=== PATIENT | male | born 1960 | race Two or more races ===

== ENCOUNTER 2024-12-30 14:53 | Outpatient (REF) | payer OTHER, SELFPAY ==
[2024-12-30 16:25] LABS: MANUAL DIFF FLAG NO
[2024-12-30 17:13] LABS: Basophils Absolute Auto 0.1 X10*3/uL (0.0-0.2); Basophils Percent Auto 1.2 % (0-2); Eosinophils Absolute Auto 0.1 X10*3/uL (0.0-0.4); Eosinophils Percent Auto 1.9 % (0-4); Hematocrit 25.7 % (42.0-52.0); Hemoglobin 8.2 g/dl (14.0-18.0); Imm Gran Abs Auto 0.02 X10*3/uL (0.00-0.03); Imm Gran Pct Auto 0.3 % (0.0-0.4); Lymphocytes Absolute Auto 1.4 X10*3/uL (1.2-4.9); Lymphocytes Percent Auto 19.9 % (20-40); Mean Corpuscular HGB Conc 31.9 g/dl (31.0-36.0); Mean Corpuscular Volume 90.8 fL (80.0-98.0); Mean Platelet Volume 10.1 fL (9.4-12.4); Monocytes Absolute Auto 0.4 X10*3/uL (0.1-1.2); Monocytes Percent Auto 5.9 % (2-11); Neutrophils Absolute Auto 5.1 x10*3/uL (2.0-8.3); Neutrophils Percent Auto 70.8 % (45-73); Platelet Count 202 X10*3/uL (160-400); Red Blood Count 2.83 X10*6/uL (4.60-5.80); Red Cell Distribution Width 14.7 % (11.0-16.0); White Blood Count 7.2 X10*3/uL (4.8-10.8)
[2024-12-30 18:19] LABS: Anion Gap 11 (12-20); Blood Urea Nitrogen 33 mg/dL (9-16); Calcium 8.4 mg/dL (8.4-10.2); Carbon Dioxide 24 mmol/L (22-29); Chloride 107 mmol/L (96-108); Estimated Glomerular Filt Rate 23; Iron 49 mcg/dL (45-160); Percent Iron Saturation 29 % (15-50); Phosphorus 3.3 mg/dL (2.7-4.5); Potassium 3.6 mmol/L (3.3-5.1); Sodium 138 mmol/L (135-145); Total Iron Binding Capacity 167 mcg/dL (228-428); Unsaturated Iron Binding 118 ug/dL
[2024-12-30 18:33] LABS: Ferritin 91 ng/mL (20-250)
[2024-12-30 20:21] LABS: Parathyroid Hormone Intact 345.1 pg/mL (8.7-77.1)
[2024-12-31 03:52] LABS: HBc Num1 0.08 S/CO (0.00-0.79); HBsAGNum1 0.31 S/CO (0.00-0.99); Hepatitis B Core Antibody Nonreactive (Nonreactive); Hepatitis B Surface Antigen Negative (Negative)
== END 2024-12-30 14:54 | disposition home or self-care (01) ==
LOC: HO.LAB 14:53
PROVIDERS: PCP Internal Medicine; Visit Provider Internal Medicine Nephrology
DX: N18.4 Chronic kidney disease, stage 4 (severe) (principal); N25.81 Secondary hyperparathyroidism of renal origin; I15.0 Renovascular hypertension; D63.1 Anemia in chronic kidney disease
CPT/HCPCS: 36415; 80051; 82306; 82310; 82565; 82728; 83540; 83970; 84100; 84520; 85025; 86704; 87340; 99202

== ENCOUNTER 2024-12-30 14:53 | Outpatient (AMB) | payer MEDICARE, SELFPAY ==
--- NOTE | 2024-12-30 15:15 | HO.NEPHOV ---
Vital Signs 12/30/24 15:22 Height 6 ft Weight 178 lb BMI 24.1 BP 130/60 Blood Pressure Location Lt brachial Position Sitting Pulse 54 Pulse Source Pulse Oximeter Pulse Oximetry (%) 97 Oxygen Delivery Method Room Air Intake Visit Reasons: CARLI- Okay per -Zia Mathematics Technician Required: No Accompanied by: Significant Other Allergies morphine Allergy (Verified 12/30/24 15:19) Hallucinations bupropion Adverse Reaction (Verified 12/30/24 15:19) Hallucinations HPI Comments Details: I had the pleasure of seeing Mr. Hinson in consultation and transfer of his renal care to me. He has extensive vascular disease healing multiple vascular surgeries as well as right BKA. He has longstanding diabetes with complications including neuropathy, diabetic retinopathy. He has history of hepatitis C secondary to tattoos. He has longstanding hypertension and is on multiple antihypertensive medications. He denies any chest pain, shortness of breath, paroxysmal nocturnal dyspnea, orthopnea, orthostatic symptoms, microscopic hematuria, history of malignancy, recurrent sinusitis, sore throat, hematemesis, melena, urinary symptoms. His serum creatinine has been progressively getting worse and lately it has been close to 3.2. He is tolerating Farxiga well. He tries to maintain good hydration and avoid nonsteroidal anti-inflammatories. He claims to be compliant with his medications [facility] Medical History (Updated 01/16/25 @ 21:48 by Donell Ruiz MD) Urinary urgency Urinary tract infection Urinary hesitancy Tubular adenoma of colon Smoker Seborrheic keratoses SND (sensorineural deafness) Right BKA infection Peripheral vascular disease WENDY (obstructive sleep apnea) Microalbuminuria Lung nodule seen on imaging study Lightheadedness Latent tuberculosis LVH (left ventricular hypertrophy) Abnormal PFTs Hyponatremia Hypertensive retinopathy of both eyes Hyperkalemia Hepatitis C Hearing loss of both ears Hypertension Erectile dysfunction Cataract CKD (chronic kidney disease) Bladder wall thickening BPH (benign prostatic hyperplasia) Anticoagulated Anemia Peripheral neuropathy Diabetes mellitus, type II CVA (cerebral vascular accident) Adrenal nodule Kidney cysts Surgical History Hx of right BKA Family History (Updated 12/30/24 @ 15:17 by Isabel Song MA) Brother Diabetes Mother Diabetes Father Diabetes Social History (Updated 12/30/24 @ 15:16 by Isabel Song MA) Alcohol intake: never Patient Tobacco Use Status: Current someday Tobacco user Review of Systems Const All systems reviewed & are unremarkable except as noted in HPI and below Physical Exam Vital Signs: Last Vital Signs Pulse 54 12/30/24 15:22 BP 130/60 12/30/24 15:22 Pulse Ox 97 12/30/24 15:22 Oxygen Delivery Method Room Air 12/30/24 15:22 BMI result Body Mass Index 24.1 Const General: comfortable and no acute distress Orientation/consciousness: patient oriented x3 HEENT Head: Yes normocephalic Mouth: Normal oral and palatal mucosa present Eyes EOM: EOMs intact bilaterally Neck Neck: Yes supple Resp Auscultation: clear to auscultation bilaterally Cardio Jugular venous distension: no JVD Rate: regular rate GI Palpation (GI): Soft to palpation Auscultation: normal bowel sounds General: Yes no CVA tenderness Back/Spine/Pelvis Back: no CVA tenderness Skin General skin exam: no rashes or lesions noted Neuro General: patient oriented x3 and moves all extremities Extrem Other: R BKA Results Reviewed Nephrology Results: Hgb 8.2 g/dl (14.0-18.0) L 12/30/24 WBC 7.2 X10*3/uL (4.8-10.8) 12/30/24 Plt Count 202 X10*3/uL (160-400) 12/30/24 Sodium 138 mmol/L (135-145) 12/30/24 Potassium 3.6 mmol/L (3.3-5.1) 12/30/24 Chloride 107 mmol/L (96-108) 12/30/24 Carbon Dioxide 24 mmol/L (22-29) 12/30/24 BUN 33 mg/dL (9-16) H 12/30/24 Creatinine 2.83 mg/dL (0.5-1.4) H 12/30/24 Calcium 8.4 mg/dL (8.4-10.2) 12/30/24 Phosphorus 3.3 mg/dL (2.7-4.5) 12/30/24 PTH Intact 345.1 pg/mL (8.7-77.1) H 12/30/24 Assessment & Plan Assessment & Plan (1) CKD (chronic kidney disease) stage 4, GFR 15-29 ml/min: Code(s): N18.4 - Chronic kidney disease, stage 4 (severe) Category: Medical (2) Secondary hyperparathyroidism (of renal origin): Code(s): N25.81 - Secondary hyperparathyroidism of renal origin Category: Medical (3) Hypertension: Code(s): I10 - Essential (primary) hypertension Category: Medical Qualifiers: Hypertension type: renovascular hypertension Qualified Code(s): I15.0 - Renovascular hypertension (4) Anemia in chronic kidney disease (CKD): Code(s): N18.9 - Chronic kidney disease, unspecified; D63.1 - Anemia in chronic kidney disease Category: Medical Qualifiers: Chronic kidney disease stage: stage 4 (GFR 15-29) Qualified Code(s): N18.4 - Chronic kidney disease, stage 4 (severe); D63.1 - Anemia in chronic kidney disease Plan Mr Hinson has advanced chronic kidney disease from diabetes, hypertension as well as vascular disease. His renal disease has been progressive and has a GFR close to 20 mL/minute. He is aware that he needs to go on dialysis when GFR gets close to 10 mL/minute. He is tolerating Farxiga well. His blood pressure is at goal. His volume status is optimal. He is tolerating his sodium bicarbonate. He is on potassium lowering agents. He should remain on low potassium diet. I shall initiate him on activated vitamin-D after replacing vitamin-D. He is a candidate for Procrit which I plan to arrange through my office. His serum creatinine is fairly stable. I shall arrange to have a dialysis access put in , when his GFR is consistently under 20 mL/minute. Currently he does not have any uremic symptoms. He is also closely followed up by [facility] vascular service. Further management is pending evolving data. All his and his 's questions were answered. Follow-up appointment given Orders: Orders Complete Blood Count Auto Diff 12/30/24 N18.4 - Chronic kidney disease, stage 4 (severe) Phosphorus 12/30/24 N18.4 - Chronic kidney disease, stage 4 (severe) Calcium 12/30/24 N18.4 - Chronic kidney disease, stage 4 (severe) Electrolytes 12/30/24 N18.4 - Chronic kidney disease, stage 4 (severe) Blood Urea Nitrogen 12/30/24 N18.4 - Chronic kidney disease, stage 4 (severe) Creatinine 12/30/24 N18.4 - Chronic kidney disease, stage 4 (severe) IRON PROFILE 12/30/24 N18.4 - Chronic kidney disease, stage 4 (severe) Vitamin D 25-OH Total 12/30/24 N18.4 - Chronic kidney disease, stage 4 (severe) Hepatitis B Surface Antigen 12/30/24 N18.4 - Chronic kidney disease, stage 4 (severe) Hepatitis B Core Antibody 12/30/24 N18.4 - Chronic kidney disease, stage 4 (severe) Parathyroid Hormone Intact 12/30/24 N18.4 - Chronic kidney disease, stage 4 (severe) Ferritin 12/30/24 N18.4 - Chronic kidney disease, stage 4 (severe) Coding Level of Care Code New Pt Level 4 (41607) Diagnoses CKD (chronic kidney disease) stage 4, GFR 15-29 ml/min N18.4 Secondary hyperparathyroidism (of renal origin) N25.81 Renovascular hypertension I15.0 Hypertension type: renovascular hypertension Anemia in stage 4 chronic kidney disease N18.4; D63.1 Chronic kidney disease stage: stage 4 (GFR 15-29)
[2024-12-30 15:22] VITALS: BP 130/60; PULSE 54; O2SAT 97; BMI 24.1
== END 2024-12-30 15:42 | disposition home or self-care (01) ==
LOC: HO.HKA 14:53
PROVIDERS: PCP Internal Medicine; Visit Provider Internal Medicine Nephrology
DX: E11.22 Type 2 diabetes mellitus with diabetic chronic kidney disease (principal); N18.4 Chronic kidney disease, stage 4 (severe); N25.81 Secondary hyperparathyroidism of renal origin; D63.1 Anemia in chronic kidney disease; I15.0 Renovascular hypertension
CPT/HCPCS: 99204

== ENCOUNTER 2025-02-01 14:03 | Outpatient (AMB) | payer MEDICARE, SELFPAY ==
[2025-02-01 14:08] VITALS: BP 140/60; PULSE 58; O2SAT 98; BMI 24.1
--- NOTE | 2025-02-01 14:08 | HO.NEPHOV ---
Vital Signs 02/01/25 14:08 Height 6 ft Weight 178 lb BMI 24.1 BP 140/60 H Blood Pressure Location Rt brachial Position Sitting Pulse 58 Pulse Source Pulse Oximeter Pulse Oximetry (%) 98 Oxygen Delivery Method Room Air Intake Visit Reasons: R/S 01/27/2025-Conf Spinning Bath Patroller Required: No Accompanied by: Self / Same As Patient Allergies morphine Allergy (Verified 02/01/25 14:08) Hallucinations bupropion Adverse Reaction (Verified 02/01/25 14:08) Hallucinations HPI Comments Details: I had the pleasure of seeing Mr. Hinson in follow up of his CKD. He has extensive vascular disease healing multiple vascular surgeries as well as right BKA. He has longstanding diabetes with complications including neuropathy, diabetic retinopathy. He has history of hepatitis C secondary to tattoos. He has longstanding hypertension and is on multiple antihypertensive medications. He denies any chest pain, shortness of breath, paroxysmal nocturnal dyspnea, orthopnea, orthostatic symptoms, microscopic hematuria, history of malignancy, recurrent sinusitis, sore throat, hematemesis, melena, urinary symptoms. His serum creatinine has been progressively getting worse and lately it has been stable at 2.83. He is tolerating Farxiga well. He tries to maintain good hydration and avoid nonsteroidal anti-inflammatories. He claims to be compliant with his medications [facility] Medical History (Updated 02/01/25 @ 14:20 by Donell Ruiz MD) Urinary urgency Urinary tract infection Urinary hesitancy Tubular adenoma of colon Smoker Seborrheic keratoses SND (sensorineural deafness) Right BKA infection Peripheral vascular disease WENDY (obstructive sleep apnea) Microalbuminuria Lung nodule seen on imaging study Lightheadedness Latent tuberculosis LVH (left ventricular hypertrophy) Abnormal PFTs Hyponatremia Hypertensive retinopathy of both eyes Hyperkalemia Hepatitis C Hearing loss of both ears Hypertension Erectile dysfunction Cataract CKD (chronic kidney disease) Bladder wall thickening BPH (benign prostatic hyperplasia) Anticoagulated Anemia Peripheral neuropathy Diabetes mellitus, type II CVA (cerebral vascular accident) Adrenal nodule Kidney cysts Surgical History Hx of right BKA Family History Brother Diabetes Mother Diabetes Father Diabetes Social History (Reviewed 02/01/25 @ 14:08 by KWADWO Salgado Alcohol intake: never Patient Tobacco Use Status: Current someday Tobacco user Review of Systems Const All systems reviewed & are unremarkable except as noted in HPI and below Physical Exam Vital Signs: Last Vital Signs Pulse 58 02/01/25 14:08 BP 140/60 H 02/01/25 14:08 Pulse Ox 98 02/01/25 14:08 Oxygen Delivery Method Room Air 02/01/25 14:08 BMI result Body Mass Index 24.1 Const General: comfortable and no acute distress Orientation/consciousness: patient oriented x3 HEENT Head: Yes normocephalic Mouth: Normal oral and palatal mucosa present Eyes EOM: EOMs intact bilaterally Neck Neck: Yes supple Resp Auscultation: clear to auscultation bilaterally Cardio Jugular venous distension: no JVD Rate: regular rate GI Palpation (GI): Soft to palpation Auscultation: normal bowel sounds General: Yes no CVA tenderness Back/Spine/Pelvis Back: no CVA tenderness Skin General skin exam: no rashes or lesions noted Neuro General: patient oriented x3 and moves all extremities Office Meds epoetin delbert-epbx 10,000 unit/mL injection solution Performing Provider: Donell Ruiz MD Performing Location: [facility] [place] [facility] Administered by: Donell Ruiz MD on 02/01/25 14:21 Dose Route Admin Location Dispensed Lot Number Expiration Date [facility] Public [employer] Dietitian 20,000 unit subcut LUE 2 mL [id number] 04/04/26 6975-6223-58 [employer] Results Reviewed Nephrology Results: Hgb 8.2 g/dl (14.0-18.0) L 12/30/24 WBC 7.2 X10*3/uL (4.8-10.8) 12/30/24 Plt Count 202 X10*3/uL (160-400) 12/30/24 Sodium 138 mmol/L (135-145) 12/30/24 Potassium 3.6 mmol/L (3.3-5.1) 12/30/24 Chloride 107 mmol/L (96-108) 12/30/24 Carbon Dioxide 24 mmol/L (22-29) 12/30/24 BUN 33 mg/dL (9-16) H 12/30/24 Creatinine 2.83 mg/dL (0.5-1.4) H 12/30/24 Calcium 8.4 mg/dL (8.4-10.2) 12/30/24 Phosphorus 3.3 mg/dL (2.7-4.5) 12/30/24 PTH Intact 345.1 pg/mL (8.7-77.1) H 12/30/24 Assessment & Plan Assessment & Plan (1) Secondary hyperparathyroidism (of renal origin): Code(s): N25.81 - Secondary hyperparathyroidism of renal origin Category: Medical (2) CKD (chronic kidney disease) stage 4, GFR 15-29 ml/min: Code(s): N18.4 - Chronic kidney disease, stage 4 (severe) Category: Medical (3) Hypertension: Code(s): I10 - Essential (primary) hypertension Category: Medical Qualifiers: Hypertension type: renovascular hypertension Qualified Code(s): I15.0 - Renovascular hypertension (4) Anemia in chronic kidney disease (CKD): Code(s): N18.9 - Chronic kidney disease, unspecified; D63.1 - Anemia in chronic kidney disease Category: Medical Qualifiers: Chronic kidney disease stage: stage 4 (GFR 15-29) Qualified Code(s): N18.4 - Chronic kidney disease, stage 4 (severe); D63.1 - Anemia in chronic kidney disease (5) Vitamin D deficiency: Code(s): E55.9 - Vitamin D deficiency, unspecified Category: Medical Plan Mr Hinson has advanced chronic kidney disease from diabetes, hypertension as well as vascular disease. His renal disease has been progressive and has a GFR close to 20 mL/minute. He is aware that he needs to go on dialysis when GFR gets close to 10 mL/minute. He is tolerating Farxiga well. His blood pressure is at goal. His volume status is optimal. He is tolerating his sodium bicarbonate. He is on potassium lowering agents. He should remain on low potassium diet. I started him on Vitamin D 16826 U once a week. I shall initiate him on activated vitamin-D after replacing vitamin-D. He gave him 00952 U Procrit today my office. His serum creatinine is fairly stable. I shall arrange to have a dialysis access put in , when his GFR is consistently under 20 mL/minute. Currently he does not have any uremic symptoms. He is also closely followed up by [facility] vascular service. Further management is pending evolving data. All his and his 's questions were answered. Follow-up appointment given Orders: Orders AMB Epoetin Injection Practice Supplied Today D63.1 - Anemia in chronic kidney disease, N18.4 - Chronic kidney disease, stage 4 (severe) Blood Urea Nitrogen 4 Weeks D63.1 - Anemia in chronic kidney disease, E55.9 - Vitamin D deficiency, unspecified, I15.0 - Renovascular hypertension, N18.4 - Chronic kidney disease, stage 4 (severe), N25.81 - Secondary hyperparathyroidism of renal origin Complete Blood Count Auto Diff 4 Weeks D63.1 - Anemia in chronic kidney disease, E55.9 - Vitamin D deficiency, unspecified, I15.0 - Renovascular hypertension, N18.4 - Chronic kidney disease, stage 4 (severe), N25.81 - Secondary hyperparathyroidism of renal origin Creatinine 4 Weeks D63.1 - Anemia in chronic kidney disease, E55.9 - Vitamin D deficiency, unspecified, I15.0 - Renovascular hypertension, N18.4 - Chronic kidney disease, stage 4 (severe), N25.81 - Secondary hyperparathyroidism of renal origin Electrolytes 4 Weeks D63.1 - Anemia in chronic kidney disease, E55.9 - Vitamin D deficiency, unspecified, I15.0 - Renovascular hypertension, N18.4 - Chronic kidney disease, stage 4 (severe), N25.81 - Secondary hyperparathyroidism of renal origin Coding Level of Care Code Est Pt Level 4 (13131) Diagnoses Secondary hyperparathyroidism (of renal origin) N25.81 CKD (chronic kidney disease) stage 4, GFR 15-29 ml/min N18.4 Renovascular hypertension I15.0 Hypertension type: renovascular hypertension Anemia in stage 4 chronic kidney disease N18.4; D63.1 Chronic kidney disease stage: stage 4 (GFR 15-29) Vitamin D deficiency E55.9
--- OUTSIDE RECORDS SUMMARY | 2025-02-01 15:16 | XMS_ITS | Encounter Summary ---
Author Organization [facility] [address] Address [address] [place] [address] Care Team Providers Care Conflict Resolution Professional Name Role Phone Travis Au MD Primary Care Provider [phone] Encounter Details Date Type Department Care Team (Late st Contact Info) Description 09/13/2024 Lab Requisition [facility] - Main Lab [address] [facility] [place] [address] Travis Au MD [address] [place] [address] [address] [facility] [phone] Chronic kidney disease, unspecified Social History Tobacco Use Types Packs/Day Years Used Date Smoking Tobacco: Never Assessed Sex and Gender Information Value Date Recorded Sex Assigned at Not on file Legal Sex Male 9:08 PM EST Gender Identity Not on file Sexual Orientation Not on file documented as of this encounter Plan of Treatment Not on file documented as of this encounter Visit Diagnoses Diagnosis Chronic kidney disease, unspecified documented in this encounter Care Teams Conflict Resolution Professional Relationship Specialty Start Date End Date Travis Au MD [address] [facility] [address] [facility] [phone] PCP - General Family Medicine 08/22/24 documented as of this encounter
--- OUTSIDE RECORDS SUMMARY | 2025-02-01 15:16 | XMS_ITS | Encounter Summary ---
Author Organization [facility] Address [address] [place] [address] Care Team Providers Care Eastern Philosophy Professor Name Role Phone Travis Au MD Primary Care Provider [phone] Encounter Details Date Type Department Care Team (Latest Contact Info) Description 10/25/2024 Lab Requisition [facility] - Main Lab [address] [facility] [place] [address] Brandon Mckeon MD [address] [place] [address] Type 2 diabetes mellitus without complications (CMS/HCC V24, CMS/HCC V28) Social History Tobacco Use Types Packs/Day Years Used Date Smoking Tobacco: Never Assessed Sex and Gender Information Value Date Recorded Sex Assigned at Not on file Legal Sex Male 9:08 PM EST Gender Identity Not on file Sexual Orientation Not on file documented as of this encounter Plan of Treatment Not on file documented as of this encounter Visit Diagnoses Diagnosis Type 2 diabetes mellitus without complications (CMS/HCC V24, CMS/HCC V28) documented in this encounter Care Teams Eastern Philosophy Professor Relationship Specialty Start Date End Date Travis Au MD [address] [facility] [address] [place], [phone] PCP - General Family Medicine 08/22/24 documented as of this encounter
--- OUTSIDE RECORDS SUMMARY | 2025-02-01 15:16 | XMS_ITS | Encounter Summary ---
Author Organization [facility], Address [address] [place] [address] Phone Care Team Providers Care Shop Repairer Name Role Phone Michelle Long MD Primary Care Provider [phone] Reason for Visit * Reason Comments Med Refill Encounter Details Date Type Department Care Team (Late st Contact Info) Description 01/01/2025 Refill [facility], [address] [place] [address] Phill Mc MD [address] [facility] [place] [id number] Social History Tobacco Use Types Packs/Day Years Used Date Smoking Tobacco: Former Smokeless Tobacco: Never Sex and Gender Information Value Date Recorded Sex Assigned at Not on file Legal Sex Male 2:06 PM EST Gender Identity Not on file Sexual Orientation Not on file documented as of this encounter Plan of Treatment Not on file documented as of this encounter Visit Diagnoses Not on filedocumented in this encounter Care Teams Shop Repairer Relationship Specialty Start Date End Date Michelle Long MD [address] [place] [address] PCP - General Internal Medicine 10/06/23 documented as of this encounter
--- OUTSIDE RECORDS SUMMARY | 2025-02-01 15:16 | XMS_ITS | Encounter Summary ---
Author Organization [facility] Address [address] [place] [address] Care Team Providers Care Surveillance Investigator Name Role Phone Travis Au MD Primary Care Provider [phone] Encounter Details Date Type Department Care Team (Late st Contact Info) Description 08/22/2024 Lab Requisition [facility] - Main Lab [address] [facility] [place] [address] Travis Au MD [address] [place] [address] [address] [facility] [phone] Type 2 diabetes mellitus without complications (CMS/HCC V24, CMS/HCC V28); Unspecified atrial fibrillation (CMS/HCC V24, CMS/HCC V28) Social History Tobacco Use Types Packs/Day Years Used Date Smoking Tobacco: Never Assessed Sex and Gender Information Value Date Recorded Sex Assigned at Not on file Legal Sex Male 9:08 PM EST Gender Identity Not on file Sexual Orientation Not on file documented as of this encounter Plan of Treatment Not on file documented as of this encounter Procedures Procedure Name Priority Date/Time Associated Diagnosis Comments CBC WITH AUTO DIFFERENTIAL Routine 08/22/2024 5:16 AM EST Type 2 diabetes mellitus without complications (CMS/HCC) Unspecified atrial fibrillation (CMS/HCC) CBC AND DIFFERENTIAL Routine 08/22/2024 5:16 AM EST Type 2 diabetes mellitus without complications (CMS/HCC) Unspecified atrial fibrillation (CMS/HCC) HEMOGLOBIN A1C Routine 08/22/2024 5:16 AM EST Type 2 diabetes mellitus without complications (CMS/HCC) Unspecified atrial fibrillation (CMS/HCC) COMPREHENSIVE METABOLIC PANEL Routine 08/22/2024 5:16 AM EST Type 2 diabetes mellitus without complications (CMS/HCC) Unspecified atrial fibrillation (CMS/HCC) documented in this encounter Results * Hemoglobin A1c (08/22/2024 5:16 AM EST) [facility] Hemoglobin A1C 6.4 <6.5 % LAB CHEMISTRY METHOD 08/23/2024 7:38 PM EST [facility] Mean Bld Glu Estim. 137 mg/dL LAB CHEMISTRY METHOD 08/23/2024 7:38 PM EST [facility] Blood Venous blood specimen / Unknown 08/22/2024 5:16 AM EST 08/22/2024 7:59 AM EST us Travis Au MD LAB BLOOD ORDERABLES Final Resul t [facility] [address] [place] [address], [place] [phone] * (ABNORMAL) CBC auto differential (08/22/2024 5:16 AM EST) [facility] WBC 7.0 4.8 - 10.8 K/mcL LAB HEMETOLOGY METHOD 08/22/2024 8:13 AM [facility] LAB RBC 3.30(L) 4.50 - 5.50 M/[facility] LAB HEMETOLOGY METHOD 08/22/2024 8:13 AM [facility] Hemoglobin 9.8(L) 13.5 - 17.5 g/dL LAB HEMETOLOGY METHOD 08/22/2024 8:13 AM [facility] Hematocrit 31.2(L) 42.0 - 54.0 % LAB HEMETOLOGY METHOD 08/22/2024 8:13 AM [facility] MCV 94.8 79.0 - 98.0 FL LAB HEMETOLOGY METHOD 08/22/2024 8:13 AM [facility] MCH 29.8 27.0 - 32.0 pcg LAB HEMETOLOGY METHOD 08/22/2024 8:13 AM [facility] LAB MCHC 31.4(L) 32.0 - 37.0 g/dL LAB HEMETOLOGY METHOD 08/22/2024 8:13 AM [facility] RDW 13.2 11.0 - 15.0 % LAB HEMETOLOGY METHOD 08/22/2024 8:13 AM [facility] Platelets 232 130 - 400 K/mcL LAB HEMETOLOGY METHOD 08/22/2024 8:13 AM [facility] MPV 10.9 7.0 - 11.0 FL LAB HEMETOLOGY METHOD 08/22/2024 8:13 AM [facility] NRBC 0.0 <1.0 % LAB HEMETOLOGY METHOD 08/22/2024 8:13 AM [facility] NRBC Absolute 0.00 <0.10 K/mcL LAB HEMETOLOGY METHOD 08/22/2024 8:13 AM [facility] Neutrophils Relative 61.3 % LAB HEMETOLOGY METHOD 08/22/2024 8:13 AM [facility] Lymphocytes Relative 24.5 % LAB HEMETOLOGY METHOD 08/22/2024 8:13 AM [facility] Monocytes Relative 5.9 % LAB HEMETOLOGY METHOD 08/22/2024 8:13 AM [facility] Eosinophils Relative 6.6 % LAB HEMETOLOGY METHOD 08/22/2024 8:13 AM [facility] Basophils Relative 1.3 % LAB HEMETOLOGY METHOD 08/22/2024 8:13 AM [facility] Immature Granulocytes Relative 0.4 % LAB HEMETOLOGY METHOD 08/22/2024 8:13 AM [facility] Neutrophils Absolute 4.29 1.50 - 7.00 K/mcL LAB HEMETOLOGY METHOD 08/22/2024 8:13 AM EST [facility] Lymphocytes Absolute 1.71 1.00 - 5.00 K/[facility] LAB HEMETOLOGY METHOD 08/22/2024 8:13 AM [facility] Monocytes Absolute 0.41 0.20 - 1.00 K/mcL LAB HEMETOLOGY METHOD 08/22/2024 8:13 AM EST [facility] Eosinophils Absolute 0.46 0.00 - 0.50 K/[facility] LAB HEMETOLOGY METHOD 08/22/2024 8:13 AM [facility] Basophils Absolute 0.09 0.00 - 0.20 K/[facility] LAB HEMETOLOGY METHOD 08/22/2024 8:13 AM [facility] Immature Granulocytes Absolute 0.03 0.00 - 0.03 K/[facility] LAB HEMETOLOGY METHOD 08/22/2024 8:13 AM [facility] Blood Venous blood specimen / Unknown Venipuncture / Unknown 08/22/2024 5:16 AM EST 08/22/2024 7:22 AM EST us Travis Au MD LAB BLOOD ORDERABLES Final Resul t [facility] [address] [place] [address], * (ABNORMAL) Comprehensive metabolic panel (08/22/2024 5:16 AM EST) Sodium 139 133 - 145 mmol/L LAB CHEMISTRY METHOD 08/22/2024 9:02 AM [facility] Potassium 4.2 3.5 - 5.5 mmol/L LAB CHEMISTRY METHOD 08/22/2024 9:02 AM [facility] Chloride 108 96 - 110 mmol/L LAB CHEMISTRY METHOD 08/22/2024 9:02 AM [facility] CO2 23 21 - 32 mmol/L LAB CHEMISTRY METHOD 08/22/2024 9:02 AM [facility] Anion Gap 8 3 - 11 LAB CHEMISTRY METHOD 08/22/2024 9:02 AM [facility] Glucose 116(H) 70 - 100 mg/dL LAB CHEMISTRY METHOD 08/22/2024 9:02 AM [facility] BUN 47(H) 5 - 25 mg/dL LAB CHEMISTRY METHOD 08/22/2024 9:02 AM [facility] Creatinine 3.05(H) 0.70 - 1.30 mg/dL LAB CHEMISTRY METHOD 08/22/2024 9:02 AM [facility] eGFR 22(L) >=60 mL/min/1. 73m2 LAB CHEMISTRY METHOD 08/22/2024 9:02 AM [facility] Comment:Calculation based on the??Chronic Kidney Disease Epidemiology Collaboration (CKD-EPI) equation refit??without adjustment for race. BUN/Creatinine Ratio 15.4 LAB CHEMISTRY METHOD 08/22/2024 9:02 AM [facility] Calcium 8.8 8.5 - 10.5 mg/dL LAB CHEMISTRY METHOD 08/22/2024 9:02 AM [facility] AST (SGOT) 13 10 - 42 unit/L LAB CHEMISTRY METHOD 08/22/2024 9:02 AM [facility] ALT (SGPT) 19 10 - 60 unit/L LAB CHEMISTRY METHOD 08/22/2024 9:02 AM [facility] Alkaline Phosphatase 80 42 - 121 unit/L LAB CHEMISTRY METHOD 08/22/2024 9:02 AM [facility] Total Protein 6.4 6.0 - 8.0 g/dL LAB CHEMISTRY METHOD 08/22/2024 9:02 AM [facility] Albumin 3.1(L) 3.2 - 5.0 g/dL LAB CHEMISTRY METHOD 08/22/2024 9:02 AM EST [facility] Total Bilirubin 0.4 0.0 - 1.4 mg/dL LAB CHEMISTRY METHOD 08/22/2024 9:02 AM EST [facility] Blood Venous blood specimen / Unknown Venipuncture / Unknown 08/22/2024 5:16 AM EST 08/22/2024 7:22 AM EST us Travis Au MD LAB BLOOD ORDERABLES Final Resul t [facility] [address] [place] [address], documented in this encounter Visit Diagnoses Diagnosis Type 2 diabetes mellitus without complications (CMS/HCC V24, CMS/HCC V28) Unspecified atrial fibrillation (CMS/HCC V24, CMS/HCC V28) documented in this encounter Care Teams Surveillance Investigator Relationship Specialty Start Date End Date Travis Au MD [address] [place] [address], [phone] PCP - General Family Medicine 08/22/24 documented as of this encounter
--- OUTSIDE RECORDS SUMMARY | 2025-02-01 15:16 | XMS_ITS | Encounter Summary ---
Author Organization [facility] Address [address] [place] [address] Care Team Providers Care Flatwork Supervisor Name Role Phone Travis Au MD Primary Care Provider [phone] Encounter Details Date Type Department Care Team (Late st Contact Info) Description 09/14/2024 Lab Requisition [facility] - Main Lab [address] [facility] [place] [address] Brandon Mckeon MD [address] [place] [address] Chronic kidney disease, unspecified Social History Tobacco [...] Procedure Name Priority Date/Time Associated Diagnosis Comments COMPLETE BLOOD COUNT Routine 09/15/2024 4:53 AM EST Chronic kidney disease, unspecified BASIC METABOLIC PANEL Routine 09/15/2024 4:53 AM EST Chronic kidney disease, unspecified documented in this encounter Results * (ABNORMAL) Basic metabolic panel (09/15/2024 4:53 AM EST) Sodium 138 133 - 145 mmol/L LAB CHEMISTRY METHOD 09/15/2024 9:37 AM EST [facility] Potassium 5.3 3.5 - 5.5 mmol/L LAB CHEMISTRY METHOD 09/15/2024 9:37 AM EST [facility] Chloride 110 96 - 110 mmol/L LAB CHEMISTRY METHOD 09/15/2024 9:37 AM [facility] CO2 19(L) 21 - 32 mmol/L LAB CHEMISTRY METHOD 09/15/2024 9:37 AM [facility] Anion Gap 9 3 - 11 LAB CHEMISTRY METHOD 09/15/2024 9:37 AM [facility] Glucose 98 70 - 100 mg/dL LAB CHEMISTRY METHOD 09/15/2024 9:37 AM [facility] BUN 46(H) 5 - 25 mg/dL LAB CHEMISTRY METHOD 09/15/2024 9:37 AM [facility] Creatinine 3.02(H) 0.70 - 1.30 mg/dL LAB CHEMISTRY METHOD 09/15/2024 9:37 AM [facility] eGFR 22(L) >=60 mL/min/1. 73m2 LAB CHEMISTRY METHOD 09/15/2024 9:37 AM [facility] Comment:Calculation based on the??Chronic Kidney Disease Epidemiology Collaboration (CKD-EPI) equation refit??without adjustment for race. BUN/Creatinine Ratio 15.2 LAB CHEMISTRY METHOD 09/15/2024 9:37 AM [facility] Calcium 8.8 8.5 - 10.5 mg/dL LAB CHEMISTRY METHOD 09/15/2024 9:37 AM [facility] Blood Venous blood specimen / Unknown Venipuncture / Unknown 09/15/2024 4:53 AM EST 09/15/2024 9:01 AM EST us Brandon Mckeon MD LAB BLOOD ORDERABLES Final Resu lt [facility] [address] [place] [address], [place] [phone] * (ABNORMAL) Complete blood count (09/15/2024 4:53 AM EST) WBC 9.2 4.8 - 10.8 K/mcL LAB HEMETOLOGY METHOD 09/15/2024 9:10 AM [facility] RBC 3.00(L) 4.50 - 5.50 M/mcL LAB HEMETOLOGY METHOD 09/15/2024 9:10 AM [facility] Hemoglobin 8.9(L) 13.5 - 17.5 g/dL LAB HEMETOLOGY METHOD 09/15/2024 9:10 AM [facility] Hematocrit 28.5(L) 42.0 - 54.0 % LAB HEMETOLOGY METHOD 09/15/2024 9:10 AM [facility] MCV 95.6 79.0 - 98.0 FL LAB HEMETOLOGY METHOD 09/15/2024 9:10 AM [facility] MCH 29.9 27.0 - 32.0 pcg LAB HEMETOLOGY METHOD 09/15/2024 9:10 AM [facility] MCHC 31.2(L) 32.0 - 37.0 g/dL LAB HEMETOLOGY METHOD 09/15/2024 9:10 AM [facility] RDW 13.8 11.0 - 15.0 % LAB HEMETOLOGY METHOD 09/15/2024 9:10 AM [facility] Platelets 217 130 - 400 K/mcL LAB HEMETOLOGY METHOD 09/15/2024 9:10 AM [facility] MPV 11.0 7.0 - 11.0 FL LAB HEMETOLOGY METHOD 09/15/2024 9:10 AM [facility] NRBC 0.0 <1.0 % LAB HEMETOLOGY METHOD 09/15/2024 9:10 AM [facility] NRBC Absolute 0.00 <0.10 K/mcL LAB HEMETOLOGY METHOD 09/15/2024 9:10 AM [facility] Blood Venous blood specimen / Unknown Venipuncture / Unknown 09/15/2024 4:53 AM EST 09/15/2024 9:01 AM EST us Brandon Mckeon MD LAB BLOOD ORDERABLES Final Resu lt [facility] [address] [place] [address], documented in this encounter Visit Diagnoses Diagnosis Chronic kidney disease, unspecified documented in this encounter Care Teams Flatwork Supervisor Relationship Specialty Start Date End Date Travis Au MD [address] [place] [address], [phone] PCP - General Family Medicine 08/22/24 documented as of this encounter
--- OUTSIDE RECORDS SUMMARY | 2025-02-01 15:16 | XMS_ITS | Encounter Summary ---
Author Organization [facility] Address [address] [place] [address] Care Team Providers Care Frit Mixer Name Role Phone Travis Au MD Primary Care Provider [phone] Encounter Details Date Type Department Care Team (Latest Contact Info) Description 10/26/2024 Lab Requisition [facility] - Main Lab [address] [facility] [place] [address] Brandon Mckeon MD [address] [place] [address] Chronic kidney disease, unspecified; Type 2 diabetes mellitus without complications (CMS/HCC [...] Associated Diagnosis Comments COMPLETE BLOOD COUNT Routine 10/27/2024 6:57 AM EST Chronic kidney disease, unspecified Type 2 diabetes mellitus without complications (CMS/HCC) BASIC METABOLIC PANEL Routine 10/27/2024 6:57 AM EST Chronic kidney disease, unspecified Type 2 diabetes mellitus without complications (CMS/HCC) documented in this encounter Results * (ABNORMAL) Basic metabolic panel (10/27/2024 6:57 AM EST) Sodium 137 133 - 145 mmol/L LAB CHEMISTRY METHOD 10/27/2024 9:41 AM EST [facility] Potassium 5.6(H) 3.5 - 5.5 mmol/L LAB CHEMISTRY METHOD 10/27/2024 9:41 AM EST [facility] Chloride 110 96 - 110 mmol/L LAB CHEMISTRY METHOD 10/27/2024 9:41 AM [facility] CO2 19(L) 21 - 32 mmol/L LAB CHEMISTRY METHOD 10/27/2024 9:41 AM EST [facility] Anion Gap 8 3 - 11 LAB CHEMISTRY METHOD 10/27/2024 9:41 AM [facility] Glucose 92 70 - 100 mg/dL LAB CHEMISTRY METHOD 10/27/2024 9:41 AM [facility] BUN 55(H) 5 - 25 mg/dL LAB CHEMISTRY METHOD 10/27/2024 9:41 AM [facility] Creatinine 3.72(H) 0.70 - 1.30 mg/dL LAB CHEMISTRY METHOD 10/27/2024 9:41 AM EST [facility] eGFR 17(L) >=60 mL/min/1. 73m2 LAB CHEMISTRY METHOD 10/27/2024 9:41 AM EST [facility] Comment:Calculation based on the??Chronic Kidney Disease Epidemiology Collaboration (CKD-EPI) equation refit??without adjustment for race. BUN/Creatinine Ratio 14.8 LAB CHEMISTRY METHOD 10/27/2024 9:41 AM EST [facility] Calcium 8.2(L) 8.5 - 10.5 mg/dL LAB CHEMISTRY METHOD 10/27/2024 9:41 AM [facility] Blood Venous blood specimen / Unknown Venipuncture / Unknown 10/27/2024 6:57 AM EST 10/27/2024 8:20 AM EST us Branodn Mckeon MD LAB BLOOD ORDERABLES Final Resu lt [facility] [address] [place] [address], * (ABNORMAL) Complete blood count (10/27/2024 6:57 AM EST) [facility] WBC 10.0 4.8 - 10.8 K/mcL LAB HEMETOLOGY METHOD 10/27/2024 9:21 AM [facility] RBC 2.90(L) 4.50 - 5.50 M/mcL LAB HEMETOLOGY METHOD 10/27/2024 9:21 AM [facility] Hemoglobin 8.6(L) 13.5 - 17.5 g/dL LAB HEMETOLOGY METHOD 10/27/2024 9:21 AM [facility] Hematocrit 28.1(L) 42.0 - 54.0 % LAB HEMETOLOGY METHOD 10/27/2024 9:21 AM [facility] MCV 95.6 79.0 - 98.0 FL LAB HEMETOLOGY METHOD 10/27/2024 9:21 AM [facility] MCH 29.3 27.0 - 32.0 pcg LAB HEMETOLOGY METHOD 10/27/2024 9:21 AM [facility] MCHC 30.6(L) 32.0 - 37.0 g/dL LAB HEMETOLOGY METHOD 10/27/2024 9:21 AM [facility] RDW 13.9 11.0 - 15.0 % LAB HEMETOLOGY METHOD 10/27/2024 9:21 AM [facility] Platelets 354 130 - 400 K/mcL LAB HEMETOLOGY METHOD 10/27/2024 9:21 AM [facility] MPV 10.1 7.0 - 11.0 FL LAB HEMETOLOGY METHOD 10/27/2024 9:21 AM [facility] NRBC 0.0 <1.0 % LAB HEMETOLOGY METHOD 10/27/2024 9:21 AM EST [facility] NRBC Absolute 0.00 <0.10 K/mcL LAB HEMETOLOGY METHOD 10/27/2024 9:21 AM EST [facility] Blood Venous blood specimen / Unknown Venipuncture / Unknown 10/27/2024 6:57 AM EST 10/27/2024 8:20 AM EST us Brandon Mckeon MD LAB BLOOD ORDERABLES Final Resu lt [facility] [address] [place] [address], [place] [phone] documented in this encounter Visit Diagnoses Diagnosis Chronic kidney disease, unspecified Type 2 diabetes mellitus without complications (CMS/HCC V24, CMS/HCC V28) documented in this encounter Care Teams Frit Mixer Relationship Specialty Start Date End Date Travis Au MD [address] [place] [address], [phone] PCP - General Family Medicine 08/22/24 documented as of this encounter
--- OUTSIDE RECORDS SUMMARY | 2025-02-01 15:16 | XMS_ITS | Encounter Summary ---
Author Organization [facility] Address [address] [place] [address] Care Team Providers Care Art Specialist Name Role Phone Travis Au MD Primary Care Provider [phone] Encounter Details Date Type Department Care Team (Late st Contact Info) Description 10/03/2024 Lab Requisition [facility] - Main Lab [address] [facility] [place] [address] Brandon Mckeon MD [address] [place] [address] Hyperkalemia; Hypertensive urgency Social History Tobacco Use Types Packs/Day Years [...] Associated Diagnosis Comments COMPLETE BLOOD COUNT Routine 10/03/2024 5:32 AM EST Hyperkalemia Hypertensive urgency COMPREHENSIVE METABOLIC PANEL Routine 10/03/2024 5:32 AM EST Hyperkalemia Hypertensive urgency documented in this encounter Results * (ABNORMAL) Comprehensive metabolic panel (10/03/2024 5:32 AM EST) Sodium 135 133 - 145 mmol/L LAB CHEMISTRY METHOD 10/03/2024 9:47 AM EST [facility] Potassium 5.6(H) 3.5 - 5.5 mmol/L LAB CHEMISTRY METHOD 10/03/2024 9:47 AM [facility] Chloride 109 96 - 110 mmol/L LAB CHEMISTRY METHOD 10/03/2024 9:47 AM [facility] CO2 20(L) 21 - 32 mmol/L LAB CHEMISTRY METHOD 10/03/2024 9:47 AM [facility] Anion Gap 6 3 - 11 LAB CHEMISTRY METHOD 10/03/2024 9:47 AM [facility] Glucose 111(H) 70 - 100 mg/dL LAB CHEMISTRY METHOD 10/03/2024 9:47 AM [facility] BUN 58(H) 5 - 25 mg/dL LAB CHEMISTRY METHOD 10/03/2024 9:47 AM [facility] Creatinine 2.91(H) 0.70 - 1.30 mg/dL LAB CHEMISTRY METHOD 10/03/2024 9:47 AM [facility] eGFR 23(L) >=60 mL/min/1. 73m2 LAB CHEMISTRY METHOD 10/03/2024 9:47 AM [facility] Comment:Calculation based on the??Chronic Kidney Disease Epidemiology Collaboration (CKD-EPI) equation refit??without adjustment for race. BUN/Creatinine Ratio 19.9 LAB CHEMISTRY METHOD 10/03/2024 9:47 AM [facility] Calcium 8.5 8.5 - 10.5 mg/dL LAB CHEMISTRY METHOD 10/03/2024 9:47 AM [facility] AST (SGOT) 14 10 - 42 unit/L LAB CHEMISTRY METHOD 10/03/2024 9:47 AM [facility] ALT (SGPT) 20 10 - 60 unit/L LAB CHEMISTRY METHOD 10/03/2024 9:47 AM [facility] Alkaline Phosphatase 57 42 - 121 unit/L LAB CHEMISTRY METHOD 10/03/2024 9:47 AM [facility] Total Protein 6.5 6.0 - 8.0 g/dL LAB CHEMISTRY METHOD 10/03/2024 9:47 AM [facility] Albumin 3.0(L) 3.2 - 5.0 g/dL LAB CHEMISTRY METHOD 10/03/2024 9:47 AM [facility] Total Bilirubin 0.2 0.0 - 1.4 mg/dL LAB CHEMISTRY METHOD 10/03/2024 9:47 AM [facility] Blood Venous blood specimen / Unknown Venipuncture / Unknown 10/03/2024 5:32 AM EST 10/03/2024 8:56 AM EST us Brandon Mckeon MD LAB BLOOD ORDERABLES Final Resu lt [facility] [address] [place] [address], [place] [phone] * (ABNORMAL) Complete blood count (10/03/2024 5:32 AM EST) WBC 10.1 4.8 - 10.8 K/mcL LAB HEMETOLOGY METHOD 10/03/2024 9:20 AM [facility] RBC 3.10(L) 4.50 - 5.50 M/mcL LAB HEMETOLOGY METHOD 10/03/2024 9:20 AM [facility] Hemoglobin 9.3(L) 13.5 - 17.5 g/dL LAB HEMETOLOGY METHOD 10/03/2024 9:20 AM [facility] Hematocrit 29.4(L) 42.0 - 54.0 % LAB HEMETOLOGY METHOD 10/03/2024 9:20 AM [facility] MCV 95.8 79.0 - 98.0 FL LAB HEMETOLOGY METHOD 10/03/2024 9:20 AM [facility] MCH 30.3 27.0 - 32.0 pcg LAB HEMETOLOGY METHOD 10/03/2024 9:20 AM [facility] MCHC 31.6(L) 32.0 - 37.0 g/dL LAB HEMETOLOGY METHOD 10/03/2024 9:20 AM EST [facility] RDW 13.7 11.0 - 15.0 % LAB HEMETOLOGY METHOD 10/03/2024 9:20 AM [facility] Platelets 281 130 - 400 K/mcL LAB HEMETOLOGY METHOD 10/03/2024 9:20 AM EST [facility] MPV 10.4 7.0 - 11.0 FL LAB HEMETOLOGY METHOD 10/03/2024 9:20 AM EST [facility] NRBC 0.0 <1.0 % LAB HEMETOLOGY METHOD 10/03/2024 9:20 AM [facility] NRBC Absolute 0.00 <0.10 K/mcL LAB HEMETOLOGY METHOD 10/03/2024 9:20 AM EST [facility] Blood Venous blood specimen / Unknown Venipuncture / Unknown 10/03/2024 5:32 AM EST 10/03/2024 8:56 AM EST us Brandon Mckeon MD LAB BLOOD ORDERABLES Final Resu lt [facility] [address] [place] [address], documented in this encounter Visit Diagnoses Diagnosis Hyperkalemia Hyperpotassemia Hypertensive urgency documented in this encounter Care Teams Art Specialist Relationship Specialty Start Date End Date Travis Au MD [address] [place] [address], [phone] PCP - General Family Medicine 08/22/24 documented as of this encounter
--- OUTSIDE RECORDS SUMMARY | 2025-02-01 15:16 | XMS_ITS | Encounter Summary ---
Author Organization [facility], Address [address] [place] [address] Phone Care Team Providers Care Lpn Or Medical Assistant Name Role Phone Michelle Long MD Primary Care Provider [phone] Encounter Details Date Type Department Care Team (Late st Contact Info) Description 11/23/2024 Documentation Only [facility], [address] [place] [address] [place] [address] [place] [address] Social History Tobacco Use Types Packs/Day Years [...] on filedocumented in this encounter Care Teams Lpn Or Medical Assistant Relationship Specialty Start Date End Date Michelle Long MD [address] [place], [place] PCP - General Internal Medicine 10/06/23 documented as of this encounter
--- OUTSIDE RECORDS SUMMARY | 2025-02-01 15:16 | XMS_ITS | Clinical Summary ---
Author Organization [facility] Address [address] [facility] [address] [place] [address] Phone Care Team Providers Care Windows Technical Specialist Name Role Phone Michelle Long MD Primary Care Provider [phone] Allergies Active Allergy Reactions Criticality Noted Date Comments Morphine And Codeine 05/08/2021 Medications amLODIPine (NORVASC) 10 MG tablet Take 10 mg by mouth 1 (one) time each day 1 Active clopidogrel (PLAVIX) 75 MG tablet Take 75 mg by mouth 1 (one) time each day 1 Active cyclobenzaprine (FLEXERIL) 5 MG tablet Take 10 mg by mouth every 8 (eight) hours if needed 1 Active doxazosin (CARDURA) 2 MG tablet Take 4 mg by mouth 2 (two) times a day 1 Active enalapril (VASOTEC) 20 MG tablet Take 20 mg by mouth 1 (one) time each day 1 Active hydrALAZINE 25 MG tablet Take 50 mg by mouth every 6 (six) hours if needed 1 Active aspirin (ST ABEL) 81 MG EC tablet Take 81 mg by mouth 1 (one) time each day Active atorvastatin (LIPITOR) 80 MG tablet Take 80 mg by mouth 1 (one) time each day Active gabapentin (NEURONTIN) 300 MG capsule Take 300 mg by mouth 3 (three) times a day Active glimepiride (AMARYL) 2 MG tablet Take 2 mg by mouth 1 (one) time each day before breakfast Active nortriptyline (Pamelor) 25 MG capsule Take 1 capsule (25 mg total) by mouth every night 30 capsule 11 4 Active Active Problems Problem Noted Date Diagnosed Date Stage 3b chronic kidney disease 11/01/2023 Acute nontraumatic kidney injury 05/08/2021 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 01/2021 Diabetes mellitus without me ntion of complication, type II or unspecified type, not stated as uncontrolled 05/08/2021 Essential (primary) hypertension 05/08/2021 Resolved Problems Problem Noted Date Diagnosed Date Resolved Date Hyperlipidemia 05/08/2021 05/08/2021 Myoclonic disorder 05/08/2021 Peripheral vascular disease 05/08/2021 05/08/2021 Latent tuberculosis 05/08/2021 05/08/20 21 Encounters Date Type Department Care Team Description 01/01/2025 Refill [facility] [address] [place] [address] Phill Mc MD 11/23/2024 Documentation Only [facility] [address] [place] [address] Gaby Will MA from Last 3 Months Family History Medical History Relation Comments Diabetes Brother Hypertension Brother Diabetes Father Heart disease Father Diabetes Mother Heart disease Mother Relation Status Comments Brother Father Mother Social History Tobacco Use Types Packs/Day Years Used Date Smoking Tobacco: Former Smokeless Tobacco: Never Sex and Gender Information Value Date Recorded Sex Assigned at Not on file Legal Sex Male 2:06 PM EST Gender Identity Not on file Sexual Orientation Not on file Plan of Treatment Health Maintenance Due Date Last Done Comments Colorectal Cancer Screening: Annual FOBT 2008 Colorectal Cancer Screening: Colonoscopy 2008 Colorectal Cancer Screening: Sigmoidoscopy 2008 Pneumococcal Vaccine: 50+ Ye ars (2 of 2 - PCV) 07/01/2011 07/01/2010 Hepatitis B Vaccine (1 of 3 - Risk 3-dose series) 2019 08/10/2017, 03/09/2017, 02/06/2017 Diabetes: Ophthalmology Exam 10/12/2023 Diabetes: Pedal Pulse Checked 10/12/2023 Diabetes: Sensory Foot Exam 10/12/2023 Diabetes: Visual Foot Exam 10/12/2023 Diabetes: Hemoglobin A1C 11/22/2024 08/22/2024 Influenza Vaccine (Season Ended) 2025 09/04/2023, 06/26/2023, 06/27/2022, Additional history exists Pneumococcal Vaccine: Peds ( 0 to 5 Years) and At-Risk Patients (6 to 49 Years) Discontinued 07/01/2010 Insurance [facility] ([id number]) [address] [place] [id number] [facility] ([id number]) Care Teams Windows Technical Specialist Relationship Specialty Start Date End Date Michelle Long MD [address] [place], [place] PCP - General Internal Medicine 10/06/23
--- OUTSIDE RECORDS SUMMARY | 2025-02-01 15:16 | XMS_ITS | Encounter Summary ---
Author Organization [facility] Address [address] [place] [address] Care Team Providers Care Park Maintainer Name Role Phone Travis Au MD Primary Care Provider [phone] Encounter Details Date Type Department Care Team (Latest Contact Info) Description 11/29/[address] [facility] - Main Lab [address] [facility] [place] [address] Brandon Mckeon MD [address] [place] [address] Type 2 diabetes mellitus without [...] V28) documented in this encounter Care Teams Park Maintainer Relationship Specialty Start Date End Date Travis Au MD [address] [facility] [address] [place], [address] PCP - General Family Medicine 08/22/24 documented as of this encounter
--- OUTSIDE RECORDS SUMMARY | 2025-02-01 15:16 | XMS_ITS | Encounter Summary ---
Author Organization [facility], Address [address] [place] [address] Phone Care Team Providers Care Manager Part Name Role Phone Michelle Long MD Primary Care Provider [phone] Encounter Details Date Type Department Care Team (Late st Contact Info) Description 11/10/2023 Documentation Only [facility], [address] [place] [address] [place]y [place], [place] [address] [place] [address] Social History Tobacco Use Types [...] on filedocumented in this encounter Care Teams Manager Part Relationship Specialty Start Date End Date Michelle Long MD [address] [place], [place] PCP - General Internal Medicine 10/06/23 documented as of this encounter
--- OUTSIDE RECORDS SUMMARY | 2025-02-01 15:16 | XMS_ITS | Clinical Summary ---
Author Organization [address] Address [address] [place] [address] Phone Care Team Providers Care Ammonia Solution Preparer Name Role Phone Travis Au MD Primary Care Provider [phone] Encounters Date Type Department Care Team Description 11/29/[address] [facility] - Main Lab [address] [facility] [place] [address] Brandon Mckeon MD Type 2 diabetes mellitus without complications (CMS/HCC V24, CMS/HCC V28) from Last 3 Months Social History Tobacco Use Types Packs/Day Years Used Date Smoking Tobacco: Never Assessed Sex and Gender Information Value Date Recorded Sex Assigned at Not on file Legal Sex Male 9:08 PM EST Gender Identity Not on file Sexual Orientation Not on file Plan of Treatment Health Maintenance Due Date Last Done Comments Diabetes: Annual Foot Exam 1969 Diabetes: Annual Retina Eye Exam 1969 Hepatitis A Vaccines (1 of 2 - Risk 2-dose series) 1978 Zoster Vaccines (1 of 2) 1978 Pneumococcal Vaccine: 50+ Years (2 of 2 - PCV) 07/01/2011 07/01/2010 Pneumococcal Vaccine: Pediatrics (0 to 5 Years) and At-Risk Patients (6 to 64 Years) (2 of 2 - PCV) 07/01/2011 07/01/2010 RSV Immunization Adult Patients (1 - Risk 60-74 years 1-dose series) 2019 Abdominal Aortic Aneurysm (AAA) Screen 10/30/2023 Cholesterol Screening (Lipid Panel) 10/30/2023 Colorectal Cancer Screening: Colonoscopy 10/30/2023 Depression Screening 10/30/2023 Hepatitis C Screening 10/30/2023 Medicare Annual Wellness Visit 10/30/2023 Social Influencers of Health Screening 10/30/2023 Falls Risk Assessment 2024 COVID-19 Vaccine ( season) 2024 06/26/2023, 06/02/2021, 11/06/2020, Additional history exists Diabetes: Annual Urine Albumin-Creatinine Ratio (uACR) 08/22/2024 Diabetes: Blood Sugar Control Test (HGBA1C) 02/19/2025 08/22/2024 Influenza Vaccine (Season Ended) 2025 09/04/2023, 06/27/2022, 10/11/2021, Additional history exists Diabetes: Annual GFR (Glomerular Filtration Rate) 11/02/2025 11/02/2024, 10/27/2024, 10/19/2024, Additional history exists Hypertension/CHF/CAD Annual BMP Blood Test 11/02/2025 11/02/2024, 10/27/2024, 10/19/2024, Additional history exists DTaP,Tdap,and Td Vaccines (3 - Td or Tdap) 09/04/2033 09/04/2023, 07/29/2010 Hepatitis B Vaccines Completed 08/10/2017, 03/09/2017, 02/06/2017 HIB Vaccines Aged Out No longer eligi ble based on patient's age to complete this topic HPV Vaccines Aged Out No longer eligi ble based on patient's age to complete this topic IPV Vaccines Aged Out No longer eligi ble based on patient's age to complete this topic MMR Vaccines Aged Out No longer eligi ble based on patient's age to complete this topic Meningococcal ACWY Vaccine Aged Out N o longer eligible based on patient's age to complete this topic Meningococcal B Vaccine Aged Out No l onger eligible based on patient's age to complete this topic RSV Immunization Patients Under 20 months Aged Out No longer eligible based on patient's age to complete this topic Varicella Vaccines Aged Out No longer eligible based on patient's age to complete this topic Procedures Procedure Name Priority Date/Time Associated Diagnosis Comments BASIC METABOLIC PANEL Routine 11/02/2024 7:04 AM EST Type 2 diabetes mellitus without complications ([facility]/HCC) HEMOGLOBIN A1C Routine 08/22/2024 5:16 AM EST Type 2 diabetes mellitus without complications (CMS/HCC) Unspecified atrial fibrillation (CMS/HCC) from Last 3 Months or Most Recently Relevant to Health Maintenance Results * (ABNORMAL) Basic metabolic panel (11/02/2024 7:04 AM EST) Sodium 134 133 - 145 mmol/L LAB CHEMISTRY METHOD 11/02/2024 12:37 PM [facility] Potassium 5.1 3.5 - 5.5 mmol/L LAB CHEMISTRY METHOD 11/02/2024 12:37 PM [facility] Chloride 107 96 - 110 mmol/L LAB CHEMISTRY METHOD 11/02/2024 12:37 PM [facility] CO2 21 21 - 32 mmol/L LAB CHEMISTRY METHOD 11/02/2024 12:37 PM [facility] Anion Gap 6 3 - 11 LAB CHEMISTRY METHOD 11/02/2024 12:37 PM [facility] Glucose 93 70 - 100 mg/dL LAB CHEMISTRY METHOD 11/02/2024 12:37 PM [facility] BUN 54(H) 5 - 25 mg/dL LAB CHEMISTRY METHOD 11/02/2024 12:37 PM [facility] Creatinine 3.63(H) 0.70 - 1.30 mg/dL LAB CHEMISTRY METHOD 11/02/2024 12:37 PM [facility] eGFR 18(L) >=60 mL/min/1. 73m2 LAB CHEMISTRY METHOD 11/02/2024 12:37 PM [facility] Comment:Calculation based on the??Chronic Kidney Disease Epidemiology Collaboration (CKD-EPI) equation refit??without adjustment for race. BUN/Creatinine Ratio 14.9 LAB CHEMISTRY METHOD 11/02/2024 12:37 PM [facility] Calcium 8.5 8.5 - 10.5 mg/dL LAB CHEMISTRY METHOD 11/02/2024 12:37 PM [facility] Blood Venous blood specimen / Unknown Venipuncture / Unknown 11/02/2024 7:04 AM EST 11/02/2024 11:13 AM EST Brandon Mckeon MD LAB BLOOD ORDERABLES Final Resu lt [facility] [address] [place] [address], [place] [phone] * Hemoglobin A1c (08/22/2024 5:16 AM EST) [facility] [address] Hemoglobin A1C 6.4 <6.5 % LAB CHEMISTRY METHOD 08/23/2024 7:38 PM EST [facility] Mean Bld Glu Estim. 137 mg/dL LAB CHEMISTRY METHOD 08/23/2024 7:38 PM EST [facility] Blood Venous blood specimen / Unknown 08/22/2024 5:16 AM EST 08/22/2024 7:59 AM EST Travis Au MD LAB BLOOD ORDERABLES Final Resul t Performing Organization Address City/[facility]/ZIP Co de Phone Number [facility] [address] [place] [address], [place] [phone] from Last 3 Months or Most Recently Relevant to Health Maintenance Insurance [facility] MEDIC[facility] Member Subscriber Plan / Payer (Ef fective 2024-Present) Name:Renato Hinson Relation to Subscriber:Self Name:Renato Hinson Payer ID:[id number] Group ID:[id number] Type:Not on file Address: [place] [address] [address] [address] Care Teams Ammonia Solution Preparer Relationship Specialty Start Date End Date Travis Au MD [address] [place] [address] [address] [place], [phone] PCP - General Family Medicine 08/22/24
--- OUTSIDE RECORDS SUMMARY | 2025-02-01 15:16 | XMS_ITS | Encounter Summary ---
Author Organization [facility] Address [address] [place] [address] Care Team Providers Care Garbage Collector Supervisor Name Role Phone Travis Au MD Primary Care Provider [phone] Encounter Details Date Type Department Care Team (Late st Contact Info) Description 09/24/2024 Lab Requisition [facility] - Main Lab [address] [place] [address] Travis Au MD [address] [place] [address] [address] [place], [address] Chronic kidney disease, unspecified Social History Tobacco [...] Associated Diagnosis Comments COMPLETE BLOOD COUNT Routine 09/26/2024 5:22 AM EST Chronic kidney disease, unspecified BASIC METABOLIC PANEL Routine 09/26/2024 5:22 AM EST Chronic kidney disease, unspecified documented in this encounter Results * (ABNORMAL) Basic metabolic panel (09/26/2024 5:22 AM EST) Sodium 135 133 - 145 mmol/L LAB CHEMISTRY METHOD 09/26/2024 10:13 AM EST [facility] Potassium 5.0 3.5 - 5.5 mmol/L LAB CHEMISTRY METHOD 09/26/2024 10:13 AM EST [facility] Chloride 107 96 - 110 mmol/L LAB CHEMISTRY METHOD 09/26/2024 10:13 AM [facility] CO2 20(L) 21 - 32 mmol/L LAB CHEMISTRY METHOD 09/26/2024 10:13 AM [facility] Anion Gap 8 3 - 11 LAB CHEMISTRY METHOD 09/26/2024 10:13 AM [facility] Glucose 169(H) 70 - 100 mg/dL LAB CHEMISTRY METHOD 09/26/2024 10:13 AM [facility] BUN 74(H) 5 - 25 mg/dL LAB CHEMISTRY METHOD 09/26/2024 10:13 AM [facility] Creatinine 3.72(H) 0.70 - 1.30 mg/dL LAB CHEMISTRY METHOD 09/26/2024 10:13 AM [facility] eGFR 17(L) >=60 mL/min/1. 73m2 LAB CHEMISTRY METHOD 09/26/2024 10:13 AM [facility] Comment:Calculation based on the??Chronic Kidney Disease Epidemiology Collaboration (CKD-EPI) equation refit??without adjustment for race. BUN/Creatinine Ratio 19.9 LAB CHEMISTRY METHOD 09/26/2024 10:13 AM [facility] Calcium 8.4(L) 8.5 - 10.5 mg/dL LAB CHEMISTRY METHOD 09/26/2024 10:13 AM [facility] Blood Venous blood specimen / Unknown Venipuncture / Unknown 09/26/2024 5:22 AM EST 09/26/2024 9:31 AM EST us Travis Au MD LAB BLOOD ORDERABLES Final Resul t [facility] [address] [place] [address], * (ABNORMAL) Complete blood count (09/26/2024 5:22 AM EST) [facility] WBC 12.6(H) 4.8 - 10.8 K/mcL LAB HEMETOLOGY METHOD 09/26/2024 9:44 AM [facility] RBC 2.90(L) 4.50 - 5.50 M/mcL LAB HEMETOLOGY METHOD 09/26/2024 9:44 AM [facility] Hemoglobin 8.6(L) 13.5 - 17.5 g/dL LAB HEMETOLOGY METHOD 09/26/2024 9:44 AM [facility] Hematocrit 26.7(L) 42.0 - 54.0 % LAB HEMETOLOGY METHOD 09/26/2024 9:44 AM [facility] MCV 93.0 79.0 - 98.0 FL LAB HEMETOLOGY METHOD 09/26/2024 9:44 AM [facility] MCH 30.0 27.0 - 32.0 pcg LAB HEMETOLOGY METHOD 09/26/2024 9:44 AM [facility] MCHC 32.2 32.0 - 37.0 g/dL LAB HEMETOLOGY METHOD 09/26/2024 9:44 AM [facility] RDW 12.9 11.0 - 15.0 % LAB HEMETOLOGY METHOD 09/26/2024 9:44 AM [facility] Platelets 289 130 - 400 K/mcL LAB HEMETOLOGY METHOD 09/26/2024 9:44 AM [facility] MPV 10.6 7.0 - 11.0 FL LAB HEMETOLOGY METHOD 09/26/2024 9:44 AM [facility] NRBC 0.0 <1.0 % LAB HEMETOLOGY METHOD 09/26/2024 9:44 AM [facility] NRBC Absolute 0.00 <0.10 K/mcL LAB HEMETOLOGY METHOD 09/26/2024 9:44 AM [facility] Blood Venous blood specimen / Unknown Venipuncture / Unknown 09/26/2024 5:22 AM EST 09/26/2024 9:31 AM EST us Travis Au MD LAB BLOOD ORDERABLES Final Resul t [facility] [address] [place] [address], documented in this encounter Visit Diagnoses Diagnosis Chronic kidney disease, unspecified documented in this encounter Care Teams Garbage Collector Supervisor Relationship Specialty Start Date End Date Travis Au MD [address] [place] [address], [phone] PCP - General Family Medicine 08/22/24 documented as of this encounter
--- OUTSIDE RECORDS SUMMARY | 2025-02-01 15:16 | XMS_ITS | Encounter Summary ---
Author Organization [facility] Address [address] [place] [address] Care Team Providers Care Transferrer Name Role Phone Travis Au MD Primary Care Provider Encounter Details Date Type Department Care Team (Late st Contact Info) Description 10/18/2024 Lab Requisition [facility] - Main Lab [address] [place] [address] Travis Au MD [address] [place] [address] [address] [place], [address] Type 2 diabetes mellitus without complications [...] Associated Diagnosis Comments COMPLETE BLOOD COUNT Routine 10/19/2024 5:45 AM EST Type 2 diabetes mellitus without complications (CMS/HCC) BASIC METABOLIC PANEL Routine 10/19/2024 5:45 AM EST Type 2 diabetes mellitus without complications (CMS/HCC) documented in this encounter Results * (ABNORMAL) Basic metabolic panel (10/19/2024 5:45 AM EST) Sodium 139 133 - 145 mmol/L LAB CHEMISTRY METHOD 10/19/2024 8:44 AM EST [facility] Potassium 4.6 3.5 - 5.5 mmol/L LAB CHEMISTRY METHOD 10/19/2024 8:44 AM [facility] Chloride 109 96 - 110 mmol/L LAB CHEMISTRY METHOD 10/19/2024 8:44 AM [facility] CO2 21 21 - 32 mmol/L LAB CHEMISTRY METHOD 10/19/2024 8:44 AM [facility] Anion Gap 9 3 - 11 LAB CHEMISTRY METHOD 10/19/2024 8:44 AM [facility] Glucose 167(H) 70 - 100 mg/dL LAB CHEMISTRY METHOD 10/19/2024 8:44 AM [facility] BUN 61(H) 5 - 25 mg/dL LAB CHEMISTRY METHOD 10/19/2024 8:44 AM [facility] Creatinine 3.42(H) 0.70 - 1.30 mg/dL LAB CHEMISTRY METHOD 10/19/2024 8:44 AM [facility] eGFR 19(L) >=60 mL/min/1. 73m2 LAB CHEMISTRY METHOD 10/19/2024 8:44 AM [facility] Comment:Calculation based on the??Chronic Kidney Disease Epidemiology Collaboration (CKD-EPI) equation refit??without adjustment for race. BUN/Creatinine Ratio 17.8 LAB CHEMISTRY METHOD 10/19/2024 8:44 AM [facility] Calcium 8.3(L) 8.5 - 10.5 mg/dL LAB CHEMISTRY METHOD 10/19/2024 8:44 AM [facility] Blood Venous blood specimen / Unknown Venipuncture / Unknown 10/19/2024 5:45 AM EST 10/19/2024 8:08 AM EST us Travis Au MD LAB BLOOD ORDERABLES Final Resul t [facility] [address] [place] [address], * (ABNORMAL) Complete blood count (10/19/2024 5:45 AM EST) [facility] WBC 10.6 4.8 - 10.8 K/mcL LAB HEMETOLOGY METHOD 10/19/2024 8:25 AM [facility] RBC 3.10(L) 4.50 - 5.50 M/mcL LAB HEMETOLOGY METHOD 10/19/2024 8:25 AM [facility] Hemoglobin 9.2(L) 13.5 - 17.5 g/dL LAB HEMETOLOGY METHOD 10/19/2024 8:25 AM [facility] Hematocrit 28.5(L) 42.0 - 54.0 % LAB HEMETOLOGY METHOD 10/19/2024 8:25 AM [facility] MCV 92.2 79.0 - 98.0 FL LAB HEMETOLOGY METHOD 10/19/2024 8:25 AM [facility] MCH 29.8 27.0 - 32.0 pcg LAB HEMETOLOGY METHOD 10/19/2024 8:25 AM [facility] MCHC 32.3 32.0 - 37.0 g/dL LAB HEMETOLOGY METHOD 10/19/2024 8:25 AM [facility] RDW 13.7 11.0 - 15.0 % LAB HEMETOLOGY METHOD 10/19/2024 8:25 AM [facility] Platelets 221 130 - 400 K/mcL LAB HEMETOLOGY METHOD 10/19/2024 8:25 AM [facility] MPV 10.8 7.0 - 11.0 FL LAB HEMETOLOGY METHOD 10/19/2024 8:25 AM [facility] NRBC 0.0 <1.0 % LAB HEMETOLOGY METHOD 10/19/2024 8:25 AM [facility] NRBC Absolute 0.00 <0.10 K/mcL LAB HEMETOLOGY METHOD 10/19/2024 8:25 AM EST [facility] Blood Venous blood specimen / Unknown Venipuncture / Unknown 10/19/2024 5:45 AM EST 10/19/2024 8:08 AM EST us Travis Au MD LAB BLOOD ORDERABLES Final Resul t [facility] [address] [place] [address], documented in this encounter Visit Diagnoses Diagnosis Type 2 diabetes mellitus without complications (CMS/HCC V24, CMS/HCC V28) documented in this encounter Care Teams Transferrer Relationship Specialty Start Date End Date Travis Au MD [address] [place] [address], [phone] PCP - General Family Medicine 08/22/24 documented as of this encounter
--- OUTSIDE RECORDS SUMMARY | 2025-02-01 15:16 | XMS_ITS | Encounter Summary ---
Author Organization [facility] Address [address] [place] [address] Care Team Providers Care Charge Account Authorizer Name Role Phone Travis Au MD Primary Care Provider [phone] Encounter Details Date Type Department Care Team (Latest Contact Info) Description 11/01/2024 Lab Requisition [facility] - Main Lab [address] [place] [address] Brandon Mckeon MD [address] [place] [address] Type 2 diabetes mellitus without [...] Associated Diagnosis Comments COMPLETE BLOOD COUNT Routine 11/02/2024 7:04 AM EST Type 2 diabetes mellitus without complications (CMS/HCC) BASIC METABOLIC PANEL Routine 11/02/2024 7:04 AM EST Type 2 diabetes mellitus without complications (CMS/HCC) documented in this encounter Results * (ABNORMAL) Basic metabolic panel (11/02/2024 7:04 AM EST) Sodium 134 133 - 145 mmol/L LAB CHEMISTRY METHOD 11/02/2024 12:37 PM EST [facility] Potassium 5.1 3.5 - 5.5 mmol/L LAB CHEMISTRY METHOD 11/02/2024 12:37 PM [facility] Chloride 107 96 - 110 mmol/L LAB CHEMISTRY METHOD 11/02/2024 12:37 PM [facility] CO2 21 21 - 32 mmol/L LAB CHEMISTRY METHOD 11/02/2024 12:37 PM [facility] Anion Gap 6 3 - 11 LAB CHEMISTRY METHOD 11/02/2024 12:37 PM [facility] Glucose 93 70 - 100 mg/dL LAB CHEMISTRY METHOD 11/02/2024 12:37 PM [facility] BUN 54(H) 5 - 25 mg/dL LAB CHEMISTRY METHOD 11/02/2024 12:37 PM [facility] Creatinine 3.63(H) 0.70 - 1.30 mg/dL LAB CHEMISTRY METHOD 11/02/2024 12:37 PM [facility] eGFR 18(L) >=60 mL/min/1. 73m2 LAB CHEMISTRY METHOD 11/02/2024 12:37 PM [facility] Comment:Calculation based on the??Chronic Kidney Disease Epidemiology Collaboration (CKD-EPI) equation refit??without adjustment for race. BUN/Creatinine Ratio 14.9 LAB CHEMISTRY METHOD 11/02/2024 12:37 PM [facility] Calcium 8.5 8.5 - 10.5 mg/dL LAB CHEMISTRY METHOD 11/02/2024 12:37 PM [facility] Blood Venous blood specimen / Unknown Venipuncture / Unknown 11/02/2024 7:04 AM EST 11/02/2024 11:13 AM EST us Brandon Mckeon MD LAB BLOOD ORDERABLES Final Resu lt [facility] [address] [place] [address], [place] [phone] * (ABNORMAL) Complete blood count (11/02/2024 7:04 AM EST) [facility] WBC 8.5 4.8 - 10.8 K/mcL LAB HEMETOLOGY METHOD 11/02/2024 12:23 PM [facility] RBC 3.10(L) 4.50 - 5.50 M/mcL LAB HEMETOLOGY METHOD 11/02/2024 12:23 PM [facility] Hemoglobin 8.8(L) 13.5 - 17.5 g/dL LAB HEMETOLOGY METHOD 11/02/2024 12:23 PM [facility] Hematocrit 28.2(L) 42.0 - 54.0 % LAB HEMETOLOGY METHOD 11/02/2024 12:23 PM [facility] MCV 91.9 79.0 - 98.0 FL LAB HEMETOLOGY METHOD 11/02/2024 12:23 PM [facility] MCH 28.7 27.0 - 32.0 pcg LAB HEMETOLOGY METHOD 11/02/2024 12:23 PM [facility] MCHC 31.2(L) 32.0 - 37.0 g/dL LAB HEMETOLOGY METHOD 11/02/2024 12:23 PM [facility] RDW 13.6 11.0 - 15.0 % LAB HEMETOLOGY METHOD 11/02/2024 12:23 PM [facility] Platelets 382 130 - 400 K/mcL LAB HEMETOLOGY METHOD 11/02/2024 12:23 PM [facility] MPV 10.3 7.0 - 11.0 FL LAB HEMETOLOGY METHOD 11/02/2024 12:23 PM [facility] NRBC 0.0 <1.0 % LAB HEMETOLOGY METHOD 11/02/2024 12:23 PM [facility] NRBC Absolute 0.00 <0.10 K/mcL LAB HEMETOLOGY METHOD 11/02/2024 12:23 PM EST [facility] Blood Venous blood specimen / Unknown Venipuncture / Unknown 11/02/2024 7:04 AM EST 11/02/2024 11:13 AM EST us Brandon Mckeon MD LAB BLOOD ORDERABLES Final Resu lt [facility] [address] [place] [address], documented in this encounter Visit Diagnoses Diagnosis Type 2 diabetes mellitus without complications (CMS/HCC V24, CMS/HCC V28) documented in this encounter Care Teams Charge Account Authorizer Relationship Specialty Start Date End Date Travis Au MD [address] [place] [address], [id number] PCP - General Family Medicine 08/22/24 documented as of this encounter
== END 2025-02-01 14:28 | disposition home or self-care (01) ==
LOC: HO.HKA 14:03
PROVIDERS: PCP Internal Medicine; Visit Provider Internal Medicine Nephrology
DX: N25.81 Secondary hyperparathyroidism of renal origin (principal); I12.9 Hypertensive chronic kidney disease with stage 1 through stage 4 chronic kidney disease, or unspecified chronic kidney disease; N18.4 Chronic kidney disease, stage 4 (severe); D63.1 Anemia in chronic kidney disease; E55.9 Vitamin D deficiency, unspecified
CPT/HCPCS: 99214

== ENCOUNTER → 2025-02-01 14:03 | Outpatient (BNVA) | payer OTHER, SELFPAY | PROVIDERS: PCP Internal Medicine; Visit Provider Internal Medicine Nephrology | DX: I15.0 Renovascular hypertension (principal); N25.81 Secondary hyperparathyroidism of renal origin; N18.4 Chronic kidney disease, stage 4 (severe); D63.1 Anemia in chronic kidney disease; E55.9 Vitamin D deficiency, unspecified; Z89.511 Acquired absence of right leg below knee | CPT/HCPCS: 96372; 99212; Q5106 ==

== ENCOUNTER 2025-02-20 01:02 | Inpatient (IN) | payer OTHER, SELFPAY ==
[2025-02-20] VITALS (16 sets, daily range): BP systolic 120–179; BP diastolic 60–85; PULSE 71–140; RESP 11–26; TEMP 36.3–38.8; O2SAT 77–99; BMI 24.3; BMI 24.7
--- NOTE | ~2025-02-20 | XR_ITS ---
CLINICAL HISTORY: s p toe amputation, infected, question osteo 2 view left foot Comparison: None Findings: There is soft tissue edema. There is amputation at the base of the proximal phalanx of the big toe. There are osteolytic changes of the distal 1st metatarsal. There is also mild subchondral sclerosis. There are diffuse vascular calcifications. There are no acute fractures. There are small ossific densities adjacent to the distal phalanx of the 5th digit and adjacent to the middle phalanx of the 5th digit secondary to likely old trauma and/or benign soft tissue ossification. There is [id number] calcaneal spur. There is a small osteophyte at the Achilles tendon insertion. No radiopaque foreign body. IMPRESSION: Amputation of the base of the proximal phalanx of the big toe Lytic changes highly suspicious for osteomyelitis of the distal 1st metatarsal and septic arthritis of the 1st metatarsal phalangeal joint This document has been electronically signed by: Philippe Reynaga MD on 02/20/2025 03:54:20
--- NOTE | ~2025-02-20 | IR_ITS ---
CLINICAL HISTORY: Need for long-term central venous access. PROCEDURES: 1. Real-time ultrasound-guided access into the right internal jugular vein after documentation of selected vessel patency, and permanent imaging storing in the patient record. 2. Placement of a single-lumen tunneled, central venous catheter. MEDICATIONS: -Fentanyl, Lidocaine 1% SQ. -For additional details, please see nursing flowsheet. COMPLICATIONS: None. ESTIMATED BLOOD LOSS: <5 ml SPECIMENS: None FLUOROSCOPY TIME: 0.1 min PROCEDURE NOTE: The procedure, risks, benefits, and alternatives were carefully explained to patient, and written informed consent was obtained. The patient was placed supine on the fluoroscopy table. A timeout was performed. The right neck and chest was prepped and draped in usual sterile fashion. Local anesthesia was administered to the access site with lidocaine. Under ultrasound guidance, the right internal jugular vein was accessed with a 5 Fr micropuncture set. A 0.018 in wire was advanced to the IVC to maintain access during the tunneling process. Next, subcutaneous lidocaine was administered to the chest. Using blunt dissection, a subcutaneous tunnel was created that connects from the upper chest to the venotomy site. The Marcelo catheter was pulled through the tunnel. The tract in the vein was dilated and a peel-away sheath was advanced over the wire. The catheter was advanced through the sheath, which was subsequently peeled away. The catheter was tested, flushed, and sutured to the skin with its tip at the cavoatrial junction. A permanent fluoroscopic image of the chest was saved to PACS. The catheter port was packed with heparin per routine protocol. The patient was stable after the procedure and was transferred to the floor. This procedure was performed under IV sedation with a dedicated nurse and continuous monitoring of vital signs. FINDINGS: 1. Patent right internal jugular vein. 2. Placement of a tunneled, single-lumen central venous catheter as above. 3. Catheter flushes and aspirates very well with a 10 mL syringe. No pneumothorax. IR/IR cvc insert central tunnel IMPRESSION: Placement of a tunneled central venous catheter (Marcelo) in the right internal jugular vein. PLAN: -The catheter may be used immediately. Electronically signed by: Eliu Barnes MD 03/02/2025 02:17 PM EDT
--- NOTE | ~2025-02-20 | CT_ITS ---
CLINICAL HISTORY: edema vs pna CT chest without contrast Comparison: None Findings: The heart size is normal. The visualized thyroid and mediastinum are unremarkable. There is interstitial consolidation and bilateral lower lobe airspace consolidation with large bilateral pleural effusions. Differential considerations would include pulmonary edema, pneumonia, or subsegmental atelectasis. The upper abdomen is unremarkable. The bones are intact. IMPRESSION: 1. Interstitial and airspace consolidation with bilateral pleural effusions, differential considerations noted This document has been electronically signed by: Angel Dale MD on 02/20/2025 05:33:26
--- NOTE | ~2025-02-20 | XR_ITS ---
CLINICAL HISTORY: sob, hypoxic, copd 1 view chest x-ray Comparison: None Findings: There is cardiomegaly. There are patchy bilateral pulmonary opacities. There is prominence of the pulmonary vascularity. No consolidation. No acute fracture. IMPRESSION: Cardiomegaly Bilateral pulmonary opacities secondary to pulmonary venous congestion can not exclude and/or pneumonia This document has been electronically signed by: Philippe Reynaga MD on 02/20/2025 03:13:51
--- NOTE | ~2025-02-20 | US_ITS ---
EXAMINATION: US KIDNEY BILATERAL HISTORY: cr 7.30 TECHNIQUE: Real-time grayscale ultrasound imaging of the kidneys was performed and images were reviewed. COMPARISON: There are no prior studies for comparison. FINDINGS: The examination is somewhat limited due to difficulty in patient positioning. There may be a small right pleural effusion. Right kidney: The right kidney measures 8.6 x 6.6 x 4.8 cm. Renal parenchymal echotexture and thickness are normal. There is a lower pole cyst measuring 1.9 x 2.3 x 2.5 cm which appears septated. There is no hydronephrosis or renal calculi. Left Kidney: The left kidney measures 12.7 x 5.9 x 5.5 cm. Renal parenchymal echotexture and thickness are normal. There is a 2.8 x 2.9 x 2.7 cm cyst in the interpolar region with possible wall calcification. There is no hydronephrosis or renal calculi. US/US renal BI IMPRESSION: 1. Mildly complex bilateral renal cysts as described. Follow-up is recommended. 2. Possible small right pleural effusion. This could be confirmed with chest x-ray. Electronically signed by: Philippe Ly MD 02/20/2025 08:58 AM EDT
--- NOTE | 2025-02-20 01:16 | ECG_ITS ---
Test Reason : TACHY Blood Pressure : */* mmHG Vent. Rate : 123 BPM Atrial Rate : * BPM P-R Int : * ms QRS Dur : 110 ms QT Int : 330 ms P-R-T Axes : * 40 76 degrees QTcB Int : 472 ms Sinus tachycardia with PACs Nonspecific ST abnormality Abnormal ECG No previous ECGs available Referred By: Generic ED Physician Electronically Signed By: Familia Howell
--- NOTE | 2025-02-20 01:30 | ED.GENADULT ---
HPI - General Adult General Chief complaint: Extremity Problem Stated complaint: L big toe Amputated 3 wks,Low O2 Tachy warm Sepsis Time Seen by Provider: 02/20/25 01:19 Source: patient and EMS Mode of arrival: EMS Limitations: no limitations History of Present Illness ED Provider: Dr. Penny Torres HPI narrative: Patient comes to the emergency room via ambulance from home. According to EMS, patient has been complaining of cough, subjective fever, shortness of breath for couple of days, oxygen saturation was 83% on room air. Patient has history of COPD at home, oxygen dependent per patient. Does not know how many L. also, 3 weeks ago, patient had a left great toe amputation done. Patient states that the amputation site is extremely painful to touch, warm and swollen. Patient denies abdominal pain or urinary symptoms. Related Data Home Medications ?Medication ?Instructions ?Recorded ?Confirmed amlodipine 10 mg tablet 10 mg PO DAILY 12/19/24 aspirin 81 mg chewable tablet 1 tab PO DAILY 12/19/24 atorvastatin 80 mg tablet 80 mg PO DAILY 12/19/24 dapagliflozin propanediol 10 mg 10 mg PO DAILY 12/19/24 tablet (Farxiga) doxycycline monohydrate 100 mg 100 mg PO BID 12/19/24 capsule finasteride 5 mg tablet 5 mg PO DAILY 12/19/24 metoprolol succinate 100 mg 100 mg PO DAILY 12/19/24 tablet,extended release 24 hr nicotine 10 mg/mL nasal spray intranasal 12/19/24 (Nicotrol NS) sodium zirconium cyclosilicate 10 10 g PO DAILY 12/19/24 gram oral powder packet (Lokelma) tamsulosin 0.4 mg capsule mg PO 12/19/24 umeclidinium 62.5 mcg/actuation inhalation DAILY 12/19/24 blister powder for inhalation (Incruse Ellipta) hydralazine 25 mg tablet 50 mg PO TID 12/30/24 rivaroxaban 2.5 mg tablet (Xarelto) mg PO DAILY 12/30/24 sodium bicarbonate 650 mg tablet 650 mg PO TID 12/30/24 Previous Rx's ?Medication ?Instructions ?Recorded cholecalciferol (vitamin D3) 1,250 1,250 mcg PO QWEEK #14 caps 02/01/25 mcg (50,000 unit) capsule Allergies Allergy/AdvReac Type Severity Reaction Status Date / Time morphine Allergy Hallucinati Verified 02/20/25 01:11 ons bupropion AdvReac Hallucinati Verified 02/20/25 01:11 ons Review of Systems Review of Systems: Constitutional : No Weight loss, No Fever, No Chills, No Night Sweats, No Fatigue, No Malaise ENT/Mouth : Dry sticky oral mucous membranes No Hearing loss, No Ear Pain, No Nasal Congestion, No Sinus Pain, No Hoarseness, No sore throat, No Rhinorrhea, No Swallowing Difficulty Eyes: No Eye Pain, No Swelling, No Redness, No Foreign Body, No Discharge, No Vision Changes Cardiovascular : No Chest Pain, No SOB, No Dyspnea on Exertion, No Orthopnea, No Edema, No Palpitations Respiratory : Complaining of cough, wheezing and shortness of breath Gastrointestinal : No Nausea, No Vomiting, No Diarrhea, No Constipation, No abdominal Pain, No Hematochezia, No Melena Genitourinary : no irregular bleeding, No Dysuria, No Urinary Frequency, No Hematuria, No Urinary Incontinence, No Urgency, No Flank Pain, No Urinary Flow Changes, No Hesitancy Musculoskeletal : No joint pain, No Myalgias, No Joint Swelling Skin : Complaining of infection at the surgical site on the left foot Neuro : No Weakness, No Numbness, No Paresthesias, No Loss of Consciousness, No Dizziness, No Headache Psych : No Anxiety/Panic, No Depression, No SI/HI/AH/VH, No Social Issues, Heme/Lymph: No Bruising, No Bleeding,No Lymphadenopathy Endocrine : No Polyuria, No Polydipsia, No Temperature Intolerance PMFSH Past Medical History Medical History Urinary urgency Urinary tract infection Urinary hesitancy Tubular adenoma of colon Smoker Seborrheic keratoses SND (sensorineural deafness) Right BKA infection Peripheral vascular disease WENDY (obstructive sleep apnea) Microalbuminuria Lung nodule seen on imaging study Lightheadedness Latent tuberculosis LVH (left ventricular hypertrophy) Abnormal PFTs Hyponatremia Hypertensive retinopathy of both eyes Hyperkalemia Hepatitis C Hearing loss of both ears Hypertension Erectile dysfunction Cataract CKD (chronic kidney disease) Bladder wall thickening BPH (benign prostatic hyperplasia) Anticoagulated Anemia Peripheral neuropathy Diabetes mellitus, type II CVA (cerebral vascular accident) Adrenal nodule Kidney cysts Surgical History Hx of right BKA Family History Family History Brother Diabetes Mother Diabetes Father Diabetes Social History Social History Alcohol intake: never Patient Tobacco Use Status: Current someday Tobacco user Smoked in Last 30 Days: No Use of substances other than those prescribed or required for medical reasons: No Advance Directives: No Advance Directives Information Provided: Yes Do you have a plan to hurt others: No Plan Physical Exam ED Vital Signs: Vital Signs - 24 hr 02/20/25 01:05 02/20/25 01:45 02/20/25 02:55 Temperature 99.8 F 101.9 F H Pulse Rate 123 H 113 H Respiratory Rate 26 H 14 Blood Pressure 179/85 H 137/68 Pulse Oximetry 96 98 Oxygen Delivery Method Nasal Cannula Nasal Cannula Oxygen Flow Rate 3 02/20/25 03:54 Temperature 100 F Pulse Rate 94 Respiratory Rate 17 Blood Pressure 142/70 H Pulse Oximetry 98 Oxygen Delivery Method Nasal Cannula Oxygen Flow Rate 2 BMI result Body Mass Index 24.3 Const Other: Appearance: Alert. Oriented X3. No acute distress. Eyes: Pupils equal, round and reactive to light. ENT: Pharynx normal. Neck: Normal inspection. Neck supple. No lymph nodes noted. No crepitus CVS: Normal heart rate and rhythm. Pulses normal. Normal S1 and S2 Respiratory: No respiratory distress. Breath sounds normal. No Wheezing. No rales Abdomen: Soft and nontender. No rigidity. No distention. Skin: Skin warm and dry. Normal skin color. Normal skin turgor. Extremities: No lower extremity edema. BKA on the right sutures look intact. The stump looks infected, erythematous, very tender to touch, warm, pus draining Neuro: Oriented X 3. No motor deficit. No sensory deficit. Moving all extremities. No slurred speech. CN 2 through 12 grossly intact Psych: calm, cooperative, normal affect Course Course Course Narrative: Patient's vitals stable, patient receiving Solu-Medrol, vanco and Zosyn, nebulization treatments and magnesium. Also, patient empirically being treated with Zosyn All of patient's labs and imaging pending Blood pressure 179/85, heart rate 123, respirations 26, temperature 99.8 degrees, oxygen saturation 96% on nasal cannula Medications Administered Discontinued Medications Generic Name Dose Route Start Last Admin Trade Name Austinq PRN Reason Stop Dose Admin Acetaminophen 975 mg 02/20/25 02:05 02/20/25 02:29 Acetaminophen 325 Mg Tablet PO 02/20/25 02:06 975 mg ONCE ONE Administration Albuterol Sulfate 2.5 mg/ 0 mg 02/20/25 01:39 02/20/25 01:40 Albuterol/Ipratropium 3 ml INHALE 02/20/25 01:40 1 dose ONCE ONE Administration Sodium Chloride 2,500 mls @ 999 mls/hr 02/20/25 01:19 02/20/25 02:36 Ns IVCONT 02/20/25 03:49 Infused .Q2H31M ONE Infusion Piperacillin Sod/Tazobactam 50 mls @ 100 mls/hr 02/20/25 01:19 02/20/25 02:19 Sod 3.375 gm/ Sodium Chloride IV 02/20/25 01:48 Infused ONCE ONE Infusion Vancomycin HCl 1,000 mg/ 270 mls @ 270 mls/hr 02/20/25 01:25 02/20/25 02:19 Sodium Chloride IV 02/20/25 02:24 270 mls/hr ONCE ONE Administration Magnesium Sulfate 2 gm in 50 mls @ 25 mls/hr 02/20/25 01:37 02/20/25 01:52 Magnesium Sulfate/H2o IV 02/20/25 03:36 25 mls/hr ONCE ONE Administration Methylprednisolone Sodium Succinate 125 mg 02/20/25 01:37 02/20/25 01:49 Methylprednisolone Sod Succ 125 Mg Vial IVPUSH 02/20/25 01:38 125 mg ONCE ONE Administration Metoprolol Tartrate 5 mg 02/20/25 02:48 02/20/25 02:55 Metoprolol Tartrate 5 Mg/5 Ml Vial IVPUSH 02/20/25 02:49 5 mg ONCE ONE Administration Protocol Medical Decision Making Medical Decision Making MDM Narrative: My interpretation of labs: Patient's white blood cell count 14.3 my chronically anemic and at baseline, no significant abnormality in patient's venous blood gases. Patient's chemistry show an elevated creatinine of 7.3, 3 months ago it was 2.8. Also, patient has BNP is 3183. This is new for the patient, patient states that he has never been told that he has atrial fibrillation or CHF My interpretation of EKG: Atrial fibrillation with RVR, heart rate 123, nonspecific changes in ST segments in the lateral leads, QTC 472 Foot x-ray shows osteomyelitis, patient received vancomycin and Zosyn X-ray of the chest shows bilateral opacities, pulmonary congestion, pneumonia can not be excluded. Patient already got covered for antibiotics Patient has new onset atrial fibrillation. Patient came in AFib with RVR, patient's heart rate now in the 90s after a dose of 5 mg IV metoprolol Patient has CHF. Initially, patient empirically received IV fluids, it was unknown that patient had CHF. Patient received a proximally 1 L of fluids before we stopped them. However, patient also has UMAIR on chronic which is significant. I discussed the above-mentioned with our hospitalist, patient being admitted Differential Diagnosis Differential Diagnoses: The differential diagnosis associated with the presentation includes (As above) Admission/Observation Consideration of admission/observation: Escalation of care including admission/observation considered Consult Healthcare Provider Management of the patient was discussed with: Hospitalist Lab Data MDM Lab Attestation statement: I reviewed the patient's lab results. 02/20/25 01:37 02/20/25 01:37 Labs: Lab Results 02/20/25 02/20/25 02/20/25 Range/Units 01:36 01:37 01:42 WBC 14.3 H (4.8-10.8) X10*3/uL RBC 3.18 L (4.60-5.80) X10*6/uL Hgb 9.4 L (14.0-18.0) g/dl Hct 28.1 L (42.0-52.0) % MCV 88.4 (80.0-98.0) fL MCH 29.6 (27.0-33.0) pg MCHC 33.5 (31.0-36.0) g/dl RDW 14.1 (11.0-16.0) % Plt Count 293 D (160-400) X10*3/uL MPV 9.8 (9.4-12.4) fL Immature Gran % (Auto) 0.8 H (0.0-0.4) % Neut % (Auto) 89.3 H (45-73) % Lymph % (Auto) 3.1 L (20-40) % [place] % (Auto) 6.2 (2-11) % Eos % (Auto) 0.1 (0-4) % Baso % (Auto) 0.5 (0-2) % Lymph # (Auto) 0.4 L (1.2-4.9) X10*3/uL [place] # (Auto) 0.9 (0.1-1.2) X10*3/uL Eos # (Auto) 0.0 (0.0-0.4) X10*3/uL Baso # (Auto) 0.1 (0.0-0.2) X10*3/uL Abs Immat Gran (auto) 0.12 H (0.00-0.03) X10*3/uL Absolute Neuts (auto) 12.8 H (2.0-8.3) x10*3/uL Absolute Nucleated RBC 0.000 (0.0-0.012) X10*3/uL Nucleated RBC % (auto) 0.0 (0.0-0.2) /100WBC Hold Blue Top SEE NOTE VBG pH 7.49 H (7.32-7.43) VBG pCO2 21 mmHg VBG pO2 69 mmHg VBG HCO3 16 L (22-26) mmol/L VBG O2 Saturation 95.0 % VBG Base Excess -5.0 mmol/L Sodium 138 (135-145) mmol/L Potassium 3.8 (3.3-5.1) mmol/L Chloride 106 (96-108) mmol/L Carbon Dioxide 14 L (22-29) mmol/L Anion Gap 22 H (12-20) BUN 65 H (9-16) mg/dL Creatinine 7.30 H* (0.5-1.4) mg/dL Estim Creat Clear Calc 11.0 Estimated GFR 8 Random Glucose 146 H (60-115) mg/dL Lactic Acid 1.5 (0.5-2.0) mmol/L Calcium 8.6 (8.4-10.2) mg/dL Total Bilirubin 0.3 (0.0-1.0) mg/dL Direct Bilirubin 0.1 (0.0-0.5) mg/dL AST 29 (5-37) U/L ALT < 6 (0-40) U/L Alkaline Phosphatase 80 (39-117) U/L B-Natriuretic Peptide 3183 H (<100) pg/mL Total Protein 7.3 (6.5-8.0) g/dL Albumin 3.0 L (3.5-5.0) g/dL Influenza Type A (PCR) NEGATIVE (Negative) Influenza Type B (PCR) NEGATIVE (Negative) RSV RNA Qual (PCR) NEGATIVE (Negative) SARS-CoV-2 RNA (RT-PCR) NEGATIVE (Negative) Independent Interpretation I performed an independent interpretation of an: CT Scan (My interpretation of CT scan: Pleural effusions bilaterally small, possible superimposed pneumonia) Radiology Impression Discussion of test interpretation with radiology: I have reviewed the radiologist's reading. Radiologist Impression: There is cardiomegaly. There are patchy bilateral pulmonary opacities. There is prominence of the pulmonary vascularity. No consolidation. No acute fracture. There is soft tissue edema. There is amputation at the base of the proximal phalanx of the big toe. There are osteolytic changes of the distal 1st metatarsal. There is also mild subchondral sclerosis. There are diffuse vascular calcifications. There are no acute fractures. There are small ossific densities adjacent to the distal phalanx of the 5th digit and adjacent to the middle phalanx of the 5th digit secondary to likely old trauma and/or benign soft tissue ossification. There is [id number] calcaneal spur. There is a small osteophyte at the Achilles tendon insertion. No radiopaque foreign body. Critical Care Time Critical Care Time Critical Care Time: Yes Total Critical Care Time: 90 Attestation: I have personally provided critical care time. Time includes review of lab data, radiology results, discussion with consultants, and monitoring for potential decompensation. Intervention performed as documented. Discharge Plan Discharge Clinical Impression: Acute osteomyelitis of foot, Pneumonia, New onset of congestive heart failure, Atrial fibrillation with RVR, Acute kidney injury superimposed on CKD, Acute dehydration Prescriptions: No Action doxycycline monohydrate 100 mg capsule 100 mg PO BID Nicotrol NS 10 mg/mL spray,non-aerosol intranasal Lokelma 10 gram powder in packet 10 g PO DAILY dapagliflozin propanediol [Farxiga] 10 mg tablet 10 mg PO DAILY finasteride 5 mg tablet 5 mg PO DAILY amlodipine 10 mg tablet 10 mg PO DAILY tamsulosin 0.4 mg capsule PO metoprolol succinate 100 mg tablet extended release 24 hr 100 mg PO DAILY aspirin 81 mg tablet,chewable 1 tab PO DAILY Incruse Ellipta 62.5 mcg/actuation blister with device inhalation DAILY atorvastatin 80 mg tablet 80 mg PO DAILY Xarelto 2.5 mg tablet PO DAILY hydralazine 25 mg tablet 50 mg PO TID sodium bicarbonate 650 mg tablet 650 mg PO TID cholecalciferol (vitamin D3) 1,250 mcg (50,000 unit) capsule 1,250 mcg PO QWEEK Qty: 14 1RF Print Language: Tamazight
[2025-02-20] MEDS: 0.9 % Sodium Chloride 2,500 ML 999 ML IVCONT (01:32)
[2025-02-20] MEDS: Albuterol Sulfate 2.5 MG, Albuterol/Iprat 2.5/0.5MG 3 ML 3 ML INHALE (01:40)
[2025-02-20 01:42] LABS: MANUAL DIFF FLAG NO
[2025-02-20] MEDS: Piperacillin Sodium/Tazobactam 3.375 GM in 0.9 % Sodium Chloride 50 ML IV (01:42)
[2025-02-20 01:44] LABS: Basophils Absolute Auto 0.1 X10*3/uL (0.0-0.2); Basophils Percent Auto 0.5 % (0-2); Eosinophils Percent Auto 0.1 % (0-4); Hematocrit 28.1 % (42.0-52.0); Hemoglobin 9.4 g/dl (14.0-18.0); Imm Gran Abs Auto 0.12 X10*3/uL (0.00-0.03); Imm Gran Pct Auto 0.8 % (0.0-0.4); Lymphocytes Absolute Auto 0.4 X10*3/uL (1.2-4.9); Lymphocytes Percent Auto 3.1 % (20-40); Mean Corpuscular HGB Conc 33.5 g/dl (31.0-36.0); Mean Corpuscular Hemoglobin 29.6 pg (27.0-33.0); Mean Corpuscular Volume 88.4 fL (80.0-98.0); Mean Platelet Volume 9.8 fL (9.4-12.4); Monocytes Absolute Auto 0.9 X10*3/uL (0.1-1.2); Monocytes Percent Auto 6.2 % (2-11); Neutrophils Absolute Auto 12.8 x10*3/uL (2.0-8.3); Neutrophils Percent Auto 89.3 % (45-73); Platelet Count 293 X10*3/uL (160-400); Red Blood Count 3.18 X10*6/uL (4.60-5.80); Red Cell Distribution Width 14.1 % (11.0-16.0); White Blood Count 14.3 X10*3/uL (4.8-10.8)
[2025-02-20 01:44] LABS: Venous Blood Gas Refer to POC result
[2025-02-20 01:48] LABS: VBG HCO3 16 mmol/L (22-26); VBG pCO2 21 mmHg; VBG pH 7.49 (7.32-7.43); VBG pO2 69 mmHg
[2025-02-20] MEDS: Magnesium Sulfate/H2O 2 GM/50 ML PIGGYBACK IV (01:52)
[2025-02-20 01:58] LABS: Lactic Acid 1.5 mmol/L (0.5-2.0)
[2025-02-20 02:04] LABS: B Type Natriuretic Peptide 3183 pg/mL (<100)
[2025-02-20 02:07] LABS: Alanine Aminotransferase < 6 U/L (0-40); Anion Gap 22 (12-20); Aspartate Amino Transferase 29 U/L (5-37); Bilirubin Direct 0.1 mg/dL (0.0-0.5); Bilirubin Total 0.3 mg/dL (0.0-1.0); Blood Urea Nitrogen 65 mg/dL (9-16); Calcium 8.6 mg/dL (8.4-10.2); Carbon Dioxide 14 mmol/L (22-29); Chloride 106 mmol/L (96-108); Glucose Random 146 mg/dL (60-115); Potassium 3.8 mmol/L (3.3-5.1); Sodium 138 mmol/L (135-145); Total Protein 7.3 g/dL (6.5-8.0)
[2025-02-20 02:08] LABS: Alkaline Phosphatase 80 U/L (39-117); Estimated Glomerular Filt Rate 8
[2025-02-20] MEDS: vancomycin HCL 1,000 MG in 0.9 % Sodium Chloride 250 ML 270 MG IV (02:19)
[2025-02-20 02:20] LABS: Influenza A PCR NEGATIVE (Negative); Influenza B PCR NEGATIVE (Negative); Resp Syncy Virus RNA Qual PCR NEGATIVE (Negative); SARS COV2 PCR INHOUSE NEGATIVE (Negative)
[2025-02-20] MEDS: Acetaminophen 325 MG TABLET 975 MG PO (02:29)
--- NOTE | 2025-02-20 02:36 | PC.NURSE ---
ivf canceled per dr hampton charted accordingly in mar
[2025-02-20] MEDS: Metoprolol Tartrate 5 MG/5 ML VIAL IVPUSH (02:55)
--- NOTE | 2025-02-20 04:41 | PC.NURSE ---
Took over care from RN Ranulfo, pt changed into hospital attire, pt reposition for comfort.
--- NOTE | 2025-02-20 05:13 | PC.NURSE ---
positive pulses to left foot, area marked and dated. pt repositioned for comfort call kennedy at the bedside.
--- NOTE | 2025-02-20 06:06 | PM.IMHP ---
History of Present Illness Date of Service: 02/20/25 <Monik Crockett PA-C - Last Filed: 02/20/25 06:28> Attending physician on admission: Leticia Mc <Monik Crockett PA-C - Last Filed: 02/20/25 06:28> Chief Complaint: Weakness, chills <Monik Crockett PA-C - Last Filed: 02/20/25 06:28> Patient is 64 year male with a past medical history significant for stage I COPD, chronic respiratory failure on O2, WENDY s/p right BKA, HTN, a AFib on Xarelto, type 2 diabetes, just recently s/p left great toe amputation 3 weeks ago, who presented to the ED due to increased redness, swelling, pain at the amputation site as well as weakness, chills, body aches, cough, fever and shortness of breath for the past few days. The patient arrived at 83% on room air with improvement to 98% via NRb by EMS. The patient is very drowsy and unable to give a history at this time. History was obtained from the ED provider. Per ED note Patient comes to the emergency room via ambulance from home. According to EMS, patient has been complaining of cough, subjective fever, shortness of breath for couple of days, oxygen saturation was 83% on room air. Patient has history of COPD at home, oxygen dependent per patient. Does not know how many L. also, 3 weeks ago, patient had a left great toe amputation done. Patient states that the amputation site is extremely painful to touch, warm and swollen. Patient denies abdominal pain or urinary symptoms. <Monik Crockett PA-C - Last Filed: 02/20/25 06:28> Review of Systems Review of Systems: Yes Unobtainable due to mental status <Monik Crockett PA-C - Last Filed: 02/20/25 06:28> [facility] Medical History: Medical History Urinary urgency Urinary tract infection Urinary hesitancy Tubular adenoma of colon Smoker Seborrheic keratoses SND (sensorineural deafness) Right BKA infection Peripheral vascular disease WENDY (obstructive sleep apnea) Microalbuminuria Lung nodule seen on imaging study Lightheadedness Latent tuberculosis LVH (left ventricular hypertrophy) Abnormal PFTs Hyponatremia Hypertensive retinopathy of both eyes Hyperkalemia Hepatitis C Hearing loss of both ears Hypertension Erectile dysfunction Cataract CKD (chronic kidney disease) Bladder wall thickening BPH (benign prostatic hyperplasia) Anticoagulated Anemia Peripheral neuropathy Diabetes mellitus, type II CVA (cerebral vascular accident) Adrenal nodule Kidney cysts <VIOLETTE Mireles Last Filed: 02/20/25 06:28> Family History: Family History Brother Diabetes Mother Diabetes Father Diabetes <VIOLETTE Mireles Last Filed: 02/20/25 06:28> Surgical History: Surgical History Hx of right BKA <VIOLETTE Mireles Last Filed: 02/20/25 06:28> Social History: Social History Alcohol intake: never Patient Tobacco Use Status: Current someday Tobacco user Smoked in Last 30 Days: No Use of substances other than those prescribed or required for medical reasons: No Advance Directives: No Advance Directives Information Provided: Yes Do you have a plan to hurt others: No Plan <VIOLETTE Mireles Last Filed: 02/20/25 06:28> Meds Allergies/Adverse reactions: Allergies Allergy/AdvReac Type Severity Reaction Status Date / Time morphine Allergy Hallucinati Verified 02/20/25 01:11 ons bupropion AdvReac Hallucinati Verified 02/20/25 01:11 ons <VIOLETTE Mireles Last Filed: 02/20/25 06:28> Active Medications: Current Medications Acetaminophen (Acetaminophen 325 Mg Tablet) 975 mg PO Q6H PRN PRN Reason: Pain, Mild 1-3,fever,headache Albuterol/Ipratropium (Albuterol/Iprat 2.5/0.5mg 3 Ml Ampul.Neb) 3 ml INHALE Q4H PRN PRN Reason: Shortness of Breath/Wheezing Calcium Carbonate (Calcium Carbonate 750 Mg Tab.Chew) 750 mg PO Q4H PRN PRN Reason: Heartburn Heparin Sodium (Porcine) (Heparin Sodium,Porcine 5,000 Unit/Ml Vial) 5,000 unit SUBCUT Q8H [facility] Magnesium Hydroxide (Milk Of Magnesia 30 Ml Oral.Susp) 30 ml PO DAILY PRN PRN Reason: Constipation Melatonin (Melatonin 3 Mg Tablet) 6 mg PO BEDTIME PRN PRN Reason: Insomnia Ondansetron HCl (Ondansetron Hcl 4 Mg/2 Ml Vial) 4 mg IVPUSH Q8H PRN PRN Reason: Nausea and Vomiting Sodium Chloride (0.9 % Sodium Chloride Flush 3 Ml Syringe) 3 ml IVFLUSH QSHIFT [facility] <Monik Crockett PA-C - Last Filed: 02/20/25 06:28> Home medications: Home Medications ?Medication ?Instructions ?Recorded ?Confirmed ?Last Taken ?Type amlodipine 10 mg tablet 10 mg PO DAILY 12/19/24 Unknown History aspirin 81 mg chewable tablet 1 tab PO DAILY 12/19/24 Unknown History atorvastatin 80 mg tablet 80 mg PO DAILY 12/19/24 Unknown History dapagliflozin propanediol 10 mg 10 mg PO DAILY 12/19/24 Unknown History tablet (Farxiga) doxycycline monohydrate 100 mg 100 mg PO BID 12/19/24 Unknown History capsule finasteride 5 mg tablet 5 mg PO DAILY 12/19/24 Unknown History metoprolol succinate 100 mg 100 mg PO DAILY 12/19/24 Unknown History tablet,extended release 24 hr nicotine 10 mg/mL nasal spray intranasal 12/19/24 Unknown History (Nicotrol NS) sodium zirconium cyclosilicate 10 10 g PO DAILY 12/19/24 Unknown History gram oral powder packet (Lokelma) tamsulosin 0.4 mg capsule mg PO 12/19/24 Unknown History umeclidinium 62.5 mcg/actuation inhalation DAILY 12/19/24 Unknown History blister powder for inhalation (Incruse Ellipta) hydralazine 25 mg tablet 50 mg PO TID 12/30/24 Unknown History rivaroxaban 2.5 mg tablet (Xarelto) mg PO DAILY 12/30/24 Unknown History sodium bicarbonate 650 mg tablet 650 mg PO TID 12/30/24 Unknown History <Monik Crockett PA-C - Last Filed: 02/20/25 06:28> Physical Exam Vital Signs and Narrative: Vital Signs: Last Vital Signs Temp 98.2 F 02/20/25 05:55 Pulse 86 02/20/25 05:55 Resp 15 02/20/25 05:55 BP 132/65 02/20/25 05:55 Pulse Ox 96 02/20/25 05:55 O2 Del Method Nasal Cannula 02/20/25 05:55 O2 Flow Rate 2 02/20/25 05:55 Oxygen Flow Rate 2 02/20/25 01:05 BMI result Body Mass Index 24.3 <Monik Crockett PA-C - Last Filed: 02/20/25 06:28> General: Arousable but drowsy, unable to stay awake for conversation, no acute distress Resp: Crackles bilateral lower lungs, no wheezing CVS: S1, S2, RRR GI: +BS, NT, no distention Skin: Warm, dry. erythema L foot, increased warmth, erythema does not spread beyond marked area. no foul odor. Neuro: Cranial nerves II-XII grossly intact bilaterally. Motor grossly intact bilaterally Extremities: No LE edema, s/p R BKA Psych: Appropriate affect <Monik Crockett PA-C - Last Filed: 02/20/25 06:28> Results Labs CBC and Chem 7: 02/20/25 01:37 02/20/25 01:37 <VIOLETTE Mireles Last Filed: 02/20/25 06:28> Labs: Laboratory Results - last 24 hr 02/20/25 02/20/25 02/20/25 01:36 01:37 01:42 MCV 88.4 MCH 29.6 MCHC 33.5 RDW 14.1 Plt Count 293 D MPV 9.8 Immature Gran % (Auto) 0.8 H Neut % (Auto) 89.3 H Lymph % (Auto) 3.1 L Kaufman % (Auto) 6.2 Eos % (Auto) 0.1 Baso % (Auto) 0.5 Lymph # (Auto) 0.4 L [place] # (Auto) 0.9 Eos # (Auto) 0.0 Baso # (Auto) 0.1 Abs Immat Gran (auto) 0.12 H Absolute Neuts (auto) 12.8 H Absolute Nucleated RBC 0.000 Nucleated RBC % (auto) 0.0 Hold Blue Top SEE NOTE VBG pH 7.49 H VBG pCO2 21 VBG pO2 69 VBG HCO3 16 L VBG O2 Saturation 95.0 VBG Base Excess -5.0 Anion Gap 22 H Estim Creat Clear Calc 11.0 Estimated GFR 8 Random Glucose 146 H Lactic Acid 1.5 Calcium 8.6 Total Bilirubin 0.3 Direct Bilirubin 0.1 AST 29 ALT < 6 Alkaline Phosphatase 80 B-Natriuretic Peptide 3183 H Total Protein 7.3 Albumin 3.0 L Influenza Type A (PCR) NEGATIVE Influenza Type B (PCR) NEGATIVE RSV RNA Qual (PCR) NEGATIVE SARS-CoV-2 RNA (RT-PCR) NEGATIVE <Monik MAHESH Crockett-C - Last Filed: 02/20/25 06:28> Assessment and Plan (1) Sepsis: Status: Acute <ISIDRO MirelesC - Last Filed: 02/20/25 06:28> (2) Acute osteomyelitis of foot: Status: Acute <ISIDRO MirelesC - Last Filed: 02/20/25 06:28> (3) Septic arthritis: Status: Acute <ISIDRO MirelesC - Last Filed: 02/20/25 06:28> (4) Acute and chronic respiratory failure: Status: Acute <ISIDRO MirelesC - Last Filed: 02/20/25 06:28> (5) New onset of congestive heart failure: Status: Acute <ISIDRO MirelesC - Last Filed: 02/20/25 06:28> (6) Atrial fibrillation with RVR: Status: Acute <ISIDRO MirelesC - Last Filed: 02/20/25 06:28> (7) Acute kidney injury superimposed on CKD: Status: Acute <ISIDRO MirelesC - Last Filed: 02/20/25 06:28> (8) Anemia in chronic kidney disease (CKD): Qualifiers: Chronic kidney disease stage: stage 4 (GFR 15-29) Qualified Code(s): N18.4 - Chronic kidney disease, stage 4 (severe); D63.1 - Anemia in chronic kidney disease <ISIDRO MirelesC - Last Filed: 02/20/25 06:28> Status: Acute <Monik Crockett PA-C - Last Filed: 02/20/25 06:28> Patient is 64 year male with a past medical history significant for stage I COPD, chronic respiratory failure on O2, WENDY, s/p right BKA, HTN, a AFib on Xarelto, type 2 diabetes, just recently s/p left great toe amputation 3 weeks ago, who presented to the ED due to increased redness, swelling, pain at the amputation site as well as weakness, chills, body aches, cough, fever and shortness of breath for the past few days. Sepsis secondary to acute osteomyelitis/septic arthritis L foot - WBC 14.3, tachycardic and tachypneic, fever of 101.9, lactic acid normal, blood cultures x2 pending, not severe sepsis - left foot x-ray: Amputation of the base of proximal phalanx of the big toe. Lytic changes highly suspicious for osteomyelitis of the distal 1st metatarsal and septic arthritis of the 1st metatarsophalangeal joint. - started on vancomycin and Zosyn, continue - ortho and ID consult - follow CBC and BMP Acute on chronic hypoxic respiratory failure [place] to new onset CHF - hypoxia worsened with IVF - patient is on chronic oxygen at home, liters unknown - BNP 3183 - CXR with cardiomegaly. Bilateral pulmonary opacity secondary to pulmonary venous congestion, can not exclude and/or pneumonia - chest CT with interstitial and airspace consolidation with bilateral pleural effusions, differential considerations would include pulmonary edema, pneumonia or subsegmental atelectasis - patient on vancomycin and Zosyn - Lasix 80 mg x 1 dose, appreciate Nephrology/cardiology input regarding further diuretics - echo - monitor CBC and BMP New onset AFib with RVR - patient denied previous diagnosis of AFib however does take metoprolol and Xarelto - rate 123 initially, given 5 mg IV metoprolol with good response - check TSH - cardiology consult as above - monitor on tele UMAIR on CKD - creatinine 7.3 from 2.83 2 months ago - renal ultrasound ordered - nephrology consult Stage I COPD, no acute exacerbation - no wheezing on exam - patient given DuoNeb, Solu-Medrol 125 mg and IV Mag in ED - duo nebs as needed - no need for further steroids at this time Anemia secondary to CKD - hemoglobin 9.4, no need for blood transfusion at this time - monitor CBC HTN - continue home meds Type 2 diabetes - sliding scale insulin - diabetic diet - hold p.o. diabetes meds - check A1c Presumed full code, patient to drowsy to respond, reassess when more awake VTE prophylaxis: Heparin, switched from Xarelto due to creatinine clearance Patient with sepsis secondary to osteomyelitis and septic arthritis complicated by new onset CHF and AFib with UMAIR on CKD, requiring admission for at least 2 midnight stay for IV antibiotics, specialty consultations and monitoring. <Monik Crockett PA-C - Last Filed: 02/20/25 06:28> Patient is 64 year male with a past medical history significant for stage I COPD, chronic respiratory failure on O2, WENDY, s/p right BKA, HTN, a AFib on Xarelto, type 2 diabetes, just recently s/p left great toe amputation 3 weeks ago, who presented to the ED due to increased redness, swelling, pain at the amputation site as well as weakness, chills, body aches, cough, fever and shortness of breath for the past few days. Sepsis secondary to acute osteomyelitis/septic arthritis L foot - WBC 14.3, tachycardic and tachypneic, fever of 101.9, lactic acid normal, blood cultures x2 pending, not severe sepsis - left foot x-ray: Amputation of the base of proximal phalanx of the big toe. Lytic changes highly suspicious for osteomyelitis of the distal 1st metatarsal and septic arthritis of the 1st metatarsophalangeal joint. - started on vancomycin and Zosyn, continue - ID consult - follow CBC and BMP Acute on chronic hypoxic respiratory failure [place] to new onset CHF - hypoxia worsened with IVF - patient is on chronic oxygen at home, liters unknown - BNP 3183 - CXR with cardiomegaly. Bilateral pulmonary opacity secondary to pulmonary venous congestion, can not exclude and/or pneumonia - chest CT with interstitial and airspace consolidation with bilateral pleural effusions, differential considerations would include pulmonary edema, pneumonia or subsegmental atelectasis - patient on vancomycin and Zosyn - Lasix 80 mg x 1 dose, appreciate Nephrology/cardiology input regarding further diuretics - echo - monitor CBC and BMP New onset AFib with RVR - patient denied previous diagnosis of AFib however does take metoprolol and Xarelto - rate 123 initially, given 5 mg IV metoprolol with good response - check TSH - cardiology consult as above - monitor on tele UMAIR on CKD - creatinine 7.3 from 2.83 2 months ago - renal ultrasound ordered - nephrology consult Stage I COPD, no acute exacerbation - no wheezing on exam - patient given DuoNeb, Solu-Medrol 125 mg and IV Mag in ED - duo nebs as needed - no need for further steroids at this time Anemia secondary to CKD - hemoglobin 9.4, no need for blood transfusion at this time - monitor CBC HTN - continue home meds Type 2 diabetes - sliding scale insulin - diabetic diet - hold p.o. diabetes meds - check A1c Presumed full code, patient to drowsy to respond, reassess when more awake VTE prophylaxis: Heparin, switched from Xarelto due to creatinine clearance Patient with sepsis secondary to osteomyelitis and septic arthritis complicated by new onset CHF and AFib with UMAIR on CKD, requiring admission for at least 2 midnight stay for IV antibiotics, specialty consultations and monitoring. <Leticia Mc MD - Last Filed: 02/20/25 06:28> Quality Stroke Does the patient have a stroke diagnosis?: No <Monik Crockett PA-C - Last Filed: 02/20/25 06:28> VTE Prior VTE?: No <Monik Crockett PA-C - Last Filed: 02/20/25 06:28> VTE Risk Level:: Medical - moderate - high <Monik Crockett PA-C - Last Filed: 02/20/25 06:28> VTE Device Contraindication: Treatment Not Indicated <VIOLETTE Mireles Last Filed: 02/20/25 06:28> VTE Drug Contraindication: N/A - Med Ordered <Monik Crockett PA-C - Last Filed: 02/20/25 06:28>
[2025-02-20] MEDS: Furosemide 100 MG/10 ML VIAL 80 MG IVPUSH (06:14)
--- NOTE | 2025-02-20 06:19 | PC.NURSE ---
when falling into a deep sleep patient oxygen on 2L NC dropped to 77, placed on oxymask at this time on 2L
[2025-02-20] MEDS: Heparin Sodium,Porcine 5,000 UNIT/ML VIAL 5000 UNIT SUBCUT (06:21)
--- NOTE | 2025-02-20 06:44 | PC.NURSE ---
reposition by for comfort and medicated.
--- NOTE | 2025-02-20 06:54 | PHA.PROG ---
Admission Date/Time: February 20, 2025 04:57 Indication: BONE AND JOINT Weight in k.193 kg Adjusted body weight in Kg: [place] body weight in Kg: Obesity Dosing Indication % IBW: Serum Creatinine - Last 168 Hours 02/20/25 01:37 Creatinine 7.30 H* Estimated CrCl and GFR - Last 168 Hours 02/20/25 01:37 Estim Creat Clear Calc 11.0 Estimated GFR 8 Vancomycin Loading Dose: 1000 MG Current Vancomycin Dosing Regimen: PENDING POST TROUGH LEVEL ON 02/21/25 @0600 Vancomycin Monitoring using AUC goal of 400 - 600 range with trough as surrogate marker: Date and Time for next Vancomycin Level to be drawn: 02/21/25 @0600 Pharmacist Comments on Vancomycin Plan: Vancomycin dosing will take advantage of [employer] as a clinical decision support tool that uses Bayesian modeling to calculate individual patient's pharmacokinetic parameters and forecast the patient's drug concentration time course with the target goal AUC 24 range of 400 - 600 mg/L/hr.
--- NOTE | 2025-02-20 07:00 | CA_ITS ---
Transthoracic Echocardiogram Patient (Last, First, Middle): Renato Hinson, Gender: Male Date of : 1960 Age: 64 Procedure Date: 02/20/2025 Procedure Type: Transthoracic [place]ogram [place] [facility] [place]: 182.88 cm Weight: 81.19 kg BSA: 2.03 m2 Heart Rate: 81 bpm BP: 135 / 66 mmHg C D Stripper: MARY Referring MD: Monik Crockett PA-C Symptoms: ?new onset CHF Study Quality: Fair w/Contrast ECG Rhythm: Sinus Conclusions: - Normal left ventricular cavity size. There is moderately increased left ventricular wall thickness. The left ventricular systolic function is mildly decreased. The visually estimated ejection fraction is between 40-45%. - Spectral Doppler is indicative of a pseudonormal filling pattern. - Elevated filling pressures. - Normal right ventricular cavity size and systolic function. - Moderately elevated right atrial pressure. Findings Procedure Information Contrast agent, definity, is being given per protocol without apparent complications. The study quality is limited by an uncooperative patient. Left Ventricle Normal left ventricular cavity size. There is moderately increased left ventricular wall thickness. The left ventricular systolic function is mildly decreased. The visually estimated ejection fraction is between 40-45%. There is mild global hypokinesis. Abnormal diastolic function is noted. Spectral Doppler is indicative of a pseudonormal filling pattern. Elevated filling pressures. Right Ventricle Normal right ventricular cavity size and systolic function. Atria The left atrium is mildly dilated. The right atrium is normal in size. Aortic Valve There is a normal trileaflet aortic valve. There is mild calcification of the aortic valve. There is no aortic valve stenosis. There is no aortic valve regurgitation. Mitral Valve The mitral valve appears normal. There is trace mitral valve regurgitation. There is no mitral valve stenosis. Pulmonic Valve The pulmonic valve is normal. There is trace pulmonic valve regurgitation. Tricuspid Valve Normal tricuspid valve structure. There is no tricuspid valve regurgitation. Tricuspid regurgitation envelope is inadequate for calculation of right ventricular systolic pressure. Moderately elevated right atrial pressure. Great Vessels All visible segments of the aorta are normal in size. The visualized portions of the pulmonary artery and branches are normal. Venous The inferior vena cava is dilated and collapses greater than 50% with inspiration. Pericardium/Pleural There is no evidence of pericardial effusion. Prior Study Comparison No prior study available for comparison. Measurements 2D Linear Measurements IVSd: 1.39 0.6-0.9/0.6-1.0 cm LVIDd: 5.70 3.9-5.3/4.2-5.9 cm LVIDd Index: 2.81 2.4-3.2/2.2-3.1 cm/m2 LVIDs: 4.82 2.0-3.6 cm LVPWd: 1.46 0.7-1.1 cm LA Diam: 4.70 2.7-3.8/3.0-4.0 cm LAIDs Index: 2.32 1.5-2.3 cm/m2 LV Mass: 457.43 67-162/88-224 g LV Mass Index: 225.33 43-95/49-115 g/m2 LVOT Diam: 2.40 3.0+(-)1.3 cm 2D Systolic Function EF 4C: 33.90 >55% EF 2C: 45.80 >55% EF BiP: 40.90 >55% Mitral Valve MV Pk E: 1.09 MV PK A: 1.02 MV Decel Time: 195.00 E/A: 1.10 E'Lateral: 5.03 E'Medial: 3.81 E/E' Med: 28.60 E/E' Lat: 21.70 PHT: 57.00 MVA PHT: 3.86 Decel [place]: 5.59 Aortic Valve AoV Pk Job: 1.48 AoV Mn Job: 1.05 AoV VTI: 0.30 AoV Pk Grad: 9.00 Aov Mn Grad: 5.00 MELANY Cont.VTI: 3.18 LVOT LVOT Pk Job: 1.02 LVOT Mn Job: 0.68 LVOT VTI: 0.21 LVOT Pk Grad: 4.00 LVOT Mn Grad: 2.00 LVOT Diam: 2.40 LVOT Area: 4.52 Diastolic Function MV Pk E: 1.09 MV Pk A: 1.02 E/A: 1.10 E'Medial: 3.81 E/E' Med: 28.60 E' Laterial: 5.03 E/E' Lat: 21.70 Right Ventricle TAPSE (mm): 30.10 TVS' Job: 11.90 Tricuspid Valve RA Press: 8.00 Great Vessels Aorta Sinus of Valsalva: 3.70 2.0-3.5 cm Ao Asc: 3.70 2.1-3.4 cm Ao Arch: 4.10 Pulmonary Valve PV Pk Job: 0.88 Peak PV Grad: 3.00 Updated in Other Vendor System with Status of Final Familia Howell MD electronically signed on 02/21/2025 3:02:03 PM with status of Final
[2025-02-20 07:01] LABS: Basophils Percent Auto 0.3 % (0-2); Hematocrit 27.2 % (42.0-52.0); Hemoglobin 8.7 g/dl (14.0-18.0); Imm Gran Abs Auto 0.19 X10*3/uL (0.00-0.03); Imm Gran Pct Auto 1.4 % (0.0-0.4); Lymphocytes Absolute Auto 0.2 X10*3/uL (1.2-4.9); Lymphocytes Percent Auto 1.4 % (20-40); MANUAL DIFF FLAG SCAN; Mean Corpuscular Volume 90.7 fL (80.0-98.0); Mean Platelet Volume 9.9 fL (9.4-12.4); Monocytes Absolute Auto 0.3 X10*3/uL (0.1-1.2); Monocytes Percent Auto 2.3 % (2-11); Neutrophils Absolute Auto 13.3 x10*3/uL (2.0-8.3); Neutrophils Percent Auto 94.6 % (45-73); Platelet Count 266 X10*3/uL (160-400); Red Cell Distribution Width 14.1 % (11.0-16.0); SCAN SMEAR FLAG 1; White Blood Count 14.1 X10*3/uL (4.8-10.8)
[2025-02-20 07:13] LABS: Thyroid Stimulating Hormone 1.35 uIU/mL (0.32-4.0)
[2025-02-20 07:29] LABS: Anion Gap 16 (12-20); Blood Urea Nitrogen 64 mg/dL (9-16); Calcium 8.2 mg/dL (8.4-10.2); Carbon Dioxide 16 mmol/L (22-29); Chloride 108 mmol/L (96-108); Creatinine Clr Calc Pharmacy 11.2; Estimated Glomerular Filt Rate 8; Glucose Random 230 mg/dL (60-115); Potassium 3.7 mmol/L (3.3-5.1); Sodium 136 mmol/L (135-145)
[2025-02-20 07:32] LABS: Glucose, Whole Blood 193 mg/dL (60-115)
[2025-02-20] MEDS: Insulin Lispro 100 UNIT/ML 3 ML VIAL SUBCUT ×4 (07:44→21:32)
[2025-02-20] MEDS: 0.9 % Sodium Chloride Flush 3 ML SYRINGE IVFLUSH ×3 (07:45→21:33)
--- NOTE | 2025-02-20 07:49 | PC.NURSE ---
This RN assumed care of patient @ 0700. POC 193 no s/sx of hypo/hyperglycemia. Medicated per DEC. IV lines patent. Patient currently on oxygen 2 L face mask 99%.
[2025-02-20 08:00] LABS: Estimated Average Glucose 117 mg/dL; Hemoglobin A1C 87.6077 umol/L; Hemoglobin A1c % 5.7 % (<6.0); Total Hemoglobin (HGBA1C) 2287.3379 umol/L
[2025-02-20] MEDS: Piperacillin Sodium/Tazobactam 2.25 GM in 0.9 % Sodium Chloride 50 ML IV ×2 (08:26→17:07)
--- NOTE | 2025-02-20 08:35 | PM.CNNEP ---
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 Presented 02/20 with redness, swelling at site of recent toe amputation, fevers, chills and shortness of breath. being treated for osteoyelitis. nephrology consulted for UMAIR creatinine increased from baseline 2.83 to 7/3 on presentation. patient reports he voided urine a few hours ago a little bit, unmeasured. reports some nausea, no vomiting or diarrhea no rash states he is short of breath (on non-rebreather). denies pain, difficulty urinating, swelling states he had been eating and drinking normally before he came to the hospital states he has not been on any new OTC or prescribed medications patient received 80mg IVP lasix this a.m. Review of Systems Constitutional: Reports chills, Reports fatigue, Reports fever(s) and Reports malaise Cardiovascular: Denies chest pain, Denies leg edema and Reports dyspnea Respiratory: Denies cough and Reports dyspnea Gastrointestinal: Denies abdominal pain, Denies diarrhea, Reports nausea and Denies vomiting Genitourinary: Denies hematuria, Denies oliguria, Denies dysuria and Denies flank pain Musculoskeletal: Denies back pain, Denies arthralgias and Denies muscle cramps Skin/Breast: Denies rash Denies tremor(s) Endocrine: Reports fatigue PMFSH Past Medical History Medical History Urinary urgency Urinary tract infection Urinary hesitancy Tubular adenoma of colon Smoker Seborrheic keratoses SND (sensorineural deafness) Right BKA infection Peripheral vascular disease WENDY (obstructive sleep apnea) Microalbuminuria Lung nodule seen on imaging study Lightheadedness Latent tuberculosis LVH (left ventricular hypertrophy) Abnormal PFTs Hyponatremia Hypertensive retinopathy of both eyes Hyperkalemia Hepatitis C Hearing loss of both ears Hypertension Erectile dysfunction Cataract CKD (chronic kidney disease) Bladder wall thickening BPH (benign prostatic hyperplasia) Anticoagulated Anemia Peripheral neuropathy Diabetes mellitus, type II CVA (cerebral vascular accident) Adrenal nodule Kidney cysts Family History Family History Brother Diabetes Mother Diabetes Father Diabetes Surgical History Surgical History Hx of right BKA Social History Social History Alcohol intake: never Patient Tobacco Use Status: Never used Tobacco Smoked in Last 30 Days: No Use of substances other than those prescribed or required for medical reasons: No Advance Directives: No Advance Directives Information Provided: Yes Do you have a plan to hurt others: No Plan Nutrition Risks: No Nutritional Risk Meds Allergies Allergy/AdvReac Type Severity Reaction Status Date / Time morphine Allergy Hallucinati Verified 02/20/25 01:11 ons bupropion AdvReac Hallucinati Verified 02/20/25 01:11 ons Active Medications: Current Medications Acetaminophen (Acetaminophen 325 Mg Tablet) 975 mg PO Q6H PRN PRN Reason: Pain, Mild 1-3,fever,headache Albuterol/Ipratropium (Albuterol/Iprat 2.5/0.5mg 3 Ml Ampul.Neb) 3 ml INHALE Q4H PRN PRN Reason: Shortness of Breath/Wheezing Amlodipine Besylate (Amlodipine Besylate 10 Mg Tablet) 10 mg PO DAILY [facility]; Protocol Aspirin (Aspirin 81 Mg Tab.Chew) 81 mg PO DAILY [facility] Atorvastatin Calcium (Atorvastatin Calcium 80 Mg Tablet) 80 mg PO DAILY [facility] Calcium Carbonate (Calcium Carbonate 750 Mg Tab.Chew) 750 mg PO Q4H PRN PRN Reason: Heartburn Dextrose (Dextrose 50 % 25 Gm/50 Ml Syringe) 25 gm IVPUSH Q15M PRN; Protocol PRN Reason: per Hypoglycemia Standing Ord. Finasteride (Finasteride 5 Mg Tablet) 5 mg PO DAILY [facility] Glucose (Glucose Gel 15 Gm Gel..Gram.) 15 gm PO Q15M PRN; Protocol PRN Reason: per Hypoglycemia Standing Ord. Hydralazine HCl (Hydralazine Hcl 50 Mg Tablet) 50 mg PO TID [facility]; Protocol Piperacillin Sod/Tazobactam (Sod 2.25 gm/ Sodium Chloride) 50 mls @ 100 mls/hr IV Q8H [facility] Last Infusion: 02/20/25 08:57 Dose: Infused Vancomycin HCl 500 mg/ Sodium (Chloride) 110 mls @ 110 mls/hr IV ONCE ONE Stop: 02/21/25 08:59 Insulin Human Lispro (Insulin Lispro 100 Unit/Ml 3 Ml Vial) 0 unit SUBCUT QIDACHS [facility]; Protocol Last Admin: 02/20/25 07:44 Dose: 2 unit Magnesium Hydroxide (Milk Of Magnesia 30 Ml Oral.Susp) 30 ml PO DAILY PRN PRN Reason: Constipation Melatonin (Melatonin 3 Mg Tablet) 6 mg PO BEDTIME PRN PRN Reason: Insomnia Metoprolol Succinate (Metoprolol Succinate Er 100 Mg Tab.Er.24h) 100 mg PO DAILY [facility]; Protocol Ondansetron HCl (Ondansetron Hcl 4 Mg/2 Ml Vial) 4 mg IVPUSH Q8H PRN PRN Reason: Nausea and Vomiting Pharmacy Consult (Consult Rx Vancomycin Dosing) 1 each MISCELLANE DAILY PRN PRN Reason: Consult order Rivaroxaban (Rivaroxaban 2.5 Mg Tablet) 2.5 mg PO BID [facility] Sodium Bicarbonate (Sodium Bicarbonate 650 Mg Tablet) 650 mg PO TID [facility] Sodium Chloride (0.9 % Sodium Chloride Flush 3 Ml Syringe) 3 ml IVFLUSH QSHIFT [facility] Last Admin: 02/20/25 07:45 Dose: 3 ml Tamsulosin HCl (Tamsulosin Hcl 0.4 Mg Capsule) 0.4 mg PO DAILY [facility] Tiotropium Clark (Tiotropium Clark 2.5 Mcg 1 Puff/2.5 Mcg Mist.Inhal) 2 puff INHALE DAILY [facility] Vitamin D (Cholecalciferol (Vitamin D3) 25 Mcg Tablet) 25 mcg PO DAILY [facility] Home Medications ?Medication ?Instructions ?Recorded ?Confirmed ?Last Taken ?Type amlodipine 10 mg tablet 10 mg PO DAILY 12/19/24 02/20/25 02/19/25 09:00 History aspirin 81 mg chewable tablet 1 tab PO DAILY 12/19/24 02/20/25 02/19/25 09:00 History atorvastatin 80 mg tablet 80 mg PO DAILY 12/19/24 02/20/25 02/19/25 09:00 History dapagliflozin propanediol 10 mg 10 mg PO DAILY 12/19/24 02/20/25 02/19/25 09:00 History tablet (Farxiga) finasteride 5 mg tablet 5 mg PO DAILY 12/19/24 02/20/25 02/19/25 09:00 History metoprolol succinate 100 mg 100 mg PO DAILY 12/19/24 02/20/25 02/19/25 09:00 History tablet,extended release 24 hr sodium zirconium cyclosilicate 10 10 g PO DAILY 12/19/24 02/20/25 02/19/25 09:00 History gram oral powder packet (Lokelma) tamsulosin 0.4 mg capsule 0.4 mg PO DAILY 12/19/24 02/20/25 02/19/25 09:00 History umeclidinium 62.5 mcg/actuation 1 inh inhalation DAILY 12/19/24 02/20/25 02/19/25 09:00 History blister powder for inhalation (Incruse Ellipta) hydralazine 25 mg tablet 50 mg PO TID 12/30/24 02/20/25 02/19/25 09:00 History rivaroxaban 2.5 mg tablet (Xarelto) 2.5 mg PO BID 12/30/24 02/20/25 02/19/25 History sodium bicarbonate 650 mg tablet 650 mg PO TID 12/30/24 02/20/25 02/19/25 09:00 History Physical Exam Vital Signs: Last Vital Signs Temp 97.5 F 02/20/25 10:13 Pulse 85 02/20/25 10:13 Resp 11 L 02/20/25 10:13 BP 143/79 H 02/20/25 10:13 Pulse Ox 99 02/20/25 10:13 O2 Del Method Oxymask 02/20/25 10:13 O2 Flow Rate 4 02/20/25 10:13 Oxygen Flow Rate 2 02/20/25 01:05 BMI result Body Mass Index 24.3 Const General: no acute distress, alert and awake Resp Effort & Inspection: able to speak in complete sentences Auscultation: crackles Cardio Rate: regular rate Rhythm: regular rhythm Heart sounds: S1 normal heart sound present and S2 normal heart sound present GI Palpation (GI): Soft to palpation and nontender General: Yes no CVA tenderness Back/Spine/Pelvis Back: no CVA tenderness Skin Rashes: no rashes Neuro Other: no tremor, no asterixis Extrem General: Yes no pedal edema and No edema Results Lab Results 02/20/25 06:14 02/20/25 06:14 Lab results: Chemistry 02/20/25 02/20/25 01:37 06:14 Sodium 138 136 Potassium 3.8 3.7 Carbon Dioxide 14 L 16 L BUN 65 H 64 H Creatinine 7.30 H* 7.21 H* Calcium 8.6 8.2 L Hematology 02/20/25 02/20/25 01:37 06:14 WBC 14.3 H 14.1 H Hgb 9.4 L 8.7 L Plt Count 293 D 266 Assessment and Plan (1) Acute kidney injury superimposed on CKD: Status: Acute (2) Sepsis: Qualifiers: Sepsis type: sepsis due to unspecified organism Sepsis acute organ dysfunction status: unspecified Qualified Code(s): A41.9 - Sepsis, unspecified organism Status: Acute Plan UMAIR on CKD4, likely ATN from osteomyelitis patient is hypervolemic, recommend diuresis- patient already received 80mg IVP lasix this a.m.- recommend assessing response- if urine output is 300mL or greater by this afternoon, recommend second dose of 80mg IVP lasix this evening if urine output is less than 300mL by this afternoon, recommend starting lasix drip unclear if nausea related to infection or renal failure at this time hold off on HD for now, trial of diuresis first and assess clinical response follow up with BMP in the morning recommend daily electrolyte and renal function studies recommend close blood pressure and I&O monitoring recommend avoid nephrotoxins continue supportive care, will continue to follow Discussed with Dr Kuhn Procedures Date of Service Date of Service: 02/20/25
[2025-02-20 08:46] LABS: SLIDE REVIEW VERIFIED
--- NOTE | 2025-02-20 10:09 | PC.NURSE ---
attempted to wean patient off of oxymask and place him back on NC - pt noted to desat to 80% on 2L via NC while asleep. patient woken up - SPO2 ranged between 83%-87%. pt transitioned back to oxymask at this time. SPO2 @ 97% on 4L via oxymask. otherwise vss and up to date. nsr on the residential monitor. pt currently denies pain at this time. has no complaints. no apparent respiratory distress. no sob/wob noted. respirations even/unlabored. plan of care ongoing. call kennedy placed within reach.
--- NOTE | 2025-02-20 10:51 | P.EN_ITS ---
Event Note Date of Service: 02/20/25 Event Note: seen and examined this morning, labs, meds, and vitals reviewed 64 year male with a past medical history significant for stage I COPD, chronic respiratory failure on O2, WENDY, s/p right BKA, HTN, a AFib on Xarelto, type 2 diabetes, just recently s/p left great toe amputation 3 weeks ago on February 03 at [facility] [place] by Dr. Gomez, here with infection at amputation site and found to have new AFIB with RVR, Heart failure Sepsis secondary to acute osteomyelitis/septic arthritis L foot, lytic changes at the area suggestive of OM, temp of 101, and wbc 14 continue iv vanco, zosyn started 02/20 cultures pending ID consult pending Acute on chronic hypoxic respiratory failure Hayden to new onset CHF, cardiorenal syndorome IV Lasix 80 and monitor renal ouptuat if > 300, give additional 80 in evening if not then start IV Lasix drip per nephro echo cardiology consultation. New onset AFib with RVR, now rate controlled continue home metoprolol change xarelto to eliquis, was on xarelto for PVD Metabolic acidosis d/t renal failure, bicab replacement UMAIR on CKD creatinine 7.3 from 2.83 2 months ago, but 5.3 [place] [facility] [place], further testing in progress Stage I COPD, no acute exacerbation, no acute exacerbatiobn, given steroid in ED, no indication for further steroid bronchodilators PRN Anemia secondary to CKD, Hgb 9, stable HTN,continue norvasc, hydralzine, metoprolo Type 2 diabetes, A1C 6.6 sliding scale insulin diabetic diet Presumed full code, patient to drowsy to respond, reassess when more awake VTE prophylaxis: Heparin, switched from Xarelto due to creatinine clearance Time Spent With Patient Time: Total time managing care of this patient today ____ minutes.
--- NOTE | 2025-02-20 11:25 | P.CONCA_ITS ---
History of Present Illness History of Present Illness Date of Service: 02/20/25 Requesting physician: Ron Walker Chief complaint: leg infection, CHF Narrative: [age] year gentleman who had left great toe amputation at [facility] recently now presenting with worsening kidney function and hypoxia. He is in congestive heart failure by examination. Serum creatinine is more than 7. EKG showed irregularity and was read by the machine as atrial fibrillation but in fact has sinus tachycardia with premature atrial complexes. Nonspecific ST changes are noted 2. He is denying any chest pain or shortness of breath. He is on supplemental oxygen currently. He was given 80 of Lasix. He has not received in his recent antibiotics especially no bacteremia vancomycin was given to him as per [facility] chart review. [facility] Past Medical History Medical History Urinary urgency Urinary tract infection Urinary hesitancy Tubular adenoma of colon Smoker Seborrheic keratoses SND (sensorineural deafness) Right BKA infection Peripheral vascular disease WENDY (obstructive sleep apnea) Microalbuminuria Lung nodule seen on imaging study Lightheadedness Latent tuberculosis LVH (left ventricular hypertrophy) Abnormal PFTs Hyponatremia Hypertensive retinopathy of both eyes Hyperkalemia Hepatitis C Hearing loss of both ears Hypertension Erectile dysfunction Cataract CKD (chronic kidney disease) Bladder wall thickening BPH (benign prostatic hyperplasia) Anticoagulated Anemia Peripheral neuropathy Diabetes mellitus, type II CVA (cerebral vascular accident) Adrenal nodule Kidney cysts Family History Family History Brother Diabetes Mother Diabetes Father Diabetes Surgical History Surgical History Hx of right BKA Social History Social History Alcohol intake: never Patient Tobacco Use Status: Never used Tobacco Smoked in Last 30 Days: No Use of substances other than those prescribed or required for medical reasons: No Advance Directives: No Advance Directives Information Provided: Yes Do you have a plan to hurt others: No Plan Nutrition Risks: No Nutritional Risk Meds Allergies Allergy/AdvReac Type Severity Reaction Status Date / Time morphine Allergy Hallucinati Verified 02/20/25 01:11 ons bupropion AdvReac Hallucinati Verified 02/20/25 01:11 ons Active Medications: Current Medications Acetaminophen (Acetaminophen 325 Mg Tablet) 975 mg PO Q6H PRN PRN Reason: Pain, Mild 1-3,fever,headache Albuterol/Ipratropium (Albuterol/Iprat 2.5/0.5mg 3 Ml Ampul.Neb) 3 ml INHALE Q4H PRN PRN Reason: Shortness of Breath/Wheezing Amlodipine Besylate (Amlodipine Besylate 10 Mg Tablet) 10 mg PO DAILY [facility]; Protocol Aspirin (Aspirin 81 Mg Tab.Chew) 81 mg PO DAILY [facility] Atorvastatin Calcium (Atorvastatin Calcium 80 Mg Tablet) 80 mg PO DAILY [facility] Calcium Carbonate (Calcium Carbonate 750 Mg Tab.Chew) 750 mg PO Q4H PRN PRN Reason: Heartburn Dextrose (Dextrose 50 % 25 Gm/50 Ml Syringe) 25 gm IVPUSH Q15M PRN; Protocol PRN Reason: per Hypoglycemia Standing Ord. Finasteride (Finasteride 5 Mg Tablet) 5 mg PO DAILY [facility] Glucose (Glucose Gel 15 Gm Gel..Gram.) 15 gm PO Q15M PRN; Protocol PRN Reason: per Hypoglycemia Standing Ord. Hydralazine HCl (Hydralazine Hcl 50 Mg Tablet) 50 mg PO TID [facility]; Protocol Piperacillin Sod/Tazobactam (Sod 2.25 gm/ Sodium Chloride) 50 mls @ 100 mls/hr IV Q8H [facility] Last Infusion: 02/20/25 08:57 Dose: Infused Vancomycin HCl 500 mg/ Sodium (Chloride) 110 mls @ 110 mls/hr IV ONCE ONE Stop: 02/21/25 08:59 Insulin Human Lispro (Insulin Lispro 100 Unit/Ml 3 Ml Vial) 0 unit SUBCUT QIDACHS [facility]; Protocol Last Admin: 02/20/25 07:44 Dose: 2 unit Magnesium Hydroxide (Milk Of Magnesia 30 Ml Oral.Susp) 30 ml PO DAILY PRN PRN Reason: Constipation Melatonin (Melatonin 3 Mg Tablet) 6 mg PO BEDTIME PRN PRN Reason: Insomnia Metoprolol Succinate (Metoprolol Succinate Er 100 Mg Tab.Er.24h) 100 mg PO DAILY [facility]; Protocol Ondansetron HCl (Ondansetron Hcl 4 Mg/2 Ml Vial) 4 mg IVPUSH Q8H PRN PRN Reason: Nausea and Vomiting Pharmacy Consult (Consult Rx Vancomycin Dosing) 1 each MISCELLANE DAILY PRN PRN Reason: Consult order Rivaroxaban (Rivaroxaban 2.5 Mg Tablet) 2.5 mg PO BID [facility] Sodium Bicarbonate (Sodium Bicarbonate 650 Mg Tablet) 650 mg PO TID [facility] Sodium Chloride (0.9 % Sodium Chloride Flush 3 Ml Syringe) 3 ml IVFLUSH QSHIFT [facility] Last Admin: 02/20/25 07:45 Dose: 3 ml Tamsulosin HCl (Tamsulosin Hcl 0.4 Mg Capsule) 0.4 mg PO DAILY [facility] Tiotropium Martinez (Tiotropium Martinez 2.5 Mcg 1 Puff/2.5 Mcg Mist.Inhal) 2 puff INHALE DAILY [facility] Vitamin D (Cholecalciferol (Vitamin D3) 25 Mcg Tablet) 25 mcg PO DAILY [facility] Home Medications ?Medication ?Instructions ?Recorded ?Confirmed ?Last Taken ?Type amlodipine 10 mg tablet 10 mg PO DAILY 12/19/24 02/20/25 02/19/25 09:00 History aspirin 81 mg chewable tablet 1 tab PO DAILY 12/19/24 02/20/25 02/19/25 09:00 History atorvastatin 80 mg tablet 80 mg PO DAILY 12/19/24 02/20/25 02/19/25 09:00 History dapagliflozin propanediol 10 mg 10 mg PO DAILY 12/19/24 02/20/25 02/19/25 09:00 History tablet (Farxiga) finasteride 5 mg tablet 5 mg PO DAILY 12/19/24 02/20/25 02/19/25 09:00 History metoprolol succinate 100 mg 100 mg PO DAILY 12/19/24 02/20/25 02/19/25 09:00 History tablet,extended release 24 hr sodium zirconium cyclosilicate 10 10 g PO DAILY 12/19/24 02/20/25 02/19/25 09:00 History gram oral powder packet (Lokelma) tamsulosin 0.4 mg capsule 0.4 mg PO DAILY 12/19/24 02/20/25 02/19/25 09:00 History umeclidinium 62.5 mcg/actuation 1 inh inhalation DAILY 12/19/24 02/20/25 02/19/25 09:00 History blister powder for inhalation (Incruse Ellipta) hydralazine 25 mg tablet 50 mg PO TID 12/30/24 02/20/25 02/19/25 09:00 History rivaroxaban 2.5 mg tablet (Xarelto) 2.5 mg PO BID 12/30/24 02/20/25 02/19/25 History sodium bicarbonate 650 mg tablet 650 mg PO TID 12/30/24 02/20/25 02/19/25 09:00 History Physical Exam 2 Vital Signs: Vital Signs: Last Vital Signs Temp 97.5 F 02/20/25 10:13 Pulse 85 02/20/25 10:13 Resp 11 L 02/20/25 10:13 BP 143/79 H 02/20/25 10:13 Pulse Ox 99 02/20/25 10:13 O2 Del Method Oxymask 02/20/25 10:13 O2 Flow Rate 4 02/20/25 10:13 Oxygen Flow Rate 2 02/20/25 01:05 BMI result Body Mass Index 24.3 GENERAL APPEARANCE: in no acute distress, pleasant. On supplemental oxygen. NECK: no carotid bruit, ++ jugular venous distention. SKIN: no suspicious lesions, warm and dry. HEART: no murmurs, regular rate and rhythm. LUNGS: Crackles both bases. ABDOMEN: soft, nontender. EXTREMITIES: no edema. Left great toe amputated. No discharge or erythema. PERIPHERAL PULSES: equal. NEUROLOGIC: No gross deficits, AAO X 3 Objective Labs and Meds 02/20/25 06:14 02/20/25 06:14 Lab results: Laboratory Results - last 24 hr 02/20/25 02/20/25 02/20/25 01:36 01:37 01:42 WBC 14.3 H RBC 3.18 L Hgb 9.4 L Hct 28.1 L MCV 88.4 MCH 29.6 MCHC 33.5 RDW 14.1 Plt Count 293 D MPV 9.8 Immature Gran % (Auto) 0.8 H Neut % (Auto) 89.3 H Lymph % (Auto) 3.1 L [place] % (Auto) 6.2 Eos % (Auto) 0.1 Baso % (Auto) 0.5 Lymph # (Auto) 0.4 L [place] # (Auto) 0.9 Eos # (Auto) 0.0 Baso # (Auto) 0.1 Abs Immat Gran (auto) 0.12 H Absolute Neuts (auto) 12.8 H Absolute Nucleated RBC 0.000 Nucleated RBC % (auto) 0.0 Smear Tech's Comments Hold Blue Top SEE NOTE VBG pH 7.49 H VBG pCO2 21 VBG pO2 69 VBG HCO3 16 L VBG O2 Saturation 95.0 VBG Base Excess -5.0 Sodium 138 Potassium 3.8 Chloride 106 Carbon Dioxide 14 L Anion Gap 22 H BUN 65 H Creatinine 7.30 H* Estim Creat Clear Calc 11.0 Estimated GFR 8 POC Glucose Random Glucose 146 H Estimat Average Glucose Hemoglobin A1c % Lactic Acid 1.5 Calcium 8.6 Total Bilirubin 0.3 Direct Bilirubin 0.1 AST 29 ALT < 6 Alkaline Phosphatase 80 B-Natriuretic Peptide 3183 H Total Protein 7.3 Albumin 3.0 L TSH Influenza Type A (PCR) NEGATIVE Influenza Type B (PCR) NEGATIVE RSV RNA Qual (PCR) NEGATIVE SARS-CoV-2 RNA (RT-PCR) NEGATIVE 02/20/25 02/20/25 06:14 07:28 WBC 14.1 H RBC 3.00 L Hgb 8.7 L Hct 27.2 L MCV 90.7 MCH 29.0 MCHC 32.0 RDW 14.1 Plt Count 266 MPV 9.9 Immature Gran % (Auto) 1.4 H Neut % (Auto) 94.6 H Lymph % (Auto) 1.4 L [place] % (Auto) 2.3 Eos % (Auto) 0.0 Baso % (Auto) 0.3 Lymph # (Auto) 0.2 L [place] # (Auto) 0.3 Eos # (Auto) 0.0 Baso # (Auto) 0.0 Abs Immat Gran (auto) 0.19 H Absolute Neuts (auto) 13.3 H Absolute Nucleated RBC 0.000 Nucleated RBC % (auto) 0.0 Smear Tech's Comments VERIFIED Hold Blue Top VBG pH VBG pCO2 VBG pO2 VBG HCO3 VBG O2 Saturation VBG Base Excess Sodium 136 Potassium 3.7 Chloride 108 Carbon Dioxide 16 L Anion Gap 16 BUN 64 H Creatinine 7.21 H* Estim Creat Clear Calc 11.2 Estimated GFR 8 POC Glucose 193 H Random Glucose 230 H Estimat Average Glucose 117 Hemoglobin A1c % 5.7 Lactic Acid Calcium 8.2 L Total Bilirubin Direct Bilirubin AST ALT Alkaline Phosphatase B-Natriuretic Peptide Total Protein Albumin TSH 1.35 Influenza Type A (PCR) Influenza Type B (PCR) RSV RNA Qual (PCR) SARS-CoV-2 RNA (RT-PCR) Imaging Radiologist's impression: Impressions Renal Ultrasound 02/20/25 08:26 IMPRESSION: 1. Mildly complex bilateral renal cysts as described. Follow-up is recommended. 2. Possible small right pleural effusion. This could be confirmed with chest x-ray. Electronically signed by: Philippe Ly MD 02/20/2025 08:58 AM EDT RP Assessment and Plan (1) Acute kidney injury superimposed on CKD: Status: Acute (2) New onset of congestive heart failure: Status: Acute Plan [age] year gentleman presenting with acute renal failure and heart failure. Recently had toe amputation at [facility]. His EKG was read as AFib by the machine but in fact he has sinus tachycardia with premature atrial complexes. I will review the telemetry to see if there is any atrial fibrillation there. He is on rivaroxaban 2.5 mg twice a day likely for peripheral vascular disease. Continue home medications. IV diuretics to see if he is making urine. Nephrology is on board. Echocardiography to assess LV function. We will follow along with you. Thank you for allowing me to participate in the care of your patient. Please feel free to contact me if you have any questions. Procedures Date of Service Date of Service: 02/20/25
[2025-02-20 12:49] LABS: Phosphorus 6.6 mg/dL (2.7-4.5)
--- NOTE | 2025-02-20 14:23 | PHA.MEDREC ---
Pharmacy Consult ? Medication Reconciliation Pharmacy has completed the medication reconciliation. Spoke to patient at bedside to confirm meds. He was unsure and needed prompting. He said he took Xarelto 2.5mg Daily but was filling it BID. Spoke to provider about this dosing.
[2025-02-20 14:38] LABS: Glucose, Whole Blood 306 mg/dL (60-115)
[2025-02-20] MEDS: Sodium Bicarbonate 650 MG TABLET PO ×2 (14:48→21:32)
[2025-02-20] MEDS: hydrALAZINE HCl 50 MG TABLET PO ×2 (14:49→21:32)
[2025-02-20 14:59] LABS: Appearance Urine Clear; Color Urine Yellow; Glucose Urine UA 500 mg/dL (Negative); Leukocyte Esterase Urine Negative (Negative); Nitrite Urine Negative (Negative); Specific Gravity - Urine 1.015 (1.005-1.025); UMIC TRIGGER UA YES; Urine Blood Trace (Negative); Urine Ketones Negative (Negative); Urine Protein >=1000 (4+) mg/dL (Neg-Trace)
[2025-02-20 15:04] LABS: Bacteria Urine None Seen (None Seen); Hyaline Casts Urine 0-2 /LPF (0-2); RBC Urine 0-2 /HPF (0-2); Squamous Epithelial Cell Urine 0-2 /HPF (0-2); WBC Urine 0-5 /HPF (0-5)
--- NOTE | 2025-02-20 16:24 | MHC.CM.PN ---
CM ATTEMPTED TO MEET WITH PT, BEDSIDE IMAGING IN PROGRESS CM TO REVISIT
[2025-02-20 16:53] LABS: Glucose, Whole Blood 267 mg/dL (60-115)
[2025-02-20] MEDS: Furosemide 40 MG/4 ML VIAL IVPUSH (17:06)
[2025-02-20] MEDS: oxyCODONE HCl Immed Release 5 MG TABLET PO ×2 (18:17→22:15)
[2025-02-20 20:29] LABS: Glucose, Whole Blood 194 mg/dL (60-115)
[2025-02-20] MEDS: Apixaban 5 MG TABLET PO (21:32)
[2025-02-21] VITALS (10 sets, daily range): BP systolic 134–168; BP diastolic 60–79; PULSE 68–92; RESP 16–18; TEMP 36.2–36.9; O2SAT 95–98
[2025-02-21] MEDS: Piperacillin Sodium/Tazobactam 2.25 GM in 0.9 % Sodium Chloride 50 ML IV ×2 (00:56→10:16)
[2025-02-21 06:42] LABS: MANUAL DIFF FLAG NO
[2025-02-21 06:52] LABS: Basophils Percent Auto 0.1 % (0-2); Hemoglobin 7.7 g/dl (14.0-18.0); Imm Gran Abs Auto 0.21 X10*3/uL (0.00-0.03); Imm Gran Pct Auto 1.2 % (0.0-0.4); Lymphocytes Absolute Auto 0.7 X10*3/uL (1.2-4.9); Lymphocytes Percent Auto 3.9 % (20-40); Mean Corpuscular HGB Conc 33.5 g/dl (31.0-36.0); Mean Corpuscular Hemoglobin 29.2 pg (27.0-33.0); Mean Corpuscular Volume 87.1 fL (80.0-98.0); Mean Platelet Volume 9.8 fL (9.4-12.4); Monocytes Absolute Auto 0.8 X10*3/uL (0.1-1.2); Monocytes Percent Auto 4.8 % (2-11); Neutrophils Absolute Auto 15.4 x10*3/uL (2.0-8.3); Platelet Count 263 X10*3/uL (160-400); Red Blood Count 2.64 X10*6/uL (4.60-5.80); Red Cell Distribution Width 13.8 % (11.0-16.0); White Blood Count 17.1 X10*3/uL (4.8-10.8)
[2025-02-21 06:58] LABS: Anion Gap 18 (12-20); Blood Urea Nitrogen 82 mg/dL (9-16); Calcium 8.1 mg/dL (8.4-10.2); Carbon Dioxide 17 mmol/L (22-29); Chloride 103 mmol/L (96-108); Creatinine Clr Calc Pharmacy 10.8; Estimated Glomerular Filt Rate 7; Glucose Random 165 mg/dL (60-115); Potassium 4.1 mmol/L (3.3-5.1); Sodium 134 mmol/L (135-145)
[2025-02-21 07:01] LABS: Vancomycin Random 8.4 mcg/mL (15-20)
[2025-02-21 07:18] LABS: Glucose, Whole Blood 149 mg/dL (60-115)
[2025-02-21] MEDS: vancomycin HCL 500 MG in 0.9 % Sodium Chloride 100 ML 110 MG IV (08:22)
[2025-02-21] MEDS: Furosemide 40 MG/4 ML VIAL IVPUSH ×2 (08:22→17:06)
[2025-02-21] MEDS: amLODIPine Besylate 10 MG TABLET PO (08:23)
[2025-02-21] MEDS: Finasteride 5 MG TABLET PO (08:23)
[2025-02-21] MEDS: Aspirin 81 MG TAB.CHEW PO (08:23)
[2025-02-21] MEDS: Tamsulosin HCL 0.4 MG CAPSULE PO (08:23)
[2025-02-21] MEDS: oxyCODONE HCl Immed Release 5 MG TABLET PO ×3 (08:23→21:18)
[2025-02-21] MEDS: Cholecalciferol (Vitamin D3) 25 MCG TABLET PO (08:23)
[2025-02-21] MEDS: Sodium Bicarbonate 650 MG TABLET PO ×3 (08:23→21:17)
[2025-02-21] MEDS: Apixaban 5 MG TABLET PO (08:23)
[2025-02-21] MEDS: Atorvastatin Calcium 80 MG TABLET PO (08:23)
[2025-02-21] MEDS: Metoprolol Succinate ER 100 MG TAB.ER.24H PO (08:23)
[2025-02-21] MEDS: hydrALAZINE HCl 50 MG TABLET PO ×3 (08:23→21:17)
[2025-02-21] MEDS: 0.9 % Sodium Chloride Flush 3 ML SYRINGE IVFLUSH ×2 (08:24→15:36)
--- NOTE | 2025-02-21 08:30 | PM.PNNEP ---
Subjective Subjective Date of Service: 02/21/25 Interval history: 64 y/o male with a medical history of CKD4 from HTN, DMII, vascular disease following for UMAIR on CKD creatinine increased from baseline 2.83 to 7.3 on presentation, creatinine 7.46 today patient receiving 40mg IVP lasix BID, produced 1.5L urine output over last 24 hours UA with large amount of protein, no blood/other cells states his breathing has improved and feels comfortable, he now on nasal cannula (on nonrebreather yesterday) reports his nausea has resolved states he feels good and does not have any new symptoms/concerns Physical Exam Vital Signs: Vital Signs: Last Vital Signs Temp 97.6 F 02/21/25 11:11 Pulse 77 02/21/25 11:26 Resp 16 02/21/25 11:26 BP 155/76 H 02/21/25 11:11 Pulse Ox 98 02/21/25 11:11 O2 Del Method Nasal Cannula 02/21/25 11:11 O2 Flow Rate 1 02/21/25 11:11 Oxygen Flow Rate 2 02/20/25 01:05 BMI result Body Mass Index 24.7 Const: General: no acute distress, alert and awake Neck: Neck: Yes no JVD Resp: Effort & Inspection: normal respiratory effort and able to speak in complete sentences Auscultation: crackles (RLL mild crackles) Cardio: Rate: regular rate Rhythm: regular rhythm Heart sounds: S1 normal heart sound present and S2 normal heart sound present GI: Palpation (GI): Soft to palpation and nontender : General: Yes no CVA tenderness Back/Spine/Pelvis: Back: no CVA tenderness Skin: Rashes: no rashes Extrem: General: No edema Objective Data Labs 02/21/25 06:28 02/21/25 06:28 Labs: Laboratory Results - last 24 hr 02/20/25 02/20/25 02/20/25 12:25 13:55 14:51 WBC RBC Hgb Hct MCV MCH MCHC RDW Plt Count MPV Immature Gran % (Auto) Neut % (Auto) Lymph % (Auto) [place] % (Auto) Eos % (Auto) Baso % (Auto) Lymph # (Auto) [place] # (Auto) Eos # (Auto) Baso # (Auto) Abs Immat Gran (auto) Absolute Neuts (auto) Absolute Nucleated RBC Nucleated RBC % (auto) Sodium Potassium Chloride Carbon Dioxide Anion Gap BUN Creatinine Estim Creat Clear Calc Estimated GFR POC Glucose 306 H Random Glucose Calcium Phosphorus 6.6 H Urine Color Yellow Urine Appearance Clear Urine pH 6.0 Ur Specific [place] 1.015 Urine Protein >=1000 (4+) H Urine Glucose (UA) 500 H Urine Ketones Negative Urine Blood Trace H Urine Nitrite Negative Ur Leukocyte Esterase Negative Urine RBC 0-2 Urine WBC 0-5 Ur Squamous Epith Cells 0-2 Urine Bacteria None Seen Hyaline Casts 0-2 Random Vancomycin 02/20/25 02/20/25 02/21/25 16:48 20:22 06:28 WBC 17.1 H RBC 2.64 L Hgb 7.7 L Hct 23.0 L MCV 87.1 MCH 29.2 MCHC 33.5 RDW 13.8 Plt Count 263 MPV 9.8 Immature Gran % (Auto) 1.2 H Neut % (Auto) 90.0 H Lymph % (Auto) 3.9 L [place] % (Auto) 4.8 Eos % (Auto) 0.0 Baso % (Auto) 0.1 Lymph # (Auto) 0.7 L [place] # (Auto) 0.8 Eos # (Auto) 0.0 Baso # (Auto) 0.0 Abs Immat Gran (auto) 0.21 H Absolute Neuts (auto) 15.4 H Absolute Nucleated RBC 0.000 Nucleated RBC % (auto) 0.0 Sodium 134 L Potassium 4.1 Chloride 103 Carbon Dioxide 17 L Anion Gap 18 BUN 82 H Creatinine 7.46 H* Estim Creat Clear Calc 10.8 Estimated GFR 7 POC Glucose 267 H 194 H Random Glucose 165 H Calcium 8.1 L Phosphorus Urine Color Urine Appearance Urine pH Ur Specific [place] Urine Protein Urine Glucose (UA) Urine Ketones Urine Blood Urine Nitrite Ur Leukocyte Esterase Urine RBC Urine WBC Ur Squamous Epith Cells Urine Bacteria Hyaline Casts Random Vancomycin 8.4 L 02/21/25 02/21/25 07:13 11:12 WBC RBC Hgb Hct MCV MCH MCHC RDW Plt Count MPV Immature Gran % (Auto) Neut % (Auto) Lymph % (Auto) [place] % (Auto) Eos % (Auto) Baso % (Auto) Lymph # (Auto) [place] # (Auto) Eos # (Auto) Baso # (Auto) Abs Immat Gran (auto) Absolute Neuts (auto) Absolute Nucleated RBC Nucleated RBC % (auto) Sodium Potassium Chloride Carbon Dioxide Anion Gap BUN Creatinine Estim Creat Clear Calc Estimated GFR POC Glucose 149 H 199 H Random Glucose Calcium Phosphorus Urine Color Urine Appearance Urine pH Ur Specific [place] Urine Protein Urine Glucose (UA) Urine Ketones Urine Blood Urine Nitrite Ur Leukocyte Esterase Urine RBC Urine WBC Ur Squamous Epith Cells Urine Bacteria Hyaline Casts Random Vancomycin Microbiology Microbiology Results: Microbiology 02/20/25 01:41 Blood - Venous Blood Culture - Preliminary Staphylococcus aureus 02/20/25 01:36 Blood - Venous Blood Culture - Preliminary Staphylococcus aureus Procedures Date of Service Date of Service: 02/21/25 Assessment & Plan Assessment and plan (1) Acute kidney injury superimposed on CKD: Status: Acute (2) Fluid overload: Status: Acute (3) Hypertension: Status: Acute Plan UMAIR on CKD, osteomyelitis likely contributory; fluid overload may also be contributing pulmonary edema likely from kidney disease, though recommend echocardiogram for further evaluation patient remains clinically fluid overloaded, recommend continuing lasix 40mg IVP BID, will add 5mg PO BID metolazone to aid in blood pressure control *needs outpatient follow up for complex renal cysts on renal US. Avoid nephrotoxins, including NSAIDs regular blood pressure and I&O monitoring recommend daily electrolyte and renal function studies Continue supportive care, will continue to follow Discussed with Dr Kuhn. Time Spent With Patient Time: Total time managing care of this patient today ____ minutes. Progress Note: Quality Stroke Does the patient have a stroke diagnosis?: No
--- NOTE | 2025-02-21 10:32 | MHC.CM.PN ---
IMM 02/21/25, Pt lives with his , she is his RIVETER. PCP confirmed: Michelle Long. HCP discussed, pt. said it is his , he wants her to fill out the form, CM will check back when is here to discuss. Pt. has home O2, a nurse from [facility] visits periodically. transport home at [place] will be via his . DCP: home with services, CM to follow for DC needs.
[2025-02-21] MEDS: Tiotropium Bromide 2.5 mcg 1 PUFF/2.5 MCG MIST.INHAL 2 PUFF INHALE (11:25)
[2025-02-21 11:36] LABS: Glucose, Whole Blood 199 mg/dL (60-115)
[2025-02-21] MEDS: Insulin Lispro 100 UNIT/ML 3 ML VIAL SUBCUT ×2 (12:23→17:06)
--- NOTE | 2025-02-21 12:36 | HO.PM.IMPN ---
Subjective Subjective Date of Service: 02/21/25 Interval History: blood cultures positive for staph aur, probably MRS WBC still high, no confusion today Physical Exam Vital Signs: Vital Signs: Last Vital Signs Temp 97.6 F 02/21/25 11:11 Pulse 77 02/21/25 11:26 Resp 16 02/21/25 11:26 BP 155/76 H 02/21/25 11:11 Pulse Ox 98 02/21/25 11:11 O2 Del Method Nasal Cannula 02/21/25 11:11 O2 Flow Rate 1 02/21/25 11:11 Oxygen Flow Rate 2 02/20/25 01:05 BMI result Body Mass Index 24.7 Const: Other: General: AO X 3, no acute distress Resp: CTA bilateral CVS: S1,S2,RRR GI: +BS, NT, no distention Skin: Neuro: motor grossly intact Psych: appropriate affect Objective Data Active Medications Acetaminophen (Acetaminophen 325 Mg Tablet) 975 mg PO Q6H PRN PRN Reason: Pain, Mild 1-3,fever,headache Albuterol/Ipratropium (Albuterol/Iprat 2.5/0.5mg 3 Ml Ampul.Neb) 3 ml INHALE Q4H PRN PRN Reason: Shortness of Breath/Wheezing Amlodipine Besylate (Amlodipine Besylate 10 Mg Tablet) 10 mg PO DAILY [facility]; Protocol Last Admin: 02/21/25 08:23 Dose: 10 mg Documented By: ALIDA Apixaban (Apixaban 5 Mg Tablet) 5 mg PO BID [facility] Last Admin: 02/21/25 08:23 Dose: 5 mg Documented By: ALIDA Aspirin (Aspirin 81 Mg Tab.Chew) 81 mg PO DAILY [facility] Last Admin: 02/21/25 08:23 Dose: 81 mg Documented By: ALIDA Atorvastatin Calcium (Atorvastatin Calcium 80 Mg Tablet) 80 mg PO DAILY [facility] Last Admin: 02/21/25 08:23 Dose: 80 mg Documented By: ALIDA Calcium Carbonate (Calcium Carbonate 750 Mg Tab.Chew) 750 mg PO Q4H PRN PRN Reason: Heartburn Dextrose (Dextrose 50 % 25 Gm/50 Ml Syringe) 25 gm IVPUSH Q15M PRN; Protocol PRN Reason: per Hypoglycemia Standing Ord. Finasteride (Finasteride 5 Mg Tablet) 5 mg PO DAILY [facility] Last Admin: 02/21/25 08:23 Dose: 5 mg Documented By: ALIDA Furosemide (Furosemide 40 Mg/4 Ml Vial) 40 mg IVPUSH BID@0900,1800 [facility]; Protocol Last Admin: 02/21/25 08:22 Dose: 40 mg Documented By: ALIDA Glucose (Glucose Gel 15 Gm Gel..Gram.) 15 gm PO Q15M PRN; Protocol PRN Reason: per Hypoglycemia Standing Ord. Hydralazine HCl (Hydralazine Hcl 50 Mg Tablet) 50 mg PO TID [facility]; Protocol Last Admin: 02/21/25 08:23 Dose: 50 mg Documented By: ALIDA Piperacillin Sod/Tazobactam (Sod 2.25 gm/ Sodium Chloride) 50 mls @ 100 mls/hr IV Q8H [facility] Last Infusion: 02/21/25 10:59 Dose: Infused Documented By: ALIDA Vancomycin HCl 500 mg/ Sodium (Chloride) 110 mls @ 110 mls/hr IV ONCE ONE Stop: 02/21/25 08:59 Insulin Human Lispro (Insulin Lispro 100 Unit/Ml 3 Ml Vial) 0 unit SUBCUT QIDACHS [facility]; Protocol Last Admin: 02/21/25 12:23 Dose: 2 unit Documented By: ALIDA Magnesium Hydroxide (Milk Of Magnesia 30 Ml Oral.Susp) 30 ml PO DAILY PRN PRN Reason: Constipation Melatonin (Melatonin 3 Mg Tablet) 6 mg PO BEDTIME PRN PRN Reason: Insomnia Metolazone (Metolazone 5 Mg Tablet) 5 mg PO BID [facility] Metoprolol Succinate (Metoprolol Succinate Er 100 Mg Tab.Er.24h) 100 mg PO DAILY [facility]; Protocol Last Admin: 02/21/25 08:23 Dose: 100 mg Documented By: ALIDA Ondansetron HCl (Ondansetron Hcl 4 Mg/2 Ml Vial) 4 mg IVPUSH Q8H PRN PRN Reason: Nausea and Vomiting Oxycodone HCl (Oxycodone Hcl Immed Release 5 Mg Tablet) 5 mg PO Q4H PRN PRN Reason: Pain, Severe (Pain Scale 7-10) Last Admin: 02/21/25 08:23 Dose: 5 mg Documented By: ALIDA Pharmacy Consult (Consult Rx Vancomycin Dosing) 1 each MISCELLANE DAILY PRN PRN Reason: Consult order Sodium Bicarbonate (Sodium Bicarbonate 650 Mg Tablet) 650 mg PO TID [facility] Last Admin: 02/21/25 08:23 Dose: 650 mg Documented By: ALIDA Sodium Chloride (0.9 % Sodium Chloride Flush 3 Ml Syringe) 3 ml IVFLUSH QSHIFT [facility] Last Admin: 02/21/25 08:24 Dose: 3 ml Documented By: ALIDA Tamsulosin HCl (Tamsulosin Hcl 0.4 Mg Capsule) 0.4 mg PO DAILY [facility] Last Admin: 02/21/25 08:23 Dose: 0.4 mg Documented By: ALIDA Tiotropium [place] (Tiotropium [place] 2.5 Mcg 1 Puff/2.5 Mcg Mist.Inhal) 2 puff INHALE RDAILY [facility] Last Admin: 02/21/25 11:25 Dose: 2 puff Documented By: ALETA Vitamin D (Cholecalciferol (Vitamin D3) 25 Mcg Tablet) 25 mcg PO DAILY [facility] Last Admin: 02/21/25 08:23 Dose: 25 mcg Documented By: ALIDA Labs 02/21/25 06:28 02/21/25 06:28 Labs: Laboratory Results - last 24 hr 02/20/25 02/20/25 02/20/25 12:25 13:55 14:51 MCV MCH MCHC RDW Plt Count MPV Immature Gran % (Auto) Neut % (Auto) Lymph % (Auto) [place] % (Auto) Eos % (Auto) Baso % (Auto) Lymph # (Auto) [place] # (Auto) Eos # (Auto) Baso # (Auto) Abs Immat Gran (auto) Absolute Neuts (auto) Absolute Nucleated RBC Nucleated RBC % (auto) Anion Gap Estim Creat Clear Calc Estimated GFR POC Glucose 306 H Random Glucose Calcium Phosphorus 6.6 H Urine Color Yellow Urine Appearance Clear Urine pH 6.0 Ur Specific [place] 1.015 Urine Protein >=1000 (4+) H Urine Glucose (UA) 500 H Urine Ketones Negative Urine Blood Trace H Urine Nitrite Negative Ur Leukocyte Esterase Negative Urine RBC 0-2 Urine WBC 0-5 Ur Squamous Epith Cells 0-2 Urine Bacteria None Seen Hyaline Casts 0-2 Random Vancomycin 02/20/25 02/20/2502/21/25 16:48 20:22 06:28 MCV 87.1 MCH 29.2 MCHC 33.5 RDW 13.8 Plt Count 263 MPV 9.8 Immature Gran % (Auto) 1.2 H Neut % (Auto) 90.0 H Lymph % (Auto) 3.9 L [place] % (Auto) 4.8 Eos % (Auto) 0.0 Baso % (Auto) 0.1 Lymph # (Auto) 0.7 L [place] # (Auto) 0.8 Eos # (Auto) 0.0 Baso # (Auto) 0.0 Abs Immat Gran (auto) 0.21 H Absolute Neuts (auto) 15.4 H Absolute Nucleated RBC 0.000 Nucleated RBC % (auto) 0.0 Anion Gap 18 Estim Creat Clear Calc 10.8 Estimated GFR 7 POC Glucose 267 H 194 H Random Glucose 165 H Calcium 8.1 L Phosphorus Urine Color Urine Appearance Urine pH Ur Specific [place] Urine Protein Urine Glucose (UA) Urine Ketones Urine Blood Urine Nitrite Ur Leukocyte Esterase Urine RBC Urine WBC Ur Squamous Epith Cells Urine Bacteria Hyaline Casts Random Vancomycin 8.4 L 02/21/25 02/21/25 07:13 11:12 MCV MCH MCHC RDW Plt Count MPV Immature Gran % (Auto) Neut % (Auto) Lymph % (Auto) [place] % (Auto) Eos % (Auto) Baso % (Auto) Lymph # (Auto) [place] # (Auto) Eos # (Auto) Baso # (Auto) Abs Immat Gran (auto) Absolute Neuts (auto) Absolute Nucleated RBC Nucleated RBC % (auto) Anion Gap Estim Creat Clear Calc Estimated GFR POC Glucose 149 H 199 H Random Glucose Calcium Phosphorus Urine Color Urine Appearance Urine pH Ur Specific [place] Urine Protein Urine Glucose (UA) Urine Ketones Urine Blood Urine Nitrite Ur Leukocyte Esterase Urine RBC Urine WBC Ur Squamous Epith Cells Urine Bacteria Hyaline Casts Random Vancomycin Microbiology Microbiology Results: Microbiology 02/20/25 01:41 Blood Culture - Preliminary Blood - Venous Staphylococcus aureus 02/20/25 01:36 Blood Culture - Preliminary Blood - Venous Staphylococcus aureus Assessment and Plan (1) Staphylococcus aureus bacteremia: Status: Acute (2) CKD (chronic kidney disease) stage 4, GFR 15-29 ml/min: Status: Acute (3) Acute kidney injury superimposed on CKD: Status: Acute (4) Sepsis: Status: Acute Plan 64 year male with a past medical history significant for stage I COPD, chronic respiratory failure on O2, WENDY, s/p right BKA, HTN, a AFib on Xarelto, type 2 diabetes, just recently s/p left great toe amputation 3 weeks ago on February 03 at [facility] by Dr. Gomez, here with infection at amputation site and found to have new AFIB with RVR, Heart failure Sepsis secondary to acute osteomyelitis/septic arthritis L foot, lytic changes at the area suggestive of OM, temp of 101, and wbc 14 continue iv vanco, zosyn started 02/20..Stop Zosyn, add kefzol for synerg cultures positive for S. Aureus ID consult following echo result pending repeat blood culture Acute on chronic hypoxic respiratory failure [place] to new onset CHF, cardiorenal syndorome IV Lasix and monitor echo cardiology consultation. New onset AFib with RVR, now rate controlled continue home metoprolol hold anticoagulation d/t anemia Metabolic acidosis d/t renal failure, better bicab replacement UMAIR on CKD creatinine 7.3 from 2.83 2 months ago, but 5.3 on february 03 at [facility] [place] Nephrology following, further testing in progress Stage I COPD, no acute exacerbation, no acute exacerbatiobn, given steroid in ED, no indication for further steroid bronchodilators PRN Anemia secondary to CKD, Hgb 9, stable dropped todaym, monitor, stop eliquis HTN,continue norvasc, hydralzine, metoprolo Type 2 diabetes, A1C 6.6 sliding scale insulin diabetic diet Presumed full code,full code VTE prophylaxis: Heparin, switched from Xarelto due to creatinine clearance Quality Stroke Does the patient have a stroke diagnosis?: No VTE Prior VTE?: No VTE Risk Level:: Medical - moderate - high VTE Device Contraindication: Treatment Not Indicated VTE Drug Contraindication: N/A - Med Ordered
--- NOTE | 2025-02-21 12:57 | PM.PNCARD ---
Subjective Subjective Date of Service: 02/21/25 Interval history: Seen examined at bedside. He is growing MRSA in his blood. Anemic with hemoglobin 7.7. Creatinine is 7.46 BUN of 82. Physical Exam Vital Signs: Last Vital Signs Temp 97.6 F 02/21/25 11:11 Pulse 77 02/21/25 11:26 Resp 16 02/21/25 11:26 BP 155/76 H 02/21/25 11:11 Pulse Ox 98 02/21/25 11:11 O2 Del Method Nasal Cannula 02/21/25 11:11 O2 Flow Rate 1 02/21/25 11:11 Oxygen Flow Rate 2 02/20/25 01:05 BMI result Body Mass Index 24.7 GENERAL APPEARANCE: in no acute distress, pleasant. On supplemental oxygen. NECK: no carotid bruit, mild jugular venous distention. SKIN: no suspicious lesions, warm and dry. HEART: no murmurs, regular rate and rhythm. LUNGS: Clear to auscultation. ABDOMEN: soft, nontender. PERIPHERAL PULSES: equal. NEUROLOGIC: No gross deficits, AAO X 3 Objective Labs and Meds 02/21/25 06:28 02/21/25 06:28 Lab results: Laboratory Results - last 24 hr 02/20/25 02/20/25 02/20/25 13:55 14:51 16:48 WBC RBC Hgb Hct MCV MCH MCHC RDW Plt Count MPV Immature Gran % (Auto) Neut % (Auto) Lymph % (Auto) [place] % (Auto) Eos % (Auto) Baso % (Auto) Lymph # (Auto) [place] # (Auto) Eos # (Auto) Baso # (Auto) Abs Immat Gran (auto) Absolute Neuts (auto) Absolute Nucleated RBC Nucleated RBC % (auto) Sodium Potassium Chloride Carbon Dioxide Anion Gap BUN Creatinine Estim Creat Clear Calc Estimated GFR POC Glucose 306 H 267 H Random Glucose Calcium Urine Color Yellow Urine Appearance Clear Urine pH 6.0 Ur Specific [place] 1.015 Urine Protein >=1000 (4+) H Urine Glucose (UA) 500 H Urine Ketones Negative Urine Blood Trace H Urine Nitrite Negative Ur Leukocyte Esterase Negative Urine RBC 0-2 Urine WBC 0-5 Ur Squamous Epith Cells 0-2 Urine Bacteria None Seen Hyaline Casts 0-2 Random Vancomycin 02/20/25 02/21/25 02/21/25 20:22 06:28 07:13 WBC 17.1 H RBC 2.64 L Hgb 7.7 L Hct 23.0 L MCV 87.1 MCH 29.2 MCHC 33.5 RDW 13.8 Plt Count 263 MPV 9.8 Immature Gran % (Auto) 1.2 H Neut % (Auto) 90.0 H Lymph % (Auto) 3.9 L [place] % (Auto) 4.8 Eos % (Auto) 0.0 Baso % (Auto) 0.1 Lymph # (Auto) 0.7 L [place] # (Auto) 0.8 Eos # (Auto) 0.0 Baso # (Auto) 0.0 Abs Immat Gran (auto) 0.21 H Absolute Neuts (auto) 15.4 H Absolute Nucleated RBC 0.000 Nucleated RBC % (auto) 0.0 Sodium 134 L Potassium 4.1 Chloride 103 Carbon Dioxide 17 L Anion Gap 18 BUN 82 H Creatinine 7.46 H* Estim Creat Clear Calc 10.8 Estimated GFR 7 POC Glucose 194 H 149 H Random Glucose 165 H Calcium 8.1 L Urine Color Urine Appearance Urine pH Ur Specific [place] Urine Protein Urine Glucose (UA) Urine Ketones Urine Blood Urine Nitrite Ur Leukocyte Esterase Urine RBC Urine WBC Ur Squamous Epith Cells Urine Bacteria Hyaline Casts Random Vancomycin 8.4 L 02/21/25 11:12 WBC RBC Hgb Hct MCV MCH MCHC RDW Plt Count MPV Immature Gran % (Auto) Neut % (Auto) Lymph % (Auto) [place] % (Auto) Eos % (Auto) Baso % (Auto) Lymph # (Auto) [place] # (Auto) Eos # (Auto) Baso # (Auto) Abs Immat Gran (auto) Absolute Neuts (auto) Absolute Nucleated RBC Nucleated RBC % (auto) Sodium Potassium Chloride Carbon Dioxide Anion Gap BUN Creatinine Estim Creat Clear Calc Estimated GFR POC Glucose 199 H Random Glucose Calcium Urine Color Urine Appearance Urine pH Ur Specific [place] Urine Protein Urine Glucose (UA) Urine Ketones Urine Blood Urine Nitrite Ur Leukocyte Esterase Urine RBC Urine WBC Ur Squamous Epith Cells Urine Bacteria Hyaline Casts Random Vancomycin Progress Note: A&P Assessment and plan (1) Staphylococcus aureus bacteremia: Status: Acute (2) New onset of congestive heart failure: Status: Acute Plan Pleasant 64 year gentleman who underwent amputation of great toe early February at [facility] now presenting with shortness of breath and concern for wound infection. He is noted to have significant kidney injury with creatinine of 7.46 and BUN of 82. Preop his creatinine was 5 and in November his creatinine was 2. He was noted to be in congestive heart failure on admission and was diuresed. Overall he has done well with diuresis and clinically he has improved. Continues to have significant kidney injury and dysfunction at this point. He is not encephalopathy and does not have asterixis on examination. Nephrology is following him closely. He has MRSA bacteremia currently. We will review the echocardiogram for any vegetation. Thank you for allowing me to participate in the care of your patient. Please feel free to contact me if you have any questions. Time Spent With Patient Time: Total time managing care of this patient today ____ minutes. Progress Note: Quality Stroke Does the patient have a stroke diagnosis?: No Procedures Date of Service Date of Service: 02/21/25
[2025-02-21] MEDS: ceFAZolin Sodium/Dextrose,Iso 2 GM/50 ML PIGGYBACK IV ×2 (13:07→21:17)
[2025-02-21 16:47] LABS: Glucose, Whole Blood 159 mg/dL (60-115)
[2025-02-21 21:09] LABS: Glucose, Whole Blood 132 mg/dL (60-115)
[2025-02-21] MEDS: metOLazone 5 MG TABLET PO (21:17)
[2025-02-22] VITALS (8 sets, daily range): BP systolic 116–169; BP diastolic 59–82; PULSE 65–94; RESP 14–20; TEMP 36.2–36.9; O2SAT 94–98
[2025-02-22] MEDS: oxyCODONE HCl Immed Release 5 MG TABLET PO ×4 (05:52→20:33)
[2025-02-22] MEDS: ceFAZolin Sodium/Dextrose,Iso 2 GM/50 ML PIGGYBACK IV ×3 (05:52→20:35)
[2025-02-22 07:26] LABS: Glucose, Whole Blood 127 mg/dL (60-115)
[2025-02-22] MEDS: Tiotropium Bromide 2.5 mcg 1 PUFF/2.5 MCG MIST.INHAL 2 PUFF INHALE (07:43)
[2025-02-22] MEDS: Atorvastatin Calcium 80 MG TABLET PO (08:08)
[2025-02-22] MEDS: amLODIPine Besylate 10 MG TABLET PO (08:08)
[2025-02-22] MEDS: Finasteride 5 MG TABLET PO (08:08)
[2025-02-22] MEDS: Furosemide 40 MG/4 ML VIAL IVPUSH (08:08)
[2025-02-22] MEDS: Cholecalciferol (Vitamin D3) 25 MCG TABLET PO (08:08)
[2025-02-22] MEDS: Aspirin 81 MG TAB.CHEW PO (08:08)
[2025-02-22] MEDS: Tamsulosin HCL 0.4 MG CAPSULE PO (08:09)
[2025-02-22] MEDS: 0.9 % Sodium Chloride Flush 3 ML SYRINGE IVFLUSH ×3 (08:09→20:35)
[2025-02-22] MEDS: hydrALAZINE HCl 50 MG TABLET PO ×2 (08:09→16:48)
[2025-02-22] MEDS: Metoprolol Succinate ER 100 MG TAB.ER.24H PO (08:09)
[2025-02-22] MEDS: Sodium Bicarbonate 650 MG TABLET PO ×3 (08:09→20:33)
[2025-02-22] MEDS: metOLazone 5 MG TABLET PO (08:09)
[2025-02-22 08:33] LABS: MANUAL DIFF FLAG NO
--- NOTE | 2025-02-22 08:45 | PM.PNNEP ---
Subjective Subjective Date of Service: 02/22/25 Interval history: 64 y/o male with a medical history of CKD4 from HTN, DMII, vascular disease following for UMAIR on CKD creatinine increased from baseline 2.83 to 7.3 on presentation, creatinine 7.57 today patient receiving 40mg IVP lasix BID, produced 1.8L urine output over last 24 hours UA with large amount of protein, no blood/other cells states his breathing has improved and feels comfortable on room air denies nausea, vomiting, chest pain, abdominal pain, shortness of breath states he feels good and does not have any new symptoms/concerns Physical Exam Vital Signs: Vital Signs: Last Vital Signs Temp 98.4 F 02/22/25 07:52 Pulse 82 02/22/25 07:52 Resp 20 02/22/25 07:52 BP 162/82 H 02/22/25 07:52 Pulse Ox 97 02/22/25 07:52 O2 Del Method Room Air 02/22/25 07:52 O2 Flow Rate 1 02/21/25 11:11 Oxygen Flow Rate 2 02/20/25 01:05 BMI result Body Mass Index 24.7 Const: General: no acute distress, alert and awake Neck: Neck: Yes no JVD Resp: Effort & Inspection: normal respiratory effort and able to speak in complete sentences Auscultation: clear to auscultation bilaterally Cardio: Rate: regular rate Rhythm: regular rhythm Heart sounds: S1 normal heart sound present and S2 normal heart sound present GI: Palpation (GI): Soft to palpation and nontender : General: Yes no CVA tenderness Back/Spine/Pelvis: Back: no CVA tenderness Skin: Rashes: no rashes Extrem: General: No edema Objective Data Labs 02/22/25 08:27 02/22/25 08:24 Labs: Laboratory Results - last 24 hr 02/21/25 02/21/25 02/21/25 11:12 16:22 21:05 WBC RBC Hgb Hct MCV MCH MCHC RDW Plt Count MPV Immature Gran % (Auto) Neut % (Auto) Lymph % (Auto) [place] % (Auto) Eos % (Auto) Baso % (Auto) Lymph # (Auto) [place] # (Auto) Eos # (Auto) Baso # (Auto) Abs Immat Gran (auto) Absolute Neuts (auto) Absolute Nucleated RBC Nucleated RBC % (auto) Sodium Potassium Chloride Carbon Dioxide Anion Gap BUN Creatinine Estim Creat Clear Calc Estimated GFR POC Glucose 199 H 159 H 132 H Random Glucose Calcium Iron TIBC % Saturation Unsat Iron Binding Random Vancomycin 02/22/25 02/22/25 02/22/25 07:22 08:24 08:24 WBC RBC Hgb Hct MCV MCH MCHC RDW Plt Count MPV Immature Gran % (Auto) Neut % (Auto) Lymph % (Auto) [place] % (Auto) Eos % (Auto) Baso % (Auto) Lymph # (Auto) [place] # (Auto) Eos # (Auto) Baso # (Auto) Abs Immat Gran (auto) Absolute Neuts (auto) Absolute Nucleated RBC Nucleated RBC % (auto) Sodium 134 L 134 L Potassium 3.6 Chloride Carbon Dioxide Anion Gap BUN Creatinine Estim Creat Clear Calc Estimated GFR POC Glucose 127 H Random Glucose Calcium Iron TIBC % Saturation Unsat Iron Binding Random Vancomycin 02/22/25 02/22/25 02/22/25 08:24 08:24 08:24 WBC RBC Hgb Hct MCV MCH MCHC RDW Plt Count MPV Immature Gran % (Auto) Neut % (Auto) Lymph % (Auto) [place] % (Auto) Eos % (Auto) Baso % (Auto) Lymph # (Auto) [place] # (Auto) Eos # (Auto) Baso # (Auto) Abs Immat Gran (auto) Absolute Neuts (auto) Absolute Nucleated RBC Nucleated RBC % (auto) Sodium Potassium 3.7 Chloride 102 102 Carbon Dioxide 18 L 17 L Anion Gap 18 BUN Creatinine Estim Creat Clear Calc Estimated GFR POC Glucose Random Glucose Calcium Iron TIBC % Saturation Unsat Iron Binding Random Vancomycin 02/22/25 02/22/25 02/22/25 08:24 08:24 08:24 WBC RBC Hgb Hct MCV MCH MCHC RDW Plt Count MPV Immature Gran % (Auto) Neut % (Auto) Lymph % (Auto) [place] % (Auto) Eos % (Auto) Baso % (Auto) Lymph # (Auto) [place] # (Auto) Eos # (Auto) Baso # (Auto) Abs Immat Gran (auto) Absolute Neuts (auto) Absolute Nucleated RBC Nucleated RBC % (auto) Sodium Potassium Chloride Carbon Dioxide Anion Gap 19 BUN 92 H 91 H Creatinine 7.52 H* 7.57 H* Estim Creat Clear Calc 10.7 Estimated GFR POC Glucose Random Glucose Calcium Iron TIBC % Saturation Unsat Iron Binding Random Vancomycin 02/22/25 02/22/25 02/22/25 08:24 08:24 08:24 WBC RBC Hgb Hct MCV MCH MCHC RDW Plt Count MPV Immature Gran % (Auto) Neut % (Auto) Lymph % (Auto) [place] % (Auto) Eos % (Auto) Baso % (Auto) Lymph # (Auto) [place] # (Auto) Eos # (Auto) Baso # (Auto) Abs Immat Gran (auto) Absolute Neuts (auto) Absolute Nucleated RBC Nucleated RBC % (auto) Sodium Potassium Chloride Carbon Dioxide Anion Gap BUN Creatinine Estim Creat Clear Calc 10.6 Estimated GFR 7 7 POC Glucose Random Glucose 127 H 127 H Calcium 7.9 L Iron TIBC % Saturation Unsat Iron Binding Random Vancomycin 02/22/25 02/22/25 08:24 08:27 WBC 12.5 H RBC 2.88 L Hgb 8.6 L Hct 25.4 L MCV 88.2 MCH 29.9 MCHC 33.9 RDW 13.9 Plt Count 315 MPV 10.1 Immature Gran % (Auto) 1.4 H Neut % (Auto) 77.4 H Lymph % (Auto) 10.9 L [place] % (Auto) 8.0 Eos % (Auto) 1.9 Baso % (Auto) 0.4 Lymph # (Auto) 1.4 [place] # (Auto) 1.0 Eos # (Auto) 0.2 Baso # (Auto) 0.1 Abs Immat Gran (auto) 0.17 H Absolute Neuts (auto) 9.6 H Absolute Nucleated RBC 0.000 Nucleated RBC % (auto) 0.0 Sodium Potassium Chloride Carbon Dioxide Anion Gap BUN Creatinine Estim Creat Clear Calc Estimated GFR POC Glucose Random Glucose Calcium 7.8 L Iron 43 L TIBC 133 L % Saturation 32 Unsat Iron Binding 90 Random Vancomycin 11.5 L Microbiology Microbiology Results: Microbiology 02/20/25 01:36 Blood - Venous Blood Culture - Final Methicillin Res Staph Aureus 02/20/25 01:41 Blood - Venous Blood Culture - Final Methicillin Res Staph Aureus Procedures Date of Service Date of Service: 02/22/25 Assessment & Plan Assessment and plan (1) Acute kidney injury superimposed on CKD: Status: Acute (2) Fluid overload: Status: Acute (3) Hypertension: Status: Acute Plan UMAIR on CKD, osteomyelitis likely contributory; fluid overload may also be contributing renal function has remained stable, patient continues to make urine pulmonary edema likely from kidney disease, echo shows EF of 40-45%, which may also be contributing patient appears euvolemic, will discontinue IV lasix and start 40mg lasix PO BID blood pressures subotpimal, will add imdur 30mg PO daily for additional blood pressure control *needs outpatient follow up for complex renal cysts on renal US. ok to discharge home from renal standpoint with plan for close follow up in the office Discussed with Dr Ruiz. Time Spent With Patient Time: Total time managing care of this patient today ____ minutes. Progress Note: Quality Stroke Does the patient have a stroke diagnosis?: No
[2025-02-22 08:49] LABS: Basophils Absolute Auto 0.1 X10*3/uL (0.0-0.2); Basophils Percent Auto 0.4 % (0-2); Eosinophils Absolute Auto 0.2 X10*3/uL (0.0-0.4); Eosinophils Percent Auto 1.9 % (0-4); Hematocrit 25.4 % (42.0-52.0); Hemoglobin 8.6 g/dl (14.0-18.0); Imm Gran Abs Auto 0.17 X10*3/uL (0.00-0.03); Imm Gran Pct Auto 1.4 % (0.0-0.4); Lymphocytes Absolute Auto 1.4 X10*3/uL (1.2-4.9); Lymphocytes Percent Auto 10.9 % (20-40); Mean Corpuscular HGB Conc 33.9 g/dl (31.0-36.0); Mean Corpuscular Hemoglobin 29.9 pg (27.0-33.0); Mean Corpuscular Volume 88.2 fL (80.0-98.0); Mean Platelet Volume 10.1 fL (9.4-12.4); Neutrophils Absolute Auto 9.6 x10*3/uL (2.0-8.3); Neutrophils Percent Auto 77.4 % (45-73); Platelet Count 315 X10*3/uL (160-400); Red Blood Count 2.88 X10*6/uL (4.60-5.80); Red Cell Distribution Width 13.9 % (11.0-16.0); White Blood Count 12.5 X10*3/uL (4.8-10.8)
[2025-02-22 09:01] LABS: Vancomycin Random 11.5 mcg/mL (15-20)
[2025-02-22 09:18] LABS: Creatinine Clr Calc Pharmacy 10.7; Estimated Glomerular Filt Rate 7
[2025-02-22 09:20] LABS: Anion Gap 19 (12-20); Blood Urea Nitrogen 91 mg/dL (9-16); Calcium 7.8 mg/dL (8.4-10.2); Carbon Dioxide 17 mmol/L (22-29); Chloride 102 mmol/L (96-108); Creatinine Clr Calc Pharmacy 10.6; Estimated Glomerular Filt Rate 7; Glucose Random 127 mg/dL (60-115); Potassium 3.7 mmol/L (3.3-5.1); Sodium 134 mmol/L (135-145)
[2025-02-22 09:22] LABS: Anion Gap 18 (12-20); Blood Urea Nitrogen 92 mg/dL (9-16); Calcium 7.9 mg/dL (8.4-10.2); Carbon Dioxide 18 mmol/L (22-29); Chloride 102 mmol/L (96-108); Glucose Random 127 mg/dL (60-115); Iron 43 mcg/dL (45-160); Percent Iron Saturation 32 % (15-50); Potassium 3.6 mmol/L (3.3-5.1); Sodium 134 mmol/L (135-145); Total Iron Binding Capacity 133 mcg/dL (228-428); Unsaturated Iron Binding 90 ug/dL
--- NOTE | 2025-02-22 09:34 | HE.PHANOTE ---
RE: VANCO DOSING Trough came back as 11.5 mg/L and renal function is still declining. One time order of 500 mg was put in for today 02/22 @1000. Next trough was put in for 02/23/25@0800.
--- NOTE | 2025-02-22 09:47 | HO.PM.IMPN ---
Subjective Subjective Date of Service: 02/22/25 Interval History: blood cultures positive for staph aur, probably MRS WBC down, no confusion Physical Exam Vital Signs: Vital Signs: Last Vital Signs Temp 98.4 F 02/22/25 07:52 Pulse 82 02/22/25 07:52 Resp 20 02/22/25 07:52 BP 162/82 H 02/22/25 07:52 Pulse Ox 97 02/22/25 07:52 O2 Del Method Room Air 02/22/25 07:52 O2 Flow Rate 1 02/21/25 11:11 Oxygen Flow Rate 2 02/20/25 01:05 BMI result Body Mass Index 24.7 Const: Other: General: AO X 3, no acute distress Resp: CTA bilateral CVS: S1,S2,RRR GI: +BS, NT, no distention Skin: see pic Neuro: motor grossly intact Psych: appropriate affect Objective Data Active Medications Acetaminophen (Acetaminophen 325 Mg Tablet) 975 mg PO Q6H PRN PRN Reason: Pain, Mild 1-3,fever,headache Albuterol/Ipratropium (Albuterol/Iprat 2.5/0.5mg 3 Ml Ampul.Neb) 3 ml INHALE Q4H PRN PRN Reason: Shortness of Breath/Wheezing Amlodipine Besylate (Amlodipine Besylate 10 Mg Tablet) 10 mg PO DAILY [facility]; Protocol Last Admin: 02/22/25 08:08 Dose: 10 mg Documented By: ALIDA Aspirin (Aspirin 81 Mg Tab.Chew) 81 mg PO DAILY [facility] Last Admin: 02/22/25 08:08 Dose: 81 mg Documented By: ALIDA Atorvastatin Calcium (Atorvastatin Calcium 80 Mg Tablet) 80 mg PO DAILY [facility] Last Admin: 02/22/25 08:08 Dose: 80 mg Documented By: ALIDA Calcium Carbonate (Calcium Carbonate 750 Mg Tab.Chew) 750 mg PO Q4H PRN PRN Reason: Heartburn Dextrose (Dextrose 50 % 25 Gm/50 Ml Syringe) 25 gm IVPUSH Q15M PRN; Protocol PRN Reason: per Hypoglycemia Standing Ord. Finasteride (Finasteride 5 Mg Tablet) 5 mg PO DAILY [facility] Last Admin: 02/22/25 08:08 Dose: 5 mg Documented By: ALIDA Furosemide (Furosemide 40 Mg/4 Ml Vial) 40 mg IVPUSH BID@0900,1800 [facility]; Protocol Last Admin: 02/22/25 08:08 Dose: 40 mg Documented By: ALIDA Glucose (Glucose Gel 15 Gm Gel..Gram.) 15 gm PO Q15M PRN; Protocol PRN Reason: per Hypoglycemia Standing Ord. Hydralazine HCl (Hydralazine Hcl 50 Mg Tablet) 50 mg PO TID [facility]; Protocol Last Admin: 02/22/25 08:09 Dose: 50 mg Documented By: ALIDA Vancomycin HCl 500 mg/ Sodium (Chloride) 110 mls @ 110 mls/hr IV ONCE ONE Stop: 02/21/25 08:59 Cefazolin Sodium/Dextrose (Ancef) 2 gm in 50 mls @ 100 mls/hr IV Q8H [facility] Last Infusion: 02/22/25 08:14 Dose: Infused Documented By: ALIDA Vancomycin HCl 500 mg/ Sodium (Chloride) 110 mls @ 110 mls/hr IV ONCE ONE Stop: 02/22/25 10:59 Insulin Human Lispro (Insulin Lispro 100 Unit/Ml 3 Ml Vial) 0 unit SUBCUT QIDACHS [facility]; Protocol Last Admin: 02/22/25 07:26 Dose: Not Given Documented By: ALIDA Non-Admin Reason: No Insulin Coverage Magnesium Hydroxide (Milk Of Magnesia 30 Ml Oral.Susp) 30 ml PO DAILY PRN PRN Reason: Constipation Melatonin (Melatonin 3 Mg Tablet) 6 mg PO BEDTIME PRN PRN Reason: Insomnia Metolazone (Metolazone 5 Mg Tablet) 5 mg PO BID [facility] Last Admin: 02/22/25 08:09 Dose: 5 mg Documented By: ALIDA Metoprolol Succinate (Metoprolol Succinate Er 100 Mg Tab.Er.24h) 100 mg PO DAILY [facility]; Protocol Last Admin: 02/22/25 08:09 Dose: 100 mg Documented By: ALIDA Ondansetron HCl (Ondansetron Hcl 4 Mg/2 Ml Vial) 4 mg IVPUSH Q8H PRN PRN Reason: Nausea and Vomiting Oxycodone HCl (Oxycodone Hcl Immed Release 5 Mg Tablet) 5 mg PO Q4H PRN PRN Reason: Pain, Severe (Pain Scale 7-10) Last Admin: 02/22/25 05:52 Dose: 5 mg Documented By: VIVIANE Pharmacy Consult (Consult Rx Vancomycin Dosing) 1 each MISCELLANE DAILY PRN PRN Reason: Consult order Sodium Bicarbonate (Sodium Bicarbonate 650 Mg Tablet) 650 mg PO TID [facility] Last Admin: 02/22/25 08:09 Dose: 650 mg Documented By: ALIDA Sodium Chloride (0.9 % Sodium Chloride Flush 3 Ml Syringe) 3 ml IVFLUSH QSHIFT [facility] Last Admin: 02/22/25 08:09 Dose: 3 ml Documented By: ALIDA Tamsulosin HCl (Tamsulosin Hcl 0.4 Mg Capsule) 0.4 mg PO DAILY [facility] Last Admin: 02/22/25 08:09 Dose: 0.4 mg Documented By: ALIDA Tiotropium [place] (Tiotropium [place] 2.5 Mcg 1 Puff/2.5 Mcg Mist.Inhal) 2 puff INHALE RDAILY [facility] Last Admin: 02/22/25 07:43 Dose: 2 puff Documented By: ELLIS Vitamin D (Cholecalciferol (Vitamin D3) 25 Mcg Tablet) 25 mcg PO DAILY [facility] Last Admin: 02/22/25 08:08 Dose: 25 mcg Documented By: ALIDA Labs 02/22/25 08:27 02/22/25 08:24 Labs: Laboratory Results - last 24 hr 02/21/25 02/21/25 02/21/25 11:12 16:22 21:05 MCV MCH MCHC RDW Plt Count MPV Immature Gran % (Auto) Neut % (Auto) Lymph % (Auto) [place] % (Auto) Eos % (Auto) Baso % (Auto) Lymph # (Auto) [place] # (Auto) Eos # (Auto) Baso # (Auto) Abs Immat Gran (auto) Absolute Neuts (auto) Absolute Nucleated RBC Nucleated RBC % (auto) Anion Gap Estim Creat Clear Calc Estimated GFR POC Glucose 199 H 159 H 132 H Random Glucose Calcium Iron TIBC % Saturation Unsat Iron Binding Random Vancomycin 02/22/25 02/22/25 02/22/25 07:22 08:24 08:24 MCV MCH MCHC RDW Plt Count MPV Immature Gran % (Auto) Neut % (Auto) Lymph % (Auto) [place] % (Auto) Eos % (Auto) Baso % (Auto) Lymph # (Auto) [place] # (Auto) Eos # (Auto) Baso # (Auto) Abs Immat Gran (auto) Absolute Neuts (auto) Absolute Nucleated RBC Nucleated RBC % (auto) Anion Gap 18 19 Estim Creat Clear Calc 10.7 Estimated GFR POC Glucose 127 H Random Glucose Calcium Iron TIBC % Saturation Unsat Iron Binding Random Vancomycin 02/22/25 02/22/25 02/22/25 08:24 08:24 08:24 MCV MCH MCHC RDW Plt Count MPV Immature Gran % (Auto) Neut % (Auto) Lymph % (Auto) [place] % (Auto) Eos % (Auto) Baso % (Auto) Lymph # (Auto) [place] # (Auto) Eos # (Auto) Baso # (Auto) Abs Immat Gran (auto) Absolute Neuts (auto) Absolute Nucleated RBC Nucleated RBC % (auto) Anion Gap Estim Creat Clear Calc 10.6 Estimated GFR 7 7 POC Glucose Random Glucose 127 H 127 H Calcium 7.9 L Iron TIBC % Saturation Unsat Iron Binding Random Vancomycin 02/22/25 02/22/25 08:24 08:27 MCV 88.2 MCH 29.9 MCHC 33.9 RDW 13.9 Plt Count 315 MPV 10.1 Immature Gran % (Auto) 1.4 H Neut % (Auto) 77.4 H Lymph % (Auto) 10.9 L [place] % (Auto) 8.0 Eos % (Auto) 1.9 Baso % (Auto) 0.4 Lymph # (Auto) 1.4 [place] # (Auto) 1.0 Eos # (Auto) 0.2 Baso # (Auto) 0.1 Abs Immat Gran (auto) 0.17 H Absolute Neuts (auto) 9.6 H Absolute Nucleated RBC 0.000 Nucleated RBC % (auto) 0.0 Anion Gap Estim Creat Clear Calc Estimated GFR POC Glucose Random Glucose Calcium 7.8 L Iron 43 L TIBC 133 L % Saturation 32 Unsat Iron Binding 90 Random Vancomycin 11.5 L Microbiology Microbiology Results: Microbiology 02/20/25 01:36 Blood Culture - Final Blood - Venous Methicillin Res Staph Aureus 02/20/25 01:41 Blood Culture - Final Blood - Venous Methicillin Res Staph Aureus Assessment and Plan (1) Staphylococcus aureus bacteremia: Status: Acute (2) CKD (chronic kidney disease) stage 4, GFR 15-29 ml/min: Status: Acute (3) Acute kidney injury superimposed on CKD: Status: Acute (4) Sepsis: Status: Acute Plan 64 year male with a past medical history significant for stage I COPD, chronic respiratory failure on O2, WENDY, s/p right BKA, HTN, a AFib on Xarelto, type 2 diabetes, just recently s/p left great toe amputation 3 weeks ago on February 03 [place] [facility] [place], here with infection at amputation site and found to have new AFIB with RVR, Heart failure Sepsis secondary to acute osteomyelitis/septic arthritis L foot, lytic changes at the area suggestive of OM, temp of 101, and wbc 14 continue iv vanco, zosyn started 02/20..Stopped Zosyn on 02/21, added kefzol for synerg on 02/21 cultures positive for MRSA ID following echo no vegetations repeat blood culture 02/21, pending Acute on chronic hypoxic respiratory failure [place] to new onset CHF, cardiorenal syndorome IV Lasix and monitor echo EF 40 to 45% cardiology consultation. New onset AFib with RVR, resolved presently in sinus continue home metoprolol hold anticoagulation d/t anemia and will reassess Metabolic acidosis d/t renal failure, better bicab replacement UMAIR on CKD creatinine 7.3 from 2.83 2 months ago, but 5.3 on february 03 at [facility] [place]--Cr now stable at 7.5, no oligouria Nephrology following, further testing in progress Stage I COPD, no acute exacerbation, no acute exacerbatiobn, given steroid in ED, no indication for further steroid bronchodilators PRN Anemia secondary to CKD, Hgb 9, stable dropped todaym, monitor, stop eliquis HTN,continue norvasc, hydralzine, metoprolo Type 2 diabetes, A1C 6.6 sliding scale insulin diabetic diet Full code VTE prophylaxis: Heparin, Quality Stroke Does the patient have a stroke diagnosis?: No VTE Prior VTE?: No VTE Risk Level:: Medical - moderate - high VTE Device Contraindication: Treatment Not Indicated VTE Drug Contraindication: N/A - Med Ordered
[2025-02-22] MEDS: Heparin Sodium,Porcine 5,000 UNIT/ML VIAL 5000 UNIT SUBCUT ×2 (10:35→20:34)
[2025-02-22] MEDS: Isosorbide Mononitrate 30 MG TAB.ER.24H PO (10:35)
[2025-02-22] MEDS: vancomycin HCL 500 MG in 0.9 % Sodium Chloride 100 ML 110 MG IV (10:36)
[2025-02-22 11:05] LABS: Complement C3 141 mg/dL (82-185)
[2025-02-22 11:25] LABS: Glucose, Whole Blood 122 mg/dL (60-115)
--- NOTE | 2025-02-22 14:43 | HO.WOUND ---
Wound Consult: Initial 64yr old? male admitted to [facility] on 02/20/25- See progress notes and H&P for detailed history.? Wound consult placed for Left Foot Surgical site.? Patient agreeable to assessment and photo documentation.? Patient and family at bedside - patient reports he has follow up with his surgeon on Thursday and Thursday of next week. Encourage patient and family to keep appointment as he should have the surgeon who performed the surgery assess the incision as well as the benefits of knowing the patient what has previously transpired with his foot, they report understanding. The incision itself has no observable dehiscence however the area in the previous webspace does appear to have some serosang drainage noted - crusting dried drainage noted along suture line. No flutuance noted on foot and no induraiton. Mild erythema noted. Recommendations: 1. Turn and Reposition every 2 hours and as needed for patient comfort.? Use pillows or wedges to support off loading positions. 2. Off Load all bony prominences with use of pillows and heel boots if needed.? Apply Preventative foams where needed. ? 3. Monitor for incontinence and moisture control, use barrier creams when needed for prevention and treatment. 4. Provide adequate and supplemental nutrition.? 5. When applicable maintain blood glucose levels per Providers order. Left Foot - Cleanse with Betadine, cover with small piece of Durafiber to prior webspace cover with dry gauze ad wrap. Change every other day. Re-consult wound care Nurse for wound deterioration or wound changes.
[2025-02-22 16:17] LABS: Glucose, Whole Blood 151 mg/dL (60-115)
--- NOTE | 2025-02-22 17:33 | P.CNID_ITS ---
History of Present Illness Data of Consult Service Date: 02/20/25 Requesting physician: Ron Urias Primary Care Provider: Michelle Long MD HPI Reason for consult: MRSA bacteremia,left foot infection He presents with left foot erythema and chills. He has had left great toe amputation at [facility] on 02/03/2025. He also has had redo left femoral peroneal bypass 12/2024. He also has had right BKA. He has MRSA bacteremia. He also has latent TB treated,WENDY,DM and CKD. Review of Systems 2 Review of Systems: Yes all other systems are reviewed and are negative [facility] Past Medical History Medical History Urinary urgency Urinary tract infection Urinary hesitancy Tubular adenoma of colon Smoker Seborrheic keratoses SND (sensorineural deafness) Right BKA infection Peripheral vascular disease WENDY (obstructive sleep apnea) Microalbuminuria Lung nodule seen on imaging study Lightheadedness Latent tuberculosis LVH (left ventricular hypertrophy) Abnormal PFTs Hyponatremia Hypertensive retinopathy of both eyes Hyperkalemia Hepatitis C Hearing loss of both ears Hypertension Erectile dysfunction Cataract CKD (chronic kidney disease) Bladder wall thickening BPH (benign prostatic hyperplasia) Anticoagulated Anemia Peripheral neuropathy Diabetes mellitus, type II CVA (cerebral vascular accident) Adrenal nodule Kidney cysts Family History Family History Brother Diabetes Mother Diabetes Father Diabetes Family history: reviewed and not pertinent Surgical History Surgical History Hx of right BKA Social History Social History Household Members: Spouse Housing: Apartment Do you presently have visiting nurse or other home services: Yes Alcohol intake: never Patient Tobacco Use Status: Never used Tobacco service: No Meds Allergies Allergy/AdvReac Type Severity Reaction Status Date / Time morphine Allergy Hallucinati Verified 02/20/25 01:11 ons bupropion AdvReac Hallucinati Verified 02/20/25 01:11 ons Active Medications: Current Medications Acetaminophen (Acetaminophen 325 Mg Tablet) 975 mg PO Q6H PRN PRN Reason: Pain, Mild 1-3,fever,headache Albuterol/Ipratropium (Albuterol/Iprat 2.5/0.5mg 3 Ml Ampul.Neb) 3 ml INHALE Q4H PRN PRN Reason: Shortness of Breath/Wheezing Amlodipine Besylate (Amlodipine Besylate 10 Mg Tablet) 10 mg PO DAILY [facility]; Protocol Last Admin: 02/22/25 08:08 Dose: 10 mg Aspirin (Aspirin 81 Mg Tab.Chew) 81 mg PO DAILY [facility] Last Admin: 02/22/25 08:08 Dose: 81 mg Atorvastatin Calcium (Atorvastatin Calcium 80 Mg Tablet) 80 mg PO DAILY [facility] Last Admin: 02/22/25 08:08 Dose: 80 mg Calcium Carbonate (Calcium Carbonate 750 Mg Tab.Chew) 750 mg PO Q4H PRN PRN Reason: Heartburn Dextrose (Dextrose 50 % 25 Gm/50 Ml Syringe) 25 gm IVPUSH Q15M PRN; Protocol PRN Reason: per Hypoglycemia Standing Ord. Finasteride (Finasteride 5 Mg Tablet) 5 mg PO DAILY [facility] Last Admin: 02/22/25 08:08 Dose: 5 mg Furosemide (Furosemide 40 Mg Tablet) 40 mg PO BID@0900,1800 [facility]; Protocol Glucose (Glucose Gel 15 Gm Gel..Gram.) 15 gm PO Q15M PRN; Protocol PRN Reason: per Hypoglycemia Standing Ord. Heparin Sodium (Porcine) (Heparin Sodium,Porcine 5,000 Unit/Ml Vial) 5,000 unit SUBCUT Q12H [facility] Last Admin: 02/22/25 10:35 Dose: 5,000 unit Hydralazine HCl (Hydralazine Hcl 50 Mg Tablet) 50 mg PO TID [facility]; Protocol Last Admin: 02/22/25 16:48 Dose: 50 mg Vancomycin HCl 500 mg/ Sodium (Chloride) 110 mls @ 110 mls/hr IV ONCE ONE Stop: 02/21/25 08:59 Cefazolin Sodium/Dextrose (Ancef) 2 gm in 50 mls @ 100 mls/hr IV Q8H [facility] Last Infusion: 02/22/25 16:11 Dose: Infused Insulin Human Lispro (Insulin Lispro 100 Unit/Ml 3 Ml Vial) 0 unit SUBCUT QIDACHS [facility]; Protocol Last Admin: 02/22/25 16:12 Dose: Not Given Isosorbide Mononitrate (Isosorbide Mononitrate 30 Mg Tab.Er.24h) 30 mg PO DAILY [facility]; Protocol Last Admin: 02/22/25 10:35 Dose: 30 mg Magnesium Hydroxide (Milk Of Magnesia 30 Ml Oral.Susp) 30 ml PO DAILY PRN PRN Reason: Constipation Melatonin (Melatonin 3 Mg Tablet) 6 mg PO BEDTIME PRN PRN Reason: Insomnia Metoprolol Succinate (Metoprolol Succinate Er 100 Mg Tab.Er.24h) 100 mg PO DAILY [facility]; Protocol Last Admin: 02/22/25 08:09 Dose: 100 mg Ondansetron HCl (Ondansetron Hcl 4 Mg/2 Ml Vial) 4 mg IVPUSH Q8H PRN PRN Reason: Nausea and Vomiting Oxycodone HCl (Oxycodone Hcl Immed Release 5 Mg Tablet) 5 mg PO Q4H PRN PRN Reason: Pain, Severe (Pain Scale 7-10) Last Admin: 02/22/25 14:35 Dose: 5 mg Pharmacy Consult (Consult Rx Vancomycin Dosing) 1 each MISCELLANE DAILY PRN PRN Reason: Consult order Sodium Bicarbonate (Sodium Bicarbonate 650 Mg Tablet) 650 mg PO TID [facility] Last Admin: 02/22/25 16:49 Dose: 650 mg Sodium Chloride (0.9 % Sodium Chloride Flush 3 Ml Syringe) 3 ml IVFLUSH QSHIFT [facility] Last Admin: 02/22/25 08:09 Dose: 3 ml Tamsulosin HCl (Tamsulosin Hcl 0.4 Mg Capsule) 0.4 mg PO DAILY [facility] Last Admin: 02/22/25 08:09 Dose: 0.4 mg Tiotropium [place] (Tiotropium [place] 2.5 Mcg 1 Puff/2.5 Mcg Mist.Inhal) 2 puff INHALE RDAILY [facility] Last Admin: 02/22/25 07:43 Dose: 2 puff Vitamin D (Cholecalciferol (Vitamin D3) 25 Mcg Tablet) 25 mcg PO DAILY [facility] Last Admin: 02/22/25 08:08 Dose: 25 mcg Home Medications ?Medication ?Instructions ?Recorded ?Confirmed ?Last Taken ?Type amlodipine 10 mg tablet 10 mg PO DAILY 12/19/24 02/20/25 02/19/25 09:00 History aspirin 81 mg chewable tablet 1 tab PO DAILY 12/19/24 02/20/25 02/19/25 09:00 History atorvastatin 80 mg tablet 80 mg PO DAILY 12/19/24 02/20/25 02/19/25 09:00 History dapagliflozin propanediol 10 mg 10 mg PO DAILY 12/19/24 02/20/25 02/19/25 09:00 History tablet (Farxiga) finasteride 5 mg tablet 5 mg PO DAILY 12/19/24 02/20/25 02/19/25 09:00 History metoprolol succinate 100 mg 100 mg PO DAILY 12/19/24 02/20/25 02/19/25 09:00 History tablet,extended release 24 hr sodium zirconium cyclosilicate 10 10 g PO DAILY 12/19/24 02/20/25 02/19/25 09:00 History gram oral powder packet (Lokelma) tamsulosin 0.4 mg capsule 0.4 mg PO DAILY 12/19/24 02/20/25 02/19/25 09:00 History umeclidinium 62.5 mcg/actuation 1 inh inhalation DAILY 12/19/24 02/20/25 02/19/25 09:00 History blister powder for inhalation (Incruse Ellipta) hydralazine 25 mg tablet 50 mg PO TID 12/30/24 02/20/25 02/19/25 09:00 History rivaroxaban 2.5 mg tablet (Xarelto) 2.5 mg PO BID 12/30/24 02/20/25 02/19/25 History sodium bicarbonate 650 mg tablet 650 mg PO TID 12/30/24 02/20/25 02/19/25 09:00 History Physical Exam 2 Vital Signs: Vital Signs: Last Vital Signs Temp 98.3 F 02/22/25 15:33 Pulse 67 02/22/25 15:33 Resp 20 02/22/25 15:33 BP 134/61 02/22/25 15:33 Pulse Ox 98 02/22/25 15:33 O2 Del Method Room Air 02/22/25 15:33 O2 Flow Rate 1 02/21/25 11:11 Oxygen Flow Rate 2 02/20/25 01:05 BMI result Body Mass Index 24.7 Const: General: cooperative HEENT: Head: Yes normal to inspection Face and sinus: Yes normal facial exam Mouth: Normal oral and palatal mucosa present Teeth and gingiva: d entition normal Eyes: General: appearance normal, both eyes and all related structures P upils: Equal, round and reactive pupils present Resp: Effort & Inspection: normal respiratory effort Cardio: Rate: regular rate Rhythm: regular rhythm GI: Palpation (GI): Soft to palpation and nontender : General: Yes no CVA tenderness Back/Spine/Pelvis: Back: no CVA tenderness Skin: General skin exam: no rashes or lesions noted Neuro: General: moves all extremities Cranial nerves: Yes Equal, round and reactive pupils present Extrem: Other: left erythema General: Yes normal to inspection Psych: Appearance: grossly normal Results Labs 02/22/25 08:27 02/22/25 08:24 Labs: Short CBC 02/22/25 Range/Units 08:27 WBC 12.5 H (4.8-10.8) X10*3/uL Hgb 8.6 L (14.0-18.0) g/dl Hct 25.4 L (42.0-52.0) % Plt Count 315 (160-400) X10*3/uL BMP 02/22/25 02/22/25 02/22/25 08:24 08:24 08:24 Sodium 134 L 134 L Potassium 3.6 3.7 Chloride 102 Carbon Dioxide BUN Creatinine Calcium 02/22/25 02/22/25 02/22/25 08:24 08:24 08:24 Sodium Potassium Chloride 102 Carbon Dioxide 18 L 17 L BUN 92 H 91 H Creatinine 7.52 H* Calcium 02/22/25 02/22/25 08:24 08:24 Sodium Potassium Chloride Carbon Dioxide BUN Creatinine 7.57 H* Calcium 7.9 L 7.8 L Microbiology Microbiology Results: Microbiology 02/21/25 11:58 Blood - Venous Blood Culture - Preliminary Prelim: GPC Gram Stain only 02/21/25 11:58 Blood - Venous Blood Culture - Preliminary No growth after 24 hours. 02/20/25 01:36 Blood - Venous Blood Culture - Final Methicillin Res Staph Aureus 02/20/25 01:41 Blood - Venous Blood Culture - Final Methicillin Res Staph Aureus Assessment and Plan (1) Staphylococcus aureus bacteremia: Status: Acute (2) Sepsis: Qualifiers: Sepsis type: sepsis due to unspecified organism Sepsis acute organ dysfunction status: unspecified Qualified Code(s): A41.9 - Sepsis, unspecified organism Status: Acute (3) Septic arthritis: Status: Acute Plan Kefzol for five days. Vancomycin or Daptomycin for six weeks with weekly creat and Vancomycin levels treat foot Follow Surgery [facility]. TTE if not done
[2025-02-22] MEDS: Furosemide 40 MG TABLET PO (18:26)
[2025-02-22] MEDS: Insulin Lispro 100 UNIT/ML 3 ML VIAL SUBCUT (20:34)
[2025-02-22 20:38] LABS: Glucose, Whole Blood 157 mg/dL (60-115)
[2025-02-23] VITALS (8 sets, daily range): BP systolic 121–157; BP diastolic 58–66; PULSE 62–97; RESP 18–20; TEMP 36.2–37; O2SAT 96–100
[2025-02-23] MEDS: hydrALAZINE HCl 50 MG TABLET PO ×4 (00:15→21:46)
[2025-02-23] MEDS: ceFAZolin Sodium/Dextrose,Iso 2 GM/50 ML PIGGYBACK IV ×3 (04:59→21:45)
[2025-02-23 07:49] LABS: Glucose, Whole Blood 117 mg/dL (60-115)
[2025-02-23] MEDS: Tiotropium Bromide 2.5 mcg 1 PUFF/2.5 MCG MIST.INHAL 2 PUFF INHALE (07:53)
[2025-02-23] MEDS: amLODIPine Besylate 10 MG TABLET PO (08:11)
[2025-02-23] MEDS: Isosorbide Mononitrate 30 MG TAB.ER.24H PO (08:11)
[2025-02-23] MEDS: Furosemide 40 MG TABLET PO ×2 (08:11→17:34)
[2025-02-23] MEDS: Cholecalciferol (Vitamin D3) 25 MCG TABLET PO (08:11)
[2025-02-23] MEDS: Tamsulosin HCL 0.4 MG CAPSULE PO (08:11)
[2025-02-23] MEDS: Finasteride 5 MG TABLET PO (08:11)
[2025-02-23] MEDS: Metoprolol Succinate ER 100 MG TAB.ER.24H PO (08:11)
[2025-02-23] MEDS: Atorvastatin Calcium 80 MG TABLET PO (08:11)
[2025-02-23] MEDS: Aspirin 81 MG TAB.CHEW PO (08:11)
[2025-02-23] MEDS: 0.9 % Sodium Chloride Flush 3 ML SYRINGE IVFLUSH ×2 (08:12→16:01)
[2025-02-23] MEDS: Sodium Bicarbonate 650 MG TABLET PO ×3 (08:12→21:46)
[2025-02-23] MEDS: oxyCODONE HCl Immed Release 5 MG TABLET PO ×2 (08:14→21:48)
[2025-02-23 08:30] LABS: Creatinine Clr Calc Pharmacy 9.4; Estimated Glomerular Filt Rate 6
--- NOTE | 2025-02-23 09:44 | HE.PHANOTE ---
VANCO DOSE ADJUSTMENT BASED ON SCR AND TROUGH OF 15 DOSE CONTINUED AT 500 Q 24H. ONLY 1 DOSE ENTERED BASED ON PATIENT RENAL FUNCTION. FOLLOWING DAILY
--- NOTE | 2025-02-23 09:55 | P.PNNP_ITS ---
Subjective Subjective Date of Service: 02/23/25 Interval history: 64 y/o male with a medical history of CKD4 from HTN, DMII, vascular disease following for UMAIR on CKD creatinine increased from baseline 2.83 to 7.3 on presentation, creatinine 8.51 today (up from 7.57 yesterday) patient receiving 40mg PO lasix BID, produced 2.6L urine output over last 24 hours UA with large amount of protein, no blood/other cells states his breathing has improved and feels comfortable on room air denies nausea, vomiting, chest pain, abdominal pain, shortness of breath states he feels good and does not have any new symptoms/concerns Physical Exam 2 Vital Signs: Vital Signs: Last Vital Signs Temp 98.6 F 02/23/25 07:58 Pulse 97 02/23/25 07:58 Resp 20 02/23/25 07:58 BP 157/66 H 02/23/25 07:58 Pulse Ox 100 02/23/25 07:58 O2 Del Method Room Air 02/23/25 07:58 O2 Flow Rate 1 02/21/25 11:11 Oxygen Flow Rate 2 02/20/25 01:05 BMI result Body Mass Index 24.7 Const: General: no acute distress, alert and awake Neck: Neck: Yes no JVD Resp: Effort & Inspection: normal respiratory effort and able to speak in complete sentences Auscultation: clear to auscultation bilaterally Cardio: Rate: regular rate Rhythm: regular rhythm Heart sounds: S1 normal heart sound present and S2 normal heart sound present GI: Palpation (GI): Soft to palpation and nontender : General: Yes no CVA tenderness Back/Spine/Pelvis: Back: no CVA tenderness Skin: Rashes: no rashes Extrem: General: No edema Objective Data Labs 02/22/25 08:27 02/23/25 08:09 Labs: Laboratory Results - last 24 hr 02/21/25 02/22/25 02/22/25 06:28 11:21 16:11 Creatinine Estim Creat Clear Calc Estimated GFR POC Glucose 122 H 151 H Random Vancomycin Complement C3 141 Complement C4 31 02/22/25 02/23/25 02/23/25 20:27 07:46 08:09 Creatinine 8.51 H* Estim Creat Clear Calc 9.4 Estimated GFR 6 POC Glucose 157 H 117 H Random Vancomycin 15.0 Complement C3 Complement C4 Microbiology Microbiology Results: Microbiology 02/21/25 11:58 Blood - Venous Blood Culture - Preliminary Prelim: GPC Gram Stain only 02/21/25 11:58 Blood - Venous Blood Culture - Preliminary No growth after 24 hours. 02/20/25 01:36 Blood - Venous Blood Culture - Final Methicillin Res Staph Aureus 02/20/25 01:41 Blood - Venous Blood Culture - Final Methicillin Res Staph Aureus Procedures Date of Service Date of Service: 02/23/25 Assessment & Plan Assessment and plan (1) Acute kidney injury superimposed on CKD: Status: Acute (2) Fluid overload: Status: Acute (3) Hypertension: Status: Acute Plan UMAIR on CKD, osteomyelitis likely contributory; fluid overload may also be contributing renal function has remained fairly stable, patient continues to make urine pulmonary edema likely from kidney disease, echo shows EF of 40-45%, which may also be contributing patient appears euvolemic, will continue 40mg lasix PO BID blood pressures improving, will continue current regimen and adjust as outpatient if needed *needs outpatient follow up for complex renal cysts on renal US. Discussed with Dr Kuhn Time Spent With Patient Time: Total time managing care of this patient today ____ minutes. Progress Note: Quality Stroke Does the patient have a stroke diagnosis?: No
--- NOTE | 2025-02-23 10:17 | P.PNIM_ITS ---
Subjective Subjective Date of Service: 02/23/25 Interval History: blood cultures positive for staph aur, probably MRS WBC down, no confusion, repeat blood culture from 02/21 1 positiv Physical Exam 2 Vital Signs: Vital Signs: Last Vital Signs Temp 98.6 F 02/23/25 07:58 Pulse 97 02/23/25 07:58 Resp 20 02/23/25 07:58 BP 157/66 H 02/23/25 07:58 Pulse Ox 100 02/23/25 07:58 O2 Del Method Room Air 02/23/25 07:58 O2 Flow Rate 1 02/21/25 11:11 Oxygen Flow Rate 2 02/20/25 01:05 BMI result Body Mass Index 24.7 Const: Other: General: AO X 3, no acute distress Resp: CTA bilateral CVS: S1,S2,RRR GI: +BS, NT, no distention Skin: see pic Neuro: motor grossly intact Psych: appropriate affect Objective Data Active Medications Acetaminophen (Acetaminophen 325 Mg Tablet) 975 mg PO Q6H PRN PRN Reason: Pain, Mild 1-3,fever,headache Albuterol/Ipratropium (Albuterol/Iprat 2.5/0.5mg 3 Ml Ampul.Neb) 3 ml INHALE Q4H PRN PRN Reason: Shortness of Breath/Wheezing Amlodipine Besylate (Amlodipine Besylate 10 Mg Tablet) 10 mg PO DAILY [facility]; Protocol Last Admin: 02/23/25 08:11 Dose: 10 mg Documented By: MONTEZ Aspirin (Aspirin 81 Mg Tab.Chew) 81 mg PO DAILY [facility] Last Admin: 02/23/25 08:11 Dose: 81 mg Documented By: MONTEZ Atorvastatin Calcium (Atorvastatin Calcium 80 Mg Tablet) 80 mg PO DAILY [facility] Last Admin: 02/23/25 08:11 Dose: 80 mg Documented By: MONTEZ Calcium Carbonate (Calcium Carbonate 750 Mg Tab.Chew) 750 mg PO Q4H PRN PRN Reason: Heartburn Dextrose (Dextrose 50 % 25 Gm/50 Ml Syringe) 25 gm IVPUSH Q15M PRN; Protocol PRN Reason: per Hypoglycemia Standing Ord. Finasteride (Finasteride 5 Mg Tablet) 5 mg PO DAILY [facility] Last Admin: 02/23/25 08:11 Dose: 5 mg Documented By: MONTEZ Furosemide (Furosemide 40 Mg Tablet) 40 mg PO BID@0900,1800 [facility]; Protocol Last Admin: 02/23/25 08:11 Dose: 40 mg Documented By: MONTEZ Glucose (Glucose Gel 15 Gm Gel..Gram.) 15 gm PO Q15M PRN; Protocol PRN Reason: per Hypoglycemia Standing Ord. Heparin Sodium (Porcine) (Heparin Sodium,Porcine 5,000 Unit/Ml Vial) 5,000 unit SUBCUT Q12H [facility] Last Admin: 02/22/25 20:34 Dose: 5,000 unit Documented By: MONIKA Hydralazine HCl (Hydralazine Hcl 50 Mg Tablet) 50 mg PO TID [facility]; Protocol Last Admin: 02/23/25 08:11 Dose: 50 mg Documented By: MONTEZ Vancomycin HCl 500 mg/ Sodium (Chloride) 110 mls @ 110 mls/hr IV ONCE ONE Stop: 02/21/25 08:59 Cefazolin Sodium/Dextrose (Ancef) 2 gm in 50 mls @ 100 mls/hr IV Q8H [facility] Last Infusion: 02/23/25 05:29 Dose: Infused Documented By: MONIKA Vancomycin HCl 500 mg/ Sodium (Chloride) 110 mls @ 110 mls/hr IV ONCE ONE Stop: 02/23/25 10:59 Insulin Human Lispro (Insulin Lispro 100 Unit/Ml 3 Ml Vial) 0 unit SUBCUT QIDACHS [facility]; Protocol Last Admin: 02/23/25 07:58 Dose: Not Given Documented By: MONTEZ Non-Admin Reason: No Insulin Coverage Isosorbide Mononitrate (Isosorbide Mononitrate 30 Mg Tab.Er.24h) 30 mg PO DAILY [facility]; Protocol Last Admin: 02/23/25 08:11 Dose: 30 mg Documented By: MONTEZ Magnesium Hydroxide (Milk Of Magnesia 30 Ml Oral.Susp) 30 ml PO DAILY PRN PRN Reason: Constipation Melatonin (Melatonin 3 Mg Tablet) 6 mg PO BEDTIME PRN PRN Reason: Insomnia Metoprolol Succinate (Metoprolol Succinate Er 100 Mg Tab.Er.24h) 100 mg PO DAILY [facility]; Protocol Last Admin: 02/23/25 08:11 Dose: 100 mg Documented By: MONTEZ Ondansetron HCl (Ondansetron Hcl 4 Mg/2 Ml Vial) 4 mg IVPUSH Q8H PRN PRN Reason: Nausea and Vomiting Oxycodone HCl (Oxycodone Hcl Immed Release 5 Mg Tablet) 5 mg PO Q4H PRN PRN Reason: Pain, Severe (Pain Scale 7-10) Last Admin: 02/23/25 08:14 Dose: 5 mg Documented By: MONTEZ Pharmacy Consult (Consult Rx Vancomycin Dosing) 1 each MISCELLANE DAILY PRN PRN Reason: Consult order Sodium Bicarbonate (Sodium Bicarbonate 650 Mg Tablet) 650 mg PO TID [facility] Last Admin: 02/23/25 08:12 Dose: 650 mg Documented By: MONTEZ Sodium Chloride (0.9 % Sodium Chloride Flush 3 Ml Syringe) 3 ml IVFLUSH QSHIFT [facility] Last Admin: 02/23/25 08:12 Dose: 3 ml Documented By: MONTEZ Tamsulosin HCl (Tamsulosin Hcl 0.4 Mg Capsule) 0.4 mg PO DAILY [facility] Last Admin: 02/23/25 08:11 Dose: 0.4 mg Documented By: MONTEZ Tiotropium [place] (Tiotropium [place] 2.5 Mcg 1 Puff/2.5 Mcg Mist.Inhal) 2 puff INHALE RDAILY [facility] Last Admin: 02/23/25 07:53 Dose: 2 puff Documented By: ELLIS Vitamin D (Cholecalciferol (Vitamin D3) 25 Mcg Tablet) 25 mcg PO DAILY [facility] Last Admin: 02/23/25 08:11 Dose: 25 mcg Documented By: MONTEZ Labs 02/22/25 08:27 02/23/25 08:09 Labs: Laboratory Results - last 24 hr 02/21/25 02/22/25 02/22/25 06:28 11:21 16:11 Estim Creat Clear Calc Estimated GFR POC Glucose 122 H 151 H Random Vancomycin Complement C3 141 Complement C4 31 02/22/25 02/23/25 02/23/25 20:27 07:46 08:09 Estim Creat Clear Calc 9.4 Estimated GFR 6 POC Glucose 157 H 117 H Random Vancomycin 15.0 Complement C3 Complement C4 Microbiology Microbiology Results: Microbiology 02/21/25 11:58 Blood Culture - Final Blood - Venous Methicillin Res Staph Aureus 02/21/25 11:58 Blood Culture - Preliminary Blood - Venous No growth after 24 hours. 02/20/25 01:36 Blood Culture - Final Blood - Venous Methicillin Res Staph Aureus 02/20/25 01:41 Blood Culture - Final Blood - Venous Methicillin Res Staph Aureus Assessment and Plan (1) Staphylococcus aureus bacteremia: Status: Acute (2) CKD (chronic kidney disease) stage 4, GFR 15-29 ml/min: Status: Acute (3) Acute kidney injury superimposed on CKD: Status: Acute (4) Sepsis: Status: Acute Plan 64 year male with a past medical history significant for stage I COPD, chronic respiratory failure on O2, WENDY, s/p right BKA, HTN, a AFib on Xarelto, type 2 diabetes, just recently s/p left great [place] 3 [place] [facility] [place], here with infection at amputation site and found to have new AFIB with RVR, Heart failure Sepsis secondary to acute osteomyelitis/septic arthritis L foot, lytic changes at the area suggestive of OM, temp of 101, and wbc 14 continue iv vanco, zosyn started 02/20..Stopped Zosyn on 02/21, added kefzol for synerg on 02/21 cultures positive for MRSA ID following echo no vegetations repeat blood culture 02/21 1/2 +, repeat blood cultures today Acute on chronic hypoxic respiratory failure [place] to new onset CHF, cardiorenal syndorome IV Lasix to PO lasix echo EF 40 to 45% cardiology consultation. New onset AFib with RVR, resolved presently in sinus continue home metoprolol hold anticoagulation d/t anemia and will reassess in near future Metabolic acidosis d/t renal failure, better bicab replacement UMAIR on CKD creatinine 7.3 from 2.83 2 months ago, but 5.3 on february 03 [place] [facility] [place] now stable at 7.5 to 8, no oligouria Nephrology following, further testing in progress Stage I COPD, no acute exacerbation, no acute exacerbatiobn, given steroid in ED, no indication for further steroid bronchodilators PRN Anemia secondary to CKD, Hgb 9, stable dropped todaym, monitor, stop eliquis HTN,continue norvasc, hydralzine, metoprolo Type 2 diabetes, A1C 6.6 sliding scale insulin diabetic diet Full code VTE prophylaxis: Heparin, Quality Stroke Does the patient have a stroke diagnosis?: No VTE Prior VTE?: No VTE Risk Level:: Medical - moderate - high VTE Device Contraindication: Treatment Not Indicated VTE Drug Contraindication: N/A - Med Ordered
[2025-02-23] MEDS: vancomycin HCL 500 MG in 0.9 % Sodium Chloride 100 ML 110 MG IV (10:30)
[2025-02-23] MEDS: Heparin Sodium,Porcine 5,000 UNIT/ML VIAL 5000 UNIT SUBCUT ×2 (10:33→21:46)
[2025-02-23 11:08] LABS: Glucose, Whole Blood 121 mg/dL (60-115)
[2025-02-23 11:31] LABS: Anion Gap 21 (12-20); Blood Urea Nitrogen 90 mg/dL (9-16); Calcium 7.8 mg/dL (8.4-10.2); Carbon Dioxide 18 mmol/L (22-29); Chloride 105 mmol/L (96-108); Glucose Random 109 mg/dL (60-115); Potassium 3.8 mmol/L (3.3-5.1); Sodium 137 mmol/L (135-145)
--- NOTE | 2025-02-23 12:35 | P.CDIM_ITS ---
PROVIDER RESPONSE TEXT: To clarify, the appropriate diagnosis supported by the clinical indicators: Systolic: acute QUERY TEXT: PHYSICIAN'S DOCUMENTATION REQUEST Date of Query: 02/23/2025 11:06 AM EDT Patient Name: Renato Hinson Admit Date: 02/20/2025 Dear Ron Walker MD, A review of the medical record indicates additional documentation may be needed. Please review below and update the documentation accordingly. Clinical Indicators: Cardiology consultation 02/21/25 - New onset Congestive heart failure. BNP 3183 H Lasix Nephrology consultation note 02/23/25 - Noted to be in CHF on admission and was diuresed. Overall he h as done well with diuresis and improved. Pulmonary edema likely from kidney disease, echo shows EF of 40-45% which may also be contributing. Progress note 02/22/25 - Patient here with infection at amputation site and found to have new AFIB wit h RVR, Heart failure. IV Lasix and monitor. Echocardiogram 02/20/25 Please provide further specificity regarding the most likely type and acuity of CHF you are evaluatin g, treating, or monitoring. Systolic Please specify if Acute, Chronic, or Acute on chronic, or Unable to determine Diastolic Please specify if Acute, Chronic, or Acute on chronic, or Unable to determine Combined Systolic/Diastolic Please specify if Acute, Chronic, or Acute on chronic, or Unable to determine Other (explain) Clinically unable to determine (explain) Thank you, Radha Noland, CCS, CDIS Use of terms such as suspected, likely, concern for, or probable (associated with a specific diagnosi s that is being evaluated, monitored, or treated as if it exists) are acceptable and can be coded in the inpatient se tting, when documented at the time of discharge. Please use your independent medical judgment in providing your response. THIS QUERY IS PART OF THE PERMANENT MEDICAL RECORD
--- NOTE | 2025-02-23 12:35 | P.CDIM_ITS ---
PROVIDER RESPONSE TEXT: To clarify, the appropriate diagnosis supported by the clinical indicators: Acute QUERY TEXT: PHYSICIAN'S DOCUMENTATION REQUEST Date of Query: 02/22/2025 07:50 AM EDT Patient Name: Renato Hinson Admit Date: 02/20/2025 Dear Ron Walker MD, A review of the medical record indicates additional documentation may be needed. Please review below and update the documentation accordingly. Clinical Indicators: Progress note dated 02/21/25 - Metabolic acidosis d/t renal failure. Bicarb replacement. Clarify which of the following accurately represents the acuity of the Metabolic acidosis: Possible options might include: Acute Chronic Other specified Other (explain) Clinically unable to determine (explain) Thank you, Radha Noland, CCS, CDIS Use of terms such as suspected, likely, concern for, or probable (associated with a specific diagnosi s that is being evaluated, monitored, or treated as if it exists) are acceptable and can be coded in the inpatient se tting, when documented at the time of discharge. Please use your independent medical judgment in providing your response. THIS QUERY IS PART OF THE PERMANENT MEDICAL RECORD
--- NOTE | 2025-02-23 13:57 | PM.PNCARD ---
Subjective Subjective Date of Service: 02/23/25 Interval history: Denying any shortness of breath. Physical Exam Vital Signs: Last Vital Signs Temp 97.2 F 02/23/25 12:00 Pulse 87 02/23/25 12:00 Resp 18 02/23/25 12:00 BP 134/63 02/23/25 12:00 Pulse Ox 97 02/23/25 12:00 O2 Del Method Room Air 02/23/25 12:00 O2 Flow Rate 1 02/21/25 11:11 Oxygen Flow Rate 2 02/20/25 01:05 BMI result Body Mass Index 24.7 GENERAL APPEARANCE: in no acute distress, pleasant. NECK: no carotid bruit, no jugular venous distention. SKIN: no suspicious lesions, warm and dry. HEART: no murmurs, regular rate and rhythm. LUNGS: Clear to auscultation. ABDOMEN: soft, nontender. PERIPHERAL PULSES: equal. NEUROLOGIC: No gross deficits, AAO X 3 Objective Labs and Meds 02/22/25 08:27 02/23/25 08:09 Lab results: Laboratory Results - last 24 hr 02/22/25 02/22/25 02/23/25 16:11 20:27 07:46 Sodium Potassium Chloride Carbon Dioxide Anion Gap BUN Creatinine Estim Creat Clear Calc Estimated GFR POC Glucose 151 H 157 H 117 H Random Glucose Calcium Random Vancomycin 02/23/25 02/23/25 08:09 11:03 Sodium 137 Potassium 3.8 Chloride 105 Carbon Dioxide 18 L Anion Gap 21 H BUN 90 H Creatinine 8.51 H* Estim Creat Clear Calc 9.4 Estimated GFR 6 POC Glucose 121 H Random Glucose 109 Calcium 7.8 L Random Vancomycin 15.0 Progress Note: A&P Assessment and plan (1) Staphylococcus aureus bacteremia: Status: Acute (2) New onset of congestive heart failure: Status: Acute Plan Pleasant 64 year gentleman who underwent amputation of great toe in early February at [facility] now presenting with shortness of breath and concern for wound infection. He is noted to have significant kidney injury. Preop his creatinine was 5 and in November his creatinine was 2. He was noted to be in congestive heart failure on admission and was diuresed. Overall he has done well with diuresis and clinically he has improved. Continues to have significant kidney injury and dysfunction at this point. He is not encephalopathy and does not have asterixis on examination. Nephrology is following him closely. He has MRSA bacteremia currently. Echocardiography has not shown any vegetation. Thank you for allowing me to participate in the care of your patient. Please feel free to contact me if you have any questions. Time Spent With Patient Time: Total time managing care of this patient today ____ minutes. Progress Note: Quality Stroke Does the patient have a stroke diagnosis?: No Procedures Date of Service Date of Service: 02/23/25
[2025-02-23 16:28] LABS: Glucose, Whole Blood 115 mg/dL (60-115)
[2025-02-23 20:43] LABS: Glucose, Whole Blood 130 mg/dL (60-115)
[2025-02-24] VITALS (9 sets, daily range): BP systolic 123–151; BP diastolic 51–69; PULSE 58–80; RESP 15–20; TEMP 36.6–37.3; O2SAT 95–97
[2025-02-24] MEDS: ceFAZolin Sodium/Dextrose,Iso 2 GM/50 ML PIGGYBACK IV (05:46)
[2025-02-24] MEDS: 0.9 % Sodium Chloride Flush 3 ML SYRINGE IVFLUSH ×3 (05:46→17:56)
[2025-02-24 07:34] LABS: Glucose, Whole Blood 97 mg/dL (60-115)
[2025-02-24] MEDS: Tiotropium Bromide 2.5 mcg 1 PUFF/2.5 MCG MIST.INHAL 2 PUFF INHALE (07:37)
--- NOTE | 2025-02-24 08:52 | P.PNNP_ITS ---
Subjective Subjective Date of Service: 02/24/25 Interval history: 64 y/o male with a medical history of CKD4 from HTN, DMII, vascular disease following for UMAIR on CKD creatinine increased from baseline 2.83 to to mid 7-8s, GFR has remained stable here. patient receiving 40mg PO lasix BID, produced 1.1L urine output over last 24 hours UA with large amount of protein, no blood/other cells reports breathing is comfortable on room air denies nausea, vomiting, chest pain, abdominal pain, shortness of breath states he feels good and does not have any new symptoms/concerns blood cultures remain positive for mrsa (osteomyelitis). Physical Exam 2 Vital Signs: Vital Signs: Last Vital Signs Temp 97.9 F 02/24/25 07:10 Pulse 80 02/24/25 07:38 Resp 16 02/24/25 07:38 BP 151/69 H 02/24/25 07:10 Pulse Ox 97 02/24/25 07:10 O2 Del Method Room Air 02/24/25 07:10 O2 Flow Rate 1 02/21/25 11:11 Oxygen Flow Rate 2 02/20/25 01:05 BMI result Body Mass Index 24.7 Const: General: no acute distress, alert and awake Neck: Neck: Yes no JVD Resp: Effort & Inspection: normal respiratory effort and able to speak in complete sentences Auscultation: clear to auscultation bilaterally Cardio: Rate: regular rate Rhythm: regular rhythm Heart sounds: S1 normal heart sound present and S2 normal heart sound present GI: Palpation (GI): Soft to palpation and nontender : General: Yes no CVA tenderness Back/Spine/Pelvis: Back: no CVA tenderness Skin: Rashes: no rashes Extrem: General: No edema Objective Data Labs 02/22/25 08:27 02/24/25 09:05 Labs: Laboratory Results - last 24 hr 02/23/25 02/23/25 02/23/25 08:09 11:03 15:55 Sodium 137 Potassium 3.8 Chloride 105 Carbon Dioxide 18 L Anion Gap 21 H BUN 90 H Creatinine 8.51 H* Estim Creat Clear Calc 9.4 Estimated GFR 6 POC Glucose 121 H 115 Random Glucose 109 Calcium 7.8 L 02/23/25 02/24/25 20:39 07:30 Sodium Potassium Chloride Carbon Dioxide Anion Gap BUN Creatinine Estim Creat Clear Calc Estimated GFR POC Glucose 130 H 97 Random Glucose Calcium Microbiology Microbiology Results: Microbiology 02/21/25 11:58 Blood - Venous Blood Culture - Preliminary No growth after 48 hours. 02/21/25 11:58 Blood - Venous Blood Culture - Final Methicillin Res Staph Aureus 02/20/25 01:36 Blood - Venous Blood Culture - Final Methicillin Res Staph Aureus 02/20/25 01:41 Blood - Venous Blood Culture - Final Methicillin Res Staph Aureus Procedures Date of Service Date of Service: 02/24/25 Assessment & Plan Assessment and plan (1) Acute kidney injury superimposed on CKD: Status: Acute (2) Fluid overload: Status: Acute (3) Hypertension: Status: Acute Plan UMAIR liekly tubular injury on CKD, osteomyelitis likely contributory; fluid overload may also be contributing renal function has remained fairly stable, patient continues to make urine pulmonary edema likely from kidney disease, echo shows EF of 40-45%, which may also be contributing patient appears euvolemic, will continue 40mg lasix PO BID blood pressures improving, will continue current regimen and adjust as outpatient if needed *needs outpatient follow up for complex renal cysts on renal US. Discussed with Dr Kuhn. Time Spent With Patient Time: Total time managing care of this patient today ____ minutes. Progress Note: Quality Stroke Does the patient have a stroke diagnosis?: No
[2025-02-24] MEDS: Isosorbide Mononitrate 30 MG TAB.ER.24H PO (09:08)
[2025-02-24] MEDS: Heparin Sodium,Porcine 5,000 UNIT/ML VIAL 5000 UNIT SUBCUT ×2 (09:08→21:11)
[2025-02-24] MEDS: amLODIPine Besylate 10 MG TABLET PO (09:08)
[2025-02-24] MEDS: Tamsulosin HCL 0.4 MG CAPSULE PO (09:08)
[2025-02-24] MEDS: Metoprolol Succinate ER 100 MG TAB.ER.24H PO (09:08)
[2025-02-24] MEDS: Sodium Bicarbonate 650 MG TABLET PO ×3 (09:09→21:11)
[2025-02-24] MEDS: Aspirin 81 MG TAB.CHEW PO (09:09)
[2025-02-24] MEDS: hydrALAZINE HCl 50 MG TABLET PO ×3 (09:09→21:11)
[2025-02-24] MEDS: Furosemide 40 MG TABLET PO ×2 (09:09→17:55)
[2025-02-24] MEDS: Cholecalciferol (Vitamin D3) 25 MCG TABLET PO (09:09)
[2025-02-24] MEDS: Atorvastatin Calcium 80 MG TABLET PO (09:09)
[2025-02-24] MEDS: Finasteride 5 MG TABLET PO (09:09)
[2025-02-24] MEDS: oxyCODONE HCl Immed Release 5 MG TABLET PO ×2 (09:16→21:13)
[2025-02-24 09:29] LABS: Anion Gap 21 (12-20); Blood Urea Nitrogen 101 mg/dL (9-16); Carbon Dioxide 18 mmol/L (22-29); Chloride 104 mmol/L (96-108); Creatinine Clr Calc Pharmacy 9.1; Estimated Glomerular Filt Rate 6; Glucose Random 105 mg/dL (60-115); Potassium 3.8 mmol/L (3.3-5.1); Sodium 139 mmol/L (135-145)
[2025-02-24 09:30] LABS: Vancomycin Random 18.4 mcg/mL (15-20)
[2025-02-24 09:33] LABS: Estimated Glomerular Filt Rate 6
--- NOTE | 2025-02-24 10:37 | HO.PM.IMPN ---
Subjective Subjective Date of Service: 02/24/25 Interval History: blood cultures positive for staph aur, probably MRS WBC down, no confusion, repeat blood culture from 02/21 1 positiv Physical Exam Vital Signs: Vital Signs: Last Vital Signs Temp 97.9 F 02/24/25 07:10 Pulse 80 02/24/25 07:38 Resp 16 02/24/25 07:38 BP 151/69 H 02/24/25 07:10 Pulse Ox 97 02/24/25 07:10 O2 Del Method Room Air 02/24/25 07:10 O2 Flow Rate 1 02/21/25 11:11 Oxygen Flow Rate 2 02/20/25 01:05 BMI result Body Mass Index 24.7 Const: Other: General: AO X 3, no acute distress Resp: CTA bilateral CVS: S1,S2,RRR GI: +BS, NT, no distention Skin: see pic 02/24 Neuro: motor grossly intact Psych: appropriate affect Objective Data Active Medications Acetaminophen (Acetaminophen 325 Mg Tablet) 975 mg PO Q6H PRN PRN Reason: Pain, Mild 1-3,fever,headache Albuterol/Ipratropium (Albuterol/Iprat 2.5/0.5mg 3 Ml Ampul.Neb) 3 ml INHALE Q4H PRN PRN Reason: Shortness of Breath/Wheezing Amlodipine Besylate (Amlodipine Besylate 10 Mg Tablet) 10 mg PO DAILY [facility]; Protocol Last Admin: 02/24/25 09:08 Dose: 10 mg Documented By: GWENDOLYN Aspirin (Aspirin 81 Mg Tab.Chew) 81 mg PO DAILY [facility] Last Admin: 02/24/25 09:09 Dose: 81 mg Documented By: GWENDOLYN Atorvastatin Calcium (Atorvastatin Calcium 80 Mg Tablet) 80 mg PO DAILY [facility] Last Admin: 02/24/25 09:09 Dose: 80 mg Documented By: GWENDOLYN Calcium Carbonate (Calcium Carbonate 750 Mg Tab.Chew) 750 mg PO Q4H PRN PRN Reason: Heartburn Cefazolin Sodium (Cefazolin Sodium 1 Gm Vial) 1 gm IVPUSH Q24H [facility] Dextrose (Dextrose 50 % 25 Gm/50 Ml Syringe) 25 gm IVPUSH Q15M PRN; Protocol PRN Reason: per Hypoglycemia Standing Ord. Finasteride (Finasteride 5 Mg Tablet) 5 mg PO DAILY [facility] Last Admin: 02/24/25 09:09 Dose: 5 mg Documented By: GWENDOLYN Furosemide (Furosemide 40 Mg Tablet) 40 mg PO BID@0900,1800 [facility]; Protocol Last Admin: 02/24/25 09:09 Dose: 40 mg Documented By: GWENDOLYN Glucose (Glucose Gel 15 Gm Gel..Gram.) 15 gm PO Q15M PRN; Protocol PRN Reason: per Hypoglycemia Standing Ord. Heparin Sodium (Porcine) (Heparin Sodium,Porcine 5,000 Unit/Ml Vial) 5,000 unit SUBCUT Q12H [facility] Last Admin: 02/24/25 09:08 Dose: 5,000 unit Documented By: GWENDLOYN Hydralazine HCl (Hydralazine Hcl 50 Mg Tablet) 50 mg PO TID [facility]; Protocol Last Admin: 02/24/25 09:09 Dose: 50 mg Documented By: GWENDOLYN Vancomycin HCl 500 mg/ Sodium (Chloride) 110 mls @ 110 mls/hr IV ONCE ONE Stop: 02/21/25 08:59 Insulin Human Lispro (Insulin Lispro 100 Unit/Ml 3 Ml Vial) 0 unit SUBCUT QIDACHS [facility]; Protocol Last Admin: 02/24/25 09:10 Dose: Not Given Documented By: GWENDOLYN Non-Admin Reason: No Insulin Coverage Isosorbide Mononitrate (Isosorbide Mononitrate 30 Mg Tab.Er.24h) 30 mg PO DAILY [facility]; Protocol Last Admin: 02/24/25 09:08 Dose: 30 mg Documented By: GWENDOLYN Magnesium Hydroxide (Milk Of Magnesia 30 Ml Oral.Susp) 30 ml PO DAILY PRN PRN Reason: Constipation Melatonin (Melatonin 3 Mg Tablet) 6 mg PO BEDTIME PRN PRN Reason: Insomnia Metoprolol Succinate (Metoprolol Succinate Er 100 Mg Tab.Er.24h) 100 mg PO DAILY [facility]; Protocol Last Admin: 02/24/25 09:08 Dose: 100 mg Documented By: GWENDOLYN Ondansetron HCl (Ondansetron Hcl 4 Mg/2 Ml Vial) 4 mg IVPUSH Q8H PRN PRN Reason: Nausea and Vomiting Oxycodone HCl (Oxycodone Hcl Immed Release 5 Mg Tablet) 5 mg PO Q4H PRN PRN Reason: Pain, Severe (Pain Scale 7-10) Last Admin: 02/24/25 09:16 Dose: 5 mg Documented By: GWENDOLYN Pharmacy Consult (Consult Rx Vancomycin Dosing) 1 each MISCELLANE DAILY PRN PRN Reason: Consult order Sodium Bicarbonate (Sodium Bicarbonate 650 Mg Tablet) 650 mg PO TID [facility] Last Admin: 02/24/25 09:09 Dose: 650 mg Documented By: GWENDOLYN Sodium Chloride (0.9 % Sodium Chloride Flush 3 Ml Syringe) 3 ml IVFLUSH QSHIFT [facility] Last Admin: 02/24/25 09:09 Dose: 3 ml Documented By: GWENDOLYN Tamsulosin HCl (Tamsulosin Hcl 0.4 Mg Capsule) 0.4 mg PO DAILY [facility] Last Admin: 02/24/25 09:08 Dose: 0.4 mg Documented By: GWENDOLYN Tiotropium [place] (Tiotropium [place] 2.5 Mcg 1 Puff/2.5 Mcg Mist.Inhal) 2 puff INHALE RDAILY [facility] Last Admin: 02/24/25 07:37 Dose: 2 puff Documented By: ELLIS Vitamin D (Cholecalciferol (Vitamin D3) 25 Mcg Tablet) 25 mcg PO DAILY [facility] Last Admin: 02/24/25 09:09 Dose: 25 mcg Documented By: GWENDOLYN Labs 02/22/25 08:27 02/24/25 09:05 Labs: Laboratory Results - last 24 hr 02/23/25 02/23/25 02/23/25 08:09 11:03 15:55 Anion Gap 21 H Estim Creat Clear Calc 9.4 Estimated GFR 6 POC Glucose 121 H 115 Random Glucose 109 Calcium 7.8 L Random Vancomycin 02/23/25 02/24/25 02/24/25 20:39 07:30 09:05 Anion Gap 21 H Estim Creat Clear Calc 9.0 Estimated GFR POC Glucose 130 H 97 Random Glucose Calcium Random Vancomycin 02/24/25 02/24/25 09:05 09:05 Anion Gap Estim Creat Clear Calc 9.1 Estimated GFR 6 6 POC Glucose Random Glucose 105 Calcium 8.0 L Random Vancomycin 18.4 Microbiology Microbiology Results: Microbiology 02/21/25 11:58 Blood Culture - Preliminary Blood - Venous No growth after 48 hours. 02/21/25 11:58 Blood Culture - Final Blood - Venous Methicillin Res Staph Aureus Assessment and Plan (1) Staphylococcus aureus bacteremia: Status: Acute (2) CKD (chronic kidney disease) stage 4, GFR 15-29 ml/min: Status: Acute (3) Acute kidney injury superimposed on CKD: Status: Acute (4) Sepsis: Status: Acute Plan 64 year male with a past medical history significant for stage I COPD, chronic respiratory failure on O2, WENDY, s/p right BKA, HTN, a AFib on Xarelto, type 2 diabetes, just recently s/p left great toe amputation 3 weeks ago on February 03 at [facility] by Dr. Gomez, here with infection at amputation site and found to have new AFIB with RVR, Heart failure Sepsis secondary to acute osteomyelitis/septic arthritis L foot, lytic changes at the area suggestive of OM, temp of 101, and wbc 14 continue iv vanco, zosyn started 02/20..Stopped Zosyn on 02/21, added kefzol for synerg on 02/21 cultures positive for MRSA ID following echo no vegetations repeat blood culture 02/21 1/2 +, repeat blood cultures 02/23 pending vascular consult Acute on chronic hypoxic respiratory failure Hayden to new onset CHF, cardiorenal syndorome IV Lasix to PO lasix echo EF 40 to 45% cardiology consultation. New onset AFib with RVR, resolved presently in sinus continue home metoprolol hold anticoagulation d/t anemia and will reassess in near future Metabolic acidosis d/t renal failure, better bicab replacement UMAIR on CKD creatinine 7.3 from 2.83 2 months ago, but 5.3 on [place] 03 [place] [facility] [place] now stable at 7.5 to 8, no oligouria Nephrology following, further testing in progress may ultimately need [employer] Stage I COPD, no acute exacerbation, no acute exacerbatiobn, given steroid in ED, no indication for further steroid bronchodilators PRN Anemia secondary to CKD, Hgb 9, stable dropped todaym, monitor, stop eliquis HTN,continue norvasc, hydralzine, metoprolo Type 2 diabetes, A1C 6.6 sliding scale insulin diabetic diet Full code VTE prophylaxis: Heparin, Quality Stroke Does the patient have a stroke diagnosis?: No VTE Prior VTE?: No VTE Risk Level:: Medical - moderate - high VTE Device Contraindication: Treatment Not Indicated VTE Drug Contraindication: N/A - Med Ordered
--- NOTE | 2025-02-24 10:44 | MHC.CM.PN ---
Per rounds, pt. requiring ongoing care for sepsis secondary to osteomyelitis. DCP will be home with [facility] and [facility] care [place]. Referrals have been updated.
[2025-02-24 11:05] LABS: Glucose, Whole Blood 124 mg/dL (60-115)
--- NOTE | 2025-02-24 12:15 | P.CONGS_ITS ---
History of Present Illness Consult details Consult date: 02/24/25 Reason for consult: wound care Narrative: 64-year-old gentleman status post left great toe amputation a proximally 3 weeks ago done at [facility] by Dr. Gomez comes in to the emergency room on 02/20 with nonhealing left great toe amputation site. Of note he does have a prior history of right BKA. He is being maintained on Xarelto for AFib. His toe amputation site was extremely swollen and warm to touch. He was subsequently admitted and foot x-ray was concerning for underlying osteomyelitis along with septic arthritis. Was seen by infectious disease and they recommend vancomycin and daptomycin for 6 weeks. He now presents for vascular evaluation Review of Systems 2 Review of Systems: Yes all other systems are reviewed and are negative Constitutional: Constitutional: Reports no additional constitutional complaints ENT: Reports Normal hearing present Cardiovascular: Cardiovascular: Denies chest pain, Denies chest pain at rest, Denies chest pain with activity and Denies pedal edema Respiratory: Respiratory: Denies cough Gastrointestinal: Gastrointestinal: Denies abdominal pain Musculoskeletal: Musculoskeletal: Denies abnormal gait, Denies muscle cramps and Denies radiating pain into limb Integumentary/Breasts: Skin/Breast: Denies skin ulcer and Denies wounds Neurologic: Reports Normal hearing present and Denies abnormal gait Psychiatric: Psychiatric: Reports no additional psychiatric complaints PMFSH Past Medical History Medical History Urinary urgency Urinary tract infection Urinary hesitancy Tubular adenoma of colon Smoker Seborrheic keratoses SND (sensorineural deafness) Right BKA infection Peripheral vascular disease WENDY (obstructive sleep apnea) Microalbuminuria Lung nodule seen on imaging study Lightheadedness Latent tuberculosis LVH (left ventricular hypertrophy) Abnormal PFTs Hyponatremia Hypertensive retinopathy of both eyes Hyperkalemia Hepatitis C Hearing loss of both ears Hypertension Erectile dysfunction Cataract CKD (chronic kidney disease) Bladder wall thickening BPH (benign prostatic hyperplasia) Anticoagulated Anemia Peripheral neuropathy Diabetes mellitus, type II CVA (cerebral vascular accident) Adrenal nodule Kidney cysts Family History Family History Brother Diabetes Mother Diabetes Father Diabetes Family history: reviewed and not pertinent Surgical History Surgical History Hx of right BKA Social History Social History Household Members: Spouse Housing: Apartment Do you presently have visiting nurse or other home services: Yes Alcohol intake: never Patient Tobacco Use Status: Never used Tobacco service: No Meds Allergies Allergy/AdvReac Type Severity Reaction Status Date / Time morphine Allergy Hallucinati Verified 02/20/25 01:11 ons bupropion AdvReac Hallucinati Verified 02/20/25 01:11 ons Active Medications: Current Medications Acetaminophen (Acetaminophen 325 Mg Tablet) 975 mg PO Q6H PRN PRN Reason: Pain, Mild 1-3,fever,headache Albuterol/Ipratropium (Albuterol/Iprat 2.5/0.5mg 3 Ml Ampul.Neb) 3 ml INHALE Q4H PRN PRN Reason: Shortness of Breath/Wheezing Amlodipine Besylate (Amlodipine Besylate 10 Mg Tablet) 10 mg PO DAILY [facility]; Protocol Last Admin: 02/24/25 09:08 Dose: 10 mg Aspirin (Aspirin 81 Mg Tab.Chew) 81 mg PO DAILY [facility] Last Admin: 02/24/25 09:09 Dose: 81 mg Atorvastatin Calcium (Atorvastatin Calcium 80 Mg Tablet) 80 mg PO DAILY [facility] Last Admin: 02/24/25 09:09 Dose: 80 mg Calcium Carbonate (Calcium Carbonate 750 Mg Tab.Chew) 750 mg PO Q4H PRN PRN Reason: Heartburn Cefazolin Sodium (Cefazolin Sodium 1 Gm Vial) 1 gm IVPUSH Q24H ELIZA Dextrose (Dextrose 50 % 25 Gm/50 Ml Syringe) 25 gm IVPUSH Q15M PRN; Protocol PRN Reason: per Hypoglycemia Standing Ord. Finasteride (Finasteride 5 Mg Tablet) 5 mg PO DAILY [facility] Last Admin: 02/24/25 09:09 Dose: 5 mg Furosemide (Furosemide 40 Mg Tablet) 40 mg PO BID@0900,1800 [facility]; Protocol Last Admin: 02/24/25 09:09 Dose: 40 mg Glucose (Glucose Gel 15 Gm Gel..Gram.) 15 gm PO Q15M PRN; Protocol PRN Reason: per Hypoglycemia Standing Ord. Heparin Sodium (Porcine) (Heparin Sodium,Porcine 5,000 Unit/Ml Vial) 5,000 unit SUBCUT Q12H [facility] Last Admin: 02/24/25 09:08 Dose: 5,000 unit Hydralazine HCl (Hydralazine Hcl 50 Mg Tablet) 50 mg PO TID [facility]; Protocol Last Admin: 02/24/25 09:09 Dose: 50 mg Vancomycin HCl 500 mg/ Sodium (Chloride) 110 mls @ 110 mls/hr IV ONCE ONE Stop: 02/21/25 08:59 Insulin Human Lispro (Insulin Lispro 100 Unit/Ml 3 Ml Vial) 0 unit SUBCUT QIDACHS [facility]; Protocol Last Admin: 02/24/25 09:10 Dose: Not Given Isosorbide Mononitrate (Isosorbide Mononitrate 30 Mg Tab.Er.24h) 30 mg PO DAILY [facility]; Protocol Last Admin: 02/24/25 09:08 Dose: 30 mg Magnesium Hydroxide (Milk Of Magnesia 30 Ml Oral.Susp) 30 ml PO DAILY PRN PRN Reason: Constipation Melatonin (Melatonin 3 Mg Tablet) 6 mg PO BEDTIME PRN PRN Reason: Insomnia Metoprolol Succinate (Metoprolol Succinate Er 100 Mg Tab.Er.24h) 100 mg PO DAILY [facility]; Protocol Last Admin: 02/24/25 09:08 Dose: 100 mg Ondansetron HCl (Ondansetron Hcl 4 Mg/2 Ml Vial) 4 mg IVPUSH Q8H PRN PRN Reason: Nausea and Vomiting Oxycodone HCl (Oxycodone Hcl Immed Release 5 Mg Tablet) 5 mg PO Q4H PRN PRN Reason: Pain, Severe (Pain Scale 7-10) Last Admin: 02/24/25 09:16 Dose: 5 mg Pharmacy Consult (Consult Rx Vancomycin Dosing) 1 each MISCELLANE DAILY PRN PRN Reason: Consult order Sodium Bicarbonate (Sodium Bicarbonate 650 Mg Tablet) 650 mg PO TID [facility] Last Admin: 02/24/25 09:09 Dose: 650 mg Sodium Chloride (0.9 % Sodium Chloride Flush 3 Ml Syringe) [address] [facility] Last Admin: 02/24/25 09:09 Dose: 3 ml Tamsulosin HCl (Tamsulosin Hcl 0.4 Mg Capsule) 0.4 mg PO DAILY [facility] Last Admin: 02/24/25 09:08 Dose: 0.4 mg Tiotropium [place] (Tiotropium [place] 2.5 Mcg 1 Puff/2.5 Mcg Mist.Inhal) 2 puff INHALE RDAILY [facility] Last Admin: 02/24/25 07:37 Dose: 2 puff Vitamin D (Cholecalciferol (Vitamin D3) 25 Mcg Tablet) 25 mcg PO DAILY [facility] Last Admin: 02/24/25 09:09 Dose: 25 mcg Home Medications ?Medication ?Instructions ?Recorded ?Confirmed ?Last Taken ?Type amlodipine 10 mg tablet 10 mg PO DAILY 12/19/24 02/20/25 02/19/25 09:00 History aspirin 81 mg chewable tablet 1 tab PO DAILY 12/19/24 02/20/25 02/19/25 09:00 History atorvastatin 80 mg tablet 80 mg PO DAILY 12/19/24 02/20/25 02/19/25 09:00 History dapagliflozin propanediol 10 mg 10 mg PO DAILY 12/19/24 02/20/25 02/19/25 09:00 History tablet (Farxiga) finasteride 5 mg tablet 5 mg PO DAILY 12/19/24 02/20/25 02/19/25 09:00 History metoprolol succinate 100 mg 100 mg PO DAILY 12/19/24 02/20/25 02/19/25 09:00 History tablet,extended release 24 hr sodium zirconium cyclosilicate 10 10 g PO DAILY 12/19/24 02/20/25 02/19/25 09:00 History gram oral powder packet (Lokelma) tamsulosin 0.4 mg capsule 0.4 mg PO DAILY 12/19/24 02/20/25 02/19/25 09:00 History umeclidinium 62.5 mcg/actuation 1 inh inhalation DAILY 12/19/24 02/20/25 02/19/25 09:00 History blister powder for inhalation (Incruse Ellipta) hydralazine 25 mg tablet 50 mg PO TID 12/30/24 02/20/25 02/19/25 09:00 History rivaroxaban 2.5 mg tablet (Xarelto) 2.5 mg PO BID 12/30/24 02/20/25 02/19/25 History sodium bicarbonate 650 mg tablet 650 mg PO TID 12/30/24 02/20/25 02/19/25 09:00 History Physical Exam 2 Vital Signs: Vital Signs: Last Vital Signs Temp 98.6 F 02/24/25 11:36 Pulse 69 02/24/25 11:36 Resp 17 02/24/25 11:36 BP 123/60 02/24/25 11:36 Pulse Ox 96 02/24/25 11:36 O2 Del Method Room Air 02/24/25 11:36 O2 Flow Rate 1 02/21/25 11:11 Oxygen Flow Rate 2 02/20/25 01:05 BMI result Body Mass Index 24.7 Const: General: cooperative, healthy appearing and comfortable O rientation/consciousness: oriented to person, oriented to place and oriented to time HEENT: Head: Yes normal to inspection Neck: Neck: Yes normal visual inspection Carotids: no bruits Chest: Chest palpation & inspection: normal inspection of the chest Resp: Effort & Inspection: normal respiratory effort and able to speak in complete sentences Auscultation: clear to auscultation bilaterally, no crackles, no rales, no rhonchi and no wheezes Cardio: Other: Left leg DP and PT signals Rate: regular rate Rhythm: regular rhythm Heart sounds: S1 normal heart sound present and S2 normal heart sound present Bruits: no carotid bruits Peripheral pulses: Peripheral pulses 2+ throughout GI: Inspection: Yes normal to inspection Skin: Other: Left great toe amputation site + 1 edema erythema site receding from the previous marked line from 02/20. Coagulated blood at incision line. Wounds: no wounds Hair: normal Neuro: General: oriented to person, oriented to place and oriented to time Cranial nerves: Yes CN's II-XII intact bilaterally and Yes Normal hearing present Cognition (Neuro): normal cognition Motor exam (neuro): 5/5 motor strength present throughout Extrem: Other: venous exam: No significant superficial varicosities or spider telangiectasias, minimal edema General: No clubbing, No cyanosis and No edema Psych: Appearance: grossly normal Mental Status: mental status grossly normal Speech and movement: Normal speech and movement present Results Labs 02/22/25 08:27 02/24/25 09:05 Labs: Abnormal lab results 02/23/25 02/24/25 02/24/25 Range/Units 20:39 09:05 09:05 Carbon Dioxide 18 L (22-29) mmol/L Anion Gap 21 H (12-20) BUN 101 H (9-16) mg/dL Creatinine 8.89 H* 8.87 H* (0.5-1.4) mg/dL POC Glucose 130 H (60-115) mg/dL Calcium 8.0 L (8.4-10.2) mg/dL 02/24/25 Range/Units 11:01 Carbon Dioxide (22-29) mmol/L Anion Gap (12-20) BUN (9-16) mg/dL Creatinine (0.5-1.4) mg/dL POC Glucose 124 H (60-115) mg/dL Calcium (8.4-10.2) mg/dL BMP 02/24/25 02/24/25 09:05 09:05 Sodium 139 Potassium 3.8 Chloride 104 Carbon Dioxide 18 L BUN 101 H Creatinine 8.89 H* 8.87 H* Calcium 8.0 L Urine 02/20/25 Range/Units 14:51 Urine Color Yellow Urine Appearance Clear Urine pH 6.0 (5.0-9.0) Ur Specific [place] 1.015 (1.005-1.025) Urine Protein >=1000 (4+) H (Neg-Trace) mg/dL Urine Glucose (UA) 500 H (Negative) mg/dL All other labs normal. Assessment and Plan (1) Amputation of left great toe: Status: Acute Plan In short the left great toe amputation site does look stable. I did clean it up and there was just overlying dry coagulated blood. I do agree with 6 weeks of IV antibiotics. Would not recommend any intervention at the current time. Stable from my perspective. Can follow-up as an outpatient with [facility] under Dr. Gomez. Thank you for allowing us to assist in his care. If there are any questions or concerns please do not hesitate to contact us. Procedures Date of Service Date of Service: 02/24/25
[2025-02-24 16:42] LABS: Glucose, Whole Blood 120 mg/dL (60-115)
[2025-02-24 21:04] LABS: Glucose, Whole Blood 113 mg/dL (60-115)
[2025-02-24] MEDS: Melatonin 3 MG TABLET 6 MG PO (21:12)
--- NOTE | 2025-02-25 01:24 | PC.NURSE ---
Pt bladder scan of 675mls. Patient immediately stated he will not allow a straight cath. States he just needs time to pee everything out. Has been intermittently voiding between 00-300mls every few hours. MD Mc notified and aware.
[2025-02-25 04:00] VITALS: BP 148/65; PULSE 67; RESP 16; TEMP 36.9; O2SAT 98
[2025-02-25] MEDS: ceFAZolin Sodium 1 GM VIAL IVPUSH (05:55)
[2025-02-25 07:41] LABS: Vancomycin Random 16.2 mcg/mL (15-20)
[2025-02-25 07:51] LABS: Creatinine Clr Calc Pharmacy 8.7; Estimated Glomerular Filt Rate 6
[2025-02-25 08:00] VITALS: BP 142/63; PULSE 68; RESP 18; TEMP 37; O2SAT 100
[2025-02-25 08:01] LABS: Glucose, Whole Blood 84 mg/dL (60-115)
[2025-02-25 08:33] LABS: Anion Gap 22 (12-20); Carbon Dioxide 18 mmol/L (22-29); Chloride 104 mmol/L (96-108); Potassium 3.7 mmol/L (3.3-5.1); Sodium 140 mmol/L (135-145)
[2025-02-25] MEDS: Metoprolol Succinate ER 100 MG TAB.ER.24H PO (09:47)
[2025-02-25] MEDS: Aspirin 81 MG TAB.CHEW PO (09:47)
[2025-02-25] MEDS: Heparin Sodium,Porcine 5,000 UNIT/ML VIAL 5000 UNIT SUBCUT ×2 (09:47→21:21)
[2025-02-25] MEDS: hydrALAZINE HCl 50 MG TABLET PO ×3 (09:48→21:21)
[2025-02-25] MEDS: Atorvastatin Calcium 80 MG TABLET PO (09:48)
[2025-02-25] MEDS: Tamsulosin HCL 0.4 MG CAPSULE PO (09:48)
[2025-02-25] MEDS: amLODIPine Besylate 10 MG TABLET PO (09:48)
[2025-02-25] MEDS: Cholecalciferol (Vitamin D3) 25 MCG TABLET PO (09:48)
[2025-02-25] MEDS: Isosorbide Mononitrate 30 MG TAB.ER.24H PO (09:48)
[2025-02-25] MEDS: Sodium Bicarbonate 650 MG TABLET PO ×3 (09:48→21:22)
[2025-02-25] MEDS: Finasteride 5 MG TABLET PO (09:48)
[2025-02-25] MEDS: 0.9 % Sodium Chloride Flush 3 ML SYRINGE IVFLUSH ×2 (09:49→17:24)
[2025-02-25 11:19] VITALS: BP 115/58; PULSE 58; RESP 16; TEMP 36.7; O2SAT 96
--- NOTE | 2025-02-25 11:31 | HO.PM.IMPN ---
Subjective Subjective Date of Service: 02/25/25 Interval History: blood cultures positive for staph aur, probably MRS WBC down, no confusion, repeat blood culture from 02/21 1 positiv at 48 hrs 02/23 culture negative at 24 hrs Creatine is trending up to 9 now but no oligouria and no uremic symptoms Physical Exam Vital Signs: Vital Signs: Last Vital Signs Temp 98.1 F 02/25/25 11:19 Pulse 58 02/25/25 11:19 Resp 16 02/25/25 11:19 BP 115/58 L 02/25/25 11:19 Pulse Ox 96 02/25/25 11:19 O2 Del Method Room Air 02/25/25 11:19 O2 Flow Rate 1 02/21/25 11:11 Oxygen Flow Rate 2 02/20/25 01:05 BMI result Body Mass Index 24.7 Const: Other: General: AO X 3, no acute distress Resp: CTA bilateral CVS: S1,S2,RRR GI: +BS, NT, no distention Skin: see pic 02/24 Neuro: motor grossly intact Psych: appropriate affect Objective Data Active Medications Acetaminophen (Acetaminophen 325 Mg Tablet) 975 mg PO Q6H PRN PRN Reason: Pain, Mild 1-3,fever,headache Albuterol/Ipratropium (Albuterol/Iprat 2.5/0.5mg 3 Ml Ampul.Neb) 3 ml INHALE Q4H PRN PRN Reason: Shortness of Breath/Wheezing Amlodipine Besylate (Amlodipine Besylate 10 Mg Tablet) 10 mg PO DAILY [facility]; Protocol Last Admin: 02/25/25 09:48 Dose: 10 mg Documented By: GWENDOLYN Aspirin (Aspirin 81 Mg Tab.Chew) 81 mg PO DAILY [facility] Last Admin: 02/25/25 09:47 Dose: 81 mg Documented By: GWENDOLYN Atorvastatin Calcium (Atorvastatin Calcium 80 Mg Tablet) 80 mg PO DAILY [facility] Last Admin: 02/25/25 09:48 Dose: 80 mg Documented By: GWENDOLYN Calcium Carbonate (Calcium Carbonate 750 Mg Tab.Chew) 750 mg PO Q4H PRN PRN Reason: Heartburn Cefazolin Sodium (Cefazolin Sodium 1 Gm Vial) 1 gm IVPUSH Q24H [facility] Last Admin: 02/25/25 05:55 Dose: 1 gm Documented By: HEATHER Dextrose (Dextrose 50 % 25 Gm/50 Ml Syringe) 25 gm IVPUSH Q15M PRN; Protocol PRN Reason: per Hypoglycemia Standing Ord. Finasteride (Finasteride 5 Mg Tablet) 5 mg PO DAILY [facility] Last Admin: 02/25/25 09:48 Dose: 5 mg Documented By: GWENDOLYN Glucose (Glucose Gel 15 Gm Gel..Gram.) 15 gm PO Q15M PRN; Protocol PRN Reason: per Hypoglycemia Standing Ord. Heparin Sodium (Porcine) (Heparin Sodium,Porcine 5,000 Unit/Ml Vial) 5,000 unit SUBCUT Q12H [facility] Last Admin: 02/25/25 09:47 Dose: 5,000 unit Documented By: GWENDOLYN Hydralazine HCl (Hydralazine Hcl 50 Mg Tablet) 50 mg PO TID [facility]; Protocol Last Admin: 02/25/25 09:48 Dose: 50 mg Documented By: GWENDOLYN Vancomycin HCl 500 mg/ Sodium (Chloride) 110 mls @ 110 mls/hr IV ONCE ONE Stop: 02/21/25 08:59 Insulin Human Lispro (Insulin Lispro 100 Unit/Ml 3 Ml Vial) 0 unit SUBCUT QIDACHS [facility]; Protocol Last Admin: 02/25/25 09:49 Dose: Not Given Documented By: GWENDOLYN Non-Admin Reason: No Insulin Coverage Isosorbide Mononitrate (Isosorbide Mononitrate 30 Mg Tab.Er.24h) 30 mg PO DAILY [facility]; Protocol Last Admin: 02/25/25 09:48 Dose: 30 mg Documented By: GWENDOLYN Magnesium Hydroxide (Milk Of Magnesia 30 Ml Oral.Susp) 30 ml PO DAILY PRN PRN Reason: Constipation Melatonin (Melatonin 3 Mg Tablet) 6 mg PO BEDTIME PRN PRN Reason: Insomnia Last Admin: 02/24/25 21:12 Dose: 6 mg Documented By: CHASE Metoprolol Succinate (Metoprolol Succinate Er 100 Mg Tab.Er.24h) 100 mg PO DAILY [facility]; Protocol Last Admin: 02/25/25 09:47 Dose: 100 mg Documented By: GWENDOLYN Ondansetron HCl (Ondansetron Hcl 4 Mg/2 Ml Vial) 4 mg IVPUSH Q8H PRN PRN Reason: Nausea and Vomiting Oxycodone HCl (Oxycodone Hcl Immed Release 5 Mg Tablet) 5 mg PO Q4H PRN PRN Reason: Pain, Severe (Pain Scale 7-10) Last Admin: 02/24/25 21:13 Dose: 5 mg Documented By: CHASE Pharmacy Consult (Consult Rx Vancomycin Dosing) 1 each MISCELLANE DAILY PRN PRN Reason: Consult order Sodium Bicarbonate (Sodium Bicarbonate 650 Mg Tablet) 650 mg PO TID [facility] Last Admin: 02/25/25 09:48 Dose: 650 mg Documented By: GWENDOLYN Sodium Chloride (0.9 % Sodium Chloride Flush 3 Ml Syringe) 3 ml IVFLUSH QSHIFT [facility] Last Admin: 02/25/25 09:49 Dose: 3 ml Documented By: GWENDOLYN Tamsulosin HCl (Tamsulosin Hcl 0.4 Mg Capsule) 0.4 mg PO DAILY [facility] Last Admin: 02/25/25 09:48 Dose: 0.4 mg Documented By: GWENDOLYN Tiotropium [place] (Tiotropium [place] 2.5 Mcg 1 Puff/2.5 Mcg Mist.Inhal) 2 puff INHALE RDAILY [facility] Last Admin: 02/25/25 07:43 Dose: Not Given Documented By: YOUNG Non-Admin Reason: Patient Asleep Vitamin D (Cholecalciferol (Vitamin D3) 25 Mcg Tablet) 25 mcg PO DAILY [facility] Last Admin: 02/25/25 09:48 Dose: 25 mcg Documented By: GWENDOLYN Labs 02/22/25 08:27 02/25/25 06:21 Labs: Laboratory Results - last 24 hr 02/24/25 02/24/25 02/25/25 16:37 21:00 06:21 Hold Purple Top SEE NOTE Anion Gap 22 H Estim Creat Clear Calc 8.7 Estimated GFR 6 POC Glucose 120 H 113 Random Vancomycin 16.2 02/25/25 07:58 Hold Purple Top Anion Gap Estim Creat Clear Calc Estimated GFR POC Glucose 84 Random Vancomycin Microbiology Microbiology Results: Microbiology 02/23/25 12:03 Blood Culture - Preliminary Blood - Venous No growth after 24 hours. 02/23/25 12:03 Blood Culture - Preliminary Blood - Venous No growth after 24 hours. Assessment and Plan (1) Staphylococcus aureus bacteremia: Status: Acute (2) CKD (chronic kidney disease) stage 4, GFR 15-29 ml/min: Status: Acute (3) Acute kidney injury superimposed on CKD: Status: Acute (4) Sepsis: Status: Acute Plan 64 year male with a past medical history significant for stage I COPD, chronic respiratory failure on O2, WENDY, s/p right BKA, HTN, a AFib on Xarelto, type 2 diabetes, just recently s/p left great toe amputation 3 weeks ago on February 03 at [facility] by Dr. Gomez, here with infection at amputation site and found to have new AFIB with RVR, Heart failure Sepsis secondary to acute osteomyelitis/septic arthritis L foot, lytic changes at the area suggestive of OM, temp of 101, and wbc 14 continue iv vanco, zosyn started 02/20..Stopped Zosyn on 02/21, added kefzol for synerg on 02/21 cultures positive for MRSA ID following echo no vegetations repeat blood culture 02/21 1/2 +, repeat blood cultures 02/23 negative at 24 hrs vascular consult Acute on chronic hypoxic respiratory failure, new onset CHF, cardiorenal syndorome Was on IV Lasix and changed to PO and now stopped d/t rising Creatine echo EF 40 to 45% cardiology following New onset AFib with RVR, resolved presently in sinus continue home metoprolol hold anticoagulation d/t anemia and will reassess in near future Metabolic acidosis d/t renal failure, better bicab replacement UMAIR on CKD creatinine 7.3 from 2.83 2 months ago, but 5.3 on february 03 at [facility] [place]--Cr now stable at 7.5 to 8, no oligouria Nephrology following, further testing in progress may ultimately need WAIST FITTER, stopping Lasix for now Stage I COPD, no acute exacerbation, no acute exacerbatiobn, given steroid in ED, no indication for further steroid bronchodilators PRN Anemia secondary to CKD, Hgb 9, stable dropped todaym, monitor, stop eliquis HTN,continue norvasc, hydralzine, metoprolo Type 2 diabetes, A1C 6.6 sliding scale insulin diabetic diet Full code VTE prophylaxis: Heparin, Quality Stroke Does the patient have a stroke diagnosis?: No VTE Prior VTE?: No VTE Risk Level:: Medical - moderate - high VTE Device Contraindication: Treatment Not Indicated VTE Drug Contraindication: N/A - Med Ordered
[2025-02-25 11:34] LABS: Glucose, Whole Blood 104 mg/dL (60-115)
[2025-02-25 11:39] LABS: MANUAL DIFF FLAG NO
[2025-02-25 11:42] LABS: Basophils Absolute Auto 0.1 X10*3/uL (0.0-0.2); Basophils Percent Auto 0.9 % (0-2); Eosinophils Absolute Auto 0.4 X10*3/uL (0.0-0.4); Eosinophils Percent Auto 4.7 % (0-4); Hematocrit 22.6 % (42.0-52.0); Hemoglobin 7.4 g/dl (14.0-18.0); Imm Gran Pct Auto 1.1 % (0.0-0.4); Lymphocytes Absolute Auto 1.4 X10*3/uL (1.2-4.9); Lymphocytes Percent Auto 16.3 % (20-40); Mean Corpuscular HGB Conc 32.7 g/dl (31.0-36.0); Mean Corpuscular Hemoglobin 29.2 pg (27.0-33.0); Mean Corpuscular Volume 89.3 fL (80.0-98.0); Mean Platelet Volume 10.4 fL (9.4-12.4); Monocytes Absolute Auto 0.7 X10*3/uL (0.1-1.2); Monocytes Percent Auto 7.7 % (2-11); Neutrophils Absolute Auto 6.1 x10*3/uL (2.0-8.3); Neutrophils Percent Auto 69.3 % (45-73); Platelet Count 292 X10*3/uL (160-400); Red Blood Count 2.53 X10*6/uL (4.60-5.80); Red Cell Distribution Width 14.2 % (11.0-16.0); White Blood Count 8.8 X10*3/uL (4.8-10.8)
[2025-02-25] MEDS: oxyCODONE HCl Immed Release 5 MG TABLET PO ×2 (11:51→21:22)
[2025-02-25 15:07] VITALS: BP 149/67; PULSE 72; RESP 20; TEMP 37; O2SAT 94
[2025-02-25 16:38] LABS: Glucose, Whole Blood 180 mg/dL (60-115)
[2025-02-25] MEDS: Insulin Lispro 100 UNIT/ML 3 ML VIAL SUBCUT ×2 (17:23→21:21)
[2025-02-25 19:41] VITALS: BP 129/63; PULSE 60; RESP 20; TEMP 37.1; O2SAT 95
[2025-02-25 19:54] LABS: Glucose, Whole Blood 200 mg/dL (60-115)
[2025-02-25 21:21] VITALS: BP 122/65
[2025-02-26] VITALS (9 sets, daily range): BP systolic 118–147; BP diastolic 57–65; PULSE 54–66; RESP 16–20; TEMP 36.6–37.2; O2SAT 94–98
[2025-02-26] MEDS: ceFAZolin Sodium 1 GM VIAL IVPUSH (05:53)
[2025-02-26 07:24] LABS: Glucose, Whole Blood 95 mg/dL (60-115)
[2025-02-26] MEDS: Tiotropium Bromide 2.5 mcg 1 PUFF/2.5 MCG MIST.INHAL 2 PUFF INHALE (07:29)
[2025-02-26] MEDS: Sodium Bicarbonate 650 MG TABLET PO ×3 (07:55→20:49)
[2025-02-26] MEDS: hydrALAZINE HCl 50 MG TABLET PO ×3 (07:55→20:49)
[2025-02-26] MEDS: Tamsulosin HCL 0.4 MG CAPSULE PO (07:55)
[2025-02-26] MEDS: Aspirin 81 MG TAB.CHEW PO (07:55)
[2025-02-26 07:56] LABS: MANUAL DIFF FLAG NO
[2025-02-26] MEDS: Isosorbide Mononitrate 30 MG TAB.ER.24H PO (07:56)
[2025-02-26] MEDS: amLODIPine Besylate 10 MG TABLET PO (07:56)
[2025-02-26] MEDS: Cholecalciferol (Vitamin D3) 25 MCG TABLET PO (07:56)
[2025-02-26] MEDS: Finasteride 5 MG TABLET PO (07:56)
[2025-02-26] MEDS: Atorvastatin Calcium 80 MG TABLET PO (07:56)
[2025-02-26] MEDS: Metoprolol Succinate ER 100 MG TAB.ER.24H PO (07:56)
[2025-02-26 07:58] LABS: Basophils Absolute Auto 0.1 X10*3/uL (0.0-0.2); Basophils Percent Auto 0.9 % (0-2); Eosinophils Absolute Auto 0.5 X10*3/uL (0.0-0.4); Hematocrit 22.8 % (42.0-52.0); Hemoglobin 7.6 g/dl (14.0-18.0); Imm Gran Abs Auto 0.14 X10*3/uL (0.00-0.03); Imm Gran Pct Auto 1.4 % (0.0-0.4); Lymphocytes Absolute Auto 1.6 X10*3/uL (1.2-4.9); Lymphocytes Percent Auto 15.5 % (20-40); Mean Corpuscular HGB Conc 33.3 g/dl (31.0-36.0); Mean Corpuscular Hemoglobin 29.2 pg (27.0-33.0); Mean Corpuscular Volume 87.7 fL (80.0-98.0); Mean Platelet Volume 9.9 fL (9.4-12.4); Monocytes Percent Auto 9.5 % (2-11); Neutrophils Absolute Auto 6.9 x10*3/uL (2.0-8.3); Neutrophils Percent Auto 67.7 % (45-73); Platelet Count 304 X10*3/uL (160-400); Red Cell Distribution Width 14.4 % (11.0-16.0); White Blood Count 10.1 X10*3/uL (4.8-10.8)
[2025-02-26] MEDS: oxyCODONE HCl Immed Release 5 MG TABLET PO ×2 (07:58→16:09)
[2025-02-26] MEDS: 0.9 % Sodium Chloride Flush 3 ML SYRINGE IVFLUSH ×3 (08:03→20:56)
[2025-02-26 08:07] LABS: Anion Gap 23 (12-20); Carbon Dioxide 18 mmol/L (22-29); Chloride 103 mmol/L (96-108); Creatinine Clr Calc Pharmacy 8.3; Estimated Glomerular Filt Rate 5; Potassium 3.9 mmol/L (3.3-5.1); Sodium 140 mmol/L (135-145)
[2025-02-26] MEDS: Heparin Sodium,Porcine 5,000 UNIT/ML VIAL 5000 UNIT SUBCUT ×2 (10:19→20:55)
[2025-02-26 10:24] LABS: Vancomycin Random 14.5 mcg/mL (15-20)
[2025-02-26] MEDS: vancomycin HCL 500 MG in 0.9 % Sodium Chloride 100 ML 110 MG IV (11:00)
--- NOTE | 2025-02-26 11:29 | HO.PM.IMPN ---
Subjective Subjective Date of Service: 02/26/25 Interval History: blood cultures positive for staph aur, probably MRS WBC down, no confusion, repeat blood culture from 02/21 1 positiv at 48 hrs 02/23 culture negative at 48 hrs Creatine is plateauded at ~ 9, No uremia Physical Exam Vital Signs: Vital Signs: Last Vital Signs Temp 98.2 F 02/26/25 11:21 Pulse 59 02/26/25 11:21 Resp 20 02/26/25 11:21 BP 124/57 L 02/26/25 11:21 Pulse Ox 97 02/26/25 11:21 O2 Del Method Room Air 02/26/25 11:21 O2 Flow Rate 1 02/21/25 11:11 Oxygen Flow Rate 2 02/20/25 01:05 BMI result Body Mass Index 24.7 Const: Other: General: AO X 3, no acute distress Resp: CTA bilateral CVS: S1,S2,RRR GI: +BS, NT, no distention Skin: see pic 02/24--essentially no change Neuro: motor grossly intact Psych: appropriate affect Objective Data Active Medications Acetaminophen (Acetaminophen 325 Mg Tablet) 975 mg PO Q6H PRN PRN Reason: Pain, Mild 1-3,fever,headache Albuterol/Ipratropium (Albuterol/Iprat 2.5/0.5mg 3 Ml Ampul.Neb) 3 ml INHALE Q4H PRN PRN Reason: Shortness of Breath/Wheezing Amlodipine Besylate (Amlodipine Besylate 10 Mg Tablet) 10 mg PO DAILY [facility]; Protocol Last Admin: 02/26/25 07:56 Dose: 10 mg Documented By: BETSY Aspirin (Aspirin 81 Mg Tab.Chew) 81 mg PO DAILY [facility] Last Admin: 02/26/25 07:55 Dose: 81 mg Documented By: BETSY Atorvastatin Calcium (Atorvastatin Calcium 80 Mg Tablet) 80 mg PO DAILY [facility] Last Admin: 02/26/25 07:56 Dose: 80 mg Documented By: BETSY Calcium Carbonate (Calcium Carbonate 750 Mg Tab.Chew) 750 mg PO Q4H PRN PRN Reason: Heartburn Cefazolin Sodium (Cefazolin Sodium 1 Gm Vial) 1 gm IVPUSH Q24H [facility] Last Admin: 02/26/25 05:53 Dose: 1 gm Documented By: HEATHER Dextrose (Dextrose 50 % 25 Gm/50 Ml Syringe) 25 gm IVPUSH Q15M PRN; Protocol PRN Reason: per Hypoglycemia Standing Ord. Finasteride (Finasteride 5 Mg Tablet) 5 mg PO DAILY [facility] Last Admin: 02/26/25 07:56 Dose: 5 mg Documented By: BETSY Glucose (Glucose Gel 15 Gm Gel..Gram.) 15 gm PO Q15M PRN; Protocol PRN Reason: per Hypoglycemia Standing Ord. Heparin Sodium (Porcine) (Heparin Sodium,Porcine 5,000 Unit/Ml Vial) 5,000 unit SUBCUT Q12H [facility] Last Admin: 02/26/25 10:19 Dose: 5,000 unit Documented By: BETSY Hydralazine HCl (Hydralazine Hcl 50 Mg Tablet) 50 mg PO TID [facility]; Protocol Last Admin: 02/26/25 07:55 Dose: 50 mg Documented By: BETSY Vancomycin HCl 500 mg/ Sodium (Chloride) 110 mls @ 110 mls/hr IV ONCE ONE Stop: 02/21/25 08:59 Insulin Human Lispro (Insulin Lispro 100 Unit/Ml 3 Ml Vial) 0 unit SUBCUT QIDACHS [facility]; Protocol Last Admin: 02/26/25 07:44 Dose: Not Given Documented By: BETSY Non-Admin Reason: No Insulin Coverage Isosorbide Mononitrate (Isosorbide Mononitrate 30 Mg Tab.Er.24h) 30 mg PO DAILY [facility]; Protocol Last Admin: 02/26/25 07:56 Dose: 30 mg Documented By: BETSY Magnesium Hydroxide (Milk Of Magnesia 30 Ml Oral.Susp) 30 ml PO DAILY PRN PRN Reason: Constipation Melatonin (Melatonin 3 Mg Tablet) 6 mg PO BEDTIME PRN PRN Reason: Insomnia Last Admin: 02/24/25 21:12 Dose: 6 mg Documented By: CHASE Metoprolol Succinate (Metoprolol Succinate Er 100 Mg Tab.Er.24h) 100 mg PO DAILY [facility]; Protocol Last Admin: 02/26/25 07:56 Dose: 100 mg Documented By: BETSY Ondansetron HCl (Ondansetron Hcl 4 Mg/2 Ml Vial) 4 mg IVPUSH Q8H PRN PRN Reason: Nausea and Vomiting Oxycodone HCl (Oxycodone Hcl Immed Release 5 Mg Tablet) 5 mg PO Q6H PRN PRN Reason: Pain, Severe (Pain Scale 7-10) Last Admin: 02/26/25 07:58 Dose: 5 mg Documented By: BETSY Pharmacy Consult (Consult Rx Vancomycin Dosing) 1 each MISCELLANE DAILY PRN PRN Reason: Consult order Sodium Bicarbonate (Sodium Bicarbonate 650 Mg Tablet) 650 mg PO TID [facility] Last Admin: 02/26/25 07:55 Dose: 650 mg Documented By: BETSY Sodium Chloride (0.9 % Sodium Chloride Flush 3 Ml Syringe) 3 ml IVFLUSH QSHIFT [facility] Last Admin: 02/26/25 08:03 Dose: 3 ml Documented By: BETSY Tamsulosin HCl (Tamsulosin Hcl 0.4 Mg Capsule) 0.4 mg PO DAILY [facility] Last Admin: 02/26/25 07:55 Dose: 0.4 mg Documented By: BETSY Tiotropium [place] (Tiotropium [place] 2.5 Mcg 1 Puff/2.5 Mcg Mist.Inhal) 2 puff INHALE RDAILY [facility] Last Admin: 02/26/25 07:29 Dose: 2 puff Documented By: YOUNG Vitamin D (Cholecalciferol (Vitamin D3) 25 Mcg Tablet) 25 mcg PO DAILY [facility] Last Admin: 02/26/25 07:56 Dose: 25 mcg Documented By: BETSY Labs 02/26/25 07:04 02/26/25 07:04 Labs: Laboratory Results - last 24 hr 02/25/25 02/25/25 02/25/25 06:21 11:30 16:34 MCV 89.3 MCH 29.2 MCHC 32.7 RDW 14.2 Plt Count 292 MPV 10.4 Immature Gran % (Auto) 1.1 H Neut % (Auto) 69.3 Lymph % (Auto) 16.3 L [place] % (Auto) 7.7 Eos % (Auto) 4.7 H Baso % (Auto) 0.9 Lymph # (Auto) 1.4 [place] # (Auto) 0.7 Eos # (Auto) 0.4 Baso # (Auto) 0.1 Abs Immat Gran (auto) 0.10 H Absolute Neuts (auto) 6.1 Absolute Nucleated RBC 0.000 Nucleated RBC % (auto) 0.0 Hold Purple Top Anion Gap Estim Creat Clear Calc Estimated GFR POC Glucose 104 180 H Random Vancomycin 02/25/25 02/26/25 02/26/25 19:47 07:04 07:20 MCV 87.7 MCH 29.2 MCHC 33.3 RDW 14.4 Plt Count 304 MPV 9.9 Immature Gran % (Auto) 1.4 H Neut % (Auto) 67.7 Lymph % (Auto) 15.5 L [place] % (Auto) 9.5 Eos % (Auto) 5.0 H Baso % (Auto) 0.9 Lymph # (Auto) 1.6 [place] # (Auto) 1.0 Eos # (Auto) 0.5 H Baso # (Auto) 0.1 Abs Immat Gran (auto) 0.14 H Absolute Neuts (auto) 6.9 Absolute Nucleated RBC 0.000 Nucleated RBC % (auto) 0.0 Hold Purple Top SEE NOTE Anion Gap 23 H Estim Creat Clear Calc 8.3 Estimated GFR 5 POC Glucose 200 H 95 Random Vancomycin 02/26/25 09:22 MCV MCH MCHC RDW Plt Count MPV Immature Gran % (Auto) Neut % (Auto) Lymph % (Auto) [place] % (Auto) Eos % (Auto) Baso % (Auto) Lymph # (Auto) [place] # (Auto) Eos # (Auto) Baso # (Auto) Abs Immat Gran (auto) Absolute Neuts (auto) Absolute Nucleated RBC Nucleated RBC % (auto) Hold Purple Top Anion Gap Estim Creat Clear Calc Estimated GFR POC Glucose Random Vancomycin 14.5 L Microbiology Microbiology Results: Microbiology 02/23/25 12:03 Blood Culture - Preliminary Blood - Venous No growth after 48 hours. 02/23/25 12:03 Blood Culture - Preliminary Blood - Venous No growth after 48 hours. Assessment and Plan (1) Staphylococcus aureus bacteremia: Status: Acute (2) CKD (chronic kidney disease) stage 4, GFR 15-29 ml/min: Status: Acute (3) Acute kidney injury superimposed on CKD: Status: Acute (4) Sepsis: Status: Acute Plan 64 year male with a past medical history significant for stage I COPD, chronic respiratory failure on O2, WENDY, s/p right BKA, HTN, a AFib on Xarelto, type 2 diabetes, just recently s/p left great toe amputation 3 weeks ago on February 03 at [facility] [place] by Dr. Gomez, here with infection at amputation site and found to have new AFIB with RVR, Heart failure Sepsis secondary to acute osteomyelitis/septic arthritis L foot, lytic changes at the area suggestive of OM, temp of 101, and wbc 14 continue iv vanco, zosyn started 02/20..Stopped Zosyn on 02/21, added kefzol for synerg on 02/21 cultures positive for MRSA ID following echo no vegetations repeat blood culture 02/21 1/2 +, repeat blood cultures 02/23 negative at 48 hrs vascular consult --no intervention PICC line on 02/28 Acute on chronic hypoxic respiratory failure, new onset CHF, cardiorenal syndorome Was on IV Lasix and changed to PO and now stopped d/t rising Creatine echo EF 40 to 45% cardiology following New onset AFib with RVR, resolved presently in sinus continue home metoprolol holding anticoagulation d/t anemia and will reassess in near future, presently not in afib Metabolic acidosis d/t renal failure, better bicab replacement UMAIR on CKD creatinine 7.3 from 2.83 2 months ago, but 5.3 on february 03 at [facility] [place]--Cr now stable at 7.5 to 8, no oligouria Nephrology following, further testing in progress may ultimately need [employer], stopping Lasix for now Stage I COPD, no acute exacerbation, no acute exacerbatiobn, given steroid in ED, no indication for further steroid bronchodilators PRN Anemia secondary to CKD, Hgb 7.6, stable dropped todaym, monitor, stopped eliquis type and screen for possible transfusion tomorrow HTN,continue norvasc, hydralzine, metoprolo Type 2 diabetes, A1C 6.6 sliding scale insulin diabetic diet Full code VTE prophylaxis: Heparin, Quality Stroke Does the patient have a stroke diagnosis?: No VTE Prior VTE?: No VTE Risk Level:: Medical - moderate - high VTE Device Contraindication: Treatment Not Indicated VTE Drug Contraindication: N/A - Med Ordered
[2025-02-26 11:43] LABS: Glucose, Whole Blood 148 mg/dL (60-115)
[2025-02-26 16:36] LABS: Glucose, Whole Blood 129 mg/dL (60-115)
[2025-02-26 22:17] LABS: Glucose, Whole Blood 149 mg/dL (60-115)
[2025-02-27] VITALS (13 sets, daily range): BP systolic 115–159; BP diastolic 56–69; PULSE 60–79; RESP 15–18; TEMP 36–37.2; O2SAT 92–97
[2025-02-27] MEDS: ceFAZolin Sodium 1 GM VIAL IVPUSH (05:28)
[2025-02-27 07:25] LABS: Glucose, Whole Blood 96 mg/dL (60-115)
[2025-02-27] MEDS: Tiotropium Bromide 2.5 mcg 1 PUFF/2.5 MCG MIST.INHAL 2 PUFF INHALE (07:40)
[2025-02-27] MEDS: 0.9 % Sodium Chloride Flush 3 ML SYRINGE IVFLUSH ×3 (09:36→19:54)
[2025-02-27] MEDS: hydrALAZINE HCl 50 MG TABLET PO ×3 (09:36→19:54)
[2025-02-27] MEDS: Finasteride 5 MG TABLET PO (09:36)
[2025-02-27] MEDS: Metoprolol Succinate ER 100 MG TAB.ER.24H PO (09:37)
[2025-02-27] MEDS: Sodium Bicarbonate 650 MG TABLET PO ×3 (09:37→19:54)
[2025-02-27] MEDS: Cholecalciferol (Vitamin D3) 25 MCG TABLET PO (09:37)
[2025-02-27] MEDS: Atorvastatin Calcium 80 MG TABLET PO (09:37)
[2025-02-27] MEDS: amLODIPine Besylate 10 MG TABLET PO (09:37)
[2025-02-27] MEDS: Tamsulosin HCL 0.4 MG CAPSULE PO (09:37)
[2025-02-27] MEDS: Heparin Sodium,Porcine 5,000 UNIT/ML VIAL 5000 UNIT SUBCUT ×2 (09:37→21:41)
[2025-02-27] MEDS: Isosorbide Mononitrate 30 MG TAB.ER.24H PO (09:37)
[2025-02-27] MEDS: Aspirin 81 MG TAB.CHEW PO (09:38)
[2025-02-27] MEDS: oxyCODONE HCl Immed Release 5 MG TABLET PO ×2 (09:40→20:02)
[2025-02-27 10:29] LABS: Hematocrit 23.7 % (42.0-52.0); Hemoglobin 7.9 g/dl (14.0-18.0); Mean Corpuscular HGB Conc 33.3 g/dl (31.0-36.0); Mean Corpuscular Hemoglobin 29.5 pg (27.0-33.0); Mean Corpuscular Volume 88.4 fL (80.0-98.0); Platelet Count 321 X10*3/uL (160-400); Red Blood Count 2.68 X10*6/uL (4.60-5.80); Red Cell Distribution Width 14.3 % (11.0-16.0); White Blood Count 10.6 X10*3/uL (4.8-10.8)
[2025-02-27 10:43] LABS: Vancomycin Random 18.6 mcg/mL (15-20)
[2025-02-27 10:50] LABS: Creatinine Clr Calc Pharmacy 8.6; Estimated Glomerular Filt Rate 6
[2025-02-27 11:18] LABS: Glucose, Whole Blood 153 mg/dL (60-115)
[2025-02-27] MEDS: Insulin Lispro 100 UNIT/ML 3 ML VIAL SUBCUT (11:40)
--- NOTE | 2025-02-27 12:28 | HO.PM.IMPN ---
Subjective Subjective Date of Service: 02/27/25 Interval History: blood cultures positive for staph aur, probably MRS WBC down, no confusion, repeat blood culture from 02/21 10/06 positiv at 48 hrs 02/23 culture negative at 48 hrs Creatine is plateauded at ~ 9, No uremia Physical Exam Vital Signs: Vital Signs: Last Vital Signs Temp 98.3 F 02/27/25 11:18 Pulse 60 02/27/25 11:18 Resp 18 02/27/25 11:18 BP 125/58 L 02/27/25 11:18 Pulse Ox 97 02/27/25 11:18 O2 Del Method Room Air 02/27/25 11:18 O2 Flow Rate 1 02/21/25 11:11 Oxygen Flow Rate 2 02/20/25 01:05 BMI result Body Mass Index 24.7 Const: Other: General: AO X 3, no acute distress Resp: CTA bilateral CVS: S1,S2,RRR GI: +BS, NT, no distention Skin: see pic 02/24--essentially no change Neuro: motor grossly intact Psych: appropriate affect Objective Data Active Medications Acetaminophen (Acetaminophen 325 Mg Tablet) 975 mg PO Q6H PRN PRN Reason: Pain, Mild 1-3,fever,headache Albuterol/Ipratropium (Albuterol/Iprat 2.5/0.5mg 3 Ml Ampul.Neb) 3 ml INHALE Q4H PRN PRN Reason: Shortness of Breath/Wheezing Amlodipine Besylate (Amlodipine Besylate 10 Mg Tablet) 10 mg PO DAILY [facility]; Protocol Last Admin: 02/27/25 09:37 Dose: 10 mg Documented By: MAGALYS Aspirin (Aspirin 81 Mg Tab.Chew) 81 mg PO DAILY [facility] Last Admin: 02/27/25 09:38 Dose: 81 mg Documented By: MAGALYS Atorvastatin Calcium (Atorvastatin Calcium 80 Mg Tablet) 80 mg PO DAILY [facility] Last Admin: 02/27/25 09:37 Dose: 80 mg Documented By: MAGALYS Calcium Carbonate (Calcium Carbonate 750 Mg Tab.Chew) 750 mg PO Q4H PRN PRN Reason: Heartburn Cefazolin Sodium (Cefazolin Sodium 1 Gm Vial) 1 gm IVPUSH Q24H [facility] Last Admin: 02/27/25 05:28 Dose: 1 gm Documented By: HEATHER Dextrose (Dextrose 50 % 25 Gm/50 Ml Syringe) 25 gm IVPUSH Q15M PRN; Protocol PRN Reason: per Hypoglycemia Standing Ord. Finasteride (Finasteride 5 Mg Tablet) 5 mg PO DAILY [facility] Last Admin: 02/27/25 09:36 Dose: 5 mg Documented By: MAGALYS Glucose (Glucose Gel 15 Gm Gel..Gram.) 15 gm PO Q15M PRN; Protocol PRN Reason: per Hypoglycemia Standing Ord. Heparin Sodium (Porcine) (Heparin Sodium,Porcine 5,000 Unit/Ml Vial) 5,000 unit SUBCUT Q12H [facility] Last Admin: 02/27/25 09:37 Dose: 5,000 unit Documented By: MAGALYS Hydralazine HCl (Hydralazine Hcl 50 Mg Tablet) 50 mg PO TID [facility]; Protocol Last Admin: 02/27/25 09:36 Dose: 50 mg Documented By: MAGALYS Vancomycin HCl 500 mg/ Sodium (Chloride) 110 mls @ 110 mls/hr IV ONCE ONE Stop: 02/21/25 08:59 Insulin Human Lispro (Insulin Lispro 100 Unit/Ml 3 Ml Vial) 0 unit SUBCUT QIDACHS [facility]; Protocol Last Admin: 02/27/25 11:40 Dose: 2 unit Documented By: MAGALYS Isosorbide Mononitrate (Isosorbide Mononitrate 30 Mg Tab.Er.24h) 30 mg PO DAILY [facility]; Protocol Last Admin: 02/27/25 09:37 Dose: 30 mg Documented By: MAGALYS Magnesium Hydroxide (Milk Of Magnesia 30 Ml Oral.Susp) 30 ml PO DAILY PRN PRN Reason: Constipation Melatonin (Melatonin 3 Mg Tablet) 6 mg PO BEDTIME PRN PRN Reason: Insomnia Last Admin: 02/24/25 21:12 Dose: 6 mg Documented By: CHASE Metoprolol Succinate (Metoprolol Succinate Er 100 Mg Tab.Er.24h) 100 mg PO DAILY [facility]; Protocol Last Admin: 02/27/25 09:37 Dose: 100 mg Documented By: MAGALYS Ondansetron HCl (Ondansetron Hcl 4 Mg/2 Ml Vial) 4 mg IVPUSH Q8H PRN PRN Reason: Nausea and Vomiting Oxycodone HCl (Oxycodone Hcl Immed Release 5 Mg Tablet) 5 mg PO Q6H PRN PRN Reason: Pain, Severe (Pain Scale 7-10) Last Admin: 02/27/25 09:40 Dose: 5 mg Documented By: MAGALYS Pharmacy Consult (Consult Rx Vancomycin Dosing) 1 each MISCELLANE DAILY PRN PRN Reason: Consult order Sodium Bicarbonate (Sodium Bicarbonate 650 Mg Tablet) 650 mg PO TID [facility] Last Admin: 02/27/25 09:37 Dose: 650 mg Documented By: MAGALYS Sodium Chloride (0.9 % Sodium Chloride Flush 3 Ml Syringe) 3 ml IVFLUSH QSHIFT [facility] Last Admin: 02/27/25 09:36 Dose: 3 ml Documented By: MAGALYS Tamsulosin HCl (Tamsulosin Hcl 0.4 Mg Capsule) 0.4 mg PO DAILY [facility] Last Admin: 02/27/25 09:37 Dose: 0.4 mg Documented By: MAGALYS Tiotropium [place] (Tiotropium [place] 2.5 Mcg 1 Puff/2.5 Mcg Mist.Inhal) 2 puff INHALE RDAILY [facility] Last Admin: 02/27/25 07:40 Dose: 2 puff Documented By: SACHIN Vitamin D (Cholecalciferol (Vitamin D3) 25 Mcg Tablet) 25 mcg PO DAILY [facility] Last Admin: 02/27/25 09:37 Dose: 25 mcg Documented By: MAGALYS Labs 02/27/25 09:59 02/27/25 09:59 Labs: Laboratory Results - last 24 hr 02/26/25 02/26/25 02/27/25 16:32 20:11 07:22 MCV MCH MCHC RDW Plt Count MPV Absolute Nucleated RBC Nucleated RBC % (auto) Estim Creat Clear Calc Estimated GFR POC Glucose 129 H 149 H 96 Random Vancomycin Blood Type Antibody Screen 02/27/25 02/27/25 09:59 11:13 MCV 88.4 MCH 29.5 MCHC 33.3 RDW 14.3 Plt Count 321 MPV 10.0 Absolute Nucleated RBC 0.000 Nucleated RBC % (auto) 0.0 Estim Creat Clear Calc 8.6 Estimated GFR 6 POC Glucose 153 H Random Vancomycin 18.6 Blood Type A Negative Antibody Screen NEGATIVE Microbiology Microbiology Results: Microbiology 02/21/25 11:58 Blood Culture - Final Blood - Venous No growth after 5 days. Assessment and Plan (1) Staphylococcus aureus bacteremia: Status: Acute (2) CKD (chronic kidney disease) stage 4, GFR 15-29 ml/min: Status: Acute (3) Acute kidney injury superimposed on CKD: Status: Acute (4) Sepsis: Status: Acute Plan 64 year male with a past medical history significant for stage I COPD, chronic respiratory failure on O2, WENDY, s/p right BKA, HTN, a AFib on Xarelto, type 2 diabetes, just recently s/p left great toe amputation 3 weeks ago on February 03 at [facility] [place], here with infection at amputation site and found to have new AFIB with RVR, Heart failure Sepsis secondary to acute osteomyelitis/septic arthritis L foot, lytic changes at the area suggestive of OM, temp of 101, and wbc 14 continue iv vanco, zosyn started 02/20..Stopped Zosyn on 02/21, added kefzol for synerg on 02/21 cultures positive for MRSA ID following echo no vegetations repeat blood culture 02/21 1/ +, repeat blood cultures 02/23 negative at 48 hrs vascular consult --no intervention Will neeed a arguello cath not PICC line Acute on chronic hypoxic respiratory failure, new onset CHF, cardiorenal syndorome Was on IV Lasix and changed to PO and now stopped d/t rising Creatine echo EF 40 to 45% cardiology following New onset AFib with RVR, resolved presently in sinus continue home metoprolol holding anticoagulation d/t anemia and will reassess in near future, presently not in afib Metabolic acidosis d/t renal failure, better bicab replacement UMAIR on CKD creatinine 7.3 from 2.83 2 months ago, but 5.3 on february 03 at [facility] [place]--Cr now stable at 7.5 to 8, no oligouria Nephrology following, further testing in progress may ultimately need [employer]PER[employer], stopping Lasix for now Stage I COPD, no acute exacerbation, no acute exacerbatiobn, given steroid in ED, no indication for further steroid bronchodilators PRN Anemia secondary to CKD, Hgb 7.6, stable dropped todaym, monitor, stopped eliquis Type and screen 02/27, tranfusion if Hgb < 7, will benfit from epogen HTN,continue norvasc, hydralzine, metoprolo Type 2 diabetes, A1C 6.6 sliding scale insulin diabetic diet Full code VTE prophylaxis: Heparin, Plan discussed with Quality Stroke Does the patient have a stroke diagnosis?: No VTE Prior VTE?: No VTE Risk Level:: Medical - moderate - high VTE Device Contraindication: Treatment Not Indicated VTE Drug Contraindication: N/A - Med Ordered
[2025-02-27 15:47] LABS: Glucose, Whole Blood 91 mg/dL (60-115)
[2025-02-27 19:39] LABS: Glucose, Whole Blood 101 mg/dL (60-115)
--- NOTE | 2025-02-27 23:20 | PC.NURSE ---
Assumed care of this patient at 19:00. Pt placed on tele with q4HR VS per covering Dr. Haseeb Rodriugez orders. Remains NSR. Denies chest pain, palpitations, sob, or other acute complaints. Handoff report given to oncoming RN at 23:00. Please see shift assessment, tasks in worklist, and MAR for full details.
[2025-02-28] VITALS (7 sets, daily range): BP systolic 116–155; BP diastolic 57–69; PULSE 56–69; RESP 12–18; TEMP 36.5–37.2; O2SAT 93–96; BMI 24.6
[2025-02-28] MEDS: Magnesium Sulfate/H2O 2 GM/50 ML PIGGYBACK IV (03:32)
--- NOTE | 2025-02-28 03:41 | PC.NURSE ---
patient with 18 beat SVT reported from staff watching monitor in IMC. notified and Mag CARMEN wilkins as ordered.
[2025-02-28] MEDS: ceFAZolin Sodium 1 GM VIAL IVPUSH (05:28)
[2025-02-28 06:30] LABS: Creatinine Clr Calc Pharmacy 8.7; Estimated Glomerular Filt Rate 6
[2025-02-28 07:38] LABS: Glucose, Whole Blood 82 mg/dL (60-115)
--- NOTE | 2025-02-28 07:52 | HO.PM.IMPN ---
Subjective Subjective Date of Service: 03/01/25 Interval History: om,mrsa bacteremia Review of Systems no new c/o Review of Systems: Yes all other systems are reviewed and are negative Physical Exam Vital Signs: Vital Signs: Last Vital Signs Temp 98.9 F 02/28/25 03:28 Pulse 65 02/28/25 03:28 Resp 18 02/28/25 03:28 BP 154/67 H 02/28/25 03:28 Pulse Ox 95 02/28/25 03:28 O2 Del Method Room Air 02/28/25 03:28 O2 Flow Rate 1 02/21/25 11:11 Oxygen Flow Rate 2 02/20/25 01:05 BMI result Body Mass Index 24.6 General: AO X 3, no acute distress Resp: CTA bilateral CVS: S1,S2,RRR GI: +BS, NT, no distention Skin: see pic 02/24- similar. Objective Data Active Medications Acetaminophen (Acetaminophen 325 Mg Tablet) 975 mg PO Q6H PRN PRN Reason: Pain, Mild 1-3,fever,headache Albuterol/Ipratropium (Albuterol/Iprat 2.5/0.5mg 3 Ml Ampul.Neb) 3 ml INHALE Q4H PRN PRN Reason: Shortness of Breath/Wheezing Amlodipine Besylate (Amlodipine Besylate 10 Mg Tablet) 10 mg PO DAILY [facility]; Protocol Last Admin: 02/27/25 09:37 Dose: 10 mg Documented By: MAGALYS Aspirin (Aspirin 81 Mg Tab.Chew) 81 mg PO DAILY [facility] Last Admin: 02/27/25 09:38 Dose: 81 mg Documented By: MAGALYS Atorvastatin Calcium (Atorvastatin Calcium 80 Mg Tablet) 80 mg PO DAILY [facility] Last Admin: 02/27/25 09:37 Dose: 80 mg Documented By: MAGALYS Calcium Carbonate (Calcium Carbonate 750 Mg Tab.Chew) 750 mg PO Q4H PRN PRN Reason: Heartburn Cefazolin Sodium (Cefazolin Sodium 1 Gm Vial) 1 gm IVPUSH Q24H [facility] Last Admin: 02/28/25 05:28 Dose: 1 gm Documented By: HUSEYIN Dextrose (Dextrose 50 % 25 Gm/50 Ml Syringe) 25 gm IVPUSH Q15M PRN; Protocol PRN Reason: per Hypoglycemia Standing Ord. Finasteride (Finasteride 5 Mg Tablet) 5 mg PO DAILY [facility] Last Admin: 02/27/25 09:36 Dose: 5 mg Documented By: MAGALYS Glucose (Glucose Gel 15 Gm Gel..Gram.) 15 gm PO Q15M PRN; Protocol PRN Reason: per Hypoglycemia Standing Ord. Heparin Sodium (Porcine) (Heparin Sodium,Porcine 5,000 Unit/Ml Vial) 5,000 unit SUBCUT Q12H [facility] Last Admin: 02/27/25 21:41 Dose: 5,000 unit Documented By: MANUEL Hydralazine HCl (Hydralazine Hcl 50 Mg Tablet) 50 mg PO TID [facility]; Protocol Last Admin: 02/27/25 19:54 Dose: 50 mg Documented By: MANUEL Vancomycin HCl 500 mg/ Sodium (Chloride) 110 mls @ 110 mls/hr IV ONCE ONE Stop: 02/21/25 08:59 Insulin Human Lispro (Insulin Lispro 100 Unit/Ml 3 Ml Vial) 0 unit SUBCUT QIDACHS [facility]; Protocol Last Admin: 02/28/25 07:42 Dose: Not Given Documented By: PRINCESS Non-Admin Reason: No Insulin Coverage Isosorbide Mononitrate (Isosorbide Mononitrate 30 Mg Tab.Er.24h) 30 mg PO DAILY [facility]; Protocol Last Admin: 02/27/25 09:37 Dose: 30 mg Documented By: MAGALYS Magnesium Hydroxide (Milk Of Magnesia 30 Ml Oral.Susp) 30 ml PO DAILY PRN PRN Reason: Constipation Melatonin (Melatonin 3 Mg Tablet) 6 mg PO BEDTIME PRN PRN Reason: Insomnia Last Admin: 02/24/25 21:12 Dose: 6 mg Documented By: CHASE Metoprolol Succinate (Metoprolol Succinate Er 100 Mg Tab.Er.24h) 100 mg PO DAILY [facility]; Protocol Last Admin: 02/27/25 09:37 Dose: 100 mg Documented By: MAGALYS Ondansetron HCl (Ondansetron Hcl 4 Mg/2 Ml Vial) 4 mg IVPUSH Q8H PRN PRN Reason: Nausea and Vomiting Oxycodone HCl (Oxycodone Hcl Immed Release 5 Mg Tablet) 5 mg PO Q6H PRN PRN Reason: Pain, Severe (Pain Scale 7-10) Last Admin: 02/27/25 20:02 Dose: 5 mg Documented By: MANUEL Pharmacy Consult (Consult Rx Vancomycin Dosing) 1 each MISCELLANE DAILY PRN PRN Reason: Consult order Sodium Bicarbonate (Sodium Bicarbonate 650 Mg Tablet) 650 mg PO TID [facility] Last Admin: 02/27/25 19:54 Dose: 650 mg Documented By: MANUEL Sodium Chloride (0.9 % Sodium Chloride Flush 3 Ml Syringe) 3 ml IVFLUSH QSHIFT [facility] Last Admin: 02/27/25 19:54 Dose: 3 ml Documented By: MANUEL Tamsulosin HCl (Tamsulosin Hcl 0.4 Mg Capsule) 0.4 mg PO DAILY [facility] Last Admin: 02/27/25 09:37 Dose: 0.4 mg Documented By: MAGALYS Tiotropium [place] (Tiotropium [place] 2.5 Mcg 1 Puff/2.5 Mcg Mist.Inhal) 2 puff INHALE RDAILY [facility] Last Admin: 02/27/25 07:40 Dose: 2 puff Documented By: SACHIN Vitamin D (Cholecalciferol (Vitamin D3) 25 Mcg Tablet) 25 mcg PO DAILY [facility] Last Admin: 02/27/25 09:37 Dose: 25 mcg Documented By: MAGALYS Labs 02/27/25 09:59 02/28/25 06:01 Labs: Laboratory Results - last 24 hr 02/27/25 02/27/25 02/27/25 09:59 11:13 15:19 MCV 88.4 MCH 29.5 MCHC 33.3 RDW 14.3 Plt Count 321 MPV 10.0 Absolute Nucleated RBC 0.000 Nucleated RBC % (auto) 0.0 Hold Purple Top Estim Creat Clear Calc 8.6 Estimated GFR 6 POC Glucose 153 H 91 Random Vancomycin 18.6 Blood Type A Negative Antibody Screen NEGATIVE 02/27/25 02/28/25 02/28/25 19:30 06:01 07:32 MCV MCH MCHC RDW Plt Count MPV Absolute Nucleated RBC Nucleated RBC % (auto) Hold Purple Top SEE NOTE Estim Creat Clear Calc 8.7 Estimated GFR 6 POC Glucose 101 82 Random Vancomycin Blood Type Antibody Screen Assessment and Plan (1) Staphylococcus aureus bacteremia: Status: Acute (2) CKD (chronic kidney disease) stage 4, GFR 15-29 ml/min: Status: Acute (3) Acute kidney injury superimposed on CKD: Status: Acute (4) Sepsis: Status: Acute Plan 64 year male with a past medical history significant for stage I COPD, chronic respiratory failure on O2, WENDY, s/p right BKA, HTN, a AFib on Xarelto, type 2 diabetes, just recently s/p left great toe amputation 3 weeks ago on February 03 at [facility] [place], here with infection at amputation site and found to have new AFIB with RVR, Heart failure Sepsis secondary to acute osteomyelitis/septic arthritis L foot, lytic changes at the area suggestive of OM, temp of 101, and wbc 14 cultures positive for MRSA echo no vegetations repeat blood culture 02/21 1/ +, repeat blood cultures 02/23 negative at 48 hrs vascular consult --no intervention added arguello cath cpk :13 Id recomended to start daptomaycin,dc vanco Acute on chronic hypoxic respiratory failure, new onset CHF, cardiorenal syndorome Was on IV Lasix and changed to PO and now stopped d/t rising Creatine echo EF 40 to 45% nephrology recomended -hold lasix due to worsening renal function. 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 HTN,continue norvasc, hydralzine, metoprolo Type 2 diabetes, A1C 6.6 sliding scale insulin diabetic diet Full code VTE prophylaxis: Heparin plan: need arguello,id and nephro follow up. Quality Stroke Does the patient have a stroke diagnosis?: No VTE Prior VTE?: No VTE Risk Level:: Medical - moderate - high VTE Device Contraindication: Treatment Not Indicated VTE Drug Contraindication: N/A - Med Ordered
[2025-02-28] MEDS: Tamsulosin HCL 0.4 MG CAPSULE PO (08:25)
[2025-02-28] MEDS: Sodium Bicarbonate 650 MG TABLET PO ×3 (08:26→20:21)
[2025-02-28] MEDS: Isosorbide Mononitrate 30 MG TAB.ER.24H PO (08:26)
[2025-02-28] MEDS: hydrALAZINE HCl 50 MG TABLET PO ×3 (08:26→20:21)
[2025-02-28] MEDS: amLODIPine Besylate 10 MG TABLET PO (08:26)
[2025-02-28] MEDS: Cholecalciferol (Vitamin D3) 25 MCG TABLET PO (08:26)
[2025-02-28] MEDS: oxyCODONE HCl Immed Release 5 MG TABLET PO ×2 (08:26→20:26)
[2025-02-28 08:27] LABS: Anion Gap 20 (12-20); Blood Urea Nitrogen 105 mg/dL (9-16); Calcium 7.9 mg/dL (8.4-10.2); Carbon Dioxide 19 mmol/L (22-29); Chloride 103 mmol/L (96-108); Glucose Random 81 mg/dL (60-115); Potassium 3.9 mmol/L (3.3-5.1); Sodium 138 mmol/L (135-145)
[2025-02-28] MEDS: Atorvastatin Calcium 80 MG TABLET PO (08:28)
[2025-02-28] MEDS: Aspirin 81 MG TAB.CHEW PO (08:28)
[2025-02-28] MEDS: Finasteride 5 MG TABLET PO (08:28)
[2025-02-28] MEDS: Metoprolol Succinate ER 100 MG TAB.ER.24H PO (08:28)
[2025-02-28] MEDS: Heparin Sodium,Porcine 5,000 UNIT/ML VIAL 5000 UNIT SUBCUT ×2 (08:30→20:20)
[2025-02-28] MEDS: 0.9 % Sodium Chloride Flush 3 ML SYRINGE IVFLUSH ×3 (08:31→20:20)
--- NOTE | 2025-02-28 10:00 | P.PNNP_ITS ---
Subjective Subjective Date of Service: 02/28/25 Interval history: 64 y/o male with a medical history of CKD4 from HTN, DMII, vascular disease following for UMAIR on CKD creatinine increased from baseline 2.83 to 9's, remains persistent. GFR ~6. patient is making urine and denies uremic symptoms. UA with large amount of protein, no blood/other cells reports breathing is comfortable on room air denies nausea, vomiting, chest pain, abdominal pain, shortness of breath states he feels good and does not have any new symptoms/concerns blood cultures from 02/23 are negative. Physical Exam 2 Vital Signs: Vital Signs: Last Vital Signs Temp 98.6 F 02/28/25 07:55 Pulse 69 02/28/25 07:55 Resp 18 02/28/25 07:55 BP 155/69 H 02/28/25 07:55 Pulse Ox 95 02/28/25 07:55 O2 Del Method Room Air 02/28/25 07:55 O2 Flow Rate 1 02/21/25 11:11 Oxygen Flow Rate 2 02/20/25 01:05 BMI result Body Mass Index 24.6 Const: General: no acute distress, alert and awake Neck: Neck: Yes no JVD Resp: Effort & Inspection: normal respiratory effort and able to speak in complete sentences Auscultation: clear to auscultation bilaterally Cardio: Rate: regular rate Rhythm: regular rhythm Heart sounds: S1 normal heart sound present and S2 normal heart sound present GI: Palpation (GI): Soft to palpation and nontender : General: Yes no CVA tenderness Back/Spine/Pelvis: Back: no CVA tenderness Skin: Rashes: no rashes Extrem: General: No edema Objective Data Labs 02/27/25 09:59 02/28/25 06:01 Labs: Laboratory Results - last 24 hr 02/27/25 02/27/25 02/28/25 15:19 19:30 06:01 Hold Purple Top SEE NOTE Sodium 138 Potassium 3.9 Chloride 103 Carbon Dioxide 19 L Anion Gap 20 BUN 105 H Creatinine 9.24 H* Estim Creat Clear Calc 8.7 Estimated GFR 6 POC Glucose 91 101 Random Glucose 81 Calcium 7.9 L Random Vancomycin 02/28/25 02/28/25 02/28/25 07:32 10:14 11:15 Hold Purple Top Sodium Potassium Chloride Carbon Dioxide Anion Gap BUN Creatinine Estim Creat Clear Calc Estimated GFR POC Glucose 82 136 H Random Glucose Calcium Random Vancomycin 16.5 Microbiology Microbiology Results: Microbiology 02/21/25 11:58 Blood - Venous Blood Culture - Final No growth after 5 days. 02/23/25 12:03 Blood - Venous Blood Culture - Preliminary No growth after 48 hours. 02/23/25 12:03 Blood - Venous Blood Culture - Preliminary No growth after 48 hours. 02/21/25 11:58 Blood - Venous Blood Culture - Final Methicillin Res Staph Aureus 02/20/25 01:36 Blood - Venous Blood Culture - Final Methicillin Res Staph Aureus 02/20/25 01:41 Blood - Venous Blood Culture - Final Methicillin Res Staph Aureus Procedures Date of Service Date of Service: 02/28/25 Assessment & Plan Assessment and plan (1) Acute kidney injury superimposed on CKD: Status: Acute (2) Fluid overload: Status: Acute (3) Hypertension: Status: Acute Plan UMAIR liekly tubular injury on CKD, osteomyelitis likely contributory; fluid overload have contributed renal function has remained fairly stable, patient continues to make urine patient appears euvolemic, recommend continuing current regimen- recommend once discharged home, he be discharged on lasix 20mg PO daily blood pressures suboptimal, will increase imdur to 60mg daily and continue rest of antihypertensive regimen. *needs outpatient follow up for complex renal cysts on renal US. Will need close follow up in the office; ok for discharge from a renal standpoint, we will see him within one week of discharge in the office. Discussed with Dr Kuhn. Time Spent With Patient Time: Total time managing care of this patient today ____ minutes. Progress Note: Quality Stroke Does the patient have a stroke diagnosis?: No
[2025-02-28 11:11] LABS: Vancomycin Random 16.5 mcg/mL (15-20)
[2025-02-28 11:21] LABS: Glucose, Whole Blood 136 mg/dL (60-115)
--- NOTE | 2025-02-28 13:40 | MHC.CM.PN ---
CM MET WITH PT AND SPOUSE AT BEDSIDE TO DISCUSS DC PLAN. IS ABLE AND WILLING TO ASSIST WITH HOME IV RX AND PT WOULD PREFER TO GO HOME. [facility] NOTIFIED THAT PT'S SPOUSE WILL NEED A TEACH BEFORE DC AND [facility] HAS BEEN UPDATED. PT IS PENDING ID, NEPHRO AND LINE PLACEMENT (POSSIBLE [facility] CATH) CM WILL CONTINUE TO FOLLOW FOR ANY CHANGES TO DC PLAN.
[2025-02-28] MEDS: Potassium Chloride ER 10 MEQ TABLET.ER PO (14:44)
[2025-02-28] MEDS: DAPTOmycin 500 MG in 0.9 % Sodium Chloride 50 ML 100.19 MG IV (14:45)
[2025-02-28 15:11] LABS: Magnesium 2.8 mg/dL (1.6-2.6)
[2025-02-28 16:40] LABS: Glucose, Whole Blood 137 mg/dL (60-115)
[2025-02-28] MEDS: Epoetin Alfa-epbx 10,000 UNIT/ML VIAL 10000 UNIT SUBCUT (17:04)
[2025-02-28 19:42] LABS: Glucose, Whole Blood 157 mg/dL (60-115)
[2025-02-28] MEDS: Insulin Lispro 100 UNIT/ML 3 ML VIAL SUBCUT (20:20)
[2025-02-28 21:00] LABS: Glucose, Whole Blood 160 mg/dL (60-115)
[2025-03-01] VITALS (12 sets, daily range): BP systolic 109–155; BP diastolic 45–69; PULSE 56–64; RESP 14–24; TEMP 36.5–37; O2SAT 95–100
[2025-03-01] MEDS: ceFAZolin Sodium 1 GM VIAL IVPUSH (05:33)
[2025-03-01 07:24] LABS: Glucose, Whole Blood 83 mg/dL (60-115)
[2025-03-01] MEDS: 0.9 % Sodium Chloride Flush 3 ML SYRINGE IVFLUSH ×3 (09:13→20:12)
[2025-03-01] MEDS: Heparin Sodium,Porcine 5,000 UNIT/ML VIAL 5000 UNIT SUBCUT ×2 (09:15→20:10)
[2025-03-01] MEDS: Isosorbide Mononitrate 60 MG TAB.ER.24H PO (09:15)
[2025-03-01] MEDS: oxyCODONE HCl Immed Release 5 MG TABLET PO ×2 (09:15→15:58)
[2025-03-01] MEDS: Tamsulosin HCL 0.4 MG CAPSULE PO (09:15)
[2025-03-01] MEDS: Cholecalciferol (Vitamin D3) 25 MCG TABLET PO (09:16)
[2025-03-01] MEDS: Aspirin 81 MG TAB.CHEW PO (09:16)
[2025-03-01] MEDS: amLODIPine Besylate 10 MG TABLET PO (09:16)
[2025-03-01] MEDS: hydrALAZINE HCl 50 MG TABLET PO ×3 (09:16→20:10)
[2025-03-01] MEDS: Finasteride 5 MG TABLET PO (09:16)
[2025-03-01] MEDS: Metoprolol Succinate ER 100 MG TAB.ER.24H PO (09:16)
[2025-03-01] MEDS: Sodium Bicarbonate 650 MG TABLET PO ×3 (09:16→20:10)
[2025-03-01 11:02] LABS: Glucose, Whole Blood 96 mg/dL (60-115)
--- NOTE | 2025-03-01 13:55 | MHC.CM.PN ---
EM[facility] REVIEWED AND PER MD ROUNDS, PT IS NOT MEDICALLY CLEARED FOR DC. (AWAITING [facility] PLACEMENT, FINAL ID PLAN, NEPHRO MONITORING LABS) [facility] UPDATED AND WILL BE IN TO DO TEACH WITH /PT WHEN PLAN FINALIZED AND [facility] IN. [facility] UPDATED. CM WILL CONTINUE TO FOLLOW FOR ANY CHANGE TO DC PLAN.
[2025-03-01] MEDS: fentaNYL citrate/PF 100 MCG/2 ML VIAL 25 MCG IVPUSH (15:18)
[2025-03-01 16:05] LABS: Glucose, Whole Blood 105 mg/dL (60-115)
--- NOTE | 2025-03-01 17:23 | HO.PM.IMPN ---
Subjective Subjective Date of Service: 03/01/25 Interval History: om,mrsa bacteremia episode of nsvt yesterday? Review of Systems Patient asymptomatic Denies new complaints. Review of Systems: Yes all other systems are reviewed and are negative Physical Exam Vital Signs: Vital Signs: Last Vital Signs Temp 98.2 F 03/01/25 11:42 Pulse 58 03/01/25 15:30 Resp 14 03/01/25 15:30 BP 114/45 L 03/01/25 15:30 Pulse Ox 100 03/01/25 15:30 O2 Del Method Nasal Cannula 03/01/25 15:30 O2 Flow Rate 2 03/01/25 15:30 Oxygen Flow Rate 2 02/20/25 01:05 BMI result Body Mass Index 24.6 General: AO X 3, no acute distress Resp: CTA bilateral CVS: S1,S2,RRR GI: +BS, NT, no distention Skin: see pic 02/24- similar. Objective Data Active Medications Acetaminophen (Acetaminophen 325 Mg Tablet) 975 mg PO Q6H PRN PRN Reason: Pain, Mild 1-3,fever,headache Albuterol/Ipratropium (Albuterol/Iprat 2.5/0.5mg 3 Ml Ampul.Neb) 3 ml INHALE Q4H PRN PRN Reason: Shortness of Breath/Wheezing Amlodipine Besylate (Amlodipine Besylate 10 Mg Tablet) 10 mg PO DAILY [facility]; Protocol Last Admin: 03/01/25 09:16 Dose: 10 mg Documented By: ALBINO Aspirin (Aspirin 81 Mg Tab.Chew) 81 mg PO DAILY [facility] Last Admin: 03/01/25 09:16 Dose: 81 mg Documented By: ALBINO Atorvastatin Calcium (Atorvastatin Calcium 80 Mg Tablet) 80 mg PO DAILY [facility] Last Admin: 02/28/25 08:28 Dose: 80 mg Documented By: PRINCESS Calcium Carbonate (Calcium Carbonate 750 Mg Tab.Chew) 750 mg PO Q4H PRN PRN Reason: Heartburn Cefazolin Sodium (Cefazolin Sodium 1 Gm Vial) 1 gm IVPUSH Q24H [facility] Last Admin: 03/01/25 05:33 Dose: 1 gm Documented By: ADAM Dextrose (Dextrose 50 % 25 Gm/50 Ml Syringe) 25 gm IVPUSH Q15M PRN; Protocol PRN Reason: per Hypoglycemia Standing Ord. Finasteride (Finasteride 5 Mg Tablet) 5 mg PO DAILY [facility] Last Admin: 03/01/25 09:16 Dose: 5 mg Documented By: ALBINO Glucose (Glucose Gel 15 Gm Gel..Gram.) 15 gm PO Q15M PRN; Protocol PRN Reason: per Hypoglycemia Standing Ord. Heparin Sodium (Porcine) (Heparin Sodium,Porcine 5,000 Unit/Ml Vial) 5,000 unit SUBCUT Q12H [facility] Last Admin: 03/01/25 09:15 Dose: 5,000 unit Documented By: ALBINO Hydralazine HCl (Hydralazine Hcl 50 Mg Tablet) 50 mg PO TID [facility]; Protocol Last Admin: 03/01/25 15:58 Dose: 50 mg Documented By: ALBINO Daptomycin 660 mg/ Sodium (Chloride) 63.2 mls @ 100.186 mls/hr IV Q48H [facility] Insulin Human Lispro (Insulin Lispro 100 Unit/Ml 3 Ml Vial) 0 unit SUBCUT QIDACHS [facility]; Protocol Last Admin: 03/01/25 16:05 Dose: Not Given Documented By: ALBINO Non-Admin Reason: No Insulin Coverage Isosorbide Mononitrate (Isosorbide Mononitrate 60 Mg Tab.Er.24h) 60 mg PO DAILY [facility]; Protocol Last Admin: 03/01/25 09:15 Dose: 60 mg Documented By: ALBINO Magnesium Hydroxide (Milk Of Magnesia 30 Ml Oral.Susp) 30 ml PO DAILY PRN PRN Reason: Constipation Melatonin (Melatonin 3 Mg Tablet) 6 mg PO BEDTIME PRN PRN Reason: Insomnia Last Admin: 02/24/25 21:12 Dose: 6 mg Documented By: CHASE Metoprolol Succinate (Metoprolol Succinate Er 100 Mg Tab.Er.24h) 100 mg PO DAILY [facility]; Protocol Last Admin: 03/01/25 09:16 Dose: 100 mg Documented By: ALBINO Ondansetron HCl (Ondansetron Hcl 4 Mg/2 Ml Vial) 4 mg IVPUSH Q8H PRN PRN Reason: Nausea and Vomiting Oxycodone HCl (Oxycodone Hcl Immed Release 5 Mg Tablet) 5 mg PO Q6H PRN PRN Reason: Pain, Severe (Pain Scale 7-10) Last Admin: 03/01/25 15:58 Dose: 5 mg Documented By: ALBINO Sodium Bicarbonate (Sodium Bicarbonate 650 Mg Tablet) 650 mg PO TID [facility] Last Admin: 03/01/25 15:56 Dose: 650 mg Documented By: ALBINO Sodium Chloride (0.9 % Sodium Chloride Flush 3 Ml Syringe) 3 ml IVFLUSH QSHIFT [facility] Last Admin: 03/01/25 16:00 Dose: 3 ml Documented By: ALBINO Tamsulosin HCl (Tamsulosin Hcl 0.4 Mg Capsule) 0.4 mg PO DAILY [facility] Last Admin: 03/01/25 09:15 Dose: 0.4 mg Documented By: ALBINO Tiotropium [place] (Tiotropium [place] 2.5 Mcg 1 Puff/2.5 Mcg Mist.Inhal) 2 puff INHALE RDAILY [facility] Last Admin: 03/01/25 07:48 Dose: Not Given Documented By: ELLIS Non-Admin Reason: Patient Refused Vitamin D (Cholecalciferol (Vitamin D3) 25 Mcg Tablet) 25 mcg PO DAILY [facility] Last Admin: 03/01/25 09:16 Dose: 25 mcg Documented By: ALBINO Labs 02/27/25 09:59 02/28/25 06:01 Labs: Laboratory Results - last 24 hr 02/28/25 02/28/25 03/01/25 19:36 20:56 07:20 POC Glucose 157 H 160 H 83 03/01/25 03/01/25 10:59 15:58 POC Glucose 96 105 Microbiology Microbiology Results: Microbiology 02/23/25 12:03 Blood Culture - Final Blood - Venous No growth after 5 days. 02/23/25 12:03 Blood Culture - Final Blood - Venous No growth after 5 days. Assessment and Plan (1) Staphylococcus aureus bacteremia: Status: Acute (2) CKD (chronic kidney disease) stage 4, GFR 15-29 ml/min: Status: Acute (3) Acute kidney injury superimposed on CKD: Status: Acute (4) Sepsis: Status: Acute Plan 64 year male with a past medical history significant for stage I COPD, chronic respiratory failure on O2, WENDY, s/p right BKA, HTN, a AFib on Xarelto, type 2 diabetes, just recently s/p left great toe amputation 3 weeks ago on February 03 at [facility] [place] by Dr. Gomez, here with infection at amputation site and found to have new AFIB with RVR, Heart failure Sepsis secondary to acute osteomyelitis/septic arthritis L foot, lytic changes at the area suggestive of OM, temp of 101, and wbc 14 cultures positive for MRSA echo no vegetations repeat blood culture 02/21 1/ +, repeat blood cultures 02/23 negative at 48 hrs vascular consult --no intervention added arguello cath cpk :13 Id recomended to start daptomaycin,dc vanco Acute on chronic hypoxic respiratory failure, new onset CHF, cardiorenal syndorome Was on IV Lasix and changed to PO and now stopped d/t rising Creatine echo EF 40 to 45% nephrology recomended -hold lasix due to worsening renal function. 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 HTN,continue norvasc, hydralzine, metoprolo Type 2 diabetes, A1C 6.6 sliding scale insulin diabetic diet Full code VTE prophylaxis: Heparin plan: need arguello,id and nephro follow up. Quality Stroke Does the patient have a stroke diagnosis?: No VTE Prior VTE?: No VTE Risk Level:: Medical - moderate - high VTE Device Contraindication: Treatment Not Indicated VTE Drug Contraindication: N/A - Med Ordered
[2025-03-01 18:47] LABS: Anion Gap 19 (12-20); Blood Urea Nitrogen 99 mg/dL (9-16); Calcium 7.7 mg/dL (8.4-10.2); Carbon Dioxide 23 mmol/L (22-29); Chloride 101 mmol/L (96-108); Creatinine Clr Calc Pharmacy 8.6; Estimated Glomerular Filt Rate 6; Glucose Random 189 mg/dL (60-115); Magnesium 2.6 mg/dL (1.6-2.6); Potassium 4.2 mmol/L (3.3-5.1); Sodium 139 mmol/L (135-145)
[2025-03-01 19:07] LABS: Hematocrit 24.5 % (42.0-52.0); Hemoglobin 7.8 g/dl (14.0-18.0)
[2025-03-01 19:57] LABS: Glucose, Whole Blood 255 mg/dL (60-115)
[2025-03-01] MEDS: Insulin Lispro 100 UNIT/ML 3 ML VIAL SUBCUT (20:11)
[2025-03-02] VITALS (9 sets, daily range): BP systolic 124–141; BP diastolic 59–64; PULSE 62–75; RESP 14–18; TEMP 36.4–36.7; O2SAT 96–97; BMI 24.9
[2025-03-02] MEDS: oxyCODONE HCl Immed Release 5 MG TABLET PO ×3 (01:17→14:58)
[2025-03-02] MEDS: ceFAZolin Sodium 1 GM VIAL IVPUSH (06:10)
[2025-03-02 07:44] LABS: Glucose, Whole Blood 88 mg/dL (60-115)
[2025-03-02] MEDS: Tiotropium Bromide 2.5 mcg 1 PUFF/2.5 MCG MIST.INHAL 2 PUFF INHALE (07:56)
[2025-03-02] MEDS: Tamsulosin HCL 0.4 MG CAPSULE PO (08:15)
[2025-03-02] MEDS: Aspirin 81 MG TAB.CHEW PO (08:16)
[2025-03-02] MEDS: Cholecalciferol (Vitamin D3) 25 MCG TABLET PO (08:16)
[2025-03-02] MEDS: Metoprolol Succinate ER 100 MG TAB.ER.24H PO (08:16)
[2025-03-02] MEDS: amLODIPine Besylate 10 MG TABLET PO (08:16)
[2025-03-02] MEDS: Finasteride 5 MG TABLET PO (08:16)
[2025-03-02] MEDS: Sodium Bicarbonate 650 MG TABLET PO ×2 (08:16→14:55)
[2025-03-02] MEDS: Isosorbide Mononitrate 60 MG TAB.ER.24H PO (08:16)
[2025-03-02] MEDS: hydrALAZINE HCl 50 MG TABLET PO ×2 (08:16→14:55)
[2025-03-02] MEDS: 0.9 % Sodium Chloride Flush 3 ML SYRINGE IVFLUSH (08:17)
[2025-03-02 09:47] LABS: Anion Gap 18 (12-20); Blood Urea Nitrogen 104 mg/dL (9-16); Calcium 7.9 mg/dL (8.4-10.2); Carbon Dioxide 23 mmol/L (22-29); Chloride 103 mmol/L (96-108); Glucose Random 131 mg/dL (60-115); Potassium 4.3 mmol/L (3.3-5.1); Sodium 140 mmol/L (135-145)
[2025-03-02 09:50] LABS: Creatinine Clr Calc Pharmacy 9.1; Estimated Glomerular Filt Rate 6
[2025-03-02 11:02] LABS: Glucose, Whole Blood 197 mg/dL (60-115)
[2025-03-02] MEDS: Heparin Sodium,Porcine 5,000 UNIT/ML VIAL 5000 UNIT SUBCUT (11:22)
[2025-03-02] MEDS: Insulin Lispro 100 UNIT/ML 3 ML VIAL SUBCUT (11:22)
--- NOTE | 2025-03-02 12:21 | P.DS_ITS ---
DS: Providers Provider Date of Service: 03/02/25 Date of admission: 02/20/25 04:57 Date of discharge: 03/02/25 Primary care physician: Michelle Long MD Consults: 02/20/25 05:30 Consult to Nephrology Routine Consulting Provider: [facility] Reason for consultation: cr 7.30 02/20/25 05:59 Consult to Cardiology Routine Consulting Provider: [facility] Reason for consultation: New onset AFib and CHF Has provider been notified: No Consult to Infectious Diseases Routine Consulting Provider: [facility] Reason for consultation: Osteomyelitis, septic arthritis Has provider been notified: No 02/20/25 17:46 Consult to Wound Care Routine Reason for consultation: L great toe infection 02/24/25 10:34 Consult to Vascular Surgery Routine Consulting Provider: [facility] Reason for consultation: ampuated toe at an outside hospital Has provider been notified: No Attending physician on discharge: Anna Amaral Discharging clinician: Anna Amaral DS: Diagnosis Discharge Diagnosis (1) Staphylococcus aureus bacteremia: Status: Acute (2) CKD (chronic kidney disease) stage 4, GFR 15-29 ml/min: Status: Acute (3) Acute kidney injury superimposed on CKD: Status: Acute (4) Sepsis: Status: Acute DS: Summary Hospital Course Hospital Course: HPI:64 year male with a past medical history significant for stage I COPD, chronic respiratory failure on O2, WENDY s/p right BKA, HTN, a AFib on Xarelto, type 2 diabetes, just recently s/p left great toe amputation 3 weeks ago, who presented to the ED due to increased redness, swelling, pain at the amputation site as well as weakness, chills, body aches, cough, fever and shortness of breath for the past few days. The patient arrived at 83% on room air with improvement to 98% via NRb by EMS. The patient is very drowsy and unable to give a history at this time. History was obtained from the ED provider. Per ED note Patient comes to the emergency room via ambulance from home. According to EMS, patient has been complaining of cough, subjective fever, shortness of breath for couple of days, oxygen saturation was 83% on room air. Patient has history of COPD at home, oxygen dependent per patient. Does not know how many L. also, 3 weeks ago, patient had a left great toe amputation done. Patient states that the amputation site is extremely painful to touch, warm and swollen. Patient denies abdominal pain or urinary symptoms. Hospital course: 64 year male with a past medical history significant for stage I COPD, chronic respiratory failure on O2, WENDY, s/p right BKA, HTN, a AFib on Xarelto, type 2 diabetes, just recently s/p left great toe amputation 3 weeks ago on February 03 at [facility] by Dr. Gomez, here with infection at amputation site and found to have new AFIB with RVR, Heart failure Sepsis secondary to acute osteomyelitis/septic arthritis L foot, lytic changes at the area suggestive of OM, temp of 101, and wbc 14 cultures positive for MRSA,echo no vegetations repeat blood culture 02/21 1/ +, repeat blood cultures 02/23 negative at 48 hrs vascular consult --no intervention, discussed with nephrology in the light of advanced renal failure, recommended Marcelo catheter for long-term IV antibiotics, also discussed with infectious disease recommended for daptomycin for 6 weeks,cpk :13. Patient has his vascular appointment tomorrow, consider outpatient wound care. Acute on chronic hypoxic respiratory failure, new onset CHF, cardiorenal syndorome: chest imaging findings thought be likely due chf . Was on IV Lasix and changed to PO and now stopped d/t worsening renal function echo EF 40 to 45% nephrology recomended -hold lasix due to worsening renal function. Further Lasix use outpatient as per Nephro. Patient is still producing urine, not short of breath or any edema. Currently patient asymptomatic no shortness a breath cough or fever or leukocytosis case with this. Initially thought to question of AFib(based on EKG) but seen Cardiology EKG reviewed patient does not have afib on ekg , addition the [facility] notes does not show history of AFib. Confirm with patient and his denies any history of AFib either. Metabolic acidosis d/t renal failure, better bicab replacement UMAIR on CKD creatinine 7.3 from 2.83 2 months ago, but 5.3 on february 03 at [facility] now stable at 8-9 Nephrology following, currently recommended to Lasix, patient is still producing. Further management outpatient monitor BMP closely. Stage I COPD, no acute exacerbation, no acute exacerbatiobn, given steroid in ED, no indication for further steroid bronchodilators PRN Anemia secondary to CKD, Hgb 7.9: May benefit from outpatient Epogen, in addition Xarelto is hold further use of patiently as per patient vascular. Monitor CBC and further anemia workup outpatient HTN,continue norvasc, hydralzine, metoprolol. Type 2 diabetes, A15.7 dm-his fs mostly in 100-200 range : Discussed with the patient's , encouraged with sliding scale coverage .hold farxiga as per nephro.further use outpatient as per nephro. plan: Complete daptomycin end date will be April 07 2025. Hold atorvastatin until on daptomycin. Consider Monitor CBC, CMP, ESR, CRP, CPK Q weekly while on daptomycin. Patient is to follow out out patiently with PCP, Nephro, cardio, vascular and wound care also. dm-his fs mostly in 100-200 range : Discussed with the patient's , encouraged with sliding scale coverage .hold farxiga as per nephro.further use outpatient as per nephro. dm education given. Hba1c is 5.7 Further anemia workup outpatient, and Xarelto use as per vascular patient has appointment with her vascular doctor tomorrow.consider wound care follow up outpatient. Patient will be going home with [facility] PT. Assessment and plan discussed with the patient and his in detail length they both understand and in agreement with the above plan, time spent 40 minute, all question answered. Time Attestation Total time managing care of this patient today: 40 mintues. Discharge Coordination Time (in mins): 40 Quality: Safe Use of Opioids Does Pt have an Active Cancer Diagnosis on the Problem List?: No Quality: Stroke Does the patient have a stroke diagnosis?: No Physical Exam Vital Signs: Vital Signs: Last Vital Signs Temp 97.5 F 03/02/25 12:00 Pulse 64 03/02/25 12:00 Resp 14 03/02/25 12:00 BP 127/62 03/02/25 12:00 Pulse Ox 96 03/02/25 12:00 O2 Del Method Room Air 03/02/25 12:00 O2 Flow Rate 2 03/01/25 15:30 Oxygen Flow Rate 2 02/20/25 01:05 BMI result Body Mass Index 24.9 General: AO X 3, no acute distress Resp: CTA bilateral CVS: S1,S2,RRR GI: +BS, NT, no distention Skin: 02/24- similar. DS: Data Data Completed and Pending Labs on day of discharge: Laboratory Results - last 24 hr 03/01/25 03/01/25 03/01/25 15:58 18:06 19:50 Hgb 7.8 L Hct 24.5 L Hold Purple Top Sodium 139 Potassium 4.2 Chloride 101 Carbon Dioxide 23 Anion Gap 19 BUN 99 H Creatinine 9.32 H* Estim Creat Clear Calc 8.6 Estimated GFR 6 POC Glucose 105 255 H Random Glucose 189 H Calcium 7.7 L Magnesium 2.6 03/02/25 03/02/25 03/02/25 07:31 09:02 09:02 Hgb Hct Hold Purple Top SEE NOTE Sodium 140 Potassium 4.3 Chloride 103 Carbon Dioxide 23 Anion Gap 18 BUN 104 H Creatinine 8.81 H* Cancelled Estim Creat Clear Calc 9.1 Estimated GFR POC Glucose 88 Random Glucose Calcium Magnesium 03/02/25 03/02/25 03/02/25 09:02 09:02 10:57 Hgb Hct Hold Purple Top Sodium Potassium Chloride Carbon Dioxide Anion Gap BUN Creatinine Estim Creat Clear Calc Cancelled Estimated GFR 6 Cancelled POC Glucose 197 H Random Glucose 131 H Calcium 7.9 L Magnesium Imaging Chest x-ray: Radiologist's impression: ITS Impressions Renal Ultrasound 02/20/25 08:26 IMPRESSION: 1. Mildly complex bilateral renal cysts as described. Follow-up is recommended. 2. Possible small right pleural effusion. This could be confirmed with chest x-ray. chest ct: IMPRESSION: 1. Interstitial and airspace consolidation with bilateral pleural effusions, differential considerations noted Discharge Plan Discharge Anticipated Discharge Date/Time: 03/02/25 10:43 Patient Disposition: Home Health Service Discharge Diagnosis: Osteomyelitis of foot, MRSA bacteremia, advance renal disease Referrals: [facility] [Other] - 1 Week [facility] [Outside] - 1 Week Michelle Long MD [Primary Care Provider] - 1 Week Discharge Medications: New acetaminophen 325 mg Tablet 975 mg PO Q6H PRN (Reason: Pain, Mild 1-3,Fever,Headache) Qty: 20 0RF oxycodone 5 mg Tablet 5 mg PO Q6H PRN (Reason: Pain, Severe (Pain Scale 7-10)) Qty: 15 0RF Rx Instructions: Partial Fill upon patient request. daptomycin 500 mg Recon Soln 660 mg IV Q48H Qty: 1 0RF Rx Instructions: end date is 04/07/25 (DME) FreeStyle Lite Strips Strip Qty: 100 0RF Rx Instructions: Test four times a day or as directed. (DME) blood-glucose meter [FreeStyle Lite Meter] Kit Qty: 1 0RF Rx Instructions: As Directed alcohol swabs Pads, Medicated 1 pad TOPICAL QIDACHS Qty: 100 0RF Rx Instructions: Use four times a day or as directed. insulin lispro [Humalog KwikPen Insulin] 100 unit/mL insulin pen 0 sliding scale dose SUBCUT QIDACHS Qty: 15 0RF Rx Instructions: Blood Sugar: <150 - 0 units 151-200 - 2 units 201-250 - 4 units 251-300 - 6 units 301-350 - 8 units >350 - 10 units (DME) pen needle, diabetic 32 gauge x 1/4 needle Qty: 100 0RF Rx Instructions: Use four times a day or as directed. (DME) lancets [FreeStyle Lancets] 28 gauge misc Qty: 100 0RF Rx Instructions: Test four times a day or as directed. Continued Lokelma 10 gram powder in packet 10 g PO DAILY finasteride 5 mg tablet 5 mg PO DAILY amlodipine 10 mg tablet 10 mg PO DAILY tamsulosin 0.4 mg capsule 0.4 mg PO DAILY metoprolol succinate 100 mg tablet extended release 24 hr 100 mg PO DAILY aspirin 81 mg tablet,chewable 1 tab PO DAILY Incruse Ellipta 62.5 mcg/actuation blister with device 1 inh inhalation DAILY hydralazine 25 mg tablet 50 mg PO TID sodium bicarbonate 650 mg tablet 650 mg PO TID cholecalciferol (vitamin D3) 1,250 mcg (50,000 unit) capsule 1,250 mcg PO QWEEK Qty: 14 1RF Held dapagliflozin propanediol [Farxiga] 10 mg tablet 10 mg PO DAILY Hold Instructions: Resume on 03/09/25. atorvastatin 80 mg tablet 80 mg PO DAILY Hold Instructions: Resume on 04/07/25. Xarelto 2.5 mg tablet 2.5 mg PO BID Hold Instructions: Resume on 03/08/25. Discharge Orders: Discharge Order (Routine); Ordered 03/02/25 Ordered By: Anna Amaral Diet: Advance to usual diet Activity on Discharge: As tolerated Stand Alone Forms: Patient Portal Discharge page Print Language: Djiboutian Activity Restrictions/Additional Instructions: Topical Wound Care Recommendations: Turn and Reposition every 2 hours and as needed for patient comfort.? Use pillows or wedges to support off loading positions. Off Load all bony prominences with use of pillows and heel boots if needed.? Apply Preventative foams where needed. ? Monitor for incontinence and moisture control, use barrier creams when needed for prevention and treatment. Provide adequate and supplemental nutrition.? When applicable maintain blood glucose levels per Providers order. Left Foot - Cleanse with Betadine, cover with small piece of Durafiber to prior webspace cover with dry gauze ad wrap. Change every other day. Care Plan Goals: Complete daptomycin end date will be April 07 2025. Hold atorvastatin until on daptomycin. Consider Monitor CBC, CMP, ESR, CRP, CPK Q weekly while on daptomycin. Patient is to follow out out patiently with PCP, Nephro, cardio, vascular and wound care also. dm-his fs mostly in 100-200 range : Discussed with the patient's , enco uraged with sliding scale coverage .hold farxiga as per nephro.further use outpatient as per nephro. dm education given. Hba1c is 5.7 Further anemia workup outpatient, and Xarelto use as per vascular patient has appointment with her vascular doctor tomorrow.consider wound care follow up outpatient. Patient will be going home with [facility] PT. Health Concerns: As above. Plan of Treatment: As above. Assessment: As above.
--- NOTE | 2025-03-02 12:32 | W.MHC.F2F ---
Service Date Service Date: 03/02/25 Encounter Date of encounter: 03/02/25 Encounter: ckd , dm , osteomyelitis Reasons for Services Signs and symptoms assessed: Any discharge or fever or worsening foot pain Reason for senior care: wound care, diabetic teaching, monitoring of unstable blood sugar, medication management, medication treatment and teach disease management Reason for physical therapy: home safety and mobility, therapeutic exercises, restore joint function, gait/transfer training, assess need for DME, ADL training, energy conservation and other MD Overseeing Care: Michelle Long Homebound: Leaving the home is medically contraindicated at this time without the asist of a device and/or another person due th the listed conditions above and below. Reason homebound: weakness related to hospital stay Homebound supporting statement: Patient is generalised weak post hospitlisation and need help with going to appointments and labs draws, IV antibiotics, wound care, disease management as well as PT. Certification: Based on the above findings, I certify that this patient is confined to the home and needs intermittent senior care care, physical therapy and/or speech therapy, or continues to need occupational therapy. The patient is under my care, and I have initiated the establishment of the plan of care. The patient will be followed by a physician who will periodically review the plan of care. Time Spent With Patient Time: Total time managing care of this patient today ____ minutes.
--- NOTE | 2025-03-02 14:33 | MHC.CM.PN ---
IMM 03/02/25 Per MD rounds patient is ready to discharge today. PT recommendation is STR. Dr Amaral and T/W met with Patient+ Spouse to discuss the discharge plan. They refuse to discharge to a STR due to poor outcomes in the past. [facility] performed the teach with pts . She demonstrated competency to perform infusion therapy. [facility] has been notified of the discharge today. Patient transported via BLS after had difficulty getting pt into care.
[2025-03-02] MEDS: DAPTOMYCIN IV (14:55)
[2025-03-02] MEDS: SODIUM CHLORIDE 0.9% IV (14:55)
== END 2025-03-02 16:25 | disposition home health service (06) | DRG 564 ==
LOC: HO.ED 02:20 → HO.EDOVER 05:09 → HO.IMC 13:43 → HO.S3 02-27 15:40
PROVIDERS: Internal Medicine; Nurse Practitioner Family; Physician Assistant; Student in an Organized Health Care Education/Training Program; Admitting Provider Student in an Organized Health Care Education/Training Program; Emergency Provider Emergency Medicine; PCP Internal Medicine; Visit Provider Internal Medicine
PROC: 0JH63XZ Insertion of Tunneled Vascular Access Device into Chest Subcutaneous Tissue and Fascia, Percutaneous Approach (ICD-10-PCS; principal; 2025-03-01 14:00)
DX: T87.44 Infection of amputation stump, left lower extremity (principal); I50.21 Acute systolic (congestive) heart failure; J96.21 Acute and chronic respiratory failure with hypoxia; N17.0 Acute kidney failure with tubular necrosis; I13.0 Hypertensive heart and chronic kidney disease with heart failure and stage 1 through stage 4 chronic kidney disease, or unspecified chronic kidney disease; M86.172 Other acute osteomyelitis, left ankle and foot; N18.4 Chronic kidney disease, stage 4 (severe); E87.21 Acute metabolic acidosis; M00.072 Staphylococcal arthritis, left ankle and foot; B95.62 Methicillin resistant Staphylococcus aureus infection as the cause of diseases classified elsewhere; E11.22 Type 2 diabetes mellitus with diabetic chronic kidney disease; G47.33 Obstructive sleep apnea (adult) (pediatric); Z89.511 Acquired absence of right leg below knee; J44.9 Chronic obstructive pulmonary disease, unspecified; Z99.81 Dependence on supplemental oxygen; D63.1 Anemia in chronic kidney disease; Z20.822 Contact with and (suspected) exposure to COVID-19; Z79.4 Long term (current) use of insulin; Z79.82 Long term (current) use of aspirin; Z79.899 Other long term (current) drug therapy
CPT/HCPCS: 0241U; 36415; 36558; 71045; 71250; 73620; 76775; 80048; 80051; 80076; 80202; 81001; 82550; 82565; 82803; 82947; 83036; 83540; 83605; 83735; 83880; 84100; 84443; 85014; 85018; 85025; 85027; 86160; 86850; 86900; 86901; 87040; 87077; 87147; 87186; 87205; 93005; 93306; 97162; 97530; 99285; J0690; J0878; J1642; J1644; J1938; J2003; J2543; J2919; J3010; J3370; J3475; Q5106; Q9957

== ENCOUNTER → 2025-02-20 01:28 | Outpatient (BNV) | payer MEDICARE, SELFPAY | PROVIDERS: Emergency Provider Emergency Medicine; Visit Provider Radiology Diagnostic Radiology | DX: J90 Pleural effusion, not elsewhere classified (principal); N18.4 Chronic kidney disease, stage 4 (severe); N17.9 Acute kidney failure, unspecified; R91.8 Other nonspecific abnormal finding of lung field; M89.572 Osteolysis, left ankle and foot; Z89.412 Acquired absence of left great toe; T87.44 Infection of amputation stump, left lower extremity | CPT/HCPCS: 71045; 71250; 73620; 76775 ==

== ENCOUNTER 2025-02-20 04:57 | Outpatient (BNV) | payer OTHER, SELFPAY | END 2025-03-01 15:34 | PROVIDERS: Admitting Provider Student in an Organized Health Care Education/Training Program; Emergency Provider Emergency Medicine; PCP Internal Medicine; Visit Provider Student in an Organized Health Care Education/Training Program | DX: Z45.2 Encounter for adjustment and management of vascular access device (principal) | CPT/HCPCS: 36558; 76937; 77001 ==

== ENCOUNTER → 2025-02-20 04:57 | Outpatient (BNV) | payer MEDICARE, SELFPAY | PROVIDERS: Admitting Provider Student in an Organized Health Care Education/Training Program; Emergency Provider Emergency Medicine; Visit Provider Internal Medicine Cardiovascular Disease | DX: N17.9 Acute kidney failure, unspecified (principal); N18.9 Chronic kidney disease, unspecified; I50.9 Heart failure, unspecified | CPT/HCPCS: 99223 ==

== ENCOUNTER → 2025-02-20 04:57 | Outpatient (BNV) | payer OTHER, SELFPAY | PROVIDERS: Admitting Provider Student in an Organized Health Care Education/Training Program; Emergency Provider Emergency Medicine; PCP Internal Medicine; Visit Provider Internal Medicine | DX: N18.4 Chronic kidney disease, stage 4 (severe) (principal); N17.9 Acute kidney failure, unspecified; R78.81 Bacteremia; B95.62 Methicillin resistant Staphylococcus aureus infection as the cause of diseases classified elsewhere | CPT/HCPCS: 99232 ==

== ENCOUNTER → 2025-02-20 04:57 | Outpatient (BNV) | payer MEDICARE, SELFPAY | PROVIDERS: Admitting Provider Student in an Organized Health Care Education/Training Program; Emergency Provider Emergency Medicine; Visit Provider Nurse Practitioner Family | DX: N17.9 Acute kidney failure, unspecified (principal); N18.9 Chronic kidney disease, unspecified; A41.9 Sepsis, unspecified organism | CPT/HCPCS: 99222 ==

== ENCOUNTER → 2025-02-20 04:57 | Outpatient (BNV) | payer OTHER, SELFPAY | PROVIDERS: Admitting Provider Student in an Organized Health Care Education/Training Program; Emergency Provider Emergency Medicine; PCP Internal Medicine; Visit Provider Surgery Vascular Surgery | DX: T87.89 Other complications of amputation stump (principal) | CPT/HCPCS: 99222 ==

== ENCOUNTER → 2025-02-20 04:57 | Outpatient (BNV) | payer MEDICARE, SELFPAY | PROVIDERS: Admitting Provider Student in an Organized Health Care Education/Training Program; Emergency Provider Emergency Medicine; Visit Provider Physician Assistant | DX: R78.81 Bacteremia (principal); A41.9 Sepsis, unspecified organism; B95.61 Methicillin susceptible Staphylococcus aureus infection as the cause of diseases classified elsewhere; N18.4 Chronic kidney disease, stage 4 (severe); N17.9 Acute kidney failure, unspecified | CPT/HCPCS: 99223; 99231; 99232; 99499 ==

== ENCOUNTER 2025-03-03 14:58 | Outpatient (REF) | payer OTHER, SELFPAY ==
[2025-03-03 15:00] LABS: MANUAL DIFF FLAG NO
--- OUTSIDE RECORDS SUMMARY | 2025-03-03 15:00 | XMS_ITS | Encounter Summary ---
Author Organization [facility] Address [address] [place] [address] Care Team Providers Care Manager Council Name Role Phone Travis Au MD Primary Care Provider [phone] Encounter Details Date Type Department Care Team (Latest Contact Info) Description 11/01/2024 Lab Requisition [facility] - Main Lab [address] [place] [address] Brandon Mckeon MD [address] [place] [address] Type 2 diabetes mellitus without [...] LAB CHEMISTRY METHOD 11/02/2024 12:37 PM EST [facility] Potassium 5.1 3.5 - 5.5 mmol/L LAB CHEMISTRY METHOD 11/02/2024 12:37 PM [facility] Chloride 107 96 - 110 mmol/L LAB CHEMISTRY METHOD 11/02/2024 12:37 PM [facility] CO2 21 21 - 32 mmol/L LAB CHEMISTRY METHOD 11/02/2024 12:37 PM [facility] Anion Gap 6 3 - 11 LAB CHEMISTRY METHOD 11/02/2024 12:37 PM [facility] Glucose 93 70 - 100 mg/dL LAB CHEMISTRY METHOD 11/02/2024 12:37 PM [facility] BUN 54(H) 5 - 25 mg/dL LAB CHEMISTRY METHOD 11/02/2024 12:37 PM [facility] Creatinine 3.63(H) 0.70 - 1.30 mg/dL LAB CHEMISTRY METHOD 11/02/2024 12:37 PM [facility] eGFR 18(L) >=60 mL/min/1. 73m2 LAB CHEMISTRY METHOD 11/02/2024 12:37 PM [facility] Comment:Calculation based on the??Chronic Kidney Disease Epidemiology Collaboration (CKD-EPI) equation refit??without adjustment for race. BUN/Creatinine Ratio 14.9 LAB CHEMISTRY METHOD 11/02/2024 12:37 PM [facility] Calcium 8.5 8.5 - 10.5 mg/dL LAB CHEMISTRY METHOD 11/02/2024 12:37 PM [facility] Blood Venous blood specimen / Unknown Venipuncture / Unknown 11/02/2024 7:04 AM EST 11/02/2024 11:13 AM EST us Brandon Mckeon MD LAB BLOOD ORDERABLES Final Resu lt [facility] [address] [place] [address], [place] [phone] * (ABNORMAL) Complete blood count (11/02/2024 7:04 AM EST) [facility] WBC 8.5 4.8 - 10.8 K/mcL LAB HEMETOLOGY METHOD 11/02/2024 12:23 PM [facility] RBC 3.10(L) 4.50 - 5.50 M/mcL LAB HEMETOLOGY METHOD 11/02/2024 12:23 PM [facility] Hemoglobin 8.8(L) 13.5 - 17.5 g/dL LAB HEMETOLOGY METHOD 11/02/2024 12:23 PM [facility] Hematocrit 28.2(L) 42.0 - 54.0 % LAB HEMETOLOGY METHOD 11/02/2024 12:23 PM [facility] MCV 91.9 79.0 - 98.0 FL LAB HEMETOLOGY METHOD 11/02/2024 12:23 PM [facility] MCH 28.7 27.0 - 32.0 pcg LAB HEMETOLOGY METHOD 11/02/2024 12:23 PM [facility] MCHC 31.2(L) 32.0 - 37.0 g/dL LAB HEMETOLOGY METHOD 11/02/2024 12:23 PM [facility] RDW 13.6 11.0 - 15.0 % LAB HEMETOLOGY METHOD 11/02/2024 12:23 PM [facility] Platelets 382 130 - 400 K/mcL LAB HEMETOLOGY METHOD 11/02/2024 12:23 PM [facility] MPV 10.3 7.0 - 11.0 FL LAB HEMETOLOGY METHOD 11/02/2024 12:23 PM [facility] NRBC 0.0 <1.0 % LAB HEMETOLOGY METHOD 11/02/2024 12:23 PM [facility] NRBC Absolute 0.00 <0.10 K/mcL LAB HEMETOLOGY METHOD 11/02/2024 12:23 PM EST [facility] Blood Venous blood specimen / Unknown Venipuncture / Unknown 11/02/2024 7:04 AM EST 11/02/2024 11:13 AM EST us Brandon Mckeon MD LAB BLOOD ORDERABLES Final Resu lt [facility] [address] [place] [address], documented in this encounter Visit Diagnoses Diagnosis Type 2 diabetes mellitus without complications (CMS/HCC V24, CMS/HCC V28) documented in this encounter Care Teams Manager Council Relationship Specialty Start Date End Date Travis Au MD [address] [place] [address], [phone] PCP - General Family Medicine 08/22/24 documented as of this encounter
[2025-03-03 15:10] LABS: Basophils Absolute Auto 0.1 X10*3/uL (0.0-0.2); Basophils Percent Auto 0.8 % (0-2); Eosinophils Absolute Auto 0.4 X10*3/uL (0.0-0.4); Eosinophils Percent Auto 2.5 % (0-4); Hematocrit 23.6 % (42.0-52.0); Hemoglobin 7.6 g/dl (14.0-18.0); Imm Gran Abs Auto 0.26 X10*3/uL (0.00-0.03); Imm Gran Pct Auto 1.8 % (0.0-0.4); Lymphocytes Absolute Auto 1.8 X10*3/uL (1.2-4.9); Lymphocytes Percent Auto 12.5 % (20-40); Mean Corpuscular HGB Conc 32.2 g/dl (31.0-36.0); Mean Corpuscular Hemoglobin 29.3 pg (27.0-33.0); Mean Corpuscular Volume 91.1 fL (80.0-98.0); Mean Platelet Volume 10.5 fL (9.4-12.4); Monocytes Absolute Auto 0.8 X10*3/uL (0.1-1.2); Monocytes Percent Auto 5.8 % (2-11); Neutrophils Absolute Auto 10.8 x10*3/uL (2.0-8.3); Neutrophils Percent Auto 76.6 % (45-73); Platelet Count 303 X10*3/uL (160-400); Red Blood Count 2.59 X10*6/uL (4.60-5.80); Red Cell Distribution Width 14.3 % (11.0-16.0); White Blood Count 14.1 X10*3/uL (4.8-10.8)
[2025-03-03 16:09] LABS: Alanine Aminotransferase < 6 U/L (0-40); Albumin Level 2.6 g/dL (3.5-5.0); Anion Gap 16 (12-20); Aspartate Amino Transferase 16 U/L (5-37); Bilirubin Total 0.2 mg/dL (0.0-1.0); Blood Urea Nitrogen 97 mg/dL (9-16); C Reactive Protein 1.99 mg/dL (< or = 0.50); Calcium 8.2 mg/dL (8.4-10.2); Carbon Dioxide 23 mmol/L (22-29); Chloride 104 mmol/L (96-108); Estimated Glomerular Filt Rate 6; Glucose Random 94 mg/dL (60-115); Sodium 139 mmol/L (135-145); Total Protein 6.5 g/dL (6.5-8.0)
[2025-03-03 17:08] LABS: Alkaline Phosphatase 79 U/L (39-117)
== END 2025-03-03 14:59 | disposition home or self-care (01) ==
LOC: HO.HVNA 14:58
PROVIDERS: Visit Provider Internal Medicine
DX: M86.9 Osteomyelitis, unspecified (principal)
CPT/HCPCS: 36415; 80053; 82550; 85025; 86140

== ENCOUNTER 2025-03-09 07:51 | Outpatient (AMB) | payer OTHER, SELFPAY ==
--- OUTSIDE RECORDS SUMMARY | 2025-03-09 07:54 | XMS_ITS | Encounter Summary ---
Author Organization [facility] Address [address] [place] [address] Care Team Providers Care Course Instructor Name Role Phone Travis Au MD Primary Care Provider Encounter Details Date Type Department Care Team (Latest Contact Info) Description 11/01/2024 Lab Requisition [facility] - Main Lab [address] [place] [address] Brandon Mckeon MD [address] [place] [address] Type 2 diabetes mellitus without [...] LAB CHEMISTRY METHOD 11/02/2024 12:37 PM EST [facility] Potassium 5.1 3.5 - 5.5 mmol/L LAB CHEMISTRY METHOD 11/02/2024 12:37 PM [facility] Chloride 107 96 - 110 mmol/L LAB CHEMISTRY METHOD 11/02/2024 12:37 PM [facility] CO2 21 21 - 32 mmol/L LAB CHEMISTRY METHOD 11/02/2024 12:37 PM [facility] Anion Gap 6 3 - 11 LAB CHEMISTRY METHOD 11/02/2024 12:37 PM [facility] Glucose 93 70 - 100 mg/dL LAB CHEMISTRY METHOD 11/02/2024 12:37 PM [facility] BUN 54(H) 5 - 25 mg/dL LAB CHEMISTRY METHOD 11/02/2024 12:37 PM [facility] Creatinine 3.63(H) 0.70 - 1.30 mg/dL LAB CHEMISTRY METHOD 11/02/2024 12:37 PM [facility] eGFR 18(L) >=60 mL/min/1. 73m2 LAB CHEMISTRY METHOD 11/02/2024 12:37 PM [facility] Comment:Calculation based on the??Chronic Kidney Disease Epidemiology Collaboration (CKD-EPI) equation refit??without adjustment for race. BUN/Creatinine Ratio 14.9 LAB CHEMISTRY METHOD 11/02/2024 12:37 PM [facility] Calcium 8.5 8.5 - 10.5 mg/dL LAB CHEMISTRY METHOD 11/02/2024 12:37 PM [facility] Blood Venous blood specimen / Unknown Venipuncture / Unknown 11/02/2024 7:04 AM EST 11/02/2024 11:13 AM EST us Brandon Mckeon MD LAB BLOOD ORDERABLES Final Resu lt [facility] [address] [place] [address], [place] [phone] * (ABNORMAL) Complete blood count (11/02/2024 7:04 AM EST) [facility] WBC 8.5 4.8 - 10.8 K/mcL LAB HEMETOLOGY METHOD 11/02/2024 12:23 PM [facility] RBC 3.10(L) 4.50 - 5.50 M/mcL LAB HEMETOLOGY METHOD 11/02/2024 12:23 PM [facility] Hemoglobin 8.8(L) 13.5 - 17.5 g/dL LAB HEMETOLOGY METHOD 11/02/2024 12:23 PM [facility] Hematocrit 28.2(L) 42.0 - 54.0 % LAB HEMETOLOGY METHOD 11/02/2024 12:23 PM [facility] MCV 91.9 79.0 - 98.0 FL LAB HEMETOLOGY METHOD 11/02/2024 12:23 PM [facility] MCH 28.7 27.0 - 32.0 pcg LAB HEMETOLOGY METHOD 11/02/2024 12:23 PM [facility] MCHC 31.2(L) 32.0 - 37.0 g/dL LAB HEMETOLOGY METHOD 11/02/2024 12:23 PM [facility] RDW 13.6 11.0 - 15.0 % LAB HEMETOLOGY METHOD 11/02/2024 12:23 PM [facility] Platelets 382 130 - 400 K/mcL LAB HEMETOLOGY METHOD 11/02/2024 12:23 PM [facility] MPV 10.3 7.0 - 11.0 FL LAB HEMETOLOGY METHOD 11/02/2024 12:23 PM [facility] NRBC 0.0 <1.0 % LAB HEMETOLOGY METHOD 11/02/2024 12:23 PM [facility] NRBC Absolute 0.00 <0.10 K/mcL LAB HEMETOLOGY METHOD 11/02/2024 12:23 PM EST [facility] Blood Venous blood specimen / Unknown Venipuncture / Unknown 11/02/2024 7:04 AM EST 11/02/2024 11:13 AM EST us Brandon Mckeon MD LAB BLOOD ORDERABLES Final Resu lt [facility] [address] [place] [address], documented in this encounter Visit Diagnoses Diagnosis Type 2 diabetes mellitus without complications (CMS/HCC V24, CMS/HCC V28) documented in this encounter Care Teams Course Instructor Relationship Specialty Start Date End Date Travis Au MD [address] [place] [address], [phone] PCP - General Family Medicine 08/22/24 documented as of this encounter
[2025-03-09 08:24] VITALS: BP 128/60; PULSE 72
--- NOTE | 2025-03-09 08:24 | MHC.OFFVIS ---
Vital Signs 03/09/25 08:24 Height 6 ft BP 128/60 Blood Pressure Location Lt brachial Position Sitting Pulse 72 Pulse Source Monitor Intake Visit Reasons: f/up-per KM Sensitometrist Required: No Allergies morphine Allergy (Verified 03/09/25 08:27) Hallucinations bupropion Adverse Reaction (Verified 03/09/25 08:27) Hallucinations Medication List - Last Reconciled 03/09/25 by DANIEL Morin acetaminophen 975 mg (3 x 325 mg) PO Q6H PRN alcohol swabs 1 pad topical QIDACHS amlodipine 10 mg PO DAILY aspirin 1 tab PO DAILY atorvastatin 80 mg PO DAILY blood sugar diagnostic (FreeStyle Lite Strips) Test four times a day or as directed. blood-glucose meter (FreeStyle Lite Meter kit) As Directed dapagliflozin propanediol (Farxiga) 10 mg PO DAILY daptomycin 660 mg IV Q48H finasteride 5 mg PO DAILY hydralazine 50 mg PO TID insulin lispro (Humalog KwikPen (U-100) Insulin) Blood Sugar: <150 - 0 units 151-200 - 2 units 201-250 - 4 units 251-300 - 6 units 301-350 - 8 units >350 - 10 units lancets (FreeStyle Lancets) Test four times a day or as directed. metoprolol succinate ER 100 mg PO DAILY oxycodone 5 mg PO Q6H PRN pen needle, diabetic Use four times a day or as directed. rivaroxaban (Xarelto) 2.5 mg PO BID sodium bicarbonate 650 mg PO TID sodium zirconium cyclosilicate (Lokelma) 10 grams PO DAILY tamsulosin 0.4 mg PO DAILY umeclidinium 62.5 mcg/actuation (Incruse Ellipta) 1 inh inhalation DAILY HPI HPI f/up-per KM: Details: Renato is a 64-year-old male with past medical history of diabetes, hyperlipidemia, CKD, COPD, right BKA, who recently had left great toe amputated and was [place] [facility] [place] with increasing redness and swelling of his amputation site as well as fever chills and body aches. He was hypoxic on admission and treated for acute on chronic respiratory failure, new Congestive heart failure. His echocardiogram showed EF 40-45%. It was initially given diuretics then had acute on chronic kidney disease and further diuretics were held. He was initially thought to have atrial fibrillation but EKG showed sinus rhythm with frequent PACs. He had been on Xarelto which was held due to anemia, likely anemia of chronic disease. On discharge his hemoglobin was 7.6, creatinine 8.72. He was discharged with antibiotics and to follow with [place] [facility] [place] as well as Dr. Ruiz for Nephrology. Today he reports that he is having significant discomfort in his left foot. He is visibly uncomfortable during my examination. His daughter is present and assisting with Turkish translation at their request. She tells me that he is scheduled for debridement of his foot tomorrow to help remove further infection. He denies having chest discomfort, concerning shortness of breath, heart palpitations. No PND, orthopnea. No lightheadedness, presyncope, syncope. He has been doing only very light activities. He is currently in a wheelchair and not able to ambulate well on his left foot. He has a prosthetic on his right lower extremity. They report compliance with meds but not entirely clear on what meds he takes. No known cardiac history prior to his recent hospitalization. [facility] Medical History Urinary urgency Urinary tract infection Urinary hesitancy Tubular adenoma of colon Smoker Seborrheic keratoses SND (sensorineural deafness) Right BKA infection Peripheral vascular disease WENDY (obstructive sleep apnea) Microalbuminuria Lung nodule seen on imaging study Lightheadedness Latent tuberculosis LVH (left ventricular hypertrophy) Abnormal PFTs Hyponatremia Hypertensive retinopathy of both eyes Hyperkalemia Hepatitis C Hearing loss of both ears Hypertension Erectile dysfunction Cataract CKD (chronic kidney disease) Bladder wall thickening BPH (benign prostatic hyperplasia) Anticoagulated Anemia Peripheral neuropathy Diabetes mellitus, type II CVA (cerebral vascular accident) Adrenal nodule Kidney cysts Surgical History Hx of right BKA Family History Brother Diabetes Mother Diabetes Father Diabetes Social History Household Members: Spouse Housing: Apartment Do you presently have visiting nurse or other home services: Yes Alcohol intake: never Patient Tobacco Use Status: Never used Tobacco service: No Review of Systems Const All systems reviewed & are unremarkable except as noted in HPI and below ENT Denies dizziness Card Denies chest pain, Denies chest pain at rest, Denies chest pain with activity, Denies rapid heart rate, Denies pedal edema, Denies edema, Denies leg edema, Denies lightheadedness, Denies palpitations, Denies dyspnea, Denies dyspnea on exertion and Denies orthopnea Resp Denies cough, Denies dyspnea and Denies dyspnea on exertion GI Denies hematochezia and Denies change in stool character Musc Details: Pain left foot Reports abnormal gait, Denies limited range of motion, Denies muscle cramps, Denies muscle weakness, Denies numbness, Denies radiating pain into limb, Denies stiffness and Denies tingling Neuro Reports abnormal gait, Denies dizziness, Denies numbness and Denies tingling Endo Denies palpitations Physical Exam Vital Signs: Last Vital Signs Pulse 72 03/09/25 08:24 BP 128/60 03/09/25 08:24 Const Other: visably uncomfortable, sitting in wheelchair General: cooperative and no acute distress Orientation/consciousness: patient oriented x3 Neck Neck: Yes normal visual inspection Resp Effort & Inspection: normal respiratory effort Auscultation: clear to auscultation bilaterally, no rales, no rhonchi and no wheezes Cardio Rate: regular rate Rhythm: regular rhythm Heart sounds: S1 normal heart sound present, S2 normal heart sound present, no murmurs and no rubs Neuro General: patient oriented x3 Extrem Other: dressing on left foot. recent great toe amputation Psych Appearance: grossly normal Mental Status: mental status grossly normal Speech and movement: Normal speech and movement present Office Procedures EKG Details: Today, read by me, sinus rhythm, rate 72, Qtc 433ms [id number], Complete Assessment & Plan Assessment & Plan (1) New onset of congestive heart failure: Code(s): I50.9 - Heart failure, unspecified Category: Medical Plan: New onset Congestive heart failure noted during recent hospitalization with acute on chronic respiratory failure/COPD. He was initially given IV diuretics and had a worsening of his kidney function. His creatinine kennedy to as high as 9.63. It was down to 8.72 on discharge. Diuretics were held and he is following with Dr. Sampson for Nephrology. His echocardiogram did show EF 40-45%, moderate LVH, abnormal diastolic function, elevated filling pressures. At present unclear cause of his reduced EF. He will eventually need ischemic evaluation. He does not appear fluid overloaded on exam. Unable to use Cecilio/Arb due to CKD. He is on metoprolol XL and Farxiga for neurohormonal modulation. Signs and symptoms of heart failure reviewed with him. Continue to follow with Nephrology. (2) Cardiomyopathy: Code(s): I42.9 - Cardiomyopathy, unspecified Category: Medical Plan: Finding of cardiomyopathy EF 40-45%. He does have moderate LVH. It may be related to hypertension however ischemic eval will need to be done when appropriate. Will hold off at this time as he is being treated for bacteremia, osteomyelitis and has significant anemia with hematocrit 23.6. He has no anginal symptoms at this time but is sedentary. Continue metoprolol XL and Farxiga. Continue aspirin, hydralazine, amlodipine, atorvastatin. (3) Staphylococcus aureus bacteremia: Code(s): R78.81 - Bacteremia; B95.61 - Methicillin susceptible Staphylococcus aureus infection as the cause of diseases classified elsewhere Category: Medical Plan: Echo did not show evidence of vegetations. (4) Anemia in chronic kidney disease (CKD): Code(s): N18.9 - Chronic kidney disease, unspecified; D63.1 - Anemia in chronic kidney disease Category: Medical Qualifiers: Chronic kidney disease stage: stage 4 (GFR 15-29) Qualified Code(s): N18.4 - Chronic kidney disease, stage 4 (severe); D63.1 - Anemia in chronic kidney disease Plan: Significant anemia, no signs of bleeding. He was on Xarelto, likely due to PVD history which is now held. Anemia is likely related to chronic disease, CKD. Follows with Dr. Ruiz (5) CKD (chronic kidney disease) stage 4, GFR 15-29 ml/min: Code(s): N18.4 - Chronic kidney disease, stage 4 (severe) Category: Medical Plan: Following with Dr. Ruiz, nephrology (6) Acute osteomyelitis of foot: Code(s): M86.179 - Other acute osteomyelitis, unspecified ankle and foot Category: Medical Plan: Following with Dr. Gomez at [facility]. They tell me he is having further debridement tomorrow. (7) Hospital discharge follow-up: Code(s): Z09 - Encounter for follow-up examination after completed treatment for conditions other than malignant neoplasm Category: Medical Plan: Discharge summary reviewed, cardiology notes reviewed. Plan I discussed with the patient the implications of his irregular heartbeat, confirming no atrial fibrillation was identified. I explained the risk-benefit of using diuretics given existing renal conditions and emphasized consultation with Dr. Sampson on kidney function management. We discussed the findings of his echocardiogram which showed reduced pumping power and the use of Metoprolol Farxiga to help strenghten his heart. Going forward he will eventually need a nuclear stress test to evaluate for ischemia. It will be postponed at this time due to active infection, anemia of chonic disease. Patient Instructions: - Elevate the leg to reduce pain and swelling. - Continue prescribed medications: metoprolol, aspirin, amlodipine, hydralazine. - Monitor for signs of increased fluid retention or worsening infection. - Attend all scheduled follow-up appointments. - Seek immediate care for significant breathing issues or new onset of fever. Patient was informed and verbally consented to the use of an ambient scribe for clinic note documentation during this visit. Visit time spent on chart review, interview, assessment, orders, documentation. Coding Level of Care Code Est Pt Level 4 (18494) Complex EM visit Add On G2211 Diagnoses New onset of congestive heart failure I50.9 Cardiomyopathy I42.9 Staphylococcus aureus bacteremia R78.81; B95.61 Anemia in stage 4 chronic kidney disease N18.4; D63.1 Chronic kidney disease stage: stage 4 (GFR 15-29) CKD (chronic kidney disease) stage 4, GFR 15-29 ml/min N18.4 Acute osteomyelitis of foot M86.179 Hospital discharge follow-up Z09 CPT Codes EKG - CPT: [id number], Complete ([id number]) Time Spent (min) 36
== END 2025-03-09 09:03 | disposition home or self-care (01) ==
LOC: HO.HCS 07:51
PROVIDERS: PCP Internal Medicine; Visit Provider Nurse Practitioner Family
DX: I50.9 Heart failure, unspecified (principal); I42.9 Cardiomyopathy, unspecified; R78.81 Bacteremia; B95.61 Methicillin susceptible Staphylococcus aureus infection as the cause of diseases classified elsewhere; N18.4 Chronic kidney disease, stage 4 (severe); D63.1 Anemia in chronic kidney disease; M86.179 Other acute osteomyelitis, unspecified ankle and foot; Z09 Encounter for follow-up examination after completed treatment for conditions other than malignant neoplasm
CPT/HCPCS: 99214; G2211

== ENCOUNTER → 2025-03-09 07:51 | Outpatient (BNVA) | payer OTHER, SELFPAY | PROVIDERS: PCP Internal Medicine; Visit Provider Nurse Practitioner Family | DX: Z09 Encounter for follow-up examination after completed treatment for conditions other than malignant neoplasm (principal); I11.0 Hypertensive heart disease with heart failure; I50.9 Heart failure, unspecified; I42.9 Cardiomyopathy, unspecified; N18.4 Chronic kidney disease, stage 4 (severe); D63.1 Anemia in chronic kidney disease; M86.672 Other chronic osteomyelitis, left ankle and foot; R78.81 Bacteremia; B95.61 Methicillin susceptible Staphylococcus aureus infection as the cause of diseases classified elsewhere; Z89.511 Acquired absence of right leg below knee; Z99.3 Dependence on wheelchair | CPT/HCPCS: 93005; 99212 ==

== ENCOUNTER 2025-03-24 10:50 | Outpatient (AMB) | payer OTHER, SELFPAY ==
--- OUTSIDE RECORDS SUMMARY | 2025-03-24 11:16 | XMS_ITS | Encounter Summary ---
Author Organization [facility] Address [address] [place] [address] Care Team Providers Care Sinter Feeder Name Role Phone Travis Au MD Primary Care Provider [phone] Encounter Details Date Type Department Care Team (Latest Contact Info) Description 11/01/[address] [facility] - Main Lab [address] [place] [address] Brandon Mckeon MD [address] [place] [address] Type 2 diabetes mellitus without [...] LAB CHEMISTRY METHOD 11/02/2024 12:37 PM EST [facility] Potassium 5.1 3.5 - 5.5 mmol/L LAB CHEMISTRY METHOD 11/02/2024 12:37 PM [facility] Chloride 107 96 - 110 mmol/L LAB CHEMISTRY METHOD 11/02/2024 12:37 PM [facility] CO2 21 21 - 32 mmol/L LAB CHEMISTRY METHOD 11/02/2024 12:37 PM [facility] Anion Gap 6 3 - 11 LAB CHEMISTRY METHOD 11/02/2024 12:37 PM [facility] Glucose 93 70 - 100 mg/dL LAB CHEMISTRY METHOD 11/02/2024 12:37 PM [facility] BUN 54(H) 5 - 25 mg/dL LAB CHEMISTRY METHOD 11/02/2024 12:37 PM [facility] Creatinine 3.63(H) 0.70 - 1.30 mg/dL LAB CHEMISTRY METHOD 11/02/2024 12:37 PM [facility] eGFR 18(L) >=60 mL/min/1. 73m2 LAB CHEMISTRY METHOD 11/02/2024 12:37 PM [facility] Comment:Calculation based on the Chronic Kidney Disease Epidemiology Collaboration (CKD-EPI) equation refit without adjustment for race. BUN/Creatinine Ratio 14.9 LAB CHEMISTRY METHOD 11/02/2024 12:37 PM [facility] Calcium 8.5 8.5 - 10.5 mg/dL LAB CHEMISTRY METHOD 11/02/2024 12:37 PM [facility] Blood Venous blood specimen / Unknown Venipuncture / Unknown 11/02/2024 7:04 AM EST 11/02/2024 11:13 AM EST us Brandon Mckeon MD LAB BLOOD ORDERABLES Final Resu lt [facility] [address] [place] [address], [place] [phone] * (ABNORMAL) Complete blood count (11/02/2024 7:04 AM EST) [facility] WBC 8.5 4.8 - 10.8 K/mcL LAB HEMETOLOGY METHOD 11/02/2024 12:23 PM [facility] RBC 3.10(L) 4.50 - 5.50 M/mcL LAB HEMETOLOGY METHOD 11/02/2024 12:23 PM [facility] Hemoglobin 8.8(L) 13.5 - 17.5 g/dL LAB HEMETOLOGY METHOD 11/02/2024 12:23 PM [facility] Hematocrit 28.2(L) 42.0 - 54.0 % LAB HEMETOLOGY METHOD 11/02/2024 12:23 PM [facility] MCV 91.9 79.0 - 98.0 FL LAB HEMETOLOGY METHOD 11/02/2024 12:23 PM [facility] MCH 28.7 27.0 - 32.0 pcg LAB HEMETOLOGY METHOD 11/02/2024 12:23 PM [facility] MCHC 31.2(L) 32.0 - 37.0 g/dL LAB HEMETOLOGY METHOD 11/02/2024 12:23 PM [facility] RDW 13.6 11.0 - 15.0 % LAB HEMETOLOGY METHOD 11/02/2024 12:23 PM [facility] Platelets 382 130 - 400 K/mcL LAB HEMETOLOGY METHOD 11/02/2024 12:23 PM [facility] MPV 10.3 7.0 - 11.0 FL LAB HEMETOLOGY METHOD 11/02/2024 12:23 PM [facility] NRBC 0.0 <1.0 % LAB HEMETOLOGY METHOD 11/02/2024 12:23 PM [facility] NRBC Absolute 0.00 <0.10 K/mcL LAB HEMETOLOGY METHOD 11/02/2024 12:23 PM EST [facility] Blood Venous blood specimen / Unknown Venipuncture / Unknown 11/02/2024 7:04 AM EST 11/02/2024 11:13 AM EST us Brandon Mckeon MD LAB BLOOD ORDERABLES Final Resu lt [facility] [address] [place] [address], documented in this encounter Visit Diagnoses Diagnosis Type 2 diabetes mellitus without complications (CMS/HCC V24, CMS/HCC V28) documented in this encounter Care Teams Sinter Feeder Relationship Specialty Start Date End Date Travis Au MD [address] [place] [address], [phone] PCP - General Family Medicine 08/22/24 documented as of this encounter
--- NOTE | 2025-03-24 11:31 | HO.NEPHOV ---
Vital Signs 03/24/25 11:32 Height 6 ft Weight 180 lb BMI 24.4 BP 150/80 H Blood Pressure Location Lt brachial Position Sitting Pulse 69 Pulse Source Pulse Oximeter Pulse Oximetry (%) 97 Oxygen Delivery Method Room Air Intake Visit Reasons[place] [facility] HFU-Conf Shell Trim Tool Setter Required: No Accompanied by: Self / Same As Patient Allergies morphine Allergy (Verified 03/24/25 11:32) Hallucinations bupropion Adverse Reaction (Verified 03/24/25 11:32) Hallucinations HPI Comments Details: 64 year male with COPD, chronic respiratory failure on O2, WENDY s/p right BKA, HTN, a AFib on Xarelto, type 2 diabetes, just recently s/p left great toe amputation, recently presented to [place] [facility] [place] due to increased redness, swelling, pain at the amputation site as well as weakness, chills, body aches, cough, fever and shortness of breath for the past few days. He was found to have new AFIB with RVR as well as Heart failure . He also had sepsis secondary to acute osteomyelitis/septic arthritis L foot, lytic changes at the area suggestive of OM. cultures positive for MRSA,echo no vegetations; repeat blood culture 02/21 1/ +, repeat blood cultures 02/23 negative at 48 hrs. He was put on daptomycin but was readmitted in [facility]. He had ATN during his hospitalization but later in [facility] he was thought to have progression of his renal disease. He is here for follow up [facility] Medical History Urinary urgency Urinary tract infection Urinary hesitancy Tubular adenoma of colon Smoker Seborrheic keratoses SND (sensorineural deafness) Right BKA infection Peripheral vascular disease WENDY (obstructive sleep apnea) Microalbuminuria Lung nodule seen on imaging study Lightheadedness Latent tuberculosis LVH (left ventricular hypertrophy) Abnormal PFTs Hyponatremia Hypertensive retinopathy of both eyes Hyperkalemia Hepatitis C Hearing loss of both ears Hypertension Erectile dysfunction Cataract CKD (chronic kidney disease) Bladder wall thickening BPH (benign prostatic hyperplasia) Anticoagulated Anemia Peripheral neuropathy Diabetes mellitus, type II CVA (cerebral vascular accident) Adrenal nodule Kidney cysts Surgical History Hx of right BKA Family History Brother Diabetes Mother Diabetes Father Diabetes Social History Household Members: Spouse Housing: Apartment Do you presently have visiting nurse or other home services: Yes Alcohol intake: never Patient Tobacco Use Status: Never used Tobacco service: No Review of Systems Const All systems reviewed & are unremarkable except as noted in HPI and below Physical Exam Vital Signs: Last Vital Signs Pulse 69 03/24/25 11:32 BP 150/80 H 03/24/25 11:32 Pulse Ox 97 03/24/25 11:32 Oxygen Delivery Method Room Air 03/24/25 11:32 BMI result Body Mass Index 24.4 Const General: comfortable and no acute distress Orientation/consciousness: patient oriented x3 HEENT Head: Yes normocephalic Mouth: Normal oral and palatal mucosa present Eyes EOM: EOMs intact bilaterally Neck Neck: Yes supple Resp Auscultation: clear to auscultation bilaterally Cardio Jugular venous distension: no JVD Rate: regular rate GI Palpation (GI): Soft to palpation Auscultation: normal bowel sounds General: Yes no CVA tenderness Back/Spine/Pelvis Back: no CVA tenderness Skin General skin exam: no rashes or lesions noted Neuro General: patient oriented x3 and moves all extremities Results Reviewed Nephrology Results: Hgb, (14.0-18.0) 7.6 g/dl L 03/03/25 WBC, (4.8-10.8) 14.1 X10*3/uL H 03/03/25 Plt Count, (160-400) 303 X10*3/uL 03/03/25 Sodium, (135-145) 139 mmol/L 03/03/25 Potassium, (3.3-5.1) 4.0 mmol/L 03/03/25 Chloride, (96-108) 104 mmol/L 03/03/25 Carbon Dioxide, (22-29) 23 mmol/L 03/03/25 BUN, (9-16) 97 mg/dL H 03/03/25 Creatinine, (0.5-1.4) 8.72 mg/dL H* 03/03/25 Calcium, (8.4-10.2) 8.2 mg/dL L 03/03/25 Phosphorus, (2.7-4.5) 6.6 mg/dL H 02/20/25 Urine Protein, (Neg-Trace) >=1000 (4+) mg/dL H 02/20/25 Renal US 02/20/25 Assessment & Plan Assessment & Plan (1) Acute kidney injury superimposed on CKD: Code(s): N17.9 - Acute kidney failure, unspecified; N18.9 - Chronic kidney disease, unspecified Category: Medical Plan Mr Hinson has advanced chronic kidney disease from diabetes, hypertension as well as vascular disease. His renal disease has been progressive but recently developed UMAIR on CKD due to ATN with a component of renal disease progression. He is aware that he needs to go on dialysis when GFR gets close to 10 mL/minute. His blood pressure is at goal. His volume status is optimal. He is tolerating his current medications. He should remain on low potassium diet. I shall initiate him on activated vitamin-D after replacing vitamin-D. I shall arrange to have a dialysis access put in , when his GFR is consistently under 20 mL/minute after resolution of his recent UMAIR. Currently he does not have any uremic symptoms. He is also closely followed up by [facility] vascular service. Further management is pending evolving data. All his questions were answered. Follow-up appointment given Orders: Orders Creatinine 2 Weeks N17.9 - Acute kidney failure, unspecified, N18.9 - Chronic kidney disease, unspecified Blood Urea Nitrogen 2 Weeks N17.9 - Acute kidney failure, unspecified, N18.9 - Chronic kidney disease, unspecified Calcium 2 Weeks N17.9 - Acute kidney failure, unspecified, N18.9 - Chronic kidney disease, unspecified Phosphorus 2 Weeks N17.9 - Acute kidney failure, unspecified, N18.9 - Chronic kidney disease, unspecified Vitamin D 25-OH Total 2 Weeks N17.9 - Acute kidney failure, unspecified, N18.9 - Chronic kidney disease, unspecified Complete Blood Count Auto Diff 2 Weeks N17.9 - Acute kidney failure, unspecified, N18.9 - Chronic kidney disease, unspecified Electrolytes 2 Weeks N17.9 - Acute kidney failure, unspecified, N18.9 - Chronic kidney disease, unspecified Coding Level of Care Code Est Pt Level 4 (91647) Diagnoses Acute kidney injury superimposed on CKD N17.9; N18.9
[2025-03-24 11:32] VITALS: BP 150/80; PULSE 69; O2SAT 97; BMI 24.4
== END 2025-03-24 11:54 | disposition home or self-care (01) ==
LOC: HO.HKA 10:50
PROVIDERS: PCP Internal Medicine; Visit Provider Internal Medicine Nephrology
DX: N17.9 Acute kidney failure, unspecified (principal); N18.9 Chronic kidney disease, unspecified
CPT/HCPCS: 99214

== ENCOUNTER → 2025-03-24 10:50 | Outpatient (BNVA) | payer OTHER, SELFPAY | PROVIDERS: PCP Internal Medicine; Visit Provider Internal Medicine Nephrology | DX: I15.0 Renovascular hypertension (principal); N17.9 Acute kidney failure, unspecified; N18.9 Chronic kidney disease, unspecified; Z89.511 Acquired absence of right leg below knee; Z89.412 Acquired absence of left great toe | CPT/HCPCS: 99212 ==

== ENCOUNTER 2025-03-24 15:57 | Outpatient (REF) | payer OTHER, SELFPAY ==
[2025-03-24 16:00] LABS: MANUAL DIFF FLAG NO
[2025-03-24 16:16] LABS: Basophils Absolute Auto 0.1 X10*3/uL (0.0-0.2); Basophils Percent Auto 1.2 % (0-2); Eosinophils Absolute Auto 0.2 X10*3/uL (0.0-0.4); Hemoglobin 7.1 g/dl (14.0-18.0); Imm Gran Abs Auto 0.05 X10*3/uL (0.00-0.03); Imm Gran Pct Auto 0.6 % (0.0-0.4); Lymphocytes Absolute Auto 1.3 X10*3/uL (1.2-4.9); Lymphocytes Percent Auto 15.6 % (20-40); Mean Corpuscular HGB Conc 30.9 g/dl (31.0-36.0); Mean Corpuscular Hemoglobin 28.1 pg (27.0-33.0); Mean Corpuscular Volume 90.9 fL (80.0-98.0); Mean Platelet Volume 9.7 fL (9.4-12.4); Monocytes Absolute Auto 0.5 X10*3/uL (0.1-1.2); Monocytes Percent Auto 6.7 % (2-11); Neutrophils Percent Auto 73.9 % (45-73); Platelet Count 319 X10*3/uL (160-400); Red Blood Count 2.53 X10*6/uL (4.60-5.80); Red Cell Distribution Width 14.9 % (11.0-16.0); White Blood Count 8.1 X10*3/uL (4.8-10.8)
[2025-03-24 16:54] LABS: Alanine Aminotransferase < 6 U/L (0-40); Albumin Level 2.8 g/dL (3.5-5.0); Alkaline Phosphatase 66 U/L (39-117); Anion Gap 17 (12-20); Aspartate Amino Transferase 16 U/L (5-37); Bilirubin Total 0.3 mg/dL (0.0-1.0); Blood Urea Nitrogen 55 mg/dL (9-16); C Reactive Protein 0.49 mg/dL (< or = 0.50); Calcium 8.4 mg/dL (8.4-10.2); Carbon Dioxide 18 mmol/L (22-29); Chloride 109 mmol/L (96-108); Estimated Glomerular Filt Rate 7; Glucose Random 126 mg/dL (60-115); Potassium 5.5 mmol/L (3.3-5.1); Sodium 138 mmol/L (135-145); Total Protein 6.5 g/dL (6.5-8.0)
== END 2025-03-24 15:58 | disposition home or self-care (01) ==
LOC: HO.HVNA 15:57
PROVIDERS: Visit Provider Internal Medicine
DX: M86.9 Osteomyelitis, unspecified (principal)
CPT/HCPCS: 36415; 80053; 82550; 85025; 86140

== ENCOUNTER 2025-03-31 14:39 | Outpatient (REF) | payer OTHER, SELFPAY ==
--- OUTSIDE RECORDS SUMMARY | 2025-03-31 14:58 | XMS_ITS | Encounter Summary ---
Author Organization [facility] Address [address] [place] [address] Care Team Providers Care Residential Counselor Name Role Phone Travis Au MD Primary Care Provider [phone] Encounter Details Date Type Department Care Team (Latest Contact Info) Description 11/01/2024 Lab Requisition [facility] - Main Lab [address] [place] [address] Brandon Mckeon MD [address] [place] [address] Type 2 diabetes mellitus without [...] LAB CHEMISTRY METHOD 11/02/2024 12:37 PM EST [facility] Potassium 5.1 3.5 - 5.5 mmol/L LAB CHEMISTRY METHOD 11/02/2024 12:37 PM [facility] Chloride 107 96 - 110 mmol/L LAB CHEMISTRY METHOD 11/02/2024 12:37 PM [facility] CO2 21 21 - 32 mmol/L LAB CHEMISTRY METHOD 11/02/2024 12:37 PM [facility] Anion Gap 6 3 - 11 LAB CHEMISTRY METHOD 11/02/2024 12:37 PM [facility] Glucose 93 70 - 100 mg/dL LAB CHEMISTRY METHOD 11/02/2024 12:37 PM [facility] BUN 54(H) 5 - 25 mg/dL LAB CHEMISTRY METHOD 11/02/2024 12:37 PM [facility] Creatinine 3.63(H) 0.70 - 1.30 mg/dL LAB CHEMISTRY METHOD 11/02/2024 12:37 PM [facility] eGFR 18(L) >=60 mL/min/1. 73m2 LAB CHEMISTRY METHOD 11/02/2024 12:37 PM [facility] Comment:Calculation based on the Chronic Kidney Disease Epidemiology Collaboration (CKD-EPI) equation refit without adjustment for race. BUN/Creatinine Ratio 14.9 LAB CHEMISTRY METHOD 11/02/2024 12:37 PM [facility] Calcium 8.5 8.5 - 10.5 mg/dL LAB CHEMISTRY METHOD 11/02/2024 12:37 PM [facility] Blood Venous blood specimen / Unknown Venipuncture / Unknown 11/02/2024 7:04 AM EST 11/02/2024 11:13 AM EST us Brandon Mckeon MD LAB BLOOD ORDERABLES Final Resu lt [facility] [address] [place] [address], [place] [phone] * (ABNORMAL) Complete blood count (11/02/2024 7:04 AM EST) [facility] WBC 8.5 4.8 - 10.8 K/mcL LAB HEMETOLOGY METHOD 11/02/2024 12:23 PM [facility] RBC 3.10(L) 4.50 - 5.50 M/mcL LAB HEMETOLOGY METHOD 11/02/2024 12:23 PM [facility] Hemoglobin 8.8(L) 13.5 - 17.5 g/dL LAB HEMETOLOGY METHOD 11/02/2024 12:23 PM [facility] Hematocrit 28.2(L) 42.0 - 54.0 % LAB HEMETOLOGY METHOD 11/02/2024 12:23 PM [facility] MCV 91.9 79.0 - 98.0 FL LAB HEMETOLOGY METHOD 11/02/2024 12:23 PM [facility] MCH 28.7 27.0 - 32.0 pcg LAB HEMETOLOGY METHOD 11/02/2024 12:23 PM [facility] MCHC 31.2(L) 32.0 - 37.0 g/dL LAB HEMETOLOGY METHOD 11/02/2024 12:23 PM [facility] RDW 13.6 11.0 - 15.0 % LAB HEMETOLOGY METHOD 11/02/2024 12:23 PM [facility] Platelets 382 130 - 400 K/mcL LAB HEMETOLOGY METHOD 11/02/2024 12:23 PM [facility] MPV 10.3 7.0 - 11.0 FL LAB HEMETOLOGY METHOD 11/02/2024 12:23 PM [facility] NRBC 0.0 <1.0 % LAB HEMETOLOGY METHOD 11/02/2024 12:23 PM [facility] NRBC Absolute 0.00 <0.10 K/mcL LAB HEMETOLOGY METHOD 11/02/2024 12:23 PM EST [facility] Blood Venous blood specimen / Unknown Venipuncture / Unknown 11/02/2024 7:04 AM EST 11/02/2024 11:13 AM EST us Brandon Mckeon MD LAB BLOOD ORDERABLES Final Resu lt [facility] [address] [place] [address], documented in this encounter Visit Diagnoses Diagnosis Type 2 diabetes mellitus without complications (CMS/HCC V24, CMS/HCC V28) documented in this encounter Care Teams Residential Counselor Relationship Specialty Start Date End Date Travis Au MD [address] [place] [address], [phone] PCP - General Family Medicine 08/22/24 documented as of this encounter
[2025-03-31 15:31] LABS: Alanine Aminotransferase < 6 U/L (0-40); Albumin Level 2.7 g/dL (3.5-5.0); Alkaline Phosphatase 59 U/L (39-117); Anion Gap 14 (12-20); Aspartate Amino Transferase 13 U/L (5-37); Bilirubin Total 0.2 mg/dL (0.0-1.0); Blood Urea Nitrogen 58 mg/dL (9-16); Calcium 7.8 mg/dL (8.4-10.2); Carbon Dioxide 17 mmol/L (22-29); Chloride 110 mmol/L (96-108); Estimated Glomerular Filt Rate 7; Glucose Random 159 mg/dL (60-115); Potassium 5.1 mmol/L (3.3-5.1); Sodium 136 mmol/L (135-145)
== END 2025-03-31 14:40 | disposition home or self-care (01) ==
LOC: HO.HVNA 14:39
PROVIDERS: Visit Provider Internal Medicine
DX: B99.9 Unspecified infectious disease (principal)
CPT/HCPCS: 36415; 80053; 82550; 86140

== ENCOUNTER 2025-04-05 10:15 | Outpatient (REF) | payer OTHER, SELFPAY ==
[2025-04-05 10:46] LABS: MANUAL DIFF FLAG NO
--- OUTSIDE RECORDS SUMMARY | 2025-04-05 10:50 | XMS_ITS | Clinical Summary ---
Author Organization [facility] Address [address] 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 Role Phone Michelle Long MD Primary Care Provider [phone] Allergies Active Allergy Reactions Criticality Noted Date [...] Encounters Date Type Department Care Team Description 03/29/2025 Telephone [facility] [address] [place] [address] Sydney Rosales from Last 3 Months Family History Medical [...] Diabetes: Hemoglobin A1C 11/22/2024 08/22/2024 Influenza Vaccine (#1) 2025 3, 06/26/2023, 06/27/2022, Additional history exists Pneumococcal Vaccine: Peds ( 0 to 5 Years) and At-Risk Patients (6 to 49 Years) Discontinued 07/01/2010 Insurance [address] [place] [id number] [facility] ([id number]) MAHESH MACIAS [phone] [facility] Dual SNP ([id number]) Care Teams Carbon Furnace Operator Relationship Specialty Start Date End Date Michelle Long MD [address] [place], [place] PCP - General Internal Medicine 10/06/23
--- OUTSIDE RECORDS SUMMARY | 2025-04-05 10:50 | XMS_ITS | Data Portability ---
Author Organization [facility] [employer] [facility], Main Office Address [address], [address] [place] [address] Care Team Providers Care Life Sciences Instructor Name Role Phone CANDIS BECK - 2ND FLOOR OTHER KENIA BUITRAGO Primary Care Provider Assessment Encounter Date Assessment Date Assessment LastModified by Organization Details LastModified Time 09/29/2024 09/29/2024 Spent 30 reviewing records, seeing pt, consulting with staff and documenting Not available 09/29/2024 15:04:55 11/11/2024 11/11/2024 Greater than 30 minutes of assessment, education, applying 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 Not available 11/11/2024 08:43:24 Plan of Treatment Reminders Order Date Submit Date Provider Last Modified By Organization Details Last Modified Time Details Appointments None record ed. Lab None record ed. Referral None record ed. Procedures None record ed. Surgeries None record ed. Imaging None record ed. Medication Orders None record ed. Patient TargetsNo targets recorded. Patient InstructionsNo instructions recorded. Reason for Referral None Reported. Problems Name Problem SNOMED Code Status Onset Date Resolution Date Notes Provider Name and Address Organization Details Recorded Time Peripheral vascular disease 756372772 Active 2023 Oksana Lennon NP [address] , [address], [place], [address], [facility] 4 17:52:49 Adult failure to thrive syndrome 565184758 Active 2023 Oksana Lennon NP [address], [address], [place], [address], [facility] [place] [facility] 4 17:53:00 Type 2 diabetes mellitus 27197016 Active 2023 Oksana Lennon NP [address] , [address], [place], [address], [facility] 4 17:53:10 Hypertensive disorder 05949217 Active 2023 Oksana Lennon NP [address], [address], [place], [address], [facility] 4 17:53:15 Benign prostatic hyperplasia 334854953 Active 2023 Oksana Lennon NP [address], [address], [place], [address], [facility] 4 17:53:22 Hyperkalemia 67238773 Active 2023 Oksana Lennon NP [address] [facility], [address], [place], [address], [facility] 4 17:53:30 Chronic kidney disease stage 4 985570582 Active 2023 Oksana Lennon NP [address] [facility], [address], [place], [address], [facility] 4 17:54:21 Hyperlipidemia 58578886 Active 2023 Oksana Lennon NP [address] [facility] [facility], [address], [place], [address], [facility] 4 18:13:13 Smoker 34295846 Active 2023 Oksana Lennon NP [address] [facility], [address], [place], [address], [facility] 4 18:15:45 Problem Notes None recorded. Medical Equipment None Reported. Allergies Allergen ID Allergen Name Allergen Category Reaction Reaction Severity Criticality Documentation Date Start Date Code Code System Note Provider Name and Address Organization Details Recorded Time 02347 morphine medicatio n itching Not available low 08/22/2024 7052 RxNorm Janice Mitchell MD [address], [address], [place], [address], [facility] 4 20:23:08 45558 bupropion Not available confusion hallucina tions Not available Not available Not available 08/22/2024 47517 RxNorm tremo rs, aggre ssive , loss of appet ite Janice Mitchell MD [address] [facility], [address], [place], [address] , [facility] 4 20:23:00 Vitals Date Recorded Body height Body weight Body mass index (BMI) Heart rate Respiratory rate Body temperature Oxygen saturation Oxygen saturation in Arterial blood by Pulse oximetry Systolic blood pressure Diastolic blood pressure Provider Name and Address Organization Details Last Updated DateTime 5 179.83 cm 04499.8 1 g 25.5 kg/m2 62 /min 16 /min 98.2 [degF] 96 % 96 % 146 mm[Hg] 74 mm[Hg] Oksana Lennon NP [address] [facility], [address], [place], [address], [facility] 5 10:26:07 Date Recorded Body height Body weight Body mass index (BMI) Heart rate Respiratory rate Body temperature Oxygen saturation Oxygen saturation in Arterial blood by Pulse oximetry Systolic blood pressure Diastolic blood pressure Provider Name and Address Organization Details Last Updated DateTime 5 179.83 cm 12964.8 1 g 25.5 kg/m2 68 /min 18 /min 97.2 [degF] 96 % 96 % 158 mm[Hg] 65 mm[Hg] Oksana Lennon NP [address] [facility], [address], [place], [address], [facility] 5 16:59:12 Date Recorded Body height Body mass index (BMI) Body weight Heart rate Respiratory rate Body temperature Oxygen saturation Oxygen saturation in Arterial blood by Pulse oximetry Systolic blood pressure Diastolic blood pressure Provider Name and Address Organization Details Last Updated DateTime 5 179.83 cm 24.1 kg/m2 18125.8 9 g 71 /min 19 /min 97.9 [degF] 97 % 97 % 162 mm[Hg] 81 mm[Hg] Oksana Lennon NP [address] [facility], [address], [place], [address], [facility] 5 08:22:41 Date Recorded Body height Heart rate Respiratory rate Body temperature Oxygen saturation Oxygen saturation in Arterial blood by Pulse oximetry Systolic blood pressure Diastolic blood pressure Provider Name and Address Organization Details Last Updated DateTime 4 179.83 cm 70 /min 18 /min 98 [degF] 98 % 98 % 132 mm[Hg] 75 mm[Hg] ISABEL SAUNDERS NP [address] [facility], [address], [place], [address], [facility] 4 15:05:47 Date Recorded Body height Body mass index (BMI) Body weight Heart rate Respiratory rate Body temperature Oxygen saturation Oxygen saturation in Arterial blood by Pulse oximetry Systolic blood pressure Diastolic blood pressure Provider Name and Address Organization Details Last Updated DateTime 4 179.83 cm 28.2 kg/m2 97647.0 7 g 77 /min 18 /min 98 [degF] 98 % 98 % 132 mm[Hg] 75 mm[Hg] Janice Mitchell MD [address] [facility], [address], [place], [address], [facility] 4 15:06:09 Social History Question Answer Notes LastModified by Organizat ion Details LastModified Time Tobacco Smoking Status Current Every Day Smoker Oksana Lennon NP [address] [facility], [facility] [address], [place], [address], [facility] 08/22/2024 17:36:42 What Is Your Code Status? Full Code Information not available 08/22/2024 Where Do You Live? Apartment Information not available 08/22/2024 Do You Have A Medical Power Of Vessel Master? Yes Has HCP [email or web address] Information not available 08/23/2024 What Was The Date Of Your Most Recent Tobacco Screening? 08/22/2024 Information not available 08/22/2024 Do You Have An Out Of Hospital DNR? Yes [email or web address] Information not available 08/23/2024 What Is Your Relationship Status? Information not available 08/22/2024 How Much Tobacco Do You Smoke? 0.25 PPD 6 Cig/day Information not available 08/22/2024 Has Tobacco Cessation Counseling Been Provided? Yes Information not available 08/22/2024 On What Date Was Tobacco Cessation Counseling Provided? 08/22/2024 Information not available 08/22/2024 How Many Years Have You Smoked Tobacco? 43 Information not available 08/22/2024 Sex: Unknown Functional Status Question Answer Note LastModified by Organizat ion Details LastModified Time Do you use any illicit or recreational drugs? No Information not available 08/22/2024 Do you or have you ever used any other forms of tobacco or nicotine? No Information not available 08/22/2024 What is your level of alcohol consumption? None Information not available 08/22/2024 Mental Status None recorded. Family History Nothing Reported Notes:N/C Medical History No medical history recorded. Immunizations Vaccine Type Date Status Note Provider Nam e and Address Organization Details Recorded Time Tdap 09/04/2023 completed Bri Mccall [facility] 10/04/2024 14:59:23 influenza, unspecified formulation 06/27/2022 completed Bri Mccall [facility] 10/04/2024 14:59:38 influenza, unspecified formulation 06/26/2023 completed Bri Mccall [facility] 10/04/2024 14:59:46 SARS-COV-2 (COVID-19) vaccine, UNSPECIFIED 10/16/2020 completed Bri Mccall [facility] 10/04/2024 15:00:00 SARS-COV-2 (COVID-19) vaccine, UNSPECIFIED 11/06/2020 completed Bri Mccall [facility] 10/04/2024 15:00:07 SARS-COV-2 (COVID-19) vaccine, UNSPECIFIED 06/02/2021 completed Bri Mccall [facility] 10/04/2024 15:00:15 SARS-COV-2 (COVID-19) vaccine, UNSPECIFIED 06/27/2022 completed Bri Mccall [facility] 10/04/2024 15:00:22 SARS-COV-2 (COVID-19) vaccine, UNSPECIFIED 06/26/2023 completed Bri Mccall [facility] 10/04/2024 15:00:37 Past Encounters Encounter ID Performer Location Encounter Start Date Encounter Closed Date Diagnosis/Indication Diagnosis SNOMED-CT Code Diagnosis ICD10 Code Diagnosis Note [id number] Oksana Lennon NP [facility] [address] [place] [address] 08/22/2024 14:49:44 08/23/2024 10:31:07 Adult failure to thrive syndrome 320827854 R62.7 supportive carept /ot eval and treat for rom, mobility, strengthen ing, gait, balancemon itor for need to adjust careplan Hypertensive disorder 38 576456 I10 amlodipine 10 mg po qdmetoprol ol xl 100 mg po qdhydralaz ine 50 tidmonitor bp and need to adjust Hyperkalemia 37294539 E8 7.5 renal diet, low potassiuml okelma 10 g qdsodium bicarb 650 mg po bidcbc and bmp weekly x 3 weeks Chronic ki dney disease stage 4 873599916 N18.4 renal diet, low potassiumw as educated in hospital about diet, cont here with dieticainb aseline 2.5-3lokel ma 10 g qdsodium bicarb 650 mg po bidfu with nephrology Dr Perez ? Dr Mc 2 weeks Peripheral vascular disease 419189750 I73.9 with BKA Right and [address] and severe vascuopath yxarelto 2.5 mg po bidoxycodo ne 5 mg po q 8 hours prn paintyl prnPT/OT eval and treatfu plan:[facility] [address] [facility] 12/3 3pm and 330 pm and 09/08 1:30 pmwill leave open to air for nowmonitor for s/s of infection Type 2 kishor betes mellitus 53132535 E11.21 farxiga 10 mg po qdlispro tid ac SSImonitor BS and adjust as needed Benign pro static hyperplasia 633627512 N40.0 tamsulosin 0.4 mg po dailyfinas teride 5 mg po qdmonitor Hyperlipidemia 60859971 E78.5 atorvastat in 10 mg po qdaspirin 81 mg po qdmonitor Smoker 99599712 F17.200 pt is chronic smokereduc ated 3-10 minutes and refuses NRT or to quitplan is to continue smokingmon itor for readiness to quit with chronic disease [id number] Janice Mitchell MD [address] [place] [address] 08/23/2024 19:50:37 08/29/2024 13:25:12 Adult failure to thrive syndrome 923744857 R62.7 PT/OT as above.Astrid tor mood and po intake.Psy ch consult prn Hypertensive disorder 38 803344 I10 Some borderline SBPs since here, but diastolics all low normal or low.No change in meds for nowContinu e amlodipine 10 mg qd, metoprolol succinate 100 mg qd, and hydralazin e 50 mg TID.Monito r BP and labs Hyperkalemia 11339093 E8 7.5 In good control on current regimen.Co ntinue renal diet, Lokelma 10 g qd and sodium bicarb 650 mg BID.Monito r labs. Chronic ki dney disease stage 4 346327268 N18.4 At baseline.C ontinue to avoid nephrotoxi c meds as able.Monit or labs.Renal f/u as planned. 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 Type 2 kishor betes mellitus 34003805 E11.21 Sugars in good control since here.Last HgA1C was 7.4 in 03/2024, and 6.4 on 08/22/24.C ontinue Farxiga 10 mg qd and SSI.Monito r fingerstic ks TID and HgA1C q 3 months. Benign pro static hyperplasia 591664309 N40.0 No current sxs.Contin ue tamsulosin 0.4 mg qd and finasterid e 5 mg qdMonitor urinary function. Hyperlipidemia 57723506 E78.49 Continue atorvastat in 10 mg qd and ASA 81 mg qdMonitor labs as outpt. Smoker 82244084 F17.213 Earlier told someone he was jonesing for a cigarette , but tells me he is considerin g quitting.N ot interested in NRT, says he has had bad rxns.Sole nue to encourage cessation. 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, but having trouble with amp emotionall y and trouble caring for himself.co ntPT/OT for strengthen ing, balance, gait training, safety and function.a [facility] ontinue fall precaution s.Monitor for safety.Con tinueXarel to 2.5 mg BID for DVT prophylaxi s.oxycodon e 5 mg q 8 hrs prnAPAP 650 mg q 4 hrs prn.F/U with vascular as planned.Mo nitor incision, healed in today09/08 rehan ordered and faxed to [facility] with appt 09/15fu in spring for further testing of left leg Adult fail ure to thrive syndrome 039684325 R62.7 PT/OT as above.Astrid tor mood and po intake.Psy ch consult prn Hypertensive disorder 38 655896 I10 bp stableCont inueamlodi pine 10 mg qdmetoprol ol succinate 100 mg qd,hydrala zine 50 mg TID.Monito r BP and labs Hyperkalemia 47809169 E8 7.5 In good control on current regimen.Co ntinue renal diet (low k)Lokelma 10 g qdsodium bicarb 650 mg BID.Monito r labs. not done this week, will reorder Chronic ki dney disease stage 4 980535363 N18.4 At baseline.C ontinue to avoid nephrotoxi c meds as able.monit or bmp for increased kcont sodium bicarbonat e bidMonitor labs.Renal f/u as planned. Type 2 kishor betes mellitus 79808639 E11.21 BS stableLast HgA1C was 7.4 in 03/2024, and 6.4 on 08/22/24.C ontinueFar xiga 10 mg qd and SSI.Monito r fingerstic ks TID and HgA1C q 3 months. Benign pro static hyperplasia 104164006 N40.0 No current sxs.Contin uetamsulos in 0.4 mg qd and finasterid e 5 mg qdMonitor urinary function. Hyperlipidemia 76542797 E78.49 Continueat orvastatin 10 mg qd and ASA 81 mg qdMonitor labs as outpt. Smoker 05954597 F17.213 continues to smokeNot interested in NRT, says he has had bad rxns.educsilvestre tate on smoking cessationC ontinue to encourage cessation. 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, but having trouble with amp emotionall y and trouble caring for himself.ov erall doing much better and healing in, incision closedCont inue fall precaution s.Monitor for safety.Con tinueXarel to 2.5 mg BID for DVT prophylaxi s.dc oxycodone 5 mg q 8 hrs prn, has not used in AP 650 mg q 4 hrs prn.09/08 rehan ordered and faxed to [facility] with appt 09/15fu in spring for further testing of left leg with vascular outpt and prn Adult fail ure to thrive syndrome 525142634 R62.7 Monitor mood and intakePsyc h consult prn Hypertensive disorder 38 458902 I10 bp stable hereContin ueamlodipi ne 10 mg qdmetoprol ol succinate 100 mg qd,hydrala zine 50 mg TID.Monito r BP and labs outpt with pcplabs ordered but not done, will attempt tomorrow again Hyperkalemia 44792996 E8 7.5 In good control on current regimen.Co ntinue renal diet (low k)Lokelma 10 g qdsodium bicarb 650 mg BID.Monito r labs. not done this week, will reorder for ed am again before dc(unclear why labs aren't done, question difficult stick? )fu with pcp Chronic ki dney disease stage 4 049619908 N18.4 At baseline.C ontinue to avoid nephrotoxi c meds as able.conts odium bicarbonat e bidMonitor labs outpt with pcpRenal f/u as planned. Type 2 kishor efrain mellitus 02234961 E11.21 BS stableLast HgA1C was 7.4 in 03/2024, and 6.4 on 08/22/24.C ontinueFar xiga 10 mg qd and SSI.Monito r fingerstic ks TID and HgA1C q 3 months Benign pro static hyperplasia 044099260 N40.0 No current sxs.Contin uetamsulos in 0.4 mg qd and finasterid e 5 mg qdMonitor urinary function Hyperlipidemia 78396064 E78.49 Continueat orvastatin 10 mg qd and ASA 81 mg qdMonitor labs with pcp prn Smoker 96719163 F17.213 continues to smokeNot interested in NRT, says he has had bad rxns.educsilvestre tate on smoking cessationC ontinue to encourage cessation [id number] [facility]ksana Lennon, [facility] [address] 09/21/2024 13:09:13 09/22/2024 12:24:03 Peripheral vascular disease 879002339 I73.89 Z89.511 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, but having trouble with amp emotionall y and trouble caring for himself.ov erall doing much better and healing in, incision closedCont inue fall precaution s.Monitor for safety.Con tinueXarel to 2.5 mg BID for DVT prophylaxi s.APAP 650 mg q 4 hrs prn.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 on need to use it so he can get prothetic soon.will fu with [facility] prothetics fu in spring for further testing of left leg with vascular outpt and prn Adult fail ure to thrive syndrome 566202355 R62.7 Monitor mood and intakePsyc h consult prn Hypertensive disorder 38 821091 I10 bp stable 118/64Cont inueamlodi pine 10 mg qdmetoprol ol succinate 100 mg qd,hydrala zine 50 mg TID.Monito r BP and labs outpt with pcp Hyperkalemia 41893395 E8 7.5 In good control on current regimen.Co ntinue renal diet (low k)Lokelma 10 g qdsodium bicarb 650 mg BID.Monito r labs.fu with renal Chronic ki dney disease stage 4 256156215 N18.4 At baseline.C ontinue to avoid nephrotoxi c meds as able.conts odium bicarbonat e bidRenal f/u as planned. 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, but having trouble with amp emotionall y and trouble caring for himself.ov erall doing much better and healing in, incision closedCont inue fall precaution s.Monitor for safety.Con tinueXarel to 2.5 mg BID for DVT prophylaxi s.APAP 650 mg q 4 hrs prn.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 on need to use it so he can get prothetic soon.will fu with [facility] prosthetic sfu in spring for further testing of left leg with vascular outpt and prn Adult fail ure to thrive syndrome 730630173 R62.7 Monitor mood and intakePsyc h consult prn Hypertensive disorder 38 124261 I10 stableCont inueamlodi pine 10 mg qdmetoprol ol succinate 100 mg qd,hydrala zine 50 mg TID.Monito r BP and labs outpt with pcp Hyperkalemia 82896376 E8 7.5 In good control on current regimen.Co ntinue renal diet (low k)Lokelma 10 g qdsodium bicarb 650 mg BID.Monito r labs.fu with renalfu labs cbc and bmp 09/26 Chronic ki dney disease stage 4 172919739 N18.4 At baseline.C ontinue to avoid nephrotoxi c meds as able.conts odium bicarbonat e bidRenal f/u as planned. Type 2 kishor betes mellitus 18012937 E11.21 BS stableHgA1 C was 7.4 in 03/2024, and 6.4 on 08/22/24 improvedCo ntinueFarx iga 10 mg qd and SSI.Monito r fingerstic ks TID and HgA1C q 3 months Benign pro static hyperplasia 010434852 N40.0 No current sxs.Contin uetamsulos in 0.4 mg qd and finasterid e 5 mg qdMonitor urinary function Furuncle of buttock 1243 0003 L02.32 large abcess on posterior right upper buttock likely [id number] /19start cephalexin 500 mg po q 8 hours (will decrease from q6 hr dosing due to poor renal fx)x 7 days with probioticn s wash, pat dry, and apply foam dressing to areamonito r for s/s of infectionc bc and bmp on 09/26cons ider wound consult Angioedema of lip 914576 005 T78.3XXA pt with angioedema to only the lower lip without other difficulty breathing, swallowing , large tongue, or hivespt states no new food, meds, or cause09/22 unclear etiology without and sraita or arb mediations start benedryl 50 mg po now and 50 mg po qhs and monitor closelyclo sely monitor for irritiants , worseningt o er if any s/s of resp distress, diff swallowing , or increased swelling [id number] Oksana Lennon NP [facility] [address] [address] 09/23/2024 08:41:31 09/26/2024 14:26:31 Angioedema of lip 054804582 T78.3XXA pt with angioedema to only the lower lip without other difficulty breathing, swallowing , large tongue, or hivespt states no new food, meds, or insect bite cause 09/22 unclear etiology without and sarita or arb medication sstart benedryl 50 mg po now and 50 mg po qhs and monitor closelyclo sely monitor for irritiants , worsening 09/23 with improvemen t and decrease in size today, however still quite swollen start benedryl 25 mg op tid x 3 daysstart prednisone 40 mg po 2 days, 30mg po 2 days, 20 mg x s days, and 10 mg po x 2days then off to er if any s/s of resp distress, diff swallowing , or increased swellingmo nitor for need to adjust medication s if reoccurs Peripheral vascular disease 947003621 I73.89 Z89.511 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, but having trouble with amp emotionall y and trouble caring for himself.ov erall doing much better and healing in, incision closedCont inue fall precaution s.Monitor for safety.Con tinueXarel to 2.5 mg BID for DVT prophylaxi s.APAP 650 mg q 4 hrs prn.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 on need to use it so he can get prothetic soon.will fu with [facility] prosthetic sfu in spring for further testing of left leg with vascular outpt and prn Adult fail ure to thrive syndrome 408132835 R62.7 Monitor mood and intakePsyc h consult prn Hypertensive disorder 38 509907 I10 stableCont inueamlodi pine 10 mg qdmetoprol ol succinate 100 mg qd,hydrala zine 50 mg TID.Monito r BP and labs outpt with pcp Hyperkalemia 33768834 E8 7.5 In good control on current regimen.Co ntinue renal diet (low k)Lokelma 10 g qdsodium bicarb 650 mg BID.Monito r labs.fu with renalfu labs cbc and bmp 09/26 Chronic ki dney disease stage 4 877616535 N18.4 At baseline.C ontinue to avoid nephrotoxi c meds as able.conts odium bicarbonat e bidRenal f/u as planned. Type 2 kishor betes mellitus 59341999 E11.21 BS stableHgA1 C was 7.4 in 03/2024, and 6.4 on 08/22/24 improvedCo ntinueFarx iga 10 mg qd and SSI.Monito r fingerstic ks TID and HgA1C q 3 months Benign pro static hyperplasia 948387242 N40.0 No current sxs.Contin uetamsulos in 0.4 mg qd and finasterid e 5 mg qdMonitor urinary function Carbuncle of buttock 762 10890 L02.33 large golf ball size abcess on posterior right upper buttock likely infected noted on 09/22, pt states it was noted on 09/21 09/22start cephalexin 500 mg po q 8 hours (will decrease from q6 hr dosing due to poor renal fx)x 7 days with probioticn s wash, pat dry, and apply foam dressing to areamonito r for s/s of infection 09/23 area improved and draining today, with decrease in sizewound consult on thursday heremonito r closely for worsening infection, fever, or chillscbc and bmp on 09/26 to assess renal func and for infection [id number] Jan[facility] Mitchell [facility] [address] 09/26/2024 19:01:26 09/27/2024 08:53:46 Carbuncle of buttock 70361475 L02.33 Improving. Continue cephalexin 500 mg q 8 hrs until 09/29 with probiotic BID.Contin ue wound care as ordered.To be seen by wound care in AM before d/c.F/U with PCP as outpt. Angioedema of lip 683457 005 T78.3XXA ResolvedFi brandon prednisone taper.Astrid tor for recurrence . 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 Adult fail ure to thrive syndrome 955867088 R62.7 Much improved.F /U with PCP as outpt. Hypertensive disorder 38 556214 I10 In good control.Co ntinue amlodipine 10 mg qd, metoprolol succinate 100 mg qd, and hydralazin e 50 mg TID.F/U with PCP as outpt. Hyperkalemia 57900715 E8 7.5 Remains WNL, but sl. higher than 09/15, likely due to UMAIR.Contin ue renal diet (low k)Continue NaHCO3 as above and Lokelma 10 gms qdWill order repeat labs for 09/29 with VNA. Chronic ki dney disease stage 4 [id number] N18.4 With sig worsening today compared to 09/15Enc raged pt to drink more fluids.Con tinue to avoid nephrotoxi c meds as able.Sole nue sodium bicarbonat e 650 mg BID.Renal f/u as planned. Type 2 kishor betes mellitus 45253262 E11.21 BS mostly in ood control since here with occ high readingHgA 1C was 7.4 in 03/2024, and 6.4 on 08/22/24 improvedCo ntinue Farxiga 10 mg qd and SSI.F/U with PCP as outpt. Benign pro static hyperplasia 867171831 N40.0 No sxs. since here.Sole nue tamsulosin 0.4 mg qd and finasterid e 5 mg qdF/U with PCP as outpt. Hyperlipidemia 57390169 E78.49 Continue atorvastat in 10 mg qd and ASA 81 mg qdMonitor labs as outpt. Smoker 94692121 F17.213 Has been smoking since here.Refus ed NRT.Contin ue to encourage cessation. [id number] ISABEL SAUNDERS NP [address] [address] 09/29/2024 15:04:27 09/30/2024 12:02:02 Chronic kidney disease stage 4 837631295 N18.4 With sig worsening 09/26 compared to 09/15Enc rage fluids.Con tinue to avoid nephrotoxi c meds as able.Follo w up with Nephrology as sched.Cont inue sodium bicarbonat e 650 mg BID.CMP in am Hyperkalemia 63933243 E8 7.5 Remains WNL, but sl. higher than 09/15, likely due to UMAIR.Contin ue renal diet (low k)Continue NaHCO3 as above and Lokelma 10 gms qdWill order repeat labs for 09/30 Peripheral vascular disease 425038391 I73.89 Z89.511 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.Cont inue Xarelto 2.5 mg BID for DVT prophylaxi s (not sure how long he needs to be on this).Cont inue APAP 650 mg q 4 hrs prn.No longer needing Oxy.Contin ue television maintenance man and f/u with prosthetis t as planned.F/ U with vascular as planned. Carbuncle of buttock 762 61557 L02.33 Improving. Continue cephalexin 500 mg q 8 hrs until complete, as well as probiotic BID.Contin ue wound care as ordered.To be seen by wound care in AM before d/c.F/U with PCP as outpt. Angioedema of lip 914457 005 T78.3XXA ResolvedFi brandon prednisone taper.Astrid tor for recurrence . Adult fail ure to thrive syndrome 410217243 R62.7 Much improved.F /U with PCP as outpt. Hypertensive disorder 38 719747 I10 In good control.Co ntinue amlodipine 10 mg qd, metoprolol succinate 100 mg qd, and hydralazin e 50 mg TID.F/U with PCP as outpt. Type 2 kishor betes mellitus 03129993 E11.21 BS mostly in good control since here with occ. high readingHgA 1C was 7.4 in 03/2024, and 6.4 on 08/22/24 improvedCo ntinue Farxiga 10 mgBS bid once a week and prnF/U with PCP as outpt. Benign pro static hyperplasia 415600249 N40.0 No sxs. since here.Sole nue tamsulosin 0.4 mg qd and finasterid e 5 mg qdF/U with PCP as outpt. Hyperlipidemia 72128007 E78.49 Continue atorvastat in 10 mg qd and ASA 81 mg qdMonitor labs as outpt. Smoker 64753311 F17.213 Has been smoking since here.Refus ed NRT.Contin ue to encourage cessation. [id number] Janice Mitchell MD [address] [address] 09/30/2024 14:58:21 10/03/2024 12:45:37 Chronic kidney disease stage 4 073181719 N18.4 With sig worsening on 09/26 compared to t was going to drink more fluids at home and he says he did.Contin ue to avoid nephrotoxi c meds as able.Sole nue sodium bicarbonat e 650 mg BID.Renal f/u as planned.La bs were to be rechecked today, but pt refused.Pr omises he will allow lab draw on Wednesday 10/03. Hyperkalemia 93973005 E8 7.5 Remains WNL, but was sl. higher on 09/26 than 09/15, likely due to UMAIR.Contin ue renal diet (low k)Continue NaHCO3 as above and Lokelma 10 gms qdLabs on 10/03 as above. Peripheral vascular disease 189491605 I73.89 Z89.511 Has recovered well from BKA on 07/21.Cont inue Xarelto 2.5 mg BID for DVT prophylaxi s (not sure how long he needs to be on this).Cont inue APAP 650 mg q 4 hrs prn.Contin ue television maintenance man and f/u with prosthetis t as planned.F/ U with vascular as planned. Carbuncle of buttock 762 57911 L02.33 Improving per pt.Wound care note from 09/27 not scanned in to PCC yet.Contin ue cephalexin 500 mg q 8 hrs until 10/02 with probiotic BID.Contin ue wound care as ordered.F/ U with wound care weekly until healed. Angioedema of lip 105862 005 T78.3XXA ResolvedHa s completed prednisone taper.Astrid tor for recurrence . Adult fail ure to thrive syndrome 247437735 R62.7 Much improved.C ontinue liquid protein 30 mg qd to help with wound healing.En courage healthy eating. Hypertensive disorder 38 118333 I10 Remains in good control.Co ntinue amlodipine 10 mg qd, metoprolol succinate 100 mg qd, and hydralazin e 50 mg TID.Monito r BP and labs. Type 2 kishor betes mellitus 69553766 E11.21 Very good since return, all <150.HgA1C was 7.4 in 03/2024, and 6.4 on 08/22/24.C ontinue Farxiga 10 mg qd and SSI.If sugars remain <200 consistent ly can change TID fingerstic ks to qAM. Benign pro static hyperplasia 066188564 N40.0 No sxs. since here.Sole nue tamsulosin 0.4 mg qd and finasterid e 5 mg qdMonitor urinary function. Hyperlipidemia 13428597 E78.49 Continue atorvastat in 10 mg qd and ASA 81 mg qdMonitor labs yearly. Smoker 48694479 F17.213 Continues to smoke.Cont inues to refuse NRT.Contin ue to encourage cessation. [id number] Oksana Lennon NP [facility] [address] [place] [address] 10/13/2024 10:10:33 10/14/2024 10:47:39 Chronic kidney disease stage 4 554681130 N18.4 With sig worsening on 09/26 compared to t was going to drink more fluids at home and he says he did.Contin ueavoid nephrotoxi c meds as able.sodiu m bicarbonat e 650 mg BID.Renal f/u as planned.La bs ordered for bmp and cbc on 10/19 on thu x 2labs as above Hyperkalemia 13064896 E8 7.5 Remains WNL, but was sl. 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 Carbuncle of buttock 762 82582 L02.33 Improving per pt.mostly healedCont inuecomple lea cephalexin 500 mg q 8 hrs until 10/02 with probiotic BID.Contin ue wound care as ordered.F/ U with wound care weekly until healed.ratna l order zinc cream to right upper abcess buttock qd until healedmoni tor for s/s of infection Adult fail ure to thrive syndrome 896429538 R62.7 Much improved.E ncourage healthy eating. Hypertensive disorder 38 829032 I10 Remains in good control.Co ntinueamlo dipine 10 mg qd, metoprolol succinate 100 mg qd, and hydralazin e 50 mg TID.Monito r BP and labs. Type 2 kishor betes mellitus 92280126 E11.21 Very good since return, all <150.HgA1C was 7.4 in 03/2024, and 6.4 on 08/22/24.C ontinue Farxiga 10 mg qd and SSI.If sugars remain <200 consistent ly can change TID fingerstic ks to qAM. Benign pro static hyperplasia 851194506 N40.0 No sxs. since here.Sole nuetamsulo sin 0.4 mg qd and finasterid e 5 mg qdMonitor urinary function. Hyperlipidemia 14204049 E78.49 Continueat orvastatin 10 mg qd and ASA 81 mg qdMonitor labs yearly. Smoker 80098471 F17.213 Continues to smoke.spen t 3-10 min on education and NRT therapy, he is willing to try nicorette gumnicoret te gum 4 mg po q 3 hours prn cravingsCo ntinue to encourage cessation. [id number] Oksana Lennon, TANYA [address] [address] 10/21/2024 09:04:51 10/24/2024 16:33:36 Peripheral vascular disease 873552813 I73.89 Z89.511 Has recovered well from r BKA on 07/21.plan for prosthetic on 10/21 per pt.Continu eXarelto 2.5 mg BID for DVT prophylaxi s (not sure how long he needs to be on this).APAP 650 mg q 4 hrs prn.shrink er and f/u with prosthetis t as planned.F/ U with vascular as planned outpt in the spring Chronic dney disease stage 4 638476745 N18.4 With sig worsening on 09/26 compared to t was going to drink more fluids at home and he says he did.Contin ueavoid nephrotoxi c meds as able.sodiu m bicarbonat e 650 mg BID.Renal f/u as planned.la bs as above, and reordered Smoker 45122712 F17.213 Continues to smoke.jm rette gum 4 mg po q 3 hours prn cravingsCo ntinue to encourage cessation. Carbuncle of buttock 762 70275 L02.33 resolvedco mpleted cephalexin 500 mg q 8 hrs until 10/02 with probiotic BID..will order zinc cream to right upper abcess buttock qd until healedmoni tor for s/s of infection Hyperkalemia 34346772 E8 7.5 Remains WNL, but was sl. higher on 09/26 than 09/15, likely due to UMAIR.Contin uerenal diet (low k)NaHCO3 as aboveLokel ma 10 gms qdbmp and cbc weekly for one more lab Adult fail ure to thrive syndrome 175486282 R62.7 Much improved and seems to be doing better with plan for BKA soonEncour age healthy eating. Hypertensive disorder 38 620150 I10 Remains in good control.Co ntinueamlo dipine 10 mg qdmetoprol ol succinate 100 mg qdhydralaz ine 50 mg TID.Monito r BP and labs. Type 2 kishor betes mellitus 27163236 E11.21 Very good since return, all <150.HgA1C was 7.4 in 03/2024, and 6.4 on 08/22/24.C ontinue Farxiga 10 mg qd and SSI.If sugars remain <200 consistent ly can change TID fingerstic ks to qAM. Benign pro static hyperplasia 995528422 N40.0 No sxs. since here.Sole nuetamsulo sin 0.4 mg qd and finasterid e 5 mg qdMonitor urinary function. Hyperlipidemia 65286300 E78.49 Continueat orvastatin 10 mg qd and ASA 81 mg qdMonitor labs yearly. Angioedema of lip 930465 005 T78.3XXA ResolvedHa s completed prednisone taper.Astrid tor for recurrence . [id number] [facility] [place] [address] 11/11/2024 08:19:31 11/15/2024 13:47:34 Peripheral vascular disease 745121330 I73.89 Z89.511 Has recovered well from r BKA on 07/21/24.H e plans to discharge despite prosthetic not fitting well and fu with [employer] on Thursday.He does not want to stay here and have therapy help with prosthetic fittings and use of.Continu eXarelto 2.5 mg BID for DVT prophylaxi s (not sure how long he needs to be on this).APAP 650 mg q 4 hrs prn.shrink er use as much as possible and f/u with prosthetis t as planned.F/ U with vascular as planned outpt in the spring Chronic dney disease stage 4 532215257 N18.4 With CKD at baselineCo ntinueavoi d nephrotoxi c meds as able.sodiu m bicarbonat e 650 mg BID.Renal f/u as planned ouitptfu with pcp outpt and renal outpt Smoker 24467427 F17.213 Continues to smoke.jm rette gum 4 mg po q 3 hours prn cravingsCo ntinue to encourage cessation outpt Carbuncle of buttock 762 06881 L02.33 resolvedco mpleted cephalexin 500 mg q 8 hrs until 10/02 with probiotic BID..will order zinc cream to right upper abcess buttock qd until healedmoni tor for s/s of infection outpt with pcp Hyperkalemia 31494148 E8 7.5 Remains WNLContinu erenal diet (low k)NaHCO3 as aboveLokel ma 10 gms qdlabs outpt with pcp Adult fail ure to thrive syndrome 745617453 R62.7 Much improved and seems to be doing better with plan for BKA soonEncour age healthy eating outpt Hypertensive disorder 38 900922 I10 Remains in good control, bp high this am but has not got his bp meds yet todayConti nueamlodip ine 10 mg qdmetoprol ol succinate 100 mg qdhydralaz ine 50 mg TID.Monito r BP and labs outpt with pcp Type 2 kishor betes mellitus 24378195 E11.21 Very good since return, mostly <150.HgA1C was 7.4 in 03/2024, and 6.4 on 08/22/24.C ontinueFar xiga 10 mg qd and SSI.If sugars remain <200 consistent ly can change TID fingerstic ks to qAM.monito r outpt with pcp outpt Benign pro static hyperplasia 854593678 N40.0 No sxs. since here.Sole nuetamsulo sin 0.4 mg qdfinaster paula 5 mg qdMonitor urinary function outpt with pcp Hyperlipidemia 51553199 E78.49 Continueat orvastatin 10 mg qdASA 81 mg qdMonitor labs with pcp prn Angioedema of lip 501396 005 T78.3XXA Resolvedwa s never on sarita inhibitors , unclear originHas completed prednisone taper and bendrylMon itor for recurrence outpt with pcp Health Concerns Section Related Observation LastModified by Organization Detai ls LastModified Time None Recorded Concern Status LastModified by Organization Details LastModified Time None Recorded Advance Directives Directive None Recorded Payers Insurance Date Sequence Insurance Name Policy Number Policy Miles Covered Member ID Miles Member ID Guarantor Name 11/11/2024 1 [facility] - DOS ON OR AFTER 2023 - MEDICARE ADVANTAGE [place] (MEDICARE REPLACEMENT/ADV ANTAGE - PPO) Renato Hinson [id number] Renato Hinson Notes Date Note Type Note Provider Name and Address Organization Details Recorded Time 09/29/2024 text/html Renato is seen today for initial intake. He is a 64 yo man, just discharged from [facility] 09/27. returned him to the facility as she could not take care of him at home. Upon exam, Renato is in his bed, resting. He is sad to be back but has no complaints and is feeling good.VSS. He had been here since 08/20 after 2 hospitalizations initially for right BKA due to severe PVD and then for failed d/c from acute rehab with hyperkalemia and UMAIR on CKD.He had done well with rehab, and was to continue rehab at home.Upon discharge he had f/u set up with PCP/renal and fast food cook.He developed an abscess of his low back/upper buttock while here, was treated locally with dressings as well as oral keflex.Labs upon discharge revealed leukocytosis 12.6 and elevated Creat. 3.72. His PMH includes HTN, severe PVD s/p right BKA on 07/21/24, AODM with neuropathy, CKD stage 4, hx of Hep C from tattoo, latent Tb (txed in 2020), HLD, and cigarette smoker. ISABEL SAUNDERS NP [address], [address], [place], [address], [facility] 09/29/2024 15:14:57 09/30/2024 text/html This is a 64 yo man who was d/c to home on 09/27 after a stay here from 08/20-09/27 for rehab after a right BKA and then for rehospitalization after d/c from acute rehab due to complications of hyperkalemia and UMAIR on CKD.On 09/26 he was feeling good about going home and felt that he had learned to maneuver well since being here.He was to f/u with PCP about wound on back and worsening renal function.He was going to push fluids and VNA was going to recheck labs today. After return home on 09/27, apparently SO did not feel like she could care for him adequately. She reportedly said he was peeing all over the place and had bedbugs .She dropped him off here in the AM on 09/29.After consultation with [facility] we were able to admit him, unclear if to long-term care or continued rehab.He was supposed to have labs rechecked today, but he refused. He tells me I didn't feel like it . He didn't remember the conversation we had on 09/26 about needing labs checked today due to worsening renal function. He tells me he feels great and is happy to be back here. He likes it here.He says he and SO of 14 yrs are breaking up. Things have gotten bad since the amp.He plans on getting a 1 bedroom apt and increased services. His PMH includes HTN, severe PVD s/p right BKA on 07/21/24, AODM with neuropathy, CKD stage 4, hx of Hep C from tattoo, latent Tb (txed in 2020), HLD, and cigarette smoker. Janice Mitchell MD [address] [place] [address], [address], [place], [address], [facility] 09/30/2024 16:14:41 10/13/2024 text/html Pt is seen for a n acute rounding visit today. His PMH includes HTN, severe PVD s/p right BKA on 07/21/24, AODM with neuropathy, CKD stage 4, hx of Hep C from tattoo, latent Tb (txed in 2020), HLD, and cigarette smoker. This is a 64 yo man who was d/c to home on 09/27 after a stay here from 08/20-09/27 for rehab after a right BKA and then for rehospitalization after d/c from acute rehab due to complications of hyperkalemia and UMAIR on CKD. note; On 09/26 he was feeling good about going home and felt that he had learned to maneuver well since being here. He was to f/u with PCP about wound on back and worsening renal function.He was going to push fluids and VNA was going to recheck labs today. After return home on 09/27, apparently SO did not feel like she could care for him adequately. He plans on getting a 1 bedroom apt and increased services in near future when he is able to do more. Pt states he is willing to trial some nicorette gum and cut back on smoking today. will order. On exam, Renato is feeling well in general. He reports his abcess is healed, however on exam it is healing with pink area and drainage pinpoint hole closing, no drainage today. His BKA R is c/d/i and he states he is getting his prosthetic on 10/21/24 and excited to get his legs and life back . Last labs 10/03 with notable histoy of renal failure, will order labs. Seems he may have refused a few times. Oksana Lennon, TANYA [address], [address], [place], [address], [facility] 10/13/2024 10:38:23 10/21/2024 text/html Pt is seen for a 90 day routine rounding visit today. His PMH includes HTN, severe PVD s/p right BKA on 07/21/24, AODM with neuropathy, CKD stage 4, hx of Hep C from tattoo, latent Tb (txed in 2020), HLD, and cigarette smoker. Renato is 64 yo man here at [facility] for rehab who d/c'd to home on 09/27/24 after a stay here from 08/20-09/27 for rehab after a right BKA and then for rehospitalization. On 09/29 he returned here after not being able to care for himself at home. His was unable to care for him with his BKA. He also was noted to angioedema of his lip for a few days without clear cause. Resolved with a few days of benedryl. He was also noted to have a carbuncle to his right upper buttocks now resolved with abx. He has received his television maintenance man and site of BKA well healed. His prosthetic should be in this week. He is aware he should stay a few days to make should he has proper training and guidance to use the prosthetic here with therapy and then consider dc home. On exam, he is seen lying in bed in [facility]. He is excited to get his prosthetic this week and get back to his old life. He denies any new concerns. Unclear if weight is accurate at 182 lbs this week which would be down form 198 lbs on admission. Will have another weight done. Denies any vomiting or decreased eating today. Oksana Lennon, TANYA [address], [address], [place], [address], [facility] [employer] 10/21/2024 17:16:46 11/11/2024 text/html Pt is seen for a discharge summary. His PMH includes HTN, severe PVD s/p right BKA on 07/21/24, AODM with neuropathy, CKD stage 4, hx of Hep C from tattoo, latent Tb (txed in 2020), HLD, and cigarette smoker. Renato is 64 yo man here at [facility] for rehab who d/c'd to home on 09/27/24 after a stay here from 08/20-09/27 for rehab after a right BKA and then for rehospitalization. On 09/29 he returned here after not being able to care for himself at home. His was unable to care for him with his BKA. He also was noted to angioedema of his lip for a few days without clear cause. Resolved with a few days of benedryl and no reoccurance here. He was also noted to have a carbuncle to his right upper buttocks resolved with abx. He has received his television maintenance man and site of BKA well healed. He received his prosthetic this week. He is aware he should stay a few days to make should he has proper training and guidance to use the prosthetic here with therapy and then consider dc home, however wishes to leave tomorrow am. He does not have his prosthetic on as he states it is too tight. He reports he will fu with the prosthetic place on Thursday morning. His television maintenance man is applied at this visit and he is aware the television maintenance man is almaraz to wear to keep the swelling down. On exam, He states he is going home with , has walker and cane, and will be just fine . He denies any other complaints or concerns. Lung CTA in NAD. Oksana Lennon NP [address], [address], [place], [address], [facility] [employer] 11/11/2024 08:43:30
--- OUTSIDE RECORDS SUMMARY | 2025-04-05 10:50 | XMS_ITS | Encounter Summary ---
Author Organization [facility] Address [address] [place] [address] Care Team Providers Care Show Jumping Instructor Name Role Phone Travis Au MD Primary Care Provider [phone] Encounter Details Date Type Department Care Team (Latest Contact Info) Description 11/01/2024 Lab Requisition [facility] - Main Lab [address] [place] [address] Brandon Mckeon MD [address] [place] [address] Type 2 diabetes mellitus without [...] LAB CHEMISTRY METHOD 11/02/2024 12:37 PM EST [facility] ([facility] Potassium 5.1 3.5 - 5.5 [...] [facility] Comment:Calculation based on the [...] MD LAB BLOOD ORDERABLES Final Resu lt [facility] [address] [place] [address], [place] [phone] * (ABNORMAL) Complete blood count (11/02/2024 7:04 AM EST) [facility] WBC 8.5 4.8 - 10.8 K/mcL LAB [...] LAB HEMETOLOGY METHOD 11/02/2024 12:23 PM EST [facility] ([facility] Blood Venous blood specimen / Unknown Venipuncture / Unknown 11/02/2024 7:04 AM EST 11/02/2024 11:13 AM EST us Brandon Mckeon MD LAB BLOOD ORDERABLES Final Resu lt [facility] [address] [place] [address], documented in this encounter Visit Diagnoses Diagnosis Type 2 diabetes mellitus without complications (CMS/HCC V24, CMS/HCC V28) documented in this encounter Care Teams Show Jumping Instructor Relationship Specialty Start Date End Date Travis Au MD [address] [place] [address], [phone] PCP - General Family Medicine 08/22/24 documented as of this encounter
[2025-04-05 11:05] LABS: Hematocrit 27.3 % (42.0-52.0); Hemoglobin 8.5 g/dl (14.0-18.0); Imm Gran Abs Auto 0.06 X10*3/uL (0.00-0.03); Imm Gran Pct Auto 0.8 % (0.0-0.4); Lymphocytes Absolute Auto 1.7 X10*3/uL (1.2-4.9); Mean Corpuscular HGB Conc 31.1 g/dl (31.0-36.0); Mean Corpuscular Hemoglobin 27.9 pg (27.0-33.0); Mean Corpuscular Volume 89.5 fL (80.0-98.0); NRBC Abs Auto 0.000 X10*3/uL (0.0-0.012); NRBC Pct Auto 0.0 /100WBC (0.0-0.2); Platelet Count 219 X10*3/uL (160-400); Red Blood Count 3.05 X10*6/uL (4.60-5.80); White Blood Count 7.9 X10*3/uL (4.8-10.8)
[2025-04-05 11:47] LABS: Anion Gap 16 (12-20); Blood Urea Nitrogen 65 mg/dL (9-16); Calcium 8.1 mg/dL (8.4-10.2); Carbon Dioxide 18 mmol/L (22-29); Chloride 109 mmol/L (96-108); Estimated Glomerular Filt Rate 7; Potassium 4.4 mmol/L (3.3-5.1); Sodium 139 mmol/L (135-145)
== END 2025-04-05 10:16 | disposition home or self-care (01) ==
LOC: HO.LAB 10:15
PROVIDERS: PCP Internal Medicine; Visit Provider Internal Medicine Nephrology
DX: N18.4 Chronic kidney disease, stage 4 (severe) (principal); D63.1 Anemia in chronic kidney disease; I15.0 Renovascular hypertension; N25.81 Secondary hyperparathyroidism of renal origin; N17.9 Acute kidney failure, unspecified; E55.9 Vitamin D deficiency, unspecified
CPT/HCPCS: 36415; 80051; 82306; 82310; 82565; 84100; 84520; 85025

== ENCOUNTER 2025-04-06 14:45 | Outpatient (REF) | payer OTHER, SELFPAY ==
[2025-04-06 14:48] LABS: MANUAL DIFF FLAG NO
--- OUTSIDE RECORDS SUMMARY | 2025-04-06 14:48 | XMS_ITS | Clinical Summary ---
Author Organization [facility] Address [address] [facility] [address] [place] [address] Phone Care Team Providers Care Finish Carpenter Name Role Phone Michelle Long MD Primary Care Provider [phone] Allergies Active Allergy Reactions Criticality Noted Date [...] Telephone [facility] [address] [place] [address] Sydney Rosales from Last 3 Months Family [...] to 49 Years) Discontinued 07/01/2010 Insurance [address] [place] [id number] [facility] ([id number]) MAHESH MACIAS [id number] [facility] [employer] ([id number]) Care Teams Finish Carpenter Relationship Specialty Start Date End Date Michelle Long MD [address] [place], [place] PCP - General Internal Medicine 10/06/23
--- OUTSIDE RECORDS SUMMARY | 2025-04-06 14:48 | XMS_ITS | Data Portability ---
Author Organization [facility] [email or web address] [facility], Main Office Address [address] [place] [address] Care Team Providers Care Sales Contracts Analyst Name Role Phone CANDIS BECK - 2ND FLOOR OTHER KENIA BUITRAGO Primary Care Provider [phone] Assessment Encounter Date Assessment Date Assessment LastModified by Organization Details LastModified Time 09/29/2024 09/29/2024 Spent 30 reviewing records, seeing pt, consulting with staff and documenting [email or web address] Not available 09/29/2024 15:04:55 11/11/2024 11/11/2024 Greater than 30 minutes of assessment, education, applying online journalist, discharge planning and documentation today. Not available [...] Organization Details Recorded Time Peripheral vascular disease 596296029 Active 2023 Oksana Lennon NP [address] , [address], [place], [address], [facility] 4 17:52:49 Adult failure to thrive syndrome 346791688 Active 2023 Oksana Lennon NP [address], [address], [place], [address], [facility] 4 17:53:00 Type 2 diabetes mellitus 73620741 Active 2023 Oksana Lennon NP [address] , [address], [place], [address], [facility] 4 17:53:10 Hypertensive disorder 43569922 Active 2023 Oksana Lennon NP [address], [address], [place], [address], [facility] 4 17:53:15 Benign prostatic hyperplasia 344553102 Active 2023 Oksana Lennon NP [address], [address], [place], [address], [facility] 4 17:53:22 Hyperkalemia 04945735 Active 2023 Oksana Lennon NP [address] [facility], [address], [place], [address], [facility] 4 17:53:30 Chronic kidney disease stage 4 301255368 Active 2023 Oksana Lennon NP [address] [facility], [address], [place], [address], [facility] 4 17:54:21 Hyperlipidemia 98627334 Active 2023 Oksana Lennon NP [address] [facility], [address], [place], [address], [facility] 4 18:13:13 Smoker 56344630 Active 2023 Oksana Lennon NP [address] [facility], [address], [place], [address], [facility] 4 18:15:45 Problem Notes None recorded. Medical Equipment None Reported. Allergies Allergen ID Allergen Name Allergen Category Reaction Reaction Severity Criticality Documentation Date Start Date Code Code System Note Provider Name and Address Organization Details Recorded Time 01808 morphine medicatio n itching Not available low 08/22/2024 7052 RxNorm Janice Mitchell MD [address], [address], [place], [address], [facility] 4 20:23:08 93979 bupropion Not available confusion hallucina tions Not available Not available Not available 08/22/2024 15933 RxNorm tremo rs, aggre ssive , loss of appet ite Janice Mitchell MD [address] [facility], [address], [place], [address] , [facility] 4 20:23:00 Vitals Date Recorded Body height Body weight Body mass index (BMI) Heart rate Respiratory rate Body temperature Oxygen saturation Oxygen saturation in Arterial blood by Pulse oximetry Systolic And Diastolic Provider Name and Address Organization Details Last Updated DateTime 5 179.83 cm 88713.8 1 g 25.5 kg/m2 62 /min 16 /min 98.2 [degF] 96 % 96 % 146/74 mm[Hg] Oksana Lennon NP [address] [facility] [address], [place], [address], [facility] 5 10:26:07 Date Recorded Body height Body weight Body mass index (BMI) Heart rate Respiratory rate Body temperature Oxygen saturation Oxygen saturation in Arterial blood by Pulse oximetry Systolic And Diastolic Provider Name and Address Organization Details Last Updated DateTime 5 179.83 cm 38895.8 1 g 25.5 kg/m2 68 /min 18 /min 97.2 [degF] 96 % 96 % 158/65 mm[Hg] Oksana Lennon NP [address] [place] [address], [facility] [address], [place], [address], [facility] 5 16:59:12 Date Recorded Body height Body mass index (BMI) Body weight Heart rate Respiratory rate Body temperature Oxygen saturation Oxygen saturation in Arterial blood by Pulse oximetry Systolic And Diastolic Provider Name and Address Organization Details Last Updated DateTime 5 179.83 cm 24.1 kg/m2 34710.8 9 g 71 /min 19 /min 97.9 [degF] 97 % 97 % 162/81 mm[Hg] Oksana Lennon NP [address] [place] [address], [facility] [address], [place], [address], [facility] 5 08:22:41 Date Recorded Body height Heart rate Respiratory rate Body temperature Oxygen saturation Oxygen saturation in Arterial blood by Pulse oximetry Systolic And Diastolic Provider Name and Address Organization Details Last Updated DateTime 4 179.83 cm 70 /min 18 /min 98 [degF] 98 % 98 % 132/75 mm[Hg] ISABEL SAUNDERS NP [address] [facility], [address], [place], [address], [facility] 4 15:05:47 Date Recorded Body height Body mass index (BMI) Body weight Heart rate Respiratory rate Body temperature Oxygen saturation Oxygen saturation in Arterial blood by Pulse oximetry Systolic And Diastolic Provider Name and Address Organization Details Last Updated DateTime 4 179.83 cm 28.2 kg/m2 61033.0 7 g 77 /min 18 /min 98 [degF] 98 % 98 % 132/75 mm[Hg] Janice Mitchell MD [address] [facility], [facility] [address], [place], [address], [facility] 4 15:06:09 Social History Question Answer Notes LastModified by Organizat ion Details LastModified Time Tobacco Smoking Status Current Every Day Smoker Oksana Lennon NP [address] [facility], [address], [place], [address], [facility] 08/22/2024 17:36:42 What Is Your Code Status? Full Code Information not available 08/22/2024 Where Do You Live? 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 Yes Has HCP [email or web address] Information not available 08/23/2024 What Was The Date Of Your Most Recent Tobacco Screening? 08/22/2024 Information not available 08/22/2024 Do You Have An Out Of Hospital DNR? Yes Information not available 08/23/2024 What Is Your [...] Recorded Time Tdap 09/04/2023 completed [facility] 10/04/2024 14:59:23 influenza, unspecified formulation 06/27/2022 completed [facility] 10/04/2024 14:59:38 influenza, unspecified formulation 06/26/2023 completed Bri [facility] 10/04/2024 14:59:46 SARS-COV-2 (COVID-19) vaccine, UNSPECIFIED 10/16/2020 completed [facility] 10/04/2024 15:00:00 SARS-COV-2 (COVID-19) vaccine, UNSPECIFIED 11/06/2020 completed [facility] 10/04/2024 15:00:07 SARS-COV-2 (COVID-19) vaccine, UNSPECIFIED 06/02/2021 completed [facility] 10/04/2024 15:00:15 SARS-COV-2 (COVID-19) vaccine, UNSPECIFIED 06/27/2022 completed [facility] 10/04/2024 15:00:22 SARS-COV-2 (COVID-19) vaccine, UNSPECIFIED 06/26/2023 completed [facility] 10/04/2024 15:00:37 Past Encounters Encounter ID Performer Location Encounter Start Date Encounter Closed Date Diagnosis/Indication Diagnosis SNOMED-CT Code Diagnosis ICD10 Code Diagnosis Note [id number] Oksana Lennon NP [address] [address] 08/22/2024 14:49:44 08/23/2024 10:31:07 Adult failure to thrive syndrome 521154911 R62.7 supportive carept /ot eval and treat for rom, mobility, strengthen ing, gait, balancemon itor for need to adjust careplan Hypertensive disorder 38 906658 I10 amlodipine 10 mg po qdmetoprol ol xl 100 mg po qdhydralaz ine 50 tidmonitor bp and need to adjust Hyperkalemia 13962090 E8 7.5 renal diet, low potassiuml okelma 10 g qdsodium bicarb 650 mg po bidcbc and bmp weekly x 3 weeks Chronic ki dney disease stage 4 600663056 N18.4 renal diet, low potassiumw as educated in hospital about diet, cont here with dieticainb aseline 2.5-3lokel ma 10 g qdsodium bicarb 650 mg po bidfu with nephrology Dr Perez ? Dr Mc 2 weeks Peripheral vascular disease 328423693 I73.9 with BKA Right and [address] and severe vascuopath yxarelto 2.5 mg po bidoxycodo ne 5 mg po q 8 hours prn paintyl prnPT/OT eval and treatfu plan:[facility] [facility] 12/3 3pm and 330 pm and 09/08 1:30 pmwill leave open to air for nowmonitor for s/s of infection Type 2 kishor betes mellitus 43315351 E11.21 farxiga 10 mg po qdlispro tid ac SSImonitor BS and adjust as needed Benign pro static hyperplasia 820864238 N40.0 tamsulosin 0.4 mg po dailyfinas teride 5 mg po qdmonitor Hyperlipidemia 24109416 E78.5 atorvastat in 10 mg po qdaspirin 81 mg po qdmonitor Smoker 55452963 F17.200 pt is chronic smokereduc ated 3-10 minutes and refuses NRT or to quitplan is to continue smokingmon itor for readiness to quit with chronic disease [id number] Janice Mitchell MD [facility] [address] 08/23/2024 19:50:37 08/29/2024 13:25:12 Adult failure to thrive syndrome 014524125 R62.7 PT/OT as above.Astrid tor mood and po intake.Psy ch consult prn Hypertensive disorder 38 663901 I10 Some borderline SBPs since here, but diastolics all low normal or low.No change in meds for nowContinu e amlodipine 10 mg qd, metoprolol succinate 100 mg qd, and hydralazin e 50 mg TID.Monito r BP and labs Hyperkalemia 57698262 E8 7.5 In good control on current regimen.Co ntinue renal diet, Lokelma 10 g qd and sodium bicarb 650 mg BID.Monito r labs. Chronic ki dney disease stage 4 702649712 N18.4 At baseline.C ontinue to avoid nephrotoxi c meds as able.Monit or labs.Renal f/u as planned. Peripheral vascular disease 981408938 I73.89 Z89.511 Recovering well from BKA on [...] this week. Type 2 kishor betes mellitus 51025938 E11.21 Sugars in good control since here.Last HgA1C was 7.4 in 03/2024, and 6.4 on 08/22/24.C ontinue Farxiga 10 mg qd and SSI.Monito r fingerstic ks TID and HgA1C q 3 months. Benign pro static hyperplasia 793784969 N40.0 No current sxs.Contin ue tamsulosin 0.4 mg qd and finasterid e 5 mg qdMonitor urinary function. Hyperlipidemia 63090656 E78.49 Continue atorvastat in 10 mg qd and ASA 81 mg qdMonitor labs as outpt. Smoker 78585856 F17.213 Earlier told someone he was jonesing for a cigarette , but tells me he is considerin g quitting.N ot interested in NRT, says he has had bad rxns.Sole nue to encourage cessation. [id number] Oksana Lennon NP [address] [address] 09/08/2024 12:24:42 09/12/2024 13:04:51 Peripheral vascular disease 396443869 I73.89 Z89.511 Recovering well from BKA on [...] leg Adult fail ure to thrive syndrome 839230772 R62.7 PT/OT as above.Astrid tor mood and po intake.Psy ch consult prn Hypertensive disorder 38 579644 I10 bp stableCont inueamlodi pine 10 mg qdmetoprol ol succinate 100 mg qd,hydrala zine 50 mg TID.Monito r BP and labs Hyperkalemia 59141772 E8 7.5 In good control on current regimen.Co ntinue renal diet (low k)Lokelma 10 g qdsodium bicarb 650 mg BID.Monito r labs. not done this week, will reorder Chronic ki dney disease stage 4 497533089 N18.4 At baseline.C ontinue to avoid nephrotoxi c meds as able.monit or bmp for increased kcont sodium bicarbonat e bidMonitor labs.Renal f/u as planned. Type 2 kishor betes mellitus 98808034 E11.21 BS stableLast HgA1C was 7.4 in 03/2024, and 6.4 on 08/22/24.C ontinueFar xiga 10 mg qd and SSI.Monito r fingerstic ks TID and HgA1C q 3 months. Benign pro static hyperplasia 973936856 N40.0 No current sxs.Contin uetamsulos in 0.4 mg qd and finasterid e 5 mg qdMonitor urinary function. Hyperlipidemia 67914287 E78.49 Continueat orvastatin 10 mg qd and ASA 81 mg qdMonitor labs as outpt. Smoker 82875726 F17.213 continues to smokeNot interested in NRT, says he has had bad rxns.educsilvestre tate on smoking cessationC ontinue to encourage cessation. [id number] Oksnaa Lennon NP [facility] [address] 09/14/2024 14:33:03 09/16/2024 14:16:40 Peripheral vascular disease 345419019 I73.89 Z89.511 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, but having trouble with amp emotionall y and trouble caring for himself.ov erall doing much better and healing in, incision closedCont inue fall precaution s.Monitor for safety.Con tinueXarel to 2.5 mg BID for DVT prophylaxi s.dc oxycodone 5 mg q 8 hrs prn, has not used in septemberAP AP 650 mg q 4 hrs prn.09/08 rehan ordered and faxed to [facility] with appt 09/15fu in spring for further testing of left leg with vascular outpt and prn Adult fail ure to thrive syndrome 954153617 R62.7 Monitor mood and intakePsyc h consult prn Hypertensive disorder 38 322075 I10 bp stable hereContin ueamlodipi ne 10 mg qdmetoprol ol succinate 100 mg qd,hydrala zine 50 mg TID.Monito r BP and labs outpt with pcplabs ordered but not done, will attempt tomorrow again Hyperkalemia 85583422 E8 7.5 In good control on current regimen.Co ntinue renal diet (low k)Lokelma 10 g qdsodium bicarb 650 mg BID.Monito r labs. not done this week, will reorder for ed am again before dc(unclear why labs aren't done, question difficult stick? )fu with pcp Chronic ki dney disease stage 4 860431193 N18.4 At baseline.C ontinue to avoid nephrotoxi c meds as able.conts odium bicarbonat e bidMonitor labs outpt with pcpRenal f/u as planned. Type 2 kishor bettorres mellitus 16293065 E11.21 BS stableLast HgA1C was 7.4 in 03/2024, and 6.4 on 08/22/24.C ontinueFar xiga 10 mg qd and SSI.Monito r fingerstic ks TID and HgA1C q 3 months Benign pro static hyperplasia 457521744 N40.0 No current sxs.Contin uetamsulos in 0.4 mg qd and finasterid e 5 mg qdMonitor urinary function Hyperlipidemia 61906516 E78.49 Continueat orvastatin 10 mg qd and ASA 81 mg qdMonitor labs with pcp prn Smoker 94528971 F17.213 continues to smokeNot interested in NRT, says he has had bad rxns.educsilvestre tate on smoking cessationC ontinue to encourage cessation [id number] Oksana Lennon NP [address] [address] 09/21/2024 13:09:13 09/22/2024 12:24:03 Peripheral vascular disease 495952956 I73.89 Z89.511 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, but having trouble with amp emotionall y and trouble caring for himself.ov erall doing much better and healing in, incision closedCont inue fall precaution s.Monitor for safety.Con tinueXarel to 2.5 mg BID for DVT prophylaxi s.APAP 650 mg q 4 hrs prn.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 so he can get prothetic soon.will fu with [facility] prothetics fu in spring for further testing of left leg with vascular outpt and prn Adult fail ure to thrive syndrome 594619013 R62.7 Monitor mood and intakePsyc h consult prn Hypertensive disorder 38 096427 I10 bp stable 118/64Cont inueamlodi pine 10 mg qdmetoprol ol succinate 100 mg qd,hydrala zine 50 mg TID.Monito r BP and labs outpt with pcp Hyperkalemia 55517978 E8 7.5 In good control on current regimen.Co ntinue renal diet (low k)Lokelma 10 g qdsodium bicarb 650 mg BID.Monito r labs.fu with renal Chronic ki dney disease stage 4 018316581 N18.4 At baseline.C ontinue to avoid nephrotoxi c meds as able.conts odium bicarbonat e bidRenal f/u as planned. Type 2 kishor betes mellitus 04848251 E11.21 BS stableHgA1 C was 7.4 in 03/2024, and 6.4 on 08/22/24 improvedCo ntinueFarx iga 10 mg qd and SSI.Monito r fingerstic ks TID and HgA1C q 3 months Benign pro static hyperplasia 331100336 N40.0 No current sxs.Contin uetamsulos in 0.4 mg qd and finasterid e 5 mg qdMonitor urinary function [id number] Oksana Lennon, TANYA [facility] [address] [address] 09/22/2024 12:31:57 09/26/2024 12:28:42 Peripheral vascular disease 046717812 I73.89 Z89.511 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, but having trouble with amp emotionall y and trouble caring for himself.ov erall doing much better and healing in, incision closedCont inue fall precaution s.Monitor for safety.Con tinueXarel to 2.5 mg BID for DVT prophylaxi s.APAP 650 mg q 4 hrs prn.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 so he can get prothetic soon.will fu with [facility] prosthetic sfu in spring for further testing of left leg with vascular outpt and prn Adult fail ure to thrive syndrome 363535718 R62.7 Monitor mood and intakePsyc h consult prn Hypertensive disorder 38 280637 I10 stableCont inueamlodi pine 10 mg qdmetoprol ol succinate 100 mg qd,hydrala zine 50 mg TID.Monito r BP and labs outpt with pcp Hyperkalemia 07904746 E8 7.5 In good control on current regimen.Co ntinue renal diet (low k)Lokelma 10 g qdsodium bicarb 650 mg BID.Monito r labs.fu with renalfu labs cbc and bmp 09/26 Chronic ki dney disease stage 4 964078253 N18.4 At baseline.C ontinue to avoid nephrotoxi c meds as able.conts odium bicarbonat e bidRenal f/u as planned. Type 2 kishor betes mellitus 10508555 E11.21 BS stableHgA1 C was 7.4 in 03/2024, and 6.4 on 08/22/24 improvedCo ntinueFarx iga 10 mg qd and SSI.Monito r fingerstic ks TID and HgA1C q 3 months Benign pro static hyperplasia 500961769 N40.0 No current sxs.Contin uetamsulos in 0.4 mg qd and finasterid e 5 mg qdMonitor urinary function Furuncle of buttock 1243 0003 L02.32 large abcess on posterior right upper buttock likely [id number] /19start cephalexin 500 mg po q 8 hours (will decrease from q6 hr dosing due to poor renal fx)x 7 days with probioticn s wash, pat dry, and apply foam dressing to areamonito r for s/s of infectionc bc and bmp on 09/26cons ider wound consult Angioedema of lip 516147 005 T78.3XXA pt with angioedema to only the lower lip without other difficulty breathing, swallowing , large tongue, or hivespt states no new food, meds, or cause09/22 unclear etiology without and sarita or arb mediations start benedryl 50 mg po now and 50 mg po qhs and monitor closelyclo sely monitor for irritiants , worseningt o er if any s/s of resp distress, diff swallowing , or increased swelling [id number] [facility] [address] 09/23/2024 08:41:31 09/26/2024 14:26:31 Angioedema of lip 847224064 T78.3XXA pt with angioedema to only the [...] medication s if reoccurs Peripheral vascular disease 928786947 I73.89 Z89.511 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, but having trouble with amp emotionall y and trouble caring for himself.ov erall doing much better and healing in, incision closedCont inue fall precaution s.Monitor for safety.Con tinueXarel to 2.5 mg BID for DVT prophylaxi s.APAP 650 mg q 4 hrs prn.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 so he can get prothetic soon.will fu with [facility] sfu in spring for further testing of left leg with vascular outpt and prn Adult fail ure to thrive syndrome 001643194 R62.7 Monitor mood and intakePsyc h consult prn Hypertensive disorder 38 314170 I10 stableCont inueamlodi pine 10 mg qdmetoprol ol succinate 100 mg qd,hydrala zine 50 mg TID.Monito r BP and labs outpt with pcp Hyperkalemia 61675755 E8 7.5 In good control on current regimen.Co ntinue renal diet (low k)Lokelma 10 g qdsodium bicarb 650 mg BID.Monito r labs.fu with renalfu labs cbc and bmp 09/26 Chronic ki dney disease stage 4 300830631 N18.4 At baseline.C ontinue to avoid nephrotoxi c meds as able.conts odium bicarbonat e bidRenal f/u as planned. Type 2 kishor betes mellitus 19976577 E11.21 BS stableHgA1 C was 7.4 in 03/2024, and 6.4 on 08/22/24 improvedCo ntinueFarx iga 10 mg qd and SSI.Monito r fingerstic ks TID and HgA1C q 3 months Benign pro static hyperplasia 289142595 N40.0 No current sxs.Contin uetamsulos in 0.4 mg qd and finasterid e 5 mg qdMonitor urinary function Carbuncle of buttock 762 12744 L02.33 large golf ball size abcess on [...] to assess renal func and for infection [id number] Janice Mitchell MD [address] [address] 09/26/2024 19:01:26 09/27/2024 08:53:46 Carbuncle of buttock 77748249 L02.33 Improving. Continue cephalexin 500 mg q 8 hrs until 09/29 with probiotic BID.Contin ue wound care as ordered.To be seen by wound care in AM before d/c.F/U with PCP as outpt. Angioedema of lip 640419 005 T78.3XXA ResolvedFi brandon prednisone taper.Astrid tor for recurrence . 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 Adult fail ure to thrive syndrome 255242728 R62.7 Much improved.F /U with PCP as outpt. Hypertensive disorder 38 127974 I10 In good control.Co ntinue amlodipine 10 mg qd, metoprolol succinate 100 mg qd, and hydralazin e 50 mg TID.F/U with PCP as outpt. Hyperkalemia 13951354 E8 7.5 Remains WNL, but sl. higher than 09/15, likely due to UMAIR.Contin ue renal diet (low k)Continue NaHCO3 as above and Lokelma 10 gms qdWill order repeat labs for 09/29 with [facility]. Chronic ki dney disease stage 4 541803285 N18.4 With sig worsening today compared to 09/15Enc raged pt to drink more fluids.Con tinue to avoid nephrotoxi c meds as able.Sole nue sodium bicarbonat e 650 mg BID.Renal f/u as planned. Type 2 kishor betes mellitus 74405876 E11.21 BS mostly in ood control since here with occ high readingHgA 1C was 7.4 in 03/2024, and 6.4 on 08/22/24 improvedCo ntinue Farxiga 10 mg qd and SSI.F/U with PCP as outpt. Benign pro static hyperplasia 049187624 N40.0 No sxs. since here.Sole nue tamsulosin 0.4 mg qd and finasterid e 5 mg qdF/U with PCP as outpt. Hyperlipidemia 50240548 E78.49 Continue atorvastat in 10 mg qd and ASA 81 mg qdMonitor labs as outpt. Smoker 88476239 F17.213 Has been smoking since here.Refus ed NRT.Contin ue to encourage cessation. [id number] ISABEL SAUNDERS, TANYA [address] [address] 09/29/2024 15:04:27 09/30/2024 12:02:02 Chronic kidney disease stage 4 059853477 N18.4 With sig worsening 09/26 compared to 09/15Enc rage fluids.Con tinue to avoid nephrotoxi c meds as able.Follo w up with Nephrology as sched.Cont inue sodium bicarbonat e 650 mg BID.CMP in am Hyperkalemia 45460047 E8 7.5 Remains WNL, but sl. 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 Carbuncle of buttock 762 72259 L02.33 Improving. Continue cephalexin 500 mg q 8 hrs until complete, as well as probiotic BID.Contin ue wound care as ordered.To be seen by wound care in AM before d/c.F/U with PCP as outpt. Angioedema of lip 025107 005 T78.3XXA ResolvedFi brandon prednisone taper.Astrid tor for recurrence . Adult fail ure to thrive syndrome 537893484 R62.7 Much improved.F /U with PCP as outpt. Hypertensive disorder 38 597934 I10 In good control.Co ntinue amlodipine 10 mg qd, metoprolol succinate 100 mg qd, and hydralazin e 50 mg TID.F/U with PCP as outpt. Type 2 kishor betes mellitus 26368142 E11.21 BS mostly in good control since here with occ. high readingHgA 1C was 7.4 in 03/2024, and 6.4 on 08/22/24 improvedCo ntinue Farxiga 10 mgBS bid once a week and prnF/U with PCP as outpt. Benign pro static hyperplasia 040523842 N40.0 No sxs. since here.Sole nue tamsulosin 0.4 mg qd and finasterid e 5 mg qdF/U with PCP as outpt. Hyperlipidemia 51043913 E78.49 Continue atorvastat in 10 mg qd and ASA 81 mg qdMonitor labs as outpt. Smoker 36658021 F17.213 Has been smoking since here.Refus ed NRT.Contin ue to encourage cessation. [id number] Janice Mitchell MD [facility] [address] 09/30/2024 14:58:21 10/03/2024 12:45:37 Chronic kidney disease stage 4 681164294 N18.4 With sig worsening on 09/26 compared to t was going to drink more fluids at home and he says he did.Contin ue to avoid nephrotoxi c meds as able.Sole nue sodium bicarbonat e 650 mg BID.Renal f/u as planned.La bs were to be rechecked today, but pt refused.Pr omises he will allow lab draw on Wednesday 10/03. Hyperkalemia 77061388 E8 7.5 Remains WNL, but was sl. higher on 09/26 than 09/15, likely due to UMAIR.Contin ue renal diet (low k)Continue NaHCO3 as above and Lokelma 10 gms qdLabs on 10/03 as above. 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 Carbuncle of buttock [id number] 79282 L02.33 Improving per pt.Wound care note from 09/27 not scanned in to P[facility] yet.Contin ue cephalexin 500 mg q 8 hrs until 10/02 with probiotic BID.Contin ue wound care as ordered.F/ U with wound care weekly until healed. Angioedema of lip 326889 005 T78.3XXA ResolvedHa s completed prednisone taper.Astrid tor for recurrence . Adult fail ure to thrive syndrome [id number] R62.7 Much improved.C ontinue liquid protein 30 mg qd to help with wound healing.En courage healthy eating. Hypertensive disorder 38 455962 I10 Remains in good control.Co ntinue amlodipine 10 mg qd, metoprolol succinate 100 mg qd, and hydralazin e 50 mg TID.Monito r BP and labs. Type 2 kishor betes mellitus 52346305 E11.21 Very good since return, all <150.HgA1C was 7.4 in 03/2024, and 6.4 on 08/22/24.C ontinue Farxiga 10 mg qd and SSI.If sugars remain <200 consistent ly can change TID fingerstic ks to qAM. Benign pro static hyperplasia 540296549 N40.0 No sxs. since here.Sole nue tamsulosin 0.4 mg qd and finasterid e 5 mg qdMonitor urinary function. Hyperlipidemia 90297349 E78.49 Continue atorvastat in 10 mg qd and ASA 81 mg qdMonitor labs yearly. Smoker 32078565 F17.213 Continues to smoke.Cont inues to refuse NRT.Contin ue to encourage cessation. [id number] Oksana Lennon NP [place] [address] [place] [address] 10/13/2024 10:10:33 10/14/2024 10:47:39 Chronic kidney disease stage 4 [id number] N18.4 With sig worsening on 09/26 compared to t was going to drink more fluids at home and he says he did.Contin ueavoid nephrotoxi c meds as able.sodiu m bicarbonat e 650 mg BID.Renal f/u as planned.La bs ordered for bmp and cbc on 10/19 on thu x 2labs as above Hyperkalemia 55738039 E8 7.5 Remains WNL, but was sl. higher on 09/26 than 09/15, likely due to UMAIR.Contin uerenal diet (low k)NaHCO3 as aboveLokel ma 10 gms qdLabs on 10/03 as above.bmp and cbc 10/19 ordered Peripheral vascular disease [id number] I73.89 Z89.511 Has recovered well from r BKA on 07/21.plan for prothetic on 10/21 per pt.Continu eXarelto 2.5 mg BID for DVT prophylaxi s (not sure how long he needs to be on this).Cont inue APAP 650 mg q 4 hrs prn.Contin ue online journalist and f/u with prosthetis t as planned.F/ U with vascular as planned. Carbuncle of buttock 762 18872 L02.33 Improving per pt.mostly healedCont inuecomple lea cephalexin 500 mg q 8 hrs until 10/02 with probiotic BID.Contin ue wound care as ordered.F/ U with wound care weekly until healed.ratna l order zinc cream to right upper abcess buttock qd until healedmoni tor for s/s of infection Adult fail ure to thrive syndrome 455450722 R62.7 Much improved.E ncourage healthy eating. Hypertensive disorder 38 491028 I10 Remains in good control.Co ntinueamlo dipine 10 mg qd, metoprolol succinate 100 mg qd, and hydralazin e 50 mg TID.Monito r BP and labs. Type 2 kishor bettorres mellitus 68254612 E11.21 Very good since return, all <150.HgA1C was 7.4 in 03/2024, and 6.4 on 08/22/24.C ontinue Farxiga 10 mg qd and SSI.If sugars remain <200 consistent ly can change TID fingerstic ks to qAM. Benign pro static hyperplasia 557389344 N40.0 No sxs. since here.Sole nuetamsulo sin 0.4 mg qd and finasterid e 5 mg qdMonitor urinary function. Hyperlipidemia 00067408 E78.49 Continueat orvastatin 10 mg qd and ASA 81 mg qdMonitor labs yearly. Smoker 54580377 F17.213 Continues to smoke.spen t 3-10 min on education and NRT therapy, he is willing to try nicorette gumnicoret te gum 4 mg po q 3 hours prn cravingsCo ntinue to encourage cessation. [id number] Oksana Lennon NP [address] [address] 10/21/2024 09:04:51 10/24/2024 16:33:36 Peripheral vascular disease 046497034 I73.89 Z89.511 Has recovered well from r BKA on 07/21.plan for prosthetic on 10/21 per pt.Continu eXarelto 2.5 mg BID for DVT prophylaxi s (not sure how long he needs to be on this).APAP 650 mg q 4 hrs prn.shrink er and f/u with prosthetis t as planned.F/ U with vascular as planned outpt in the spring Chronic dney disease stage 4 761451616 N18.4 With sig worsening on 09/26 compared to t was going to drink more fluids at home and he says he did.Contin ueavoid nephrotoxi c meds as able.sodiu m bicarbonat e 650 mg BID.Renal f/u as planned.la bs as above, and reordered Smoker 87862480 F17.213 Continues to smoke.jm rette gum 4 mg po q 3 hours prn cravingsCo ntinue to encourage cessation. Carbuncle of buttock 762 44716 L02.33 resolvedco mpleted cephalexin 500 mg q 8 hrs until 10/02 with probiotic BID..will order zinc cream to right upper abcess buttock qd until healedmoni tor for s/s of infection Hyperkalemia 37489571 E8 7.5 Remains WNL, but was sl. higher on 09/26 than 09/15, likely due to UMAIR.Contin uerenal diet (low k)NaHCO3 as aboveLokel ma 10 gms qdbmp and cbc weekly for one more lab Adult fail ure to thrive syndrome 219737167 R62.7 Much improved and seems to be doing better with plan for BKA soonEncour age healthy eating. Hypertensive disorder 38 041483 I10 Remains in good control.Co ntinueamlo dipine 10 mg qdmetoprol ol succinate 100 mg qdhydralaz ine 50 mg TID.Monito r BP and labs. Type 2 kishor betes mellitus 14725905 E11.21 Very good since return, all <150.HgA1C was 7.4 in 03/2024, and 6.4 on 08/22/24.C ontinue Farxiga 10 mg qd and SSI.If sugars remain <200 consistent ly can change TID fingerstic ks to qAM. Benign pro static hyperplasia 992111402 N40.0 No sxs. since here.Sole nuetamsulo sin 0.4 mg qd and finasterid e 5 mg qdMonitor urinary function. Hyperlipidemia 63382865 E78.49 Continueat orvastatin 10 mg qd and ASA 81 mg qdMonitor labs yearly. Angioedema of lip 704796 005 T78.3XXA ResolvedHa s completed prednisone taper.Astrid tor for recurrence . [id number] Oksana Lennon NP [facility] [address] [place] [address] 11/11/2024 08:19:31 11/15/2024 13:47:34 Peripheral vascular disease 407731669 I73.89 Z89.511 Has recovered well from r BKA on 07/21/24.H e plans to discharge despite prosthetic not fitting well and fu with [facility] on Thursday.He does not want to stay [...] the spring Chronic dney disease stage 4 860664260 N18.4 With CKD at baselineCo ntinueavoi d nephrotoxi c meds as able.sodiu m bicarbonat e 650 mg BID.Renal f/u as planned ouitptfu with pcp outpt and renal outpt Smoker 15859816 F17.213 Continues to smoke.jm rette gum 4 mg po q 3 hours prn cravingsCo ntinue to encourage cessation outpt Carbuncle of buttock 762 46770 L02.33 resolvedco mpleted cephalexin 500 mg q 8 hrs until 10/02 with probiotic BID..will order zinc cream to right upper abcess buttock qd until healedmoni tor for s/s of infection outpt with pcp Hyperkalemia 84088263 E8 7.5 Remains WNLContinu erenal diet (low k)NaHCO3 as aboveLokel ma 10 gms qdlabs outpt with pcp Adult fail ure to thrive syndrome 431068693 R62.7 Much improved and seems to be doing better with plan for BKA soonEncour age healthy eating outpt Hypertensive disorder 38 141728 I10 Remains in good control, bp high this am but has not got his bp meds yet todayConti nueamlodip ine 10 mg qdmetoprol ol succinate 100 mg qdhydralaz ine 50 mg TID.Monito r BP and labs outpt with pcp Type 2 kishor betes mellitus 41731200 E11.21 Very good since return, mostly <150.HgA1C was 7.4 in 03/2024, and 6.4 on 08/22/24.C ontinueFar xiga 10 mg qd and SSI.If sugars remain <200 consistent ly can change TID fingerstic ks to qAM.monito r outpt with pcp outpt Benign pro static hyperplasia 379765652 N40.0 No sxs. since here.Sole nuetamsulo sin 0.4 mg qdfinaster paula 5 mg qdMonitor urinary function outpt with pcp Hyperlipidemia 87113556 E78.49 Continueat orvastatin 10 mg qdASA 81 mg qdMonitor labs with pcp prn Angioedema of lip 379968 005 T78.3XXA Resolvedwa s never on sarita [...] Miles Member ID Guarantor Name 11/11/[address] [facility] - DOS ON OR AFTER 2023 - MEDICARE ADVANTAGE [place] (MEDICARE REPLACEMENT/ADV ANTAGE - PPO) Renato Hinson [id number] Renato Hinson Notes Date Note Type Note Provider Name and Address Organization Details Recorded Time 09/29/2024 text/html Renato is seen today for initial intake. He is a 64 yo man, just discharged from [facility] 09/27. 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 ISABEL SAUNDERS NP [address] [facility], [address], [place], [address], [facility] 09/29/2024 15:14:57 09/30/2024 text/html This is a [...] able to admit him, unclear if to [facility] care or continued rehab.He was supposed to [...] HLD, and cigarette smoker. Janice Mitchell MD [address] [place] [address], [address], [place], [address], [facility] 09/30/2024 16:14:41 10/13/2024 text/html Pt is seen [...] a few times. Oksana Lennon, TANYA [address] [facility], [address], [place], [address], [facility] [place] 10/13/2024 10:38:23 10/21/2024 text/html Pt is seen for a 90 day routine rounding visit today. His PMH includes HTN, severe PVD s/p right BKA on 07/21/24, AODM with neuropathy, CKD stage 4, hx of Hep C from tattoo, latent Tb (txed in 2020), HLD, and cigarette smoker. Renato is 64 yo man here at [facility] for rehab who d/c'd to home on [...] resolved with abx. He has received his online journalist and site of BKA well healed. His prosthetic should be in this week. He is aware he should stay a few days to make should he has proper training and guidance to use the prosthetic here with therapy and then consider dc home. On exam, he is seen lying in bed in [facility]. He is excited to get his prosthetic this week and get back to his old life. He denies any new concerns. Unclear if weight is accurate at 182 lbs this week which would be down form 198 lbs on admission. Will have another weight done. Denies any vomiting or decreased eating today. Oksana Lennon, TANYA [address] [facility], [address], [place], [address], [facility] [place] 10/21/2024 17:16:46 11/11/2024 text/html Pt is seen for a discharge summary. His PMH includes HTN, severe PVD s/p right BKA on 07/21/24, AODM with neuropathy, CKD stage 4, hx of Hep C from tattoo, latent Tb (txed in 2020), HLD, and cigarette smoker. Renato is 64 yo man here at [facility] for rehab who d/c'd to home on [...] resolved with abx. He has received his online journalist and site of BKA well healed. He [...] the prosthetic place on Thursday morning. His online journalist is applied at this visit and he is aware the online journalist is almaraz to wear to keep the swelling down. On exam, He states he is going home with , has walker and cane, and will be just fine . He denies any other complaints or concerns. Lung CTA in NAD. Oksana Lennon NP [address] [facility], [address], [place], [address], [facility] [place] 11/11/2024 08:43:30
--- OUTSIDE RECORDS SUMMARY | 2025-04-06 14:48 | XMS_ITS | Encounter Summary ---
Author Organization [facility] Address [address] [place] [address] Care Team Providers Care Service Station Operator Name Role Phone Travis Au MD Primary Care Provider [phone] Encounter Details Date Type Department Care Team (Latest Contact Info) Description 11/01/2024 Lab Requisition [facility] - Main Lab [address] [place] [address] Brandon Mckeon MD [address] [place] [address] Type 2 diabetes mellitus without [...] LAB CHEMISTRY METHOD 11/02/2024 12:[address] [facility] Potassium 5.1 3.5 - 5.5 mmol/L LAB CHEMISTRY METHOD 11/02/2024 12:37 PM [facility] Chloride 107 96 - 110 mmol/L LAB CHEMISTRY METHOD 11/02/2024 12:37 PM [facility] CO2 21 21 - 32 mmol/L LAB CHEMISTRY METHOD 11/02/2024 12:37 PM [facility] Anion Gap 6 3 - 11 LAB CHEMISTRY METHOD 11/02/2024 12:37 PM [facility] Glucose 93 70 - 100 mg/dL LAB CHEMISTRY METHOD 11/02/2024 12:37 PM [facility] BUN 54(H) 5 - 25 mg/dL LAB CHEMISTRY METHOD 11/02/2024 12:37 PM [facility] Creatinine 3.63(H) 0.70 - 1.30 mg/dL LAB CHEMISTRY METHOD 11/02/2024 12:37 PM [facility] eGFR 18(L) >=60 mL/min/1. 73m2 LAB CHEMISTRY METHOD 11/02/2024 12:37 PM [facility] Comment:Calculation based on the Chronic Kidney Disease Epidemiology Collaboration (CKD-EPI) equation refit without adjustment for race. BUN/Creatinine Ratio 14.9 LAB CHEMISTRY METHOD 11/02/2024 12:37 PM [facility] Calcium 8.5 8.5 - 10.5 mg/dL LAB CHEMISTRY METHOD 11/02/2024 12:37 PM [facility] Blood Venous blood specimen / Unknown Venipuncture / Unknown 11/02/2024 7:04 AM EST 11/02/2024 11:13 AM EST us Brandon Mckeon MD LAB BLOOD ORDERABLES Final Resu lt [facility] [address] [place] [address], [place] [phone] * (ABNORMAL) Complete blood count (11/02/2024 7:04 AM EST) [facility] WBC 8.5 4.8 - 10.8 K/mcL LAB HEMETOLOGY METHOD 11/02/2024 12:23 PM [facility] RBC 3.10(L) 4.50 - 5.50 M/mcL LAB HEMETOLOGY METHOD 11/02/2024 12:23 PM [facility] Hemoglobin 8.8(L) 13.5 - 17.5 g/dL LAB HEMETOLOGY METHOD 11/02/2024 12:23 PM [facility] Hematocrit 28.2(L) 42.0 - 54.0 % LAB HEMETOLOGY METHOD 11/02/2024 12:23 PM [facility] MCV 91.9 79.0 - 98.0 FL LAB HEMETOLOGY METHOD 11/02/2024 12:23 PM [facility] MCH 28.7 27.0 - 32.0 pcg LAB HEMETOLOGY METHOD 11/02/2024 12:23 PM [facility] MCHC 31.2(L) 32.0 - 37.0 g/dL LAB HEMETOLOGY METHOD 11/02/2024 12:23 PM [facility] RDW 13.6 11.0 - 15.0 % LAB HEMETOLOGY METHOD 11/02/2024 12:23 PM [facility] Platelets 382 130 - 400 K/mcL LAB HEMETOLOGY METHOD 11/02/2024 12:23 PM [facility] MPV 10.3 7.0 - 11.0 FL LAB HEMETOLOGY METHOD 11/02/2024 12:23 PM [facility] NRBC 0.0 <1.0 % LAB HEMETOLOGY METHOD 11/02/2024 12:23 PM [facility] NRBC Absolute 0.00 <0.10 K/mcL LAB HEMETOLOGY METHOD 11/02/2024 12:[address] [facility] Blood Venous blood specimen / Unknown Venipuncture / Unknown 11/02/2024 7:04 AM EST 11/02/2024 11:13 AM EST us Brandon Mckeon MD LAB BLOOD ORDERABLES Final Resu lt [facility] [address] [place] [address], documented in this encounter Visit Diagnoses Diagnosis Type 2 diabetes mellitus without complications (CMS/HCC V24, CMS/HCC V28) documented in this encounter Care Teams Service Station Operator Relationship Specialty Start Date End Date Travis Au MD [address] [place] [address], [phone] PCP - General Family Medicine 08/22/24 documented as of this encounter
[2025-04-06 14:59] LABS: Hematocrit 26.6 % (42.0-52.0); Hemoglobin 8.7 g/dl (14.0-18.0); Imm Gran Abs Auto 0.05 X10*3/uL (0.00-0.03); Imm Gran Pct Auto 0.6 % (0.0-0.4); Lymphocytes Absolute Auto 1.4 X10*3/uL (1.2-4.9); Mean Corpuscular HGB Conc 32.7 g/dl (31.0-36.0); Mean Corpuscular Hemoglobin 28.6 pg (27.0-33.0); Mean Corpuscular Volume 87.5 fL (80.0-98.0); NRBC Abs Auto 0.000 X10*3/uL (0.0-0.012); NRBC Pct Auto 0.0 /100WBC (0.0-0.2); Platelet Count 228 X10*3/uL (160-400); Red Blood Count 3.04 X10*6/uL (4.60-5.80); White Blood Count 8.5 X10*3/uL (4.8-10.8)
[2025-04-06 16:27] LABS: Alanine Aminotransferase 20 U/L (0-40); Albumin Level 3.1 g/dL (3.5-5.0); Alkaline Phosphatase 66 U/L (39-117); Anion Gap 15 (12-20); Aspartate Amino Transferase 20 U/L (5-37); Blood Urea Nitrogen 58 mg/dL (9-16); Calcium 8.1 mg/dL (8.4-10.2); Carbon Dioxide 18 mmol/L (22-29); Chloride 106 mmol/L (96-108); Estimated Glomerular Filt Rate 8; Potassium 4.2 mmol/L (3.3-5.1); Sodium 135 mmol/L (135-145); Total Protein 6.7 g/dL (6.5-8.0)
== END 2025-04-06 14:46 | disposition home or self-care (01) ==
LOC: HO.HVNA 14:45
PROVIDERS: Visit Provider Internal Medicine
DX: M86.9 Osteomyelitis, unspecified (principal)
CPT/HCPCS: 36415; 80053; 82550; 85025; 86140

== ENCOUNTER 2025-04-10 13:17 | Outpatient (REF) | payer OTHER, SELFPAY ==
--- NOTE | ~2025-04-10 | IR_ITS ---
EXAMINATION: Removal of Marcelo catheter. CLINICAL INDICATION: Marcelo catheter not needed anymore. TECHNIQUE: Following explaining procedure for removal of Marcelo catheter, patient was placed on a wheelchair and the right upper chest was exposed. The area was cleaned and draped in usual sterile manner. 1% lidocaine was injected puncture site. The incision from the right anterior chest wall was removed. The area around the catheter insertion was dilated with blunt dissector and the catheter was gently pulled out. Post removal complete hemostasis was achieved at puncture site. Patient tolerated procedure extremely well. Sterile dressing applied post procedure. FINDINGS/ IR/IR cvc remov tunnel wo prt/relays draftsperson IMPRESSION: Successful removal of Marcelo catheter under local anesthesia. Electronically signed by: Delgado Nina MD 04/10/2025 03:42 PM EDT
--- OUTSIDE RECORDS SUMMARY | 2025-04-10 13:43 | XMS_ITS | Clinical Summary ---
Author Organization [facility] Address [address] [facility] [address] [place] [address] Phone Care Team Providers Care Slitter Helper Name Role Phone Michelle Long MD Primary Care Provider [phone] Allergies Active Allergy Reactions Criticality Noted Date [...] Telephone [facility] [address] [place] [address] Sydney Rosales from Last 3 Months Family [...] to 49 Years) Discontinued 07/01/2010 Insurance [address] [place] [phone] [facility] ([id number]) MAHESH MACIAS [phone] [facility] Dual SNP ([id number]) Care Teams Slitter Helper Relationship Specialty Start Date End Date Michelle Long MD [address] [place], [place] PCP - General Internal Medicine 10/06/23
--- OUTSIDE RECORDS SUMMARY | 2025-04-10 13:43 | XMS_ITS | Data Portability ---
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 Not available [...] Organization Details Recorded Time Peripheral vascular disease 200895083 Active 2023 Oksana Lennon NP [address], [place], [address], [facility] 4 17:52:49 Adult failure to thrive syndrome 309813212 Active 2023 Oksana Lennon NP [address], [address], [place], [address], [facility] 4 17:53:00 Type 2 diabetes mellitus 81670551 Active 2023 Oksana Lennon NP [address] , [address], [place], [address], [facility] 4 17:53:10 Hypertensive disorder 18403971 Active 2023 Oksana Lennon NP [address], [address], [place], [address], [facility] 4 17:53:15 Benign prostatic hyperplasia 619664410 Active 2023 Oksana Lennon NP [address], [address], [place], [address], [facility] 4 17:53:22 Hyperkalemia 27987698 Active 2023 Oksana Lennon NP [address] [facility], [address], [place], [address], [facility] 4 17:53:30 Chronic kidney disease stage 4 193239926 Active 2023 Oksana Lennon NP [address] [facility], [address], [place], [address], [facility] 4 17:54:21 Hyperlipidemia 39426808 Active 2023 Oksana Lennon NP [address] [facility], [address], [place], [address], [facility] 4 18:13:13 Smoker 90823422 Active 2023 Oksana Lennon NP [address] [facility], [address], [place], [address], [facility] 4 18:15:45 Problem Notes None recorded. Medical Equipment None Reported. Allergies Allergen ID Allergen Name Allergen Category Reaction Reaction Severity Criticality Documentation Date Start Date Code Code System Note Provider Name and Address Organization Details Recorded Time 55494 morphine medicatio n itching Not available low 08/22/2024 7052 RxNorm Janice Mitchell MD [address], [address], [place], [address], [facility] 4 20:23:08 62606 bupropion Not available confusion hallucina tions Not available Not available Not available 08/22/2024 94304 RxNorm tremo rs, aggre ssive , loss of appet ite Janice Mitchell MD [address] [facility], [address], [place], [address] , [facility] 4 20:23:00 Vitals Date Recorded Body height Body weight Body mass index (BMI) Heart rate Respiratory rate Body temperature Oxygen saturation Oxygen saturation in Arterial blood by Pulse oximetry Systolic And Diastolic Provider Name and Address Organization Details Last Updated DateTime 5 179.83 cm 68520.8 1 g 25.5 kg/m2 62 /min 16 /min 98.2 [degF] 96 % 96 % 146/74 mm[Hg] Oksana Lennon NP [address] [facility] [address], [place], [address], [facility] 5 10:26:07 Date Recorded Body height Body weight Body mass index (BMI) Heart rate Respiratory rate Body temperature Oxygen saturation Oxygen saturation in Arterial blood by Pulse oximetry Systolic And Diastolic Provider Name and Address Organization Details Last Updated DateTime 5 179.83 cm 27314.8 1 g 25.5 kg/m2 68 /min 18 /min 97.2 [degF] 96 % 96 % 158/65 mm[Hg] Oksana Lennon NP [address] [place] [address], [facility] [address], [place], [address], [facility] 5 16:59:12 Date Recorded Body height Body mass index (BMI) Body weight Heart rate Respiratory rate Body temperature Oxygen saturation Oxygen saturation in Arterial blood by Pulse oximetry Systolic And Diastolic Provider Name and Address Organization Details Last Updated DateTime 5 179.83 cm 24.1 kg/m2 72296.8 9 g 71 /min 19 /min 97.9 [degF] 97 % 97 % 162/81 mm[Hg] Oksana Lennon NP [address] [place] [address], [facility] [address], [place], [address], [facility] 5 08:22:41 Date Recorded Body height Heart rate Respiratory rate Body temperature Oxygen saturation Oxygen saturation in Arterial blood by Pulse oximetry Systolic And Diastolic Provider Name and Address Organization Details Last Updated DateTime 4 179.83 cm 70 /min 18 /min 98 [degF] 98 % 98 % 132/75 mm[Hg] ISABEL SAUNDERS NP [address] [facility], [address], [place], [address], [facility] 4 15:05:47 Date Recorded Body height Body mass index (BMI) Body weight Heart rate Respiratory rate Body temperature Oxygen saturation Oxygen saturation in Arterial blood by Pulse oximetry Systolic And Diastolic Provider Name and Address Organization Details Last Updated DateTime 4 179.83 cm 28.2 kg/m2 15898.0 7 g 77 /min 18 /min 98 [degF] 98 % 98 % 132/75 mm[Hg] Janice Mitchell MD [address] [facility], [facility] [address], [place], [address], [facility] 4 15:06:09 Social History Question Answer Notes LastModified by Organizat ion Details LastModified Time Tobacco Smoking Status Current Every Day Smoker Oksana Lennon NP [address] [facility], [address], [place], [address], [facility] 08/22/2024 17:36:42 What Is Your Code Status? Full Code Information not available 08/22/2024 Where Do You Live? 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 Yes Has HCP [email or web address] Information not available 08/23/2024 What Was The Date Of Your Most Recent Tobacco Screening? 08/22/2024 Information not available 08/22/2024 Do You Have An Out Of Hospital DNR? Yes [email or web address] Information not available 08/23/2024 What Is Your [...] Recorded Time Tdap 09/04/2023 completed Bri [facility] 10/04/2024 14:59:23 influenza, unspecified formulation 06/27/2022 completed Brimoses Mccall [facility] 10/04/2024 14:59:38 influenza, unspecified formulation 06/26/2023 completed Bri [facility] 10/04/2024 14:59:46 SARS-COV-2 (COVID-19) vaccine, UNSPECIFIED 10/16/2020 completed Bri [facility] 10/04/2024 15:00:00 SARS-COV-2 (COVID-19) vaccine, UNSPECIFIED 11/06/2020 completed Bri [facility] 10/04/2024 15:00:07 SARS-COV-2 (COVID-19) vaccine, UNSPECIFIED 06/02/2021 completed Bri [facility] 10/04/2024 15:00:15 SARS-COV-2 (COVID-19) vaccine, UNSPECIFIED 06/27/2022 completed Bri Cal [facility] 10/04/2024 15:00:22 SARS-COV-2 (COVID-19) vaccine, UNSPECIFIED 06/26/2023 completed Bri [facility] 10/04/2024 15:00:37 Past Encounters Encounter ID Performer Location Encounter Start Date Encounter Closed Date Diagnosis/Indication Diagnosis SNOMED-CT Code Diagnosis ICD10 Code Diagnosis Note [id number] Oksana Lennon NP [facility] [address] 08/22/2024 14:49:44 08/23/2024 10:31:07 Adult failure to thrive syndrome 010592392 R62.7 supportive carept /ot eval and treat for rom, mobility, strengthen ing, gait, balancemon itor for need to adjust careplan Hypertensive disorder 38 694608 I10 amlodipine 10 mg po qdmetoprol ol xl 100 mg po qdhydralaz ine 50 tidmonitor bp and need to adjust Hyperkalemia 28239475 E8 7.5 renal diet, low potassiuml okelma 10 g qdsodium bicarb 650 mg po bidcbc and bmp weekly x 3 weeks Chronic ki dney disease stage 4 184310373 N18.4 renal diet, low potassiumw as educated in hospital about diet, cont here with dieticainb aseline 2.5-3lokel ma 10 g qdsodium bicarb 650 mg po bidfu with nephrology Dr Perez ? 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 and [address] and severe vascuopath yxarelto 2.5 mg po bidoxycodo ne 5 mg po q 8 hours prn paintyl prnPT/OT eval and treatfu plan:[facility] 12/3 3pm and 330 pm and 09/08 1:30 pmwill leave open to air for nowmonitor for s/s of infection Type 2 kishor betes mellitus 75067824 E11.21 farxiga 10 mg po qdlispro tid ac SSImonitor BS and adjust as needed Benign pro static hyperplasia 145040783 N40.0 tamsulosin 0.4 mg po dailyfinas teride 5 mg po qdmonitor Hyperlipidemia 38142852 E78.5 atorvastat in 10 mg po qdaspirin 81 mg po qdmonitor Smoker 15325388 F17.200 pt is chronic smokereduc ated 3-10 minutes and refuses NRT or to quitplan is to continue smokingmon itor for readiness to quit with chronic disease [id number] Janice Mitchell MD [facility] [address] 08/23/2024 19:50:37 08/29/2024 13:25:12 Adult failure to thrive syndrome 771734634 R62.7 PT/OT as above.Astrid tor mood and po intake.Psy ch consult prn Hypertensive disorder 38 437045 I10 Some borderline SBPs since here, but diastolics all low normal or low.No change in meds for nowContinu e amlodipine 10 mg qd, metoprolol succinate 100 mg qd, and hydralazin e 50 mg TID.Monito r BP and labs Hyperkalemia 44951016 E8 7.5 In good control on current regimen.Co ntinue renal diet, Lokelma 10 g qd and sodium bicarb 650 mg BID.Monito r labs. Chronic ki dney disease stage 4 411925346 N18.4 At baseline.C ontinue to avoid nephrotoxi c meds as able.Monit or labs.Renal f/u as planned. Peripheral vascular disease 346612967 I73.89 Z89.511 Recovering well from BKA on [...] this week. Type 2 kishor betes mellitus 09965430 E11.21 Sugars in good control since here.Last HgA1C was 7.4 in 03/2024, and 6.4 on 08/22/24.C ontinue Farxiga 10 mg qd and SSI.Monito r fingerstic ks TID and HgA1C q 3 months. Benign pro static hyperplasia 625057821 N40.0 No current sxs.Contin ue tamsulosin 0.4 mg qd and finasterid e 5 mg qdMonitor urinary function. Hyperlipidemia 01013927 E78.49 Continue atorvastat in 10 mg qd and ASA 81 mg qdMonitor labs as outpt. Smoker 03612727 F17.213 Earlier told someone he was jonesing for a cigarette , but tells me he is considerin g quitting.N ot interested in NRT, says he has had bad rxns.Sole nue to encourage cessation. [id number] Oksana Lennon NP [address] [address] 09/08/2024 12:24:42 09/12/2024 13:04:51 Peripheral vascular disease 426129620 I73.89 Z89.511 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, but having trouble with amp emotionall y and trouble caring for himself.co ntPT/OT for strengthen ing, balance, gait training, safety and function.a [facility] ontinue fall precaution s.Monitor for safety.Con tinueXarel to 2.5 mg BID for DVT prophylaxi s.oxycodon e 5 mg q 8 hrs prnAPAP 650 mg q 4 hrs prn.F/U with vascular as planned.Mo nitor incision, healed in today09/08 rehan ordered and faxed to [facility] with appt 09/15fu in spring for further testing of left leg Adult fail ure to thrive syndrome 977184245 R62.7 PT/OT as above.Astrid tor mood and po intake.Psy ch consult prn Hypertensive disorder 38 619597 I10 bp stableCont inueamlodi pine 10 mg qdmetoprol ol succinate 100 mg qd,hydrala zine 50 mg TID.Monito r BP and labs Hyperkalemia 56495743 E8 7.5 In good control on current regimen.Co ntinue renal diet (low k)Lokelma 10 g qdsodium bicarb 650 mg BID.Monito r labs. not done this week, will reorder Chronic ki dney disease stage 4 459415702 N18.4 At baseline.C ontinue to avoid nephrotoxi c meds as able.monit or bmp for increased kcont sodium bicarbonat e bidMonitor labs.Renal f/u as planned. Type 2 kishor betes mellitus 11615398 E11.21 BS stableLast HgA1C was 7.4 in 03/2024, and 6.4 on 08/22/24.C ontinueFar xiga 10 mg qd and SSI.Monito r fingerstic ks TID and HgA1C q 3 months. Benign pro static hyperplasia 912452931 N40.0 No current sxs.Contin uetamsulos in 0.4 mg qd and finasterid e 5 mg qdMonitor urinary function. Hyperlipidemia 24321043 E78.49 Continueat orvastatin 10 mg qd and ASA 81 mg qdMonitor labs as outpt. Smoker 89518284 F17.213 continues to smokeNot interested in NRT, says he has had bad rxns.educsilvestre tate on smoking cessationC ontinue to encourage cessation. [id number] Oksana Lennon NP [facility] [address] 09/14/2024 14:33:03 09/16/2024 14:16:40 Peripheral vascular disease 883466029 I73.89 Z89.511 Recovering well from BKA on [...] prn Adult fail ure to thrive syndrome 489358848 R62.7 Monitor mood and intakePsyc h consult prn Hypertensive disorder 38 410071 I10 bp stable hereContin ueamlodipi ne 10 mg qdmetoprol ol succinate 100 mg qd,hydrala zine 50 mg TID.Monito r BP and labs outpt with pcplabs ordered but not done, will attempt tomorrow again Hyperkalemia 23644395 E8 7.5 In good control on current regimen.Co ntinue renal diet (low k)Lokelma 10 g qdsodium bicarb 650 mg BID.Monito r labs. not done this week, will reorder for ed am again before dc(unclear why labs aren't done, question difficult stick? )fu with pcp Chronic ki dney disease stage 4 833080544 N18.4 At baseline.C ontinue to avoid nephrotoxi c meds as able.conts odium bicarbonat e bidMonitor labs outpt with pcpRenal f/u as planned. Type 2 kishor bettorres mellitus 85132983 E11.21 BS stableLast HgA1C was 7.4 in 03/2024, and 6.4 on 08/22/24.C ontinueFar xiga 10 mg qd and SSI.Monito r fingerstic ks TID and HgA1C q 3 months Benign pro static hyperplasia 346793415 N40.0 No current sxs.Contin uetamsulos in 0.4 mg qd and finasterid e 5 mg qdMonitor urinary function Hyperlipidemia 14196252 E78.49 Continueat orvastatin 10 mg qd and ASA 81 mg qdMonitor labs with pcp prn Smoker 26062921 F17.213 continues to smokeNot interested in NRT, says he has had bad rxns.educsilvestre tate on smoking cessationC ontinue to encourage cessation [id number] Oksana Lennon NP [address] [address] 09/21/2024 13:09:13 09/22/2024 12:24:03 Peripheral vascular disease 686068566 I73.89 Z89.511 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, but having trouble with amp emotionall y and trouble caring for himself.ov erall doing much better and healing in, incision closedCont inue fall precaution s.Monitor for safety.Con tinueXarel to 2.5 mg BID for DVT prophylaxi s.APAP 650 mg q 4 hrs prn.has supervisor shuttle preparation and educated on need to use it so he can get prothetic soon.will fu with bell prothetics fu in spring for further testing of left leg with vascular outpt and prn Adult fail ure to thrive syndrome 058421869 R62.7 Monitor mood and intakePsyc h consult prn Hypertensive disorder 38 010125 I10 bp stable 118/64Cont inueamlodi pine 10 mg qdmetoprol ol succinate 100 mg qd,hydrala zine 50 mg TID.Monito r BP and labs outpt with pcp Hyperkalemia 17510191 E8 7.5 In good control on current regimen.Co ntinue renal diet (low k)Lokelma 10 g qdsodium bicarb 650 mg BID.Monito r labs.fu with renal Chronic ki dney disease stage 4 685039134 N18.4 At baseline.C ontinue to avoid nephrotoxi c meds as able.conts odium bicarbonat e bidRenal f/u as planned. Type 2 kishor betes mellitus 39005005 E11.21 BS stableHgA1 C was 7.4 in 03/2024, and 6.4 on 08/22/24 improvedCo ntinueFarx iga 10 mg qd and SSI.Monito r fingerstic ks TID and HgA1C q 3 months Benign pro static hyperplasia 745877112 N40.0 No current sxs.Contin uetamsulos in 0.4 mg qd and finasterid e 5 mg qdMonitor urinary function [id number] Oksana Lennon, TANYA [facility] [address] [address] 09/22/2024 12:31:57 09/26/2024 12:28:42 Peripheral vascular disease 188706082 I73.89 Z89.511 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, but having trouble with amp emotionall y and trouble caring for himself.ov erall doing much better and healing in, incision closedCont inue fall precaution s.Monitor for safety.Con tinueXarel to 2.5 mg BID for DVT prophylaxi s.APAP 650 mg q 4 hrs prn.has supervisor shuttle preparation and educated on need to use it so he can get prothetic soon.will fu with bell prosthetic sfu in spring for further testing of left leg with vascular outpt and prn Adult fail ure to thrive syndrome 291542487 R62.7 Monitor mood and intakePsyc h consult prn Hypertensive disorder 38 899128 I10 stableCont inueamlodi pine 10 mg qdmetoprol ol succinate 100 mg qd,hydrala zine 50 mg TID.Monito r BP and labs outpt with pcp Hyperkalemia 22803178 E8 7.5 In good control on current regimen.Co ntinue renal diet (low k)Lokelma 10 g qdsodium bicarb 650 mg BID.Monito r labs.fu with renalfu labs cbc and bmp 09/26 Chronic ki dney disease stage 4 551202652 N18.4 At baseline.C ontinue to avoid nephrotoxi c meds as able.conts odium bicarbonat e bidRenal f/u as planned. Type 2 kishor betes mellitus 34659350 E11.21 BS stableHgA1 C was 7.4 in 03/2024, and 6.4 on 08/22/24 improvedCo ntinueFarx iga 10 mg qd and SSI.Monito r fingerstic ks TID and HgA1C q 3 months Benign pro static hyperplasia 080048287 N40.0 No current sxs.Contin uetamsulos in 0.4 mg qd and finasterid e 5 mg qdMonitor urinary function Furuncle of buttock 1243 0003 L02.32 large abcess on posterior right upper buttock likely [id number] /19start cephalexin 500 mg po q 8 hours (will decrease from q6 hr dosing due to poor renal fx)x 7 days with probioticn s wash, pat dry, and apply foam dressing to areamonito r for s/s of infectionc bc and bmp on 09/26cons ider wound consult Angioedema of lip 394025 005 T78.3XXA pt with angioedema to only [...] distress, diff swallowing , or increased swelling [id number] [facility] [address] 09/23/2024 08:41:31 09/26/2024 14:26:31 Angioedema of lip 599362920 T78.3XXA pt with angioedema to only the [...] medication s if reoccurs Peripheral vascular disease 940913978 I73.89 Z89.511 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, but having trouble with amp emotionall y and trouble caring for himself.ov erall doing much better and healing in, incision closedCont inue fall precaution s.Monitor for safety.Con tinueXarel to 2.5 mg BID for DVT prophylaxi s.APAP 650 mg q 4 hrs prn.has supervisor shuttle preparation and educated on need to use it so he can get prothetic soon.will fu with bell prosthetic sfu in spring for further testing of left leg with vascular outpt and prn Adult fail ure to thrive syndrome 136445633 R62.7 Monitor mood and intakePsyc h consult prn Hypertensive disorder 38 503644 I10 stableCont inueamlodi pine 10 mg qdmetoprol ol succinate 100 mg qd,hydrala zine 50 mg TID.Monito r BP and labs outpt with pcp Hyperkalemia 82976228 E8 7.5 In good control on current regimen.Co ntinue renal diet (low k)Lokelma 10 g qdsodium bicarb 650 mg BID.Monito r labs.fu with renalfu labs cbc and bmp 09/26 Chronic ki dney disease stage 4 021875661 N18.4 At baseline.C ontinue to avoid nephrotoxi c meds as able.conts odium bicarbonat e bidRenal f/u as planned. Type 2 kishor betes mellitus 41636467 E11.21 BS stableHgA1 C was 7.4 in 03/2024, and 6.4 on 08/22/24 improvedCo ntinueFarx iga 10 mg qd and SSI.Monito r fingerstic ks TID and HgA1C q 3 months Benign pro static hyperplasia 354736572 N40.0 No current sxs.Contin uetamsulos in 0.4 mg qd and finasterid e 5 mg qdMonitor urinary function Carbuncle of buttock 762 31170 L02.33 large golf ball size abcess on [...] to assess renal func and for infection [id number] Janice Mitchell MD [address] [address] 09/26/2024 19:01:26 09/27/2024 08:53:46 Carbuncle of buttock 51235138 L02.33 Improving. Continue cephalexin 500 mg q 8 hrs until 09/29 with probiotic BID.Contin ue wound care as ordered.To be seen by wound care in AM before d/c.F/U with PCP as outpt. Angioedema of lip 263039 005 T78.3XXA ResolvedFi brandon prednisone taper.Astrid tor for recurrence . Peripheral vascular disease 996727951 I73.89 Z89.511 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.Cont inue Xarelto 2.5 mg BID for DVT prophylaxi s (not sure how long he needs to be on this).Cont inue APAP 650 mg q 4 hrs prn.No longer needing Oxy.Contin ue supervisor shuttle preparation and f/u with prosthetis t as planned.F/ U with vascular as planned. Adult fail ure to thrive syndrome 500333375 R62.7 Much improved.F /U with PCP as outpt. Hypertensive disorder 38 453926 I10 In good control.Co ntinue amlodipine 10 mg qd, metoprolol succinate 100 mg qd, and hydralazin e 50 mg TID.F/U with PCP as outpt. Hyperkalemia 65406773 E8 7.5 Remains WNL, but sl. higher than 09/15, likely due to UMAIR.Contin ue renal diet (low k)Continue NaHCO3 as above and Lokelma 10 gms qdWill order repeat labs for 09/29 with [facility]. Chronic ki dney disease stage 4 551583913 N18.4 With sig worsening today compared to 09/15Enc raged pt to drink more fluids.Con tinue to avoid nephrotoxi c meds as able.Sole nue sodium bicarbonat e 650 mg BID.Renal f/u as planned. Type 2 kishor betes mellitus 62872716 E11.21 BS mostly in ood control since here with occ high readingHgA 1C was 7.4 in 03/2024, and 6.4 on 08/22/24 improvedCo ntinue Farxiga 10 mg qd and SSI.F/U with PCP as outpt. Benign pro static hyperplasia 857379008 N40.0 No sxs. since here.Sole nue tamsulosin 0.4 mg qd and finasterid e 5 mg qdF/U with PCP as outpt. Hyperlipidemia 57026812 E78.49 Continue atorvastat in 10 mg qd and ASA 81 mg qdMonitor labs as outpt. Smoker 91822544 F17.213 Has been smoking since here.Refus ed NRT.Contin ue to encourage cessation. [id number] ISABEL SAUNDERS, TANYA [address] [address] 09/29/2024 15:04:27 09/30/2024 12:02:02 Chronic kidney disease stage 4 188873352 N18.4 With sig worsening 09/26 compared to 09/15Enc rage fluids.Con tinue to avoid nephrotoxi c meds as able.Follo w up with Nephrology as sched.Cont inue sodium bicarbonat e 650 mg BID.CMP in am Hyperkalemia 56432595 E8 7.5 Remains WNL, but sl. higher than 09/15, likely due to UMAIR.Contin ue renal diet (low k)Continue NaHCO3 as above and Lokelma 10 gms qdWill order repeat labs for 09/30 Peripheral vascular disease 123575931 I73.89 Z89.511 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.Cont inue Xarelto 2.5 mg BID for DVT prophylaxi s (not sure how long he needs to be on this).Cont inue APAP 650 mg q 4 hrs prn.No longer needing Oxy.Contin ue supervisor shuttle preparation and f/u with prosthetis t as planned.F/ U with vascular as planned. Carbuncle of buttock 762 78782 L02.33 Improving. Continue cephalexin 500 mg q 8 hrs until complete, as well as probiotic BID.Contin ue wound care as ordered.To be seen by wound care in AM before d/c.F/U with PCP as outpt. Angioedema of lip 811765 005 T78.3XXA ResolvedFi brandon prednisone taper.Astrid tor for recurrence . Adult fail ure to thrive syndrome 199426775 R62.7 Much improved.F /U with PCP as outpt. Hypertensive disorder 38 195935 I10 In good control.Co ntinue amlodipine 10 mg qd, metoprolol succinate 100 mg qd, and hydralazin e 50 mg TID.F/U with PCP as outpt. Type 2 kishor betes mellitus 20121682 E11.21 BS mostly in good control since here with occ. high readingHgA 1C was 7.4 in 03/2024, and 6.4 on 08/22/24 improvedCo ntinue Farxiga 10 mgBS bid once a week and prnF/U with PCP as outpt. Benign pro static hyperplasia 261392901 N40.0 No sxs. since here.Sole nue tamsulosin 0.4 mg qd and finasterid e 5 mg qdF/U with PCP as outpt. Hyperlipidemia 34022410 E78.49 Continue atorvastat in 10 mg qd and ASA 81 mg qdMonitor labs as outpt. Smoker 00552024 F17.213 Has been smoking since here.Refus ed NRT.Contin ue to encourage cessation. [id number] Janice Mitchell MD [facility] [address] 09/30/2024 14:58:21 10/03/2024 12:45:37 Chronic kidney disease stage 4 074180201 N18.4 With sig worsening on 09/26 compared to t was going to drink more fluids at home and he says he did.Contin ue to avoid nephrotoxi c meds as able.Sole nue sodium bicarbonat e 650 mg BID.Renal f/u as planned.La bs were to be rechecked today, but pt refused.Pr omises he will allow lab draw on Wednesday 10/03. Hyperkalemia 47568095 E8 7.5 Remains WNL, but was sl. higher on 09/26 than 09/15, likely due to UMAIR.Contin ue renal diet (low k)Continue NaHCO3 as above and Lokelma 10 gms qdLabs on 10/03 as above. Peripheral vascular disease 812246820 I73.89 Z89.511 Has recovered well from BKA on 07/21.Cont inue Xarelto 2.5 mg BID for DVT prophylaxi s (not sure how long he needs to be on this).Cont inue APAP 650 mg q 4 hrs prn.Contin ue supervisor shuttle preparation and f/u with prosthetis t as planned.F/ U with vascular as planned. Carbuncle of buttock [id number] 89265 L02.33 Improving per pt.Wound care note from 09/27 not scanned in to [facility] yet.Contin ue cephalexin 500 mg q 8 hrs until 10/02 with probiotic BID.Contin ue wound care as ordered.F/ U with wound care weekly until healed. Angioedema of lip 238480 005 T78.3XXA ResolvedHa s completed prednisone taper.Astrid tor for recurrence . Adult fail ure to thrive syndrome [id number] R62.7 Much improved.C ontinue liquid protein 30 mg qd to help with wound healing.En courage healthy eating. Hypertensive disorder 38 209337 I10 Remains in good control.Co ntinue amlodipine 10 mg qd, metoprolol succinate 100 mg qd, and hydralazin e 50 mg TID.Monito r BP and labs. Type 2 kishor betes mellitus 88579182 E11.21 Very good since return, all <150.HgA1C was 7.4 in 03/2024, and 6.4 on 08/22/24.C ontinue Farxiga 10 mg qd and SSI.If sugars remain <200 consistent ly can change TID fingerstic ks to qAM. Benign pro static hyperplasia 813879119 N40.0 No sxs. since here.Sole nue tamsulosin 0.4 mg qd and finasterid e 5 mg qdMonitor urinary function. Hyperlipidemia 33753012 E78.49 Continue atorvastat in 10 mg qd and ASA 81 mg qdMonitor labs yearly. Smoker 77848624 F17.213 Continues to smoke.Cont inues to refuse NRT.Contin ue to encourage cessation. [id number] Oksana Lennon NP [place] [address] [place] [address] 10/13/2024 10:10:33 10/14/2024 10:47:39 Chronic kidney disease stage 4 133599507 N18.4 With sig worsening on 09/26 compared to t was going to drink more fluids at home and he says he did.Contin ueavoid nephrotoxi c meds as able.sodiu m bicarbonat e 650 mg BID.Renal f/u as planned.La bs ordered for bmp and cbc on 10/19 on thu x 2labs as above Hyperkalemia 06142478 E8 7.5 Remains WNL, but was sl. higher on 09/26 than 09/15, likely due to UMAIR.Contin uerenal diet (low k)NaHCO3 as aboveLokel ma 10 gms qdLabs on 10/03 as above.bmp and cbc 10/19 ordered Peripheral vascular disease [id number] I73.89 Z89.511 Has recovered well from r BKA on 07/21.plan for prothetic on 10/21 per pt.Continu eXarelto 2.5 mg BID for DVT prophylaxi s (not sure how long he needs to be on this).Cont inue APAP 650 mg q 4 hrs prn.Contin ue supervisor shuttle preparation and f/u with prosthetis t as planned.F/ U with vascular as planned. Carbuncle of buttock 762 38008 L02.33 Improving per pt.mostly healedCont inuecomple lea cephalexin 500 mg q 8 hrs until 10/02 with probiotic BID.Contin ue wound care as ordered.F/ U with wound care weekly until healed.ratna l order zinc cream to right upper abcess buttock qd until healedmoni tor for s/s of infection Adult fail ure to thrive syndrome 274600602 R62.7 Much improved.E ncourage healthy eating. Hypertensive disorder 38 129444 I10 Remains in good control.Co ntinueamlo dipine 10 mg qd, metoprolol succinate 100 mg qd, and hydralazin e 50 mg TID.Monito r BP and labs. Type 2 kishor bettorres mellitus 89111259 E11.21 Very good since return, all <150.HgA1C was 7.4 in 03/2024, and 6.4 on 08/22/24.C ontinue Farxiga 10 mg qd and SSI.If sugars remain <200 consistent ly can change TID fingerstic ks to qAM. Benign pro static hyperplasia 779822416 N40.0 No sxs. since here.Sole nuetamsulo sin 0.4 mg qd and finasterid e 5 mg qdMonitor urinary function. Hyperlipidemia 57414750 E78.49 Continueat orvastatin 10 mg qd and ASA 81 mg qdMonitor labs yearly. Smoker 47572275 F17.213 Continues to smoke.spen t 3-10 min on education and NRT therapy, he is willing to try nicorette gumnicoret te gum 4 mg po q 3 hours prn cravingsCo ntinue to encourage cessation. [id number] Oksana Lennon NP [address] [address] 10/21/2024 09:04:51 10/24/2024 16:33:36 Peripheral vascular disease 443163562 I73.89 Z89.511 Has recovered well from r BKA on 07/21.plan for prosthetic on 10/21 per pt.Continu eXarelto 2.5 mg BID for DVT prophylaxi s (not sure how long he needs to be on this).APAP 650 mg q 4 hrs prn.shrink er and f/u with prosthetis t as planned.F/ U with vascular as planned outpt in the spring Chronic dney disease stage 4 807805443 N18.4 With sig worsening on 09/26 compared to t was going to drink more fluids at home and he says he did.Contin ueavoid nephrotoxi c meds as able.sodiu m bicarbonat e 650 mg BID.Renal f/u as planned.la bs as above, and reordered Smoker 53068246 F17.213 Continues to smoke.jm rette gum 4 mg po q 3 hours prn cravingsCo ntinue to encourage cessation. Carbuncle of buttock 762 92743 L02.33 resolvedco mpleted cephalexin 500 mg q 8 hrs until 10/02 with probiotic BID..will order zinc cream to right upper abcess buttock qd until healedmoni tor for s/s of infection Hyperkalemia 56460583 E8 7.5 Remains WNL, but was sl. higher on 09/26 than 09/15, likely due to UMAIR.Contin uerenal diet (low k)NaHCO3 as aboveLokel ma 10 gms qdbmp and cbc weekly for one more lab Adult fail ure to thrive syndrome 913422474 R62.7 Much improved and seems to be doing better with plan for BKA soonEncour age healthy eating. Hypertensive disorder 38 486067 I10 Remains in good control.Co ntinueamlo dipine 10 mg qdmetoprol ol succinate 100 mg qdhydralaz ine 50 mg TID.Monito r BP and labs. Type 2 kishor betes mellitus 02639267 E11.21 Very good since return, all <150.HgA1C was 7.4 in 03/2024, and 6.4 on 08/22/24.C ontinue Farxiga 10 mg qd and SSI.If sugars remain <200 consistent ly can change TID fingerstic ks to qAM. Benign pro static hyperplasia 604252087 N40.0 No sxs. since here.Sole nuetamsulo sin 0.4 mg qd and finasterid e 5 mg qdMonitor urinary function. Hyperlipidemia 84005070 E78.49 Continueat orvastatin 10 mg qd and ASA 81 mg qdMonitor labs yearly. Angioedema of lip 106879 005 T78.3XXA ResolvedHa s completed prednisone taper.Astrid tor for recurrence . [id number] [facility] [address] [place] [address] 11/11/2024 08:19:31 11/15/2024 13:47:34 Peripheral vascular disease 893933062 I73.89 Z89.511 Has recovered well from r BKA on 07/21/24.H e plans to discharge despite prosthetic not fitting well and fu with [employer] on Thursday.He does not want to stay [...] the spring Chronic dney disease stage 4 935094680 N18.4 With CKD at baselineCo ntinueavoi d nephrotoxi c meds as able.sodiu m bicarbonat e 650 mg BID.Renal f/u as planned ouitptfu with pcp outpt and renal outpt Smoker 54606008 F17.213 Continues to smoke.jm rette gum 4 mg po q 3 hours prn cravingsCo ntinue to encourage cessation outpt Carbuncle of buttock 762 97085 L02.33 resolvedco mpleted cephalexin 500 mg q 8 hrs until 10/02 with probiotic BID..will order zinc cream to right upper abcess buttock qd until healedmoni tor for s/s of infection outpt with pcp Hyperkalemia 16785966 E8 7.5 Remains WNLContinu erenal diet (low k)NaHCO3 as aboveLokel ma 10 gms qdlabs outpt with pcp Adult fail ure to thrive syndrome 995172540 R62.7 Much improved and seems to be doing better with plan for BKA soonEncour age healthy eating outpt Hypertensive disorder 38 411554 I10 Remains in good control, bp high this am but has not got his bp meds yet todayConti nueamlodip ine 10 mg qdmetoprol ol succinate 100 mg qdhydralaz ine 50 mg TID.Monito r BP and labs outpt with pcp Type 2 kishor betes mellitus 86238997 E11.21 Very good since return, mostly <150.HgA1C was 7.4 in 03/2024, and 6.4 on 08/22/24.C ontinueFar xiga 10 mg qd and SSI.If sugars remain <200 consistent ly can change TID fingerstic ks to qAM.monito r outpt with pcp outpt Benign pro static hyperplasia 304461254 N40.0 No sxs. since here.Sole nuetamsulo sin 0.4 mg qdfinaster paula 5 mg qdMonitor urinary function outpt with pcp Hyperlipidemia 95695763 E78.49 Continueat orvastatin 10 mg qdASA 81 mg qdMonitor labs with pcp prn Angioedema of lip 019777 005 T78.3XXA Resolvedwa s never on sarita [...] Miles Member ID Guarantor Name 11/11/2024 1 [facility] - DOS ON OR AFTER 2023 - MEDICARE ADVANTAGE [place] & [place] (MEDICARE REPLACEMENT/ADV ANTAGE - PPO) Renato Hinson [id number] Renato Hinson Notes Date Note Type Note Provider Name and Address Organization Details Recorded Time 09/29/2024 text/html Renato is seen today for initial intake. He is a 64 yo man, just discharged from [facility] 09/27. 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 ISABEL SAUNDERS NP [address] [facility], [address], [place], [address], [facility] - [facility] 09/29/2024 15:14:57 09/30/2024 text/html This is a [...] able to admit him, unclear if to residential care or continued rehab.He was supposed to [...] HLD, and cigarette smoker. Janice Mitchell MD [address] [place] [address], [address], [place], [address], [facility] 09/30/2024 16:14:41 10/13/2024 text/html Pt is seen [...] a few times. Oksana Lennon, TANYA [address] [facility], [address], [place], [address], [facility] 10/13/2024 10:38:23 10/21/2024 text/html Pt is seen for a 90 day routine rounding visit today. His PMH includes HTN, severe PVD s/p right BKA on 07/21/24, AODM with neuropathy, CKD stage 4, hx of Hep C from tattoo, latent Tb (txed in 2020), HLD, and cigarette smoker. Renato is 64 yo man here at [facility] for rehab who d/c'd to home [...] resolved with abx. He has received his supervisor shuttle preparation and site of BKA well healed. His prosthetic should be in this week. He is aware he should stay a few days to make should he has proper training and guidance to use the prosthetic here with therapy and then consider dc home. On exam, he is seen lying in bed in [facility]. He is excited to get his prosthetic this week and get back to his old life. He denies any new concerns. Unclear if weight is accurate at 182 lbs this week which would be down form 198 lbs on admission. Will have another weight done. Denies any vomiting or decreased eating today. Oksana Lennon, TANYA [address] [facility], [address], [place], [address], [facility] 10/21/2024 17:16:46 11/11/2024 text/html Pt is seen for a discharge summary. His PMH includes HTN, severe PVD s/p right BKA on 07/21/24, AODM with neuropathy, CKD stage 4, hx of Hep C from tattoo, latent Tb (txed in 2020), HLD, and cigarette smoker. Renato is 64 yo man here at [facility] for rehab who d/c'd to home [...] resolved with abx. He has received his supervisor shuttle preparation and site of BKA well healed. He [...] the prosthetic place on Thursday morning. His supervisor shuttle preparation is applied at this visit and he is aware the supervisor shuttle preparation is almaraz to wear to keep the swelling down. On exam, He states he is going home with , has walker and cane, and will be just fine . He denies any other complaints or concerns. Lung CTA in NAD. Oksana Lennon NP [address] [facility], [address], [place], [address], [facility] 11/11/2024 08:43:30
== END 2025-04-10 13:18 | disposition home or self-care (01) ==
LOC: HO.RADIR 13:17
PROVIDERS: PCP Internal Medicine; Visit Provider Internal Medicine Infectious Disease
DX: R78.81 Bacteremia (principal)
CPT/HCPCS: 36589; J2003

== ENCOUNTER → 2025-04-10 13:27 | Outpatient (BNV) | payer OTHER, SELFPAY | PROVIDERS: PCP Internal Medicine; Visit Provider Radiology Diagnostic Radiology | DX: Z45.2 Encounter for adjustment and management of vascular access device (principal) | CPT/HCPCS: 36589 ==

== ENCOUNTER 2025-04-14 13:47 | Outpatient (AMB) | payer OTHER, SELFPAY ==
--- OUTSIDE RECORDS SUMMARY | 2025-04-14 13:51 | XMS_ITS | Encounter Summary ---
Author Organization [facility] Address [address] [place] [address] Care Team Providers Care Rehabilitation Aide Name Role Phone Travis Au MD Primary Care Provider [phone] Encounter Details Date Type Department Care Team (Latest Contact Info) Description 11/01/2024 Lab Requisition [facility] - Main Lab [address] [place] [address] Brandon Mckeon MD [address] [place] [address] Type 2 diabetes mellitus without [...] LAB CHEMISTRY METHOD 11/02/2024 12:37 PM EST [facility] Potassium 5.1 3.5 - 5.5 [...] [facility] Comment:Calculation based on the Chronic [...] MD LAB BLOOD ORDERABLES Final Resu lt [facility] [address] [place] [address], [place] [phone] * (ABNORMAL) Complete blood count (11/02/2024 7:04 AM EST) [facility] WBC 8.5 4.8 - 10.8 K/mcL [...] LAB HEMETOLOGY METHOD 11/02/2024 12:23 PM EST [facility] Blood Venous blood specimen / Unknown Venipuncture / Unknown 11/02/2024 7:04 AM EST 11/02/2024 11:13 AM EST us Brandon Mckeon MD LAB BLOOD ORDERABLES Final Resu lt [facility] [address] [place] [address], documented in this encounter Visit Diagnoses Diagnosis Type 2 diabetes mellitus without complications (CMS/HCC V24, CMS/HCC V28) documented in this encounter Care Teams Rehabilitation Aide Relationship Specialty Start Date End Date Travis Au MD [address] [place] [address], [phone] PCP - General Family Medicine 08/22/24 documented as of this encounter
--- OUTSIDE RECORDS SUMMARY | 2025-04-14 13:51 | XMS_ITS | Data Portability ---
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 Not available [...] Organization Details Recorded Time Peripheral vascular disease 743501529 Active 2023 Oksana Lennon NP [address], [place], [address], [facility] [employer] 4 17:52:49 Adult failure to thrive syndrome 056210666 Active 2023 Oksana Lennon NP [address], [address], [place], [address], [facility] [employer] 4 17:53:00 Type 2 diabetes mellitus 25927386 Active 2023 Oksana Lennon NP [address], [place], [address], [facility] 4 17:53:10 Hypertensive disorder 27746151 Active 2023 Oksana Lennon NP [address], [address], [place], [address], [facility] 4 17:53:15 Benign prostatic hyperplasia 471543049 Active 2023 Oksana Lennon NP [address], [address], [place], [address], [facility] 4 17:53:22 Hyperkalemia 47984214 Active 2023 Oksana Lennon NP [address] [facility], [address], [place], [address], [facility] 4 17:53:30 Chronic kidney disease stage 4 887976116 Active 2023 Oksnaa Lennon NP [address] [facility], [address], [place], [address], [facility] 4 17:54:21 Hyperlipidemia 15481157 Active 2023 Oksana Lennon NP [address] [facility] [address] [facility] [address], [address], [place], [address], [facility] 4 18:13:13 Smoker 60798618 Active 2023 Oksana Lennon NP [address] [facility], [address], [place], [address], [facility] 4 18:15:45 Problem Notes None recorded. Medical Equipment None Reported. Allergies Allergen ID Allergen Name Allergen Category Reaction Reaction Severity Criticality Documentation Date Start Date Code Code System Note Provider Name and Address Organization Details Recorded Time 00919 morphine medicatio n itching Not available low 08/22/2024 7052 RxNorm Janice Mitchell MD [address], [address], [place], [address], [facility] 4 20:23:08 40864 bupropion Not available confusion hallucina tions Not available Not available Not available 08/22/2024 32023 RxNorm tremo rs, aggre ssive , loss of appet ite Janice Mitchell MD [address] [facility], [address], [place], [address] , [facility] 4 20:23:00 Vitals Date Recorded Body height Body weight Body mass index (BMI) Heart rate Respiratory rate Body temperature Oxygen saturation Oxygen saturation in Arterial blood by Pulse oximetry Systolic And Diastolic Provider Name and Address Organization Details Last Updated DateTime 5 179.83 cm 76444.8 1 g 25.5 kg/m2 62 /min 16 /min 98.2 [degF] 96 % 96 % 146/74 mm[Hg] Oksana Lennon NP [address] [facility] [address], [place], [address], [facility] 5 10:26:07 Date Recorded Body height Body weight Body mass index (BMI) Heart rate Respiratory rate Body temperature Oxygen saturation Oxygen saturation in Arterial blood by Pulse oximetry Systolic And Diastolic Provider Name and Address Organization Details Last Updated DateTime 5 179.83 cm 69837.8 1 g 25.5 kg/m2 68 /min 18 /min 97.2 [degF] 96 % 96 % 158/65 mm[Hg] Oksana Lennon NP [address] [place] [address], [facility] [address], [place], [address], [facility] 5 16:59:12 Date Recorded Body height Body mass index (BMI) Body weight Heart rate Respiratory rate Body temperature Oxygen saturation Oxygen saturation in Arterial blood by Pulse oximetry Systolic And Diastolic Provider Name and Address Organization Details Last Updated DateTime 5 179.83 cm 24.1 kg/m2 06341.8 9 g 71 /min 19 /min 97.9 [degF] 97 % 97 % 162/81 mm[Hg] Oksana Lennon NP [address] [place] [address], [facility] [address], [place], [address], [facility] 5 08:22:41 Date Recorded Body height Heart rate Respiratory rate Body temperature Oxygen saturation Oxygen saturation in Arterial blood by Pulse oximetry Systolic And Diastolic Provider Name and Address Organization Details Last Updated DateTime 4 179.83 cm 70 /min 18 /min 98 [degF] 98 % 98 % 132/75 mm[Hg] ISABEL SAUNDERS NP [address] [facility], [address], [place], [address], [facility] 4 15:05:47 Date Recorded Body height Body mass index (BMI) Body weight Heart rate Respiratory rate Body temperature Oxygen saturation Oxygen saturation in Arterial blood by Pulse oximetry Systolic And Diastolic Provider Name and Address Organization Details Last Updated DateTime 4 179.83 cm 28.2 kg/m2 62369.0 7 g 77 /min 18 /min 98 [degF] 98 % 98 % 132/75 mm[Hg] Janice Mitchell MD [address] [facility], [facility] [address], [place], [address], [facility] 4 15:06:09 Social History Question Answer Notes LastModified by Organizat ion Details LastModified Time Tobacco Smoking Status Current Every Day Smoker Oksana Lennon NP [address] [facility], [address], [place], [address], [facility] 08/22/2024 17:36:42 What Is Your Code Status? Full Code Information not available 08/22/2024 Where Do You Live? Apartment Information not available 08/22/2024 Do You Have A Medical Power Of Meter Tester Primary? Yes Has HCP [email or web address] Information not available 08/23/2024 What Was The Date Of Your Most Recent Tobacco Screening? 08/22/2024 Information not available 08/22/2024 Do You Have An Out Of Hospital DNR? Yes [email or web address] Information not available 08/23/2024 What Is Your [...] Recorded Time Tdap 09/04/2023 completed Bri [facility] 10/04/2024 14:59:23 influenza, unspecified formulation 06/27/2022 completed [facility] 10/04/2024 14:59:38 influenza, unspecified formulation 06/26/2023 completed Bri [facility] 10/04/2024 14:59:46 SARS-COV-2 (COVID-19) vaccine, UNSPECIFIED 10/16/2020 completed Bri [facility] 10/04/2024 15:00:00 SARS-COV-2 (COVID-19) vaccine, UNSPECIFIED 11/06/2020 completed Bri [facility] 10/04/2024 15:00:07 SARS-COV-2 (COVID-19) vaccine, UNSPECIFIED 06/02/2021 completed [facility] 10/04/2024 15:00:15 SARS-COV-2 (COVID-19) vaccine, UNSPECIFIED 06/27/2022 completed [facility] 10/04/2024 15:00:22 SARS-COV-2 (COVID-19) vaccine, UNSPECIFIED 06/26/2023 completed Bri [facility] 10/04/2024 15:00:37 Past Encounters Encounter ID Performer Location Encounter Start Date Encounter Closed Date Diagnosis/Indication Diagnosis SNOMED-CT Code Diagnosis ICD10 Code Diagnosis Note [id number] Oksana Lennon NP [facility] [address] 08/22/2024 14:49:44 08/23/2024 10:31:07 Adult failure to thrive syndrome 865330088 R62.7 supportive carept /ot eval and treat for rom, mobility, strengthen ing, gait, balancemon itor for need to adjust careplan Hypertensive disorder 38 520340 I10 amlodipine 10 mg po qdmetoprol ol xl 100 mg po qdhydralaz ine 50 tidmonitor bp and need to adjust Hyperkalemia 98615080 E8 7.5 renal diet, low potassiuml okelma 10 g qdsodium bicarb 650 mg po bidcbc and bmp weekly x 3 weeks Chronic ki dney disease stage 4 971408734 N18.4 renal diet, low potassiumw as educated in hospital about diet, cont here with dieticainb aseline 2.5-3lokel ma 10 g qdsodium bicarb 650 mg po bidfu with nephrology Dr Perez ? 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 with BKA Right and [address] and severe vascuopath yxarelto 2.5 mg po bidoxycodo ne 5 mg po q 8 hours prn paintyl prnPT/OT eval and treatfu plan:[facility] 12/3 3pm and 330 pm and 09/08 1:30 pmwill leave open to air for nowmonitor for s/s of infection Type 2 kishor betes mellitus 77209274 E11.21 farxiga 10 mg po qdlispro tid ac SSImonitor BS and adjust as needed Benign pro static hyperplasia 549085095 N40.0 tamsulosin 0.4 mg po dailyfinas teride 5 mg po qdmonitor Hyperlipidemia 82207838 E78.5 atorvastat in 10 mg po qdaspirin 81 mg po qdmonitor Smoker 26651044 F17.200 pt is chronic smokereduc ated 3-10 minutes and refuses NRT or to quitplan is to continue smokingmon itor for readiness to quit with chronic disease [id number] Janice Mitchell MD [facility] [address] 08/23/2024 19:50:37 08/29/2024 13:25:12 Adult failure to thrive syndrome 424026517 R62.7 PT/OT as above.Astrid tor mood and po intake.Psy ch consult prn Hypertensive disorder 38 376315 I10 Some borderline SBPs since here, but diastolics all low normal or low.No change in meds for nowContinu e amlodipine 10 mg qd, metoprolol succinate 100 mg qd, and hydralazin e 50 mg TID.Monito r BP and labs Hyperkalemia 53995834 E8 7.5 In good control on current regimen.Co ntinue renal diet, Lokelma 10 g qd and sodium bicarb 650 mg BID.Monito r labs. Chronic ki dney disease stage 4 433520538 N18.4 At baseline.C ontinue to avoid nephrotoxi c meds as able.Monit or labs.Renal f/u as planned. Peripheral vascular disease 947794527 I73.89 Z89.511 Recovering well from BKA on [...] this week. Type 2 kishor betes mellitus 93677972 E11.21 Sugars in good control since here.Last HgA1C was 7.4 in 03/2024, and 6.4 on 08/22/24.C ontinue Farxiga 10 mg qd and SSI.Monito r fingerstic ks TID and HgA1C q 3 months. Benign pro static hyperplasia 323025920 N40.0 No current sxs.Contin ue tamsulosin 0.4 mg qd and finasterid e 5 mg qdMonitor urinary function. Hyperlipidemia 98770455 E78.49 Continue atorvastat in 10 mg qd and ASA 81 mg qdMonitor labs as outpt. Smoker 69452418 F17.213 Earlier told someone he was jonesing for a cigarette , but tells me he is considerin g quitting.N ot interested in NRT, says he has had bad rxns.Sole nue to encourage cessation. [id number] Oksana Lennon NP [address] [address] 09/08/2024 12:24:42 09/12/2024 13:04:51 Peripheral vascular disease 189302363 I73.89 Z89.511 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, but having trouble with amp emotionall y and trouble caring for himself.co ntPT/OT for strengthen ing, balance, gait training, safety and function.a [facility] [place] ontinue fall precaution s.Monitor for safety.Con tinueXarel to 2.5 mg BID for DVT prophylaxi s.oxycodon e 5 mg q 8 hrs prnAPAP 650 mg q 4 hrs prn.F/U with vascular as planned.Mo nitor incision, healed in today09/08 rehan ordered and faxed to [facility] with appt 09/15fu in spring for further testing of left leg Adult fail ure to thrive syndrome 025540582 R62.7 PT/OT as above.Astrid tor mood and po intake.Psy ch consult prn Hypertensive disorder 38 660363 I10 bp stableCont inueamlodi pine 10 mg qdmetoprol ol succinate 100 mg qd,hydrala zine 50 mg TID.Monito r BP and labs Hyperkalemia 00313720 E8 7.5 In good control on current regimen.Co ntinue renal diet (low k)Lokelma 10 g qdsodium bicarb 650 mg BID.Monito r labs. not done this week, will reorder Chronic ki dney disease stage 4 125214873 N18.4 At baseline.C ontinue to avoid nephrotoxi c meds as able.monit or bmp for increased kcont sodium bicarbonat e bidMonitor labs.Renal f/u as planned. Type 2 kishor betes mellitus 96926086 E11.21 BS stableLast HgA1C was 7.4 in 03/2024, and 6.4 on 08/22/24.C ontinueFar xiga 10 mg qd and SSI.Monito r fingerstic ks TID and HgA1C q 3 months. Benign pro static hyperplasia 722517584 N40.0 No current sxs.Contin uetamsulos in 0.4 mg qd and finasterid e 5 mg qdMonitor urinary function. Hyperlipidemia 46759746 E78.49 Continueat orvastatin 10 mg qd and ASA 81 mg qdMonitor labs as outpt. Smoker 84672588 F17.213 continues to smokeNot interested in NRT, says he has had bad rxns.educsilvestre tate on smoking cessationC ontinue to encourage cessation. [id number] Oksana Lennon NP [facility] [address] 09/14/2024 14:33:03 09/16/2024 14:16:40 Peripheral vascular disease 519391785 I73.89 Z89.511 Recovering well from BKA on [...] prn Adult fail ure to thrive syndrome 236657215 R62.7 Monitor mood and intakePsyc h consult prn Hypertensive disorder 38 299309 I10 bp stable hereContin ueamlodipi ne 10 mg qdmetoprol ol succinate 100 mg qd,hydrala zine 50 mg TID.Monito r BP and labs outpt with pcplabs ordered but not done, will attempt tomorrow again Hyperkalemia 07634639 E8 7.5 In good control on current regimen.Co ntinue renal diet (low k)Lokelma 10 g qdsodium bicarb 650 mg BID.Monito r labs. not done this week, will reorder for ed am again before dc(unclear why labs aren't done, question difficult stick? )fu with pcp Chronic ki dney disease stage 4 913744650 N18.4 At baseline.C ontinue to avoid nephrotoxi c meds as able.conts odium bicarbonat e bidMonitor labs outpt with pcpRenal f/u as planned. Type 2 kishor bettorres mellitus 09083692 E11.21 BS stableLast HgA1C was 7.4 in 03/2024, and 6.4 on 08/22/24.C ontinueFar xiga 10 mg qd and SSI.Monito r fingerstic ks TID and HgA1C q 3 months Benign pro static hyperplasia 433732575 N40.0 No current sxs.Contin uetamsulos in 0.4 mg qd and finasterid e 5 mg qdMonitor urinary function Hyperlipidemia 05379179 E78.49 Continueat orvastatin 10 mg qd and ASA 81 mg qdMonitor labs with pcp prn Smoker 55419952 F17.213 continues to smokeNot interested in NRT, says he has had bad rxns.educsilvestre tate on smoking cessationC ontinue to encourage cessation [id number] Oksana Lennon NP [address] [address] 09/21/2024 13:09:13 09/22/2024 12:24:03 Peripheral vascular disease 394098951 I73.89 Z89.511 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, but having trouble with amp emotionall y and trouble caring for himself.ov erall doing much better and healing in, incision closedCont inue fall precaution s.Monitor for safety.Con tinueXarel to 2.5 mg BID for DVT prophylaxi s.APAP 650 mg q 4 hrs prn.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 and educated on need to use it so he can get prothetic soon.will fu with bell prothetics fu in spring for further testing of left leg with vascular outpt and prn Adult fail ure to thrive syndrome 109422057 R62.7 Monitor mood and intakePsyc h consult prn Hypertensive disorder 38 370595 I10 bp stable 118/64Cont inueamlodi pine 10 mg qdmetoprol ol succinate 100 mg qd,hydrala zine 50 mg TID.Monito r BP and labs outpt with pcp Hyperkalemia 13855256 E8 7.5 In good control on current regimen.Co ntinue renal diet (low k)Lokelma 10 g qdsodium bicarb 650 mg BID.Monito r labs.fu with renal Chronic ki dney disease stage 4 758168817 N18.4 At baseline.C ontinue to avoid nephrotoxi c meds as able.conts odium bicarbonat e bidRenal f/u as planned. Type 2 kishor betes mellitus 44238333 E11.21 BS stableHgA1 C was 7.4 in 03/2024, and 6.4 on 08/22/24 improvedCo ntinueFarx iga 10 mg qd and SSI.Monito r fingerstic ks TID and HgA1C q 3 months Benign pro static hyperplasia 242581672 N40.0 No current sxs.Contin uetamsulos in 0.4 mg qd and finasterid e 5 mg qdMonitor urinary function [id number] Oksana Lennon, TANYA [facility] [address] [address] 09/22/2024 12:31:57 09/26/2024 12:28:42 Peripheral vascular disease 312404067 I73.89 Z89.511 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, but having trouble with amp emotionall y and trouble caring for himself.ov erall doing much better and healing in, incision closedCont inue fall precaution s.Monitor for safety.Con tinueXarel to 2.5 mg BID for DVT prophylaxi s.APAP 650 mg q 4 hrs prn.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 and educated on need to use it so he can get prothetic soon.will fu with bell prosthetic sfu in spring for further testing of left leg with vascular outpt and prn Adult fail ure to thrive syndrome 861338615 R62.7 Monitor mood and intakePsyc h consult prn Hypertensive disorder 38 864559 I10 stableCont inueamlodi pine 10 mg qdmetoprol ol succinate 100 mg qd,hydrala zine 50 mg TID.Monito r BP and labs outpt with pcp Hyperkalemia 14320244 E8 7.5 In good control on current regimen.Co ntinue renal diet (low k)Lokelma 10 g qdsodium bicarb 650 mg BID.Monito r labs.fu with renalfu labs cbc and bmp 09/26 Chronic ki dney disease stage 4 118149268 N18.4 At baseline.C ontinue to avoid nephrotoxi c meds as able.conts odium bicarbonat e bidRenal f/u as planned. Type 2 kishor betes mellitus 76178207 E11.21 BS stableHgA1 C was 7.4 in 03/2024, and 6.4 on 08/22/24 improvedCo ntinueFarx iga 10 mg qd and SSI.Monito r fingerstic ks TID and HgA1C q 3 months Benign pro static hyperplasia 650617365 N40.0 No current sxs.Contin uetamsulos in 0.4 mg qd and finasterid e 5 mg qdMonitor urinary function Furuncle of buttock 1243 0003 L02.32 large abcess on posterior right upper buttock likely [id number] /19start cephalexin 500 mg po q 8 hours (will decrease from q6 hr dosing due to poor renal fx)x 7 days with probioticn s wash, pat dry, and apply foam dressing to areamonito r for s/s of infectionc bc and bmp on 09/26cons ider wound consult Angioedema of lip 276664 005 T78.3XXA pt with angioedema to only [...] distress, diff swallowing , or increased swelling [id number] 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 and educated on need to use it so he can get prothetic soon.will fu with bell prosthetic sfu in spring for further testing of left leg with vascular outpt and prn Adult fail ure to thrive syndrome 474053390 R62.7 Monitor mood and intakePsyc h consult prn Hypertensive disorder 38 141211 I10 stableCont inueamlodi pine 10 mg qdmetoprol ol succinate 100 mg qd,hydrala zine 50 mg TID.Monito r BP and labs outpt with pcp Hyperkalemia 68102269 E8 7.5 In good control on current regimen.Co ntinue renal diet (low k)Lokelma 10 g qdsodium bicarb 650 mg BID.Monito r labs.fu with renalfu labs cbc and bmp 09/26 Chronic ki dney disease stage 4 220706107 N18.4 At baseline.C ontinue to avoid nephrotoxi c meds as able.conts odium bicarbonat e bidRenal f/u as planned. Type 2 kishor betes mellitus 81027073 E11.21 BS stableHgA1 C was 7.4 in 03/2024, and 6.4 on 08/22/24 improvedCo ntinueFarx iga 10 mg qd and SSI.Monito r fingerstic ks TID and HgA1C q 3 months Benign pro static hyperplasia 936123951 N40.0 No current sxs.Contin uetamsulos in 0.4 mg qd and finasterid e 5 mg qdMonitor urinary function Carbuncle of buttock 762 90291 L02.33 large golf ball size abcess on [...] to assess renal func and for infection [id number] Janice Mitchell MD [address] [address] 09/26/2024 19:01:26 09/27/2024 08:53:46 Carbuncle of buttock 60276916 L02.33 Improving. Continue cephalexin 500 mg q 8 hrs until 09/29 with probiotic BID.Contin ue wound care as ordered.To be seen by wound care in AM before d/c.F/U with PCP as outpt. Angioedema of lip 542688 005 T78.3XXA ResolvedFi brandon prednisone taper.Astrid tor for recurrence . 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 Adult fail ure to thrive syndrome 516869942 R62.7 Much improved.F /U with PCP as outpt. Hypertensive disorder 38 803506 I10 In good control.Co ntinue amlodipine 10 mg qd, metoprolol succinate 100 mg qd, and hydralazin e 50 mg TID.F/U with PCP as outpt. Hyperkalemia 24537292 E8 7.5 Remains WNL, but sl. higher than 09/15, likely due to UMAIR.Contin ue renal diet (low k)Continue NaHCO3 as above and Lokelma 10 gms qdWill order repeat labs for 09/29 with [facility]. Chronic ki dney disease stage 4 979281156 N18.4 With sig worsening today compared to 09/15Enc raged pt to drink more fluids.Con tinue to avoid nephrotoxi c meds as able.Sole nue sodium bicarbonat e 650 mg BID.Renal f/u as planned. Type 2 kishor betes mellitus 13208880 E11.21 BS mostly in ood control since here with occ high readingHgA 1C was 7.4 in 03/2024, and 6.4 on 08/22/24 improvedCo ntinue Farxiga 10 mg qd and SSI.F/U with PCP as outpt. Benign pro static hyperplasia 013648053 N40.0 No sxs. since here.Sole nue tamsulosin 0.4 mg qd and finasterid e 5 mg qdF/U with PCP as outpt. Hyperlipidemia 10152678 E78.49 Continue atorvastat in 10 mg qd and ASA 81 mg qdMonitor labs as outpt. Smoker 96812076 F17.213 Has been smoking since here.Refus ed NRT.Contin ue to encourage cessation. [id number] ISABEL SAUNDERS, TANYA [address] [address] 09/29/2024 15:04:27 09/30/2024 12:02:02 Chronic kidney disease stage 4 985923078 N18.4 With sig worsening 09/26 compared to 09/15Enc rage fluids.Con tinue to avoid nephrotoxi c meds as able.Follo w up with Nephrology as sched.Cont inue sodium bicarbonat e 650 mg BID.CMP in am Hyperkalemia 08615617 E8 7.5 Remains WNL, but sl. 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 Carbuncle of buttock 762 42757 L02.33 Improving. Continue cephalexin 500 mg q 8 hrs until complete, as well as probiotic BID.Contin ue wound care as ordered.To be seen by wound care in AM before d/c.F/U with PCP as outpt. Angioedema of lip 996709 005 T78.3XXA ResolvedFi brandon prednisone taper.Astrid tor for recurrence . Adult fail ure to thrive syndrome 212354166 R62.7 Much improved.F /U with PCP as outpt. Hypertensive disorder 38 614559 I10 In good control.Co ntinue amlodipine 10 mg qd, metoprolol succinate 100 mg qd, and hydralazin e 50 mg TID.F/U with PCP as outpt. Type 2 kishor betes mellitus 53104741 E11.21 BS mostly in good control since here with occ. high readingHgA 1C was 7.4 in 03/2024, and 6.4 on 08/22/24 improvedCo ntinue Farxiga 10 mgBS bid once a week and prnF/U with PCP as outpt. Benign pro static hyperplasia 726126041 N40.0 No sxs. since here.Sole nue tamsulosin 0.4 mg qd and finasterid e 5 mg qdF/U with PCP as outpt. Hyperlipidemia 41813744 E78.49 Continue atorvastat in 10 mg qd and ASA 81 mg qdMonitor labs as outpt. Smoker 57049731 F17.213 Has been smoking since here.Refus ed NRT.Contin ue to encourage cessation. [id number] Janice Mitchell MD [facility] [address] 09/30/2024 14:58:21 10/03/2024 12:45:37 Chronic kidney disease stage 4 731004693 N18.4 With sig worsening on 09/26 compared to t was going to drink more fluids at home and he says he did.Contin ue to avoid nephrotoxi c meds as able.Sole nue sodium bicarbonat e 650 mg BID.Renal f/u as planned.La bs were to be rechecked today, but pt refused.Pr omises he will allow lab draw on Wednesday 10/03. Hyperkalemia 60485625 E8 7.5 Remains WNL, but was sl. higher on 09/26 than 09/15, likely due to UMAIR.Contin ue renal diet (low k)Continue NaHCO3 as above and Lokelma 10 gms qdLabs on 10/03 as above. 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 Carbuncle of buttock [id number] 24724 L02.33 Improving per pt.Wound care note from 09/27 not scanned in to PCC yet.Contin ue cephalexin 500 mg q 8 hrs until 10/02 with probiotic BID.Contin ue wound care as ordered.F/ U with wound care weekly until healed. Angioedema of lip 010611 005 T78.3XXA ResolvedHa s completed prednisone taper.Astrid tor for recurrence . Adult fail ure to thrive syndrome 307863042 R62.7 Much improved.C ontinue liquid protein 30 mg qd to help with wound healing.En courage healthy eating. Hypertensive disorder 38 533178 I10 Remains in good control.Co ntinue amlodipine 10 mg qd, metoprolol succinate 100 mg qd, and hydralazin e 50 mg TID.Monito r BP and labs. Type 2 kishor betes mellitus 93662203 E11.21 Very good since return, all <150.HgA1C was 7.4 in 03/2024, and 6.4 on 08/22/24.C ontinue Farxiga 10 mg qd and SSI.If sugars remain <200 consistent ly can change TID fingerstic ks to qAM. Benign pro static hyperplasia 420714471 N40.0 No sxs. since here.Sole nue tamsulosin 0.4 mg qd and finasterid e 5 mg qdMonitor urinary function. Hyperlipidemia 59694499 E78.49 Continue atorvastat in 10 mg qd and ASA 81 mg qdMonitor labs yearly. Smoker 88179075 F17.213 Continues to smoke.Cont inues to refuse NRT.Contin ue to encourage cessation. [id number] Oksana Lennon NP [place] [address] [place] [address] 10/13/2024 10:10:33 10/14/2024 10:47:39 Chronic kidney disease stage 4 421563372 N18.4 With sig worsening on 09/26 compared to t was going to drink more fluids at home and he says he did.Contin ueavoid nephrotoxi c meds as able.sodiu m bicarbonat e 650 mg BID.Renal f/u as planned.La bs ordered for bmp and cbc on 10/19 on thu x 2labs as above Hyperkalemia 90795899 E8 7.5 Remains WNL, but was sl. higher on 09/26 than 09/15, likely due to UMAIR.Contin uerenal diet (low k)NaHCO3 as aboveLokel ma 10 gms qdLabs on 10/03 as above.bmp and cbc 10/19 ordered Peripheral vascular disease [id number] I73.89 Z89.511 Has recovered well from r BKA on 07/21.plan for prothetic on 10/21 per pt.Continu eXarelto 2.5 mg BID for DVT prophylaxi s (not sure how long he needs to be on this).Cont inue APAP 650 mg q 4 hrs prn.Contin ue stretcher leveler operator helper and f/u with prosthetis t as planned.F/ U with vascular as planned. Carbuncle of buttock 762 90701 L02.33 Improving per pt.mostly healedCont inuecomple lea cephalexin 500 mg q 8 hrs until 10/02 with probiotic BID.Contin ue wound care as ordered.F/ U with wound care weekly until healed.ratna l order zinc cream to right upper abcess buttock qd until healedmoni tor for s/s of infection Adult fail ure to thrive syndrome 578169655 R62.7 Much improved.E ncourage healthy eating. Hypertensive disorder 38 099374 I10 Remains in good control.Co ntinueamlo dipine 10 mg qd, metoprolol succinate 100 mg qd, and hydralazin e 50 mg TID.Monito r BP and labs. Type 2 kishor bettorres mellitus 36672223 E11.21 Very good since return, all <150.HgA1C was 7.4 in 03/2024, and 6.4 on 08/22/24.C ontinue Farxiga 10 mg qd and SSI.If sugars remain <200 consistent ly can change TID fingerstic ks to qAM. Benign pro static hyperplasia 664827287 N40.0 No sxs. since here.Sole nuetamsulo sin 0.4 mg qd and finasterid e 5 mg qdMonitor urinary function. Hyperlipidemia 34452112 E78.49 Continueat orvastatin 10 mg qd and ASA 81 mg qdMonitor labs yearly. Smoker 76723593 F17.213 Continues to smoke.spen t 3-10 min on education and NRT therapy, he is willing to try nicorette gumnicoret te gum 4 mg po q 3 hours prn cravingsCo ntinue to encourage cessation. [id number] Oksana Lennon NP [address] [address] 10/21/2024 09:04:51 10/24/2024 16:33:36 Peripheral vascular disease 170540922 I73.89 Z89.511 Has recovered well from r BKA on 07/21.plan for prosthetic on 10/21 per pt.Continu eXarelto 2.5 mg BID for DVT prophylaxi s (not sure how long he needs to be on this).APAP 650 mg q 4 hrs prn.shrink er and f/u with prosthetis t as planned.F/ U with vascular as planned outpt in the spring Chronic dney disease stage 4 292974307 N18.4 With sig worsening on 09/26 compared to t was going to drink more fluids at home and he says he did.Contin ueavoid nephrotoxi c meds as able.sodiu m bicarbonat e 650 mg BID.Renal f/u as planned.la bs as above, and reordered Smoker 95787567 F17.213 Continues to smoke.jm rette gum 4 mg po q 3 hours prn cravingsCo ntinue to encourage cessation. Carbuncle of buttock 762 15391 L02.33 resolvedco mpleted cephalexin 500 mg q 8 hrs until 10/02 with probiotic BID..will order zinc cream to right upper abcess buttock qd until healedmoni tor for s/s of infection Hyperkalemia 93133476 E8 7.5 Remains WNL, but was sl. higher on 09/26 than 09/15, likely due to UMAIR.Contin uerenal diet (low k)NaHCO3 as aboveLokel ma 10 gms qdbmp and cbc weekly for one more lab Adult fail ure to thrive syndrome 957063425 R62.7 Much improved and seems to be doing better with plan for BKA soonEncour age healthy eating. Hypertensive disorder 38 469071 I10 Remains in good control.Co ntinueamlo dipine 10 mg qdmetoprol ol succinate 100 mg qdhydralaz ine 50 mg TID.Monito r BP and labs. Type 2 kishor betes mellitus 12809299 E11.21 Very good since return, all <150.HgA1C was 7.4 in 03/2024, and 6.4 on 08/22/24.C ontinue Farxiga 10 mg qd and SSI.If sugars remain <200 consistent ly can change TID fingerstic ks to qAM. Benign pro static hyperplasia 607986951 N40.0 No sxs. since here.Sole nuetamsulo sin 0.4 mg qd and finasterid e 5 mg qdMonitor urinary function. Hyperlipidemia 36593089 E78.49 Continueat orvastatin 10 mg qd and ASA 81 mg qdMonitor labs yearly. Angioedema of lip 341733 005 T78.3XXA ResolvedHa s completed prednisone taper.Astrid tor for recurrence . [id number] Oksana Lennon NP [facility] [address] [place] [address] 11/11/2024 08:19:31 11/15/2024 13:47:34 Peripheral vascular disease 008780709 I73.89 Z89.511 Has recovered well from r BKA on 07/21/24.H e plans to discharge despite prosthetic not fitting well and fu with [employer] on Thursday.He does not want to stay [...] the spring Chronic dney disease stage 4 205488755 N18.4 With CKD at baselineCo ntinueavoi d nephrotoxi c meds as able.sodiu m bicarbonat e 650 mg BID.Renal f/u as planned ouitptfu with pcp outpt and renal outpt Smoker 06497246 F17.213 Continues to smoke.jm rette gum 4 mg po q 3 hours prn cravingsCo ntinue to encourage cessation outpt Carbuncle of buttock 762 47079 L02.33 resolvedco mpleted cephalexin 500 mg q 8 hrs until 10/02 with probiotic BID..will order zinc cream to right upper abcess buttock qd until healedmoni tor for s/s of infection outpt with pcp Hyperkalemia 39159135 E8 7.5 Remains WNLContinu erenal diet (low k)NaHCO3 as aboveLokel ma 10 gms qdlabs outpt with pcp Adult fail ure to thrive syndrome 744055627 R62.7 Much improved and seems to be doing better with plan for BKA soonEncour age healthy eating outpt Hypertensive disorder 38 019086 I10 Remains in good control, bp high this am but has not got his bp meds yet todayConti nueamlodip ine 10 mg qdmetoprol ol succinate 100 mg qdhydralaz ine 50 mg TID.Monito r BP and labs outpt with pcp Type 2 kishor betes mellitus 78809353 E11.21 Very good since return, mostly <150.HgA1C was 7.4 in 03/2024, and 6.4 on 08/22/24.C ontinueFar xiga 10 mg qd and SSI.If sugars remain <200 consistent ly can change TID fingerstic ks to qAM.monito r outpt with pcp outpt Benign pro static hyperplasia 865857656 N40.0 No sxs. since here.Sole nuetamsulo sin 0.4 mg qdfinaster paula 5 mg qdMonitor urinary function outpt with pcp Hyperlipidemia 95605312 E78.49 Continueat orvastatin 10 mg qdASA 81 mg qdMonitor labs with pcp prn Angioedema of lip 163766 005 T78.3XXA Resolvedwa s never on sarita [...] Miles Member ID Guarantor Name 11/11/2024 1 [facility] - DOS ON OR AFTER 2023 - MEDICARE ADVANTAGE [place] (MEDICARE REPLACEMENT/ADV ANTAGE - PPO) Renato Hinson [id number] Renato Hinson Notes Date Note Type Note Provider Name and Address Organization Details Recorded Time 09/29/2024 text/html Renato is seen today for initial intake. He is a 64 yo man, just discharged from [facility] 09/27. returned him to the facility as [...] had f/u set up with PCP/renal and critical care nurse specialist.He developed an abscess of his low back/upper [...] and cigarette smoker. ISABEL SAUNDERS NP [address] [facility], [address], [place], [address], [facility] [employer] 09/29/2024 15:14:57 09/30/2024 text/html This is a [...] able to admit him, unclear if to senior care care or continued rehab.He was supposed to [...] HLD, and cigarette smoker. Janice Mitchell MD [address] [place] [address], [address], [place], [address], [facility] [employer] 09/30/2024 16:14:41 10/13/2024 text/html Pt is seen [...] a few times. Oksana Lennon, TANYA [address] [facility] [address] [facility] [address], [address], [place], [address], [facility] [employer] 10/13/2024 10:38:23 10/21/2024 text/html Pt is seen for a 90 day routine rounding visit today. His PMH includes HTN, severe PVD s/p right BKA on 07/21/24, AODM with neuropathy, CKD stage 4, hx of Hep C from tattoo, latent Tb (txed in 2020), HLD, and cigarette smoker. Renato is 64 yo man here at [facility] who d/c'd to home [...] resolved with abx. He has received his stretcher leveler operator helper and site of BKA well healed. His prosthetic should be in this week. He is aware he should stay a few days to make should he has proper training and guidance to use the prosthetic here with therapy and then consider dc home. On exam, he is seen lying in bed in [facility]. He is excited to get his prosthetic this week and get back to his old life. He denies any new concerns. Unclear if weight is accurate at 182 lbs this week which would be down form 198 lbs on admission. Will have another weight done. Denies any vomiting or decreased eating today. Oksana Lennon, TANYA [address] [facility] [address] [facility] [address], [address], [place], [address], [facility] [employer] 10/21/2024 17:16:46 11/11/2024 text/html Pt is seen for a discharge summary. His PMH includes HTN, severe PVD s/p right BKA on 07/21/24, AODM with neuropathy, CKD stage 4, hx of Hep C from tattoo, latent Tb (txed in 2020), HLD, and cigarette smoker. Renato is 64 yo man here at [facility] re[facility] who d/c'd to home [...] resolved with abx. He has received his stretcher leveler operator helper and site of BKA well healed. He [...] the prosthetic place on Thursday morning. His stretcher leveler operator helper is applied at this visit and he is aware the stretcher leveler operator helper is almaraz to wear to keep the swelling down. On exam, He states he is going home with , has walker and cane, and will be just fine . He denies any other complaints or concerns. Lung CTA in NAD. Oksana Lennon NP [address] [facility] [address], [address], [place], [address], [facility] [employer] 11/11/2024 08:43:30
--- OUTSIDE RECORDS SUMMARY | 2025-04-14 13:51 | XMS_ITS | Clinical Summary ---
Author Organization [facility] Address [address] [facility] [address] [place] [address] Phone Care Team Providers Care Cert Pharmacy Tech Name Role Phone Michelle Long MD Primary Care Provider [phone] Allergies Active Allergy Reactions Criticality Noted Date [...] Telephone [facility] [address] [place] [address] Sydney Rosales from Last 3 Months Family [...] to 49 Years) Discontinued 07/01/2010 Insurance [address] [place] [id number] [facility] ([id number]) MAHESH MACIAS [id number] [facility] Dual SNP ([id number]) Care Teams Cert Pharmacy Tech Relationship Specialty Start Date End Date Michelle Long MD [address] [place], [place] PCP - General Internal Medicine 10/06/23
--- NOTE | 2025-04-14 13:53 | HO.NEPHOV ---
Vital Signs 04/14/25 13:54 Height 6 ft Weight 147 lb 8 oz BMI 20.0 BP 160/70 H Blood Pressure Location Lt brachial Position Sitting Pulse 95 Pulse Source Pulse Oximeter Pulse Oximetry (%) 97 Oxygen Delivery Method Room Air Intake Visit Reasons: 3wks follow-up w/labs-Conf Manager Utilization Required: No Accompanied by: Significant Other Allergies morphine Allergy (Verified 04/14/25 13:54) Hallucinations bupropion Adverse Reaction (Verified 04/14/25 13:54) Hallucinations HPI Comments Details: 65 year male with COPD, chronic respiratory failure on O2, WENDY s/p right BKA, HTN, a AFib on Xarelto, type 2 diabetes, just recently s/p left great toe amputation, recently presented to the [facility] ER due to increased redness, swelling, pain at the amputation site as well as weakness, chills, body aches, cough, fever and shortness of breath for the past few days. He was found to have new AFIB with RVR as well as Heart failure . He also had sepsis secondary to acute osteomyelitis/septic arthritis L foot, lytic changes at the area suggestive of OM. cultures positive for MRSA,echo no vegetations; repeat blood culture 02/21 1/2 +, repeat blood cultures 02/23 was negative at 48 hrs. He was put on daptomycin but was readmitted in [facility]. He had ATN during his hospitalization but later in [facility] he was thought to have progression of his renal disease. He is here for follow up [facility] Medical History (Updated 04/14/25 @ 14:36 by Donell Ruiz MD) CKD (chronic kidney disease) stage 4, GFR 15-29 ml/min Hypertension Fluid overload Acute and chronic respiratory failure Sepsis Acute dehydration New onset of congestive heart failure Pneumonia Anemia in chronic kidney disease (CKD) Urinary urgency Urinary tract infection Urinary hesitancy Tubular adenoma of colon Smoker Seborrheic keratoses SND (sensorineural deafness) Right BKA infection Peripheral vascular disease WENDY (obstructive sleep apnea) Microalbuminuria Lung nodule seen on imaging study Lightheadedness Latent tuberculosis LVH (left ventricular hypertrophy) Abnormal PFTs Hyponatremia Hypertensive retinopathy of both eyes Hyperkalemia Hepatitis C Hearing loss of both ears Erectile dysfunction Cataract CKD (chronic kidney disease) Bladder wall thickening BPH (benign prostatic hyperplasia) Anticoagulated Anemia Peripheral neuropathy Diabetes mellitus, type II CVA (cerebral vascular accident) Adrenal nodule Kidney cysts Surgical History Hx of right BKA Family History Brother Diabetes Mother Diabetes Father Diabetes Social History Household Members: Spouse Housing: Apartment Do you presently have visiting nurse or other home services: Yes Alcohol intake: never Patient Tobacco Use Status: Never used Tobacco service: No Review of Systems Const All systems reviewed & are unremarkable except as noted in HPI and below Physical Exam Vital Signs: Last Vital Signs Pulse 95 04/14/25 13:54 BP 160/70 H 04/14/25 13:54 Pulse Ox 97 04/14/25 13:54 Oxygen Delivery Method Room Air 04/14/25 13:54 BMI result Body Mass Index 20.0 Const General: comfortable and no acute distress Orientation/consciousness: patient oriented x3 HEENT Head: Yes normocephalic Mouth: Normal oral and palatal mucosa present Eyes EOM: EOMs intact bilaterally Neck Neck: Yes supple Resp Auscultation: clear to auscultation bilaterally Cardio Jugular venous distension: no JVD Rate: regular rate GI Palpation (GI): Soft to palpation Auscultation: normal bowel sounds General: Yes no CVA tenderness Back/Spine/Pelvis Back: no CVA tenderness Skin General skin exam: no rashes or lesions noted Neuro General: patient oriented x3 and moves all extremities Results Reviewed Nephrology Results: Hgb, (14.0-18.0) 8.7 g/dl L 04/06/25 WBC, (4.8-10.8) 8.5 X10*3/uL 04/06/25 Plt Count, (160-400) 228 X10*3/uL 04/06/25 Sodium, (135-145) 135 mmol/L 04/06/25 Potassium, (3.3-5.1) 4.2 mmol/L 04/06/25 Chloride, (96-108) 106 mmol/L 04/06/25 Carbon Dioxide, (22-29) 18 mmol/L L 04/06/25 BUN, (9-16) 58 mg/dL H 04/06/25 Creatinine, (0.5-1.4) 7.23 mg/dL H* 04/06/25 Calcium, (8.4-10.2) 8.1 mg/dL L 04/06/25 Phosphorus, (2.7-4.5) 4.9 mg/dL H 04/05/25 Renal US 02/20/25 Assessment & Plan Assessment & Plan (1) Acute kidney injury superimposed on CKD: Code(s): N17.9 - Acute kidney failure, unspecified; N18.9 - Chronic kidney disease, unspecified Category: Medical (2) Secondary hyperparathyroidism (of renal origin): Code(s): N25.81 - Secondary hyperparathyroidism of renal origin Category: Medical (3) Vitamin D deficiency: Code(s): E55.9 - Vitamin D deficiency, unspecified Category: Medical (4) Hypertension: Code(s): I10 - Essential (primary) hypertension Category: Medical Qualifiers: Hypertension type: renovascular hypertension Qualified Code(s): I15.0 - Renovascular hypertension Plan Mr Hinson has advanced chronic kidney disease from diabetes, hypertension as well as vascular disease. His renal disease has been progressive but recently developed UMAIR on CKD due to ATN with a component of renal disease progression. He is aware that he needs to go on dialysis when GFR gets close to 10 mL/minute. His blood pressure is at goal. His volume status is optimal. He is tolerating his current medications. He should remain on low potassium diet. I shall initiate him on activated vitamin-D after replacing vitamin-D. I shall arrange to have a dialysis access put in , when his GFR is consistently under 20 mL/minute after resolution of his recent UMAIR. Currently he does not have any uremic symptoms. I plan to administer Procrit at next visit if his Hb is less than 10 Gm/dL. He is also closely followed up by [facility] vascular service. Further management is pending evolving data. All his questions were answered. Follow-up appointment given Orders: Orders Electrolytes 3 Weeks N17.9 - Acute kidney failure, unspecified, N18.9 - Chronic kidney disease, unspecified Blood Urea Nitrogen 3 Weeks N17.9 - Acute kidney failure, unspecified, N18.9 - Chronic kidney disease, unspecified Ferritin 3 Weeks N17.9 - Acute kidney failure, unspecified, N18.9 - Chronic kidney disease, unspecified IRON PROFILE 3 Weeks N17.9 - Acute kidney failure, unspecified, N18.9 - Chronic kidney disease, unspecified Complete Blood Count Auto Diff 3 Weeks N17.9 - Acute kidney failure, unspecified, N18.9 - Chronic kidney disease, unspecified Creatinine 3 Weeks N17.9 - Acute kidney failure, unspecified, N18.9 - Chronic kidney disease, unspecified Coding Level of Care Code Est Pt Level 4 (49567) Diagnoses Acute kidney injury superimposed on CKD N17.9; N18.9 Secondary hyperparathyroidism (of renal origin) N25.81 Vitamin D deficiency E55.9 Renovascular hypertension I15.0 Hypertension type: renovascular hypertension
[2025-04-14 13:54] VITALS: BP 160/70; PULSE 95; O2SAT 97
== END 2025-04-14 14:28 | disposition home or self-care (01) ==
PROVIDERS: PCP Internal Medicine; Visit Provider Internal Medicine Nephrology
DX: N17.9 Acute kidney failure, unspecified (principal); N18.9 Chronic kidney disease, unspecified; N25.81 Secondary hyperparathyroidism of renal origin; E55.9 Vitamin D deficiency, unspecified; I15.0 Renovascular hypertension
CPT/HCPCS: 99214

== ENCOUNTER → 2025-04-14 13:47 | Outpatient (BNVA) | payer OTHER, SELFPAY | PROVIDERS: PCP Internal Medicine; Visit Provider Internal Medicine Nephrology | DX: N25.81 Secondary hyperparathyroidism of renal origin (principal); N17.9 Acute kidney failure, unspecified; N18.9 Chronic kidney disease, unspecified; E55.9 Vitamin D deficiency, unspecified | CPT/HCPCS: 99212 ==

== ENCOUNTER 2025-04-17 08:25 | Outpatient (REF) | payer OTHER, SELFPAY ==
--- OUTSIDE RECORDS SUMMARY | 2025-04-17 08:30 | XMS_ITS | Clinical Summary ---
Author Organization [facility] Address [address] [facility] [address] [place] [address] Phone Care Team Providers Care C 40A Crew Chief Name Role Phone Michelle Long MD Primary Care Provider [phone] Allergies Active Allergy Reactions Criticality Noted Date [...] Telephone [facility] [address] [place] [address] Sydney Rosales from Last 3 Months Family [...] 49 Years) Discontinued 07/01/2010 Insurance [address] [place] [id number] [facility] ([id number]) MAHESH MACIAS [phone] [facility] Dual SNP ([id number]) Care Teams C 40A Crew Chief Relationship Specialty Start Date End Date Michelle Long MD [address] [place], [place] PCP - General Internal Medicine 10/06/23
--- OUTSIDE RECORDS SUMMARY | 2025-04-17 08:30 | XMS_ITS | Encounter Summary ---
Author Organization [facility] Address [address] [place] [address] Care Team Providers Care Rib Trim Separator Name Role Phone Travis Au MD Primary Care Provider [phone] Encounter Details Date Type Department Care Team (Latest Contact Info) Description 11/01/2024 Lab Requisition [facility] - Main Lab [address] [place] [address] Brandon Mckeon MD [address] [place] [address] Type 2 diabetes mellitus without [...] CHEMISTRY METHOD 11/02/2024 12:[address] [facility] Potassium 5.1 3.5 - 5.5 mmol/L LAB CHEMISTRY METHOD 11/02/2024 12:37 PM [facility] Chloride 107 96 - 110 mmol/L LAB CHEMISTRY METHOD 11/02/2024 12:37 PM [facility] CO2 21 21 - 32 mmol/L LAB CHEMISTRY METHOD 11/02/2024 12:37 PM [facility] Anion Gap 6 3 - 11 LAB CHEMISTRY METHOD 11/02/2024 12:37 PM [facility] Glucose 93 70 - 100 mg/dL LAB CHEMISTRY METHOD 11/02/2024 12:37 PM [facility] BUN 54(H) 5 - 25 mg/dL LAB CHEMISTRY METHOD 11/02/2024 12:37 PM [facility] Creatinine 3.63(H) 0.70 - 1.30 mg/dL LAB CHEMISTRY METHOD 11/02/2024 12:37 PM [facility] eGFR 18(L) >=60 mL/min/1. 73m2 LAB CHEMISTRY METHOD 11/02/2024 12:37 PM [facility] Comment:Calculation based on the Chronic Kidney Disease Epidemiology Collaboration (CKD-EPI) equation refit without adjustment for race. BUN/Creatinine Ratio 14.9 LAB CHEMISTRY METHOD 11/02/2024 12:37 PM [facility] Calcium 8.5 8.5 - 10.5 mg/dL LAB CHEMISTRY METHOD 11/02/2024 12:37 PM [facility] Blood Venous blood specimen / Unknown Venipuncture / Unknown 11/02/2024 7:04 AM EST 11/02/2024 11:13 AM EST us Brandon Mckeon MD LAB BLOOD ORDERABLES Final Resu lt [facility] [address] [place] [address], [place] [phone] * (ABNORMAL) Complete blood count (11/02/2024 7:04 AM EST) [facility] WBC 8.5 4.8 - 10.8 K/mcL LAB HEMETOLOGY METHOD 11/02/2024 12:23 PM [facility] RBC 3.10(L) 4.50 - 5.50 M/mcL LAB HEMETOLOGY METHOD 11/02/2024 12:23 PM [facility] Hemoglobin 8.8(L) 13.5 - 17.5 g/dL LAB HEMETOLOGY METHOD 11/02/2024 12:23 PM [facility] Hematocrit 28.2(L) 42.0 - 54.0 % LAB HEMETOLOGY METHOD 11/02/2024 12:23 PM [facility] MCV 91.9 79.0 - 98.0 FL LAB HEMETOLOGY METHOD 11/02/2024 12:23 PM [facility] MCH 28.7 27.0 - 32.0 pcg LAB HEMETOLOGY METHOD 11/02/2024 12:23 PM [facility] MCHC 31.2(L) 32.0 - 37.0 g/dL LAB HEMETOLOGY METHOD 11/02/2024 12:23 PM [facility] RDW 13.6 11.0 - 15.0 % LAB HEMETOLOGY METHOD 11/02/2024 12:23 PM [facility] Platelets 382 130 - 400 K/mcL LAB HEMETOLOGY METHOD 11/02/2024 12:23 PM [facility] MPV 10.3 7.0 - 11.0 FL LAB HEMETOLOGY METHOD 11/02/2024 12:23 PM [facility] NRBC 0.0 <1.0 % LAB HEMETOLOGY METHOD 11/02/2024 12:23 PM [facility] NRBC Absolute 0.00 <0.10 K/mcL LAB HEMETOLOGY METHOD 11/02/2024 12:[address] [facility] Blood Venous blood specimen / Unknown Venipuncture / Unknown 11/02/2024 7:04 AM EST 11/02/2024 11:13 AM EST us Brandon Mckeon MD LAB BLOOD ORDERABLES Final Resu lt [facility] [address] [place] [address], documented in this encounter Visit Diagnoses Diagnosis Type 2 diabetes mellitus without complications (CMS/HCC V24, CMS/HCC V28) documented in this encounter Care Teams Rib Trim Separator Relationship Specialty Start Date End Date Travis Au MD [address] [place] [address], [id number] PCP - General Family Medicine 08/22/24 documented as of this encounter
--- OUTSIDE RECORDS SUMMARY | 2025-04-17 08:31 | XMS_ITS | Data Portability ---
Author Organization [facility], Main Office Address [address] [facility] [place] [address] Care Team Providers Care Collection Systems Worker Name Role Phone CANDIS BECK - 2ND FLOOR OTHER KENIA BUITRAGO Primary Care Provider [phone] Assessment Encounter Date Assessment Date Assessment LastModified by Organization Details LastModified Time 09/29/2024 09/29/2024 Spent 30 reviewing records, seeing pt, consulting with staff and documenting [email or web address] Not available 09/29/2024 15:04:55 11/11/2024 11/11/2024 Greater than 30 minutes of assessment, education, applying dural mechanic, discharge planning and documentation today. Not available [...] Organization Details Recorded Time Peripheral vascular disease 411656675 Active 2023 Oksana Lennon NP [address], [place], [address], [facility] [employer] 4 17:52:49 Adult failure to thrive syndrome 472008989 Active 2023 Oksana Lennon NP [address], [address], [place], [address], [facility] [employer] 4 17:53:00 Type 2 diabetes mellitus 79353060 Active 2023 Oksana Lennon NP [address] , [address], [place], [address], [employer] 4 17:53:10 Hypertensive disorder 01255732 Active 2023 Oksana Lennon NP [address], [address], [place], [address], [facility] 4 17:53:15 Benign prostatic hyperplasia 395433923 Active 2023 Oksana Lennon NP [address], [address], [place], [address], [facility] 4 17:53:22 Hyperkalemia 29481572 Active 2023 Oksana Lennon NP [address] [facility], [address], [place], [address], [facility] 4 17:53:30 Chronic kidney disease stage 4 117852969 Active 2023 Oksana Lennon NP [address] [facility], [address], [place], [address], [facility] 4 17:54:21 Hyperlipidemia 02333643 Active 2023 Oksana Lennon NP [address] [facility], [address], [place], [address], [facility] 4 18:13:13 Smoker 73388893 Active 2023 Oksana Lennon NP [address] [facility], [address], [place], [address], [employer] 4 18:15:45 Problem Notes None recorded. Medical Equipment None Reported. Allergies Allergen ID Allergen Name Allergen Category Reaction Reaction Severity Criticality Documentation Date Start Date Code Code System Note Provider Name and Address Organization Details Recorded Time 19721 morphine medicatio n itching Not available low 08/22/2024 7052 RxNorm Janice Mitchell MD [address], [address], [place], [address], [facility] 4 20:23:08 79114 bupropion Not available confusion hallucina tions Not available Not available Not available 08/22/2024 50609 RxNorm tremo rs, aggre ssive , loss of appet ite Janice Mitchell MD [address] [facility], [address], [place], [address] , [facility] 4 20:23:00 Vitals Date Recorded Body height Body weight Body mass index (BMI) Heart rate Respiratory rate Body temperature Oxygen saturation Oxygen saturation in Arterial blood by Pulse oximetry Systolic And Diastolic Provider Name and Address Organization Details Last Updated DateTime 5 179.83 cm 35307.8 1 g 25.5 kg/m2 62 /min 16 /min 98.2 [degF] 96 % 96 % 146/74 mm[Hg] Oksana Lennon NP [address] [facility] [address], [place], [address], [facility] 5 10:26:07 Date Recorded Body height Body weight Body mass index (BMI) Heart rate Respiratory rate Body temperature Oxygen saturation Oxygen saturation in Arterial blood by Pulse oximetry Systolic And Diastolic Provider Name and Address Organization Details Last Updated DateTime 5 179.83 cm 04880.8 1 g 25.5 kg/m2 68 /min 18 /min 97.2 [degF] 96 % 96 % 158/65 mm[Hg] Oksana Lennon NP [address] [place] [address], [facility] [address], [place], [address], [facility] 5 16:59:12 Date Recorded Body height Body mass index (BMI) Body weight Heart rate Respiratory rate Body temperature Oxygen saturation Oxygen saturation in Arterial blood by Pulse oximetry Systolic And Diastolic Provider Name and Address Organization Details Last Updated DateTime 5 179.83 cm 24.1 kg/m2 59445.8 9 g 71 /min 19 /min 97.9 [degF] 97 % 97 % 162/81 mm[Hg] Oksana Lennon NP [address] [place] [address], [facility] [address], [place], [address], [facility] 5 08:22:41 Date Recorded Body height Heart rate Respiratory rate Body temperature Oxygen saturation Oxygen saturation in Arterial blood by Pulse oximetry Systolic And Diastolic Provider Name and Address Organization Details Last Updated DateTime 4 179.83 cm 70 /min 18 /min 98 [degF] 98 % 98 % 132/75 mm[Hg] ISABEL SAUNDERS NP [address] [facility], [address], [place], [address], [facility] 4 15:05:47 Date Recorded Body height Body mass index (BMI) Body weight Heart rate Respiratory rate Body temperature Oxygen saturation Oxygen saturation in Arterial blood by Pulse oximetry Systolic And Diastolic Provider Name and Address Organization Details Last Updated DateTime 4 179.83 cm 28.2 kg/m2 27250.0 7 g 77 /min 18 /min 98 [degF] 98 % 98 % 132/75 mm[Hg] Janice Mitchell MD [address] [facility], [facility] [address], [place], [address], [facility] 4 15:06:09 Social History Question Answer Notes LastModified by Organizat ion Details LastModified Time Tobacco Smoking Status Current Every Day Smoker Oksana Lennon NP [address] [facility], [address], [place], [address], [facility] 08/22/2024 17:36:42 What Is Your Code Status? Full Code Information not available 08/22/2024 Where Do You Live? Apartment Information not available 08/22/2024 Do You Have A Medical Power Of Clearing House Clerk? Yes Has HCP Information not available 08/23/2024 What Was The Date Of Your Most Recent Tobacco Screening? 08/22/2024 Information not available 08/22/2024 Do You Have An Out Of Hospital DNR? Yes [email or web address] Information not available 08/23/2024 What Is Your [...] Recorded Time Tdap 09/04/2023 completed Bri Mccall [facility] 10/04/2024 14:59:23 influenza, unspecified formulation 06/27/2022 completed Brimosse Mccall [facility] 10/04/2024 14:59:38 influenza, unspecified formulation 06/26/2023 completed Bri [facility] 10/04/2024 14:59:46 SARS-COV-2 (COVID-19) vaccine, UNSPECIFIED 10/16/2020 completed Bri [facility] 10/04/2024 15:00:00 SARS-COV-2 (COVID-19) vaccine, UNSPECIFIED 11/06/2020 completed Bri [facility] 10/04/2024 15:00:07 SARS-COV-2 (COVID-19) vaccine, UNSPECIFIED 06/02/2021 completed Bri Cal [facility] 10/04/2024 15:00:15 SARS-COV-2 (COVID-19) vaccine, UNSPECIFIED 06/27/2022 completed Bri Cal [facility] 10/04/2024 15:00:22 SARS-COV-2 (COVID-19) vaccine, UNSPECIFIED 06/26/2023 completed Bri [facility] 10/04/2024 15:00:37 Past Encounters Encounter ID Performer Location Encounter Start Date Encounter Closed Date Diagnosis/Indication Diagnosis SNOMED-CT Code Diagnosis ICD10 Code Diagnosis Note [id number] Oksana Lennon NP [address] [address] 08/22/2024 14:49:44 08/23/2024 10:31:07 Adult failure to thrive syndrome 888415050 R62.7 supportive carept /ot eval and treat for rom, mobility, strengthen ing, gait, balancemon itor for need to adjust careplan Hypertensive disorder 38 709218 I10 amlodipine 10 mg po qdmetoprol ol xl 100 mg po qdhydralaz ine 50 tidmonitor bp and need to adjust Hyperkalemia 60763888 E8 7.5 renal diet, low potassiuml okelma 10 g qdsodium bicarb 650 mg po bidcbc and bmp weekly x 3 weeks Chronic ki dney disease stage 4 273559847 N18.4 renal diet, low potassiumw as educated in hospital about diet, cont here with dieticainb aseline 2.5-3lokel ma 10 g qdsodium bicarb 650 mg po bidfu with nephrology Dr Perez ? Dr Mc 2 weeks Peripheral vascular disease 674346660 I73.9 with BKA Right and [address] and severe vascuopath yxarelto 2.5 mg po bidoxycodo ne 5 mg po q 8 hours prn paintyl prnPT/OT eval and treatfu plan:[facility] [facility] 12/3 3pm and 330 pm and 09/08 1:30 pmwill leave open to air for nowmonitor for s/s of infection Type 2 kishor betes mellitus 78956108 E11.21 farxiga 10 mg po qdlispro tid ac SSImonitor BS and adjust as needed Benign pro static hyperplasia 302096395 N40.0 tamsulosin 0.4 mg po dailyfinas teride 5 mg po qdmonitor Hyperlipidemia 38817047 E78.5 atorvastat in 10 mg po qdaspirin 81 mg po qdmonitor Smoker 90330160 F17.200 pt is chronic smokereduc ated 3-10 minutes and refuses NRT or to quitplan is to continue smokingmon itor for readiness to quit with chronic disease [id number] Janice Mitchell MD [address] [address] 08/23/2024 19:50:37 08/29/2024 13:25:12 Adult failure to thrive syndrome 833000584 R62.7 PT/OT as above.Astrid tor mood and po intake.Psy ch consult prn Hypertensive disorder 38 991083 I10 Some borderline SBPs since here, but diastolics all low normal or low.No change in meds for nowContinu e amlodipine 10 mg qd, metoprolol succinate 100 mg qd, and hydralazin e 50 mg TID.Monito r BP and labs Hyperkalemia 80995233 E8 7.5 In good control on current regimen.Co ntinue renal diet, Lokelma 10 g qd and sodium bicarb 650 mg BID.Monito r labs. Chronic ki dney disease stage 4 481039360 N18.4 At baseline.C ontinue to avoid nephrotoxi c meds as able.Monit or labs.Renal f/u as planned. Peripheral vascular disease 389656211 I73.89 Z89.511 Recovering well from BKA on [...] this week. Type 2 kishor betes mellitus 84048165 E11.21 Sugars in good control since here.Last HgA1C was 7.4 in 03/2024, and 6.4 on 08/22/24.C ontinue Farxiga 10 mg qd and SSI.Monito r fingerstic ks TID and HgA1C q 3 months. Benign pro static hyperplasia 149329001 N40.0 No current sxs.Contin ue tamsulosin 0.4 mg qd and finasterid e 5 mg qdMonitor urinary function. Hyperlipidemia 93228295 E78.49 Continue atorvastat in 10 mg qd and ASA 81 mg qdMonitor labs as outpt. Smoker 92546280 F17.213 Earlier told someone he was jonesing for a cigarette , but tells me he is considerin g quitting.N ot interested in NRT, says he has had bad rxns.Sole nue to encourage cessation. [id number] Oksana Lennon NP [address] [address] 09/08/2024 12:24:42 09/12/2024 13:04:51 Peripheral vascular disease 615102986 I73.89 Z89.511 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, but having trouble with amp emotionall y and trouble caring for himself.co ntPT/OT for strengthen ing, balance, gait training, safety and function.a [facility] ontinue fall precaution s.Monitor for safety.Con tinueXarel to 2.5 mg BID for DVT prophylaxi s.oxycodon e 5 mg q 8 hrs prnAPAP 650 mg q 4 hrs prn.F/U with vascular as planned.Mo nitor incision, healed in today09/08 rehan ordered and faxed to [facility] with appt 09/15fu in spring for further testing of left leg Adult fail ure to thrive syndrome 579132664 R62.7 PT/OT as above.Astrid tor mood and po intake.Psy ch consult prn Hypertensive disorder 38 056072 I10 bp stableCont inueamlodi pine 10 mg qdmetoprol ol succinate 100 mg qd,hydrala zine 50 mg TID.Monito r BP and labs Hyperkalemia 30212461 E8 7.5 In good control on current regimen.Co ntinue renal diet (low k)Lokelma 10 g qdsodium bicarb 650 mg BID.Monito r labs. not done this week, will reorder Chronic ki dney disease stage 4 622846709 N18.4 At baseline.C ontinue to avoid nephrotoxi c meds as able.monit or bmp for increased kcont sodium bicarbonat e bidMonitor labs.Renal f/u as planned. Type 2 kishor betes mellitus 83144579 E11.21 BS stableLast HgA1C was 7.4 in 03/2024, and 6.4 on 08/22/24.C ontinueFar xiga 10 mg qd and SSI.Monito r fingerstic ks TID and HgA1C q 3 months. Benign pro static hyperplasia 172636275 N40.0 No current sxs.Contin uetamsulos in 0.4 mg qd and finasterid e 5 mg qdMonitor urinary function. Hyperlipidemia 91054596 E78.49 Continueat orvastatin 10 mg qd and ASA 81 mg qdMonitor labs as outpt. Smoker 52824111 F17.213 continues to smokeNot interested in NRT, says he has had bad rxns.educsilvestre tate on smoking cessationC ontinue to encourage cessation. [id number] Oksana Lennon NP [facility] [address] 09/14/2024 14:33:03 09/16/2024 14:16:40 Peripheral vascular disease 083825506 I73.89 Z89.511 Recovering well from BKA on [...] prn Adult fail ure to thrive syndrome 449767574 R62.7 Monitor mood and intakePsyc h consult prn Hypertensive disorder 38 269092 I10 bp stable hereContin ueamlodipi ne 10 mg qdmetoprol ol succinate 100 mg qd,hydrala zine 50 mg TID.Monito r BP and labs outpt with pcplabs ordered but not done, will attempt tomorrow again Hyperkalemia 60887823 E8 7.5 In good control on current regimen.Co ntinue renal diet (low k)Lokelma 10 g qdsodium bicarb 650 mg BID.Monito r labs. not done this week, will reorder for ed am again before dc(unclear why labs aren't done, question difficult stick? )fu with pcp Chronic ki dney disease stage 4 071400258 N18.4 At baseline.C ontinue to avoid nephrotoxi c meds as able.conts odium bicarbonat e bidMonitor labs outpt with pcpRenal f/u as planned. Type 2 kishor bettorres mellitus 63618978 E11.21 BS stableLast HgA1C was 7.4 in 03/2024, and 6.4 on 08/22/24.C ontinueFar xiga 10 mg qd and SSI.Monito r fingerstic ks TID and HgA1C q 3 months Benign pro static hyperplasia 475777048 N40.0 No current sxs.Contin uetamsulos in 0.4 mg qd and finasterid e 5 mg qdMonitor urinary function Hyperlipidemia 83085848 E78.49 Continueat orvastatin 10 mg qd and ASA 81 mg qdMonitor labs with pcp prn Smoker 16232726 F17.213 continues to smokeNot interested in NRT, says he has had bad rxns.educsilvestre tate on smoking cessationC ontinue to encourage cessation [id number] Oksana Lennon NP [address] [address] 09/21/2024 13:09:13 09/22/2024 12:24:03 Peripheral vascular disease 263829157 I73.89 Z89.511 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, but having trouble with amp emotionall y and trouble caring for himself.ov erall doing much better and healing in, incision closedCont inue fall precaution s.Monitor for safety.Con tinueXarel to 2.5 mg BID for DVT prophylaxi s.APAP 650 mg q 4 hrs prn.has dural mechanic and educated on need to use it so he can get prothetic soon.will fu with bell prothetics fu in spring for further testing of left leg with vascular outpt and prn Adult fail ure to thrive syndrome 124763974 R62.7 Monitor mood and intakePsyc h consult prn Hypertensive disorder 38 162012 I10 bp stable 118/64Cont inueamlodi pine 10 mg qdmetoprol ol succinate 100 mg qd,hydrala zine 50 mg TID.Monito r BP and labs outpt with pcp Hyperkalemia 09418126 E8 7.5 In good control on current regimen.Co ntinue renal diet (low k)Lokelma 10 g qdsodium bicarb 650 mg BID.Monito r labs.fu with renal Chronic ki dney disease stage 4 819580410 N18.4 At baseline.C ontinue to avoid nephrotoxi c meds as able.conts odium bicarbonat e bidRenal f/u as planned. Type 2 kishor betes mellitus 02969222 E11.21 BS stableHgA1 C was 7.4 in 03/2024, and 6.4 on 08/22/24 improvedCo ntinueFarx iga 10 mg qd and SSI.Monito r fingerstic ks TID and HgA1C q 3 months Benign pro static hyperplasia 619143260 N40.0 No current sxs.Contin uetamsulos in 0.4 mg qd and finasterid e 5 mg qdMonitor urinary function [id number] Oksana Lennon, TANYA [facility] [address] [address] 09/22/2024 12:31:57 09/26/2024 12:28:42 Peripheral vascular disease 025845556 I73.89 Z89.511 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, but having trouble with amp emotionall y and trouble caring for himself.ov erall doing much better and healing in, incision closedCont inue fall precaution s.Monitor for safety.Con tinueXarel to 2.5 mg BID for DVT prophylaxi s.APAP 650 mg q 4 hrs prn.has dural mechanic and educated on need to use it so he can get prothetic soon.will fu with bell prosthetic sfu in spring for further testing of left leg with vascular outpt and prn Adult fail ure to thrive syndrome 851715901 R62.7 Monitor mood and intakePsyc h consult prn Hypertensive disorder 38 026526 I10 stableCont inueamlodi pine 10 mg qdmetoprol ol succinate 100 mg qd,hydrala zine 50 mg TID.Monito r BP and labs outpt with pcp Hyperkalemia 88243498 E8 7.5 In good control on current regimen.Co ntinue renal diet (low k)Lokelma 10 g qdsodium bicarb 650 mg BID.Monito r labs.fu with renalfu labs cbc and bmp 09/26 Chronic ki dney disease stage 4 568838462 N18.4 At baseline.C ontinue to avoid nephrotoxi c meds as able.conts odium bicarbonat e bidRenal f/u as planned. Type 2 kishor betes mellitus 98204815 E11.21 BS stableHgA1 C was 7.4 in 03/2024, and 6.4 on 08/22/24 improvedCo ntinueFarx iga 10 mg qd and SSI.Monito r fingerstic ks TID and HgA1C q 3 months Benign pro static hyperplasia 590215692 N40.0 No current sxs.Contin uetamsulos in 0.4 mg qd and finasterid e 5 mg qdMonitor urinary function Furuncle of buttock 1243 0003 L02.32 large abcess on posterior right upper buttock likely [id number] /19start cephalexin 500 mg po q 8 hours (will decrease from q6 hr dosing due to poor renal fx)x 7 days with probioticn s wash, pat dry, and apply foam dressing to areamonito r for s/s of infectionc bc and bmp on 09/26cons ider wound consult Angioedema of lip 259080 005 T78.3XXA pt with angioedema to only [...] distress, diff swallowing , or increased swelling [id number] [facility] [address] 09/23/2024 08:41:31 09/26/2024 14:26:31 Angioedema of lip 029719723 T78.3XXA pt with angioedema to only the [...] medication s if reoccurs Peripheral vascular disease 798721792 I73.89 Z89.511 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, but having trouble with amp emotionall y and trouble caring for himself.ov erall doing much better and healing in, incision closedCont inue fall precaution s.Monitor for safety.Con tinueXarel to 2.5 mg BID for DVT prophylaxi s.APAP 650 mg q 4 hrs prn.has dural mechanic and educated on need to use it so he can get prothetic soon.will fu with bell prosthetic sfu in spring for further testing of left leg with vascular outpt and prn Adult fail ure to thrive syndrome 563337033 R62.7 Monitor mood and intakePsyc h consult prn Hypertensive disorder 38 025110 I10 stableCont inueamlodi pine 10 mg qdmetoprol ol succinate 100 mg qd,hydrala zine 50 mg TID.Monito r BP and labs outpt with pcp Hyperkalemia 88352173 E8 7.5 In good control on current regimen.Co ntinue renal diet (low k)Lokelma 10 g qdsodium bicarb 650 mg BID.Monito r labs.fu with renalfu labs cbc and bmp 09/26 Chronic ki dney disease stage 4 513084868 N18.4 At baseline.C ontinue to avoid nephrotoxi c meds as able.conts odium bicarbonat e bidRenal f/u as planned. Type 2 kishor betes mellitus 50169766 E11.21 BS stableHgA1 C was 7.4 in 03/2024, and 6.4 on 08/22/24 improvedCo ntinueFarx iga 10 mg qd and SSI.Monito r fingerstic ks TID and HgA1C q 3 months Benign pro static hyperplasia 569111226 N40.0 No current sxs.Contin uetamsulos in 0.4 mg qd and finasterid e 5 mg qdMonitor urinary function Carbuncle of buttock 762 89051 L02.33 large golf ball size abcess on [...] to assess renal func and for infection [id number] Janice Mitchell MD [address] [address] 09/26/2024 19:01:26 09/27/2024 08:53:46 Carbuncle of buttock 07881849 L02.33 Improving. Continue cephalexin 500 mg q 8 hrs until 09/29 with probiotic BID.Contin ue wound care as ordered.To be seen by wound care in AM before d/c.F/U with PCP as outpt. Angioedema of lip 414166 005 T78.3XXA ResolvedFi brandon prednisone taper.Astrid tor for recurrence . Peripheral vascular disease 477844390 I73.89 Z89.511 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.Cont inue Xarelto 2.5 mg BID for DVT prophylaxi s (not sure how long he needs to be on this).Cont inue APAP 650 mg q 4 hrs prn.No longer needing Oxy.Contin ue dural mechanic and f/u with prosthetis t as planned.F/ U with vascular as planned. Adult fail ure to thrive syndrome 449399138 R62.7 Much improved.F /U with PCP as outpt. Hypertensive disorder 38 987629 I10 In good control.Co ntinue amlodipine 10 mg qd, metoprolol succinate 100 mg qd, and hydralazin e 50 mg TID.F/U with PCP as outpt. Hyperkalemia 66745041 E8 7.5 Remains WNL, but sl. higher than 09/15, likely due to UMAIR.Contin ue renal diet (low k)Continue NaHCO3 as above and Lokelma 10 gms qdWill order repeat labs for 09/29 with [facility]. Chronic ki dney disease stage 4 612409483 N18.4 With sig worsening today compared to 09/15Enc raged pt to drink more fluids.Con tinue to avoid nephrotoxi c meds as able.Sole nue sodium bicarbonat e 650 mg BID.Renal f/u as planned. Type 2 kishor betes mellitus 06920435 E11.21 BS mostly in ood control since here with occ high readingHgA 1C was 7.4 in 03/2024, and 6.4 on 08/22/24 improvedCo ntinue Farxiga 10 mg qd and SSI.F/U with PCP as outpt. Benign pro static hyperplasia 058448113 N40.0 No sxs. since here.Sole nue tamsulosin 0.4 mg qd and finasterid e 5 mg qdF/U with PCP as outpt. Hyperlipidemia 15702246 E78.49 Continue atorvastat in 10 mg qd and ASA 81 mg qdMonitor labs as outpt. Smoker 01143998 F17.213 Has been smoking since here.Refus ed NRT.Contin ue to encourage cessation. [id number] ISABEL SAUNDERS, TANYA [address] [address] 09/29/2024 15:04:27 09/30/2024 12:02:02 Chronic kidney disease stage 4 972557663 N18.4 With sig worsening 09/26 compared to 09/15Enc rage fluids.Con tinue to avoid nephrotoxi c meds as able.Follo w up with Nephrology as sched.Cont inue sodium bicarbonat e 650 mg BID.CMP in am Hyperkalemia 07297146 E8 7.5 Remains WNL, but sl. higher than 09/15, likely due to UMAIR.Contin ue renal diet (low k)Continue NaHCO3 as above and Lokelma 10 gms qdWill order repeat labs for 09/30 Peripheral vascular disease 177013906 I73.89 Z89.511 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.Cont inue Xarelto 2.5 mg BID for DVT prophylaxi s (not sure how long he needs to be on this).Cont inue APAP 650 mg q 4 hrs prn.No longer needing Oxy.Contin ue dural mechanic and f/u with prosthetis t as planned.F/ U with vascular as planned. Carbuncle of buttock 762 88416 L02.33 Improving. Continue cephalexin 500 mg q 8 hrs until complete, as well as probiotic BID.Contin ue wound care as ordered.To be seen by wound care in AM before d/c.F/U with PCP as outpt. Angioedema of lip 956937 005 T78.3XXA ResolvedFi brandon prednisone taper.Astrid tor for recurrence . Adult fail ure to thrive syndrome 613833651 R62.7 Much improved.F /U with PCP as outpt. Hypertensive disorder 38 210825 I10 In good control.Co ntinue amlodipine 10 mg qd, metoprolol succinate 100 mg qd, and hydralazin e 50 mg TID.F/U with PCP as outpt. Type 2 kishor betes mellitus 27641499 E11.21 BS mostly in good control since here with occ. high readingHgA 1C was 7.4 in 03/2024, and 6.4 on 08/22/24 improvedCo ntinue Farxiga 10 mgBS bid once a week and prnF/U with PCP as outpt. Benign pro static hyperplasia 051656070 N40.0 No sxs. since here.Sole nue tamsulosin 0.4 mg qd and finasterid e 5 mg qdF/U with PCP as outpt. Hyperlipidemia 15593757 E78.49 Continue atorvastat in 10 mg qd and ASA 81 mg qdMonitor labs as outpt. Smoker 42183972 F17.213 Has been smoking since here.Refus ed NRT.Contin ue to encourage cessation. [id number] Janice Mitchell MD [address] [address] 09/30/2024 14:58:21 10/03/2024 12:45:37 Chronic kidney disease stage 4 894643971 N18.4 With sig worsening on 09/26 compared to t was going to drink more fluids at home and he says he did.Contin ue to avoid nephrotoxi c meds as able.Sole nue sodium bicarbonat e 650 mg BID.Renal f/u as planned.La bs were to be rechecked today, but pt refused.Pr omises he will allow lab draw on Wednesday 10/03. Hyperkalemia 12752736 E8 7.5 Remains WNL, but was sl. higher on 09/26 than 09/15, likely due to UMAIR.Contin ue renal diet (low k)Continue NaHCO3 as above and Lokelma 10 gms qdLabs on 10/03 as above. Peripheral vascular disease 325964072 I73.89 Z89.511 Has recovered well from BKA on 07/21.Cont inue Xarelto 2.5 mg BID for DVT prophylaxi s (not sure how long he needs to be on this).Cont inue APAP 650 mg q 4 hrs prn.Contin ue dural mechanic and f/u with prosthetis t as planned.F/ U with vascular as planned. Carbuncle of buttock [id number] L02.33 Improving per pt.Wound care note from 09/27 not scanned in to P[facility] yet.Contin ue cephalexin 500 mg q 8 hrs until 10/02 with probiotic BID.Contin ue wound care as ordered.F/ U with wound care weekly until healed. Angioedema of lip [id number] 005 T78.3XXA ResolvedHa s completed prednisone taper.Atsrid tor for recurrence . Adult fail ure to thrive syndrome [id number] R62.7 Much improved.C ontinue liquid protein 30 mg qd to help with wound healing.En courage healthy eating. Hypertensive disorder 38 786687 I10 Remains in good control.Co ntinue amlodipine 10 mg qd, metoprolol succinate 100 mg qd, and hydralazin e 50 mg TID.Monito r BP and labs. Type 2 kishor betes mellitus [id number] E11.21 Very good since return, all <150.HgA1C was 7.4 in 03/2024, and 6.4 on 08/22/24.C ontinue Farxiga 10 mg qd and SSI.If sugars remain <200 consistent ly can change TID fingerstic ks to qAM. Benign pro static hyperplasia [id number] N40.0 No sxs. since here.Sole nue tamsulosin 0.4 mg qd and finasterid e 5 mg qdMonitor urinary function. Hyperlipidemia 12493849 E78.49 Continue atorvastat in 10 mg qd and ASA 81 mg qdMonitor labs yearly. Smoker [id number] F17.213 Continues to smoke.Cont inues to refuse NRT.Contin ue to encourage cessation. [id number] Oksana Lennon NP [place] [address] [place] [address] 10/13/2024 10:10:33 10/14/2024 10:47:39 Chronic kidney disease stage 4 [id number] N18.4 With sig worsening on 09/26 compared to t was going to drink more fluids at home and he says he did.Contin ueavoid nephrotoxi c meds as able.sodiu m bicarbonat e 650 mg BID.Renal f/u as planned.La bs ordered for bmp and cbc on 10/19 on thu x 2labs as above Hyperkalemia [id number] E8 7.5 Remains WNL, but was sl. higher on 09/26 than 09/15, likely due to UMAIR.Contin uerenal diet (low k)NaHCO3 as aboveLokel ma 10 gms qdLabs on 10/03 as above.bmp and cbc 10/19 ordered Peripheral vascular disease [id number] I73.89 Z89.511 Has recovered well from r BKA on 07/21.plan for prothetic on 10/21 per pt.Continu eXarelto 2.5 mg BID for DVT prophylaxi s (not sure how long he needs to be on this).Cont inue APAP 650 mg q 4 hrs prn.Contin ue dural mechanic and f/u with prosthetis t as planned.F/ U with vascular as planned. Carbuncle of buttock 762 04462 L02.33 Improving per pt.mostly healedCont inuecomple lea cephalexin 500 mg q 8 hrs until 10/02 with probiotic BID.Contin ue wound care as ordered.F/ U with wound care weekly until healed.ratna l order zinc cream to right upper abcess buttock qd until healedmoni tor for s/s of infection Adult fail ure to thrive syndrome [id number] R62.7 Much improved.E ncourage healthy eating. Hypertensive disorder 38 088294 I10 Remains in good control.Co ntinueamlo dipine 10 mg qd, metoprolol succinate 100 mg qd, and hydralazin e 50 mg TID.Monito r BP and labs. Type 2 kishor bettorres mellitus 93973502 E11.21 Very good since return, all <150.HgA1C was 7.4 in 03/2024, and 6.4 on 08/22/24.C ontinue Farxiga 10 mg qd and SSI.If sugars remain <200 consistent ly can change TID fingerstic ks to qAM. Benign pro static hyperplasia 731438007 N40.0 No sxs. since here.Sole nuetamsulo sin 0.4 mg qd and finasterid e 5 mg qdMonitor urinary function. Hyperlipidemia 88008310 E78.49 Continueat orvastatin 10 mg qd and ASA 81 mg qdMonitor labs yearly. Smoker 03636135 F17.213 Continues to smoke.spen t 3-10 min on education and NRT therapy, he is willing to try nicorette gumnicoret te gum 4 mg po q 3 hours prn cravingsCo ntinue to encourage cessation. [id number] Oksana Lennon NP [address] [address] 10/21/2024 09:04:51 10/24/2024 16:33:36 Peripheral vascular disease [id number] I73.89 Z89.511 Has recovered well from r BKA on 07/21.plan for prosthetic on 10/21 per pt.Continu eXarelto 2.5 mg BID for DVT prophylaxi s (not sure how long he needs to be on this).APAP 650 mg q 4 hrs prn.shrink er and f/u with prosthetis t as planned.F/ U with vascular as planned outpt in the spring Chronic dney disease stage 4 [id number] N18.4 With sig worsening on 09/26 compared to t was going to drink more fluids at home and he says he did.Contin ueavoid nephrotoxi c meds as able.sodiu m bicarbonat e 650 mg BID.Renal f/u as planned.la bs as above, and reordered Smoker [id number] F17.213 Continues to smoke.jm rette gum 4 mg po q 3 hours prn cravingsCo ntinue to encourage cessation. Carbuncle of buttock 762 81914 L02.33 resolvedco mpleted cephalexin 500 mg q 8 hrs until 10/02 with probiotic BID..will order zinc cream to right upper abcess buttock qd until healedmoni tor for s/s of infection Hyperkalemia 11006567 E8 7.5 Remains WNL, but was sl. higher on 09/26 than 09/15, likely due to UMAIR.Contin uerenal diet (low k)NaHCO3 as aboveLokel ma 10 gms qdbmp and cbc weekly for one more lab Adult fail ure to thrive syndrome [id number] R62.7 Much improved and seems to be doing better with plan for BKA soonEncour age healthy eating. Hypertensive disorder 38 806581 I10 Remains in good control.Co ntinueamlo dipine 10 mg qdmetoprol ol succinate 100 mg qdhydralaz ine 50 mg TID.Monito r BP and labs. Type 2 kishor betes mellitus 58757605 E11.21 Very good since return, all <150.HgA1C was 7.4 in 03/2024, and 6.4 on 08/22/24.C ontinue Farxiga 10 mg qd and SSI.If sugars remain <200 consistent ly can change TID fingerstic ks to qAM. Benign pro static hyperplasia 140878832 N40.0 No sxs. since here.Sole nuetamsulo sin 0.4 mg qd and finasterid e 5 mg qdMonitor urinary function. Hyperlipidemia 09197172 E78.49 Continueat orvastatin 10 mg qd and ASA 81 mg qdMonitor labs yearly. Angioedema of lip 647824 005 T78.3XXA ResolvedHa s completed prednisone taper.Astrid tor for recurrence . [id number] [facility] [address] [place] [address] 11/11/2024 08:19:31 11/15/2024 13:47:34 Peripheral vascular disease [id number] I73.89 Z89.511 Has recovered well from r BKA on 07/21/24.H e plans to discharge despite prosthetic not fitting well and fu with [facility] on Thursday.He does not want to stay [...] the spring Chronic dney disease stage 4 [id number] N18.4 With CKD at baselineCo ntinueavoi d nephrotoxi c meds as able.sodiu m bicarbonat e 650 mg BID.Renal f/u as planned ouitptfu with pcp outpt and renal outpt Smoker 67365414 F17.213 Continues to smoke.jm rette gum 4 mg po q 3 hours prn cravingsCo ntinue to encourage cessation outpt Carbuncle of buttock 762 03722 L02.33 resolvedco mpleted cephalexin 500 mg q 8 hrs until 10/02 with probiotic BID..will order zinc cream to right upper abcess buttock qd until healedmoni tor for s/s of infection outpt with pcp Hyperkalemia 53666878 E8 7.5 Remains WNLContinu erenal diet (low k)NaHCO3 as aboveLokel ma 10 gms qdlabs outpt with pcp Adult fail ure to thrive syndrome 876578379 R62.7 Much improved and seems to be doing better with plan for BKA soonEncour age healthy eating outpt Hypertensive disorder 38 860352 I10 Remains in good control, bp high this am but has not got his bp meds yet todayConti nueamlodip ine 10 mg qdmetoprol ol succinate 100 mg qdhydralaz ine 50 mg TID.Monito r BP and labs outpt with pcp Type 2 kishor betes mellitus 58795465 E11.21 Very good since return, mostly <150.HgA1C was 7.4 in 03/2024, and 6.4 on 08/22/24.C ontinueFar xiga 10 mg qd and SSI.If sugars remain <200 consistent ly can change TID fingerstic ks to qAM.monito r outpt with pcp outpt Benign pro static hyperplasia 334692491 N40.0 No sxs. since here.Sole nuetamsulo sin 0.4 mg qdfinaster paula 5 mg qdMonitor urinary function outpt with pcp Hyperlipidemia 18004047 E78.49 Continueat orvastatin 10 mg qdASA 81 mg qdMonitor labs with pcp prn Angioedema of lip 760902 005 T78.3XXA Resolvedwa s never on sarita [...] Miles Member ID Guarantor Name 11/11/2024 1 [facility] - DOS ON OR AFTER 2023 - MEDICARE ADVANTAGE [place] & [place] (MEDICARE REPLACEMENT/ADV ANTAGE - PPO) Renato Hinson [id number] Renato Hinson Notes Date Note Type Note Provider Name and Address Organization Details Recorded Time 09/29/2024 text/html Renato is seen today for initial intake. He is a 64 yo man, just discharged from [facility] 09/27. returned him to the facility as [...] had f/u set up with PCP/renal and special procedure technologist.He developed an abscess of his low back/upper [...] and cigarette smoker. ISABEL SAUNDERS NP [address], [address], [place], [address], [facility] - [employer] 09/29/2024 15:14:57 09/30/2024 text/html This is a [...] able to admit him, unclear if to fdc care or continued rehab.He was supposed to [...] HLD, and cigarette smoker. Janice Mitchell MD [address] [place] [address], [address], [place], [address], [facility] [employer] 09/30/2024 16:14:41 10/13/2024 text/html Pt is seen [...] a few times. Oksana Lennon, TANYA [address], [address], [place], [address], [facility] - [employer] 10/13/2024 10:38:23 10/21/2024 text/html Pt is seen [...] resolved with abx. He has received his dural mechanic and site of BKA well healed. His prosthetic should be in this week. He is aware he should stay a few days to make should he has proper training and guidance to use the prosthetic here with therapy and then consider dc home. On exam, he is seen lying in bed in [facility]. He is excited to get his prosthetic this week and get back to his old life. He denies any new concerns. Unclear if weight is accurate at 182 lbs this week which would be down form 198 lbs on admission. Will have another weight done. Denies any vomiting or decreased eating today. Oksana Lennon, TANYA [address], [address], [place], [address], [facility] [employer] 10/21/2024 17:16:46 11/11/2024 text/html Pt is seen [...] resolved with abx. He has received his dural mechanic and site of BKA well healed. He [...] the prosthetic place on Thursday morning. His dural mechanic is applied at this visit and he is aware the dural mechanic is almaraz to wear to keep the swelling down. On exam, He states he is going home with , has walker and cane, and will be just fine . He denies any other complaints or concerns. Lung CTA in NAD. Oksana Lennon NP [address], [address], [place], [address], [facility] [employer] 11/11/2024 08:43:30
[2025-04-17 09:10] LABS: MANUAL DIFF FLAG NO
[2025-04-17 09:50] LABS: Hematocrit 21.6 % (42.0-52.0); Imm Gran Abs Auto 0.08 X10*3/uL (0.00-0.03); Imm Gran Pct Auto 0.9 % (0.0-0.4); Lymphocytes Absolute Auto 1.4 X10*3/uL (1.2-4.9); Mean Corpuscular HGB Conc 31.9 g/dl (31.0-36.0); Mean Corpuscular Hemoglobin 28.2 pg (27.0-33.0); Mean Corpuscular Volume 88.2 fL (80.0-98.0); NRBC Abs Auto 0.000 X10*3/uL (0.0-0.012); NRBC Pct Auto 0.0 /100WBC (0.0-0.2); Platelet Count 261 X10*3/uL (160-400); Red Blood Count 2.45 X10*6/uL (4.60-5.80); White Blood Count 8.9 X10*3/uL (4.8-10.8)
[2025-04-17 09:58] LABS: Hemoglobin 6.9 g/dl (14.0-18.0)
[2025-04-17 10:28] LABS: Anion Gap 18 (12-20); Blood Urea Nitrogen 66 mg/dL (9-16); Carbon Dioxide 13 mmol/L (22-29); Chloride 113 mmol/L (96-108); Estimated Glomerular Filt Rate 7; Potassium 4.9 mmol/L (3.3-5.1); Sodium 139 mmol/L (135-145)
== END 2025-04-17 08:26 | disposition home or self-care (01) ==
LOC: HO.LAB 08:25
PROVIDERS: Visit Provider Internal Medicine Nephrology
DX: E55.9 Vitamin D deficiency, unspecified (principal); N18.4 Chronic kidney disease, stage 4 (severe); D63.1 Anemia in chronic kidney disease; I15.0 Renovascular hypertension; N25.81 Secondary hyperparathyroidism of renal origin; N17.9 Acute kidney failure, unspecified
CPT/HCPCS: 36415; 80051; 82565; 84520; 85025

== ENCOUNTER 2025-04-17 14:25 | Emergency (ER) | payer OTHER, SELFPAY ==
[2025-04-17 14:52] VITALS: BP 138/50; PULSE 93; RESP 16; TEMP 36.3; O2SAT 96; BMI 28.0
--- NOTE | 2025-04-17 14:55 | ED.RECABL ---
HPI - Recheck/Abnormal Lab/Rx General Chief Complaint: Recheck/Abnormal Lab/Rx Stated Complaint: sent in by md for blood transfusion Time Seen by Provider: 04/17/25 18:38 History of Present Illness ED Provider: Osmel Stanton MD HPI narrative: 65-year-old male who is asymptomatic he has a history of chronic kidney disease among other comorbid conditions had outpatient lab work done this morning was called to come in to the ED for evaluation by his Nephrology Dr. For hemoglobin 6.9. Patient has no acute anemic symptoms including specifically no fatigue, dyspnea on exertion, chest pain denies any GI bleeding or dark stool. Related Data Home Medications ?Medication ?Instructions ?Recorded ?Confirmed amlodipine 10 mg tablet 10 mg PO DAILY 12/19/24 03/09/25 aspirin 81 mg chewable tablet 1 tab PO DAILY 12/19/24 03/09/25 atorvastatin 80 mg tablet 80 mg PO DAILY 12/19/24 02/20/25 Held on 03/02/25. Instructions: Resume on 04/07/25. dapagliflozin propanediol 10 mg 10 mg PO DAILY 12/19/24 02/20/25 tablet (Farxiga) Held on 03/02/25. Instructions: Resume on 03/09/25. finasteride 5 mg tablet 5 mg PO DAILY 12/19/24 03/09/25 metoprolol succinate 100 mg 100 mg PO DAILY 12/19/24 03/09/25 tablet,extended release 24 hr sodium zirconium cyclosilicate 10 10 g PO DAILY 12/19/24 03/09/25 gram oral powder packet (Lokelma) tamsulosin 0.4 mg capsule 0.4 mg PO DAILY 12/19/24 03/09/25 umeclidinium 62.5 mcg/actuation 1 inh inhalation DAILY 12/19/24 03/09/25 blister powder for inhalation (Incruse Ellipta) hydralazine 25 mg tablet 50 mg PO TID 12/30/24 03/09/25 rivaroxaban 2.5 mg tablet (Xarelto) 2.5 mg PO BID 12/30/24 02/20/25 Held on 03/02/25. Instructions: Resume on 03/08/25. sodium bicarbonate 650 mg tablet 650 mg PO TID 12/30/24 03/09/25 Previous Rx's ?Medication ?Instructions ?Recorded acetaminophen 325 mg tablet 975 mg (3 x 325 mg) PO Q6H PRN 03/02/25 Pain, Mild 1-3,Fever,Headache #20 tabs alcohol swabs 1 pad topical QIDACHS #100 ea 03/02/25 blood sugar diagnostic (FreeStyle #100 ea 03/02/25 Lite Strips) blood-glucose meter (FreeStyle #1 ea 03/02/25 Lite Meter kit) daptomycin 500 mg intravenous 660 mg IV Q48H #1 ea 03/02/25 solution insulin lispro 100 unit/mL 0 sliding scale dose subcut 03/02/25 subcutaneous pen (Humalog KwikPen QIDACHS #15 mL (U-100) Insulin) lancets 28 gauge (FreeStyle #100 ea 03/02/25 Lancets) oxycodone 5 mg tablet 5 mg PO Q6H PRN Pain, Severe (Pain 03/02/25 Scale 7-10) #15 tabs pen needle, diabetic 32 gauge x #100 ea 03/02/2510/08 Allergies Allergy/AdvReac Type Severity Reaction Status Date / Time morphine Allergy Hallucinati Verified 04/17/25 14:55 ons bupropion AdvReac Hallucinati Verified 04/17/25 14:55 ons [facility] Past Medical History Medical History (Updated 04/17/25 @ 20:31 by Osmel Stanton MD) CKD (chronic kidney disease) stage 4, GFR 15-29 ml/min Hypertension Fluid overload Acute and chronic respiratory failure Sepsis Acute dehydration New onset of congestive heart failure Pneumonia Anemia in chronic kidney disease (CKD) Urinary urgency Urinary tract infection Urinary hesitancy Tubular adenoma of colon Smoker Seborrheic keratoses SND (sensorineural deafness) Right BKA infection Peripheral vascular disease WENDY (obstructive sleep apnea) Microalbuminuria Lung nodule seen on imaging study Lightheadedness Latent tuberculosis LVH (left ventricular hypertrophy) Abnormal PFTs Hyponatremia Hypertensive retinopathy of both eyes Hyperkalemia Hepatitis C Hearing loss of both ears Erectile dysfunction Cataract CKD (chronic kidney disease) Bladder wall thickening BPH (benign prostatic hyperplasia) Anticoagulated Anemia Peripheral neuropathy Diabetes mellitus, type II CVA (cerebral vascular accident) Adrenal nodule Kidney cysts Surgical History Hx of right BKA Family History Family History Brother Diabetes Mother Diabetes Father Diabetes Social History Social History Household Members: Spouse Housing: Apartment Do you presently have visiting nurse or other home services: Yes Alcohol intake: never Patient Tobacco Use Status: Never used Tobacco Advance Directives: No Advance Directives Information Provided: No Do you have a plan to hurt others: No Plan service: No Physical Exam Vital Signs: Vital Signs: Last Vital Signs Temp 98.0 F 04/18/25 00:28 Pulse 95 04/18/25 00:28 Resp 18 04/18/25 00:28 BP 178/79 H 04/18/25 00:28 Pulse Ox 95 04/18/25 00:28 O2 Del Method Room Air 04/18/25 00:28 BMI result Body Mass Index 28.0 Course Course Course Narrative: 04/17/25 1456 MAHESH Holliday This is a Rapid Medical Examination (RME) performed by Elina Dinero PA-C in triage. Full HPI, ROS, assessment and treatment plan per primary provider in the Main ED. Hx: 65 yo M hx of CKD, hypertension, anemia, WENDY hepatitis-C, CVA on AC, DM here for abnormal labs. had routine blood work today, H&H 6.9/21.6. sent here for transfusion. stool as been orange/ red in color. no taras blood or melena. patient feels weak, decreased appetite. Plan: repeat labs, OBS, type and screen Medical Decision Making Medical Decision Making MDM Narrative: Medical Decision Making: Acute on chronic anemia from chronic kidney disease no suggestion of GI bleeding. 6.9 this morning a repeat in the middle was 7.8 but we repeated it again in case this was 6.6. No significant symptoms but I think it is reasonable to transfuse this patient. 1 unit PRBC discharged home he is hemodynamically stable afebrile has no other actionable findings on workup in the ED Preliminary Favored Differential Diagnosis: Acute on chronic anemia probably chronic kidney disease or anemia of chronic disease, no suggestion of blood loss among additional considered etiologies Testing Interpreted Independently: Not Applicable Radiology or Lab testing Results Reviewed: Anemia acute on chronic 6.6 hemoglobin on the final repeat. Consults: Not Applicable Independent Historians/External Chart Reviews: Not Applicable Social Determinants of Health Impacting MDM/Planning: Not Applicable Lab Data 04/17/25 20:03 04/17/25 20:03 Labs: Lab Results 04/17/25 04/17/25 04/17/25 Range/Units 16:48 20:03 20:11 WBC 7.6 8.0 (4.8-10.8) X10*3/uL RBC 2.80 L 2.29 L (4.60-5.80) X10*6/uL Hgb 7.8 L 6.6 L* (14.0-18.0) g/dl Hct 25.1 L 20.0 L* D (42.0-52.0) % MCV 89.6 87.3 (80.0-98.0) fL MCH 27.9 28.8 (27.0-33.0) pg MCHC 31.1 33.0 (31.0-36.0) g/dl RDW 15.8 15.8 (11.0-16.0) % Plt Count 262 255 (160-400) X10*3/uL MPV 9.8 9.5 (9.4-12.4) fL Immature Gran % (Auto) 0.5 H 0.5 H (0.0-0.4) % Neut % (Auto) 75.2 H 71.7 (45-73) % Lymph % (Auto) 13.0 L 14.3 L (20-40) % [place] % (Auto) 7.1 9.1 (2-11) % Eos % (Auto) 3.3 3.7 (0-4) % Baso % (Auto) 0.9 0.7 (0-2) % Lymph # (Auto) 1.0 L 1.2 (1.2-4.9) X10*3/uL [place] # (Auto) 0.5 0.7 (0.1-1.2) X10*3/uL Eos # (Auto) 0.3 0.3 (0.0-0.4) X10*3/uL Baso # (Auto) 0.1 0.1 (0.0-0.2) X10*3/uL Abs Immat Gran (auto) 0.04 H 0.04 H (0.00-0.03) X10*3/uL Absolute Neuts (auto) 5.7 5.8 (2.0-8.3) x10*3/uL Absolute Nucleated RBC 0.000 0.000 (0.0-0.012) X10*3/uL Nucleated RBC % (auto) 0.0 0.0 (0.0-0.2) /100WBC VBG pH 7.34 (7.32-7.43) VBG pCO2 31 mmHg VBG pO2 51 mmHg VBG HCO3 17 L (22-26) mmol/L VBG O2 Saturation TNP VBG Base Excess -7.5 mmol/L Sodium 139 141 (135-145) mmol/L Potassium 4.5 4.5 (3.3-5.1) mmol/L Chloride 110 H 110 H (96-108) mmol/L Carbon Dioxide 17 L 18 L (22-29) mmol/L Anion Gap 17 18 (12-20) BUN 67 H 68 H (9-16) mg/dL Creatinine 8.10 H* 8.42 H* (0.5-1.4) mg/dL Estim Creat Clear Calc 10.0 9.6 Estimated GFR 7 6 Random Glucose 186 H 154 H (60-115) mg/dL Calcium 8.0 L 7.8 L (8.4-10.2) mg/dL Total Bilirubin 0.2 0.2 (0.0-1.0) mg/dL AST 29 31 (5-37) U/L ALT 17 16 (0-40) U/L Alkaline Phosphatase 77 72 (39-117) U/L Total Protein 6.9 6.4 L (6.5-8.0) g/dL Albumin 3.1 L 2.9 L (3.5-5.0) g/dL Blood Type A Negative Antibody Screen NEGATIVE Crossmatch See Detail Procedures Procedure Narrative Procedure Narrative: Ultrasound Guided Peripheral Intravenous Catheter Placement Indication: Intravenous Access Location: Right basilic vein Provider: Ricardo I was approached by nursing staff and informed that multiple unsuccessful attempts had been made to establish IV access in the patient. The patients arm was surveyed with the ultrasound for verification of vessel collapsibility, patency, depth and caliber, as well as identification of nearby structures. The target area was prepped with chlorhexidine. A tourniquet was placed proximally on the extremity. Under real-time ultrasound guidance, an 20 G 2.25 inch AccuCath nontunneled catheter ? was advanced into the target vein. Dark blood was visualized in the flash chamber. The catheter was easily advanced into the vein. The catheter was evacuated of air and flushed with sterile saline. The catheter was secured in place with a tegaderm. The patient tolerated the procedure well and there were no complications. Estimated Blood Loss: 1mL Total Time for Procedure: 5min Images Stored CPT: 74246; 45187 Critical Care Time Critical Care Time Critical Care Time: Yes Total Critical Care Time: 30 Attestation: ED Critical Care: Authorized and Performed by: Osmel Stanton MD Total critical care time: Approximately 30 Due to a high probability of clinically significant, life threatening deterioration, the patient required my highest level of preparedness to intervene emergently and I personally spent this critical care time directly and personally managing the patient. This critical care time included obtaining a history; examining the patient; pulse oximetry; ordering and review of studies; arranging urgent treatment with development of a management plan; evaluation of patient's response to treatment; frequent reassessment; and, discussions with other providers. This critical care time was performed to assess and manage the high probability of imminent, life-threatening deterioration that could result in multi-organ failure. It was exclusive of separately billable procedures and treating other patients and teaching time. Discharge Plan Discharge Clinical Impression: Anemia in CKD (chronic kidney disease) Patient Disposition: Home, Self-Care Instructions: Chronic Kidney Disease (ED), Anemia (ED) Additional Instructions: DISCHARGE DIAGNOSES: Anemia acute on chronic. Transfusion received 1 unit in the ER HISTORY OF PRESENTATION: ?Called in for hemoglobin blood count level 6. 9 EMERGENCY DEPARTMENT COURSE,TESTS, TREATMENTS: While in the ED today you had a hemoglobin of 6.6 on the repeat. You did not report any gastrointestinal bleeding or dark stools you had stable hemodynamics and no other findings DISCHARGE MEDICATIONS: ?[We have made no changes to your regular medication regimen] FOLLOW-UP: ?Call your primary or general physician soon as possible to discuss your symptoms, your ED visit and to discuss follow up plans Call your kidney doctor tomorrow to follow up INSTRUCTIONS ?& RETURN PRECAUTIONS: If any symptoms change first call your primary physician, if it is after-hours your primary doctors office should have a provider non ferrous material handler you can speak with. If the symptoms are severe or very concerning to you then call 911 or return to the ED. If you develop rectal bleeding or other bleeding or significant weakness difficulty breathing chest pain come back for evaluation Osmel Stanton MD Emergency Physician [facility] Prescriptions: No Action acetaminophen 325 mg Tablet 975 mg PO Q6H PRN (Reason: Pain, Mild 1-3,Fever,Headache) Qty: 20 0RF oxycodone 5 mg Tablet 5 mg PO Q6H PRN (Reason: Pain, Severe (Pain Scale 7-10)) Qty: 15 0RF Rx Instructions: Partial Fill upon patient request. daptomycin 500 mg Recon Soln 660 mg IV Q48H Qty: 1 0RF Rx Instructions: end date is 04/07/25 (DME) FreeStyle Lite Strips Strip Qty: 100 0RF Rx Instructions: Test four times a day or as directed. (DME) blood-glucose meter [FreeStyle Lite Meter] Kit Qty: 1 0RF Rx Instructions: As Directed alcohol swabs Pads, Medicated 1 pad TOPICAL QIDACHS Qty: 100 0RF Rx Instructions: Use four times a day or as directed. insulin lispro [Humalog KwikPen Insulin] 100 unit/mL insulin pen 0 sliding scale dose SUBCUT QIDACHS Qty: 15 0RF Rx Instructions: Blood Sugar: <150 - 0 units 151-200 - 2 units 201-250 - 4 units 251-300 - 6 units 301-350 - 8 units >350 - 10 units (DME) pen needle, diabetic 32 gauge x 1/4 needle Qty: 100 0RF Rx Instructions: Use four times a day or as directed. (DME) lancets [FreeStyle Lancets] 28 gauge misc Qty: 100 0RF Rx Instructions: Test four times a day or as directed. Lokelma 10 gram powder in packet 10 g PO DAILY dapagliflozin propanediol [Farxiga] 10 mg tablet 10 mg PO DAILY finasteride 5 mg tablet 5 mg PO DAILY amlodipine 10 mg tablet 10 mg PO DAILY tamsulosin 0.4 mg capsule 0.4 mg PO DAILY metoprolol succinate 100 mg tablet extended release 24 hr 100 mg PO DAILY aspirin 81 mg tablet,chewable 1 tab PO DAILY Incruse Ellipta 62.5 mcg/actuation blister with device 1 inh inhalation DAILY atorvastatin 80 mg tablet 80 mg PO DAILY Xarelto 2.5 mg tablet 2.5 mg PO BID hydralazine 25 mg tablet 50 mg PO TID sodium bicarbonate 650 mg tablet 650 mg PO TID Interventions: ED Discharge Assessment Last Done: 04/18/25 00:28 Discharge Date/Time: 04/18/25 00:28 Print Language: [place]
[2025-04-17 16:53] LABS: MANUAL DIFF FLAG NO
[2025-04-17 17:01] LABS: Hematocrit 25.1 % (42.0-52.0); Hemoglobin 7.8 g/dl (14.0-18.0); Imm Gran Abs Auto 0.04 X10*3/uL (0.00-0.03); Imm Gran Pct Auto 0.5 % (0.0-0.4); Lymphocytes Absolute Auto 1.0 X10*3/uL (1.2-4.9); Mean Corpuscular HGB Conc 31.1 g/dl (31.0-36.0); Mean Corpuscular Hemoglobin 27.9 pg (27.0-33.0); Mean Corpuscular Volume 89.6 fL (80.0-98.0); NRBC Abs Auto 0.000 X10*3/uL (0.0-0.012); NRBC Pct Auto 0.0 /100WBC (0.0-0.2); Platelet Count 262 X10*3/uL (160-400); Red Blood Count 2.80 X10*6/uL (4.60-5.80); White Blood Count 7.6 X10*3/uL (4.8-10.8)
[2025-04-17 17:23] LABS: Alanine Aminotransferase 17 U/L (0-40); Albumin Level 3.1 g/dL (3.5-5.0); Alkaline Phosphatase 77 U/L (39-117); Anion Gap 17 (12-20); Aspartate Amino Transferase 29 U/L (5-37); Blood Urea Nitrogen 67 mg/dL (9-16); Calcium 8.0 mg/dL (8.4-10.2); Carbon Dioxide 17 mmol/L (22-29); Chloride 110 mmol/L (96-108); Creatinine Clr Calc Pharmacy 10.0; Estimated Glomerular Filt Rate 7; Potassium 4.5 mmol/L (3.3-5.1); Sodium 139 mmol/L (135-145); Total Protein 6.9 g/dL (6.5-8.0)
--- OUTSIDE RECORDS SUMMARY | 2025-04-17 18:50 | XMS_ITS | Clinical Summary ---
Author Organization [facility] Address [address] [facility] [address] [place] [address] Phone Care Team Providers Care Supervisor Brine Name Role Phone Michelle Long MD Primary Care Provider [phone] Allergies Active Allergy Reactions Criticality Noted Date [...] Telephone [facility] [address] [place] [address] Sydney Rosales from Last 3 Months Family [...] to 48 Years) Discontinued 07/01/2010 Insurance [address] [place] [id number] [facility] ([id number]) MAHESH MACIAS [id number] [facility] Dual SNP ([id number]) Care Teams Supervisor Brine Relationship Specialty Start Date End Date Michelle Long MD [address] [place], [place] PCP - General Internal Medicine 10/06/23
--- OUTSIDE RECORDS SUMMARY | 2025-04-17 18:50 | XMS_ITS | Encounter Summary ---
Author Organization [facility] Address [address] [place] [address] Care Team Providers Care Bull Fiddle Player Name Role Phone Travis Au MD Primary Care Provider [phone] Encounter Details Date Type Department Care Team (Latest Contact Info) Description 11/01/2024 Lab Requisition [facility] - Main Lab [address] [place] [address] Brandon Mckeon MD [address] [place] [address] Type 2 diabetes mellitus without [...] CHEMISTRY METHOD 11/02/2024 12:37 PM EST [facility] Potassium 5.1 3.5 - 5.5 mmol/L LAB CHEMISTRY METHOD 11/02/2024 12:[address] [facility] Chloride 107 96 - 110 mmol/L LAB CHEMISTRY METHOD 11/02/2024 12:[address] [facility] CO2 21 21 - 32 mmol/L LAB CHEMISTRY METHOD 11/02/2024 12:[address] [facility] Anion Gap 6 3 - 11 LAB CHEMISTRY METHOD 11/02/2024 12:[address] [facility] Glucose 93 70 - 100 mg/dL LAB CHEMISTRY METHOD 11/02/2024 12:[address] [facility] BUN 54(H) 5 - 25 mg/dL LAB CHEMISTRY METHOD 11/02/2024 12:[address] [facility] Creatinine 3.63(H) 0.70 - 1.30 mg/dL LAB CHEMISTRY METHOD 11/02/2024 12:[address] [facility] eGFR 18(L) >=60 mL/min/1. 73m2 LAB CHEMISTRY METHOD 11/02/2024 12:[address] [facility] Comment:Calculation based on the Chronic Kidney Disease Epidemiology Collaboration (CKD-EPI) equation refit without adjustment for race. BUN/Creatinine Ratio 14.9 LAB CHEMISTRY METHOD 11/02/2024 12:[address] [facility] Calcium 8.5 8.5 - 10.5 mg/dL LAB CHEMISTRY METHOD 11/02/2024 12:[address] [facility] Blood Venous blood specimen / Unknown Venipuncture / Unknown 11/02/2024 7:04 AM EST 11/02/2024 11:13 AM EST us Brandon Mckeon MD LAB BLOOD ORDERABLES Final Resu lt [facility] [address] [place] [address], [place] [phone] * (ABNORMAL) Complete blood count (11/02/2024 7:04 AM EST) [facility] WBC 8.5 4.8 - 10.8 K/mcL LAB HEMETOLOGY METHOD 11/02/2024 12:[address] [facility] RBC 3.10(L) 4.50 - 5.50 M/mcL LAB HEMETOLOGY METHOD 11/02/2024 12:[address] [facility] Hemoglobin 8.8(L) 13.5 - 17.5 g/dL LAB HEMETOLOGY METHOD 11/02/2024 12:[address] [facility] Hematocrit 28.2(L) 42.0 - 54.0 % LAB HEMETOLOGY METHOD 11/02/2024 12:[address] [facility] MCV 91.9 79.0 - 98.0 FL LAB HEMETOLOGY METHOD 11/02/2024 12:[address] [facility] MCH 28.7 27.0 - 32.0 pcg LAB HEMETOLOGY METHOD 11/02/2024 12:[address] [facility] MCHC 31.2(L) 32.0 - 37.0 g/dL LAB HEMETOLOGY METHOD 11/02/2024 12:[address] [facility] RDW 13.6 11.0 - 15.0 % LAB HEMETOLOGY METHOD 11/02/2024 12:[address] [facility] Platelets 382 130 - 400 K/mcL LAB HEMETOLOGY METHOD 11/02/2024 12:[address] [facility] MPV 10.3 7.0 - 11.0 FL LAB HEMETOLOGY METHOD 11/02/2024 12:[address] [facility] NRBC 0.0 <1.0 % LAB HEMETOLOGY METHOD 11/02/2024 12:[address] [facility] NRBC Absolute 0.00 <0.10 K/mcL LAB HEMETOLOGY METHOD 11/02/2024 12:23 PM EST [facility] Blood Venous blood specimen / Unknown Venipuncture / Unknown 11/02/2024 7:04 AM EST 11/02/2024 11:13 AM EST us Brandon Mckeon MD LAB BLOOD ORDERABLES Final Resu lt [facility] [address] [place] [address], documented in this encounter Visit Diagnoses Diagnosis Type 2 diabetes mellitus without complications (CMS/HCC V24, CMS/HCC V28) documented in this encounter Care Teams Bull Fiddle Player Relationship Specialty Start Date End Date Travis Au MD [address] [place] [address], [phone] PCP - General Family Medicine 08/22/24 documented as of this encounter
[2025-04-17 20:08] LABS: MANUAL DIFF FLAG NO
[2025-04-17 20:21] LABS: VBG HCO3 17 mmol/L (22-26)
[2025-04-17 20:24] LABS: Venous Blood Gas Refer to POC result
[2025-04-17 20:25] LABS: Imm Gran Abs Auto 0.04 X10*3/uL (0.00-0.03); Imm Gran Pct Auto 0.5 % (0.0-0.4); Lymphocytes Absolute Auto 1.2 X10*3/uL (1.2-4.9); Mean Corpuscular HGB Conc 33.0 g/dl (31.0-36.0); Mean Corpuscular Hemoglobin 28.8 pg (27.0-33.0); Mean Corpuscular Volume 87.3 fL (80.0-98.0); NRBC Abs Auto 0.000 X10*3/uL (0.0-0.012); NRBC Pct Auto 0.0 /100WBC (0.0-0.2); Platelet Count 255 X10*3/uL (160-400); Red Blood Count 2.29 X10*6/uL (4.60-5.80); White Blood Count 8.0 X10*3/uL (4.8-10.8)
[2025-04-17 20:27] LABS: Hemoglobin 6.6 g/dl (14.0-18.0)
[2025-04-17 20:28] LABS: Hematocrit 20.0 % (42.0-52.0)
[2025-04-17 20:32] LABS: Alanine Aminotransferase 16 U/L (0-40); Albumin Level 2.9 g/dL (3.5-5.0); Alkaline Phosphatase 72 U/L (39-117); Anion Gap 18 (12-20); Aspartate Amino Transferase 31 U/L (5-37); Blood Urea Nitrogen 68 mg/dL (9-16); Calcium 7.8 mg/dL (8.4-10.2); Carbon Dioxide 18 mmol/L (22-29); Chloride 110 mmol/L (96-108); Creatinine Clr Calc Pharmacy 9.6; Estimated Glomerular Filt Rate 6; Potassium 4.5 mmol/L (3.3-5.1); Sodium 141 mmol/L (135-145); Total Protein 6.4 g/dL (6.5-8.0)
--- NOTE | 2025-04-17 21:59 | PC.NURSE ---
Consent for blood transfusion signed by patient & Dr. Stanton. Blood bank stated blood unit is ready for release & transfusion.
[2025-04-17 22:03] VITALS: BP 168/73; PULSE 90; RESP 18; TEMP 36.7; O2SAT 95
[2025-04-17 22:08] VITALS: BP 168/73; PULSE 90; RESP 18; TEMP 36.7
[2025-04-17 22:15] VITALS: BP 170/76; PULSE 92; RESP 18; O2SAT 96
[2025-04-17 22:25] VITALS: BP 166/77; PULSE 91; RESP 16; TEMP 36.7
[2025-04-18 00:11] VITALS: BP 178/79; PULSE 95; RESP 18; O2SAT 95
[2025-04-18 00:12] VITALS: BP 178/79; PULSE 95; RESP 18; TEMP 36.7
[2025-04-18 00:28] VITALS: BP 178/79; PULSE 95; RESP 18; TEMP 36.7; O2SAT 95
== END 2025-04-18 00:28 | disposition home or self-care (01) ==
PROVIDERS: Physician Assistant Medical; Emergency Provider Emergency Medicine; PCP Internal Medicine
DX: N18.4 Chronic kidney disease, stage 4 (severe) (principal); D63.1 Anemia in chronic kidney disease; E11.22 Type 2 diabetes mellitus with diabetic chronic kidney disease; I12.9 Hypertensive chronic kidney disease with stage 1 through stage 4 chronic kidney disease, or unspecified chronic kidney disease; Z79.899 Other long term (current) drug therapy
CPT/HCPCS: 36410; 36415; 36430; 76937; 80053; 82803; 85025; 86850; 86900; 86901; 86923; 99283; 99291; P9016

== ENCOUNTER 2025-04-19 14:53 | Outpatient (AMB) | payer OTHER, SELFPAY ==
--- NOTE | 2025-04-19 14:58 | HO.NEPHOV_ITS ---
Vital Signs 04/19/25 15:00 Height 5 ft 10 in BP 132/84 Blood Pressure Location Lt brachial Position Sitting Pulse 85 Pulse Source Pulse Oximeter Pulse Oximetry (%) 95 Oxygen Delivery Method Room Air Intake Visit Reasons: Per MD Payroll And Benefits Specialist Required: No Accompanied by: Significant Other Allergies morphine Allergy (Verified 04/19/25 14:59) Hallucinations bupropion Adverse Reaction (Verified 04/19/25 14:59) Hallucinations HPI Comments Details: 65 year male with COPD, chronic respiratory failure on O2, WENDY s/p right BKA, HTN, a AFib on Xarelto, type 2 diabetes, just recently s/p left great toe amputation, recently had sepsis secondary to acute osteomyelitis/septic arthritis L foot, lytic changes at the area suggestive of OM. cultures positive for MRSA,echo no vegetations; repeat blood culture 02/21 1/2 +, repeat blood cultures 02/23 was negative at 48 hrs. He was put on daptomycin but was readmitted in [facility] with development of ATN during his hospitalization but later in [facility] he was thought to have progression of his renal disease. He has finished his antibiotics and is now having continuos diarrhea. His Hb is dropping and his renal function has not recovered. He is here for follow up [facility] Medical History (Updated 04/19/25 @ 15:04 by Donell Ruiz MD) Anemia in chronic kidney disease (CKD) CKD (chronic kidney disease) stage 4, GFR 15-29 ml/min Hypertension Fluid overload Acute and chronic respiratory failure Sepsis Acute dehydration New onset of congestive heart failure Pneumonia Urinary urgency Urinary tract infection Urinary hesitancy Tubular adenoma of colon Smoker Seborrheic keratoses SND (sensorineural deafness) Right BKA infection Peripheral vascular disease WENDY (obstructive sleep apnea) Microalbuminuria Lung nodule seen on imaging study Lightheadedness Latent tuberculosis LVH (left ventricular hypertrophy) Abnormal PFTs Hyponatremia Hypertensive retinopathy of both eyes Hyperkalemia Hepatitis C Hearing loss of both ears Erectile dysfunction Cataract CKD (chronic kidney disease) Bladder wall thickening BPH (benign prostatic hyperplasia) Anticoagulated Anemia Peripheral neuropathy Diabetes mellitus, type II CVA (cerebral vascular accident) Adrenal nodule Kidney cysts Surgical History Hx of right BKA Family History Brother Diabetes Mother Diabetes Father Diabetes Social History Household Members: Spouse Housing: Apartment Do you presently have visiting nurse or other home services: Yes Alcohol intake: never Patient Tobacco Use Status: Never used Tobacco service: No Review of Systems Const All systems reviewed & are unremarkable except as noted in HPI and below Physical Exam Const General: comfortable and no acute distress Orientation/consciousness: patient oriented x3 HEENT Head: Yes normocephalic Mouth: Normal oral and palatal mucosa present Eyes EOM: EOMs intact bilaterally Neck Neck: Yes supple Resp Auscultation: clear to auscultation bilaterally Cardio Jugular venous distension: no JVD Rate: regular rate GI Palpation (GI): Soft to palpation Auscultation: normal bowel sounds General: Yes no CVA tenderness Back/Spine/Pelvis Back: no CVA tenderness Skin General skin exam: no rashes or lesions noted Neuro General: patient oriented x3 Office Meds epoetin delbert-epbx 10,000 unit/mL injection solution Performing Provider: Donell Ruiz MD Performing Location: [facility] Administered by: Donell Ruiz MD on 04/19/25 15:07 Dose Route Admin Location Dispensed Lot Number Expiration Date [facility] Salary Manager 40,000 unit subcut LUE 4 mL [id number] 11/05/26 2435-5093-75 [employer] Total Dispensed Waste 4 mL 0 % Results Reviewed Nephrology Results: Hgb, (14.0-18.0) 6.6 g/dl L* 04/17/25 WBC, (4.8-10.8) 8.0 X10*3/uL 04/17/25 Plt Count, (160-400) 255 X10*3/uL 04/17/25 Sodium, (135-145) 141 mmol/L 04/17/25 Potassium, (3.3-5.1) 4.5 mmol/L 04/17/25 Chloride, (96-108) 110 mmol/L H 04/17/25 Carbon Dioxide, (22-29) 18 mmol/L L 04/17/25 BUN, (9-16) 68 mg/dL H 04/17/25 Creatinine, (0.5-1.4) 8.42 mg/dL H* 04/17/25 Calcium, (8.4-10.2) 7.8 mg/dL L 04/17/25 Phosphorus, (2.7-4.5) 4.9 mg/dL H 04/05/25 Renal US 02/20/25 Assessment & Plan Assessment & Plan (1) Hypertension: Code(s): I10 - Essential (primary) hypertension Category: Medical Qualifiers: Hypertension type: renovascular hypertension Qualified Code(s): I15.0 - Renovascular hypertension (2) Secondary hyperparathyroidism (of renal origin): Code(s): N25.81 - Secondary hyperparathyroidism of renal origin Category: Medical (3) Acute kidney injury superimposed on CKD: Code(s): N17.9 - Acute kidney failure, unspecified; N18.9 - Chronic kidney disease, unspecified Category: Medical (4) CKD (chronic kidney disease) stage 4, GFR 15-29 ml/min: Code(s): N18.4 - Chronic kidney disease, stage 4 (severe) Category: Medical (5) Anemia in chronic kidney disease (CKD): Code(s): N18.9 - Chronic kidney disease, unspecified; D63.1 - Anemia in chronic kidney disease Category: Medical Qualifiers: Chronic kidney disease stage: stage 4 (GFR 15-29) Qualified Code(s): N18.4 - Chronic kidney disease, stage 4 (severe); D63.1 - Anemia in chronic kidney disease Plan Mr Hinson has advanced chronic kidney disease from diabetes, hypertension as well as vascular disease. His renal disease has been progressive but recently developed UMAIR on CKD due to ATN with a component of renal disease progression. He is aware that he needs to go on dialysis . His blood pressure is at goal. His volume status is optimal. He is tolerating his current medications. He should remain on low potassium diet. I shall initiate him on activated vitamin-D after replacing vitamin-D. Currently he does not have any uremic symptoms. I administered [id number] Procrit at this visit given his Hb is less than 10 Gm/dL. He needs PRBC. He needs stool for culture, C Diff and initiate him on PO Vancomycin. He will also need renal biopsy to see whether whether he is going to recover. I have sent to ER for admission for evaluation of anemia and R/O C Diff as well as renal biopsy. All his questions were answered. Orders: Orders AMB Epoetin Injection Practice Supplied Today D63.1 - Anemia in chronic kidney disease, N18.4 - Chronic kidney disease, stage 4 (severe) Coding Level of Care Code Est Pt Level 4 (48241) Diagnoses Renovascular hypertension I15.0 Hypertension type: renovascular hypertension Secondary hyperparathyroidism (of renal origin) N25.81 Acute kidney injury superimposed on CKD N17.9; N18.9 CKD (chronic kidney disease) stage 4, GFR 15-29 ml/min N18.4 Anemia in stage 4 chronic kidney disease N18.4; D63.1 Chronic kidney disease stage: stage 4 (GFR 15-29)
[2025-04-19 15:00] VITALS: BP 132/84; PULSE 85; O2SAT 95
--- OUTSIDE RECORDS SUMMARY | 2025-04-19 15:24 | XMS_ITS | Encounter Summary ---
Author Organization [facility] Address [address] [place] [address] Care Team Providers Care Customer Servicer Name Role Phone Travis Au MD Primary Care Provider [phone] Encounter Details Date Type Department Care Team (Latest Contact Info) Description 11/01/2024 Lab Requisition [facility] - Main Lab [address] [place] [address] Brandon Mckeon MD [address] [place] [address] Type 2 diabetes mellitus without [...] LAB CHEMISTRY METHOD 11/02/2024 12:37 PM EST [facility] Potassium 5.1 3.5 - 5.5 [...] Resu lt [facility] [address] [place] [address], [place] [phone] * (ABNORMAL) Complete blood count (11/02/2024 7:04 AM EST) [facility] WBC 8.5 4.8 - 10.8 [...] LAB HEMETOLOGY METHOD 11/02/2024 12:23 PM EST [facility] Blood Venous blood specimen / Unknown Venipuncture / Unknown 11/02/2024 7:04 AM EST 11/02/2024 11:13 AM EST us Brandon Mckeon MD LAB BLOOD ORDERABLES Final Resu lt [facility] [address] [place] [address], documented in this encounter Visit Diagnoses Diagnosis Type 2 diabetes mellitus without complications (CMS/HCC V24, CMS/HCC V28) documented in this encounter Care Teams Customer Servicer Relationship Specialty Start Date End Date Travis Au MD [address] [place] [address], [phone] PCP - General Family Medicine 08/22/24 documented as of this encounter
--- OUTSIDE RECORDS SUMMARY | 2025-04-19 15:24 | XMS_ITS | Clinical Summary ---
Author Organization [facility] Address [address] [facility] [address] [place] [address] Phone Care Team Providers Care Predictive Maintenance Technician Name Role Phone Michelle Long MD Primary Care Provider [phone] Allergies Active Allergy Reactions Criticality Noted Date [...] Telephone [facility] [address] [place] [address] Sydney Rosales from Last 3 Months Family [...] to 49 Years) Discontinued 07/01/2010 Insurance [address] [place] [id number] [facility] ([id number]) MAHESH MACIAS [phone] [facility] Dual SNP ([id number]) Care Teams Predictive Maintenance Technician Relationship Specialty Start Date End Date Michelle Long MD [address] [place], [place] PCP - General Internal Medicine 10/06/23
--- OUTSIDE RECORDS SUMMARY | 2025-04-19 15:25 | XMS_ITS | Data Portability ---
Author Organization [facility], Main Office Address [address] [place] [address] Care Team Providers Care Money Manager Name Role Phone CANDIS BECK - 2ND FLOOR OTHER KENIA BUITRAGO Primary Care Provider Assessment Encounter Date Assessment Date Assessment LastModified by Organization Details LastModified Time 09/29/2024 09/29/2024 Spent 30 reviewing records, seeing pt, consulting with staff and documenting [email or web address] Not available 09/29/2024 15:04:55 11/11/2024 11/11/2024 Greater than 30 minutes of assessment, education, applying global marketing coordinator, discharge planning and documentation today. Not available [...] Organization Details Recorded Time Peripheral vascular disease 644539434 Active 2023 Oksana Lennon NP [address], [place], [address], [facility] 4 17:52:49 Adult failure to thrive syndrome 444542197 Active 2023 Oksana Lennon NP [address], [place], [address], [facility] 4 17:53:00 Type 2 diabetes mellitus 67162595 Active 2023 Oskana Lennon NP [address], [place], [address], [facility] 4 17:53:10 Hypertensive disorder 23816751 Active 2023 Oksana Lennon NP [address], [place], [address], [facility] 4 17:53:15 Benign prostatic hyperplasia 682641222 Active 2023 Oksana Lennon NP [address], [place], [address], [facility] 4 17:53:22 Hyperkalemia 94887154 Active 2023 Oksana Lennon NP [address] [facility], [address], [place], [address], [facility] 4 17:53:30 Chronic kidney disease stage 4 442361966 Active 2023 Oksana Lennon NP [address] [facility], [address], [place], [address], [facility] 4 17:54:21 Hyperlipidemia 01729843 Active 2023 Oksana Lennon NP [address] [facility], [address], [place], [address], [facility] 4 18:13:13 Smoker 77110623 Active 2023 Oksana Lennon NP [address], [address], [place], [address], [facility] 4 18:15:45 Problem Notes None recorded. Medical Equipment None Reported. Allergies Allergen ID Allergen Name Allergen Category Reaction Reaction Severity Criticality Documentation Date Start Date Code Code System Note Provider Name and Address Organization Details Recorded Time 74628 morphine medicatio n itching Not available low 08/22/2024 7052 RxNorm Janice Mitchell MD [address], [address], [place], [address], [facility] 4 20:23:08 11919 bupropion Not available confusion hallucina tions Not available Not available Not available 08/22/2024 18210 RxNorm tremo rs, aggre ssive , loss of appet ite Janice Mitchell MD [address] [facility], [address], [place], [address] , [facility] 4 20:23:00 Vitals Date Recorded Body height Body weight Body mass index (BMI) Heart rate Respiratory rate Body temperature Oxygen saturation Oxygen saturation in Arterial blood by Pulse oximetry Systolic And Diastolic Provider Name and Address Organization Details Last Updated DateTime 5 179.83 cm 50752.8 1 g 25.5 kg/m2 62 /min 16 /min 98.2 [degF] 96 % 96 % 146/74 mm[Hg] Oksana Lennon NP [address] [facility] [address], [place], [address], [facility] 5 10:26:07 Date Recorded Body height Body weight Body mass index (BMI) Heart rate Respiratory rate Body temperature Oxygen saturation Oxygen saturation in Arterial blood by Pulse oximetry Systolic And Diastolic Provider Name and Address Organization Details Last Updated DateTime 5 179.83 cm 94698.8 1 g 25.5 kg/m2 68 /min 18 /min 97.2 [degF] 96 % 96 % 158/65 mm[Hg] Oksana Lennon NP [address] [place] [address], [facility] [address], [place], [address], [facility] 5 16:59:12 Date Recorded Body height Body mass index (BMI) Body weight Heart rate Respiratory rate Body temperature Oxygen saturation Oxygen saturation in Arterial blood by Pulse oximetry Systolic And Diastolic Provider Name and Address Organization Details Last Updated DateTime 5 179.83 cm 24.1 kg/m2 78917.8 9 g 71 /min 19 /min 97.9 [degF] 97 % 97 % 162/81 mm[Hg] Oksana Lennon NP [address] [place] [address], [facility] [address], [place], [address], [facility] 5 08:22:41 Date Recorded Body height Heart rate Respiratory rate Body temperature Oxygen saturation Oxygen saturation in Arterial blood by Pulse oximetry Systolic And Diastolic Provider Name and Address Organization Details Last Updated DateTime 4 179.83 cm 70 /min 18 /min 98 [degF] 98 % 98 % 132/75 mm[Hg] ISABEL SAUNDERS NP [address] [facility], [address], [place], [address], [facility] 4 15:05:47 Date Recorded Body height Body mass index (BMI) Body weight Heart rate Respiratory rate Body temperature Oxygen saturation Oxygen saturation in Arterial blood by Pulse oximetry Systolic And Diastolic Provider Name and Address Organization Details Last Updated DateTime 4 179.83 cm 28.2 kg/m2 63240.0 7 g 77 /min 18 /min 98 [degF] 98 % 98 % 132/75 mm[Hg] Janice Mitchell MD [address] [facility], [facility] [address], [place], [address], [facility] 4 15:06:09 Social History Question Answer Notes LastModified by Organizat ion Details LastModified Time Tobacco Smoking Status Current Every Day Smoker Oksana Lennon NP [address] [facility], [address], [place], [address], [facility] 08/22/2024 17:36:42 What Is Your Code Status? Full Code Information not available 08/22/2024 Where Do You Live? 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 10/04/2024 14:59:46 SARS-COV-2 (COVID-19) vaccine, UNSPECIFIED 10/16/[address] [facility] 10/04/2024 15:00:00 SARS-COV-2 (COVID-19) vaccine, UNSPECIFIED 11/06/[address] [facility] 10/04/2024 15:00:07 SARS-COV-2 (COVID-19) vaccine, UNSPECIFIED 06/02/2021 completed Bri Cal [facility] 10/04/2024 15:00:15 SARS-COV-2 (COVID-19) vaccine, UNSPECIFIED 06/27/2022 completed Bri Cal [facility] 10/04/2024 15:00:22 SARS-COV-2 (COVID-19) vaccine, UNSPECIFIED 06/26/[address] [facility] 10/04/2024 15:00:37 Past Encounters Encounter ID Performer Location Encounter Start Date Encounter Closed Date Diagnosis/Indication Diagnosis SNOMED-CT Code Diagnosis ICD10 Code Diagnosis Note [id number] Oksana Lennon NP [address] [address] 08/22/2024 14:49:44 08/23/2024 10:31:07 Adult failure to thrive syndrome 714469241 R62.7 supportive carept /ot eval and treat for rom, mobility, strengthen ing, gait, balancemon itor for need to adjust careplan Hypertensive disorder 38 230491 I10 amlodipine 10 mg po qdmetoprol ol xl 100 mg po qdhydralaz ine 50 tidmonitor bp and need to adjust Hyperkalemia 83357535 E8 7.5 renal diet, low potassiuml okelma 10 g qdsodium bicarb 650 mg po bidcbc and bmp weekly x 3 weeks Chronic ki dney disease stage 4 573899865 N18.4 renal diet, low potassiumw as educated in hospital about diet, cont here with dieticainb aseline 2.5-3lokel ma 10 g qdsodium bicarb 650 mg po bidfu with nephrology Dr Perez ? Dr Mc 2 weeks Peripheral vascular disease 934596534 I73.9 with BKA Right and [address] and severe vascuopath yxarelto 2.5 mg po bidoxycodo ne 5 mg po q 8 hours prn paintyl prnPT/OT eval and treatfu plan:[facility] [facility] 12/3 3pm and 330 pm and 09/08 1:30 pmwill leave open to air for nowmonitor for s/s of infection Type 2 kishor betes mellitus 89792337 E11.21 farxiga 10 mg po qdlispro tid ac SSImonitor BS and adjust as needed Benign pro static hyperplasia 927720432 N40.0 tamsulosin 0.4 mg po dailyfinas teride 5 mg po qdmonitor Hyperlipidemia 00367975 E78.5 atorvastat in 10 mg po qdaspirin 81 mg po qdmonitor Smoker 87149222 F17.200 pt is chronic smokereduc ated 3-10 minutes and refuses NRT or to quitplan is to continue smokingmon itor for readiness to quit with chronic disease [id number] Janice Mitchell MD [facility] [address] 08/23/2024 19:50:37 08/29/2024 13:25:12 Adult failure to thrive syndrome 479235447 R62.7 PT/OT as above.Astrid tor mood and po intake.Psy ch consult prn Hypertensive disorder 38 108905 I10 Some borderline SBPs since here, but diastolics all low normal or low.No change in meds for nowContinu e amlodipine 10 mg qd, metoprolol succinate 100 mg qd, and hydralazin e 50 mg TID.Monito r BP and labs Hyperkalemia 08085009 E8 7.5 In good control on current regimen.Co ntinue renal diet, Lokelma 10 g qd and sodium bicarb 650 mg BID.Monito r labs. Chronic ki dney disease stage 4 818556299 N18.4 At baseline.C ontinue to avoid nephrotoxi c meds as able.Monit or labs.Renal f/u as planned. Peripheral vascular disease 535047615 I73.89 Z89.511 Recovering well from BKA on [...] this week. Type 2 kishor betes mellitus 05151168 E11.21 Sugars in good control since here.Last HgA1C was 7.4 in 03/2024, and 6.4 on 08/22/24.C ontinue Farxiga 10 mg qd and SSI.Monito r fingerstic ks TID and HgA1C q 3 months. Benign pro static hyperplasia 506724735 N40.0 No current sxs.Contin ue tamsulosin 0.4 mg qd and finasterid e 5 mg qdMonitor urinary function. Hyperlipidemia 93947271 E78.49 Continue atorvastat in 10 mg qd and ASA 81 mg qdMonitor labs as outpt. Smoker 01611043 F17.213 Earlier told someone he was jonesing for a cigarette , but tells me he is considerin g quitting.N ot interested in NRT, says he has had bad rxns.Sole nue to encourage cessation. [id number] Oksana Lennon NP [address] [address] 09/08/2024 12:24:42 09/12/2024 13:04:51 Peripheral vascular disease 382294636 I73.89 Z89.511 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, but having trouble with amp emotionall y and trouble caring for himself.co ntPT/OT for strengthen ing, balance, gait training, safety and function.a [facility] ontinue fall precaution s.Monitor for safety.Con tinueXarel to 2.5 mg BID for DVT prophylaxi s.oxycodon e 5 mg q 8 hrs prnAPAP 650 mg q 4 hrs prn.F/U with vascular as planned.Mo nitor incision, healed in today09/08 rehan ordered and faxed to [facility] with appt 09/15fu in spring for further testing of left leg Adult fail ure to thrive syndrome 061105611 R62.7 PT/OT as above.Astrid tor mood and po intake.Psy ch consult prn Hypertensive disorder 38 868346 I10 bp stableCont inueamlodi pine 10 mg qdmetoprol ol succinate 100 mg qd,hydrala zine 50 mg TID.Monito r BP and labs Hyperkalemia 06535356 E8 7.5 In good control on current regimen.Co ntinue renal diet (low k)Lokelma 10 g qdsodium bicarb 650 mg BID.Monito r labs. not done this week, will reorder Chronic ki dney disease stage 4 207856822 N18.4 At baseline.C ontinue to avoid nephrotoxi c meds as able.monit or bmp for increased kcont sodium bicarbonat e bidMonitor labs.Renal f/u as planned. Type 2 kishor betes mellitus 68820165 E11.21 BS stableLast HgA1C was 7.4 in 03/2024, and 6.4 on 08/22/24.C ontinueFar xiga 10 mg qd and SSI.Monito r fingerstic ks TID and HgA1C q 3 months. Benign pro static hyperplasia 771569432 N40.0 No current sxs.Contin uetamsulos in 0.4 mg qd and finasterid e 5 mg qdMonitor urinary function. Hyperlipidemia 29857323 E78.49 Continueat orvastatin 10 mg qd and ASA 81 mg qdMonitor labs as outpt. Smoker 97589227 F17.213 continues to smokeNot interested in NRT, says he has had bad rxns.educsilvestre tate on smoking cessationC ontinue to encourage cessation. [id number] Oksana Lennon NP [facility] [address] 09/14/2024 14:33:03 09/16/2024 14:16:40 Peripheral vascular disease 612874164 I73.89 Z89.511 Recovering well from BKA on [...] prn Adult fail ure to thrive syndrome 765379492 R62.7 Monitor mood and intakePsyc h consult prn Hypertensive disorder 38 109143 I10 bp stable hereContin ueamlodipi ne 10 mg qdmetoprol ol succinate 100 mg qd,hydrala zine 50 mg TID.Monito r BP and labs outpt with pcplabs ordered but not done, will attempt tomorrow again Hyperkalemia 08459926 E8 7.5 In good control on current regimen.Co ntinue renal diet (low k)Lokelma 10 g qdsodium bicarb 650 mg BID.Monito r labs. not done this week, will reorder for ed am again before dc(unclear why labs aren't done, question difficult stick? )fu with pcp Chronic ki dney disease stage 4 129097798 N18.4 At baseline.C ontinue to avoid nephrotoxi c meds as able.conts odium bicarbonat e bidMonitor labs outpt with pcpRenal f/u as planned. Type 2 kishor bettorres mellitus 29892638 E11.21 BS stableLast HgA1C was 7.4 in 03/2024, and 6.4 on 08/22/24.C ontinueFar xiga 10 mg qd and SSI.Monito r fingerstic ks TID and HgA1C q 3 months Benign pro static hyperplasia 759423371 N40.0 No current sxs.Contin uetamsulos in 0.4 mg qd and finasterid e 5 mg qdMonitor urinary function Hyperlipidemia 13955647 E78.49 Continueat orvastatin 10 mg qd and ASA 81 mg qdMonitor labs with pcp prn Smoker 09340032 F17.213 continues to smokeNot interested in NRT, says he has had bad rxns.educsilvestre tate on smoking cessationC ontinue to encourage cessation [id number] Oksana Lennon NP [address] [address] 09/21/2024 13:09:13 09/22/2024 12:24:03 Peripheral vascular disease 157722145 I73.89 Z89.511 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, but having trouble with amp emotionall y and trouble caring for himself.ov erall doing much better and healing in, incision closedCont inue fall precaution s.Monitor for safety.Con tinueXarel to 2.5 mg BID for DVT prophylaxi s.APAP 650 mg q 4 hrs prn.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 and educated on need to use it so he can get prothetic soon.will fu with bell prothetics fu in spring for further testing of left leg with vascular outpt and prn Adult fail ure to thrive syndrome 779124004 R62.7 Monitor mood and intakePsyc h consult prn Hypertensive disorder 38 234325 I10 bp stable 118/64Cont inueamlodi pine 10 mg qdmetoprol ol succinate 100 mg qd,hydrala zine 50 mg TID.Monito r BP and labs outpt with pcp Hyperkalemia 13618114 E8 7.5 In good control on current regimen.Co ntinue renal diet (low k)Lokelma 10 g qdsodium bicarb 650 mg BID.Monito r labs.fu with renal Chronic ki dney disease stage 4 958384919 N18.4 At baseline.C ontinue to avoid nephrotoxi c meds as able.conts odium bicarbonat e bidRenal f/u as planned. Type 2 kishor betes mellitus 99854516 E11.21 BS stableHgA1 C was 7.4 in 03/2024, and 6.4 on 08/22/24 improvedCo ntinueFarx iga 10 mg qd and SSI.Monito r fingerstic ks TID and HgA1C q 3 months Benign pro static hyperplasia 060680029 N40.0 No current sxs.Contin uetamsulos in 0.4 mg qd and finasterid e 5 mg qdMonitor urinary function [id number] Oksana Lennon, TANYA [facility] [address] [address] 09/22/2024 12:31:57 09/26/2024 12:28:42 Peripheral vascular disease 205551859 I73.89 Z89.511 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, but having trouble with amp emotionall y and trouble caring for himself.ov erall doing much better and healing in, incision closedCont inue fall precaution s.Monitor for safety.Con tinueXarel to 2.5 mg BID for DVT prophylaxi s.APAP 650 mg q 4 hrs prn.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 and educated on need to use it so he can get prothetic soon.will fu with bell prosthetic sfu in spring for further testing of left leg with vascular outpt and prn Adult fail ure to thrive syndrome 724195658 R62.7 Monitor mood and intakePsyc h consult prn Hypertensive disorder 38 876990 I10 stableCont inueamlodi pine 10 mg qdmetoprol ol succinate 100 mg qd,hydrala zine 50 mg TID.Monito r BP and labs outpt with pcp Hyperkalemia 04579021 E8 7.5 In good control on current regimen.Co ntinue renal diet (low k)Lokelma 10 g qdsodium bicarb 650 mg BID.Monito r labs.fu with renalfu labs cbc and bmp 09/26 Chronic ki dney disease stage 4 248301402 N18.4 At baseline.C ontinue to avoid nephrotoxi c meds as able.conts odium bicarbonat e bidRenal f/u as planned. Type 2 kishor betes mellitus 58838475 E11.21 BS stableHgA1 C was 7.4 in 03/2024, and 6.4 on 08/22/24 improvedCo ntinueFarx iga 10 mg qd and SSI.Monito r fingerstic ks TID and HgA1C q 3 months Benign pro static hyperplasia 476864642 N40.0 No current sxs.Contin uetamsulos in 0.4 mg qd and finasterid e 5 mg qdMonitor urinary function Furuncle of buttock 1243 0003 L02.32 large abcess on posterior right upper buttock likely [id number] /19start cephalexin 500 mg po q 8 hours (will decrease from q6 hr dosing due to poor renal fx)x 7 days with probioticn s wash, pat dry, and apply foam dressing to areamonito r for s/s of infectionc bc and bmp on 09/26cons ider wound consult Angioedema of lip 501036 005 T78.3XXA pt with angioedema to only [...] distress, diff swallowing , or increased swelling [id number] [facility] [address] 09/23/2024 08:41:31 09/26/2024 14:26:31 Angioedema of lip 224602028 T78.3XXA pt with angioedema to only the [...] medication s if reoccurs Peripheral vascular disease 805123325 I73.89 Z89.511 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, but having trouble with amp emotionall y and trouble caring for himself.ov erall doing much better and healing in, incision closedCont inue fall precaution s.Monitor for safety.Con tinueXarel to 2.5 mg BID for DVT prophylaxi s.APAP 650 mg q 4 hrs prn.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 and educated on need to use it so he can get prothetic soon.will fu with bell prosthetic sfu in spring for further testing of left leg with vascular outpt and prn Adult fail ure to thrive syndrome 681342902 R62.7 Monitor mood and intakePsyc h consult prn Hypertensive disorder 38 001174 I10 stableCont inueamlodi pine 10 mg qdmetoprol ol succinate 100 mg qd,hydrala zine 50 mg TID.Monito r BP and labs outpt with pcp Hyperkalemia 09309295 E8 7.5 In good control on current regimen.Co ntinue renal diet (low k)Lokelma 10 g qdsodium bicarb 650 mg BID.Monito r labs.fu with renalfu labs cbc and bmp 09/26 Chronic ki dney disease stage 4 206691484 N18.4 At baseline.C ontinue to avoid nephrotoxi c meds as able.conts odium bicarbonat e bidRenal f/u as planned. Type 2 kishor betes mellitus 30043644 E11.21 BS stableHgA1 C was 7.4 in 03/2024, and 6.4 on 08/22/24 improvedCo ntinueFarx iga 10 mg qd and SSI.Monito r fingerstic ks TID and HgA1C q 3 months Benign pro static hyperplasia 678155337 N40.0 No current sxs.Contin uetamsulos in 0.4 mg qd and finasterid e 5 mg qdMonitor urinary function Carbuncle of buttock 762 03821 L02.33 large golf ball size abcess on [...] to assess renal func and for infection [id number] Janice Mitchell MD [address] [address] 09/26/2024 19:01:26 09/27/2024 08:53:46 Carbuncle of buttock 29889857 L02.33 Improving. Continue cephalexin 500 mg q 8 hrs until 09/29 with probiotic BID.Contin ue wound care as ordered.To be seen by wound care in AM before d/c.F/U with PCP as outpt. Angioedema of lip 528168 005 T78.3XXA ResolvedFi brandon prednisone taper.Astrid tor for recurrence . Peripheral vascular disease 835478650 I73.89 Z89.511 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.Cont inue Xarelto 2.5 mg BID for DVT prophylaxi s (not sure how long he needs to be on this).Cont inue APAP 650 mg q 4 hrs prn.No longer needing Oxy.Contin ue global marketing coordinator and f/u with prosthetis t as planned.F/ U with vascular as planned. Adult fail ure to thrive syndrome 791260663 R62.7 Much improved.F /U with PCP as outpt. Hypertensive disorder 38 620523 I10 In good control.Co ntinue amlodipine 10 mg qd, metoprolol succinate 100 mg qd, and hydralazin e 50 mg TID.F/U with PCP as outpt. Hyperkalemia 48939119 E8 7.5 Remains WNL, but sl. higher than 09/15, likely due to UMAIR.Contin ue renal diet (low k)Continue NaHCO3 as above and Lokelma 10 gms qdWill order repeat labs for 09/29 with [facility]. Chronic ki dney disease stage 4 089035486 N18.4 With sig worsening today compared to 09/15Enc raged pt to drink more fluids.Con tinue to avoid nephrotoxi c meds as able.Sole nue sodium bicarbonat e 650 mg BID.Renal f/u as planned. Type 2 kishor betes mellitus 04697936 E11.21 BS mostly in ood control since here with occ high readingHgA 1C was 7.4 in 03/2024, and 6.4 on 08/22/24 improvedCo ntinue Farxiga 10 mg qd and SSI.F/U with PCP as outpt. Benign pro static hyperplasia 845524352 N40.0 No sxs. since here.Sole nue tamsulosin 0.4 mg qd and finasterid e 5 mg qdF/U with PCP as outpt. Hyperlipidemia 86338653 E78.49 Continue atorvastat in 10 mg qd and ASA 81 mg qdMonitor labs as outpt. Smoker 71220471 F17.213 Has been smoking since here.Refus ed NRT.Contin ue to encourage cessation. [id number] ISABEL SAUNDERS, TANYA [address] [address] 09/29/2024 15:04:27 09/30/2024 12:02:02 Chronic kidney disease stage 4 595330246 N18.4 With sig worsening 09/26 compared to 09/15Enc rage fluids.Con tinue to avoid nephrotoxi c meds as able.Follo w up with Nephrology as sched.Cont inue sodium bicarbonat e 650 mg BID.CMP in am Hyperkalemia 73450376 E8 7.5 Remains WNL, but sl. higher than 09/15, likely due to UMAIR.Contin ue renal diet (low k)Continue NaHCO3 as above and Lokelma 10 gms qdWill order repeat labs for 09/30 Peripheral vascular disease 706600773 I73.89 Z89.511 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.Cont inue Xarelto 2.5 mg BID for DVT prophylaxi s (not sure how long he needs to be on this).Cont inue APAP 650 mg q 4 hrs prn.No longer needing Oxy.Contin ue global marketing coordinator and f/u with prosthetis t as planned.F/ U with vascular as planned. Carbuncle of buttock 762 13884 L02.33 Improving. Continue cephalexin 500 mg q 8 hrs until complete, as well as probiotic BID.Contin ue wound care as ordered.To be seen by wound care in AM before d/c.F/U with PCP as outpt. Angioedema of lip 712587 005 T78.3XXA ResolvedFi brandon prednisone taper.Astrid tor for recurrence . Adult fail ure to thrive syndrome 893944403 R62.7 Much improved.F /U with PCP as outpt. Hypertensive disorder 38 952190 I10 In good control.Co ntinue amlodipine 10 mg qd, metoprolol succinate 100 mg qd, and hydralazin e 50 mg TID.F/U with PCP as outpt. Type 2 kishor betes mellitus 35328585 E11.21 BS mostly in good control since here with occ. high readingHgA 1C was 7.4 in 03/2024, and 6.4 on 08/22/24 improvedCo ntinue Farxiga 10 mgBS bid once a week and prnF/U with PCP as outpt. Benign pro static hyperplasia 927596855 N40.0 No sxs. since here.Sole nue tamsulosin 0.4 mg qd and finasterid e 5 mg qdF/U with PCP as outpt. Hyperlipidemia 01402031 E78.49 Continue atorvastat in 10 mg qd and ASA 81 mg qdMonitor labs as outpt. Smoker 40575308 F17.213 Has been smoking since here.Refus ed NRT.Contin ue to encourage cessation. [id number] Janice Mitchell MD [facility] [address] 09/30/2024 14:58:21 10/03/2024 12:45:37 Chronic kidney disease stage 4 611271438 N18.4 With sig worsening on 09/26 compared to t was going to drink more fluids at home and he says he did.Contin ue to avoid nephrotoxi c meds as able.Sole nue sodium bicarbonat e 650 mg BID.Renal f/u as planned.La bs were to be rechecked today, but pt refused.Pr omises he will allow lab draw on Wednesday 10/03. Hyperkalemia 02105660 E8 7.5 Remains WNL, but was sl. higher on 09/26 than 09/15, likely due to UMAIR.Contin ue renal diet (low k)Continue NaHCO3 as above and Lokelma 10 gms qdLabs on 10/03 as above. Peripheral vascular disease 973455277 I73.89 Z89.511 Has recovered well from BKA on 07/21.Cont inue Xarelto 2.5 mg BID for DVT prophylaxi s (not sure how long he needs to be on this).Cont inue APAP 650 mg q 4 hrs prn.Contin ue global marketing coordinator and f/u with prosthetis t as planned.F/ U with vascular as planned. Carbuncle of buttock 762 59915 L02.33 Improving per pt.Wound care note from 09/27 not scanned in to P[facility] yet.Contin ue cephalexin 500 mg q 8 hrs until 10/02 with probiotic BID.Contin ue wound care as ordered.F/ U with wound care weekly until healed. Angioedema of lip [id number] 005 T78.3XXA ResolvedHa s completed prednisone taper.Astrid tor for recurrence . Adult fail ure to thrive syndrome [id number] R62.7 Much improved.C ontinue liquid protein 30 mg qd to help with wound healing.En courage healthy eating. Hypertensive disorder 38 542282 I10 Remains in good control.Co ntinue amlodipine 10 mg qd, metoprolol succinate 100 mg qd, and hydralazin e 50 mg TID.Monito r BP and labs. Type 2 kishor betes mellitus [id number] E11.21 Very good since return, all <150.HgA1C was 7.4 in 03/2024, and 6.4 on 08/22/24.C ontinue Farxiga 10 mg qd and SSI.If sugars remain <200 consistent ly can change TID fingerstic ks to qAM. Benign pro static hyperplasia 372047026 N40.0 No sxs. since here.Sole nue tamsulosin 0.4 mg qd and finasterid e 5 mg qdMonitor urinary function. Hyperlipidemia 25350213 E78.49 Continue atorvastat in 10 mg qd and ASA 81 mg qdMonitor labs yearly. Smoker [id number] F17.213 Continues to smoke.Cont inues to refuse NRT.Contin ue to encourage cessation. [id number] Oksana Lennon NP [facility] [address] [place] [address] 10/13/2024 10:10:33 10/14/2024 10:47:39 Chronic kidney disease stage 4 [id number] N18.4 With sig worsening on 09/26 compared to t was going to drink more fluids at home and he says he did.Contin ueavoid nephrotoxi c meds as able.sodiu m bicarbonat e 650 mg BID.Renal f/u as planned.La bs ordered for bmp and cbc on 10/19 on thu x 2labs as above Hyperkalemia 56979326 E8 7.5 Remains WNL, but was sl. higher on 09/26 than 09/15, likely due to UMAIR.Contin uerenal diet (low k)NaHCO3 as aboveLokel ma 10 gms qdLabs on 10/03 as above.bmp and cbc 10/19 ordered Peripheral vascular disease [id number] I73.89 Z89.511 Has recovered well from r BKA on 07/21.plan for prothetic on 10/21 per pt.Continu eXarelto 2.5 mg BID for DVT prophylaxi s (not sure how long he needs to be on this).Cont inue APAP 650 mg q 4 hrs prn.Contin ue global marketing coordinator and f/u with prosthetis t as planned.F/ U with vascular as planned. Carbuncle of buttock [id number] 29398 L02.33 Improving per pt.mostly healedCont inuecomple lea cephalexin 500 mg q 8 hrs until 10/02 with probiotic BID.Contin ue wound care as ordered.F/ U with wound care weekly until healed.ratna l order zinc cream to right upper abcess buttock qd until healedmoni tor for s/s of infection Adult fail ure to thrive syndrome [id number] R62.7 Much improved.E ncourage healthy eating. Hypertensive disorder 38 660566 I10 Remains in good control.Co ntinueamlo dipine 10 mg qd, metoprolol succinate 100 mg qd, and hydralazin e 50 mg TID.Monito r BP and labs. Type 2 kishor bettorres mellitus 01937420 E11.21 Very good since return, all <150.HgA1C was 7.4 in 03/2024, and 6.4 on 08/22/24.C ontinue Farxiga 10 mg qd and SSI.If sugars remain <200 consistent ly can change TID fingerstic ks to qAM. Benign pro static hyperplasia 138328375 N40.0 No sxs. since here.Sole nuetamsulo sin 0.4 mg qd and finasterid e 5 mg qdMonitor urinary function. Hyperlipidemia 02331228 E78.49 Continueat orvastatin 10 mg qd and ASA 81 mg qdMonitor labs yearly. Smoker [id number] F17.213 Continues to smoke.spen t 3-10 min on education and NRT therapy, he is willing to try nicorette gumnicoret te gum 4 mg po q 3 hours prn cravingsCo ntinue to encourage cessation. [id number] Oksana Lennon NP [address] [address] 10/21/2024 09:04:51 10/24/2024 16:33:36 Peripheral vascular disease [id number] I73.89 Z89.511 Has recovered well from r BKA on 07/21.plan for prosthetic on 10/21 per pt.Continu eXarelto 2.5 mg BID for DVT prophylaxi s (not sure how long he needs to be on this).APAP 650 mg q 4 hrs prn.shrink er and f/u with prosthetis t as planned.F/ U with vascular as planned outpt in the spring Chronic dney disease stage 4 [id number] N18.4 With sig worsening on 09/26 compared to t was going to drink more fluids at home and he says he did.Contin ueavoid nephrotoxi c meds as able.sodiu m bicarbonat e 650 mg BID.Renal f/u as planned.la bs as above, and reordered Smoker 31526106 F17.213 Continues to smoke.jm rette gum 4 mg po q 3 hours prn cravingsCo ntinue to encourage cessation. Carbuncle of buttock 762 47321 L02.33 resolvedco mpleted cephalexin 500 mg q 8 hrs until 10/02 with probiotic BID..will order zinc cream to right upper abcess buttock qd until healedmoni tor for s/s of infection Hyperkalemia 37276165 E8 7.5 Remains WNL, but was sl. higher on 09/26 than 09/15, likely due to UMAIR.Contin uerenal diet (low k)NaHCO3 as aboveLokel ma 10 gms qdbmp and cbc weekly for one more lab Adult fail ure to thrive syndrome [id number] R62.7 Much improved and seems to be doing better with plan for BKA soonEncour age healthy eating. Hypertensive disorder 38 781836 I10 Remains in good control.Co ntinueamlo dipine 10 mg qdmetoprol ol succinate 100 mg qdhydralaz ine 50 mg TID.Monito r BP and labs. Type 2 kishor betes mellitus 24447546 E11.21 Very good since return, all <150.HgA1C was 7.4 in 03/2024, and 6.4 on 08/22/24.C ontinue Farxiga 10 mg qd and SSI.If sugars remain <200 consistent ly can change TID fingerstic ks to qAM. Benign pro static hyperplasia 492449214 N40.0 No sxs. since here.Sole nuetamsulo sin 0.4 mg qd and finasterid e 5 mg qdMonitor urinary function. Hyperlipidemia 87044663 E78.49 Continueat orvastatin 10 mg qd and ASA 81 mg qdMonitor labs yearly. Angioedema of lip 993606 005 T78.3XXA ResolvedHa s completed prednisone taper.Astrid tor for recurrence . [id number] [facility] [address] [place] [address] 11/11/2024 08:19:31 11/15/2024 13:47:34 Peripheral vascular disease [id number] I73.89 Z89.511 Has recovered well from r BKA on 07/21/24.H e plans to discharge despite prosthetic not fitting well and fu with [facility] on Thursday.He does not want to stay [...] the spring Chronic dney disease stage 4 771195040 N18.4 With CKD at baselineCo ntinueavoi d nephrotoxi c meds as able.sodiu m bicarbonat e 650 mg BID.Renal f/u as planned ouitptfu with pcp outpt and renal outpt Smoker 36130936 F17.213 Continues to smoke.jm rette gum 4 mg po q 3 hours prn cravingsCo ntinue to encourage cessation outpt Carbuncle of buttock 762 22862 L02.33 resolvedco mpleted cephalexin 500 mg q 8 hrs until 10/02 with probiotic BID..will order zinc cream to right upper abcess buttock qd until healedmoni tor for s/s of infection outpt with pcp Hyperkalemia 32554312 E8 7.5 Remains WNLContinu erenal diet (low k)NaHCO3 as aboveLokel ma 10 gms qdlabs outpt with pcp Adult fail ure to thrive syndrome [id number] R62.7 Much improved and seems to be doing better with plan for BKA soonEncour age healthy eating outpt Hypertensive disorder 38 631959 I10 Remains in good control, bp high this am but has not got his bp meds yet todayConti nueamlodip ine 10 mg qdmetoprol ol succinate 100 mg qdhydralaz ine 50 mg TID.Monito r BP and labs outpt with pcp Type 2 kishor betes mellitus 56751490 E11.21 Very good since return, mostly <150.HgA1C was 7.4 in 03/2024, and 6.4 on 08/22/24.C ontinueFar xiga 10 mg qd and SSI.If sugars remain <200 consistent ly can change TID fingerstic ks to qAM.monito r outpt with pcp outpt Benign pro static hyperplasia 897342586 N40.0 No sxs. since here.Sole nuetamsulo sin 0.4 mg qdfinaster paula 5 mg qdMonitor urinary function outpt with pcp Hyperlipidemia 54016672 E78.49 Continueat orvastatin 10 mg qdASA 81 mg qdMonitor labs with pcp prn Angioedema of lip 159093 005 T78.3XXA Resolvedwa s never on sarita [...] Miles Member ID Guarantor Name 11/11/2024 1 [facility] - DOS ON OR AFTER 2023 - MEDICARE ADVANTAGE [place] & [place] (MEDICARE REPLACEMENT/ADV ANTAGE - PPO) Renato Hinson [id number] Renato Hinson Notes Date Note Type Note Provider Name and Address Organization Details Recorded Time 09/29/2024 text/html Renato is seen today for initial intake. He is a 64 yo man, just discharged from [facility] 09/27. returned him to the facility [...] had f/u set up with PCP/renal and dormitory keeper.He developed an abscess of his low back/upper [...] and cigarette smoker. ISABEL SAUNDERS NP [address], [address], [place], [address], [facility] [employer] 09/29/2024 15:14:57 09/30/2024 text/html This is a [...] able to admit him, unclear if to assisted care or continued rehab.He was supposed to [...] HLD, and cigarette smoker. Janice Mitchell MD [address] [place] [address], [address], [place], [address], [facility] [employer] 09/30/2024 16:14:41 10/13/2024 text/html Pt is seen [...] a few times. Oksana Lennon, TANYA [address], [address], [place], [address], [facility] [place] 10/13/2024 10:38:23 10/21/2024 text/html Pt is seen for a 90 day routine rounding visit today. His PMH includes HTN, severe PVD s/p right BKA on 07/21/24, AODM with neuropathy, CKD stage 4, hx of Hep C from tattoo, latent Tb (txed in 2020), HLD, and cigarette smoker. Renato is 64 yo man here at [facility] for rehab who d/c'd to home [...] resolved with abx. He has received his global marketing coordinator and site of BKA well healed. His prosthetic should be in this week. He is aware he should stay a few days to make should he has proper training and guidance to use the prosthetic here with therapy and then consider dc home. On exam, he is seen lying in bed in [facility]. He is excited to get his prosthetic this week and get back to his old life. He denies any new concerns. Unclear if weight is accurate at 182 lbs this week which would be down form 198 lbs on admission. Will have another weight done. Denies any vomiting or decreased eating today. Oksana Lennon, TANYA [address], [address], [place], [address], [facility] [employer] 10/21/2024 17:16:46 11/11/2024 text/html Pt is seen for a discharge summary. His PMH includes HTN, severe PVD s/p right BKA on 07/21/24, AODM with neuropathy, CKD stage 4, hx of Hep C from tattoo, latent Tb (txed in 2020), HLD, and cigarette smoker. Renato is 64 yo man here at [facility] for rehab who d/c'd to home [...] resolved with abx. He has received his global marketing coordinator and site of BKA well healed. He [...] the prosthetic place on Thursday morning. His global marketing coordinator is applied at this visit and he is aware the global marketing coordinator is almaraz to wear to keep the swelling down. On exam, He states he is going home with , has walker and cane, and will be just fine . He denies any other complaints or concerns. Lung CTA in NAD. Oksana Lennon NP [address], [address], [place], [address], [facility] [employer] 11/11/2024 08:43:30
== END 2025-04-19 15:33 | disposition home or self-care (01) ==
LOC: HO.HKA 14:54
PROVIDERS: PCP Internal Medicine; Visit Provider Internal Medicine Nephrology
DX: I15.0 Renovascular hypertension (principal); N25.81 Secondary hyperparathyroidism of renal origin; N17.9 Acute kidney failure, unspecified; N18.9 Chronic kidney disease, unspecified; N18.4 Chronic kidney disease, stage 4 (severe); D63.1 Anemia in chronic kidney disease
CPT/HCPCS: 99214

== ENCOUNTER → 2025-04-19 14:53 | Outpatient (BNVA) | payer OTHER, SELFPAY | PROVIDERS: PCP Internal Medicine; Visit Provider Internal Medicine Nephrology | DX: E11.22 Type 2 diabetes mellitus with diabetic chronic kidney disease (principal); I15.0 Renovascular hypertension; N18.4 Chronic kidney disease, stage 4 (severe); N25.81 Secondary hyperparathyroidism of renal origin; N17.9 Acute kidney failure, unspecified; D63.1 Anemia in chronic kidney disease | CPT/HCPCS: 96372; 99212; Q5106 ==

== ENCOUNTER 2025-04-19 15:39 | Inpatient (IN) | payer OTHER, SELFPAY ==
--- NOTE | ~2025-04-19 | XR_ITS ---
CLINICAL HISTORY: chf 1 view chest x-ray Comparison: CT/SR - CT CHEST WO IV CON - 02/20/25 03:38 EDT CR - XR CHEST 1V - 02/20/25 02:00 EDT Findings: There is central vascular and interstitial prominence. Scattered ground-glass densities. Trace effusions are suspected. Cardiac and mediastinal contours are stable. No acute fracture. IMPRESSION: Findings suggest moderate interstitial edema. This document has been electronically signed by: Chano Jessica MD on 04/19/2025 22:20:41
--- NOTE | ~2025-04-19 | CT_ITS ---
PROCEDURE: CT GUIDED BIOPSY, KIDNEY CLINICAL INFORMATION: Renal failure. COMPARISON: None available. TECHNIQUE: Following explaining CT fluoroscopy guided renal biopsy procedure, benefits and risk, a written consent was obtained. Patient was placed in some of prone position and CT table. Preliminary imaging was obtained through the kidneys. An optimal skin site was selected along the right lower pole kidney and marked on the skin. The marked site was cleaned and draped in usual sterile manner. 1% lidocaine was injected puncture site. Through a small skin incision a 20-gauge guide needle was advanced from the skull skin incision to the lower pole right kidney. Coaxially a 20-gauge needle was advanced and a 3 pass kidney biopsy was performed. Tissue samples are collected was sent in alcohol solution to pathology. Postprocedure repeat CT imaging was obtained and reveals no hemorrhage. Sterile dressing applied post procedure. IV conscious sedation was utilized in the exam and patient monitored by our nurse and IR physician. This CT examination was performed using dose optimization techniques as appropriate, variously including the following: *Automated exposure control *Adjustment of mA and/or kV according to patient size (this includes techniques or standardized protocols for targeted exams where dose is matched to indication/reason for exam; i.e. extremities or head) *Use of iterative reconstruction technique DLP 364 mGy/cm. FINDINGS: On preliminary CT imaging of punctate calcification at small stones in both kidneys. There is a small cyst in mid to lower pole left kidney. There is no hydronephrosis seen. Partially visualized liver, spleen and gallbladder appear unremarkable. Right renal lower pole biopsy performed with a 16-gauge biopsy gun. 3 passes were performed. Post biopsy imaging revealed no perinephric or perirenal hematoma. CT/CT biopsy renal RT IMPRESSION: Successful CT fluoroscopy guided right renal lower pole core biopsy performed without immediate complications. Electronically signed by: Delgado Nina MD 04/24/2025 04:46 PM EDT
[2025-04-19 17:37] VITALS: BP 162/60; PULSE 75; RESP 16; TEMP 36.3; O2SAT 97; BMI 24.3
--- NOTE | 2025-04-19 17:38 | ED.GENADULT ---
HPI - General Adult General Chief complaint: Recheck/Abnormal Lab/Rx Stated complaint: Admitted for Kidney Time Seen by Provider: 04/19/25 18:46 Source: patient Mode of arrival: ambulatory Limitations: no limitations History of Present Illness ED Provider: HPI narrative: Patient's history of hypertension diabetes CKD not on dialysis still urinates good amount, paroxysmal AFib, pancytopenia, not on any anticoagulation, right BKA left metatarsal amputation been having increased shortness a breath for last 1 month got worse in last few days patient was seen here on 04/17 with hemoglobin of 6.6 and received 1 unit of PRBC patient comes back as still feeling short of breath and weak also patient has been having loose bowels for last 1 week to 3 times a day without significant abdominal pain no nausea/ vomiting Related Data Home Medications ?Medication ?Instructions ?Recorded ?Confirmed amlodipine 10 mg tablet 10 mg PO DAILY 12/19/24 03/09/25 aspirin 81 mg chewable tablet 1 tab PO DAILY 12/19/24 03/09/25 atorvastatin 80 mg tablet 80 mg PO DAILY 12/19/24 02/20/25 Held on 03/02/25. Instructions: Resume on 04/07/25. dapagliflozin propanediol 10 mg 10 mg PO DAILY 12/19/24 02/20/25 tablet (Farxiga) Held on 03/02/25. Instructions: Resume on 03/09/25. finasteride 5 mg tablet 5 mg PO DAILY 12/19/24 03/09/25 metoprolol succinate 100 mg 100 mg PO DAILY 12/19/24 03/09/25 tablet,extended release 24 hr sodium zirconium cyclosilicate 10 10 g PO DAILY 12/19/24 03/09/25 gram oral powder packet (Lokelma) tamsulosin 0.4 mg capsule 0.4 mg PO DAILY 12/19/24 03/09/25 umeclidinium 62.5 mcg/actuation 1 inh inhalation DAILY 12/19/24 03/09/25 blister powder for inhalation (Incruse Ellipta) hydralazine 25 mg tablet 50 mg PO TID 12/30/24 03/09/25 rivaroxaban 2.5 mg tablet (Xarelto) 2.5 mg PO BID 12/30/24 02/20/25 Held on 03/02/25. Instructions: Resume on 03/08/25. sodium bicarbonate 650 mg tablet 650 mg PO TID 12/30/24 03/09/25 Previous Rx's ?Medication ?Instructions ?Recorded acetaminophen 325 mg tablet 975 mg (3 x 325 mg) PO Q6H PRN 03/02/25 Pain, Mild 1-3,Fever,Headache #20 tabs alcohol swabs 1 pad topical QIDACHS #100 ea 03/02/25 blood sugar diagnostic (FreeStyle #100 ea 03/02/25 Lite Strips) blood-glucose meter (FreeStyle #1 ea 03/02/25 Lite Meter kit) daptomycin 500 mg intravenous 660 mg IV Q48H #1 ea 03/02/25 solution insulin lispro 100 unit/mL 0 sliding scale dose subcut 03/02/25 subcutaneous pen (Humalog KwikPen QIDACHS #15 mL (U-100) Insulin) lancets 28 gauge (FreeStyle #100 ea 03/02/25 Lancets) oxycodone 5 mg tablet 5 mg PO Q6H PRN Pain, Severe (Pain 03/02/25 Scale 7-10) #15 tabs pen needle, diabetic 32 gauge x #100 ea 03/02/25/ Allergies Allergy/AdvReac Type Severity Reaction Status Date / Time morphine Allergy Hallucinati Verified 04/19/25 17:39 ons bupropion AdvReac Hallucinati Verified 04/19/25 17:39 ons Review of Systems Review of Systems: Yes all other systems are reviewed and are negative PMFSH Past Medical History Medical History Anemia in chronic kidney disease (CKD) CKD (chronic kidney disease) stage 4, GFR 15-29 ml/min Hypertension Fluid overload Acute and chronic respiratory failure Sepsis Acute dehydration New onset of congestive heart failure Pneumonia Urinary urgency Urinary tract infection Urinary hesitancy Tubular adenoma of colon Smoker Seborrheic keratoses SND (sensorineural deafness) Right BKA infection Peripheral vascular disease WENDY (obstructive sleep apnea) Microalbuminuria Lung nodule seen on imaging study Lightheadedness Latent tuberculosis LVH (left ventricular hypertrophy) Abnormal PFTs Hyponatremia Hypertensive retinopathy of both eyes Hyperkalemia Hepatitis C Hearing loss of both ears Erectile dysfunction Cataract CKD (chronic kidney disease) Bladder wall thickening BPH (benign prostatic hyperplasia) Anticoagulated Anemia Peripheral neuropathy Diabetes mellitus, type II CVA (cerebral vascular accident) Adrenal nodule Kidney cysts Surgical History Hx of right BKA Family History Family History Brother Diabetes Mother Diabetes Father Diabetes Social History Social History Household Members: Spouse Housing: Apartment Do you presently have visiting nurse or other home services: Yes Alcohol intake: never Patient Tobacco Use Status: Never used Tobacco Advance Directives: No Advance Directives Information Provided: No service: No Physical Exam ED Vital Signs: Vital Signs - 24 hr 04/19/25 17:37 04/19/25 20:05 04/19/25 20:10 Temperature 97.4 F 98.3 F Pulse Rate 75 94 Respiratory Rate 16 Blood Pressure 162/60 H 162/60 H 143/67 H Pulse Oximetry 97 94 Oxygen Delivery Method Room Air Room Air BMI result Body Mass Index 24.3 Appearance: Alert. Oriented X3. No acute distress. Eyes: PERRLA, No Nystagmus ++pallor ENT: Pharynx normal. Oral Mucosa moist Neck: Normal inspection. Neck supple. CVS: Normal heart rate and rhythm. Pulses normal. Respiratory: No respiratory distress. Equal air entry bilateral, no wheezing bilateral fine rales at bases Abdomen: Soft and nontender. Bowel sounds are present, no mass palpable, no CVA tenderness Skin: Skin warm and dry. Normal skin color. Normal skin turgor. Extremities:L lower extremity edema. No calf tenderness,R BKA left metatarsal amputation Neuro: Oriented X 3. No motor deficit. No sensory deficit.No cerebellar signs , cranial nerves II-XII intact Course Course Course Narrative: 04/19/25 1739 MAHESH Holliday This is a Rapid Medical Examination (RME) performed by Elina Dinero PA-C in triage. Full HPI, ROS, assessment and treatment plan per primary provider in the Main ED. Hx: 65 yo M hx of COPD, chronic respiratory failure on O2, WENDY s/p right BKA, HTN, a AFib on Xarelto, type 2 diabetes here from nephrology for eval of diarrhea x1 week. he states dr. cottrell sent him in for concern/ management of UMAIR on CKD, anemia, and possible cdiff. PE/vitals: well appearing. Plan: labs, gi panel, cdiff testing Medications Administered Discontinued Medications Generic Name Dose Route Start Last Admin Trade Name Freq PRN Reason Stop Dose Admin Furosemide 80 mg 04/19/25 19:38 04/19/25 20:05 Furosemide 100 Mg/10 Ml Vial IVPUSH 04/19/25 19:39 80 mg ONCE ONE Administration Protocol Medical Decision Making Medical Decision Making [facility] Narrative: Patient with end-stage renal disease still making urine comes here for increased shortness a breath for a month clinically patient has CHF with rales at the bases with elevated BNP and chest x-ray showing pulmonary congestion patient is not on any diuretics will admit patient give IV diuresis patient has responded to diuresis felt much better during stay patient has had elevated troponin without any ischemic changes in the EKG or chest pain repeat troponin has improved. Differential Diagnosis Differential Diagnoses: The differential diagnosis associated with the presentation includes CHF/pneumonia/anemia/pneumothorax/pleural effusion/end-stage renal disease Admission/Observation Consideration of admission/observation: Escalation of care including admission/observation considered Consult Healthcare Provider Management of the patient was discussed with: Hospitalist Lab Data [facility] Lab Attestation statement: I reviewed the patient's lab results. 04/19/25 17:56 04/19/25 17:56 Labs: Lab Results 04/19/25 04/19/25 Range/Units 17:56 21:35 WBC 9.4 (4.8-10.8) X10*3/uL RBC 2.82 L D (4.60-5.80) X10*6/uL Hgb 8.1 L D (14.0-18.0) g/dl Hct 24.6 L D (42.0-52.0) % MCV 87.2 (80.0-98.0) fL MCH 28.7 (27.0-33.0) pg MCHC 32.9 (31.0-36.0) g/dl RDW 15.9 (11.0-16.0) % Plt Count 270 (160-400) X10*3/uL MPV 9.4 (9.4-12.4) fL Immature Gran % (Auto) 0.5 H (0.0-0.4) % Neut % (Auto) 72.3 (45-73) % Lymph % (Auto) 13.7 L (20-40) % [place] % (Auto) 7.2 (2-11) % Eos % (Auto) 5.7 H (0-4) % Baso % (Auto) 0.6 (0-2) % Lymph # (Auto) 1.3 (1.2-4.9) X10*3/uL [place] # (Auto) 0.7 (0.1-1.2) X10*3/uL Eos # (Auto) 0.5 H (0.0-0.4) X10*3/uL Baso # (Auto) 0.1 (0.0-0.2) X10*3/uL Abs Immat Gran (auto) 0.05 H (0.00-0.03) X10*3/uL Absolute Neuts (auto) 6.8 (2.0-8.3) x10*3/uL Absolute Nucleated RBC 0.000 (0.0-0.012) X10*3/uL Nucleated RBC % (auto) 0.0 (0.0-0.2) /100WBC Sodium 140 (135-145) mmol/L Potassium 5.0 (3.3-5.1) mmol/L Chloride 111 H (96-108) mmol/L Carbon Dioxide 18 L (22-29) mmol/L Anion Gap 16 (12-20) BUN 69 H (9-16) mg/dL Creatinine 8.25 H* (0.5-1.4) mg/dL Estim Creat Clear Calc 9.6 Estimated GFR 7 Random Glucose 111 (60-115) mg/dL Calcium 7.9 L (8.4-10.2) mg/dL Magnesium 1.9 (1.6-2.6) mg/dL Total Bilirubin 0.2 (0.0-1.0) mg/dL AST 23 (5-37) U/L ALT 14 (0-40) U/L Alkaline Phosphatase 79 (39-117) U/L Troponin I High Sens 6182.5 H* (<3.5-35.0) ng/L B-Natriuretic Peptide 3105 H (<100) pg/mL Total Protein 7.0 (6.5-8.0) g/dL Albumin 3.1 L (3.5-5.0) g/dL Lipase 9 (8-78) U/L Urine Color Yellow Urine Appearance Clear Urine pH 6.0 (5.0-9.0) Ur Specific [place] 1.015 (1.005-1.025) Urine Protein >=1000 (4+) H (Neg-Trace) mg/dL Urine Glucose (UA) 500 H (Negative) mg/dL Urine Ketones Negative (Negative) mg/dL Urine Blood Negative (Negative) Urine Nitrite Negative (Negative) Ur Leukocyte Esterase Negative (Negative) Urine RBC 0-2 (0-2) /HPF Urine WBC 0-5 (0-5) /HPF Ur Squamous Epith Cells 0-2 (0-2) /HPF Urine Bacteria None Seen (None Seen) Hyaline Casts 0-2 (0-2) /LPF Independent Interpretation I performed an independent interpretation of an: EKG and Plain X-Ray Interpretation: Normal sinus rhythm with ventricular rate of 90 beats per minute LVH no acute STT wave changes no acute ischemia Radiology Impression Discussion of test interpretation with radiology: I have reviewed the radiologist's reading. External Record Review External record reviewed: Inpatient record and Outpatient record Chronic Conditions Patient?s care impacted by: Diabetes and Hypertension Critical Care Time Critical Care Time Critical Care Time: Yes Total Critical Care Time: 35 Attestation: Time is exclusive of separately billable procedures. Time includes: direct patient care, patient reassessment, coordination of patient care, interpretation of data (laboratory data, pulse oximetry, arterial blood gases and chest xrays), review of patient's medical records, medical consultation and documentation of patient care. Procedures excluded from critical care time: central intravenous line placement and electrocardiography. Discharge Plan Discharge Clinical Impression: CKD (chronic kidney disease) stage 4, GFR 15-29 ml/min, Acute on chronic HFrEF (heart failure with reduced ejection fraction) Anemia in chronic kidney disease (CKD) Qualifiers: Chronic kidney disease stage: stage 4 (GFR 15-29) Qualified Code(s): N18.4 - Chronic kidney disease, stage 4 (severe) Patient Disposition: Admitted As Inpatient Interventions: Admission Worksheet (ED) Last Done: 04/20/25 00:01
[2025-04-19 18:01] LABS: MANUAL DIFF FLAG NO
[2025-04-19 18:04] LABS: Hematocrit 24.6 % (42.0-52.0); Hemoglobin 8.1 g/dl (14.0-18.0); Imm Gran Abs Auto 0.05 X10*3/uL (0.00-0.03); Imm Gran Pct Auto 0.5 % (0.0-0.4); Lymphocytes Absolute Auto 1.3 X10*3/uL (1.2-4.9); Mean Corpuscular HGB Conc 32.9 g/dl (31.0-36.0); Mean Corpuscular Hemoglobin 28.7 pg (27.0-33.0); Mean Corpuscular Volume 87.2 fL (80.0-98.0); NRBC Abs Auto 0.000 X10*3/uL (0.0-0.012); NRBC Pct Auto 0.0 /100WBC (0.0-0.2); Platelet Count 270 X10*3/uL (160-400); Red Blood Count 2.82 X10*6/uL (4.60-5.80); White Blood Count 9.4 X10*3/uL (4.8-10.8)
[2025-04-19 18:40] LABS: Alanine Aminotransferase 14 U/L (0-40); Albumin Level 3.1 g/dL (3.5-5.0); Alkaline Phosphatase 79 U/L (39-117); Anion Gap 16 (12-20); Aspartate Amino Transferase 23 U/L (5-37); Blood Urea Nitrogen 69 mg/dL (9-16); Calcium 7.9 mg/dL (8.4-10.2); Carbon Dioxide 18 mmol/L (22-29); Chloride 111 mmol/L (96-108); Creatinine Clr Calc Pharmacy 9.6; Estimated Glomerular Filt Rate 7; Lipase 9 U/L (8-78); Magnesium 1.9 mg/dL (1.6-2.6); Potassium 5.0 mmol/L (3.3-5.1); Sodium 140 mmol/L (135-145); Total Protein 7.0 g/dL (6.5-8.0)
--- NOTE | 2025-04-19 19:05 | PC.NURSE ---
this nurse attempted to obtain IV access x 2 - pt requests US placement
[2025-04-19 20:05] VITALS: BP 162/60
[2025-04-19] MEDS: Furosemide 100 MG/10 ML VIAL 80 MG IVPUSH (20:05)
[2025-04-19 20:10] VITALS: BP 143/67; PULSE 94; TEMP 36.8; O2SAT 94
--- NOTE | 2025-04-19 21:13 | ECG_ITS ---
Test Reason : CHF Blood Pressure : */* mmHG Vent. Rate : 90 BPM Atrial Rate : 90 BPM P-R Int : 176 ms QRS Dur : 128 ms QT Int : 380 ms P-R-T Axes : 47 53 125 degrees QTcB Int : 464 ms Normal sinus rhythm Left ventricular hypertrophy with QRS widening and repolarization abnormality ( Sokolow-Moore , Winifred product , Romhilt-Suárez ) Abnormal ECG When compared with ECG of 20-Feb-2025 01:18, Sinus rhythm has replaced Atrial fibrillation Nonspecific T wave abnormality now evident in Inferior leads T wave inversion now evident in Lateral leads Referred By: Tino Villavicencio Electronically Signed By: DOUGIE CHURCH
[2025-04-19 21:43] LABS: Appearance Urine Clear; Glucose Urine UA 500 mg/dL (Negative); PH 6.0 (5.0-9.0); Specific Gravity - Urine 1.015 (1.005-1.025); UMIC TRIGGER UACC YES
[2025-04-19 21:44] LABS: B Type Natriuretic Peptide 3105 pg/mL (<100)
[2025-04-19 22:02] LABS: Troponin-I High Sensitivity 6182.5 ng/L (<3.5-35.0)
--- NOTE | 2025-04-19 22:23 | PM.IMHP ---
History of Present Illness Date of Service: 04/19/25 Attending physician on admission: Leticia Mc Chief Complaint: SOB, diarrhea, anemia, sent by Dr Ruiz Patient is a 65-year-old male with a past medical history significant for mild COPD, CKD [address] Ruiz, anemia of chronic disease receiving EPO, HTN, T2 dm (PRN insulin), s/p right BKA, cardiomyopathy, paroxysmal AFib (currently holding Xarelto), HFrEF, osteomyelitis/septic arthritis, hyperparathyroid, and WENDY, who presented to the ED per recommendation of Dr. Ruiz due to shortness of breath for the past month, diarrhea for the past 2 weeks and anemia. He received Procrit today with Dr. Ruiz. Hemoglobin 04/17 was 6.6, now 8.1 today. The patient denies any visible bleeding sources. He has been having diarrhea at least 3 times a day without any blood or significant odor. Garcia he also describes shortness of breath for the past month, worse with exertion. It was discussed with Dr. Ruiz that the patient may need a renal biopsy while inpatient. Review of Systems Constitutional: Constitutional: Denies body ache(s), Denies chills, Denies fatigue, Denies fever(s) and Denies headache(s) Eyes: Eyes: Denies change in vision ENT: Denies headache(s), Denies nasal congestion and Denies sore throat Cardiovascular: Cardiovascular: Denies chest pain, Denies rapid heart rate, Denies leg edema, Denies lightheadedness and Reports dyspnea Respiratory: Respiratory: Denies chest congestion, Denies cough, Reports dyspnea and Denies wheezing Gastrointestinal: Gastrointestinal: Denies abdominal pain, Reports diarrhea, Denies nausea and Denies vomiting Genitourinary: Genitourinary: Denies dysuria, Reports urinary frequency and Denies urinary urgency Musculoskeletal: Musculoskeletal: Denies myalgias Integumentary/Breasts: Skin/Breast: Denies rash Neurologic: Denies confusion and Denies headache(s) Psychiatric: Psychiatric: Denies confusion Endocrine: Endocrine: Denies fatigue Hematologic/Lymphatic: Hematologic/Lymphatic: Denies easy bleeding and Denies easy bruising Allergic/Immunologic: Allergic/Immunologic: Denies wheezing [facility] Medical History Anemia in chronic kidney disease (CKD) CKD (chronic kidney disease) stage 4, GFR 15-29 ml/min Hypertension Fluid overload Acute and chronic respiratory failure Sepsis Acute dehydration New onset of congestive heart failure Pneumonia Urinary urgency Urinary tract infection Urinary hesitancy Tubular adenoma of colon Smoker Seborrheic keratoses SND (sensorineural deafness) Right BKA infection Peripheral vascular disease WENDY (obstructive sleep apnea) Microalbuminuria Lung nodule seen on imaging study Lightheadedness Latent tuberculosis LVH (left ventricular hypertrophy) Abnormal PFTs Hyponatremia Hypertensive retinopathy of both eyes Hyperkalemia Hepatitis C Hearing loss of both ears Erectile dysfunction Cataract CKD (chronic kidney disease) Bladder wall thickening BPH (benign prostatic hyperplasia) Anticoagulated Anemia Peripheral neuropathy Diabetes mellitus, type II CVA (cerebral vascular accident) Adrenal nodule Kidney cysts Functional capacity: independent ambulation Family History Brother Diabetes Mother Diabetes Father Diabetes Surgical History Hx of right BKA Social History Household Members: Spouse Housing: Apartment Do you presently have visiting nurse or other home services: Yes Alcohol intake: never Patient Tobacco Use Status: Never used Tobacco Advance Directives: No Advance Directives Information Provided: No service: No Narrative: No smoking, alcohol or drug use Meds Allergies Allergy/AdvReac Type Severity Reaction Status Date / Time morphine Allergy Hallucinati Verified 04/19/25 17:39 ons bupropion AdvReac Hallucinati Verified 04/19/25 17:39 ons Home Medications ?Medication ?Instructions ?Recorded ?Confirmed ?Last Taken ?Type amlodipine 10 mg tablet 10 mg PO DAILY 12/19/24 03/09/25 02/19/25 09:00 History aspirin 81 mg chewable tablet 1 tab PO DAILY 12/19/24 03/09/25 02/19/25 09:00 History atorvastatin 80 mg tablet 80 mg PO DAILY 12/19/24 02/20/25 02/19/25 09:00 History Held on 03/02/25. Instructions: Resume on 04/07/25. dapagliflozin propanediol 10 mg 10 mg PO DAILY 12/19/24 02/20/25 02/19/25 09:00 History tablet (Farxiga) Held on 03/02/25. Instructions: Resume on 03/09/25. finasteride 5 mg tablet 5 mg PO DAILY 12/19/24 03/09/25 02/19/25 09:00 History metoprolol succinate 100 mg 100 mg PO DAILY 12/19/24 03/09/25 02/19/25 09:00 History tablet,extended release 24 hr sodium zirconium cyclosilicate 10 10 g PO DAILY 12/19/24 03/09/25 02/19/25 09:00 History gram oral powder packet (Lokelma) tamsulosin 0.4 mg capsule 0.4 mg PO DAILY 12/19/24 03/09/25 02/19/25 09:00 History umeclidinium 62.5 mcg/actuation 1 inh inhalation DAILY 12/19/24 03/09/25 02/19/25 09:00 History blister powder for inhalation (Incruse Ellipta) hydralazine 25 mg tablet 50 mg PO TID 12/30/24 03/09/25 02/19/25 09:00 History rivaroxaban 2.5 mg tablet (Xarelto) 2.5 mg PO BID 12/30/24 02/20/25 02/19/25 History Held on 03/02/25. Instructions: Resume on 03/08/25. sodium bicarbonate 650 mg tablet 650 mg PO TID 12/30/24 03/09/25 02/19/25 09:00 History Physical Exam Vital Signs and Narrative: Vital Signs: Last Vital Signs Temp 98.3 F 04/19/25 20:10 Pulse 94 04/19/25 20:10 Resp 16 04/19/25 17:37 BP 143/67 H 04/19/25 20:10 Pulse Ox 94 04/19/25 20:10 O2 Del Method Room Air 04/19/25 20:10 BMI result Body Mass Index 24.3 General: AOx3, no acute distress Resp: crackles lower lung bases, no wheezing CVS: S1, S2, RRR GI: +BS, NT, no distention Skin: Warm, dry Neuro: Cranial nerves II-XII grossly intact bilaterally. Motor grossly intact bilaterally Extremities: No LE edema. wound without sings of active infection L foot Psych: Appropriate affect Const: General: No confusion Orientation/consciousness: No confusion Neuro: General: No confusion Results Labs 04/19/25 17:56 04/19/25 17:56 Labs: Laboratory Results - last 24 hr 04/19/25 04/19/25 17:56 21:35 MCV 87.2 MCH 28.7 MCHC 32.9 RDW 15.9 Plt Count 270 MPV 9.4 Immature Gran % (Auto) 0.5 H Neut % (Auto) 72.3 Lymph % (Auto) 13.[address] [place] % (Auto) 7.2 Eos % (Auto) 5.7 H Baso % (Auto) 0.6 Lymph # (Auto) 1.3 [place] # (Auto) 0.7 Eos # (Auto) 0.5 H Baso # (Auto) 0.1 Abs Immat Gran (auto) 0.05 H Absolute Neuts (auto) 6.8 Absolute Nucleated RBC 0.000 Nucleated RBC % (auto) 0.0 Anion Gap 16 Estim Creat Clear Calc 9.6 Estimated GFR 7 Random Glucose 111 Calcium 7.9 L Magnesium 1.9 Total Bilirubin 0.2 AST 23 ALT 14 Alkaline Phosphatase 79 B-Natriuretic Peptide 3105 H Total Protein 7.0 Albumin 3.1 L Lipase 9 Urine Color Yellow Urine Appearance Clear Urine pH 6.0 Ur Specific [place] 1.015 Urine Protein >=1000 (4+) H Urine Glucose (UA) 500 H Urine Ketones Negative Urine Blood Negative Urine Nitrite Negative Ur Leukocyte Esterase Negative Urine RBC 0-2 Urine WBC 0-5 Ur Squamous Epith Cells 0-2 Urine Bacteria None Seen Hyaline Casts 0-2 Assessment and Plan (1) Acute kidney injury superimposed on CKD: Status: Acute (2) Acute on chronic HFrEF (heart failure with reduced ejection fraction): Status: Acute (3) Pulmonary edema: Status: Acute (4) Anemia in chronic kidney disease (CKD): Qualifiers: Chronic kidney disease stage: stage 4 (GFR 15-29) Qualified Code(s): N18.4 - Chronic kidney disease, stage 4 (severe); D63.1 - Anemia in chronic kidney disease Status: Acute (5) Hyperchloremic metabolic acidosis: Status: Acute (6) NSTEMI (non-ST elevated myocardial infarction): Status: Acute (7) Diarrhea: Status: Acute Plan Patient is a 65-year-old male with a past medical history significant for mild COPD, CKD [address] Ruiz, anemia of chronic disease receiving EPO, HTN, T2 dm (PRN insulin), s/p right BKA, cardiomyopathy, paroxysmal AFib (currently holding Xarelto), HFrEF, osteomyelitis/septic arthritis, hyperparathyroid, and WENDY, who presented to the ED per recommendation of Dr. Ruiz due to shortness of breath for the past month, diarrhea for the past 2 weeks and anemia. UMAIR on CKD - creatinine 8.25 - nephrology consult - IR consult in a.m. for renal bx per Dr Ruiz's office note - avoid nephrotoxins - monitor BMP Acute on chronic HFrEF exacerbation, pulmonary edema - shortness of breath x1 mo - BNP 3105 - no leukocytosis, vitals stable, afebrile, no evidence of infection - echo 02/26 EF 40-45% - chest x-ray with moderate interstitial edema - given 80 mg IV Lasix in ED, re-evaluate diuretics in the morning - monitor CBC and BMP Anemia of chronic disease - hemoglobin 8.1, improved from 6.6 2 days ago - hematocrit 24.4, improved from 20.0 2 days ago - received Procrit today by Dr. Ruiz - add occult blood stool to stool samples ordered - monitor CBC - no need for blood transfusion at this time Hyperchloremic metabolic acidosis - secondary to UMAIR - monitor BMP elevated troponin, NSTEMI - likely elevated secondary to demand, patient is not experiencing any chest pain - repeat troponin ordered - anticoagulation held due to anemia - EKG nonischemic - monitor on telemetry Diarrhea - C diff and GI panel ordered - monitor CBC Mild COPD, no acute exacerbation - continue home meds HTN - continue home meds Type 2 diabetes - diabetic diet/low potassium diet - sliding scale insulin Paroxysmal AFib - EKG without AFib - holding Xarelto and anticoagulants due to anemia - rate controlled currently would L foot - followed by wound care but pt reports he has not been compliant - wound care consult Med rec pending Full code VTE prophylaxis: Pneumoboots Patient with UMAIR on CKD complicated by pulmonary edema and NSTEMI, requiring admission for at least 2 midnights stay for IV diuresis and monitoring. Quality Stroke Does the patient have a stroke diagnosis?: No VTE Prior VTE?: No VTE Risk Level:: Medical - moderate - high VTE Device Contraindication: N/A - Device Ordered VTE Drug Contraindication: Treatment Not Indicated
[2025-04-19 22:25] VITALS: BP 143/66; PULSE 89; TEMP 37.1; O2SAT 95
[2025-04-20] VITALS (9 sets, daily range): BP systolic 131–173; BP diastolic 59–80; PULSE 76–115; RESP 16–20; TEMP 36.6–37.1; O2SAT 92–100; BMI 22.5
[2025-04-20 00:45] LABS: Troponin-I High Sensitivity 4915.6 ng/L (<3.5-35.0)
[2025-04-20] MEDS: 0.9 % Sodium Chloride Flush 3 ML SYRINGE IVFLUSH ×3 (01:43→21:04)
--- NOTE | 2025-04-20 05:14 | HO.SKINPHOTO ---
Location:Left foot Category:amputation left great toe Stage: Length: Width: Depth: cm Location: Category: Stage: Length: Width: Depth: cm Location: Category: Stage: Length: Width: Depth: cm Location: Category: Stage: Length: Width: Depth: cm
--- NOTE | 2025-04-20 05:27 | HO.SKINPHOTO ---
Location: Left lateral foot Category:Diabetic ulcer Stage: Length: Width: Depth: cm
[2025-04-20 07:11] LABS: Glucose, Whole Blood 89 mg/dL (60-115)
--- NOTE | 2025-04-20 08:18 | PHA.MEDREC ---
Addendum entered by Christine Grimes, [facility] 04/20/25 08:21: Brandon Solis notified the med rec is complete and also mentioned xarelto last fill Original Note: Pharmacy Consult ? Medication Reconciliation Pharmacy has completed the medication reconciliation Spoke with patient in 473. Patient was able to confirm medications when I said the name out loud. Patient states he is still taking xarelto, however it looks like it may have been held? Called [facility] and the xarelto was last picked up on 12/15/24 for a 30 day supply. .
--- NOTE | 2025-04-20 08:47 | PM.CNNEP ---
History of Present Illness Reason for Consult Consult date: 04/20/25 Chief Complaint Chief complaint: dyspnea History of Present Illness Narrative: Patient with progressive renal disease likely secondary to diabetes, hypertension and vascular disease, COPD, chronic respiratory failure on O2, WENDY s/p right BKA, HTN, a AFib on Xarelto, type 2 diabetes, recently s/p left great toe amputation, had recent UMAIR on CKD, in February secondary to acute osteomyelitis/septic arthritis L foot, lytic changes at the area suggestive of OM; also has a component of renal disease progression, now has advanced kidney disease. He was seen by Dr Ruiz in the nephrology office on 04/19 and advised to go to the ED to be admitted for evaluation of anemia (Hgb 6.6), diarrhea concerning for c.diff, and a renal biopsy. Patient reports he is making urine- 600ml/last 24 hours per chart. Denies chest pain, shortness of breath, abdominal pain, flank pain, urinary symptoms, nausea, vomiting, diarrhea (reports has resolved), pruritus, muscle cramping, brain fog/confusion. Reports he is tired but did not get much sleep overnight. Review of Systems Constitutional: Reports fatigue Cardiovascular: Denies chest pain, Denies leg edema, Denies lightheadedness and Denies dyspnea Respiratory: Denies dyspnea Gastrointestinal: Denies abdominal pain, Denies diarrhea, Denies nausea and Denies vomiting Genitourinary: Denies hematuria, Denies oliguria, Denies dysuria and Denies flank pain Musculoskeletal: Denies back pain, Denies arthralgias, Denies joint swelling and Denies muscle cramps Skin/Breast: Denies rash Denies tremor(s) Endocrine: Reports fatigue PMFSH Past Medical History Medical History Anemia in chronic kidney disease (CKD) CKD (chronic kidney disease) stage 4, GFR 15-29 ml/min Hypertension Fluid overload Acute and chronic respiratory failure Sepsis Acute dehydration New onset of congestive heart failure Pneumonia Urinary urgency Urinary tract infection Urinary hesitancy Tubular adenoma of colon Smoker Seborrheic keratoses SND (sensorineural deafness) Right BKA infection Peripheral vascular disease WENDY (obstructive sleep apnea) Microalbuminuria Lung nodule seen on imaging study Lightheadedness Latent tuberculosis LVH (left ventricular hypertrophy) Abnormal PFTs Hyponatremia Hypertensive retinopathy of both eyes Hyperkalemia Hepatitis C Hearing loss of both ears Erectile dysfunction Cataract CKD (chronic kidney disease) Bladder wall thickening BPH (benign prostatic hyperplasia) Anticoagulated Anemia Peripheral neuropathy Diabetes mellitus, type II CVA (cerebral vascular accident) Adrenal nodule Kidney cysts Family History Family History Brother Diabetes Mother Diabetes Father Diabetes Surgical History Surgical History Hx of right BKA Social History Social History Household Members: Spouse Housing: Apartment Do you presently have visiting nurse or other home services: Yes Alcohol intake: never Patient Tobacco Use Status: Former Tobacco user Tobacco use type: Cigarette e-Cigarette/Vaping Use: Former Use service: No Meds Allergies Allergy/AdvReac Type Severity Reaction Status Date / Time morphine Allergy Hallucinati Verified 04/19/25 17:39 ons bupropion AdvReac Hallucinati Verified 04/19/25 17:39 ons Active Medications: Current Medications Acetaminophen (Acetaminophen 325 Mg Tablet) 975 mg PO Q6H PRN PRN Reason: Pain, Mild 1-3,fever,headache Amlodipine Besylate (Amlodipine Besylate 10 Mg Tablet) 10 mg PO DAILY [facility]; Protocol Atorvastatin Calcium (Atorvastatin Calcium 10 Mg Tablet) 10 mg PO DAILY [facility] Calcium Carbonate (Calcium Carbonate 750 Mg Tab.Chew) 750 mg PO Q4H PRN PRN Reason: Heartburn Dextrose (Dextrose 50 % 25 Gm/50 Ml Syringe) 25 gm IVPUSH Q15M PRN; Protocol PRN Reason: per Hypoglycemia Standing Ord. Finasteride (Finasteride 5 Mg Tablet) 5 mg PO DAILY [facility] Glucose (Glucose Gel 15 Gm Gel..Gram.) 15 gm PO Q15M PRN; Protocol PRN Reason: per Hypoglycemia Standing Ord. Hydralazine HCl (Hydralazine Hcl 50 Mg Tablet) 50 mg PO TID [facility]; Protocol Hydromorphone HCl (Hydromorphone Hcl 0.5 Mg/0.5 Ml Syringe) 0.25 mg IVPUSH Q4H PRN; Protocol PRN Reason: Pain, Severe (Pain Scale 7-10) Last Admin: 04/20/25 01:43 Dose: 0.25 mg Insulin Human Lispro (Insulin Lispro 100 Unit/Ml 3 Ml Vial) 0 unit SUBCUT QIDACHS [facility]; Protocol Last Admin: 04/20/25 07:50 Dose: Not Given Magnesium Hydroxide (Milk Of Magnesia 30 Ml Oral.Susp) 30 ml PO DAILY PRN PRN Reason: Constipation Melatonin (Melatonin 3 Mg Tablet) 6 mg PO BEDTIME PRN PRN Reason: Insomnia Metoprolol Succinate (Metoprolol Succinate Er 100 Mg Tab.Er.24h) 100 mg PO DAILY [facility]; Protocol Non-Formulary Medication (Umeclidinium [Incruse Ellipta]) 1 inhalation INHALE DAILY [facility] Ondansetron HCl (Ondansetron Hcl 4 Mg/2 Ml Vial) 4 mg IVPUSH Q8H PRN PRN Reason: Nausea and Vomiting Oxycodone HCl (Oxycodone Hcl Immed Release 5 Mg Tablet) 5 mg PO Q6H PRN PRN Reason: Pain, Moderate(Pain Scale 4-6) Oxycodone HCl (Oxycodone Hcl Immed Release 5 Mg Tablet) 5 mg PO Q6H PRN PRN Reason: Pain, Severe (Pain Scale 7-10) Sodium Bicarbonate (Sodium Bicarbonate 650 Mg Tablet) 650 mg PO TID [facility] Sodium Chloride (0.9 % Sodium Chloride Flush 3 Ml Syringe) 3 ml IVFLUSH QSHIFT [facility] Last Admin: 04/20/25 01:43 Dose: 3 ml Sodium Zirconium Cyclosilicate (Sodium Zirconium Cyclosilicate 10 Gm Powd.Pack) 10 gm PO DAILY [facility] Tamsulosin HCl (Tamsulosin Hcl 0.4 Mg Capsule) 0.4 mg PO DAILY [facility] Home Medications ?Medication ?Instructions ?Recorded ?Confirmed ?Last Taken ?Type amlodipine 10 mg tablet 10 mg PO DAILY 12/19/24 04/20/25 02/19/25 09:00 History aspirin 81 mg chewable tablet 1 tab PO DAILY 12/19/24 04/20/25 02/19/25 09:00 History dapagliflozin propanediol 10 mg 10 mg PO DAILY 12/19/24 04/20/25 02/19/25 09:00 History tablet (Farxiga) Held on 03/02/25. Instructions: Resume on 03/09/25. finasteride 5 mg tablet 5 mg PO DAILY 12/19/24 04/20/25 02/19/25 09:00 History metoprolol succinate 100 mg 100 mg PO DAILY 12/19/24 04/20/25 02/19/25 09:00 History tablet,extended release 24 hr sodium zirconium cyclosilicate 10 10 g PO DAILY 12/19/24 04/20/25 02/19/25 09:00 History gram oral powder packet (Lokelma) tamsulosin 0.4 mg capsule 0.4 mg PO DAILY 12/19/24 04/20/25 02/19/25 09:00 History umeclidinium 62.5 mcg/actuation 1 inh inhalation DAILY 12/19/24 04/20/25 02/19/25 09:00 History blister powder for inhalation (Incruse Ellipta) hydralazine 25 mg tablet 50 mg PO TID 12/30/24 04/20/25 02/19/25 09:00 History rivaroxaban 2.5 mg tablet (Xarelto) 2.5 mg PO BID 12/30/24 04/20/25 02/19/25 History Held on 03/02/25. Instructions: Resume on 03/08/25. sodium bicarbonate 650 mg tablet 650 mg PO TID 12/30/24 04/20/25 02/19/25 09:00 History atorvastatin 10 mg tablet 10 mg PO DAILY 04/20/25 04/20/25 Unknown History Physical Exam Vital Signs: Last Vital Signs Temp 98.4 F 04/20/25 07:11 Pulse 91 04/20/25 07:11 Resp 20 04/20/25 07:11 BP 170/80 H 04/20/25 07:11 Pulse Ox 94 04/20/25 07:11 O2 Del Method Room Air 04/20/25 07:11 BMI result Body Mass Index 22.5 Const General: no acute distress, alert and awake Resp Effort & Inspection: normal respiratory effort and able to speak in complete sentences Auscultation: clear to auscultation bilaterally Cardio Rate: regular rate Rhythm: regular rhythm Heart sounds: S1 normal heart sound present and S2 normal heart sound present GI Palpation (GI): Soft to palpation and nontender General: Yes no CVA tenderness Back/Spine/Pelvis Back: no CVA tenderness Skin Rashes: no rashes Neuro Other: no asterixis, no tremor. Extrem General: Yes edema (trace LLE edema (right BKA). ) Results Lab Results 04/20/25 08:40 04/20/25 08:40 Lab results: Chemistry 04/19/25 17:56 Sodium 140 Potassium 5.0 Carbon Dioxide 18 L BUN 69 H Creatinine 8.25 H* Calcium 7.9 L Hematology 04/19/25 17:56 WBC 9.4 Hgb 8.1 L D Plt Count 270 Urinalysis 04/19/25 21:35 Urine Color Yellow Urine Appearance Clear Urine pH 6.0 Ur Specific [place] 1.015 Urine Protein >=1000 (4+) H Urine Glucose (UA) 500 H Urine Ketones Negative Urine Blood Negative Urine Nitrite Negative Ur Leukocyte Esterase Negative Urine RBC 0-2 Urine WBC 0-5 Ur Squamous Epith Cells 0-2 Hyaline Casts 0-2 Assessment and Plan (1) Acute kidney failure: Qualifiers: Acute renal failure type: unspecified Qualified Code(s): N17.9 - Acute kidney failure, unspecified Status: Acute (2) Anemia in chronic kidney disease (CKD): Qualifiers: Chronic kidney disease stage: stage 4 (GFR 15-29) Qualified Code(s): N18.4 - Chronic kidney disease, stage 4 (severe); D63.1 - Anemia in chronic kidney disease Status: Acute (3) Hypertension: Qualifiers: Hypertension type: renovascular hypertension Qualified Code(s): I15.0 - Renovascular hypertension Status: Acute Plan Advanced kidney disease from diabetes, hypertension and vascular disease, progressive CKD with recent UMAIR due to ATN with component of CKD progression. blood pressures suboptimal new this a.m., continue metoprolol 100mg PO daily, amlodipine 10mg daily. Increase hydralazine to 75mg PO TID. Add imdur 30mg daily. troponins elevated- recommend repeat ECG and cardiology consult, at risk for cardiac morbidity due to advanced CKD. Recommend workup for bleeding due to precipitous drop in H&H including stool for occult blood. metabolic acidosis- continue sodium bicarb 650mg PO TID chronic hyperkalemia- continue lokelma 10gms PO daily plan for urgent renal biopsy as inpatient to better evaluate underlying cause of renal failure and prognosis. Will get 24 hour urine creatinine clearance. No immediate indication for renal replacement at this time. Will continue to follow closely. Recommend daily renal function and electrolyte studies Recommend regular blood pressure checks, close I&O monitoring Recommend avoiding nephrotoxins Continue supportive care Discussed with Dr Ruiz, Dr Kuhn. Procedures Date of Service Date of Service: 04/20/25
[2025-04-20 09:01] LABS: Hematocrit 24.8 % (42.0-52.0); Hemoglobin 8.1 g/dl (14.0-18.0); Mean Corpuscular HGB Conc 32.7 g/dl (31.0-36.0); Mean Corpuscular Hemoglobin 28.7 pg (27.0-33.0); Mean Corpuscular Volume 87.9 fL (80.0-98.0); NRBC Abs Auto 0.000 X10*3/uL (0.0-0.012); NRBC Pct Auto 0.0 /100WBC (0.0-0.2); Platelet Count 260 X10*3/uL (160-400); Red Blood Count 2.82 X10*6/uL (4.60-5.80); White Blood Count 8.7 X10*3/uL (4.8-10.8)
[2025-04-20] MEDS: Metoprolol Succinate ER 100 MG TAB.ER.24H PO (09:01)
[2025-04-20] MEDS: oxyCODONE HCl Immed Release 5 MG TABLET PO ×2 (09:17→21:01)
[2025-04-20 09:20] LABS: Anion Gap 16 (12-20); Blood Urea Nitrogen 67 mg/dL (9-16); Calcium 7.8 mg/dL (8.4-10.2); Carbon Dioxide 15 mmol/L (22-29); Chloride 111 mmol/L (96-108); Creatinine Clr Calc Pharmacy 9.4; Estimated Glomerular Filt Rate 7; Magnesium 1.8 mg/dL (1.6-2.6); Potassium 4.6 mmol/L (3.3-5.1); Sodium 137 mmol/L (135-145)
[2025-04-20 10:32] LABS: Parathyroid Hormone Intact 342.7 pg/mL (8.7-77.1)
[2025-04-20 11:01] LABS: Glucose, Whole Blood 115 mg/dL (60-115)
[2025-04-20] MEDS: Tiotropium Bromide 2.5 mcg 1 PUFF/2.5 MCG MIST.INHAL 2 PUFF INHALE (11:42)
--- NOTE | 2025-04-20 12:06 | MHC.CM.PN ---
Addendum entered by Geraldine Rosario RN 04/20/25 16:02: CM RECEIVED MESSAGE FROM [facility], PT HAS 28.5 [employer] HRS THROUGH [employer], GOES TO ADULT DAY PROGRAM M-F AND PER [facility] ACTIVE W/SN/PT. 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 PT'S HCP ON FILE FROM PREVIOUS ADMIT IN [facility] AND HARD COPY PLACED IN CHART, PCP VERIFIED DR. BUITRAGO.
--- NOTE | 2025-04-20 13:48 | HO.WOUND ---
Wound Consult: Initial 65yr male old? admitted to [facility] [place] [facility] on 04/19/25 - See progress notes and H&P for detailed history.? Wound consult placed for Left Foot.? Patient agreeable to assessment and photo documentation.? Left Foot Etiology: ??Nonhealing surgical site - Diabetic related Present on Admission Wound Bed: dried wound bed Drainage / Odor: Olson yellow Edges: ? unattached Liss wound: hyperpigmentation ? No Induration, Fluctuance or Warmth noted Pain: pain reported Goals of Treatment: ? Durafiber AG Recommendations: 1. Turn and Reposition every 2 hours and as needed for patient comfort.? Use pillows or wedges to support off loading positions. 2. Off Load all bony prominences with use of pillows and heel boots if needed.? Apply Preventative foams where needed. ? 3. Monitor for incontinence and moisture control, use barrier creams when needed for prevention and treatment. 4. Provide adequate and supplemental nutrition.? 5. Order low air loss mattress. 6. When applicable maintain blood glucose levels per Providers order. Left Foot - Elevate foot off of bed with pillows - Float heel. Cleanse with NS moist gauze, pat dry. Apply skin prep, lightly pack wound bed with Durafiber AG, cover with dry gauze and Abd pad followed by gauze. Change every other day. Re-consult wound care Nurse for wound deterioration or wound changes.
[2025-04-20] MEDS: Furosemide 100 MG/10 ML VIAL 80 MG IVPUSH (14:59)
[2025-04-20 16:14] LABS: Glucose, Whole Blood 108 mg/dL (60-115)
[2025-04-20] MEDS: Sevelamer Carbonate Tablet 800 MG TABLET PO (17:27)
--- NOTE | 2025-04-20 19:18 | P.PNIM_ITS ---
Subjective Subjective Date of Service: 04/20/25 Interval History: Pt seen and evaluated in his room where he is resting comfortably in bed Denies any acute medical complaints No chest pain or pressure Denies lightheadedness or dizziness No reports of active bleeding Denies shortness or breath or difficulty breathing No abdominal pain Denies nausea, vomiting, diarrhea Review of Systems Review of Systems: Yes all other systems are reviewed and are negative Physical Exam 2 Exam: Exam: General: AOx3, no acute distress. Resting comfortably in bed Resp: CTA bilaterally, diminished CVS: S1, S2, RRR GI: +BS, NT, no distention Skin: Warm, dry Neuro: Cranial nerves II-XII grossly intact bilaterally. Motor grossly intact bilaterally Extremities: Trace left lower leg edema. Left foot covered in clean bandages Psych: Appropriate affect Vital Signs: Vital Signs: Last Vital Signs Temp 98.5 F 04/20/25 14:57 Pulse 82 04/20/25 14:57 Resp 18 04/20/25 14:57 BP 131/63 04/20/25 14:57 Pulse Ox 95 04/20/25 14:57 O2 Del Method Room Air 04/20/25 14:57 BMI result Body Mass Index 22.5 Objective Data Active Medications Acetaminophen (Acetaminophen 325 Mg Tablet) 975 mg PO Q6H PRN PRN Reason: Pain, Mild 1-3,fever,headache Amlodipine Besylate (Amlodipine Besylate 10 Mg Tablet) 10 mg PO DAILY [facility]; Protocol Last Admin: 04/20/25 09:01 Dose: 10 mg Documented By: MAGALYS Atorvastatin Calcium (Atorvastatin Calcium 10 Mg Tablet) 10 mg PO DAILY [facility] Last Admin: 04/20/25 09:02 Dose: 10 mg Documented By: MAGALYS Calcium Carbonate (Calcium Carbonate 750 Mg Tab.Chew) 750 mg PO Q4H PRN PRN Reason: Heartburn Dextrose (Dextrose 50 % 25 Gm/50 Ml Syringe) 25 gm IVPUSH Q15M PRN; Protocol PRN Reason: per Hypoglycemia Standing Ord. Finasteride (Finasteride 5 Mg Tablet) 5 mg PO DAILY [facility] Last Admin: 04/20/25 09:01 Dose: 5 mg Documented By: MAGALYS Glucose (Glucose Gel 15 Gm Gel..Gram.) 15 gm PO Q15M PRN; Protocol PRN Reason: per Hypoglycemia Standing Ord. Hydralazine HCl (Hydralazine Hcl 25 Mg Tablet) 75 mg PO TID [facility]; Protocol Last Admin: 04/20/25 14:55 Dose: 75 mg Documented By: MAGALYS Hydromorphone HCl (Hydromorphone Hcl 0.5 Mg/0.5 Ml Syringe) 0.25 mg IVPUSH Q4H PRN; Protocol PRN Reason: Pain, Severe (Pain Scale 7-10) Last Admin: 04/20/25 01:43 Dose: 0.25 mg Documented By: DANNY Insulin Human Lispro (Insulin Lispro 100 Unit/Ml 3 Ml Vial) 0 unit SUBCUT QIDACHS [facility]; Protocol Last Admin: 04/20/25 16:12 Dose: Not Given Documented By: MAGALYS Non-Admin Reason: No Insulin Coverage Isosorbide Mononitrate (Isosorbide Mononitrate 30 Mg Tab.Er.24h) 30 mg PO DAILY [facility]; Protocol Last Admin: 04/20/25 14:55 Dose: 30 mg Documented By: MAGALYS Magnesium Hydroxide (Milk Of Magnesia 30 Ml Oral.Susp) 30 ml PO DAILY PRN PRN Reason: Constipation Melatonin (Melatonin 3 Mg Tablet) 6 mg PO BEDTIME PRN PRN Reason: Insomnia Metoprolol Succinate (Metoprolol Succinate Er 100 Mg Tab.Er.24h) 100 mg PO DAILY [facility]; Protocol Last Admin: 04/20/25 09:01 Dose: 100 mg Documented By: MAGALYS Ondansetron HCl (Ondansetron Hcl 4 Mg/2 Ml Vial) 4 mg IVPUSH Q8H PRN PRN Reason: Nausea and Vomiting Oxycodone HCl (Oxycodone Hcl Immed Release 5 Mg Tablet) 5 mg PO Q6H PRN PRN Reason: Pain, Moderate(Pain Scale 4-6) Last Admin: 04/20/25 09:17 Dose: 5 mg Documented By: MAGALYS Oxycodone HCl (Oxycodone Hcl Immed Release 5 Mg Tablet) 5 mg PO Q6H PRN PRN Reason: Pain, Severe (Pain Scale 7-10) Sodium Bicarbonate (Sodium Bicarbonate 650 Mg Tablet) 650 mg PO TID [facility] Last Admin: 04/20/25 14:55 Dose: 650 mg Documented By: MAGALYS Sodium Chloride (0.9 % Sodium Chloride Flush 3 Ml Syringe) 3 ml IVFLUSH QSHIFT [facility] Last Admin: 04/20/25 16:12 Dose: Not Given Documented By: MAGALYS Non-Admin Reason: Previously Administered Sodium Zirconium Cyclosilicate (Sodium Zirconium Cyclosilicate 10 Gm Powd.Pack) 10 gm PO DAILY [facility] Last Admin: 04/20/25 09:02 Dose: 10 gm Documented By: MAGALYS Tamsulosin HCl (Tamsulosin Hcl 0.4 Mg Capsule) 0.4 mg PO DAILY [facility] Last Admin: 04/20/25 09:01 Dose: 0.4 mg Documented By: MAGALYS Tiotropium Tyler (Tiotropium Tyler 2.5 Mcg 1 Puff/2.5 Mcg Mist.Inhal) 2 puff INHALE RDAILY [facility] Last Admin: 04/20/25 11:42 Dose: 2 puff Documented By: SHAMAOVINeenaH Labs 04/20/25 08:40 04/20/25 08:40 Labs: Laboratory Results - last 24 hr 04/19/25 04/19/25 04/20/25 17:56 21:35 07:06 MCV MCH MCHC RDW Plt Count MPV Absolute Nucleated RBC Nucleated RBC % (auto) Anion Gap Estim Creat Clear Calc Estimated GFR POC Glucose 89 Random Glucose Calcium Phosphorus Magnesium B-Natriuretic Peptide 3105 H PTH Intact Urine Color Yellow Urine Appearance Clear Urine pH 6.0 Ur Specific [place] 1.015 Urine Protein >=1000 (4+) H Urine Glucose (UA) 500 H Urine Ketones Negative Urine Blood Negative Urine Nitrite Negative Ur Leukocyte Esterase Negative Urine RBC 0-2 Urine WBC 0-5 Ur Squamous Epith Cells 0-2 Urine Bacteria None Seen Hyaline Casts 0-2 04/20/25 04/20/25 04/20/25 08:40 10:56 16:10 MCV 87.9 MCH 28.7 MCHC 32.7 RDW 15.7 Plt Count 260 MPV 9.5 Absolute Nucleated RBC 0.000 Nucleated RBC % (auto) 0.0 Anion Gap 16 Estim Creat Clear Calc 9.4 Estimated GFR 7 POC Glucose 115 108 Random Glucose 90 Calcium 7.8 L Phosphorus 5.9 H Magnesium 1.8 B-Natriuretic Peptide PTH Intact 342.7 H Urine Color Urine Appearance Urine pH Ur Specific [place] Urine Protein Urine Glucose (UA) Urine Ketones Urine Blood Urine Nitrite Ur Leukocyte Esterase Urine RBC Urine WBC Ur Squamous Epith Cells Urine Bacteria Hyaline Casts Assessment and Plan (1) Acute kidney injury superimposed on CKD: Status: Acute (2) Elevated troponin: Status: Acute Plan Patient is a 65-year-old male with a past medical history significant for mild COPD, CKD [address] Ruiz, anemia of chronic disease receiving EPO, HTN, T2 dm (PRN insulin), s/p right BKA, cardiomyopathy, paroxysmal AFib (currently holding Xarelto), HFrEF, osteomyelitis/septic arthritis, hyperparathyroid, and WENDY, who presented to the ED per recommendation of Dr. Ruiz due to shortness of breath for the past month, diarrhea for the past 2 weeks and anemia. UMAIR on CKD Creatinine currently 8.13 Sent to ED by nephrology for inpatinet renal biopsy IR needs SBP <140 for biopsy, currently scheduled for Tuesday 04/24 Nephrology following Avoid nephrotoxins, monitor BMP Acute on chronic HFrEF exacerbation, pulmonary edema Shortness of breath x1 mo, BNP 3105 No leukocytosis, vitals stable, afebrile, no evidence of infection Echo 02/26 EF 40-45% CXR with moderate interstitial edema Given 80 mg IV Lasix in ED on 04/19, re-evaluate diuretics in the morning Monitor CBC and BMP Anemia of chronic disease Hemoglobin 8.1, improved from 6.6 3 days ago Received Procrit today by Dr. Ruiz Check occult blood stool to stool samples ordered Monitor CBC, transfuse as necessary Hyperchloremic metabolic acidosis Secondary to UMAIR Monitor BMP Elevated troponin, NSTEMI Troponins 6182.5 with repeat 4915.6 Pt asymptomatic, EKG without ischemic changes Likely elevated secondary to demand Anticoagulation held due to anemia Discussed with cardiology who did not think any other treatment or intervention necessary Monitor on telemetry Diarrhea C diff and GI panel ordered Monitor CBC Mild COPD, no acute exacerbation Continue home meds HTN IR needs better BP control, SBP <140 Continue home meds Monitor BP and alter meds as necessary Type 2 diabetes Diabetic diet/low potassium diet Sliding scale insulin Paroxysmal AFib EKG without AFib Holding Xarelto and anticoagulants due to anemia Rate controlled currently Chronic left foot diabetic foot ulcer Followed by wound care but pt reports he has not been compliant Wound care consult Full code VTE prophylaxis: Pneumoboots Patient with UMAIR on CKD complicated by pulmonary edema and NSTEMI, requiring continued hospitalization while awaiting renal biopsy and monitoring labs and cardiac function. Quality Stroke Does the patient have a stroke diagnosis?: No VTE Prior VTE?: No VTE Risk Level:: Medical - moderate - high VTE Device Contraindication: N/A - Device Ordered VTE Drug Contraindication: Treatment Not Indicated
[2025-04-20 20:47] LABS: Glucose, Whole Blood 117 mg/dL (60-115)
[2025-04-21] VITALS (13 sets, daily range): BP systolic 127–153; BP diastolic 58–72; PULSE 75–89; RESP 15–20; TEMP 36.6–37.1; O2SAT 92–100
[2025-04-21 06:57] LABS: Glucose, Whole Blood 81 mg/dL (60-115)
[2025-04-21 07:16] LABS: Hematocrit 23.7 % (42.0-52.0); Hemoglobin 7.7 g/dl (14.0-18.0); Mean Corpuscular HGB Conc 32.5 g/dl (31.0-36.0); Mean Corpuscular Hemoglobin 28.4 pg (27.0-33.0); Mean Corpuscular Volume 87.5 fL (80.0-98.0); NRBC Abs Auto 0.000 X10*3/uL (0.0-0.012); NRBC Pct Auto 0.0 /100WBC (0.0-0.2); Platelet Count 257 X10*3/uL (160-400); Red Blood Count 2.71 X10*6/uL (4.60-5.80); Reticulocytes Absolute 0.036 X10*6/uL (0.026-0.095); White Blood Count 9.5 X10*3/uL (4.8-10.8)
[2025-04-21 07:32] LABS: Anion Gap 17 (12-20); Blood Urea Nitrogen 70 mg/dL (9-16); Calcium 7.8 mg/dL (8.4-10.2); Carbon Dioxide 16 mmol/L (22-29); Chloride 110 mmol/L (96-108); Creatinine Clr Calc Pharmacy 9.2; Estimated Glomerular Filt Rate 6; Magnesium 1.8 mg/dL (1.6-2.6); Potassium 4.5 mmol/L (3.3-5.1); Sodium 138 mmol/L (135-145)
[2025-04-21 07:47] LABS: Troponin-I High Sensitivity 2419.9 ng/L (<3.5-35.0)
[2025-04-21] MEDS: Tiotropium Bromide 2.5 mcg 1 PUFF/2.5 MCG MIST.INHAL 2 PUFF INHALE (08:15)
[2025-04-21] MEDS: oxyCODONE HCl Immed Release 5 MG TABLET PO ×2 (08:41→20:46)
[2025-04-21] MEDS: Metoprolol Succinate ER 100 MG TAB.ER.24H PO (08:42)
[2025-04-21] MEDS: 0.9 % Sodium Chloride Flush 3 ML SYRINGE IVFLUSH ×3 (08:42→20:48)
--- NOTE | 2025-04-21 08:59 | P.PNNP_ITS ---
Subjective Subjective Date of Service: 04/21/25 Interval history: following for UMAIR on CKD and component of progression of renal disease. per IR plan for renal biopsy Thursday Physical Exam 2 Vital Signs: Vital Signs: Last Vital Signs Temp 98.7 F 04/21/25 07:29 Pulse 86 04/21/25 08:42 Resp 15 04/21/25 08:18 BP 138/64 04/21/25 08:42 Pulse Ox 92 04/21/25 07:29 O2 Del Method Room Air 04/21/25 07:29 BMI result Body Mass Index 22.5 Const: General: no acute distress, alert and awake Resp: Effort & Inspection: normal respiratory effort and able to speak in complete sentences Auscultation: clear to auscultation bilaterally Cardio: Rate: regular rate Rhythm: regular rhythm Heart sounds: S1 normal heart sound present and S2 normal heart sound present GI: Palpation (GI): Soft to palpation and nontender : General: Yes no CVA tenderness Back/Spine/Pelvis: Back: no CVA tenderness Skin: Rashes: no rashes Neuro: Other: no asterixis, no tremor. Extrem: General: Yes edema (trace LLE edema (right BKA). ) Objective Data Labs 04/21/25 06:58 04/21/25 06:58 Labs: Laboratory Results - last 24 hr 04/20/25 04/20/25 04/20/25 08:40 10:56 16:10 WBC 8.7 RBC 2.82 L Hgb 8.1 L Hct 24.8 L MCV 87.9 MCH 28.7 MCHC 32.7 RDW 15.7 Plt Count 260 MPV 9.5 Absolute Nucleated RBC 0.000 Nucleated RBC % (auto) 0.0 Absolute Retic Percent Retic Immature Retic Fraction Retic Hgb Equivalent Sodium 137 Potassium 4.6 Chloride 111 H Carbon Dioxide 15 L Anion Gap 16 BUN 67 H Creatinine 8.13 H* Estim Creat Clear Calc 9.4 Estimated GFR 7 POC Glucose 115 108 Random Glucose 90 Calcium 7.8 L Phosphorus 5.9 H Magnesium 1.8 Lactate Dehydrogenase Troponin I High Sens PTH Intact 342.7 H 04/20/25 04/21/25 04/21/25 20:43 06:53 06:58 WBC 9.5 RBC 2.71 L Hgb 7.7 L Hct 23.7 L MCV 87.5 MCH 28.4 MCHC 32.5 RDW 15.6 Plt Count 257 MPV 9.4 Absolute Nucleated RBC 0.000 Nucleated RBC % (auto) 0.0 Absolute Retic 0.036 Percent Retic 1.3 Immature Retic Fraction 20.1 H Retic Hgb Equivalent 30.9 Sodium 138 Potassium 4.5 Chloride 110 H Carbon Dioxide 16 L Anion Gap 17 BUN 70 H Creatinine 8.36 H* Estim Creat Clear Calc 9.2 Estimated GFR 6 POC Glucose 117 H 81 Random Glucose 87 Calcium 7.8 L Phosphorus 5.9 H Magnesium 1.8 Lactate Dehydrogenase 201 Troponin I High Sens 2419.9 H* D PTH Intact Procedures Date of Service Date of Service: 04/21/25 Assessment & Plan Assessment and plan (1) Acute kidney injury superimposed on CKD: Status: Acute (2) Hypertension: Status: Acute Plan Advanced kidney disease from diabetes, hypertension and vascular disease, progressive CKD with recent UMAIR due to ATN with component of CKD progression. blood pressures improved this a.m., 138/64. Continue amlodipine 10mg daily, hydralazine 75mg PO TID, metoprolol 100mg daily. Will increase imdur to 60mg daily as patient needs tight BP control for renal biopsy. troponins elevated- agree [facility] cardiology consult, recommend echo. Pt at risk for cardiac morbidity due to advanced CKD. Recommend workup for bleeding due to precipitous drop in H&H including stool for occult blood. metabolic acidosis- continue sodium bicarb 650mg PO TID chronic hyperkalemia- continue lokelma 10gms PO daily plan for urgent renal biopsy as inpatient to better evaluate underlying cause of renal failure and prognosis- per IR may have availability Thursday, 04/24. 24 hour urine for creatinine clearance today. DDAVP prior to renal biopsy to reduce risk of bleeding. No immediate indication for renal replacement at this time. Will continue to follow closely. Recommend daily renal function and electrolyte studies Recommend regular blood pressure checks, close I&O monitoring Recommend avoiding nephrotoxins Continue supportive care Discussed with Dr Ruiz. Time Spent With Patient Time: Total time managing care of this patient today ____ minutes. Progress Note: Quality Stroke Does the patient have a stroke diagnosis?: No
--- NOTE | 2025-04-21 09:21 | CA_ITS ---
Transthoracic Echocardiogram Patient (Last, First, Middle): Renato Hinson, Gender: Male Date of : 1960 Age: 65 Procedure Date: 04/21/2025 Procedure Type: Transthoracic Echocardiogram Location: [facility] [place] Height: 182.88 cm Weight: 74.84 kg BSA: 1.96 m2 Heart Rate: bpm BP: 138 / 64 mmHg Volleyball Referee: TO Referring MD: Ambrocio ARAGON Symptoms: Elevated trops, surg clearance Study Quality: Fair ECG Rhythm: Sinus Conclusions: - The left ventricular systolic function is moderately decreased. The visually estimated ejection fraction is between 35-40%. - No obvious valvular pathology seen on this study. Findings Procedure Information The study quality is limited by an uncooperative patient. Left Ventricle Severely increased left ventricular cavity size. The left ventricular systolic function is moderately decreased. The visually estimated ejection fraction is between 35-40%. There is moderate global hypokinesis. Evidence suggests grade I (mild) diastolic dysfunction. Right Ventricle Normal right ventricular cavity size and systolic function. Atria The left atrium is moderately dilated. The right atrium is normal in size. Aortic Valve There is a normal trileaflet aortic valve. There is mild calcification of the aortic valve. There is no aortic valve stenosis. There is no aortic valve regurgitation. Mitral Valve The mitral valve appears normal. There is trace mitral valve regurgitation. There is no mitral valve stenosis. Pulmonic Valve The pulmonic valve is likely normal. Tricuspid Valve There is no tricuspid valve regurgitation. Tricuspid regurgitation envelope is inadequate for calculation of right ventricular systolic pressure. Great Vessels The asc aorta is normal in size. Venous The inferior vena cava was not well visualized. Pericardium/Pleural There is no evidence of pericardial effusion. Prior Study Comparison No significant change compared to prior study dated: 02/20/2025. Recommendations, Care & Conclusions No obvious valvular pathology seen on this study. Measurements 2D Linear Measurements IVSd: 0.80 0.6-0.9/0.6-1.0 cm LVIDd: 6.84 3.9-5.3/4.2-5.9 cm LVIDd Index: 3.49 2.4-3.2/2.2-3.1 cm/m2 LVIDs: 4.95 2.0-3.6 cm LVPWd: 0.83 0.7-1.1 cm LA Diam: 4.00 2.7-3.8/3.0-4.0 cm LAIDs Index: 2.04 1.5-2.3 cm/m2 LV Mass: 298.69 67-162/88-224 g LV Mass Index: 152.39 43-95/49-115 g/m2 LVOT Diam: 2.50 3.0+(-)1.3 cm 2D Systolic Function EF 4C: 40.40 >55% EF 2C: 41.20 >55% EF BiP: 41.20 >55% Mitral Valve MV Pk E: 0.85 MV PK A: 1.02 MV Decel Time: 142.00 E/A: 0.80 E'Lateral: 8.81 E'Medial: 4.24 E/E' Med: 20.00 E/E' Lat: 9.60 PHT: 42.00 MVA PHT: 5.24 Decel [place]: 5.97 LVOT LVOT Pk Job: 0.89 LVOT Mn Job: 0.55 LVOT VTI: 0.18 LVOT Pk Grad: 3.00 LVOT Mn Grad: 1.00 LVOT Diam: 2.50 LVOT Area: 4.91 Diastolic Function MV Pk E: 0.85 MV Pk A: 1.02 E/A: 0.80 E'Medial: 4.24 E/E' Med: 20.00 E' Laterial: 8.81 E/E' Lat: 9.60 Right Ventricle TAPSE (mm): 24.80 TVS' Job: 11.90 Great Vessels Aorta Sinus of Valsalva: 3.84 2.0-3.5 cm Ao Asc: 3.40 2.1-3.4 cm Updated in Other Vendor System with Status of Final Nikhil Benavides MD electronically signed on 04/21/2025 3:40:56 PM with status of Final
--- NOTE | 2025-04-21 09:30 | PM.CNCAR ---
History of Present Illness History of Present Illness Date of Service: 04/21/25 Chief complaint: dyspnea Narrative: This is a cardiology consultation regarding elevated troponins. Many comorbidities including advanced kidney disease, anemia of chronic disease, diabetes, hypertension, right BKA, cardiomyopathy, paroxysmal atrial fibrillation presenting with shortness of breath and diarrhea. It seems that his hemoglobin was quite low as much as 6.6. Subsequently, he was admitted for further care. The plan is to go ahead with renal biopsy. From the cardiac standpoint troponins have been checked for uncertain reason and it does elevated. However, patient denies any clear-cut chest pains or in fact any anginal symptoms. He states that he walks with a prosthesis and he can walk brief distance without any issues. He can even do stairs and has not had any clear exertional angina. Review of Systems Review of Systems: Yes all other systems are reviewed and are negative Constitutional: Constitutional: Reports as per HPI and Reports no additional constitutional complaints Eyes: Eyes: Reports as per HPI and Denies no additional eye complaints ENT: Denies system reviewed and no additional complaints, except as documented and Reports as per HPI Cardiovascular: Cardiovascular: Reports as per HPI, Reports no additional cardiovascular complaints, Denies acrocyanosis, Denies cool extremities, Denies chest pain, Denies leg edema, Denies lightheadedness, Denies palpitations and Denies dyspnea Respiratory: Respiratory: Reports as per HPI, Denies no additional respiratory complaints and Denies dyspnea Gastrointestinal: Gastrointestinal: Reports as per HPI and Denies no additional gastrointestinal complaints Genitourinary: Genitourinary: Reports no additional male genitourinary complaints and Reports as per HPI Musculoskeletal: Musculoskeletal: Reports no additional musculoskeletal complaints and Reports as per HPI Integumentary/Breasts: Skin/Breast: Reports system reviewed and no additional complaints, except as docu Neurologic: Reports system reviewed and no additional complaints, except as documented and Reports as per HPI Psychiatric: Psychiatric: Reports no additional psychiatric complaints and Reports as per HPI Endocrine: Endocrine: Reports no additional endocrine complaints, Reports as per HPI and Denies palpitations Hematologic/Lymphatic: Hematologic/Lymphatic: Reports no additional hematologic/lymphatic complaints and Reports as per HPI Allergic/Immunologic: Allergic/Immunologic: Reports no additional allergic/immunologic complaints and Reports as per HPI [facility] Past Medical History Medical History Anemia in chronic kidney disease (CKD) CKD (chronic kidney disease) stage 4, GFR 15-29 ml/min Hypertension Fluid overload Acute and chronic respiratory failure Sepsis Acute dehydration New onset of congestive heart failure Pneumonia Urinary urgency Urinary tract infection Urinary hesitancy Tubular adenoma of colon Smoker Seborrheic keratoses SND (sensorineural deafness) Right BKA infection Peripheral vascular disease WENDY (obstructive sleep apnea) Microalbuminuria Lung nodule seen on imaging study Lightheadedness Latent tuberculosis LVH (left ventricular hypertrophy) Abnormal PFTs Hyponatremia Hypertensive retinopathy of both eyes Hyperkalemia Hepatitis C Hearing loss of both ears Erectile dysfunction Cataract CKD (chronic kidney disease) Bladder wall thickening BPH (benign prostatic hyperplasia) Anticoagulated Anemia Peripheral neuropathy Diabetes mellitus, type II CVA (cerebral vascular accident) Adrenal nodule Kidney cysts Family History Family History Brother Diabetes Mother Diabetes Father Diabetes Surgical History Surgical History Hx of right BKA Social History Social History Household Members: Spouse Housing: Apartment Do you presently have visiting nurse or other home services: Yes Alcohol intake: never Patient Tobacco Use Status: Former Tobacco user Tobacco use type: Cigarette e-Cigarette/Vaping Use: Former Use service: No Meds Allergies Allergy/AdvReac Type Severity Reaction Status Date / Time morphine Allergy Hallucinati Verified 04/19/25 17:39 ons bupropion AdvReac Hallucinati Verified 04/19/25 17:39 ons Active Medications: Current Medications Acetaminophen (Acetaminophen 325 Mg Tablet) 975 mg PO Q6H PRN PRN Reason: Pain, Mild 1-3,fever,headache Amlodipine Besylate (Amlodipine Besylate 10 Mg Tablet) 10 mg PO DAILY [facility]IZA; Protocol Last Admin: 04/21/25 08:41 Dose: 10 mg Atorvastatin Calcium (Atorvastatin Calcium 10 Mg Tablet) 10 mg PO DAILY [facility] Last Admin: 04/21/25 08:42 Dose: 10 mg Calcium Carbonate (Calcium Carbonate 750 Mg Tab.Chew) 750 mg PO Q4H PRN PRN Reason: Heartburn Dextrose (Dextrose 50 % 25 Gm/50 Ml Syringe) 25 gm IVPUSH Q15M PRN; Protocol PRN Reason: per Hypoglycemia Standing Ord. Finasteride (Finasteride 5 Mg Tablet) 5 mg PO DAILY [facility] Last Admin: 04/21/25 08:41 Dose: 5 mg Glucose (Glucose Gel 15 Gm Gel..Gram.) 15 gm PO Q15M PRN; Protocol PRN Reason: per Hypoglycemia Standing Ord. Hydralazine HCl (Hydralazine Hcl 25 Mg Tablet) 75 mg PO TID [facility]; Protocol Last Admin: 04/21/25 08:41 Dose: 75 mg Hydromorphone HCl (Hydromorphone Hcl 0.5 Mg/0.5 Ml Syringe) 0.25 mg IVPUSH Q4H PRN; Protocol PRN Reason: Pain, Severe (Pain Scale 7-10) Last Admin: 04/20/25 01:43 Dose: 0.25 mg Insulin Human Lispro (Insulin Lispro 100 Unit/Ml 3 Ml Vial) 0 unit SUBCUT QIDACHS [facility]; Protocol Last Admin: 04/21/25 07:29 Dose: Not Given Isosorbide Mononitrate (Isosorbide Mononitrate 30 Mg Tab.Er.24h) 30 mg PO DAILY [facility]; Protocol Last Admin: 04/21/25 08:42 Dose: 30 mg Magnesium Hydroxide (Milk Of Magnesia 30 Ml Oral.Susp) 30 ml PO DAILY PRN PRN Reason: Constipation Melatonin (Melatonin 3 Mg Tablet) 6 mg PO BEDTIME PRN PRN Reason: Insomnia Metoprolol Succinate (Metoprolol Succinate Er 100 Mg Tab.Er.24h) 100 mg PO DAILY [facility]; Protocol Last Admin: 04/21/25 08:42 Dose: 100 mg Ondansetron HCl (Ondansetron Hcl 4 Mg/2 Ml Vial) 4 mg IVPUSH Q8H PRN PRN Reason: Nausea and Vomiting Oxycodone HCl (Oxycodone Hcl Immed Release 5 Mg Tablet) 5 mg PO Q6H PRN PRN Reason: Pain, Moderate(Pain Scale 4-6) Last Admin: 04/21/25 08:41 Dose: 5 mg Oxycodone HCl (Oxycodone Hcl Immed Release 5 Mg Tablet) 5 mg PO Q6H PRN PRN Reason: Pain, Severe (Pain Scale 7-10) Last Admin: 04/20/25 21:01 Dose: 5 mg Sodium Bicarbonate (Sodium Bicarbonate 650 Mg Tablet) 650 mg PO TID [facility] Last Admin: 04/21/25 08:41 Dose: 650 mg Sodium Chloride (0.9 % Sodium Chloride Flush 3 Ml Syringe) 3 ml IVFLUSH QSHIFT [facility] Last Admin: 04/21/25 08:42 Dose: 3 ml Sodium Zirconium Cyclosilicate (Sodium Zirconium Cyclosilicate 10 Gm Powd.Pack) 10 gm PO DAILY [facility] Last Admin: 04/21/25 08:41 Dose: 10 gm Tamsulosin HCl (Tamsulosin Hcl 0.4 Mg Capsule) 0.4 mg PO DAILY [facility] Last Admin: 04/21/25 08:42 Dose: 0.4 mg Tiotropium Raymond (Tiotropium Raymond 2.5 Mcg 1 Puff/2.5 Mcg Mist.Inhal) 2 puff INHALE RDAILY [facility] Last Admin: 04/21/25 08:15 Dose: 2 puff Home Medications ?Medication ?Instructions ?Recorded ?Confirmed ?Last Taken ?Type amlodipine 10 mg tablet 10 mg PO DAILY 12/19/24 04/20/25 02/19/25 09:00 History aspirin 81 mg chewable tablet 1 tab PO DAILY 12/19/24 04/20/25 02/19/25 09:00 History dapagliflozin propanediol 10 mg 10 mg PO DAILY 12/19/24 04/20/25 02/19/25 09:00 History tablet (Farxiga) Held on 03/02/25. Instructions: Resume on 03/09/25. finasteride 5 mg tablet 5 mg PO DAILY 12/19/24 04/20/25 02/19/25 09:00 History metoprolol succinate 100 mg 100 mg PO DAILY 12/19/24 04/20/25 02/19/25 09:00 History tablet,extended release 24 hr sodium zirconium cyclosilicate 10 10 g PO DAILY 12/19/24 04/20/25 02/19/25 09:00 History gram oral powder packet (Lokelma) tamsulosin 0.4 mg capsule 0.4 mg PO DAILY 12/19/24 04/20/25 02/19/25 09:00 History umeclidinium 62.5 mcg/actuation 1 inh inhalation DAILY 12/19/24 04/20/25 02/19/25 09:00 History blister powder for inhalation (Incruse Ellipta) hydralazine 25 mg tablet 50 mg PO TID 12/30/24 04/20/25 02/19/25 09:00 History rivaroxaban 2.5 mg tablet (Xarelto) 2.5 mg PO BID 12/30/24 04/20/25 02/19/25 History Held on 03/02/25. Instructions: Resume on 03/08/25. sodium bicarbonate 650 mg tablet 650 mg PO TID 12/30/24 04/20/25 02/19/25 09:00 History atorvastatin 10 mg tablet 10 mg PO DAILY 04/20/25 04/20/25 Unknown History Physical Exam Vital Signs: Vital Signs: Last Vital Signs Temp 98.7 F 04/21/25 07:29 Pulse 86 04/21/25 08:42 Resp 15 04/21/25 08:18 BP 138/64 04/21/25 08:42 Pulse Ox 92 04/21/25 07:29 O2 Del Method Room Air 04/21/25 07:29 BMI result Body Mass Index 22.5 Const: General: comfortable and no acute distress Orientation/consciousness: patient oriented x3 HEENT: Other: Unremarkable Head: Yes normal to inspection Neck: Neck: Yes normal visual inspection Chest: Chest palpation & inspection: normal inspection of the chest Resp: Auscultation: clear to auscultation bilaterally Cardio: Palpation: normal PMI Heart sounds: S1 normal heart sound present, S2 normal heart sound present, no gallops, no murmurs and no rubs GI: Palpation (GI): Soft to palpation Back/Spine/Pelvis: Other: unremarkable Skin: General skin exam: no rashes or lesions noted Neuro: General: patient oriented x3 Extrem: General: Yes normal to inspection Psych: Mental Status: mental status grossly normal Objective Labs and Meds 04/21/25 06:58 04/21/25 06:58 Lab results: Laboratory Results - last 24 hr 04/20/25 04/20/25 04/20/25 08:40 10:56 16:10 WBC RBC Hgb Hct MCV MCH MCHC RDW Plt Count MPV Absolute Nucleated RBC Nucleated RBC % (auto) Absolute Retic Percent Retic Immature Retic Fraction Retic Hgb Equivalent Sodium Potassium Chloride Carbon Dioxide Anion Gap BUN Creatinine Estim Creat Clear Calc Estimated GFR POC Glucose 115 108 Random Glucose Calcium Phosphorus Magnesium Lactate Dehydrogenase Troponin I High Sens PTH Intact 342.7 H CHAVA, Polyspecific Positive CHAVA Work-up 04/20/25 04/21/25 04/21/25 20:43 06:53 06:58 WBC 9.5 RBC 2.71 L Hgb 7.7 L Hct 23.7 L MCV 87.5 MCH 28.4 MCHC 32.5 RDW 15.6 Plt Count 257 MPV 9.4 Absolute Nucleated RBC 0.000 Nucleated RBC % (auto) 0.0 Absolute Retic 0.036 Percent Retic 1.3 Immature Retic Fraction 20.1 H Retic Hgb Equivalent 30.9 Sodium 138 Potassium 4.5 Chloride 110 H Carbon Dioxide 16 L Anion Gap 17 BUN 70 H Creatinine 8.36 H* Estim Creat Clear Calc 9.2 Estimated GFR 6 POC Glucose 117 H 81 Random Glucose 87 Calcium 7.8 L Phosphorus 5.9 H Magnesium 1.8 Lactate Dehydrogenase 201 Troponin I High Sens 2419.9 H* D PTH Intact CHAVA, Polyspecific NEGATIVE Positive CHAVA Work-up TNP ECG Interpretation: EKG with underlying sinus rhythm at 90/Min; left ventricular hypertrophy with repolarization changes; normal [place] and corrected QT. Assessment and Plan (1) NSTEMI (non-ST elevated myocardial infarction): Status: Acute (2) Acute kidney injury superimposed on CKD: Status: Acute (3) Anemia in chronic kidney disease (CKD): Qualifiers: Chronic kidney disease stage: stage 4 (GFR 15-29) Qualified Code(s): N18.4 - Chronic kidney disease, stage 4 (severe); D63.1 - Anemia in chronic kidney disease Status: Acute Plan High sensitivity troponin levels are 6000s, 4000s and 2000s. Elevated creatinine at 8.36. It has been high for the last couple of months but in December it was 2.8. Hemoglobin as low as 6.6. Clinically, he has got no angina or any ischemic symptoms. Echocardiogram from February with LVEF of 40-45%. Moderate diastolic dysfunction. Moderately elevated right atrial pressure. Overall, elevated troponins in the setting of severe anemia and severe renal insufficiency. With the extent of in his comorbidities, could have underlying coronary disease but he is not suitable for ischemic workup in the setting. If no bleeding issues, then aspirin. Statin dose can be increased to 40 mg daily if approved by renal. He is already on beta-blockers. We can repeat an echocardiogram to see if there is any overt wall motion abnormalities. However, even if it is present still he is not a candidate for ischemic workup in this setting. Once the need function is stable, consider outpatient ischemic workup possibly with a stress test 1st. This is a high likelihood of precipitating dialysis with invasive catheterization and hence we will hold off and there is no absolutely recent to pursue it at this time either. We will follow up with you. Procedures Date of Service Date of Service: 04/21/25
[2025-04-21 11:08] LABS: Glucose, Whole Blood 140 mg/dL (60-115)
[2025-04-21 12:12] LABS: OBS Int Ctl Valid YES; OBS1 NEGATIVE (NEGATIVE)
[2025-04-21 12:51] LABS: CDiff Gene PCR NEGATIVE (Negative)
--- NOTE | 2025-04-21 13:31 | MHC.CM.PN ---
EMR REVIEWED, PER HOSPITALIST PT WILL REMAIN INPT OVER W/E, PLAN FOR PT TO BE TRASNFUSED TODAY/THURSDAY, AND IF LABS IMPROVE AND BP REMAINS STABLE PLAN FOR INPT BIOPSY TUESDAY 04/24, CM WILL CONT TO FOLLOW DC NEEDS.
[2025-04-21 13:53] LABS: E. coli EAEC Not Detected (Not Detect.); E. coli EPEC Not Detected (Not Detect.); E. coli ETEC Not Detected (Not Detect.); E. coli STEC Not Detected (Not Detect.); Shigella sp./EIEC Not Detected (Not Detect.)
--- NOTE | 2025-04-21 15:53 | HO.PM.IMPN ---
Subjective Subjective Date of Service: 04/21/25 Interval History: Seen resting comfortably in bed Reports feels well, no acute medical complaints Denies chest pain/pressure No abd pain Denies diarrhea Review of Systems Review of Systems: Yes all other systems are reviewed and are negative Physical Exam Exam: Exam: General: AOx3, no acute distress. Resting comfortably in bed Resp: CTA bilaterally, diminished CVS: S1, S2, RRR GI: +BS, NT, no distention Skin: Warm, dry Neuro: Cranial nerves II-XII grossly intact bilaterally. Motor grossly intact bilaterally Extremities: Trace left lower leg edema. Left foot covered in clean bandages. Right BKA Psych: Appropriate affect Vital Signs: Vital Signs: Last Vital Signs Temp 98.2 F 04/21/25 15:47 Pulse 76 04/21/25 15:47 Resp 18 04/21/25 15:47 BP 127/58 L 04/21/25 15:47 Pulse Ox 97 04/21/25 15:47 O2 Del Method Room Air 04/21/25 15:47 BMI result Body Mass Index 22.5 Objective Data Active Medications Acetaminophen (Acetaminophen 325 Mg Tablet) 975 mg PO Q6H PRN PRN Reason: Pain, Mild 1-3,fever,headache Amlodipine Besylate (Amlodipine Besylate 10 Mg Tablet) 10 mg PO DAILY [facility]; Protocol Last Admin: 04/21/25 08:41 Dose: 10 mg Documented By: MAGALYS Atorvastatin Calcium (Atorvastatin Calcium 10 Mg Tablet) 10 mg PO DAILY [facility] Last Admin: 04/21/25 08:42 Dose: 10 mg Documented By: MAGALYS Calcium Carbonate (Calcium Carbonate 750 Mg Tab.Chew) 750 mg PO Q4H PRN PRN Reason: Heartburn Dextrose (Dextrose 50 % 25 Gm/50 Ml Syringe) 25 gm IVPUSH Q15M PRN; Protocol PRN Reason: per Hypoglycemia Standing Ord. Finasteride (Finasteride 5 Mg Tablet) 5 mg PO DAILY [facility] Last Admin: 04/21/25 08:41 Dose: 5 mg Documented By: MAGALYS Glucose (Glucose Gel 15 Gm Gel..Gram.) 15 gm PO Q15M PRN; Protocol PRN Reason: per Hypoglycemia Standing Ord. Hydralazine HCl (Hydralazine Hcl 25 Mg Tablet) 75 mg PO TID [facility]; Protocol Last Admin: 04/21/25 14:50 Dose: 75 mg Documented By: MAGALYS Hydromorphone HCl (Hydromorphone Hcl 0.5 Mg/0.5 Ml Syringe) 0.25 mg IVPUSH Q4H PRN; Protocol PRN Reason: Pain, Severe (Pain Scale 7-10) Last Admin: 04/20/25 01:43 Dose: 0.25 mg Documented By: DANNY Desmopressin Acetate 20 mcg/ (Sodium Chloride) 55 mls @ 100 mls/hr IV ONCE ONE Stop: 04/24/25 07:32 Insulin Human Lispro (Insulin Lispro 100 Unit/Ml 3 Ml Vial) 0 unit SUBCUT QIDACHS [facility]; Protocol Last Admin: 04/21/25 12:01 Dose: Not Given Documented By: WILLIAN Non-Admin Reason: No Insulin Coverage Isosorbide Mononitrate (Isosorbide Mononitrate 60 Mg Tab.Er.24h) 60 mg PO DAILY [facility]; Protocol Magnesium Hydroxide (Milk Of Magnesia 30 Ml Oral.Susp) 30 ml PO DAILY PRN PRN Reason: Constipation Melatonin (Melatonin 3 Mg Tablet) 6 mg PO BEDTIME PRN PRN Reason: Insomnia Metoprolol Succinate (Metoprolol Succinate Er 100 Mg Tab.Er.24h) 100 mg PO DAILY [facility]; Protocol Last Admin: 04/21/25 08:42 Dose: 100 mg Documented By: MAGALYS Ondansetron HCl (Ondansetron Hcl 4 Mg/2 Ml Vial) 4 mg IVPUSH Q8H PRN PRN Reason: Nausea and Vomiting Oxycodone HCl (Oxycodone Hcl Immed Release 5 Mg Tablet) 5 mg PO Q6H PRN PRN Reason: Pain, Moderate(Pain Scale 4-6) Last Admin: 04/21/25 08:41 Dose: 5 mg Documented By: MAGALYS Oxycodone HCl (Oxycodone Hcl Immed Release 5 Mg Tablet) 5 mg PO Q6H PRN PRN Reason: Pain, Severe (Pain Scale 7-10) Last Admin: 04/20/25 21:01 Dose: 5 mg Documented By: MADDIE Sodium Bicarbonate (Sodium Bicarbonate 650 Mg Tablet) 650 mg PO TID [facility] Last Admin: 04/21/25 14:50 Dose: 650 mg Documented By: MAGALYS Sodium Chloride (0.9 % Sodium Chloride Flush 3 Ml Syringe) 3 ml IVFLUSH QSHIFT [facility] Last Admin: 04/21/25 14:50 Dose: 3 ml Documented By: MAGALYS Sodium Zirconium Cyclosilicate (Sodium Zirconium Cyclosilicate 10 Gm Powd.Pack) 10 gm PO DAILY [facility] Last Admin: 04/21/25 08:41 Dose: 10 gm Documented By: MAGALYS Tamsulosin HCl (Tamsulosin Hcl 0.4 Mg Capsule) 0.4 mg PO DAILY [facility] Last Admin: 04/21/25 08:42 Dose: 0.4 mg Documented By: MAGALYS Tiotropium T[place]umseh (Tiotropium [place] 2.5 Mcg 1 Puff/2.5 Mcg Mist.Inhal) 2 puff INHALE RDAILY [facility] Last Admin: 04/21/25 08:15 Dose: 2 puff Documented By: SACHIN Labs 04/21/25 06:58 04/21/25 06:58 Labs: Laboratory Results - last 24 hr 04/20/25 04/20/25 04/21/25 16:10 20:43 06:53 MCV MCH MCHC RDW Plt Count MPV Absolute Nucleated RBC Nucleated RBC % (auto) Smear Path Review Absolute Retic Percent Retic Immature Retic Fraction Retic Hgb Equivalent Anion Gap Estim Creat Clear Calc Estimated GFR POC Glucose 108 117 H 81 Random Glucose Calcium Phosphorus Magnesium Lactate Dehydrogenase Stool Occult Blood Stl C. cayetanensis PCR Stool Rotavirus A PCR Stl Adenov F 40/41 PCR Stool Astrovirus (PCR) Stool Campylobacter PCR Stool Cryptosporidium PCR Stl Sh Tox Pr E STEC PCR Stool E coli O157 PCR Stl Enterotoxigenic E PCR Stool EPEC (PCR) Stool EAEC (PCR) Stl E. histolytica PCR Stool Giardia Lamblia PCR Stl P. shigelloides PCR Stool Salmonella PCR Stool Sapovirus (PCR) Stl Shigella/EIEC PCR St Y.enterocolitica PCR Stool Vibrio (PCR) Stl Vibrio cholerae PCR Stl Norovirus GI/GII PCR C. difficile Tox B Gene Blood Type Antibody Screen CHAVA, Polyspecific Positive CHAVA Work-up Crossmatch 04/21/25 04/21/25 04/21/25 06:58 10:12 11:04 MCV 87.5 MCH 28.4 MCHC 32.5 RDW 15.6 Plt Count 257 MPV 9.4 Absolute Nucleated RBC 0.000 Nucleated RBC % (auto) 0.0 Smear Path Review SEE NOTE Absolute Retic 0.036 Percent Retic 1.3 Immature Retic Fraction 20.1 H Retic Hgb Equivalent 30.9 Anion Gap 17 Estim Creat Clear Calc 9.2 Estimated GFR 6 POC Glucose 140 H Random Glucose 87 Calcium 7.8 L Phosphorus 5.9 H Magnesium 1.8 Lactate Dehydrogenase 201 Stool Occult Blood Stl C. cayetanensis PCR Stool Rotavirus A PCR Stl Adenov F PCR Stool Astrovirus (PCR) Stool Campylobacter PCR Stool Cryptosporidium PCR Stl Sh Tox Pr E STEC PCR Stool E coli O157 PCR Stl Enterotoxigenic E PCR Stool EPEC (PCR) Stool EAEC (PCR) Stl E. histolytica PCR Stool Giardia Lamblia PCR Stl P. shigelloides PCR Stool Salmonella PCR Stool Sapovirus (PCR) Stl Shigella/EIEC PCR St Y.enterocolitica PCR Stool Vibrio (PCR) Stl Vibrio cholerae PCR Stl Norovirus GI/GII PCR C. difficile Tox B Gene Blood Type A Negative Antibody Screen NEGATIVE CHAVA, Polyspecific NEGATIVE Positive CHAVA Work-up TNP Crossmatch See Detail 04/21/25 04/21/25 11:39 11:40 MCV MCH MCHC RDW Plt Count MPV Absolute Nucleated RBC Nucleated RBC % (auto) Smear Path Review Absolute Retic Percent Retic Immature Retic Fraction Retic Hgb Equivalent Anion Gap Estim Creat Clear Calc Estimated GFR POC Glucose Random Glucose Calcium Phosphorus Magnesium Lactate Dehydrogenase Stool Occult Blood NEGATIVE Stl C. cayetanensis PCR Not Detected Stool Rotavirus A PCR Not Detected Stl Adenov F PCR Not Detected Stool Astrovirus (PCR) Not Detected Stool Campylobacter PCR Not Detected Stool Cryptosporidium PCR Not Detected Stl Sh Tox Pr E STEC PCR Not Detected Stool E coli O157 PCR Not applicable Stl Enterotoxigenic E PCR Not Detected Stool EPEC (PCR) Not Detected Stool EAEC (PCR) Not Detected Stl E. histolytica PCR Not Detected Stool Giardia Lamblia PCR Not Detected Stl P. shigelloides PCR Not Detected Stool Salmonella PCR Not Detected Stool Sapovirus (PCR) Not Detected Stl Shigella/EIEC PCR Not Detected St Y.enterocolitica PCR Not Detected Stool Vibrio (PCR) Not Detected Stl Vibrio cholerae PCR Not Detected Stl Norovirus GI/GII PCR Detected A C. difficile Tox B Gene NEGATIVE Blood Type Antibody Screen CHAVA, Polyspecific Positive CHAVA Work-up Crossmatch Assessment and Plan (1) Elevated troponin: Status: Acute (2) Acute kidney injury superimposed on CKD: Status: Acute Plan Patient is a 65-year-old male with a past medical history significant for mild COPD, CKD [address] Ruiz, anemia of chronic disease receiving EPO, HTN, T2 dm (PRN insulin), s/p right BKA, cardiomyopathy, paroxysmal AFib (currently holding Xarelto), HFrEF, osteomyelitis/septic arthritis, hyperparathyroid, and WENDY, who presented to the ED per recommendation of Dr. Ruiz due to shortness of breath for the past month, diarrhea for the past 2 weeks and anemia. UMAIR on CKD Creatinine slighty worseing, now 8.13-->8.36 Sent to ED by nephrology for inpatinet renal biopsy IR needs SBP <140 for biopsy, currently scheduled for Tuesday 04/24 Nephrology following Avoid nephrotoxins, monitor BMP Acute on chronie anemia of chronic disease Hemoglobin worsening 8.1 -->7.7 Received Procrit om 04/[address] Ruiz Occult blood stool negative; no obvious bleeding Will transfuse 1 unit PRBC today and tomorrow 04/22 Monitor CBC, transfuse as necessary Acute on chronic HFrEF exacerbation, pulmonary edema Shortness of breath x1 mo, BNP 3105 No leukocytosis, vitals stable, afebrile, no evidence of infection Echo 02/26 EF 40-45% CXR with moderate interstitial edema Given 80 mg IV Lasix in ED on 04/19, re-evaluate for continued diuretics Monitor CBC and BMP Elevated troponin, NSTEMI Troponins 6182.5-->4915.6-->2419.9 Pt asymptomatic, EKG without ischemic changes Likely elevated secondary to demand, though possible underlying CAD Anticoagulation held due to anemia Cardiolyg following, do not think any treatment or intervention necessary given anemia and comorbidities Will get echocardiogram Monitor on telemetry Hyperchloremic metabolic acidosis Secondary to UMAIR Continue sodium bicarb 650mg tid Monitor BMP Diarrhea Ongoing x2 weeks, improved C diff negative, positive for norovirus Contact precautions Supportive care Mild COPD, no acute exacerbation Continue home meds HTN IR needs better BP control, SBP <140 Continue home meds Monitor BP and alter meds as necessary Type 2 diabetes Diabetic diet/low potassium diet Sliding scale insulin Paroxysmal AFib EKG without AFib Holding Xarelto and anticoagulants due to anemia Rate controlled currently Chronic left foot diabetic foot ulcer Followed by wound care but pt reports he has not been compliant Wound care consult Full code VTE prophylaxis: Pneumoboots Patient with UMAIR on CKD complicated by pulmonary edema and NSTEMI, requiring continued hospitalization while awaiting renal biopsy and monitoring labs and cardiac function. Quality Stroke Does the patient have a stroke diagnosis?: No VTE Prior VTE?: No VTE Risk Level:: Medical - moderate - high VTE Device Contraindication: N/A - Device Ordered VTE Drug Contraindication: Treatment Not Indicated
[2025-04-21 16:47] LABS: Glucose, Whole Blood 144 mg/dL (60-115)
[2025-04-21 20:44] LABS: Glucose, Whole Blood 124 mg/dL (60-115)
[2025-04-22] VITALS (10 sets, daily range): BP systolic 120–164; BP diastolic 63–74; PULSE 60–89; RESP 17–20; TEMP 36.3–37.1; O2SAT 92–98
[2025-04-22 06:16] LABS: Total Volume 24 Hour Urine 875 mL
[2025-04-22 06:31] LABS: Creatinine, mg/dL 53.73
[2025-04-22 06:49] LABS: Creatinine (CrCl) 8.36 mg/dL (0.5-1.4)
[2025-04-22 07:33] LABS: Hematocrit 26.0 % (42.0-52.0); Hemoglobin 8.5 g/dl (14.0-18.0); Mean Corpuscular HGB Conc 32.7 g/dl (31.0-36.0); Mean Corpuscular Hemoglobin 28.6 pg (27.0-33.0); Mean Corpuscular Volume 87.5 fL (80.0-98.0); NRBC Abs Auto 0.000 X10*3/uL (0.0-0.012); NRBC Pct Auto 0.0 /100WBC (0.0-0.2); Platelet Count 275 X10*3/uL (160-400); Red Blood Count 2.97 X10*6/uL (4.60-5.80); White Blood Count 9.7 X10*3/uL (4.8-10.8)
[2025-04-22 07:50] LABS: Anion Gap 16 (12-20); Blood Urea Nitrogen 68 mg/dL (9-16); Calcium 7.8 mg/dL (8.4-10.2); Carbon Dioxide 18 mmol/L (22-29); Chloride 109 mmol/L (96-108); Creatinine Clr Calc Pharmacy 9.2; Estimated Glomerular Filt Rate 6; Iron 29 mcg/dL (45-160); Magnesium 1.9 mg/dL (1.6-2.6); Percent Iron Saturation 21 % (15-50); Potassium 4.4 mmol/L (3.3-5.1); Sodium 139 mmol/L (135-145); Total Iron Binding Capacity 136 mcg/dL (228-428); Unsaturated Iron Binding 107 ug/dL
[2025-04-22 07:57] LABS: Glucose, Whole Blood 92 mg/dL (60-115)
[2025-04-22] MEDS: Tiotropium Bromide 2.5 mcg 1 PUFF/2.5 MCG MIST.INHAL 2 PUFF INHALE (08:05)
[2025-04-22 08:24] LABS: Folate 4.9 ng/mL (> or = 4.0); Vitamin B12 313 pg/mL (200-900)
[2025-04-22] MEDS: Metoprolol Succinate ER 100 MG TAB.ER.24H PO (09:06)
[2025-04-22] MEDS: 0.9 % Sodium Chloride Flush 3 ML SYRINGE IVFLUSH ×3 (09:07→20:21)
[2025-04-22] MEDS: oxyCODONE HCl Immed Release 5 MG TABLET PO ×3 (09:17→22:50)
--- NOTE | 2025-04-22 09:51 | HO.PM.IMPN ---
Subjective Subjective Date of Service: 04/22/25 Interval History: Reports feels well, no acute medical complaints Denies chest pain/pressure No abd pain Denies diarrhea Review of Systems Review of Systems: Yes all other systems are reviewed and are negative Physical Exam Exam: Exam: Appearing in no acute distress lung sounds are clear to auscultation heart regular rate rhythm, clear S1, S2 positive bowel sounds, abdomen is soft, nontender neuro patient is alert x3, no focal deficits Vital Signs: Vital Signs: Last Vital Signs Temp 97.7 F 04/22/25 09:15 Pulse 89 04/22/25 09:15 Resp 18 04/22/25 09:15 BP 148/71 H 04/22/25 09:15 Pulse Ox 96 04/22/25 08:00 O2 Del Method Room Air 04/22/25 08:00 BMI result Body Mass Index 22.5 Objective Data Active Medications Acetaminophen (Acetaminophen 325 Mg Tablet) 975 mg PO Q6H PRN PRN Reason: Pain, Mild 1-3,fever,headache Amlodipine Besylate (Amlodipine Besylate 10 Mg Tablet) 10 mg PO DAILY [facility] [place]; Protocol Last Admin: 04/22/25 09:06 Dose: 10 mg Documented By: BESSY Atorvastatin Calcium (Atorvastatin Calcium 10 Mg Tablet) 10 mg PO DAILY [facility] [place] Last Admin: 04/22/25 09:06 Dose: 10 mg Documented By: BESSY Calcium Carbonate (Calcium Carbonate 750 Mg Tab.Chew) 750 mg PO Q4H PRN PRN Reason: Heartburn Dextrose (Dextrose 50 % 25 Gm/50 Ml Syringe) 25 gm IVPUSH Q15M PRN; Protocol PRN Reason: per Hypoglycemia Standing Ord. Finasteride (Finasteride 5 Mg Tablet) 5 mg PO DAILY [facility] [place] Last Admin: 04/22/25 09:06 Dose: 5 mg Documented By: BESSY Glucose (Glucose Gel 15 Gm Gel..Gram.) 15 gm PO Q15M PRN; Protocol PRN Reason: per Hypoglycemia Standing Ord. Hydralazine HCl (Hydralazine Hcl 25 Mg Tablet) 75 mg PO TID [facility] [place]; Protocol Last Admin: 04/22/25 09:06 Dose: 75 mg Documented By: BESSY Hydromorphone HCl (Hydromorphone Hcl 0.5 Mg/0.5 Ml Syringe) 0.25 mg IVPUSH Q4H PRN; Protocol PRN Reason: Pain, Severe (Pain Scale 7-10) Last Admin: 04/20/25 01:43 Dose: 0.25 mg Documented By: DANNY Desmopressin Acetate 20 mcg/ (Sodium Chloride) 55 mls @ 100 mls/hr IV ONCE ONE Stop: 04/24/25 07:32 Insulin Human Lispro (Insulin Lispro 100 Unit/Ml 3 Ml Vial) 0 unit SUBCUT QIDACHS [facility] [place]; Protocol Last Admin: 04/22/25 08:10 Dose: Not Given Documented By: BESSY Non-Admin Reason: No Insulin Coverage Isosorbide Mononitrate (Isosorbide Mononitrate 60 Mg Tab.Er.24h) 60 mg PO DAILY [facility] [place]; Protocol Last Admin: 04/22/25 09:06 Dose: 60 mg Documented By: BESSY Magnesium Hydroxide (Milk Of Magnesia 30 Ml Oral.Susp) 30 ml PO DAILY PRN PRN Reason: Constipation Melatonin (Melatonin 3 Mg Tablet) 6 mg PO BEDTIME PRN PRN Reason: Insomnia Metoprolol Succinate (Metoprolol Succinate Er 100 Mg Tab.Er.24h) 100 mg PO DAILY [facility] [place]; Protocol Last Admin: 04/22/25 09:06 Dose: 100 mg Documented By: BESSY Ondansetron HCl (Ondansetron Hcl 4 Mg/2 Ml Vial) 4 mg IVPUSH Q8H PRN PRN Reason: Nausea and Vomiting Oxycodone HCl (Oxycodone Hcl Immed Release 5 Mg Tablet) 5 mg PO Q6H PRN PRN Reason: Pain, Moderate(Pain Scale 4-6) Last Admin: 04/21/25 08:41 Dose: 5 mg Documented By: MAGALYS Oxycodone HCl (Oxycodone Hcl Immed Release 5 Mg Tablet) 5 mg PO Q6H PRN PRN Reason: Pain, Severe (Pain Scale 7-10) Last Admin: 04/22/25 09:17 Dose: 5 mg Documented By: BESSY Sodium Bicarbonate (Sodium Bicarbonate 650 Mg Tablet) 650 mg PO TID [facility] [place] Last Admin: 04/22/25 09:06 Dose: 650 mg Documented By: BESSY Sodium Chloride (0.9 % Sodium Chloride Flush 3 Ml Syringe) 3 ml IVFLUSH QSHIFT [facility] [place] Last Admin: 04/22/25 09:07 Dose: 3 ml Documented By: BESSY Sodium Zirconium Cyclosilicate (Sodium Zirconium Cyclosilicate 10 Gm Powd.Pack) 10 gm PO DAILY [facility] [place] Last Admin: 04/22/25 09:44 Dose: Not Given Documented By: BESSY Non-Admin Reason: Physician Held Med Tamsulosin HCl (Tamsulosin Hcl 0.4 Mg Capsule) 0.4 mg PO DAILY [facility] [place] Last Admin: 04/22/25 09:06 Dose: 0.4 mg Documented By: BESSY Tiotropium [place] (Tiotropium [place] 2.5 Mcg 1 Puff/2.5 Mcg Mist.Inhal) 2 puff INHALE RDAILY [facility] [place] Last Admin: 04/22/25 08:05 Dose: 2 puff Documented By: TRISTIN Labs 04/22/25 07:07 04/22/25 07:07 Labs: Laboratory Results - last 24 hr 04/21/25 04/21/25 04/21/25 10:12 11:04 11:39 MCV MCH MCHC RDW Plt Count MPV Absolute Nucleated RBC Nucleated RBC % (auto) Anion Gap Estim Creat Clear Calc Estimated GFR POC Glucose 140 H Random Glucose Calcium Magnesium Iron TIBC % Saturation Unsat Iron Binding Vitamin B12 Folate Ur 24 Hour Volume Ur Creatinine mg/dL Ur Creatinine 24 Hour Creat Clearance 24 Hr Stool Occult Blood NEGATIVE Stl C. cayetanensis PCR Not Detected Stool Rotavirus A PCR Not Detected Stl Adenov F 40/41 PCR Not Detected Stool Astrovirus (PCR) Not Detected Stool Campylobacter PCR Not Detected Stool Cryptosporidium PCR Not Detected Stl Sh Tox Pr E STEC PCR Not Detected Stool E coli O157 PCR Not applicable Stl Enterotoxigenic E PCR Not Detected Stool EPEC (PCR) Not Detected Stool EAEC (PCR) Not Detected Stl E. histolytica PCR Not Detected Stool Giardia Lamblia PCR Not Detected Stl P. shigelloides PCR Not Detected Stool Salmonella PCR Not Detected Stool Sapovirus (PCR) Not Detected Stl Shigella/EIEC PCR Not Detected St Y.enterocolitica PCR Not Detected Stool Vibrio (PCR) Not Detected Stl Vibrio cholerae PCR Not Detected Stl Norovirus GI/GII PCR Detected A C. difficile Tox B Gene Blood Type A Negative Antibody Screen NEGATIVE Crossmatch See Detail 04/21/25 04/21/25 04/21/25 11:40 16:43 20:38 MCV MCH MCHC RDW Plt Count MPV Absolute Nucleated RBC Nucleated RBC % (auto) Anion Gap Estim Creat Clear Calc Estimated GFR POC Glucose 144 H 124 H Random Glucose Calcium Magnesium Iron TIBC % Saturation Unsat Iron Binding Vitamin B12 Folate Ur 24 Hour Volume Ur Creatinine mg/dL Ur Creatinine 24 Hour Creat Clearance 24 Hr Stool Occult Blood Stl C. cayetanensis PCR Stool Rotavirus A PCR Stl Adenov F 40/ PCR Stool Astrovirus (PCR) Stool Campylobacter PCR Stool Cryptosporidium PCR Stl Sh Tox Pr E STEC PCR Stool E coli O157 PCR Stl Enterotoxigenic E PCR Stool EPEC (PCR) Stool EAEC (PCR) Stl E. histolytica PCR Stool Giardia Lamblia PCR Stl P. shigelloides PCR Stool Salmonella PCR Stool Sapovirus (PCR) Stl Shigella/EIEC PCR St Y.enterocolitica PCR Stool Vibrio (PCR) Stl Vibrio cholerae PCR Stl Norovirus GI/GII PCR C. difficile Tox B Gene NEGATIVE Blood Type Antibody Screen Crossmatch 04/22/25 04/22/25 04/22/25 06:15 07:07 07:52 MCV 87.5 MCH 28.6 MCHC 32.7 RDW 15.6 Plt Count 275 MPV 9.4 Absolute Nucleated RBC 0.000 Nucleated RBC % (auto) 0.0 Anion Gap 16 Estim Creat Clear Calc 9.2 Estimated GFR 6 POC Glucose 92 Random Glucose 96 Calcium 7.8 L Magnesium 1.9 Iron 29 L TIBC 136 L % Saturation 21 Unsat Iron Binding 107 Vitamin B12 313 Folate 4.9 Ur 24 Hour Volume 875 Ur Creatinine mg/dL 53.73 Ur Creatinine 24 Hour 0.5 L Creat Clearance 24 Hr 3.9 L Stool Occult Blood Stl C. cayetanensis PCR Stool Rotavirus A PCR Stl Adenov F 40/41 PCR Stool Astrovirus (PCR) Stool Campylobacter PCR Stool Cryptosporidium PCR Stl Sh Tox Pr E STEC PCR Stool E coli O157 PCR Stl Enterotoxigenic E PCR Stool EPEC (PCR) Stool EAEC (PCR) Stl E. histolytica PCR Stool Giardia Lamblia PCR Stl P. shigelloides PCR Stool Salmonella PCR Stool Sapovirus (PCR) Stl Shigella/EIEC PCR St Y.enterocolitica PCR Stool Vibrio (PCR) Stl Vibrio cholerae PCR Stl Norovirus GI/GII PCR C. difficile Tox B Gene Blood Type Antibody Screen Crossmatch Assessment and Plan (1) Elevated troponin: Status: Acute (2) Acute kidney injury superimposed on CKD: Status: Acute Plan Patient is a 65-year-old male with a past medical history significant for mild COPD, CKD [address] Ruiz, anemia of chronic disease receiving EPO, HTN, T2 dm (PRN insulin), s/p right BKA, cardiomyopathy, paroxysmal AFib (currently holding Xarelto), HFrEF, osteomyelitis/septic arthritis, hyperparathyroid, and WENDY, who presented to the ED per recommendation of Dr. Ruiz due to shortness of breath for the past month, diarrhea for the past 2 weeks and anemia. UMAIR on CKD Creatinine slighty worseing, now 8.13-->8.35 Sent to ED by nephrology for inpatient renal biopsy IR needs SBP <140 for biopsy, currently scheduled for Tuesday 04/24 Nephrology following Avoid nephrotoxins, monitor BMP Acute on chronie anemia of chronic disease Hemoglobin worsening 8.1 -->7.7 Received Procrit om 04/[address] Ruiz Occult blood stool negative; no obvious bleeding Will transfuse 1 unit PRBC today and tomorrow 04/22 Monitor CBC, transfuse as necessary Acute on chronic HFrEF exacerbation, pulmonary edema Shortness of breath x1 mo, BNP 3105 No leukocytosis, vitals stable, afebrile, no evidence of infection Echo 02/26 EF 40-45% CXR with moderate interstitial edema Given 80 mg IV Lasix in ED on 04/19, re-evaluate for continued diuretics Monitor CBC and BMP Elevated troponin, NSTEMI Troponins 6182.5-->4915.6-->2419.9 Pt asymptomatic, EKG without ischemic changes Likely elevated secondary to demand, though possible underlying CAD Anticoagulation held due to anemia Cardio following>no treatment or intervention necessary given anemia and comorbidities echocardiogram> EF 35-40% moderate global hypokinesis Monitor on telemetry Hyperchloremic metabolic acidosis Secondary to UMAIR Continue sodium bicarb 650mg tid Monitor BMP Diarrhea Ongoing x2 weeks, improved C diff negative, positive for norovirus Contact precautions Supportive care Mild COPD, no acute exacerbation Continue home meds HTN IR needs better BP control, SBP <140 Continue home meds Monitor BP and alter meds as necessary Type 2 diabetes Diabetic diet/low potassium diet Sliding scale insulin Paroxysmal AFib EKG without AFib Holding Xarelto and anticoagulants due to anemia Rate controlled currently Chronic left foot diabetic foot ulcer Followed by wound care but pt reports he has not been compliant Wound care consult Full code VTE prophylaxis: Pneumoboots Patient with UMAIR on CKD complicated by pulmonary edema and NSTEMI, requiring continued hospitalization while awaiting renal biopsy and monitoring labs and cardiac function. Quality Stroke Does the patient have a stroke diagnosis?: No VTE Prior VTE?: No VTE Risk Level:: Medical - moderate - high VTE Device Contraindication: N/A - Device Ordered VTE Drug Contraindication: Treatment Not Indicated
[2025-04-22 11:12] LABS: Glucose, Whole Blood 106 mg/dL (60-115)
[2025-04-22 16:13] LABS: Glucose, Whole Blood 137 mg/dL (60-115)
[2025-04-22 20:09] LABS: Glucose, Whole Blood 117 mg/dL (60-115)
[2025-04-22 21:35] LABS: Glucose, Whole Blood 143 mg/dL (60-115)
[2025-04-23] VITALS (7 sets, daily range): BP systolic 139–156; BP diastolic 63–67; PULSE 56–88; RESP 16–20; TEMP 36.3–36.8; O2SAT 92–97
[2025-04-23] MEDS: Tiotropium Bromide 2.5 mcg 1 PUFF/2.5 MCG MIST.INHAL 2 PUFF INHALE (07:52)
[2025-04-23 07:54] LABS: Glucose, Whole Blood 98 mg/dL (60-115)
[2025-04-23] MEDS: Metoprolol Succinate ER 100 MG TAB.ER.24H PO (09:27)
[2025-04-23] MEDS: oxyCODONE HCl Immed Release 5 MG TABLET PO ×2 (09:30→17:01)
[2025-04-23] MEDS: 0.9 % Sodium Chloride Flush 3 ML SYRINGE IVFLUSH ×3 (09:30→21:19)
--- NOTE | 2025-04-23 09:53 | P.PNIM_ITS ---
Subjective Subjective Date of Service: 04/23/25 Interval History: Reports feels well, no acute medical complaints Denies chest pain/pressure No abd pain Denies diarrhea Review of Systems Review of Systems: Yes all other systems are reviewed and are negative Physical Exam 2 Vital Signs: Vital Signs: Last Vital Signs Temp 98.2 F 04/23/25 08:00 Pulse 86 04/23/25 08:00 Resp 18 04/23/25 08:00 BP 144/63 H 04/23/25 08:00 Pulse Ox 92 04/23/25 08:00 O2 Del Method Room Air 04/23/25 08:00 BMI result Body Mass Index 22.5 Objective Data Active Medications Acetaminophen (Acetaminophen 325 Mg Tablet) 975 mg PO Q6H PRN PRN Reason: Pain, Mild 1-3,fever,headache Amlodipine Besylate (Amlodipine Besylate 10 Mg Tablet) 10 mg PO DAILY [facility]; Protocol Last Admin: 04/23/25 09:27 Dose: 10 mg Documented By: BESSY Atorvastatin Calcium (Atorvastatin Calcium 10 Mg Tablet) 10 mg PO DAILY [facility] Last Admin: 04/23/25 09:27 Dose: 10 mg Documented By: BESSY Calcium Carbonate (Calcium Carbonate 750 Mg Tab.Chew) 750 mg PO Q4H PRN PRN Reason: Heartburn Dextrose (Dextrose 50 % 25 Gm/50 Ml Syringe) 25 gm IVPUSH Q15M PRN; Protocol PRN Reason: per Hypoglycemia Standing Ord. Finasteride (Finasteride 5 Mg Tablet) 5 mg PO DAILY [facility] Last Admin: 04/23/25 09:27 Dose: 5 mg Documented By: BESSY Glucose (Glucose Gel 15 Gm Gel..Gram.) 15 gm PO Q15M PRN; Protocol PRN Reason: per Hypoglycemia Standing Ord. Hydralazine HCl (Hydralazine Hcl 25 Mg Tablet) 75 mg PO TID [facility]; Protocol Last Admin: 04/23/25 09:27 Dose: 75 mg Documented By: BESSY Hydromorphone HCl (Hydromorphone Hcl 0.5 Mg/0.5 Ml Syringe) 0.25 mg IVPUSH Q4H PRN; Protocol PRN Reason: Pain, Severe (Pain Scale 7-10) Last Admin: 04/20/25 01:43 Dose: 0.25 mg Documented By: DANNY Desmopressin Acetate 20 mcg/ (Sodium Chloride) 55 mls @ 100 mls/hr IV ONCE ONE Stop: 04/24/25 07:32 Insulin Human Lispro (Insulin Lispro 100 Unit/Ml 3 Ml Vial) 0 unit SUBCUT QIDACHS [facility]; Protocol Last Admin: 04/23/25 07:55 Dose: Not Given Documented By: BESSY Non-Admin Reason: No Insulin Coverage Isosorbide Mononitrate (Isosorbide Mononitrate 60 Mg Tab.Er.24h) 60 mg PO DAILY [facility]; Protocol Last Admin: 04/23/25 09:27 Dose: 60 mg Documented By: BESSY Magnesium Hydroxide (Milk Of Magnesia 30 Ml Oral.Susp) 30 ml PO DAILY PRN PRN Reason: Constipation Melatonin (Melatonin 3 Mg Tablet) 6 mg PO BEDTIME PRN PRN Reason: Insomnia Metoprolol Succinate (Metoprolol Succinate Er 100 Mg Tab.Er.24h) 100 mg PO DAILY [facility]; Protocol Last Admin: 04/23/25 09:27 Dose: 100 mg Documented By: BESSY Ondansetron HCl (Ondansetron Hcl 4 Mg/2 Ml Vial) 4 mg IVPUSH Q8H PRN PRN Reason: Nausea and Vomiting Oxycodone HCl (Oxycodone Hcl Immed Release 5 Mg Tablet) 5 mg PO Q6H PRN PRN Reason: Pain, Moderate(Pain Scale 4-6) Last Admin: 04/21/25 08:41 Dose: 5 mg Documented By: MAGALYS Oxycodone HCl (Oxycodone Hcl Immed Release 5 Mg Tablet) 5 mg PO Q6H PRN PRN Reason: Pain, Severe (Pain Scale 7-10) Last Admin: 04/23/25 09:30 Dose: 5 mg Documented By: BESSY Sodium Bicarbonate (Sodium Bicarbonate 650 Mg Tablet) 650 mg PO TID [facility] Last Admin: 04/23/25 09:27 Dose: 650 mg Documented By: BESSY Sodium Chloride (0.9 % Sodium Chloride Flush 3 Ml Syringe) 3 ml IVFLUSH QSHIFT [facility] Last Admin: 04/23/25 09:30 Dose: 3 ml Documented By: BESSY Sodium Zirconium Cyclosilicate (Sodium Zirconium Cyclosilicate 10 Gm Powd.Pack) 10 gm PO DAILY [facility] Last Admin: 04/22/25 09:44 Dose: Not Given Documented By: BESSY Non-Admin Reason: Physician Held Med Tamsulosin HCl (Tamsulosin Hcl 0.4 Mg Capsule) 0.4 mg PO DAILY [facility] Last Admin: 04/23/25 09:27 Dose: 0.4 mg Documented By: BESSY Tiotropium [place] (Tiotropium [place] 2.5 Mcg 1 Puff/2.5 Mcg Mist.Inhal) 2 puff INHALE RDAILY [facility] Last Admin: 04/23/25 07:52 Dose: 2 puff Documented By: BLASCNeena Labs 04/22/25 07:07 04/22/25 07:07 Labs: Laboratory Results - last 24 hr 04/21/25 04/22/25 04/22/25 10:12 11:07 16:09 POC Glucose 106 137 H Crossmatch See Detail 04/22/25 04/22/25 04/23/25 20:05 21:29 07:47 POC Glucose 117 H 143 H 98 Crossmatch Assessment and Plan (1) Elevated troponin: Status: Acute (2) Acute kidney injury superimposed on CKD: Status: Acute Plan Patient is a 65-year-old male with a past medical history significant for mild COPD, CKD [address] Ruiz, anemia of chronic disease receiving EPO, HTN, T2 dm (PRN insulin), s/p right BKA, cardiomyopathy, paroxysmal AFib (currently holding Xarelto), HFrEF, osteomyelitis/septic arthritis, hyperparathyroid, and WENDY, who presented to the ED per recommendation of Dr. Ruiz due to shortness of breath for the past month, diarrhea for the past 2 weeks and anemia. UMAIR on CKD Creatinine slighty worseing, now 8.13-->8.35 Sent to ED by nephrology for inpatient renal biopsy IR needs SBP <140 for biopsy, currently scheduled for Tuesday 04/24 Nephrology following Avoid nephrotoxins, monitor BMP Acute on chronic anemia of chronic disease Hemoglobin worsening 8.1 -->7.7 Received Procrit 04/[address] Ruiz Occult blood stool negative; no obvious bleeding 2 unit PRBC today and tomorrow 04/22 Monitor CBC, transfuse as necessary Acute on chronic HFrEF exacerbation, pulmonary edema Shortness of breath x1 mo, BNP 3105 No leukocytosis, vitals stable, afebrile, no evidence of infection Echo 02/26 EF 40-45% CXR with moderate interstitial edema Given 80 mg IV Lasix in ED on 04/19, re-evaluate for continued diuretics Monitor CBC and BMP Elevated troponin, NSTEMI Troponins 6182.5-->4915.6-->2419.9 Pt asymptomatic, EKG without ischemic changes Likely elevated secondary to demand, though possible underlying CAD Anticoagulation held due to anemia Cardio following>no treatment or intervention necessary given anemia and comorbidities echocardiogram> EF 35-40% moderate global hypokinesis Monitor on telemetry Hyperchloremic metabolic acidosis Secondary to UMAIR Continue sodium bicarb 650mg tid Monitor BMP Diarrhea Ongoing x2 weeks, improved C diff negative, positive for norovirus Contact precautions Supportive care Mild COPD, no acute exacerbation Continue home meds HTN IR needs better BP control, SBP <140 Continue home meds Monitor BP and alter meds as necessary Type 2 diabetes Diabetic diet/low potassium diet Sliding scale insulin Paroxysmal AFib EKG without AFib Holding Xarelto and anticoagulants due to anemia Rate controlled currently Chronic left foot diabetic foot ulcer Followed by wound care but pt reports he has not been compliant Wound care consult Full code VTE prophylaxis: Pneumoboots Quality Stroke Does the patient have a stroke diagnosis?: No VTE Prior VTE?: No VTE Risk Level:: Medical - moderate - high VTE Device Contraindication: N/A - Device Ordered VTE Drug Contraindication: Treatment Not Indicated
[2025-04-23 11:09] LABS: Glucose, Whole Blood 100 mg/dL (60-115)
--- NOTE | 2025-04-23 13:04 | HO.SKINPHOTO ---
Location: medial L foot Location: lateral L foot
--- NOTE | 2025-04-23 13:11 | P.PNCA_ITS ---
Subjective Subjective Date of Service: 04/23/25 Interval history: He states that he feels okay. No new cardiac complaints. Denies any angina. Review of Systems Review of Systems Yes all other systems are reviewed and are negative Constitutional: Reports as per HPI and Reports no additional constitutional complaints Eyes: Reports as per HPI and Denies no additional eye complaints Denies system reviewed and no additional complaints, except as documented and Reports as per HPI Cardiovascular: Reports as per HPI, Reports no additional cardiovascular complaints, Denies acrocyanosis, Denies cool extremities, Denies chest pain, Denies leg edema, Denies lightheadedness, Denies palpitations and Denies dyspnea Respiratory: Reports as per HPI, Denies no additional respiratory complaints and Denies dyspnea Gastrointestinal: Reports as per HPI and Denies no additional gastrointestinal complaints Genitourinary: Reports no additional male genitourinary complaints and Reports as per HPI Musculoskeletal: Reports no additional musculoskeletal complaints and Reports as per HPI Skin/Breast: Reports system reviewed and no additional complaints, except as docu Reports system reviewed and no additional complaints, except as documented and Reports as per HPI Psychiatric: Reports no additional psychiatric complaints and Reports as per HPI Endocrine: Reports no additional endocrine complaints, Reports as per HPI and Denies palpitations Hematologic/Lymphatic: Reports no additional hematologic/lymphatic complaints and Reports as per HPI Allergic/Immunologic: Reports no additional allergic/immunologic complaints and Reports as per HPI Physical Exam Vital Signs: Last Vital Signs Temp 97.8 F 04/23/25 11:41 Pulse 56 04/23/25 11:41 Resp 20 04/23/25 11:41 BP 156/67 H 04/23/25 11:41 Pulse Ox 96 04/23/25 11:41 O2 Del Method Room Air 04/23/25 11:41 BMI result Body Mass Index 22.5 Const General: comfortable and no acute distress Orientation/consciousness: patient oriented x3 HEENT Other: Unremarkable Head: Yes normal to inspection Neck Neck: Yes normal visual inspection Chest Chest palpation & inspection: normal inspection of the chest Resp Auscultation: clear to auscultation bilaterally Cardio Palpation: normal PMI Heart sounds: S1 normal heart sound present, S2 normal heart sound present, no gallops, no murmurs and no rubs GI Palpation (GI): Soft to palpation Back/Spine/Pelvis Other: unremarkable Skin General skin exam: no rashes or lesions noted Neuro General: patient oriented x3 Extrem General: Yes normal to inspection Psych Mental Status: mental status grossly normal Objective Labs and Meds 04/22/25 07:07 04/22/25 07:07 Lab results: Laboratory Results - last 24 hr 04/22/25 04/22/25 04/22/25 16:09 20:05 21:29 POC Glucose 137 H 117 H 143 H 04/23/25 04/23/25 07:47 10:48 POC Glucose 98 100 Progress Note: A&P Assessment and plan (1) NSTEMI (non-ST elevated myocardial infarction): Status: Acute (2) Acute kidney injury superimposed on CKD: Status: Acute (3) Anemia in chronic kidney disease (CKD): Status: Acute Plan High sensitivity troponin levels are 6000s, 4000s and 2000s. Elevated creatinine at 8.36. It has been high for the last couple of months but in December it was 2.8. Hemoglobin as low as 6.6. Clinically, he has got no angina or any ischemic symptoms. Echocardiogram with LVEF of 35-40%. In February of this year, described to be 40- 45%. Overall, no substantial change. Overall, elevated troponins in the setting of severe anemia and severe renal insufficiency. But no angina. With the extent of his comorbidities, could have underlying coronary disease but he is not suitable for ischemic workup in this setting. Pursued renal workup including biopsy as planned. With regard to medications, aspirin. Moderate to high-dose statins if approved by renal. He is already on beta-blockers. Follow up in clinic upon discharge. Time Spent With Patient Time: Total time managing care of this patient today ____ minutes. Progress Note: Quality Stroke Does the patient have a stroke diagnosis?: No Procedures Date of Service Date of Service: 04/23/25
[2025-04-23 16:43] LABS: Glucose, Whole Blood 151 mg/dL (60-115)
[2025-04-23 20:34] LABS: Glucose, Whole Blood 135 mg/dL (60-115)
[2025-04-24] VITALS (20 sets, daily range): BP systolic 114–151; BP diastolic 54–72; PULSE 70–89; RESP 12–22; TEMP 36.3–36.7; O2SAT 94–100
[2025-04-24] MEDS: oxyCODONE HCl Immed Release 5 MG TABLET PO ×3 (05:06→17:04)
[2025-04-24 07:10] LABS: Hematocrit 26.1 % (42.0-52.0); Hemoglobin 8.4 g/dl (14.0-18.0); Mean Corpuscular HGB Conc 32.2 g/dl (31.0-36.0); Mean Corpuscular Hemoglobin 29.0 pg (27.0-33.0); Mean Corpuscular Volume 90.0 fL (80.0-98.0); NRBC Abs Auto 0.020 X10*3/uL (0.0-0.012); NRBC Pct Auto 0.3 /100WBC (0.0-0.2); Platelet Count 278 X10*3/uL (160-400); Red Blood Count 2.90 X10*6/uL (4.60-5.80); White Blood Count 7.5 X10*3/uL (4.8-10.8)
[2025-04-24 07:30] LABS: Anion Gap 15 (12-20); Blood Urea Nitrogen 64 mg/dL (9-16); Calcium 8.0 mg/dL (8.4-10.2); Carbon Dioxide 18 mmol/L (22-29); Chloride 112 mmol/L (96-108); Creatinine Clr Calc Pharmacy 9.3; Estimated Glomerular Filt Rate 7; Potassium 4.6 mmol/L (3.3-5.1); Sodium 140 mmol/L (135-145)
[2025-04-24 07:39] LABS: Glucose, Whole Blood 97 mg/dL (60-115)
[2025-04-24] MEDS: Metoprolol Succinate ER 100 MG TAB.ER.24H PO (07:49)
[2025-04-24] MEDS: 0.9 % Sodium Chloride Flush 3 ML SYRINGE IVFLUSH ×3 (07:49→21:19)
[2025-04-24] MEDS: Tiotropium Bromide 2.5 mcg 1 PUFF/2.5 MCG MIST.INHAL 2 PUFF INHALE (07:52)
--- NOTE | 2025-04-24 10:09 | P.PNNP_ITS ---
Subjective Subjective Date of Service: 04/24/25 Interval history: following for UMAIR on CKD and component of progression of renal disease. per IR plan for renal biopsy today. Patient states he is feeling well at bedside today. Denies changes/concerns/new symptoms. Creatinine has been fairly stable. 24 hour urine creatinine clearance is 3.9, though electrolytes are normal and patient does not have any uremic symptoms, continues to make urine. Physical Exam 2 Vital Signs: Vital Signs: Last Vital Signs Temp 97.8 F 04/24/25 09:51 Pulse 81 04/24/25 09:51 Resp 8 L 04/24/25 09:51 BP 137/59 L 04/24/25 09:51 Pulse Ox 94 04/24/25 07:37 O2 Del Method Room Air 04/24/25 07:37 BMI result Body Mass Index 22.5 Const: General: no acute distress, alert and awake Resp: Effort & Inspection: normal respiratory effort and able to speak in complete sentences Auscultation: clear to auscultation bilaterally Cardio: Rate: regular rate Rhythm: regular rhythm Heart sounds: S1 normal heart sound present and S2 normal heart sound present GI: Palpation (GI): Soft to palpation and nontender : General: Yes no CVA tenderness Back/Spine/Pelvis: Back: no CVA tenderness Skin: Rashes: no rashes Neuro: Other: no asterixis, no tremor. Extrem: General: Yes edema (trace LLE edema (right BKA). ) Objective Data Labs 04/24/25 05:54 04/24/25 05:54 Labs: Laboratory Results - last 24 hr 04/21/25 04/23/25 04/23/25 10:12 10:48 16:39 WBC RBC Hgb Hct MCV MCH MCHC RDW Plt Count MPV Absolute Nucleated RBC Nucleated RBC % (auto) Sodium Potassium Chloride Carbon Dioxide Anion Gap BUN Creatinine Estim Creat Clear Calc Estimated GFR POC Glucose 100 151 H Random Glucose Calcium Blood Type A Negative Antibody Screen NEGATIVE Crossmatch See Detail 04/23/25 04/24/25 04/24/25 20:30 05:54 07:35 WBC 7.5 RBC 2.90 L Hgb 8.4 L Hct 26.1 L MCV 90.0 MCH 29.0 MCHC 32.2 RDW 15.8 Plt Count 278 MPV 10.1 Absolute Nucleated RBC 0.020 H Nucleated RBC % (auto) 0.3 H Sodium 140 Potassium 4.6 Chloride 112 H Carbon Dioxide 18 L Anion Gap 15 BUN 64 H Creatinine 8.28 H* Estim Creat Clear Calc 9.3 Estimated GFR 7 POC Glucose 135 H 97 Random Glucose 96 Calcium 8.0 L Blood Type Antibody Screen Crossmatch Procedures Date of Service Date of Service: 04/24/25 Assessment & Plan Assessment and plan (1) Acute kidney injury superimposed on CKD: Status: Acute (2) Hypertension: Status: Acute Plan Advanced kidney disease from diabetes, hypertension and vascular disease, progressive CKD with recent UMAIR due to ATN with component of CKD progression. 24 hour urine creatinine clearance 3.9- this is inconsistent with lack of uremic symptoms, stable electrolytes, patient also continues to make over a liter of urine daily. No indication for renal replacement at this time. Will continue with plan for renal biopsy today- patient to get DDAVP prior to biopsy. blood pressures improved this a.m., 143/61. Continue amlodipine 10mg daily, increase hydralazine to 100mg PO TID, metoprolol 100mg daily, increase imdur to 90mg daily as patient needs tight BP control for renal biopsy. Pt at risk for cardiac morbidity due to advanced CKD- per cardiology, had NSTEMI from demand ischemia in setting of severe anemia and renal isufficiency, though clinically he has no ischemic symtoms- per cardiology not suitable for ischemic workup in current setting and will follow up with cardiology as outpatient. Patient has had a stable H&H, stool occult negative. Recommend additional unit of blood today given heart failure and hemoglobin remains low today. metabolic acidosis- continue sodium bicarb 650mg PO TID plan for urgent renal biopsy as inpatient to better evaluate underlying cause of renal failure and prognosis- per IR plan for biopsy today at 11:00. DDAVP prior to renal biopsy to reduce risk of bleeding. No immediate indication for renal replacement at this time. Recommend daily renal function and electrolyte studies Recommend regular blood pressure checks, close I&O monitoring Recommend avoiding nephrotoxins Continue supportive care Discussed with Dr Ruiz. Time Spent With Patient Time: Total time managing care of this patient today ____ minutes. Progress Note: Quality Stroke Does the patient have a stroke diagnosis?: No
--- NOTE | 2025-04-24 11:24 | MHC.CM.PN ---
EMR reviewed and per MD rounds, pt is not medically cleared for discharge due to management of UMAIR on CKD and anemia, with kidney biopsy pending and awaiting blood transfusion.
--- NOTE | 2025-04-24 11:42 | P.PNIM_ITS ---
Subjective Subjective Date of Service: 04/24/25 Interval History: Reports feels well, no acute medical complaints Denies chest pain/pressure No abd pain Denies diarrhea Review of Systems Review of Systems: Yes all other systems are reviewed and are negative Physical Exam 2 Exam: Exam: Appearing in no acute distress lung sounds are clear to auscultation heart regular rate rhythm, clear S1, S2 positive bowel sounds, abdomen is soft, nontender neuro patient is alert x3, no focal deficits Vital Signs: Vital Signs: Last Vital Signs Temp 97.8 F 04/24/25 09:51 Pulse 81 04/24/25 09:51 Resp 18 04/24/25 09:51 BP 137/59 L 04/24/25 09:51 Pulse Ox 94 04/24/25 07:37 O2 Del Method Room Air 04/24/25 07:37 BMI result Body Mass Index 22.5 Objective Data Active Medications Acetaminophen (Acetaminophen 325 Mg Tablet) 975 mg PO Q6H PRN PRN Reason: Pain, Mild 1-3,fever,headache Amlodipine Besylate (Amlodipine Besylate 10 Mg Tablet) 10 mg PO DAILY [facility]; Protocol Last Admin: 04/24/25 05:06 Dose: 10 mg Documented By: MONIKA Atorvastatin Calcium (Atorvastatin Calcium 10 Mg Tablet) 10 mg PO DAILY [facility] Last Admin: 04/24/25 07:48 Dose: 10 mg Documented By: BESSY Calcium Carbonate (Calcium Carbonate 750 Mg Tab.Chew) 750 mg PO Q4H PRN PRN Reason: Heartburn Dextrose (Dextrose 50 % 25 Gm/50 Ml Syringe) 25 gm IVPUSH Q15M PRN; Protocol PRN Reason: per Hypoglycemia Standing Ord. Finasteride (Finasteride 5 Mg Tablet) 5 mg PO DAILY [facility] Last Admin: 04/24/25 07:48 Dose: 5 mg Documented By: BESSY Glucose (Glucose Gel 15 Gm Gel..Gram.) 15 gm PO Q15M PRN; Protocol PRN Reason: per Hypoglycemia Standing Ord. Hydralazine HCl (Hydralazine Hcl 50 Mg Tablet) 100 mg PO TID [facility]; Protocol Last Admin: 04/24/25 08:00 Dose: 100 mg Documented By: BESSY Hydromorphone HCl (Hydromorphone Hcl 0.5 Mg/0.5 Ml Syringe) 0.25 mg IVPUSH Q4H PRN; Protocol PRN Reason: Pain, Severe (Pain Scale 7-10) Last Admin: 04/20/25 01:43 Dose: 0.25 mg Documented By: DANNY Insulin Human Lispro (Insulin Lispro 100 Unit/Ml 3 Ml Vial) 0 unit SUBCUT QIDACHS [facility]; Protocol Last Admin: 04/24/25 07:49 Dose: Not Given Documented By: BESSY Non-Admin Reason: No Insulin Coverage Isosorbide Mononitrate (Isosorbide Mononitrate 30 Mg Tab.Er.24h) 90 mg PO DAILY [facility]; Protocol Last Admin: 04/24/25 08:06 Dose: 30 mg Documented By: BESSY Comments: given 60mg from prior order Magnesium Hydroxide (Milk Of Magnesia 30 Ml Oral.Susp) 30 ml PO DAILY PRN PRN Reason: Constipation Melatonin (Melatonin 3 Mg Tablet) 6 mg PO BEDTIME PRN PRN Reason: Insomnia Metoprolol Succinate (Metoprolol Succinate Er 100 Mg Tab.Er.24h) 100 mg PO DAILY [facility]; Protocol Last Admin: 04/24/25 07:49 Dose: 100 mg Documented By: BESSY Ondansetron HCl (Ondansetron Hcl 4 Mg/2 Ml Vial) 4 mg IVPUSH Q8H PRN PRN Reason: Nausea and Vomiting Oxycodone HCl (Oxycodone Hcl Immed Release 5 Mg Tablet) 5 mg PO Q6H PRN PRN Reason: Pain, Moderate(Pain Scale 4-6) Last Admin: 04/24/25 05:06 Dose: 5 mg Documented By: MONIKA Oxycodone HCl (Oxycodone Hcl Immed Release 5 Mg Tablet) 5 mg PO Q6H PRN PRN Reason: Pain, Severe (Pain Scale 7-10) Last Admin: 04/24/25 07:55 Dose: 5 mg Documented By: BESSY Sodium Bicarbonate (Sodium Bicarbonate 650 Mg Tablet) 650 mg PO TID [facility] Last Admin: 04/24/25 07:48 Dose: 650 mg Documented By: BESSY Sodium Chloride (0.9 % Sodium Chloride Flush 3 Ml Syringe) [facility] Last Admin: 04/24/25 07:49 Dose: 3 ml Documented By: BESSY Tamsulosin HCl (Tamsulosin Hcl 0.4 Mg Capsule) 0.4 mg PO DAILY [facility] Last Admin: 04/24/25 07:48 Dose: 0.4 mg Documented By: BESSY Tiotropium Hastings (Tiotropium Hastings 2.5 Mcg 1 Puff/2.5 Mcg Mist.Inhal) 2 puff INHALE RDAILY [facility] Last Admin: 04/24/25 07:52 Dose: 2 puff Documented By: YOUNG Labs 04/24/25 05:54 04/24/25 05:54 Labs: Laboratory Results - last 24 hr 04/21/25 04/23/25 04/23/25 10:12 16:39 20:30 MCV MCH MCHC RDW Plt Count MPV Absolute Nucleated RBC Nucleated RBC % (auto) Anion Gap Estim Creat Clear Calc Estimated GFR POC Glucose 151 H 135 H Random Glucose Calcium Blood Type A Negative Antibody Screen NEGATIVE Crossmatch See Detail 04/24/25 04/24/25 05:54 07:35 MCV 90.0 MCH 29.0 MCHC 32.2 RDW 15.8 Plt Count 278 MPV 10.1 Absolute Nucleated RBC 0.020 H Nucleated RBC % (auto) 0.3 H Anion Gap 15 Estim Creat Clear Calc 9.3 Estimated GFR 7 POC Glucose 97 Random Glucose 96 Calcium 8.0 L Blood Type Antibody Screen Crossmatch Assessment and Plan (1) Elevated troponin: Status: Acute (2) Acute kidney injury superimposed on CKD: Status: Acute Plan 65-year-old male with a past medical history significant for mild COPD, CKD [address] Ruiz, anemia of chronic disease receiving EPO, HTN, T2 dm (PRN insulin), s/p right BKA, cardiomyopathy, paroxysmal AFib (currently holding Xarelto), HFrEF, osteomyelitis/septic arthritis, hyperparathyroid, and WENDY, who presented to the ED per recommendation of Dr. Ruiz due to shortness of breath for the past month, diarrhea for the past 2 weeks and anemia. UMAIR on CKD Creatinine slighty worseing, now 8.13-->8.28 IR needs SBP <140 for biopsy, currently scheduled for today, DDAVP prior Nephrology following Avoid nephrotoxins, monitor BMP Acute on chronic anemia of chronic disease Hemoglobin worsening stable Received Procrit 04/[address] Ruiz Occult blood stool negative; no obvious bleeding s/p 2 unit PRBC Monitor CBC, transfuse as necessary Nephrology recommend 1 unit PRBC to be transfused today Acute on chronic HFrEF exacerbation, pulmonary edema Shortness of breath x1 mo, BNP 3105 No leukocytosis, vitals stable, afebrile, no evidence of infection Echo 02/26 EF 40-45% CXR with moderate interstitial edema s/p IV Lasix in ED on 04/19 Monitor CBC and BMP Elevated troponin, NSTEMI Troponins 6182.5-->4915.6-->2419.9 Pt asymptomatic, EKG without ischemic changes Likely elevated secondary to demand, though possible underlying CAD Anticoagulation held due to anemia Cardio following>no treatment or intervention necessary given anemia and comorbidities echocardiogram> EF 35-40% moderate global hypokinesis Monitor on telemetry Hyperchloremic metabolic acidosis Secondary to UMAIR Continue sodium bicarb 650mg tid Monitor BMP Diarrhea Ongoing x2 weeks, improved C diff negative, positive for norovirus Contact precautions Supportive care Mild COPD, no acute exacerbation Continue home meds HTN Continue home meds Monitor BP and alter meds as necessary Type 2 diabetes Diabetic diet/low potassium diet Sliding scale insulin Paroxysmal AFib EKG without AFib Holding Xarelto and anticoagulants due to anemia Rate controlled currently Chronic left foot diabetic foot ulcer Followed by wound care but pt reports 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
[2025-04-24 14:00] LABS: Glucose, Whole Blood 101 mg/dL (60-115)
[2025-04-24 16:14] LABS: Glucose, Whole Blood 99 mg/dL (60-115)
[2025-04-24 20:52] LABS: Glucose, Whole Blood 123 mg/dL (60-115)
[2025-04-25] VITALS: BP 143/64; PULSE 78; RESP 20; TEMP 36.6; O2SAT 95
[2025-04-25 03:34] VITALS: BP 142/65; PULSE 86; RESP 18; TEMP 37; O2SAT 97
[2025-04-25 07:38] LABS: Glucose, Whole Blood 113 mg/dL (60-115)
[2025-04-25 07:55] VITALS: BP 149/70; PULSE 92; RESP 16; TEMP 37.3; O2SAT 95
[2025-04-25] MEDS: Tiotropium Bromide 2.5 mcg 1 PUFF/2.5 MCG MIST.INHAL 2 PUFF INHALE (08:02)
[2025-04-25 08:05] VITALS: PULSE 90; O2SAT 96
[2025-04-25 08:35] LABS: Hematocrit 29.8 % (42.0-52.0); Hemoglobin 9.9 g/dl (14.0-18.0); Mean Corpuscular HGB Conc 33.2 g/dl (31.0-36.0); Mean Corpuscular Hemoglobin 30.2 pg (27.0-33.0); Mean Corpuscular Volume 90.9 fL (80.0-98.0); NRBC Abs Auto 0.000 X10*3/uL (0.0-0.012); NRBC Pct Auto 0.0 /100WBC (0.0-0.2); Platelet Count 275 X10*3/uL (160-400); Red Blood Count 3.28 X10*6/uL (4.60-5.80); White Blood Count 8.6 X10*3/uL (4.8-10.8)
[2025-04-25 08:51] LABS: Anion Gap 17 (12-20); Blood Urea Nitrogen 65 mg/dL (9-16); Calcium 8.2 mg/dL (8.4-10.2); Carbon Dioxide 19 mmol/L (22-29); Chloride 110 mmol/L (96-108); Creatinine Clr Calc Pharmacy 9.3; Estimated Glomerular Filt Rate 7; Potassium 5.5 mmol/L (3.3-5.1); Sodium 140 mmol/L (135-145)
[2025-04-25] MEDS: Metoprolol Succinate ER 100 MG TAB.ER.24H PO (08:55)
[2025-04-25] MEDS: 0.9 % Sodium Chloride Flush 3 ML SYRINGE IVFLUSH (08:59)
[2025-04-25 09:40] VITALS: BP 139/63; PULSE 73; O2SAT 94
--- NOTE | 2025-04-25 09:45 | P.PNNP_ITS ---
Subjective Subjective Date of Service: 04/25/25 Interval history: Following for UMAIR, progression of renal disease. patient reports he feels well today. Denies new concerns/complaints. Reports he is still making urine. Physical Exam 2 Vital Signs: Vital Signs: Last Vital Signs Temp 99.2 F 04/25/25 07:55 Pulse 90 04/25/25 08:05 Resp 16 04/25/25 07:55 BP 149/70 H 04/25/25 07:55 Pulse Ox 95 04/25/25 07:55 O2 Del Method Room Air 04/25/25 07:55 O2 Flow Rate 2 04/24/25 12:05 BMI result Body Mass Index 22.5 Const: General: no acute distress, alert and awake Resp: Effort & Inspection: normal respiratory effort and able to speak in complete sentences Auscultation: clear to auscultation bilaterally Cardio: Rate: regular rate Rhythm: regular rhythm Heart sounds: S1 normal heart sound present and S2 normal heart sound present GI: Palpation (GI): Soft to palpation and nontender : General: Yes no CVA tenderness Back/Spine/Pelvis: Back: no CVA tenderness Skin: Rashes: no rashes Neuro: Other: no asterixis, no tremor. Extrem: General: Yes edema (trace LLE edema (right BKA). ) Objective Data Labs 04/25/25 08:31 04/25/25 08:31 Labs: Laboratory Results - last 24 hr 04/21/25 04/24/25 04/24/25 10:12 13:55 16:07 WBC RBC Hgb Hct MCV MCH MCHC RDW Plt Count MPV Absolute Nucleated RBC Nucleated RBC % (auto) Sodium Potassium Chloride Carbon Dioxide Anion Gap BUN Creatinine Estim Creat Clear Calc Estimated GFR POC Glucose 101 99 Random Glucose Calcium Phosphorus Crossmatch See Detail 04/24/25 04/25/25 04/25/25 20:46 07:32 08:31 WBC 8.6 RBC 3.28 L Hgb 9.9 L Hct 29.8 L MCV 90.9 MCH 30.2 MCHC 33.2 RDW 15.8 Plt Count 275 MPV 9.6 Absolute Nucleated RBC 0.000 Nucleated RBC % (auto) 0.0 Sodium 140 Potassium 5.5 H Chloride 110 H Carbon Dioxide 19 L Anion Gap 17 BUN 65 H Creatinine 8.28 H* Estim Creat Clear Calc 9.3 Estimated GFR 7 POC Glucose 123 H 113 Random Glucose 114 Calcium 8.2 L Phosphorus 5.5 H Crossmatch Procedures Date of Service Date of Service: 04/25/25 Assessment & Plan Assessment and plan (1) Acute kidney injury superimposed on CKD: Status: Acute (2) Hypertension: Status: Acute Plan Advanced kidney disease from diabetes, hypertension and vascular disease, progressive CKD with recent UMAIR due to ATN with component of CKD progression. 24 hour urine creatinine clearance 3.9- this is inconsistent with lack of uremic symptoms, stable electrolytes- potassium mildly elevated today, can give lokelma for management. Patient also continues to make over a liter of urine daily. No indication for renal replacement at this time. Patient had renal biopsy yesterday, results pending. blood pressures acceptable. Continue amlodipine 10mg daily, hydralazine to 100mg PO TID, metoprolol 100mg daily, imdur 90mg daily. Pt at risk for cardiac morbidity due to advanced CKD- per cardiology, had NSTEMI from demand ischemia in setting of severe anemia and renal isufficiency, though clinically he has no ischemic symtoms- per cardiology not suitable for ischemic workup in current setting and will follow up with cardiology as outpatient. Patient has had a stable/improving H&H, stool occult negative. metabolic acidosis- continue sodium bicarb 650mg PO TID No indication for renal replacement at this time. Patient may be discharged from a renal standpoint. He should be discharged on furosemide 20mg PO daily, and lokelma 10mg twice weekly for next month- we will arrange for outpatient follow up next week. Discussed with Dr Ruiz. Time Spent With Patient Time: Total time managing care of this patient today ____ minutes. Progress Note: Quality Stroke Does the patient have a stroke diagnosis?: No
[2025-04-25 11:27] VITALS: BP 139/63; PULSE 73; RESP 17; TEMP 36.8; O2SAT 94
[2025-04-25 12:01] LABS: Glucose, Whole Blood 117 mg/dL (60-115)
--- NOTE | 2025-04-25 12:17 | PM.DS ---
DS: Providers Provider Date of Service: 04/25/25 Date of admission: 04/19/25 22:04 Date of discharge: 04/25/25 Primary care physician: Michelle Long MD Consults: 04/19/25 22:16 Consult to Nephrology Routine Consulting Provider: [facility] Reason for consultation: cr 8.25, UMAIR on CKD4 Has provider been notified: No 04/19/25 22:58 Consult to Wound Care Routine Reason for consultation: L foot wound 04/21/25 09:20 Consult to Cardiology Routine Consulting Provider: [facility] Reason for consultation: elevated trops, surgical clearance DS: Diagnosis Discharge Diagnosis (1) Acute kidney injury superimposed on CKD: Status: Acute (2) Hypertension: Status: Acute DS: Summary Hospital Course Hospital Course: History and physical as per admitting provider. Patient is a 65-year-old male with a past medical history significant for mild COPD, CKD [address] Ruiz, anemia of chronic disease receiving EPO, HTN, T2 dm (PRN insulin), s/p right BKA, cardiomyopathy, paroxysmal AFib (currently holding Xarelto), HFrEF, osteomyelitis/septic arthritis, hyperparathyroid, and WENDY, who presented to the ED per recommendation of Dr. Ruiz due to shortness of breath for the past month, diarrhea for the past 2 weeks and anemia. He received Procrit today with Dr. Ruiz. Hemoglobin 04/17 was 6.6, now 8.1 today. The patient denies any visible bleeding sources. He has been having diarrhea at least 3 times a day without any blood or significant odor. Garcia he also describes shortness of breath for the past month, worse with exertion. It was discussed with Dr. Ruiz that the patient may need a renal biopsy while inpatient. 65-year-old man admitted for renal biopsy secondary to UMAIR on CKD stage 4. Worsening in creatinine noted, creatinine 8.28. Had renal biopsy on 04/24/2025. Follows closely with Nephrology. Patient has not quite yet started on dialysis in the plan is to find out results of biopsy to then determine what will be the next steps. Patient will follow up with Nephrology in 1 week in the outpatient office Acute on chronic anemia. Hemoglobin and hematocrit noted to be 6.6 and 20.0. Patient received a total of 3 units of packed red blood cells and 1 dose of Procrit as per Nephrology. Stool occult was negative and there was no obvious bleeding noted. H&H remained stable at 9.9 and 29.8 at this time. Elevated troponin, NSTEMI. Troponin peaked at 6182. Patient was asymptomatic, EKG without ischemic changes. Likely secondary to demand and possible underlying coronary artery disease. Seen and evaluated by Cardiology who recommended no treatment or intervention at this time given anemia and other comorbidities. Echocardiogram showed EF of 35-40% with moderate global hypokinesis. Patient monitored on telemetry Patient also treated for acute on chronic heart failure with reduced ejection fraction with exacerbation. Did report shortness of breath x1 month. BNP peaked at 3105. Echocardiogram showed EF of 40-45% in February. Chest x-ray with moderate interstitial edema. Status post IV Lasix. We will be discharged home with Lasix 20 mg daily as per Nephrology Hyperchloremic metabolic acidosis. Secondary to UMAIR. Treated with sodium bicarb 650 mg t.i.d. Diarrhea. Ongoing for 2 weeks prior to admission. Improved. Stool studies negative Mild COPD. No exacerbation. Continue home medications Hypertension. Stable blood pressure. Continue home medications Diabetes mellitus type 2. Treated with sliding scale and diabetic diet while inpatient. Continue home medications Paroxysmal atrial fibrillation. Continue Xarelto Chronic left foot diabetic ulcer. Follow up by wound care while inpatient. Follow wound care orders Left Foot - Elevate foot off of bed with pillows - Float heel. Cleanse with NS moist gauze, pat dry. Apply skin prep, lightly pack wound bed with Durafiber AG, cover with dry gauze and Abd pad followed by gauze. Change every other day. Time Attestation Discharge Coordination Time (in mins): 46 Quality: Safe Use of Opioids Does Pt have an Active Cancer Diagnosis on the Problem List?: No Quality: Stroke Does the patient have a stroke diagnosis?: No Physical Exam Exam: Exam: Appearing in no acute distress head is normocephalic atraumatic eyes pupils are PERRLA sclera is anicteric mouth throat mucous membranes are intact and moist neck is supple no lymphadenopathy, no JVD noted lung sounds are clear to auscultation heart regular rate rhythm, clear S1, S2 positive bowel sounds, abdomen is soft, nontender neuro patient is alert x3, no focal deficits Vital Signs: Vital Signs: Last Vital Signs Temp 98.2 F 04/25/25 11:27 Pulse 73 04/25/25 11:27 Resp 17 04/25/25 11:27 BP 139/63 04/25/25 11:27 Pulse Ox 94 04/25/25 11:27 O2 Del Method Room Air 04/25/25 11:27 O2 Flow Rate 2 04/24/25 12:05 BMI result Body Mass Index 22.5 DS: Data Data Completed and Pending Completed studies during hospitalization [Text1]: Procedures Fluoroscopy of Superior Vena Cava, Guidance (02/20/25) Insertion of Infusion Device into Superior Vena Cava, Percutaneous Approach (02/20/25) Insertion of Tunneled Vascular Access Device into Chest Subcutaneous Tissue and Fascia, Percutaneous Approach (02/20/25) Pending studies at discharge: Pending at discharge 04/24/25 12:00 Surgical Path [Surgical] [PTH] Routine Labs on day of discharge: Laboratory Results - last 24 hr 04/21/25 04/24/25 04/24/25 10:12 13:55 16:07 WBC RBC Hgb Hct MCV MCH MCHC RDW Plt Count MPV Absolute Nucleated RBC Nucleated RBC % (auto) Sodium Potassium Chloride Carbon Dioxide Anion Gap BUN Creatinine Estim Creat Clear Calc Estimated GFR POC Glucose 101 99 Random Glucose Calcium Phosphorus Crossmatch See Detail 04/24/25 04/25/25 04/25/25 20:46 07:32 08:31 WBC 8.6 RBC 3.28 L Hgb 9.9 L Hct 29.8 L MCV 90.9 MCH 30.2 MCHC 33.2 RDW 15.8 Plt Count 275 MPV 9.6 Absolute Nucleated RBC 0.000 Nucleated RBC % (auto) 0.0 Sodium 140 Potassium 5.5 H Chloride 110 H Carbon Dioxide 19 L Anion Gap 17 BUN 65 H Creatinine 8.28 H* Estim Creat Clear Calc 9.3 Estimated GFR 7 POC Glucose 123 H 113 Random Glucose 114 Calcium 8.2 L Phosphorus 5.5 H Crossmatch 04/25/25 11:52 WBC RBC Hgb Hct MCV MCH MCHC RDW Plt Count MPV Absolute Nucleated RBC Nucleated RBC % (auto) Sodium Potassium Chloride Carbon Dioxide Anion Gap BUN Creatinine Estim Creat Clear Calc Estimated GFR POC Glucose 117 H Random Glucose Calcium Phosphorus Crossmatch Discharge Plan Discharge Anticipated Discharge Date/Time: 04/25/25 12:01 Patient Disposition: Home Health Service Discharge Diagnosis: UMAIR on CKD stage 4 Acute on chronic anemia Acute on chronic heart failure with reduced ejection fraction Elevated troponin, NSTEMI Hyperkalemic metabolic acidosis Diarrhea Referrals: Michelle Long MD [Primary Care Provider, Medical] - 1 Week Donell Ruiz MD [Physician, Nephrology] - 1 Week Discharge Medications: New furosemide [Lasix] 20 mg tablet 20 mg PO DAILY Qty: 30 0RF Lokelma 10 gram powder in packet 10 g PO .twice weekly Qty: 30 0RF Rx Instructions: Take twice weekly Thursday and Thursday Continued acetaminophen 325 mg Tablet 975 mg PO Q6H PRN (Reason: Pain, Mild 1-3,Fever,Headache) Qty: 20 0RF oxycodone 5 mg Tablet 5 mg PO Q6H PRN (Reason: Pain, Severe (Pain Scale 7-10)) Qty: 15 0RF Rx Instructions: Partial Fill upon patient request. (DME) FreeStyle Lite Strips Strip Qty: 100 0RF Rx Instructions: Test four times a day or as directed. (DME) blood-glucose meter [FreeStyle Lite Meter] Kit Qty: 1 0RF Rx Instructions: As Directed alcohol swabs Pads, Medicated 1 pad TOPICAL QIDACHS Qty: 100 0RF Rx Instructions: Use four times a day or as directed. insulin lispro [Humalog KwikPen Insulin] 100 unit/mL insulin pen 0 sliding scale dose SUBCUT QIDACHS Qty: 15 0RF Rx Instructions: Blood Sugar: <150 - 0 units 151-200 - 2 units 201-250 - 4 units 251-300 - 6 units 301-350 - 8 units >350 - 10 units (DME) pen needle, diabetic 32 gauge x 1/4 needle Qty: 100 0RF Rx Instructions: Use four times a day or as directed. (DME) lancets [FreeStyle Lancets] 28 gauge misc Qty: 100 0RF Rx Instructions: Test four times a day or as directed. atorvastatin 10 mg tablet 10 mg PO DAILY Lokelma 10 gram powder in packet 10 g PO DAILY dapagliflozin propanediol [Farxiga] 10 mg tablet 10 mg PO DAILY finasteride 5 mg tablet 5 mg PO DAILY amlodipine 10 mg tablet 10 mg PO DAILY tamsulosin 0.4 mg capsule 0.4 mg PO DAILY metoprolol succinate 100 mg tablet extended release 24 hr 100 mg PO DAILY aspirin 81 mg tablet,chewable 1 tab PO DAILY Incruse Ellipta 62.5 mcg/actuation blister with device 1 inh inhalation DAILY Xarelto 2.5 mg tablet 2.5 mg PO BID hydralazine 25 mg tablet 50 mg PO TID sodium bicarbonate 650 mg tablet 650 mg PO TID Discharge Orders: Discharge Order (Routine); Ordered 04/25/25 Ordered By: Rita Will Diet: Advance to usual diet Activity on Discharge: As tolerated Stand Alone Forms: Patient Portal Discharge page Print Language: Slovenian Activity Restrictions/Additional Instructions: Left Foot - Elevate foot off of bed with pillows - Float heel. Cleanse with NS moist gauze, pat dry. Apply skin prep, lightly pack wound bed with Durafiber AG, cover with dry gauze and Abd pad followed by gauze. Change every other day. Care Plan Goals: You has been started on new medications including Lasix 20 mg daily and Lokelma Health Concerns: UMAIR on CKD stage 4 Acute on chronic anemia Acute on chronic heart failure with reduced ejection fraction Elevated troponin, NSTEMI Hyperkalemic metabolic acidosis Diarrhea Plan of Treatment: Follow up with primary care provider as needed Take all medications as prescribed Assessment: See discharge summary Patient Instructions: Blood Transfusion Discharge Instructions
--- NOTE | 2025-04-25 12:25 | MHC.CM.PN ---
Second IMM given 04/25. Pt is medically cleared for discharge home with resumption of previous [employer] services, [facility] services, and adult day program services M-F. Pts will transport the pt home today.
--- NOTE | 2025-04-25 12:26 | P.F2F_ITS ---
Service Date Service Date: 04/25/25 Encounter Date of encounter: 04/25/25 Reasons for Services Signs and symptoms assessed: UMAIR on CKD Foot ulcer CHF Left Foot - Elevate foot off of bed with pillows - Float heel. Cleanse with NS moist gauze, pat dry. Apply skin prep, lightly pack wound bed with Durafiber AG, cover with dry gauze and Abd pad followed by gauze. Change every other day. Reason for prison: wound care Reason for physical therapy: home safety and mobility Homebound: Leaving the home is medically contraindicated at this time without the asist of a device and/or another person due th the listed conditions above and below. Reason homebound: unsteady gait / fall risk Certification: Based on the above findings, I certify that this patient is confined to the home and needs intermittent prison care, physical therapy and/or speech therapy, or continues to need occupational therapy. The patient is under my care, and I have initiated the establishment of the plan of care. The patient will be followed by a physician who will periodically review the plan of care. Time Spent With Patient Time: Total time managing care of this patient today ____ minutes.
--- NOTE | 2025-05-10 11:13 | PC.NURSE ---
late nurse note for PRN oxycodone that was given by this RN on 04/23/2025 at 1701 for pain score of 9/10. this RN scanned med for oxycodone 5mg for 4-6 pain rather than oxycodone 5mg for 7-10 pain. the PRN med that was given at 1701 was to be scanned for oxycodone 5mg 7-10 pain score
== END 2025-04-25 13:32 | disposition home health service (06) | DRG 682 ==
LOC: HO.ED 18:46 → HO.EDOVER 22:43 → HO.IMC 23:51
PROVIDERS: Nurse Practitioner Family; Physician Assistant; Physician Assistant Medical; Radiology Diagnostic Radiology; Student in an Organized Health Care Education/Training Program; Admitting Provider Student in an Organized Health Care Education/Training Program; Emergency Provider Internal Medicine; PCP Internal Medicine; Visit Provider Nurse Practitioner Acute Care
PROC: 0TB03ZX Excision of Right Kidney, Percutaneous Approach, Diagnostic (ICD-10-PCS; principal; 2025-04-24 11:00)
DX: N17.0 Acute kidney failure with tubular necrosis (principal); I21.A1 Myocardial infarction type 2; I50.23 Acute on chronic systolic (congestive) heart failure; I13.0 Hypertensive heart and chronic kidney disease with heart failure and stage 1 through stage 4 chronic kidney disease, or unspecified chronic kidney disease; A08.11 Acute gastroenteropathy due to Norwalk agent; J96.10 Chronic respiratory failure, unspecified whether with hypoxia or hypercapnia; N18.4 Chronic kidney disease, stage 4 (severe); I48.0 Paroxysmal atrial fibrillation; J44.9 Chronic obstructive pulmonary disease, unspecified; D63.1 Anemia in chronic kidney disease; E11.22 Type 2 diabetes mellitus with diabetic chronic kidney disease; E87.8 Other disorders of electrolyte and fluid balance, not elsewhere classified; Z99.81 Dependence on supplemental oxygen; E11.621 Type 2 diabetes mellitus with foot ulcer; L97.529 Non-pressure chronic ulcer of other part of left foot with unspecified severity; E87.5 Hyperkalemia; I25.10 Atherosclerotic heart disease of native coronary artery without angina pectoris; Z89.511 Acquired absence of right leg below knee; Z79.4 Long term (current) use of insulin; Z79.01 Long term (current) use of anticoagulants; Z79.82 Long term (current) use of aspirin; Z79.899 Other long term (current) drug therapy
CPT/HCPCS: 36415; 50200; 71045; 77012; 80048; 80053; 81001; 82272; 82575; 82607; 82746; 82947; 83540; 83615; 83690; 83735; 83880; 83970; 84100; 84484; 85025; 85027; 85045; 86850; 86880; 86900; 86901; 86923; 87493; 87507; 88300; 88305; 88313; 88346; 88348; 88350; 93005; 93306; 97162; 99152; 99285; J1171; J1938; J2250; J2597; J3010; P9016; Q9957

== ENCOUNTER → 2025-04-19 21:13 | Outpatient (BNV) | payer OTHER, SELFPAY | PROVIDERS: Admitting Provider Student in an Organized Health Care Education/Training Program; Emergency Provider Internal Medicine; PCP Internal Medicine; Visit Provider Radiology Vascular & Interventional Radiology | DX: I50.9 Heart failure, unspecified (principal) | CPT/HCPCS: 71045 ==

== ENCOUNTER → 2025-04-19 21:13 | Outpatient (BNV) | payer OTHER, SELFPAY | PROVIDERS: Admitting Provider Student in an Organized Health Care Education/Training Program; Emergency Provider Internal Medicine; PCP Internal Medicine; Visit Provider Internal Medicine | DX: I51.7 Cardiomegaly (principal) | CPT/HCPCS: 93010 ==

== ENCOUNTER 2025-04-19 22:04 | Outpatient (BNV) | payer OTHER, SELFPAY | END 2025-04-21 09:21 | PROVIDERS: Admitting Provider Student in an Organized Health Care Education/Training Program; Emergency Provider Internal Medicine; PCP Internal Medicine; Visit Provider Internal Medicine | DX: I51.89 Other ill-defined heart diseases (principal); I35.8 Other nonrheumatic aortic valve disorders | CPT/HCPCS: 93306 ==

== ENCOUNTER 2025-04-19 22:04 | Outpatient (BNV) | payer OTHER, SELFPAY | END 2025-04-24 11:16 | PROVIDERS: Admitting Provider Student in an Organized Health Care Education/Training Program; Emergency Provider Internal Medicine; PCP Internal Medicine; Visit Provider Radiology Diagnostic Radiology | DX: N17.9 Acute kidney failure, unspecified (principal) | CPT/HCPCS: 50200; 77012 ==

== ENCOUNTER → 2025-04-19 22:04 | Outpatient (BNV) | payer OTHER, SELFPAY | PROVIDERS: Admitting Provider Student in an Organized Health Care Education/Training Program; Emergency Provider Internal Medicine; PCP Internal Medicine; Visit Provider Internal Medicine | DX: I21.4 Non-ST elevation (NSTEMI) myocardial infarction (principal); N17.9 Acute kidney failure, unspecified; N18.4 Chronic kidney disease, stage 4 (severe); D63.1 Anemia in chronic kidney disease | CPT/HCPCS: 99223 ==

== ENCOUNTER → 2025-04-19 22:04 | Outpatient (BNV) | payer OTHER, SELFPAY | PROVIDERS: Admitting Provider Student in an Organized Health Care Education/Training Program; Emergency Provider Internal Medicine; PCP Internal Medicine; Visit Provider Nurse Practitioner Family | DX: N17.9 Acute kidney failure, unspecified (principal); N18.9 Chronic kidney disease, unspecified; I15.0 Renovascular hypertension | CPT/HCPCS: 99222; 99232 ==

== ENCOUNTER → 2025-04-19 22:04 | Outpatient (BNV) | payer OTHER, SELFPAY | PROVIDERS: Admitting Provider Student in an Organized Health Care Education/Training Program; Emergency Provider Internal Medicine; PCP Internal Medicine; Visit Provider Physician Assistant | DX: N17.9 Acute kidney failure, unspecified (principal); I12.9 Hypertensive chronic kidney disease with stage 1 through stage 4 chronic kidney disease, or unspecified chronic kidney disease; N18.4 Chronic kidney disease, stage 4 (severe) | CPT/HCPCS: 99223; 99232; 99233; 99239; G0180 ==

== ENCOUNTER 2025-04-29 10:26 | Emergency (ER) | payer OTHER, SELFPAY ==
--- NOTE | 2025-04-29 10:29 | ED.MALEGU ---
HPI - Male Genitourinary General Chief complaint: General Medical Stated complaint: BLOOD IN URINE PER EMS Time Seen by Provider: 04/29/25 10:27 Source: patient and EMS Mode of arrival: EMS Limitations: no limitations History of Present Illness ED Provider: Tarsha Borja NP HPI Narrative: Patient is a 65-year-old male with past medical history of hypertension, type 2 diabetes with peripheral neuropathy, CKD, BPH, anemia of chronic disease, cardiomyopathy, paroxysmal atrial fibrillation on Xarelto, heart failure with preserved ejection fraction, pancytopenia, PVD, WENDY, osteomyelitis/septic arthritis, right BKA, left metatarsal amputation, hepatitis-C, CVA, hyperparathyroid who presents emergency department for evaluation. He reports that for the past 3 days he has been experiencing hematuria described as dark red blood in the urine every time he goes to the bathroom denies the presence of clots. Reports having some dysuria. Has not sought prior evaluation for this. Denies fevers, chills, nausea, vomiting, chest pain, shortness of breath, abdominal pain, back pain, constipation diarrhea, hematochezia, melena. Related Data Home Medications ?Medication ?Instructions ?Recorded ?Confirmed amlodipine 10 mg tablet 10 mg PO DAILY 12/19/24 04/20/25 aspirin 81 mg chewable tablet 1 tab PO DAILY 12/19/24 04/20/25 dapagliflozin propanediol 10 mg 10 mg PO DAILY 12/19/24 04/20/25 tablet (Farxiga) finasteride 5 mg tablet 5 mg PO DAILY 12/19/24 04/20/25 metoprolol succinate 100 mg 100 mg PO DAILY 12/19/24 04/20/25 tablet,extended release 24 hr sodium zirconium cyclosilicate 10 10 g PO DAILY 12/19/24 04/20/25 gram oral powder packet (Lokelma) tamsulosin 0.4 mg capsule 0.4 mg PO DAILY 12/19/24 04/20/25 umeclidinium 62.5 mcg/actuation 1 inh inhalation DAILY 12/19/24 04/20/25 blister powder for inhalation (Incruse Ellipta) hydralazine 25 mg tablet 50 mg PO TID 12/30/24 04/20/25 rivaroxaban 2.5 mg tablet (Xarelto) 2.5 mg PO BID 12/30/24 04/20/25 sodium bicarbonate 650 mg tablet 650 mg PO TID 12/30/24 04/20/25 atorvastatin 10 mg tablet 10 mg PO DAILY 04/20/25 04/20/25 Previous Rx's ?Medication ?Instructions ?Recorded acetaminophen 325 mg tablet 975 mg (3 x 325 mg) PO Q6H PRN 03/02/25 Pain, Mild 1-3,Fever,Headache #20 tabs alcohol swabs 1 pad topical QIDACHS #100 ea 03/02/25 blood sugar diagnostic (FreeStyle #100 ea 03/02/25 Lite Strips) blood-glucose meter (FreeStyle #1 ea 03/02/25 Lite Meter kit) insulin lispro 100 unit/mL 0 sliding scale dose subcut 03/02/25 subcutaneous pen (Humalog KwikPen QIDACHS #15 mL (U-100) Insulin) lancets 28 gauge (FreeStyle #100 ea 03/02/25 Lancets) oxycodone 5 mg tablet 5 mg PO Q6H PRN Pain, Severe (Pain 03/02/25 Scale 7-10) #15 tabs pen needle, diabetic 32 gauge x #100 ea 03/02/25 1/ furosemide 20 mg tablet (Lasix) 20 mg PO DAILY #30 tabs 04/25/25 sodium zirconium cyclosilicate 10 10 g PO .twice weekly #30 ea 04/25/25 gram oral powder packet (Lokelma) Allergies Allergy/AdvReac Type Severity Reaction Status Date / Time morphine Allergy Hallucinati Verified 04/29/25 10:35 ons bupropion AdvReac Hallucinati Verified 04/29/25 10:35 ons Review of Systems Review of Systems: Yes all other systems are reviewed and are negative [facility] Past Medical History Attestation statement: The following information was validated with the patient. Source: old records reviewed Medical History Anemia in chronic kidney disease (CKD) CKD (chronic kidney disease) stage 4, GFR 15-29 ml/min Hypertension Fluid overload Acute and chronic respiratory failure Sepsis Acute dehydration New onset of congestive heart failure Pneumonia Urinary urgency Urinary tract infection Urinary hesitancy Tubular adenoma of colon Smoker Seborrheic keratoses SND (sensorineural deafness) Right BKA infection Peripheral vascular disease WENDY (obstructive sleep apnea) Microalbuminuria Lung nodule seen on imaging study Lightheadedness Latent tuberculosis LVH (left ventricular hypertrophy) Abnormal PFTs Hyponatremia Hypertensive retinopathy of both eyes Hyperkalemia Hepatitis C Hearing loss of both ears Erectile dysfunction Cataract CKD (chronic kidney disease) Bladder wall thickening BPH (benign prostatic hyperplasia) Anticoagulated Anemia Peripheral neuropathy Diabetes mellitus, type II CVA (cerebral vascular accident) Adrenal nodule Kidney cysts Surgical History Hx of right BKA Family History Family History Brother Diabetes Mother Diabetes Father Diabetes Social History Social History Household Members: Spouse Housing: Apartment Do you presently have visiting nurse or other home services: Yes Alcohol intake: never Patient Tobacco Use Status: Former Tobacco user Tobacco use type: Cigarette Smoked in Last 30 Days: No e-Cigarette/Vaping Use: Former Use Use of substances other than those prescribed or required for medical reasons: No Advance Directives: No Advance Directives Information Provided: No service: No Physical Exam Exam: Exam: Appearance: Alert.?Oriented to person, place and time. No acute distress.?Normal affect. Eyes: Pupils equal, round and reactive to light.? ENT: Pharynx normal.?? Neck: Normal inspection.? Neck supple.?? CVS: Heart sounds normal. Normal heart rate and rhythm.? Pulses normal.?? Respiratory: No respiratory distress.? Lung sounds clear to auscultation bilaterally?? Abdomen: Soft and non-tender. Normoactive bowel sounds. No CVAT. Skin: Skin warm and dry.? Normal skin color.? Extremities: No lower extremity edema.? Neuro: Moves all extremities spontaneously. Sensation intact bilaterally. Ambulates with normal steady gait. Vital Signs: Vital Signs: Last Vital Signs Temp 98.1 F 04/29/25 18:18 Pulse 82 04/29/25 18:18 Resp 19 04/29/25 18:18 BP 181/71 H 04/29/25 18:18 Pulse Ox 95 04/29/25 18:18 O2 Del Method Room Air 04/29/25 18:18 BMI result Body Mass Index 18.5 Course Reevaluation(s) Reevaluation #1: Received call from lab regarding critical creatinine of 7.82 compared to most recent obtained 04/25/2025 of 8.28 on the day of hospital discharge. He is still making urine at this point. He has not yet started dialysis the plan is to find out results of biopsy and outpatient follow-up with his statistical secretary, Dr. Ruiz. Per inpatient consultation there would be arrangement for outpatient follow-up this coming week, he states he is unsure of when this appointment will be scheduled. Was discharged on furosemide 20 mg daily, Lokelma 10 mg twice daily for the next month, and he states he has been compliant. Not consistent with UMAIR. Chronic metabolic acidosis for which he is prescribed oral sodium bicarb 650 mg PO TID No significant electrolyte derangement, potassium of 4.5. LFTs unremarkable. CBC without leukocytosis, has a mild normocytic anemia not meeting transfusion criteria, current H&H 11.6 there was 6.3, increased from 5 04/25 of 9.9 and 29.8, has no thrombocytopenia. Urine is pink tinged at the time of this evaluation, no gross hematuria. Renal biopsy CT obtained 04/24/2025 revealing punctate calcification and small stones in both kidneys no hydronephrosis. With benign abdominal examination and no CVA tenderness, I have lower suspicion for obstructive calculi, hydro. Pending results of urinalysis. Time: 12:43 Reevaluation #2: Urinalysis with hematuria no evidence of bacteriuria findings to be consistent with urinary tract infection. Patient voided approximately 250 mL into a urinal, per nursing staff he had previous bladder span of 457 mL. We will attempt a postvoid PVR to ascertain that there is no acute retention Time: 13:21 Medications Administered Discontinued Medications Generic Name Dose Route Start Last Admin Trade Name Freq PRN Reason Stop Dose Admin Sodium Bicarbonate 650 mg 04/29/25 12:53 04/29/25 13:02 Sodium Bicarbonate 650 Mg Tablet PO 04/29/25 12:54 650 mg ONCE ONE Administration Medical Decision Making Medical Decision Making [facility] Narrative: Patient is a 65-year-old male with past medical history of hypertension, type 2 diabetes with peripheral neuropathy, CKD, BPH, anemia of chronic disease, cardiomyopathy, paroxysmal atrial fibrillation on Xarelto, heart failure with preserved ejection fraction, pancytopenia, PVD, WENDY, osteomyelitis/septic arthritis, right BKA, left metatarsal amputation, hepatitis-C, CVA, hyperparathyroid who presents for evaluation of hematuria over the past 3 days as per HPI. Examination is benign at this time. He had a recent hospital admission 04/19/2025-04/25/2025 for renal biopsy secondary to UMAIR on CKD stage 4 30s not on dialysis, due to acute on chronic anemia chronic disease to my received 3 units of PRBCs and 1 dose of Procrit per Nephrology occult stool negative, additionally had elevated troponin NSTEMI, asymptomatic without ischemic ECG changes, echo revealing EF of 35-40% moderate global hypokinesis, acute on chronic heart failure with exacerbation. Will obtain serum labs, urinalysis for further evaluation. Abdominal examination is benign, no CVA tenderness, lower suspicion for acute intra-abdominal pathology Differential Diagnosis Differential Diagnoses: The differential diagnosis associated with the presentation includes (Hematuria secondary to Xarelto, nephrolithiasis, ureteral calculi, urinary tract infection, pyelonephritis, hydronephrosis) Admission/Observation Consideration of admission/observation: Escalation of care including admission/observation considered Lab Data MDM Lab Attestation statement: I reviewed the patient's lab results. 04/29/25 10:50 04/29/25 11:46 Labs: Lab Results 04/29/25 04/29/25 04/29/25 Range/Units 10:36 10:50 11:46 WBC 7.8 (4.8-10.8) X10*3/uL RBC 3.95 L D (4.60-5.80) X10*6/uL Hgb 11.6 L (14.0-18.0) g/dl Hct 36.3 L D (42.0-52.0) % MCV 91.9 (80.0-98.0) fL MCH 29.4 (27.0-33.0) pg MCHC 32.0 (31.0-36.0) g/dl RDW 16.4 H (11.0-16.0) % Plt Count 285 (160-400) X10*3/uL MPV 9.3 L (9.4-12.4) fL Immature Gran % (Auto) 0.4 (0.0-0.4) % Neut % (Auto) 76.1 H (45-73) % Lymph % (Auto) 13.6 L (20-40) % [place] % (Auto) 5.3 (2-11) % Eos % (Auto) 3.6 (0-4) % Baso % (Auto) 1.0 (0-2) % Lymph # (Auto) 1.1 L (1.2-4.9) X10*3/uL [place] # (Auto) 0.4 (0.1-1.2) X10*3/uL Eos # (Auto) 0.3 (0.0-0.4) X10*3/uL Baso # (Auto) 0.1 (0.0-0.2) X10*3/uL Abs Immat Gran (auto) 0.03 (0.00-0.03) X10*3/uL Absolute Neuts (auto) 5.9 (2.0-8.3) x10*3/uL Absolute Nucleated RBC 0.000 (0.0-0.012) X10*3/uL Nucleated RBC % (auto) 0.0 (0.0-0.2) /100WBC Sodium 140 (135-145) mmol/L Potassium 4.5 (3.3-5.1) mmol/L Chloride 114 H (96-108) mmol/L Carbon Dioxide 16 L (22-29) mmol/L Anion Gap 15 (12-20) BUN 61 H (9-16) mg/dL Creatinine 7.82 H* (0.5-1.4) mg/dL Estim Creat Clear Calc 8.1 Estimated GFR 7 POC Glucose 97 (60-115) mg/dL Random Glucose 95 (60-115) mg/dL Calcium 8.3 L (8.4-10.2) mg/dL Total Bilirubin 0.3 (0.0-1.0) mg/dL AST 16 (5-37) U/L ALT 8 (0-40) U/L Alkaline Phosphatase 81 (39-117) U/L Total Protein 7.1 (6.5-8.0) g/dL Albumin 3.0 L (3.5-5.0) g/dL Urine Color Urine Appearance Urine pH (5.0-9.0) Ur Specific [place] (1.005-1.025) Urine Protein (Neg-Trace) mg/dL Urine Glucose (UA) (Negative) mg/dL Urine Ketones (Negative) mg/dL Urine Blood (Negative) Urine Nitrite (Negative) Ur Leukocyte Esterase (Negative) Urine RBC (0-2) /HPF Urine WBC (0-5) /HPF Ur Squamous Epith Cells (0-2) /HPF Urine Bacteria (None Seen) Hyaline Casts (0-2) /LPF // Range/Units 13:01 WBC (4.8-10.8) X10*3/uL RBC (4.60-5.80) X10*6/uL Hgb (14.0-18.0) g/dl Hct (42.0-52.0) % MCV (80.0-98.0) fL MCH (27.0-33.0) pg MCHC (31.0-36.0) g/dl RDW (11.0-16.0) % Plt Count (160-400) X10*3/uL MPV (9.4-12.4) fL Immature Gran % (Auto) (0.0-0.4) % Neut % (Auto) (45-73) % Lymph % (Auto) (20-40) % [place] % (Auto) (2-11) % Eos % (Auto) (0-4) % Baso % (Auto) (0-2) % Lymph # (Auto) (1.2-4.9) X10*3/uL [place] # (Auto) (0.1-1.2) X10*3/uL Eos # (Auto) (0.0-0.4) X10*3/uL Baso # (Auto) (0.0-0.2) X10*3/uL Abs Immat Gran (auto) (0.00-0.03) X10*3/uL Absolute Neuts (auto) (2.0-8.3) x10*3/uL Absolute Nucleated RBC (0.0-0.012) X10*3/uL Nucleated RBC % (auto) (0.0-0.2) /100WBC Sodium (135-145) mmol/L Potassium (3.3-5.1) mmol/L Chloride (96-108) mmol/L Carbon Dioxide (22-29) mmol/L Anion Gap (12-20) BUN (9-16) mg/dL Creatinine (0.5-1.4) mg/dL Estim Creat Clear Calc Estimated GFR POC Glucose (60-115) mg/dL Random Glucose (60-115) mg/dL Calcium (8.4-10.2) mg/dL Total Bilirubin (0.0-1.0) mg/dL AST (5-37) U/L ALT (0-40) U/L Alkaline Phosphatase (39-117) U/L Total Protein (6.5-8.0) g/dL Albumin (3.5-5.0) g/dL Urine Color Yellow Urine Appearance Clear Urine pH 7.0 (5.0-9.0) Ur Specific [place] 1.015 (1.005-1.025) Urine Protein >=1000 (4+) H (Neg-Trace) mg/dL Urine Glucose (UA) 500 H (Negative) mg/dL Urine Ketones Negative (Negative) mg/dL Urine Blood Large (3+) H (Negative) Urine Nitrite Negative (Negative) Ur Leukocyte Esterase Negative (Negative) Urine RBC >20 H (0-2) /HPF Urine WBC 0-5 (0-5) /HPF Ur Squamous Epith Cells 0-2 (0-2) /HPF Urine Bacteria None Seen (None Seen) Hyaline Casts 0-2 (0-2) /LPF Independent Interpretation I performed an independent interpretation of an: EKG (ECG revealing normal sinus rhythm with incomplete left bundle-branch block, ventricular rate of 77, normal JOSE, QTC 461. In comparison to ECG 04/19/2025 there are new T-wave inversions in V4-V6 replacing previously seen ST-depression) Interpretation: ECG revealing normal sinus rhythm with incomplete left bundle-branch block, ventricular rate of 77, normal JOSE, QTC 461. In comparison to ECG 04/19/2025 there are new T-wave inversions in V4-V6 replacing previously seen ST-depression, as well as new T-wave inversion in lead I. Independent Historian Clinical information obtained from an independent historian. History obtained from or confirmed by: EMS External Record Review External record reviewed: Inpatient record and Outpatient record Chronic Conditions Patient?s care impacted by: Other (See narrative above) Discharge Plan Discharge Clinical Impression: Hematuria, CKD (chronic kidney disease) Patient Disposition: Home, Self-Care Instructions: Hematuria (ED) Additional Instructions: Blood work today was reassuring, you still are mildly anemic but your blood counts have actually increased since your recent hospitalization which is reassuring in that you have not lost a significant amount of blood despite the blood noted in the urine. Your renal/kidney function is consistent with where it has been and has not worsened. Although your urine test does show evidence of blood there is no evidence of infection. It is suspected that this is due to your chronic kidney disease. Recommended that Thursday morning you contact your kidney doctor's office to arrange for outpatient follow-up appointment, as suggested at the time of your he discharge earlier this week. You may return back to emergency department any new or worsening symptoms or concerns. Prescriptions: No Action acetaminophen 325 mg Tablet 975 mg PO Q6H PRN (Reason: Pain, Mild 1-3,Fever,Headache) Qty: 20 0RF oxycodone 5 mg Tablet 5 mg PO Q6H PRN (Reason: Pain, Severe (Pain Scale 7-10)) Qty: 15 0RF Rx Instructions: Partial Fill upon patient request. (DME) FreeStyle Lite Strips Strip Qty: 100 0RF Rx Instructions: Test four times a day or as directed. (DME) blood-glucose meter [FreeStyle Lite Meter] Kit Qty: 1 0RF Rx Instructions: As Directed alcohol swabs Pads, Medicated 1 pad TOPICAL QIDACHS Qty: 100 0RF Rx Instructions: Use four times a day or as directed. insulin lispro [Humalog KwikPen Insulin] 100 unit/mL insulin pen 0 sliding scale dose SUBCUT QIDACHS Qty: 15 0RF Rx Instructions: Blood Sugar: <150 - 0 units 151-200 - 2 units 201-250 - 4 units 251-300 - 6 units 301-350 - 8 units >350 - 10 units (DME) pen needle, diabetic 32 gauge x 1/4 needle Qty: 100 0RF Rx Instructions: Use four times a day or as directed. (DME) lancets [FreeStyle Lancets] 28 gauge misc Qty: 100 0RF Rx Instructions: Test four times a day or as directed. atorvastatin 10 mg tablet 10 mg PO DAILY furosemide [Lasix] 20 mg tablet 20 mg PO DAILY Qty: 30 0RF Lokelma 10 gram powder in packet 10 g PO .twice weekly Qty: 30 0RF Rx Instructions: Take twice weekly Thursday and Thursday Lokelma 10 gram powder in packet 10 g PO DAILY dapagliflozin propanediol [Farxiga] 10 mg tablet 10 mg PO DAILY finasteride 5 mg tablet 5 mg PO DAILY amlodipine 10 mg tablet 10 mg PO DAILY tamsulosin 0.4 mg capsule 0.4 mg PO DAILY metoprolol succinate 100 mg tablet extended release 24 hr 100 mg PO DAILY aspirin 81 mg tablet,chewable 1 tab PO DAILY Incruse Ellipta 62.5 mcg/actuation blister with device 1 inh inhalation DAILY Xarelto 2.5 mg tablet 2.5 mg PO BID hydralazine 25 mg tablet 50 mg PO TID sodium bicarbonate 650 mg tablet 650 mg PO TID Referrals: Donell Ruiz MD [Physician, Nephrology] Interventions: ED Discharge Assessment Last Done: 04/29/25 18:18 Discharge Date/Time: 04/29/25 18:41 Print Language: Serbian
[2025-04-29 10:31] VITALS: BP 140/80; BP 176/69; PULSE 75; PULSE 83; RESP 16; TEMP 36.9; O2SAT 95; BMI 18.5
[2025-04-29 10:40] LABS: Glucose, Whole Blood 97 mg/dL (60-115)
--- NOTE | 2025-04-29 10:50 | ECG_ITS ---
Test Reason : ARRYTHMIA Blood Pressure : */* mmHG Vent. Rate : 77 BPM Atrial Rate : 77 BPM P-R Int : 178 ms QRS Dur : 112 ms QT Int : 408 ms P-R-T Axes : 47 44 162 degrees QTcB Int : 461 ms Normal sinus rhythm Possible Left atrial enlargement Incomplete left bundle branch block Minimal voltage criteria for LVH, may be normal variant ( Diana product ) ST & T wave abnormality, consider lateral ischemia Prolonged QT Abnormal ECG When compared with ECG of 19-Apr-2025 21:17, T wave inversion now evident in lateral leads Referred By: Tarsha Borja Electronically Signed By: Familia Howell
[2025-04-29 10:57] LABS: MANUAL DIFF FLAG NO
--- OUTSIDE RECORDS SUMMARY | 2025-04-29 10:57 | XMS_ITS | Data Portability ---
Author Organization [facility], Main Office Address [address] [facility], [address] [place] [address] Care Team Providers Care Staff Physical Therapist Name Role Phone CANDIS BECK - 2ND FLOOR OTHER KENIA BUITRAGO Primary Care Provider Assessment Encounter Date Assessment Date Assessment LastModified by Organization Details LastModified Time 09/29/2024 09/29/2024 Spent 30 reviewing records, seeing pt, consulting with staff and documenting Not available 09/29/2024 15:04:55 11/11/2024 11/11/2024 Greater than 30 minutes of assessment, education, applying rehabilitation aide, discharge planning and documentation today. Not available [...] Organization Details Recorded Time Peripheral vascular disease 686181047 Active 2023 Oksana Lennon NP [address], [place], [address], [facility] 4 17:52:49 Adult failure to thrive syndrome 912048418 Active 2023 Oksana Lennon NP [address], [address], [place], [address], [facility] 4 17:53:00 Type 2 diabetes mellitus 78298300 Active 2023 Oksana Lennon NP [address] , [address], [place], [address], [facility] 4 17:53:10 Hypertensive disorder 88715781 Active 2023 Oksana Lennon NP [address], [address], [place], [address], [facility] 4 17:53:15 Benign prostatic hyperplasia 763270475 Active 2023 Oksana Lennon NP [address], [address], [place], [address], [facility] 4 17:53:22 Hyperkalemia 83344712 Active 2023 Oksana Lennon NP [address] [facility], [address], [place], [address], [facility] 4 17:53:30 Chronic kidney disease stage 4 893859107 Active 2023 Oksana Lennon NP [address] [facility], [address], [place], [address], [facility] 4 17:54:21 Hyperlipidemia 03085689 Active 2023 Oksana Lennon NP [address] [facility], [address], [place], [address], [facility] 4 18:13:13 Smoker 66522017 Active 2023 Oksana Lennon NP [address] [facility], [address], [place], [address], [facility] 4 18:15:45 Problem Notes None recorded. Medical Equipment None Reported. Allergies Allergen ID Allergen Name Allergen Category Reaction Reaction Severity Criticality Documentation Date Start Date Code Code System Note Provider Name and Address Organization Details Recorded Time 50476 morphine medicatio n itching Not available low 08/22/2024 7052 RxNorm Janice Mitchell MD [address], [address], [place], [address], [facility] 4 20:23:08 86305 bupropion Not available confusion hallucina tions Not available Not available Not available 08/22/2024 32754 RxNorm tremo rs, aggre ssive , loss of appet ite Janice Mitchell MD [address] [facility], [address], [place], [address] , [facility] 4 20:23:00 Vitals Date Recorded Body height Body weight Body mass index (BMI) Heart rate Respiratory rate Body temperature Oxygen saturation Oxygen saturation in Arterial blood by Pulse oximetry Systolic And Diastolic Provider Name and Address Organization Details Last Updated DateTime 5 179.83 cm 37934.8 1 g 25.5 kg/m2 62 /min 16 /min 98.2 [degF] 96 % 96 % 146/74 mm[Hg] Oksana Lennon NP [address] [facility] [address], [place], [address], [facility] 5 10:26:07 Date Recorded Body height Body weight Body mass index (BMI) Heart rate Respiratory rate Body temperature Oxygen saturation Oxygen saturation in Arterial blood by Pulse oximetry Systolic And Diastolic Provider Name and Address Organization Details Last Updated DateTime 5 179.83 cm 95491.8 1 g 25.5 kg/m2 68 /min 18 /min 97.2 [degF] 96 % 96 % 158/65 mm[Hg] Oksana Lennon NP [address] [place] [address], [facility] [address], [place], [address], [facility] 5 16:59:12 Date Recorded Body height Body mass index (BMI) Body weight Heart rate Respiratory rate Body temperature Oxygen saturation Oxygen saturation in Arterial blood by Pulse oximetry Systolic And Diastolic Provider Name and Address Organization Details Last Updated DateTime 5 179.83 cm 24.1 kg/m2 28106.8 9 g 71 /min 19 /min 97.9 [degF] 97 % 97 % 162/81 mm[Hg] Oksana Lennon NP [address] [place] [address], [facility] [address], [place], [address], [facility] 5 08:22:41 Date Recorded Body height Heart rate Respiratory rate Body temperature Oxygen saturation Oxygen saturation in Arterial blood by Pulse oximetry Systolic And Diastolic Provider Name and Address Organization Details Last Updated DateTime 4 179.83 cm 70 /min 18 /min 98 [degF] 98 % 98 % 132/75 mm[Hg] ISABEL SAUNDERS NP [address] [facility], [address], [place], [address], [facility] 4 15:05:47 Date Recorded Body height Body mass index (BMI) Body weight Heart rate Respiratory rate Body temperature Oxygen saturation Oxygen saturation in Arterial blood by Pulse oximetry Systolic And Diastolic Provider Name and Address Organization Details Last Updated DateTime 4 179.83 cm 28.2 kg/m2 44509.0 7 g 77 /min 18 /min 98 [degF] 98 % 98 % 132/75 mm[Hg] Janice Mitchell MD [address] [facility], [facility] [address], [place], [address], [facility] 4 15:06:09 Social History Question Answer Notes LastModified by Organizat ion Details LastModified Time Tobacco Smoking Status Current Every Day Smoker Oksana Lennon NP [address] [facility], [address], [place], [address], [facility] 08/22/2024 17:36:42 What Is Your Code Status? Full Code Information not available 08/22/2024 Where Do You Live? Apartment Information not available 08/22/2024 Do You Have A Medical Power Of Line Locator? Yes Has HCP [email or web address] Information not available 08/23/2024 What Was The Date Of Your Most Recent Tobacco Screening? 08/22/2024 Information not available 08/22/2024 Do You Have An Out Of Hospital DNR? Yes [email or web address] Information not available 08/23/2024 What Is Your [...] Recorded Time Tdap 09/04/2023 completed Bri Mccall [facility] 10/04/2024 14:59:23 influenza, unspecified formulation 06/27/2022 completed Brimoses Mccall [facility] 10/04/2024 14:59:38 influenza, unspecified formulation 06/26/2023 completed Bri [facility] 10/04/2024 14:59:46 SARS-COV-2 (COVID-19) vaccine, UNSPECIFIED 10/16/2020 completed Bri [facility] 10/04/2024 15:00:00 SARS-COV-2 (COVID-19) vaccine, UNSPECIFIED 11/06/2020 completed Bri [facility] 10/04/2024 15:00:07 SARS-COV-2 (COVID-19) vaccine, UNSPECIFIED 06/02/2021 completed Bri Cal [facility] 10/04/2024 15:00:15 SARS-COV-2 (COVID-19) vaccine, UNSPECIFIED 06/27/2022 completed Bri Cal [facility] 10/04/2024 15:00:22 SARS-COV-2 (COVID-19) vaccine, UNSPECIFIED 06/26/2023 completed Bri [facility] 10/04/2024 15:00:37 Past Encounters Encounter ID Performer Location Encounter Start Date Encounter Closed Date Diagnosis/Indication Diagnosis SNOMED-CT Code Diagnosis ICD10 Code Diagnosis Note [id number] Oksana Lennon NP [address] [address] 08/22/2024 14:49:44 08/23/2024 10:31:07 Adult failure to thrive syndrome 132163266 R62.7 supportive carept /ot eval and treat for rom, mobility, strengthen ing, gait, balancemon itor for need to adjust careplan Hypertensive disorder 38 169842 I10 amlodipine 10 mg po qdmetoprol ol xl 100 mg po qdhydralaz ine 50 tidmonitor bp and need to adjust Hyperkalemia 91884870 E8 7.5 renal diet, low potassiuml okelma 10 g qdsodium bicarb 650 mg po bidcbc and bmp weekly x 3 weeks Chronic ki dney disease stage 4 198338392 N18.4 renal diet, low potassiumw as educated in hospital about diet, cont here with dieticainb aseline 2.5-3lokel ma 10 g qdsodium bicarb 650 mg po bidfu with nephrology Dr Perez ? Dr Mc 2 weeks Peripheral vascular disease 797223419 I73.9 with BKA Right and [address] and severe vascuopath yxarelto 2.5 mg po bidoxycodo ne 5 mg po q 8 hours prn paintyl prnPT/OT eval and treatfu plan:[facility] 12/3 3pm and 330 pm and 09/08 1:30 pmwill leave open to air for nowmonitor for s/s of infection Type 2 kishor betes mellitus 57411848 E11.21 farxiga 10 mg po qdlispro tid ac SSImonitor BS and adjust as needed Benign pro static hyperplasia 252376348 N40.0 tamsulosin 0.4 mg po dailyfinas teride 5 mg po qdmonitor Hyperlipidemia 64838883 E78.5 atorvastat in 10 mg po qdaspirin 81 mg po qdmonitor Smoker 01585238 F17.200 pt is chronic smokereduc ated 3-10 minutes and refuses NRT or to quitplan is to continue smokingmon itor for readiness to quit with chronic disease [id number] Janice Mitchell MD [address] [address] 08/23/2024 19:50:37 08/29/2024 13:25:12 Adult failure to thrive syndrome 375965007 R62.7 PT/OT as above.Astrid tor mood and po intake.Psy ch consult prn Hypertensive disorder 38 330654 I10 Some borderline SBPs since here, but diastolics all low normal or low.No change in meds for nowContinu e amlodipine 10 mg qd, metoprolol succinate 100 mg qd, and hydralazin e 50 mg TID.Monito r BP and labs Hyperkalemia 71515942 E8 7.5 In good control on current regimen.Co ntinue renal diet, Lokelma 10 g qd and sodium bicarb 650 mg BID.Monito r labs. Chronic ki dney disease stage 4 571344190 N18.4 At baseline.C ontinue to avoid nephrotoxi c meds as able.Monit or labs.Renal f/u as planned. Peripheral vascular disease 664971363 I73.89 Z89.511 Recovering well from BKA on [...] this week. Type 2 kishor betes mellitus 37632102 E11.21 Sugars in good control since here.Last HgA1C was 7.4 in 03/2024, and 6.4 on 08/22/24.C ontinue Farxiga 10 mg qd and SSI.Monito r fingerstic ks TID and HgA1C q 3 months. Benign pro static hyperplasia 005236139 N40.0 No current sxs.Contin ue tamsulosin 0.4 mg qd and finasterid e 5 mg qdMonitor urinary function. Hyperlipidemia 98459648 E78.49 Continue atorvastat in 10 mg qd and ASA 81 mg qdMonitor labs as outpt. Smoker 86027598 F17.213 Earlier told someone he was jonesing for a cigarette , but tells me he is considerin g quitting.N ot interested in NRT, says he has had bad rxns.Sole nue to encourage cessation. [id number] Oksana Lennon NP [address] [address] 09/08/2024 12:24:42 09/12/2024 13:04:51 Peripheral vascular disease 457246627 I73.89 Z89.511 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, but having trouble with amp emotionall y and trouble caring for himself.co ntPT/OT for strengthen ing, balance, gait training, safety and function.a [facility] ontinue fall precaution s.Monitor for safety.Con tinueXarel to 2.5 mg BID for DVT prophylaxi s.oxycodon e 5 mg q 8 hrs prnAPAP 650 mg q 4 hrs prn.F/U with vascular as planned.Mo nitor incision, healed in today09/08 rehan ordered and faxed to [facility] with appt 09/15fu in spring for further testing of left leg Adult fail ure to thrive syndrome 096616049 R62.7 PT/OT as above.Astrid tor mood and po intake.Psy ch consult prn Hypertensive disorder 38 298232 I10 bp stableCont inueamlodi pine 10 mg qdmetoprol ol succinate 100 mg qd,hydrala zine 50 mg TID.Monito r BP and labs Hyperkalemia 33477052 E8 7.5 In good control on current regimen.Co ntinue renal diet (low k)Lokelma 10 g qdsodium bicarb 650 mg BID.Monito r labs. not done this week, will reorder Chronic ki dney disease stage 4 953896315 N18.4 At baseline.C ontinue to avoid nephrotoxi c meds as able.monit or bmp for increased kcont sodium bicarbonat e bidMonitor labs.Renal f/u as planned. Type 2 kishor betes mellitus 74263814 E11.21 BS stableLast HgA1C was 7.4 in 03/2024, and 6.4 on 08/22/24.C ontinueFar xiga 10 mg qd and SSI.Monito r fingerstic ks TID and HgA1C q 3 months. Benign pro static hyperplasia 229633487 N40.0 No current sxs.Contin uetamsulos in 0.4 mg qd and finasterid e 5 mg qdMonitor urinary function. Hyperlipidemia 05402599 E78.49 Continueat orvastatin 10 mg qd and ASA 81 mg qdMonitor labs as outpt. Smoker 89504094 F17.213 continues to smokeNot interested in NRT, says he has had bad rxns.educsilvestre tate on smoking cessationC ontinue to encourage cessation. [id number] Oksana Lennon NP [facility] [address] 09/14/2024 14:33:03 09/16/2024 14:16:40 Peripheral vascular disease 813392354 I73.89 Z89.511 Recovering well from BKA on [...] prn Adult fail ure to thrive syndrome 569001755 R62.7 Monitor mood and intakePsyc h consult prn Hypertensive disorder 38 374754 I10 bp stable hereContin ueamlodipi ne 10 mg qdmetoprol ol succinate 100 mg qd,hydrala zine 50 mg TID.Monito r BP and labs outpt with pcplabs ordered but not done, will attempt tomorrow again Hyperkalemia 86504399 E8 7.5 In good control on current regimen.Co ntinue renal diet (low k)Lokelma 10 g qdsodium bicarb 650 mg BID.Monito r labs. not done this week, will reorder for ed am again before dc(unclear why labs aren't done, question difficult stick? )fu with pcp Chronic ki dney disease stage 4 693619528 N18.4 At baseline.C ontinue to avoid nephrotoxi c meds as able.conts odium bicarbonat e bidMonitor labs outpt with pcpRenal f/u as planned. Type 2 kishor bettorres mellitus 36721217 E11.21 BS stableLast HgA1C was 7.4 in 03/2024, and 6.4 on 08/22/24.C ontinueFar xiga 10 mg qd and SSI.Monito r fingerstic ks TID and HgA1C q 3 months Benign pro static hyperplasia 514979143 N40.0 No current sxs.Contin uetamsulos in 0.4 mg qd and finasterid e 5 mg qdMonitor urinary function Hyperlipidemia 73649099 E78.49 Continueat orvastatin 10 mg qd and ASA 81 mg qdMonitor labs with pcp prn Smoker 47436735 F17.213 continues to smokeNot interested in NRT, says he has had bad rxns.educsilvestre tate on smoking cessationC ontinue to encourage cessation [id number] Oksana Lennon NP [address] [address] 09/21/2024 13:09:13 09/22/2024 12:24:03 Peripheral vascular disease 825564215 I73.89 Z89.511 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, but having trouble with amp emotionall y and trouble caring for himself.ov erall doing much better and healing in, incision closedCont inue fall precaution s.Monitor for safety.Con tinueXarel to 2.5 mg BID for DVT prophylaxi s.APAP 650 mg q 4 hrs prn.has rehabilitation aide and educated on need to use it so he can get prothetic soon.will fu with bell prothetics fu in spring for further testing of left leg with vascular outpt and prn Adult fail ure to thrive syndrome 636818835 R62.7 Monitor mood and intakePsyc h consult prn Hypertensive disorder 38 429059 I10 bp stable 118/64Cont inueamlodi pine 10 mg qdmetoprol ol succinate 100 mg qd,hydrala zine 50 mg TID.Monito r BP and labs outpt with pcp Hyperkalemia 27172261 E8 7.5 In good control on current regimen.Co ntinue renal diet (low k)Lokelma 10 g qdsodium bicarb 650 mg BID.Monito r labs.fu with renal Chronic ki dney disease stage 4 710905607 N18.4 At baseline.C ontinue to avoid nephrotoxi c meds as able.conts odium bicarbonat e bidRenal f/u as planned. Type 2 kishor betes mellitus 30302531 E11.21 BS stableHgA1 C was 7.4 in 03/2024, and 6.4 on 08/22/24 improvedCo ntinueFarx iga 10 mg qd and SSI.Monito r fingerstic ks TID and HgA1C q 3 months Benign pro static hyperplasia 892774005 N40.0 No current sxs.Contin uetamsulos in 0.4 mg qd and finasterid e 5 mg qdMonitor urinary function [id number] Oksana Lennon, TANYA [facility] [address] [address] 09/22/2024 12:31:57 09/26/2024 12:28:42 Peripheral vascular disease 020520808 I73.89 Z89.511 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, but having trouble with amp emotionall y and trouble caring for himself.ov erall doing much better and healing in, incision closedCont inue fall precaution s.Monitor for safety.Con tinueXarel to 2.5 mg BID for DVT prophylaxi s.APAP 650 mg q 4 hrs prn.has rehabilitation aide and educated on need to use it so he can get prothetic soon.will fu with bell prosthetic sfu in spring for further testing of left leg with vascular outpt and prn Adult fail ure to thrive syndrome 951522377 R62.7 Monitor mood and intakePsyc h consult prn Hypertensive disorder 38 977271 I10 stableCont inueamlodi pine 10 mg qdmetoprol ol succinate 100 mg qd,hydrala zine 50 mg TID.Monito r BP and labs outpt with pcp Hyperkalemia 02467204 E8 7.5 In good control on current regimen.Co ntinue renal diet (low k)Lokelma 10 g qdsodium bicarb 650 mg BID.Monito r labs.fu with renalfu labs cbc and bmp 09/26 Chronic ki dney disease stage 4 805813268 N18.4 At baseline.C ontinue to avoid nephrotoxi c meds as able.conts odium bicarbonat e bidRenal f/u as planned. Type 2 kishor betes mellitus 77614662 E11.21 BS stableHgA1 C was 7.4 in 03/2024, and 6.4 on 08/22/24 improvedCo ntinueFarx iga 10 mg qd and SSI.Monito r fingerstic ks TID and HgA1C q 3 months Benign pro static hyperplasia 732275707 N40.0 No current sxs.Contin uetamsulos in 0.4 mg qd and finasterid e 5 mg qdMonitor urinary function Furuncle of buttock 1243 0003 L02.32 large abcess on posterior right upper buttock likely [id number] /19start cephalexin 500 mg po q 8 hours (will decrease from q6 hr dosing due to poor renal fx)x 7 days with probioticn s wash, pat dry, and apply foam dressing to areamonito r for s/s of infectionc bc and bmp on 09/26cons ider wound consult Angioedema of lip 828114 005 T78.3XXA pt with angioedema to only [...] distress, diff swallowing , or increased swelling [id number] [facility] [address] 09/23/2024 08:41:31 09/26/2024 14:26:31 Angioedema of lip 433393877 T78.3XXA pt with angioedema to only the [...] medication s if reoccurs Peripheral vascular disease 997257706 I73.89 Z89.511 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, but having trouble with amp emotionall y and trouble caring for himself.ov erall doing much better and healing in, incision closedCont inue fall precaution s.Monitor for safety.Con tinueXarel to 2.5 mg BID for DVT prophylaxi s.APAP 650 mg q 4 hrs prn.has rehabilitation aide and educated on need to use it so he can get prothetic soon.will fu with bell prosthetic sfu in spring for further testing of left leg with vascular outpt and prn Adult fail ure to thrive syndrome 828883619 R62.7 Monitor mood and intakePsyc h consult prn Hypertensive disorder 38 732409 I10 stableCont inueamlodi pine 10 mg qdmetoprol ol succinate 100 mg qd,hydrala zine 50 mg TID.Monito r BP and labs outpt with pcp Hyperkalemia 79304124 E8 7.5 In good control on current regimen.Co ntinue renal diet (low k)Lokelma 10 g qdsodium bicarb 650 mg BID.Monito r labs.fu with renalfu labs cbc and bmp 09/26 Chronic ki dney disease stage 4 470578881 N18.4 At baseline.C ontinue to avoid nephrotoxi c meds as able.conts odium bicarbonat e bidRenal f/u as planned. Type 2 kishor betes mellitus 02039428 E11.21 BS stableHgA1 C was 7.4 in 03/2024, and 6.4 on 08/22/24 improvedCo ntinueFarx iga 10 mg qd and SSI.Monito r fingerstic ks TID and HgA1C q 3 months Benign pro static hyperplasia 280449009 N40.0 No current sxs.Contin uetamsulos in 0.4 mg qd and finasterid e 5 mg qdMonitor urinary function Carbuncle of buttock 762 90339 L02.33 large golf ball size abcess on [...] to assess renal func and for infection [id number] Janice Mitchell MD [address] [address] 09/26/2024 19:01:26 09/27/2024 08:53:46 Carbuncle of buttock 03284911 L02.33 Improving. Continue cephalexin 500 mg q 8 hrs until 09/29 with probiotic BID.Contin ue wound care as ordered.To be seen by wound care in AM before d/c.F/U with PCP as outpt. Angioedema of lip 359780 005 T78.3XXA ResolvedFi brandon prednisone taper.Astrid tor for recurrence . Peripheral vascular disease 163070368 I73.89 Z89.511 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.Cont inue Xarelto 2.5 mg BID for DVT prophylaxi s (not sure how long he needs to be on this).Cont inue APAP 650 mg q 4 hrs prn.No longer needing Oxy.Contin ue rehabilitation aide and f/u with prosthetis t as planned.F/ U with vascular as planned. Adult fail ure to thrive syndrome 354645102 R62.7 Much improved.F /U with PCP as outpt. Hypertensive disorder 38 043175 I10 In good control.Co ntinue amlodipine 10 mg qd, metoprolol succinate 100 mg qd, and hydralazin e 50 mg TID.F/U with PCP as outpt. Hyperkalemia 54229849 E8 7.5 Remains WNL, but sl. higher than 09/15, likely due to UMAIR.Contin ue renal diet (low k)Continue NaHCO3 as above and Lokelma 10 gms qdWill order repeat labs for 09/29 with [facility]. Chronic ki dney disease stage 4 436742562 N18.4 With sig worsening today compared to 09/15Enc raged pt to drink more fluids.Con tinue to avoid nephrotoxi c meds as able.Sole nue sodium bicarbonat e 650 mg BID.Renal f/u as planned. Type 2 kishor betes mellitus 86272101 E11.21 BS mostly in ood control since here with occ high readingHgA 1C was 7.4 in 03/2024, and 6.4 on 08/22/24 improvedCo ntinue Farxiga 10 mg qd and SSI.F/U with PCP as outpt. Benign pro static hyperplasia 915325889 N40.0 No sxs. since here.Sole nue tamsulosin 0.4 mg qd and finasterid e 5 mg qdF/U with PCP as outpt. Hyperlipidemia 50241487 E78.49 Continue atorvastat in 10 mg qd and ASA 81 mg qdMonitor labs as outpt. Smoker 96447013 F17.213 Has been smoking since here.Refus ed NRT.Contin ue to encourage cessation. [id number] ISABEL SAUNDERS, TANYA [address] [address] 09/29/2024 15:04:27 09/30/2024 12:02:02 Chronic kidney disease stage 4 454946489 N18.4 With sig worsening 09/26 compared to 09/15Enc rage fluids.Con tinue to avoid nephrotoxi c meds as able.Follo w up with Nephrology as sched.Cont inue sodium bicarbonat e 650 mg BID.CMP in am Hyperkalemia 51094750 E8 7.5 Remains WNL, but sl. higher than 09/15, likely due to UMAIR.Contin ue renal diet (low k)Continue NaHCO3 as above and Lokelma 10 gms qdWill order repeat labs for 09/30 Peripheral vascular disease 732013451 I73.89 Z89.511 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.Cont inue Xarelto 2.5 mg BID for DVT prophylaxi s (not sure how long he needs to be on this).Cont inue APAP 650 mg q 4 hrs prn.No longer needing Oxy.Contin ue rehabilitation aide and f/u with prosthetis t as planned.F/ U with vascular as planned. Carbuncle of buttock 762 47401 L02.33 Improving. Continue cephalexin 500 mg q 8 hrs until complete, as well as probiotic BID.Contin ue wound care as ordered.To be seen by wound care in AM before d/c.F/U with PCP as outpt. Angioedema of lip 134596 005 T78.3XXA ResolvedFi brandon prednisone taper.Astrid tor for recurrence . Adult fail ure to thrive syndrome 698299738 R62.7 Much improved.F /U with PCP as outpt. Hypertensive disorder 38 154844 I10 In good control.Co ntinue amlodipine 10 mg qd, metoprolol succinate 100 mg qd, and hydralazin e 50 mg TID.F/U with PCP as outpt. Type 2 kishor betes mellitus 66983847 E11.21 BS mostly in good control since here with occ. high readingHgA 1C was 7.4 in 03/2024, and 6.4 on 08/22/24 improvedCo ntinue Farxiga 10 mgBS bid once a week and prnF/U with PCP as outpt. Benign pro static hyperplasia 506362531 N40.0 No sxs. since here.Sole nue tamsulosin 0.4 mg qd and finasterid e 5 mg qdF/U with PCP as outpt. Hyperlipidemia 84726616 E78.49 Continue atorvastat in 10 mg qd and ASA 81 mg qdMonitor labs as outpt. Smoker 20375211 F17.213 Has been smoking since here.Refus ed NRT.Contin ue to encourage cessation. [id number] Janice Mitchell MD [facility] [address] 09/30/2024 14:58:21 10/03/2024 12:45:37 Chronic kidney disease stage 4 744782032 N18.4 With sig worsening on 09/26 compared to t was going to drink more fluids at home and he says he did.Contin ue to avoid nephrotoxi c meds as able.Sole nue sodium bicarbonat e 650 mg BID.Renal f/u as planned.La bs were to be rechecked today, but pt refused.Pr omises he will allow lab draw on Wednesday 10/03. Hyperkalemia 68913953 E8 7.5 Remains WNL, but was sl. higher on 09/26 than 09/15, likely due to UMAIR.Contin ue renal diet (low k)Continue NaHCO3 as above and Lokelma 10 gms qdLabs on 10/03 as above. Peripheral vascular disease 010455606 I73.89 Z89.511 Has recovered well from BKA on 07/21.Cont inue Xarelto 2.5 mg BID for DVT prophylaxi s (not sure how long he needs to be on this).Cont inue APAP 650 mg q 4 hrs prn.Contin ue rehabilitation aide and f/u with prosthetis t as planned.F/ U with vascular as planned. Carbuncle of buttock [id number] 14274 L02.33 Improving per pt.Wound care note from 09/27 not scanned in to [facility] yet.Contin ue cephalexin 500 mg q 8 hrs until 10/02 with probiotic BID.Contin ue wound care as ordered.F/ U with wound care weekly until healed. Angioedema of lip 705626 005 T78.3XXA ResolvedHa s completed prednisone taper.Astrid tor for recurrence . Adult fail ure to thrive syndrome [id number] R62.7 Much improved.C ontinue liquid protein 30 mg qd to help with wound healing.En courage healthy eating. Hypertensive disorder 38 674550 I10 Remains in good control.Co ntinue amlodipine 10 mg qd, metoprolol succinate 100 mg qd, and hydralazin e 50 mg TID.Monito r BP and labs. Type 2 kishor betes mellitus 11049434 E11.21 Very good since return, all <150.HgA1C was 7.4 in 03/2024, and 6.4 on 08/22/24.C ontinue Farxiga 10 mg qd and SSI.If sugars remain <200 consistent ly can change TID fingerstic ks to qAM. Benign pro static hyperplasia 994549922 N40.0 No sxs. since here.Sole nue tamsulosin 0.4 mg qd and finasterid e 5 mg qdMonitor urinary function. Hyperlipidemia 88661937 E78.49 Continue atorvastat in 10 mg qd and ASA 81 mg qdMonitor labs yearly. Smoker 71544175 F17.213 Continues to smoke.Cont inues to refuse NRT.Contin ue to encourage cessation. [id number] Oksana Lennon NP [place] [address] [place] [address] 10/13/2024 10:10:33 10/14/2024 10:47:39 Chronic kidney disease stage 4 [id number] N18.4 With sig worsening on 09/26 compared to t was going to drink more fluids at home and he says he did.Contin ueavoid nephrotoxi c meds as able.sodiu m bicarbonat e 650 mg BID.Renal f/u as planned.La bs ordered for bmp and cbc on 10/19 on thu x 2labs as above Hyperkalemia 78790075 E8 7.5 Remains WNL, but was sl. higher on 09/26 than 09/15, likely due to UMAIR.Contin uerenal diet (low k)NaHCO3 as aboveLokel ma 10 gms qdLabs on 10/03 as above.bmp and cbc 10/19 ordered Peripheral vascular disease 387069093 I73.89 Z89.511 Has recovered well from r BKA on 07/21.plan for prothetic on 10/21 per pt.Continu eXarelto 2.5 mg BID for DVT prophylaxi s (not sure how long he needs to be on this).Cont inue APAP 650 mg q 4 hrs prn.Contin ue rehabilitation aide and f/u with prosthetis t as planned.F/ U with vascular as planned. Carbuncle of buttock 762 06837 L02.33 Improving per pt.mostly healedCont inuecomple lea cephalexin 500 mg q 8 hrs until 10/02 with probiotic BID.Contin ue wound care as ordered.F/ U with wound care weekly until healed.ratna l order zinc cream to right upper abcess buttock qd until healedmoni tor for s/s of infection Adult fail ure to thrive syndrome 241470347 R62.7 Much improved.E ncourage healthy eating. Hypertensive disorder 38 713056 I10 Remains in good control.Co ntinueamlo dipine 10 mg qd, metoprolol succinate 100 mg qd, and hydralazin e 50 mg TID.Monito r BP and labs. Type 2 kishor bettorres mellitus 98041872 E11.21 Very good since return, all <150.HgA1C was 7.4 in 03/2024, and 6.4 on 08/22/24.C ontinue Farxiga 10 mg qd and SSI.If sugars remain <200 consistent ly can change TID fingerstic ks to qAM. Benign pro static hyperplasia 950863157 N40.0 No sxs. since here.Sole nuetamsulo sin 0.4 mg qd and finasterid e 5 mg qdMonitor urinary function. Hyperlipidemia 84990660 E78.49 Continueat orvastatin 10 mg qd and ASA 81 mg qdMonitor labs yearly. Smoker 57655066 F17.213 Continues to smoke.spen t 3-10 min on education and NRT therapy, he is willing to try nicorette gumnicoret te gum 4 mg po q 3 hours prn cravingsCo ntinue to encourage cessation. [id number] Oksana Lennon NP [address] [address] 10/21/2024 09:04:51 10/24/2024 16:33:36 Peripheral vascular disease 579493680 I73.89 Z89.511 Has recovered well from r BKA on 07/21.plan for prosthetic on 10/21 per pt.Continu eXarelto 2.5 mg BID for DVT prophylaxi s (not sure how long he needs to be on this).APAP 650 mg q 4 hrs prn.shrink er and f/u with prosthetis t as planned.F/ U with vascular as planned outpt in the spring Chronic dney disease stage 4 872993996 N18.4 With sig worsening on 09/26 compared to t was going to drink more fluids at home and he says he did.Contin ueavoid nephrotoxi c meds as able.sodiu m bicarbonat e 650 mg BID.Renal f/u as planned.la bs as above, and reordered Smoker 69101322 F17.213 Continues to smoke.jm rette gum 4 mg po q 3 hours prn cravingsCo ntinue to encourage cessation. Carbuncle of buttock 762 33714 L02.33 resolvedco mpleted cephalexin 500 mg q 8 hrs until 10/02 with probiotic BID..will order zinc cream to right upper abcess buttock qd until healedmoni tor for s/s of infection Hyperkalemia 52175735 E8 7.5 Remains WNL, but was sl. higher on 09/26 than 09/15, likely due to UMAIR.Contin uerenal diet (low k)NaHCO3 as aboveLokel ma 10 gms qdbmp and cbc weekly for one more lab Adult fail ure to thrive syndrome 196493035 R62.7 Much improved and seems to be doing better with plan for BKA soonEncour age healthy eating. Hypertensive disorder 38 893644 I10 Remains in good control.Co ntinueamlo dipine 10 mg qdmetoprol ol succinate 100 mg qdhydralaz ine 50 mg TID.Monito r BP and labs. Type 2 kishor betes mellitus 36730082 E11.21 Very good since return, all <150.HgA1C was 7.4 in 03/2024, and 6.4 on 08/22/24.C ontinue Farxiga 10 mg qd and SSI.If sugars remain <200 consistent ly can change TID fingerstic ks to qAM. Benign pro static hyperplasia 529718559 N40.0 No sxs. since here.Sole nuetamsulo sin 0.4 mg qd and finasterid e 5 mg qdMonitor urinary function. Hyperlipidemia 65640492 E78.49 Continueat orvastatin 10 mg qd and ASA 81 mg qdMonitor labs yearly. Angioedema of lip 312562 005 T78.3XXA ResolvedHa s completed prednisone taper.Astrid tor for recurrence . [id number] [facility] [address] [place] [address] 11/11/2024 08:19:31 11/15/2024 13:47:34 Peripheral vascular disease 308447118 I73.89 Z89.511 Has recovered well from r BKA on 07/21/24.H e plans to discharge despite prosthetic not fitting well and fu with [employer] on Thursday.He does not want to stay [...] the spring Chronic dney disease stage 4 956167677 N18.4 With CKD at baselineCo ntinueavoi d nephrotoxi c meds as able.sodiu m bicarbonat e 650 mg BID.Renal f/u as planned ouitptfu with pcp outpt and renal outpt Smoker 40915049 F17.213 Continues to smoke.jm rette gum 4 mg po q 3 hours prn cravingsCo ntinue to encourage cessation outpt Carbuncle of buttock 762 43370 L02.33 resolvedco mpleted cephalexin 500 mg q 8 hrs until 10/02 with probiotic BID..will order zinc cream to right upper abcess buttock qd until healedmoni tor for s/s of infection outpt with pcp Hyperkalemia 20013329 E8 7.5 Remains WNLContinu erenal diet (low k)NaHCO3 as aboveLokel ma 10 gms qdlabs outpt with pcp Adult fail ure to thrive syndrome 733922865 R62.7 Much improved and seems to be doing better with plan for BKA soonEncour age healthy eating outpt Hypertensive disorder 38 979213 I10 Remains in good control, bp high this am but has not got his bp meds yet todayConti nueamlodip ine 10 mg qdmetoprol ol succinate 100 mg qdhydralaz ine 50 mg TID.Monito r BP and labs outpt with pcp Type 2 kishor betes mellitus 76754259 E11.21 Very good since return, mostly <150.HgA1C was 7.4 in 03/2024, and 6.4 on 08/22/24.C ontinueFar xiga 10 mg qd and SSI.If sugars remain <200 consistent ly can change TID fingerstic ks to qAM.monito r outpt with pcp outpt Benign pro static hyperplasia 604043406 N40.0 No sxs. since here.Sole nuetamsulo sin 0.4 mg qdfinaster paula 5 mg qdMonitor urinary function outpt with pcp Hyperlipidemia 68513949 E78.49 Continueat orvastatin 10 mg qdASA 81 mg qdMonitor labs with pcp prn Angioedema of lip 415429 005 T78.3XXA Resolvedwa s never on sarita [...] Member ID Guarantor Name 11/11/[address] [facility] - DOS ON OR AFTER 2023 - MEDICARE ADVANTAGE [place] (MEDICARE REPLACEMENT/ADV ANTAGE - PPO) Renato Hinson [id number] Renato Hinson Notes Date Note Type Note Provider Name and Address Organization Details Recorded Time 09/29/2024 text/html Renato is seen today for initial intake. He is a 64 yo man, just discharged from [facility] 09/27. 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 ISABEL SAUNDERS NP [address] [facility], [address], [place], [address], [facility] [employer] 09/29/2024 15:14:57 09/30/2024 text/html This is a [...] HLD, and cigarette smoker. Janice Mitchell MD [address] [place] [address], [address], [place], [address], [facility] [employer] 09/30/2024 16:14:41 10/13/2024 text/html Pt is seen for an acute rounding visit today. His PMH includes [...] a few times. Oksana Lennon, TANYA [address] [facility], [address], [place], [address], [facility] [employer] 10/13/2024 10:38:23 10/21/2024 text/html Pt is seen for a 90 day routine rounding visit today. His PMH includes HTN, severe PVD s/p right BKA on 07/21/24, AODM with neuropathy, CKD stage 4, hx of Hep C from tattoo, latent Tb (txed in 2020), HLD, and cigarette smoker. Renato is 64 yo man here at [facility] who d/c'd to home [...] resolved with abx. He has received his rehabilitation aide and site of BKA well healed. His prosthetic should be in this week. He is aware he should stay a few days to make should he has proper training and guidance to use the prosthetic here with therapy and then consider dc home. On exam, he is seen lying in bed in [facility]. He is excited to get his prosthetic this week and get back to his old life. He denies any new concerns. Unclear if weight is accurate at 182 lbs this week which would be down form 198 lbs on admission. Will have another weight done. Denies any vomiting or decreased eating today. Oksana Lennon, TANYA [address] [facility], [address], [place], [address], [facility] [employer] 10/21/2024 17:16:46 11/11/2024 text/html Pt is seen for a discharge summary. His PMH includes HTN, severe PVD s/p right BKA on 07/21/24, AODM with neuropathy, CKD stage 4, hx of Hep C from tattoo, latent Tb (txed in 2020), HLD, and cigarette smoker. Renato is 64 yo man here at [facility] for re[facility] who d/c'd to home [...] resolved with abx. He has received his rehabilitation aide and site of BKA well healed. He [...] the prosthetic place on Thursday morning. His rehabilitation aide is applied at this visit and he is aware the rehabilitation aide is almaraz to wear to keep the swelling down. On exam, He states he is going home with , has walker and cane, and will be just fine . He denies any other complaints or concerns. Lung CTA in NAD. Oksana Lennon NP [address] [facility], [address], [place], [address], [facility] [employer] 11/11/2024 08:43:30
--- OUTSIDE RECORDS SUMMARY | 2025-04-29 10:57 | XMS_ITS | Clinical Summary ---
Author Organization [facility] Address [address] [facility] [address] [place] [address] Phone Care Team Providers Care Agricultural Engineer Name Role Phone Michelle Long MD Primary Care Provider [phone] Allergies Active Allergy Reactions Criticality Noted Date [...] Telephone [facility] [address] [place] [address] Sydney Rosales from Last 3 Months Family [...] to 49 Years) Discontinued 07/01/2010 Insurance [address] [place] [id number] [facility] ([id number]) MAHESH MACIAS [phone] [facility] Dual SNP ([id number]) Care Teams Agricultural Engineer Relationship Specialty Start Date End Date Michelle Long MD [address] [place], [place] PCP - General Internal Medicine 10/06/23
[2025-04-29 11:01] LABS: Hematocrit 36.3 % (42.0-52.0); Hemoglobin 11.6 g/dl (14.0-18.0); Imm Gran Abs Auto 0.03 X10*3/uL (0.00-0.03); Imm Gran Pct Auto 0.4 % (0.0-0.4); Lymphocytes Absolute Auto 1.1 X10*3/uL (1.2-4.9); Mean Corpuscular HGB Conc 32.0 g/dl (31.0-36.0); Mean Corpuscular Hemoglobin 29.4 pg (27.0-33.0); Mean Corpuscular Volume 91.9 fL (80.0-98.0); NRBC Abs Auto 0.000 X10*3/uL (0.0-0.012); NRBC Pct Auto 0.0 /100WBC (0.0-0.2); Platelet Count 285 X10*3/uL (160-400); Red Blood Count 3.95 X10*6/uL (4.60-5.80); White Blood Count 7.8 X10*3/uL (4.8-10.8)
[2025-04-29 12:44] LABS: Alanine Aminotransferase 8 U/L (0-40); Albumin Level 3.0 g/dL (3.5-5.0); Alkaline Phosphatase 81 U/L (39-117); Anion Gap 15 (12-20); Aspartate Amino Transferase 16 U/L (5-37); Blood Urea Nitrogen 61 mg/dL (9-16); Calcium 8.3 mg/dL (8.4-10.2); Carbon Dioxide 16 mmol/L (22-29); Chloride 114 mmol/L (96-108); Creatinine Clr Calc Pharmacy 8.1; Estimated Glomerular Filt Rate 7; Potassium 4.5 mmol/L (3.3-5.1); Sodium 140 mmol/L (135-145); Total Protein 7.1 g/dL (6.5-8.0)
--- NOTE | 2025-04-29 13:06 | PC.NURSE ---
Addendum entered by Geraldine Germain RN 04/29/25 13:07: Pt voided 250cc pink tinged urine. U/A collected and sent. Original Note: Pt unable to void in urinal to provide urinal sample after several attempts. Bladder scanned 457mL. Provider notified, will allow pt more time to void.
[2025-04-29 13:12] LABS: Appearance Urine Clear; Glucose Urine UA 500 mg/dL (Negative); PH 7.0 (5.0-9.0); Specific Gravity - Urine 1.015 (1.005-1.025); UMIC TRIGGER UACC YES
[2025-04-29 18:18] VITALS: BP 181/71; PULSE 82; RESP 19; TEMP 36.7; O2SAT 95
== END 2025-04-29 18:41 | disposition home or self-care (01) ==
PROVIDERS: Emergency Provider Emergency Medicine
DX: R31.9 Hematuria, unspecified (principal); R30.0 Dysuria; E11.22 Type 2 diabetes mellitus with diabetic chronic kidney disease; I13.2 Hypertensive heart and chronic kidney disease with heart failure and with stage 5 chronic kidney disease, or end stage renal disease; N18.5 Chronic kidney disease, stage 5; I50.9 Heart failure, unspecified; D63.1 Anemia in chronic kidney disease; Z79.82 Long term (current) use of aspirin; Z79.01 Long term (current) use of anticoagulants; Z79.02 Long term (current) use of antithrombotics/antiplatelets; Z79.4 Long term (current) use of insulin
CPT/HCPCS: 36415; 80053; 81001; 82947; 85025; 93005; 99283; 99285

== ENCOUNTER → 2025-04-29 10:50 | Outpatient (BNV) | payer OTHER, SELFPAY | PROVIDERS: Emergency Provider Emergency Medicine; Visit Provider Internal Medicine Cardiovascular Disease | DX: I44.7 Left bundle-branch block, unspecified (principal) | CPT/HCPCS: 93010 ==

== ENCOUNTER 2025-05-02 12:29 | Outpatient (REF) | payer OTHER, SELFPAY ==
[2025-05-02 12:47] LABS: MANUAL DIFF FLAG NO
[2025-05-02 13:15] LABS: Hematocrit 33.5 % (42.0-52.0); Hemoglobin 10.8 g/dl (14.0-18.0); Imm Gran Abs Auto 0.02 X10*3/uL (0.00-0.03); Imm Gran Pct Auto 0.3 % (0.0-0.4); Lymphocytes Absolute Auto 1.1 X10*3/uL (1.2-4.9); Mean Corpuscular HGB Conc 32.2 g/dl (31.0-36.0); Mean Corpuscular Hemoglobin 29.1 pg (27.0-33.0); Mean Corpuscular Volume 90.3 fL (80.0-98.0); NRBC Abs Auto 0.000 X10*3/uL (0.0-0.012); NRBC Pct Auto 0.0 /100WBC (0.0-0.2); Platelet Count 252 X10*3/uL (160-400); Red Blood Count 3.71 X10*6/uL (4.60-5.80); White Blood Count 6.0 X10*3/uL (4.8-10.8)
--- OUTSIDE RECORDS SUMMARY | 2025-05-02 13:17 | XMS_ITS | Encounter Summary ---
Author Organization [facility] [address] Address [address] [place] [address] Care Team Providers Care Senior Operations Analyst Name Role Phone Travis Au MD Primary Care Provider [phone] Encounter Details Date Type Department Care Team (Latest Contact Info) Description 11/01/2024 Lab Requisition [facility] Lab [address] [place] [address] Brandon Mckeon MD [address] [place] [address] Type 2 diabetes mellitus without [...] LAB CHEMISTRY METHOD 11/02/2024 12:37 PM EST [facility] Potassium 5.1 3.5 - 5.5 mmol/L [...] MD LAB BLOOD ORDERABLES Final Resu lt [facility] [address] [place] [address], [place] [phone] * (ABNORMAL) Complete blood count (11/02/2024 7:04 AM EST) [facility] WBC 8.5 4.8 - 10.8 K/mcL [...] LAB HEMETOLOGY METHOD 11/02/2024 12:23 PM EST [facility] Blood Venous blood specimen / Unknown Venipuncture / Unknown 11/02/2024 7:04 AM EST 11/02/2024 11:13 AM EST us Brandon Mckeon MD LAB BLOOD ORDERABLES Final Resu lt [facility] [address] [place] [address], documented in this encounter Visit Diagnoses Diagnosis Type 2 diabetes mellitus without complications (CMS/HCC V24, CMS/HCC V28) documented in this encounter Care Teams Senior Operations Analyst Relationship Specialty Start Date End Date Travis Au MD [address] [place] [address], [phone] PCP - General Family Medicine 08/22/24 documented as of this encounter
--- OUTSIDE RECORDS SUMMARY | 2025-05-02 13:17 | XMS_ITS | Clinical Summary ---
Author Organization [facility] Address [address] [facility] [address] [place] [address] Phone Care Team Providers Care Senior Group Manager Name Role Phone Michelle Long MD Primary Care Provider [phone] Allergies Active Allergy Reactions Criticality Noted Date [...] Telephone [facility] [address] [place] [address] Sydney Rosales from Last 3 Months Family [...] 49 Years) Discontinued 07/01/[address] [place] [id number] [facility] ([id number]) [place]HESH [place] [phone] [facility] Dual SNP ([id number]) Care Teams Senior Group Manager Relationship Specialty Start Date End Date Michelle Long MD [address] [place], [place] PCP - General Internal Medicine 10/06/23
--- OUTSIDE RECORDS SUMMARY | 2025-05-02 13:18 | XMS_ITS | Data Portability ---
Author Organization [facility], Main Office Address [address] [facility] [place] [address] Care Team Providers Care Sole Sewer Hand Name Role Phone CANDIS BECK - 2ND FLOOR OTHER KENIA BUITRAGO Primary Care Provider Assessment Encounter Date Assessment Date Assessment LastModified by Organization Details LastModified Time 09/29/2024 09/29/2024 Spent 30 reviewing records, seeing pt, consulting with staff and documenting [email or web address] Not available 09/29/2024 15:04:55 11/11/2024 11/11/2024 Greater than 30 minutes of assessment, education, applying corporate responsibility officer, discharge planning and documentation today. Not available [...] Organization Details Recorded Time Peripheral vascular disease 566671901 Active 2023 Oksana Lennon NP [address] , [address], [place], [address], [facility] [employer] 4 17:52:49 Adult failure to thrive syndrome 815949258 Active 2023 Oksana Lennon NP [address], [address], [place], [address], [facility] [employer] 4 17:53:00 Type 2 diabetes mellitus 53890097 Active 2023 Oksana Lennon NP [address] , [address], [place], [address], [facility] 4 17:53:10 Hypertensive disorder 02089686 Active 2023 Oksana Lennon NP [address], [address], [place], [address], [facility] 4 17:53:15 Benign prostatic hyperplasia 806466163 Active 2023 Oksana Lennon NP [address], [address], [place], [address], [facility] 4 17:53:22 Hyperkalemia 27882443 Active 2023 Oksana Lennon NP [address] [facility], [address], [place], [address], [facility] 4 17:53:30 Chronic kidney disease stage 4 666521809 Active 2023 Oksana Lennon NP [address] [facility], [address], [place], [address], [facility] 4 17:54:21 Hyperlipidemia 66095549 Active 2023 Oksana Lennon NP [address] [facility], [address], [place], [address], [facility] 4 18:13:13 Smoker 67017532 Active 2023 Oksana Lennon NP [address] [facility], [address], [place], [address], [facility] 4 18:15:45 Problem Notes None recorded. Medical Equipment None Reported. Allergies Allergen ID Allergen Name Allergen Category Reaction Reaction Severity Criticality Documentation Date Start Date Code Code System Note Provider Name and Address Organization Details Recorded Time 40152 morphine medicatio n itching Not available low 08/22/2024 7052 RxNorm Janice Mitchell MD [address], [address], [place], [address], [facility] 4 20:23:08 15735 bupropion Not available confusion hallucina tions Not available Not available Not available 08/22/2024 35604 RxNorm tremo rs, aggre ssive , loss of appet ite Janice Mitchell MD [address] [facility], [address], [place], [address] [facility] 4 20:23:00 Vitals Date Recorded Body height Body weight Body mass index (BMI) Heart rate Respiratory rate Body temperature Oxygen saturation Oxygen saturation in Arterial blood by Pulse oximetry Systolic And Diastolic Provider Name and Address Organization Details Last Updated DateTime 5 179.83 cm 27344.8 1 g 25.5 kg/m2 62 /min 16 /min 98.2 [degF] 96 % 96 % 146/74 mm[Hg] Oksana Lennon NP [address] [facility] [address], [place], [address], [facility] 5 10:26:07 Date Recorded Body height Body weight Body mass index (BMI) Heart rate Respiratory rate Body temperature Oxygen saturation Oxygen saturation in Arterial blood by Pulse oximetry Systolic And Diastolic Provider Name and Address Organization Details Last Updated DateTime 5 179.83 cm 15997.8 1 g 25.5 kg/m2 68 /min 18 /min 97.2 [degF] 96 % 96 % 158/65 mm[Hg] Oksana Lennon NP [address] [place] [address], [facility] [address], [place], [address], [facility] 5 16:59:12 Date Recorded Body height Body mass index (BMI) Body weight Heart rate Respiratory rate Body temperature Oxygen saturation Oxygen saturation in Arterial blood by Pulse oximetry Systolic And Diastolic Provider Name and Address Organization Details Last Updated DateTime 5 179.83 cm 24.1 kg/m2 34390.8 9 g 71 /min 19 /min 97.9 [degF] 97 % 97 % 162/81 mm[Hg] Oksana Lennon NP [address] [place] [address], [facility] [address], [place], [address], [facility] 5 08:22:41 Date Recorded Body height Heart rate Respiratory rate Body temperature Oxygen saturation Oxygen saturation in Arterial blood by Pulse oximetry Systolic And Diastolic Provider Name and Address Organization Details Last Updated DateTime 4 179.83 cm 70 /min 18 /min 98 [degF] 98 % 98 % 132/75 mm[Hg] ISABEL SAUNDERS NP [address] [facility], [address], [place], [address], [facility] 4 15:05:47 Date Recorded Body height Body mass index (BMI) Body weight Heart rate Respiratory rate Body temperature Oxygen saturation Oxygen saturation in Arterial blood by Pulse oximetry Systolic And Diastolic Provider Name and Address Organization Details Last Updated DateTime 4 179.83 cm 28.2 kg/m2 76113.0 7 g 77 /min 18 /min 98 [degF] 98 % 98 % 132/75 mm[Hg] Janice Mitchell MD [address] [facility], [facility] [address], [place], [address], [facility] 4 15:06:09 Social History Question Answer Notes LastModified by Organizat ion Details LastModified Time Tobacco Smoking Status Current Every Day Smoker Oksana Lennon NP [address] [facility], [address], [place], [address], [facility] 08/22/2024 17:36:42 What Is Your Code Status? Full Code Information not available 08/22/2024 Where Do You Live? Apartment Information not available 08/22/2024 Do You Have A Medical Power Of Comic Illustrator? Yes Has HCP [email or web address] Information not available 08/23/2024 What Was The Date Of Your Most Recent Tobacco Screening? 08/22/2024 Information not available 08/22/2024 Do You Have An Out Of Hospital DNR? Yes [email or web address] Information not available 08/23/2024 What Is Your [...] Recorded Time Tdap 09/04/2023 completed Bri [facility] 10/04/2024 14:59:23 influenza, unspecified formulation 06/27/2022 completed [facility] 10/04/2024 14:59:38 influenza, unspecified formulation 06/26/2023 completed Bri [facility] 10/04/2024 14:59:46 SARS-COV-2 (COVID-19) vaccine, UNSPECIFIED 10/16/2020 completed Bri [facility] 10/04/2024 15:00:00 SARS-COV-2 (COVID-19) vaccine, UNSPECIFIED 11/06/2020 completed Bri [facility] 10/04/2024 15:00:07 SARS-COV-2 (COVID-19) vaccine, UNSPECIFIED 06/02/2021 completed Bri [facility] 10/04/2024 15:00:15 SARS-COV-2 (COVID-19) vaccine, UNSPECIFIED 06/27/2022 completed Bri [facility] 10/04/2024 15:00:22 SARS-COV-2 (COVID-19) vaccine, UNSPECIFIED 06/26/2023 completed Bri [facility] 10/04/2024 15:00:37 Past Encounters Encounter ID Performer Location Encounter Start Date Encounter Closed Date Diagnosis/Indication Diagnosis SNOMED-CT Code Diagnosis ICD10 Code Diagnosis Note [id number] Oksana Lennon NP [address] [address] 08/22/2024 14:49:44 08/23/2024 10:31:07 Adult failure to thrive syndrome 887345401 R62.7 supportive carept /ot eval and treat for rom, mobility, strengthen ing, gait, balancemon itor for need to adjust careplan Hypertensive disorder 38 917456 I10 amlodipine 10 mg po qdmetoprol ol xl 100 mg po qdhydralaz ine 50 tidmonitor bp and need to adjust Hyperkalemia 74714235 E8 7.5 renal diet, low potassiuml okelma 10 g qdsodium bicarb 650 mg po bidcbc and bmp weekly x 3 weeks Chronic ki dney disease stage 4 924874071 N18.4 renal diet, low potassiumw as educated in hospital about diet, cont here with dieticainb aseline 2.5-3lokel ma 10 g qdsodium bicarb 650 mg po bidfu with nephrology Dr Perez ? Dr Mc 2 weeks Peripheral vascular disease 236084955 I73.9 with BKA Right and [address] and severe vascuopath yxarelto 2.5 mg po bidoxycodo ne 5 mg po q 8 hours prn paintyl prnPT/OT eval and treatfu plan:[facility] lab [facility] 12/3 3pm and 330 pm and 09/08 1:30 pmwill leave open to air for nowmonitor for s/s of infection Type 2 kishor betes mellitus 61828757 E11.21 farxiga 10 mg po qdlispro tid ac SSImonitor BS and adjust as needed Benign pro static hyperplasia 488952718 N40.0 tamsulosin 0.4 mg po dailyfinas teride 5 mg po qdmonitor Hyperlipidemia 31121079 E78.5 atorvastat in 10 mg po qdaspirin 81 mg po qdmonitor Smoker 33685875 F17.200 pt is chronic smokereduc ated 3-10 minutes and refuses NRT or to quitplan is to continue smokingmon itor for readiness to quit with chronic disease [id number] Janice Mitchell MD [address] [address] 08/23/2024 19:50:37 08/29/2024 13:25:12 Adult failure to thrive syndrome 151571575 R62.7 PT/OT as above.Astrid tor mood and po intake.Psy ch consult prn Hypertensive disorder 38 460263 I10 Some borderline SBPs since here, but diastolics all low normal or low.No change in meds for nowContinu e amlodipine 10 mg qd, metoprolol succinate 100 mg qd, and hydralazin e 50 mg TID.Monito r BP and labs Hyperkalemia 12207475 E8 7.5 In good control on current regimen.Co ntinue renal diet, Lokelma 10 g qd and sodium bicarb 650 mg BID.Monito r labs. Chronic ki dney disease stage 4 094907039 N18.4 At baseline.C ontinue to avoid nephrotoxi c meds as able.Monit or labs.Renal f/u as planned. Peripheral vascular disease 966377776 I73.89 Z89.511 Recovering well from BKA on [...] this week. Type 2 kishor betes mellitus 35537880 E11.21 Sugars in good control since here.Last HgA1C was 7.4 in 03/2024, and 6.4 on 08/22/24.C ontinue Farxiga 10 mg qd and SSI.Monito r fingerstic ks TID and HgA1C q 3 months. Benign pro static hyperplasia 172985753 N40.0 No current sxs.Contin ue tamsulosin 0.4 mg qd and finasterid e 5 mg qdMonitor urinary function. Hyperlipidemia 89651179 E78.49 Continue atorvastat in 10 mg qd and ASA 81 mg qdMonitor labs as outpt. Smoker 41921042 F17.213 Earlier told someone he was jonesing for a cigarette , but tells me he is considerin g quitting.N ot interested in NRT, says he has had bad rxns.Sole nue to encourage cessation. [id number] Oksana Lennon NP [address] [address] 09/08/2024 12:24:42 09/12/2024 13:04:51 Peripheral vascular disease 056737426 I73.89 Z89.511 Recovering well from BKA on [...] leg Adult fail ure to thrive syndrome 980154125 R62.7 PT/OT as above.Astrid tor mood and po intake.Psy ch consult prn Hypertensive disorder 38 808863 I10 bp stableCont inueamlodi pine 10 mg qdmetoprol ol succinate 100 mg qd,hydrala zine 50 mg TID.Monito r BP and labs Hyperkalemia 37672520 E8 7.5 In good control on current regimen.Co ntinue renal diet (low k)Lokelma 10 g qdsodium bicarb 650 mg BID.Monito r labs. not done this week, will reorder Chronic ki dney disease stage 4 969542219 N18.4 At baseline.C ontinue to avoid nephrotoxi c meds as able.monit or bmp for increased kcont sodium bicarbonat e bidMonitor labs.Renal f/u as planned. Type 2 kishor betes mellitus 20673025 E11.21 BS stableLast HgA1C was 7.4 in 03/2024, and 6.4 on 08/22/24.C ontinueFar xiga 10 mg qd and SSI.Monito r fingerstic ks TID and HgA1C q 3 months. Benign pro static hyperplasia 929864257 N40.0 No current sxs.Contin uetamsulos in 0.4 mg qd and finasterid e 5 mg qdMonitor urinary function. Hyperlipidemia 79280107 E78.49 Continueat orvastatin 10 mg qd and ASA 81 mg qdMonitor labs as outpt. Smoker 03405096 F17.213 continues to smokeNot interested in NRT, says he has had bad rxns.educsilvestre tate on smoking cessationC ontinue to encourage cessation. [id number] Oksana Lennon NP [address] [address] 09/14/2024 14:33:03 09/16/2024 14:16:40 Peripheral vascular disease 685872723 I73.89 Z89.511 Recovering well from BKA on [...] prn Adult fail ure to thrive syndrome 952572016 R62.7 Monitor mood and intakePsyc h consult prn Hypertensive disorder 38 956706 I10 bp stable hereContin ueamlodipi ne 10 mg qdmetoprol ol succinate 100 mg qd,hydrala zine 50 mg TID.Monito r BP and labs outpt with pcplabs ordered but not done, will attempt tomorrow again Hyperkalemia 17003195 E8 7.5 In good control on current regimen.Co ntinue renal diet (low k)Lokelma 10 g qdsodium bicarb 650 mg BID.Monito r labs. not done this week, will reorder for ed am again before dc(unclear why labs aren't done, question difficult stick? )fu with pcp Chronic ki dney disease stage 4 568942052 N18.4 At baseline.C ontinue to avoid nephrotoxi c meds as able.conts odium bicarbonat e bidMonitor labs outpt with pcpRenal f/u as planned. Type 2 kishor bettorres mellitus 46900522 E11.21 BS stableLast HgA1C was 7.4 in 03/2024, and 6.4 on 08/22/24.C ontinueFar xiga 10 mg qd and SSI.Monito r fingerstic ks TID and HgA1C q 3 months Benign pro static hyperplasia 129761260 N40.0 No current sxs.Contin uetamsulos in 0.4 mg qd and finasterid e 5 mg qdMonitor urinary function Hyperlipidemia 50819244 E78.49 Continueat orvastatin 10 mg qd and ASA 81 mg qdMonitor labs with pcp prn Smoker 42776638 F17.213 continues to smokeNot interested in NRT, says he has had bad rxns.educsilvestre tate on smoking cessationC ontinue to encourage cessation [id number] Oksana Lennon NP [address] [address] 09/21/2024 13:09:13 09/22/2024 12:24:03 Peripheral vascular disease 370786193 I73.89 Z89.511 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, but having trouble with amp emotionall y and trouble caring for himself.ov erall doing much better and healing in, incision closedCont inue fall precaution s.Monitor for safety.Con tinueXarel to 2.5 mg BID for DVT prophylaxi s.APAP 650 mg q 4 hrs prn.has corporate responsibility officer and educated on need to use it so he can get prothetic soon.will fu with bell prothetics fu in spring for further testing of left leg with vascular outpt and prn Adult fail ure to thrive syndrome 852381328 R62.7 Monitor mood and intakePsyc h consult prn Hypertensive disorder 38 809771 I10 bp stable 118/64Cont inueamlodi pine 10 mg qdmetoprol ol succinate 100 mg qd,hydrala zine 50 mg TID.Monito r BP and labs outpt with pcp Hyperkalemia 75762148 E8 7.5 In good control on current regimen.Co ntinue renal diet (low k)Lokelma 10 g qdsodium bicarb 650 mg BID.Monito r labs.fu with renal Chronic ki dney disease stage 4 873522604 N18.4 At baseline.C ontinue to avoid nephrotoxi c meds as able.conts odium bicarbonat e bidRenal f/u as planned. Type 2 kishor betes mellitus 86709453 E11.21 BS stableHgA1 C was 7.4 in 03/2024, and 6.4 on 08/22/24 improvedCo ntinueFarx iga 10 mg qd and SSI.Monito r fingerstic ks TID and HgA1C q 3 months Benign pro static hyperplasia 050583409 N40.0 No current sxs.Contin uetamsulos in 0.4 mg qd and finasterid e 5 mg qdMonitor urinary function [id number] Oksana Lennon, TANYA [facility] [address] [address] 09/22/2024 12:31:57 09/26/2024 12:28:42 Peripheral vascular disease 146096800 I73.89 Z89.511 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, but having trouble with amp emotionall y and trouble caring for himself.ov erall doing much better and healing in, incision closedCont inue fall precaution s.Monitor for safety.Con tinueXarel to 2.5 mg BID for DVT prophylaxi s.APAP 650 mg q 4 hrs prn.has corporate responsibility officer and educated on need to use it so he can get prothetic soon.will fu with bell prosthetic sfu in spring for further testing of left leg with vascular outpt and prn Adult fail ure to thrive syndrome 913635074 R62.7 Monitor mood and intakePsyc h consult prn Hypertensive disorder 38 318373 I10 stableCont inueamlodi pine 10 mg qdmetoprol ol succinate 100 mg qd,hydrala zine 50 mg TID.Monito r BP and labs outpt with pcp Hyperkalemia 56280462 E8 7.5 In good control on current regimen.Co ntinue renal diet (low k)Lokelma 10 g qdsodium bicarb 650 mg BID.Monito r labs.fu with renalfu labs cbc and bmp 09/26 Chronic ki dney disease stage 4 229811799 N18.4 At baseline.C ontinue to avoid nephrotoxi c meds as able.conts odium bicarbonat e bidRenal f/u as planned. Type 2 kishor betes mellitus 48791212 E11.21 BS stableHgA1 C was 7.4 in 03/2024, and 6.4 on 08/22/24 improvedCo ntinueFarx iga 10 mg qd and SSI.Monito r fingerstic ks TID and HgA1C q 3 months Benign pro static hyperplasia 732623924 N40.0 No current sxs.Contin uetamsulos in 0.4 mg qd and finasterid e 5 mg qdMonitor urinary function Furuncle of buttock 1243 0003 L02.32 large abcess on posterior right upper buttock likely [id number] /19start cephalexin 500 mg po q 8 hours (will decrease from q6 hr dosing due to poor renal fx)x 7 days with probioticn s wash, pat dry, and apply foam dressing to areamonito r for s/s of infectionc bc and bmp on 09/26cons ider wound consult Angioedema of lip 282406 005 T78.3XXA pt with angioedema to only [...] distress, diff swallowing , or increased swelling [id number] [facility] [address] 09/23/2024 08:41:31 09/26/2024 14:26:31 Angioedema of lip 306428183 T78.3XXA pt with angioedema to only the [...] medication s if reoccurs Peripheral vascular disease 820910959 I73.89 Z89.511 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, but having trouble with amp emotionall y and trouble caring for himself.ov erall doing much better and healing in, incision closedCont inue fall precaution s.Monitor for safety.Con tinueXarel to 2.5 mg BID for DVT prophylaxi s.APAP 650 mg q 4 hrs prn.has corporate responsibility officer and educated on need to use it so he can get prothetic soon.will fu with bell prosthetic sfu in spring for further testing of left leg with vascular outpt and prn Adult fail ure to thrive syndrome 344825679 R62.7 Monitor mood and intakePsyc h consult prn Hypertensive disorder 38 733493 I10 stableCont inueamlodi pine 10 mg qdmetoprol ol succinate 100 mg qd,hydrala zine 50 mg TID.Monito r BP and labs outpt with pcp Hyperkalemia 88951674 E8 7.5 In good control on current regimen.Co ntinue renal diet (low k)Lokelma 10 g qdsodium bicarb 650 mg BID.Monito r labs.fu with renalfu labs cbc and bmp 09/26 Chronic ki dney disease stage 4 981356964 N18.4 At baseline.C ontinue to avoid nephrotoxi c meds as able.conts odium bicarbonat e bidRenal f/u as planned. Type 2 kishor betes mellitus 96341809 E11.21 BS stableHgA1 C was 7.4 in 03/2024, and 6.4 on 08/22/24 improvedCo ntinueFarx iga 10 mg qd and SSI.Monito r fingerstic ks TID and HgA1C q 3 months Benign pro static hyperplasia 145715440 N40.0 No current sxs.Contin uetamsulos in 0.4 mg qd and finasterid e 5 mg qdMonitor urinary function Carbuncle of buttock 762 31324 L02.33 large golf ball size abcess on [...] to assess renal func and for infection [id number] Janice Mitchell MD [address] [address] 09/26/2024 19:01:26 09/27/2024 08:53:46 Carbuncle of buttock 54175068 L02.33 Improving. Continue cephalexin 500 mg q 8 hrs until 09/29 with probiotic BID.Contin ue wound care as ordered.To be seen by wound care in AM before d/c.F/U with PCP as outpt. Angioedema of lip 405233 005 T78.3XXA ResolvedFi brandon prednisone taper.Astrid tor for recurrence . Peripheral vascular disease 501670674 I73.89 Z89.511 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.Cont inue Xarelto 2.5 mg BID for DVT prophylaxi s (not sure how long he needs to be on this).Cont inue APAP 650 mg q 4 hrs prn.No longer needing Oxy.Contin ue corporate responsibility officer and f/u with prosthetis t as planned.F/ U with vascular as planned. Adult fail ure to thrive syndrome 181224035 R62.7 Much improved.F /U with PCP as outpt. Hypertensive disorder 38 688931 I10 In good control.Co ntinue amlodipine 10 mg qd, metoprolol succinate 100 mg qd, and hydralazin e 50 mg TID.F/U with PCP as outpt. Hyperkalemia 89424643 E8 7.5 Remains WNL, but sl. higher than 09/15, likely due to UMAIR.Contin ue renal diet (low k)Continue NaHCO3 as above and Lokelma 10 gms qdWill order repeat labs for 09/29 with [facility]. Chronic ki dney disease stage 4 170422748 N18.4 With sig worsening today compared to 09/15Enc raged pt to drink more fluids.Con tinue to avoid nephrotoxi c meds as able.Sole nue sodium bicarbonat e 650 mg BID.Renal f/u as planned. Type 2 kishor betes mellitus 72405290 E11.21 BS mostly in ood control since here with occ high readingHgA 1C was 7.4 in 03/2024, and 6.4 on 08/22/24 improvedCo ntinue Farxiga 10 mg qd and SSI.F/U with PCP as outpt. Benign pro static hyperplasia 877560242 N40.0 No sxs. since here.Sole nue tamsulosin 0.4 mg qd and finasterid e 5 mg qdF/U with PCP as outpt. Hyperlipidemia 88771135 E78.49 Continue atorvastat in 10 mg qd and ASA 81 mg qdMonitor labs as outpt. Smoker 02965597 F17.213 Has been smoking since here.Refus ed NRT.Contin ue to encourage cessation. [id number] ISABEL SAUNDERS, TANYA [address] [address] 09/29/2024 15:04:27 09/30/2024 12:02:02 Chronic kidney disease stage 4 774951371 N18.4 With sig worsening 09/26 compared to 09/15Enc rage fluids.Con tinue to avoid nephrotoxi c meds as able.Follo w up with Nephrology as sched.Cont inue sodium bicarbonat e 650 mg BID.CMP in am Hyperkalemia 75874892 E8 7.5 Remains WNL, but sl. higher than 09/15, likely due to UMAIR.Contin ue renal diet (low k)Continue NaHCO3 as above and Lokelma 10 gms qdWill order repeat labs for 09/30 Peripheral vascular disease 463806074 I73.89 Z89.511 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.Cont inue Xarelto 2.5 mg BID for DVT prophylaxi s (not sure how long he needs to be on this).Cont inue APAP 650 mg q 4 hrs prn.No longer needing Oxy.Contin ue corporate responsibility officer and f/u with prosthetis t as planned.F/ U with vascular as planned. Carbuncle of buttock 762 10562 L02.33 Improving. Continue cephalexin 500 mg q 8 hrs until complete, as well as probiotic BID.Contin ue wound care as ordered.To be seen by wound care in AM before d/c.F/U with PCP as outpt. Angioedema of lip 216963 005 T78.3XXA ResolvedFi brandon prednisone taper.Astrid tor for recurrence . Adult fail ure to thrive syndrome 248406042 R62.7 Much improved.F /U with PCP as outpt. Hypertensive disorder 38 716532 I10 In good control.Co ntinue amlodipine 10 mg qd, metoprolol succinate 100 mg qd, and hydralazin e 50 mg TID.F/U with PCP as outpt. Type 2 kishor betes mellitus 30229020 E11.21 BS mostly in good control since here with occ. high readingHgA 1C was 7.4 in 03/2024, and 6.4 on 08/22/24 improvedCo ntinue Farxiga 10 mgBS bid once a week and prnF/U with PCP as outpt. Benign pro static hyperplasia 143668124 N40.0 No sxs. since here.Sole nue tamsulosin 0.4 mg qd and finasterid e 5 mg qdF/U with PCP as outpt. Hyperlipidemia 58251960 E78.49 Continue atorvastat in 10 mg qd and ASA 81 mg qdMonitor labs as outpt. Smoker 00569137 F17.213 Has been smoking since here.Refus ed NRT.Contin ue to encourage cessation. [id number] Janice Mitchell MD [address] [address] 09/30/2024 14:58:21 10/03/2024 12:45:37 Chronic kidney disease stage 4 475723133 N18.4 With sig worsening on 09/26 compared to t was going to drink more fluids at home and he says he did.Contin ue to avoid nephrotoxi c meds as able.Sole nue sodium bicarbonat e 650 mg BID.Renal f/u as planned.La bs were to be rechecked today, but pt refused.Pr omises he will allow lab draw on Wednesday 10/03. Hyperkalemia 00578938 E8 7.5 Remains WNL, but was sl. higher on 09/26 than 09/15, likely due to UMAIR.Contin ue renal diet (low k)Continue NaHCO3 as above and Lokelma 10 gms qdLabs on 10/03 as above. Peripheral vascular disease 541635202 I73.89 Z89.511 Has recovered well from BKA on 07/21.Cont inue Xarelto 2.5 mg BID for DVT prophylaxi s (not sure how long he needs to be on this).Cont inue APAP 650 mg q 4 hrs prn.Contin ue corporate responsibility officer and f/u with prosthetis t as planned.F/ U with vascular as planned. Carbuncle of buttock 762 68643 L02.33 Improving per pt.Wound care note from 09/27 not scanned in to PCC yet.Contin ue cephalexin 500 mg q 8 hrs until 10/02 with probiotic BID.Contin ue wound care as ordered.F/ U with wound care weekly until healed. Angioedema of lip 918397 005 T78.3XXA ResolvedHa s completed prednisone taper.Astrid tor for recurrence . Adult fail ure to thrive syndrome [id number] R62.7 Much improved.C ontinue liquid protein 30 mg qd to help with wound healing.En courage healthy eating. Hypertensive disorder 38 748812 I10 Remains in good control.Co ntinue amlodipine 10 mg qd, metoprolol succinate 100 mg qd, and hydralazin e 50 mg TID.Monito r BP and labs. Type 2 kishor betes mellitus 05779489 E11.21 Very good since return, all <150.HgA1C was 7.4 in 03/2024, and 6.4 on 08/22/24.C ontinue Farxiga 10 mg qd and SSI.If sugars remain <200 consistent ly can change TID fingerstic ks to qAM. Benign pro static hyperplasia 065653475 N40.0 No sxs. since here.Sole nue tamsulosin 0.4 mg qd and finasterid e 5 mg qdMonitor urinary function. Hyperlipidemia 11415465 E78.49 Continue atorvastat in 10 mg qd and ASA 81 mg qdMonitor labs yearly. Smoker [id number] F17.213 Continues to smoke.Cont inues to refuse NRT.Contin ue to encourage cessation. [id number] Oksana Lennon NP [place] [address] [place] [address] 10/13/2024 10:10:33 10/14/2024 10:47:39 Chronic kidney disease stage 4 [id number] N18.4 With sig worsening on 09/26 compared to t was going to drink more fluids at home and he says he did.Contin ueavoid nephrotoxi c meds as able.sodiu m bicarbonat e 650 mg BID.Renal f/u as planned.La bs ordered for bmp and cbc on 10/19 on thu x 2labs as above Hyperkalemia 52262759 E8 7.5 Remains WNL, but was sl. 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 Carbuncle of buttock [phone] 30530 L02.33 Improving per pt.mostly healedCont inuecomple lea cephalexin 500 mg q 8 hrs until 10/02 with probiotic BID.Contin ue wound care as ordered.F/ U with wound care weekly until healed.ratna l order zinc cream to right upper abcess buttock qd until healedmoni tor for s/s of infection Adult fail ure to thrive syndrome 567629558 R62.7 Much improved.E ncourage healthy eating. Hypertensive disorder 38 317722 I10 Remains in good control.Co ntinueamlo dipine 10 mg qd, metoprolol succinate 100 mg qd, and hydralazin e 50 mg TID.Monito r BP and labs. Type 2 kishor bettorres mellitus 77162291 E11.21 Very good since return, all <150.HgA1C was 7.4 in 03/2024, and 6.4 on 08/22/24.C ontinue Farxiga 10 mg qd and SSI.If sugars remain <200 consistent ly can change TID fingerstic ks to qAM. Benign pro static hyperplasia 084965679 N40.0 No sxs. since here.Sole nuetamsulo sin 0.4 mg qd and finasterid e 5 mg qdMonitor urinary function. Hyperlipidemia 93644228 E78.49 Continueat orvastatin 10 mg qd and ASA 81 mg qdMonitor labs yearly. Smoker 97628613 F17.213 Continues to smoke.spen t 3-10 min on education and NRT therapy, he is willing to try nicorette gumnicoret te gum 4 mg po q 3 hours prn cravingsCo ntinue to encourage cessation. [id number] Oksana Lennon NP [address] [address] 10/21/2024 09:04:51 10/24/2024 16:33:36 Peripheral vascular disease 718009310 I73.89 Z89.511 Has recovered well from r BKA on 07/21.plan for prosthetic on 10/21 per pt.Continu eXarelto 2.5 mg BID for DVT prophylaxi s (not sure how long he needs to be on this).APAP 650 mg q 4 hrs prn.shrink er and f/u with prosthetis t as planned.F/ U with vascular as planned outpt in the spring Chronic dney disease stage 4 922310070 N18.4 With sig worsening on 09/26 compared to t was going to drink more fluids at home and he says he did.Contin ueavoid nephrotoxi c meds as able.sodiu m bicarbonat e 650 mg BID.Renal f/u as planned.la bs as above, and reordered Smoker [id number] F17.213 Continues to smoke.jm rette gum 4 mg po q 3 hours prn cravingsCo ntinue to encourage cessation. Carbuncle of buttock 762 04838 L02.33 resolvedco mpleted cephalexin 500 mg q 8 hrs until 10/02 with probiotic BID..will order zinc cream to right upper abcess buttock qd until healedmoni tor for s/s of infection Hyperkalemia 96161277 E8 7.5 Remains WNL, but was sl. higher on 09/26 than 09/15, likely due to UMAIR.Contin uerenal diet (low k)NaHCO3 as aboveLokel ma 10 gms qdbmp and cbc weekly for one more lab Adult fail ure to thrive syndrome 996072849 R62.7 Much improved and seems to be doing better with plan for BKA soonEncour age healthy eating. Hypertensive disorder 38 632266 I10 Remains in good control.Co ntinueamlo dipine 10 mg qdmetoprol ol succinate 100 mg qdhydralaz ine 50 mg TID.Monito r BP and labs. Type 2 kishor betes mellitus 38769080 E11.21 Very good since return, all <150.HgA1C was 7.4 in 03/2024, and 6.4 on 08/22/24.C ontinue Farxiga 10 mg qd and SSI.If sugars remain <200 consistent ly can change TID fingerstic ks to qAM. Benign pro static hyperplasia 918757879 N40.0 No sxs. since here.Sole nuetamsulo sin 0.4 mg qd and finasterid e 5 mg qdMonitor urinary function. Hyperlipidemia 03458651 E78.49 Continueat orvastatin 10 mg qd and ASA 81 mg qdMonitor labs yearly. Angioedema of lip 733605 005 T78.3XXA ResolvedHa s completed prednisone taper.Astrid tor for recurrence . [id number] [facility] [address] [place] [address] 11/11/2024 08:19:31 11/15/2024 13:47:34 Peripheral vascular disease 466220578 I73.89 Z89.511 Has recovered well from r BKA on 07/21/24.H e plans to discharge despite prosthetic not fitting well and fu with [employer] on Thursday.He does not want to stay [...] the spring Chronic dney disease stage 4 091889741 N18.4 With CKD at baselineCo ntinueavoi d nephrotoxi c meds as able.sodiu m bicarbonat e 650 mg BID.Renal f/u as planned ouitptfu with pcp outpt and renal outpt Smoker 09973220 F17.213 Continues to smoke.jm rette gum 4 mg po q 3 hours prn cravingsCo ntinue to encourage cessation outpt Carbuncle of buttock 762 42775 L02.33 resolvedco mpleted cephalexin 500 mg q 8 hrs until 10/02 with probiotic BID..will order zinc cream to right upper abcess buttock qd until healedmoni tor for s/s of infection outpt with pcp Hyperkalemia 38304785 E8 7.5 Remains WNLContinu erenal diet (low k)NaHCO3 as aboveLokel ma 10 gms qdlabs outpt with pcp Adult fail ure to thrive syndrome 210637985 R62.7 Much improved and seems to be doing better with plan for BKA soonEncour age healthy eating outpt Hypertensive disorder 38 155567 I10 Remains in good control, bp high this am but has not got his bp meds yet todayConti nueamlodip ine 10 mg qdmetoprol ol succinate 100 mg qdhydralaz ine 50 mg TID.Monito r BP and labs outpt with pcp Type 2 kishor betes mellitus 67650578 E11.21 Very good since return, mostly <150.HgA1C was 7.4 in 03/2024, and 6.4 on 08/22/24.C ontinueFar xiga 10 mg qd and SSI.If sugars remain <200 consistent ly can change TID fingerstic ks to qAM.monito r outpt with pcp outpt Benign pro static hyperplasia 259758829 N40.0 No sxs. since here.Sole nuetamsulo sin 0.4 mg qdfinaster paula 5 mg qdMonitor urinary function outpt with pcp Hyperlipidemia 15550609 E78.49 Continueat orvastatin 10 mg qdASA 81 mg qdMonitor labs with pcp prn Angioedema of lip 621693 005 T78.3XXA Resolvedwa s never on sarita [...] Miles Member ID Guarantor Name 11/11/2024 1 [facility] - DOS ON OR AFTER 2023 - MEDICARE ADVANTAGE [place] & [place] (MEDICARE REPLACEMENT/ADV ANTAGE - PPO) Renato Hinson [id number] Renato Hinson
[2025-05-02 14:02] LABS: Anion Gap 14 (12-20); Blood Urea Nitrogen 56 mg/dL (9-16); Carbon Dioxide 18 mmol/L (22-29); Chloride 114 mmol/L (96-108); Estimated Glomerular Filt Rate 7; Iron 30 mcg/dL (45-160); Percent Iron Saturation 21 % (15-50); Potassium 4.6 mmol/L (3.3-5.1); Sodium 141 mmol/L (135-145); Total Iron Binding Capacity 143 mcg/dL (228-428); Unsaturated Iron Binding 113 ug/dL
[2025-05-02 14:09] LABS: Ferritin 185 ng/mL (20-250)
== END 2025-05-02 12:30 | disposition home or self-care (01) ==
LOC: HO.LAB 12:29
PROVIDERS: PCP Internal Medicine; Visit Provider Internal Medicine Nephrology
DX: N17.9 Acute kidney failure, unspecified (principal); N18.9 Chronic kidney disease, unspecified
CPT/HCPCS: 36415; 80051; 82565; 82728; 83540; 84520; 85025

== ENCOUNTER 2025-05-05 11:33 | Outpatient (AMB) | payer OTHER, SELFPAY ==
--- OUTSIDE RECORDS SUMMARY | 2025-05-05 11:36 | XMS_ITS | Encounter Summary ---
Author Organization [facility] Address [address] [place] [address] Care Team Providers Care Director Occupational Name Role Phone Travis Au MD Primary Care Provider [phone] Encounter Details Date Type Department Care Team (Latest Contact Info) Description 11/01/2024 Lab Requisition [facility] - Main Lab [address] [place] [address] Brandon Mckeon MD [address] [place] [address] Type 2 diabetes mellitus without [...] LAB CHEMISTRY METHOD 11/02/2024 12:37 PM EST [facility] Potassium 5.1 3.5 - 5.5 mmol/L LAB CHEMISTRY METHOD 11/02/2024 12:37 PM [facility] Chloride 107 96 - 110 mmol/L LAB CHEMISTRY METHOD 11/02/2024 12:37 PM [facility] CO2 21 21 - 32 mmol/L LAB CHEMISTRY METHOD 11/02/2024 12:37 PM [facility] Anion Gap 6 3 - 11 LAB CHEMISTRY METHOD 11/02/2024 12:37 PM [facility] Glucose 93 70 - 100 mg/dL LAB CHEMISTRY METHOD 11/02/2024 12:37 PM [facility] BUN 54(H) 5 - 25 mg/dL LAB CHEMISTRY METHOD 11/02/2024 12:37 PM [facility] Creatinine 3.63(H) 0.70 - 1.30 mg/dL LAB CHEMISTRY METHOD 11/02/2024 12:37 PM [facility] eGFR 18(L) >=60 mL/min/1. 73m2 LAB CHEMISTRY METHOD 11/02/2024 12:37 PM [facility] Comment:Calculation based on the Chronic Kidney Disease Epidemiology Collaboration (CKD-EPI) equation refit without adjustment for race. BUN/Creatinine Ratio 14.9 LAB CHEMISTRY METHOD 11/02/2024 12:37 PM [facility] Calcium 8.5 8.5 - 10.5 mg/dL LAB CHEMISTRY METHOD 11/02/2024 12:37 PM [facility] Blood Venous blood specimen / Unknown Venipuncture / Unknown 11/02/2024 7:04 AM EST 11/02/2024 11:13 AM EST us Brandon Mckeon MD LAB BLOOD ORDERABLES Final Resu lt [facility] [address] [place] [address], [place] [phone] * (ABNORMAL) Complete blood count (11/02/2024 7:04 AM EST) [facility] WBC 8.5 4.8 - 10.8 K/mcL LAB HEMETOLOGY METHOD 11/02/2024 12:23 PM [facility] RBC 3.10(L) 4.50 - 5.50 M/mcL LAB HEMETOLOGY METHOD 11/02/2024 12:23 PM [facility] Hemoglobin 8.8(L) 13.5 - 17.5 g/dL LAB HEMETOLOGY METHOD 11/02/2024 12:23 PM [facility] Hematocrit 28.2(L) 42.0 - 54.0 % LAB HEMETOLOGY METHOD 11/02/2024 12:23 PM [facility] MCV 91.9 79.0 - 98.0 FL LAB HEMETOLOGY METHOD 11/02/2024 12:23 PM [facility] MCH 28.7 27.0 - 32.0 pcg LAB HEMETOLOGY METHOD 11/02/2024 12:23 PM [facility] MCHC 31.2(L) 32.0 - 37.0 g/dL LAB HEMETOLOGY METHOD 11/02/2024 12:23 PM [facility] RDW 13.6 11.0 - 15.0 % LAB HEMETOLOGY METHOD 11/02/2024 12:23 PM [facility] Platelets 382 130 - 400 K/mcL LAB HEMETOLOGY METHOD 11/02/2024 12:23 PM [facility] MPV 10.3 7.0 - 11.0 FL LAB HEMETOLOGY METHOD 11/02/2024 12:23 PM [facility] NRBC 0.0 <1.0 % LAB HEMETOLOGY METHOD 11/02/2024 12:23 PM [facility] NRBC Absolute 0.00 <0.10 K/mcL LAB HEMETOLOGY METHOD 11/02/2024 12:23 PM EST [facility] Blood Venous blood specimen / Unknown Venipuncture / Unknown 11/02/2024 7:04 AM EST 11/02/2024 11:13 AM EST us Brandon Mckeon MD LAB BLOOD ORDERABLES Final Resu lt [facility] [address] [place] [address], documented in this encounter Visit Diagnoses Diagnosis Type 2 diabetes mellitus without complications (CMS/HCC V24, CMS/HCC V28) documented in this encounter Care Teams Director Occupational Relationship Specialty Start Date End Date Travis Au MD [address] [place] [address], [phone] PCP - General Family Medicine 08/22/24 documented as of this encounter
--- OUTSIDE RECORDS SUMMARY | 2025-05-05 11:36 | XMS_ITS | Clinical Summary ---
Author Organization [facility] Address [address] [facility] [address] [place] [address] Phone Care Team Providers Care Mechanic Chief Name Role Phone Michelle Long MD Primary Care Provider [phone] Allergies Active Allergy Reactions Criticality Noted Date [...] Telephone [facility] [address] [place] [address] Sydney Rosales from Last 3 Months Family [...] 49 Years) Discontinued 07/01/2010 Insurance [address] [place] [id number] [facility] ([id number]) MAHESH MACIAS [id number] [facility] Dual SNP ([id number]) Care Teams Mechanic Chief Relationship Specialty Start Date End Date Michelle Long MD [address] [place], [place] PCP - General Internal Medicine 10/06/23
--- NOTE | 2025-05-05 11:51 | HO.NEPHOV ---
Vital Signs 05/05/25 11:52 Height 6 ft BP 126/70 Blood Pressure Location Rt brachial Intake Visit Reasons: 3mon Retacrit follow-up w/labs Conf Blade Balancer Required: No Accompanied by: Significant Other Allergies morphine Allergy (Verified 05/05/25 11:51) Hallucinations bupropion Adverse Reaction (Verified 05/05/25 11:51) Hallucinations HPI Comments Details: 65 year male with COPD, chronic respiratory failure on O2, WENDY s/p right BKA, HTN, a AFib on Xarelto, type 2 diabetes, just recently s/p left great toe amputation with CKD 5 is here for F/U. He has H/O sepsis secondary to acute osteomyelitis/septic arthritis L foot, lytic changes at the area suggestive of OM with positive cultures for MRSA,echo no vegetations; repeat blood culture 02/21 1/2 +, repeat blood cultures 02/23 was negative at 48 hrs. He had ATN during his hospitalization but later in [facility] he was thought to have progression of his renal disease. He denies uremic symptoms [facility] Medical History (Updated 05/05/25 @ 13:40 by Donell Ruiz MD) Anemia in chronic kidney disease (CKD) Hypertension CKD (chronic kidney disease) stage 4, GFR 15-29 ml/min Fluid overload Acute and chronic respiratory failure Sepsis Acute dehydration New onset of congestive heart failure Pneumonia Urinary urgency Urinary tract infection Urinary hesitancy Tubular adenoma of colon Smoker Seborrheic keratoses SND (sensorineural deafness) Right BKA infection Peripheral vascular disease WENDY (obstructive sleep apnea) Microalbuminuria Lung nodule seen on imaging study Lightheadedness Latent tuberculosis LVH (left ventricular hypertrophy) Abnormal PFTs Hyponatremia Hypertensive retinopathy of both eyes Hyperkalemia Hepatitis C Hearing loss of both ears Erectile dysfunction Cataract CKD (chronic kidney disease) Bladder wall thickening BPH (benign prostatic hyperplasia) Anticoagulated Anemia Peripheral neuropathy Diabetes mellitus, type II CVA (cerebral vascular accident) Adrenal nodule Kidney cysts Surgical History Hx of right BKA Family History Brother Diabetes Mother Diabetes Father Diabetes Social History Household Members: Spouse Housing: Apartment Do you presently have visiting nurse or other home services: Yes Alcohol intake: never Patient Tobacco Use Status: Former Tobacco user Tobacco use type: Cigarette e-Cigarette/Vaping Use: Former Use service: No Review of Systems Const All systems reviewed & are unremarkable except as noted in HPI and below Physical Exam Vital Signs: Last Vital Signs BP 126/70 05/05/25 11:52 Const General: comfortable and no acute distress Orientation/consciousness: patient oriented x3 HEENT Head: Yes normocephalic Mouth: Normal oral and palatal mucosa present Eyes EOM: EOMs intact bilaterally Neck Neck: Yes supple Resp Auscultation: clear to auscultation bilaterally Cardio Jugular venous distension: no JVD Rate: regular rate GI Palpation (GI): Soft to palpation Auscultation: normal bowel sounds General: Yes no CVA tenderness Back/Spine/Pelvis Back: no CVA tenderness Skin General skin exam: no rashes or lesions noted Neuro General: patient oriented x3 and moves all extremities Results Reviewed Nephrology Results: Hgb, (14.0-18.0) 10.8 g/dl L 05/02/25 WBC, (4.8-10.8) 6.0 X10*3/uL 05/02/25 Plt Count, (160-400) 252 X10*3/uL 05/02/25 Sodium, (135-145) 141 mmol/L 05/02/25 Potassium, (3.3-5.1) 4.6 mmol/L 05/02/25 Chloride, (96-108) 114 mmol/L H 05/02/25 Carbon Dioxide, (22-29) 18 mmol/L L 05/02/25 BUN, (9-16) 56 mg/dL H 05/02/25 Creatinine, (0.5-1.4) 7.47 mg/dL H* 05/02/25 Calcium, (8.4-10.2) 8.3 mg/dL L 04/29/25 Phosphorus, (2.7-4.5) 5.5 mg/dL H 04/25/25 PTH Intact, (8.7-77.1) 342.7 pg/mL H 04/20/25 Urine Protein, (Neg-Trace) >=1000 (4+) mg/dL H 04/29/25 Renal US 02/20/25 Assessment & Plan Assessment & Plan (1) CKD (chronic kidney disease) stage 5, GFR less than 15 ml/min: Code(s): N18.5 - Chronic kidney disease, stage 5 Category: Medical (2) Secondary hyperparathyroidism (of renal origin): Code(s): N25.81 - Secondary hyperparathyroidism of renal origin Category: Medical (3) Vitamin D deficiency: Code(s): E55.9 - Vitamin D deficiency, unspecified Category: Medical (4) Hypertension: Code(s): I10 - Essential (primary) hypertension Category: Medical Qualifiers: Hypertension type: renovascular hypertension Qualified Code(s): I15.0 - Renovascular hypertension (5) Anemia in chronic kidney disease (CKD): Code(s): N18.9 - Chronic kidney disease, unspecified; D63.1 - Anemia in chronic kidney disease Category: Medical Qualifiers: Chronic kidney disease stage: stage 4 (GFR 15-29) Qualified Code(s): N18.4 - Chronic kidney disease, stage 4 (severe); D63.1 - Anemia in chronic kidney disease Plan Mr Hinson has advanced chronic kidney disease from diabetes, hypertension as well as vascular disease. His renal disease has been progressive but recently developed UMAIR on CKD due to ATN with renal disease progression. He is aware that he needs to go on dialysis . His blood pressure is at goal. His volume status is optimal. He is tolerating his current medications. He should remain on low potassium diet. I shall initiate him on activated vitamin-D after replacing vitamin-D. Currently he does not have any uremic symptoms. I shall refer him for AVF/TX eval. All his questions were answered. F/U given Orders: Orders Blood Urea Nitrogen 3 Weeks E55.9 - Vitamin D deficiency, unspecified, I15.0 - Renovascular hypertension, N18.5 - Chronic kidney disease, stage 5, N25.81 - Secondary hyperparathyroidism of renal origin Calcium 3 Weeks E55.9 - Vitamin D deficiency, unspecified, I15.0 - Renovascular hypertension, N18.5 - Chronic kidney disease, stage 5, N25.81 - Secondary hyperparathyroidism of renal origin Complete Blood Count Auto Diff 3 Weeks E55.9 - Vitamin D deficiency, unspecified, I15.0 - Renovascular hypertension, N18.5 - Chronic kidney disease, stage 5, N25.81 - Secondary hyperparathyroidism of renal origin Creatinine 3 Weeks E55.9 - Vitamin D deficiency, unspecified, I15.0 - Renovascular hypertension, N18.5 - Chronic kidney disease, stage 5, N25.81 - Secondary hyperparathyroidism of renal origin Electrolytes 3 Weeks E55.9 - Vitamin D deficiency, unspecified, I15.0 - Renovascular hypertension, N18.5 - Chronic kidney disease, stage 5, N25.81 - Secondary hyperparathyroidism of renal origin Coding Level of Care Code Est Pt Level 4 (40162) Diagnoses CKD (chronic kidney disease) stage 5, GFR less than 15 ml/min N18.5 Secondary hyperparathyroidism (of renal origin) N25.81 Vitamin D deficiency E55.9 Renovascular hypertension I15.0 Hypertension type: renovascular hypertension Anemia in stage 4 chronic kidney disease N18.4; D63.1 Chronic kidney disease stage: stage 4 (GFR 15-29)
[2025-05-05 11:52] VITALS: BP 126/70
== END 2025-05-05 12:21 | disposition home or self-care (01) ==
LOC: HO.HKA 11:34
PROVIDERS: PCP Internal Medicine; Visit Provider Internal Medicine Nephrology
DX: N18.5 Chronic kidney disease, stage 5 (principal); N25.81 Secondary hyperparathyroidism of renal origin; E55.9 Vitamin D deficiency, unspecified; I15.0 Renovascular hypertension; N18.4 Chronic kidney disease, stage 4 (severe); D63.1 Anemia in chronic kidney disease
CPT/HCPCS: 99214

== ENCOUNTER → 2025-05-05 11:33 | Outpatient (BNVA) | payer OTHER, SELFPAY | PROVIDERS: PCP Internal Medicine; Visit Provider Internal Medicine Nephrology | DX: N18.5 Chronic kidney disease, stage 5 (principal); N25.81 Secondary hyperparathyroidism of renal origin; E55.9 Vitamin D deficiency, unspecified; I15.0 Renovascular hypertension; D63.1 Anemia in chronic kidney disease | CPT/HCPCS: 99212 ==

== ENCOUNTER 2025-05-22 09:22 | Outpatient (REF) | payer OTHER, SELFPAY ==
[2025-05-22 09:39] LABS: MANUAL DIFF FLAG NO
--- OUTSIDE RECORDS SUMMARY | 2025-05-22 09:53 | XMS_ITS | Clinical Summary ---
Author Organization [facility] Address [address] [facility] [address] [place] [address] Phone Care Team Providers Care Industrial Maintenance Repairer Name Role Phone Michelle Long MD Primary Care Provider [phone] Allergies Active Allergy Reactions Criticality Noted Date [...] Telephone [facility] [address] [place] [address] Sydney Rosales from Last 3 Months Family [...] to 49 Years) Discontinued 07/01/2010 Insurance [address] [place] [id number] [facility] ([id number]) MAHESH MACIAS [phone] [facility] Dual SNP ([id number]) Care Teams Industrial Maintenance Repairer Relationship Specialty Start Date End Date Michelle Long MD [address] [place], [place] PCP - General Internal Medicine 10/06/23
--- OUTSIDE RECORDS SUMMARY | 2025-05-22 09:53 | XMS_ITS | Encounter Summary ---
Author Organization [facility] Address [address] [place] [address] Care Team Providers Care Automotive Generator Repairer Name Role Phone Travis Au MD Primary Care Provider [phone] Encounter Details Date Type Department Care Team (Latest Contact Info) Description 11/01/2024 Lab Requisition [facility] - Main Lab [address] [place] [address] Brandon Mckeon MD [address] [place] [address] Type 2 diabetes mellitus without [...] LAB CHEMISTRY METHOD 11/02/2024 12:37 PM EST [facility] Potassium 5.1 3.5 - 5.5 mmol/L LAB CHEMISTRY METHOD 11/02/2024 12:[address] [facility] Chloride 107 96 - 110 mmol/L LAB CHEMISTRY METHOD 11/02/2024 12:[address] [facility] CO2 21 21 - 32 mmol/L LAB CHEMISTRY METHOD 11/02/2024 12:[address] [facility] Anion Gap 6 3 - 11 LAB CHEMISTRY METHOD 11/02/2024 12:[address] [facility] Glucose 93 70 - 100 mg/dL LAB CHEMISTRY METHOD 11/02/2024 12:[address] [facility] BUN 54(H) 5 - 25 mg/dL LAB CHEMISTRY METHOD 11/02/2024 12:[address] [facility] Creatinine 3.63(H) 0.70 - 1.30 mg/dL LAB CHEMISTRY METHOD 11/02/2024 12:[address] [facility] eGFR 18(L) >=60 mL/min/1. 73m2 LAB CHEMISTRY METHOD 11/02/2024 12:[address] [facility] Comment:Calculation based on the Chronic Kidney Disease Epidemiology Collaboration (CKD-EPI) equation refit without adjustment for race. BUN/Creatinine Ratio 14.9 LAB CHEMISTRY METHOD 11/02/2024 12:[address] [facility] Calcium 8.5 8.5 - 10.5 mg/dL LAB CHEMISTRY METHOD 11/02/2024 12:[address] [facility] Blood Venous blood specimen / Unknown Venipuncture / Unknown 11/02/2024 7:04 AM EST 11/02/2024 11:13 AM EST us Brandon Mckeon MD LAB BLOOD ORDERABLES Final Resu lt [facility] [address] [place] [address], [place] [phone] * (ABNORMAL) Complete blood count (11/02/2024 7:04 AM EST) [facility] WBC 8.5 4.8 - 10.8 K/mcL LAB HEMETOLOGY METHOD 11/02/2024 12:[address] [facility] RBC 3.10(L) 4.50 - 5.50 M/mcL LAB HEMETOLOGY METHOD 11/02/2024 12:[address] [facility] Hemoglobin 8.8(L) 13.5 - 17.5 g/dL LAB HEMETOLOGY METHOD 11/02/2024 12:[address] [facility] Hematocrit 28.2(L) 42.0 - 54.0 % LAB HEMETOLOGY METHOD 11/02/2024 12:[address] [facility] MCV 91.9 79.0 - 98.0 FL LAB HEMETOLOGY METHOD 11/02/2024 12:[address] [facility] MCH 28.7 27.0 - 32.0 pcg LAB HEMETOLOGY METHOD 11/02/2024 12:[address] [facility] MCHC 31.2(L) 32.0 - 37.0 g/dL LAB HEMETOLOGY METHOD 11/02/2024 12:[address] [facility] RDW 13.6 11.0 - 15.0 % LAB HEMETOLOGY METHOD 11/02/2024 12:[address] [facility] Platelets 382 130 - 400 K/mcL LAB HEMETOLOGY METHOD 11/02/2024 12:[address] [facility] MPV 10.3 7.0 - 11.0 FL LAB HEMETOLOGY METHOD 11/02/2024 12:[address] [facility] NRBC 0.0 <1.0 % LAB HEMETOLOGY METHOD 11/02/2024 12:[address] [facility] NRBC Absolute 0.00 <0.10 K/mcL LAB HEMETOLOGY METHOD 11/02/2024 12:23 PM EST [facility] Blood Venous blood specimen / Unknown Venipuncture / Unknown 11/02/2024 7:04 AM EST 11/02/2024 11:13 AM EST us Brandon Mckeon MD LAB BLOOD ORDERABLES Final Resu lt [facility] [address] [place] [address], documented in this encounter Visit Diagnoses Diagnosis Type 2 diabetes mellitus without complications (CMS/HCC V24, CMS/HCC V28) documented in this encounter Care Teams Automotive Generator Repairer Relationship Specialty Start Date End Date Travis Au MD [address] [place] [address], [phone] PCP - General Family Medicine 08/22/24 documented as of this encounter
[2025-05-22 10:13] LABS: Hematocrit 35.2 % (42.0-52.0); Hemoglobin 11.3 g/dl (14.0-18.0); Imm Gran Abs Auto 0.05 X10*3/uL (0.00-0.03); Imm Gran Pct Auto 0.7 % (0.0-0.4); Lymphocytes Absolute Auto 1.7 X10*3/uL (1.2-4.9); Mean Corpuscular HGB Conc 32.1 g/dl (31.0-36.0); Mean Corpuscular Hemoglobin 28.7 pg (27.0-33.0); Mean Corpuscular Volume 89.3 fL (80.0-98.0); NRBC Abs Auto 0.000 X10*3/uL (0.0-0.012); NRBC Pct Auto 0.0 /100WBC (0.0-0.2); Platelet Count 245 X10*3/uL (160-400); Red Blood Count 3.94 X10*6/uL (4.60-5.80); White Blood Count 7.7 X10*3/uL (4.8-10.8)
[2025-05-22 11:09] LABS: Anion Gap 16 (12-20); Blood Urea Nitrogen 78 mg/dL (9-16); Calcium 8.1 mg/dL (8.4-10.2); Carbon Dioxide 15 mmol/L (22-29); Chloride 110 mmol/L (96-108); Estimated Glomerular Filt Rate 7; Potassium 4.4 mmol/L (3.3-5.1); Sodium 137 mmol/L (135-145)
== END 2025-05-22 09:23 | disposition home or self-care (01) ==
LOC: HO.LAB 09:22
PROVIDERS: PCP Internal Medicine; Visit Provider Internal Medicine Nephrology
DX: I13.2 Hypertensive heart and chronic kidney disease with heart failure and with stage 5 chronic kidney disease, or end stage renal disease (principal); N18.5 Chronic kidney disease, stage 5; I50.9 Heart failure, unspecified; I49.1 Atrial premature depolarization; I42.9 Cardiomyopathy, unspecified; I15.0 Renovascular hypertension; D63.1 Anemia in chronic kidney disease; N25.81 Secondary hyperparathyroidism of renal origin; E55.9 Vitamin D deficiency, unspecified; Z79.4 Long term (current) use of insulin; Z79.82 Long term (current) use of aspirin; Z79.899 Other long term (current) drug therapy; Z09 Encounter for follow-up examination after completed treatment for conditions other than malignant neoplasm
CPT/HCPCS: 36415; 80051; 82310; 82565; 84520; 85025; 99212

== ENCOUNTER 2025-05-22 13:09 | Outpatient (AMB) | payer OTHER, SELFPAY ==
[2025-05-22 13:12] VITALS: BP 100/52; PULSE 67
--- NOTE | 2025-05-22 13:12 | MHC.OFFVIS ---
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 blood-glucose meter (FreeStyle Lite Meter kit) As Directed dapagliflozin propanediol (Farxiga) 10 mg PO DAILY finasteride 5 mg PO DAILY furosemide (Lasix) 20 mg PO DAILY hydralazine 50 mg PO TID insulin lispro (Humalog KwikPen (U-100) Insulin) Blood Sugar: <150 - 0 units 151-200 - 2 units 201-250 - 4 units 251-300 - 6 units 301-350 - 8 units >350 - 10 units lancets (FreeStyle Lancets) Test four times a day or as directed. metoprolol succinate ER 100 mg PO DAILY pen needle, diabetic Use four times a day or as directed. rivaroxaban (Xarelto) 2.5 mg PO BID sodium bicarbonate 650 mg PO TID sodium zirconium cyclosilicate (Lokelma) 10 grams PO .twice weekly sodium zirconium cyclosilicate (Lokelma) 10 grams PO DAILY tamsulosin 0.4 mg PO DAILY umeclidinium 62.5 mcg/actuation (Incruse Ellipta) 1 inh inhalation DAILY HPI HPI 2 mth f/up testing: Details: Renato is a 65-year-old male with past medical history of diabetes, hyperlipidemia, CKD, COPD, right BKA, left great toe recent amputation, newer finding of Congestive heart failure, cardiomyopathy, chronic kidney disease who was recently admitted with anemia and found to have elevated troponins, acute on chronic kidney disease. Plan was for outpatient stress test. He now presents for follow-up. Today he presents with his significant other who does most of the talking. She states patient has been mostly resting in bed and watching TV. He has not been participating in his care as much as he should be. She is talking about having him go to a rehab facility for strengthening. He denies having depression. He denies chest discomfort at rest or during activity. He will have some shortness of breath with exertion. No heart palpitations, lightheadedness, presyncope, syncope, falls. No PND, orthopnea. He does have left lower leg swelling. He still has a dressing on his right foot but tells me that the wound is healing well. He is able to weight bear and has an orthopedic boot in place. He is wearing his prosthetic on his right lower extremity. He is currently sitting in a wheelchair. Significant other has to encourage him to take his medications and eat properly. He follows closely with Dr. Ruiz for Nephrology. [facility] Medical History Anemia in chronic kidney disease (CKD) Hypertension CKD (chronic kidney disease) stage 4, GFR 15-29 ml/min Fluid overload Acute and chronic respiratory failure Sepsis Acute dehydration New onset of congestive heart failure Pneumonia Urinary urgency Urinary tract infection Urinary hesitancy Tubular adenoma of colon Smoker Seborrheic keratoses SND (sensorineural deafness) Right BKA infection Peripheral vascular disease WENDY (obstructive sleep apnea) Microalbuminuria Lung nodule seen on imaging study Lightheadedness Latent tuberculosis LVH (left ventricular hypertrophy) Abnormal PFTs Hyponatremia Hypertensive retinopathy of both eyes Hyperkalemia Hepatitis C Hearing loss of both ears Erectile dysfunction Cataract CKD (chronic kidney disease) Bladder wall thickening BPH (benign prostatic hyperplasia) Anticoagulated Anemia Peripheral neuropathy Diabetes mellitus, type II CVA (cerebral vascular accident) Adrenal nodule Kidney cysts Surgical History Hx of right BKA Family History Brother Diabetes Mother Diabetes Father Diabetes Social History Household Members: Spouse Housing: Apartment Do you presently have visiting nurse or other home services: Yes Alcohol intake: never Patient Tobacco Use Status: Former Tobacco user Tobacco use type: Cigarette e-Cigarette/Vaping Use: Former Use service: No Review of Systems Const All systems reviewed & are unremarkable except as noted in HPI and below Reports lethargy ENT Denies dizziness Card Denies chest pain, Denies chest pain at rest, Denies chest pain with activity, Denies rapid heart rate, Denies pedal edema, Denies edema, Denies leg edema, Denies lightheadedness, Denies palpitations, Denies dyspnea, Reports dyspnea on exertion and Denies orthopnea Resp Denies cough, Denies dyspnea and Reports dyspnea on exertion GI Denies hematochezia and Denies change in stool character Musc Details: Right BKA with prosthetic on. Left foot with dressing and orthopedic boot. Sitting in wheelchair Reports abnormal gait, Denies limited range of motion, Denies muscle cramps, Reports muscle weakness, Denies numbness, Denies radiating pain into limb, Denies stiffness and Denies tingling Neuro Reports abnormal gait, Denies dizziness, Denies numbness and Denies tingling Endo Denies palpitations Physical Exam Vital Signs: Last Vital Signs Pulse 67 05/22/25 13:12 BP 100/52 L 05/22/25 13:12 Const Other: sitting in wheelchair, flat affect General: cooperative, comfortable and no acute distress Orientation/consciousness: patient oriented x3 Neck Neck: Yes normal visual inspection Resp Effort & Inspection: normal respiratory effort Auscultation: clear to auscultation bilaterally, no rales, no rhonchi and no wheezes Cardio Jugular venous distension: no JVD Rate: regular rate Rhythm: regular rhythm Heart sounds: S1 normal heart sound present, S2 normal heart sound present, no murmurs and no rubs Neuro General: patient oriented x3 Extrem Other: right BKA. left foot with dressing and ortho boot General: No no pedal edema Psych Appearance: grossly normal Mental Status: mental status grossly normal Speech and movement: Normal speech and movement present Assessment & Plan Assessment & Plan (1) New onset of congestive heart failure: Code(s): I50.9 - Heart failure, unspecified Category: Medical Plan: New onset Congestive heart failure noted during February 2025 hospitalization with acute on chronic respiratory failure/COPD. He had underlying CKD,was managed with IV diuretics and creatinine kennedy to as high as 9.63. It was down to 8.72 on discharge. Diuretics were held and he is following with Dr. Sampson for Nephrology. His echocardiogram did show EF 40-45%, moderate LVH, abnormal diastolic function, elevated filling pressures. He did have readmission with anemia, NSTEMI and repeat echocardiogram showed EF 35-40%. During that admission he was restarted on Lasix 20 mg daily. On exam today he has mild edema in his left lower extremity but otherwise does not appear fluid overloaded. His blood pressure is low and he is on amlodipine. Will reduce dose from 10 mg daily down to 5 mg daily which should help blood pressure and may help his edema. Signs and symptoms of heart failure reviewed with him. He will need ischemic eval and current condition seems stable enough for nuclear stress test. Labs done today shows hematocrit 35.2. Will order a pharmacological nuclear stress test to evaluate for ischemia. Signs and symptoms of heart failure reviewed with him. Unable to use Cecilio/Arb due to CKD. He is on metoprolol XL and Farxiga for neurohormonal modulation. Signs and symptoms of heart failure reviewed with him. Continue to follow with Nephrology. (2) Cardiomyopathy: Code(s): I42.9 - Cardiomyopathy, unspecified Category: Medical Plan: Finding of cardiomyopathy EF 40-45%. He does have moderate LVH. It it was thought to be related hypertension however ischemic eval still pending. He then had readmission with NSTEMI. Now stable for nuclear stress test. He has no anginal symptoms at this time but is sedentary. Continue metoprolol XL and Farxiga. Continue aspirin, hydralazine, amlodipine, atorvastatin. (3) Anemia in chronic kidney disease (CKD): Code(s): N18.9 - Chronic kidney disease, unspecified; D63.1 - Anemia in chronic kidney disease Category: Medical Qualifiers: Chronic kidney disease stage: stage 4 (GFR 15-29) Qualified Code(s): N18.4 - Chronic kidney disease, stage 4 (severe); D63.1 - Anemia in chronic kidney disease Plan: Recent Significant anemia with hemoglobin as low as 6.6. He did receive 3 units of pack cells and dose of Procrit. Will negative for occult blood. No obvious bleeding noted. He was discharged on Xarelto 2.5 mg b.i.d., likely for peripheral vascular disease. Labs done today shows hemoglobin 11.3 (4) CKD (chronic kidney disease) stage 4, GFR 15-29 ml/min: Code(s): N18.4 - Chronic kidney disease, stage 4 (severe) Category: Medical Plan: Following with Dr. Ruiz, nephrology. Labs today show creatinine 7.68. Patient's significant other does state that they are discussing possible dialysis. (5) Hospital discharge follow-up: Code(s): Z09 - Encounter for follow-up examination after completed treatment for conditions other than malignant neoplasm Category: Medical Plan: Discharge summary reviewed, cardiology notes reviewed. (6) PAC (premature atrial contraction): Code(s): I49.1 - Atrial premature depolarization Category: Medical Plan: Concern for possible atrial fibrillation and thought to have sinus rhythm with frequent PACs. Will check a Holter monitor for further evaluation. Plan I discussed the importance of reducing amlodipine to manage blood pressure and edema. We talked about the need for a nuclear stress test to evaluate cardiac function and potential coronary artery disease. I explained the use of a heart monitor to check for arrhythmias, particularly atrial fibrillation. We also discussed the benefits of rehabilitation to improve physical activity and address depression. I emphasized the importance of medication adherence and increasing physical activity to improve overall health. Orders: Orders CA lexiscan stress w romina Today I42.9 - Cardiomyopathy, unspecified, I49.1 - Atrial premature depolarization, I50.9 - Heart failure, unspecified NM cardiolite stress test Today I42.9 - Cardiomyopathy, unspecified, I49.1 - Atrial premature depolarization, I50.9 - Heart failure, unspecified ECG 3 day holter monitor Today I49.1 - Atrial premature depolarization Medications: New amlodipine dose reduced 5 mg PO DAILY 90 tabs 1RF Patient Instructions: - Take amlodipine 5 mg as prescribed. - Attend scheduled nuclear stress test and heart monitoring appointments. - Participate in recommended rehabilitation program. - Adhere to medication regimen and increase physical activity. Patient was informed and verbally consented to the use of an ambient scribe for clinic note documentation during this visit. Visit time spent on chart review, interview, assessment, orders, documentation. Coding Level of Care Code Est Pt Level 4 (01590) Complex EM visit Add On G2211 Diagnoses New onset of congestive heart failure I50.9 Cardiomyopathy I42.9 Anemia in stage 4 chronic kidney disease N18.4; D63.1 Chronic kidney disease stage: stage 4 (GFR 15-29) CKD (chronic kidney disease) stage 4, GFR 15-29 ml/min N18.4 Hospital discharge follow-up Z09 PAC (premature atrial contraction) I49.1 Time Spent (min) 36
== END 2025-05-22 13:48 | disposition home or self-care (01) ==
LOC: HO.HCS 13:10
PROVIDERS: PCP Internal Medicine; Visit Provider Nurse Practitioner Family
DX: I50.9 Heart failure, unspecified (principal); I42.9 Cardiomyopathy, unspecified; N18.4 Chronic kidney disease, stage 4 (severe); D63.1 Anemia in chronic kidney disease; Z09 Encounter for follow-up examination after completed treatment for conditions other than malignant neoplasm; I49.1 Atrial premature depolarization
CPT/HCPCS: 99214; G2211

== ENCOUNTER 2025-05-26 15:00 | Outpatient (AMB) | payer OTHER, SELFPAY ==
--- OUTSIDE RECORDS SUMMARY | 2025-05-26 15:04 | XMS_ITS | Clinical Summary ---
Author Organization [facility] Address [address] [facility] [address] [place] [address] Phone Care Team Providers Care Rn Navigator Name Role Phone Michelle Long MD Primary Care Provider [phone] Allergies Active Allergy Reactions Criticality Noted Date [...] [facility] [address] [place] [address] Sydney Roslaes from Last 3 Months Family History Medical [...] to 49 Years) Discontinued 07/01/[address] [place] [id number] [facility] ([id number]) MAHESH MACIAS [id number] [facility] Dual SNP ([id number]) Care Teams Rn Navigator Relationship Specialty Start Date End Date Michelle Long MD [address], [place] PCP - General Internal Medicine 10/06/23
--- OUTSIDE RECORDS SUMMARY | 2025-05-26 15:04 | XMS_ITS | Encounter Summary ---
Author Organization [facility] Address [address] [place] [address] Care Team Providers Care Children'S Nursery Assistant Name Role Phone Travis Au MD Primary Care Provider [phone] Encounter Details Date Type Department Care Team (Latest Contact Info) Description 11/01/2024 Lab Requisition [facility] - Main Lab [address] [place] [address] Brandon Mckeon MD [address] [place] [address] Type 2 diabetes mellitus without [...] LAB CHEMISTRY METHOD 11/02/2024 12:37 PM EST [facility] Potassium 5.1 3.5 - 5.5 mmol/L LAB CHEMISTRY METHOD 11/02/2024 12:37 PM [facility] Chloride 107 96 - 110 mmol/L LAB CHEMISTRY METHOD 11/02/2024 12:37 PM [facility] CO2 21 21 - 32 mmol/L LAB CHEMISTRY METHOD 11/02/2024 12:37 PM [facility] Anion Gap 6 3 - 11 LAB CHEMISTRY METHOD 11/02/2024 12:37 PM [facility] Glucose 93 70 - 100 mg/dL LAB CHEMISTRY METHOD 11/02/2024 12:37 PM [facility] BUN 54(H) 5 - 25 mg/dL LAB CHEMISTRY METHOD 11/02/2024 12:37 PM [facility] Creatinine 3.63(H) 0.70 - 1.30 mg/dL LAB CHEMISTRY METHOD 11/02/2024 12:37 PM [facility] eGFR 18(L) >=60 mL/min/1. 73m2 LAB CHEMISTRY METHOD 11/02/2024 12:37 PM [facility] Comment:Calculation based on the Chronic Kidney Disease Epidemiology Collaboration (CKD-EPI) equation refit without adjustment for race. BUN/Creatinine Ratio 14.9 LAB CHEMISTRY METHOD 11/02/2024 12:37 PM [facility] Calcium 8.5 8.5 - 10.5 mg/dL LAB CHEMISTRY METHOD 11/02/2024 12:37 PM [facility] Blood Venous blood specimen / Unknown Venipuncture / Unknown 11/02/2024 7:04 AM EST 11/02/2024 11:13 AM EST us Brandon Mckeon MD LAB BLOOD ORDERABLES Final Resu lt [facility] [address] [place] [address], [place] [phone] * (ABNORMAL) Complete blood count (11/02/2024 7:04 AM EST) [facility] WBC 8.5 4.8 - 10.8 K/mcL LAB HEMETOLOGY METHOD 11/02/2024 12:23 PM [facility] RBC 3.10(L) 4.50 - 5.50 M/mcL LAB HEMETOLOGY METHOD 11/02/2024 12:23 PM [facility] Hemoglobin 8.8(L) 13.5 - 17.5 g/dL LAB HEMETOLOGY METHOD 11/02/2024 12:23 PM [facility] Hematocrit 28.2(L) 42.0 - 54.0 % LAB HEMETOLOGY METHOD 11/02/2024 12:23 PM [facility] MCV 91.9 79.0 - 98.0 FL LAB HEMETOLOGY METHOD 11/02/2024 12:23 PM [facility] MCH 28.7 27.0 - 32.0 pcg LAB HEMETOLOGY METHOD 11/02/2024 12:23 PM [facility] MCHC 31.2(L) 32.0 - 37.0 g/dL LAB HEMETOLOGY METHOD 11/02/2024 12:23 PM [facility] RDW 13.6 11.0 - 15.0 % LAB HEMETOLOGY METHOD 11/02/2024 12:23 PM [facility] Platelets 382 130 - 400 K/mcL LAB HEMETOLOGY METHOD 11/02/2024 12:23 PM [facility] MPV 10.3 7.0 - 11.0 FL LAB HEMETOLOGY METHOD 11/02/2024 12:23 PM [facility] NRBC 0.0 <1.0 % LAB HEMETOLOGY METHOD 11/02/2024 12:23 PM [facility] NRBC Absolute 0.00 <0.10 K/mcL LAB HEMETOLOGY METHOD 11/02/2024 12:23 PM EST [facility] Blood Venous blood specimen / Unknown Venipuncture / Unknown 11/02/2024 7:04 AM EST 11/02/2024 11:13 AM EST us Brandon Mckeon MD LAB BLOOD ORDERABLES Final Resu lt [facility] [address] [place] [address], documented in this encounter Visit Diagnoses Diagnosis Type 2 diabetes mellitus without complications (CMS/HCC V24, CMS/HCC V28) documented in this encounter Care Teams Children'S Nursery Assistant Relationship Specialty Start Date End Date Travis Au MD [address] [place] [address], [phone] PCP - General Family Medicine 08/22/24 documented as of this encounter
--- NOTE | 2025-05-26 15:14 | HO.NEPHOV_ITS ---
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 He has H/O sepsis secondary to acute osteomyelitis/septic arthritis L foot, lytic changes at the area suggestive of OM with positive cultures for MRSA,echo no vegetations; repeat blood culture 02/21 1/2 +, repeat blood cultures 02/23 was negative at 48 hrs. He had ATN during his hospitalization but later in [facility] he was thought to have progression of his renal disease. He denies uremic symptoms. He came for follow up and his family does not want to take him back home. He has advanced renal disease with metabolic acidosis and has not initiated HD yet [facility] Medical History Anemia in chronic kidney disease (CKD) Hypertension CKD (chronic kidney disease) stage 4, GFR 15-29 ml/min Fluid overload Acute and chronic respiratory failure Sepsis Acute dehydration New onset of congestive heart failure Pneumonia Urinary urgency Urinary tract infection Urinary hesitancy Tubular adenoma of colon Smoker Seborrheic keratoses SND (sensorineural deafness) Right BKA infection Peripheral vascular disease WENDY (obstructive sleep apnea) Microalbuminuria Lung nodule seen on imaging study Lightheadedness Latent tuberculosis LVH (left ventricular hypertrophy) Abnormal PFTs Hyponatremia Hypertensive retinopathy of both eyes Hyperkalemia Hepatitis C Hearing loss of both ears Erectile dysfunction Cataract CKD (chronic kidney disease) Bladder wall thickening BPH (benign prostatic hyperplasia) Anticoagulated Anemia Peripheral neuropathy Diabetes mellitus, type II CVA (cerebral vascular accident) Adrenal nodule Kidney cysts Surgical History Hx of right BKA Family History Brother Diabetes Mother Diabetes Father Diabetes Social History Household Members: Spouse Housing: Apartment Do you presently have visiting nurse or other home services: Yes Alcohol intake: never Patient Tobacco Use Status: Former Tobacco user Tobacco use type: Cigarette e-Cigarette/Vaping Use: Former Use service: No Review of Systems Const All systems reviewed & are unremarkable except as noted in HPI and below Physical Exam Vital Signs: Last Vital Signs Pulse 85 05/26/25 15:15 BP 130/60 05/26/25 15:15 Pulse Ox 95 05/26/25 15:15 Oxygen Delivery Method Room Air 05/26/25 15:15 Const General: comfortable and no acute distress Orientation/consciousness: patient oriented x3 HEENT Head: Yes normocephalic Mouth: Normal oral and palatal mucosa present Eyes EOM: EOMs intact bilaterally Neck Neck: Yes supple Resp Auscultation: clear to auscultation bilaterally Cardio Jugular venous distension: no JVD Rate: regular rate GI Palpation (GI): Soft to palpation Auscultation: normal bowel sounds General: Yes no CVA tenderness Back/Spine/Pelvis Back: no CVA tenderness Skin General skin exam: no rashes or lesions noted Neuro General: patient oriented x3 and moves all extremities Results Reviewed Nephrology Results: Hgb, (14.0-18.0) 11.3 g/dl L 05/22/25 WBC, (4.8-10.8) 7.7 X10*3/uL 05/22/25 Plt Count, (160-400) 245 X10*3/uL 05/22/25 Sodium, (135-145) 137 mmol/L 05/22/25 Potassium, (3.3-5.1) 4.4 mmol/L 05/22/25 Chloride, (96-108) 110 mmol/L H 05/22/25 Carbon Dioxide, (22-29) 15 mmol/L L 05/22/25 BUN, (9-16) 78 mg/dL H 05/22/25 Creatinine, (0.5-1.4) 7.68 mg/dL H* 05/22/25 Calcium, (8.4-10.2) 8.1 mg/dL L 05/22/25 Phosphorus, (2.7-4.5) 5.5 mg/dL H 04/25/25 PTH Intact, (8.7-77.1) 342.7 pg/mL H 04/20/25 Urine Protein, (Neg-Trace) >=1000 (4+) mg/dL H 04/29/25 Renal US 02/20/25 Assessment & Plan Assessment & Plan (1) Hypertension: Code(s): I10 - Essential (primary) hypertension Category: Medical Qualifiers: Hypertension type: renovascular hypertension Qualified Code(s): I15.0 - Renovascular hypertension (2) Secondary hyperparathyroidism (of renal origin): Code(s): N25.81 - Secondary hyperparathyroidism of renal origin Category: Medical (3) Vitamin D deficiency: Code(s): E55.9 - Vitamin D deficiency, unspecified Category: Medical (4) CKD (chronic kidney disease) stage 5, GFR less than 15 ml/min: Code(s): N18.5 - Chronic kidney disease, stage 5 Category: Medical (5) Anemia in chronic kidney disease (CKD): Code(s): N18.9 - Chronic kidney disease, unspecified; D63.1 - Anemia in chronic kidney disease Category: Medical Qualifiers: Chronic kidney disease stage: stage 4 (GFR 15-29) Qualified Code(s): N18.4 - Chronic kidney disease, stage 4 (severe); D63.1 - Anemia in chronic kidney disease (6) Metabolic acidosis: Code(s): E87.20 - Acidosis, unspecified Category: Medical Plan Mr Hinson has advanced chronic kidney disease from diabetes, hypertension as well as vascular disease. His renal disease has been progressive and is close to initiating HD. He is aware that he needs to go on dialysis . His blood pressure is at goal. His volume status is optimal. He is tolerating his current medications. He should remain on low potassium diet. I shall initiate him on activated vitamin-D after replacing vitamin-D. He needs to be on PO NaHCO3. Currently he does not have any uremic symptoms. I shall refer him for AVF/TX eval. I sent him to ER as he has no place to go and has advanced renal disease. ( for social admission). All his questions were answered. Orders: Orders IRON PROFILE 3 Weeks D63.1 - Anemia in chronic kidney disease, E55.9 - Vitamin D deficiency, unspecified, E87.20 - Acidosis, unspecified, I15.0 - Renovascular hypertension, N18.4 - Chronic kidney disease, stage 4 (severe), N18.5 - Chronic kidney disease, stage 5, N25.81 - Secondary hyperparathyroidism of renal origin Creatinine 3 Weeks D63.1 - Anemia in chronic kidney disease, E55.9 - Vitamin D deficiency, unspecified, E87.20 - Acidosis, unspecified, I15.0 - Renovascular hypertension, N18.4 - Chronic kidney disease, stage 4 (severe), N18.5 - Chronic kidney disease, stage 5, N25.81 - Secondary hyperparathyroidism of renal origin Blood Urea Nitrogen 3 Weeks D63.1 - Anemia in chronic kidney disease, E55.9 - Vitamin D deficiency, unspecified, E87.20 - Acidosis, unspecified, I15.0 - Renovascular hypertension, N18.4 - Chronic kidney disease, stage 4 (severe), N18.5 - Chronic kidney disease, stage 5, N25.81 - Secondary hyperparathyroidism of renal origin Phosphorus 3 Weeks D63.1 - Anemia in chronic kidney disease, E55.9 - Vitamin D deficiency, unspecified, E87.20 - Acidosis, unspecified, I15.0 - Renovascular hypertension, N18.4 - Chronic kidney disease, stage 4 (severe), N18.5 - Chronic kidney disease, stage 5, N25.81 - Secondary hyperparathyroidism of renal origin Complete Blood Count Auto Diff 3 Weeks D63.1 - Anemia in chronic kidney disease, E55.9 - Vitamin D deficiency, unspecified, E87.20 - Acidosis, unspecified, I15.0 - Renovascular hypertension, N18.4 - Chronic kidney disease, stage 4 (severe), N18.5 - Chronic kidney disease, stage 5, N25.81 - Secondary hyperparathyroidism of renal origin Ferritin 3 Weeks D63.1 - Anemia in chronic kidney disease, E55.9 - Vitamin D deficiency, unspecified, E87.20 - Acidosis, unspecified, I15.0 - Renovascular hypertension, N18.4 - Chronic kidney disease, stage 4 (severe), N18.5 - Chronic kidney disease, stage 5, N25.81 - Secondary hyperparathyroidism of renal origin Electrolytes 3 Weeks D63.1 - Anemia in chronic kidney disease, E55.9 - Vitamin D deficiency, unspecified, E87.20 - Acidosis, unspecified, I15.0 - Renovascular hypertension, N18.4 - Chronic kidney disease, stage 4 (severe), N18.5 - Chronic kidney disease, stage 5, N25.81 - Secondary hyperparathyroidism of renal origin Calcium 3 Weeks D63.1 - Anemia in chronic kidney disease, E55.9 - Vitamin D deficiency, unspecified, E87.20 - Acidosis, unspecified, I15.0 - Renovascular hypertension, N18.4 - Chronic kidney disease, stage 4 (severe), N18.5 - Chronic kidney disease, stage 5, N25.81 - Secondary hyperparathyroidism of renal origin Parathyroid Hormone Intact 3 Weeks D63.1 - Anemia in chronic kidney disease, E55.9 - Vitamin D deficiency, unspecified, E87.20 - Acidosis, unspecified, I15.0 - Renovascular hypertension, N18.4 - Chronic kidney disease, stage 4 (severe), N18.5 - Chronic kidney disease, stage 5, N25.81 - Secondary hyperparathyroidism of renal origin Vitamin D 25-OH Total 3 Weeks D63.1 - Anemia in chronic kidney disease, E55.9 - Vitamin D deficiency, unspecified, E87.20 - Acidosis, unspecified, I15.0 - Renovascular hypertension, N18.4 - Chronic kidney disease, stage 4 (severe), N18.5 - Chronic kidney disease, stage 5, N25.81 - Secondary hyperparathyroidism of renal origin Coding Level of Care Code Est Pt Level 4 (82813) Diagnoses Renovascular hypertension I15.0 Hypertension type: renovascular hypertension Secondary hyperparathyroidism (of renal origin) N25.81 Vitamin D deficiency E55.9 CKD (chronic kidney disease) stage 5, GFR less than 15 ml/min N18.5 Anemia in stage 4 chronic kidney disease N18.4; D63.1 Chronic kidney disease stage: stage 4 (GFR 15-29) Metabolic acidosis E87.20
[2025-05-26 15:15] VITALS: BP 130/60; PULSE 85; O2SAT 95
== END 2025-05-26 15:40 | disposition home or self-care (01) ==
LOC: HO.HKA 15:00
PROVIDERS: PCP Internal Medicine; Visit Provider Internal Medicine Nephrology
DX: I15.0 Renovascular hypertension (principal); N25.81 Secondary hyperparathyroidism of renal origin; E55.9 Vitamin D deficiency, unspecified; N18.5 Chronic kidney disease, stage 5; N18.4 Chronic kidney disease, stage 4 (severe); D63.1 Anemia in chronic kidney disease; E87.20 Acidosis, unspecified
CPT/HCPCS: 99214

== ENCOUNTER → 2025-05-26 15:00 | Outpatient (BNVA) | payer OTHER, SELFPAY | PROVIDERS: PCP Internal Medicine; Visit Provider Internal Medicine Nephrology | DX: I15.0 Renovascular hypertension (principal); N25.81 Secondary hyperparathyroidism of renal origin; E55.9 Vitamin D deficiency, unspecified; N18.5 Chronic kidney disease, stage 5; D63.1 Anemia in chronic kidney disease; E87.20 Acidosis, unspecified | CPT/HCPCS: 99212 ==

== ENCOUNTER 2025-05-26 15:44 | Inpatient (IN) | payer OTHER, SELFPAY ==
[2025-05-26 16:15] VITALS: BP 160/73; PULSE 82; RESP 16; TEMP 36.7; O2SAT 97; BMI 25.8
[2025-05-26 16:39] LABS: MANUAL DIFF FLAG NO
[2025-05-26 16:59] LABS: Hematocrit 31.2 % (42.0-52.0); Hemoglobin 10.0 g/dl (14.0-18.0); Imm Gran Abs Auto 0.03 X10*3/uL (0.00-0.03); Imm Gran Pct Auto 0.4 % (0.0-0.4); Lymphocytes Absolute Auto 1.2 X10*3/uL (1.2-4.9); Mean Corpuscular HGB Conc 32.1 g/dl (31.0-36.0); Mean Corpuscular Hemoglobin 28.7 pg (27.0-33.0); Mean Corpuscular Volume 89.7 fL (80.0-98.0); NRBC Abs Auto 0.000 X10*3/uL (0.0-0.012); NRBC Pct Auto 0.0 /100WBC (0.0-0.2); Platelet Count 210 X10*3/uL (160-400); Red Blood Count 3.48 X10*6/uL (4.60-5.80); White Blood Count 7.9 X10*3/uL (4.8-10.8)
[2025-05-26 17:03] LABS: Alanine Aminotransferase 6 U/L (0-40); Albumin Level 3.2 g/dL (3.5-5.0); Alkaline Phosphatase 65 U/L (39-117); Anion Gap 17 (12-20); Aspartate Amino Transferase 14 U/L (5-37); Blood Urea Nitrogen 86 mg/dL (9-16); Calcium 8.2 mg/dL (8.4-10.2); Carbon Dioxide 15 mmol/L (22-29); Chloride 111 mmol/L (96-108); Creatinine Clr Calc Pharmacy 9.9; Estimated Glomerular Filt Rate 8; Potassium 4.9 mmol/L (3.3-5.1); Sodium 138 mmol/L (135-145); Total Protein 7.0 g/dL (6.5-8.0)
--- NOTE | 2025-05-26 18:13 | ED.GENADULT ---
HPI - General Adult General Chief complaint: General Medical Stated complaint: sent by Dr. Joseph cartagena (increase) Creat Time Seen by Provider: 05/26/25 18:10 Source: patient Limitations: no limitations History of Present Illness ED Provider: Lindsey Hua PA-C HPI narrative: 65-year-old male with a history of COPD, chronic respiratory failure on O2, WENDY s/p right BKA, HTN, a AFib on Xarelto, type 2 diabetes, just recently s/p left great toe amputation with CKD 5 pending initiation of hemodialysis, presents from Nephrology office given need for social admission. Patient was seen by Dr. Marley today as a f/u appointment, he sent him to ER as he has no place to go and has advanced renal disease. ( for social admission), his family is refusing to take him home. Patient is asymptomatic, has no symptoms associated with uremia. Related Data Home Medications ?Medication ?Instructions ?Recorded ?Confirmed aspirin 81 mg chewable tablet 1 tab PO DAILY 12/19/24 05/26/25 dapagliflozin propanediol 10 mg 10 mg PO DAILY 12/19/24 05/26/25 tablet (Farxiga) finasteride 5 mg tablet 5 mg PO DAILY 12/19/24 05/26/25 metoprolol succinate 100 mg 100 mg PO DAILY 12/19/24 05/26/25 tablet,extended release 24 hr tamsulosin 0.4 mg capsule 0.4 mg PO DAILY 12/19/24 05/26/25 umeclidinium 62.5 mcg/actuation 1 inh inhalation DAILY 12/19/24 05/26/25 blister powder for inhalation (Incruse Ellipta) hydralazine 25 mg tablet 50 mg PO TID 12/30/24 05/26/25 rivaroxaban 2.5 mg tablet (Xarelto) 2.5 mg PO BID 12/30/24 05/26/25 sodium bicarbonate 650 mg tablet 650 mg PO TID 12/30/24 05/26/25 Previous Rx's ?Medication ?Instructions ?Recorded acetaminophen 325 mg tablet 975 mg (3 x 325 mg) PO Q6H PRN 03/02/25 Pain, Mild 1-3,Fever,Headache #20 tabs alcohol swabs 1 pad topical QIDACHS #100 ea 03/02/25 blood sugar diagnostic (FreeStyle #100 ea 03/02/25 Lite Strips) blood-glucose meter (FreeStyle #1 ea 03/02/25 Lite Meter kit) insulin lispro 100 unit/mL 0 sliding scale dose subcut 03/02/25 subcutaneous pen (Humalog KwjairoPen QIDACHS #15 mL (U-100) Insulin) lancets 28 gauge (FreeStyle #100 ea 03/02/25 Lancets) pen needle, diabetic 32 gauge x #100 ea 03/02/25 1/ furosemide 20 mg tablet (Lasix) 20 mg PO DAILY #30 tabs 04/25/25 sodium zirconium cyclosilicate 10 10 g PO .twice weekly #30 ea 04/25/25 gram oral powder packet (Lokelma) amlodipine 5 mg tablet 5 mg PO DAILY #90 tabs 05/22/25 Allergies Allergy/AdvReac Type Severity Reaction Status Date / Time morphine Allergy Hallucinati Verified 05/26/25 16:17 ons bupropion AdvReac Hallucinati Verified 05/26/25 16:17 ons Review of Systems Review of Systems: Yes all other systems are reviewed and are negative Constitutional: Constitutional: Denies fatigue and Denies fever(s) Cardiovascular: Cardiovascular: Denies chest pain and Denies dyspnea Respiratory: Respiratory: Denies dyspnea Gastrointestinal: Gastrointestinal: Denies nausea and Denies vomiting Endocrine: Endocrine: Denies fatigue PMF Past Medical History Attestation statement: The following information was validated with the patient. Medical History Anemia in chronic kidney disease (CKD) Hypertension CKD (chronic kidney disease) stage 4, GFR 15-29 ml/min Fluid overload Acute and chronic respiratory failure Sepsis Acute dehydration New onset of congestive heart failure Pneumonia Urinary urgency Urinary tract infection Urinary hesitancy Tubular adenoma of colon Smoker Seborrheic keratoses SND (sensorineural deafness) Right BKA infection Peripheral vascular disease WENDY (obstructive sleep apnea) Microalbuminuria Lung nodule seen on imaging study Lightheadedness Latent tuberculosis LVH (left ventricular hypertrophy) Abnormal PFTs Hyponatremia Hypertensive retinopathy of both eyes Hyperkalemia Hepatitis C Hearing loss of both ears Erectile dysfunction Cataract CKD (chronic kidney disease) Bladder wall thickening BPH (benign prostatic hyperplasia) Anticoagulated Anemia Peripheral neuropathy Diabetes mellitus, type II CVA (cerebral vascular accident) Adrenal nodule Kidney cysts Surgical History Hx of right BKA Family History Family History Brother Diabetes Mother Diabetes Father Diabetes Social History Social History Household Members: Spouse Housing: Apartment Do you presently have visiting nurse or other home services: Yes Alcohol intake: never Patient Tobacco Use Status: Former Tobacco user Tobacco use type: Cigarette e-Cigarette/Vaping Use: Former Use service: No Physical Exam ED Vital Signs: Vital Signs - 24 hr 05/26/25 16:15 05/26/25 18:20 Temperature 98.0 F 98.5 F Pulse Rate 82 86 Respiratory Rate 16 12 Blood Pressure 160/73 H 166/69 H Pulse Oximetry 97 97 Oxygen Delivery Method Room Air Room Air BMI result Body Mass Index 25.8 Const Other: Alert Orientation/consciousness: patient oriented x3 Resp Effort & Inspection: normal respiratory effort Cardio Other: Normal peripheral perfusion Skin Other: Warm dry no rash Neuro General: patient oriented x3, gait normal, no focal motor deficits and CN's II-XI intact bilaterally Psych Other: Cooperative Medical Decision Making Medical Decision Making MDM Narrative: 65-year-old male with a history of COPD, chronic respiratory failure on O2, WENDY s/p right BKA, HTN, a AFib on Xarelto, type 2 diabetes, just recently s/p left great toe amputation with CKD 5 pending initiation of hemodialysis, presents from Nephrology office given need for social admission. Patient was seen by Dr. Marley today as a f/u appointment, he sent him to ER as he has no place to go and has advanced renal disease. ( for social admission), his family is refusing to take him home. Patient is asymptomatic, has no symptoms associated with uremia. Problem: Vascular disease, diabetes, pending dialysis History: Per patient I have considered the following differential diagnoses: Need to initiate dialysis, housing and security Plan: Screening labs already obtained, he is at his baseline, we will place admission. Dr. Marley had referred him for AVF/TX eval. I have independently reviewed the following tests: Labs: No overall leukocytosis, left shift noted, stable anemia, no electrolyte abnormality, creatinine 7.31, Lab Data 05/26/25 16:34 05/26/25 16:34 Labs: Lab Results 05/26/25 05/26/25 Range/Units 16:34 18:25 WBC 7.9 (4.8-10.8) X10*3/uL RBC 3.48 L (4.60-5.80) X10*6/uL Hgb 10.0 L (14.0-18.0) g/dl Hct 31.2 L (42.0-52.0) % MCV 89.7 (80.0-98.0) fL MCH 28.7 (27.0-33.0) pg MCHC 32.1 (31.0-36.0) g/dl RDW 16.6 H (11.0-16.0) % Plt Count 210 (160-400) X10*3/uL MPV 10.0 (9.4-12.4) fL Immature Gran % (Auto) 0.4 (0.0-0.4) % Neut % (Auto) 73.9 H (45-73) % Lymph % (Auto) 15.6 L (20-40) % Evangeline % (Auto) 6.6 (2-11) % Eos % (Auto) 2.5 (0-4) % Baso % (Auto) 1.0 (0-2) % Lymph # (Auto) 1.2 (1.2-4.9) X10*3/uL Evangeline # (Auto) 0.5 (0.1-1.2) X10*3/uL Eos # (Auto) 0.2 (0.0-0.4) X10*3/uL Baso # (Auto) 0.1 (0.0-0.2) X10*3/uL Abs Immat Gran (auto) 0.03 (0.00-0.03) X10*3/uL Absolute Neuts (auto) 5.8 (2.0-8.3) x10*3/uL Absolute Nucleated RBC 0.000 (0.0-0.012) X10*3/uL Nucleated RBC % (auto) 0.0 (0.0-0.2) /100WBC Sodium 138 (135-145) mmol/L Potassium 4.9 (3.3-5.1) mmol/L Chloride 111 H (96-108) mmol/L Carbon Dioxide 15 L (22-29) mmol/L Anion Gap 17 (12-20) BUN 86 H (9-16) mg/dL Creatinine 7.31 H* (0.5-1.4) mg/dL Estim Creat Clear Calc 9.9 Estimated GFR 8 POC Glucose 92 (60-115) mg/dL Random Glucose 112 (60-115) mg/dL Calcium 8.2 L (8.4-10.2) mg/dL Total Bilirubin 0.3 (0.0-1.0) mg/dL AST 14 (5-37) U/L ALT 6 (0-40) U/L Alkaline Phosphatase 65 (39-117) U/L Total Protein 7.0 (6.5-8.0) g/dL Albumin 3.2 L (3.5-5.0) g/dL Discharge Plan Discharge Clinical Impression: Chronic kidney disease (CKD), stage 5, Housing insecurity Patient Disposition: Admitted As Inpatient Print Language: Maltese
--- NOTE | 2025-05-26 18:17 | ECG_ITS ---
Test Reason : HYPERTENSION Blood Pressure : */* mmHG Vent. Rate : 85 BPM Atrial Rate : 85 BPM P-R Int : 168 ms QRS Dur : 106 ms QT Int : 418 ms P-R-T Axes : 41 62 194 degrees QTcB Int : 497 ms Poor data quality, interpretation may be adversely affected Normal sinus rhythm Left atrial enlargement Left ventricular hypertrophy ( Sokolow-Moore ) ST & Marked T wave abnormality, consider anterolateral ischemia Prolonged QT Abnormal ECG When compared with ECG of 29-Apr-2025 11:01, ST elevation now present in Anterior leads Referred By: Generic ED Physician Electronically Signed By:
[2025-05-26 18:20] VITALS: BP 166/69; PULSE 86; RESP 12; TEMP 36.9; O2SAT 97
[2025-05-26 18:29] LABS: Glucose, Whole Blood 92 mg/dL (60-115)
--- NOTE | 2025-05-26 19:14 | PM.IMHP ---
History of Present Illness Date of Service: 05/26/25 Chief Complaint: Social admission This is a 65-year-old male with pertinent history of CKD stage 5, atrial fibrillation on Xarelto, hypertension, BPH, chronic hypoxemic respiratory failure due to COPD, WENDY, PVD status post right BKA, anemia of chronic kidney disease, insulin-dependent type 2 diabetes mellitus, congestive heart failure with reduced ejection fraction who was sent to the emergency department for need for social admission. Patient was seen outpatient by his financial reporting accountant on the day of presentation. Patient's family does not want to take him back home and he states that he has no vertigo that is why he was sent to the ER. Patient denies any complaints at the time of my evaluation. No fever, chills, chest pain, palpitations, shortness of breath, abdominal pain, changes in urinary or bowel habits. He does have advanced progressive chronic kidney disease and may need hemodialysis soon as per Nephrology Review of Systems Constitutional: Constitutional: Reports no additional constitutional complaints Cardiovascular: Cardiovascular: Reports no additional cardiovascular complaints Respiratory: Respiratory: Reports no additional respiratory complaints Gastrointestinal: Gastrointestinal: Reports no additional gastrointestinal complaints Genitourinary: Genitourinary: Reports no additional male genitourinary complaints [facility] Medical History Anemia in chronic kidney disease (CKD) Hypertension CKD (chronic kidney disease) stage 4, GFR 15-29 ml/min Fluid overload Acute and chronic respiratory failure Sepsis Acute dehydration New onset of congestive heart failure Pneumonia Urinary urgency Urinary tract infection Urinary hesitancy Tubular adenoma of colon Smoker Seborrheic keratoses SND (sensorineural deafness) Right BKA infection Peripheral vascular disease WENDY (obstructive sleep apnea) Microalbuminuria Lung nodule seen on imaging study Lightheadedness Latent tuberculosis LVH (left ventricular hypertrophy) Abnormal PFTs Hyponatremia Hypertensive retinopathy of both eyes Hyperkalemia Hepatitis C Hearing loss of both ears Erectile dysfunction Cataract CKD (chronic kidney disease) Bladder wall thickening BPH (benign prostatic hyperplasia) Anticoagulated Anemia Peripheral neuropathy Diabetes mellitus, type II CVA (cerebral vascular accident) Adrenal nodule Kidney cysts Family History Brother Diabetes Mother Diabetes Father Diabetes Surgical History Hx of right BKA Social History Household Members: Spouse Housing: Apartment Do you presently have visiting nurse or other home services: Yes Alcohol intake: never Patient Tobacco Use Status: Former Tobacco user Tobacco use type: Cigarette Smoked in Last 30 Days: No e-Cigarette/Vaping Use: Former Use Use of substances other than those prescribed or required for medical reasons: No Advance Directives: No Advance Directives Information Provided: No service: No Meds Allergies Allergy/AdvReac Type Severity Reaction Status Date / Time morphine Allergy Hallucinati Verified 05/26/25 16:17 ons bupropion AdvReac Hallucinati Verified 05/26/25 16:17 ons Home Medications ?Medication ?Instructions ?Recorded ?Confirmed ?Last Taken ?Type aspirin 81 mg chewable tablet 1 tab PO DAILY 12/19/24 05/26/25 05/26/25 History dapagliflozin propanediol 10 mg 10 mg PO DAILY 12/19/24 05/26/25 05/26/25 History tablet (Farxiga) finasteride 5 mg tablet 5 mg PO DAILY 12/19/24 05/26/25 05/26/25 History metoprolol succinate 100 mg 100 mg PO DAILY 12/19/24 05/26/25 05/26/25 History tablet,extended release 24 hr tamsulosin 0.4 mg capsule 0.4 mg PO DAILY 12/19/24 05/26/25 05/26/25 History umeclidinium 62.5 mcg/actuation 1 inh inhalation DAILY 12/19/24 05/26/25 05/26/25 History blister powder for inhalation (Incruse Ellipta) hydralazine 25 mg tablet 50 mg PO TID 12/30/24 05/26/25 05/26/25 History rivaroxaban 2.5 mg tablet (Xarelto) 2.5 mg PO BID 12/30/24 05/26/25 05/26/25 History sodium bicarbonate 650 mg tablet 650 mg PO TID 12/30/24 05/26/25 05/26/25 History Physical Exam Vital Signs and Narrative: Vital Signs: Last Vital Signs Temp 98.5 F 05/26/25 18:20 Pulse 86 05/26/25 18:20 Resp 12 05/26/25 18:20 BP 166/69 H 05/26/25 18:20 Pulse Ox 97 05/26/25 18:20 O2 Del Method Room Air 05/26/25 18:20 BMI result Body Mass Index 25.8 Const: Other: Middle-aged male lying in bed in no distress Neck supple, no JVD Regular rate and rhythm, S1-S2 heard Regular breath sounds bilaterally, no wheezing or crackles appreciated Abdomen soft nontender, no guarding, no rigidity Patient is awake, alert and oriented x3 ; no focal motor deficit Psych: Normal mood Right BKA Results Labs 05/26/25 16:34 05/26/25 16:34 Labs: Laboratory Results - last 24 hr 05/26/25 05/26/25 16:34 18:25 MCV 89.7 MCH 28.7 MCHC 32.1 RDW 16.6 H Plt Count 210 MPV 10.0 Immature Gran % (Auto) 0.4 Neut % (Auto) 73.9 H Lymph % (Auto) 15.6 L Catron % (Auto) 6.6 Eos % (Auto) 2.5 Baso % (Auto) 1.0 Lymph # (Auto) 1.2 Catron # (Auto) 0.5 Eos # (Auto) 0.2 Baso # (Auto) 0.1 Abs Immat Gran (auto) 0.03 Absolute Neuts (auto) 5.8 Absolute Nucleated RBC 0.000 Nucleated RBC % (auto) 0.0 Anion Gap 17 Estim Creat Clear Calc 9.9 Estimated GFR 8 POC Glucose 92 Random Glucose 112 Calcium 8.2 L Total Bilirubin 0.3 AST 14 ALT 6 Alkaline Phosphatase 65 Total Protein 7.0 Albumin 3.2 L Assessment and Plan (1) Hospital admission due to social situation: Status: Acute (2) CKD (chronic kidney disease) stage 5, GFR less than 15 ml/min: Status: Acute (3) Metabolic acidosis: Status: Acute Plan This is a 65-year-old male with pertinent history of CKD stage 5, atrial fibrillation on Xarelto, hypertension, BPH, chronic hypoxemic respiratory failure due to COPD, WENDY, PVD status post right BKA, anemia of chronic kidney disease, insulin-dependent type 2 diabetes mellitus, congestive heart failure with reduced ejection fraction who was sent to the emergency department for need for social admission. #. Social admission: Patient's family refusing to take him home and he has no place to go. Consulted case management/director of social services #. CKD stage 5 with metabolic acidosis: Patient was sent in by his financial reporting accountant, has advanced progressive chronic kidney disease and is close to initiating hemodialysis. Will consult Nephrology. May need vascular surgery consult. On sodium bicarb #. Congestive heart failure with reduced ejection fraction: On beta-christine and diuretics #. Anemia of chronic kidney disease: Hemoglobin above transfusion threshold #. Chronic hypoxemic respiratory failure due to COPD: No exacerbation during admission. Continue home inhalers #. Paroxysmal atrial fibrillation: On Xarelto and beta-christine #. BPH: On Flomax and finasteride #. Peripheral vascular disease: On aspirin but not on statin Med rec pending DVT prophylaxis: Xarelto Full code Admit as inpatient and will require two night minimum hospital stay for safe discharge planning, monitoring of kidney function (as above), which is not possible in a lesser acute setting. Quality Stroke Does the patient have a stroke diagnosis?: No VTE Prior VTE?: No VTE Risk Level:: Medical - moderate - high VTE Device Contraindication: Treatment Not Indicated VTE Drug Contraindication: N/A - Med Ordered
[2025-05-26 20:55] VITALS: BP 176/65; PULSE 84; RESP 16; TEMP 36.4; O2SAT 97
--- NOTE | 2025-05-26 21:02 | PHA.MEDREC ---
Addendum entered by Carlyn Ford [facility] 05/26/25 21:37: Reviewed. Pt takes Sodium Bicarb 1 tab TID, unlike directions that are 3 tabs daily. Original Note: Pharmacy Consult ? Medication Reconciliation Pharmacy has completed the medication reconciliation. Spoke with pt spouse at bedside and she confirmed the pt medications. Spouse states pt, takes Hydralazine as needed for his hypertension, Humalog Kwikpen QIDACHS per sliding scale as needed for hypoglycemia, Xarelto, Sodium Bicarbonate and Tamsulosin still despite claims showing no recent fills for them; I called pt pharmacy ([facility] ) and they confirmed Xarelto and Sodium Bicarbonate were last filled 12/2024 for 20 days and Tamsulosin LF 11/15 for 90 days. Pt spouse confirmed he takes Incruse still despite no claims shown; [facility] sates that was LF 02/2024 and Pt taking Atorvastatin again and states the pt only stopped it for 1 week before going back on it after his last DC 04/25. Pt taking Lokelma on Sundays and Wednesdays and last took it Monday 05/21 per spouse.
--- NOTE | 2025-05-26 21:02 | PC.NURSE ---
pt POC 92, no insulin given per protocol
[2025-05-26 21:03] LABS: Glucose, Whole Blood 92 mg/dL (60-115)
[2025-05-26 22:19] VITALS: BMI 21.6
[2025-05-26 22:32] VITALS: BP 172/82; PULSE 98; RESP 18; TEMP 36.7; O2SAT 98
[2025-05-26] MEDS: Albuterol/Iprat 2.5/0.5MG 3 ML AMPUL.NEB INHALE (23:07)
[2025-05-26 23:10] VITALS: PULSE 83; RESP 20; O2SAT 97
[2025-05-26] MEDS: 0.9 % Sodium Chloride Flush 3 ML SYRINGE IVFLUSH (23:14)
[2025-05-27] MEDS: oxyCODONE HCl Immed Release 5 MG TABLET PO (00:46)
--- NOTE | 2025-05-27 03:29 | HO.SKINPHOTO ---
Location: Lateral L foot Category: DM ulcer Stage: Length: Width: Depth: cm Location: L foot Category: DM ulcer & packed wound from great toe amputation Stage: Length: Width: Depth: cm
[2025-05-27 03:42] VITALS: BP 141/74; PULSE 77; RESP 16; TEMP 36.7; O2SAT 97
[2025-05-27 06:40] LABS: Hematocrit 27.8 % (42.0-52.0); Hemoglobin 8.8 g/dl (14.0-18.0); Imm Gran Abs Auto 0.04 X10*3/uL (0.00-0.03); Imm Gran Pct Auto 0.4 % (0.0-0.4); Lymphocytes Absolute Auto 1.9 X10*3/uL (1.2-4.9); Mean Corpuscular HGB Conc 31.7 g/dl (31.0-36.0); Mean Corpuscular Hemoglobin 28.5 pg (27.0-33.0); Mean Corpuscular Volume 90.0 fL (80.0-98.0); NRBC Abs Auto 0.000 X10*3/uL (0.0-0.012); NRBC Pct Auto 0.0 /100WBC (0.0-0.2); PLT CLUMP 1; Red Blood Count 3.09 X10*6/uL (4.60-5.80); SCAN SMEAR FLAG 1
[2025-05-27 06:45] LABS: MANUAL DIFF FLAG NO; White Blood Count 9.1 X10*3/uL (4.8-10.8)
[2025-05-27 07:05] LABS: Platelet Count 182 X10*3/uL (160-400)
[2025-05-27 07:23] LABS: Glucose, Whole Blood 84 mg/dL (60-115)
[2025-05-27 07:32] VITALS: BP 162/77; PULSE 77; RESP 16; TEMP 36; O2SAT 96
[2025-05-27 07:37] LABS: Anion Gap 16 (12-20); Blood Urea Nitrogen 85 mg/dL (9-16); Calcium 7.6 mg/dL (8.4-10.2); Carbon Dioxide 13 mmol/L (22-29); Chloride 111 mmol/L (96-108); Creatinine Clr Calc Pharmacy 10.3; Estimated Glomerular Filt Rate 8; Potassium 5.2 mmol/L (3.3-5.1); Sodium 135 mmol/L (135-145)
[2025-05-27] MEDS: 0.9 % Sodium Chloride Flush 3 ML SYRINGE IVFLUSH (09:55)
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
[2025-05-27 10:33] LABS: Appearance Urine Clear; Glucose Urine UA 500 mg/dL (Negative); PH 6.0 (5.0-9.0); Specific Gravity - Urine 1.015 (1.005-1.025); UMIC TRIGGER UACC YES
[2025-05-27 11:15] LABS: Glucose, Whole Blood 108 mg/dL (60-115)
--- NOTE | 2025-05-27 11:51 | P.DS_ITS ---
DS: Providers Provider Date of Service: 05/27/25 Date of admission: 05/26/25 19:13 Date of discharge: 05/27/25 Primary care physician: Michelle Long MD Consults: 05/26/25 19:13 Consult to Nephrology Routine Consulting Provider: [facility] Reason for consultation: ESRD progressing to dialysis 05/27/25 03:33 Consult to Wound Care Routine Reason for consultation: DM ulcer & recent toe amp DS: Diagnosis Discharge Diagnosis (1) Hospital admission due to social situation: Status: Acute (2) CKD (chronic kidney disease) stage 5, GFR less than 15 ml/min: Status: Acute (3) Metabolic acidosis: Status: Acute DS: Summary Hospital Course Hospital Course: 65-year-old male with pertinent history of CKD stage 5, atrial fibrillation on Xarelto, hypertension, BPH, chronic hypoxic respiratory failure due to COPD, WENDY, PVD status post right BKA, anemia of chronic disease, insulin-dependent type 2 diabetes mellitus and congestive heart failure sent to the emergency room from his refurbish technician office under the pretense of a social admission. Patient stated to refurbish technician that he did not returned to home prompting refurbish technician to have patient transported to the ER. Patient was admitted overnight by the night float resident. This a.m. when questioned, patient states that he was mad at only quitting. He was offered placement and adamantly refused it. This was also gone over with the vacation planner inpatient continued to decline placement and stated he was to go home. network planner spoke with patient's and she was willing to take him home. At this point in time he is quite able to make decisions related to his health and well-being and wishes to be discharge to home. Time Attestation Discharge Coordination Time (in mins): 35 Quality: Safe Use of Opioids Does Pt have an Active Cancer Diagnosis on the Problem List?: No Quality: Stroke Does the patient have a stroke diagnosis?: No Physical Exam Vital Signs: Vital Signs: Last Vital Signs Temp 96.8 F 05/27/25 07:32 Pulse 77 05/27/25 07:32 Resp 16 05/27/25 07:32 BP 162/77 H 05/27/25 07:32 Pulse Ox 96 05/27/25 07:32 O2 Del Method Room Air 05/27/25 07:32 O2 Flow Rate 2 05/27/25 03:42 BMI result Body Mass Index 21.6 Const: Other: Awake alert oriented x3 in no acute distress Resp: Other: Clear to auscultation bilaterally no rales rhonchi or wheezes Cardio: Other: No S4; positive S1-S2; no S3 murmurs rubs or gallops Extrem: Other: Right BKA; no edema on left DS: Data Data Completed and Pending Completed studies during hospitalization [Text1]: Procedures Excision of Right Kidney, Percutaneous Approach, Diagnostic (04/19/25) Fluoroscopy of Superior Vena Cava, Guidance (02/20/25) Insertion of Infusion Device into Superior Vena Cava, Percutaneous Approach (02/20/25) Insertion of Tunneled Vascular Access Device into Chest Subcutaneous Tissue and Fascia, Percutaneous Approach (02/20/25) Transfusion of Nonautologous Red Blood Cells into Peripheral Vein, Percutaneous Approach (04/19/25) Labs on day of discharge: Laboratory Results - last 24 hr 05/26/25 05/26/25 05/26/25 16:34 18:25 21:00 WBC 7.9 RBC 3.48 L Hgb 10.0 L Hct 31.2 L MCV 89.7 MCH 28.7 MCHC 32.1 RDW 16.6 H Plt Count 210 MPV 10.0 Immature Gran % (Auto) 0.4 Neut % (Auto) 73.9 H Lymph % (Auto) 15.6 L Murray % (Auto) 6.6 Eos % (Auto) 2.5 Baso % (Auto) 1.0 Lymph # (Auto) 1.2 Murray # (Auto) 0.5 Eos # (Auto) 0.2 Baso # (Auto) 0.1 Abs Immat Gran (auto) 0.03 Absolute Neuts (auto) 5.8 Absolute Nucleated RBC 0.000 Nucleated RBC % (auto) 0.0 Sodium 138 Potassium 4.9 Chloride 111 H Carbon Dioxide 15 L Anion Gap 17 BUN 86 H Creatinine 7.31 H* Estim Creat Clear Calc 9.9 Estimated GFR 8 POC Glucose 92 92 Random Glucose 112 Calcium 8.2 L Total Bilirubin 0.3 AST 14 ALT 6 Alkaline Phosphatase 65 Total Protein 7.0 Albumin 3.2 L Urine Color Urine Appearance Urine pH Ur Specific [place] Urine Protein Urine Glucose (UA) Urine Ketones Urine Blood Urine Nitrite Ur Leukocyte Esterase Urine RBC Urine WBC Ur Squamous Epith Cells Urine Bacteria Hyaline Casts 05/26/25 05/27/25 05/27/25 Unknown 06:07 07:09 WBC 9.1 RBC 3.09 L Hgb 8.8 L Hct 27.8 L MCV 90.0 MCH 28.5 MCHC 31.7 RDW 16.4 H Plt Count 182 MPV 11.2 Immature Gran % (Auto) 0.4 Neut % (Auto) 64.6 Lymph % (Auto) 20.8 Murray % (Auto) 7.6 Eos % (Auto) 5.4 H Baso % (Auto) 1.2 Lymph # (Auto) 1.9 Murray # (Auto) 0.7 Eos # (Auto) 0.5 H Baso # (Auto) 0.1 Abs Immat Gran (auto) 0.04 H Absolute Neuts (auto) 5.8 Absolute Nucleated RBC 0.000 Nucleated RBC % (auto) 0.0 Sodium 135 Potassium 5.2 H Chloride 111 H Carbon Dioxide 13 L Anion Gap 16 BUN 85 H Creatinine 7.15 H* Estim Creat Clear Calc 10.3 Estimated GFR 8 POC Glucose 84 Random Glucose 89 Calcium 7.6 L D Total Bilirubin AST ALT Alkaline Phosphatase Total Protein Albumin Urine Color Yellow Urine Appearance Clear Urine pH 6.0 Ur Specific [place] 1.015 Urine Protein >=1000 (4+) H Urine Glucose (UA) 500 H Urine Ketones Negative Urine Blood Negative Urine Nitrite Negative Ur Leukocyte Esterase Negative Urine RBC 0-2 Urine WBC 0-5 Ur Squamous Epith Cells 0-2 Urine Bacteria None Seen Hyaline Casts 0-2 05/27/25 11:09 WBC RBC Hgb Hct MCV MCH MCHC RDW Plt Count MPV Immature Gran % (Auto) Neut % (Auto) Lymph % (Auto) Murray % (Auto) Eos % (Auto) Baso % (Auto) Lymph # (Auto) Murray # (Auto) Eos # (Auto) Baso # (Auto) Abs Immat Gran (auto) Absolute Neuts (auto) Absolute Nucleated RBC Nucleated RBC % (auto) Sodium Potassium Chloride Carbon Dioxide Anion Gap BUN Creatinine Estim Creat Clear Calc Estimated GFR POC Glucose 108 Random Glucose Calcium Total Bilirubin AST ALT Alkaline Phosphatase Total Protein Albumin Urine Color Urine Appearance Urine pH Ur Specific [place] Urine Protein Urine Glucose (UA) Urine Ketones Urine Blood Urine Nitrite Ur Leukocyte Esterase Urine RBC Urine WBC Ur Squamous Epith Cells Urine Bacteria Hyaline Casts Discharge Plan Discharge Anticipated Discharge Date/Time: 05/27/25 11:49 Patient Disposition: Home, Self-Care Discharge Diagnosis: CKD 4 Referrals: [facility]ARC[facility] [Outside] - 1 Week Michelle Long MD [Primary Care Provider, Medical] - 1 Week Discharge Medications: Continued atorvastatin 10 mg tablet 10 mg PO DAILY insulin lispro [Humalog KwikPen Insulin] 100 unit/mL insulin pen See Protocol SUBCUT QIDACHS PRN (Reason: Hypoglycemia) Protocol: Insulin Correction Scale Less than or equal to 110 ---- Give (units): 0 111 to 150 Give (units): 0 151 to 200 Give (units): 2 201 to 250 Give (units): 4 251 to 300 Give (units): 6 301 to 350 Give (units): 8 Greater than 350 Give (units): 10 Call MD if Blood Glucose > : 350 Lokelma 10 gram powder in packet 10 g PO SUWE Rx Instructions: Take twice weekly Thursday and Thursday (DME) FreeStyle Lite Strips Strip Qty: 100 0RF Rx Instructions: Test four times a day or as directed. (DME) blood-glucose meter [FreeStyle Lite Meter] Kit Qty: 1 0RF Rx Instructions: As Directed (DME) pen needle, diabetic 32 gauge x 1/4 needle Qty: 100 0RF Rx Instructions: Use four times a day or as directed. (DME) lancets [FreeStyle Lancets] 28 gauge [facility] Qty: 100 0RF Rx Instructions: Test four times a day or as directed. furosemide [Lasix] 20 mg tablet 20 mg PO DAILY Qty: 30 0RF dapagliflozin propanediol [Farxiga] 10 mg tablet 10 mg PO DAILY finasteride 5 mg tablet 5 mg PO DAILY tamsulosin 0.4 mg capsule 0.4 mg PO DAILY metoprolol succinate 100 mg tablet extended release 24 hr 100 mg PO DAILY aspirin 81 mg tablet,chewable 1 tab PO DAILY Incruse Ellipta 62.5 mcg/actuation blister with device 1 inh inhalation DAILY Xarelto 2.5 mg tablet 2.5 mg PO BID hydralazine 25 mg tablet 50 mg PO TID PRN (Reason: Hypertension) sodium bicarbonate 650 mg tablet 650 mg PO TID amlodipine 5 mg tablet 5 mg PO DAILY Qty: 90 1RF Rx Instructions: dose reduced Discharge Orders: Discharge Order (Routine); Ordered 05/27/25 Ordered By: Robby Renee Diet: Advance to usual diet Activity on Discharge: As tolerated Stand Alone Forms: Patient Portal Discharge page Print Language: Turkish Care Plan Goals: Resume all medicines as taken prior to hospitalization Health Concerns: Follow up with your refurbish technician as scheduled Plan of Treatment: Follow up with the PCP as scheduled Assessment: See discharge summary
[2025-05-27 12:57] VITALS: BP 166/84; PULSE 82; RESP 18; TEMP 36; O2SAT 94
--- NOTE | 2025-05-27 13:20 | PC.NURSE ---
Discharge instructions reviewed with patient. Patient had no questions. Patient reported that he wants to go home and that he feels safe at home. 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
[2025-05-27 15:37] VITALS: BP 158/75; PULSE 79; RESP 16; TEMP 36; O2SAT 98
[2025-05-27] MEDS: Metoprolol Succinate ER 100 MG TAB.ER.24H PO (15:43)
[2025-05-27 16:26] LABS: Glucose, Whole Blood 128 mg/dL (60-115)
[2025-05-27 16:35] VITALS: BP 168/82; PULSE 77; RESP 16; TEMP 36.1; O2SAT 99
== END 2025-05-27 16:38 | disposition home or self-care (01) | DRG 683 ==
LOC: HO.ED 19:08 → HO.EDOVER 19:51 → HO.S3 21:02
PROVIDERS: Admitting Provider Student in an Organized Health Care Education/Training Program; Emergency Provider Emergency Medicine; PCP Internal Medicine; Visit Provider Hospitalist
DX: I12.0 Hypertensive chronic kidney disease with stage 5 chronic kidney disease or end stage renal disease (principal); J96.11 Chronic respiratory failure with hypoxia; N18.5 Chronic kidney disease, stage 5; Z59.811 Housing instability, housed, with risk of homelessness; G47.33 Obstructive sleep apnea (adult) (pediatric); D63.1 Anemia in chronic kidney disease; N40.0 Benign prostatic hyperplasia without lower urinary tract symptoms; J44.9 Chronic obstructive pulmonary disease, unspecified; E11.51 Type 2 diabetes mellitus with diabetic peripheral angiopathy without gangrene; I48.0 Paroxysmal atrial fibrillation; E11.22 Type 2 diabetes mellitus with diabetic chronic kidney disease; Z89.511 Acquired absence of right leg below knee; Z79.4 Long term (current) use of insulin; Z79.01 Long term (current) use of anticoagulants; Z79.82 Long term (current) use of aspirin; Z79.899 Other long term (current) drug therapy
CPT/HCPCS: 36415; 80048; 80053; 81001; 82947; 85025; 93005; 94640; 99221; 99285

== ENCOUNTER → 2025-05-26 19:13 | Outpatient (BNV) | payer OTHER, SELFPAY | PROVIDERS: Admitting Provider Student in an Organized Health Care Education/Training Program; Emergency Provider Emergency Medicine; PCP Internal Medicine; Visit Provider Student in an Organized Health Care Education/Training Program | DX: Z60.9 Problem related to social environment, unspecified (principal); N18.5 Chronic kidney disease, stage 5; E87.20 Acidosis, unspecified | CPT/HCPCS: 99222 ==

== ENCOUNTER → 2025-06-05 23:59 | Outpatient (BNV) | payer OTHER, SELFPAY | PROVIDERS: Visit Provider Internal Medicine Nephrology | DX: N18.6 End stage renal disease (principal) | CPT/HCPCS: 90961 ==

== ENCOUNTER 2025-06-08 09:56 | Inpatient (IN) | payer OTHER, SELFPAY ==
[2025-06-08] VITALS (7 sets, daily range): BP systolic 137–160; BP diastolic 55–65; PULSE 72–88; RESP 16–20; TEMP 36.6–37; O2SAT 93–96; BMI 22.7; BMI 22.1
--- NOTE | ~2025-06-08 | XR_ITS ---
EXAMINATION: XR CHEST CLINICAL INFORMATION: SOB COMPARISON: 04/19/2025. TECHNIQUE: 2 views of the chest were obtained. FINDINGS: There is cardiac enlargement. There is vascular congestion in the hilar regions. Aortic mural calcifications. There is diffuse interstitial and alveolar pulmonary edema present. There are layering small left greater than right pleural effusions. There are underlying left greater than right bibasilar parenchymal consolidations, presumably passive atelectasis although pneumonia is not excluded. There are air bronchograms in the left lower lobe. There is no perceptible pneumothorax. There is no focal osseous or soft tissue abnormality. XR/XR chest 2V IMPRESSION: 1. Cardiomegaly with interstitial and alveolar pulmonary edema, small layering left greater than right effusions and basilar parenchymal opacities, likely passive atelectasis. Superimposed pneumonia is not excluded in the appropriate clinical context. Electronically signed by: Talat Sky MD 06/08/2025 11:50 AM EDT
--- NOTE | ~2025-06-08 | MR_ITS ---
EXAM: MRI of the left foot was performed without and with IV contrast TECHNIQUE: Multiplanar multisequence MR imaging was performed through the left foot before and after IV contrast. Contrast: 7.5 mL Gadavist INDICATION: Osteomyelitis PRIOR: X-ray from one day earlier FINDINGS: Lisfranc ligament: Intact Soft tissues: There is mild fatty streaking of foot musculature. There is low level edema. Musculature without enhancement. There is edema with enhancement of the soft tissues in the fourth webspace. There is ulceration in the soft tissues lateral to the distal third fifth metatarsal measuring 13 x 27 mm (CC by AP). Ulceration extends to bone. There is a deep ulceration in the soft tissues distal to the amputation site through the mid first metatarsal, lateral to the second MTP joint. Defect measures 9 mm wide and tracks plantar to the second MTP joint and into the dorsal second web space. There is complex fluid or debris and gas within the defect with peripheral enhancement communicating with the second MTP joint capsule. Bones/Marrow: First ray: Transmetatarsal amputation has been performed through the first metatarsal. The distal end of first metatarsal demonstrates decreased signal on T1 imaging, increased signal fluid sensitive sequences, with concordant enhancement. Second ray: There is replacement of marrow signal in the second proximal phalanx extending from the base to the neck region. There is decreasing on T1 imaging, increased signal fluid sensitive sequences, and peripheral enhancement measuring 12 mm anterior-posterior concerning for an intraosseous abscess. There are erosions involving the articular surface of the second metatarsal head. Marrow shows decreased T1 signal, increased signal lucency sequences, and concordant enhancement in the distal 2.8 cm of the metatarsal. Plantar plate complex is ill-defined. Third MTP joint demonstrates a joint effusion. Plantar plate is intact. There is decreased T1 signal, increased signal on fluid sensitive sequences, and mild concordant enhancement of the metatarsal head extending to the neck region. Fourth ray: There is no joint effusion. The plantar plate is intact. There is focal marrow signal change involving the dorsal base of the proximal phalanx. There is decreased signal on T1 imaging, increased signal on fluid sensitive sequences, and concordant enhancement. Fifth ray: There is artifact related to metal distorting and partially obscuring the central and medial fifth metatarsal head and neck. No joint effusion is evident. Plantar plate is grossly intact. The lateral head and neck of the fifth metatarsal demonstrates signal on T1 imaging, increased signal lucency sequences, and hyperenhancement. There is a moderate effusion involving the bare area of the lateral joint margin Plantar base of the proximal phalanx demonstrates subtle decreased signal on T1 imaging, minimal increased signal on fluid sensitive sequence, and minimal enhancement. There is trace edema and hyperenhancement along the periosteum of the fifth metatarsal extending through the middle third diaphysis. MR/MR foot LT wo/w con IMPRESSION: Multifocal osteomyelitis and second MTP joint septic arthritis and second proximal phalanx intraosseous abscess. There is evidence of osteomyelitis involving the distal end of the first metatarsal adjacent to the site of previous amputation. There is ulceration in the dorsal medial soft tissues that extends into the second MTP joint where there is a complex effusion with suspected intraosseous abscess involving the proximal half the proximal phalanx and osteomyelitis involving the distal diaphysis and head of the second metatarsal with erosive changes. The plantar plate is not well-demonstrated and a chronically torn versus destructive changes related to septic arthritis. There are changes of osteoarthritis involving the head and neck of the third metatarsal. Possible small focus of osteomyelitis involving the dorsal base of the fourth proximal phalanx. Changes consistent with osteoarthritis involving the plantar base of the proximal phalanx and the distal fifth metatarsal with evidence of periosteitis extending to the middle third metatarsal diaphysis. Electronically signed by: Tyron Deleon MD 06/09/2025 01:50 PM EDT
--- NOTE | ~2025-06-08 | XR_ITS ---
EXAMINATION: XR FOOT, LEFT CLINICAL INFORMATION: concern for osteomyelitis COMPARISON: February 20, 2025 TECHNIQUE: AP, lateral, and oblique views of the left foot. FINDINGS: There is mild generalized osteopenia. Since prior examination, there has been further amputation of the first ray. Amputation site is now through the region of the first metatarsal neck. There are new erosions with destruction of the head and neck region of the second metatarsal and medial base of the proximal phalanx. There is also loss of the cortical white line of the third metatarsal head medially. There is osteopenia of the fourth metatarsal head with loss of the cortical white line laterally. There is also periarticular osteopenia involving the fifth MTP joint with loss of the cortical white line of the head, neck, and distal metaphysis laterally and the head and neck region medially. There is also mild irregularity of the lateral base of the fifth proximal phalanx. There is ulceration of the soft tissues lateral to the fifth metatarsal head and neck. Severe vascular calcification is noted in the foot. XR/XR foot LT min 3V IMPRESSION: Suspected osteomyelitis with aggressive destruction involving the head and neck of the second metatarsal, base of the second proximal phalanx, margins of the third and fourth metatarsal heads, and head, neck, and distal metaphysis of the fifth metatarsal and possibly the lateral base of the proximal phalanx. Differential considerations would include inflammatory arthropathy such as rheumatoid arthritis which is less likely given the rapid progression since the prior study 4 months ago as well as the new soft tissue ulceration lateral to the distal half of the fifth metatarsal. Electronically signed by: Tyron Deleon MD 06/08/2025 11:58 AM EDT
--- NOTE | ~2025-06-08 | IR_ITS ---
PROCEDURE: IR INSERTION OF TUNNEL CATHETER CLINICAL INFORMATION: Permacatheter for dialysis. Renal failure. COMPARISON: None available. TECHNIQUE: Following explaining ultrasound and fluoroscopy-guided placement of right permacatheter procedure, benefits and risk, a written consent was obtained. Patient was placed supine on angiography table and preliminary ultrasound imaging was obtained through the neck. An optimal site was selected, marked on the skin. The area was cleaned and draped in usual sterile manner. 1% lidocaine was administered puncture site. Under sterile ultrasound guidance a singlewall needle was advanced and placed in the jugular vein. After observing venous return a thin guidewire was placed and needle withdrawn. A 5 [place] dilator sheath was placed over the guidewire and the entire unit was anchored to the drape with hemostat. Approximately 1 gauze length away from the right neck incision and the anterior chest wall one percent lidocaine was administered. A small skin incision was performed and a tunneler attached to the permacatheter was tunneled subcutis 3 from the right anterior chest wall to the right anterior neck incision. The tunnel catheter was pulled through the neck incision. The tunneler was disconnected to the catheter. At the neck the guidewire and dilator were removed. 8 0.035 J-wire was advanced through the catheter under fluoroscopy and placed in the IVC. The 5 [place] catheter was removed and the tract dilated up to 14 [place]. A 14.5 [place] permacatheter was inserted through the peel-away sheath. The peel-away sheath was removed as the catheter was advanced. A single image was obtained over the right anterior chest wall documenting the permacatheter tip tip in mid to distal SVC. The ports were flushed with saline. Patient was to be guidelines today and stylet patient was injected. Sterile dressing applied post procedure. Patient tolerated procedure extremely well. Conscious sedation was given during exam and patient monitored by the higher nurse and IR physician. All elements of maximal sterile barrier technique followed including use of cap, mask, sterile gown, sterile gloves, a sterile full body drape and hand hygiene. Also followed skin preparation with 2% chlorhexidine for cutaneous antisepsis, and sterile ultrasound preparation with sterile gel and probe cover when applicable. FINDINGS: On preliminary ultrasound imaging the jugular vein is widely patent. Fluoroscopy guided 14.5 [place] 23 cm long permacatheter placement with its tip in mid to distal SVC ready for use. IR/IR cvc insert central tunnel IMPRESSION: Successful ultrasound and fluoroscopy-guided placement of a 23 cm long 14.5 [place] permacatheter, ready for use. Electronically signed by: Delgado Nina MD 06/14/2025 11:41 AM EDT
--- NOTE | ~2025-06-08 | XR_ITS ---
CLINICAL HISTORY: sob Chest radiograph, 1 view Comparison: CR/[place]/SR - XR CHEST 2 VIEWS - 06/08/25 11:41 EDT Findings: The heart is not enlarged. Aortic arch calcifications. Pulmonary vascularity is prominent and indistinct. Bilateral mid and lower lung zone airspace opacities. Left worse than right costophrenic angle blunting and mild thickening of the minor fissure. No pneumothorax. IMPRESSION: Bilateral mid and lower lung zone airspace disease with left larger than right pleural effusions and pulmonary vascular congestion. Overall appearance is worsened compared to 06/08/2025. This document has been electronically signed by: Mikey Ravi DO on 06/11/2025 10:27:15
--- NOTE | 2025-06-08 11:17 | ED_ITS ---
HPI - General Adult General Chief complaint: Dyspnea Stated complaint: DIFFICULTY BREATHING Time Seen by Provider: 06/08/25 11:17 Source: patient and EMS Mode of arrival: EMS Limitations: no limitations History of Present Illness ED Provider: Clementine Delgado PA-C HPI narrative: Patient is a 65 year old assigned at male with a history of CKD stage 5 NOT being dialyzed, atrial fibrillation on Xarelto, hypertension, BPH, chronic hypoxemic respiratory failure due to COPD, WENDY, PVD status post right BKA, anemia of chronic kidney disease, insulin-dependent type 2 diabetes mellitus, congestive heart failure with reduced ejection fraction, S. aureus bacteremia, amputation of left great toe presenting to the emergency department today with shortness of breath and left foot pain s/p left great toe amputation. Patient reports new onset SOB and difficulty breathing that started 1 day ago. Patient reports he used his home inhaler without any relief. Patient also reports a left great toe amputation recently in the past 3 months and ongoing pain in the area. Patient reports he is not on home oxygen. Patient denies fever, chills, recent illness, dizziness, lightheadedness, chest pain, palpitations, nausea, vomiting or other symptoms. Onset (ago): day(s) (1 day) Related Data Home Medications ?Medication ?Instructions ?Recorded ?Confirmed aspirin 81 mg chewable tablet 1 tab PO DAILY 12/19/24 05/26/25 dapagliflozin propanediol 10 mg 10 mg PO DAILY 5 05/26/25 tablet (Farxiga) finasteride 5 mg tablet 5 mg PO DAILY 12/19/2405/26 metoprolol succinate 100 mg 100 mg PO DAILY 12/19/24 0 05/26/25 tablet,extended release 24 hr tamsulosin 0.4 mg capsule 0.4 mg PO DAILY 12/19/24 umeclidinium 62.5 mcg/actuation 1 inh inhalation DAILY 12/19/24 05/26/25 blister powder for inhalation (Incruse Ellipta) hydralazine 25 mg tablet 50 mg PO TID PRN Hypertensio n 12/30/24 05/26/25 rivaroxaban 2.5 mg tablet (Xarelto) 2.5 mg PO BID 12/0405/26/25 sodium bicarbonate 650 mg tablet 650 mg PO TID 5 05/26/25 atorvastatin 10 mg tablet 10 mg PO DAILY 05/26/2505/06 insulin lispro 100 unit/mL See Protocol subcut QIDACHS PRN 05/26/25 05/26/25 subcutaneous pen (Humalog KwikPen Hypoglycemia (U-100) Insulin) sodium zirconium cyclosilicate 10 10 g PO SUWE 5 05/26/25 gram oral powder packet (Lokelma) amlodipine 10 mg tablet 10 mg PO DAILY 06/08/2501/27 Previous Rx's ?Medication ?Instructions ?Recorded blood sugar diagnostic (FreeStyle #100 ea 03/02/25 Lite Strips) blood-glucose meter (FreeStyle #1 ea 03/02/25 Lite Meter kit) lancets 28 gauge (FreeStyle #100 ea 03/02/25 Lancets) pen needle, diabetic 32 gauge x #100 ea 03/02/2510/08 furosemide 20 mg tablet (Lasix) 20 mg PO DAILY #30 tab s 04/25/25 amlodipine 5 mg tablet 5 mg PO DAILY #90 tabs 05/22 Allergies Allergy/AdvReac Type Severity Reaction Status Date / Time morphine Allergy Hallucinati Verified 06/08/25 10:07 ons bupropion AdvReac Hallucinati Verified 06/08/25 10:07 ons Review of Systems 2 Constitutional: Constitutional: Reports as per HPI Eyes: Eyes: Reports as per HPI ENT: Reports as per HPI Cardiovascular: Cardiovascular: Reports as per HPI Respiratory: Respiratory: Reports as per HPI Gastrointestinal: Gastrointestinal: Reports as per HPI Genitourinary: Genitourinary: Reports as per HPI Musculoskeletal: Musculoskeletal: Reports as per HPI Integumentary/Breasts: Skin/Breast: Reports as per HPI Neurologic: Reports as per HPI Psychiatric: Psychiatric: Reports as per HPI Endocrine: Endocrine: Reports as per HPI Hematologic/Lymphatic: Hematologic/Lymphatic: Reports as per HPI Allergic/Immunologic: Allergic/Immunologic: Reports as per HPI PMF Past Medical History Attestation statement: The following information was validated with the patient. Source: old records reviewed and nursing notes reviewed Medical History Chronic kidney disease (CKD), stage 5 Metabolic acidosis CKD (chronic kidney disease) stage 5, GFR less than 15 ml/min Anemia in chronic kidney disease (CKD) Hypertension CKD (chronic kidney disease) stage 4, GFR 15-29 ml/min Fluid overload Acute and chronic respiratory failure Sepsis Acute dehydration New onset of congestive heart failure Pneumonia Urinary urgency Urinary tract infection Urinary hesitancy Tubular adenoma of colon Smoker Seborrheic keratoses SND (sensorineural deafness) Right BKA infection Peripheral vascular disease WENDY (obstructive sleep apnea) Microalbuminuria Lung nodule seen on imaging study Lightheadedness Latent tuberculosis LVH (left ventricular hypertrophy) Abnormal PFTs Hyponatremia Hypertensive retinopathy of both eyes Hyperkalemia Hepatitis C Hearing loss of both ears Erectile dysfunction Cataract CKD (chronic kidney disease) Bladder wall thickening BPH (benign prostatic hyperplasia) Anticoagulated Anemia Peripheral neuropathy Diabetes mellitus, type II CVA (cerebral vascular accident) Adrenal nodule Kidney cysts Surgical History Hx of right BKA Family History Family History Brother Diabetes Mother Diabetes Father Diabetes Social History Social History Household Members: Spouse Household Members Other:: ex- Housing: Apartment Do you presently have visiting nurse or other home services: Yes Alcohol intake: never Patient Tobacco Use Status: Former Tobacco user Tobacco use type: Cigarette Smoked in Last 30 Days: No e-Cigarette/Vaping Use: Former Use Use of substances other than those prescribed or required for medical reasons: No Advance Directives: No Advance Directives Information Provided: Yes Do you have a plan to hurt others: No Plan service: No Physical Exam ED Vital Signs: Vital Signs - 24 hr 06/08/25 10:05 06/08/25 10:08 06/08/25 10:08 Temperature 98.6 F 98.6 F Pulse Rate 76 76 Respiratory Rate 20 20 20 Blood Pressure 137/55 L 137/55 L Pulse Oximetry 95 95 Oxygen Delivery Method Nasal Cannula Nasal Cannula 06/08/25 11:45 Temperature Pulse Rate 72 Respiratory Rate 16 Blood Pressure Pulse Oximetry Oxygen Delivery Method BMI result Body Mass Index 22.7 Const General: cooperative, no acute distress, alert and awake Nutritional Appearance: well nourished Orientation/consciousness: patient oriented x3 HENMT Head: Yes normal to inspection and Yes atraumatic Ears: hearing grossly normal bilaterally and external ears normal General nose exam: Normal external nose present, no nasal discharge noted and no epistaxis Face and sinus: Yes normal facial exam, No abrasion and No laceration Mouth: Normal oral and palatal mucosa present, no drooling and no muffled voice Eyes General: appearance normal, both eyes and all related structures Periorbital: periorbital findings normal Eyelids: Yes eyelids normal Conjunctivae: conjunctivae normal Pupils: Equal, round and reactive pupils present EOM: EOMs intact bilaterally Neck Neck: Yes normal visual inspection and Yes full ROM Resp Effort & Inspection: able to speak in complete sentences and labored Neuro General: patient oriented x3, moves all extremities and CN's II-XI intact bilaterally Cranial nerves: Yes Equal, round and reactive pupils present Cognition (Neuro): normal cognition Extrem Other: Psych Appearance: grossly normal Mental Status: mental status grossly normal Affect: normal affect Attitude: cooperative Thought process: Normal thought process present Thought content: Normal thought content present Insight: Good insight present (Psych) Medications Administered Discontinued Medications Generic Name Dose Route Start Last Admin Trade Name Austinq PRN Reason Stop Dose Admin Albuterol/Ipratropium 3 ml 06/08/25 11:32 06/08/25 11:44 Albuterol/Iprat 2.5/0.5mg 3 Ml Ampul.Neb INHALE 06/08/25 11:33 3 ml ONCE ONE Administration Piperacillin Sod/Tazobactam 50 mls @ 100 mls/hr 06/08/25 12:09 06/08/25 12:39 Sod 3.375 gm/ Sodium Chloride IV 06/08/25 12:38 Infused ONCE ONE Infusion Vancomycin HCl 2,000 mg in 500 mls @ 250 mls/hr 06/08/25 13:00 06/08/25 14:50 Vancomycin/Ns IV 06/08/25 14:59 Infused ONCE ONE Infusion Methylprednisolone Sodium Succinate 60 mg 06/08/25 11:29 06/08/25 12:29 Methylprednisolone Sod Succ 125 Mg/2 Ml Vial IVPUSH 06/08/25 11:30 60 mg ONCE ONE Administration Sodium Zirconium Cyclosilicate 10 gm 06/08/25 14:17 06/08/25 15:13 Sodium Zirconium Cyclosilicate 10 Gm Powd.Pack PO 06/08/25 14:18 10 gm ONCE ONE Administration Procedures Procedure Narrative Procedure Narrative: 15:30Osmel Stanton MD: I was asked to participate in the care of this patient only to assist in obtaining emergent dialysis access as the patient has severe acute kidney injury needing dialysis and interventional radiology unavailable at this time. The patient is awake alert oriented I took a verbal consent and placed a right 12 cm, 12 Martiniquais Mahurkar catheter without complication see procedure note below: Procedure Note Procedure: Central Venous Catheter Insertion- Right Femoral, HD Cath Indication: Needs emergent dialysis Performed by: Osmel Stanton MD [place] Protocol: a time out was performed and the correct patient and site were verified The patient was placed in Trendelenburg. Anesthesia was obtained with local infiltration of 5 ml 1% lidocaine. Hand hygiene was performed prior to procedure. Chlorhexidine used to prep the skin and dried for 2 minutes prior to skin puncture. Traffic was limited during the procedure. Full barrier precaution utilized. The right femoral vein was cannulated. A 12 croatian Mahulkar lumen catheter was placed using the Seldinger technique. All lines flushed and jo ann nonpulsatile dark venous blood appropriately. The line was secured with sutures, A biopatch and dressing was placed over the site. The patient tolerated the procedure well. Tip resides in external iliac vein right Post-Procedure Diagnosis: same as indication Complications: none Estimated Blood Loss: minimal Specimens Removed: no Prosthetic devices/implants: no Box Tender(s): Amy ARAGON student CPT: 82012; 71973 Medical Decision Making Medical Decision Making MDM Narrative: Patient is a 65 year old assigned at male with a history of CKD stage 5 NOT being dialyzed, atrial fibrillation on Xarelto, hypertension, BPH, chronic hypoxemic respiratory failure due to COPD, WENDY, PVD status post right BKA, anemia of chronic kidney disease, insulin-dependent type 2 diabetes mellitus, congestive heart failure with reduced ejection fraction, S. aureus bacteremia, amputation of left great toe presenting to the emergency department today with shortness of breath and left foot pain s/p left great toe amputation. Patient's physical exam was as noted in the physical exam portion of this note. Patient s/p right BKA and left great toe amp. Foul smelling discharge from the left great toe amp site. Patient's blood work showed a chronic anemia of hgb of 8.2 and hct of 25.3, elevated potassium of 6.2, BUN of 90, and CR of 9.25. Patient's EKG was unremarkable. Patient's left foot x-ray showed evidence of osteomyelitis. Patient's chest XR showed evidence of pneumonia. I spoke with Dr. Ruiz, the patient's welt pocket machine operator, who recommended medical admission and dialysis. Unfortunately, IR was unable to be reached to have a dialysis catheter placed so my attending physician, Dr. Osmel Stanton placed a dialysis catheter in the emergency department. I spoke with the hospitalist team who agreed to admission. Patient received IV Vancomycin and Zosyn. Patient's clinical presentation is not consistent with sepsis (@1358). I explained my physical exam findings as well as all test results to the patient. I answered all questions asked by the patient. Patient verbalized agreement and understanding with this treatment plan and admission. Differential Diagnosis Differential Diagnoses: The differential diagnosis associated with the presentation includes COPD exacerbation Left foot osteomyelitis Renal failure requiring dialysis Hyperkalemia Admission/Observation Consideration of admission/observation: Escalation of care including admission/observation considered Patient admitted as noted in the MDM Rationale portion of this note. Consult Healthcare Provider Management of the patient was discussed with: Hospitalist (agreed to admission as noted in the MDM Rationale portion of this note. ) and Online Banking Specialist (spoke with the nephrology team as noted in the MDM Rationale portion of this note. ) Lab Data [facility] Lab Attestation statement: I reviewed the patient's lab results. My interpretation of these results are in the MDM Rationale portion of this note. 06/08/25 12:26 06/08/25 12:26 Labs: Lab Results 06/08/25 06/08/25 06/08/25 Range/Units 12:25 12:26 12:39 WBC 8.2 (4.8-10.8) X10*3/uL RBC 2.81 L (4.60-5.80) X10*6/uL Hgb 8.2 L (14.0-18.0) g/dl Hct 25.3 L (42.0-52.0) % MCV 90.0 (80.0-98.0) fL MCH 29.2 (27.0-33.0) pg MCHC 32.4 (31.0-36.0) g/dl RDW 16.4 H (11.0-16.0) % Plt Count 203 (160-400) X10*3/uL MPV 10.6 (9.4-12.4) fL Immature Gran % (Auto) 0.5 H (0.0-0.4) % Neut % (Auto) 72.9 (45-73) % Lymph % (Auto) 16.6 L (20-40) % [place] % (Auto) 5.6 (2-11) % Eos % (Auto) 3.2 (0-4) % Baso % (Auto) 1.2 (0-2) % Lymph # (Auto) 1.4 (1.2-4.9) X10*3/uL [place] # (Auto) 0.5 (0.1-1.2) X10*3/uL Eos # (Auto) 0.3 (0.0-0.4) X10*3/uL Baso # (Auto) 0.1 (0.0-0.2) X10*3/uL Abs Immat Gran (auto) 0.04 H (0.00-0.03) X10*3/uL Absolute Neuts (auto) 6.0 (2.0-8.3) x10*3/uL Absolute Nucleated RBC 0.000 (0.0-0.012) X10*3/uL Nucleated RBC % (auto) 0.0 (0.0-0.2) /100WBC PT 14.0 H (10.9-12.4) SEC INR 1.2 H (0.9-1.1) VBG pH 7.30 L (7.32-7.43) VBG pCO2 24 mmHg VBG pO2 112 mmHg VBG HCO3 12 L (22-26) mmol/L VBG O2 Saturation 99.0 % VBG Base Excess -12.3 mmol/L Sodium 136 (135-145) mmol/L Potassium 6.2 H* (3.3-5.1) mmol/L Chloride 113 H (96-108) mmol/L Carbon Dioxide 13 L (22-29) mmol/L Anion Gap 16 (12-20) BUN 90 H (9-16) mg/dL Creatinine 9.25 H* (0.5-1.4) mg/dL Estim Creat Clear Calc 8.4 Estimated GFR 6 Random Glucose 81 (60-115) mg/dL Lactic Acid 0.6 (0.5-2.0) mmol/L Calcium 7.8 L (8.4-10.2) mg/dL Magnesium 2.1 (1.6-2.6) mg/dL Total Bilirubin 0.2 (0.0-1.0) mg/dL AST 15 (5-37) U/L ALT 7 (0-40) U/L Alkaline Phosphatase 65 (39-117) U/L Troponin I High Sens 26.7 D (<3.5-35.0) ng/L B-Natriuretic Peptide 3447 H (<100) pg/mL Total Protein 6.7 (6.5-8.0) g/dL Albumin 3.1 L (3.5-5.0) g/dL Independent Interpretation I performed an independent interpretation of an: EKG and Plain X-Ray Interpretation: My interpretation is in agreement with the radiologist's impression of these imaging studies. L EXAMINATION: XR CHEST CLINICAL INFORMATION: SOB COMPARISON: 04/19/2025. TECHNIQUE: 2 views of the chest were obtained. FINDINGS: There is cardiac enlargement. There is vascular congestion in the hilar regions. Aortic mural calcifications. There is diffuse interstitial and alveolar pulmonary edema present. There are layering small left greater than right pleural effusions. There are underlying left greater than right bibasilar parenchymal consolidations, presumably passive atelectasis although pneumonia is not excluded. There are air bronchograms in the left lower lobe. There is no perceptible pneumothorax. There is no focal osseous or soft tissue abnormality. XR/XR chest 2V IMPRESSION: 1. Cardiomegaly with interstitial and alveolar pulmonary edema, small layering left greater than right effusions and basilar parenchymal opacities, likely passive atelectasis. Superimposed pneumonia is not excluded in the appropriate clinical context. Electronically signed by: Talat Sky MD 06/08/2025 11:50 AM EDT Dictated By: Talat Sky MD Signed By: Electronically signed by Talat Sky MD 06/08/25 1150 EXAMINATION: XR FOOT, LEFT CLINICAL INFORMATION: concern for osteomyelitis COMPARISON: February 20, 2025 TECHNIQUE: AP, lateral, and oblique views of the left foot. FINDINGS: There is mild generalized osteopenia. Since prior examination, there has been further amputation of the first ray. Amputation site is now through the region of the first metatarsal neck. There are new erosions with destruction of the head and neck region of the second metatarsal and medial base of the proximal phalanx. There is also loss of the cortical white line of the third metatarsal head medially. There is osteopenia of the fourth metatarsal head with loss of the cortical white line laterally. There is also periarticular osteopenia involving the fifth MTP joint with loss of the cortical white line of the head, neck, and distal metaphysis laterally and the head and neck region medially. There is also mild irregularity of the lateral base of the fifth proximal phalanx. There is ulceration of the soft tissues lateral to the fifth metatarsal head and neck. Severe vascular calcification is noted in the foot. XR/XR foot LT min 3V IMPRESSION: Suspected osteomyelitis with aggressive destruction involving the head and neck of the second metatarsal, base of the second proximal phalanx, margins of the third and fourth metatarsal heads, and head, neck, and distal metaphysis of the fifth metatarsal and possibly the lateral base of the proximal phalanx. Differential considerations would include inflammatory arthropathy such as rheumatoid arthritis which is less likely given the rapid progression since the prior study 4 months ago as well as the new soft tissue ulceration lateral to the distal half of the fifth metatarsal. Electronically signed by: Tyron Deleon MD 06/08/2025 11:58 AM EDT Dictated By: Tyron Deleon MD Signed By: Electronically signed by Tyron Deleon MD 06/08/25 1158 I independently interpreted this EKG and am in agreement with the below findings: Vent. Rate: 69 BPM Atrial Rate: 69 BPM P-R Int: 178 ms QRS Dur: 128 ms QT Int: 444 ms P-R-T Axes: 30 51 202 degrees QTcB Int: 475 ms Normal sinus rhythm Possible Left atrial enlargement Non-specific intra-ventricular conduction block T wave abnormality, consider inferior ischemia T wave abnormality, consider anterolateral ischemia When compared with ECG of 26-May-2025 19:12, No significant change was found DD/ 1208 Radiology Impression Discussion of test interpretation with radiology: I have reviewed the radiologist's reading. Independent Historian Clinical information obtained from an independent historian. History obtained from or confirmed by: EMS (EMS provided additional history and confirmed the history provided by the patient. ) External Record Review External record reviewed: Inpatient record, Office record and Outpatient record Chronic Conditions Patient?s care impacted by: Diabetes Critical Care Time Critical Care Time Critical Care Time: Yes Total Critical Care Time: 49 Attestation: I spent 49 minutes of Critical Care Time with this patient. This does not include time spent on separately reported billable procedures. Discharge Plan Discharge Clinical Impression: Acute hyperkalemia, Renal failure, Osteomyelitis, Pneumonia Patient Disposition: Admitted As Inpatient Interventions: Admission Worksheet (ED) Last Done: 06/08/25 16:06 Print Language: Tristanian
--- NOTE | 2025-06-08 11:18 | ECG_ITS ---
Test Reason : DYSPNEA Blood Pressure : */* mmHG Vent. Rate : 69 BPM Atrial Rate : 69 BPM P-R Int : 178 ms QRS Dur : 128 ms QT Int : 444 ms P-R-T Axes : 30 51 202 degrees QTcB Int : 475 ms Normal sinus rhythm Possible Left atrial enlargement Non-specific intra-ventricular conduction block T wave abnormality, consider inferior ischemia T wave abnormality, consider anterolateral ischemia Abnormal ECG When compared with ECG of 26-May-2025 19:12, No significant change was found Referred By: Clementine Delgado Electronically Signed By: Familia Howell
--- OUTSIDE RECORDS SUMMARY | 2025-06-08 11:30 | XMS_ITS | Encounter Summary ---
Author Organization [facility] Address [address] [place] [address] Care Team Providers Care [address] Freight Name Role Phone Travis Au MD Primary Care Provider [phone] Encounter Details Date Type Department Care Team (Late st Contact Info) Description 10/03/2024 Lab Requisition [facility] - Main Lab [address] [place] [address] Brandon Mckeon MD [address] [place] [address] Hyperkalemia; Hypertensive urgency Social History [...] LAB CHEMISTRY METHOD 10/03/2024 9:47 AM EST [facility] Potassium 5.6(H) 3.5 - 5.5 mmol/L LAB CHEMISTRY METHOD 10/03/2024 9:[address] [facility] Chloride 109 96 - 110 mmol/L LAB CHEMISTRY METHOD 10/03/2024 9:[address] [facility] CO2 20(L) 21 - 32 mmol/L LAB CHEMISTRY METHOD 10/03/2024 9:[address] [facility] Anion Gap 6 3 - 11 LAB CHEMISTRY METHOD 10/03/2024 9:[address] [facility] Glucose 111(H) 70 - 100 mg/dL LAB CHEMISTRY METHOD 10/03/2024 9:[address] [facility] BUN 58(H) 5 - 25 mg/dL LAB CHEMISTRY METHOD 10/03/2024 9:[address] [facility] Creatinine 2.91(H) 0.70 - 1.30 mg/dL LAB CHEMISTRY METHOD 10/03/2024 9:[address] [facility] eGFR 23(L) >=60 mL/min/1. 73m2 LAB CHEMISTRY METHOD 10/03/2024 9:[address] [facility] Comment:Calculation based on the Chronic Kidney Disease Epidemiology Collaboration (CKD-EPI) equation refit without adjustment for race. BUN/Creatinine Ratio 19.9 LAB CHEMISTRY METHOD 10/03/2024 9:[address] [facility] Calcium 8.5 8.5 - 10.5 mg/dL LAB CHEMISTRY METHOD 10/03/2024 9:[address] [facility] AST (SGOT) 14 10 - 42 unit/L LAB CHEMISTRY METHOD 10/03/2024 9:[address] [facility] ALT (SGPT) 20 10 - 60 unit/L LAB CHEMISTRY METHOD 10/03/2024 9:[address] [facility] Alkaline Phosphatase 57 42 - 121 unit/L LAB CHEMISTRY METHOD 10/03/2024 9:[address] [facility] Total Protein 6.5 6.0 - 8.0 g/dL LAB CHEMISTRY METHOD 10/03/2024 9:[address] [facility] Albumin 3.0(L) 3.2 - 5.0 g/dL LAB CHEMISTRY METHOD 10/03/2024 9:47 AM EST [facility] Total Bilirubin 0.2 0.0 - 1.4 mg/dL LAB CHEMISTRY METHOD 10/03/2024 9:[address] [facility] Blood Venous blood specimen / Unknown Venipuncture / Unknown 10/03/2024 5:32 AM EST 10/03/2024 8:56 AM EST us Brandon Mckeon MD LAB BLOOD ORDERABLES Final Resu lt [facility] [address] [place] [address], [place] [phone] * (ABNORMAL) Complete blood count (10/03/2024 5:32 AM EST) WBC 10.1 4.8 - 10.8 K/mcL LAB HEMETOLOGY METHOD 10/03/2024 9:[address] [facility] RBC 3.10(L) 4.50 - 5.50 M/mcL LAB HEMETOLOGY METHOD 10/03/2024 9:[address] [facility] Hemoglobin 9.3(L) 13.5 - 17.5 g/dL LAB HEMETOLOGY METHOD 10/03/2024 9:[address] [facility] Hematocrit 29.4(L) 42.0 - 54.0 % LAB HEMETOLOGY METHOD 10/03/2024 9:[address] [facility] MCV 95.8 79.0 - 98.0 FL LAB HEMETOLOGY METHOD 10/03/2024 9:[address] [facility] MCH 30.3 27.0 - 32.0 pcg LAB HEMETOLOGY METHOD 10/03/2024 9:[address] [facility] MCHC 31.6(L) 32.0 - 37.0 g/dL LAB HEMETOLOGY METHOD 10/03/2024 9:20 AM EST [facility] RDW 13.7 11.0 - 15.0 % LAB HEMETOLOGY METHOD 10/03/2024 9:20 AM EST [facility] Platelets 281 130 - 400 K/mcL LAB HEMETOLOGY METHOD 10/03/2024 9:20 AM EST [facility] MPV 10.4 7.0 - 11.0 FL LAB HEMETOLOGY METHOD 10/03/2024 9:20 AM EST [facility] NRBC 0.0 <1.0 % LAB HEMETOLOGY METHOD 10/03/2024 9:[address] [facility] NRBC Absolute 0.00 <0.10 K/mcL LAB HEMETOLOGY METHOD 10/03/2024 9:20 AM EST [facility] Blood Venous blood specimen / Unknown Venipuncture / Unknown 10/03/2024 5:32 AM EST 10/03/2024 8:56 AM EST us Brandon Mckeon MD LAB BLOOD ORDERABLES Final Resu lt [facility] [address] [place] [address], documented in this encounter Visit Diagnoses Diagnosis Hyperkalemia Hyperpotassemia Hypertensive urgency documented in this encounter Care Teams [address] Freight Relationship Specialty Start Date End Date Travis Au MD [address] [place] [address], [id number] PCP - General Family Medicine 08/22/24 documented as of this encounter
--- OUTSIDE RECORDS SUMMARY | 2025-06-08 11:30 | XMS_ITS | Encounter Summary ---
Author Organization [facility], Address [address] [place] [address] Phone Care Team Providers Care Supervisory Cbp Officer Name Role Phone Michelle Long MD Primary Care Provider [phone] Encounter Details Date Type Department Care Team (Late st Contact Info) Description 11/23/2024 Documentation Only [facility], [address] [place] [address] [place], [place] [address] [place] [address] Social History Tobacco Use Types [...] on filedocumented in this encounter Care Teams Supervisory Cbp Officer Relationship Specialty Start Date End Date Michelle Long MD [address] [place], [place] PCP - General Internal Medicine 10/06/23 documented as of this encounter
--- OUTSIDE RECORDS SUMMARY | 2025-06-08 11:30 | XMS_ITS | Encounter Summary ---
Author Organization [facility] Address [address] [place] [address] Care Team Providers Care Payable Processor Name Role Phone Travis Au MD Primary Care Provider [phone] Encounter Details Date Type Department Care Team (Latest Contact Info) Description 10/25/2024 Lab Requisition [facility] - Main Lab 299 [facility] [place] [address] Brandon Mckeon MD [address] [place] [address] Type 2 diabetes mellitus without [...] V28) documented in this encounter Care Teams Payable Processor Relationship Specialty Start Date End Date Travis Au MD 38 [facility] [address] [place], [phone] PCP - General Family Medicine 08/22/24 documented as of this encounter
--- OUTSIDE RECORDS SUMMARY | 2025-06-08 11:30 | XMS_ITS | Encounter Summary ---
Author Organization [facility], Address [address] [place] [address] Phone Care Team Providers Care Inspector Weights And Measures Name Role Phone Michelle Long MD Primary Care Provider [phone] Encounter Details Date Type Department Care Team (Late st Contact Info) Description 11/10/2023 Documentation Only [facility], [address] [place] [address] [place], [place] [address] [place] [address] Social History Tobacco Use Types [...] on filedocumented in this encounter Care Teams Inspector Weights And Measures Relationship Specialty Start Date End Date Michelle Long MD [address] [place], [place] PCP - General Internal Medicine 10/06/23 documented as of this encounter
--- OUTSIDE RECORDS SUMMARY | 2025-06-08 11:30 | XMS_ITS | Encounter Summary ---
Author Organization [facility] Address [address] [place] [address] Care Team Providers Care Director Hris Name Role Phone Travis Au MD Primary Care Provider [phone] Encounter Details Date Type Department Care Team (Late st Contact Info) Description 09/14/2024 Lab Requisition [facility] - Main Lab 299 [facility] [place] [address] Brandon Mckeon MD [address] [place] [address] Chronic kidney disease, unspecified Social [...] LAB CHEMISTRY METHOD 09/15/2024 9:[address] [facility] Potassium 5.3 3.5 - 5.5 mmol/L LAB CHEMISTRY METHOD 09/15/2024 9:[address] [facility] Chloride 110 96 - 110 mmol/L LAB CHEMISTRY METHOD 09/15/2024 9:[address] [facility] CO2 19(L) 21 - 32 mmol/L LAB CHEMISTRY METHOD 09/15/2024 9:[address] [facility] Anion Gap 9 3 - 11 LAB CHEMISTRY METHOD 09/15/2024 9:[address] [facility] Glucose 98 70 - 100 mg/dL LAB CHEMISTRY METHOD 09/15/2024 9:[address] [facility] BUN 46(H) 5 - 25 mg/dL LAB CHEMISTRY METHOD 09/15/2024 9:[address] [facility] Creatinine 3.02(H) 0.70 - 1.30 mg/dL LAB CHEMISTRY METHOD 09/15/2024 9:[address] [facility] eGFR 22(L) >=60 mL/min/1. 73m2 LAB CHEMISTRY METHOD 09/15/2024 9:[address] [facility] Comment:Calculation based on the Chronic Kidney Disease Epidemiology Collaboration (CKD-EPI) equation refit without adjustment for race. BUN/Creatinine Ratio 15.2 LAB CHEMISTRY METHOD 09/15/2024 9:[address] [facility] Calcium 8.8 8.5 - 10.5 mg/dL LAB CHEMISTRY METHOD 09/15/2024 9:[address] [facility] Blood Venous blood specimen / Unknown Venipuncture / Unknown 09/15/2024 4:53 AM EST 09/15/2024 9:01 AM EST us Brandon Mckeon MD LAB BLOOD ORDERABLES Final Resu lt [facility] [address] [place] [address], [place] [phone] * (ABNORMAL) Complete blood count (09/15/2024 4:53 AM EST) WBC 9.2 4.8 - 10.8 K/mcL LAB HEMETOLOGY METHOD 09/15/2024 9:[address] [facility] RBC 3.00(L) 4.50 - 5.50 M/mcL LAB HEMETOLOGY METHOD 09/15/2024 9:[address] [facility] Hemoglobin 8.9(L) 13.5 - 17.5 g/dL LAB HEMETOLOGY METHOD 09/15/2024 9:[address] [facility] Hematocrit 28.5(L) 42.0 - 54.0 % LAB HEMETOLOGY METHOD 09/15/2024 9:[address] [facility] MCV 95.6 79.0 - 98.0 FL LAB HEMETOLOGY METHOD 09/15/2024 9:[address] [facility] MCH 29.9 27.0 - 32.0 pcg LAB HEMETOLOGY METHOD 09/15/2024 9:[address] [facility] MCHC 31.2(L) 32.0 - 37.0 g/dL LAB HEMETOLOGY METHOD 09/15/2024 9:[address] [facility] RDW 13.8 11.0 - 15.0 % LAB HEMETOLOGY METHOD 09/15/2024 9:[address] [facility] Platelets 217 130 - 400 K/mcL LAB HEMETOLOGY METHOD 09/15/2024 9:[address] [facility] MPV 11.0 7.0 - 11.0 FL LAB HEMETOLOGY METHOD 09/15/2024 9:[address] [facility] NRBC 0.0 <1.0 % LAB HEMETOLOGY METHOD 09/15/2024 9:[address] [facility] NRBC Absolute 0.00 <0.10 K/mcL LAB HEMETOLOGY METHOD 09/15/2024 9:10 AM EST [facility] Blood Venous blood specimen / Unknown Venipuncture / Unknown 09/15/2024 4:53 AM EST 09/15/2024 9:01 AM EST us Brandon Mckeon MD LAB BLOOD ORDERABLES Final Resu lt [facility] ([facility] [address] [place] [address], documented in this encounter Visit Diagnoses Diagnosis Chronic kidney disease, unspecified documented in this encounter Care Teams Director Hris Relationship Specialty Start Date End Date Travis Au MD [address] [place] [address], [phone] PCP - General Family Medicine 08/22/24 documented as of this encounter
--- OUTSIDE RECORDS SUMMARY | 2025-06-08 11:30 | XMS_ITS | Encounter Summary ---
Author Organization [facility] Address [address] [place] [address] Care Team Providers Care Vice President Of Procurement Name Role Phone Travis Au MD Primary Care Provider [phone] Encounter Details Date Type Department Care Team (Late st Contact Info) Description 09/13/2024 Lab Requisition [facility] - Main Lab 299 [facility] [place] [address] Travis Au MD [address] [place] [address] 204 [facility] [phone] Chronic kidney disease, unspecified Social History Tobacco [...] unspecified documented in this encounter Care Teams Vice President Of Procurement Relationship Specialty Start Date End Date Travis Au MD 38 [facility] 204 [facility] [phone] PCP - General Family Medicine 08/22/24 documented as of this encounter
--- OUTSIDE RECORDS SUMMARY | 2025-06-08 11:30 | XMS_ITS | Encounter Summary ---
Author Organization [facility] Address [address] [place] [address] Care Team Providers Care Payer Specialist Name Role Phone Travis Au MD Primary Care Provider [phone] Encounter Details Date Type Department Care Team (Late st Contact Info) Description 10/18/[address] [facility] - Main Lab [address] [place] [address] Travis Au MD [address] [place] [address] 204 [facility] [address] Type 2 diabetes mellitus without complications [...] LAB CHEMISTRY METHOD 10/19/2024 8:44 AM EST [facility] Potassium 4.6 3.5 - 5.5 mmol/L LAB CHEMISTRY METHOD 10/19/2024 8:44 AM [facility] Chloride 109 96 - 110 mmol/L LAB CHEMISTRY METHOD 10/19/2024 8:44 AM [facility] CO2 21 21 - 32 mmol/L LAB CHEMISTRY METHOD 10/19/2024 8:44 AM [facility] Anion Gap 9 3 - 11 LAB CHEMISTRY METHOD 10/19/2024 8:44 AM [facility] Glucose 167(H) 70 - 100 mg/dL LAB CHEMISTRY METHOD 10/19/2024 8:44 AM [facility] BUN 61(H) 5 - 25 mg/dL LAB CHEMISTRY METHOD 10/19/2024 8:44 AM [facility] Creatinine 3.42(H) 0.70 - 1.30 mg/dL LAB CHEMISTRY METHOD 10/19/2024 8:44 AM [facility] eGFR 19(L) >=60 mL/min/1. 73m2 LAB CHEMISTRY METHOD 10/19/2024 8:44 AM [facility] Comment:Calculation based on the Chronic Kidney Disease Epidemiology Collaboration (CKD-EPI) equation refit without adjustment for race. BUN/Creatinine Ratio 17.8 LAB CHEMISTRY METHOD 10/19/2024 8:44 AM [facility] Calcium 8.3(L) 8.5 - 10.5 mg/dL LAB CHEMISTRY METHOD 10/19/2024 8:44 AM [facility] Blood Venous blood specimen / Unknown Venipuncture / Unknown 10/19/2024 5:45 AM EST 10/19/2024 8:08 AM EST us Travis Au MD LAB BLOOD ORDERABLES Final Resul t [facility] [address] [place] [address], * (ABNORMAL) Complete blood count (10/19/2024 5:45 AM EST) [facility] WBC 10.6 4.8 - 10.8 K/mcL LAB HEMETOLOGY METHOD 10/19/2024 8:25 AM [facility] RBC 3.10(L) 4.50 - 5.50 M/mcL LAB HEMETOLOGY METHOD 10/19/2024 8:25 AM [facility] Hemoglobin 9.2(L) 13.5 - 17.5 g/dL LAB HEMETOLOGY METHOD 10/19/2024 8:25 AM [facility] Hematocrit 28.5(L) 42.0 - 54.0 % LAB HEMETOLOGY METHOD 10/19/2024 8:25 AM [facility] MCV 92.2 79.0 - 98.0 FL LAB HEMETOLOGY METHOD 10/19/2024 8:25 AM [facility] MCH 29.8 27.0 - 32.0 pcg LAB HEMETOLOGY METHOD 10/19/2024 8:25 AM [facility] MCHC 32.3 32.0 - 37.0 g/dL LAB HEMETOLOGY METHOD 10/19/2024 8:25 AM [facility] RDW 13.7 11.0 - 15.0 % LAB HEMETOLOGY METHOD 10/19/2024 8:25 AM [facility] Platelets 221 130 - 400 K/mcL LAB HEMETOLOGY METHOD 10/19/2024 8:25 AM [facility] MPV 10.8 7.0 - 11.0 FL LAB HEMETOLOGY METHOD 10/19/2024 8:25 AM [facility] NRBC 0.0 <1.0 % LAB HEMETOLOGY METHOD 10/19/2024 8:25 AM [facility] NRBC Absolute 0.00 <0.10 K/mcL LAB HEMETOLOGY METHOD 10/19/2024 8:25 AM EST [facility] Blood Venous blood specimen / Unknown Venipuncture / Unknown 10/19/2024 5:45 AM EST 10/19/2024 8:08 AM EST us Travis Au MD LAB BLOOD ORDERABLES Final Resul t [facility] [address] [place] [address], documented in this encounter Visit Diagnoses Diagnosis Type 2 diabetes mellitus without complications (CMS/HCC V24, CMS/HCC V28) documented in this encounter Care Teams Payer Specialist Relationship Specialty Start Date End Date Travis Au MD [address] [place] [address], [phone] PCP - General Family Medicine 08/22/24 documented as of this encounter
--- OUTSIDE RECORDS SUMMARY | 2025-06-08 11:30 | XMS_ITS | Encounter Summary ---
Author Organization [facility] Address [address] [place] [address] Care Team Providers Care Poker Prop Player Name Role Phone Travis Au MD Primary Care Provider Encounter Details Date Type Department Care Team (Latest Contact Info) Description 10/26/2024 Lab Requisition [facility] - Main Lab 299 [facility] [place] [address] Brandon Mckeon MD [address] [place] [address] Chronic kidney disease, unspecified; Type [...] LAB CHEMISTRY METHOD 10/27/2024 9:41 AM EST [facility] Potassium 5.6(H) 3.5 - 5.5 mmol/L LAB CHEMISTRY METHOD 10/27/2024 9:41 AM EST [facility] Chloride 110 96 - 110 mmol/L LAB CHEMISTRY METHOD 10/27/2024 9:41 AM [facility] CO2 19(L) 21 - 32 mmol/L LAB CHEMISTRY METHOD 10/27/2024 9:41 AM EST [facility] Anion Gap 8 3 - 11 LAB CHEMISTRY METHOD 10/27/2024 9:41 AM [facility] Glucose 92 70 - 100 mg/dL LAB CHEMISTRY METHOD 10/27/2024 9:41 AM [facility] BUN 55(H) 5 - 25 mg/dL LAB CHEMISTRY METHOD 10/27/2024 9:41 AM [facility] Creatinine 3.72(H) 0.70 - 1.30 mg/dL LAB CHEMISTRY METHOD 10/27/2024 9:41 AM EST [facility] eGFR 17(L) >=60 mL/min/1. 73m2 LAB CHEMISTRY METHOD 10/27/2024 9:41 AM EST [facility] Comment:Calculation based on the Chronic Kidney Disease Epidemiology Collaboration (CKD-EPI) equation refit without adjustment for race. BUN/Creatinine Ratio 14.8 LAB CHEMISTRY METHOD 10/27/2024 9:41 AM EST [facility] Calcium 8.2(L) 8.5 - 10.5 mg/dL LAB CHEMISTRY METHOD 10/27/2024 9:41 AM [facility] Blood Venous blood specimen / Unknown Venipuncture / Unknown 10/27/2024 6:57 AM EST 10/27/2024 8:20 AM EST us Brandon Mckeon MD LAB BLOOD ORDERABLES Final Resu lt [facility] [address] [place] [address], * (ABNORMAL) Complete blood count (10/27/2024 6:57 AM EST) [facility] WBC 10.0 4.8 - 10.8 K/mcL [...] 9:21 AM [facility] NRBC Absolute 0.00 <0.10 K/[facility] LAB HEMETOLOGY METHOD 10/27/2024 9:21 AM EST [facility] Blood Venous blood specimen / Unknown Venipuncture / Unknown 10/27/2024 6:57 AM EST 10/27/2024 8:20 AM EST us Brandon Mckeon MD LAB BLOOD ORDERABLES Final Resu lt [facility] [address] [place] [address], [place] [phone] documented in this encounter Visit Diagnoses Diagnosis Chronic kidney disease, unspecified Type 2 diabetes mellitus without complications (CMS/HCC V24, CMS/HCC V28) documented in this encounter Care Teams Poker Prop Player Relationship Specialty Start Date End Date Travis Au MD [address] [place] [phone] PCP - General Family Medicine 08/22/24 documented as of this encounter
--- OUTSIDE RECORDS SUMMARY | 2025-06-08 11:30 | XMS_ITS | Encounter Summary ---
Author Organization [facility] Address [address] [place] [address] Care Team Providers Care Hat Trimmer Name Role Phone Travis Au MD Primary Care Provider [phone] Encounter Details Date Type Department Care Team (Latest Contact Info) Description 11/01/2024 Lab Requisition [facility] - Main Lab [address] [place] [address] Brandon Mckeon MD [address] [place] [address] Type 2 diabetes mellitus without [...] LAB CHEMISTRY METHOD 11/02/2024 12:37 PM EST [facility] Potassium 5.1 3.5 - [...] [facility] [address] [place] [address], [place] [phone] * (ABNORMAL) Complete blood count (11/02/2024 7:04 AM EST) [facility] WBC 8.5 4.8 - 10.8 K/mcL [...] LAB HEMETOLOGY METHOD 11/02/2024 12:23 PM EST [facility] Blood Venous blood specimen / Unknown Venipuncture / Unknown 11/02/2024 7:04 AM EST 11/02/2024 11:13 AM EST us Brandon Mckeon MD LAB BLOOD ORDERABLES Final Resu lt [facility] [address] [place] [address], documented in this encounter Visit Diagnoses Diagnosis Type 2 diabetes mellitus without complications (CMS/HCC V24, CMS/HCC V28) documented in this encounter Care Teams Hat Trimmer Relationship Specialty Start Date End Date Travis Au MD [address] [place] [address], [phone] PCP - General Family Medicine 08/22/24 documented as of this encounter
--- OUTSIDE RECORDS SUMMARY | 2025-06-08 11:30 | XMS_ITS | Encounter Summary ---
Author Organization [facility], Address [address] [place] [address] Phone Care Team Providers Care Hand Edge Bander Name Role Phone Michelle Long MD Primary Care Provider [phone] Reason for Visit * Reason Comments Med Refill Encounter Details Date Type Department Care Team (Late st Contact Info) Description 01/01/2025 Refill [facility], [address] [place] [address] Phill Mc MD [address] [facility] [place] [phone] Social History Tobacco Use Types Packs/Day Years [...] on filedocumented in this encounter Care Teams Hand Edge Bander Relationship Specialty Start Date End Date Michelle Long MD [address] [place] [address] PCP - General Internal Medicine 10/06/23 documented as of this encounter
--- OUTSIDE RECORDS SUMMARY | 2025-06-08 11:30 | XMS_ITS | Encounter Summary ---
Author Organization [facility] Address [address] [place] [address] Care Team Providers Care Mat Cleaning Machine Operator Name Role Phone Travis Au MD Primary Care Provider [phone] Encounter Details Date Type Department Care Team (Latest Contact Info) Description 11/29/2024 Lab Requisition [facility] - Main Lab 299 [facility] [place] [address] Brandon Mckeon MD [address] [place] [address] Type 2 diabetes mellitus without [...] V28) documented in this encounter Care Teams Mat Cleaning Machine Operator Relationship Specialty Start Date End Date Travis Au MD 38 [facility] [address] [place], [phone] PCP - General Family Medicine 08/22/24 documented as of this encounter
--- OUTSIDE RECORDS SUMMARY | 2025-06-08 11:30 | XMS_ITS | Clinical Summary ---
Author Organization [address] Address [address] [place] [phone] Phone Care Team Providers Care Optical Manufacturing Technician Name Role Phone Travis Au MD Primary Care Provider [phone] Social History Tobacco Use Types Packs/Day Years [...] series) 1978 Zoster Vaccines (1 of 2) 2009 Pneumococcal Vaccine: 50+ Years (2 of 2 - PCV) 07/01/2011 07/01/2010 RSV Immunization Adult Patients (1 - Risk 60-74 years 1-dose series) 2019 Abdominal Aortic Aneurysm (AAA) Screen 10/30/2023 Cholesterol Screening (Lipid Panel) 10/30/2023 Colorectal Cancer Screening: Colonoscopy 10/30/2023 Hepatitis C Screening 10/30/2023 Medicare Annual Wellness Visit 10/30/2023 Social Influencers of Health Screening 10/30/2023 Falls Risk Assessment 2024 Diabetes: Annual Urine Albumin-Creatinine Ratio (uACR) 08/22/2024 Depression Screening 10/05/2024 Diabetes: Blood Sugar Control Test (HGBA1C) 02/19/2025 08/22/2024 COVID-19 Vaccine ( season) 2025 06/26/2023, 06/02/2021, 11/06/2020, Additional history exists Influenza Vaccine (#1) 2025 , 09/04/2023, 06/27/2022, Additional history exists Diabetes: Annual GFR (Glomerular [...] Type 2 diabetes mellitus without complications (CMS/HCC) HEMOGLOBIN A1C Routine 08/22/2024 5:16 AM EST Type 2 diabetes mellitus without complications (CMS/HCC) Unspecified atrial fibrillation (CMS/HCC) from Last 3 Months or Most Recently Relevant to Health Maintenance Results * (ABNORMAL) Basic metabolic panel (11/02/2024 7:04 AM EST) Sodium 134 133 - 145 mmol/L LAB CHEMISTRY METHOD 11/02/2024 12:37 PM EST [facility] Potassium 5.1 3.5 - 5.5 mmol/L LAB CHEMISTRY METHOD 11/02/2024 12:37 PM [facility] Chloride 107 96 - 110 mmol/L LAB CHEMISTRY METHOD 11/02/2024 12:37 PM [facility] CO2 21 21 - 32 mmol/L LAB CHEMISTRY METHOD 11/02/2024 12:37 PM [facility] Anion Gap 6 3 - 11 LAB CHEMISTRY METHOD 11/02/2024 12:37 PM [facility] Glucose 93 70 - 100 mg/dL LAB CHEMISTRY METHOD 11/02/2024 12:37 PM [facility] BUN 54(H) 5 - 25 mg/dL LAB CHEMISTRY METHOD 11/02/2024 12:37 PM [facility] Creatinine 3.63(H) 0.70 - 1.30 mg/dL LAB CHEMISTRY METHOD 11/02/2024 12:37 PM [facility] eGFR 18(L) >=60 mL/min/1. 73m2 LAB CHEMISTRY METHOD 11/02/2024 12:37 PM [facility] Comment:Calculation based on the Chronic Kidney Disease Epidemiology Collaboration (CKD-EPI) equation refit without adjustment for race. BUN/Creatinine Ratio 14.9 LAB CHEMISTRY METHOD 11/02/2024 12:37 PM [facility] Calcium 8.5 8.5 - 10.5 mg/dL LAB CHEMISTRY METHOD 11/02/2024 12:37 PM [facility] Blood Venous blood specimen / Unknown Venipuncture / Unknown 11/02/2024 7:04 AM EST 11/02/2024 11:13 AM EST us Brandon Mckeon MD LAB BLOOD ORDERABLES Final Resu lt [facility] [address] [place] [address], * Hemoglobin A1c (08/22/2024 5:16 AM EST) Hemoglobin A1C 6.4 <6.5 % LAB CHEMISTRY METHOD 08/23/2024 7:38 PM EST [facility] Mean Bld Glu Estim. 137 mg/dL LAB CHEMISTRY METHOD 08/23/2024 7:38 PM EST [facility] Blood Venous blood specimen / Unknown 08/22/2024 5:16 AM EST 08/22/2024 7:59 AM EST us Travis Au MD LAB BLOOD ORDERABLES Final Resul t [facility] ([facility] [address] [place] [address], from Last 3 Months or Most Recently Relevant to Health Maintenance Insurance [facility] MEDICARE Member Subscriber Plan / Payer (Ef fective 2024-Present) Name:Renato Hinson Relation to Subscriber:Self Name:Renato Hinson Payer ID:[id number] Group ID:[id number] Type:Not on file Address: [place] [address] [address] Care Teams Optical Manufacturing Technician Relationship Specialty Start Date End Date Travis Au MD 38 [facility] [address] [place], [phone] PCP - General Family Medicine 08/22/24
--- OUTSIDE RECORDS SUMMARY | 2025-06-08 11:30 | XMS_ITS | Encounter Summary ---
Author Organization [facility] Address [address] [place] [address] Care Team Providers Care Astronomy Teacher Name Role Phone Travis Au MD Primary Care Provider [phone] Encounter Details Date Type Department Care Team (Late st Contact Info) Description 09/24/2024 Lab Requisition [facility] - Main Lab [address] [place] [address] Travis Au MD [address] [place] [address] [address] [place], [phone] Chronic kidney disease, unspecified Social History [...] LAB CHEMISTRY METHOD 09/26/2024 10:[address] [facility] Potassium 5.0 3.5 - 5.5 mmol/L LAB CHEMISTRY METHOD 09/26/2024 10:[address] [facility] Chloride 107 96 - 110 mmol/L LAB CHEMISTRY METHOD 09/26/2024 10:13 AM [facility] CO2 20(L) 21 - 32 mmol/L LAB CHEMISTRY METHOD 09/26/2024 10:13 AM [facility] Anion Gap 8 3 - 11 LAB CHEMISTRY METHOD 09/26/2024 10:13 AM [facility] Glucose 169(H) 70 - 100 mg/dL LAB CHEMISTRY METHOD 09/26/2024 10:13 AM [facility] BUN 74(H) 5 - 25 mg/dL LAB CHEMISTRY METHOD 09/26/2024 10:13 AM [facility] Creatinine 3.72(H) 0.70 - 1.30 mg/dL LAB CHEMISTRY METHOD 09/26/2024 10:13 AM [facility] eGFR 17(L) >=60 mL/min/1. 73m2 LAB CHEMISTRY METHOD 09/26/2024 10:13 AM [facility] Comment:Calculation based on the Chronic Kidney Disease Epidemiology Collaboration (CKD-EPI) equation refit without adjustment for race. BUN/Creatinine Ratio 19.9 LAB CHEMISTRY METHOD 09/26/2024 10:13 AM [facility] Calcium 8.4(L) 8.5 - 10.5 mg/dL LAB CHEMISTRY METHOD 09/26/2024 10:13 AM [facility] Blood Venous blood specimen / Unknown Venipuncture / Unknown 09/26/2024 5:22 AM EST 09/26/2024 9:31 AM EST us Travis Au MD LAB BLOOD ORDERABLES Final Resul t [facility] [address] [place] [address], * (ABNORMAL) Complete blood count (09/26/2024 5:22 AM EST) WBC 12.6(H) 4.8 - 10.8 K/mcL LAB HEMETOLOGY METHOD 09/26/2024 9:44 AM [facility] RBC 2.90(L) 4.50 - 5.50 M/mcL LAB HEMETOLOGY METHOD 09/26/2024 9:44 AM [facility] Hemoglobin 8.6(L) 13.5 - 17.5 g/dL LAB HEMETOLOGY METHOD 09/26/2024 9:44 AM [facility] Hematocrit 26.7(L) 42.0 - 54.0 % LAB HEMETOLOGY METHOD 09/26/2024 9:44 AM [facility] MCV 93.0 79.0 - 98.0 FL LAB HEMETOLOGY METHOD 09/26/2024 9:44 AM [facility] MCH 30.0 27.0 - 32.0 pcg LAB HEMETOLOGY METHOD 09/26/2024 9:44 AM [facility] MCHC 32.2 32.0 - 37.0 g/dL LAB HEMETOLOGY METHOD 09/26/2024 9:44 AM [facility] RDW 12.9 11.0 - 15.0 % LAB HEMETOLOGY METHOD 09/26/2024 9:44 AM [facility] Platelets 289 130 - 400 K/mcL LAB HEMETOLOGY METHOD 09/26/2024 9:44 AM [facility] MPV 10.6 7.0 - 11.0 FL LAB HEMETOLOGY METHOD 09/26/2024 9:44 AM [facility] NRBC 0.0 <1.0 % LAB HEMETOLOGY METHOD 09/26/2024 9:44 AM [facility] NRBC Absolute 0.00 <0.10 K/mcL LAB HEMETOLOGY METHOD 09/26/2024 9:44 AM [facility] Blood Venous blood specimen / Unknown Venipuncture / Unknown 09/26/2024 5:22 AM EST 09/26/2024 9:31 AM EST us Travis Au MD LAB BLOOD ORDERABLES [facility] [address] [place] [address], documented in this encounter Visit Diagnoses Diagnosis Chronic kidney disease, unspecified documented in this encounter Care Teams Astronomy Teacher Relationship Specialty Start Date End Date Travis Au MD [address] [place] [phone] PCP - General Family Medicine 08/22/24 documented as of this encounter
--- OUTSIDE RECORDS SUMMARY | 2025-06-08 11:30 | XMS_ITS | Encounter Summary ---
Author Organization [facility] Address [address] [place] [address] Care Team Providers Care Consulting Psychiatrist Name Role Phone Travis Au MD Primary Care Provider [phone] Encounter Details Date Type Department Care Team (Late st Contact Info) Description 08/22/2024 Lab Requisition [facility] - Main Lab [address] [facility] [place] [address] Travis Au MD [address] [place] [address] [address] [facility] [phone] Type 2 diabetes mellitus without complications [...] * Hemoglobin A1c (08/22/2024 5:16 AM EST) [facility] Hemoglobin A1C 6.4 <6.5 % LAB CHEMISTRY METHOD 08/23/2024 7:[address] [facility] Mean Bld Glu Estim. 137 mg/dL LAB CHEMISTRY METHOD 08/23/2024 7:[address] [facility] Blood Venous blood specimen / Unknown 08/22/2024 5:16 AM EST 08/22/2024 7:59 AM EST us Travis Au MD LAB BLOOD ORDERABLES Final Resul t [facility] [address] [place] [address], [place] [phone] * (ABNORMAL) CBC auto differential (08/22/2024 5:16 AM EST) [facility] WBC 7.0 4.8 - 10.8 K/mcL LAB HEMETOLOGY METHOD 08/22/2024 8:13 AM [facility] RBC 3.30(L) 4.50 - 5.50 M/[facility] LAB HEMETOLOGY METHOD 08/22/2024 8:13 AM [facility] Hemoglobin 9.8(L) 13.5 - 17.5 g/dL LAB HEMETOLOGY METHOD 08/22/2024 8:13 AM [facility] Hematocrit 31.2(L) 42.0 - 54.0 % LAB HEMETOLOGY METHOD 08/22/2024 8:13 AM [facility] MCV 94.8 79.0 - 98.0 FL LAB HEMETOLOGY METHOD 08/22/2024 8:13 AM [facility] MCH 29.8 27.0 - 32.0 pcg LAB HEMETOLOGY METHOD 08/22/2024 8:13 AM [facility] MCHC 31.4(L) 32.0 - 37.0 g/dL LAB HEMETOLOGY METHOD 08/22/2024 8:13 AM [facility] RDW 13.2 11.0 - 15.0 % LAB HEMETOLOGY METHOD 08/22/2024 8:13 AM [facility] Platelets 232 130 - 400 K/mcL LAB HEMETOLOGY METHOD 08/22/2024 8:13 AM [facility] MPV 10.9 7.0 - 11.0 FL LAB HEMETOLOGY METHOD 08/22/2024 8:13 AM [facility] NRBC 0.0 <1.0 % LAB HEMETOLOGY METHOD 08/22/2024 8:13 AM [facility] NRBC Absolute 0.00 <0.10 K/mcL LAB HEMETOLOGY METHOD 08/22/2024 8:13 AM [facility] Neutrophils Relative 61.3 % LAB HEMETOLOGY METHOD 08/22/2024 8:13 AM [facility] Lymphocytes Relative 24.5 % LAB HEMETOLOGY METHOD 08/22/2024 8:13 AM [facility] Monocytes Relative 5.9 % LAB HEMETOLOGY METHOD 08/22/2024 8:13 AM [facility] Eosinophils Relative 6.6 % LAB HEMETOLOGY METHOD 08/22/2024 8:13 AM [facility] Basophils Relative 1.3 % LAB HEMETOLOGY METHOD 08/22/2024 8:13 AM [facility] Immature Granulocytes Relative 0.4 % LAB HEMETOLOGY METHOD 08/22/2024 8:13 AM [facility] Neutrophils Absolute 4.29 1.50 - 7.00 K/mcL LAB HEMETOLOGY METHOD 08/22/2024 8:[address] [facility] Lymphocytes Absolute 1.71 1.00 - 5.00 K/[facility] LAB HEMETOLOGY METHOD 08/22/2024 8:13 AM [facility] Monocytes Absolute 0.41 0.20 - 1.00 K/mcL LAB HEMETOLOGY METHOD 08/22/2024 8:[address] [facility] Eosinophils Absolute 0.46 0.00 - 0.50 K/[facility] LAB HEMETOLOGY METHOD 08/22/2024 8:13 AM [facility] Basophils Absolute 0.09 0.00 - 0.20 K/[facility] LAB HEMETOLOGY METHOD 08/22/2024 8:13 AM [facility] Immature Granulocytes Absolute 0.03 0.00 - 0.03 K/[facility] LAB HEMETOLOGY METHOD 08/22/2024 8:13 AM [facility] Blood Venous blood specimen / Unknown Venipuncture / Unknown 08/22/2024 5:16 AM EST 08/22/2024 7:22 AM EST us Travis Au MD LAB BLOOD ORDERABLES Final Resul t [facility] [address] [place] [address], * (ABNORMAL) Comprehensive metabolic panel (08/22/2024 5:16 AM EST) Sodium 139 133 - 145 mmol/L LAB CHEMISTRY METHOD 08/22/2024 9:02 AM [facility] Potassium 4.2 3.5 - 5.5 mmol/L LAB CHEMISTRY METHOD 08/22/2024 9:02 AM [facility] Chloride 108 96 - 110 mmol/L LAB CHEMISTRY METHOD 08/22/2024 9:02 AM [facility] CO2 23 21 - 32 mmol/L LAB CHEMISTRY METHOD 08/22/2024 9:02 AM [facility] Anion Gap 8 3 - 11 LAB CHEMISTRY METHOD 08/22/2024 9:02 AM [facility] Glucose 116(H) 70 - 100 mg/dL LAB CHEMISTRY METHOD 08/22/2024 9:02 AM [facility] BUN 47(H) 5 - 25 mg/dL LAB CHEMISTRY METHOD 08/22/2024 9:02 AM [facility] Creatinine 3.05(H) 0.70 - 1.30 mg/dL LAB CHEMISTRY METHOD 08/22/2024 9:02 AM [facility] eGFR 22(L) >=60 mL/min/1. 73m2 LAB CHEMISTRY METHOD 08/22/2024 9:02 AM [facility] Comment:Calculation based on the Chronic Kidney Disease Epidemiology Collaboration (CKD-EPI) equation refit without adjustment for race. BUN/Creatinine Ratio 15.4 LAB CHEMISTRY METHOD 08/22/2024 9:02 AM [facility] Calcium 8.8 8.5 - 10.5 mg/dL LAB CHEMISTRY METHOD 08/22/2024 9:02 AM [facility] AST (SGOT) 13 10 - 42 unit/L LAB CHEMISTRY METHOD 08/22/2024 9:02 AM [facility] ALT (SGPT) 19 10 - 60 unit/L LAB CHEMISTRY METHOD 08/22/2024 9:02 AM [facility] Alkaline Phosphatase 80 42 - 121 unit/L LAB CHEMISTRY METHOD 08/22/2024 9:02 AM [facility] Total Protein 6.4 6.0 - 8.0 g/dL LAB CHEMISTRY METHOD 08/22/2024 9:02 AM [facility] Albumin 3.1(L) 3.2 - 5.0 g/dL LAB CHEMISTRY METHOD 08/22/2024 9:02 AM [facility] Total Bilirubin 0.4 0.0 - 1.4 mg/dL LAB CHEMISTRY METHOD 08/22/2024 9:[address] [facility] Blood Venous blood specimen / Unknown Venipuncture / Unknown 08/22/2024 5:16 AM EST 08/22/2024 7:22 AM EST us Travis Au MD LAB BLOOD ORDERABLES Final Resul t [facility] [address] [place] [address], documented in this encounter Visit Diagnoses Diagnosis Type 2 diabetes mellitus without complications (CMS/HCC V24, CMS/HCC V28) Unspecified atrial fibrillation (CMS/HCC V24, CMS/HCC V28) documented in this encounter Care Teams Consulting Psychiatrist Relationship Specialty Start Date End Date Travis Au MD [address] [place] [address], [phone] PCP - General Family Medicine 08/22/24 documented as of this encounter
--- OUTSIDE RECORDS SUMMARY | 2025-06-08 11:30 | XMS_ITS | Clinical Summary ---
Author Organization [facility] Address [address] [facility] [address] [place] [address] Phone Care Team Providers Care Laundry Helper Name Role Phone Michelle Long MD Primary Care Provider [phone] Allergies Active Allergy Reactions Criticality Noted Date [...] [facility] [address] [place] [address] Sydney Rosales from Last 3 Months Family [...] to 49 Years) Discontinued 07/01/[address] [place] [phone] [facility] ([id number]) MAHESH MACIAS [phone] [facility] Dual SNP ([id number]) Care Teams Laundry Helper Relationship Specialty Start Date End Date Michelle Long MD [address] [place], [place] PCP - General Internal Medicine 10/06/23
[2025-06-08] MEDS: Albuterol/Iprat 2.5/0.5MG 3 ML AMPUL.NEB INHALE (11:44)
[2025-06-08 12:37] LABS: MANUAL DIFF FLAG NO
[2025-06-08] MEDS: vancomycin/NS 2,000 MG/500 ML PLAST..BAG 250 MG IV (12:39)
[2025-06-08 12:40] LABS: Hematocrit 25.3 % (42.0-52.0); Hemoglobin 8.2 g/dl (14.0-18.0); Imm Gran Abs Auto 0.04 X10*3/uL (0.00-0.03); Imm Gran Pct Auto 0.5 % (0.0-0.4); Lymphocytes Absolute Auto 1.4 X10*3/uL (1.2-4.9); Mean Corpuscular HGB Conc 32.4 g/dl (31.0-36.0); Mean Corpuscular Hemoglobin 29.2 pg (27.0-33.0); Mean Corpuscular Volume 90.0 fL (80.0-98.0); NRBC Abs Auto 0.000 X10*3/uL (0.0-0.012); NRBC Pct Auto 0.0 /100WBC (0.0-0.2); Platelet Count 203 X10*3/uL (160-400); Red Blood Count 2.81 X10*6/uL (4.60-5.80); White Blood Count 8.2 X10*3/uL (4.8-10.8)
[2025-06-08 12:44] LABS: VBG HCO3 12 mmol/L (22-26); VBG O2 % Saturation 99.0 %
[2025-06-08 12:45] LABS: Venous Blood Gas Refer to POC result
[2025-06-08 12:47] LABS: INTERNATIONAL NORM RATIO 1.2 (0.9-1.1); Prothrombin Time 14.0 SEC (10.9-12.4)
[2025-06-08 13:02] LABS: Troponin-I High Sensitivity 26.7 ng/L (<3.5-35.0)
[2025-06-08 13:06] LABS: Alanine Aminotransferase 7 U/L (0-40); Albumin Level 3.1 g/dL (3.5-5.0); Alkaline Phosphatase 65 U/L (39-117); Anion Gap 16 (12-20); Aspartate Amino Transferase 15 U/L (5-37); Blood Urea Nitrogen 90 mg/dL (9-16); Calcium 7.8 mg/dL (8.4-10.2); Carbon Dioxide 13 mmol/L (22-29); Chloride 113 mmol/L (96-108); Creatinine Clr Calc Pharmacy 8.4; Estimated Glomerular Filt Rate 6; Magnesium 2.1 mg/dL (1.6-2.6); Potassium 6.2 mmol/L (3.3-5.1); Sodium 136 mmol/L (135-145); Total Protein 6.7 g/dL (6.5-8.0)
[2025-06-08 13:29] LABS: B Type Natriuretic Peptide 3447 pg/mL (<100)
--- NOTE | 2025-06-08 14:11 | PM.CNNEP ---
History of Present Illness Reason for Consult Consult date: 06/08/25 Chief Complaint Chief complaint: DIFFICULTY BREATHING History of Present Illness Narrative: 65 y/o male with advanced renal disease likely secondary to diabetes, hypertension and vascular disease, also has COPD, chronic respiratory failure, WENDY s/p right BKA, HTN, a AFib on Xarelto, type 2 diabetes, recently s/p left great toe amputation, history of osteomyelitis. He presented today 06/08 with shortness of breath. CXR with pulmonary edema, possible superimposed pneumonia. left lower extremity xray suggests osteomyelitis, lactate 0.8, WBCs normal. potassium is 6.2, serum bicarb is 13 (on sodium bicarb tabs 650mg PO TID), creatinine up to 9.25, BUN 90. Calcium 7.8. Patient is lethargic but nodding yes/no to questions- nods yes that he has had urine output in last 24 hours, though unclear if output has dropped. His breathing appears nonlabored, he nods no to shortness of breath. He denies pain at this time. Review of Systems Constitutional: Reports fatigue and Reports weakness Cardiovascular: Denies chest pain, Reports leg edema and Denies dyspnea Respiratory: Denies dyspnea Gastrointestinal: Denies abdominal pain, Denies diarrhea, Denies nausea and Denies vomiting Genitourinary: Denies hematuria, Denies difficulty urinating, Denies dysuria and Denies flank pain Musculoskeletal: Denies muscle cramps Skin/Breast: Denies rash Denies tremor(s) and Reports weakness Endocrine: Reports fatigue PMFSH Past Medical History Medical History Chronic kidney disease (CKD), stage 5 Metabolic acidosis CKD (chronic kidney disease) stage 5, GFR less than 15 ml/min Anemia in chronic kidney disease (CKD) Hypertension CKD (chronic kidney disease) stage 4, GFR 15-29 ml/min Fluid overload Acute and chronic respiratory failure Sepsis Acute dehydration New onset of congestive heart failure Pneumonia Urinary urgency Urinary tract infection Urinary hesitancy Tubular adenoma of colon Smoker Seborrheic keratoses SND (sensorineural deafness) Right BKA infection Peripheral vascular disease WENDY (obstructive sleep apnea) Microalbuminuria Lung nodule seen on imaging study Lightheadedness Latent tuberculosis LVH (left ventricular hypertrophy) Abnormal PFTs Hyponatremia Hypertensive retinopathy of both eyes Hyperkalemia Hepatitis C Hearing loss of both ears Erectile dysfunction Cataract CKD (chronic kidney disease) Bladder wall thickening BPH (benign prostatic hyperplasia) Anticoagulated Anemia Peripheral neuropathy Diabetes mellitus, type II CVA (cerebral vascular accident) Adrenal nodule Kidney cysts Family History Family History Brother Diabetes Mother Diabetes Father Diabetes Surgical History Surgical History Hx of right BKA Social History Social History Household Members: Spouse Household Members Other:: ex- Housing: Apartment Do you presently have visiting nurse or other home services: Yes Alcohol intake: never Patient Tobacco Use Status: Former Tobacco user Tobacco use type: Cigarette Smoked in Last 30 Days: No e-Cigarette/Vaping Use: Former Use Use of substances other than those prescribed or required for medical reasons: No Advance Directives: No Advance Directives Information Provided: Yes Do you have a plan to hurt others: No Plan service: No Meds Allergies Allergy/AdvReac Type Severity Reaction Status Date / Time morphine Allergy Hallucinati Verified 06/08/25 10:07 ons bupropion AdvReac Hallucinati Verified 06/08/25 10:07 ons Active Medications: Current Medications Heparin Sodium (Porcine) (Heparin Sodium,Porcine 5,000 Unit/Ml Vial) 5,000 unit INTRACATH ONCE ONE Stop: 06/08/25 18:01 Heparin Sodium (Porcine) (Heparin Sodium,Porcine 5,000 Unit/Ml Vial) 5,000 unit INTRACATH ONCE ONE Stop: 06/09/25 10:31 Vancomycin HCl (Vancomycin/Ns) 2,000 mg in 500 mls @ 250 mls/hr IV ONCE ONE Stop: 06/08/25 14:59 Last Admin: 06/08/25 12:39 Dose: 250 mls/hr Home Medications ?Medication ?Instructions ?Recorded ?Confirmed ?Last Taken ?Type aspirin 81 mg chewable tablet 1 tab PO DAILY 12/19/24 05/26/25 05/26/25 History dapagliflozin propanediol 10 mg 10 mg PO DAILY 12/19/24 05/26/25 05/26/25 History tablet (Farxiga) finasteride 5 mg tablet 5 mg PO DAILY 12/19/24 05/26/25 05/26/25 History metoprolol succinate 100 mg 100 mg PO DAILY 12/19/24 05/26/25 05/26/25 History tablet,extended release 24 hr tamsulosin 0.4 mg capsule 0.4 mg PO DAILY 12/19/24 05/26/25 05/26/25 History umeclidinium 62.5 mcg/actuation 1 inh inhalation DAILY 12/19/24 05/26/25 05/25/25 History blister powder for inhalation (Incruse Ellipta) hydralazine 25 mg tablet 50 mg PO TID PRN Hypertension 12/30/24 05/26/25 02/19/25 09:00 History rivaroxaban 2.5 mg tablet (Xarelto) 2.5 mg PO BID 12/30/24 05/26/25 05/26/25 History sodium bicarbonate 650 mg tablet 650 mg PO TID 12/30/24 05/26/25 05/26/25 History atorvastatin 10 mg tablet 10 mg PO DAILY 05/26/25 05/26/25 05/26/25 History insulin lispro 100 unit/mL See Protocol subcut QIDACHS PRN 05/26/25 05/26/25 Unknown History subcutaneous pen (Humalog KwikPen Hypoglycemia (U-100) Insulin) sodium zirconium cyclosilicate 10 10 g PO SUWE 05/26/25 05/26/25 05/21/25 History gram oral powder packet (Lokelma) Physical Exam Vital Signs: Last Vital Signs Temp 98.6 F 06/08/25 10:08 Pulse 72 06/08/25 11:45 Resp 16 06/08/25 11:45 BP 137/55 L 06/08/25 10:08 Pulse Ox 95 06/08/25 10:08 O2 Del Method Nasal Cannula 06/08/25 10:08 BMI result Body Mass Index 22.7 Const General: no acute distress and lethargic Orientation/consciousness: lethargic Resp Effort & Inspection: normal respiratory effort Auscultation: crackles Cardio Rate: regular rate Rhythm: regular rhythm Heart sounds: S1 normal heart sound present and S2 normal heart sound present GI Palpation (GI): Soft to palpation and nontender Skin Rashes: no rashes Neuro Other: no tremor. Extrem General: Yes edema (mild LLE edema, pitting. BKA RLE. ) Results Lab Results 06/08/25 12:26 06/08/25 12:26 Lab results: Chemistry 06/08/25 12:26 Sodium 136 Potassium 6.2 H* Carbon Dioxide 13 L BUN 90 H Creatinine 9.25 H* Calcium 7.8 L Hematology 06/08/25 12:26 WBC 8.2 Hgb 8.2 L Plt Count 203 Assessment and Plan (1) Acute kidney failure: Qualifiers: Acute renal failure type: unspecified Qualified Code(s): N17.9 - Acute kidney failure, unspecified Status: Acute Plan Renal failure requiring urgent dialysis- patient hyperkalemic with significant metabolic acidosis, lethargy. UOP unclear. Stat order for HD catheter placed, called and notified IR. Orders for dialysis placed for today and tomorrow a.m., HD RN notified needs dialysis yuval once HD catheter placed. Patient is hypervolemic, will remove 1-2L fluid as tolerated. hyperkalemia- 10mg lokelma given patient needs line placed first before dialysis can be started H&H 8.2&25- may be partly dilutional, will re-assess tomorrow and administer procrit as appropriate low K, low phos, low sodium diet. limit fluid intake to 1.5L/24 hours blood pressures acceptable at this time continue supportive care Discussed with Dr Kuhn. Procedures Date of Service Date of Service: 06/08/25
--- NOTE | 2025-06-08 16:32 | PM.IMHP ---
History of Present Illness Date of Service: 06/08/25 Attending physician on admission: Anna Amaral Chief Complaint: SOB This is a 65-year-old male with history of CKD stage 5, AFib on Xarelto among others who presented to the emergency department with shortness of breath. Patient is a vague historian but reports 2 days of increasing shortness a breath with no associated cough. No fever, no chills. Patient has CKD 5 but has not yet been initiated on hemodialysis. In the emergency department today creatinine had increased to 9.25, bicarb was 13 and potassium of 6.2. He received a dose of Lokelma. IR was not available so a right femoral line was placed by the emergency room provider. Chest x-ray showed cardiomegaly with interstitial and alveolar pulmonary edema, small layering effusion. He was also noted to have wound of the left foot, x-ray shows suspected osteomyelitis. He will be admitted for further mangement and urgent dialysis. Review of Systems Review of Systems: Yes all other systems are reviewed and are negative Constitutional: Constitutional: Denies chills and Denies fever(s) Cardiovascular: Cardiovascular: Denies chest pain and Reports dyspnea Respiratory: Respiratory: Denies cough and Reports dyspnea [facility] Medical History Chronic kidney disease (CKD), stage 5 Metabolic acidosis CKD (chronic kidney disease) stage 5, GFR less than 15 ml/min Anemia in chronic kidney disease (CKD) Hypertension CKD (chronic kidney disease) stage 4, GFR 15-29 ml/min Fluid overload Acute and chronic respiratory failure Sepsis Acute dehydration New onset of congestive heart failure Pneumonia Urinary urgency Urinary tract infection Urinary hesitancy Tubular adenoma of colon Smoker Seborrheic keratoses SND (sensorineural deafness) Right BKA infection Peripheral vascular disease WENDY (obstructive sleep apnea) Microalbuminuria Lung nodule seen on imaging study Lightheadedness Latent tuberculosis LVH (left ventricular hypertrophy) Abnormal PFTs Hyponatremia Hypertensive retinopathy of both eyes Hyperkalemia Hepatitis C Hearing loss of both ears Erectile dysfunction Cataract CKD (chronic kidney disease) Bladder wall thickening BPH (benign prostatic hyperplasia) Anticoagulated Anemia Peripheral neuropathy Diabetes mellitus, type II CVA (cerebral vascular accident) Adrenal nodule Kidney cysts Family History Brother Diabetes Mother Diabetes Father Diabetes Surgical History Hx of right BKA Social History Household Members: Spouse Household Members Other:: ex- Housing: Apartment Do you presently have visiting nurse or other home services: Yes Alcohol intake: never Patient Tobacco Use Status: Former Tobacco user Tobacco use type: Cigarette Smoked in Last 30 Days: No e-Cigarette/Vaping Use: Former Use Use of substances other than those prescribed or required for medical reasons: No Advance Directives: No Advance Directives Information Provided: Yes Do you have a plan to hurt others: No Plan service: No Meds Allergies Allergy/AdvReac Type Severity Reaction Status Date / Time morphine Allergy Hallucinati Verified 06/08/25 10:07 ons bupropion AdvReac Hallucinati Verified 06/08/25 10:07 ons Active Medications: Current Medications Heparin Sodium (Porcine) (Heparin Sodium,Porcine 5,000 Unit/Ml Vial) 5,000 unit INTRACATH ONCE ONE Stop: 06/08/25 18:01 Heparin Sodium (Porcine) (Heparin Sodium,Porcine 5,000 Unit/Ml Vial) 5,000 unit INTRACATH ONCE ONE Stop: 06/09/25 10:31 Home Medications ?Medication ?Instructions ?Recorded ?Confirmed ?Last Taken ?Type aspirin 81 mg chewable tablet 1 tab PO DAILY 12/19/24 05/26/25 05/26/25 History dapagliflozin propanediol 10 mg 10 mg PO DAILY 12/19/24 05/26/25 05/26/25 History tablet (Farxiga) finasteride 5 mg tablet 5 mg PO DAILY 12/19/24 05/26/25 05/26/25 History metoprolol succinate 100 mg 100 mg PO DAILY 12/19/24 05/26/25 05/26/25 History tablet,extended release 24 hr tamsulosin 0.4 mg capsule 0.4 mg PO DAILY 12/19/24 05/26/25 05/26/25 History umeclidinium 62.5 mcg/actuation 1 inh inhalation DAILY 12/19/24 05/26/25 05/25/25 History blister powder for inhalation (Incruse Ellipta) hydralazine 25 mg tablet 50 mg PO TID PRN Hypertension 12/30/24 05/26/25 02/19/25 09:00 History rivaroxaban 2.5 mg tablet (Xarelto) 2.5 mg PO BID 12/30/24 05/26/25 05/26/25 History sodium bicarbonate 650 mg tablet 650 mg PO TID 12/30/24 05/26/25 05/26/25 History atorvastatin 10 mg tablet 10 mg PO DAILY 05/26/25 05/26/25 05/26/25 History insulin lispro 100 unit/mL See Protocol subcut QIDACHS PRN 05/26/25 05/26/25 Unknown History subcutaneous pen (Humalog KwikPen Hypoglycemia (U-100) Insulin) sodium zirconium cyclosilicate 10 10 g PO SUWE 05/26/25 05/26/25 05/21/25 History gram oral powder packet (Lokelma) amlodipine 10 mg tablet 10 mg PO DAILY 06/08/25 06/08/25 Unknown History Physical Exam Vital Signs and Narrative: Vital Signs: Last Vital Signs Temp 98.6 F 06/08/25 10:08 Pulse 72 06/08/25 11:45 Resp 16 06/08/25 11:45 BP 137/55 L 06/08/25 10:08 Pulse Ox 95 06/08/25 10:08 O2 Del Method Nasal Cannula 06/08/25 10:08 BMI result Body Mass Index 22.7 Const: General: cooperative, comfortable, alert and awake Nutritional Appearance: average body habitus Orientation/consciousness: patient oriented x3 Neuro: General: patient oriented x3, No moves all extremities and No CN's II-XI intact bilaterally Extrem: General: No pedal edema Results Labs 06/08/25 12:26 06/08/25 12:26 Labs: Laboratory Results - last 24 hr 06/08/25 06/08/25 06/08/25 12:25 12:26 12:39 MCV 90.0 MCH 29.2 MCHC 32.4 RDW 16.4 H Plt Count 203 MPV 10.6 Immature Gran % (Auto) 0.5 H Neut % (Auto) 72.9 Lymph % (Auto) 16.6 L Winn % (Auto) 5.6 Eos % (Auto) 3.2 Baso % (Auto) 1.2 Lymph # (Auto) 1.4 Winn # (Auto) 0.5 Eos # (Auto) 0.3 Baso # (Auto) 0.1 Abs Immat Gran (auto) 0.04 H Absolute Neuts (auto) 6.0 Absolute Nucleated RBC 0.000 Nucleated RBC % (auto) 0.0 PT 14.0 H INR 1.2 H VBG pH 7.30 L VBG pCO2 24 VBG pO2 112 VBG HCO3 12 L VBG O2 Saturation 99.0 VBG Base Excess -12.3 Anion Gap 16 Estim Creat Clear Calc 8.4 Estimated GFR 6 Random Glucose 81 Lactic Acid 0.6 Calcium 7.8 L Magnesium 2.1 Total Bilirubin 0.2 AST 15 ALT 7 Alkaline Phosphatase 65 B-Natriuretic Peptide 3447 H Total Protein 6.7 Albumin 3.1 L Imaging Radiologist's Impressions: Impressions Chest X-Ray 06/08/25 11:38 IMPRESSION: 1. Cardiomegaly with interstitial and alveolar pulmonary edema, small layering left greater than right effusions and basilar parenchymal opacities, likely passive atelectasis. Superimposed pneumonia is not excluded in the appropriate clinical context. Electronically signed by: Talat Sky MD 06/08/2025 11:50 AM EDT RP Foot X-Ray 06/08/25 11:38 IMPRESSION: Suspected osteomyelitis with aggressive destruction involving the head and neck of the second metatarsal, base of the second proximal phalanx, margins of the third and fourth metatarsal heads, and head, neck, and distal metaphysis of the fifth metatarsal and possibly the lateral base of the proximal phalanx. Differential considerations would include inflammatory arthropathy such as rheumatoid arthritis which is less likely given the rapid progression since the prior study 4 months ago as well as the new soft tissue ulceration lateral to the distal half of the fifth metatarsal. Electronically signed by: Tyron Deleon MD 06/08/2025 11:58 AM EDT RP Assessment and Plan (1) Anemia in chronic kidney disease (CKD): Qualifiers: Chronic kidney disease stage: stage 4 (GFR 15-29) Qualified Code(s): N18.4 - Chronic kidney disease, stage 4 (severe); D63.1 - Anemia in chronic kidney disease Status: Acute (2) Acute hyperkalemia: Status: Acute Plan This is a 65-year-old male with history of CKD 5, AFib on Xarelto, hypertension, BPH, chronic respiratory failure, COPD, PVD, WENDY, diabetes, HFrEF who presented to the emergency department with 2 days of shortness of breath found to have worsening renal function with hyperkalemia plan for urgent dialysis Acute on chronic respiratory failure with hypoxia Due to fluid overload in the setting of worsening renal failure Right femoral line placed in the ED Plan for urgent dialysis Nephrology following Hyperkalemia Due to above Received [facility] Plan for dialysis today Trend BMP Left diabetic foot wound At site of left great toe amputation Imaging with concern for osteomyelitis Inflammatory markers pending MRI of the left foot ordered Empiric antibiotics with IV Zosyn and vancomycin, renally dosed Blood cultures pending acute on chronic HFpEF continue baseline diuretics HD as above anemia of chronic disease H/H near baseline, above transfusion threshold Paroxysmal atrial fibrillation Continue Xarelto when med rec completed BPH Continue baseline meds COPD No acute exacerbation continue baseline inhalers PVD continue asa when med rec completed dvt ppx - xarelto when med rec completed med rec pending at the time of admission Patient will likely require 2 midnight stay in the hospital for management of hyperkalemia fluid overload requiring urgent dialysis as well as concern for left foot diabetic ulcer and osteomyelitis requiring IV antibiotics and further advanced imaging Quality Stroke Does the patient have a stroke diagnosis?: No VTE Prior VTE?: No VTE Risk Level:: Medical - moderate - high VTE Device Contraindication: N/A - Device Ordered VTE Drug Contraindication: Treatment Not Indicated
[2025-06-08 18:26] LABS: Glucose, Whole Blood 140 mg/dL (60-115)
--- NOTE | 2025-06-08 19:15 | PHA.MEDREC ---
Addendum entered by Silvestre Merida PharmD 06/08/25 19:25: reviewed Original Note: Pharmacy Consult ? Medication Reconciliation Pharmacy has completed the medication reconciliation. Spoke to patients spouse Keisha over the phone to confirm med list.Spouse states patient is no longer taking Lokelma packets, Sodium Bicarbonate 650 mg. Spouse confirmed Amlodipine is now 5 mg daily, Furosamide 20 mg, however last fill date was 04/25 for 30 days, Humalog Kwik pen QID per sliding scale, last fill date was 03/02/25 for 37 days, Xarelto 2.5 mg however last fill date was 12/12/24 for 30 days, Tamsulosin 0.4 mg , last filled 11/19/24 for 30 days. Spouse states patient is taking Nortriptyline but didn't know the dosing and there his no claim history for. Patient had all his morning medications today.
[2025-06-08 19:43] LABS: Anion Gap 13 (12-20); Blood Urea Nitrogen 41 mg/dL (9-16); Calcium 8.0 mg/dL (8.4-10.2); Carbon Dioxide 24 mmol/L (22-29); Chloride 113 mmol/L (96-108); Creatinine Clr Calc Pharmacy 17.4; Estimated Glomerular Filt Rate 13; Potassium 4.7 mmol/L (3.3-5.1); Sodium 145 mmol/L (135-145)
[2025-06-08] MEDS: Albuterol Sulfate (0.083%) 2.5 MG/3 ML VIAL.NEB INHALE (20:40)
[2025-06-08] MEDS: Phytonadione (Vit K1) Oral 10 MG/ML AMPUL 5 MG PO (20:42)
[2025-06-08] MEDS: 0.9 % Sodium Chloride Flush 3 ML SYRINGE IVFLUSH (22:24)
[2025-06-09] VITALS (11 sets, daily range): BP systolic 99–154; BP diastolic 65–72; PULSE 68–91; RESP 17–25; TEMP 36.2–37.2; O2SAT 92–97
--- NOTE | 2025-06-09 06:12 | PC.NURSE ---
patient straight to dialysis from ED - arrived to floor from dialysis. per drying room supervisor right femoral line was leaking. drying room supervisor stated dressing was changed. dressing began oozing blood. MD notified, pressure applied and order obtained for vit K PO. dialysis line covered with gauze and pressure per Dr. Hayward. dressing saturated with blood x2. RN applied pressure to site for 20 minutes. to patients bedside to assess site. new pressure dressing with gauze applied by RN and MD. area wrapped with brennon and sandbag applied for additional pressure. will continue to monitor
[2025-06-09 07:35] LABS: Hematocrit 23.9 % (42.0-52.0); Hemoglobin 8.1 g/dl (14.0-18.0); Mean Corpuscular HGB Conc 33.9 g/dl (31.0-36.0); Mean Corpuscular Hemoglobin 30.0 pg (27.0-33.0); Mean Corpuscular Volume 88.5 fL (80.0-98.0); NRBC Abs Auto 0.000 X10*3/uL (0.0-0.012); NRBC Pct Auto 0.0 /100WBC (0.0-0.2); Platelet Count 182 X10*3/uL (160-400); Red Blood Count 2.70 X10*6/uL (4.60-5.80); White Blood Count 8.7 X10*3/uL (4.8-10.8)
[2025-06-09 07:47] LABS: Glucose, Whole Blood 165 mg/dL (60-115)
[2025-06-09] MEDS: 0.9 % Sodium Chloride Flush 3 ML SYRINGE IVFLUSH ×3 (08:16→19:31)
[2025-06-09] MEDS: Metoprolol Succinate ER 100 MG TAB.ER.24H PO (08:16)
--- NOTE | 2025-06-09 08:33 | P.PNNP_ITS ---
Subjective Subjective Date of Service: 06/09/25 Interval history: Here with shortness of breath/fluid overload. Following for renal failure requiring dialysis. Patient received 2 hour session of dialysis yesterday after placement of HD catheter in the ED. Reports today his breathing has significantly improved. More alert today. He made a liter of urine yesterday. some bleeding has been ongoing from HD catheter site in groin. DDAVP was ordered this a.m. by hospital medicine. Patient denies other new complaints/concerns. Physical Exam 2 Vital Signs: Vital Signs: Last Vital Signs Temp 98.0 F 06/09/25 08:00 Pulse 77 06/09/25 08:00 Resp 18 06/09/25 08:00 BP 141/65 H 06/09/25 08:00 Pulse Ox 95 06/09/25 08:00 O2 Del Method Room Air 06/09/25 08:00 BMI result Body Mass Index 22.1 Const: General: no acute distress and alert Resp: Effort & Inspection: normal respiratory effort Auscultation: clear to auscultation bilaterally Cardio: Rate: regular rate Rhythm: regular rhythm Heart sounds: S1 normal heart sound present and S2 normal heart sound present GI: Palpation (GI): Soft to palpation and nontender Skin: Rashes: no rashes Neuro: Other: no tremor. Extrem: General: Yes edema (trace pitting LLE edema, pitting. BKA RLE. ) Objective Data Labs 06/09/25 08:33 06/08/25 19:07 Labs: Laboratory Results - last 24 hr 06/08/25 06/08/25 06/08/25 12:25 12:26 12:39 WBC 8.2 RBC 2.81 L Hgb 8.2 L Hct 25.3 L MCV 90.0 MCH 29.2 MCHC 32.4 RDW 16.4 H Plt Count 203 MPV 10.6 Immature Gran % (Auto) 0.5 H Neut % (Auto) 72.9 Lymph % (Auto) 16.6 L [place] % (Auto) 5.6 Eos % (Auto) 3.2 Baso % (Auto) 1.2 Lymph # (Auto) 1.4 [place] # (Auto) 0.5 Eos # (Auto) 0.3 Baso # (Auto) 0.1 Abs Immat Gran (auto) 0.04 H Absolute Neuts (auto) 6.0 Absolute Nucleated RBC 0.000 Nucleated RBC % (auto) 0.0 ESR 70 H PT 14.0 H INR 1.2 H VBG pH 7.30 L VBG pCO2 24 VBG pO2 112 VBG HCO3 12 L VBG O2 Saturation 99.0 VBG Base Excess -12.3 Sodium 136 Potassium 6.2 H* Chloride 113 H Carbon Dioxide 13 L Anion Gap 16 BUN 90 H Creatinine 9.25 H* Estim Creat Clear Calc 8.4 Estimated GFR 6 POC Glucose Random Glucose 81 Lactic Acid 0.6 Calcium 7.8 L Magnesium 2.1 Total Bilirubin 0.2 AST 15 ALT 7 Alkaline Phosphatase 65 Troponin I High Sens 26.7 D C-Reactive Protein 0.73 H B-Natriuretic Peptide 3447 H Total Protein 6.7 Albumin 3.1 L Random Vancomycin 06/08/25 06/08/25 06/08/25 18:23 19:07 21:20 WBC RBC Hgb Hct MCV MCH MCHC RDW Plt Count MPV Immature Gran % (Auto) Neut % (Auto) Lymph % (Auto) [place] % (Auto) Eos % (Auto) Baso % (Auto) Lymph # (Auto) [place] # (Auto) Eos # (Auto) Baso # (Auto) Abs Immat Gran (auto) Absolute Neuts (auto) Absolute Nucleated RBC Nucleated RBC % (auto) ESR PT INR VBG pH VBG pCO2 VBG pO2 VBG HCO3 VBG O2 Saturation VBG Base Excess Sodium 145 Potassium 4.7 D Chloride 113 H Carbon Dioxide 24 Anion Gap 13 BUN 41 H Creatinine 4.48 H* Estim Creat Clear Calc 17.4 Estimated GFR 13 POC Glucose 140 H Random Glucose 155 H Lactic Acid Calcium 8.0 L Magnesium Total Bilirubin AST ALT Alkaline Phosphatase Troponin I High Sens C-Reactive Protein B-Natriuretic Peptide Total Protein Albumin Random Vancomycin 18.4 06/09/25 06/09/25 07:06 07:43 WBC 8.7 RBC 2.70 L Hgb 8.1 L Hct 23.9 L MCV 88.5 MCH 30.0 MCHC 33.9 RDW 16.2 H Plt Count 182 MPV 10.7 Immature Gran % (Auto) Neut % (Auto) Lymph % (Auto) [place] % (Auto) Eos % (Auto) Baso % (Auto) Lymph # (Auto) [place] # (Auto) Eos # (Auto) Baso # (Auto) Abs Immat Gran (auto) Absolute Neuts (auto) Absolute Nucleated RBC 0.000 Nucleated RBC % (auto) 0.0 ESR PT INR VBG pH VBG pCO2 VBG pO2 VBG HCO3 VBG O2 Saturation VBG Base Excess Sodium Potassium Chloride Carbon Dioxide Anion Gap BUN Creatinine Estim Creat Clear Calc Estimated GFR POC Glucose 165 H Random Glucose Lactic Acid Calcium Magnesium Total Bilirubin AST ALT Alkaline Phosphatase Troponin I High Sens C-Reactive Protein B-Natriuretic Peptide Total Protein Albumin Random Vancomycin Procedures Date of Service Date of Service: 06/09/25 Assessment & Plan Assessment and plan (1) Renal failure: Status: Acute Plan Renal failure requiring dialysis- hyperkalemia and metabolic acidosis have resolved with session of HD yesterday. Plan for HD again today, tomorrow 06/10, and then will start MWF dialysis. patient has temporary HD catheter in right groin, some bleeding- ddavp ordered per hospital medicine this a.m. recommend 1 unit pRBCs given bleeding- H&H 7.6 & 23.5. Per IR, needs to wait three days for tunneled line placement due to antiplatelet therapy prior to admission. Order has been placed. Ok to dialyze and change gauze as needed for oozing from catheter site. Patient remains hypervolemic, will remove 1-2L fluid as blood pressure tolerates. low K, low phos, low sodium diet. limit fluid intake to 1.5L/24 hours blood pressures acceptable at this time continue supportive care Discussed with Dr Ruiz Time Spent With Patient Time: Total time managing care of this patient today ____ minutes. Progress Note: Quality Stroke Does the patient have a stroke diagnosis?: No
[2025-06-09 08:43] LABS: Hematocrit 23.5 % (42.0-52.0); Hemoglobin 7.6 g/dl (14.0-18.0)
--- NOTE | 2025-06-09 09:24 | MHC.CM.PN ---
IMM 06/09/25, PT W/RESP FAILURE D/T FLUID OVERLOAD AND LEFT FOOT W/POSSIBLE OSTEO, CM MET W/PT WHO REPORTS HE LIVES W/WIFR [facility]LE[facility]A, HAS A CANE/WALKER/ELECTRIC WC AND DIABETIC SUPPLIES, PT REPORTS ASSISTS W/BS'S, PT HAS [employer] AND [facility] FOR [facility] AND [facility], PT'S GOAL FOR DC IS HOME. PT VERIFIES PCP IS KENIA BUITRAGO AND HCP IS /PRIMARY CONTACT [facility], COPY REQUESTED. PT MAY NEED [employer] IV ABX FOR OSTEO.
--- NOTE | 2025-06-09 10:02 | PM.CNGS ---
History of Present Illness Consult details Consult date: 06/09/25 Reason for consult: other (Renal failure) Narrative: 65-year-old gentleman known to be would previously seen by us for nonhealing ulcer in the hospital. He was actually originally followed by Dr. Gomez at [facility]. He now presented in fluid overload requiring dialysis. He has had a right femoral line which had significant bleeding overnight. It appears to be somewhat stable right now and has received DDAVP for this. He is now for routine evaluation for dialysis access. Of note patient is right-hand dominant Review of Systems Review of Systems: Yes all other systems are reviewed and are negative Constitutional: Constitutional: Reports no additional constitutional complaints ENT: Reports Normal hearing present Cardiovascular: Cardiovascular: Denies chest pain, Denies chest pain at rest, Denies chest pain with activity and Denies pedal edema Respiratory: Respiratory: Denies cough Gastrointestinal: Gastrointestinal: Denies abdominal pain Musculoskeletal: Musculoskeletal: Denies abnormal gait, Denies muscle cramps and Denies radiating pain into limb Integumentary/Breasts: Skin/Breast: Denies skin ulcer and Denies wounds Neurologic: Reports Normal hearing present and Denies abnormal gait Psychiatric: Psychiatric: Reports no additional psychiatric complaints PMFSH Past Medical History Medical History Chronic kidney disease (CKD), stage 5 Metabolic acidosis CKD (chronic kidney disease) stage 5, GFR less than 15 ml/min Anemia in chronic kidney disease (CKD) Hypertension CKD (chronic kidney disease) stage 4, GFR 15-29 ml/min Fluid overload Acute and chronic respiratory failure Sepsis Acute dehydration New onset of congestive heart failure Pneumonia Urinary urgency Urinary tract infection Urinary hesitancy Tubular adenoma of colon Smoker Seborrheic keratoses SND (sensorineural deafness) Right BKA infection Peripheral vascular disease WENDY (obstructive sleep apnea) Microalbuminuria Lung nodule seen on imaging study Lightheadedness Latent tuberculosis LVH (left ventricular hypertrophy) Abnormal PFTs Hyponatremia Hypertensive retinopathy of both eyes Hyperkalemia Hepatitis C Hearing loss of both ears Erectile dysfunction Cataract CKD (chronic kidney disease) Bladder wall thickening BPH (benign prostatic hyperplasia) Anticoagulated Anemia Peripheral neuropathy Diabetes mellitus, type II CVA (cerebral vascular accident) Adrenal nodule Kidney cysts Family History Family History Brother Diabetes Mother Diabetes Father Diabetes Surgical History Surgical History Hx of right BKA Social History Social History Household Members: Spouse Household Members Other:: ex- Housing: Apartment Do you presently have visiting nurse or other home services: Yes Alcohol intake: never Patient Tobacco Use Status: Former Tobacco user Tobacco use type: Cigarette Smoked in Last 30 Days: No e-Cigarette/Vaping Use: Former Use Use of substances other than those prescribed or required for medical reasons: No Advance Directives: No Advance Directives Information Provided: Yes Do you have a plan to hurt others: No Plan Recently lost weight without trying: Yes How much weight loss: 2-13 pounds Eating poorly because of decreased appetite: Yes Nutrition screen score: 4 service: No Meds Allergies Allergy/AdvReac Type Severity Reaction Status Date / Time morphine Allergy Hallucinati Verified 06/08/25 10:07 ons bupropion AdvReac Hallucinati Verified 06/08/25 10:07 ons Active Medications: Current Medications Acetaminophen (Acetaminophen 325 Mg Tablet) 650 mg PO Q6H PRN PRN Reason: Pain, Mild 1-3,fever,headache Albuterol Sulfate (Albuterol Sulfate (0.083%) 2.5 Mg/3 Ml Vial.Neb) 2.5 mg INHALE Q4H PRN PRN Reason: Shortness of Breath/Wheezing Last Admin: 06/08/25 20:40 Dose: 2.5 mg Amlodipine Besylate (Amlodipine Besylate 5 Mg Tablet) 5 mg PO DAILY ELIZA; Protocol Last Admin: 06/09/25 08:16 Dose: 5 mg Atorvastatin Calcium (Atorvastatin Calcium 10 Mg Tablet) 10 mg PO DAILY ELIZA Last Admin: 06/09/25 08:16 Dose: 10 mg Calcium Carbonate (Calcium Carbonate 750 Mg Tab.Chew) 750 mg PO Q4H PRN PRN Reason: Heartburn Finasteride (Finasteride 5 Mg Tablet) 5 mg PO DAILY [facility] Last Admin: 06/09/25 08:16 Dose: 5 mg Heparin Sodium (Porcine) (Heparin Sodium,Porcine 5,000 Unit/Ml Vial) 5,000 unit INTRACATH ONCE ONE Stop: 06/09/25 10:31 Heparin Sodium (Porcine) (Heparin Sodium,Porcine 5,000 Unit/Ml Vial) 5,000 unit INTRACATH ONCE ONE Stop: 06/10/25 12:01 Heparin Sodium (Porcine) (Heparin Sodium,Porcine 5,000 Unit/Ml Vial) 5,000 unit INTRACATH MOWEFR@1645 [facility] Hydralazine HCl (Hydralazine Hcl 50 Mg Tablet) 50 mg PO TID PRN; Protocol PRN Reason: Hypertension Piperacillin Sod/Tazobactam (Sod 4.5 gm/ Sodium Chloride) 100 mls @ 200 mls/hr IV Q12H [facility] Last Infusion: 06/08/25 22:56 Dose: Infused Vancomycin HCl 500 mg/ Sodium (Chloride) 110 mls @ 110 mls/hr IV ONCE ONE Stop: 06/08/25 22:14 Magnesium Hydroxide (Milk Of Magnesia 30 Ml Oral.Susp) 30 ml PO DAILY PRN PRN Reason: Constipation Melatonin (Melatonin 3 Mg Tablet) 6 mg PO BEDTIME PRN PRN Reason: Insomnia Last Admin: 06/08/25 23:35 Dose: 6 mg Metoprolol Succinate (Metoprolol Succinate Er 100 Mg Tab.Er.24h) 100 mg PO DAILY [facility]; Protocol Last Admin: 06/09/25 08:16 Dose: 100 mg Pharmacy Consult (Consult Rx Vancomycin Dosing) 1 each MISCELLANE DAILY PRN PRN Reason: Consult order Sodium Chloride (0.9 % Sodium Chloride Flush 3 Ml Syringe) 3 ml IVFLUSH QSHIFT [facility] Last Admin: 06/09/25 08:16 Dose: 3 ml Tamsulosin HCl (Tamsulosin Hcl 0.4 Mg Capsule) 0.4 mg PO DAILY [facility] Last Admin: 06/09/25 08:16 Dose: 0.4 mg Tiotropium [place]ounds (Tiotropium [place] 2.5 Mcg 1 Puff/2.5 Mcg Mist.Inhal) 2 puff INHALE RDAILY [facility] Home Medications ?Medication ?Instructions ?Recorded ?Confirmed ?Last Taken ?Type aspirin 81 mg chewable tablet 1 tab PO DAILY 12/19/24 06/08/25 06/08/25 History dapagliflozin propanediol 10 mg 10 mg PO DAILY 12/19/24 06/08/25 06/08/25 History tablet (Farxiga) finasteride 5 mg tablet 5 mg PO DAILY 12/19/24 06/08/25 06/08/25 History metoprolol succinate 100 mg 100 mg PO DAILY 12/19/24 06/08/25 06/08/25 History tablet,extended release 24 hr tamsulosin 0.4 mg capsule 0.4 mg PO DAILY 12/19/24 06/08/25 06/08/25 History umeclidinium 62.5 mcg/actuation 1 inh inhalation DAILY 12/19/24 06/08/25 06/08/25 History blister powder for inhalation (Incruse Ellipta) hydralazine 25 mg tablet 50 mg PO TID PRN Hypertension 12/30/24 06/08/25 02/19/25 09:00 History rivaroxaban 2.5 mg tablet (Xarelto) 2.5 mg PO BID 12/30/24 06/08/25 06/08/25 History atorvastatin 10 mg tablet 10 mg PO DAILY 05/26/25 06/08/25 06/08/25 History insulin lispro 100 unit/mL See Protocol subcut QIDACHS PRN 05/26/25 06/08/25 06/08/25 History subcutaneous pen (Humalog KwikPen Hypoglycemia (U-100) Insulin) Physical Exam Vital Signs: Vital Signs: Last Vital Signs Temp 98.0 F 06/09/25 08:00 Pulse 77 06/09/25 08:00 Resp 18 06/09/25 08:00 BP 141/65 H 06/09/25 08:00 Pulse Ox 95 06/09/25 08:00 O2 Del Method Room Air 06/09/25 08:00 BMI result Body Mass Index 22.1 Const: General: cooperative, healthy appearing and comfortable Orientation/consciousness: oriented to person, oriented to place and oriented to time HEENT: Head: Yes normal to inspection Neck: Neck: Yes normal visual inspection Carotids: no bruits Chest: Chest palpation & inspection: normal inspection of the chest Resp: Effort & Inspection: normal respiratory effort and able to speak in complete sentences Auscultation: clear to auscultation bilaterally, no crackles, no rales, no rhonchi and no wheezes Cardio: Rate: regular rate Rhythm: regular rhythm Heart sounds: S1 normal heart sound present and S2 normal heart sound present Bruits: no carotid bruits Peripheral pulses: Peripheral pulses 2+ throughout GI: Inspection: Yes normal to inspection Skin: Other: Right femoral line intact surrounding bandage small hematoma Wounds: no wounds Hair: normal Neuro: General: oriented to person, oriented to place and oriented to time Cranial nerves: Yes CN's II-XII intact bilaterally and Yes Normal hearing present Cognition (Neuro): normal cognition Motor exam (neuro): 5/5 motor strength present throughout Extrem: Other: venous exam: No significant superficial varicosities or spider telangiectasias, minimal edema General: No clubbing, No cyanosis and No edema Psych: Appearance: grossly normal Mental Status: mental status grossly normal Speech and movement: Normal speech and movement present Results Labs 06/09/25 08:33 06/08/25 19:07 Labs: Abnormal lab results 06/08/25 06/08/25 06/08/25 Range/Units 12:25 12:26 12:39 RBC 2.81 L (4.60-5.80) X10*6/uL Hgb 8.2 L (14.0-18.0) g/dl Hct 25.3 L (42.0-52.0) % RDW 16.4 H (11.0-16.0) % Immature Gran % (Auto) 0.5 H (0.0-0.4) % Lymph % (Auto) 16.6 L (20-40) % Abs Immat Gran (auto) 0.04 H (0.00-0.03) X10*3/uL ESR 70 H (0-15) MM/HR PT 14.0 H (10.9-12.4) SEC INR 1.2 H (0.9-1.1) VBG pH 7.30 L (7.32-7.43) VBG HCO3 12 L (22-26) mmol/L Potassium 6.2 H* (3.3-5.1) mmol/L Chloride 113 H (96-108) mmol/L Carbon Dioxide 13 L (22-29) mmol/L BUN 90 H (9-16) mg/dL Creatinine 9.25 H* (0.5-1.4) mg/dL POC Glucose (60-115) mg/dL Random Glucose (60-115) mg/dL Calcium 7.8 L (8.4-10.2) mg/dL C-Reactive Protein 0.73 H (< or = 0.50) mg/dL B-Natriuretic Peptide 3447 H (<100) pg/mL Albumin 3.1 L (3.5-5.0) g/dL Crossmatch 06/08/25 06/08/25 06/09/25 Range/Units 18:23 19:07 07:06 RBC 2.70 L (4.60-5.80) X10*6/uL Hgb 8.1 L (14.0-18.0) g/dl Hct 23.9 L (42.0-52.0) % RDW 16.2 H (11.0-16.0) % Immature Gran % (Auto) (0.0-0.4) % Lymph % (Auto) (20-40) % Abs Immat Gran (auto) (0.00-0.03) X10*3/uL ESR (0-15) MM/HR PT (10.9-12.4) SEC INR (0.9-1.1) VBG pH (7.32-7.43) VBG HCO3 (22-26) mmol/L Potassium (3.3-5.1) mmol/L Chloride 113 H (96-108) mmol/L Carbon Dioxide (22-29) mmol/L BUN 41 H (9-16) mg/dL Creatinine 4.48 H* (0.5-1.4) mg/dL POC Glucose 140 H (60-115) mg/dL Random Glucose 155 H (60-115) mg/dL Calcium 8.0 L (8.4-10.2) mg/dL C-Reactive Protein (< or = 0.50) mg/dL B-Natriuretic Peptide (<100) pg/mL Albumin (3.5-5.0) g/dL Crossmatch 06/09/25 06/09/25 06/09/25 Range/Units 07:43 08:33 09:23 RBC (4.60-5.80) X10*6/uL Hgb 7.6 L (14.0-18.0) g/dl Hct 23.5 L (42.0-52.0) % RDW (11.0-16.0) % Immature Gran % (Auto) (0.0-0.4) % Lymph % (Auto) (20-40) % Abs Immat Gran (auto) (0.00-0.03) X10*3/uL ESR (0-15) MM/HR PT (10.9-12.4) SEC INR (0.9-1.1) VBG pH (7.32-7.43) VBG HCO3 (22-26) mmol/L Potassium (3.3-5.1) mmol/L Chloride (96-108) mmol/L Carbon Dioxide (22-29) mmol/L BUN (9-16) mg/dL Creatinine (0.5-1.4) mg/dL POC Glucose 165 H (60-115) mg/dL Random Glucose (60-115) mg/dL Calcium (8.4-10.2) mg/dL C-Reactive Protein (< or = 0.50) mg/dL B-Natriuretic Peptide (<100) pg/mL Albumin (3.5-5.0) g/dL Crossmatch See Detail Short CBC 06/08/25 06/09/25 06/09/25 Range/Units 12:26 07:06 08:33 WBC 8.2 8.7 (4.8-10.8) X10*3/uL Hgb 8.2 L 8.1 L 7.6 L (14.0-18.0) g/dl Hct 25.3 L 23.9 L 23.5 L (42.0-52.0) % Plt Count 203 182 (160-400) X10*3/uL BMP 06/08/25 06/08/25 12:26 19:07 Sodium 136 145 Potassium 6.2 H* 4.7 D Chloride 113 H 113 H Carbon Dioxide 13 L 24 BUN 90 H 41 H Creatinine 9.25 H* 4.48 H* Calcium 7.8 L 8.0 L Liver Function 06/08/25 Range/Units 12:26 Total Bilirubin 0.2 (0.0-1.0) mg/dL AST 15 (5-37) U/L ALT 7 (0-40) U/L Alkaline Phosphatase 65 (39-117) U/L Albumin 3.1 L (3.5-5.0) g/dL All other labs normal. Assessment and Plan (1) Renal failure: Qualifiers: Acute renal failure type: unspecified Chronic kidney disease stage: unspecified stage Renal failure chronicity: acute on chronic Qualified Code(s): N17.9 - Acute kidney failure, unspecified; N18.9 - Chronic kidney disease, unspecified Status: Acute Plan In short patient has acute renal failure. Appears to be doing somewhat better. Potassium is down to 4.7. Labs from this morning are pending still. Should this not resolve will require more permanent line and may need tunneled IJ access, which can be performed by Interventional Radiology. We can follow this patient as an outpatient if permanent dialysis access is required. Thank you for allowing us to assist in his care. If there are any questions or concerns please do not hesitate to contact us. Procedures Date of Service Date of Service: 06/09/25
[2025-06-09 10:26] LABS: Blood Urea Nitrogen 82 mg/dL (9-16); Calcium 7.7 mg/dL (8.4-10.2); Creatinine Clr Calc Pharmacy 10.1; Estimated Glomerular Filt Rate 7
[2025-06-09 10:38] LABS: Anion Gap 17 (12-20); Carbon Dioxide 15 mmol/L (22-29); Chloride 111 mmol/L (96-108); Potassium 5.7 mmol/L (3.3-5.1); Sodium 137 mmol/L (135-145)
[2025-06-09 11:39] LABS: Glucose, Whole Blood 134 mg/dL (60-115)
[2025-06-09 12:20] LABS: Hematocrit 25.6 % (42.0-52.0); Hemoglobin 8.0 g/dl (14.0-18.0)
[2025-06-09] MEDS: Tiotropium Bromide 2.5 mcg 1 PUFF/2.5 MCG MIST.INHAL 2 PUFF INHALE (15:23)
[2025-06-09 16:02] LABS: Glucose, Whole Blood 122 mg/dL (60-115)
--- NOTE | 2025-06-09 17:19 | P.PNIM_ITS ---
Subjective Subjective Date of Service: 06/09/25 Interval History: Acute on chronic respiratory failure with hypoxia,anemia , catheter site bleeding Review of Systems Review of Systems: Yes all other systems are reviewed and are negative Physical Exam 2 Exam: Exam: Appearance: Alert.? Oriented X3.? not in distress.? cvs: [id number], [id number] , no murmur res: Air entry fair, slightly diminished at bases. abd: no rebound or guarding ,nt, bs present. ext pulses present , no cyanosis ,right femoral catheter area has some oozing but has improving with dressing and compression neuro: axo3 , nonfocal. Vital Signs: Vital Signs: Last Vital Signs Temp 98.9 F 06/09/25 16:00 Pulse 80 06/09/25 16:00 Resp 20 06/09/25 16:00 BP 99/66 06/09/25 16:00 Pulse Ox 92 06/09/25 16:00 O2 Del Method Room Air 06/09/25 16:00 BMI result Body Mass Index 22.1 Objective Data Active Medications Acetaminophen (Acetaminophen 325 Mg Tablet) 650 mg PO Q6H PRN PRN Reason: Pain, Mild 1-3,fever,headache Albuterol Sulfate (Albuterol Sulfate (0.083%) 2.5 Mg/3 Ml Vial.Neb) 2.5 mg INHALE Q4H PRN PRN Reason: Shortness of Breath/Wheezing Last Admin: 06/08/25 20:40 Dose: 2.5 mg Documented By: PETER Amlodipine Besylate (Amlodipine Besylate 5 Mg Tablet) 5 mg PO DAILY [facility]; Protocol Last Admin: 06/09/25 08:16 Dose: 5 mg Documented By: CHASE Atorvastatin Calcium (Atorvastatin Calcium 10 Mg Tablet) 10 mg PO DAILY [facility] Last Admin: 06/09/25 08:16 Dose: 10 mg Documented By: CHASE Calcium Carbonate (Calcium Carbonate 750 Mg Tab.Chew) 750 mg PO Q4H PRN PRN Reason: Heartburn Finasteride (Finasteride 5 Mg Tablet) 5 mg PO DAILY [facility] Last Admin: 06/09/25 08:16 Dose: 5 mg Documented By: CHASE Heparin Sodium (Porcine) (Heparin Sodium,Porcine 5,000 Unit/Ml Vial) 5,000 unit INTRACATH ONCE ONE Stop: 06/10/25 12:01 Heparin Sodium (Porcine) (Heparin Sodium,Porcine 5,000 Unit/Ml Vial) 5,000 unit INTRACATH MOWEFR@1645 [facility] Hydralazine HCl (Hydralazine Hcl 50 Mg Tablet) 50 mg PO TID PRN; Protocol PRN Reason: Hypertension Vancomycin HCl 500 mg/ Sodium (Chloride) 110 mls @ 110 mls/hr IV ONCE ONE Stop: 06/08/25 22:14 Piperacillin Sod/Tazobactam (Sod 4.5 gm/ Sodium Chloride) 100 mls @ 200 mls/hr IV Q12H [facility] Magnesium Hydroxide (Milk Of Magnesia 30 Ml Oral.Susp) 30 ml PO DAILY PRN PRN Reason: Constipation Melatonin (Melatonin 3 Mg Tablet) 6 mg PO BEDTIME PRN PRN Reason: Insomnia Last Admin: 06/08/25 23:35 Dose: 6 mg Documented By: RAGHAV Metoprolol Succinate (Metoprolol Succinate Er 100 Mg Tab.Er.24h) 100 mg PO DAILY [facility]; Protocol Last Admin: 06/09/25 08:16 Dose: 100 mg Documented By: CHASE Pharmacy Consult (Consult Rx Vancomycin Dosing) 1 each MISCELLANE DAILY PRN PRN Reason: Consult order Sodium Chloride (0.9 % Sodium Chloride Flush 3 Ml Syringe) 3 ml IVFLUSH QSHIFT [facility] Last Admin: 06/09/25 08:16 Dose: 3 ml Documented By: CHASE Tamsulosin HCl (Tamsulosin Hcl 0.4 Mg Capsule) 0.4 mg PO DAILY [facility] Last Admin: 06/09/25 08:16 Dose: 0.4 mg Documented By: CHASE Tiotropium [place] (Tiotropium [place] 2.5 Mcg 1 Puff/2.5 Mcg Mist.Inhal) 2 puff INHALE RDAILY [facility] Last Admin: 06/09/25 15:23 Dose: 2 puff Documented By: ELLIS Labs 06/09/25 12:15 06/09/25 09:23 Labs: Laboratory Results - last 24 hr 06/08/25 06/08/25 06/08/25 12:26 18:23 19:07 MCV MCH MCHC RDW Plt Count MPV Absolute Nucleated RBC Nucleated RBC % (auto) ESR 70 H Anion Gap 13 Estim Creat Clear Calc 17.4 Estimated GFR 13 POC Glucose 140 H Random Glucose 155 H Calcium 8.0 L Random Vancomycin Blood Type Antibody Screen Antibody Identification CHAVA, Polyspecific Positive CHAVA Work-up Crossmatch Crossmatch ([facility]) Blood Bank Comment 06/08/25 06/09/25 06/09/25 21:20 07:06 07:43 MCV 88.5 MCH 30.0 MCHC 33.9 RDW 16.2 H Plt Count 182 MPV 10.7 Absolute Nucleated RBC 0.000 Nucleated RBC % (auto) 0.0 ESR Anion Gap Estim Creat Clear Calc Estimated GFR POC Glucose 165 H Random Glucose Calcium Random Vancomycin 18.4 Blood Type Antibody Screen Antibody Identification CHAVA, Polyspecific Positive CHAVA Work-up Crossmatch Crossmatch ([facility]) Blood Bank Comment 06/09/25 06/09/25 06/09/25 09:23 11:29 15:01 MCV MCH MCHC RDW Plt Count MPV Absolute Nucleated RBC Nucleated RBC % (auto) ESR Anion Gap 17 Estim Creat Clear Calc 10.1 Estimated GFR 7 POC Glucose 134 H Random Glucose 179 H Calcium 7.7 L Random Vancomycin 9.7 L Blood Type A Negative Antibody Screen POSITIVE Antibody Identification Inconclusive CHAVA, Polyspecific NEGATIVE Positive CHAVA Work-up TNP Crossmatch See Detail Crossmatch ([facility]) See Detail Blood Bank Comment Technical 06/09/25 15:34 MCV MCH MCHC RDW Plt Count MPV Absolute Nucleated RBC Nucleated RBC % (auto) ESR Anion Gap Estim Creat Clear Calc Estimated GFR POC Glucose 122 H Random Glucose Calcium Random Vancomycin Blood Type Antibody Screen Antibody Identification CHAVA, Polyspecific Positive CHAVA Work-up Crossmatch Crossmatch ([facility]) Blood Bank Comment Microbiology Microbiology Results: Microbiology 06/08/25 12:45 Blood Culture - Preliminary Blood - Venous No growth after 24 hours. 06/08/25 12:25 Blood Culture - Preliminary Blood - Venous No growth after 24 hours. Assessment and Plan (1) Acute kidney failure: Status: Acute (2) Acute hyperkalemia: Status: Acute Plan 65-year-old male with history of CKD 5, AFib on Xarelto, hypertension, BPH, chronic respiratory failure, COPD, PVD, WENYD, diabetes, HFrEF who presented to the emergency department with 2 days of shortness of breath found to have worsening renal function with hyperkalemia plan for urgent dialysis Acute on chronic respiratory failure with hypoxia Due to fluid overload in the setting of worsening renal failure Right femoral line placed -received vitamin K, DDAVP , still has mild oozing but mostly bleeding is improving. Monitor H&H closely-H&H is around 8 last reading, added 1 PRBC Patient seen by Nephro, vascular, surgery currently bleeding improving so continue to monitor Hyperkalemia Due to above Patient is due for dialysis today, repeat BMP this evening. Left diabetic foot wound At site of left great toe amputation Imaging with concern for osteomyelitis Inflammatory markers pending MRI of the left foot ordered Blood cultures pending Continue vanco/Zosyn acute on chronic HFpEF continue baseline diuretics HD as above anemia of chronic disease H/H near baseline, above transfusion threshold Paroxysmal atrial fibrillation Hold Xarelto since oozing as well as aspirin BPH Continue baseline meds COPD No acute exacerbation continue baseline inhalers PVD: hold aspirin due to bleeding. dvt ppx - SCD Ongoing need for stay hospital for management of hyperkalemia fluid overload requiring urgent dialysis as well as concern for left foot diabetic ulcer and osteomyelitis requiring IV antibiotics and further advanced imaging Oozing at the dialysis site-need transfusion as well as close monitoring of the site as well as H&H monitoring. Quality Stroke Does the patient have a stroke diagnosis?: No VTE Prior VTE?: No VTE Risk Level:: Medical - moderate - high VTE Device Contraindication: N/A - Device Ordered VTE Drug Contraindication: Treatment Not Indicated
[2025-06-09 19:07] LABS: Hematocrit 26.3 % (42.0-52.0); Hemoglobin 8.8 g/dl (14.0-18.0); Mean Corpuscular HGB Conc 33.5 g/dl (31.0-36.0); Mean Corpuscular Hemoglobin 29.2 pg (27.0-33.0); Mean Corpuscular Volume 87.4 fL (80.0-98.0); NRBC Abs Auto 0.000 X10*3/uL (0.0-0.012); NRBC Pct Auto 0.0 /100WBC (0.0-0.2); Platelet Count 173 X10*3/uL (160-400); Red Blood Count 3.01 X10*6/uL (4.60-5.80); White Blood Count 9.8 X10*3/uL (4.8-10.8)
[2025-06-09 19:25] LABS: Anion Gap 14 (12-20); Blood Urea Nitrogen 61 mg/dL (9-16); Calcium 7.7 mg/dL (8.4-10.2); Carbon Dioxide 21 mmol/L (22-29); Chloride 109 mmol/L (96-108); Creatinine Clr Calc Pharmacy 12.2; Estimated Glomerular Filt Rate 9; Potassium 4.7 mmol/L (3.3-5.1); Sodium 139 mmol/L (135-145)
[2025-06-09 20:05] LABS: Glucose, Whole Blood 140 mg/dL (60-115)
[2025-06-10] VITALS (11 sets, daily range): BP systolic 138–167; BP diastolic 66–82; PULSE 74–86; RESP 15–20; TEMP 36.2–37.2; O2SAT 89–94
[2025-06-10 07:37] LABS: Glucose, Whole Blood 100 mg/dL (60-115)
[2025-06-10] MEDS: Tiotropium Bromide 2.5 mcg 1 PUFF/2.5 MCG MIST.INHAL 2 PUFF INHALE (07:42)
--- NOTE | 2025-06-10 08:24 | HO.PM.IMPN ---
Subjective Subjective Date of Service: 06/10/25 Interval History: anemia ,advanced renal dis Review of Systems noo new c/o. has some oozing at his catheter site. Review of Systems: Yes all other systems are reviewed and are negative Physical Exam Exam: Exam: Appearance: Alert.? Oriented X3.? not in distress.? cvs: [id number], [id number] , no murmur res: Air entry fair, slightly diminished at bases. abd: no rebound or guarding ,nt, bs present. ext pulses present , no cyanosis ,right femoral catheter area has mild oozing but has improving with dressing and compression neuro: axo3 , nonfocal. Vital Signs: Vital Signs: Last Vital Signs Temp 97.8 F 06/10/25 07:35 Pulse 83 06/10/25 07:44 Resp 20 06/10/25 07:44 BP 138/73 06/10/25 03:48 Pulse Ox 94 06/10/25 03:48 O2 Del Method Room Air 06/10/25 03:48 BMI result Body Mass Index 22.1 Objective Data Active Medications Acetaminophen (Acetaminophen 325 Mg Tablet) 650 mg PO Q6H PRN PRN Reason: Pain, Mild 1-3,fever,headache Albuterol Sulfate (Albuterol Sulfate (0.083%) 2.5 Mg/3 Ml Vial.Neb) 2.5 mg INHALE Q4H PRN PRN Reason: Shortness of Breath/Wheezing Last Admin: 06/08/25 20:40 Dose: 2.5 mg Documented By: PETER Amlodipine Besylate (Amlodipine Besylate 5 Mg Tablet) 5 mg PO DAILY [facility]; Protocol Last Admin: 06/09/25 08:16 Dose: 5 mg Documented By: CHASE Atorvastatin Calcium (Atorvastatin Calcium 10 Mg Tablet) 10 mg PO DAILY [facility] Last Admin: 06/09/25 08:16 Dose: 10 mg Documented By: CHASE Bacitracin (Bacitracin Oint 14 Gm Tube) 1 appl TOPICAL TID [facility]; Protocol Last Admin: 06/09/25 23:41 Dose: 1 appl Documented By: RAGHVA Calcium Carbonate (Calcium Carbonate 750 Mg Tab.Chew) 750 mg PO Q4H PRN PRN Reason: Heartburn Finasteride (Finasteride 5 Mg Tablet) 5 mg PO DAILY [facility] Last Admin: 06/09/25 08:16 Dose: 5 mg Documented By: CHASE Heparin Sodium (Porcine) (Heparin Sodium,Porcine 5,000 Unit/Ml Vial) 5,000 unit INTRACATH ONCE ONE Stop: 06/10/25 12:01 Heparin Sodium (Porcine) (Heparin Sodium,Porcine 5,000 Unit/Ml Vial) 5,000 unit INTRACATH MOWEFR@1645 [facility] Hydralazine HCl (Hydralazine Hcl 50 Mg Tablet) 50 mg PO TID PRN; Protocol PRN Reason: Hypertension Vancomycin HCl 500 mg/ Sodium (Chloride) 110 mls @ 110 mls/hr IV ONCE ONE Stop: 06/08/25 22:14 Piperacillin Sod/Tazobactam (Sod 4.5 gm/ Sodium Chloride) 100 mls @ 200 mls/hr IV Q12H [facility] Last Infusion: 06/10/25 06:40 Dose: Infused Documented By: RAGHAV Magnesium Hydroxide (Milk Of Magnesia 30 Ml Oral.Susp) 30 ml PO DAILY PRN PRN Reason: Constipation Melatonin (Melatonin 3 Mg Tablet) 6 mg PO BEDTIME PRN PRN Reason: Insomnia Last Admin: 06/09/25 23:40 Dose: 6 mg Documented By: RAGHAV Metoprolol Succinate (Metoprolol Succinate Er 100 Mg Tab.Er.24h) 100 mg PO DAILY [facility]; Protocol Last Admin: 06/09/25 08:16 Dose: 100 mg Documented By: CHASE Pharmacy Consult (Consult Rx Vancomycin Dosing) 1 each MISCELLANE DAILY PRN PRN Reason: Consult order Sodium Chloride (0.9 % Sodium Chloride Flush 3 Ml Syringe) 3 ml IVFLUSH QSHIFT [facility] Last Admin: 06/09/25 19:31 Dose: 3 ml Documented By: RAGHAV Tamsulosin HCl (Tamsulosin Hcl 0.4 Mg Capsule) 0.4 mg PO DAILY [facility] Last Admin: 06/09/25 08:16 Dose: 0.4 mg Documented By: CHASE Tiotropium [place] (Tiotropium [place] 2.5 Mcg 1 Puff/2.5 Mcg Mist.Inhal) 2 puff INHALE RDAILY [facility] Last Admin: 06/10/25 07:42 Dose: 2 puff Documented By: ELLIS Davies 06/10/25 12:53 06/09/25 18:51 Labs: Laboratory Results - last 24 hr 06/09/25 06/09/25 06/09/25 09:23 11:29 15:01 MCV MCH MCHC RDW Plt Count MPV Absolute Nucleated RBC Nucleated RBC % (auto) Anion Gap 17 Estim Creat Clear Calc 10.1 Estimated GFR 7 POC Glucose 134 H Random Glucose 179 H Calcium 7.7 L Random Vancomycin 9.7 L Blood Type A Negative Antibody Screen POSITIVE Antibody Identification Inconclusive CHAVA, Polyspecific NEGATIVE Positive CHAVA Work-up TNP Crossmatch See Detail Crossmatch ([facility]) See Detail Blood Bank Comment Technical 06/09/25 06/09/25 06/09/25 15:34 18:51 19:54 MCV 87.4 MCH 29.2 MCHC 33.5 RDW 16.1 H Plt Count 173 MPV 10.6 Absolute Nucleated RBC 0.000 Nucleated RBC % (auto) 0.0 Anion Gap 14 Estim Creat Clear Calc 12.2 Estimated GFR 9 POC Glucose 122 H 140 H Random Glucose 187 H Calcium 7.7 L Random Vancomycin Blood Type Antibody Screen Antibody Identification CHAVA, Polyspecific Positive CHAVA Work-up Crossmatch Crossmatch ([facility]) Blood Bank Comment 06/10/25 07:31 MCV MCH MCHC RDW Plt Count MPV Absolute Nucleated RBC Nucleated RBC % (auto) Anion Gap Estim Creat Clear Calc Estimated GFR POC Glucose 100 Random Glucose Calcium Random Vancomycin Blood Type Antibody Screen Antibody Identification CHAVA, Polyspecific Positive CHAVA Work-up Crossmatch Crossmatch ([facility]) Blood Bank Comment Microbiology Microbiology Results: Microbiology 06/08/25 12:45 Blood Culture - Preliminary Blood - Venous No growth after 24 hours. 06/08/25 12:25 Blood Culture - Preliminary Blood - Venous No growth after 24 hours. Assessment and Plan (1) Acute kidney failure: Status: Acute (2) Acute hyperkalemia: Status: Acute Plan 65-year-old male with history of CKD 5, AFib on Xarelto, hypertension, BPH, chronic respiratory failure, COPD, PVD, WENDY, diabetes, HFrEF who presented to the emergency department with 2 days of shortness of breath found to have worsening renal function with hyperkalemia plan for urgent dialysis Acute on chronic respiratory failure with hypoxia Due to fluid overload in the setting of worsening renal failure Right femoral line placed -received vitamin K, DDAVP , still has mild oozing but mostly bleeding is improving. Monitor H&H closely-H&H 8.8 s/p 1 PRBC on 06/09 has some oozing today,so far 1 dressing soaked (will change dresssing) -will check h/h and added Ddvap, vitamin k ,also 1 unit platlets . d/w vascular -continue above, if continue to bleed -will check with general surgery. Hyperkalemia Due to above Patient is due for dialysis today Left diabetic foot wound At site of left great toe amputation Imaging with concern for osteomyelitis Inflammatory markers pending MRI of the left foot -Multifocal osteomyelitis and second MTP joint septic arthritis and second proximal phalanx intraosseous abscess. There is evidence of osteomyelitis involving the distal end of the first metatarsal adjacent to the site of previous amputation. There is ulceration in the dorsal medial soft tissues that extends into the second MTP joint where there is a complex effusion with suspected intraosseous abscess involving the proximal half the proximal phalanx and osteomyelitis involving the distal diaphysis and head of the second metatarsal with erosive changes. The plantar plate is not well-demonstrated and a chronically torn versus destructive changes related to septic arthritis. Blood cultures negative @24hrs Continue vanco/Zosyn wound care eval vascular follow up acute on chronic HFpEF hold diuretics on hd HD as above anemia of chronic disease H/H near baseline, above transfusion threshold Paroxysmal atrial fibrillation Hold Xarelto since oozing as well as aspirin BPH Continue baseline meds COPD No acute exacerbation continue baseline inhalers PVD: hold aspirin due to bleeding. dvt ppx - SCD Ongoing need for stay hospital for management of hyperkalemia fluid overload requiring urgent dialysis as well as concern for left foot diabetic ulcer and osteomyelitis requiring IV antibiotics and further advanced imaging Oozing at the dialysis site-need transfusion as well as close monitoring of the site as well as H&H monitoring. Quality Stroke Does the patient have a stroke diagnosis?: No VTE Prior VTE?: No VTE Risk Level:: Medical - moderate - high VTE Device Contraindication: N/A - Device Ordered VTE Drug Contraindication: Treatment Not Indicated
[2025-06-10 11:58] LABS: Glucose, Whole Blood 104 mg/dL (60-115)
[2025-06-10 13:00] LABS: Hematocrit 26.6 % (42.0-52.0); Hemoglobin 8.9 g/dl (14.0-18.0)
[2025-06-10] MEDS: Metoprolol Succinate ER 100 MG TAB.ER.24H PO (13:01)
[2025-06-10] MEDS: 0.9 % Sodium Chloride Flush 3 ML SYRINGE IVFLUSH ×2 (13:03→14:40)
[2025-06-10 14:52] LABS: Platelet Count 154 X10*3/uL (160-400)
[2025-06-10 16:10] LABS: Glucose, Whole Blood 111 mg/dL (60-115)
[2025-06-10 20:13] LABS: Glucose, Whole Blood 133 mg/dL (60-115)
[2025-06-11] VITALS (13 sets, daily range): BP systolic 137–162; BP diastolic 66–78; PULSE 77–96; RESP 16–24; TEMP 36.3–37.4; O2SAT 90–100
[2025-06-11] MEDS: Albuterol Sulfate (0.083%) 2.5 MG/3 ML VIAL.NEB INHALE ×3 (00:56→09:11)
[2025-06-11] MEDS: Tiotropium Bromide 2.5 mcg 1 PUFF/2.5 MCG MIST.INHAL 2 PUFF INHALE (07:45)
[2025-06-11] MEDS: 0.9 % Sodium Chloride Flush 3 ML SYRINGE IVFLUSH ×3 (07:55→21:52)
[2025-06-11] MEDS: Metoprolol Succinate ER 100 MG TAB.ER.24H PO (07:56)
[2025-06-11 08:04] LABS: Glucose, Whole Blood 100 mg/dL (60-115)
[2025-06-11 08:22] LABS: Glucose, Whole Blood 112 mg/dL (60-115)
[2025-06-11] MEDS: Furosemide 100 MG/10 ML VIAL 80 MG IVPUSH ×2 (08:27→09:36)
[2025-06-11] MEDS: diazePAM 10 MG/2 ML CARTRIDGE 2.5 MG IVPUSH (08:27)
--- NOTE | 2025-06-11 08:28 | P.PNIM_ITS ---
Subjective Subjective Date of Service: 06/11/25 Interval History: rapid response-sob Review of Systems Patient says that he is feeling short of breath progressively this morning getting worse, also wheezing, feel anxious. Denies any chest pain or cough or phlegm or any fever Physical Exam 2 Exam: Exam: Appearance: Alert.? Oriented X3.? not in distress.? cvs: rrr, [id number] , no murmur res: Air entry fair, slightly diminished at bases. abd: no rebound or guarding ,nt, bs present. ext pulses present , no cyanosis ,right femoral catheter area has mild oozing but has improving with dressing and compression neuro: axo3 , nonfocal. Vital Signs: Vital Signs: Last Vital Signs Temp 98.5 F 06/11/25 07:47 Pulse 92 06/11/25 07:56 Resp 20 06/11/25 07:47 BP 162/77 H 06/11/25 07:58 Pulse Ox 94 06/11/25 07:47 O2 Del Method Nasal Cannula 06/11/25 07:47 O2 Flow Rate 2 06/11/25 07:47 BMI result Body Mass Index 22.1 Objective Data Active Medications Acetaminophen (Acetaminophen 325 Mg Tablet) 650 mg PO Q6H PRN PRN Reason: Pain, Mild 1-3,fever,headache Last Admin: 06/10/25 20:37 Dose: 650 mg Documented By: ALLEN Albuterol Sulfate (Albuterol Sulfate (0.083%) 2.5 Mg/3 Ml Vial.Neb) 2.5 mg INHALE Q4H PRN PRN Reason: Shortness of Breath/Wheezing Last Admin: 06/11/25 07:46 Dose: 2.5 mg Documented By: ELLIS Amlodipine Besylate (Amlodipine Besylate 5 Mg Tablet) 5 mg PO DAILY ELIZA; Protocol Last Admin: 06/11/25 07:58 Dose: 5 mg Documented By: WILLIAN Atorvastatin Calcium (Atorvastatin Calcium 10 Mg Tablet) 10 mg PO DAILY ELIZA Last Admin: 06/11/25 07:56 Dose: 10 mg Documented By: WILLIAN Bacitracin (Bacitracin Oint 14 Gm Tube) 1 appl TOPICAL TID ELIZA; Protocol Last Admin: 06/11/25 07:56 Dose: 1 appl Documented By: WILLIAN Calcium Carbonate (Calcium Carbonate 750 Mg Tab.Chew) 750 mg PO Q4H PRN PRN Reason: Heartburn Dextrose (Dextrose 50 % 25 Gm/50 Ml Syringe) 25 gm IVPUSH Q15M PRN; Protocol PRN Reason: per Hypoglycemia Standing Ord. Finasteride (Finasteride 5 Mg Tablet) 5 mg PO DAILY [facility] Last Admin: 06/11/25 07:56 Dose: 5 mg Documented By: WILLIAN Glucose (Glucose Gel 15 Gm Gel..Gram.) 15 gm PO Q15M PRN; Protocol PRN Reason: per Hypoglycemia Standing Ord. Heparin Sodium (Porcine) (Heparin Sodium,Porcine 5,000 Unit/Ml Vial) 5,000 unit INTRACATH MOWEFR@1645 [facility] Hydralazine HCl (Hydralazine Hcl 50 Mg Tablet) 50 mg PO TID PRN; Protocol PRN Reason: Hypertension Vancomycin HCl 500 mg/ Sodium (Chloride) 110 mls @ 110 mls/hr IV ONCE ONE Stop: 06/08/25 22:14 Piperacillin Sod/Tazobactam (Sod 4.5 gm/ Sodium Chloride) 100 mls @ 200 mls/hr IV Q12H [facility] Last Infusion: 06/10/25 23:25 Dose: Infused Documented By: ALLEN Insulin Human Lispro (Insulin Lispro 100 Unit/Ml 3 Ml Vial) [facility]; Protocol Last Admin: 06/11/25 07:55 Dose: Not Given Documented By: WILLIAN Non-Admin Reason: No Insulin Coverage Magnesium Hydroxide (Milk Of Magnesia 30 Ml Oral.Susp) 30 ml PO DAILY PRN PRN Reason: Constipation Melatonin (Melatonin 3 Mg Tablet) 6 mg PO BEDTIME PRN PRN Reason: Insomnia Last Admin: 06/09/25 23:40 Dose: 6 mg Documented By: RAGHAV Metoprolol Succinate (Metoprolol Succinate Er 100 Mg Tab.Er.24h) 100 mg PO DAILY [facility]; Protocol Last Admin: 06/11/25 07:56 Dose: 100 mg Documented By: WILLIAN Pharmacy Consult (Consult Rx Vancomycin Dosing) 1 each MISCELLANE DAILY PRN PRN Reason: Consult order Sodium Chloride (0.9 % Sodium Chloride Flush 3 Ml Syringe) [facility] Last Admin: 06/11/25 07:55 Dose: 3 ml Documented By: WILLIAN Tamsulosin HCl (Tamsulosin Hcl 0.4 Mg Capsule) 0.4 mg PO DAILY [facility] Last Admin: 06/11/25 07:57 Dose: 0.4 mg Documented By: WILLIAN Tiotropium [place] (Tiotropium [place] 2.5 Mcg 1 Puff/2.5 Mcg Mist.Inhal) 2 puff INHALE RDAILY [facility] Last Admin: 06/11/25 07:45 Dose: 2 puff Documented By: ELLIS Labs 06/11/25 08:41 06/11/25 08:41 Labs: Laboratory Results - last 24 hr 06/09/25 06/10/25 06/10/25 09:23 11:55 12:53 Plt Count 154 L POC Glucose 104 Random Vancomycin 18.5 Blood Type A Negative Antibody Screen POSITIVE Antibody Identification Inconclusive CHAVA, Polyspecific NEGATIVE Positive CHAVA Work-up TNP Crossmatch See Detail Crossmatch ([facility]) See Detail Blood Bank Comment Technical 06/10/25 06/10/25 06/10/25 16:06 17:57 19:58 Plt Count POC Glucose 111 133 H Random Vancomycin 18.1 Blood Type Antibody Screen Antibody Identification CHAVA, Polyspecific Positive CHAVA Work-up Crossmatch Crossmatch ([facility]) Blood Bank Comment 06/11/25 06/11/25 07:44 08:19 Plt Count POC Glucose 100 112 Random Vancomycin Blood Type Antibody Screen Antibody Identification CHAVA, Polyspecific Positive CHAVA Work-up Crossmatch Crossmatch ([facility]) Blood Bank Comment Microbiology Microbiology Results: Microbiology 06/08/25 12:45 Blood Culture - Preliminary Blood - Venous No growth after 48 hours. 06/08/25 12:25 Blood Culture - Preliminary Blood - Venous No growth after 48 hours. Assessment and Plan (1) Acute kidney failure: Status: Acute (2) Acute hyperkalemia: Status: Acute Plan 65-year-old male with history of CKD 5, AFib on Xarelto, hypertension, BPH, chronic respiratory failure, COPD, PVD, WENDY, diabetes, HFrEF who presented to the emergency department with 2 days of shortness of breath found to have worsening renal function with hyperkalemia plan for urgent dialysis Acute on chronic respiratory failure with hypoxia-possible multifactorial ( esrd, chf ,copd). ekg seems similar Added Lasix 80 mg IVx2, Solu-Medrol 40 mg IV, IV magnesium, DuoNeb-with the above treatment patient shortness of breaths somewhat improving, also added diazepam 2.5 for anxiety. Patient shortness of breaths somewhat improving hd catheter bleeidng minimal( improving) Plan: ABG-ph compensated ,not retaining co2 , troponin negative , [id number], chest x-ray-edema changes , echo Continue nebs, monitor pulse oximetry patient went for urgent hD-afterwards seems to be improving seen by cardiology-continue metoprolol /hydralazine , consider entersto per nephro. patient will need tunnel catheter in am. ICU also evaluated with the patient currently recommended to continue dialysis and monitor, presently not ICU need. Hyperkalemia Due to above Patient is due for dialysis today Left diabetic foot wound At site of left great toe amputation Imaging with concern for osteomyelitis Inflammatory markers pending MRI of the left foot -Multifocal osteomyelitis and second MTP joint septic arthritis and second proximal phalanx intraosseous abscess. There is evidence of osteomyelitis involving the distal end of the first metatarsal adjacent to the site of previous amputation. There is ulceration in the dorsal medial soft tissues that extends into the second MTP joint where there is a complex effusion with suspected intraosseous abscess involving the proximal half the proximal phalanx and osteomyelitis involving the distal diaphysis and head of the second metatarsal with erosive changes. The plantar plate is not well-demonstrated and a chronically torn versus destructive changes related to septic arthritis. Blood cultures negative @24hrs Continue vanco/Zosyn wound care eval vascular follow up acute on chronic HFpEF hold diuretics on hd HD as above anemia of chronic disease H/H near baseline, above transfusion threshold Paroxysmal atrial fibrillation Hold Xarelto since oozing as well as aspirin BPH Continue baseline meds COPD No acute exacerbation continue baseline inhalers PVD: hold aspirin due to bleeding. dvt ppx - SCD Ongoing need for stay hospital for management of hyperkalemia fluid overload requiring urgent dialysis as well as concern for left foot diabetic ulcer and osteomyelitis requiring IV antibiotics and further advanced imaging patient and his daughter updated in detail they both understand and in agreement with the above plan. Quality Stroke Does the patient have a stroke diagnosis?: No VTE Prior VTE?: No VTE Risk Level:: Medical - moderate - high VTE Device Contraindication: N/A - Device Ordered VTE Drug Contraindication: Treatment Not Indicated
[2025-06-11 08:54] LABS: ABG HCO3 18 mmol/L (22-26); ABG O2 % Saturation 100.0 %
[2025-06-11 09:09] LABS: Anion Gap 17 (12-20); Blood Urea Nitrogen 61 mg/dL (9-16); Calcium 7.9 mg/dL (8.4-10.2); Carbon Dioxide 18 mmol/L (22-29); Chloride 108 mmol/L (96-108); Creatinine Clr Calc Pharmacy 12.2; Estimated Glomerular Filt Rate 9; Potassium 5.0 mmol/L (3.3-5.1); Sodium 138 mmol/L (135-145)
[2025-06-11 09:13] LABS: Hematocrit 26.7 % (42.0-52.0); Hemoglobin 8.6 g/dl (14.0-18.0); Mean Corpuscular HGB Conc 32.2 g/dl (31.0-36.0); Mean Corpuscular Hemoglobin 29.2 pg (27.0-33.0); Mean Corpuscular Volume 90.5 fL (80.0-98.0); NRBC Abs Auto 0.000 X10*3/uL (0.0-0.012); NRBC Pct Auto 0.0 /100WBC (0.0-0.2); Platelet Count 160 X10*3/uL (160-400); Red Blood Count 2.95 X10*6/uL (4.60-5.80); Troponin-I High Sensitivity 23.3 ng/L (<3.5-35.0); White Blood Count 7.7 X10*3/uL (4.8-10.8)
[2025-06-11] MEDS: Albuterol/Iprat 2.5/0.5MG 3 ML AMPUL.NEB INHALE (09:41)
[2025-06-11 10:08] LABS: B Type Natriuretic Peptide 8461 pg/mL (<100)
--- NOTE | 2025-06-11 11:17 | P.CONCA_ITS ---
History of Present Illness History of Present Illness Date of Service: 06/11/25 Chief complaint: Hyperkalemia Narrative: [age] year gentleman presenting with hyperkalemia on background of chronic kidney disease. He also had shortness of breath due to volume overload. He received urgent dialysis and is undergoing dialysis today too. He was seen while on hemodialysis. He is saying that he is feeling much better. Plan is to remove approximately 3 L of fluids today. Denying any other complaints currently. [facility] Past Medical History Medical History Chronic kidney disease (CKD), stage 5 Metabolic acidosis CKD (chronic kidney disease) stage 5, GFR less than 15 ml/min Anemia in chronic kidney disease (CKD) Hypertension CKD (chronic kidney disease) stage 4, GFR 15-29 ml/min Fluid overload Acute and chronic respiratory failure Sepsis Acute dehydration New onset of congestive heart failure Pneumonia Urinary urgency Urinary tract infection Urinary hesitancy Tubular adenoma of colon Smoker Seborrheic keratoses SND (sensorineural deafness) Right BKA infection Peripheral vascular disease WENDY (obstructive sleep apnea) Microalbuminuria Lung nodule seen on imaging study Lightheadedness Latent tuberculosis LVH (left ventricular hypertrophy) Abnormal PFTs Hyponatremia Hypertensive retinopathy of both eyes Hyperkalemia Hepatitis C Hearing loss of both ears Erectile dysfunction Cataract CKD (chronic kidney disease) Bladder wall thickening BPH (benign prostatic hyperplasia) Anticoagulated Anemia Peripheral neuropathy Diabetes mellitus, type II CVA (cerebral vascular accident) Adrenal nodule Kidney cysts Family History Family History Brother Diabetes Mother Diabetes Father Diabetes Surgical History Surgical History Hx of right BKA Social History Social History Household Members: Spouse Household Members Other:: ex- Housing: Apartment Do you presently have visiting nurse or other home services: Yes Alcohol intake: never Patient Tobacco Use Status: Former Tobacco user Tobacco use type: Cigarette Smoked in Last 30 Days: No e-Cigarette/Vaping Use: Former Use Use of substances other than those prescribed or required for medical reasons: No Currently Displaying Signs/Symptoms of Drug Intoxication Withdrawal: No Advance Directives: No Advance Directives Information Provided: Yes Do you have a plan to hurt others: No Plan Recently lost weight without trying: Yes How much weight loss: 2-13 pounds Eating poorly because of decreased appetite: Yes Nutrition screen score: 4 service: No Meds Allergies Allergy/AdvReac Type Severity Reaction Status Date / Time morphine Allergy Hallucinati Verified 06/08/25 10:07 ons bupropion AdvReac Hallucinati Verified 06/08/25 10:07 ons Active Medications: Current Medications Acetaminophen (Acetaminophen 325 Mg Tablet) 650 mg PO Q6H PRN PRN Reason: Pain, Mild 1-3,fever,headache Last Admin: 06/10/25 20:37 Dose: 650 mg Albuterol Sulfate (Albuterol Sulfate (0.083%) 2.5 Mg/3 Ml Vial.Neb) 2.5 mg INHALE Q4H PRN PRN Reason: Shortness of Breath/Wheezing Last Admin: 06/11/25 09:11 Dose: 2.5 mg Amlodipine Besylate (Amlodipine Besylate 5 Mg Tablet) 5 mg PO DAILY [facility]; Protocol Last Admin: 06/11/25 07:58 Dose: 5 mg Atorvastatin Calcium (Atorvastatin Calcium 10 Mg Tablet) 10 mg PO DAILY [facility] Last Admin: 06/11/25 07:56 Dose: 10 mg Bacitracin (Bacitracin Oint 14 Gm Tube) 1 appl TOPICAL TID ELIZA; Protocol Last Admin: 06/11/25 07:56 Dose: 1 appl Calcium Carbonate (Calcium Carbonate 750 Mg Tab.Chew) 750 mg PO Q4H PRN PRN Reason: Heartburn Dextrose (Dextrose 50 % 25 Gm/50 Ml Syringe) 25 gm IVPUSH Q15M PRN; Protocol PRN Reason: per Hypoglycemia Standing Ord. Finasteride (Finasteride 5 Mg Tablet) 5 mg PO DAILY [facility] Last Admin: 06/11/25 07:56 Dose: 5 mg Glucose (Glucose Gel 15 Gm Gel..Gram.) 15 gm PO Q15M PRN; Protocol PRN Reason: per Hypoglycemia Standing Ord. Heparin Sodium (Porcine) (Heparin Sodium,Porcine 5,000 Unit/Ml Vial) 5,000 unit INTRACATH MOWEFR@1645 [facility] Hydralazine HCl (Hydralazine Hcl 50 Mg Tablet) 50 mg PO TID PRN; Protocol PRN Reason: Hypertension Vancomycin HCl 500 mg/ Sodium (Chloride) 110 mls @ 110 mls/hr IV ONCE ONE Stop: 06/08/25 22:14 Piperacillin Sod/Tazobactam (Sod 4.5 gm/ Sodium Chloride) 100 mls @ 200 mls/hr IV Q12H [facility] Last Infusion: 06/10/25 23:25 Dose: Infused Nitroglycerin (Nitroglycerin/D5w) 100 mg in 250 mls @ 0 mls/hr IVCONT .Q0M [facility]; Protocol Insulin Human Lispro (Insulin Lispro 100 Unit/Ml 3 Ml Vial) 0 unit SUBCUT QIDACHS [facility]; Protocol Last Admin: 06/11/25 07:55 Dose: Not Given Magnesium Hydroxide (Milk Of Magnesia 30 Ml Oral.Susp) 30 ml PO DAILY PRN PRN Reason: Constipation Melatonin (Melatonin 3 Mg Tablet) 6 mg PO BEDTIME PRN PRN Reason: Insomnia Last Admin: 06/09/25 23:40 Dose: 6 mg Metoprolol Succinate (Metoprolol Succinate Er 100 Mg Tab.Er.24h) 100 mg PO DAILY [facility]; Protocol Last Admin: 06/11/25 07:56 Dose: 100 mg Nitroglycerin (Nitroglycerin 2 % Oint 1 Gm Packet) 1 inch TRANSDERMA BID@0900,1500 [facility] Pharmacy Consult (Consult Rx Vancomycin Dosing) 1 each MISCELLANE DAILY PRN PRN Reason: Consult order Sodium Chloride (0.9 % Sodium Chloride Flush 3 Ml Syringe) 3 ml IVFLUSH QSHIFT [facility] Last Admin: 06/11/25 07:55 Dose: 3 ml Tamsulosin HCl (Tamsulosin Hcl 0.4 Mg Capsule) 0.4 mg PO DAILY [facility] Last Admin: 06/11/25 07:57 Dose: 0.4 mg Tiotropium Jackson (Tiotropium [place] 2.5 Mcg 1 Puff/2.5 Mcg Mist.Inhal) 2 puff INHALE RDAILY [facility] Last Admin: 06/11/25 07:45 Dose: 2 puff Home Medications ?Medication ?Instructions ?Recorded ?Confirmed ?Last Taken ?Type aspirin 81 mg chewable tablet 1 tab PO DAILY 12/19/24 06/08/25 06/08/25 History dapagliflozin propanediol 10 mg 10 mg PO DAILY 5 06/08/25 06/08/25 History tablet (Farxiga) finasteride 5 mg tablet 5 mg PO DAILY 12/19/2406/0806/08/25 History metoprolol succinate 100 mg 100 mg PO DAILY 12/19/24 0 06/08/25 06/08/25 History tablet,extended release 24 hr tamsulosin 0.4 mg capsule 0.4 mg PO DAILY 12/19/2401/2706/08/25 History umeclidinium 62.5 mcg/actuation 1 inh inhalation DAILY 12/19/24 06/08/25 06/08/25 History blister powder for inhalation (Incruse Ellipta) hydralazine 25 mg tablet 50 mg PO TID PRN Hypertensio n 12/30/24 06/08/25 02/19/25 09:00 History rivaroxaban 2.5 mg tablet (Xarelto) 2.5 mg PO BID 12/0406/08/25 06/08/25 History atorvastatin 10 mg tablet 10 mg PO DAILY 05/26/25 0901/2706/08/25 History insulin lispro 100 unit/mL See Protocol subcut QIDACHS PRN 05/26/25 06/08/25 06/08/25 History subcutaneous pen (Humalog KwikPen Hypoglycemia (U-100) Insulin) Physical Exam 2 Vital Signs: Vital Signs: Last Vital Signs Temp 98.4 F 06/11/25 08:39 Pulse 96 06/11/25 09:42 Resp 18 06/11/25 09:42 BP 157/76 H 06/11/25 09:36 Pulse Ox 98 06/11/25 08:39 O2 Del Method Oxymask 06/11/25 08:39 O2 Flow Rate 4 06/11/25 08:39 Oxygen Flow Rate 4 06/11/25 08:39 BMI result Body Mass Index 22.1 GENERAL APPEARANCE: in no acute distress, pleasant. NECK: no carotid bruit, mild jugular venous distention. SKIN: no suspicious lesions, warm and dry. HEART: no murmurs, regular rate and rhythm. LUNGS: clear to auscultation bilaterally. ABDOMEN: soft, nontender. EXTREMITIES: no edema. Right femoral dialysis catheter. PERIPHERAL PULSES: equal. NEUROLOGIC: No gross deficits, AAO X 3 Objective Labs and Meds 06/11/25 08:41 06/11/25 08:41 Lab results: Laboratory Results - last 24 hr 06/09/25 06/10/25 06/10/25 09:23 11:55 12:53 WBC RBC Hgb 8.9 L Hct 26.6 L MCV MCH MCHC RDW Plt Count 154 L MPV Absolute Nucleated RBC Nucleated RBC % (auto) O2 Saturation ABG pH at Pt Temp ABG pCO2 at Pt Temp ABG pO2 at Pt Temp ABG HCO3 ABG Base Excess (Actual) Sodium Potassium Chloride Carbon Dioxide Anion Gap BUN Creatinine Estim Creat Clear Calc Estimated GFR POC Glucose 104 Random Glucose Calcium Troponin I High Sens B-Natriuretic Peptide Random Vancomycin 18.5 Blood Type A Negative Antibody Screen POSITIVE Antibody Identification Inconclusive CHAVA, Polyspecific NEGATIVE Positive CHAVA Work-up TNP Crossmatch See Detail Crossmatch ([facility]) See Detail Blood Bank Comment Technical 06/10/25 06/10/25 06/10/25 16:06 17:57 19:58 WBC RBC Hgb Hct MCV MCH MCHC RDW Plt Count MPV Absolute Nucleated RBC Nucleated RBC % (auto) O2 Saturation ABG pH at Pt Temp ABG pCO2 at Pt Temp ABG pO2 at Pt Temp ABG HCO3 ABG Base Excess (Actual) Sodium Potassium Chloride Carbon Dioxide Anion Gap BUN Creatinine Estim Creat Clear Calc Estimated GFR POC Glucose 111 133 H Random Glucose Calcium Troponin I High Sens B-Natriuretic Peptide Random Vancomycin 18.1 Blood Type Antibody Screen Antibody Identification CHAVA, Polyspecific Positive CHAVA Work-up Crossmatch Crossmatch ([facility]) Blood Bank Comment 06/11/25 06/11/25 06/11/25 07:44 08:19 08:41 WBC 7.7 RBC 2.95 L Hgb 8.6 L Hct 26.7 L MCV 90.5 MCH 29.2 MCHC 32.2 RDW 16.1 H Plt Count 160 MPV 10.9 Absolute Nucleated RBC 0.000 Nucleated RBC % (auto) 0.0 O2 Saturation ABG pH at Pt Temp ABG pCO2 at Pt Temp ABG pO2 at Pt Temp ABG HCO3 ABG Base Excess (Actual) Sodium 138 Potassium 5.0 Chloride 108 Carbon Dioxide 18 L Anion Gap 17 BUN 61 H Creatinine 6.17 H* Estim Creat Clear Calc 12.2 Estimated GFR 9 POC Glucose 100 112 Random Glucose 120 H Calcium 7.9 L Troponin I High Sens 23.3 B-Natriuretic Peptide 8461 H Random Vancomycin Blood Type Antibody Screen Antibody Identification CHAVA, Polyspecific Positive CHAVA Work-up Crossmatch Crossmatch ([facility]) Blood Bank Comment 06/11/25 08:48 WBC RBC Hgb Hct MCV MCH MCHC RDW Plt Count MPV Absolute Nucleated RBC Nucleated RBC % (auto) O2 Saturation 100.0 ABG pH at Pt Temp 7.38 ABG pCO2 at Pt Temp 30 L ABG pO2 at Pt Temp 117 H ABG HCO3 18 L ABG Base Excess (Actual) -5.8 Sodium Potassium Chloride Carbon Dioxide Anion Gap BUN Creatinine Estim Creat Clear Calc Estimated GFR POC Glucose Random Glucose Calcium Troponin I High Sens B-Natriuretic Peptide Random Vancomycin Blood Type Antibody Screen Antibody Identification CHAVA, Polyspecific Positive CHAVA Work-up Crossmatch Crossmatch ([facility]) Blood Bank Comment Assessment and Plan (1) CHF (congestive heart failure): Status: Acute Plan 65 year gentleman with advanced CKD presenting with hyperkalemia and volume overload. He underwent urgent dialysis and is on hemodialysis currently. Volume optimization with hemodialysis. Echocardiography in April has shown EF of 35-40%. He is on dapagliflozin and hydralazine. He is on Toprol-XL 100 mg daily. If he is going to be on hemodialysis then discuss with Nephrology whether Entresto can be added. Thank you for allowing me to participate in the care of your patient. Please feel free to contact me if you have any questions. Procedures Date of Service Date of Service: 06/11/25
--- NOTE | 2025-06-11 11:20 | W.PM.CCCN ---
History of Present Illness Data of Consult Service Date: 06/11/25 Primary Care Provider: Michelle Long MD HPI Reason for consult: Dyspnea, hypoxia 65-year-old gentleman with underlying CKD stage 5, AFib on anticoagulation, diastolic dysfunction, hypertension, BPH, COPD, WENDY, diabetes mellitus, PVD admitted on 06/08/2025 with several-day history of progressive dyspnea, also noted to have worsening renal function requiring initiation of hemodialysis support for pulmonary edema. Hospital course significant for recurrent episodes of dyspnea, though still with moderate oxygen requirements, now on 4 L of supplemental oxygen via OxyMask saturating 98%. X-ray this a.m. demonstrating pulmonary edema. Review of Systems Constitutional: Constitutional: Denies daytime sleepiness, Denies excessive sweating, Denies fatigue, Denies fever(s), Denies lethargy, Denies malaise, Denies night sweats, Denies snoring and Denies weight loss Eyes: Eyes: Denies blurry vision and Denies itchy eyes ENT: Denies nasal congestion, Denies post nasal drip, Denies sinus pain, Denies sinus pressure and Denies other ( Thrush) Cardiovascular: Cardiovascular: Denies chest pain, Denies pedal edema, Reports dyspnea, Reports dyspnea on exertion, Denies orthopnea and Denies paroxysmal nocturnal dyspnea Respiratory: Respiratory: Denies cough, Denies hemoptysis, Denies excessive phlegm production, Reports dyspnea, Reports dyspnea on exertion, Denies snoring and Denies wheezing Gastrointestinal: Gastrointestinal: Denies abdominal pain and Denies heartburn Musculoskeletal: Musculoskeletal: Denies myalgias, Denies arthralgias and Denies joint swelling Integumentary/Breasts: Skin/Breast: Denies rash Neurologic: Denies memory loss and Denies seizure-like activity Psychiatric: Psychiatric: Denies abnormal sleep pattern, Denies anxiety and Denies memory loss Endocrine: Endocrine: Denies excessive sweating, Denies fatigue and Denies heat intolerance Hematologic/Lymphatic: Hematologic/Lymphatic: Denies easy bruising Allergic/Immunologic: Allergic/Immunologic: Denies itchy eyes, Denies seasonal rhinorrhea and Denies wheezing PMFSH Past Medical History Medical History Chronic kidney disease (CKD), stage 5 Metabolic acidosis CKD (chronic kidney disease) stage 5, GFR less than 15 ml/min Anemia in chronic kidney disease (CKD) Hypertension CKD (chronic kidney disease) stage 4, GFR 15-29 ml/min Fluid overload Acute and chronic respiratory failure Sepsis Acute dehydration New onset of congestive heart failure Pneumonia Urinary urgency Urinary tract infection Urinary hesitancy Tubular adenoma of colon Smoker Seborrheic keratoses SND (sensorineural deafness) Right BKA infection Peripheral vascular disease WENDY (obstructive sleep apnea) Microalbuminuria Lung nodule seen on imaging study Lightheadedness Latent tuberculosis LVH (left ventricular hypertrophy) Abnormal PFTs Hyponatremia Hypertensive retinopathy of both eyes Hyperkalemia Hepatitis C Hearing loss of both ears Erectile dysfunction Cataract CKD (chronic kidney disease) Bladder wall thickening BPH (benign prostatic hyperplasia) Anticoagulated Anemia Peripheral neuropathy Diabetes mellitus, type II CVA (cerebral vascular accident) Adrenal nodule Kidney cysts Family History Family History Brother Diabetes Mother Diabetes Father Diabetes Surgical History Surgical History Hx of right BKA Social History Social History Household Members: Spouse Household Members Other:: ex- Housing: Apartment Do you presently have visiting nurse or other home services: Yes Alcohol intake: never Patient Tobacco Use Status: Former Tobacco user Tobacco use type: Cigarette Smoked in Last 30 Days: No e-Cigarette/Vaping Use: Former Use Use of substances other than those prescribed or required for medical reasons: No Currently Displaying Signs/Symptoms of Drug Intoxication Withdrawal: No Advance Directives: No Advance Directives Information Provided: Yes Do you have a plan to hurt others: No Plan Recently lost weight without trying: Yes How much weight loss: 2-13 pounds Eating poorly because of decreased appetite: Yes Nutrition screen score: 4 service: No Meds Allergies Allergy/AdvReac Type Severity Reaction Status Date / Time morphine Allergy Hallucinati Verified 06/08/25 10:07 ons bupropion AdvReac Hallucinati Verified 06/08/25 10:07 ons Active Medications: Current Medications Acetaminophen (Acetaminophen 325 Mg Tablet) 650 mg PO Q6H PRN PRN Reason: Pain, Mild 1-3,fever,headache Last Admin: 06/10/25 20:37 Dose: 650 mg Albuterol Sulfate (Albuterol Sulfate (0.083%) 2.5 Mg/3 Ml Vial.Neb) 2.5 mg INHALE Q4H PRN PRN Reason: Shortness of Breath/Wheezing Last Admin: 06/11/25 09:11 Dose: 2.5 mg Amlodipine Besylate (Amlodipine Besylate 5 Mg Tablet) 5 mg PO DAILY [facility]; Protocol Last Admin: 06/11/25 07:58 Dose: 5 mg Atorvastatin Calcium (Atorvastatin Calcium 10 Mg Tablet) 10 mg PO DAILY [facility] Last Admin: 06/11/25 07:56 Dose: 10 mg Bacitracin (Bacitracin Oint 14 Gm Tube) 1 appl TOPICAL TID [facility]; Protocol Last Admin: 06/11/25 07:56 Dose: 1 appl Calcium Carbonate (Calcium Carbonate 750 Mg Tab.Chew) 750 mg PO Q4H PRN PRN Reason: Heartburn Dextrose (Dextrose 50 % 25 Gm/50 Ml Syringe) 25 gm IVPUSH Q15M PRN; Protocol PRN Reason: per Hypoglycemia Standing Ord. Finasteride (Finasteride 5 Mg Tablet) 5 mg PO DAILY [facility] Last Admin: 06/11/25 07:56 Dose: 5 mg Glucose (Glucose Gel 15 Gm Gel..Gram.) 15 gm PO Q15M PRN; Protocol PRN Reason: per Hypoglycemia Standing Ord. Heparin Sodium (Porcine) (Heparin Sodium,Porcine 5,000 Unit/Ml Vial) 5,000 unit INTRACATH MOWEFR@1645 [facility] Hydralazine HCl (Hydralazine Hcl 50 Mg Tablet) 50 mg PO TID PRN; Protocol PRN Reason: Hypertension Vancomycin HCl 500 mg/ Sodium (Chloride) 110 mls @ 110 mls/hr IV ONCE ONE Stop: 06/08/25 22:14 Piperacillin Sod/Tazobactam (Sod 4.5 gm/ Sodium Chloride) 100 mls @ 200 mls/hr IV Q12H [facility] Last Infusion: 06/10/25 23:25 Dose: Infused Nitroglycerin (Nitroglycerin/D5w) 100 mg in 250 mls @ 0 mls/hr IVCONT .Q0M [facility]; Protocol Insulin Human Lispro (Insulin Lispro 100 Unit/Ml 3 Ml Vial) 0 unit SUBCUT QIDACHS [facility]; Protocol Last Admin: 06/11/25 07:55 Dose: Not Given Magnesium Hydroxide (Milk Of Magnesia 30 Ml Oral.Susp) 30 ml PO DAILY PRN PRN Reason: Constipation Melatonin (Melatonin 3 Mg Tablet) 6 mg PO BEDTIME PRN PRN Reason: Insomnia Last Admin: 06/09/25 23:40 Dose: 6 mg Metoprolol Succinate (Metoprolol Succinate Er 100 Mg Tab.Er.24h) 100 mg PO DAILY [facility]; Protocol Last Admin: 06/11/25 07:56 Dose: 100 mg Nitroglycerin (Nitroglycerin 2 % Oint 1 Gm Packet) 1 inch TRANSDERMA BID@0900,1500 [facility] Pharmacy Consult (Consult Rx Vancomycin Dosing) 1 each MISCELLANE DAILY PRN PRN Reason: Consult order Sodium Chloride (0.9 % Sodium Chloride Flush 3 Ml Syringe) 3 ml IVFLUSH QSHIFT [facility] Last Admin: 06/11/25 07:55 Dose: 3 ml Tamsulosin HCl (Tamsulosin Hcl 0.4 Mg Capsule) 0.4 mg PO DAILY [facility] Last Admin: 06/11/25 07:57 Dose: 0.4 mg Tiotropium [place] (Tiotropium [place] 2.5 Mcg 1 Puff/2.5 Mcg Mist.Inhal) 2 puff INHALE RDAILY [facility] Last Admin: 06/11/25 07:45 Dose: 2 puff Home Medications ?Medication ?Instructions ?Recorded ?Confirmed ?Last Taken ?Type aspirin 81 mg chewable tablet 1 tab PO DAILY 12/19/24 06/08/25 06/08/25 History dapagliflozin propanediol 10 mg 10 mg PO DAILY 12/19/24 06/08/25 06/08/25 History tablet (Farxiga) finasteride 5 mg tablet 5 mg PO DAILY 12/19/24 06/08/25 06/08/25 History metoprolol succinate 100 mg 100 mg PO DAILY 12/19/24 06/08/25 06/08/25 History tablet,extended release 24 hr tamsulosin 0.4 mg capsule 0.4 mg PO DAILY 12/19/24 06/08/25 06/08/25 History umeclidinium 62.5 mcg/actuation 1 inh inhalation DAILY 12/19/24 06/08/25 06/08/25 History blister powder for inhalation (Incruse Ellipta) hydralazine 25 mg tablet 50 mg PO TID PRN Hypertension 12/30/24 06/08/25 02/19/25 09:00 History rivaroxaban 2.5 mg tablet (Xarelto) 2.5 mg PO BID 12/30/24 06/08/25 06/08/25 History atorvastatin 10 mg tablet 10 mg PO DAILY 05/26/25 06/08/25 06/08/25 History insulin lispro 100 unit/mL See Protocol subcut QIDACHS PRN 05/26/25 06/08/25 06/08/25 History subcutaneous pen (Humalog KwikPen Hypoglycemia (U-100) Insulin) Physical Exam Vital Signs: Vital Signs: Last Vital Signs Temp 98.4 F 06/11/25 08:39 Pulse 96 06/11/25 09:42 Resp 18 06/11/25 09:42 BP 157/76 H 06/11/25 09:36 Pulse Ox 98 06/11/25 08:39 O2 Del Method Oxymask 06/11/25 08:39 O2 Flow Rate 4 06/11/25 08:39 Oxygen Flow Rate 4 06/11/25 08:39 BMI result Body Mass Index 22.1 Const: General: no acute distress, alert and awake Eyes: Sclerae: sclerae normal EOM: EOMs intact bilaterally Neck: Neck: Yes no lymphadenopathy, Yes trachea midline and Yes supple Resp: Effort & Inspection: normal respiratory effort and no respiratory distress Auscultation: crackles (Bilateral) Cardio: Rate: regular rate Rhythm: regular rhythm Heart sounds: no gallops, no murmurs and no rubs GI: Palpation (GI): Soft to palpation and Other GI palpation findings present ( Nontender) Auscultation: normal bowel sounds Extrem: General: No clubbing, No cyanosis and Yes edema (Trace bilateral) Results Labs 06/11/25 08:41 06/11/25 08:41 Labs: Short CBC 06/10/25 06/11/25 Range/Units 12:53 08:41 WBC 7.7 (4.8-10.8) X10*3/uL Hgb 8.9 L 8.6 L (14.0-18.0) g/dl Hct 26.6 L 26.7 L (42.0-52.0) % Plt Count 154 L 160 (160-400) X10*3/uL BMP 06/11/25 08:41 Sodium 138 Potassium 5.0 Chloride 108 Carbon Dioxide 18 L BUN 61 H Creatinine 6.17 H* Calcium 7.9 L Microbiology Microbiology Results: Microbiology 06/08/25 12:45 Blood - Venous Blood Culture - Preliminary No growth after 48 hours. 06/08/25 12:25 Blood - Venous Blood Culture - Preliminary No growth after 48 hours. Assessment and Plan (1) Acute respiratory failure with hypoxia: Status: Acute (2) Pulmonary edema: Status: Resolved (3) Acute kidney injury superimposed on CKD: Status: Resolved Plan Impression: 65-year-old gentleman admitted with progressive dyspnea secondary to worsening of underlying chronic kidney disease now requiring initiation of hemodialysis support with hospital course complicated by recurrent pulmonary edema. Recommendation: Agree with urgent hemodialysis for recurrence of pulmonary edema. At this time patient does not require intensive care unit level of monitoring, please notify for re-evaluation, if patient's condition changes.
[2025-06-11] MEDS: Nitroglycerin 2 % Oint 1 GM Packet 1 INCH TRANSDERMA (14:45)
[2025-06-11 17:08] LABS: Glucose, Whole Blood 185 mg/dL (60-115)
[2025-06-11 21:17] LABS: Glucose, Whole Blood 181 mg/dL (60-115)
[2025-06-12] VITALS (12 sets, daily range): BP systolic 136–170; BP diastolic 64–83; PULSE 74–100; RESP 14–20; TEMP 36.9–37.3; O2SAT 94–100
[2025-06-12 04:12] LABS: HBS Num1 5.07 mIU/mL (0-7.99); HBc Num1 0.08 S/CO (0.00-0.79); HBsAGNum1 0.49 S/CO (0.00-0.99); Hepatitis B Surface Antigen Negative (Negative); ~Hepatitis B Surface Antibody NONREACTIVE (Nonreactive)
--- NOTE | 2025-06-12 07:00 | CA_ITS ---
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 Severely dilated left ventricle with mild LVH with severely reduced LV ejection fraction with 20-25% with grade 3 diastolic dysfunction 2. Moderate left atrial enlargement 3. Normal cardiac valvular Dopplers 4. Normal RV systolic pressure 5. No pericardial effusion Findings Procedure Information Contrast agent, definity, is being given per protocol without apparent complications. Left Ventricle Severely increased left ventricular cavity size. There is mildly increased left ventricular wall thickness. The left ventricular systolic function is severely decreased. The visually estimated ejection fraction is between 20 25%. Spectral Doppler is indicative of a restrictive filling pattern. E/E prime ratio is >15, consistent with elevated filling pressures. Evidence suggests grade III (severe) diastolic dysfunction. Right Ventricle Mildly increased right ventricular cavity size. There is normal right ventricular systolic function. Atria The left atrium is moderately dilated. Interatrial shunt cannot be excluded. The right atrium is mildly dilated. Aortic Valve There is mild calcification of the aortic valve. There is no aortic valve stenosis. There is no aortic valve regurgitation. Mitral Valve There is mild anterior and posterior mitral leaflet thickening. There is no mitral valve regurgitation. There is no mitral valve stenosis. Pulmonic Valve The pulmonic valve is likely normal. Tricuspid Valve Likely normal tricuspid valve structure and function. There is trace tricuspid valve regurgitation. The right ventricular systolic pressure is normal. The right ventricular systolic pressure is 13 mmHg. Normal right atrial pressure. There is no evidence of pulmonary hypertension. Great Vessels All visible segments of the aorta are normal in size. The pulmonary artery was not well visualized. There is no dilatation of the ascending aorta measuring 3.40 cm. Small plaque is seen in the sino tubular ridge. Venous The inferior vena cava is normal in size and collapses greater than 50% with inspiration. Pericardium/Pleural There is no evidence of pericardial effusion. There is a moderate left sided pleural effusion. Prior Study Comparison Changes noted compared to prior study dated: 04/21/2025. LV function is significantly reduced Measurements 2D Linear Measurements IVSd: 1.22 0.6-0.9/0.6-1.0 cm LVIDd: 6.36 3.9-5.3/4.2-5.9 cm LVIDd Index: 3.26 2.4-3.2/2.2-3.1 cm/m2 LVIDs: 5.04 2.0-3.6 cm LVPWd: 1.22 0.7-1.1 cm LA Diam: 4.30 2.7-3.8/3.0-4.0 cm LAIDs Index: 2.21 1.5-2.3 cm/m2 LV Mass: 441.18 67-162/88-224 g LV Mass Index: 226.25 43-95/49-115 g/m2 LVOT Diam: 2.10 3.0+(-)1.3 cm 2D Systolic Function EF 4C: 26.00 >55% EF 2C: 20.30 >55% EF BiP: 22.00 >55% Mitral Valve MV VTI: 0.35 MV Pk Job: 1.36 MV Mn Job: 0.70 MV Pk Grad: 7.00 MV Mn Grad: 3.00 MV Pk E: 1.38 MV PK A: 0.53 MV Decel Time: 141.00 E/A: 2.60 E'Lateral: 11.60 E'Medial: 4.57 E/E' Med: 30.20 E/E' Lat: 11.90 PHT: 41.00 MVA PHT: 5.37 MVA Continuity: 2.26 Decel [place]: 9.73 Aortic Valve AoV Pk Job: 1.45 AoV Mn Job: 0.85 AoV VTI: 0.29 AoV Pk Grad: 8.00 Aov Mn Grad: 4.00 MELANY Cont.VTI: 2.72 LVOT LVOT Pk Job: 1.06 LVOT Mn Job: 0.76 LVOT VTI: 0.23 LVOT Pk Grad: 4.00 LVOT Mn Grad: 3.00 LVOT Diam: 2.10 LVOT Area: 3.46 Diastolic Function MV Pk E: 1.38 MV Pk A: 0.53 E/A: 2.60 E'Medial: 4.57 E/E' Med: 30.20 E' Laterial: 11.60 E/E' Lat: 11.90 Right Ventricle TAPSE (mm): 22.40 TVS' Job: 10.20 Tricuspid Valve TR Pk Job: 1.59 TR Pk Grad: 10.00 RA Press: 3.00 RVSP: 13.00 Great Vessels Aorta Sinus of Valsalva: 3.50 2.0-3.5 cm Ao Asc: 3.40 2.1-3.4 cm Pulmonary Valve PV Pk Job: 0.84 Peak PV Grad: 3.00 Updated in Other Vendor System with Status of Final Herbie Lerma MD electronically signed on 06/12/2025 12:25:45 PM with status of Final
[2025-06-12] MEDS: Tiotropium Bromide 2.5 mcg 1 PUFF/2.5 MCG MIST.INHAL 2 PUFF INHALE (07:41)
[2025-06-12 07:44] LABS: Glucose, Whole Blood 101 mg/dL (60-115)
--- NOTE | 2025-06-12 08:15 | P.PNIM_ITS ---
Subjective Subjective Date of Service: 06/12/25 Interval History: advanced renal dis -new hd Review of Systems sob seems improving Denies any chest pain or nausea or vomiting Review of Systems: Yes all other systems are reviewed and are negative Physical Exam 2 Exam: Exam: Appearance: Alert.? Oriented X3.? not in distress.? cvs: rrr, [id number] , no murmur res: Air entry fair, slightly diminished at bases. abd: no rebound or guarding ,nt, bs present. ext pulses present , no cyanosis ,right femoral catheter area has mild oozing but has improving with dressing and compression neuro: axo3 , nonfocal. Vital Signs: Vital Signs: Last Vital Signs Temp 98.5 F 06/12/25 07:44 Pulse 100 06/12/25 07:44 Resp 16 06/12/25 07:44 BP 167/83 H 06/12/25 07:44 Pulse Ox 94 06/12/25 07:44 O2 Del Method Nasal Cannula 06/12/25 07:44 O2 Flow Rate 2 06/12/25 07:44 Oxygen Flow Rate 4 06/11/25 08:39 BMI result Body Mass Index 22.1 Objective Data Active Medications Acetaminophen (Acetaminophen 325 Mg Tablet) 650 mg PO Q6H PRN PRN Reason: Pain, Mild 1-3,fever,headache Last Admin: 06/10/25 20:37 Dose: 650 mg Documented By: ALLEN Albuterol Sulfate (Albuterol Sulfate (0.083%) 2.5 Mg/3 Ml Vial.Neb) 2.5 mg INHALE Q4H PRN PRN Reason: Shortness of Breath/Wheezing Last Admin: 06/11/25 09:11 Dose: 2.5 mg Documented By: ELLIS Amlodipine Besylate (Amlodipine Besylate 5 Mg Tablet) 5 mg PO DAILY [facility]; Protocol Last Admin: 06/11/25 07:58 Dose: 5 mg Documented By: WILLIAN Atorvastatin Calcium (Atorvastatin Calcium 10 Mg Tablet) 10 mg PO DAILY [facility] Last Admin: 06/11/25 07:56 Dose: 10 mg Documented By: WILLIAN Bacitracin (Bacitracin Oint 14 Gm Tube) 1 appl TOPICAL TID [facility]; Protocol Last Admin: 06/11/25 21:56 Dose: Not Given Documented By: TARIK Non-Admin Reason: Patient Refused Calcium Carbonate (Calcium Carbonate 750 Mg Tab.Chew) 750 mg PO Q4H PRN PRN Reason: Heartburn Dextrose (Dextrose 50 % 25 Gm/50 Ml Syringe) 25 gm IVPUSH Q15M PRN; Protocol PRN Reason: per Hypoglycemia Standing Ord. Finasteride (Finasteride 5 Mg Tablet) 5 mg PO DAILY [facility] Last Admin: 06/11/25 07:56 Dose: 5 mg Documented By: WILLIAN Glucose (Glucose Gel 15 Gm Gel..Gram.) 15 gm PO Q15M PRN; Protocol PRN Reason: per Hypoglycemia Standing Ord. Heparin Sodium (Porcine) (Heparin Sodium,Porcine 5,000 Unit/Ml Vial) 5,000 unit INTRACATH MOWEFR@1645 [facility] Hydralazine HCl (Hydralazine Hcl 50 Mg Tablet) 50 mg PO TID PRN; Protocol PRN Reason: Hypertension Vancomycin HCl 500 mg/ Sodium (Chloride) 110 mls @ 110 mls/hr IV ONCE ONE Stop: 06/08/25 22:14 Piperacillin Sod/Tazobactam (Sod 4.5 gm/ Sodium Chloride) 100 mls @ 200 mls/hr IV Q12H [facility] Last Infusion: 06/12/25 02:40 Dose: Infused Documented By: TARIK Insulin Human Lispro (Insulin Lispro 100 Unit/Ml 3 Ml Vial) 0 unit SUBCUT QIDACHS [facility]; Protocol Last Admin: 06/12/25 07:43 Dose: Not Given Documented By: ISA Non-Admin Reason: No Insulin Coverage Magnesium Hydroxide (Milk Of Magnesia 30 Ml Oral.Susp) 30 ml PO DAILY PRN PRN Reason: Constipation Melatonin (Melatonin 3 Mg Tablet) 6 mg PO BEDTIME PRN PRN Reason: Insomnia Last Admin: 06/09/25 23:40 Dose: 6 mg Documented By: RAGHAV Metoprolol Succinate (Metoprolol Succinate Er 100 Mg Tab.Er.24h) 100 mg PO DAILY [facility]; Protocol Last Admin: 06/11/25 07:56 Dose: 100 mg Documented By: WILLIAN Nitroglycerin (Nitroglycerin 2 % Oint 1 Gm Packet) 1 inch TRANSDERMA BID@0900,1500 [facility] Last Admin: 06/11/25 14:45 Dose: 1 inch Documented By: WILLIAN Pharmacy Consult (Consult Rx Vancomycin Dosing) 1 each MISCELLANE DAILY PRN PRN Reason: Consult order Sodium Chloride (0.9 % Sodium Chloride Flush 3 Ml Syringe) 3 ml IVFLUSH QSHIFT [facility] Last Admin: 06/11/25 21:52 Dose: 3 ml Documented By: TARIK Tamsulosin HCl (Tamsulosin Hcl 0.4 Mg Capsule) 0.4 mg PO DAILY [facility] Last Admin: 06/11/25 07:57 Dose: 0.4 mg Documented By: WILLIAN Tiotropium [place] (Tiotropium [place] 2.5 Mcg 1 Puff/2.5 Mcg Mist.Inhal) 2 puff INHALE RDAILY [facility] Last Admin: 06/12/25 07:41 Dose: 2 puff Documented By: ELLIS Labs 06/11/25 08:41 06/11/25 08:41 Labs: Laboratory Results - last 24 hr 06/09/25 06/11/25 06/11/25 15:01 08:19 08:41 MCV 90.5 MCH 29.2 MCHC 32.2 RDW 16.1 H Plt Count 160 MPV 10.9 Absolute Nucleated RBC 0.000 Nucleated RBC % (auto) 0.0 O2 Saturation ABG pH at Pt Temp ABG pCO2 at Pt Temp ABG pO2 at Pt Temp ABG HCO3 ABG Base Excess (Actual) Anion Gap 17 Estim Creat Clear Calc 12.2 Estimated GFR 9 POC Glucose 112 Random Glucose 120 H Calcium 7.9 L B-Natriuretic Peptide 8461 H Random Vancomycin Hep Bs Antigen Negative Hep Bs Antibody NONREACTIVE Hep B Core Total Ab Nonreactive 06/11/25 06/11/25 06/11/25 08:48 13:52 16:41 MCV MCH MCHC RDW Plt Count MPV Absolute Nucleated RBC Nucleated RBC % (auto) O2 Saturation 100.0 ABG pH at Pt Temp 7.38 ABG pCO2 at Pt Temp 30 L ABG pO2 at Pt Temp 117 H ABG HCO3 18 L ABG Base Excess (Actual) -5.8 Anion Gap Estim Creat Clear Calc Estimated GFR POC Glucose 185 H Random Glucose Calcium B-Natriuretic Peptide Random Vancomycin 16.2 Hep Bs Antigen Hep Bs Antibody Hep B Core Total Ab 06/11/25 06/12/25 21:07 07:40 MCV MCH MCHC RDW Plt Count MPV Absolute Nucleated RBC Nucleated RBC % (auto) O2 Saturation ABG pH at Pt Temp ABG pCO2 at Pt Temp ABG pO2 at Pt Temp ABG HCO3 ABG Base Excess (Actual) Anion Gap Estim Creat Clear Calc Estimated GFR POC Glucose 181 H 101 Random Glucose Calcium B-Natriuretic Peptide Random Vancomycin Hep Bs Antigen Hep Bs Antibody Hep B Core Total Ab Assessment and Plan (1) Acute kidney failure: Status: Acute (2) Acute hyperkalemia: Status: Acute Plan 65-year-old male with history of CKD 5, AFib on Xarelto, hypertension, BPH, chronic respiratory failure, COPD, PVD, WENDY, diabetes, HFrEF who presented to the emergency department with 2 days of shortness of breath found to have worsening renal function with hyperkalemia plan for urgent dialysis Acute on chronic respiratory failure with hypoxia-possible multifactorial ( esrd, chf ,copd). ekg seems similar Patient shortness of breaths somewhat improving hd catheter bleeding improved. Plan: ABG-ph compensated ,not retaining co2 , troponin negative , [id number], chest x-ray-edema changes , echo: 20-25% ,grade 3 diastolic disfunction Patient is already on hemodialysis, going for PermCath today and if successful ,then will remove femoral catheter. seen by cardiology-continue metoprolol /hydralazine ,will ask Nephro input for entersto . nephrology following Hyperkalemia Due to above Patient is due for dialysis today Left diabetic foot wound At site of left great toe amputation Imaging with concern for osteomyelitis Inflammatory markers pending MRI of the left foot -Multifocal osteomyelitis and second MTP joint septic arthritis and second proximal phalanx intraosseous abscess. There is evidence of osteomyelitis involving the distal end of the first metatarsal adjacent to the site of previous amputation. There is ulceration in the dorsal medial soft tissues that extends into the second MTP joint where there is a complex effusion with suspected intraosseous abscess involving the proximal half the proximal phalanx and osteomyelitis involving the distal diaphysis and head of the second metatarsal with erosive changes. The plantar plate is not well-demonstrated and a chronically torn versus destructive changes related to septic arthritis. Blood cultures negative @24hrs Continue vanco/Zosyn id to review antibiotics management. wound care eval vascular follow up -dr mina will follow up. acute on chronic HFpEF hold diuretics on hd HD as above anemia of chronic disease H/H near baseline, above transfusion threshold Paroxysmal atrial fibrillation Hold Xarelto since oozing as well as aspirin BPH Continue baseline meds COPD No acute exacerbation continue baseline inhalers PVD: hold aspirin due to bleeding. dvt ppx - SCD Ongoing need for stay hospital for management of stage 5 renaldis, fluid overload requiring urgent dialysis as well as concern for left foot diabetic ulcer and osteomyelitis requiring IV antibiotics and further advanced imaging Quality Stroke Does the patient have a stroke diagnosis?: No VTE Prior VTE?: No VTE Risk Level:: Medical - moderate - high VTE Device Contraindication: N/A - Device Ordered VTE Drug Contraindication: Treatment Not Indicated
[2025-06-12] MEDS: Metoprolol Succinate ER 100 MG TAB.ER.24H PO (10:00)
[2025-06-12] MEDS: 0.9 % Sodium Chloride Flush 3 ML SYRINGE IVFLUSH ×2 (10:00→15:34)
[2025-06-12] MEDS: Nitroglycerin 2 % Oint 1 GM Packet 1 INCH TRANSDERMA ×2 (10:01→15:33)
--- NOTE | 2025-06-12 10:35 | MHC.CM.PN ---
Per ROUNDS discussion, Patient is not yet medically cleared for dc (staring new HD); home with services is the goal and CM will continue to follow.
[2025-06-12 11:42] LABS: Glucose, Whole Blood 106 mg/dL (60-115)
--- NOTE | 2025-06-12 11:48 | MHC.CM.PN ---
ROSA spoke with Meredith FERRARI/Chrissy @ [phone], Ext. [phone] and per her request, ROSA has faxed over 3 HD run sheets to [phone].
--- NOTE | 2025-06-12 12:08 | P.PNVS_ITS ---
Subjective Subjective Date of Service: 06/12/25 Patient reports: no new complaints and feels better Interval history: Patient seen and examined. Events over the past weekend noted. He does have some bleeding through the right groin via the tunneled catheter but which seems to have improved significantly. He is actually scheduled for tunneled dialysis catheter placement later today. Has had no other interval issues. Now presents for routine follow-up exam. Physical Exam Vital Signs: Vital Signs: Last Vital Signs Temp 98.5 F 06/12/25 11:36 Pulse 81 06/12/25 11:36 Resp 14 06/12/25 11:36 BP 154/74 H 06/12/25 11:36 Pulse Ox 96 06/12/25 11:36 O2 Del Method Nasal Cannula 06/12/25 11:36 O2 Flow Rate 2 06/12/25 11:36 Oxygen Flow Rate 4 06/11/25 08:39 BMI result Body Mass Index 22.1 Const: General: cooperative, healthy appearing and comfortable Orientation/consciousness: oriented to person, oriented to place and oriented to time HEENT: Head: Yes normal to inspection Neck: Neck: Yes normal visual inspection Carotids: no bruits Chest: Chest palpation & inspection: normal inspection of the chest Resp: Effort & Inspection: normal respiratory effort and able to speak in complete sentences Auscultation: clear to auscultation bilaterally, no crackles, no rales, no rhonchi and no wheezes Cardio: Rate: regular rate Rhythm: regular rhythm Heart sounds: S1 normal heart sound present and S2 normal heart sound present Bruits: no carotid bruits Peripheral pulses: Peripheral pulses 2+ throughout GI: Inspection: Yes normal to inspection Skin: Other: Left foot diabetic ulcer Wounds: no wounds Hair: normal Neuro: General: oriented to person, oriented to place and oriented to time Cranial nerves: Yes CN's II-XII intact bilaterally and Yes Normal hearing present Cognition (Neuro): normal cognition Motor exam (neuro): 5/5 motor strength present throughout Extrem: Other: venous exam: No significant superficial varicosities or spider telangiectasias, minimal edema General: No clubbing, No cyanosis and No edema Psych: Appearance: grossly normal Mental Status: mental status grossly normal Speech and movement: Normal speech and movement present Progress Note: A&P Assessment and plan (1) Renal failure: Status: Acute Assessment and Plan: Awaiting tunneled dialysis catheter placement. We can schedule electively as an outpatient for permanent dialysis access. (2) Osteomyelitis: Status: Acute Plan Nonhealing foot ulcer. He had been seeing Dr. Gomez at [facility] regarding this. We will reassess this. No acute intervention required. Thank you for allowing us to assist in his care. Time Spent With Patient Time: Total time managing care of this patient today ____ minutes. Procedures Date of Service Date of Service: 06/12/25 Quality Stroke Does the patient have a stroke diagnosis?: No VTE Prior VTE?: No VTE Risk Level:: Medical - moderate - high VTE Device Contraindication: N/A - Device Ordered VTE Drug Contraindication: Treatment Not Indicated
--- NOTE | 2025-06-12 12:12 | HO.WOUND ---
Wound Consult: Initial 65 yr old male admitted to [facility] [facility] on 06/08/25- See progress notes and H&P for detailed history. Wound consult placed for left foot. Patient agreeable to assessment and photo documentation. Patient with history of left foot diabetic wound, left great toe amputation, wounding at amputation site. MRI completed - see report- concern for osteo, ID consult pending, vascular/surgery follow up pending. TT to Dr. Amaral for consideration of general surgery/vascular follow up for potential debridement. Etiology: Left great toe amputation site - two wounds - diabetic foot ulcer Measurements: 1cm x 1cm x 1.7cm Wound Bed: medial - moist red and yellow base, amp site with depth, moist yellow/white base. Drainage / Odor: small/moderate creamy purulent drainage, mild odor Edges: ? rolled Liss wound: ? No Induration, Fluctuance or Warmth noted Pain: none Goals of Treatment: ?moist healing, systemic treatment for osteo Etiology: left lateral foot diabetic foot ulcer Measurements: 2.5cm x 1cm x 0.1cm Wound Bed: dry black eschar, soft Drainage / Odor: scant purulent drainage expressed Edges: ? rolled Liss wound: ? No Induration, Fluctuance or Warmth noted Pain: none Goals of Treatment: ? offloading, drainage absorption Recommendations: 1. Turn and Reposition every 2 hours and as needed for patient comfort. Use pillows or wedges to support off loading positions. 2. Off Load all bony prominences with use of pillows and heel boots if needed. Apply Preventative foams where needed. 3. Monitor for incontinence and moisture control, use barrier creams when needed for prevention and treatment. 4. Provide adequate and supplemental nutrition. 5. Order or Continue low air loss mattress. 6. When applicable maintain blood glucose levels per Providers order. Left great toe amputation site, left lateral foot: cleanse with normal saline, pat dry, gently pack with durafiber ag, cover with ABD pad, wrap with rolled gauze, change every other day and PRN Re-consult wound care Nurse for wound deterioration or wound changes.
--- NOTE | 2025-06-12 13:18 | P.PNNP_ITS ---
Subjective Subjective Date of Service: 06/12/25 Interval history: Here with shortness of breath/fluid overload. Following for renal failure requiring dialysis. patient developed significant dyspnea 2/2 pulmonary edema over the weekend- per HD RN, right groin HD catheter function poor and unable to pull adequate fluid. Patient therefore received extra ultrafiltration session on Thursday. Patient states today his breathing is feeling much better. He continues to make urine. He denies additional complaints/concerns. Physical Exam 2 Vital Signs: Vital Signs: Last Vital Signs Temp 98.5 F 06/12/25 11:36 Pulse 81 06/12/25 11:36 Resp 14 06/12/25 11:36 BP 154/74 H 06/12/25 11:36 Pulse Ox 96 06/12/25 11:36 O2 Del Method Nasal Cannula 06/12/25 11:36 O2 Flow Rate 2 06/12/25 11:36 Oxygen Flow Rate 4 06/11/25 08:39 BMI result Body Mass Index 22.1 Const: General: no acute distress and alert Resp: Effort & Inspection: normal respiratory effort Auscultation: crackles Cardio: Rate: regular rate Rhythm: regular rhythm Heart sounds: S1 normal heart sound present and S2 normal heart sound present GI: Palpation (GI): Soft to palpation and nontender Skin: Rashes: no rashes Neuro: Other: no tremor. Extrem: General: No edema ( ) Objective Data Labs 06/11/25 08:41 06/11/25 08:41 Labs: Laboratory Results - last 24 hr 06/09/25 06/11/25 06/11/25 15:01 13:52 16:41 POC Glucose 185 H Random Vancomycin 16.2 Hep Bs Antigen Negative Hep Bs Antibody NONREACTIVE Hep B Core Total Ab Nonreactive 06/11/25 06/12/25 06/12/25 21:07 07:40 11:38 POC Glucose 181 H 101 106 Random Vancomycin Hep Bs Antigen Hep Bs Antibody Hep B Core Total Ab Microbiology Microbiology Results: Microbiology 06/08/25 12:45 Blood - Venous Blood Culture - Preliminary No growth after 48 hours. 06/08/25 12:25 Blood - Venous Blood Culture - Preliminary No growth after 48 hours. Procedures Date of Service Date of Service: 06/12/25 Assessment & Plan Assessment and plan (1) Renal failure: Status: Acute Plan Renal failure requiring dialysis- Will need continued HD and ultrafiltration every other day until volume status improves IR will place permcath today- needs DDAVP prior to dialysis. patient has temporary HD catheter in right groin, some bleeding- ddavp ordered per hospital medicine this a.m. recommend 1 unit pRBCs given bleeding- H&H 7.6 & 23.5. Per IR, needs to wait three days for tunneled line placement due to antiplatelet therapy prior to admission. Order has been placed. Ok to dialyze and change gauze as needed for oozing from catheter site. Patient remains hypervolemic, will remove 1-2L fluid as blood pressure tolerates. low K, low phos, low sodium diet. limit fluid intake to 1.5L/24 hours blood pressures acceptable at this time continue supportive care Discussed with Dr Ruiz Time Spent With Patient Time: Total time managing care of this patient today ____ minutes. Progress Note: Quality Stroke Does the patient have a stroke diagnosis?: No
[2025-06-12 16:23] LABS: Hematocrit 23.3 % (42.0-52.0); Hemoglobin 7.4 g/dl (14.0-18.0)
[2025-06-12 16:26] LABS: Glucose, Whole Blood 116 mg/dL (60-115)
--- NOTE | 2025-06-12 16:38 | W.PM.IDCN ---
History of Present Illness Data of Consult Service Date: 06/12/25 Requesting physician: Anna Amaral Primary Care Provider: Michelle Long MD HPI Reason for consult: left foot chronic OM He has left foot erythema/pain. He had MRSA 02/22 bacteremia and 1st MTP osteomyelitis and six weeks. Daptomycin done in April. He has OM residua same area foot 2nd MTP. Review of Systems Review of Systems: Yes all other systems are reviewed and are negative PMFSH Past Medical History Medical History Chronic kidney disease (CKD), stage 5 Metabolic acidosis CKD (chronic kidney disease) stage 5, GFR less than 15 ml/min Anemia in chronic kidney disease (CKD) Hypertension CKD (chronic kidney disease) stage 4, GFR 15-29 ml/min Fluid overload Acute and chronic respiratory failure Sepsis Acute dehydration New onset of congestive heart failure Pneumonia Urinary urgency Urinary tract infection Urinary hesitancy Tubular adenoma of colon Smoker Seborrheic keratoses SND (sensorineural deafness) Right BKA infection Peripheral vascular disease WENDY (obstructive sleep apnea) Microalbuminuria Lung nodule seen on imaging study Lightheadedness Latent tuberculosis LVH (left ventricular hypertrophy) Abnormal PFTs Hyponatremia Hypertensive retinopathy of both eyes Hyperkalemia Hepatitis C Hearing loss of both ears Erectile dysfunction Cataract CKD (chronic kidney disease) Bladder wall thickening BPH (benign prostatic hyperplasia) Anticoagulated Anemia Peripheral neuropathy Diabetes mellitus, type II CVA (cerebral vascular accident) Adrenal nodule Kidney cysts Family History Family History Brother Diabetes Mother Diabetes Father Diabetes Surgical History Surgical History Hx of right BKA Social History Social History Household Members: Spouse Household Members Other:: ex- Housing: Apartment Do you presently have visiting nurse or other home services: Yes Alcohol intake: never Patient Tobacco Use Status: Former Tobacco user Tobacco use type: Cigarette Smoked in Last 30 Days: No e-Cigarette/Vaping Use: Former Use Use of substances other than those prescribed or required for medical reasons: No Currently Displaying Signs/Symptoms of Drug Intoxication Withdrawal: No Advance Directives: No Advance Directives Information Provided: Yes Do you have a plan to hurt others: No Plan Recently lost weight without trying: Yes How much weight loss: 2-13 pounds Eating poorly because of decreased appetite: Yes Nutrition screen score: 4 service: No Meds Allergies Allergy/AdvReac Type Severity Reaction Status Date / Time morphine Allergy Hallucinati Verified 06/08/25 10:07 ons bupropion AdvReac Hallucinati Verified 06/08/25 10:07 ons Active Medications: Current Medications Acetaminophen (Acetaminophen 325 Mg Tablet) 650 mg PO Q6H PRN PRN Reason: Pain, Mild 1-3,fever,headache Last Admin: 06/10/25 20:37 Dose: 650 mg Albuterol Sulfate (Albuterol Sulfate (0.083%) 2.5 Mg/3 Ml Vial.Neb) 2.5 mg INHALE Q4H PRN PRN Reason: Shortness of Breath/Wheezing Last Admin: 06/11/25 09:11 Dose: 2.5 mg Amlodipine Besylate (Amlodipine Besylate 5 Mg Tablet) 5 mg PO DAILY [facility]; Protocol Last Admin: 06/12/25 10:00 Dose: 5 mg Atorvastatin Calcium (Atorvastatin Calcium 10 Mg Tablet) 10 mg PO DAILY [facility] Last Admin: 06/12/25 10:00 Dose: 10 mg Bacitracin (Bacitracin Oint 14 Gm Tube) 1 appl TOPICAL TID ELIZA; Protocol Last Admin: 06/12/25 15:33 Dose: 1 appl Calcium Carbonate (Calcium Carbonate 750 Mg Tab.Chew) 750 mg PO Q4H PRN PRN Reason: Heartburn Dextrose (Dextrose 50 % 25 Gm/50 Ml Syringe) 25 gm IVPUSH Q15M PRN; Protocol PRN Reason: per Hypoglycemia Standing Ord. Finasteride (Finasteride 5 Mg Tablet) 5 mg PO DAILY [facility] Last Admin: 06/12/25 09:59 Dose: 5 mg Furosemide (Furosemide 40 Mg Tablet) 80 mg PO BID@0900,1800 [facility]; Protocol Last Admin: 06/12/25 11:56 Dose: 80 mg Glucose (Glucose Gel 15 Gm Gel..Gram.) 15 gm PO Q15M PRN; Protocol PRN Reason: per Hypoglycemia Standing Ord. Heparin Sodium (Porcine) (Heparin Sodium,Porcine 5,000 Unit/Ml Vial) 5,000 unit INTRACATH MOWEFR@1645 [facility] Hydralazine HCl (Hydralazine Hcl 50 Mg Tablet) 50 mg PO TID PRN; Protocol PRN Reason: Hypertension Vancomycin HCl 500 mg/ Sodium (Chloride) 110 mls @ 110 mls/hr IV ONCE ONE Stop: 06/08/25 22:14 Piperacillin Sod/Tazobactam (Sod 4.5 gm/ Sodium Chloride) 100 mls @ 200 mls/hr IV Q12H [facility] Last Infusion: 06/12/25 16:33 Dose: Infused Insulin Human Lispro (Insulin Lispro 100 Unit/Ml 3 Ml Vial) 0 unit SUBCUT QIDACHS [facility]; Protocol Last Admin: 06/12/25 16:22 Dose: Not Given Magnesium Hydroxide (Milk Of Magnesia 30 Ml Oral.Susp) 30 ml PO DAILY PRN PRN Reason: Constipation Melatonin (Melatonin 3 Mg Tablet) 6 mg PO BEDTIME PRN PRN Reason: Insomnia Last Admin: 06/09/25 23:40 Dose: 6 mg Metoprolol Succinate (Metoprolol Succinate Er 100 Mg Tab.Er.24h) 100 mg PO DAILY [facility]; Protocol Last Admin: 06/12/25 10:00 Dose: 100 mg Nitroglycerin (Nitroglycerin 2 % Oint 1 Gm Packet) 1 inch TRANSDERMA BID@0900,1500 [facility] Last Admin: 06/12/25 15:33 Dose: 1 inch Pharmacy Consult (Consult Rx Vancomycin Dosing) 1 each MISCELLANE DAILY PRN PRN Reason: Consult order Sodium Chloride (0.9 % Sodium Chloride Flush 3 Ml Syringe) 3 ml IVFLUSH QSHIFT [facility] Last Admin: 06/12/25 15:34 Dose: 3 ml Tamsulosin HCl (Tamsulosin Hcl 0.4 Mg Capsule) 0.4 mg PO DAILY [facility] Last Admin: 06/12/25 10:00 Dose: 0.4 mg Tiotropium Gilbert (Tiotropium Gilbert 2.5 Mcg 1 Puff/2.5 Mcg Mist.Inhal) 2 puff INHALE RDAILY [facility] Last Admin: 06/12/25 07:41 Dose: 2 puff Home Medications ?Medication ?Instructions ?Recorded ?Confirmed ?Last Taken ?Type aspirin 81 mg chewable tablet 1 tab PO DAILY 12/19/24 06/08/25 06/08/25 History dapagliflozin propanediol 10 mg 10 mg PO DAILY 12/19/24 06/08/25 06/08/25 History tablet (Farxiga) finasteride 5 mg tablet 5 mg PO DAILY 12/19/24 06/08/25 06/08/25 History metoprolol succinate 100 mg 100 mg PO DAILY 12/19/24 06/08/25 06/08/25 History tablet,extended release 24 hr tamsulosin 0.4 mg capsule 0.4 mg PO DAILY 12/19/24 06/08/25 06/08/25 History umeclidinium 62.5 mcg/actuation 1 inh inhalation DAILY 12/19/24 06/08/25 06/08/25 History blister powder for inhalation (Incruse Ellipta) hydralazine 25 mg tablet 50 mg PO TID PRN Hypertension 12/30/24 06/08/25 02/19/25 09:00 History rivaroxaban 2.5 mg tablet (Xarelto) 2.5 mg PO BID 12/30/24 06/08/25 06/08/25 History atorvastatin 10 mg tablet 10 mg PO DAILY 05/26/25 06/08/25 06/08/25 History insulin lispro 100 unit/mL See Protocol subcut QIDACHS PRN 05/26/25 06/08/25 06/08/25 History subcutaneous pen (Humalog KwikPen Hypoglycemia (U-100) Insulin) Physical Exam Vital Signs: Vital Signs: Last Vital Signs Temp 98.4 F 06/12/25 15:09 Pulse 75 06/12/25 15:09 Resp 16 06/12/25 15:09 BP 163/71 H 06/12/25 15:09 Pulse Ox 96 06/12/25 15:09 O2 Del Method Nasal Cannula 06/12/25 15:09 O2 Flow Rate 2 06/12/25 15:09 Oxygen Flow Rate 4 06/11/25 08:39 BMI result Body Mass Index 22.1 Const: General: cooperative HEENT: Head: Yes normal to inspection Face and sinus: Yes normal facial exam Mouth: Normal oral and palatal mucosa present Teeth and gingiva: dentition normal Eyes: General: appearance normal, both eyes and all related structures Pupils: Equal, round and reactive pupils present Resp: Effort & Inspection: normal respiratory effort Cardio: Rate: regular rate Rhythm: regular rhythm GI: Palpation (GI): Soft to palpation and nontender : General: Yes no CVA tenderness Back/Spine/Pelvis: Back: no CVA tenderness Skin: General skin exam: no rashes or lesions noted Neuro: General: moves all extremities Cranial nerves: Yes Equal, round and reactive pupils present Extrem: Other: 2nd MTP foot redness General: Yes normal to inspection Psych: Appearance: grossly normal Results Labs 06/12/25 16:04 06/11/25 08:41 Labs: Short CBC 06/12/25 Range/Units 16:04 Hgb 7.4 L (14.0-18.0) g/dl Hct 23.3 L (42.0-52.0) % Microbiology Microbiology Results: Microbiology 06/08/25 12:45 Blood - Venous Blood Culture - Preliminary No growth after 48 hours. 06/08/25 12:25 Blood - Venous Blood Culture - Preliminary No growth after 48 hours. Assessment and Plan (1) Osteomyelitis: Qualifiers: Laterality: left Osteomyelitis location: foot Osteomyelitis type: unspecified type Qualified Code(s): M86.9 - Osteomyelitis, unspecified Status: Acute Plan Chronic extension of prior area of OM despite suppressive Daptomycin for six weeks. Po linezolid for 2-3 weeks TMA would remove affected tissue and be best likely
[2025-06-12 21:51] LABS: Glucose, Whole Blood 172 mg/dL (60-115)
[2025-06-13] VITALS (7 sets, daily range): BP systolic 130–166; BP diastolic 34–78; PULSE 70–86; RESP 16–18; TEMP 37–37.2; O2SAT 95–100
[2025-06-13 07:03] LABS: Glucose, Whole Blood 101 mg/dL (60-115)
[2025-06-13 07:08] LABS: Iron 28 mcg/dL (45-160); Percent Iron Saturation 17 % (15-50); Total Iron Binding Capacity 163 mcg/dL (228-428); Unsaturated Iron Binding 135 ug/dL
[2025-06-13] MEDS: Tiotropium Bromide 2.5 mcg 1 PUFF/2.5 MCG MIST.INHAL 2 PUFF INHALE (07:55)
[2025-06-13] MEDS: Nitroglycerin 2 % Oint 1 GM Packet 1 INCH TRANSDERMA (08:30)
[2025-06-13] MEDS: Metoprolol Succinate ER 100 MG TAB.ER.24H PO (08:30)
[2025-06-13] MEDS: 0.9 % Sodium Chloride Flush 3 ML SYRINGE IVFLUSH ×3 (08:31→21:49)
[2025-06-13 08:35] LABS: Anion Gap 16 (12-20); Blood Urea Nitrogen 36 mg/dL (9-16); Calcium 7.8 mg/dL (8.4-10.2); Carbon Dioxide 23 mmol/L (22-29); Chloride 105 mmol/L (96-108); Creatinine Clr Calc Pharmacy 18.3; Estimated Glomerular Filt Rate 15; Potassium 4.2 mmol/L (3.3-5.1); Sodium 140 mmol/L (135-145)
[2025-06-13 11:00] LABS: Glucose, Whole Blood 111 mg/dL (60-115)
--- NOTE | 2025-06-13 11:25 | P.PNNP_ITS ---
Subjective Subjective Date of Service: 06/13/25 Interval history: Following for ESRD recently started on dialysis. Will get UF session today due to fluid overload this weekend from poor access. Now has permcath. Patient denies new complaints/concerns today. States breathing is feeling improved. Physical Exam 2 Vital Signs: Vital Signs: Last Vital Signs Temp 98.8 F 06/13/25 15:40 Pulse 78 06/13/25 15:40 Resp 18 06/13/25 15:40 BP 130/34 L 06/13/25 15:40 Pulse Ox 99 06/13/25 15:40 O2 Del Method Nasal Cannula 06/13/25 15:40 O2 Flow Rate 1 06/13/25 15:40 Oxygen Flow Rate 4 06/11/25 08:39 BMI result Body Mass Index 22.1 Const: General: no acute distress and alert Resp: Effort & Inspection: normal respiratory effort Auscultation: crackles Cardio: Rate: regular rate Rhythm: regular rhythm Heart sounds: S1 normal heart sound present and S2 normal heart sound present GI: Palpation (GI): Soft to palpation and nontender Skin: Rashes: no rashes Neuro: Other: no tremor. Extrem: General: No edema ( ) Objective Data Labs 06/12/25 16:04 06/13/25 08:01 Labs: Laboratory Results - last 24 hr 06/12/25 06/12/25 06/12/25 16:04 16:11 21:47 Hgb 7.4 L Hct 23.3 L Sodium Potassium Chloride Carbon Dioxide Anion Gap BUN Creatinine Estim Creat Clear Calc Estimated GFR POC Glucose 116 H 172 H Random Glucose Calcium Phosphorus Iron TIBC % Saturation Unsat Iron Binding Random Vancomycin 14.9 L 06/13/25 06/13/25 06/13/25 06:31 06:52 08:01 Hgb Hct Sodium 140 Potassium 4.2 Chloride 105 Carbon Dioxide 23 Anion Gap 16 BUN 36 H Creatinine 4.13 H* Estim Creat Clear Calc 18.3 Estimated GFR 15 POC Glucose 101 Random Glucose 101 Calcium 7.8 L Phosphorus 4.3 4.4 Iron 28 L TIBC 163 L % Saturation 17 Unsat Iron Binding 135 Random Vancomycin 06/13/25 10:48 Hgb Hct Sodium Potassium Chloride Carbon Dioxide Anion Gap BUN Creatinine Estim Creat Clear Calc Estimated GFR POC Glucose 111 Random Glucose Calcium Phosphorus Iron TIBC % Saturation Unsat Iron Binding Random Vancomycin Microbiology Microbiology Results: Microbiology 06/08/25 12:45 Blood - Venous Blood Culture - Final No growth after 5 days. 06/08/25 12:25 Blood - Venous Blood Culture - Final No growth after 5 days. Procedures Date of Service Date of Service: 06/13/25 Assessment & Plan Assessment and plan (1) Renal failure: Status: Acute Plan Renal failure requiring dialysis- new permcath in place Will need continued HD MWF, UF today due to hypervolemia. H&H trending down- recommend re-starting anticoagulation for afib, then will give procrit electrolytes within normal limits; calcium low at 7.8, will continue to monitor. Phos normal at 4.4 no metabolic acidosis at this time low K, low phos, low sodium diet. limit fluid intake to 1.5L/24 hours blood pressures acceptable at this time continue supportive care Discussed with Dr Kuhn Time Spent With Patient Time: Total time managing care of this patient today ____ minutes. Progress Note: Quality Stroke Does the patient have a stroke diagnosis?: No
--- NOTE | 2025-06-13 14:39 | HO.PM.IMPN ---
Subjective Subjective Date of Service: 06/13/25 Interval History: advanced renal dis -new hd Review of Systems sob seems improving Denies any chest pain or nausea or vomiting Physical Exam Exam: Exam: Appearance: Alert.? Oriented X3.? not in distress.? cvs: rrr, [id number] . res: Air entry fair, slightly diminished at bases. abd: no rebound or guarding ,nt, bs present. ext pulses present , no cyanosis ,right femoral catheter area has mild oozing but has improving with dressing and compression neuro: axo3 , nonfocal. Vital Signs: Vital Signs: Last Vital Signs Temp 98.8 F 06/13/25 11:05 Pulse 75 06/13/25 11:05 Resp 18 06/13/25 11:05 BP 166/74 H 06/13/25 11:05 Pulse Ox 97 06/13/25 11:05 O2 Del Method Nasal Cannula 06/13/25 11:05 O2 Flow Rate 1 06/13/25 11:05 Oxygen Flow Rate 4 06/11/25 08:39 BMI result Body Mass Index 22.1 Objective Data Active Medications Acetaminophen (Acetaminophen 325 Mg Tablet) 650 mg PO Q6H PRN PRN Reason: Pain, Mild 1-3,fever,headache Last Admin: 06/10/25 20:37 Dose: 650 mg Documented By: ALLEN Albuterol Sulfate (Albuterol Sulfate (0.083%) 2.5 Mg/3 Ml Vial.Neb) 2.5 mg INHALE Q4H PRN PRN Reason: Shortness of Breath/Wheezing Last Admin: 06/11/25 09:11 Dose: 2.5 mg Documented By: ELLIS Amlodipine Besylate (Amlodipine Besylate 5 Mg Tablet) 5 mg PO DAILY [facility]; Protocol On Hold: 06/13/25 07:54 Last Admin: 06/12/25 10:00 Dose: 5 mg Documented By: ISA Atorvastatin Calcium (Atorvastatin Calcium 10 Mg Tablet) 10 mg PO DAILY [facility] Last Admin: 06/13/25 08:30 Dose: 10 mg Documented By: ISA Bacitracin (Bacitracin Oint 14 Gm Tube) 1 appl TOPICAL TID [facility]; Protocol Last Admin: 06/13/25 08:31 Dose: Not Given Documented By: ISA Non-Admin Reason: hold per provider Calcium Carbonate (Calcium Carbonate 750 Mg Tab.Chew) 750 mg PO Q4H PRN PRN Reason: Heartburn Dextrose (Dextrose 50 % 25 Gm/50 Ml Syringe) 25 gm IVPUSH Q15M PRN; Protocol PRN Reason: per Hypoglycemia Standing Ord. Finasteride (Finasteride 5 Mg Tablet) 5 mg PO DAILY [facility] Last Admin: 06/13/25 08:30 Dose: 5 mg Documented By: ISA Furosemide (Furosemide 40 Mg Tablet) 80 mg PO BID@0900,1800 [facility]; Protocol Last Admin: 06/13/25 08:30 Dose: 80 mg Documented By: ISA Glucose (Glucose Gel 15 Gm Gel..Gram.) 15 gm PO Q15M PRN; Protocol PRN Reason: per Hypoglycemia Standing Ord. Heparin Sodium (Porcine) (Heparin Sodium,Porcine 5,000 Unit/Ml Vial) 5,000 unit INTRACATH MOWEFR@1645 [facility] Last Admin: 06/13/25 07:22 Dose: Not Given Documented By: ISA Non-Admin Reason: given in dialysis? Hydralazine HCl (Hydralazine Hcl 50 Mg Tablet) 50 mg PO TID PRN; Protocol PRN Reason: Hypertension Last Admin: 06/13/25 04:01 Dose: 50 mg Documented By: LILIAN Vancomycin HCl 500 mg/ Sodium (Chloride) 110 mls @ 110 mls/hr IV ONCE ONE Stop: 06/08/25 22:14 Piperacillin Sod/Tazobactam (Sod 4.5 gm/ Sodium Chloride) 100 mls @ 200 mls/hr IV Q12H [facility] Last Infusion: 06/13/25 14:06 Dose: Infused Documented By: ISA Insulin Human Lispro (Insulin Lispro 100 Unit/Ml 3 Ml Vial) 0 unit SUBCUT QIDACHS [facility]; Protocol Last Admin: 06/13/25 11:10 Dose: Not Given Documented By: ISA Non-Admin Reason: No Insulin Coverage Magnesium Hydroxide (Milk Of Magnesia 30 Ml Oral.Susp) 30 ml PO DAILY PRN PRN Reason: Constipation Melatonin (Melatonin 3 Mg Tablet) 6 mg PO BEDTIME PRN PRN Reason: Insomnia Last Admin: 06/09/25 23:40 Dose: 6 mg Documented By: RAGHAV Metoprolol Succinate (Metoprolol Succinate Er 100 Mg Tab.Er.24h) 100 mg PO DAILY [facility]; Protocol Last Admin: 06/13/25 08:30 Dose: 100 mg Documented By: ISA Nitroglycerin (Nitroglycerin 2 % Oint 1 Gm Packet) 1 inch TRANSDERMA BID@0900,1500 [facility] Last Admin: 06/13/25 08:30 Dose: 1 inch Documented By: ISA Pharmacy Consult (Consult Rx Vancomycin Dosing) 1 each MISCELLANE DAILY PRN PRN Reason: Consult order Sodium Chloride (0.9 % Sodium Chloride Flush 3 Ml Syringe) 3 ml IVFLUSH QSHIFT [facility] Last Admin: 06/13/25 13:33 Dose: 3 ml Documented By: ISA Tamsulosin HCl (Tamsulosin Hcl 0.4 Mg Capsule) 0.4 mg PO DAILY [facility] Last Admin: 06/13/25 08:30 Dose: 0.4 mg Documented By: ISA Tiotropium [place] (Tiotropium [place] 2.5 Mcg 1 Puff/2.5 Mcg Mist.Inhal) 2 puff INHALE RDAILY [facility] Last Admin: 06/13/25 07:55 Dose: 2 puff Documented By: LONNIE Labs 06/12/25 16:04 06/13/25 08:01 Labs: Laboratory Results - last 24 hr 06/12/25 06/12/25 06/12/25 16:04 16:11 21:47 Anion Gap Estim Creat Clear Calc Estimated GFR POC Glucose 116 H 172 H Random Glucose Calcium Phosphorus Iron TIBC % Saturation Unsat Iron Binding Random Vancomycin 14.9 L 06/13/25 06/13/25 06/13/25 06:31 06:52 08:01 Anion Gap 16 Estim Creat Clear Calc 18.3 Estimated GFR 15 POC Glucose 101 Random Glucose 101 Calcium 7.8 L Phosphorus 4.3 4.4 Iron 28 L TIBC 163 L % Saturation 17 Unsat Iron Binding 135 Random Vancomycin 06/13/25 10:48 Anion Gap Estim Creat Clear Calc Estimated GFR POC Glucose 111 Random Glucose Calcium Phosphorus Iron TIBC % Saturation Unsat Iron Binding Random Vancomycin Microbiology Microbiology Results: Microbiology 06/08/25 12:25 Blood Culture - Final Blood - Venous No growth after 5 days. Assessment and Plan (1) Acute kidney failure: Status: Acute (2) Acute hyperkalemia: Status: Acute Plan 65-year-old male with history of CKD 5, AFib on Xarelto, hypertension, BPH, chronic respiratory failure, COPD, PVD, WENDY, diabetes, HFrEF who presented to the emergency department with 2 days of shortness of breath found to have worsening renal function with hyperkalemia plan for urgent dialysis Acute on chronic respiratory failure with hypoxia-possible multifactorial ( esrd, chf ,copd). ekg seems similar Patient shortness of breaths somewhat improving hd catheter bleeding improved. Plan: ABG-ph compensated ,not retaining co2 , troponin negative , [id number], chest x-ray-edema changes , echo: 20-25% ,grade 3 diastolic disfunction Patient is already on hemodialysis, going for PermCath today and if successful ,then will remove femoral catheter. seen by cardiology-continue metoprolol /hydralazine ,will ask Nephro input for entersto . nephrology following Hyperkalemia Due to above Patient is due for dialysis today Left diabetic foot wound At site of left great toe amputation Imaging with concern for osteomyelitis Inflammatory markers pending MRI of the left foot -Multifocal osteomyelitis and second MTP joint septic arthritis and second proximal phalanx intraosseous abscess. There is evidence of osteomyelitis involving the distal end of the first metatarsal adjacent to the site of previous amputation. There is ulceration in the dorsal medial soft tissues that extends into the second MTP joint where there is a complex effusion with suspected intraosseous abscess involving the proximal half the proximal phalanx and osteomyelitis involving the distal diaphysis and head of the second metatarsal with erosive changes. The plantar plate is not well-demonstrated and a chronically torn versus destructive changes related to septic arthritis. Blood cultures negative d/w Id:off vanco/Zosyn ''Chronic extension of prior area of OM despite suppressive Daptomycin for six weeks. Po linezolid for 2-3 weeks TMA would remove affected tissue and be best likely'' wound care eval vascular follow up -dr mina will follow up(please see Id rec above). acute on chronic HFpEF hold diuretics on hd HD as above anemia of chronic disease H/H near baseline, above transfusion threshold ( h/h trending slowly down but still around 7.4 /23.3) no new bleeding Paroxysmal atrial fibrillation Hold Xarelto since oozing as well as aspirin BPH Continue baseline meds COPD No acute exacerbation continue baseline inhalers PVD: hold aspirin due to bleeding. dvt ppx - SCD Ongoing need for stay hospital for management of stage 5 renaldis, fluid overload requiring urgent dialysis as well as concern for left foot diabetic ulcer and osteomyelitis requiring IV antibiotics and further advanced imaging Quality Stroke Does the patient have a stroke diagnosis?: No VTE Prior VTE?: No VTE Risk Level:: Medical - moderate - high VTE Device Contraindication: N/A - Device Ordered VTE Drug Contraindication: Treatment Not Indicated
[2025-06-13 16:11] LABS: Glucose, Whole Blood 105 mg/dL (60-115)
[2025-06-13 20:13] LABS: Glucose, Whole Blood 169 mg/dL (60-115)
[2025-06-14] VITALS (9 sets, daily range): BP systolic 97–160; BP diastolic 50–88; PULSE 74–97; RESP 16–20; TEMP 36.6–37.2; O2SAT 96–99
--- NOTE | 2025-06-14 04:36 | PC.NURSE ---
Pt had IV Zocin was due at 2 AM. When RN tried to give it, IV line was clogged due to bleed at IV insertion site. 2 experienced nurses tried to insert IV line for the patient, but none of the attempts were successful. Dr Hernandez was notified. IV Zocin was not given due to lack of IV access.
[2025-06-14 07:10] LABS: Glucose, Whole Blood 109 mg/dL (60-115)
[2025-06-14] MEDS: Tiotropium Bromide 2.5 mcg 1 PUFF/2.5 MCG MIST.INHAL 2 PUFF INHALE (07:57)
[2025-06-14 08:36] LABS: Hematocrit 25.6 % (42.0-52.0); Hemoglobin 8.5 g/dl (14.0-18.0); Mean Corpuscular HGB Conc 33.2 g/dl (31.0-36.0); Mean Corpuscular Hemoglobin 29.5 pg (27.0-33.0); Mean Corpuscular Volume 88.9 fL (80.0-98.0); NRBC Abs Auto 0.000 X10*3/uL (0.0-0.012); NRBC Pct Auto 0.0 /100WBC (0.0-0.2); Platelet Count 149 X10*3/uL (160-400); Red Blood Count 2.88 X10*6/uL (4.60-5.80); White Blood Count 10.0 X10*3/uL (4.8-10.8)
[2025-06-14 08:51] LABS: Anion Gap 16 (12-20); Blood Urea Nitrogen 46 mg/dL (9-16); Calcium 7.9 mg/dL (8.4-10.2); Carbon Dioxide 22 mmol/L (22-29); Chloride 105 mmol/L (96-108); Creatinine Clr Calc Pharmacy 14.3; Estimated Glomerular Filt Rate 11; Potassium 4.1 mmol/L (3.3-5.1); Sodium 139 mmol/L (135-145)
--- NOTE | 2025-06-14 10:50 | P.PNNPD_ITS ---
Subjective Subjective Date of Service: 06/14/25 This patient was seen during dialysis. Interval history: Seen on dialysis this a.m. Pt denies shortness of breath, denies new concerns/complaints. Physical Exam Vital Signs: Vital Signs: Last Vital Signs Temp 98.9 F 06/14/25 11:06 Pulse 97 06/14/25 12:00 Resp 20 06/14/25 11:06 BP 150/78 H 06/14/25 12:00 Pulse Ox 97 06/14/25 11:06 O2 Del Method Nasal Cannula 06/14/25 11:06 O2 Flow Rate 1 06/14/25 11:06 Oxygen Flow Rate 4 06/11/25 08:39 BMI result Body Mass Index 22.1 Const: General: no acute distress and alert Resp: Effort & Inspection: normal respiratory effort Auscultation: crackles Cardio: Rate: regular rate Rhythm: regular rhythm Heart sounds: S1 normal heart sound present and S2 normal heart sound present GI: Palpation (GI): Soft to palpation and nontender Skin: Rashes: no rashes Neuro: Other: no tremor. Extrem: General: No edema ( ) Assessment & Plan Assessment and plan (1) ESRD on dialysis: Status: Acute Plan ESRD requiring dialysis new permcath in place Will need continued HD MWF patient appears euvolemic today venofer admininstered today as patient iron deficient electrolytes within normal limits; calcium low at 7.9, will continue to monitor. Phos normal at 4.4 no metabolic acidosis at this time low K, low phos, low sodium diet. limit fluid intake to 1.5L/24 hours blood pressures acceptable at this time continue supportive care patient is ok for discharge from a renal standpoint after dialysis today- he will need to have transportation for first dialysis session on Thursday arranged before he can be discharged to ensure he does not miss any dialysis sessions. He has an outpatient slot at [facility] in [place], [address] [place] [address] (phone # [phone]). Arrival time is 5:50a.m. on 06/16/25. Discussed with Dr Kuhn Time Spent With Patient Time: Total time managing care of this patient today ____ minutes. Procedures Date of Service Date of Service: 06/14/25
[2025-06-14 11:00] LABS: Glucose, Whole Blood 121 mg/dL (60-115)
--- NOTE | 2025-06-14 11:26 | P.PNIM_ITS ---
Subjective Subjective Date of Service: 06/14/25 Interval History: no complaints Physical Exam 2 Vital Signs: Vital Signs: Last Vital Signs Temp 98.9 F 06/14/25 11:06 Pulse 97 06/14/25 11:06 Resp 20 06/14/25 11:06 BP 150/78 H 06/14/25 11:06 Pulse Ox 97 06/14/25 11:06 O2 Del Method Nasal Cannula 06/14/25 11:06 O2 Flow Rate 1 06/14/25 11:06 Oxygen Flow Rate 4 06/11/25 08:39 BMI result Body Mass Index 22.1 Const: General: no acute distress and alert Resp: Effort & Inspection: normal respiratory effort Auscultation: crackles Cardio: Rate: regular rate Rhythm: regular rhythm Heart sounds: S1 normal heart sound present and S2 normal heart sound present GI: Palpation (GI): Soft to palpation and nontender Skin: Rashes: no rashes Neuro: Other: no tremor. Extrem: General: No edema ( ) Objective Data Active Medications Acetaminophen (Acetaminophen 325 Mg Tablet) 650 mg PO Q6H PRN PRN Reason: Pain, Mild 1-3,fever,headache Last Admin: 06/10/25 20:37 Dose: 650 mg Documented By: ALLEN Albuterol Sulfate (Albuterol Sulfate (0.083%) 2.5 Mg/3 Ml Vial.Neb) 2.5 mg INHALE Q4H PRN PRN Reason: Shortness of Breath/Wheezing Last Admin: 06/11/25 09:11 Dose: 2.5 mg Documented By: ELLIS Atorvastatin Calcium (Atorvastatin Calcium 10 Mg Tablet) 10 mg PO DAILY [facility] Last Admin: 06/13/25 08:30 Dose: 10 mg Documented By: ISA Bacitracin (Bacitracin Oint 14 Gm Tube) 1 appl TOPICAL TID [facility]; Protocol Last Admin: 06/13/25 21:18 Dose: Not Given Documented By: YAHIR Non-Admin Reason: hold per provider Calcium Carbonate (Calcium Carbonate 750 Mg Tab.Chew) 750 mg PO Q4H PRN PRN Reason: Heartburn Dextrose (Dextrose 50 % 25 Gm/50 Ml Syringe) 25 gm IVPUSH Q15M PRN; Protocol PRN Reason: per Hypoglycemia Standing Ord. Finasteride (Finasteride 5 Mg Tablet) 5 mg PO DAILY [facility] Last Admin: 06/13/25 08:30 Dose: 5 mg Documented By: ISA Furosemide (Furosemide 40 Mg Tablet) 80 mg PO BID@0900,1800 [facility]; Protocol Last Admin: 06/13/25 17:45 Dose: 80 mg Documented By: ISA Glucose (Glucose Gel 15 Gm Gel..Gram.) 15 gm PO Q15M PRN; Protocol PRN Reason: per Hypoglycemia Standing Ord. Heparin Sodium (Porcine) (Heparin Sodium,Porcine 5,000 Unit/Ml Vial) 5,000 unit INTRACATH MOWEFR@1645 [facility] Last Admin: 06/13/25 07:22 Dose: Not Given Documented By: ISA Non-Admin Reason: given in dialysis? Hydralazine HCl (Hydralazine Hcl 50 Mg Tablet) 50 mg PO TID PRN; Protocol PRN Reason: Hypertension Last Admin: 06/13/25 04:01 Dose: 50 mg Documented By: LILIAN Insulin Human Lispro (Insulin Lispro 100 Unit/Ml 3 Ml Vial) 0 unit SUBCUT QIDAS [facility]; Protocol Last Admin: 06/14/25 11:04 Dose: Not Given Documented By: JUAN ALBERTO Non-Admin Reason: No Insulin Coverage Linezolid (Linezolid 600 Mg Tablet) 600 mg PO Q12H [facility] Lisinopril (Lisinopril 2.5 Mg Tablet) 2.5 mg PO DAILY@1645 [facility]; Protocol Magnesium Hydroxide (Milk Of Magnesia 30 Ml Oral.Susp) 30 ml PO DAILY PRN PRN Reason: Constipation Melatonin (Melatonin 3 Mg Tablet) 6 mg PO BEDTIME PRN PRN Reason: Insomnia Last Admin: 06/09/25 23:40 Dose: 6 mg Documented By: RAGHAV Metoprolol Succinate (Metoprolol Succinate Er 100 Mg Tab.Er.24h) 100 mg PO DAILY [facility]; Protocol Last Admin: 06/13/25 08:30 Dose: 100 mg Documented By: ISA Nitroglycerin (Nitroglycerin 2 % Oint 1 Gm Packet) 1 inch TRANSDERMA BID@0900,1500 [facility] Last Admin: 06/13/25 15:24 Dose: Not Given Documented By: ISA Non-Admin Reason: Off unit: Dialysis Sodium Chloride (0.9 % Sodium Chloride Flush 3 Ml Syringe) 3 ml IVFLUSH QSHIFT [facility] Last Admin: 06/13/25 21:49 Dose: 3 ml Documented By: YAHIR Sodium Chloride (0.9 % Sodium Chloride Flush 10 Ml Syringe) 5 ml IVFLUSH ONCE PRN PRN Reason: Infusion Center Tamsulosin HCl (Tamsulosin Hcl 0.4 Mg Capsule) 0.4 mg PO DAILY [facility] Last Admin: 06/13/25 08:30 Dose: 0.4 mg Documented By: ISA Tiotropium [place] (Tiotropium [place] 2.5 Mcg 1 Puff/2.5 Mcg Mist.Inhal) 2 puff INHALE RDAILY [facility] Last Admin: 06/14/25 07:57 Dose: 2 puff Documented By: OLGE Labs 06/14/25 08:24 06/14/25 08:24 Labs: Laboratory Results - last 24 hr 06/13/25 06/13/25 06/14/25 16:08 20:09 07:00 MCV MCH MCHC RDW Plt Count MPV Absolute Nucleated RBC Nucleated RBC % (auto) Anion Gap Estim Creat Clear Calc Estimated GFR POC Glucose 105 169 H 109 Random Glucose Calcium 06/14/25 06/14/25 08:24 10:49 MCV 88.9 MCH 29.5 MCHC 33.2 RDW 15.8 Plt Count 149 L MPV 11.1 Absolute Nucleated RBC 0.000 Nucleated RBC % (auto) 0.0 Anion Gap 16 Estim Creat Clear Calc 14.3 Estimated GFR 11 POC Glucose 121 H Random Glucose 102 Calcium 7.9 L Microbiology Microbiology Results: Microbiology 06/08/25 12:45 Blood Culture - Final Blood - Venous No growth after 5 days. 06/08/25 12:25 Blood Culture - Final Blood - Venous No growth after 5 days. Assessment and Plan (1) Cardiomyopathy: Status: Acute Plan 65M PMH CKDV, pafib on xarelto, htn, bph, chronic resp failure due to copd, hfref EF 25%, pvd, marilynn presented with sob, marisa, hyperkalemia Acute on chronic respiratory failure multifactorial Acute kidney injury on CKD 5 with fluid overload Acute on chronic systolic CHF Hemodialysis initiated, now on baseline O2 PermCath placed Continue metoprolol, hydralazine Acute hyperkalemia Resolved Left foot diabetic ulcer with chronic osteomyelitis 2-3 weeks of Zyvox per ID Outpatient vascular follow up with Dr. Jason Norris on chronic inflammatory anemia due to chronic kidney disease Paroxysmal AFib Xarelto held for oozing, on discharge will restart with low-dose Eliquis Continue metoprolol DVT prophylaxis-mechanical due to oozing Full code reason for continued hospitalization: Dispo planning Quality Stroke Does the patient have a stroke diagnosis?: No VTE Prior VTE?: No VTE Risk Level:: Medical - moderate - high VTE Device Contraindication: N/A - Device Ordered VTE Drug Contraindication: Treatment Not Indicated
--- NOTE | 2025-06-14 11:34 | P.DS_ITS ---
DS: Providers Provider Date of Service: 06/16/25 Date of admission: 06/08/25 16:30 Date of discharge: 06/16/25 Primary care physician: Michelle Long MD Consults: 06/08/25 16:30 Consult to Nephrology Routine Consulting Provider: [facility] Reason for consultation: hyperkalemia Has provider been notified: No 06/09/25 07:19 Consult to Vascular Surgery Routine Consulting Provider: [facility] Reason for consultation: bleeding at Hd catheter site Has provider been notified: No 06/10/25 13:05 Consult to Infectious Diseases Routine Consulting Provider: [facility] Reason for consultation: left foot osteomyelitis Has provider been notified: No Consult to Wound Care Routine Reason for consultation: left foot 06/11/25 08:28 Consult to Cardiology Routine Consulting Provider: [facility] Reason for consultation: esrd-?chf component Consult to Critical Care Routine Consulting Provider: Anjum Grigsby Reason for consultation: goal of care DS: Diagnosis Discharge Diagnosis (1) Cardiomyopathy: Status: Acute DS: Summary Hospital Course Hospital Course: from initial hpi: 65-year-old male with history of CKD stage 5, AFib on Xarelto among others who presented to the emergency department with shortness of breath. Patient is a vague historian but reports 2 days of increasing shortness a breath with no associated cough. No fever, no chills. Patient has CKD 5 but has not yet been initiated on hemodialysis. In the emergency department today creatinine had increased to 9.25, bicarb was 13 and potassium of 6.2. He received a dose of Lokelma. IR was not available so a right femoral line was placed by the emergency room provider. Chest x-ray showed cardiomegaly with interstitial and alveolar pulmonary edema, small layering effusion. He was also noted to have wound of the left foot, x-ray shows suspected osteomyelitis. He will be admitted for further mangement and urgent dialysis. hospital course: Patient was admitted for acute on chronic hypoxic respiratory failure which was multifactorial mostly related to acute kidney injury on CKD 5 with fluid overload due to acute on chronic systolic CHF underwent urgent hemodialysis and weaned down to baseline O2 of 1 L. catheter was changed to PermCath. Course complicated with some oozing Xarelto was held but will be restarted on disch arge. Was continued on metoprolol and hydralazine., started on lisinopril, amlodipine held. She will follow up outpatient for further Neuro hormonal adjustments. Acute hyperkalemia resolved. For left diabetic foot ulcer with chronic osteomyelitis was seen by infectious disease who recommended 2-3 weeks of Zyvox and vascular recommended outpatient follow up Dr. Cade. May benefit from TMA in the future. For acute on chronic inflammatory anemia due to CKD is stable between 7 and 8. For paroxysmal AFib Xarelto initially held will be restarted on discharge and continued on metoprolol. Patient was evalutated by pt who recommended STR to which patient will be discharged, he is expected to require less than 30 days. Time Attestation Discharge Coordination Time (in mins): 32 Quality: Safe Use of Opioids Does Pt have an Active Cancer Diagnosis on the Problem List?: No Quality: Stroke Does the patient have a stroke diagnosis?: No Physical Exam Vital Signs: Vital Signs: Last Vital Signs Temp 98.9 F 06/14/25 11:06 Pulse 97 06/14/25 11:06 Resp 20 06/14/25 11:06 BP 150/78 H 06/14/25 11:06 Pulse Ox 97 06/14/25 11:06 O2 Del Method Nasal Cannula 06/14/25 11:06 O2 Flow Rate 1 06/14/25 11:06 Oxygen Flow Rate 4 06/11/25 08:39 BMI result Body Mass Index 22.1 Const: General: no acute distress and alert Resp: Effort & Inspection: normal respiratory effort Auscultation: crackles Cardio: Rate: regular rate Rhythm: regular rhythm Heart sounds: S1 normal heart sound present and S2 normal heart sound present GI: Palpation (GI): Soft to palpation and nontender Skin: Rashes: no rashes Neuro: Other: no tremor. Extrem: General: No edema ( ) DS: Data Data Completed and Pending Completed studies during hospitalization [Text1]: Procedures Excision of Right Kidney, Percutaneous Approach, Diagnostic (04/19/25) Fluoroscopy of Superior Vena Cava, Guidance (02/20/25) Insertion of Infusion Device into Superior Vena Cava, Percutaneous Approach (02/20/25) Insertion of Tunneled Vascular Access Device into Chest Subcutaneous Tissue and Fascia, Percutaneous Approach (02/20/25) Transfusion of Nonautologous Red Blood Cells into Peripheral Vein, Percutaneous Approach (04/19/25) Labs on day of discharge: Laboratory Results - last 24 hr 06/13/25 06/13/25 06/14/25 16:08 20:09 07:00 WBC RBC Hgb Hct MCV MCH MCHC RDW Plt Count MPV Absolute Nucleated RBC Nucleated RBC % (auto) Sodium Potassium Chloride Carbon Dioxide Anion Gap BUN Creatinine Estim Creat Clear Calc Estimated GFR POC Glucose 105 169 H 109 Random Glucose Calcium 06/14/25 06/14/25 08:24 10:49 WBC 10.0 RBC 2.88 L Hgb 8.5 L Hct 25.6 L MCV 88.9 MCH 29.5 MCHC 33.2 RDW 15.8 Plt Count 149 L MPV 11.1 Absolute Nucleated RBC 0.000 Nucleated RBC % (auto) 0.0 Sodium 139 Potassium 4.1 Chloride 105 Carbon Dioxide 22 Anion Gap 16 BUN 46 H Creatinine 5.29 H* Estim Creat Clear Calc 14.3 Estimated GFR 11 POC Glucose 121 H Random Glucose 102 Calcium 7.9 L Discharge Plan Discharge Anticipated Discharge Date/Time: 06/14/25 11:34 Patient Disposition: Xfer SNF Discharge Diagnosis: marisa, new hd, hyperk, om Referrals: [facility] [Outside] - 1 Week Referral Note: TRANSFER FOR SHORT TERM REHAB [facility] [Outside] - 3-5 Days Referral Note: RESUMPTION OF WOUND CARE Medhat Kuhn MD [Physician, Critical Care ([facility])] - 1 Week Michelle Long MD [Primary Care Provider, Medical] - 1 Week Reginaldo Cade MD [Physician, General Surgery] - 1 Week Discharge Medications: New linezolid 600 mg Tablet 600 mg PO Q12H Qty: 40 0RF furosemide 40 mg Tablet 80 mg PO BID@0900,1800 Qty: 180 0RF Protocol: Hold for SBP< HOLD for SBP < : 90 lisinopril 2.5 mg Tablet 2.5 mg PO DAILY@1645 Qty: 90 0RF Protocol: Hold for SBP< HOLD for SBP < : 90 Continued atorvastatin 10 mg tablet 10 mg PO DAILY insulin lispro [Humalog KwikPen Insulin] 100 unit/mL insulin pen See Protocol SUBCUT QIDACHS PRN (Reason: Hypoglycemia) Protocol: Insulin Correction Scale Less than or equal to 110 ---- Give (units): 0 111 to 150 Give (units): 0 151 to 200 Give (units): 2 201 to 250 Give (units): 4 251 to 300 Give (units): 6 301 to 350 Give (units): 8 Greater than 350 Give (units): 10 Call MD if Blood Glucose > : 350 (DME) FreeStyle Lite Strips Strip Qty: 100 0RF Rx Instructions: Test four times a day or as directed. (DME) blood-glucose meter [FreeStyle Lite Meter] Kit Qty: 1 0RF Rx Instructions: As Directed (DME) pen needle, diabetic 32 gauge x 1/4 needle Qty: 100 0RF Rx Instructions: Use four times a day or as directed. (DME) lancets [FreeStyle Lancets] 28 gauge misc Qty: 100 0RF Rx Instructions: Test four times a day or as directed. dapagliflozin propanediol [Farxiga] 10 mg tablet 10 mg PO DAILY finasteride 5 mg tablet 5 mg PO DAILY tamsulosin 0.4 mg capsule 0.4 mg PO DAILY metoprolol succinate 100 mg tablet extended release 24 hr 100 mg PO DAILY aspirin 81 mg tablet,chewable 1 tab PO DAILY Incruse Ellipta 62.5 mcg/actuation blister with device 1 inh inhalation DAILY Xarelto 2.5 mg tablet 2.5 mg PO BID hydralazine 25 mg tablet 50 mg PO TID PRN (Reason: Hypertension) Discontinued furosemide [Lasix] 20 mg tablet 20 mg PO DAILY Qty: 30 0RF amlodipine 5 mg tablet 5 mg PO DAILY Qty: 90 1RF Rx Instructions: dose reduced Discharge Orders: Discharge Order (Routine); Ordered 06/16/25 Ordered By: Indio Hussein Diet: Advance to usual diet Activity on Discharge: As tolerated Stand Alone Forms: Patient Portal Discharge page Print Language: Slovak Care Plan Goals: recovery Health Concerns: esrd, om Plan of Treatment: zyvox 3 weeks, follow up with dr cade follow up with HD Thursday at 5:50a.m med changes as above Assessment: see above
[2025-06-14] MEDS: Metoprolol Succinate ER 100 MG TAB.ER.24H PO (12:00)
[2025-06-14] MEDS: Nitroglycerin 2 % Oint 1 GM Packet 1 INCH TRANSDERMA ×2 (12:03→14:59)
[2025-06-14] MEDS: 0.9 % Sodium Chloride Flush 3 ML SYRINGE IVFLUSH ×3 (12:34→21:50)
--- NOTE | 2025-06-14 14:04 | MHC.CM.PN ---
Addendum entered by Kiara Lipscomb 06/14/25 16:02: Discharge cancelled for today per MD. Of note, pts significant other was able to transport him home today, but will be unable to transport him home tomorrow due to her car being in the shop. Original Note: Second IMM given 06/14. Pt is medically cleared for discharge home with resumption of previous [facility] services and new outpt HD at [facility]. Pts significant other will transport him home today, however she will not be able to provide rides to the pt for HD. This CM spoke with [facility] transportation and set up the first 3 HD session rides for the pt per their protocol. [facility] will set up the rides after the first 3 HD sessions. Booking ID # for the following rides to and from HD: 06/16 #[id number], 06/19 #[id number], 06/21 #[id number].
[2025-06-14 15:18] LABS: Glucose, Whole Blood 187 mg/dL (60-115)
[2025-06-14 16:41] LABS: Glucose, Whole Blood 187 mg/dL (60-115)
[2025-06-14 20:53] LABS: Glucose, Whole Blood 107 mg/dL (60-115)
[2025-06-15] VITALS (10 sets, daily range): BP systolic 113–166; BP diastolic 56–79; PULSE 68–88; RESP 16–18; TEMP 36.6–37.6; O2SAT 97–100
[2025-06-15 07:06] LABS: Glucose, Whole Blood 97 mg/dL (60-115)
[2025-06-15] MEDS: Tiotropium Bromide 2.5 mcg 1 PUFF/2.5 MCG MIST.INHAL 2 PUFF INHALE (08:04)
[2025-06-15] MEDS: Metoprolol Succinate ER 100 MG TAB.ER.24H PO (09:16)
[2025-06-15] MEDS: Nitroglycerin 2 % Oint 1 GM Packet 1 INCH TRANSDERMA ×2 (09:17→15:32)
[2025-06-15] MEDS: 0.9 % Sodium Chloride Flush 3 ML SYRINGE IVFLUSH ×3 (09:17→21:47)
[2025-06-15 09:40] LABS: B Type Natriuretic Peptide 3026 pg/mL (<100)
--- NOTE | 2025-06-15 10:43 | P.PNIM_ITS ---
Subjective Subjective Date of Service: 06/15/25 Interval History: feeling better today Physical Exam 2 Vital Signs: Vital Signs: Last Vital Signs Temp 98.1 F 06/15/25 07:25 Pulse 77 06/15/25 09:16 Resp 16 06/15/25 08:05 BP 164/79 H 06/15/25 09:17 Pulse Ox 100 06/15/25 07:25 O2 Del Method Room Air 06/15/25 07:25 O2 Flow Rate 2 06/15/25 04:00 Oxygen Flow Rate 4 06/11/25 08:39 BMI result Body Mass Index 22.1 Const: General: no acute distress and alert Resp: Effort & Inspection: normal respiratory effort Auscultation: crackles Cardio: Rate: regular rate Rhythm: regular rhythm Heart sounds: S1 normal heart sound present and S2 normal heart sound present GI: Palpation (GI): Soft to palpation and nontender Skin: Rashes: no rashes Neuro: Other: no tremor. Extrem: General: No edema ( ) Objective Data Active Medications Acetaminophen (Acetaminophen 325 Mg Tablet) 650 mg PO Q6H PRN PRN Reason: Pain, Mild 1-3,fever,headache Last Admin: 06/10/25 20:37 Dose: 650 mg Documented By: ALLEN Albuterol Sulfate (Albuterol Sulfate (0.083%) 2.5 Mg/3 Ml Vial.Neb) 2.5 mg INHALE Q4H PRN PRN Reason: Shortness of Breath/Wheezing Last Admin: 06/11/25 09:11 Dose: 2.5 mg Documented By: ELLIS Atorvastatin Calcium (Atorvastatin Calcium 10 Mg Tablet) 10 mg PO DAILY [facility] Last Admin: 06/15/25 09:17 Dose: 10 mg Documented By: JUAN ALBERTO Bacitracin (Bacitracin Oint 14 Gm Tube) 1 appl TOPICAL TID [facility]; Protocol Last Admin: 06/15/25 09:15 Dose: Not Given Documented By: JUAN ALBERTO Non-Admin Reason: Patient Refused Calcium Carbonate (Calcium Carbonate 750 Mg Tab.Chew) 750 mg PO Q4H PRN PRN Reason: Heartburn Dextrose (Dextrose 50 % 25 Gm/50 Ml Syringe) 25 gm IVPUSH Q15M PRN; Protocol PRN Reason: per Hypoglycemia Standing Ord. Finasteride (Finasteride 5 Mg Tablet) 5 mg PO DAILY [facility] Last Admin: 06/15/25 09:17 Dose: 5 mg Documented By: JUAN ALBERTO Furosemide (Furosemide 40 Mg Tablet) 80 mg PO BID@0900,1800 [facility]; Protocol Last Admin: 06/15/25 09:17 Dose: 80 mg Documented By: JUAN ALBERTO Glucose (Glucose Gel 15 Gm Gel..Gram.) 15 gm PO Q15M PRN; Protocol PRN Reason: per Hypoglycemia Standing Ord. Heparin Sodium (Porcine) (Heparin Sodium,Porcine 5,000 Unit/Ml Vial) 5,000 unit INTRACATH MOWEFR@1645 [facility] Last Admin: 06/14/25 16:45 Dose: Not Given Documented By: JUAN ALBERTO Non-Admin Reason: given by HD RN in dialysis Hydralazine HCl (Hydralazine Hcl 50 Mg Tablet) 50 mg PO TID PRN; Protocol PRN Reason: Hypertension Last Admin: 06/13/25 04:01 Dose: 50 mg Documented By: LILIAN Insulin Human Lispro (Insulin Lispro 100 Unit/Ml 3 Ml Vial) 0 unit SUBCUT QIDAS [facility]; Protocol Last Admin: 06/15/25 07:10 Dose: Not Given Documented By: JUAN ALBERTO Non-Admin Reason: No Insulin Coverage Linezolid (Linezolid 600 Mg Tablet) 600 mg PO Q12H [facility] Last Admin: 06/15/25 09:17 Dose: 600 mg Documented By: JUAN ALBERTO Lisinopril (Lisinopril 2.5 Mg Tablet) 2.5 mg PO DAILY@1645 [facility]; Protocol Magnesium Hydroxide (Milk Of Magnesia 30 Ml Oral.Susp) 30 ml PO DAILY PRN PRN Reason: Constipation Melatonin (Melatonin 3 Mg Tablet) 6 mg PO BEDTIME PRN PRN Reason: Insomnia Last Admin: 06/09/25 23:40 Dose: 6 mg Documented By: RAGHAV Metoprolol Succinate (Metoprolol Succinate Er 100 Mg Tab.Er.24h) 100 mg PO DAILY [facility]; Protocol Last Admin: 06/15/25 09:16 Dose: 100 mg Documented By: JUAN ALBERTO Nitroglycerin (Nitroglycerin 2 % Oint 1 Gm Packet) 1 inch TRANSDERMA BID@0900,1500 [facility] Last Admin: 06/15/25 09:17 Dose: 1 inch Documented By: HO.ARTING Sodium Chloride (0.9 % Sodium Chloride Flush 3 Ml Syringe) 3 ml IVFLUSH QSHIFT [facility] Last Admin: 06/15/25 09:17 Dose: 3 ml Documented By: JUAN ALBERTO Sodium Chloride (0.9 % Sodium Chloride Flush 10 Ml Syringe) 5 ml IVFLUSH ONCE PRN PRN Reason: Infusion Center Tamsulosin HCl (Tamsulosin Hcl 0.4 Mg Capsule) 0.4 mg PO DAILY [facility] Last Admin: 06/15/25 09:16 Dose: 0.4 mg Documented By: JUAN ALBERTO Tiotropium Coxsackie (Tiotropium [place]ackie 2.5 Mcg 1 Puff/2.5 Mcg Mist.Inhal) 2 puff INHALE RDAILY [facility] Last Admin: 06/15/25 08:04 Dose: 2 puff Documented By: SACHIN Labs 06/14/25 08:24 06/14/25 08:24 Labs: Laboratory Results - last 24 hr 06/14/25 06/14/25 06/14/25 10:49 15:15 16:37 POC Glucose 121 H 187 H 187 H B-Natriuretic Peptide 06/14/25 06/15/25 06/15/25 20:50 07:01 08:41 POC Glucose 107 97 B-Natriuretic Peptide 3026 H Assessment and Plan (1) Cardiomyopathy: Status: Acute Plan 65M PMH CKDV, pafib on xarelto, htn, bph, chronic resp failure due to copd, hfref EF 25%, pvd, marilynn presented with sob, marisa, hyperkalemia Acute on chronic respiratory failure multifactorial Acute kidney injury on CKD 5 with fluid overload Acute on chronic systolic CHF Hemodialysis initiated, now on baseline O2 PermCath placed Continue metoprolol, hydralazine Plan was for discharge yesterday 06/14/2025 but felt weak and dizzy right after dialysis so kept overnight will get PT eval Acute hyperkalemia Resolved Left foot diabetic ulcer with chronic osteomyelitis 2-3 weeks of Zyvox per ID Outpatient vascular follow up with Dr. Gomez Acute on chronic inflammatory anemia due to chronic kidney disease Paroxysmal AFib Xarelto held for oozing, on discharge will restart with low-dose Eliquis Continue metoprolol DVT prophylaxis-mechanical due to oozing Full code reason for continued hospitalization: Dispo planning Quality Stroke Does the patient have a stroke diagnosis?: No VTE Prior VTE?: No VTE Risk Level:: Medical - moderate - high VTE Device Contraindication: N/A - Device Ordered VTE Drug Contraindication: Treatment Not Indicated
[2025-06-15 10:56] LABS: Glucose, Whole Blood 154 mg/dL (60-115)
--- NOTE | 2025-06-15 12:26 | PM.PNNEP ---
Subjective Subjective Date of Service: 06/15/25 Interval history: Following for ESRD, now on HD MWF. Patient states he feels well today, denies concerns/complaints. Physical Exam Vital Signs: Vital Signs: Last Vital Signs Temp 98.9 F 06/15/25 10:59 Pulse 68 06/15/25 10:59 Resp 16 06/15/25 10:59 BP 120/62 06/15/25 11:47 Pulse Ox 100 06/15/25 10:59 O2 Del Method Room Air 06/15/25 10:59 O2 Flow Rate 2 06/15/25 04:00 Oxygen Flow Rate 4 06/11/25 08:39 BMI result Body Mass Index 22.1 Const: General: no acute distress and alert Resp: Effort & Inspection: normal respiratory effort Auscultation: crackles Cardio: Rate: regular rate Rhythm: regular rhythm Heart sounds: S1 normal heart sound present and S2 normal heart sound present GI: Palpation (GI): Soft to palpation and nontender Skin: Rashes: no rashes Neuro: Other: no tremor. Extrem: General: No edema ( ) Objective Data Labs 06/14/25 08:24 06/14/25 08:24 Labs: Laboratory Results - last 24 hr 06/14/25 06/14/25 06/14/25 15:15 16:37 20:50 POC Glucose 187 H 187 H 107 B-Natriuretic Peptide 06/15/25 06/15/25 06/15/25 07:01 08:41 10:52 POC Glucose 97 154 H B-Natriuretic Peptide 3026 H Microbiology Microbiology Results: Microbiology 06/08/25 12:45 Blood - Venous Blood Culture - Final No growth after 5 days. 06/08/25 12:25 Blood - Venous Blood Culture - Final No growth after 5 days. Procedures Date of Service Date of Service: 06/15/25 Assessment & Plan Assessment and plan (1) ESRD on dialysis: Status: Acute Plan ESRD requiring dialysis new permcath in place Will need continued HD MWF patient appears euvolemic today venofer admininstered yesterday for iron deficiency anemia electrolytes within normal limits; calcium low at 7.9, will continue to monitor. Phos normal at 4.4 no metabolic acidosis at this time low K, low phos, low sodium diet. limit fluid intake to 1.5L/24 hours blood pressures acceptable at this time continue supportive care patient is ok for discharge from a renal standpoint after dialysis today- he will need to have transportation for first dialysis session on Thursday arranged before he can be discharged to ensure he does not miss any dialysis sessions. Per hospital medicine, he has transport arranged for first Thursday HD session. He has an outpatient slot at [facility] in [address] (phone # [phone]). Arrival time is 5:50a.m. on 06/16/25. Discussed with Dr Kuhn Time Spent With Patient Time: Total time managing care of this patient today ____ minutes. Progress Note: Quality Stroke Does the patient have a stroke diagnosis?: No
--- NOTE | 2025-06-15 14:53 | MHC.CM.PN ---
P.T. HAS RECOMMENDED STR AND PT AND ARE AGREEABLE TO THIS. FIRST CHOICE IS [facility] WHO HAS OFFERED A BED PENDING AUTH. CENTER DOES NOT ANTICIPATE AUTH UNTIL TOMORROW. [facility] UPDATED AND 06/16 TX CANCELLED, WILL HAVE HD HERE. PT WILL START NEW HD AT [facility] 06/19 WITH ARRIVAL TIME AT 5:45 AM. [facility] TRANSPORT NOTIFIED OF CANCELLATION FOR 06/16 AND NEW TIME AND ADDRESS OF REHAB FOR 06/19 AND 06/21. [facility] TRANSPORT WILL P/U PT AT 4: 45 AM AT [address] [place] [address] ON 06/19. /HCP UPDATED. AWARE.
[2025-06-15 16:02] LABS: Glucose, Whole Blood 140 mg/dL (60-115)
[2025-06-15 20:30] LABS: Glucose, Whole Blood 171 mg/dL (60-115)
[2025-06-16] VITALS (7 sets, daily range): BP systolic 131–163; BP diastolic 60–80; PULSE 74–89; RESP 15–20; TEMP 35.9–36.7; O2SAT 95–99
[2025-06-16 06:52] LABS: Glucose, Whole Blood 86 mg/dL (60-115)
[2025-06-16] MEDS: Tiotropium Bromide 2.5 mcg 1 PUFF/2.5 MCG MIST.INHAL 2 PUFF INHALE (07:42)
[2025-06-16 09:21] LABS: Hematocrit 26.0 % (42.0-52.0); Hemoglobin 8.4 g/dl (14.0-18.0); Mean Corpuscular HGB Conc 32.3 g/dl (31.0-36.0); Mean Corpuscular Hemoglobin 29.0 pg (27.0-33.0); Mean Corpuscular Volume 89.7 fL (80.0-98.0); NRBC Abs Auto 0.000 X10*3/uL (0.0-0.012); NRBC Pct Auto 0.0 /100WBC (0.0-0.2); Platelet Count 160 X10*3/uL (160-400); Red Blood Count 2.90 X10*6/uL (4.60-5.80); White Blood Count 8.8 X10*3/uL (4.8-10.8)
[2025-06-16 09:43] LABS: Anion Gap 12 (12-20); Blood Urea Nitrogen 35 mg/dL (9-16); Calcium 8.1 mg/dL (8.4-10.2); Carbon Dioxide 27 mmol/L (22-29); Chloride 102 mmol/L (96-108); Creatinine Clr Calc Pharmacy 19.5; Estimated Glomerular Filt Rate 16; Potassium 3.0 mmol/L (3.3-5.1); Sodium 138 mmol/L (135-145)
--- NOTE | 2025-06-16 09:57 | P.PNIM_ITS ---
Subjective Subjective Date of Service: 06/16/25 Interval History: feeling better today Physical Exam 2 Vital Signs: Vital Signs: Last Vital Signs Temp 97.8 F 06/16/25 07:06 Pulse 85 06/16/25 07:44 Resp 15 06/16/25 07:44 BP 160/71 H 06/16/25 07:06 Pulse Ox 96 06/16/25 07:06 O2 Del Method Nasal Cannula 06/16/25 07:06 O2 Flow Rate 2 06/16/25 07:06 Oxygen Flow Rate 4 06/11/25 08:39 BMI result Body Mass Index 22.1 Const: General: no acute distress and alert Resp: Effort & Inspection: normal respiratory effort Auscultation: crackles Cardio: Rate: regular rate Rhythm: regular rhythm Heart sounds: S1 normal heart sound present and S2 normal heart sound present GI: Palpation (GI): Soft to palpation and nontender Skin: Rashes: no rashes Neuro: Other: no tremor. Extrem: General: No edema ( ) Objective Data Active Medications Acetaminophen (Acetaminophen 325 Mg Tablet) 650 mg PO Q6H PRN PRN Reason: Pain, Mild 1-3,fever,headache Last Admin: 06/10/25 20:37 Dose: 650 mg Documented By: ALLEN Atorvastatin Calcium (Atorvastatin Calcium 10 Mg Tablet) 10 mg PO DAILY [facility] Last Admin: 06/15/25 09:17 Dose: 10 mg Documented By: JUAN ALBERTO Bacitracin (Bacitracin Oint 14 Gm Tube) 1 appl TOPICAL TID [facility]; Protocol Last Admin: 06/15/25 21:47 Dose: Not Given Documented By: HARPAL Non-Admin Reason: Patient Refused Calcium Carbonate (Calcium Carbonate 750 Mg Tab.Chew) 750 mg PO Q4H PRN PRN Reason: Heartburn Dextrose (Dextrose 50 % 25 Gm/50 Ml Syringe) 25 gm IVPUSH Q15M PRN; Protocol PRN Reason: per Hypoglycemia Standing Ord. Finasteride (Finasteride 5 Mg Tablet) 5 mg PO DAILY [facility] Last Admin: 06/15/25 09:17 Dose: 5 mg Documented By: JUAN ALBERTO Furosemide (Furosemide 40 Mg Tablet) 80 mg PO BID@0900,1800 [facility]; Protocol Last Admin: 06/15/25 17:15 Dose: 80 mg Documented By: JUAN ALBERTO Glucose (Glucose Gel 15 Gm Gel..Gram.) 15 gm PO Q15M PRN; Protocol PRN Reason: per Hypoglycemia Standing Ord. Heparin Sodium (Porcine) (Heparin Sodium,Porcine 5,000 Unit/Ml Vial) 5,000 unit INTRACATH MOWEFR@1645 [facility] Last Admin: 06/14/25 16:45 Dose: Not Given Documented By: JUAN ALBERTO Non-Admin Reason: given by HD RN in dialysis Hydralazine HCl (Hydralazine Hcl 50 Mg Tablet) 50 mg PO TID PRN; Protocol PRN Reason: Hypertension Last Admin: 06/13/25 04:01 Dose: 50 mg Documented By: LILIAN Insulin Human Lispro (Insulin Lispro 100 Unit/Ml 3 Ml Vial) 0 unit SUBCUT QIDACHS [facility]; Protocol Last Admin: 06/15/25 21:46 Dose: 2 unit Documented By: HARPAL Linezolid (Linezolid 600 Mg Tablet) 600 mg PO Q12H [facility] Last Admin: 06/15/25 21:47 Dose: 600 mg Documented By: HARPAL Lisinopril (Lisinopril 2.5 Mg Tablet) 2.5 mg PO DAILY@1645 [facility]; Protocol Last Admin: 06/15/25 17:15 Dose: 2.5 mg Documented By: JUAN ALBERTO Magnesium Hydroxide (Milk Of Magnesia 30 Ml Oral.Susp) 30 ml PO DAILY PRN PRN Reason: Constipation Melatonin (Melatonin 3 Mg Tablet) 6 mg PO BEDTIME PRN PRN Reason: Insomnia Last Admin: 06/16/25 02:55 Dose: 6 mg Documented By: HARPAL Metoprolol Succinate (Metoprolol Succinate Er 100 Mg Tab.Er.24h) 100 mg PO DAILY [facility]; Protocol Last Admin: 06/15/25 09:16 Dose: 100 mg Documented By: JUAN ALBERTO Nitroglycerin (Nitroglycerin 2 % Oint 1 Gm Packet) 1 inch TRANSDERMA BID@0900,1500 [facility] Last Admin: 06/15/25 15:32 Dose: 1 inch Documented By: JUAN ALBERTO Sodium Chloride (0.9 % Sodium Chloride Flush 3 Ml Syringe) 3 ml IVFLUSH QSHIFT [facility] Last Admin: 06/15/25 21:47 Dose: 3 ml Documented By: HARPAL Sodium Chloride (0.9 % Sodium Chloride Flush 10 Ml Syringe) 5 ml IVFLUSH ONCE PRN PRN Reason: Infusion Center Tamsulosin HCl (Tamsulosin Hcl 0.4 Mg Capsule) 0.4 mg PO DAILY [facility] Last Admin: 06/15/25 09:16 Dose: 0.4 mg Documented By: JUAN ALBERTO Tiotropium Sunnyside (Tiotropium Sunnyside 2.5 Mcg 1 Puff/2.5 Mcg Mist.Inhal) 2 puff INHALE RDAILY [facility] Last Admin: 06/16/25 07:42 Dose: 2 puff Documented By: SACHIN Labs 06/16/25 08:58 06/16/25 08:58 Labs: Laboratory Results - last 24 hr 06/15/25 06/15/25 06/15/25 10:52 15:57 20:26 MCV MCH MCHC RDW Plt Count MPV Absolute Nucleated RBC Nucleated RBC % (auto) Anion Gap Estim Creat Clear Calc Estimated GFR POC Glucose 154 H 140 H 171 H Random Glucose Calcium Phosphorus 06/16/25 06/16/25 06:48 08:58 MCV 89.7 MCH 29.0 MCHC 32.3 RDW 15.4 Plt Count 160 MPV 10.8 Absolute Nucleated RBC 0.000 Nucleated RBC % (auto) 0.0 Anion Gap 12 Estim Creat Clear Calc 19.5 Estimated GFR 16 POC Glucose 86 Random Glucose 148 H Calcium 8.1 L Phosphorus 3.7 Assessment and Plan (1) Cardiomyopathy: Status: Acute Plan 65M PMH CKDV, pafib on xarelto, htn, bph, chronic resp failure due to copd, 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 Gomez Acute on chronic inflammatory anemia due to chronic kidney disease Paroxysmal AFib Xarelto held for oozing, on discharge will restart with low-dose Eliquis Continue metoprolol DVT prophylaxis-mechanical due to oozing Full code reason for continued hospitalization: Dispo planning Quality Stroke Does the patient have a stroke diagnosis?: No VTE Prior VTE?: No VTE Risk Level:: Medical - moderate - high VTE Device Contraindication: N/A - Device Ordered VTE Drug Contraindication: Treatment Not Indicated
[2025-06-16 10:50] LABS: Glucose, Whole Blood 117 mg/dL (60-115)
[2025-06-16] MEDS: Metoprolol Succinate ER 100 MG TAB.ER.24H PO (12:35)
--- NOTE | 2025-06-16 12:38 | P.PNNPD_ITS ---
Subjective Subjective Date of Service: 06/16/25 This patient was seen during dialysis. Interval history: Seen on dialysis this a.m. Pt denies shortness of breath, denies new concerns/complaints. Physical Exam Vital Signs: Vital Signs: Last Vital Signs Temp 97.6 F 06/16/25 12:00 Pulse 74 06/16/25 12:00 Resp 20 06/16/25 12:00 BP 162/78 H 06/16/25 12:00 Pulse Ox 95 06/16/25 12:00 O2 Del Method Nasal Cannula 06/16/25 12:00 O2 Flow Rate 2 06/16/25 12:00 Oxygen Flow Rate 4 06/11/25 08:39 BMI result Body Mass Index 22.1 Const: General: no acute distress and alert Resp: Effort & Inspection: normal respiratory effort Auscultation: crackles Cardio: Rate: regular rate Rhythm: regular rhythm Heart sounds: S1 normal heart sound present and S2 normal heart sound present GI: Palpation (GI): Soft to palpation and nontender Skin: Rashes: no rashes Neuro: Other: no tremor. Extrem: General: No edema ( ) Assessment & Plan Assessment and plan (1) ESRD on dialysis: Status: Acute Plan ESRD requiring dialysis new permcath in place Will need continued HD MWF patient appears euvolemic today venofer admininstered for iron deficiency anemia, may continue as outpatient. electrolytes unremarkable no metabolic acidosis at this time low K, low phos, low sodium diet. limit fluid intake to 1.5L/24 hours blood pressures acceptable at this time continue supportive care patient is ok for discharge from a renal standpoint after dialysis today- he ratna l need to have transportation for first dialysis session on Thursday arranged before he can be discharged to ensure he does not miss any dialysis sessions. Per hospital medicine, he has transport arranged for first Thursday HD session. He has an outpatient slot at [facility] in [place], [address] [place] [address] (phone # [phone]). Arrival time is 5:50a.m. on 06/19/25. Discussed with Dr Kuhn Time Spent With Patient Time: Total time managing care of this patient today ____ minutes. Procedures Date of Service Date of Service: 06/16/25
--- NOTE | 2025-06-16 15:49 | MHC.CM.PN ---
Pt is medically cleared for discharge to [facility] today, he will transport there via BLS at 4pm. Per [facility] liaison, ambulance booked for 4pm. Pt and his significant other are aware and in agreement with discharge plan. [facility] transport auth received, booking ID# [id number].
[2025-06-16] MEDS: Nitroglycerin 2 % Oint 1 GM Packet 1 INCH TRANSDERMA (16:12)
[2025-06-16 16:14] LABS: Glucose, Whole Blood 157 mg/dL (60-115)
--- NOTE | 2025-07-04 08:24 | P.CDIM_ITS ---
PROVIDER RESPONSE TEXT: To clarify, the appropriate diagnosis supported by the clinical indicators: Pneumonia was ruled out QUERY TEXT: PHYSICIAN'S DOCUMENTATION REQUEST Date of Query: 07/04/2025 07:41 AM EDT Patient Name: Renato Hinson Admit Date: 06/08/2025 Dear Indio Hussein MD, A review of the medical record indicates additional documentation may be needed. Please review below and update the documentation accordingly. Clinical Indicators: presented to ED with SOB, clinical impression Pneumonia CXR: Patient's chest XR showed evidence of pneumonia IV Piperacillin/Tazobactam and IV Vancomycin PMH COPD The diagnosis of Pneumonia was documented on 06/08/25 but is not consistently noted in subsequent documentation. Please clarify the following: Pneumonia was present on admission and is now resolved Pneumonia was present on admission and is still being monitored, evaluated, or treated Pneumonia was ruled out Pneumonia is still a likely, suspected, probable diagnosis Other (explain) Clinically unable to determine (explain) Thank you, Rubina Arias RN Use of terms such as suspected, likely, concern for, or probable (associated with a specific diagnosis that is being evaluated, monitored, or treated as if it exists) are acceptable and can be coded in the inpatient setting, when documented at the time of discharge. Please use your independent medical judgment in providing your response. THIS QUERY IS PART OF THE PERMANENT MEDICAL RECORD
== END 2025-06-16 16:22 | disposition skilled nursing facility (03) | DRG 291 ==
LOC: HO.ED 16:34 → HO.EDOVER 16:37 → HO.IMC 16:52
PROVIDERS: Hospitalist; Internal Medicine; Internal Medicine Nephrology; Nurse Practitioner Family; Physician Assistant Medical; Radiology Diagnostic Radiology; Admitting Provider Physician Assistant Medical; Emergency Provider Emergency Medicine; PCP Internal Medicine; Visit Provider Internal Medicine
PROC: 0JH63XZ Insertion of Tunneled Vascular Access Device into Chest Subcutaneous Tissue and Fascia, Percutaneous Approach (ICD-10-PCS; principal; 2025-06-12 13:30)
DX: I13.2 Hypertensive heart and chronic kidney disease with heart failure and with stage 5 chronic kidney disease, or end stage renal disease (principal); I50.33 Acute on chronic diastolic (congestive) heart failure; J96.21 Acute and chronic respiratory failure with hypoxia; N18.6 End stage renal disease; T82.838A Hemorrhage due to vascular prosthetic devices, implants and grafts, initial encounter; M86.372 Chronic multifocal osteomyelitis, left ankle and foot; E11.22 Type 2 diabetes mellitus with diabetic chronic kidney disease; I48.0 Paroxysmal atrial fibrillation; E11.42 Type 2 diabetes mellitus with diabetic polyneuropathy; E11.69 Type 2 diabetes mellitus with other specified complication; N40.0 Benign prostatic hyperplasia without lower urinary tract symptoms; G47.33 Obstructive sleep apnea (adult) (pediatric); Y74.1 Therapeutic (nonsurgical) and rehabilitative general hospital and personal-use devices associated with adverse incidents; E87.5 Hyperkalemia; E11.621 Type 2 diabetes mellitus with foot ulcer; L97.529 Non-pressure chronic ulcer of other part of left foot with unspecified severity; J44.9 Chronic obstructive pulmonary disease, unspecified; Z89.511 Acquired absence of right leg below knee; Z99.81 Dependence on supplemental oxygen; Z99.2 Dependence on renal dialysis; Z79.4 Long term (current) use of insulin; Z79.01 Long term (current) use of anticoagulants; Z79.82 Long term (current) use of aspirin; Z79.899 Other long term (current) drug therapy
CPT/HCPCS: 36415; 36558; 36600; 71045; 71046; 73630; 73720; 80048; 80053; 80202; 82803; 82947; 83540; 83605; 83735; 83880; 84100; 84484; 85014; 85018; 85025; 85027; 85049; 85610; 85652; 86140; 86704; 86706; 86850; 86870; 86880; 86900; 86901; 86920; 86922; 87040; 87340; 90999; 93005; 93306; 94640; 97162; 99285; A9585; C1750; C1769; J1644; J1756; J1938; J2003; J2543; J2597; J2919; J3010; J3360; J3373; J3374; J3430; J3475; P9016; P9073; Q9957

== ENCOUNTER → 2025-06-08 10:09 | Outpatient (BNV) | payer OTHER, SELFPAY | PROVIDERS: Emergency Provider Emergency Medicine; Visit Provider Nurse Practitioner Family | DX: N17.9 Acute kidney failure, unspecified (principal); N18.9 Chronic kidney disease, unspecified | CPT/HCPCS: 99232 ==

== ENCOUNTER → 2025-06-08 11:18 | Outpatient (BNV) | payer OTHER, SELFPAY | PROVIDERS: Admitting Provider Physician Assistant Medical; Emergency Provider Emergency Medicine; PCP Internal Medicine; Visit Provider Internal Medicine Cardiovascular Disease | DX: I45.4 Nonspecific intraventricular block (principal) | CPT/HCPCS: 93010 ==

== ENCOUNTER → 2025-06-08 11:18 | Outpatient (BNV) | payer OTHER, SELFPAY | PROVIDERS: Visit Provider Radiology Diagnostic Radiology | DX: R06.02 Shortness of breath (principal); I51.7 Cardiomegaly; J90 Pleural effusion, not elsewhere classified; J84.89 Other specified interstitial pulmonary diseases; M79.672 Pain in left foot | CPT/HCPCS: 71046; 73630 ==

== ENCOUNTER 2025-06-08 16:30 | Outpatient (BNV) | payer OTHER, SELFPAY | END 2025-06-11 08:18 | PROVIDERS: Admitting Provider Physician Assistant Medical; Emergency Provider Emergency Medicine; PCP Internal Medicine; Visit Provider Radiology Diagnostic Radiology | DX: J90 Pleural effusion, not elsewhere classified (principal); J84.89 Other specified interstitial pulmonary diseases | CPT/HCPCS: 71045 ==

== ENCOUNTER 2025-06-08 16:30 | Outpatient (BNV) | payer OTHER, SELFPAY | END 2025-06-09 12:30 | PROVIDERS: Admitting Provider Physician Assistant Medical; Emergency Provider Emergency Medicine; PCP Internal Medicine; Visit Provider Radiology Diagnostic Radiology | DX: M86.372 Chronic multifocal osteomyelitis, left ankle and foot (principal); L02.611 Cutaneous abscess of right foot; L97.529 Non-pressure chronic ulcer of other part of left foot with unspecified severity | CPT/HCPCS: 73720 ==

== ENCOUNTER 2025-06-08 16:30 | Outpatient (BNV) | payer OTHER, SELFPAY | END 2025-06-12 07:00 | PROVIDERS: Admitting Provider Physician Assistant Medical; Emergency Provider Emergency Medicine; PCP Internal Medicine; Visit Provider Internal Medicine Cardiovascular Disease | DX: I51.7 Cardiomegaly (principal); I50.9 Heart failure, unspecified | CPT/HCPCS: 93306 ==

== ENCOUNTER 2025-06-08 16:30 | Outpatient (BNV) | payer OTHER, SELFPAY | END 2025-06-12 13:32 | PROVIDERS: Admitting Provider Physician Assistant Medical; Emergency Provider Emergency Medicine; PCP Internal Medicine; Visit Provider Radiology Diagnostic Radiology | DX: T82.41XA Breakdown (mechanical) of vascular dialysis catheter, initial encounter (principal); N17.9 Acute kidney failure, unspecified | CPT/HCPCS: 36558; 76937; 77001 ==

== ENCOUNTER → 2025-06-08 16:30 | Outpatient (BNV) | payer OTHER, SELFPAY | PROVIDERS: Admitting Provider Physician Assistant Medical; Emergency Provider Emergency Medicine; Visit Provider Physician Assistant Medical | DX: N17.9 Acute kidney failure, unspecified (principal); E87.5 Hyperkalemia | CPT/HCPCS: 99223; 99231; 99232 ==

== ENCOUNTER → 2025-06-08 16:30 | Outpatient (BNV) | payer OTHER, SELFPAY | PROVIDERS: Admitting Provider Physician Assistant Medical; Emergency Provider Emergency Medicine; PCP Internal Medicine; Visit Provider Internal Medicine Cardiovascular Disease | DX: I50.9 Heart failure, unspecified (principal) | CPT/HCPCS: 99222 ==

== ENCOUNTER → 2025-06-08 16:30 | Outpatient (BNV) | payer OTHER, SELFPAY | PROVIDERS: Admitting Provider Physician Assistant Medical; Emergency Provider Emergency Medicine; PCP Internal Medicine; Visit Provider Internal Medicine | DX: M86.9 Osteomyelitis, unspecified (principal) | CPT/HCPCS: 99222 ==

== ENCOUNTER → 2025-06-08 16:30 | Outpatient (BNV) | payer OTHER, SELFPAY | PROVIDERS: Admitting Provider Physician Assistant Medical; Emergency Provider Emergency Medicine; Visit Provider Surgery Vascular Surgery | DX: N17.9 Acute kidney failure, unspecified (principal); N18.9 Chronic kidney disease, unspecified; M86.9 Osteomyelitis, unspecified | CPT/HCPCS: 99222; 99232 ==

== ENCOUNTER → 2025-06-08 16:30 | Outpatient (BNV) | payer OTHER, SELFPAY | PROVIDERS: Admitting Provider Physician Assistant Medical; Emergency Provider Emergency Medicine; PCP Internal Medicine; Visit Provider Internal Medicine Pulmonary Disease | DX: N18.5 Chronic kidney disease, stage 5 (principal); J96.01 Acute respiratory failure with hypoxia; J81.1 Chronic pulmonary edema; N17.9 Acute kidney failure, unspecified | CPT/HCPCS: 99223 ==

== ENCOUNTER 2025-06-19 23:21 | Emergency (ER) | payer OTHER, SELFPAY ==
--- NOTE | ~2025-06-19 | CT_ITS ---
CLINICAL HISTORY: dialysis bleed CT chest with contrast Comparison: CT/SR - CT CHEST WO IV CON - 02/20/2025 03:38 AM EDT Findings: Cardiomegaly. No pericardial effusion. The visualized thyroid and mediastinum are unremarkable. Right internal jugular tunnel dialysis catheter. Left axilla subdermal fluid collection 2 cm with no inflammatory change. Possible sebaceous cyst. Moderate bilateral pleural effusions. Minor dependent atelectasis both lungs. No consolidation. Bilateral renal cysts. Large amount of stool in the upper abdomen. T9 segmentation anomaly. No acute fractures. IMPRESSION: 1. Right internal jugular tunnel dialysis catheter noted. No acute hemorrhage demonstrated. 2. Moderate bilateral pleural effusions. 3. Additional findings as above. This document has been electronically signed by: Jane Urbano MD on 06/20/2025 03:17:54
[2025-06-19 23:35] VITALS: BP 150/48; PULSE 100; RESP 16; TEMP 36.8; BMI 19.7
--- NOTE | 2025-06-20 | PC.NURSE ---
dialysis port actively bleeding. provider called to bedside. pressure dressing applied. awaiting new orders.
[2025-06-20 00:19] VITALS: BP 191/33; PULSE 75
[2025-06-20] MEDS: Tranexamic Acid 1,000 MG in 0.9 % Sodium Chloride 50 ML 360 MG IRRIGATION (00:20)
--- NOTE | 2025-06-20 00:20 | PC.NURSE ---
verbal order per provider. soak dressing in tka and apply surgicel
--- OUTSIDE RECORDS SUMMARY | 2025-06-20 00:30 | XMS_ITS | Encounter Summary ---
Author Organization [facility] Address [address] [place] [address] Care Team Providers Care Firepot Operator And Tender Name Role Phone Travis Au MD Primary Care Provider [phone] Encounter Details Date Type Department Care Team (Late st Contact Info) Description 08/22/[address] [facility] - Main Lab [address] [facility] [place] [address] Travis Au MD [address] [place] [address] [address] [facility] [phone] Type 2 diabetes mellitus without complications [...] * Hemoglobin A1c (08/22/2024 5:16 AM EST) [facility] Hemoglobin A1C 6.4 <6.5 % LAB CHEMISTRY METHOD 08/23/2024 7:38 PM EST [facility] LAB Mean Bld Glu Estim. 137 mg/dL LAB CHEMISTRY METHOD 08/23/2024 7:38 PM EST [facility] LAB Blood Venous blood specimen / Unknown 08/22/2024 5:16 AM EST 08/22/2024 7:59 AM EST us Travis Au MD LAB BLOOD ORDERABLES Final Resul t [facility] LAB [address] [place] [address], [place] [phone] * (ABNORMAL) CBC auto differential (08/22/2024 5:16 AM EST) [facility] WBC 7.0 4.8 - 10.8 K/mcL LAB HEMETOLOGY METHOD 08/22/2024 8:13 AM [facility] LAB RBC 3.30(L) 4.50 - 5.50 M/[facility] LAB HEMETOLOGY METHOD 08/22/2024 8:13 AM [facility] LAB Hemoglobin 9.8(L) 13.5 - 17.5 g/dL LAB HEMETOLOGY METHOD 08/22/2024 8:13 AM [facility] LAB Hematocrit 31.2(L) 42.0 - 54.0 % LAB HEMETOLOGY METHOD 08/22/2024 8:13 AM [facility] LAB MCV 94.8 79.0 - 98.0 FL LAB HEMETOLOGY METHOD 08/22/2024 8:13 AM [facility] LAB MCH 29.8 27.0 - 32.0 pcg LAB HEMETOLOGY METHOD 08/22/2024 8:13 AM [facility] LAB MCHC 31.4(L) 32.0 - 37.0 g/dL LAB HEMETOLOGY METHOD 08/22/2024 8:13 AM [facility] LAB RDW 13.2 11.0 - 15.0 % LAB HEMETOLOGY METHOD 08/22/2024 8:13 AM [facility] LAB Platelets 232 130 - 400 K/mcL LAB HEMETOLOGY METHOD 08/22/2024 8:13 AM [facility] LAB MPV 10.9 7.0 - 11.0 FL LAB HEMETOLOGY METHOD 08/22/2024 8:13 AM [facility] LAB NRBC 0.0 <1.0 % LAB HEMETOLOGY METHOD 08/22/2024 8:13 AM [facility] LAB NRBC Absolute 0.00 <0.10 K/mcL LAB HEMETOLOGY METHOD 08/22/2024 8:13 AM [facility] LAB Neutrophils Relative 61.3 % LAB HEMETOLOGY METHOD 08/22/2024 8:13 AM [facility] Lymphocytes Relative 24.5 % LAB HEMETOLOGY METHOD 08/22/2024 8:13 AM [facility] Monocytes Relative 5.9 % LAB HEMETOLOGY METHOD 08/22/2024 8:13 AM [facility] Eosinophils Relative 6.6 % LAB HEMETOLOGY METHOD 08/22/2024 8:13 AM [facility] Basophils Relative 1.3 % LAB HEMETOLOGY METHOD 08/22/2024 8:13 AM [facility] Immature Granulocytes Relative 0.4 % LAB HEMETOLOGY METHOD 08/22/2024 8:13 AM [facility] LAB Neutrophils Absolute 4.29 1.50 - 7.00 K/mcL LAB HEMETOLOGY METHOD 08/22/2024 8:13 AM EST [facility] LAB Lymphocytes Absolute 1.71 1.00 - 5.00 K/[facility] LAB HEMETOLOGY METHOD 08/22/2024 8:13 AM [facility] LAB Monocytes Absolute 0.41 0.20 - 1.00 K/mcL LAB HEMETOLOGY METHOD 08/22/2024 8:13 AM EST [facility] LAB Eosinophils Absolute 0.46 0.00 - 0.50 K/[facility] LAB HEMETOLOGY METHOD 08/22/2024 8:13 AM [facility] LAB Basophils Absolute 0.09 0.00 - 0.20 K/[facility] LAB HEMETOLOGY METHOD 08/22/2024 8:13 AM [facility] LAB Immature Granulocytes Absolute 0.03 0.00 - 0.03 K/[facility] LAB HEMETOLOGY METHOD 08/22/2024 8:13 AM [facility] LAB Blood Venous blood specimen / Unknown Venipuncture / Unknown 08/22/2024 5:16 AM EST 08/22/2024 7:22 AM EST us Travis Au MD LAB BLOOD ORDERABLES Final Resul t [facility] [address] [place] [address], * (ABNORMAL) Comprehensive metabolic panel (08/22/2024 5:16 AM EST) Sodium 139 133 - 145 mmol/L LAB CHEMISTRY METHOD 08/22/2024 9:02 AM [facility] Potassium 4.2 3.5 - 5.5 mmol/L LAB CHEMISTRY METHOD 08/22/2024 9:02 AM [facility] LAB Chloride 108 96 - 110 mmol/L LAB CHEMISTRY METHOD 08/22/2024 9:02 AM [facility] LAB CO2 23 21 - 32 mmol/L LAB CHEMISTRY METHOD 08/22/2024 9:02 AM [facility] LAB Anion Gap 8 3 - 11 LAB CHEMISTRY METHOD 08/22/2024 9:02 AM [facility] LAB Glucose 116(H) 70 - 100 mg/dL LAB CHEMISTRY METHOD 08/22/2024 9:02 AM [facility] LAB BUN 47(H) 5 - 25 mg/dL LAB CHEMISTRY METHOD 08/22/2024 9:02 AM [facility] LAB Creatinine 3.05(H) 0.70 - 1.30 mg/dL LAB CHEMISTRY METHOD 08/22/2024 9:02 AM [facility] LAB eGFR 22(L) >=60 mL/min/1. 73m2 LAB CHEMISTRY METHOD 08/22/2024 9:02 AM [facility] LAB Comment:Calculation based on the Chronic Kidney Disease Epidemiology Collaboration (CKD-EPI) equation refit without adjustment for race. BUN/Creatinine Ratio 15.4 LAB CHEMISTRY METHOD 08/22/2024 9:02 AM [facility] LAB Calcium 8.8 8.5 - 10.5 mg/dL LAB CHEMISTRY METHOD 08/22/2024 9:02 AM [facility] LAB AST (SGOT) 13 10 - 42 unit/L LAB CHEMISTRY METHOD 08/22/2024 9:02 AM [facility] LAB ALT (SGPT) 19 10 - 60 unit/L LAB CHEMISTRY METHOD 08/22/2024 9:02 AM [facility] LAB Alkaline Phosphatase 80 42 - 121 unit/L LAB CHEMISTRY METHOD 08/22/2024 9:02 AM [facility] LAB Total Protein 6.4 6.0 - 8.0 g/dL LAB CHEMISTRY METHOD 08/22/2024 9:02 AM [facility] LAB Albumin 3.1(L) 3.2 - 5.0 g/dL LAB CHEMISTRY METHOD 08/22/2024 9:02 AM [facility] Total Bilirubin 0.4 0.0 - 1.4 mg/dL LAB CHEMISTRY METHOD 08/22/2024 9:02 AM EST [facility] LAB Blood Venous blood specimen / Unknown Venipuncture / Unknown 08/22/2024 5:16 AM EST 08/22/2024 7:22 AM EST us Travis Au MD LAB BLOOD ORDERABLES Final Resul t [facility] [address] [place] [address], documented in this encounter Visit Diagnoses Diagnosis Type 2 diabetes mellitus without complications (CMS/HCC V24, CMS/HCC V28) Unspecified atrial fibrillation (CMS/HCC V24, CMS/HCC V28) documented in this encounter Care Teams Firepot Operator And Tender Relationship Specialty Start Date End Date Travis Au MD [address] [place] [address], [phone] PCP - General Family Medicine 08/22/24 documented as of this encounter
--- OUTSIDE RECORDS SUMMARY | 2025-06-20 00:30 | XMS_ITS | Encounter Summary ---
Author Organization [facility] Address [address] [place] [address] Care Team Providers Care Side Piece Coverer Name Role Phone Travis Au MD Primary Care Provider [phone] Encounter Details Date Type Department Care Team (Late st Contact Info) Description 09/13/2024 Lab Requisition [facility] - Main Lab [address] [facility] [place] [address] Travis Au MD [address] [place] [address] [address] [facility] [phone] Chronic kidney disease, unspecified Social History Tobacco [...] unspecified documented in this encounter Care Teams Side Piece Coverer Relationship Specialty Start Date End Date Travis Au MD [address] [facility] 204 [facility] [phone] PCP - General Family Medicine 08/22/24 documented as of this encounter
--- OUTSIDE RECORDS SUMMARY | 2025-06-20 00:30 | XMS_ITS | Encounter Summary ---
Author Organization [facility] Address [address] [place] [address] Care Team Providers Care Vamp Cut Out Worker Name Role Phone Travis Au MD Primary Care Provider [phone] Encounter Details Date Type Department Care Team (Latest Contact Info) Description 10/25/2024 Lab Requisition [facility] - Main Lab [address] [facility] [place] [address] Brandon Mckeon MD [address] [place] [address] Type 2 diabetes mellitus without [...] V28) documented in this encounter Care Teams Vamp Cut Out Worker Relationship Specialty Start Date End Date Travis Au MD [address] [facility] [address] [place], [address] PCP - General Family Medicine 08/22/24 documented as of this encounter
--- OUTSIDE RECORDS SUMMARY | 2025-06-20 00:30 | XMS_ITS | Encounter Summary ---
Author Organization [facility] Address [address] [place] [address] Care Team Providers Care Newspaper Delivery Driver Name Role Phone Travis Au MD Primary Care Provider [phone] Encounter Details Date Type Department Care Team (Late st Contact Info) Description 10/03/2024 Lab Requisition [facility] - Main Lab [address] [facility] [place] [address] Brandon Mckeon MD [address] [place] [address] Hyperkalemia; Hypertensive urgency Social History [...] LAB CHEMISTRY METHOD 10/03/2024 9:47 AM EST [facility] Potassium 5.6(H) 3.5 - 5.5 mmol/L LAB CHEMISTRY METHOD 10/03/2024 9:47 AM [facility] LAB Chloride 109 96 - 110 mmol/L LAB CHEMISTRY METHOD 10/03/2024 9:47 AM [facility] LAB CO2 20(L) 21 - 32 mmol/L LAB CHEMISTRY METHOD 10/03/2024 9:47 AM [facility] LAB Anion Gap 6 3 - 11 LAB CHEMISTRY METHOD 10/03/2024 9:47 AM [facility] LAB Glucose 111(H) 70 - 100 mg/dL LAB CHEMISTRY METHOD 10/03/2024 9:47 AM [facility] LAB BUN 58(H) 5 - 25 mg/dL LAB CHEMISTRY METHOD 10/03/2024 9:47 AM [facility] LAB Creatinine 2.91(H) 0.70 - 1.30 mg/dL LAB CHEMISTRY METHOD 10/03/2024 9:47 AM [facility] LAB eGFR 23(L) >=60 mL/min/1. 73m2 LAB CHEMISTRY METHOD 10/03/2024 9:47 AM [facility] LAB Comment:Calculation based on the Chronic Kidney Disease Epidemiology Collaboration (CKD-EPI) equation refit without adjustment for race. BUN/Creatinine Ratio 19.9 LAB CHEMISTRY METHOD 10/03/2024 9:47 AM [facility] LAB Calcium 8.5 8.5 - 10.5 mg/dL LAB CHEMISTRY METHOD 10/03/2024 9:47 AM [facility] LAB AST (SGOT) 14 10 - 42 unit/L LAB CHEMISTRY METHOD 10/03/2024 9:47 AM [facility] ALT (SGPT) 20 10 - 60 unit/L LAB CHEMISTRY METHOD 10/03/2024 9:47 AM [facility] LAB Alkaline Phosphatase 57 42 - 121 unit/L LAB CHEMISTRY METHOD 10/03/2024 9:47 AM [facility] LAB Total Protein 6.5 6.0 - 8.0 g/dL LAB CHEMISTRY METHOD 10/03/2024 9:47 AM [facility] LAB Albumin 3.0(L) 3.2 - 5.0 g/dL LAB CHEMISTRY METHOD 10/03/2024 9:47 AM EST [facility] LAB Total Bilirubin 0.2 0.0 - 1.4 mg/dL LAB CHEMISTRY METHOD 10/03/2024 9:47 AM [facility] LAB Blood Venous blood specimen / Unknown Venipuncture / Unknown 10/03/2024 5:32 AM EST 10/03/2024 8:56 AM EST us Brandon Mckeon MD LAB BLOOD ORDERABLES Final Resu lt [facility] LAB [address] [place] [address], [place] [phone] * (ABNORMAL) Complete blood count (10/03/2024 5:32 AM EST) WBC 10.1 4.8 - 10.8 K/mcL LAB HEMETOLOGY METHOD 10/03/2024 9:20 AM [facility] LAB RBC 3.10(L) 4.50 - 5.50 M/mcL LAB HEMETOLOGY METHOD 10/03/2024 9:20 AM [facility] LAB Hemoglobin 9.3(L) 13.5 - 17.5 g/dL LAB HEMETOLOGY METHOD 10/03/2024 9:20 AM [facility] LAB Hematocrit 29.4(L) 42.0 - 54.0 % LAB HEMETOLOGY METHOD 10/03/2024 9:20 AM [facility] LAB MCV 95.8 79.0 - 98.0 FL LAB HEMETOLOGY METHOD 10/03/2024 9:20 AM [facility] LAB MCH 30.3 27.0 - 32.0 pcg LAB HEMETOLOGY METHOD 10/03/2024 9:20 AM [facility] LAB MCHC 31.6(L) 32.0 - 37.0 g/dL LAB HEMETOLOGY METHOD 10/03/2024 9:20 AM EST [facility] LAB RDW 13.7 11.0 - 15.0 % LAB HEMETOLOGY METHOD 10/03/2024 9:20 AM EST [facility] LAB Platelets 281 130 - 400 K/mcL LAB HEMETOLOGY METHOD 10/03/2024 9:20 AM EST [facility] LAB MPV 10.4 7.0 - 11.0 FL LAB HEMETOLOGY METHOD 10/03/2024 9:20 AM EST [facility] LAB NRBC 0.0 <1.0 % LAB HEMETOLOGY METHOD 10/03/2024 9:20 AM [facility] LAB NRBC Absolute 0.00 <0.10 K/mcL LAB HEMETOLOGY METHOD 10/03/2024 9:20 AM EST [facility] LAB Blood Venous blood specimen / Unknown Venipuncture / Unknown 10/03/2024 5:32 AM EST 10/03/2024 8:56 AM EST us Brandon Mckeon MD LAB BLOOD ORDERABLES Final Resu lt [facility] LAB [address] [place] [address], documented in this encounter Visit Diagnoses Diagnosis Hyperkalemia Hyperpotassemia Hypertensive urgency documented in this encounter Care Teams Newspaper Delivery Driver Relationship Specialty Start Date End Date Travis Au MD [address] [place] [address], [phone] PCP - General Family Medicine 08/22/24 documented as of this encounter
--- OUTSIDE RECORDS SUMMARY | 2025-06-20 00:30 | XMS_ITS | Clinical Summary ---
Author Organization [facility] Address [address] [facility] [address] [place] [address] Phone Care Team Providers Care Medical Assistant Name Role Phone Michelle Long MD Primary Care Provider [phone] Allergies Active Allergy Reactions Criticality Noted Date [...] Telephone [facility] [address] [place] [address] Sydney Rosales from Last 3 Months Family [...] to 48 Years) Discontinued 07/01/2010 Insurance [address] [place] [id number] [facility] ([id number]) MAHESH MACIAS [phone] [facility] Dual SNP ([id number]) Care Teams Medical Assistant Relationship Specialty Start Date End Date Michelle Long MD [address] [place], [place] PCP - General Internal Medicine 10/06/23
--- OUTSIDE RECORDS SUMMARY | 2025-06-20 00:30 | XMS_ITS | Encounter Summary ---
Author Organization [facility] Address [address] [place] [address] Care Team Providers Care Stopper Maker Helper Name Role Phone Travis Au MD Primary Care Provider [phone] Encounter Details Date Type Department Care Team (Late st Contact Info) Description 09/14/2024 Lab Requisition [facility] - Main Lab 299 [facility] [employer] [place] [address] Brandon Mckeon MD [address] [place] [address] Chronic kidney disease, unspecified Social [...] LAB CHEMISTRY METHOD 09/15/2024 9:37 AM EST [facility] LAB Potassium 5.3 3.5 - 5.5 mmol/L LAB CHEMISTRY METHOD 09/15/2024 9:37 AM EST [facility] LAB Chloride 110 96 - 110 mmol/L LAB CHEMISTRY METHOD 09/15/2024 9:37 AM [facility] LAB CO2 19(L) 21 - 32 mmol/L LAB CHEMISTRY METHOD 09/15/2024 9:37 AM [facility] LAB Anion Gap 9 3 - 11 LAB CHEMISTRY METHOD 09/15/2024 9:37 AM [facility] LAB Glucose 98 70 - 100 mg/dL LAB CHEMISTRY METHOD 09/15/2024 9:37 AM [facility] BUN 46(H) 5 - 25 mg/dL LAB CHEMISTRY METHOD 09/15/2024 9:37 AM [facility] Creatinine 3.02(H) 0.70 - 1.30 mg/dL LAB CHEMISTRY METHOD 09/15/2024 9:37 AM [facility] LAB eGFR 22(L) >=60 mL/min/1. 73m2 LAB CHEMISTRY METHOD 09/15/2024 9:37 AM [facility] LAB Comment:Calculation based on the Chronic Kidney Disease Epidemiology Collaboration (CKD-EPI) equation refit without adjustment for race. BUN/Creatinine Ratio 15.2 LAB CHEMISTRY METHOD 09/15/2024 9:37 AM [facility] LAB Calcium 8.8 8.5 - 10.5 mg/dL LAB CHEMISTRY METHOD 09/15/2024 9:37 AM [facility] LAB Blood Venous blood specimen / Unknown Venipuncture / Unknown 09/15/2024 4:53 AM EST 09/15/2024 9:01 AM EST us Brandon Mckeon MD LAB BLOOD ORDERABLES Final Resu lt [facility] LAB [address] [place] [address], [place] [phone] * (ABNORMAL) Complete blood count (09/15/2024 4:53 AM EST) WBC 9.2 4.8 - 10.8 K/mcL LAB HEMETOLOGY METHOD 09/15/2024 9:10 AM [facility] LAB RBC 3.00(L) 4.50 - 5.50 M/mcL LAB HEMETOLOGY METHOD 09/15/2024 9:10 AM [facility] Hemoglobin 8.9(L) 13.5 - 17.5 g/dL LAB HEMETOLOGY METHOD 09/15/2024 9:10 AM [facility] LAB Hematocrit 28.5(L) 42.0 - 54.0 % LAB HEMETOLOGY METHOD 09/15/2024 9:10 AM [facility] LAB MCV 95.6 79.0 - 98.0 FL LAB HEMETOLOGY METHOD 09/15/2024 9:10 AM [facility] LAB MCH 29.9 27.0 - 32.0 pcg LAB HEMETOLOGY METHOD 09/15/2024 9:10 AM [facility] LAB MCHC 31.2(L) 32.0 - 37.0 g/dL LAB HEMETOLOGY METHOD 09/15/2024 9:10 AM [facility] LAB RDW 13.8 11.0 - 15.0 % LAB HEMETOLOGY METHOD 09/15/2024 9:10 AM [facility] LAB Platelets 217 130 - 400 K/mcL LAB HEMETOLOGY METHOD 09/15/2024 9:10 AM [facility] MPV 11.0 7.0 - 11.0 FL LAB HEMETOLOGY METHOD 09/15/2024 9:10 AM [facility] NRBC 0.0 <1.0 % LAB HEMETOLOGY METHOD 09/15/2024 9:10 AM [facility] LAB NRBC Absolute 0.00 <0.10 K/mcL LAB HEMETOLOGY METHOD 09/15/2024 9:10 AM EST [facility] Blood Venous blood specimen / Unknown Venipuncture / Unknown 09/15/2024 4:53 AM EST 09/15/2024 9:01 AM EST us Brandon Mckeon MD LAB BLOOD ORDERABLES Final Resu lt [facility] LAB [address] [place] [address], documented in this encounter Visit Diagnoses Diagnosis Chronic kidney disease, unspecified documented in this encounter Care Teams Stopper Maker Helper Relationship Specialty Start Date End Date Travis Au MD [address] [place] [address], [phone] PCP - General Family Medicine 08/22/24 documented as of this encounter
--- OUTSIDE RECORDS SUMMARY | 2025-06-20 00:30 | XMS_ITS | Encounter Summary ---
Author Organization [facility] Address [address] [place] [address] Care Team Providers Care Hand Sewer Name Role Phone Travis Au MD Primary Care Provider [phone] Encounter Details Date Type Department Care Team (Late st Contact Info) Description 10/18/2024 Lab Requisition [facility] - Main Lab [address] [place] [address] Travis Au MD [address] [place] [address] [address] [place], [phone] Type 2 diabetes mellitus without complications [...] LAB CHEMISTRY METHOD 10/19/2024 8:44 AM EST [facility] Potassium 4.6 3.5 - 5.5 mmol/L LAB CHEMISTRY METHOD 10/19/2024 8:44 AM [facility] LAB Chloride 109 96 - 110 mmol/L LAB CHEMISTRY METHOD 10/19/2024 8:44 AM [facility] CO2 21 21 - 32 mmol/L LAB CHEMISTRY METHOD 10/19/2024 8:44 AM [facility] LAB Anion Gap 9 3 - 11 LAB CHEMISTRY METHOD 10/19/2024 8:44 AM [facility] Glucose 167(H) 70 - 100 mg/dL LAB CHEMISTRY METHOD 10/19/2024 8:44 AM [facility] BUN 61(H) 5 - 25 mg/dL LAB CHEMISTRY METHOD 10/19/2024 8:44 AM [facility] LAB Creatinine 3.42(H) 0.70 - 1.30 mg/dL LAB CHEMISTRY METHOD 10/19/2024 8:44 AM [facility] LAB eGFR 19(L) >=60 mL/min/1. 73m2 LAB CHEMISTRY METHOD 10/19/2024 8:44 AM [facility] LAB Comment:Calculation based on the Chronic Kidney Disease Epidemiology Collaboration (CKD-EPI) equation refit without adjustment for race. BUN/Creatinine Ratio 17.8 LAB CHEMISTRY METHOD 10/19/2024 8:44 AM [facility] Calcium 8.3(L) 8.5 - 10.5 mg/dL LAB CHEMISTRY METHOD 10/19/2024 8:44 AM [facility] LAB Blood Venous blood specimen / Unknown Venipuncture / Unknown 10/19/2024 5:45 AM EST 10/19/2024 8:08 AM EST us Travis Au MD LAB BLOOD ORDERABLES Final Resul t [facility] LAB [address] [place] [address], * (ABNORMAL) Complete blood count (10/19/2024 5:45 AM EST) [facility] WBC 10.6 4.8 - 10.8 K/mcL LAB HEMETOLOGY METHOD 10/19/2024 8:25 AM [facility] RBC 3.10(L) 4.50 - 5.50 M/mcL LAB HEMETOLOGY METHOD 10/19/2024 8:25 AM [facility] Hemoglobin 9.2(L) 13.5 - 17.5 g/dL LAB HEMETOLOGY METHOD 10/19/2024 8:25 AM [facility] LAB Hematocrit 28.5(L) 42.0 - 54.0 % LAB HEMETOLOGY METHOD 10/19/2024 8:25 AM [facility] MCV 92.2 79.0 - 98.0 FL LAB HEMETOLOGY METHOD 10/19/2024 8:25 AM [facility] MCH 29.8 27.0 - 32.0 pcg LAB HEMETOLOGY METHOD 10/19/2024 8:25 AM [facility] LAB MCHC 32.3 32.0 - 37.0 g/dL LAB HEMETOLOGY METHOD 10/19/2024 8:25 AM [facility] RDW 13.7 11.0 - 15.0 % LAB HEMETOLOGY METHOD 10/19/2024 8:25 AM [facility] LAB Platelets 221 130 - 400 K/mcL LAB HEMETOLOGY METHOD 10/19/2024 8:25 AM [facility] MPV 10.8 7.0 - 11.0 FL LAB HEMETOLOGY METHOD 10/19/2024 8:25 AM [facility] NRBC 0.0 <1.0 % LAB HEMETOLOGY METHOD 10/19/2024 8:25 AM [facility] NRBC Absolute 0.00 <0.10 K/mcL LAB HEMETOLOGY METHOD 10/19/2024 8:25 AM EST [facility] Blood Venous blood specimen / Unknown Venipuncture / Unknown 10/19/2024 5:45 AM EST 10/19/2024 8:08 AM EST us Travis Au MD LAB BLOOD ORDERABLES Final Resul t [facility] LAB [address] [place] [address], documented in this encounter Visit Diagnoses Diagnosis Type 2 diabetes mellitus without complications (CMS/HCC V24, CMS/HCC V28) documented in this encounter Care Teams Hand Sewer Relationship Specialty Start Date End Date Travis Au MD [address] [place] [address], [phone] PCP - General Family Medicine 08/22/24 documented as of this encounter
--- OUTSIDE RECORDS SUMMARY | 2025-06-20 00:30 | XMS_ITS | Encounter Summary ---
Author Organization [facility] Address [address] [place] [address] Care Team Providers Care Milk Pasteurizer Name Role Phone Travis Au MD Primary Care Provider [phone] Encounter Details Date Type Department Care Team (Latest Contact Info) Description 10/26/2024 Lab Requisition [facility] - Main Lab 299 [facility] [place] [address] Brandon Mckeon MD [address] [place] [address] Chronic kidney disease, unspecified; Type [...] LAB CHEMISTRY METHOD 10/27/2024 9:41 AM EST [facility] Potassium 5.6(H) 3.5 - 5.5 mmol/L LAB CHEMISTRY METHOD 10/27/2024 9:41 AM EST [facility] LAB Chloride 110 96 - 110 mmol/L LAB CHEMISTRY METHOD 10/27/2024 9:41 AM [facility] LAB CO2 19(L) 21 - 32 mmol/L LAB CHEMISTRY METHOD 10/27/2024 9:41 AM EST [facility] LAB Anion Gap 8 3 - 11 LAB CHEMISTRY METHOD 10/27/2024 9:41 AM [facility] LAB Glucose 92 70 - 100 mg/dL LAB CHEMISTRY METHOD 10/27/2024 9:41 AM [facility] BUN 55(H) 5 - 25 mg/dL LAB CHEMISTRY METHOD 10/27/2024 9:41 AM [facility] LAB Creatinine 3.72(H) 0.70 - 1.30 mg/dL LAB CHEMISTRY METHOD 10/27/2024 9:41 AM EST [facility] LAB eGFR 17(L) >=60 mL/min/1. 73m2 LAB CHEMISTRY METHOD 10/27/2024 9:41 AM EST [facility] LAB Comment:Calculation based on the Chronic Kidney Disease Epidemiology Collaboration (CKD-EPI) equation refit without adjustment for race. BUN/Creatinine Ratio 14.8 LAB CHEMISTRY METHOD 10/27/2024 9:41 AM EST [facility] Calcium 8.2(L) 8.5 - 10.5 mg/dL LAB CHEMISTRY METHOD 10/27/2024 9:41 AM [facility] LAB Blood Venous blood specimen / Unknown Venipuncture / Unknown 10/27/2024 6:57 AM EST 10/27/2024 8:20 AM EST us Brandon Mckeon MD LAB BLOOD ORDERABLES Final Resu lt [facility] [address] [place] [address], * (ABNORMAL) Complete blood count (10/27/2024 6:57 AM EST) [facility] WBC 10.0 4.8 - 10.8 K/mcL LAB HEMETOLOGY METHOD 10/27/2024 9:21 AM [facility] LAB RBC 2.90(L) 4.50 - 5.50 M/mcL LAB HEMETOLOGY METHOD 10/27/2024 9:21 AM [facility] LAB Hemoglobin 8.6(L) 13.5 - 17.5 g/dL LAB HEMETOLOGY METHOD 10/27/2024 9:21 AM [facility] LAB Hematocrit 28.1(L) 42.0 - 54.0 % LAB HEMETOLOGY METHOD 10/27/2024 9:21 AM [facility] LAB MCV 95.6 79.0 - 98.0 FL LAB HEMETOLOGY METHOD 10/27/2024 9:21 AM [facility] LAB MCH 29.3 27.0 - 32.0 pcg LAB HEMETOLOGY METHOD 10/27/2024 9:21 AM [facility] LAB MCHC 30.6(L) 32.0 - 37.0 g/dL LAB HEMETOLOGY METHOD 10/27/2024 9:21 AM [facility] LAB RDW 13.9 11.0 - 15.0 % LAB HEMETOLOGY METHOD 10/27/2024 9:21 AM [facility] LAB Platelets 354 130 - 400 K/mcL LAB HEMETOLOGY METHOD 10/27/2024 9:21 AM [facility] LAB MPV 10.1 7.0 - 11.0 FL LAB HEMETOLOGY METHOD 10/27/2024 9:21 AM [facility] LAB NRBC 0.0 <1.0 % LAB HEMETOLOGY METHOD 10/27/2024 9:21 AM [facility] LAB NRBC Absolute 0.00 <0.10 K/[facility] LAB HEMETOLOGY METHOD 10/27/2024 9:21 AM EST [facility] Blood Venous blood specimen / Unknown Venipuncture / Unknown 10/27/2024 6:57 AM EST 10/27/2024 8:20 AM EST us Brandon Mckeon MD LAB BLOOD ORDERABLES Final Resu lt [facility] [address] [place] [address], [place] [phone] documented in this encounter Visit Diagnoses Diagnosis Chronic kidney disease, unspecified Type 2 diabetes mellitus without complications (CMS/HCC V24, CMS/HCC V28) documented in this encounter Care Teams Milk Pasteurizer Relationship Specialty Start Date End Date Travis Au MD [address] [place] [phone] PCP - General Family Medicine 08/22/24 documented as of this encounter
--- OUTSIDE RECORDS SUMMARY | 2025-06-20 00:30 | XMS_ITS | Encounter Summary ---
Author Organization [facility] Address [address] [place] [address] Care Team Providers Care Police Officer Name Role Phone Travis Au MD Primary Care Provider [phone] Encounter Details Date Type Department Care Team (Latest Contact Info) Description 11/01/2024 Lab Requisition [facility] - Main Lab [address] [place] [address] Brandon Mckeon MD [address] [place] [address] Type 2 diabetes mellitus without [...] METHOD 11/02/2024 12:37 PM EST [facility] Potassium 5.1 3.5 - 5.5 mmol/L LAB CHEMISTRY METHOD 11/02/2024 12:37 PM [facility] Chloride 107 96 - 110 mmol/L LAB CHEMISTRY METHOD 11/02/2024 12:37 PM [facility] CO2 21 21 - 32 mmol/L LAB CHEMISTRY METHOD 11/02/2024 12:37 PM [facility] Anion Gap 6 3 - 11 LAB CHEMISTRY METHOD 11/02/2024 12:37 PM [facility] Glucose 93 70 - 100 mg/dL LAB CHEMISTRY METHOD 11/02/2024 12:37 PM [facility] BUN 54(H) 5 - 25 mg/dL LAB CHEMISTRY METHOD 11/02/2024 12:37 PM [facility] Creatinine 3.63(H) 0.70 - 1.30 mg/dL LAB CHEMISTRY METHOD 11/02/2024 12:37 PM [facility] LAB eGFR 18(L) >=60 mL/min/1. 73m2 LAB CHEMISTRY METHOD 11/02/2024 12:37 PM [facility] LAB Comment:Calculation based on the Chronic Kidney Disease Epidemiology Collaboration (CKD-EPI) equation refit without adjustment for race. BUN/Creatinine Ratio 14.9 LAB CHEMISTRY METHOD 11/02/2024 12:37 PM [facility] Calcium 8.5 8.5 - 10.5 mg/dL LAB CHEMISTRY METHOD 11/02/2024 12:37 PM [facility] Blood Venous blood specimen / Unknown Venipuncture / Unknown 11/02/2024 7:04 AM EST 11/02/2024 11:13 AM EST us Brandon Mckeon MD LAB BLOOD ORDERABLES Final Resu lt [facility] [address] [place] [address], [place] [phone] * (ABNORMAL) Complete blood count (11/02/2024 7:04 AM EST) [facility] WBC 8.5 4.8 - 10.8 K/mcL LAB HEMETOLOGY METHOD 11/02/2024 12:23 PM [facility] RBC 3.10(L) 4.50 - 5.50 M/mcL LAB HEMETOLOGY METHOD 11/02/2024 12:23 PM [facility] Hemoglobin 8.8(L) 13.5 - 17.5 g/dL LAB HEMETOLOGY METHOD 11/02/2024 12:23 PM [facility] Hematocrit 28.2(L) 42.0 - 54.0 % LAB HEMETOLOGY METHOD 11/02/2024 12:23 PM [facility] MCV 91.9 79.0 - 98.0 FL LAB HEMETOLOGY METHOD 11/02/2024 12:23 PM [facility] MCH 28.7 27.0 - 32.0 pcg LAB HEMETOLOGY METHOD 11/02/2024 12:23 PM [facility] MCHC 31.2(L) 32.0 - 37.0 g/dL LAB HEMETOLOGY METHOD 11/02/2024 12:23 PM [facility] RDW 13.6 11.0 - 15.0 % LAB HEMETOLOGY METHOD 11/02/2024 12:23 PM [facility] Platelets 382 130 - 400 K/mcL LAB HEMETOLOGY METHOD 11/02/2024 12:23 PM [facility] MPV 10.3 7.0 - 11.0 FL LAB HEMETOLOGY METHOD 11/02/2024 12:23 PM [facility] NRBC 0.0 <1.0 % LAB HEMETOLOGY METHOD 11/02/2024 12:23 PM [facility] NRBC Absolute 0.00 <0.10 K/mcL LAB HEMETOLOGY METHOD 11/02/2024 12:23 PM EST [facility] Blood Venous blood specimen / Unknown Venipuncture / Unknown 11/02/2024 7:04 AM EST 11/02/2024 11:13 AM EST us Brandon Mckeon MD LAB BLOOD ORDERABLES Final Resu lt [facility] [address] [place] [address], documented in this encounter Visit Diagnoses Diagnosis Type 2 diabetes mellitus without complications (CMS/HCC V24, CMS/HCC V28) documented in this encounter Care Teams Police Officer Relationship Specialty Start Date End Date Travis Au MD [address] [place] [address], [phone] PCP - General Family Medicine 08/22/24 documented as of this encounter
--- OUTSIDE RECORDS SUMMARY | 2025-06-20 00:31 | XMS_ITS | Clinical Summary ---
Author Organization [address] Address [address] [place] [phone] Phone Care Team Providers Care Customer Service Attendant Name Role Phone Travis Au MD Primary Care Provider [phone] Social History Tobacco Use Types Packs/Day Years [...] LAB CHEMISTRY METHOD 11/02/2024 12:37 PM EST [facility] Potassium 5.1 3.5 - 5.5 mmol/L LAB CHEMISTRY METHOD 11/02/2024 12:37 PM [facility] Chloride 107 96 - 110 mmol/L LAB CHEMISTRY METHOD 11/02/2024 12:37 PM [facility] CO2 21 21 - 32 mmol/L LAB CHEMISTRY METHOD 11/02/2024 12:37 PM [facility] Anion Gap 6 3 - 11 LAB CHEMISTRY METHOD 11/02/2024 12:37 PM [facility] Glucose 93 70 - 100 mg/dL LAB CHEMISTRY METHOD 11/02/2024 12:37 PM [facility] BUN 54(H) 5 - 25 mg/dL LAB CHEMISTRY METHOD 11/02/2024 12:37 PM [facility] Creatinine 3.63(H) 0.70 - 1.30 mg/dL LAB CHEMISTRY METHOD 11/02/2024 12:37 PM [facility] eGFR 18(L) >=60 mL/min/1. 73m2 LAB CHEMISTRY METHOD 11/02/2024 12:37 PM [facility] Comment:Calculation based on the Chronic Kidney Disease Epidemiology Collaboration (CKD-EPI) equation refit without adjustment for race. BUN/Creatinine Ratio 14.9 LAB CHEMISTRY METHOD 11/02/2024 12:37 PM [facility] Calcium 8.5 8.5 - 10.5 mg/dL LAB CHEMISTRY METHOD 11/02/2024 12:37 PM [facility] Blood Venous blood specimen / Unknown Venipuncture / Unknown 11/02/2024 7:04 AM EST 11/02/2024 11:13 AM EST us Brandon Mckeon MD LAB BLOOD ORDERABLES Final Resu lt [facility] [address] [place] [address], * Hemoglobin A1c (08/22/2024 5:16 AM EST) Hemoglobin A1C 6.4 <6.5 % LAB CHEMISTRY METHOD 08/23/2024 7:38 PM EST [facility] Mean Bld Glu Estim. 137 mg/dL LAB CHEMISTRY METHOD 08/23/2024 7:38 PM EST [facility] Blood Venous blood specimen / Unknown 08/22/2024 5:16 AM EST 08/22/2024 7:59 AM EST us Travis Au MD LAB BLOOD ORDERABLES Final Resul t [facility] ([facility]) [facility] [address] [place] [address], from Last 3 Months or Most Recently Relevant to Health Maintenance Insurance [facility] MEDIC[facility] Member Subscriber Plan / Payer (Ef fective 2024-Present) Name:Renato Hinson Relation to Subscriber:Self Name:Renato Hinson Payer ID:[id number] Group ID:[id number] Type:Not on file Address: [place] [address] [address] [address] Care Teams Customer Service Attendant Relationship Specialty Start Date End Date Travis Au MD [address] [facility] [address] [place], [address] PCP - General Family Medicine 08/22/24
--- OUTSIDE RECORDS SUMMARY | 2025-06-20 00:31 | XMS_ITS | Encounter Summary ---
Author Organization [facility], Address [address] [place] [address] Phone Care Team Providers Care Furnace And Wash Equipment Operator Name Role Phone Michelle Long MD Primary Care Provider [phone] Encounter Details Date Type Department Care Team (Late st Contact Info) Description 11/10/2023 Documentation Only [facility], [address] [place] [address] [place]y [place], [place] [address] [place] [address] Social History Tobacco Use Types [...] on filedocumented in this encounter Care Teams Furnace And Wash Equipment Operator Relationship Specialty Start Date End Date Michelle Long MD [address] [place], [place] PCP - General Internal Medicine 10/06/23 documented as of this encounter
--- OUTSIDE RECORDS SUMMARY | 2025-06-20 00:31 | XMS_ITS | Encounter Summary ---
Author Organization [facility] Address [address] [place] [address] Care Team Providers Care Client Support Administrator Name Role Phone Travis Au MD Primary Care Provider [phone] Encounter Details Date Type Department Care Team (Latest Contact Info) Description 11/29/2024 Lab Requisition [facility] - Main Lab [address] [facility] [place] [address] Brandon Mckeon MD [address] [place] [address] Type 2 diabetes mellitus without [...] V28) documented in this encounter Care Teams Client Support Administrator Relationship Specialty Start Date End Date Travis Au MD [address] [facility] [address] [place], [phone] PCP - General Family Medicine 08/22/24 documented as of this encounter
--- OUTSIDE RECORDS SUMMARY | 2025-06-20 00:31 | XMS_ITS | Encounter Summary ---
Author Organization [facility], Address [address] [place] [address] Phone Care Team Providers Care Door Hanger Name Role Phone Michelle Long MD Primary Care Provider [phone] Encounter Details Date Type Department Care Team (Late st Contact Info) Description 11/23/2024 Documentation Only [facility], [address] [place] [address] [place]y [place], [place] [address] [place] [address] Social History Tobacco Use Types [...] on filedocumented in this encounter Care Teams Door Hanger Relationship Specialty Start Date End Date Michelle Long MD [address] [place], [place] PCP - General Internal Medicine 10/06/23 documented as of this encounter
--- OUTSIDE RECORDS SUMMARY | 2025-06-20 00:31 | XMS_ITS | Encounter Summary ---
Author Organization [facility] Address [address] [place] [address] Care Team Providers Care Digital Associate Name Role Phone Travis Au MD Primary Care Provider [phone] Encounter Details Date Type Department Care Team (Late st Contact Info) Description 09/24/2024 Lab Requisition [facility] - Main Lab [address] [place] [address] Travis Au MD [address] [place] [address] [address] [place], [address] Chronic kidney disease, unspecified Social History [...] LAB CHEMISTRY METHOD 09/26/2024 10:13 AM EST [facility] Potassium 5.0 3.5 - 5.5 mmol/L LAB CHEMISTRY METHOD 09/26/2024 10:13 AM EST [facility] Chloride 107 96 - 110 mmol/L LAB CHEMISTRY METHOD 09/26/2024 10:13 AM [facility] CO2 20(L) 21 - 32 mmol/L LAB CHEMISTRY METHOD 09/26/2024 10:13 AM [facility] Anion Gap 8 3 - 11 LAB CHEMISTRY METHOD 09/26/2024 10:13 AM [facility] Glucose 169(H) 70 - 100 mg/dL LAB CHEMISTRY METHOD 09/26/2024 10:13 AM [facility] BUN 74(H) 5 - 25 mg/dL LAB CHEMISTRY METHOD 09/26/2024 10:13 AM [facility] Creatinine 3.72(H) 0.70 - 1.30 mg/dL LAB CHEMISTRY METHOD 09/26/2024 10:13 AM [facility] eGFR 17(L) >=60 mL/min/1. 73m2 LAB CHEMISTRY METHOD 09/26/2024 10:13 AM [facility] Comment:Calculation based on the Chronic Kidney Disease Epidemiology Collaboration (CKD-EPI) equation refit without adjustment for race. BUN/Creatinine Ratio 19.9 LAB CHEMISTRY METHOD 09/26/2024 10:13 AM [facility] Calcium 8.4(L) 8.5 - 10.5 mg/dL LAB CHEMISTRY METHOD 09/26/2024 10:13 AM [facility] Blood Venous blood specimen / Unknown Venipuncture / Unknown 09/26/2024 5:22 AM EST 09/26/2024 9:31 AM EST us Travis Au MD LAB BLOOD ORDERABLES Final Resul t [facility] [address] [place] [address], * (ABNORMAL) Complete blood count (09/26/2024 5:22 AM EST) WBC 12.6(H) 4.8 - 10.8 K/mcL LAB HEMETOLOGY METHOD 09/26/2024 9:44 AM [facility] RBC 2.90(L) 4.50 - 5.50 M/mcL LAB HEMETOLOGY METHOD 09/26/2024 9:44 AM [facility] Hemoglobin 8.6(L) 13.5 - 17.5 g/dL LAB HEMETOLOGY METHOD 09/26/2024 9:44 AM [facility] Hematocrit 26.7(L) 42.0 - 54.0 % LAB HEMETOLOGY METHOD 09/26/2024 9:44 AM [facility] MCV 93.0 79.0 - 98.0 FL LAB HEMETOLOGY METHOD 09/26/2024 9:44 AM [facility] MCH 30.0 27.0 - 32.0 pcg LAB HEMETOLOGY METHOD 09/26/2024 9:44 AM [facility] MCHC 32.2 32.0 - 37.0 g/dL LAB HEMETOLOGY METHOD 09/26/2024 9:44 AM [facility] RDW 12.9 11.0 - 15.0 % LAB HEMETOLOGY METHOD 09/26/2024 9:44 AM [facility] Platelets 289 130 - 400 K/mcL LAB HEMETOLOGY METHOD 09/26/2024 9:44 AM [facility] MPV 10.6 7.0 - 11.0 FL LAB HEMETOLOGY METHOD 09/26/2024 9:44 AM [facility] NRBC 0.0 <1.0 % LAB HEMETOLOGY METHOD 09/26/2024 9:44 AM [facility] NRBC Absolute 0.00 <0.10 K/mcL LAB HEMETOLOGY METHOD 09/26/2024 9:44 AM [facility] Blood Venous blood specimen / Unknown Venipuncture / Unknown 09/26/2024 5:22 AM EST 09/26/2024 9:31 AM EST us Travis Au MD LAB BLOOD ORDERABLES Final Resul t [facility] ([facility]) [facility] [address] [place] [address], documented in this encounter Visit Diagnoses Diagnosis Chronic kidney disease, unspecified documented in this encounter Care Teams Digital Associate Relationship Specialty Start Date End Date Travis Au MD [address] [place] [phone] PCP - General Family Medicine 08/22/24 documented as of this encounter
--- OUTSIDE RECORDS SUMMARY | 2025-06-20 00:31 | XMS_ITS | Encounter Summary ---
Author Organization [facility], Address [address] [place] [address] Phone Care Team Providers Care Oysterman Name Role Phone Michelle Long MD Primary Care Provider [phone] Reason for Visit * Reason Comments Med Refill Encounter Details Date Type Department Care Team (Late st Contact Info) Description 01/01/2025 Refill [facility], [address] [place] [address] Phill Mc MD [address] [facility] [place] [phone] Social History Tobacco Use Types Packs/Day Years [...] on filedocumented in this encounter Care Teams Oysterman Relationship Specialty Start Date End Date Michelle Long MD [address] [place] [address] PCP - General Internal Medicine 10/06/23 documented as of this encounter
--- OUTSIDE RECORDS SUMMARY | 2025-06-20 00:31 | XMS_ITS ---
Author Organization [facility] Care Team Providers Care Toy Trains And Accessories Salesperson Name Role Phone Samantha Petersen Unavailable Unavailable Pavan Bianchi Unavailable Unavailable Steve Sanderson Unavailable Unavailable Allergies and adverse reactions Code CodeSystem Substance Reaction Severity StartDate Concern Status 7052 RXNORM Morphine Unknown 02/06/2024 active 45025 RXNORM buPROPion Unknown 02/06/2024 active Care Team Name Role Address Phone Organization Dates Steve Sanderson PCP [address] [address], [place], [address], [place] (Office): : [facility] 02/06/2024 - 02/18/2024 Samantha Petersen [address] [place], [address], [place] (Office): : [facility] 02/06/2024 - 02/18/2024 Pavan Bianchi [address] [facility] [address], [place], [address], [place] (Office): [facility] 02/06/2024 - 02/18/2024 Immunizations Immunization Status Vaccine Details Vaccine Code CodeSystem Anish e Notes Influenza completed Influenza, high-dose, split virus, quadrivalent, injectable, preservative free 197 CVX created date: 02/08/2024 administered date: 09/04/2023 Comirnaty (pfizer) COVID19 SAM148 completed SARS-COV-2 (COVID-19) vaccine, mRNA, spike protein, LNP, preservative free, 30 mcg/0.3mL dose, margarita-sucrose formulation 217 CVX created date: 02/08/2024 administered date: 06/26/2023 Mental Status Section Date Assessment Total Score Description 02/18/2024 BIMS 15 cognitively int act CAM 0 No delirium ind icated PHQ-9 00 02/09/2024 BIMS 13 cognitively int act CAM 0 No delirium ind icated PHQ-9 00 Problems Problem # Description Date of onset Resolved Date Code CodeSystem Concern Status 1 LATENT TUBERCULOSIS 02/08/2024 22328335 SNOMED C T active 2 ACQUIRED ABSENCE OF OTHER TOE(S), UNSPECIFIED SIDE 02/06/[address] active 3 ACUTE KIDNEY FAILURE, UNSPECIFIED 02/06/[address] active 4 BENIGN PROSTATIC HYPERPLASIA WITHOUT LOWER URINARY TRACT SYMPTOMS 02/06/[address] active 5 CHRONIC KIDNEY DISEASE, UNSPECIFIED 02/06/[address] active 6 CHRONIC VIRAL HEPATITIS C 02/06/[address] active 7 DISPLACED MIDCERVICAL FRACTURE OF LEFT FEMUR, INITIAL ENCOUNTER FOR CLOSED FRACTURE 02/06/[address] active 8 ENCOUNTER FOR OTHER ORTHOPEDIC AFTERCARE 02/06/[address] active 9 FOLLICULAR CYST OF THE SKIN AND SUBCUTANEOUS TISSUE, UNSPECIFIED 02/06/[address] active 10 HYPERKALEMIA 02/06/[address] activ e 11 HYPERTENSIVE RETINOPATHY, BILATERAL 02/06/[address] active 12 OBSTRUCTIVE SLEEP APNEA (ADULT) (PEDIATRIC) 02/06/[address] active 13 OTHER LACK OF COORDINATION 02/06/[address] active 14 PERIPHERAL VASCULAR DISEASE, UNSPECIFIED 02/06/[address] active 15 PERSONAL HISTORY OF TRANSIENT ISCHEMIC ATTACK (TIA), AND CEREBRAL INFARCTION WITHOUT RESIDUAL DEFICITS 02/06/[address] active 16 TYPE 2 DIABETES MELLITUS WITH DIABETIC NEUROPATHY, UNSPECIFIED 02/06/[address] active 17 UNSPECIFIED INTRACAPSULAR FRACTURE OF LEFT FEMUR, INITIAL ENCOUNTER FOR CLOSED FRACTURE 02/06/2024200941798578 SNOMED CT active Reason for Referral No Reasons for Referral Entered Social History Social History Observation Description Start Date End Date Code Code System Current Smoking Status Tobacco smoking consumption unknown 801626029 SNOMED CT Sex Assigned At Male 1960 [address]4790-1 [facility] Gender Identity Sexual Orientation Vital Signs Code Code System Vitals Name Values and Units Timing Information 9279-1 [facility] Respiratory Rate Value=18.0 Units=/m in 02/18/2024 8462-4 [facility] Blood Pressure-Diastolic Value=88 Un its=mmHg 02/18/2024 8480-6 [facility] Blood Pressure-Systolic Rlsro=772 Un its=mmHg 02/18/2024 8310-5 [facility] Body Temperature Value=98.6 Units= F 02/18/2024 8867-4 [facility] Heart rate Value=63.0 Units=/min 19036-3 [facility] O2 % BldC Oximetry Value=93.0 Units= % 02/18/2024 04733-6 [facility] Pain Level Value=0.0 02/18/2024 2339-0 [facility] Blood Sugar Yfkms=069.0 Units=mg/dL 02/10/2024 8302-2 [facility] Height Value=72.0 Units=Inches 02/08/2024 03980-8 [facility] Weight Jssca=848.0 Units=Lbs 02/2024
--- NOTE | 2025-06-20 00:34 | MHC.EDTECH ---
@0034 PATIENT HARD STICK. FLASH CAME WITH BUTTERFLY NEEDLE, SLOW DRAW.
--- NOTE | 2025-06-20 00:47 | ED.GENADULT ---
HPI - General Adult General Chief complaint: General Medical Stated complaint: bleeding catheter Time Seen by Provider: 06/19/25 23:43 Source: patient Mode of arrival: ambulatory Limitations: no limitations History of Present Illness ED Provider: Dr. Castillo HPI narrative: 65-year-old male history of ESRD Thursday dialysis, CHF, hypertension, diabetes, osteomyelitis in the past, currently on Xarelto for anticoagulation presented hospital today for evaluation of bleeding from his dialysis catheter. The patient has a tunnel catheter on her right side of his upper chest. Patient stated that started bleeding earlier today. He had received dialysis through without any issues in the past. He is currently on Xarelto still. Related Data Home Medications ?Medication ?Instructions ?Recorded ?Confirmed aspirin 81 mg chewable tablet 1 tab PO DAILY 12/19/24 06/08/25 dapagliflozin propanediol 10 mg 10 mg PO DAILY 12/19/24 06/08/25 tablet (Farxiga) finasteride 5 mg tablet 5 mg PO DAILY 12/19/24 06/08/25 metoprolol succinate 100 mg 100 mg PO DAILY 12/19/24 06/08/25 tablet,extended release 24 hr tamsulosin 0.4 mg capsule 0.4 mg PO DAILY 12/19/24 06/08/25 umeclidinium 62.5 mcg/actuation 1 inh inhalation DAILY 12/19/24 06/08/25 blister powder for inhalation (Incruse Ellipta) hydralazine 25 mg tablet 50 mg PO TID PRN Hypertension 12/30/24 06/08/25 rivaroxaban 2.5 mg tablet (Xarelto) 2.5 mg PO BID 12/30/24 06/08/25 atorvastatin 10 mg tablet 10 mg PO DAILY 05/26/25 06/08/25 insulin lispro 100 unit/mL See Protocol subcut QIDACHS PRN 05/26/25 06/08/25 subcutaneous pen (Humalog KwikPen Hypoglycemia (U-100) Insulin) Previous Rx's ?Medication ?Instructions ?Recorded blood sugar diagnostic (FreeStyle #100 ea 03/02/25 Lite Strips) blood-glucose meter (FreeStyle #1 ea 03/02/25 Lite Meter kit) lancets 28 gauge (FreeStyle #100 ea 03/02/25 Lancets) pen needle, diabetic 32 gauge x #100 ea 03/02/25 1/ furosemide 40 mg tablet 80 mg PO BID@0900,1800 #180 tabs 06/14/25 linezolid 600 mg tablet 600 mg PO Q12H #40 tabs 06/14/25 lisinopril 2.5 mg tablet 2.5 mg PO DAILY@1645 #90 tabs 06/14/25 Allergies Allergy/AdvReac Type Severity Reaction Status Date / Time morphine Allergy Hallucinati Verified 06/19/25 23:39 ons bupropion AdvReac Hallucinati Verified 06/19/25 23:39 ons Review of Systems Review of Systems: Pertinent review of systems as mentioned in HPI. All other system otherwise negative. [facility] Past Medical History [facility] Narrative: Past medical history Medical History Chronic kidney disease (CKD), stage 5 Metabolic acidosis CKD (chronic kidney disease) stage 5, GFR less than 15 ml/min Anemia in chronic kidney disease (CKD) Hypertension CKD (chronic kidney disease) stage 4, GFR 15-29 ml/min Fluid overload Acute and chronic respiratory failure Sepsis Acute dehydration New onset of congestive heart failure Pneumonia Urinary urgency Urinary tract infection Urinary hesitancy Tubular adenoma of colon Smoker Seborrheic keratoses SND (sensorineural deafness) Right BKA infection Peripheral vascular disease WENDY (obstructive sleep apnea) Microalbuminuria Lung nodule seen on imaging study Lightheadedness Latent tuberculosis LVH (left ventricular hypertrophy) Abnormal PFTs Hyponatremia Hypertensive retinopathy of both eyes Hyperkalemia Hepatitis C Hearing loss of both ears Erectile dysfunction Cataract CKD (chronic kidney disease) Bladder wall thickening BPH (benign prostatic hyperplasia) Anticoagulated Anemia Peripheral neuropathy Diabetes mellitus, type II CVA (cerebral vascular accident) Adrenal nodule Kidney cysts Surgical History Hx of right BKA Family History Family History Brother Diabetes Mother Diabetes Father Diabetes Social History Social History Household Members: Spouse Household Members Other:: ex- Housing: Apartment Do you presently have visiting nurse or other home services: Yes Alcohol intake: never Patient Tobacco Use Status: Former Tobacco user Tobacco use type: Cigarette Smoked in Last 30 Days: No e-Cigarette/Vaping Use: Former Use Use of substances other than those prescribed or required for medical reasons: No Advance Directives: Yes Advance Directives on File: Yes Advance Directives Date on File: 06/19/25 Do you have a plan to hurt others: No Plan service: No Physical Exam ED Exam Exam: General: Pleasant, no distress, interacting appropriately, blood noticed in the right upper chest Head: Normacephalic, atraumatic ENT: oral mucosa moist, neck supple, no tracheal deviation Cardiovascular: regular rate, regular rhythm, no murmurs, rubbing, gallops, dialysis catheter inside however the gauze appears to be soaked in bright blood we will clot appreciated on exam. Respiratory: CTAB, no wheeze, rales, rhonchi Gastrointestinal: Soft, non distended, non tender, non guarding Extremities: No limb pain or swelling, no calf tenderness Neurological: Awake and alert, no facial droop noted Skin: Warm and dry Psychiatric: Appropriate mood and thoughts Vital Signs: Vital Signs - 24 hr 06/19/25 23:35 Temperature 98.2 F Pulse Rate 100 Respiratory Rate 16 Blood Pressure 150/48 H Oxygen Delivery Method Room Air BMI result Body Mass Index 19.7 Medications Administered Discontinued Medications Generic Name Dose Route Start Last Admin Trade Name Freq PRN Reason Stop Dose Admin Tranexamic Acid 1,000 mg/ 60 mls @ 360 mls/hr 06/19/25 23:58 06/20/25 02:07 Sodium Chloride IRRIGATION 06/20/25 00:07 Infused ONCE ONE Infusion Tranexamic Acid 1,000 mg/ 60 mls @ 360 mls/hr 06/20/25 01:35 06/20/25 02:18 Sodium Chloride IV 06/20/25 01:44 Infused ONCE ONE Infusion Desmopressin Acetate 20 mcg/ 55 mls @ 100 mls/hr 06/20/25 02:53 06/20/25 04:11 Sodium Chloride IV 06/20/25 03:25 Infused ONCE ONE Infusion Iohexol 65 ml 06/20/25 01:08 06/20/25 01:08 Iohexol 350 Mg/Ml 100 Ml Infus..Btl IV 06/20/25 01:09 65 ml ONCE ONE Administration Medical Decision Making Medical Decision Making MDM Narrative: This is a 65-year-old male history of ESRD with a tunneled dialysis catheter in the right upper chest presented hospital today for hemorrhage from the dialysis catheter. On exam patient appears to be actively bleeding. I did clean the catheter to get a better assessment of where the bleeding is coming from. Hydrogen peroxide was used to clear up some of the blood clot the fluid in the catheter appears to be clear. I do not think is from the catheter. The catheter is capped off. However on further assessment it appears that the catheter was bleeding from around the entry site. It appears to be a slow ooze likely venous in nature. CT chest with IV contrast will be obtained. Direct pressure was applied over the area. We did attempt to place TXA soaked gauze over the area without any alleviation of the bleeding. We did place some pressure dressing over the site as well. I did discuss with the patient about the risk of giving him some medicine that will help with the clotting. Patient understands. Discussed with him that we will need to do our best to stop this bleeding at this time. 1 g of IV TXA will be given patient. I did discuss the case with vascular surgeon Dr. Yin . Who recommends giving the patient some Karsten present and placing a sandbag over pressure dressing. Surgicel will be added to the dressing at this time. Basic lab work will be obtained hemoglobin level is appropriate 8.2. This is similar to his previous hemoglobin level in the past. Patient will be signed out to oncoming provider Dr. Chavez pending reassessment of the bleeding from the catheter for final disposition. 7:00 AM 06/20/2025 (Dr. Antonia Chavez, D.O.) patient is no longer bleeding. Catheter site is dry. There is a lot of blood that is dried around the dialysis catheter ports but no active bleeding at this time. I am going to leave the dried blood where it is until he is seen at dialysis tomorrow. I have discussed this with the patient who understands that it will look bloody but it is not actively bleeding. I have wrapped it with Kerlix gauze and instructed him to return to the hospital if it continues to bleed or he notices more blood on the gauze. Using shared decision making, plan for discharge home to follow-up with regulation supervisor and vascular surgery. Patient understands and agrees with plan for discharge. Discharged home in stable condition. Differential Diagnosis Differential Diagnoses: The differential diagnosis associated with the presentation includes Bleeding from dialysis catheter, dialysis catheter dysfunction, hemorrhagic shock, anemia Admission/Observation Consideration of admission/observation: Escalation of care including admission/observation considered Consult Healthcare Provider Management of the patient was discussed with: Operations And Maintenance Technician (Dr. Yin (vascular)) Lab Data MDM Lab Attestation statement: I reviewed the patient's lab results. 06/20/25 01:24 Labs: Lab Results 06/20/25 Range/Units 01:24 WBC 9.1 (4.8-10.8) X10*3/uL RBC 2.75 L (4.60-5.80) X10*6/uL Hgb 8.2 L (14.0-18.0) g/dl Hct 24.6 L (42.0-52.0) % MCV 89.5 (80.0-98.0) fL MCH 29.8 (27.0-33.0) pg MCHC 33.3 (31.0-36.0) g/dl RDW 15.9 (11.0-16.0) % Plt Count 212 D (160-400) X10*3/uL MPV 10.4 (9.4-12.4) fL Immature Gran % (Auto) 0.4 (0.0-0.4) % Neut % (Auto) 67.4 (45-73) % Lymph % (Auto) 18.9 L (20-40) % Knox % (Auto) 9.3 (2-11) % Eos % (Auto) 2.8 (0-4) % Baso % (Auto) 1.2 (0-2) % Lymph # (Auto) 1.7 (1.2-4.9) X10*3/uL Knox # (Auto) 0.8 (0.1-1.2) X10*3/uL Eos # (Auto) 0.3 (0.0-0.4) X10*3/uL Baso # (Auto) 0.1 (0.0-0.2) X10*3/uL Abs Immat Gran (auto) 0.04 H (0.00-0.03) X10*3/uL Absolute Neuts (auto) 6.1 (2.0-8.3) x10*3/uL Absolute Nucleated RBC 0.000 (0.0-0.012) X10*3/uL Nucleated RBC % (auto) 0.0 (0.0-0.2) /100WBC PT 11.2 (10.9-12.4) SEC INR 1.0 (0.9-1.1) APTT 28.0 (26.7-34.1) SEC Blood Type A Negative Antibody Screen NEGATIVE Independent Interpretation I performed an independent interpretation of an: CT Scan Radiology Impression Discussion of test interpretation with radiology: I have reviewed the radiologist's reading. External Record Review External record reviewed: Inpatient record Chronic Conditions Patient?s care impacted by: Other (ESRD on dialysis) ESRD, anticoagulation Critical Care Time Critical Care Time Critical Care Time: Yes Total Critical Care Time: 40 Attestation: Time is exclusive of separately billable procedures. Time includes: direct patient care, patient reassessment, coordination of patient care, interpretation of data (laboratory data, pulse oximetry, arterial blood gases and chest xrays), review of patient's medical records, medical consultation and documentation of patient care. Procedures excluded from critical care time: central intravenous line placement and electrocardiography. Discharge Plan Discharge Clinical Impression: Hemorrhage from dialysis catheter Patient Disposition: Home, Self-Care Additional Instructions: Be sure to follow up at dialysis tomorrow. Return to the ER sooner if your catheter continues to bleed. Keep the dialysis catheter clean and dry until you have dialysis tomorrow. Prescriptions: No Action atorvastatin 10 mg tablet 10 mg PO DAILY insulin lispro [Humalog KwikPen Insulin] 100 unit/mL insulin pen See Protocol SUBCUT QIDACHS PRN (Reason: Hypoglycemia) Protocol: Insulin Correction Scale Less than or equal to 110 ---- Give (units): 0 111 to 150 Give (units): 0 151 to 200 Give (units): 2 201 to 250 Give (units): 4 251 to 300 Give (units): 6 301 to 350 Give (units): 8 Greater than 350 Give (units): 10 Call MD if Blood Glucose > : 350 linezolid 600 mg Tablet 600 mg PO Q12H Qty: 40 0RF furosemide 40 mg Tablet 80 mg PO BID@0900,1800 Qty: 180 0RF Protocol: Hold for SBP< HOLD for SBP < : 90 lisinopril 2.5 mg Tablet 2.5 mg PO DAILY@1645 Qty: 90 0RF Protocol: Hold for SBP< HOLD for SBP < : 90 (DME) FreeStyle Lite Strips Strip Qty: 100 0RF Rx Instructions: Test four times a day or as directed. (DME) blood-glucose meter [FreeStyle Lite Meter] Kit Qty: 1 0RF Rx Instructions: As Directed (DME) pen needle, diabetic 32 gauge x 1/4 needle Qty: 100 0RF Rx Instructions: Use four times a day or as directed. (DME) lancets [FreeStyle Lancets] 28 gauge misc Qty: 100 0RF Rx Instructions: Test four times a day or as directed. dapagliflozin propanediol [Farxiga] 10 mg tablet 10 mg PO DAILY finasteride 5 mg tablet 5 mg PO DAILY tamsulosin 0.4 mg capsule 0.4 mg PO DAILY metoprolol succinate 100 mg tablet extended release 24 hr 100 mg PO DAILY aspirin 81 mg tablet,chewable 1 tab PO DAILY Incruse Ellipta 62.5 mcg/actuation blister with device 1 inh inhalation DAILY Xarelto 2.5 mg tablet 2.5 mg PO BID hydralazine 25 mg tablet 50 mg PO TID PRN (Reason: Hypertension) Print Language: Sinhala
[2025-06-20] MEDS: iohexoL 350 MG/ML 100 ML INFUS..BTL 65 ML IV (01:08)
[2025-06-20 01:29] LABS: MANUAL DIFF FLAG NO
[2025-06-20 01:30] LABS: Hematocrit 24.6 % (42.0-52.0); Hemoglobin 8.2 g/dl (14.0-18.0); Imm Gran Abs Auto 0.04 X10*3/uL (0.00-0.03); Imm Gran Pct Auto 0.4 % (0.0-0.4); Lymphocytes Absolute Auto 1.7 X10*3/uL (1.2-4.9); Mean Corpuscular HGB Conc 33.3 g/dl (31.0-36.0); Mean Corpuscular Hemoglobin 29.8 pg (27.0-33.0); Mean Corpuscular Volume 89.5 fL (80.0-98.0); NRBC Abs Auto 0.000 X10*3/uL (0.0-0.012); NRBC Pct Auto 0.0 /100WBC (0.0-0.2); Platelet Count 212 X10*3/uL (160-400); Red Blood Count 2.75 X10*6/uL (4.60-5.80); White Blood Count 9.1 X10*3/uL (4.8-10.8)
[2025-06-20 01:37] LABS: INTERNATIONAL NORM RATIO 1.0 (0.9-1.1); Prothrombin Time 11.2 SEC (10.9-12.4)
[2025-06-20 01:40] LABS: Partial Thromboplastin Time 28.0 SEC (26.7-34.1)
--- NOTE | 2025-06-20 01:56 | PC.NURSE ---
per provider verbal order, gauze soaked in TKA and pressure dressing applied. provider was unable to place such order.
[2025-06-20] MEDS: Tranexamic Acid 1,000 MG in 0.9 % Sodium Chloride 50 ML 360 MG IV (02:07)
--- NOTE | 2025-06-20 03:14 | PC.NURSE ---
Port site continues to bleed. Provider aware. Sand bag ordered awaiting medications from nursing supervisor concrete stone finishing
[2025-06-20 07:04] VITALS: BP 192/66; PULSE 82
[2025-06-20 09:53] VITALS: BP 192/66; PULSE 82; RESP 18; TEMP 36.6; O2SAT 98
--- NOTE | 2025-06-20 09:54 | PC.NURSE ---
call placed to [facility] x 2 and no one answered the phone on the 2nd floor
--- NOTE | 2025-06-20 09:55 | PC.NURSE ---
full report to ems and told to tell rn to call for report if needed
== END 2025-06-20 09:55 | disposition home or self-care (01) ==
PROVIDERS: Student in an Organized Health Care Education/Training Program; Emergency Provider Emergency Medicine
DX: T82.838A Hemorrhage due to vascular prosthetic devices, implants and grafts, initial encounter (principal); Y82.8 Other medical devices associated with adverse incidents; Y92.9 Unspecified place or not applicable; E11.22 Type 2 diabetes mellitus with diabetic chronic kidney disease; I13.2 Hypertensive heart and chronic kidney disease with heart failure and with stage 5 chronic kidney disease, or end stage renal disease; I50.9 Heart failure, unspecified; N18.6 End stage renal disease; Z99.2 Dependence on renal dialysis; Z79.899 Other long term (current) drug therapy; Z79.01 Long term (current) use of anticoagulants
CPT/HCPCS: 36415; 71260; 85025; 85610; 85730; 86850; 86900; 86901; 96365; 96366; 96367; 99284; 99285; J2597; Q9967

== ENCOUNTER → 2025-06-20 | Outpatient (BNV) | payer OTHER, SELFPAY | PROVIDERS: Emergency Provider Emergency Medicine; Visit Provider Radiology Diagnostic Radiology | DX: J90 Pleural effusion, not elsewhere classified (principal); Z95.9 Presence of cardiac and vascular implant and graft, unspecified | CPT/HCPCS: 71260 ==

== ENCOUNTER → 2025-07-05 23:59 | Outpatient (BNV) | payer OTHER, SELFPAY | PROVIDERS: PCP Internal Medicine; Visit Provider Internal Medicine Nephrology | DX: N18.6 End stage renal disease (principal) | CPT/HCPCS: 90962 ==

== ENCOUNTER → 2025-07-11 07:25 | Outpatient (REF) | payer OTHER, SELFPAY ==
--- NOTE | ~2025-07-11 | NM_ITS ---
Lexiscan Myocardial perfusion study Indication: New LV systolic dysfunction with congestive heart failure Technique: The patient was brought in for a Lexiscan perfusion study on 07/11/2025 and was injected 0.4 mg of Lexiscan intravenously. Within a minute of this injection 25 mCi of sestamibi was given intravenously. Images were obtained using the SPECT gamma camera interlaced with the gating device. Images were obtained in supine position. Resting perfusion study was performed on 07/13/2025. Patient was administered 25 mCi of sestamibi intravenously at rest. Images were then obtained in supine position. Images obtained without without CT attenuation. Total DLP 75 mGy-cm. Images were processed with the software and compared side to side in short axis, horizontal long axis and vertical long axis views. Findings: Both attenuated as well as nonattenuated images show on raw tomographic images show intense subdiaphragmatic uptake interfering with inferior wall uptake in equal proportions The stress perfusion study showed both nonattenuated as well as attenuated corrected images show diffusely reduced uptake in all segments of the LV myocardium, moderate intensity to severely reduced uptake in the apical wall.. The gated study shows severely reduced LV systolic function with calculated LVEF of 32%. LV cavity is severely dilated in size. The gated study shows diffusely reduced wall thickening and contraction of segments. Resting study shows both attenuated as well as nonattenuated corrected images show normal uptake in all segments of the LV myocardium. Gating at rest reveals diffusely reduced wall motion with ejection fraction at 30%. The findings are consistent with findings are suggestive of severe global ischemia in all 3 vessel distribution, technical under correction [likely. NM/NM cardiolite stress test Impression: 1. Myocardial perfusion imaging study shows global moderate to severe ischemia and three-vessel distribution 2. Gated LVEF is 32% 3. Transient ischemic dilatation present with LV cavity is dilated at rest as well Nondiagnostic changes on EKG. Electronically signed by: Herbie Lerma MD 07/14/2025 04:24 PM EDT
--- OUTSIDE RECORDS SUMMARY | 2025-07-11 07:28 | XMS_ITS | Encounter Summary ---
Author Organization [facility] Address [address] [place] [address] Care Team Providers Care M1A1 Tank Crewman Name Role Phone Travis Au MD Primary Care Provider [phone] Encounter Details Date Type Department Care Team (Late st Contact Info) Description 07/10/[address] [facility] - Main Lab [address] [facility] [place] [address] Donell Ruiz MD [address] [facility] [address] [place] [address] Anemia in other chronic diseases classified elsewhere Social History Tobacco Use Types Packs/Day Years [...] Procedure Name Priority Date/Time Associated Diagnosis Comments HEMOGLOBIN STAT 07/10/2025 6:00 AM EDT Anemia in other chronic diseases classified elsewhere documented in this encounter Results * (ABNORMAL) Hemoglobin (07/10/2025 6:00 AM EDT) Hemoglobin 7.4(L) 13.5 - 17.5 g/dL LAB HEMETOLOGY METHOD 07/10/2025 7:31 AM EDT [facility] Blood Venous blood specimen / Unknown 07/10/2025 6:00 AM EDT 07/10/2025 7:25 AM EDT Donell Ruiz MD LAB BLOOD ORDERABLES Final Resul t [facility] [address] [place] [address], documented in this encounter Visit Diagnoses Diagnosis Anemia in other chronic diseases classified elsewhere documented in this encounter Care Teams M1A1 Tank Crewman Relationship Specialty Start Date End Date Travis Au MD [address] [place] [address], [phone] PCP - General Family Medicine 08/22/24 documented as of this encounter
--- OUTSIDE RECORDS SUMMARY | 2025-07-11 07:28 | XMS_ITS | Encounter Summary ---
Author Organization [facility] Address [address] [place] [address] Care Team Providers Care Commercial Driver Name Role Phone Travis Au MD Primary Care Provider [phone] Encounter Details Date Type Department Care Team (Latest Contact Info) Description 10/25/2024 Lab Requisition [facility] - Main Lab 299 [facility] [place] [address] Brandon Mckeon MD [address] [place] [address] Type 2 diabetes mellitus without [...] V28) documented in this encounter Care Teams Commercial Driver Relationship Specialty Start Date End Date Travis Au MD [address] [facility] [address] [place], [phone] PCP - General Family Medicine 08/22/24 documented as of this encounter
--- OUTSIDE RECORDS SUMMARY | 2025-07-11 07:28 | XMS_ITS | Encounter Summary ---
Author Organization [facility] Address [address] [place] [address] Care Team Providers Care Tool Room Supervisor Name Role Phone Travis Au MD Primary Care Provider [phone] Encounter Details Date Type Department Care Team (Late st Contact Info) Description 07/08/2025 Lab Requisition [facility] - Main Lab [address] [facility] [place] [address] Donell Ruiz MD [address] [facility] [address] [place] [address] Anemia in other chronic diseases [...] Priority Date/Time Associated Diagnosis Comments HEMOGLOBIN STAT 07/08/2025 6:30 AM EDT Anemia in other chronic diseases classified elsewhere documented in this encounter Results * (ABNORMAL) Hemoglobin (07/08/2025 6:30 AM EDT) Hemoglobin 6.6(L) 13.5 - 17.5 g/dL LAB HEMETOLOGY METHOD 07/08/2025 8:50 AM EDT [facility] LAB Blood Venous blood specimen / Unknown 07/08/2025 6:30 AM EDT 07/08/2025 8:45 AM EDT Donell Ruiz MD LAB BLOOD ORDERABLES Final Resul t [facility] LAB [address] [place] [address], documented in this encounter Visit Diagnoses Diagnosis Anemia in other chronic diseases classified elsewhere documented in this encounter Care Teams Tool Room Supervisor Relationship Specialty Start Date End Date Travis Au MD [address] [place] [address], [phone] PCP - General Family Medicine 08/22/24 documented as of this encounter
--- OUTSIDE RECORDS SUMMARY | 2025-07-11 07:28 | XMS_ITS | Encounter Summary ---
Author Organization [facility] Address [address] [place] [address] Care Team Providers Care Lead Teller Name Role Phone Travis Au MD Primary Care Provider [phone] Encounter Details Date Type Department Care Team (Late st Contact Info) Description 08/22/2024 Lab Requisition [facility] - Main Lab 299 [facility] [place] [address] Travis Au MD [address] [place] [address] [facility] [phone] Type 2 diabetes mellitus [...] AM EST) [facility] [address] Hemoglobin A1C 6.4 <6.5 % LAB CHEMISTRY METHOD 08/23/2024 7:38 PM EST [facility] LAB Mean Bld Glu Estim. 137 mg/dL LAB CHEMISTRY METHOD 08/23/2024 7:38 PM EST [facility] LAB Blood Venous blood specimen / Unknown 08/22/2024 5:16 AM EST 08/22/2024 7:59 AM EST us Travis Au MD LAB BLOOD ORDERABLES Final Resul t [facility] LAB [address] [place] [address], [place] [phone] * (ABNORMAL) CBC auto differential (08/22/2024 5:16 AM EST) [facility] [address] WBC 7.0 4.8 - 10.8 K/mcL LAB HEMETOLOGY METHOD 08/22/2024 8:13 AM [facility] LAB RBC 3.30(L) 4.50 - 5.50 M/mcL LAB HEMETOLOGY METHOD 08/22/2024 8:13 AM [facility] [...] LAB HEMETOLOGY METHOD 08/22/2024 8:13 AM EST [facility] LAB Lymphocytes Absolute 1.71 1.00 - 5.00 K/[facility] LAB HEMETOLOGY METHOD 08/22/2024 8:13 AM EST [facility] LAB Monocytes Absolute 0.41 0.20 - 1.00 K/[facility] LAB HEMETOLOGY METHOD 08/22/2024 8:13 AM EST [facility] LAB Eosinophils Absolute 0.46 0.00 - 0.50 [facility] LAB HEMETOLOGY METHOD 08/22/2024 8:13 AM EST [facility] LAB Basophils Absolute 0.09 0.00 - 0.20 K/[facility] LAB HEMETOLOGY METHOD 08/22/2024 8:13 AM [facility] LAB Immature Granulocytes Absolute 0.03 0.00 - 0.03 K/[facility] LAB HEMETOLOGY METHOD 08/22/2024 8:13 AM EST [facility] LAB Blood Venous blood specimen / Unknown Venipuncture / Unknown 08/22/2024 5:16 AM EST 08/22/2024 7:22 AM EST us Travis Au MD LAB BLOOD ORDERABLES Final Resul t [facility] LAB [address] [place] [address], * (ABNORMAL) Comprehensive metabolic panel (08/22/2024 5:16 AM EST) Sodium 139 133 - 145 mmol/L LAB CHEMISTRY METHOD 08/22/2024 9:02 AM EST [facility] LAB Potassium 4.2 3.5 - 5.5 mmol/L [...] [facility] Comment:Calculation based on the Chronic [...] g/dL LAB CHEMISTRY METHOD 08/22/2024 9:02 AM [facility] Total Bilirubin 0.4 0.0 - 1.4 mg/dL LAB CHEMISTRY METHOD 08/22/2024 9:02 AM EST [facility] LAB Blood Venous blood specimen / Unknown Venipuncture / Unknown 08/22/2024 5:16 AM EST 08/22/2024 7:22 AM EST us Travis Au MD LAB BLOOD ORDERABLES Final Resul t [facility] [address] [place] [address], documented in this encounter Visit Diagnoses Diagnosis Type 2 diabetes mellitus without complications (CMS/HCC V24, CMS/HCC V28) Unspecified atrial fibrillation (CMS/HCC V24, CMS/HCC V28) documented in this encounter Care Teams Lead Teller Relationship Specialty Start Date End Date Travis Au MD [address] [place] [address], [phone] PCP - General Family Medicine 08/22/24 documented as of this encounter
--- OUTSIDE RECORDS SUMMARY | 2025-07-11 07:28 | XMS_ITS | Encounter Summary ---
Author Organization [facility] Address [address] [place] [address] Care Team Providers Care Latin American Studies Director Name Role Phone Travis Au MD Primary Care Provider [phone] Encounter Details Date Type Department Care Team (Late st Contact Info) Description 09/13/2024 Lab Requisition [facility] - Main Lab 299 [facility] [place] [address] Travis Au MD [address] [place] [address] 204 [facility] [phone] Chronic kidney disease, unspecified Social History Tobacco [...] unspecified documented in this encounter Care Teams Latin American Studies Director Relationship Specialty Start Date End Date Travis Au MD [address] [facility] [address] [place], [phone] PCP - General Family Medicine 08/22/24 documented as of this encounter
--- OUTSIDE RECORDS SUMMARY | 2025-07-11 07:28 | XMS_ITS | Encounter Summary ---
Author Organization [facility] Address [address] [place] [address] Care Team Providers Care Business Process Manager Name Role Phone Travis Au MD Primary Care Provider [phone] Encounter Details Date Type Department Care Team (Latest Contact Info) Description 10/26/2024 Lab Requisition [facility] - Main Lab 299 [facility] [place] [address] Brandon Mckeon MD [address] [place] [address] Chronic kidney disease, unspecified; Type [...] LAB CHEMISTRY METHOD 10/27/2024 9:41 AM EST [facility] Potassium 5.6(H) 3.5 - 5.5 mmol/L LAB CHEMISTRY METHOD 10/27/2024 9:41 AM [facility] LAB Chloride 110 96 - 110 mmol/L LAB CHEMISTRY METHOD 10/27/2024 9:41 AM [facility] LAB CO2 19(L) 21 - 32 mmol/L LAB CHEMISTRY METHOD 10/27/2024 9:41 AM [facility] LAB Anion Gap 8 3 - 11 LAB CHEMISTRY METHOD 10/27/2024 9:41 AM [facility] LAB Glucose 92 70 - 100 mg/dL LAB CHEMISTRY METHOD 10/27/2024 9:41 AM [facility] LAB BUN 55(H) 5 - 25 mg/dL LAB CHEMISTRY METHOD 10/27/2024 9:41 AM [facility] LAB Creatinine 3.72(H) 0.70 - 1.30 mg/dL LAB CHEMISTRY METHOD 10/27/2024 9:41 AM [facility] LAB eGFR 17(L) >=60 mL/min/1. 73m2 LAB CHEMISTRY METHOD 10/27/2024 9:41 AM [facility] LAB Comment:Calculation based on the Chronic Kidney Disease Epidemiology Collaboration (CKD-EPI) equation refit without adjustment for race. BUN/Creatinine Ratio 14.8 LAB CHEMISTRY METHOD 10/27/2024 9:41 AM [facility] LAB Calcium 8.2(L) 8.5 - 10.5 mg/dL LAB CHEMISTRY METHOD 10/27/2024 9:41 AM [facility] LAB Blood Venous blood specimen / Unknown Venipuncture / Unknown 10/27/2024 6:57 AM EST 10/27/2024 8:20 AM EST us Brandon Mckeon MD LAB BLOOD ORDERABLES Final Resu lt [facility] LAB [address] [place] [address], * (ABNORMAL) Complete blood count (10/27/2024 6:57 AM EST) [facility] WBC 10.0 4.8 - 10.8 K/mcL LAB HEMETOLOGY METHOD 10/27/2024 9:21 AM [facility] LAB RBC 2.90(L) 4.50 - 5.50 M/mcL LAB HEMETOLOGY METHOD 10/27/2024 9:21 AM [facility] LAB Hemoglobin 8.6(L) 13.5 - 17.5 g/dL LAB HEMETOLOGY METHOD 10/27/2024 9:21 AM [facility] LAB Hematocrit 28.1(L) 42.0 - 54.0 % LAB HEMETOLOGY METHOD 10/27/2024 9:21 AM [facility] LAB MCV 95.6 79.0 - 98.0 FL LAB HEMETOLOGY METHOD 10/27/2024 9:21 AM [facility] LAB MCH 29.3 27.0 - 32.0 pcg LAB HEMETOLOGY METHOD 10/27/2024 9:21 AM [facility] LAB MCHC 30.6(L) 32.0 - 37.0 g/dL LAB HEMETOLOGY METHOD 10/27/2024 9:21 AM [facility] LAB RDW 13.9 11.0 - 15.0 % LAB HEMETOLOGY METHOD 10/27/2024 9:21 AM [facility] LAB Platelets 354 130 - 400 K/mcL LAB HEMETOLOGY METHOD 10/27/2024 9:21 AM [facility] LAB MPV 10.1 7.0 - 11.0 FL LAB HEMETOLOGY METHOD 10/27/2024 9:21 AM [facility] LAB NRBC 0.0 <1.0 % LAB HEMETOLOGY METHOD 10/27/2024 9:21 AM [facility] LAB NRBC Absolute 0.00 <0.10 K/mcL LAB HEMETOLOGY METHOD 10/27/2024 9:21 AM EST [facility] LAB Blood Venous blood specimen / Unknown Venipuncture / Unknown 10/27/2024 6:57 AM EST 10/27/2024 8:20 AM EST us Brandon Mckeon MD LAB BLOOD ORDERABLES Final Resu lt [facility] LAB [address] [place] [address], [place] [phone] documented in this encounter Visit Diagnoses Diagnosis Chronic kidney disease, unspecified Type 2 diabetes mellitus without complications (CMS/HCC V24, CMS/HCC V28) documented in this encounter Care Teams Business Process Manager Relationship Specialty Start Date End Date Travis Au MD [address] [place] [phone] PCP - General Family Medicine 08/22/24 documented as of this encounter
--- OUTSIDE RECORDS SUMMARY | 2025-07-11 07:28 | XMS_ITS | Encounter Summary ---
Author Organization [facility] Address [address] [place] [address] Care Team Providers Care Signal Repairer Name Role Phone Travis Au MD Primary Care Provider [phone] Encounter Details Date Type Department Care Team (Late st Contact Info) Description 10/18/2024 Lab Requisition [facility] - Main Lab [address] [place] [address] Travis Au MD [address] [place] [address] 204 [facility] [address] Type 2 diabetes mellitus without complications [...] LAB CHEMISTRY METHOD 10/19/2024 8:44 AM EST [facility] Potassium 4.6 3.5 - 5.5 mmol/L LAB CHEMISTRY METHOD 10/19/2024 8:44 AM [facility] LAB Chloride 109 96 - 110 mmol/L LAB CHEMISTRY METHOD 10/19/2024 8:44 AM [facility] LAB CO2 21 21 - 32 mmol/L LAB CHEMISTRY METHOD 10/19/2024 8:44 AM [facility] LAB Anion Gap 9 3 - 11 LAB CHEMISTRY METHOD 10/19/2024 8:44 AM [facility] LAB Glucose 167(H) 70 - 100 mg/dL LAB CHEMISTRY METHOD 10/19/2024 8:44 AM [facility] LAB BUN 61(H) 5 - 25 mg/dL LAB CHEMISTRY METHOD 10/19/2024 8:44 AM [facility] LAB Creatinine 3.42(H) 0.70 - 1.30 mg/dL LAB CHEMISTRY METHOD 10/19/2024 8:44 AM [facility] LAB eGFR 19(L) >=60 mL/min/1. 73m2 LAB CHEMISTRY METHOD 10/19/2024 8:44 AM [facility] LAB Comment:Calculation based on the Chronic Kidney Disease Epidemiology Collaboration (CKD-EPI) equation refit without adjustment for race. BUN/Creatinine Ratio 17.8 LAB CHEMISTRY METHOD 10/19/2024 8:44 AM [facility] LAB Calcium 8.3(L) 8.5 - 10.5 mg/dL LAB CHEMISTRY METHOD 10/19/2024 8:44 AM [facility] LAB Blood Venous blood specimen / Unknown Venipuncture / Unknown 10/19/2024 5:45 AM EST 10/19/2024 8:08 AM EST us Travis Au MD LAB BLOOD ORDERABLES Final Resul t [facility] [address] [place] [address], * (ABNORMAL) Complete blood count (10/19/2024 5:45 AM EST) [facility] WBC 10.6 4.8 - 10.8 K/mcL LAB HEMETOLOGY METHOD 10/19/2024 8:25 AM [facility] LAB RBC 3.10(L) 4.50 - 5.50 M/mcL LAB HEMETOLOGY METHOD 10/19/2024 8:25 AM [facility] LAB Hemoglobin 9.2(L) 13.5 - 17.5 g/dL LAB HEMETOLOGY METHOD 10/19/2024 8:25 AM [facility] LAB Hematocrit 28.5(L) 42.0 - 54.0 % LAB HEMETOLOGY METHOD 10/19/2024 8:25 AM [facility] LAB MCV 92.2 79.0 - 98.0 FL LAB HEMETOLOGY METHOD 10/19/2024 8:25 AM [facility] LAB MCH 29.8 27.0 - 32.0 pcg LAB HEMETOLOGY METHOD 10/19/2024 8:25 AM [facility] LAB MCHC 32.3 32.0 - 37.0 g/dL LAB HEMETOLOGY METHOD 10/19/2024 8:25 AM [facility] LAB RDW 13.7 11.0 - 15.0 % LAB HEMETOLOGY METHOD 10/19/2024 8:25 AM [facility] LAB Platelets 221 130 - 400 K/mcL LAB HEMETOLOGY METHOD 10/19/2024 8:25 AM [facility] LAB MPV 10.8 7.0 - 11.0 FL LAB HEMETOLOGY METHOD 10/19/2024 8:25 AM [facility] LAB NRBC 0.0 <1.0 % LAB HEMETOLOGY METHOD 10/19/2024 8:25 AM [facility] LAB NRBC Absolute 0.00 <0.10 K/mcL LAB HEMETOLOGY METHOD 10/19/2024 8:25 AM EST [facility] Blood Venous blood specimen / Unknown Venipuncture / Unknown 10/19/2024 5:45 AM EST 10/19/2024 8:08 AM EST us Travis Au MD LAB BLOOD ORDERABLES Final Resul t [facility] [address] [place] [address], documented in this encounter Visit Diagnoses Diagnosis Type 2 diabetes mellitus without complications (CMS/HCC V24, CMS/HCC V28) documented in this encounter Care Teams Signal Repairer Relationship Specialty Start Date End Date Travis Au MD [address] [place] [address], [phone] PCP - General Family Medicine 08/22/24 documented as of this encounter
--- OUTSIDE RECORDS SUMMARY | 2025-07-11 07:28 | XMS_ITS | Clinical Summary ---
Author Organization 299 [facility] Address [address] [place] [address] Phone Care Team Providers Care Administrative Hearing Officer Name Role Phone Travis Au MD Primary Care Provider [phone] Encounters Date Type Department Care Team Description 07/10/2025 Lab Requisition [facility] Lab [address] [place] [phone] Donell Ruiz MD Anemia in other chronic diseases classified elsewhere 07/08/2025 Lab Requisition [facility] Lab [address] [place] [phone] Donell Ruiz MD Anemia in other chronic diseases classified elsewhere from Last 3 Months Social History Tobacco Use Types Packs/Day Years Used Date Smoking Tobacco: Never Assessed Sex and Gender Information Value Date Recorded Sex Assigned at Not on file Legal Sex Male 9:08 PM EST Gender Identity Not on file Sexual Orientation Not on file Plan of Treatment Health Maintenance Due Date Last Done Comments Colorectal Cancer Screening: Colonoscopy 1959 Diabetes: Annual Foot Exam 1969 Diabetes: Annual Retina Eye Exam 1969 Hepatitis A Vaccines (1 of 2 - Risk 2-dose series) 1978 Zoster Vaccines (1 of 2) 2009 Pneumococcal Vaccine: 50+ Years (2 of 2 - PCV) 07/01/2011 07/01/2010 RSV Immunization Adult Patients (1 - Risk 60-74 years 1-dose series) 2019 Abdominal Aortic Aneurysm (AAA) Screen 10/30/2023 Cholesterol Screening (Lipid Panel) 10/30/2023 Hepatitis C Screening 10/30/2023 Medicare Annual [...] Anemia in other chronic diseases classified elsewhere HEMOGLOBIN STAT 07/08/2025 6:30 AM EDT Anemia in other chronic diseases classified elsewhere BASIC METABOLIC PANEL Routine 11/02/2024 7:04 AM EST Type 2 diabetes mellitus without complications (CMS/HCC) HEMOGLOBIN A1C Routine 08/22/2024 5:16 AM EST Type 2 diabetes mellitus without complications (CMS/HCC) Unspecified atrial fibrillation (CMS/HCC) from Last 3 Months or Most Recently Relevant to Health Maintenance Results * (ABNORMAL) Hemoglobin (07/10/2025 6:00 AM EDT) Only the most recent of2 resultswithin the time period is included. Hemoglobin 7.4(L) 13.5 - 17.5 g/dL LAB HEMETOLOGY METHOD 07/10/2025 7:[address] [facility] Blood Venous blood specimen / Unknown 07/10/2025 6:00 AM EDT 07/10/2025 7:25 AM EDT us Donell Ruiz MD LAB BLOOD ORDERABLES Final Resul t [facility] [address] [place] [address], * (ABNORMAL) Basic metabolic panel (11/02/2024 7:04 AM EST) Sodium 134 133 - 145 mmol/L LAB CHEMISTRY METHOD 11/02/2024 12:[address] [facility] Potassium 5.1 3.5 - 5.5 mmol/L LAB CHEMISTRY METHOD 11/02/2024 12:[address] [facility] Chloride 107 96 - 110 mmol/L LAB CHEMISTRY METHOD 11/02/2024 12:[address] [facility] CO2 21 21 - 32 mmol/L LAB CHEMISTRY METHOD 11/02/2024 12:[address] [facility] Anion Gap 6 [...] MD LAB BLOOD ORDERABLES Final Resu lt [facility] [address] [place] [address], * Hemoglobin A1c (08/22/2024 5:16 AM EST) Hemoglobin A1C 6.4 <6.5 % LAB CHEMISTRY METHOD 08/23/2024 7:38 PM [facility] Mean Bld Glu Estim. 137 mg/dL LAB CHEMISTRY METHOD 08/23/2024 7:38 PM [facility] Blood Venous blood specimen / Unknown 08/22/2024 5:16 AM EST 08/22/2024 7:59 AM EST us Travis Au MD LAB BLOOD ORDERABLES Final Resul t [facility] [place] [facility] LAB [address] [place] [address], [place] [phone] from Last 3 Months or Most Recently Relevant to Health Maintenance Insurance [facility] Member Subscriber Plan / Payer (Ef fective 2024-Present) Name:SIRI HINSON Relation to Subscriber:Self Name:Siri Hinson Payer ID:[id number] Group ID:[id number] Type:Not on file Address: [place] [address] [address] [address] Care Teams Administrative Hearing Officer Relationship Specialty Start Date End Date Travis Au MD 38 [facility] [address] [place], [phone] PCP - General Family Medicine 08/22/24
--- OUTSIDE RECORDS SUMMARY | 2025-07-11 07:28 | XMS_ITS | Encounter Summary ---
Author Organization [facility] Address [address] [place] [address] Care Team Providers Care Checker And Packer Name Role Phone Travis Au MD Primary Care Provider [phone] Encounter Details Date Type Department Care Team (Late st Contact Info) Description 09/14/2024 Lab Requisition [facility] - Main Lab [address] [facility] [address] Brandon Mckeon MD [address] [place] [address] Chronic kidney disease, unspecified Social [...] LAB CHEMISTRY METHOD 09/15/2024 9:37 AM EST [facility] Potassium 5.3 3.5 - 5.5 mmol/L LAB CHEMISTRY METHOD 09/15/2024 9:37 AM EST [facility] Chloride 110 96 - 110 mmol/L LAB CHEMISTRY METHOD 09/15/2024 9:37 AM EST [facility] CO2 19(L) 21 - 32 mmol/L LAB CHEMISTRY METHOD 09/15/2024 9:37 AM [facility] Anion Gap 9 3 - 11 LAB CHEMISTRY METHOD 09/15/2024 9:37 AM [facility] Glucose 98 70 - 100 mg/dL LAB CHEMISTRY METHOD 09/15/2024 9:37 AM [facility] BUN 46(H) 5 - 25 mg/dL LAB CHEMISTRY METHOD 09/15/2024 9:37 AM [facility] Creatinine 3.02(H) 0.70 - 1.30 mg/dL LAB CHEMISTRY METHOD 09/15/2024 9:37 AM [facility] eGFR 22(L) >=60 mL/min/1. 73m2 LAB CHEMISTRY METHOD 09/15/2024 9:37 AM EST [facility] Comment:Calculation based on the Chronic Kidney Disease Epidemiology Collaboration (CKD-EPI) equation refit without adjustment for race. BUN/Creatinine Ratio 15.2 LAB CHEMISTRY METHOD 09/15/2024 9:37 AM [facility] Calcium 8.8 8.5 - 10.5 mg/dL LAB CHEMISTRY METHOD 09/15/2024 9:37 AM [facility] Blood Venous blood specimen / Unknown Venipuncture / Unknown 09/15/2024 4:53 AM EST 09/15/2024 9:01 AM EST us Brandon Mckeon MD LAB BLOOD ORDERABLES Final Resu lt [facility] [address] [place] [address], [place] [phone] * (ABNORMAL) Complete blood count (09/15/2024 4:53 AM EST) WBC 9.2 4.8 - 10.8 K/mcL LAB HEMETOLOGY METHOD 09/15/2024 9:10 AM [facility] RBC 3.00(L) 4.50 - 5.50 M/mcL LAB HEMETOLOGY METHOD 09/15/2024 9:10 AM [facility] Hemoglobin 8.9(L) 13.5 - 17.5 g/dL LAB HEMETOLOGY METHOD 09/15/2024 9:10 AM [facility] Hematocrit 28.5(L) 42.0 - 54.0 % LAB HEMETOLOGY METHOD 09/15/2024 9:10 AM [facility] MCV 95.6 79.0 - 98.0 FL LAB HEMETOLOGY METHOD 09/15/2024 9:10 AM [facility] MCH 29.9 27.0 - 32.0 pcg LAB HEMETOLOGY METHOD 09/15/2024 9:10 AM [facility] MCHC 31.2(L) 32.0 - 37.0 g/dL LAB HEMETOLOGY METHOD 09/15/2024 9:10 AM [facility] RDW 13.8 11.0 - 15.0 % LAB HEMETOLOGY METHOD 09/15/2024 9:10 AM [facility] Platelets 217 130 - 400 K/mcL LAB HEMETOLOGY METHOD 09/15/2024 9:10 AM [facility] MPV 11.0 7.0 - 11.0 FL LAB HEMETOLOGY METHOD 09/15/2024 9:10 AM [facility] NRBC 0.0 <1.0 % LAB HEMETOLOGY METHOD 09/15/2024 9:10 AM [facility] NRBC Absolute 0.00 <0.10 K/mcL LAB HEMETOLOGY METHOD 09/15/2024 9:10 AM [facility] Blood Venous blood specimen / Unknown Venipuncture / Unknown 09/15/2024 4:53 AM EST 09/15/2024 9:01 AM EST Brandon Mckeon MD LAB BLOOD ORDERABLES Final Resu lt [facility] ([facility] [address] [place] [address], documented in this encounter Visit Diagnoses Diagnosis Chronic kidney disease, unspecified documented in this encounter Care Teams Checker And Packer Relationship Specialty Start Date End Date Travis Au MD [address] [place] [phone] PCP - General Family Medicine 08/22/24 documented as of this encounter
--- OUTSIDE RECORDS SUMMARY | 2025-07-11 07:28 | XMS_ITS | Encounter Summary ---
Author Organization [facility] Address [address] [place] [address] Care Team Providers Care Compound Coating Machine Offbearer Name Role Phone Travis Au MD Primary Care Provider [phone] Encounter Details Date Type Department Care Team (Late st Contact Info) Description 09/24/2024 Lab Requisition [facility] - Main Lab [address] [place] [address] Travis Au MD [address] [place] [address] [address] [facility] [address] Chronic kidney disease, unspecified Social History [...] LAB CHEMISTRY METHOD 09/26/2024 10:13 AM EST [facility] Potassium 5.0 3.5 - 5.5 mmol/L LAB CHEMISTRY METHOD 09/26/2024 10:13 AM EST [facility] Chloride 107 96 - 110 [...] Final Resul t [facility] [address] [place] [address], * (ABNORMAL) Complete blood count (09/26/2024 5:22 AM EST) [facility] WBC 12.6(H) 4.8 - 10.8 K/mcL LAB [...] LAB BLOOD ORDERABLES Final Resul t [facility] ([facility]) [facility] [address] [place] [address], documented in this encounter Visit Diagnoses Diagnosis Chronic kidney disease, unspecified documented in this encounter Care Teams Compound Coating Machine Offbearer Relationship Specialty Start Date End Date Travis Au MD [address] [place] [address], [phone] PCP - General Family Medicine 08/22/24 documented as of this encounter
--- OUTSIDE RECORDS SUMMARY | 2025-07-11 07:28 | XMS_ITS | Encounter Summary ---
Author Organization [facility] Address [address] [place] [address] Care Team Providers Care Sports Nutritionist Name Role Phone Travis Au MD Primary Care Provider [phone] Encounter Details Date Type Department Care Team (Latest Contact Info) Description 11/01/2024 Lab Requisition [facility] - Main Lab [address] [place] [address] Brandon Mckeon MD [address] [place] [address] Type 2 diabetes mellitus without [...] LAB CHEMISTRY METHOD 11/02/2024 12:37 PM EST [facility] Potassium 5.1 3.5 - 5.5 [...] Resu lt [facility] [address] [place] [address], * (ABNORMAL) Complete blood count (11/02/2024 7:04 AM EST) [facility] Signature WBC 8.5 4.8 - 10.8 K/mcL LAB [...] LAB HEMETOLOGY METHOD 11/02/2024 12:23 PM EST [facility] Blood Venous blood specimen / Unknown Venipuncture / Unknown 11/02/2024 7:04 AM EST 11/02/2024 11:13 AM EST us Brandon Mckeon MD LAB BLOOD ORDERABLES Final Resu lt [facility] [address] [place] [address], documented in this encounter Visit Diagnoses Diagnosis Type 2 diabetes mellitus without complications (CMS/HCC V24, CMS/HCC V28) documented in this encounter Care Teams Sports Nutritionist Relationship Specialty Start Date End Date Travis Au MD [address] [place] [address], [phone] PCP - General Family Medicine 08/22/24 documented as of this encounter
--- OUTSIDE RECORDS SUMMARY | 2025-07-11 07:28 | XMS_ITS | Encounter Summary ---
Author Organization [facility], Address [address] [place] [address] Phone Care Team Providers Care Barge Pilot Name Role Phone Michelle Long MD Primary Care Provider [phone] Reason for Visit * Reason Comments Med Refill Encounter Details Date Type Department Care Team (Late st Contact Info) Description 01/01/2025 Refill [facility], [address] [place] [address] Phill Mc MD [address] [place] [phone] Social History Tobacco Use Types Packs/Day Years [...] on filedocumented in this encounter Care Teams Barge Pilot Relationship Specialty Start Date End Date Michelle Long MD [address] [place] [address] PCP - General Internal Medicine 10/06/23 documented as of this encounter
--- OUTSIDE RECORDS SUMMARY | 2025-07-11 07:28 | XMS_ITS | Clinical Summary ---
Author Organization [facility] Address [address] [facility] [address] [place] [address] Phone Care Team Providers Care Audio Video Tech Name Role Phone Michelle Long MD Primary Care Provider [phone] Allergies Active Allergy Reactions Criticality Noted Date [...] 05/08/2021 05/08/2021 Latent tuberculosis 05/08/2021 05/08/20 21 Family History Medical History Relation Comments Diabetes [...] (6 to 49 Years) Discontinued 07/01/2010 Insurance [facility] MCR ([id number]) MAHESH MACIAS [id number] [facility] Dual SNP ([id number]) MAHESH MACIAS [phone] Care Teams Audio Video Tech Relationship Specialty Start Date End Date Michelle Long MD [address] [place], [place] PCP - General Internal Medicine 10/06/23
--- OUTSIDE RECORDS SUMMARY | 2025-07-11 07:28 | XMS_ITS | Encounter Summary ---
Author Organization [facility] Address [address] [place] [address] Care Team Providers Care Senior Benefits Specialist Name Role Phone Travis Au MD Primary Care Provider [phone] Encounter Details Date Type Department Care Team (Latest Contact Info) Description 11/29/2024 Lab Requisition [facility] - Main Lab [address] [facility] [place] [address] Brandon Mckeon MD [address] [place] [address] Type 2 diabetes mellitus without [...] documented in this encounter Care Teams Senior Benefits Specialist Relationship Specialty Start Date End Date Travis Au MD [address] [facility] [address] [place], [phone] PCP - General Family Medicine 08/22/24 documented as of this encounter
--- OUTSIDE RECORDS SUMMARY | 2025-07-11 07:28 | XMS_ITS | Encounter Summary ---
Author Organization [facility] Address [address] [place] [address] Care Team Providers Care Baker Test Name Role Phone Travis Au MD Primary Care Provider [phone] Encounter Details Date Type Department Care Team (Late st Contact Info) Description 10/03/2024 Lab Requisition [facility] - Main Lab [address] [facility] [place] [address] Brandon Mckeon MD [address] [place] [address] Hyperkalemia; Hypertensive urgency Social History [...] LAB CHEMISTRY METHOD 10/03/2024 9:47 AM EST [facility] Potassium 5.6(H) 3.5 - 5.5 mmol/L LAB CHEMISTRY METHOD 10/03/2024 9:47 AM [facility] Chloride 109 96 - 110 mmol/L LAB CHEMISTRY METHOD 10/03/2024 9:47 AM [facility] CO2 20(L) 21 - 32 mmol/L LAB CHEMISTRY METHOD 10/03/2024 9:47 AM [facility] Anion Gap 6 3 - 11 LAB CHEMISTRY METHOD 10/03/2024 9:47 AM [facility] Glucose 111(H) 70 - 100 mg/dL LAB CHEMISTRY METHOD 10/03/2024 9:47 AM [facility] BUN 58(H) 5 - 25 mg/dL LAB CHEMISTRY METHOD 10/03/2024 9:47 AM [facility] Creatinine 2.91(H) 0.70 - 1.30 mg/dL LAB CHEMISTRY METHOD 10/03/2024 9:47 AM [facility] eGFR 23(L) >=60 mL/min/1. 73m2 LAB CHEMISTRY METHOD 10/03/2024 9:47 AM [facility] Comment:Calculation based on the Chronic Kidney Disease Epidemiology Collaboration (CKD-EPI) equation refit without adjustment for race. BUN/Creatinine Ratio 19.9 LAB CHEMISTRY METHOD 10/03/2024 9:47 AM [facility] Calcium 8.5 8.5 - 10.5 mg/dL LAB CHEMISTRY METHOD 10/03/2024 9:47 AM [facility] AST (SGOT) 14 10 - 42 unit/L LAB CHEMISTRY METHOD 10/03/2024 9:47 AM [facility] ALT (SGPT) 20 10 - 60 unit/L LAB CHEMISTRY METHOD 10/03/2024 9:47 AM [facility] Alkaline Phosphatase 57 42 - 121 unit/L LAB CHEMISTRY METHOD 10/03/2024 9:47 AM [facility] Total Protein 6.5 6.0 - 8.0 g/dL LAB CHEMISTRY METHOD 10/03/2024 9:47 AM EST [facility] Albumin 3.0(L) 3.2 - 5.0 g/dL LAB CHEMISTRY METHOD 10/03/2024 9:47 AM EST [facility] Total Bilirubin 0.2 0.0 - 1.4 mg/dL LAB CHEMISTRY METHOD 10/03/2024 9:47 AM [facility] Blood Venous blood specimen / Unknown Venipuncture / Unknown 10/03/2024 5:32 AM EST 10/03/2024 8:56 AM EST us Brandon Mckeon MD LAB BLOOD ORDERABLES Final Resu lt [facility] [address] [place] [address], [place] [phone] * (ABNORMAL) Complete blood count (10/03/2024 5:32 AM EST) WBC 10.1 4.8 - 10.8 K/mcL LAB HEMETOLOGY METHOD 10/03/2024 9:20 AM [facility] RBC 3.10(L) 4.50 - 5.50 M/mcL LAB HEMETOLOGY METHOD 10/03/2024 9:20 AM [facility] Hemoglobin 9.3(L) 13.5 - 17.5 g/dL LAB HEMETOLOGY METHOD 10/03/2024 9:20 AM [facility] Hematocrit 29.4(L) 42.0 - 54.0 % LAB HEMETOLOGY METHOD 10/03/2024 9:20 AM [facility] MCV 95.8 79.0 - 98.0 FL LAB HEMETOLOGY METHOD 10/03/2024 9:20 AM [facility] MCH 30.3 27.0 - 32.0 pcg LAB HEMETOLOGY METHOD 10/03/2024 9:20 AM [facility] MCHC 31.6(L) 32.0 - 37.0 g/dL LAB HEMETOLOGY METHOD 10/03/2024 9:20 AM EST [facility] RDW 13.7 11.0 - 15.0 % LAB HEMETOLOGY METHOD 10/03/2024 9:20 AM [facility] Platelets 281 130 - 400 K/mcL LAB HEMETOLOGY METHOD 10/03/2024 9:20 AM EST [facility] MPV 10.4 7.0 - 11.0 FL LAB HEMETOLOGY METHOD 10/03/2024 9:20 AM EST [facility] NRBC 0.0 <1.0 % LAB HEMETOLOGY METHOD 10/03/2024 9:20 AM [facility] NRBC Absolute 0.00 <0.10 K/mcL LAB HEMETOLOGY METHOD 10/03/2024 9:20 AM EST [facility] Blood Venous blood specimen / Unknown Venipuncture / Unknown 10/03/2024 5:32 AM EST 10/03/2024 8:56 AM EST us Brandon Mckeon MD LAB BLOOD ORDERABLES Final Resu lt [facility] [address] [place] [address], documented in this encounter Visit Diagnoses Diagnosis Hyperkalemia Hyperpotassemia Hypertensive urgency documented in this encounter Care Teams Baker Test Relationship Specialty Start Date End Date Travis Au MD [address] [place] [address], [phone] PCP - General Family Medicine 08/22/24 documented as of this encounter
--- OUTSIDE RECORDS SUMMARY | 2025-07-11 07:29 | XMS_ITS | Data Portability ---
Author Organization [facility] [employer] [facility], Main Office Address [address], [address] [place] [address] Care Team Providers Care Pharmacy Picking Technician Name Role Phone CANDIS BECK - 2ND FLOOR OTHER KENIA BUITRAGO Primary Care Provider Assessment Encounter Date Assessment Date Assessment LastModified by Organization Details LastModified Time 09/29/2024 09/29/2024 Spent 30 reviewing records, seeing pt, consulting with staff and documenting [email or web address] Not available 09/29/2024 15:04:55 11/11/2024 11/11/2024 Greater than 30 minutes of assessment, education, 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 Not available [...] Organization Details Recorded Time Peripheral vascular disease 710636306 Active 2023 Oksana Lennon NP [address] , [address], [place], [address], [facility] 4 17:52:49 Adult failure to thrive syndrome 586739855 Active 2023 Oksana Lennon NP [address], [address], [place], [address], [facility] 4 17:53:00 Type 2 diabetes mellitus 28496540 Active 2023 Oksana Lennon NP [address] , [address], [place], [address], [facility] 4 17:53:10 Hypertensive disorder 50367090 Active 2023 Oksana Lennon NP [address], [address], [place], [address], [facility] 4 17:53:15 Benign prostatic hyperplasia 172328416 Active 2023 Oksana Lnenon NP [address], [address], [place], [address], [facility] 4 17:53:22 Hyperkalemia 87196283 Active 2023 Oksana Lennon NP [address] [facility], [address], [place], [address], [facility] 4 17:53:30 Chronic kidney disease stage 4 786931392 Active 2023 Oksana Lennon NP [address] [facility], [address], [place], [address], [facility] 4 17:54:21 Hyperlipidemia 20995828 Active 2023 Oksana Lennon NP [address] [facility], [address], [place], [address], [facility] 4 18:13:13 Smoker 55486273 Active 2023 Oksana Lennon NP [address] [facility], [address], [place], [address], [facility] 4 18:15:45 Problem Notes None recorded. Medical Equipment None Reported. Allergies Allergen ID Allergen Name Allergen Category Reaction Reaction Severity Criticality Documentation Date Start Date Code Code System Note Provider Name and Address Organization Details Recorded Time 86896 morphine medicatio n itching Not available low 08/22/2024 7052 RxNorm Janice Mitchell MD [address], [address], [place], [address], [facility] 4 20:23:08 11762 bupropion Not available confusion hallucina tions Not available Not available Not available 08/22/2024 86104 RxNorm tremo rs, aggre ssive , loss of appet ite Janice Mitchell MD [address] [facility], [address], [place], [address] , [facility] 4 20:23:00 Vitals Date Recorded Body height Body weight Body mass index (BMI) Heart rate Respiratory rate Body temperature Oxygen saturation Oxygen saturation in Arterial blood by Pulse oximetry Systolic And Diastolic Provider Name and Address Organization Details Last Updated DateTime 5 179.83 cm 35280.8 1 g 25.5 kg/m2 62 /min 16 /min 98.2 [degF] 96 % 96 % 146/74 mm[Hg] Oksana Lennon NP [address] [facility] [address], [place], [address], [facility] 5 10:26:07 Date Recorded Body height Body weight Body mass index (BMI) Heart rate Respiratory rate Body temperature Oxygen saturation Oxygen saturation in Arterial blood by Pulse oximetry Systolic And Diastolic Provider Name and Address Organization Details Last Updated DateTime 5 179.83 cm 99535.8 1 g 25.5 kg/m2 68 /min 18 /min 97.2 [degF] 96 % 96 % 158/65 mm[Hg] Oksana Lennon NP [address] [place] [address], [facility] [address], [place], [address], [facility] 5 16:59:12 Date Recorded Body height Body mass index (BMI) Body weight Heart rate Respiratory rate Body temperature Oxygen saturation Oxygen saturation in Arterial blood by Pulse oximetry Systolic And Diastolic Provider Name and Address Organization Details Last Updated DateTime 5 179.83 cm 24.1 kg/m2 20198.8 9 g 71 /min 19 /min 97.9 [degF] 97 % 97 % 162/81 mm[Hg] Oksana Lennon NP [address] [place] [address], [facility] [address], [place], [address], [facility] 5 08:22:41 Date Recorded Body height Heart rate Respiratory rate Body temperature Oxygen saturation Oxygen saturation in Arterial blood by Pulse oximetry Systolic And Diastolic Provider Name and Address Organization Details Last Updated DateTime 4 179.83 cm 70 /min 18 /min 98 [degF] 98 % 98 % 132/75 mm[Hg] ISABEL SAUNDERS NP [address] [facility], [address], [place], [address], [facility] 4 15:05:47 Date Recorded Body height Body mass index (BMI) Body weight Heart rate Respiratory rate Body temperature Oxygen saturation Oxygen saturation in Arterial blood by Pulse oximetry Systolic And Diastolic Provider Name and Address Organization Details Last Updated DateTime 4 179.83 cm 28.2 kg/m2 15844.0 7 g 77 /min 18 /min 98 [degF] 98 % 98 % 132/75 mm[Hg] Janice Mitchell MD [address] [facility], [facility] [address], [place], [address], [facility] 4 15:06:09 Social History Question Answer Notes LastModified by Organizat ion Details LastModified Time Tobacco Smoking Status Current Every Day Smoker Oksana Lennon NP [address] [facility], [address], [place], [address], [facility] 08/22/2024 17:36:42 What Is Your Code Status? Full Code Information not available 08/22/2024 Where Do You Live? Apartment Information not available 08/22/2024 Do You Have A Medical Power Of Research Assoc? Yes Has HCP Information not available 08/23/2024 What Was The Date Of Your Most Recent Tobacco Screening? 08/22/2024 Information not available 08/22/2024 Do You Have An Out Of Hospital DNR? Yes [email or web address] Information not available 08/23/2024 What Is Your [...] Recorded Time Tdap 09/04/2023 completed Bri Mccall [facility] 10/04/2024 14:59:23 influenza, unspecified formulation 06/27/2022 completed Brimoses Mccall [facility] 10/04/2024 14:59:38 influenza, unspecified formulation 06/26/2023 completed Bri [facility] 10/04/2024 14:59:46 SARS-COV-2 (COVID-19) vaccine, UNSPECIFIED 10/16/2020 completed Bri [facility] 10/04/2024 15:00:00 SARS-COV-2 (COVID-19) vaccine, UNSPECIFIED 11/06/2020 completed Bri [facility] 10/04/2024 15:00:07 SARS-COV-2 (COVID-19) vaccine, UNSPECIFIED 06/02/2021 completed Bri [facility] 10/04/2024 15:00:15 SARS-COV-2 (COVID-19) vaccine, UNSPECIFIED 06/27/2022 completed Bri Cal [facility] 10/04/2024 15:00:22 SARS-COV-2 (COVID-19) vaccine, UNSPECIFIED 06/26/2023 completed [facility] 10/04/2024 15:00:37 Past Encounters Encounter ID Performer Location Encounter Start Date Encounter Closed Date Diagnosis/Indication Diagnosis SNOMED-CT Code Diagnosis ICD10 Code Diagnosis IMO Codes Diagnosis Note [id number] Oksana Lennon NP [facility] [address] 08/22/2024 14:49:44 08/23/2024 10:31:07 Adult failure to thrive syndrome 962150014 R62.7 supportive carept /ot eval and treat for rom, mobility, strengthen ing, gait, balancemon itor for need to adjust careplan Hypertensive disorder 38 541213 I10 amlodipine 10 mg po qdmetoprol ol xl 100 mg po qdhydralaz ine 50 tidmonitor bp and need to adjust Hyperkalemia 76179019 E8 7.5 renal diet, low potassiuml okelma 10 g qdsodium bicarb 650 mg po bidcbc and bmp weekly x 3 weeks Chronic ki dney disease stage 4 428656570 N18.4 renal diet, low potassiumw as educated in hospital about diet, cont here with dieticainb aseline 2.5-3lokel ma 10 g qdsodium bicarb 650 mg po bidfu with nephrology Dr Perez ? 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 with BKA Right and [address] and severe vascuopath yxarelto 2.5 mg po bidoxycodo ne 5 mg po q 8 hours prn paintyl prnPT/OT eval and treatfu plan:[facility] lab [facility] 12/3 3pm and 330 pm and 09/08 1:30 pmwill leave open to air for nowmonitor for s/s of infection Type 2 kishor betes mellitus 30868916 E11.21 farxiga 10 mg po qdlispro tid ac SSImonitor BS and adjust as needed Benign pro static hyperplasia 146909765 N40.0 tamsulosin 0.4 mg po dailyfinas teride 5 mg po qdmonitor Hyperlipidemia 46176735 E78.5 atorvastat in 10 mg po qdaspirin 81 mg po qdmonitor Smoker 19768658 F17.200 pt is chronic smokereduc ated 3-10 minutes and refuses NRT or to quitplan is to continue smokingmon itor for readiness to quit with chronic disease [id number] Janice Mitchell MD [facility] [address] 08/23/2024 19:50:37 08/29/2024 13:25:12 Adult failure to thrive syndrome 407714434 R62.7 PT/OT as above.Astrid tor mood and po intake.Psy ch consult prn Hypertensive disorder 38 975141 I10 Some borderline SBPs since here, but diastolics all low normal or low.No change in meds for nowContinu e amlodipine 10 mg qd, metoprolol succinate 100 mg qd, and hydralazin e 50 mg TID.Monito r BP and labs Hyperkalemia 38464474 E8 7.5 In good control on current regimen.Co ntinue renal diet, Lokelma 10 g qd and sodium bicarb 650 mg BID.Monito r labs. Chronic ki dney disease stage 4 810128714 N18.4 At baseline.C ontinue to avoid nephrotoxi c meds as able.Monit or labs.Renal f/u as planned. Peripheral vascular disease 495369823 I73.89 Z89.511 Recovering well from BKA on [...] this week. Type 2 kishor betes mellitus 29796075 E11.21 Sugars in good control since here.Last HgA1C was 7.4 in 03/2024, and 6.4 on 08/22/24.C ontinue Farxiga 10 mg qd and SSI.Monito r fingerstic ks TID and HgA1C q 3 months. Benign pro static hyperplasia 995469706 N40.0 No current sxs.Contin ue tamsulosin 0.4 mg qd and finasterid e 5 mg qdMonitor urinary function. Hyperlipidemia 20106741 E78.49 Continue atorvastat in 10 mg qd and ASA 81 mg qdMonitor labs as outpt. Smoker 76237265 F17.213 Earlier told someone he was jonesing for a cigarette , but tells me he is considerin g quitting.N ot interested in NRT, says he has had bad rxns.Sole nue to encourage cessation. [id number] Oksana Lennon NP [address] [address] 09/08/2024 12:24:42 09/12/2024 13:04:51 Peripheral vascular disease 302964390 I73.89 Z89.511 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, but having trouble with amp emotionall y and trouble caring for himself.co ntPT/OT for strengthen ing, balance, gait training, safety and function.a [facility] ontinue fall precaution s.Monitor for safety.Con tinueXarel to 2.5 mg BID for DVT prophylaxi s.oxycodon e 5 mg q 8 hrs prnAPAP 650 mg q 4 hrs prn.F/U with vascular as planned.Mo nitor incision, healed in today09/08 rehan ordered and faxed to [facility] with appt 09/15fu in spring for further testing of left leg Adult fail ure to thrive syndrome 438738087 R62.7 PT/OT as above.Astrid tor mood and po intake.Psy ch consult prn Hypertensive disorder 38 356872 I10 bp stableCont inueamlodi pine 10 mg qdmetoprol ol succinate 100 mg qd,hydrala zine 50 mg TID.Monito r BP and labs Hyperkalemia 43827128 E8 7.5 In good control on current regimen.Co ntinue renal diet (low k)Lokelma 10 g qdsodium bicarb 650 mg BID.Monito r labs. not done this week, will reorder Chronic ki dney disease stage 4 198124145 N18.4 At baseline.C ontinue to avoid nephrotoxi c meds as able.monit or bmp for increased kcont sodium bicarbonat e bidMonitor labs.Renal f/u as planned. Type 2 kishor betes mellitus 73835476 E11.21 BS stableLast HgA1C was 7.4 in 03/2024, and 6.4 on 08/22/24.C ontinueFar xiga 10 mg qd and SSI.Monito r fingerstic ks TID and HgA1C q 3 months. Benign pro static hyperplasia 371974187 N40.0 No current sxs.Contin uetamsulos in 0.4 mg qd and finasterid e 5 mg qdMonitor urinary function. Hyperlipidemia 43956429 E78.49 Continueat orvastatin 10 mg qd and ASA 81 mg qdMonitor labs as outpt. Smoker 03585447 F17.213 continues to smokeNot interested in NRT, says he has had bad rxns.educsilvestre tate on smoking cessationC ontinue to encourage cessation. [id number] Oksana Lennon NP [facility] [place] [address] 09/14/2024 14:33:03 09/16/2024 14:16:40 Peripheral vascular disease 402008324 I73.89 Z89.511 Recovering well from BKA on [...] prn Adult fail ure to thrive syndrome 877405803 R62.7 Monitor mood and intakePsyc h consult prn Hypertensive disorder 38 473858 I10 bp stable hereContin ueamlodipi ne 10 mg qdmetoprol ol succinate 100 mg qd,hydrala zine 50 mg TID.Monito r BP and labs outpt with pcplabs ordered but not done, will attempt tomorrow again Hyperkalemia 82944639 E8 7.5 In good control on current regimen.Co ntinue renal diet (low k)Lokelma 10 g qdsodium bicarb 650 mg BID.Monito r labs. not done this week, will reorder for ed am again before dc(unclear why labs aren't done, question difficult stick? )fu with pcp Chronic ki dney disease stage 4 633571246 N18.4 At baseline.C ontinue to avoid nephrotoxi c meds as able.conts odium bicarbonat e bidMonitor labs outpt with pcpRenal f/u as planned. Type 2 kishor efrain mellitus 20102727 E11.21 BS stableLast HgA1C was 7.4 in 03/2024, and 6.4 on 08/22/24.C ontinueFar xiga 10 mg qd and SSI.Monito r fingerstic ks TID and HgA1C q 3 months Benign pro static hyperplasia 624722985 N40.0 No current sxs.Contin uetamsulos in 0.4 mg qd and finasterid e 5 mg qdMonitor urinary function Hyperlipidemia 46743902 E78.49 Continueat orvastatin 10 mg qd and ASA 81 mg qdMonitor labs with pcp prn Smoker 11839632 F17.213 continues to smokeNot interested in NRT, says he has had bad rxns.educsilvestre tate on smoking cessationC ontinue to encourage cessation [id number] [facility] [address] 09/21/2024 13:09:13 09/22/2024 12:24:03 Peripheral vascular disease 457113659 I73.89 Z89.511 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, but having trouble with amp emotionall y and trouble caring for himself.ov erall doing much better and healing in, incision closedCont inue fall precaution s.Monitor for safety.Con tinueXarel to 2.5 mg BID for DVT prophylaxi s.APAP 650 mg q 4 hrs prn.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 so he can get prothetic soon.will fu with luu prothetics fu in spring for further testing of left leg with vascular outpt and prn Adult fail ure to thrive syndrome 358361099 R62.7 Monitor mood and intakePsyc h consult prn Hypertensive disorder 38 561559 I10 bp stable 118/64Cont inueamlodi pine 10 mg qdmetoprol ol succinate 100 mg qd,hydrala zine 50 mg TID.Monito r BP and labs outpt with pcp Hyperkalemia 51933692 E8 7.5 In good control on current regimen.Co ntinue renal diet (low k)Lokelma 10 g qdsodium bicarb 650 mg BID.Monito r labs.fu with renal Chronic ki dney disease stage 4 331739864 N18.4 At baseline.C ontinue to avoid nephrotoxi c meds as able.conts odium bicarbonat e bidRenal f/u as planned. Type 2 kishor betes mellitus 03167834 E11.21 BS stableHgA1 C was 7.4 in 03/2024, and 6.4 on 08/22/24 improvedCo ntinueFarx iga 10 mg qd and SSI.Monito r fingerstic ks TID and HgA1C q 3 months Benign pro static hyperplasia 066959968 N40.0 No current sxs.Contin uetamsulos in 0.4 mg qd and finasterid e 5 mg qdMonitor urinary function [id number] Oksana Lennon NP [facility] [address] 09/22/2024 12:31:57 09/26/2024 12:28:42 Peripheral vascular disease 525348504 I73.89 Z89.511 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, but having trouble with amp emotionall y and trouble caring for himself.ov erall doing much better and healing in, incision closedCont inue fall precaution s.Monitor for safety.Con tinueXarel to 2.5 mg BID for DVT prophylaxi s.APAP 650 mg q 4 hrs prn.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 so he can get prothetic soon.will fu with [facility] prosthetic sfu in spring for further testing of left leg with vascular outpt and prn Adult fail ure to thrive syndrome 048227320 R62.7 Monitor mood and intakePsyc h consult prn Hypertensive disorder 38 772476 I10 stableCont inueamlodi pine 10 mg qdmetoprol ol succinate 100 mg qd,hydrala zine 50 mg TID.Monito r BP and labs outpt with pcp Hyperkalemia 46107285 E8 7.5 In good control on current regimen.Co ntinue renal diet (low k)Lokelma 10 g qdsodium bicarb 650 mg BID.Monito r labs.fu with renalfu labs cbc and bmp 09/26 Chronic ki dney disease stage 4 773669346 N18.4 At baseline.C ontinue to avoid nephrotoxi c meds as able.conts odium bicarbonat e bidRenal f/u as planned. Type 2 kishor betes mellitus 59233181 E11.21 BS stableHgA1 C was 7.4 in 03/2024, and 6.4 on 08/22/24 improvedCo ntinueFarx iga 10 mg qd and SSI.Monito r fingerstic ks TID and HgA1C q 3 months Benign pro static hyperplasia 027719398 N40.0 No current sxs.Contin uetamsulos in 0.4 mg qd and finasterid e 5 mg qdMonitor urinary function Furuncle of buttock 1243 0003 L02.32 large abcess on posterior right upper buttock likely /19start cephalexin 500 mg po q 8 hours (will decrease from q6 hr dosing due to poor renal fx)x 7 days with probioticn s wash, pat dry, and apply foam dressing to areamonito r for s/s of infectionc bc and bmp on 09/26cons ider wound consult Angioedema of lip 794813 005 T78.3XXA pt with angioedema to only [...] distress, diff swallowing , or increased swelling [id number] [facility] [address] 09/23/2024 08:41:31 09/26/2024 14:26:31 Angioedema of lip 780454465 T78.3XXA pt with angioedema to only the [...] medication s if reoccurs Peripheral vascular disease 911034949 I73.89 Z89.511 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, but having trouble with amp emotionall y and trouble caring for himself.ov erall doing much better and healing in, incision closedCont inue fall precaution s.Monitor for safety.Con tinueXarel to 2.5 mg BID for DVT prophylaxi s.APAP 650 mg q 4 hrs prn.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 so he can get prothetic soon.will fu with [facility] prosthetic sfu in spring for further testing of left leg with vascular outpt and prn Adult fail ure to thrive syndrome 066903060 R62.7 Monitor mood and intakePsyc h consult prn Hypertensive disorder 38 099919 I10 stableCont inueamlodi pine 10 mg qdmetoprol ol succinate 100 mg qd,hydrala zine 50 mg TID.Monito r BP and labs outpt with pcp Hyperkalemia 27957451 E8 7.5 In good control on current regimen.Co ntinue renal diet (low k)Lokelma 10 g qdsodium bicarb 650 mg BID.Monito r labs.fu with renalfu labs cbc and bmp 09/26 Chronic ki dney disease stage 4 522281473 N18.4 At baseline.C ontinue to avoid nephrotoxi c meds as able.conts odium bicarbonat e bidRenal f/u as planned. Type 2 kishor betes mellitus 98056723 E11.21 BS stableHgA1 C was 7.4 in 03/2024, and 6.4 on 08/22/24 improvedCo ntinueFarx iga 10 mg qd and SSI.Monito r fingerstic ks TID and HgA1C q 3 months Benign pro static hyperplasia 261945629 N40.0 No current sxs.Contin uetamsulos in 0.4 mg qd and finasterid e 5 mg qdMonitor urinary function Carbuncle of buttock 762 61285 L02.33 large golf ball size abcess on [...] to assess renal func and for infection [id number] Janice Mitchell MD [address] [address] 09/26/2024 19:01:26 09/27/2024 08:53:46 Carbuncle of buttock 76674740 L02.33 Improving. Continue cephalexin 500 mg q 8 hrs until 09/29 with probiotic BID.Contin ue wound care as ordered.To be seen by wound care in AM before d/c.F/U with PCP as outpt. Angioedema of lip 878043 005 T78.3XXA ResolvedFi brandon prednisone taper.Astrid tor for recurrence . 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 Adult fail ure to thrive syndrome 130325375 R62.7 Much improved.F /U with PCP as outpt. Hypertensive disorder 38 929429 I10 In good control.Co ntinue amlodipine 10 mg qd, metoprolol succinate 100 mg qd, and hydralazin e 50 mg TID.F/U with PCP as outpt. Hyperkalemia 41063517 E8 7.5 Remains WNL, but sl. higher than 09/15, likely due to UMAIR.Contin ue renal diet (low k)Continue NaHCO3 as above and Lokelma 10 gms qdWill order repeat labs for 09/29 with VNA. Chronic ki dney disease stage 4 830918962 N18.4 With sig worsening today compared to 09/15Enc raged pt to drink more fluids.Con tinue to avoid nephrotoxi c meds as able.Sole nue sodium bicarbonat e 650 mg BID.Renal f/u as planned. Type 2 kishor betes mellitus 63028333 E11.21 BS mostly in ood control since here with occ high readingHgA 1C was 7.4 in 03/2024, and 6.4 on 08/22/24 improvedCo ntinue Farxiga 10 mg qd and SSI.F/U with PCP as outpt. Benign pro static hyperplasia 520632345 N40.0 No sxs. since here.Sole nue tamsulosin 0.4 mg qd and finasterid e 5 mg qdF/U with PCP as outpt. Hyperlipidemia 52175710 E78.49 Continue atorvastat in 10 mg qd and ASA 81 mg qdMonitor labs as outpt. Smoker 62640684 F17.213 Has been smoking since here.Refus ed NRT.Contin ue to encourage cessation. [id number] ISABEL SAUNDERS, TANYA [address] [address] 09/29/2024 15:04:27 09/30/2024 12:02:02 Chronic kidney disease stage 4 447459522 N18.4 With sig worsening 09/26 compared to 09/15Enc rage fluids.Con tinue to avoid nephrotoxi c meds as able.Follo w up with Nephrology as sched.Cont inue sodium bicarbonat e 650 mg BID.CMP in am Hyperkalemia 14131530 E8 7.5 Remains WNL, but sl. 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 Carbuncle of buttock 762 77853 L02.33 Improving. Continue cephalexin 500 mg q 8 hrs until complete, as well as probiotic BID.Contin ue wound care as ordered.To be seen by wound care in AM before d/c.F/U with PCP as outpt. Angioedema of lip 767007 005 T78.3XXA ResolvedFi brandon prednisone taper.Astrid tor for recurrence . Adult fail ure to thrive syndrome 470098194 R62.7 Much improved.F /U with PCP as outpt. Hypertensive disorder 38 717798 I10 In good control.Co ntinue amlodipine 10 mg qd, metoprolol succinate 100 mg qd, and hydralazin e 50 mg TID.F/U with PCP as outpt. Type 2 kishor betes mellitus 28183496 E11.21 BS mostly in good control since here with occ. high readingHgA 1C was 7.4 in 03/2024, and 6.4 on 08/22/24 improvedCo ntinue Farxiga 10 mgBS bid once a week and prnF/U with PCP as outpt. Benign pro static hyperplasia 056752771 N40.0 No sxs. since here.Sole nue tamsulosin 0.4 mg qd and finasterid e 5 mg qdF/U with PCP as outpt. Hyperlipidemia 73110195 E78.49 Continue atorvastat in 10 mg qd and ASA 81 mg qdMonitor labs as outpt. Smoker 36224779 F17.213 Has been smoking since here.Refus ed NRT.Contin ue to encourage cessation. [id number] [facility] [address] 09/30/2024 14:58:21 10/03/2024 12:45:37 Chronic kidney disease stage 4 845704953 N18.4 With sig worsening on 09/26 compared to t was going to drink more fluids at home and he says he did.Contin ue to avoid nephrotoxi c meds as able.Sole nue sodium bicarbonat e 650 mg BID.Renal f/u as planned.La bs were to be rechecked today, but pt refused.Pr omises he will allow lab draw on Wednesday 10/03. Hyperkalemia 89175948 E8 7.5 Remains WNL, but was sl. higher on 09/26 than 09/15, likely due to UMAIR.Contin ue renal diet (low k)Continue NaHCO3 as above and Lokelma 10 gms qdLabs on 10/03 as above. 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 Carbuncle of buttock [id number] L02.33 Improving per pt.Wound care note from 09/27 not scanned in to [facility] yet.Contin ue cephalexin 500 mg q 8 hrs until 10/02 with probiotic BID.Contin ue wound care as ordered.F/ U with wound care weekly until healed. Angioedema of lip 850312 005 T78.3XXA ResolvedHa s completed prednisone taper.Astrid tor for recurrence . Adult fail ure to thrive syndrome [id number] R62.7 Much improved.C ontinue liquid protein 30 mg qd to help with wound healing.En courage healthy eating. Hypertensive disorder 38 247762 I10 Remains in good control.Co ntinue amlodipine 10 mg qd, metoprolol succinate 100 mg qd, and hydralazin e 50 mg TID.Monito r BP and labs. Type 2 kishor betes mellitus 80922678 E11.21 Very good since return, all <150.HgA1C was 7.4 in 03/2024, and 6.4 on 08/22/24.C ontinue Farxiga 10 mg qd and SSI.If sugars remain <200 consistent ly can change TID fingerstic ks to qAM. Benign pro static hyperplasia 454390660 N40.0 No sxs. since here.Sole nue tamsulosin 0.4 mg qd and finasterid e 5 mg qdMonitor urinary function. Hyperlipidemia 51029854 E78.49 Continue atorvastat in mg qd and ASA 81 mg qdMonitor labs yearly. Smoker 60216417 F17.213 Continues to smoke.Cont inues to refuse NRT.Contin ue to encourage cessation. [id number] Oksana Lennon NP [place] [address] [place] [address] 10/13/2024 10:10:33 10/14/2024 10:47:39 Chronic kidney disease stage 4 [id number] N18.4 With sig worsening on 09/26 compared to t was going to drink more fluids at home and he says he did.Contin ueavoid nephrotoxi c meds as able.sodiu m bicarbonat e 650 mg BID.Renal f/u as planned.La bs ordered for bmp and cbc on 10/19 on thu x 2labs as above Hyperkalemia 71661615 E8 7.5 Remains WNL, but was sl. 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 Carbuncle of buttock 762 36113 L02.33 Improving per pt.mostly healedCont inuecomple lea cephalexin 500 mg q 8 hrs until 10/02 with probiotic BID.Contin ue wound care as ordered.F/ U with wound care weekly until healed.ratna l order zinc cream to right upper abcess buttock qd until healedmoni tor for s/s of infection Adult fail ure to thrive syndrome 848812802 R62.7 Much improved.E ncourage healthy eating. Hypertensive disorder 38 850038 I10 Remains in good control.Co ntinueamlo dipine 10 mg qd, metoprolol succinate 100 mg qd, and hydralazin e 50 mg TID.Monito r BP and labs. Type 2 kishor betes mellitus 64451857 E11.21 Very good since return, all <150.HgA1C was 7.4 in 03/2024, and 6.4 on 08/22/24.C ontinue Farxiga 10 mg qd and SSI.If sugars remain <200 consistent ly can change TID fingerstic ks to qAM. Benign pro static hyperplasia 113107268 N40.0 No sxs. since here.Sole nuetamsulo sin 0.4 mg qd and finasterid e 5 mg qdMonitor urinary function. Hyperlipidemia 99603319 E78.49 Continueat orvastatin 10 mg qd and ASA 81 mg qdMonitor labs yearly. Smoker 59784189 F17.213 Continues to smoke.spen t 3-10 min on education and NRT therapy, he is willing to try nicorette gumnicoret te gum 4 mg po q 3 hours prn cravingsCo ntinue to encourage cessation. [id number] Oksana Lennon NP [facility] [address] 10/21/2024 09:04:51 10/24/2024 16:33:36 Peripheral vascular disease 862392594 I73.89 Z89.511 Has recovered well from r BKA on 07/21.plan for prosthetic on 10/21 per pt.Continu eXarelto 2.5 mg BID for DVT prophylaxi s (not sure how long he needs to be on this).APAP 650 mg q 4 hrs prn.shrink er and f/u with prosthetis t as planned.F/ U with vascular as planned outpt in the spring Chronic dney disease stage 4 [id number] N18.4 With sig worsening on 09/26 compared to t was going to drink more fluids at home and he says he did.Contin ueavoid nephrotoxi c meds as able.sodiu m bicarbonat e 650 mg BID.Renal f/u as planned.la bs as above, and reordered Smoker 33352686 F17.213 Continues to smoke.jm rette gum 4 mg po q 3 hours prn cravingsCo ntinue to encourage cessation. Carbuncle of buttock 762 46595 L02.33 resolvedco mpleted cephalexin 500 mg q 8 hrs until 10/02 with probiotic BID..will order zinc cream to right upper abcess buttock qd until healedmoni tor for s/s of infection Hyperkalemia 52167659 E8 7.5 Remains WNL, but was sl. higher on 09/26 than 09/15, likely due to UMAIR.Contin uerenal diet (low k)NaHCO3 as aboveLokel ma 10 gms qdbmp and cbc weekly for one more lab Adult fail ure to thrive syndrome 459786707 R62.7 Much improved and seems to be doing better with plan for BKA soonEncour age healthy eating. Hypertensive disorder 38 598160 I10 Remains in good control.Co ntinueamlo dipine 10 mg qdmetoprol ol succinate 100 mg qdhydralaz ine 50 mg TID.Monito r BP and labs. Type 2 kishor betes mellitus 12495745 E11.21 Very good since return, all <150.HgA1C was 7.4 in 03/2024, and 6.4 on 08/22/24.C ontinue Farxiga 10 mg qd and SSI.If sugars remain <200 consistent ly can change TID fingerstic ks to qAM. Benign pro static hyperplasia 239917185 N40.0 No sxs. since here.Sole nuetamsulo sin 0.4 mg qd and finasterid e 5 mg qdMonitor urinary function. Hyperlipidemia 75939955 E78.49 Continueat orvastatin 10 mg qd and ASA 81 mg qdMonitor labs yearly. Angioedema of lip 412543 005 T78.3XXA ResolvedHa s completed prednisone taper.Astrid tor for recurrence . [id number] [facility] [address] [place] [address] 11/11/2024 08:19:31 11/15/2024 13:47:34 Peripheral vascular disease 397974408 I73.89 Z89.511 Has recovered well from r BKA on 07/21/24.H e plans to discharge despite prosthetic not fitting well and fu with prosthetic company on Thursday.He does not want to stay [...] the spring Chronic dney disease stage 4 548444610 N18.4 With CKD at baselineCo ntinueavoi d nephrotoxi c meds as able.sodiu m bicarbonat e 650 mg BID.Renal f/u as planned ouitptfu with pcp outpt and renal outpt Smoker 40080988 F17.213 Continues to smoke.jm rette gum 4 mg po q 3 hours prn cravingsCo ntinue to encourage cessation outpt Carbuncle of buttock 762 65540 L02.33 resolvedco mpleted cephalexin 500 mg q 8 hrs until 10/02 with probiotic BID..will order zinc cream to right upper abcess buttock qd until healedmoni tor for s/s of infection outpt with pcp Hyperkalemia 60777247 E8 7.5 Remains WNLContinu erenal diet (low k)NaHCO3 as aboveLokel ma 10 gms qdlabs outpt with pcp Adult fail ure to thrive syndrome 757652995 R62.7 Much improved and seems to be doing better with plan for BKA soonEncour age healthy eating outpt Hypertensive disorder 38 220235 I10 Remains in good control, bp high this am but has not got his bp meds yet todayConti nueamlodip ine 10 mg qdmetoprol ol succinate 100 mg qdhydralaz ine 50 mg TID.Monito r BP and labs outpt with pcp Type 2 kishor betes mellitus 20804861 E11.21 Very good since return, mostly <150.HgA1C was 7.4 in 03/2024, and 6.4 on 08/22/24.C ontinueFar xiga 10 mg qd and SSI.If sugars remain <200 consistent ly can change TID fingerstic ks to qAM.monito r outpt with pcp outpt Benign pro static hyperplasia 849368126 N40.0 No sxs. since here.Sole nuetamsulo sin 0.4 mg qdfinaster paula 5 mg qdMonitor urinary function outpt with pcp Hyperlipidemia 08223001 E78.49 Continueat orvastatin 10 mg qdASA 81 mg qdMonitor labs with pcp prn Angioedema of lip 510473 005 T78.3XXA Resolvedwa s never on sarita [...] Miles Member ID Guarantor Name 11/11/2024 1 [facility] - DOS ON OR AFTER 2023 - MEDICARE ADVANTAGE [place] (MEDICARE REPLACEMENT/ADV ANTAGE - PPO) Renato Hinson [id number] Renato Hinson Notes Date Note Type Note Provider Name and Address Organization Details Recorded Time 09/29/2024 text/html Renato is seen today for initial intake. He is a 64 yo man, just discharged from [facility] 09/27. returned him to the facility [...] had f/u set up with PCP/renal and personal care worker.He developed an abscess of his low back/upper [...] and cigarette smoker. ISABEL SAUNDERS NP [address] [facility], [address], [place], [address], [facility] [employer] 09/29/2024 15:14:57 09/30/2024 text/html This is a [...] able to admit him, unclear if to fpc care or continued rehab.He was supposed to [...] HLD, and cigarette smoker. Janice Mitchell MD [address] [place] [address], [address], [place], [address], [facility] [employer] [facility] 09/30/2024 16:14:41 10/13/2024 text/html Pt is seen [...] a few times. Oksana Lennon, TANYA [address] [facility], [address], [place], [address], [facility] [employer] 10/13/2024 10:38:23 10/21/2024 text/html Pt is seen for a 90 day routine rounding visit today. His PMH includes HTN, severe PVD s/p right BKA on 07/21/24, AODM with neuropathy, CKD stage 4, hx of Hep C from tattoo, latent Tb (txed in 2020), HLD, and cigarette smoker. Renato is 64 yo man here at [facility] for rehab who d/c'd to home [...] resolved with abx. 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 His prosthetic should be in this week. He is aware he should stay a few days to make should he has proper training and guidance to use the prosthetic here with therapy and then consider dc home. On exam, he is seen lying in bed in [facility]. He is excited to get his prosthetic this week and get back to his old life. He denies any new concerns. Unclear if weight is accurate at 182 lbs this week which would be down form 198 lbs on admission. Will have another weight done. Denies any vomiting or decreased eating today. Oksana Lennon, TANYA [address], [address], [place], [address], [facility] [employer] 10/21/2024 17:16:46 11/11/2024 text/html Pt is seen for a discharge summary. His PMH includes HTN, severe PVD s/p right BKA on 07/21/24, AODM with neuropathy, CKD stage 4, hx of Hep C from tattoo, latent Tb (txed in 2020), HLD, and cigarette smoker. Renato is 64 yo man here at [facility] for rehab who d/c'd to home [...] resolved with abx. 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 He [...] the prosthetic place on Thursday morning. 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 On exam, He states he is going home with , has walker and cane, and will be just fine . He denies any other complaints or concerns. Lung CTA in NAD. Oksana Lennon NP [address] [facility] [address] [facility], [address], [place], [address], [facility] - [employer] 11/11/2024 08:43:30
--- OUTSIDE RECORDS SUMMARY | 2025-07-11 07:29 | XMS_ITS | Encounter Summary ---
Author Organization [facility], Address [address] [place] [address] Phone Care Team Providers Care Machine Adjuster Name Role Phone Michelle Long MD Primary Care Provider [phone] Encounter Details Date Type Department Care Team (Late st Contact Info) Description 11/23/2024 Documentation Only [facility], [address] [place] [address] [place], [place] [address] [place] [address] Social History Tobacco Use Types [...] on filedocumented in this encounter Care Teams Machine Adjuster Relationship Specialty Start Date End Date Michelle Long MD [address] [place] [place], [place] PCP - General Internal Medicine 10/06/23 documented as of this encounter
--- OUTSIDE RECORDS SUMMARY | 2025-07-11 07:29 | XMS_ITS | Encounter Summary ---
Author Organization [facility], Address [address] [place] [address] Phone Care Team Providers Care Financial Management Consultant Name Role Phone Michelle Long MD Primary Care Provider [phone] Encounter Details Date Type Department Care Team (Late st Contact Info) Description 11/10/2023 Documentation Only [facility], [address] [place] [address] [place], [place] [address] [place] [address] Social History Tobacco Use Types [...] on filedocumented in this encounter Care Teams Financial Management Consultant Relationship Specialty Start Date End Date Michelle Long MD [address] [place], [place] PCP - General Internal Medicine 10/06/23 documented as of this encounter
--- NOTE | 2025-07-11 07:32 | CA_ITS ---
Acquisition Time: 2025-07-11 08:54:37 Total Exercise Time: 00:02:00 Test Indications: CHF/CARDIOMYOPATHY,Screening for CAD Medications: SEE H&P Protocol: LEXISCAN Max HR: 85 BPM 58% of Pred: 145 BPM Max BP: 118/66 mmHG Max Work Load: 1.0 METS Pharmacological stress test with Lexiscan injection, while sitting and squeezing ball, without anginal symptoms, without arrythmia, with mildly hypotensive response to injection, with nondiagnostic EKG for ischemia. In recovery he was treated with Aminophylline 75mg IVP to reverse Lexiscan. Nuclear images pending. Test reviewed with Dr Lerma Referred By: Kenisha Hernandez Electronically Signed By: KENISHA HERNANDEZ
--- NOTE | 2025-07-11 07:32 | HM_ITS ---
* Total monitoring time 3 days. * Underlying rhythm is sinus with an average rate of 72/Min. * Rare supraventricular ectopy. Short runs noted. Up to 18 beats. * Rare ventricular ectopy. One episode of accelerated idioventricular rhythm at 90/Min for 5 beats. * No significant pauses or high-grade AV blocks. * Some strips show markedly prominent T inversions/ST-depression of uncertain significance. * No patient markers or diary events. MTDD
[2025-07-11 08:10] LABS: MANUAL DIFF FLAG NO
[2025-07-11 08:14] LABS: Hematocrit 26.2 % (42.0-52.0); Hemoglobin 8.3 g/dl (14.0-18.0); Imm Gran Abs Auto 0.11 X10*3/uL (0.00-0.03); Imm Gran Pct Auto 1.3 % (0.0-0.4); Lymphocytes Absolute Auto 1.6 X10*3/uL (1.2-4.9); Mean Corpuscular HGB Conc 31.7 g/dl (31.0-36.0); Mean Corpuscular Hemoglobin 30.5 pg (27.0-33.0); Mean Corpuscular Volume 96.3 fL (80.0-98.0); NRBC Abs Auto 0.000 X10*3/uL (0.0-0.012); NRBC Pct Auto 0.0 /100WBC (0.0-0.2); Platelet Count 251 X10*3/uL (160-400); Red Blood Count 2.72 X10*6/uL (4.60-5.80); White Blood Count 8.3 X10*3/uL (4.8-10.8)
[2025-07-11 08:39] LABS: Parathyroid Hormone Intact 311.9 pg/mL (8.7-77.1)
[2025-07-11 08:43] LABS: Anion Gap 16 (12-20); Blood Urea Nitrogen 26 mg/dL (9-16); Calcium 9.0 mg/dL (8.4-10.2); Carbon Dioxide 25 mmol/L (22-29); Chloride 104 mmol/L (96-108); Estimated Glomerular Filt Rate 15; Iron 63 mcg/dL (45-160); Percent Iron Saturation 30 % (15-50); Potassium 4.1 mmol/L (3.3-5.1); Sodium 141 mmol/L (135-145); Total Iron Binding Capacity 210 mcg/dL (228-428); Unsaturated Iron Binding 147 ug/dL
[2025-07-11 08:53] LABS: Ferritin 407 ng/mL (20-250)
== END ==
LOC: HO.CARD 07:25
PROVIDERS: Absent Provider Internal Medicine Nephrology; PCP Internal Medicine; Visit Provider Nurse Practitioner Family
DX: I42.9 Cardiomyopathy, unspecified (principal); I50.9 Heart failure, unspecified; I49.1 Atrial premature depolarization; N25.81 Secondary hyperparathyroidism of renal origin; E55.9 Vitamin D deficiency, unspecified; I15.0 Renovascular hypertension; E87.20 Acidosis, unspecified; N18.4 Chronic kidney disease, stage 4 (severe); D63.1 Anemia in chronic kidney disease
CPT/HCPCS: 36415; 78452; 80048; 82306; 82728; 83540; 83970; 84100; 85025; 93017; 93242; A9500; J0280; J2785

== ENCOUNTER → 2025-07-11 07:32 | Outpatient (BNV) | payer OTHER, SELFPAY | PROVIDERS: Absent Provider Internal Medicine Nephrology; PCP Internal Medicine; Visit Provider Nurse Practitioner Family | DX: I50.20 Unspecified systolic (congestive) heart failure (principal) | CPT/HCPCS: 78452; 93016; 93018 ==

== ENCOUNTER → 2025-08-01 23:59 | Outpatient (BNV) | payer OTHER, SELFPAY | PROVIDERS: PCP Internal Medicine; Visit Provider Internal Medicine Cardiovascular Disease | DX: I50.20 Unspecified systolic (congestive) heart failure (principal) | CPT/HCPCS: 93458; 93571; 93572; 99152 ==

== ENCOUNTER → 2025-08-05 23:59 | Outpatient (BNV) | payer OTHER, SELFPAY | PROVIDERS: PCP Internal Medicine; Visit Provider Internal Medicine Nephrology | DX: N18.6 End stage renal disease (principal) | CPT/HCPCS: 90961 ==

== ENCOUNTER → 2025-08-10 23:59 | Outpatient (BNV) | payer OTHER, SELFPAY | PROVIDERS: PCP Internal Medicine; Visit Provider Internal Medicine Cardiovascular Disease | DX: I50.20 Unspecified systolic (congestive) heart failure (principal); I25.10 Atherosclerotic heart disease of native coronary artery without angina pectoris | CPT/HCPCS: 36221; 75605; 92921; 92928; 92978; 99152 ==

== ENCOUNTER 2025-08-17 07:58 | Outpatient (AMB) | payer OTHER, SELFPAY ==
--- OUTSIDE RECORDS SUMMARY | 2025-08-12 23:59 | XMS_ITS | Continuity of Care Document ---
Author Organization [facility] Address [address] [place] [address]- Care Team Providers Care Advisory Software Engineer Name Role Phone Mercedes HARVEY, Michelle Primary Care Physician [phone] [place] [facility] [place]): [place] - 08/12/25 [facility] [address] [place], [place] [phone] Attending Physician: Yobani Pal Admitting Physician: Yobani Pal Referring Physician: Yobani Pal Encounter Type: Pre-OutPatient One Time Allergies, Adverse Reactions, Alerts Substance Criticality Severity Reaction Reaction Severity Status buPROPion 1 Low criticality Mild hallucinations Active morphine 2 Low criticality Mild itching Act luna 1confusion, hallucinating, tremors, verbally aggressive, loss of appetite 2itching Immunizations Given and Recorded Vaccine Date Status Refusal Reason influenza virus vaccine, inactivated 1 11/20/24 Gi noemi influenza virus vaccine, inactivated 09/04/23 Give n influenza virus vaccine, inactivated 06/27/22 Anoop rded influenza virus vaccine, inactivated 10/11/21 Give n influenza virus vaccine, inactivated 07/17/17 Anoop rded influenza virus vaccine, inactivated 2 07/01/10 Gi noemi tetanus/diphtheria/pertussis, acel(Tdap) 09/04/23 Given tetanus/diphtheria/pertussis, acel(Tdap) 3 07/29/10 Given SARS-CoV-2(COVID-19)mRNA-LNP vac([id number]) 06/26/23 Recorded SFCH-PeV-1sLNT 12y+ bivalent booster vax 06/27/22 Recorded SARS-CoV-2 (COVID-19) mRNA BNT-162b2 vac 06/02/21 Recorded SARS-CoV-2 (COVID-19) mRNA BNT-162b2 vac 11/06/20 Recorded SARS-CoV-2 (COVID-19) mRNA BNT-162b2 vac 10/16/20 Recorded hepatitis B adult vaccine 08/10/17 Given hepatitis B adult vaccine 03/09/17 Given hepatitis B adult vaccine 02/06/17 Given pneumococcal 23-valent vaccine 4 07/01/10 Given 1Early/Late Reason: Early/Late Reason: Wean to Standard Admin Times 2Admin Note: MANUFACTURE BIOMEDICAL INFO SHEET GIVEN GIVEN W/O INCIDENT 3Admin Note: GIVEN W/O INCIDENT INFO SHEET GIVEN 4Admin Note: given w/o incident Medications albuterol-ipratropium 3 mg-0.5 mg/3 ml inhalation solution 3 mL, Inhalation, 4 times a day, PRN NEEDED FOR WHEEZING/SHORTNESS OF BREATH, TRAVEL SUPPLY, # 360 mL, 2 Refills, Maintenance, 08/04/24 9:56:00 AM EDT, [facility]/pharmacy #[id number], 3 mL Inhalation 4 times a day,x90 days,PRN: NEEDED FOR WHEEZING/SHORTNESS OF BREATH,Instr:TRAVEL SUPPLY, 183, cm, :25:00 EDT, Height, 82.5, kg, 07/27/24 17:02:00 EDT, Dry Weight Start Date: 08/04/24 Stop Date: 05/01/25 Status: Ordered Medication Dispense Status: Completed Quantity: 360.0 Unit: mL Total Allowed Fills: 3 Fills Dispensed: 0 amLODIPine 5 mg oral tablet 5 mg, 1, tablet, By Mouth, Daily, # 30 tablet, Refills 0, Maintenance, 08/01/25 10:46:00 AM EDT, Partial fill upon patient request if the prescription is for a schedule II opioid drug. Start Date: 08/01/25 Status: Ordered Medication Dispense Status: Completed Quantity: 30.0 Unit: tablet Total Allowed Fills: 1 Fills Dispensed: 0 aspirin 81 mg oral delayed release tablet = 81 mg, By Mouth, Daily, # 90 tablet, 0 Refills, Maintenance, 08/11/25 11:45:00 AM EST, EC Tablet, [facility], Partial fill upon patient request if the prescription is for a schedule IIopioid drug., 182.88, cm, 08/11/25 2:54:00 EST, Height, 68.6, kg, 08/10/25 18:23:00 EST, Dry Weight Start Date: 08/11/25 Status: Ordered Medication Dispense Status: Completed Quantity: 90.0 Unit: tablet Total Allowed Fills: 1 Fills Dispensed: 0 atorvastatin 10 mg oral tablet 1 tablet = 10 mg, By Mouth, Daily, 0 Refills, Maintenance, 03/15/25 11:04:00 AM EDT, Partial fill upon patient request if the prescription is for a schedule II opioid drug. Start Date: 03/15/25 Status: Ordered Medication Dispense Status: Completed Total Allowed Fills: 1 Fills Dispensed: 0 clopidogrel 75 mg oral tablet 75 mg, 1, tablet, By Mouth, Daily, # 90 tablet, Refills 3, Tot. Refills 3, Maintenance, 08/01/25 7:40:00 PM EDT, Route to Pharmacy Electronically, [facility]/pharmacy #[id number], Partial fill upon patient request if the prescription is for a schedule II opioid drug., 182, cm, 08/01/25 16:59:00 EDT, Height, 68.2, kg, 08/01/25 8:50:00 EDT, Dry Weight Start Date: 08/01/25 Status: Ordered Medication Dispense Status: Completed Quantity: 90.0 Unit: tablet Total Allowed Fills: 4 Fills Dispensed: 0 Farxiga 10 mg oral tablet 1 tablet = 10 mg, By Mouth, Daily, # 30 tablet, 0 Refills, Maintenance, 06/27/25 10:33:00 AM EDT, Tablet, Partial fill upon patient request if the prescription is for a schedule II opioid drug. Start Date: 06/27/25 Status: Ordered Medication Dispense Status: Completed Quantity: 30.0 Unit: tablet Total Allowed Fills: 1 Fills Dispensed: 0 finasteride 5 mg oral tablet 1 tablet = 5 mg, By Mouth, Daily, # 90 tablet, 3 Refills, Maintenance, 11/15/24 8:56:00 AM EST, Tablet, [facility]/pharmacy #[id number], Partial fill upon patient request if the prescription is for a schedule II opioid drug., 182, cm, 11/15/24 8:16:00 EST, Height, 77.3, kg, 08/15/24 21:59:00 EST, Dry Weight Start Date: 11/15/24 Status: Ordered Medication Dispense Status: Completed Quantity: 90.0 Unit: tablet Total Allowed Fills: 4 Fills Dispensed: 0 Furosemide = 80 mg, By Mouth, 2 times a day, 0 Refills, Maintenance, 07/24/25 9:38:00 AM EDT, Partial fill upon patient request if the prescription is for a schedule II opioid drug. Start Date: 07/24/25 Status: Ordered Medication Dispense Status: Completed Total Allowed Fills: 1 Fills Dispensed: 0 gel toe filler, shoe insert left foot gel toe filler, shoe insert left foot, See Instructions, # 1 each, Refills 0, Tot. Refills 0, Maintenance, Please size and fit patient for left toe shoe filler, 07/20/25 3:55:00 PM EDT, Supply, 182, cm, 07/07/25 15:04:00 EDT, Height, 76.5, kg, 07/06/25 17:59:00 EDT, Dry Weight Start Date: 07/20/25 Status: Ordered Medication Dispense Status: Completed Quantity: 1.0 Unit: each Total Allowed Fills: 1 Fills Dispensed: 0 Indications: Complete traumatic amputation of unspecified great toe, initial encounter; hydrALAZINE 25 mg oral tablet 50 mg, By Mouth, 3 times a day, # 90 tablet, Refills 3, Tot. Refills 3, Maintenance, 11/15/24 8:53:00 AM EST, Route to Pharmacy Electronically, [facility]/pharmacy #[id number], Partial fill upon patient request ifthe prescription is for a schedule II opioid drug., 182, cm, 11/15/24 8:16:00 EST, Height, 77.3, kg, 08/15/24 21:59:00 EST, Dry Weight Start Date: 11/15/24 Stop Date: 03/15/25 Status: Ordered Medication Dispense Status: Completed Quantity: 90.0 Unit: tablet Total Allowed Fills: 4 Fills Dispensed: 0 insulin lispro 100 u/ml subcutaneous injection 3-12 units, Subcutaneous Injection, 3 times a day before meals, 200 - 249 3 untis 250 - 299 6 [id number] - 349 9 units 350 or more: 12 units, # 3 mL, 0 Refills, Maintenance, 08/09/24 9:20:00 AM EST, Injection, [facility]/pharmacy #[id number], Partial fill upon patient request if the prescription is for a scheduleII opioid drug., 183, cm, 08/09/24 9:03:00 EST, Height, 82.5, kg, 07/27/24 17:02:00 EDT, Dry Weight Start Date: 08/09/24 Status: Ordered Medication Dispense Status: Completed Quantity: 3.0 Unit: mL Total Allowed Fills: 1 Fills Dispensed: 0 lisinopril 5 mg oral tablet 5 mg, 1, tablet, By Mouth, Daily, # 30 tablet, Refills 0, Maintenance, 06/27/25 9:24:00 AM EDT, Partial fill upon patient request if the prescription is for a schedule II opioid drug. Start Date: 06/27/25 Status: Ordered Medication Dispense Status: Completed Quantity: 30.0 Unit: tablet Total Allowed Fills: 1 Fills Dispensed: 0 melatonin 5 mg oral tablet 1 tablet = 5 mg, By Mouth, Daily at bedtime, PRN for insomnia, # 60 tablet, 0 Refills, Maintenance,08/01/25 10:49:00 AM EDT, Tablet, Partial fill upon patient request if the prescription is for a schedule II opioid drug. Start Date: 08/01/25 Status: Ordered Medication Dispense Status: Completed Quantity: 60.0 Unit: tablet Total Allowed Fills: 1 Fills Dispensed: 0 Metoprolol Succinate ER 100 mg oral tablet, extended release 1, tablet, By Mouth, Daily, # 90 tablet, Refills 1, Maintenance, 05/14/25 9:22:00 PM EDT, Route to Pharmacy Electronically, [id number], 182, cm, 05/09/25 8:07:00 EDT, Height, 69.4, kg, 03/10/25 15:18:00 EDT, Dry Weight Start Date: 05/14/25 Status: Ordered Medication Dispense Status: Completed Quantity: 90.0 Unit: tablet Total Allowed Fills: 1 Fills Dispensed: 0 Right below-knee amputation lock and liner Right below-knee amputation lock and liner, See Instructions, # 1 each, Refills 0, Tot. 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 Start Date: 08/01/25 Status: Ordered Medication Dispense Status: Completed Quantity: 90.0 Unit: tablet Total Allowed Fills: 1 Fills Dispensed: 0 tamsulosin 0.4 mg oral capsule 0.8 mg, By Mouth, Daily, # 60 capsule, Refills 0, Tot. Refills 0, Maintenance, 12/11/24 9:09:00 AM EDT, Route to Pharmacy Electronically, [facility], Partial fill upon patient request if the prescription is for a schedule II opioid drug., 182, cm, 12/11/24 7:54:00 EDT, Height, 80, kg, 12/07/24 15:47:00 EST, Dry Weight Start Date: 12/11/24 Status: Ordered Medication Dispense Status: Completed Quantity: 60.0 Unit: capsule Total Allowed Fills: 1 Fills Dispensed: 0 Problem List Condition Confirmation Course Effective Dates Status H ealth Status Informant Anemia, acute blood loss Confirmed Active Adrenal nodule , pending Endocrine Confirmed 12/2022 Active Amputation of left great toe Confirmed Active At risk for sleep apnea - cardiology wanted assessment , pending as of Confirmed Active BPH (benign prostatic hyperplasia) Confirmed Active Cardiomyopathy on scanned stress test EF 32% Confirmed Active Abnormal stress test -Cardiovascular stress test abnormal via [facility] moderate to severe chagnes 3 vessel distribution Confirmed 07/11/25 Active Cataract Confirmed Active CVA 1 Confirmed 03/14/21 Active CKD (chronic kidney disease) Confirmed Active CKD (chronic kidney disease) stage 2, GFR 60-89 ml/min Confirmed Active CKD (chronic kidney disease) stage 4, GFR 15-29 ml/min 2 Confirmed Active Congestive heart failure (CHF) 3 Confirmed 02/2025 Active Kidney cysts about ?3 cm, bilateral, outise scan, also [facility] CT 2-3 cm each side Confirmed 2022 Active Urinary hesitancy Confirmed Active Diabetes Confirmed Active Diabetes mellitus type 2 c/b peripheral neuropathy Confirmed 05/2010 Active Hearing loss (both sides) 4 Confirmed Active ANTICOAGULATED - as of , per vascular surgeon Confirmed Active Erectile dysfunction Confirmed Active Fever Confirmed Active Lymph node groin left indeterminate on US ; PLAN pending surgeon Confirmed Active Status post amputation of leg Confirmed Active 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 Confirmed Active 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 Confirmed 07/2024 Active History of heart attack NSTEMI per 2024 cardiology Confirmed Active HTN - Hypertension Confirmed Active Hyperkalemia Confirmed Active Hypertensive retinopathy, bilateral 5 Confirmed Active Bladder wall thickening, had cystoscopy via Urology 2022 Confirmed Active Hyponatremia Confirmed Active h/o right BKA infection Confirmed Active Latent TB, compelted treatment by 2019 6 Confirmed 01/23/16 Active Lightheadedness Confirmed Active Microalbuminuria Confirmed Active fracture: Transcervical fracture of left femur Confirmed 01/2024 Active Lung nodule on CT abdomen - again CT chest , repeat due Confirmed Active Obstructive sleep apnea - plus treatment-emergent Central on study Confirmed Active *[id number] 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 Confirmed Active Peripheral vascular disease Confirmed Active Abnormal PFTs (pulmonary function tests) - pending Pulmonary from 2022, booked for repeat PFT and Gas Operations Analyst for Confirmed 2022 Active Seborrheic keratoses Confirmed Active Hyperparathyroidism, secondary Confirmed Active LVH: Severe concentric left ventricular hypertrophy 7 Confirmed Active Smoker Confirmed Active SND - Sensorineural deafness Confirmed Active Aftercare following surgery of the circulatory system Confirmed Active Tobacco dependence Confirmed Active Latent Tuberculosis, completed treatment in 2019 8, 9, 10 Confirmed Active Tubular adenoma of colon <5mm, s/p polypectomy: per GI message, next colonoscopy due 0022-5039 11 Confirmed Active Urinary urgency Confirmed Active Urinary tract infection Confirmed Active 1small subcortical acute/subacute infarct in the left basal ganglia 2scanned note abtou 3start February 2025 per cardiology note 4ENT 2009 offerred Baha implant, opts out 5scanned [facility] 6POSITIVE T-SPOT 7on scanned ECHO 8PCP request for appt. Pt did not keep 2 sched appts. Letter sent to the referring source and to thept. 9Started LTBI therapy: Rifampin, 600 mg po 03/12/2016 and stopped 05/2016 due to Meds side effects,( ie: increased diarrhea.) 10Pt didn't keep 3 followup sched appts. Referring source notified. 11see histology results 07/15/16. Social History Social History Type Response Smoking Status Former smoker, quit more than 30 days ago entered on: 05/03/25 Sex Sex Representation Male (finding) Patient Care team information Care Team Personnel Name: Vicki Christianson CNM Position: Reference Physician Member Role: Primary Care Nurse Address: [address] [place] [address]- Telecom: Name: Christine Dean RN Position: [facility] AMB Nurse Member Role: Primary Care Nurse Name: Reuben Mcgovern RN, Giselle Michelle Position: [facility] RN Member Role: Primary Care Nurse Name: Awilda Cary Position: S RN Member Role: Primary Care Nurse Name: Sylvia Alcazar RN Position: [facility] RN Member Role: Primary Care Nurse Name: Michelle Long MD Position: [facility] Physician - Primary Care Member Role: PCP Address: [address] [place] [address]- Telecom: Name: Krystal Estes RN Position: [facility] RN Member Role: Primary Care Nurse Name: Carie Hewitt RN Position: [facility] RN Member Role: Primary Care Nurse Name: Willis Bridges RN Position: [facility] RN Member Role: Primary Care Nurse Name: Andria Egan RN Position: [facility] RN Member Role: Primary Care Nurse Name: Cristal Barnhart RN Position: [facility] OB RN Member Role: Primary Care Nurse Name: Tierra Ceron RN Position: [facility] OB RN Member Role: Primary Care Nurse Name: Eliu Morrison RN Position: [facility] RN Member Role: Primary Care Nurse Name: Roosevelt Briscoe Position: [facility] RN Supv Member Role: Primary Care Nurse Name: Hafsa Blair RN Position: [facility] RN Supv Member Role: Primary Care Nurse Name: Jason Caraballo RN Position: [facility] RN Member Role: Primary Care Nurse Name: Sharlene Nieves RN Position: [facility] RN Member Role: Primary Care Nurse Name: Leanna Francisco NP Position: [facility] Associate Professional Member Role: Lifetime Consulting Provider Address: [address] [facility] [place] [address]- Telecom: Name: John Mcallister MD Position: [facility] Renal MD Member Role: Lifetime Consulting Physician Address: [address] [facility] [place] [address]- [place] Telecom: Name: Valorie Molina RN Position: [facility] RN Member Role: Primary Care Nurse Name: Ruy Vance RN Position: [facility] RN Member Role: Primary Care Nurse Name: Sydnie Vaughn RN Position: [facility] RN Member Role: Primary Care Nurse Name: Joseph Madsen DO Position: [facility] Renal MD Member Role: Lifetime Consulting Physician Address: [address] [facility] [place] [address]- Telecom: Name: Shazia Howard RN Position: [facility] RN Member Role: Primary Care Nurse Name: Janice Mitchell MD Position: [facility] Outreach Member Role: Lifetime Consulting Physician Address: [address] [place] [address]- [place] Telecom: Name: Osmel Kwan RN Position: [facility] RN Member Role: Primary Care Nurse Name: Mariam Combs RN Position: [facility] RN Member Role: Primary Care Nurse Name: Abby Castillo RN Position: [facility] RN Member Role: Primary Care Nurse Name: Vicki Sarah RN Position: [facility] RN Member Role: Primary Care Nurse Name: Tiffanie Salgado RN Position: [facility] ED RN W/OE and Tasks Member Role: Primary Care Nurse Name: Kenisha Barber NP Position: [facility] PCO Associate Professional Member Role: Primary Care Nurse Address: [address] [place] [address] [address] [place] [address]- Telecom: Name: Luis Angel Richards MD Position: [facility] Outreach Member Role: Lifetime Consulting Physician Address: [address] [facility] [facility] [address] [facility] [place] [address]- Telecom: Name: Erlin Sanabria RN Position: [facility] RN Member Role: Primary Care Nurse Name: Ian Will RN Position: [facility] RN Member Role: Primary Care Nurse Name: Francisco Singer MD Position: [facility] Renal MD Member Role: Lifetime Consulting Physician Address: [address] [facility] [place] [address]- [place] Telecom: Care Team Related Persons Name: ALETHEA ESTRADA Name: MIGUEL EMERSON Name: ELBA WINCHESTER Insurance Providers Guarantor name: SIRI MARCUSO Health Plan Information #: 1 Payer: [facility] [employer] Payer Identifier: NA Member Number: [id number] Group Number: [id number] Subscriber Identifier: [id number] Relationship to Subscriber: self Coverage Type: Medicare Managed Care (Includes Medicare Advantage Plans) Coverage Verification Date: NA Telecom: NA Address: NA
--- OUTSIDE RECORDS SUMMARY | 2025-08-17 08:01 | XMS_ITS | Encounter Summary ---
Author Organization [facility] Address [address] [place] [address] Care Team Providers Care Medical Affairs Director Name Role Phone Travis Au MD Primary Care Provider [phone] Encounter Details Date Type Department Care Team (Latest Contact Info) Description 10/25/2024 Lab Requisition [facility] - Main Lab [address] [facility] [place] [address] rBandon Mckeon MD [address] [place] [address] Type 2 diabetes mellitus without [...] V28) documented in this encounter Care Teams Medical Affairs Director Relationship Specialty Start Date End Date Travis Au MD [address] [facility] [address] [place], [id number] PCP - General Family Medicine 08/22/24 documented as of this encounter
--- OUTSIDE RECORDS SUMMARY | 2025-08-17 08:01 | XMS_ITS | Encounter Summary ---
Author Organization [facility] Address [address] [place] [address] Care Team Providers Care Administrator Health Care Facility Name Role Phone Travis Au MD Primary Care Provider [phone] Encounter Details Date Type Department Care Team (Latest Contact Info) Description 11/01/2024 Lab Requisition [facility] - Main Lab [address] [place] [address] Brandon Mckeon MD [address] [place] [address] Type 2 diabetes mellitus without [...] LAB CHEMISTRY METHOD 11/02/2024 12:37 PM EST [facility] Potassium 5.1 3.5 - 5.5 [...] Resu lt [facility] [address] [place] [address], * (ABNORMAL) Complete blood count (11/02/2024 7:04 AM EST) [facility] Signature WBC 8.5 4.8 - 10.8 K/mcL [...] LAB HEMETOLOGY METHOD 11/02/2024 12:23 PM EST [facility] Blood Venous blood specimen / Unknown Venipuncture / Unknown 11/02/2024 7:04 AM EST 11/02/2024 11:13 AM EST us Brandon Mckeon MD LAB BLOOD ORDERABLES Final Resu lt [facility] [address] [place] [address], documented in this encounter Visit Diagnoses Diagnosis Type 2 diabetes mellitus without complications (CMS/HCC V24, CMS/HCC V28) documented in this encounter Care Teams Administrator Health Care Facility Relationship Specialty Start Date End Date Travis Au MD [address] [place] [address], [phone] PCP - General Family Medicine 08/22/24 documented as of this encounter
--- OUTSIDE RECORDS SUMMARY | 2025-08-17 08:01 | XMS_ITS | Clinical Summary ---
Author Organization [facility] Address [address] [facility] [address] [place] [address] Phone Care Team Providers Care Senior Strategy Manager Name Role Phone Michelle Long MD Primary Care Provider [phone] Allergies Active Allergy Reactions Criticality Noted Date [...] Orientation Not on file Plan of Treatment Upcoming Encounters Date Type Department Care Team (Late st Contact Info) Description 09/12/2025 1:00 PM EST Office Visit [facility] [address] [place] [address] [place] [address] Health Maintenance Due Date Last Done Comments [...] Foot Exam 10/12/2023 Diabetes: Hemoglobin A1C 11/22/2024 08/22/2024, 08/05 Pneumococcal Vaccine: Peds ( 0 to 5 Years) and At-Risk Patients (6 to 49 Years) Discontinued 07/01/2010 Influenza Vaccine Completed 07/24/2025, , 06/26/2023, Additional history exists Insurance [facility] ([id number]) [facility] ([id number]) Care Teams Senior Strategy Manager Relationship Specialty Start Date End Date Mercedes, Michelle J, MD [address] [place] [address] PCP - General Internal Medicine 10/06/23
--- OUTSIDE RECORDS SUMMARY | 2025-08-17 08:01 | XMS_ITS | Encounter Summary ---
Author Organization [facility] Address [address] [place] [address] Care Team Providers Care Ux Engineer Name Role Phone Travis Au MD Primary Care Provider [phone] Encounter Details Date Type Department Care Team (Late st Contact Info) Description 09/14/2024 Lab Requisition [facility] - Main Lab [address] [facility] [place] [address] Brandon Mckeon MD [address] [place] [address] Chronic kidney disease, unspecified Social [...] LAB CHEMISTRY METHOD 09/15/2024 9:37 AM EST [facility] Potassium 5.3 3.5 - 5.5 mmol/L LAB CHEMISTRY METHOD 09/15/2024 9:37 AM EST [facility] Chloride 110 96 - 110 mmol/L LAB CHEMISTRY METHOD 09/15/2024 9:37 AM EST [facility] LAB CO2 19(L) 21 - 32 mmol/L LAB CHEMISTRY METHOD 09/15/2024 9:37 AM [facility] LAB Anion Gap 9 3 - 11 LAB CHEMISTRY METHOD 09/15/2024 9:37 AM [facility] LAB Glucose 98 70 - 100 mg/dL LAB CHEMISTRY METHOD 09/15/2024 9:37 AM [facility] LAB BUN 46(H) 5 - 25 mg/dL LAB CHEMISTRY METHOD 09/15/2024 9:37 AM [facility] Creatinine 3.02(H) 0.70 - 1.30 mg/dL LAB CHEMISTRY METHOD 09/15/2024 9:37 AM [facility] LAB eGFR 22(L) >=60 mL/min/1. 73m2 LAB CHEMISTRY METHOD 09/15/2024 9:37 AM EST [facility] LAB Comment:Calculation based on the Chronic Kidney Disease Epidemiology Collaboration (CKD-EPI) equation refit without adjustment for race. BUN/Creatinine Ratio 15.2 LAB CHEMISTRY METHOD 09/15/2024 9:37 AM [facility] Calcium 8.8 8.5 - 10.5 mg/dL LAB CHEMISTRY METHOD 09/15/2024 9:37 AM [facility] LAB Blood Venous blood specimen / Unknown Venipuncture / Unknown 09/15/2024 4:53 AM EST 09/15/2024 9:01 AM EST us Brandon Mckeon MD LAB BLOOD ORDERABLES Final Resu lt [facility] LAB [address] [place] [address], [place] [phone] * (ABNORMAL) Complete blood count (09/15/2024 4:53 AM EST) WBC 9.2 4.8 - 10.8 K/mcL LAB HEMETOLOGY METHOD 09/15/2024 9:10 AM [facility] RBC 3.00(L) 4.50 - 5.50 M/mcL LAB HEMETOLOGY METHOD 09/15/2024 9:10 AM [facility] Hemoglobin 8.9(L) 13.5 - 17.5 g/dL LAB HEMETOLOGY METHOD 09/15/2024 9:10 AM [facility] Hematocrit 28.5(L) 42.0 - 54.0 % LAB HEMETOLOGY METHOD 09/15/2024 9:10 AM [facility] MCV 95.6 79.0 - 98.0 FL LAB HEMETOLOGY METHOD 09/15/2024 9:10 AM [facility] MCH 29.9 27.0 - 32.0 pcg LAB HEMETOLOGY METHOD 09/15/2024 9:10 AM [facility] LAB MCHC 31.2(L) 32.0 - 37.0 g/dL LAB HEMETOLOGY METHOD 09/15/2024 9:10 AM [facility] RDW 13.8 11.0 - 15.0 % LAB HEMETOLOGY METHOD 09/15/2024 9:10 AM [facility] Platelets 217 130 - 400 K/mcL LAB HEMETOLOGY METHOD 09/15/2024 9:10 AM [facility] MPV 11.0 7.0 - 11.0 FL LAB HEMETOLOGY METHOD 09/15/2024 9:10 AM [facility] NRBC 0.0 <1.0 % LAB HEMETOLOGY METHOD 09/15/2024 9:10 AM [facility] NRBC Absolute 0.00 <0.10 K/mcL LAB HEMETOLOGY METHOD 09/15/2024 9:10 AM [facility] Blood Venous blood specimen / Unknown Venipuncture / Unknown 09/15/2024 4:53 AM EST 09/15/2024 9:01 AM EST Brandon Mckeon MD LAB BLOOD ORDERABLES Final Resu lt [facility] LAB [address] [place] [address], documented in this encounter Visit Diagnoses Diagnosis Chronic kidney disease, unspecified documented in this encounter Care Teams Ux Engineer Relationship Specialty Start Date End Date Travis Au MD [address] [place] [phone] PCP - General Family Medicine 08/22/24 documented as of this encounter
--- OUTSIDE RECORDS SUMMARY | 2025-08-17 08:01 | XMS_ITS | Encounter Summary ---
Author Organization [facility] Address [address] [place] [address] Care Team Providers Care Girls Swimming Coach Name Role Phone Travis Au MD Primary Care Provider [phone] Encounter Details Date Type Department Care Team (Latest Contact Info) Description 10/26/2024 Lab Requisition [facility] - Main Lab [address] [facility] [place] [address] Brandon Mckeon MD [address] [place] [address] Chronic kidney disease, unspecified; Type [...] LAB CHEMISTRY METHOD 10/27/2024 9:41 AM EST [facility] Potassium 5.6(H) 3.5 - 5.5 mmol/L LAB CHEMISTRY METHOD 10/27/2024 9:41 AM [facility] Chloride 110 96 - 110 mmol/L LAB CHEMISTRY METHOD 10/27/2024 9:41 AM [facility] CO2 19(L) 21 - 32 mmol/L LAB CHEMISTRY METHOD 10/27/2024 9:41 AM [facility] Anion Gap 8 3 - 11 LAB CHEMISTRY METHOD 10/27/2024 9:41 AM [facility] Glucose 92 70 - 100 mg/dL LAB CHEMISTRY METHOD 10/27/2024 9:41 AM [facility] BUN 55(H) 5 - 25 mg/dL LAB CHEMISTRY METHOD 10/27/2024 9:41 AM [facility] Creatinine 3.72(H) 0.70 - 1.30 mg/dL LAB CHEMISTRY METHOD 10/27/2024 9:41 AM [facility] eGFR 17(L) >=60 mL/min/1. 73m2 LAB CHEMISTRY METHOD 10/27/2024 9:41 AM [facility] LAB Comment:Calculation based on the Chronic Kidney Disease Epidemiology Collaboration (CKD-EPI) equation refit without adjustment for race. BUN/Creatinine Ratio 14.8 LAB CHEMISTRY METHOD 10/27/2024 9:41 AM [facility] Calcium 8.2(L) 8.5 - 10.5 mg/dL LAB CHEMISTRY METHOD 10/27/2024 9:41 AM [facility] Blood Venous blood specimen / Unknown Venipuncture / Unknown 10/27/2024 6:57 AM EST 10/27/2024 8:20 AM EST us Brandon Mckeon MD LAB BLOOD ORDERABLES Final Resu lt [facility] LAB [address] [place] [address], * (ABNORMAL) Complete blood count (10/27/2024 6:57 AM EST) [facility] WBC 10.0 4.8 - 10.8 K/mcL LAB HEMETOLOGY METHOD 10/27/2024 9:21 AM [facility] RBC 2.90(L) 4.50 - 5.50 M/mcL LAB HEMETOLOGY METHOD 10/27/2024 9:21 AM [facility] Hemoglobin 8.6(L) 13.5 - 17.5 g/dL LAB HEMETOLOGY METHOD 10/27/2024 9:21 AM [facility] Hematocrit 28.1(L) 42.0 - 54.0 % LAB HEMETOLOGY METHOD 10/27/2024 9:21 AM [facility] MCV 95.6 79.0 - 98.0 FL LAB HEMETOLOGY METHOD 10/27/2024 9:21 AM [facility] MCH 29.3 27.0 - 32.0 pcg LAB HEMETOLOGY METHOD 10/27/2024 9:21 AM [facility] LAB MCHC 30.6(L) 32.0 - 37.0 g/dL LAB HEMETOLOGY METHOD 10/27/2024 9:21 AM [facility] RDW 13.9 11.0 - 15.0 % LAB HEMETOLOGY METHOD 10/27/2024 9:21 AM [facility] Platelets 354 130 - 400 K/mcL LAB HEMETOLOGY METHOD 10/27/2024 9:21 AM [facility] MPV 10.1 7.0 - 11.0 FL LAB HEMETOLOGY METHOD 10/27/2024 9:21 AM [facility] NRBC 0.0 <1.0 % LAB HEMETOLOGY METHOD 10/27/2024 9:21 AM [facility] NRBC Absolute 0.00 <0.10 K/mcL LAB HEMETOLOGY METHOD 10/27/2024 9:21 AM EST [facility] LAB Blood Venous blood specimen / Unknown Venipuncture / Unknown 10/27/2024 6:57 AM EST 10/27/2024 8:20 AM EST us Brandon Mckeon MD LAB BLOOD ORDERABLES Final Resu lt [facility] LAB [address] [place] [address], [place] [phone] documented in this encounter Visit Diagnoses Diagnosis Chronic kidney disease, unspecified Type 2 diabetes mellitus without complications (CMS/HCC V24, CMS/HCC V28) documented in this encounter Care Teams Girls Swimming Coach Relationship Specialty Start Date End Date Travis Au MD [address] [place] [phone] PCP - General Family Medicine 08/22/24 documented as of this encounter
--- OUTSIDE RECORDS SUMMARY | 2025-08-17 08:02 | XMS_ITS | Encounter Summary ---
Author Organization [facility] Address [address] [place] [address] Care Team Providers Care Rn Intern Name Role Phone Travis Au MD Primary Care Provider [phone] Encounter Details Date Type Department Care Team (Late st Contact Info) Description 07/10/2025 Lab Requisition [facility] - Main Lab [address] [place] [address] Donell Ruiz MD [address] [facility] [address] [place] [address] Anemia in other chronic diseases [...] LAB HEMETOLOGY METHOD 07/10/2025 7:31 AM EDT [facility] Blood Venous blood specimen / Unknown 07/10/2025 6:00 AM EDT 07/10/2025 7:25 AM EDT Donell Ruiz MD LAB BLOOD ORDERABLES Final Resul t [facility] H[facility] LAB [address] [place] [address], documented in this encounter Visit Diagnoses Diagnosis Anemia in other chronic diseases classified elsewhere documented in this encounter Care Teams Rn Intern Relationship Specialty Start Date End Date Travis Au MD [address] [place] [address], [phone] PCP - General Family Medicine 08/22/24 documented as of this encounter
--- OUTSIDE RECORDS SUMMARY | 2025-08-17 08:02 | XMS_ITS | Encounter Summary ---
Author Organization [facility] Address [address] [place] [address] Phone Care Team Providers Care Audit Machine Operator Name Role Phone Michelle Long MD Primary Care Provider [phone] Encounter Details Date Type Department Care Team (Late st Contact Info) Description 11/23/2024 Documentation Only [facility] [address] [phone] [place] [address] [place] [address] Social History Tobacco Use Types Packs/Day Years Used Date Smoking Tobacco: Former Smokeless Tobacco: Never Sex and Gender Information Value Date Recorded Sex Assigned at Not on file Legal Sex Male 2:06 PM EST Gender Identity Not on file Sexual Orientation Not on file documented as of this encounter Plan of Treatment Upcoming Encounters Date Type Department Care Team (Late st Contact Info) Description 09/12/2025 1:00 PM EST Office Visit [facility] [address] [place] [phone] documented as of this encounter Visit Diagnoses Not on filedocumented in this encounter Care Teams Audit Machine Operator Relationship Specialty Start Date End Date Michelle Long MD [address] [place] [address] PCP - General Internal Medicine 10/06/23 documented as of this encounter
--- OUTSIDE RECORDS SUMMARY | 2025-08-17 08:02 | XMS_ITS | Encounter Summary ---
Author Organization [facility] Address [address] [place] [address] Phone Care Team Providers Care Thread Cutter Tender Name Role Phone Michelle Long MD Primary Care Provider Reason for Visit * Reason Comments Med Refill Encounter Details Date Type Department Care Team (Late Contact Info) Description 01/01/2025 Refill [facility] [address] [place] [phone] Phill Mc MD [address] [place] [address] [place] [phone] Social History Tobacco Use Types Packs/Day Years Used Date Smoking Tobacco: Former Smokeless Tobacco: Never Sex and Gender Information Value Date Recorded Sex Assigned at Not on file Legal Sex Male 2:06 PM EST Gender Identity Not on file Sexual Orientation Not on file documented as of this encounter Plan of Treatment Upcoming Encounters Date Type Department Care Team (Late Contact Info) Description 09/12/2025 1:00 PM EST Office Visit [facility] [address] [place] [phone] documented as of this encounter Visit Diagnoses Not on filedocumented in this encounter Care Teams Thread Cutter Tender Relationship Specialty Start Date End Date Michelle Long MD [address] [place] [address] PCP - General Internal Medicine 10/06/23 documented as of this encounter
--- OUTSIDE RECORDS SUMMARY | 2025-08-17 08:02 | XMS_ITS | Encounter Summary ---
Author Organization [facility] Address [address] [place] [address] Care Team Providers Care Ticket Broker Name Role Phone Travis Au MD Primary Care Provider [phone] Encounter Details Date Type Department Care Team (Late st Contact Info) Description 09/13/2024 Lab Requisition [facility] - Main Lab [address] [facility] [place] [address] Travis Au MD [address] [place] [address] [address] [facility] [phone] Chronic kidney disease, unspecified Social History Tobacco [...] unspecified documented in this encounter Care Teams Ticket Broker Relationship Specialty Start Date End Date Travis Au MD [address] [facility] [address] [place], [phone] PCP - General Family Medicine 08/22/24 documented as of this encounter
--- OUTSIDE RECORDS SUMMARY | 2025-08-17 08:02 | XMS_ITS | Encounter Summary ---
Author Organization [facility] Address [address] [place] [address] Care Team Providers Care Sommelier Name Role Phone Travis Au MD Primary Care Provider [phone] Encounter Details Date Type Department Care Team (Late st Contact Info) Description 07/08/2025 Lab Requisition [facility] - Main Lab [address] [facility] [address] [place] [address] Donell Ruiz MD [address] [facility] [address] [place] [address] Anemia in other chronic diseases [...] LAB HEMETOLOGY METHOD 07/08/2025 8:50 AM EDT [facility] Blood Venous blood specimen / Unknown 07/08/2025 6:30 AM EDT 07/08/2025 8:45 AM EDT Donell Ruiz MD LAB BLOOD ORDERABLES Final Resul t [facility] H[facility] LAB [address] [place] [address], documented in this encounter Visit Diagnoses Diagnosis Anemia in other chronic diseases classified elsewhere documented in this encounter Care Teams Sommelier Relationship Specialty Start Date End Date Travis Au MD [address] [place] [address], [phone] PCP - General Family Medicine 08/22/24 documented as of this encounter
--- OUTSIDE RECORDS SUMMARY | 2025-08-17 08:02 | XMS_ITS | Clinical Summary ---
Author Organization [address] [facility] Address [address] [place] [address] Phone Care Team Providers Care Uplands Division Director Name Role Phone Travis Au MD Primary Care Provider [phone] Encounters Date Type Department Care Team Description 07/10/2025 Lab Requisition [facility] Lab [address] [place] [phone] Donell Ruiz MD Anemia in other chronic diseases classified elsewhere 07/08/2025 Lab Requisition [facility] Lab [address] [place] [phone] Donell Ruiz MD Anemia in other chronic [...] of 2 - Risk 2-dose series) 1978 RSV Immunization Adult Patients (1 - Risk 50-74 years 1-dose series) 2009 Zoster Vaccines (1 of 2) 2009 Pneumococcal Vaccine: 50+ Years (2 of 2 - PCV) 07/01/2011 07/01/2010 Abdominal Aortic Aneurysm (AAA) Screen 10/30/2023 Cholesterol [...] LAB HEMETOLOGY METHOD 07/10/2025 7:31 AM EDT [facility] Blood Venous blood specimen / Unknown 07/10/2025 6:00 AM EDT 07/10/2025 7:25 AM EDT us Donell Ruiz MD LAB BLOOD ORDERABLES Final Resul t [facility] LAB [address] [place] [address], * (ABNORMAL) Basic metabolic panel (11/02/2024 7:04 AM EST) Sodium 134 133 - 145 mmol/L LAB CHEMISTRY METHOD 11/02/2024 12:37 PM EST [facility] Potassium 5.1 3.5 - 5.5 mmol/L LAB CHEMISTRY METHOD 11/02/2024 12:37 PM EST [facility] Chloride 107 96 - 110 mmol/L LAB CHEMISTRY METHOD 11/02/2024 12:37 PM EST [facility] CO2 21 21 - 32 mmol/L LAB CHEMISTRY METHOD 11/02/2024 12:37 PM EST [facility] Anion Gap 6 3 - 11 LAB CHEMISTRY METHOD 11/02/2024 12:37 PM [facility] Glucose 93 70 - 100 mg/dL LAB CHEMISTRY METHOD 11/02/2024 12:37 PM [facility] BUN 54(H) 5 - 25 mg/dL LAB CHEMISTRY METHOD 11/02/2024 12:37 PM [facility] Creatinine 3.63(H) 0.70 - 1.30 mg/dL LAB CHEMISTRY METHOD 11/02/2024 12:37 PM [facility] eGFR 18(L) >=60 mL/min/1. 73m2 LAB CHEMISTRY METHOD 11/02/2024 12:37 PM [facility] LAB Comment:Calculation based on the Chronic Kidney Disease Epidemiology Collaboration (CKD-EPI) equation refit without adjustment for race. BUN/Creatinine Ratio 14.9 LAB CHEMISTRY METHOD 11/02/2024 12:37 PM [facility] Calcium 8.5 8.5 - 10.5 mg/dL LAB CHEMISTRY METHOD 11/02/2024 12:37 PM [facility] Blood Venous blood specimen / Unknown Venipuncture / Unknown 11/02/2024 7:04 AM EST 11/02/2024 11:13 AM EST us Brandon Mckeon MD LAB BLOOD ORDERABLES Final Resu lt [facility] LAB [address] [place] [address], * Hemoglobin A1c (08/22/2024 5:16 AM EST) Hemoglobin A1C 6.4 <6.5 % LAB CHEMISTRY METHOD 08/23/2024 7:38 PM [facility] Mean Bld Glu Estim. 137 mg/dL LAB CHEMISTRY METHOD 08/23/2024 7:38 PM [facility] Blood Venous blood specimen / Unknown 08/22/2024 5:16 AM EST 08/22/2024 7:59 AM EST us Travis Au MD LAB BLOOD ORDERABLES Final Resul t [facility] H[facility] LAB [address] [place] [address], [place] [phone] from Last 3 Months or Most Recently Relevant to Health Maintenance Insurance [facility] Member Subscriber Plan / Payer (Ef fective 2024-Present) Name:SIRI HINSON Relation to Subscriber:Self Name:Siri Hinson Payer ID:[id number] Group ID:[id number] Type:Not on file Address: [place] [address] [address] [address] Care Teams Uplands Division Director Relationship Specialty Start Date End Date Travis Au MD [address] [facility] [address] [place], [phone] PCP - General Family Medicine 08/22/24
--- OUTSIDE RECORDS SUMMARY | 2025-08-17 08:02 | XMS_ITS | Encounter Summary ---
Author Organization [facility] Address [address] [place] [address] Phone Care Team Providers Care Dry Starch Supervisor Name Role Phone Michelle Long MD Primary Care Provider [phone] Encounter Details Date Type Department Care Team (Late st Contact Info) Description 11/10/2023 Documentation Only [facility] [address] [place] [phone] Gaby Will [place] [address] [place] [address] Social History Tobacco Use Types [...] Visit [facility] [address] [place] [phone] documented as of this encounter Visit Diagnoses Not on filedocumented in this encounter Care Teams Dry Starch Supervisor Relationship Specialty Start Date End Date Michelle Long MD [address] [place] [address] PCP - General Internal Medicine 10/06/23 documented as of this encounter
--- OUTSIDE RECORDS SUMMARY | 2025-08-17 08:02 | XMS_ITS | Data Portability ---
Author Organization [facility], Main Office Address [address] [place] [address] Care Team Providers [facility] Manager Name Role Phone CANDIS BECK - 2ND FLOOR OTHER KENIA BUITRAGO Primary Care Provider Assessment Encounter Date Assessment Date Assessment LastModified by Organization Details LastModified Time 09/29/2024 09/29/2024 Spent 30 reviewing records, seeing pt, consulting with staff and documenting [email or web address] Not available 09/29/2024 15:04:55 11/11/2024 11/11/2024 Greater than 30 minutes of assessment, education, applying digital retoucher, discharge planning and documentation today. Not available [...] Organization Details Recorded Time Peripheral vascular disease 364446086 Active 2023 Oksana Lennon NP [address], [place], [address], [facility] 4 17:52:49 Adult failure to thrive syndrome 354231357 Active 2023 Oksana Lennon NP [address], [address], [place], [address], [facility] [employer] 4 17:53:00 Type 2 diabetes mellitus 31535206 Active 2023 Oksana Lennon NP [address] , [address], [place], [address], [facility] 4 17:53:10 Hypertensive disorder 36309421 Active 2023 Oksana Lennon NP [address], [place], [address], [facility] 4 17:53:15 Benign prostatic hyperplasia 207643522 Active 2023 Oksana Lennon NP [address], [address], [place], [address], [facility] 4 17:53:22 Hyperkalemia 28062335 Active 2023 Oksana Lennon NP [address] [facility], [address], [place], [address], [facility] 4 17:53:30 Chronic kidney disease stage 4 396648912 Active 2023 Oksana Lennon NP [address] [facility], [address], [place], [address], [facility] 4 17:54:21 Hyperlipidemia 39693038 Active 2023 Oksana Lennon NP [address] [facility], [address], [place], [address], [facility] 4 18:13:13 Smoker 54771633 Active 2023 Oksana Lennon NP [address] [facility], [address], [place], [address], [facility] 4 18:15:45 Problem Notes None recorded. Medical Equipment None Reported. Allergies Allergen ID Allergen Name Allergen Category Reaction Reaction Severity Criticality Documentation Date Start Date Code Code System Note Provider Name and Address Organization Details Recorded Time 01748 morphine medicatio n itching Not available low 08/22/2024 7052 RxNorm Janice Mitchell MD [address], [address], [place], [address], [facility] 4 20:23:08 83234 bupropion Not available confusion hallucina tions Not available Not available Not available 08/22/2024 54005 RxNorm tremo rs, aggre ssive , loss of appet ite Janice Mitchell MD [address] [facility], [address], [place], [address] , [facility] 4 20:23:00 Vitals Date Recorded Body height Body weight Body mass index (BMI) Heart rate Respiratory rate Body temperature Oxygen saturation Oxygen saturation in Arterial blood by Pulse oximetry Systolic And Diastolic Provider Name and Address Organization Details Last Updated DateTime 5 179.83 cm 62409.8 1 g 25.5 kg/m2 62 /min 16 /min 98.2 [degF] 96 % 96 % 146/74 mm[Hg] Oksana Lennon NP [address] [facility] [address], [place], [address], [facility] 5 10:26:07 Date Recorded Body height Body weight Body mass index (BMI) Heart rate Respiratory rate Body temperature Oxygen saturation Oxygen saturation in Arterial blood by Pulse oximetry Systolic And Diastolic Provider Name and Address Organization Details Last Updated DateTime 5 179.83 cm 69704.8 1 g 25.5 kg/m2 68 /min 18 /min 97.2 [degF] 96 % 96 % 158/65 mm[Hg] Oksana Lennon NP [address] [place] [address], [facility] [address], [place], [address], [facility] 5 16:59:12 Date Recorded Body height Body mass index (BMI) Body weight Heart rate Respiratory rate Body temperature Oxygen saturation Oxygen saturation in Arterial blood by Pulse oximetry Systolic And Diastolic Provider Name and Address Organization Details Last Updated DateTime 5 179.83 cm 24.1 kg/m2 41744.8 9 g 71 /min 19 /min 97.9 [degF] 97 % 97 % 162/81 mm[Hg] Oksana Lennon NP [address] [place] [address], [facility] [address], [place], [address], [facility] 5 08:22:41 Date Recorded Body height Heart rate Respiratory rate Body temperature Oxygen saturation Oxygen saturation in Arterial blood by Pulse oximetry Systolic And Diastolic Provider Name and Address Organization Details Last Updated DateTime 4 179.83 cm 70 /min 18 /min 98 [degF] 98 % 98 % 132/75 mm[Hg] ISABEL SAUNDERS NP [address] [facility], [address], [place], [address], [facility] 4 15:05:47 Date Recorded Body height Body mass index (BMI) Body weight Heart rate Respiratory rate Body temperature Oxygen saturation Oxygen saturation in Arterial blood by Pulse oximetry Systolic And Diastolic Provider Name and Address Organization Details Last Updated DateTime 4 179.83 cm 28.2 kg/m2 75468.0 7 g 77 /min 18 /min 98 [degF] 98 % 98 % 132/75 mm[Hg] Janice Mitchell MD [address] [facility], [facility] [address], [place], [address], [facility] 4 15:06:09 Social History Question Answer Notes LastModified by Organizat ion Details LastModified Time Tobacco Smoking Status Current Every Day Smoker Oksana Lennon NP [address] [facility], [address], [place], [address], [facility] 08/22/2024 17:36:42 What Is Your Code Status? Full Code Information not available 08/22/2024 Where Do You Live? Apartment Information not available 08/22/2024 Do You Have A Medical Power Of Supervisor Sample Preparation? Yes Has HCP [email or web address] Information not available 08/23/2024 What Was The Date Of Your Most Recent Tobacco Screening? 08/22/2024 Information not available 08/22/2024 Do You Have An Out Of Hospital DNR? Yes [email or web address] Information not available 08/23/2024 What Is Your [...] Recorded Time Tdap 09/04/2023 completed Bri Mccall [facility] 10/04/2024 14:59:23 influenza, unspecified formulation 06/27/2022 completed Brimoses Mccall [facility] 10/04/2024 14:59:38 influenza, unspecified formulation 06/26/2023 completed Bri [facility] 10/04/2024 14:59:46 SARS-COV-2 (COVID-19) vaccine, UNSPECIFIED 10/16/2020 completed Bri [facility] 10/04/2024 15:00:00 SARS-COV-2 (COVID-19) vaccine, UNSPECIFIED 11/06/2020 completed Bri [facility] 10/04/2024 15:00:07 SARS-COV-2 (COVID-19) vaccine, UNSPECIFIED 06/02/2021 completed Bri [facility] 10/04/2024 15:00:15 SARS-COV-2 (COVID-19) vaccine, UNSPECIFIED 06/27/2022 completed Bri [facility] 10/04/2024 15:00:22 SARS-COV-2 (COVID-19) vaccine, UNSPECIFIED 06/26/2023 completed [facility] 10/04/2024 15:00:37 Past Encounters Encounter ID Performer Location Encounter Start Date Encounter Closed Date Diagnosis/Indication Diagnosis SNOMED-CT Code Diagnosis ICD10 Code Diagnosis IMO Codes Diagnosis Note [id number] Oksana Lennon NP [address] [address] 08/22/2024 14:49:44 08/23/2024 10:31:07 Adult failure to thrive syndrome 137594964 R62.7 supportive carept /ot eval and treat for rom, mobility, strengthen ing, gait, balancemon itor for need to adjust careplan Hypertensive disorder 38 766548 I10 amlodipine 10 mg po qdmetoprol ol xl 100 mg po qdhydralaz ine 50 tidmonitor bp and need to adjust Hyperkalemia 62220685 E8 7.5 renal diet, low potassiuml okelma 10 g qdsodium bicarb 650 mg po bidcbc and bmp weekly x 3 weeks Chronic ki dney disease stage 4 880276118 N18.4 renal diet, low potassiumw as educated in hospital about diet, cont here with dieticainb aseline 2.5-3lokel ma 10 g qdsodium bicarb 650 mg po bidfu with nephrology Dr Perez ? Dr Mc 2 weeks Peripheral vascular disease 741383032 I73.9 with BKA Right and [address] and severe vascuopath yxarelto 2.5 mg po bidoxycodo ne 5 mg po q 8 hours prn paintyl prnPT/OT eval and treatfu plan:[facility] [address] [facility] 12/3 3pm and 330 pm and 09/08 1:30 pmwill leave open to air for nowmonitor for s/s of infection Type 2 kishor betes mellitus 90102972 E11.21 farxiga 10 mg po qdlispro tid ac SSImonitor BS and adjust as needed Benign pro static hyperplasia 535981520 N40.0 tamsulosin 0.4 mg po dailyfinas teride 5 mg po qdmonitor Hyperlipidemia 38719303 E78.5 atorvastat in 10 mg po qdaspirin 81 mg po qdmonitor Smoker 96488931 F17.200 pt is chronic smokereduc ated 3-10 minutes and refuses NRT or to quitplan is to continue smokingmon itor for readiness to quit with chronic disease [id number] Janice Mitchell MD [address] [address] 08/23/2024 19:50:37 08/29/2024 13:25:12 Adult failure to thrive syndrome 862954794 R62.7 PT/OT as above.Astrid tor mood and po intake.Psy ch consult prn Hypertensive disorder 38 956666 I10 Some borderline SBPs since here, but diastolics all low normal or low.No change in meds for nowContinu e amlodipine 10 mg qd, metoprolol succinate 100 mg qd, and hydralazin e 50 mg TID.Monito r BP and labs Hyperkalemia 51944645 E8 7.5 In good control on current regimen.Co ntinue renal diet, Lokelma 10 g qd and sodium bicarb 650 mg BID.Monito r labs. Chronic ki dney disease stage 4 680024999 N18.4 At baseline.C ontinue to avoid nephrotoxi c meds as able.Monit or labs.Renal f/u as planned. Peripheral vascular disease 589084637 I73.89 Z89.511 Recovering well from BKA on [...] this week. Type 2 kishor betes mellitus 49727084 E11.21 Sugars in good control since here.Last HgA1C was 7.4 in 03/2024, and 6.4 on 08/22/24.C ontinue Farxiga 10 mg qd and SSI.Monito r fingerstic ks TID and HgA1C q 3 months. Benign pro static hyperplasia 630634613 N40.0 No current sxs.Contin ue tamsulosin 0.4 mg qd and finasterid e 5 mg qdMonitor urinary function. Hyperlipidemia 76824240 E78.49 Continue atorvastat in 10 mg qd and ASA 81 mg qdMonitor labs as outpt. Smoker 43103031 F17.213 Earlier told someone he was jonesing for a cigarette , but tells me he is considerin g quitting.N ot interested in NRT, says he has had bad rxns.Sole nue to encourage cessation. [id number] Oksana Lennon NP [address] [address] 09/08/2024 12:24:42 09/12/2024 13:04:51 Peripheral vascular disease 196143464 I73.89 Z89.511 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, but having trouble with amp emotionall y and trouble caring for himself.co ntPT/OT for strengthen ing, balance, gait training, safety and function.a [facility] [place] ontinue fall precaution s.Monitor for safety.Con tinueXarel to 2.5 mg BID for DVT prophylaxi s.oxycodon e 5 mg q 8 hrs prnAPAP 650 mg q 4 hrs prn.F/U with vascular as planned.Mo nitor incision, healed in today09/08 rehan ordered and faxed to [facility] with appt 09/15fu in spring for further testing of left leg Adult fail ure to thrive syndrome 893853585 R62.7 PT/OT as above.Astrid tor mood and po intake.Psy ch consult prn Hypertensive disorder 38 845394 I10 bp stableCont inueamlodi pine 10 mg qdmetoprol ol succinate 100 mg qd,hydrala zine 50 mg TID.Monito r BP and labs Hyperkalemia 54233664 E8 7.5 In good control on current regimen.Co ntinue renal diet (low k)Lokelma 10 g qdsodium bicarb 650 mg BID.Monito r labs. not done this week, will reorder Chronic ki dney disease stage 4 008627905 N18.4 At baseline.C ontinue to avoid nephrotoxi c meds as able.monit or bmp for increased kcont sodium bicarbonat e bidMonitor labs.Renal f/u as planned. Type 2 kishor betes mellitus 74024335 E11.21 BS stableLast HgA1C was 7.4 in 03/2024, and 6.4 on 08/22/24.C ontinueFar xiga 10 mg qd and SSI.Monito r fingerstic ks TID and HgA1C q 3 months. Benign pro static hyperplasia 419313076 N40.0 No current sxs.Contin uetamsulos in 0.4 mg qd and finasterid e 5 mg qdMonitor urinary function. Hyperlipidemia 77630641 E78.49 Continueat orvastatin 10 mg qd and ASA 81 mg qdMonitor labs as outpt. Smoker 14765972 F17.213 continues to smokeNot interested in NRT, says he has had bad rxns.educsilvestre tate on smoking cessationC ontinue to encourage cessation. [id number] Oksana Lennon NP [facility] [place] [address] 09/14/2024 14:33:03 09/16/2024 14:16:40 Peripheral vascular disease 962732667 I73.89 Z89.511 Recovering well from BKA on [...] prn Adult fail ure to thrive syndrome 650256916 R62.7 Monitor mood and intakePsyc h consult prn Hypertensive disorder 38 370168 I10 bp stable hereContin ueamlodipi ne 10 mg qdmetoprol ol succinate 100 mg qd,hydrala zine 50 mg TID.Monito r BP and labs outpt with pcplabs ordered but not done, will attempt tomorrow again Hyperkalemia 76855619 E8 7.5 In good control on current regimen.Co ntinue renal diet (low k)Lokelma 10 g qdsodium bicarb 650 mg BID.Monito r labs. not done this week, will reorder for ed am again before dc(unclear why labs aren't done, question difficult stick? )fu with pcp Chronic ki dney disease stage 4 095563189 N18.4 At baseline.C ontinue to avoid nephrotoxi c meds as able.conts odium bicarbonat e bidMonitor labs outpt with pcpRenal f/u as planned. Type 2 kishor efrain mellitus 20139586 E11.21 BS stableLast HgA1C was 7.4 in 03/2024, and 6.4 on 08/22/24.C ontinueFar xiga 10 mg qd and SSI.Monito r fingerstic ks TID and HgA1C q 3 months Benign pro static hyperplasia 670908434 N40.0 No current sxs.Contin uetamsulos in 0.4 mg qd and finasterid e 5 mg qdMonitor urinary function Hyperlipidemia 50992018 E78.49 Continueat orvastatin 10 mg qd and ASA 81 mg qdMonitor labs with pcp prn Smoker 00753867 F17.213 continues to smokeNot interested in NRT, says he has had bad rxns.educsilvestre tate on smoking cessationC ontinue to encourage cessation [id number] [facility] [address] 09/21/2024 13:09:13 09/22/2024 12:24:03 Peripheral vascular disease 206692560 I73.89 Z89.511 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, but having trouble with amp emotionall y and trouble caring for himself.ov erall doing much better and healing in, incision closedCont inue fall precaution s.Monitor for safety.Con tinueXarel to 2.5 mg BID for DVT prophylaxi s.APAP 650 mg q 4 hrs prn.has digital retoucher and educated on need to use it so he can get prothetic soon.will fu with luu prothetics fu in spring for further testing of left leg with vascular outpt and prn Adult fail ure to thrive syndrome 156091959 R62.7 Monitor mood and intakePsyc h consult prn Hypertensive disorder 38 880709 I10 bp stable 118/64Cont inueamlodi pine 10 mg qdmetoprol ol succinate 100 mg qd,hydrala zine 50 mg TID.Monito r BP and labs outpt with pcp Hyperkalemia 48886748 E8 7.5 In good control on current regimen.Co ntinue renal diet (low k)Lokelma 10 g qdsodium bicarb 650 mg BID.Monito r labs.fu with renal Chronic ki dney disease stage 4 334910170 N18.4 At baseline.C ontinue to avoid nephrotoxi c meds as able.conts odium bicarbonat e bidRenal f/u as planned. Type 2 kishor betes mellitus 69636835 E11.21 BS stableHgA1 C was 7.4 in 03/2024, and 6.4 on 08/22/24 improvedCo ntinueFarx iga 10 mg qd and SSI.Monito r fingerstic ks TID and HgA1C q 3 months Benign pro static hyperplasia 117295511 N40.0 No current sxs.Contin uetamsulos in 0.4 mg qd and finasterid e 5 mg qdMonitor urinary function [id number] Oksana Lennon NP [address] [address] 09/22/2024 12:31:57 09/26/2024 12:28:42 Peripheral vascular disease 958482668 I73.89 Z89.511 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, but having trouble with amp emotionall y and trouble caring for himself.ov erall doing much better and healing in, incision closedCont inue fall precaution s.Monitor for safety.Con tinueXarel to 2.5 mg BID for DVT prophylaxi s.APAP 650 mg q 4 hrs prn.has digital retoucher and educated on need to use it so he can get prothetic soon.will fu with [facility] prosthetic sfu in spring for further testing of left leg with vascular outpt and prn Adult fail ure to thrive syndrome 806729587 R62.7 Monitor mood and intakePsyc h consult prn Hypertensive disorder 38 733765 I10 stableCont inueamlodi pine 10 mg qdmetoprol ol succinate 100 mg qd,hydrala zine 50 mg TID.Monito r BP and labs outpt with pcp Hyperkalemia 91409039 E8 7.5 In good control on current regimen.Co ntinue renal diet (low k)Lokelma 10 g qdsodium bicarb 650 mg BID.Monito r labs.fu with renalfu labs cbc and bmp 09/26 Chronic ki dney disease stage 4 807867551 N18.4 At baseline.C ontinue to avoid nephrotoxi c meds as able.conts odium bicarbonat e bidRenal f/u as planned. Type 2 kishor betes mellitus 63509496 E11.21 BS stableHgA1 C was 7.4 in 03/2024, and 6.4 on 08/22/24 improvedCo ntinueFarx iga 10 mg qd and SSI.Monito r fingerstic ks TID and HgA1C q 3 months Benign pro static hyperplasia 981426140 N40.0 No current sxs.Contin uetamsulos in 0.4 mg qd and finasterid e 5 mg qdMonitor urinary function Furuncle of buttock 1243 0003 L02.32 large abcess on posterior right upper buttock likely [id number] /19start cephalexin 500 mg po q 8 hours (will decrease from q6 hr dosing due to poor renal fx)x 7 days with probioticn s wash, pat dry, and apply foam dressing to areamonito r for s/s of infectionc bc and bmp on 09/26cons ider wound consult Angioedema of lip 626833 005 T78.3XXA pt with angioedema to only [...] distress, diff swallowing , or increased swelling [id number] [facility] [address] 09/23/2024 08:41:31 09/26/2024 14:26:31 Angioedema of lip 541443768 T78.3XXA pt with angioedema to only the [...] medication s if reoccurs Peripheral vascular disease 155896798 I73.89 Z89.511 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, but having trouble with amp emotionall y and trouble caring for himself.ov erall doing much better and healing in, incision closedCont inue fall precaution s.Monitor for safety.Con tinueXarel to 2.5 mg BID for DVT prophylaxi s.APAP 650 mg q 4 hrs prn.has digital retoucher and educated on need to use it so he can get prothetic soon.will fu with [facility] prosthetic sfu in spring for further testing of left leg with vascular outpt and prn Adult fail ure to thrive syndrome 933668961 R62.7 Monitor mood and intakePsyc h consult prn Hypertensive disorder 38 789072 I10 stableCont inueamlodi pine 10 mg qdmetoprol ol succinate 100 mg qd,hydrala zine 50 mg TID.Monito r BP and labs outpt with pcp Hyperkalemia 57812615 E8 7.5 In good control on current regimen.Co ntinue renal diet (low k)Lokelma 10 g qdsodium bicarb 650 mg BID.Monito r labs.fu with renalfu labs cbc and bmp 09/26 Chronic ki dney disease stage 4 266458168 N18.4 At baseline.C ontinue to avoid nephrotoxi c meds as able.conts odium bicarbonat e bidRenal f/u as planned. Type 2 kishor betes mellitus 66775875 E11.21 BS stableHgA1 C was 7.4 in 03/2024, and 6.4 on 08/22/24 improvedCo ntinueFarx iga 10 mg qd and SSI.Monito r fingerstic ks TID and HgA1C q 3 months Benign pro static hyperplasia 199456040 N40.0 No current sxs.Contin uetamsulos in 0.4 mg qd and finasterid e 5 mg qdMonitor urinary function Carbuncle of buttock 762 21047 L02.33 large golf ball size abcess on [...] to assess renal func and for infection [id number] Janice Mitchell MD [address] [address] 09/26/2024 19:01:26 09/27/2024 08:53:46 Carbuncle of buttock 79256390 L02.33 Improving. Continue cephalexin 500 mg q 8 hrs until 09/29 with probiotic BID.Contin ue wound care as ordered.To be seen by wound care in AM before d/c.F/U with PCP as outpt. Angioedema of lip 382391 005 T78.3XXA ResolvedFi brandon prednisone taper.Astrid tor for recurrence . Peripheral vascular disease 807237461 I73.89 Z89.511 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.Cont inue Xarelto 2.5 mg BID for DVT prophylaxi s (not sure how long he needs to be on this).Cont inue APAP 650 mg q 4 hrs prn.No longer needing Oxy.Contin ue digital retoucher and f/u with prosthetis t as planned.F/ U with vascular as planned. Adult fail ure to thrive syndrome 696672033 R62.7 Much improved.F /U with PCP as outpt. Hypertensive disorder 38 107936 I10 In good control.Co ntinue amlodipine 10 mg qd, metoprolol succinate 100 mg qd, and hydralazin e 50 mg TID.F/U with PCP as outpt. Hyperkalemia 25380180 E8 7.5 Remains WNL, but sl. higher than 09/15, likely due to UMAIR.Contin ue renal diet (low k)Continue NaHCO3 as above and Lokelma 10 gms qdWill order repeat labs for 09/29 with VNA. Chronic ki dney disease stage 4 659232025 N18.4 With sig worsening today compared to 09/15Enc raged pt to drink more fluids.Con tinue to avoid nephrotoxi c meds as able.Sole nue sodium bicarbonat e 650 mg BID.Renal f/u as planned. Type 2 kishor betes mellitus 81602261 E11.21 BS mostly in ood control since here with occ high readingHgA 1C was 7.4 in 03/2024, and 6.4 on 08/22/24 improvedCo ntinue Farxiga 10 mg qd and SSI.F/U with PCP as outpt. Benign pro static hyperplasia 764181708 N40.0 No sxs. since here.Sole nue tamsulosin 0.4 mg qd and finasterid e 5 mg qdF/U with PCP as outpt. Hyperlipidemia 72029035 E78.49 Continue atorvastat in 10 mg qd and ASA 81 mg qdMonitor labs as outpt. Smoker 81943681 F17.213 Has been smoking since here.Refus ed NRT.Contin ue to encourage cessation. [id number] ISABEL SAUNDERS, TANYA [address] [address] 09/29/2024 15:04:27 09/30/2024 12:02:02 Chronic kidney disease stage 4 170487623 N18.4 With sig worsening 09/26 compared to 09/15Enc rage fluids.Con tinue to avoid nephrotoxi c meds as able.Follo w up with Nephrology as sched.Cont inue sodium bicarbonat e 650 mg BID.CMP in am Hyperkalemia 84793362 E8 7.5 Remains WNL, but sl. higher than 09/15, likely due to UMAIR.Contin ue renal diet (low k)Continue NaHCO3 as above and Lokelma 10 gms qdWill order repeat labs for 09/30 Peripheral vascular disease 201665331 I73.89 Z89.511 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.Cont inue Xarelto 2.5 mg BID for DVT prophylaxi s (not sure how long he needs to be on this).Cont inue APAP 650 mg q 4 hrs prn.No longer needing Oxy.Contin ue digital retoucher and f/u with prosthetis t as planned.F/ U with vascular as planned. Carbuncle of buttock 762 49333 L02.33 Improving. Continue cephalexin 500 mg q 8 hrs until complete, as well as probiotic BID.Contin ue wound care as ordered.To be seen by wound care in AM before d/c.F/U with PCP as outpt. Angioedema of lip 992407 005 T78.3XXA ResolvedFi brandon prednisone taper.Astrid tor for recurrence . Adult fail ure to thrive syndrome 208311783 R62.7 Much improved.F /U with PCP as outpt. Hypertensive disorder 38 143782 I10 In good control.Co ntinue amlodipine 10 mg qd, metoprolol succinate 100 mg qd, and hydralazin e 50 mg TID.F/U with PCP as outpt. Type 2 kishor betes mellitus 20826657 E11.21 BS mostly in good control since here with occ. high readingHgA 1C was 7.4 in 03/2024, and 6.4 on 08/22/24 improvedCo ntinue Farxiga 10 mgBS bid once a week and prnF/U with PCP as outpt. Benign pro static hyperplasia 323853929 N40.0 No sxs. since here.Sole nue tamsulosin 0.4 mg qd and finasterid e 5 mg qdF/U with PCP as outpt. Hyperlipidemia 50576038 E78.49 Continue atorvastat in 10 mg qd and ASA 81 mg qdMonitor labs as outpt. Smoker 32533575 F17.213 Has been smoking since here.Refus ed NRT.Contin ue to encourage cessation. [id number] [facility] [address] 09/30/2024 14:58:21 10/03/2024 12:45:37 Chronic kidney disease stage 4 575414607 N18.4 With sig worsening on 09/26 compared to t was going to drink more fluids at home and he says he did.Contin ue to avoid nephrotoxi c meds as able.Sole nue sodium bicarbonat e 650 mg BID.Renal f/u as planned.La bs were to be rechecked today, but pt refused.Pr omises he will allow lab draw on Wednesday 10/03. Hyperkalemia 68196785 E8 7.5 Remains WNL, but was sl. higher on 09/26 than 09/15, likely due to UMAIR.Contin ue renal diet (low k)Continue NaHCO3 as above and Lokelma 10 gms qdLabs on 10/03 as above. Peripheral vascular disease 200997182 I73.89 Z89.511 Has recovered well from BKA on 07/21.Cont inue Xarelto 2.5 mg BID for DVT prophylaxi s (not sure how long he needs to be on this).Cont inue APAP 650 mg q 4 hrs prn.Contin ue digital retoucher and f/u with prosthetis t as planned.F/ U with vascular as planned. Carbuncle of buttock [id number] 81638 L02.33 Improving per pt.Wound care note from 09/27 not scanned in to PCC yet.Contin ue cephalexin 500 mg q 8 hrs until 10/02 with probiotic BID.Contin ue wound care as ordered.F/ U with wound care weekly until healed. Angioedema of lip 195365 005 T78.3XXA ResolvedHa s completed prednisone taper.Astrid tor for recurrence . Adult fail ure to thrive syndrome [id number] R62.7 Much improved.C ontinue liquid protein 30 mg qd to help with wound healing.En courage healthy eating. Hypertensive disorder 38 956952 I10 Remains in good control.Co ntinue amlodipine 10 mg qd, metoprolol succinate 100 mg qd, and hydralazin e 50 mg TID.Monito r BP and labs. Type 2 kishor betes mellitus 97295024 E11.21 Very good since return, all <150.HgA1C was 7.4 in 03/2024, and 6.4 on 08/22/24.C ontinue Farxiga 10 mg qd and SSI.If sugars remain <200 consistent ly can change TID fingerstic ks to qAM. Benign pro static hyperplasia 709567251 N40.0 No sxs. since here.Sole nue tamsulosin 0.4 mg qd and finasterid e 5 mg qdMonitor urinary function. Hyperlipidemia 98244769 E78.49 Continue atorvastat in mg qd and ASA 81 mg qdMonitor labs yearly. Smoker 98125887 F17.213 Continues to smoke.Cont inues to refuse NRT.Contin ue to encourage cessation. [id number] Oksana Lennon NP [place] [address] [place] [address] 10/13/2024 10:10:33 10/14/2024 10:47:39 Chronic kidney disease stage 4 [id number] N18.4 With sig worsening on 09/26 compared to t was going to drink more fluids at home and he says he did.Contin ueavoid nephrotoxi c meds as able.sodiu m bicarbonat e 650 mg BID.Renal f/u as planned.La bs ordered for bmp and cbc on 10/19 on thu x 2labs as above Hyperkalemia 32002056 E8 7.5 Remains WNL, but was sl. higher on 09/26 than 09/15, likely due to UMAIR.Contin uerenal diet (low k)NaHCO3 as aboveStephaniekel ma 10 gms qdLabs on 10/03 as above.bmp and cbc 10/19 ordered Peripheral vascular disease 853076501 I73.89 Z89.511 Has recovered well from r BKA on 07/21.plan for prothetic on 10/21 per pt.Continu eXarelto 2.5 mg BID for DVT prophylaxi s (not sure how long he needs to be on this).Cont inue APAP 650 mg q 4 hrs prn.Contin ue digital retoucher and f/u with prosthetis t as planned.F/ U with vascular as planned. Carbuncle of buttock 762 33864 L02.33 Improving per pt.mostly healedCont inuecomple lea cephalexin 500 mg q 8 hrs until 10/02 with probiotic BID.Contin ue wound care as ordered.F/ U with wound care weekly until healed.ratna l order zinc cream to right upper abcess buttock qd until healedmoni tor for s/s of infection Adult fail ure to thrive syndrome 520054677 R62.7 Much improved.E ncourage healthy eating. Hypertensive disorder 38 425129 I10 Remains in good control.Co ntinueamlo dipine 10 mg qd, metoprolol succinate 100 mg qd, and hydralazin e 50 mg TID.Monito r BP and labs. Type 2 kishor betes mellitus 38730918 E11.21 Very good since return, all <150.HgA1C was 7.4 in 03/2024, and 6.4 on 08/22/24.C ontinue Farxiga 10 mg qd and SSI.If sugars remain <200 consistent ly can change TID fingerstic ks to qAM. Benign pro static hyperplasia 341860782 N40.0 No sxs. since here.Sole nuetamsulo sin 0.4 mg qd and finasterid e 5 mg qdMonitor urinary function. Hyperlipidemia 82896051 E78.49 Continueat orvastatin 10 mg qd and ASA 81 mg qdMonitor labs yearly. Smoker 25889285 F17.213 Continues to smoke.spen t 3-10 min on education and NRT therapy, he is willing to try nicorette gumnicoret te gum 4 mg po q 3 hours prn cravingsCo ntinue to encourage cessation. [id number] Oksana Lennon NP [address] [address] 10/21/2024 09:04:51 10/24/2024 16:33:36 Peripheral vascular disease 946655650 I73.89 Z89.511 Has recovered well from r BKA on 07/21.plan for prosthetic on 10/21 per pt.Continu eXarelto 2.5 mg BID for DVT prophylaxi s (not sure how long he needs to be on this).APAP 650 mg q 4 hrs prn.shrink er and f/u with prosthetis t as planned.F/ U with vascular as planned outpt in the spring Chronic dney disease stage 4 [id number] N18.4 With sig worsening on 09/26 compared to t was going to drink more fluids at home and he says he did.Contin ueavoid nephrotoxi c meds as able.sodiu m bicarbonat e 650 mg BID.Renal f/u as planned.la bs as above, and reordered Smoker 97702295 F17.213 Continues to smoke.jm rette gum 4 mg po q 3 hours prn cravingsCo ntinue to encourage cessation. Carbuncle of buttock 762 28709 L02.33 resolvedco mpleted cephalexin 500 mg q 8 hrs until 10/02 with probiotic BID..will order zinc cream to right upper abcess buttock qd until healedmoni tor for s/s of infection Hyperkalemia 67594327 E8 7.5 Remains WNL, but was sl. higher on 09/26 than 09/15, likely due to UMAIR.Contin uerenal diet (low k)NaHCO3 as aboveLokel ma 10 gms qdbmp and cbc weekly for one more lab Adult fail ure to thrive syndrome 411314778 R62.7 Much improved and seems to be doing better with plan for BKA soonEncour age healthy eating. Hypertensive disorder 38 743251 I10 Remains in good control.Co ntinueamlo dipine 10 mg qdmetoprol ol succinate 100 mg qdhydralaz ine 50 mg TID.Monito r BP and labs. Type 2 kishor betes mellitus 20735937 E11.21 Very good since return, all <150.HgA1C was 7.4 in 03/2024, and 6.4 on 08/22/24.C ontinue Farxiga 10 mg qd and SSI.If sugars remain <200 consistent ly can change TID fingerstic ks to qAM. Benign pro static hyperplasia 113870596 N40.0 No sxs. since here.Sole nuetamsulo sin 0.4 mg qd and finasterid e 5 mg qdMonitor urinary function. Hyperlipidemia 45910838 E78.49 Continueat orvastatin 10 mg qd and ASA 81 mg qdMonitor labs yearly. Angioedema of lip 691008 005 T78.3XXA ResolvedHa s completed prednisone taper.Astrid tor for recurrence . [id number] Oksana Lenn[facility] [place] [address] [place] [address] 11/11/2024 08:19:31 11/15/2024 13:47:34 Peripheral vascular disease 101051627 I73.89 Z89.511 Has recovered well from r [...] the spring Chronic dney disease stage 4 512630763 N18.4 With CKD at baselineCo ntinueavoi d nephrotoxi c meds as able.sodiu m bicarbonat e 650 mg BID.Renal f/u as planned ouitptfu with pcp outpt and renal outpt Smoker 38423136 F17.213 Continues to smoke.jm rette gum 4 mg po q 3 hours prn cravingsCo ntinue to encourage cessation outpt Carbuncle of buttock 762 99371 L02.33 resolvedco mpleted cephalexin 500 mg q 8 hrs until 10/02 with probiotic BID..will order zinc cream to right upper abcess buttock qd until healedmoni tor for s/s of infection outpt with pcp Hyperkalemia 93936266 E8 7.5 Remains WNLContinu erenal diet (low k)NaHCO3 as aboveLokel ma 10 gms qdlabs outpt with pcp Adult fail ure to thrive syndrome 774791744 R62.7 Much improved and seems to be doing better with plan for BKA soonEncour age healthy eating outpt Hypertensive disorder 38 878750 I10 Remains in good control, bp high this am but has not got his bp meds yet todayConti nueamlodip ine 10 mg qdmetoprol ol succinate 100 mg qdhydralaz ine 50 mg TID.Monito r BP and labs outpt with pcp Type 2 kishor betes mellitus 45844994 E11.21 Very good since return, mostly <150.HgA1C was 7.4 in 03/2024, and 6.4 on 08/22/24.C ontinueFar xiga 10 mg qd and SSI.If sugars remain <200 consistent ly can change TID fingerstic ks to qAM.monito r outpt with pcp outpt Benign pro static hyperplasia 190423853 N40.0 No sxs. since here.Sole nuetamsulo sin 0.4 mg qdfinaster paula 5 mg qdMonitor urinary function outpt with pcp Hyperlipidemia 17758414 E78.49 Continueat orvastatin 10 mg qdASA 81 mg qdMonitor labs with pcp prn Angioedema of lip 239657 005 T78.3XXA Resolvedwa s never on sarita [...] (MEDICARE REPLACEMENT/ADV ANTAGE - PPO) Renato Hinson [id number] Renato Hnison Notes Date Note Type Note Provider Name and Address Organization Details Recorded Time 09/29/2024 text/html Renato is seen today for initial intake. He is a 64 yo man, just discharged from [facility] 09/27. returned him to the facility [...] had f/u set up with PCP/renal and wrapper sizer.He developed an abscess of his low back/upper [...] and cigarette smoker. ISABEL SAUNDERS NP [address] [facility], [address], [place], [address], [facility] [employer] 09/29/2024 15:14:57 09/30/2024 text/html This is a [...] HLD, and cigarette smoker. Janice Mitchell MD [address] [place] [address], [address], [place], [address], [facility] [employer] [facility] 09/30/2024 16:14:41 10/13/2024 text/html Pt is seen [...] a few times. Oksana Lennon, TANYA [address] [facility], [address], [place], [address], [facility] [employer] 10/13/2024 10:38:23 10/21/2024 text/html Pt is seen for a 90 day routine rounding visit today. His PMH includes HTN, severe PVD s/p right BKA on 07/21/24, AODM with neuropathy, CKD stage 4, hx of Hep C from tattoo, latent Tb (txed in 2020), HLD, and cigarette smoker. Renato is 64 yo man here at [facility] for re[facility] who d/c'd [...] resolved with abx. He has received his digital retoucher and site of BKA well healed. His prosthetic should be in this week. He is aware he should stay a few days to make should he has proper training and guidance to use the prosthetic here with therapy and then consider dc home. On exam, he is seen lying in bed in [facility]. He is excited to get his prosthetic this week and get back to his old life. He denies any new concerns. Unclear if weight is accurate at 182 lbs this week which would be down form 198 lbs on admission. Will have another weight done. Denies any vomiting or decreased eating today. Oksana Lennon, TANYA [address] [facility], [address], [place], [address], [facility] [employer] 10/21/2024 17:16:46 11/11/2024 text/html Pt is seen for a discharge summary. His PMH includes HTN, severe PVD s/p right BKA on 07/21/24, AODM with neuropathy, CKD stage 4, hx of Hep C from tattoo, latent Tb (txed in 2020), HLD, and cigarette smoker. Renato is 64 yo man here at [facility] for [facility] who d/c'd [...] resolved with abx. He has received his digital retoucher and site of BKA well healed. He [...] the prosthetic place on Thursday morning. His digital retoucher is applied at this visit and he is aware the digital retoucher is almaraz to wear to keep the swelling down. On exam, He states he is going home with , has walker and cane, and will be just fine . He denies any other complaints or concerns. Lung CTA in NAD. Oksana Lennon NP [address] [facility], [address], [place], [address], [facility] - [employer] 11/11/2024 08:43:30
--- OUTSIDE RECORDS SUMMARY | 2025-08-17 08:02 | XMS_ITS | Encounter Summary ---
Author Organization [facility] Address [address] [place] [address] Care Team Providers Care Manufacturing Project Manager Name Role Phone Travis Au MD Primary Care Provider [phone] Encounter Details Date Type Department Care Team (Latest Contact Info) Description 11/29/2024 Lab Requisition [facility] - Main Lab [address] [facility] [place] [address] Brandon Mckeon MD [address] [place] [address] Type 2 diabetes mellitus without [...] V28) documented in this encounter Care Teams Manufacturing Project Manager Relationship Specialty Start Date End Date Travis Au MD [address] [facility] [address] [place], [phone] PCP - General Family Medicine 08/22/24 documented as of this encounter
--- OUTSIDE RECORDS SUMMARY | 2025-08-17 08:02 | XMS_ITS | Encounter Summary ---
Author Organization [facility] Address [address] [place] [address] Care Team Providers Care Electrophysiology Tech Name Role Phone Travis Au MD Primary Care Provider [phone] Encounter Details Date Type Department Care Team (Late st Contact Info) Description 09/24/2024 Lab Requisition [facility] - Main Lab [address] [place] [address] Travis Au MD [address] [place] [address] 204 [facility] [address] Chronic kidney disease, unspecified Social History [...] LAB CHEMISTRY METHOD 09/26/2024 10:13 AM EST [facility] Potassium 5.0 3.5 - 5.5 mmol/L LAB CHEMISTRY METHOD 09/26/2024 10:[address] [facility] Chloride 107 96 - 110 mmol/L LAB CHEMISTRY METHOD 09/26/2024 10:13 AM [facility] LAB CO2 20(L) 21 - 32 mmol/L LAB CHEMISTRY METHOD 09/26/2024 10:13 AM [facility] LAB Anion Gap 8 3 - 11 LAB CHEMISTRY METHOD 09/26/2024 10:13 AM [facility] LAB Glucose 169(H) 70 - 100 mg/dL LAB CHEMISTRY METHOD 09/26/2024 10:13 AM [facility] LAB BUN 74(H) 5 - 25 mg/dL LAB CHEMISTRY METHOD 09/26/2024 10:13 AM [facility] LAB Creatinine 3.72(H) 0.70 - 1.30 mg/dL LAB CHEMISTRY METHOD 09/26/2024 10:13 AM [facility] LAB eGFR 17(L) >=60 mL/min/1. 73m2 LAB CHEMISTRY METHOD 09/26/2024 10:13 AM [facility] LAB Comment:Calculation based on the Chronic Kidney Disease Epidemiology Collaboration (CKD-EPI) equation refit without adjustment for race. BUN/Creatinine Ratio 19.9 LAB CHEMISTRY METHOD 09/26/2024 10:13 AM [facility] LAB Calcium 8.4(L) 8.5 - 10.5 mg/dL LAB CHEMISTRY METHOD 09/26/2024 10:13 AM [facility] LAB Blood Venous blood specimen / Unknown Venipuncture / Unknown 09/26/2024 5:22 AM EST 09/26/2024 9:31 AM EST us Travis Au MD LAB BLOOD ORDERABLES Final Resul t [facility] [address] [place] [address], * (ABNORMAL) Complete blood count (09/26/2024 5:22 AM EST) [facility] WBC 12.6(H) 4.8 - 10.8 K/mcL LAB HEMETOLOGY METHOD 09/26/2024 9:44 AM [facility] LAB RBC 2.90(L) 4.50 - 5.50 M/mcL LAB HEMETOLOGY METHOD 09/26/2024 9:44 AM [facility] LAB Hemoglobin 8.6(L) 13.5 - 17.5 g/dL LAB HEMETOLOGY METHOD 09/26/2024 9:44 AM [facility] LAB Hematocrit 26.7(L) 42.0 - 54.0 % LAB HEMETOLOGY METHOD 09/26/2024 9:44 AM [facility] MCV 93.0 79.0 - 98.0 FL LAB HEMETOLOGY METHOD 09/26/2024 9:44 AM [facility] LAB MCH 30.0 27.0 - 32.0 pcg LAB HEMETOLOGY METHOD 09/26/2024 9:44 AM [facility] LAB MCHC 32.2 32.0 - 37.0 g/dL LAB HEMETOLOGY METHOD 09/26/2024 9:44 AM [facility] LAB RDW 12.9 11.0 - 15.0 % LAB HEMETOLOGY METHOD 09/26/2024 9:44 AM [facility] LAB Platelets 289 130 - 400 K/mcL LAB HEMETOLOGY METHOD 09/26/2024 9:44 AM [facility] LAB MPV 10.6 7.0 - 11.0 FL LAB HEMETOLOGY METHOD 09/26/2024 9:44 AM [facility] LAB NRBC 0.0 <1.0 % LAB HEMETOLOGY METHOD 09/26/2024 9:44 AM [facility] LAB NRBC Absolute 0.00 <0.10 K/mcL LAB HEMETOLOGY METHOD 09/26/2024 9:44 AM [facility] LAB Blood Venous blood specimen / Unknown Venipuncture / Unknown 09/26/2024 5:22 AM EST 09/26/2024 9:31 AM EST us Travis Au MD LAB BLOOD ORDERABLES Final Resul t [facility] [address] [place] [address], documented in this encounter Visit Diagnoses Diagnosis Chronic kidney disease, unspecified documented in this encounter Care Teams Electrophysiology Tech Relationship Specialty Start Date End Date Travis Au MD [address] [place] [address], [phone] PCP - General Family Medicine 08/22/24 documented as of this encounter
--- OUTSIDE RECORDS SUMMARY | 2025-08-17 08:02 | XMS_ITS | Encounter Summary ---
Author Organization [facility] Address [address] [place] [address] Care Team Providers Care Supervisor Beam Department Name Role Phone Travis Au MD Primary Care Provider [phone] Encounter Details Date Type Department Care Team (Late st Contact Info) Description 08/22/2024 Lab Requisition [facility] - Main Lab [address] [facility] [place] [address] Travis Au MD [address] [place] [address] 204 [facility] [address] Type 2 diabetes mellitus without complications [...] * Hemoglobin A1c (08/22/2024 5:16 AM EST) [facility] Hemoglobin A1C 6.4 <6.5 % LAB CHEMISTRY METHOD 08/23/2024 7:38 PM EST [facility] LAB Mean Bld Glu Estim. 137 mg/dL LAB CHEMISTRY METHOD 08/23/2024 7:38 PM EST [facility] Blood Venous blood specimen / Unknown 08/22/2024 5:16 AM EST 08/22/2024 7:59 AM EST us Travis Au MD LAB BLOOD ORDERABLES Final Resul t [facility] [address] [place] [address], [place] [phone] * (ABNORMAL) CBC auto differential (08/22/2024 5:16 AM EST) [facility] WBC 7.0 4.8 - 10.8 K/mcL LAB HEMETOLOGY METHOD 08/22/2024 8:13 AM [facility] LAB RBC 3.30(L) 4.50 - 5.50 M/mcL LAB HEMETOLOGY METHOD 08/22/2024 8:13 AM [facility] LAB Hemoglobin 9.8(L) 13.5 - 17.5 g/dL LAB HEMETOLOGY METHOD 08/22/2024 8:13 AM [facility] LAB Hematocrit 31.2(L) 42.0 - 54.0 % LAB HEMETOLOGY METHOD 08/22/2024 8:13 AM [facility] LAB MCV 94.8 79.0 - 98.0 FL LAB HEMETOLOGY METHOD 08/22/2024 8:13 AM [facility] LAB MCH 29.8 27.0 - 32.0 pcg LAB HEMETOLOGY METHOD 08/22/2024 8:13 AM [facility] LAB MCHC 31.4(L) 32.0 - 37.0 g/dL LAB HEMETOLOGY METHOD 08/22/2024 8:13 AM [facility] LAB RDW 13.2 11.0 - 15.0 % LAB HEMETOLOGY METHOD 08/22/2024 8:13 AM [facility] LAB Platelets 232 130 - 400 K/mcL LAB HEMETOLOGY METHOD 08/22/2024 8:13 AM [facility] MPV 10.9 7.0 - 11.0 FL LAB HEMETOLOGY METHOD 08/22/2024 8:13 AM [facility] NRBC 0.0 <1.0 % LAB HEMETOLOGY METHOD 08/22/2024 8:13 AM [facility] NRBC Absolute 0.00 <0.10 K/mcL LAB HEMETOLOGY METHOD 08/22/2024 8:13 AM [facility] Neutrophils Relative 61.3 % LAB HEMETOLOGY METHOD 08/22/2024 8:13 AM [facility] Lymphocytes Relative 24.5 % LAB HEMETOLOGY METHOD 08/22/2024 8:13 AM [facility] Monocytes Relative 5.9 % LAB HEMETOLOGY METHOD 08/22/2024 8:13 AM [facility] Eosinophils Relative 6.6 % LAB HEMETOLOGY METHOD 08/22/2024 8:13 AM [facility] Basophils Relative 1.3 % LAB HEMETOLOGY METHOD 08/22/2024 8:13 AM [facility] Immature Granulocytes Relative 0.4 % LAB HEMETOLOGY METHOD 08/22/2024 8:13 AM [facility] Neutrophils Absolute 4.29 1.50 - 7.00 K/mcL LAB HEMETOLOGY METHOD 08/22/2024 8:13 AM EST [facility] Lymphocytes Absolute 1.71 1.00 - 5.00 K/[facility] LAB HEMETOLOGY METHOD 08/22/2024 8:13 AM EST [facility] Monocytes Absolute 0.41 0.20 - 1.00 K/[facility] LAB HEMETOLOGY METHOD 08/22/2024 8:13 AM EST [facility] Eosinophils Absolute 0.46 0.00 - 0.50 K/[facility] LAB HEMETOLOGY METHOD 08/22/2024 8:13 AM EST [facility] Basophils Absolute 0.09 0.00 - 0.20 K/[facility] LAB HEMETOLOGY METHOD 08/22/2024 8:13 AM [facility] Immature Granulocytes Absolute 0.03 0.00 - 0.03 K/[facility] LAB HEMETOLOGY METHOD 08/22/2024 8:13 AM EST [facility] Blood Venous blood specimen / Unknown Venipuncture / Unknown 08/22/2024 5:16 AM EST 08/22/2024 7:22 AM EST us Travis Au MD LAB BLOOD ORDERABLES Final Resul t [facility] [address] [place] [address], * (ABNORMAL) Comprehensive metabolic panel (08/22/2024 5:16 AM EST) Sodium 139 133 - 145 mmol/L LAB CHEMISTRY METHOD 08/22/2024 9:02 AM EST [facility] Potassium 4.2 3.5 - 5.5 mmol/L LAB CHEMISTRY METHOD 08/22/2024 9:02 AM [facility] Chloride 108 96 - 110 mmol/L LAB CHEMISTRY METHOD 08/22/2024 9:02 AM [facility] CO2 23 21 - 32 mmol/L LAB CHEMISTRY METHOD 08/22/2024 9:02 AM [facility] Anion Gap 8 3 - 11 LAB CHEMISTRY METHOD 08/22/2024 9:02 AM [facility] Glucose 116(H) 70 - 100 mg/dL LAB CHEMISTRY METHOD 08/22/2024 9:02 AM [facility] BUN 47(H) 5 - 25 mg/dL LAB CHEMISTRY METHOD 08/22/2024 9:02 AM [facility] Creatinine 3.05(H) 0.70 - 1.30 mg/dL LAB CHEMISTRY METHOD 08/22/2024 9:02 AM [facility] eGFR 22(L) >=60 mL/min/1. 73m2 LAB CHEMISTRY METHOD 08/22/2024 9:02 AM [facility] LAB Comment:Calculation based on the Chronic Kidney Disease Epidemiology Collaboration (CKD-EPI) equation refit without adjustment for race. BUN/Creatinine Ratio 15.4 LAB CHEMISTRY METHOD 08/22/2024 9:02 AM [facility] Calcium 8.8 8.5 - 10.5 mg/dL LAB CHEMISTRY METHOD 08/22/2024 9:02 AM [facility] AST (SGOT) 13 10 - 42 unit/L LAB CHEMISTRY METHOD 08/22/2024 9:02 AM [facility] ALT (SGPT) 19 10 - 60 unit/L LAB CHEMISTRY METHOD 08/22/2024 9:02 AM [facility] Alkaline Phosphatase 80 42 - 121 unit/L LAB CHEMISTRY METHOD 08/22/2024 9:02 AM [facility] Total Protein 6.4 6.0 - 8.0 g/dL LAB CHEMISTRY METHOD 08/22/2024 9:02 AM [facility] Albumin 3.1(L) 3.2 - 5.0 g/dL LAB CHEMISTRY METHOD 08/22/2024 9:02 AM [facility] Total Bilirubin 0.4 0.0 - 1.4 mg/dL LAB CHEMISTRY METHOD 08/22/2024 9:02 AM EST [facility] Blood Venous blood specimen / Unknown Venipuncture / Unknown 08/22/2024 5:16 AM EST 08/22/2024 7:22 AM EST us Travis Au MD LAB BLOOD ORDERABLES Final Resul t [facility]) [facility] [address] [place] [address], documented in this encounter Visit Diagnoses Diagnosis Type 2 diabetes mellitus without complications (CMS/HCC V24, CMS/HCC V28) Unspecified atrial fibrillation (CMS/HCC V24, CMS/HCC V28) documented in this encounter Care Teams Supervisor Beam Department Relationship Specialty Start Date End Date Travis Au MD [address] [place] [address], [phone] PCP - General Family Medicine 08/22/24 documented as of this encounter
--- OUTSIDE RECORDS SUMMARY | 2025-08-17 08:02 | XMS_ITS | Encounter Summary ---
Author Organization [facility] [place] [facility] Address [address] [place] [address] Care Team Providers Care Events Specialist Name Role Phone Travis Au MD Primary Care Provider [phone] Encounter Details Date Type Department Care Team (Late st Contact Info) Description 10/03/2024 Lab Requisition [facility] - Main Lab [address] [facility] [place] [address] Brandon Mckeon MD [address] [place] [address] Hyperkalemia; Hypertensive urgency Social History [...] LAB CHEMISTRY METHOD 10/03/2024 9:47 AM EST [facility] ([facility]) [facility] Potassium 5.6(H) 3.5 - 5.5 mmol/L LAB CHEMISTRY METHOD 10/03/2024 9:47 AM [facility] LAB Chloride 109 96 - 110 mmol/L LAB CHEMISTRY METHOD 10/03/2024 9:47 AM [facility] LAB CO2 20(L) 21 - 32 mmol/L LAB CHEMISTRY METHOD 10/03/2024 9:47 AM [facility] LAB Anion Gap 6 3 - 11 LAB CHEMISTRY METHOD 10/03/2024 9:47 AM [facility] Glucose 111(H) 70 - 100 mg/dL LAB CHEMISTRY METHOD 10/03/2024 9:47 AM [facility] BUN 58(H) 5 - 25 mg/dL LAB CHEMISTRY METHOD 10/03/2024 9:47 AM [facility] Creatinine 2.91(H) 0.70 - 1.30 mg/dL LAB CHEMISTRY METHOD 10/03/2024 9:47 AM [facility] LAB eGFR 23(L) >=60 mL/min/1. 73m2 LAB CHEMISTRY METHOD 10/03/2024 9:47 AM [facility] LAB Comment:Calculation based on the Chronic Kidney Disease Epidemiology Collaboration (CKD-EPI) equation refit without adjustment for race. BUN/Creatinine Ratio 19.9 LAB CHEMISTRY METHOD 10/03/2024 9:47 AM [facility] Calcium 8.5 8.5 - 10.5 mg/dL LAB CHEMISTRY METHOD 10/03/2024 9:47 AM [facility] AST (SGOT) 14 10 - 42 unit/L LAB CHEMISTRY METHOD 10/03/2024 9:47 AM [facility] ALT (SGPT) 20 10 - 60 unit/L LAB CHEMISTRY METHOD 10/03/2024 9:47 AM [facility] Alkaline Phosphatase 57 42 - 121 unit/L LAB CHEMISTRY METHOD 10/03/2024 9:47 AM [facility] Total Protein 6.5 6.0 - 8.0 g/dL LAB CHEMISTRY METHOD 10/03/2024 9:47 AM EST [facility] LAB Albumin 3.0(L) 3.2 - 5.0 g/dL LAB CHEMISTRY METHOD 10/03/2024 9:47 AM EST [facility] Total Bilirubin 0.2 0.0 - 1.4 mg/dL LAB CHEMISTRY METHOD 10/03/2024 9:47 AM [facility] Blood Venous blood specimen / Unknown Venipuncture / Unknown 10/03/2024 5:32 AM EST 10/03/2024 8:56 AM EST us Brandon Mckeon MD LAB BLOOD ORDERABLES Final Resu lt [facility] [address] [place] [address], [place] [phone] * (ABNORMAL) Complete blood count (10/03/2024 5:32 AM EST) WBC 10.1 4.8 - 10.8 K/mcL LAB HEMETOLOGY METHOD 10/03/2024 9:20 AM [facility] RBC 3.10(L) 4.50 - 5.50 M/mcL LAB HEMETOLOGY METHOD 10/03/2024 9:20 AM [facility] Hemoglobin 9.3(L) 13.5 - 17.5 g/dL LAB HEMETOLOGY METHOD 10/03/2024 9:20 AM [facility] Hematocrit 29.4(L) 42.0 - 54.0 % LAB HEMETOLOGY METHOD 10/03/2024 9:20 AM [facility] MCV 95.8 79.0 - 98.0 FL LAB HEMETOLOGY METHOD 10/03/2024 9:20 AM [facility] MCH 30.3 27.0 - 32.0 pcg LAB HEMETOLOGY METHOD 10/03/2024 9:20 AM [facility] MCHC 31.6(L) 32.0 - 37.0 g/dL LAB HEMETOLOGY METHOD 10/03/2024 9:20 AM EST [facility] RDW 13.7 11.0 - 15.0 % LAB HEMETOLOGY METHOD 10/03/2024 9:20 AM [facility] Platelets 281 130 - 400 K/mcL LAB HEMETOLOGY METHOD 10/03/2024 9:20 AM EST [facility] MPV 10.4 7.0 - 11.0 FL LAB HEMETOLOGY METHOD 10/03/2024 9:20 AM EST [facility] NRBC 0.0 <1.0 % LAB HEMETOLOGY METHOD 10/03/2024 9:20 AM [facility] NRBC Absolute 0.00 <0.10 K/mcL LAB HEMETOLOGY METHOD 10/03/2024 9:20 AM EST [facility] Blood Venous blood specimen / Unknown Venipuncture / Unknown 10/03/2024 5:32 AM EST 10/03/2024 8:56 AM EST us Brandon Mckeon MD LAB BLOOD ORDERABLES Final Resu lt [facility] [address] [place] [address], documented in this encounter Visit Diagnoses Diagnosis Hyperkalemia Hyperpotassemia Hypertensive urgency documented in this encounter Care Teams Events Specialist Relationship Specialty Start Date End Date Travis Au MD [address] [place] [address], [phone] PCP - General Family Medicine 08/22/24 documented as of this encounter
--- OUTSIDE RECORDS SUMMARY | 2025-08-17 08:02 | XMS_ITS | Encounter Summary ---
Author Organization [facility] Address [address] [place] [address] Care Team Providers Care Returns Processor Name Role Phone Travis Au MD Primary Care Provider [phone] Encounter Details Date Type Department Care Team (Late st Contact Info) Description 10/18/2024 Lab Requisition [facility] - Main Lab [address] [place] [address] Travis Au MD [address] [place] [address] [address] [facility] [phone] Type 2 diabetes mellitus without [...] LAB CHEMISTRY METHOD 10/19/2024 8:44 AM EST [facility] Potassium 4.6 3.5 - 5.5 mmol/L LAB CHEMISTRY METHOD 10/19/2024 8:44 AM [facility] Chloride 109 96 - 110 mmol/L LAB CHEMISTRY METHOD 10/19/2024 8:44 AM [facility] CO2 21 21 - 32 mmol/L LAB CHEMISTRY METHOD 10/19/2024 8:44 AM [facility] Anion Gap 9 3 - 11 LAB CHEMISTRY METHOD 10/19/2024 8:44 AM [facility] Glucose 167(H) 70 - 100 mg/dL LAB CHEMISTRY METHOD 10/19/2024 8:44 AM [facility] BUN 61(H) 5 - 25 mg/dL LAB CHEMISTRY METHOD 10/19/2024 8:44 AM [facility] Creatinine 3.42(H) 0.70 - 1.30 mg/dL LAB CHEMISTRY METHOD 10/19/2024 8:44 AM [facility] eGFR 19(L) >=60 mL/min/1. 73m2 LAB CHEMISTRY METHOD 10/19/2024 8:44 AM [facility] LAB Comment:Calculation based on the Chronic Kidney Disease Epidemiology Collaboration (CKD-EPI) equation refit without adjustment for race. BUN/Creatinine Ratio 17.8 LAB CHEMISTRY METHOD 10/19/2024 8:44 AM [facility] Calcium 8.3(L) 8.5 - 10.5 mg/dL LAB CHEMISTRY METHOD 10/19/2024 8:44 AM [facility] Blood Venous blood specimen / Unknown Venipuncture / Unknown 10/19/2024 5:45 AM EST 10/19/2024 8:08 AM EST us Travis Au MD LAB BLOOD ORDERABLES Final Resul t [facility] [address] [place] [address], * (ABNORMAL) Complete blood count (10/19/2024 5:45 AM EST) [facility] WBC 10.6 4.8 - 10.8 K/mcL LAB HEMETOLOGY METHOD 10/19/2024 8:25 AM [facility] RBC 3.10(L) 4.50 - 5.50 M/mcL LAB HEMETOLOGY METHOD 10/19/2024 8:25 AM [facility] Hemoglobin 9.2(L) 13.5 - 17.5 g/dL LAB HEMETOLOGY METHOD 10/19/2024 8:25 AM [facility] Hematocrit 28.5(L) 42.0 - 54.0 % LAB HEMETOLOGY METHOD 10/19/2024 8:25 AM [facility] MCV 92.2 79.0 - 98.0 FL LAB HEMETOLOGY METHOD 10/19/2024 8:25 AM [facility] MCH 29.8 27.0 - 32.0 pcg LAB HEMETOLOGY METHOD 10/19/2024 8:25 AM [facility] MCHC 32.3 32.0 - 37.0 g/dL LAB HEMETOLOGY METHOD 10/19/2024 8:25 AM [facility] RDW 13.7 11.0 - 15.0 % LAB HEMETOLOGY METHOD 10/19/2024 8:25 AM [facility] Platelets 221 130 - 400 K/mcL LAB HEMETOLOGY METHOD 10/19/2024 8:25 AM [facility] MPV 10.8 7.0 - 11.0 FL LAB HEMETOLOGY METHOD 10/19/2024 8:25 AM [facility] NRBC 0.0 <1.0 % LAB HEMETOLOGY METHOD 10/19/2024 8:25 AM [facility] NRBC Absolute 0.00 <0.10 K/mcL LAB HEMETOLOGY METHOD 10/19/2024 8:25 AM EST [facility] Blood Venous blood specimen / Unknown Venipuncture / Unknown 10/19/2024 5:45 AM EST 10/19/2024 8:08 AM EST us Travis Au MD LAB BLOOD ORDERABLES Final Resul t [facility] [address] [place] [address], documented in this encounter Visit Diagnoses Diagnosis Type 2 diabetes mellitus without complications (CMS/HCC V24, CMS/HCC V28) documented in this encounter Care Teams Returns Processor Relationship Specialty Start Date End Date Travis Au MD [address] [place] [address], [phone] PCP - General Family Medicine 08/22/24 documented as of this encounter
[2025-08-17 08:11] VITALS: BP 130/64; PULSE 66
--- NOTE | 2025-08-17 08:11 | MHC.OFFVIS ---
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 blood-glucose meter (FreeStyle Lite Meter kit) As Directed dapagliflozin propanediol (Farxiga) 10 mg PO DAILY finasteride 5 mg PO DAILY furosemide 80 mg See Protocol PO BID@0900,1800 hydralazine 50 mg PO TID PRN insulin lispro (Humalog KwikPen (U-100) Insulin) See Protocol sliding scale doses subcut QIDACHS PRN lancets (FreeStyle Lancets) Test four times a day or as directed. linezolid 600 mg PO Q12H lisinopril 2.5 mg See Protocol PO DAILY@1645 metoprolol succinate ER 100 mg PO DAILY pen needle, diabetic Use four times a day or as directed. rivaroxaban (Xarelto) 2.5 mg PO BID tamsulosin 0.4 mg PO DAILY umeclidinium 62.5 mcg/actuation (Incruse Ellipta) 1 inh inhalation DAILY HPI HPI f/u of a cath: Details: Renato is a 65-year-old male with past medical history of diabetes, hyperlipidemia, CKD, COPD, right BKA, left great toe recent amputation, newer finding of Congestive heart failure, cardiomyopathy, chronic kidney disease who was recently admitted with anemia and found to have elevated troponins, acute on chronic kidney disease. Outpatient ischemic evaluation shows abnormal nuclear stress test, cardiac catheterization showing three-vessel coronary artery disease. He was evaluated by surgery and not a surgical candidate. He had a repeat catheterization and stenting to the proximal RCA and mid LAD. He now presents for follow-up. Today he reports that he has been feeling much better. His breathing is more comfortable and he is not short of breath with doing light activities. He has never had chest discomfort. He has more energy and has a better outlook on things. No heart palpitations, lightheadedness, presyncope, syncope, falls. No PND, orthopnea. He get mild left lower leg swelling. He still has a wound on his left foot but states it is healing. He has been attending dialysis 3 times weekly. He has been taking all meds as directed. He follows closely with Dr. Ruiz for Nephrology and Dr. Yin for vascular. [facility] Medical History Chronic kidney disease (CKD), stage 5 Metabolic acidosis CKD (chronic kidney disease) stage 5, GFR less than 15 ml/min Anemia in chronic kidney disease (CKD) Hypertension CKD (chronic kidney disease) stage 4, GFR 15-29 ml/min Fluid overload Acute and chronic respiratory failure Sepsis Acute dehydration New onset of congestive heart failure Pneumonia Urinary urgency Urinary tract infection Urinary hesitancy Tubular adenoma of colon Smoker Seborrheic keratoses SND (sensorineural deafness) Right BKA infection Peripheral vascular disease WENDY (obstructive sleep apnea) Microalbuminuria Lung nodule seen on imaging study Lightheadedness Latent tuberculosis LVH (left ventricular hypertrophy) Abnormal PFTs Hyponatremia Hypertensive retinopathy of both eyes Hyperkalemia Hepatitis C Hearing loss of both ears Erectile dysfunction Cataract CKD (chronic kidney disease) Bladder wall thickening BPH (benign prostatic hyperplasia) Anticoagulated Anemia Peripheral neuropathy Diabetes mellitus, type II CVA (cerebral vascular accident) Adrenal nodule Kidney cysts Surgical History Hx of right BKA Family History Brother Diabetes Mother Diabetes Father Diabetes Social History Household Members: Spouse Household Members Other:: ex- Housing: Apartment Do you presently have visiting nurse or other home services: Yes Alcohol intake: never Patient Tobacco Use Status: Former Tobacco user Tobacco use type: Cigarette e-Cigarette/Vaping Use: Former Use Advance Directives Date on File: 06/19/25 service: No Review of Systems Const All systems reviewed & are unremarkable except as noted in HPI and below ENT Denies dizziness Card Denies chest pain, Denies chest pain at rest, Denies chest pain with activity, Denies rapid heart rate, Denies pedal edema, Denies edema, Denies leg edema, Denies lightheadedness, Denies palpitations, Denies dyspnea, Denies dyspnea on exertion and Denies orthopnea Resp Denies cough, Denies dyspnea and Denies dyspnea on exertion GI Denies hematochezia and Denies change in stool character Musc Denies abnormal gait, Denies limited range of motion, Denies muscle cramps, Denies muscle weakness, Denies numbness, Denies radiating pain into limb, Denies stiffness and Denies tingling Neuro Denies abnormal gait, Denies dizziness, Denies numbness and Denies tingling Endo Denies palpitations Physical Exam Vital Signs: Last Vital Signs Pulse 66 08/17/25 08:11 BP 130/64 08/17/25 08:11 Const Other: sitting in wheelchair General: cooperative, healthy appearing, comfortable and no acute distress Orientation/consciousness: patient oriented x3 Neck Neck: Yes normal visual inspection Resp Effort & Inspection: normal respiratory effort Auscultation: clear to auscultation bilaterally, no rales, no rhonchi and no wheezes Cardio Jugular venous distension: no JVD Rate: regular rate Rhythm: regular rhythm Heart sounds: S1 normal heart sound present, S2 normal heart sound present, no murmurs and no rubs Neuro General: patient oriented x3 Extrem Other: Rright BKA Right femoral pulse with easily palpable femoral pulse, nontender General: No no pedal edema Psych Appearance: grossly normal Mental Status: mental status grossly normal Speech and movement: Normal speech and movement present Results Reviewed Results Reviewed: - Nuclear stress test (07/11/2025): Moderate to severe ischemia in three-vessel territory - Cardiac catheterization (08/01/2025): 90% stenosis in RCA, diffuse disease, no significant left main disease - Repeat catheterization (08/10/2025): Stenting of proximal RCA and mid-LAD - Holter monitor (07/11/2025): Sinus rhythm, rare SVE, short runs, rare ventricular ectopy, accelerated idioventricular rhythm - Echocardiogram (06/12/2025): EF 20-25%, grade 3 diastolic dysfunction, moderate left atrial enlargement Assessment & Plan Assessment & Plan (1) CAD (coronary artery disease): Code(s): I25.10 - Atherosclerotic heart disease of [place] coronary artery without angina pectoris Category: Medical Plan: Ischemic eval for Congestive heart failure, cardiomyopathy and NSTEMI. Nuclear stress test was suggestive of three-vessel coronary artery disease. Cardiac catheterization done confirming three-vessel disease, primarily RCA and LAD. He was referred to Cardiac surgery and deemed not a surgical candidate. He had repeat catheterization on 08/10/2025 with stenting of the proximal RCA and mid LAD. At this time he is reporting improved breathing and energy levels. Continue aspirin indefinitely. Continue Plavix uninterrupted for at least 1 year. He was taken off low-dose Xarelto. Continue atorvastatin with ideal LDL goal less than 70. Continue hydralazine, lisinopril, metoprolol for good blood pressure control. Will start in cardiac rehab. (2) S/P cardiac cath: Comment: 08/01/25 right dominant circulation, ostial right coronary artery 90% stenosis, diffuse calcification through vessel, 40% ostial RPLV stenosis, no significant left main disease, ostial and proximal circumflex 50-60% stenosis, ostial OM to 70% stenosis, om 3 mid segment 60-70% stenosis, mid LAD 70% stenosis, ostial diagonal 70% stenosis He was evaluated by surgery and deemed not a surgical candidate. 08/10/2025 PCI, JUANI to the proximal RCA and mid LAD Code(s): Z98.890 - Other specified postprocedural states Category: Surgical Plan: Right femoral site well healed (3) New onset of congestive heart failure: Code(s): I50.9 - Heart failure, unspecified Category: Medical Plan: New onset Congestive heart failure noted during February 2025 hospitalization with acute on chronic respiratory failure/COPD. His echocardiogram did show EF 40-45%, moderate LVH, abnormal diastolic function, elevated filling pressures. He did have CKD, end-stage renal disease and has since started dialysis. He did have readmission in April with anemia, NSTEMI and repeat echocardiogram showed EF 35-40%. For this reason he underwent an ischemic evaluation showing significant coronary artery disease. His last echo prior 06/12/2025 to coronary stenting had shown EF down to 20-25%. He was recently revascularized as above. On exam today he is not fluid overloaded. He continues on Lasix 80 mg b.i.d.. He attends dialysis 3 times weekly. He is on metoprolol XL, lisinopril and Farxiga for neurohormonal modulation. Signs and symptoms of heart failure reviewed with him. Continue to follow with Nephrology. (4) Cardiomyopathy: Code(s): I42.9 - Cardiomyopathy, unspecified Category: Medical Plan: EF initially found to be EF 40-45%, with moderate LVH. It it was thought to be related hypertension however ischemic eval showed significant CAD. Last EF 20-25%. He has undergone coronary stenting and a repeat limited echo will be checked prior to his next visit. (5) Anemia in chronic kidney disease (CKD): Code(s): N18.9 - Chronic kidney disease, unspecified; D63.1 - Anemia in chronic kidney disease Category: Medical Qualifiers: Chronic kidney disease stage: stage 4 (GFR 15-29) Qualified Code(s): N18.4 - Chronic kidney disease, stage 4 (severe); D63.1 - Anemia in chronic kidney disease Plan: He has anemia of chronic disease and has had transfusions in the past. Most recent labs 07/11/2023 showing hemoglobin 8.3. No signs of active bleeding. (6) CKD (chronic kidney disease) stage 4, GFR 15-29 ml/min: Code(s): N18.4 - Chronic kidney disease, stage 4 (severe) Category: Medical Plan: Following with Dr. Ruiz, nephrology. Labs today show creatinine 7.68. Patient's significant other does state that they are discussing possible dialysis. (7) PAC (premature atrial contraction): Code(s): I49.1 - Atrial premature depolarization Category: Medical Plan: Concern for possible atrial fibrillation and thought to have sinus rhythm with frequent PACs. Holter monitor did show sinus rhythm with average heart rate 72 with SVE, short runs 18 beats. He is denying heart palpitations. Continue metoprolol. Plan I discussed with the patient the importance of maintaining low cholesterol levels and adhering to medications to prevent stent occlusion. We reviewed the need for cardiac rehabilitation to improve cardiovascular health and the importance of regular follow-up appointments. I emphasized the significance of medication adherence for managing diabetes and hyperlipidemia. Orders: Orders Lipid Panel Today I25.10 - Atherosclerotic heart disease of [place] coronary artery without angina pectoris Comprehensive Met. Panel Today I25.10 - Atherosclerotic heart disease of [place] coronary artery without angina pectoris Cardiac Rehab Today I21.4 - Non-ST elevation (NSTEMI) myocardial infarction, Z95.5 - Presence of coronary angioplasty implant and graft CA Echo Limited 2 Months I42.9 - Cardiomyopathy, unspecified Patient Instructions: - Maintain a low cholesterol diet and adhere to prescribed medications. - Attend cardiac rehabilitation sessions as scheduled. - Continue dialysis sessions three times a week. - Monitor for any chest discomfort or breathing difficulties and report immediately. - Follow up in three months or sooner if needed. Patient was informed and verbally consented to the use of an ambient scribe for clinic note documentation during this visit. Visit time spent on chart review, interview, assessment, orders, documentation. Coding Level of Care Code Est Pt Level 4 (83867) Complex EM visit Add On G2211 Diagnoses CAD (coronary artery disease) I25.10 S/P cardiac cath Z98.890 New onset of congestive heart failure I50.9 Cardiomyopathy I42.9 Anemia in stage 4 chronic kidney disease N18.4; D63.1 Chronic kidney disease stage: stage 4 (GFR 15-29) CKD (chronic kidney disease) stage 4, GFR 15-29 ml/min N18.4 PAC (premature atrial contraction) I49.1 Time Spent (min) 36
== END 2025-08-17 08:39 | disposition home or self-care (01) ==
LOC: HO.HCS 07:59
PROVIDERS: PCP Internal Medicine; Visit Provider Nurse Practitioner Family
DX: I25.10 Atherosclerotic heart disease of native coronary artery without angina pectoris (principal); Z98.890 Other specified postprocedural states; I50.9 Heart failure, unspecified; I42.9 Cardiomyopathy, unspecified; N18.4 Chronic kidney disease, stage 4 (severe); D63.1 Anemia in chronic kidney disease; I49.1 Atrial premature depolarization
CPT/HCPCS: 99214; G2211

== ENCOUNTER → 2025-08-17 07:58 | Outpatient (BNVA) | payer OTHER, SELFPAY | PROVIDERS: PCP Internal Medicine; Visit Provider Nurse Practitioner Family | DX: I42.9 Cardiomyopathy, unspecified (principal); I49.1 Atrial premature depolarization; I25.10 Atherosclerotic heart disease of native coronary artery without angina pectoris; I10 Essential (primary) hypertension; N18.4 Chronic kidney disease, stage 4 (severe); E63.1 Imbalance of constituents of food intake; Z95.5 Presence of coronary angioplasty implant and graft; Z98.890 Other specified postprocedural states | CPT/HCPCS: 99212 ==

== ENCOUNTER → 2025-09-04 23:59 | Outpatient (BNV) | payer OTHER, SELFPAY | PROVIDERS: PCP Internal Medicine; Visit Provider Internal Medicine Nephrology | DX: N18.6 End stage renal disease (principal) | CPT/HCPCS: 90961 ==